=== PATIENT | male | born 1965 | race Caucasian/White ===

== ENCOUNTER 2016-11-12 11:15 | Inpatient (IN) | payer OTHER ==
[2016-11-12 11:52] VITALS: BMI 22.7
[2016-11-12 14:19] LABS: BASOPHIL 0.5 % (0-2.0); EOSINOPHIL 0.1 % (0-4.5); MCH 21.5 pg (25.7-33.7); MCHC 31.2 g/dl (32.0-35.9); MEAN PLT VOLUME 7.2 fl (7.5-11.1); NEUTROPHILS 86.2 % (42.8-82.8); PLATELET COUNT 392 K/MM3 (134-434); RDW 19.6 % (11.9-15.9); WHITE BLOOD COUNT 19.5 K/mm3 (4.0-10.0)
--- NOTE | 2016-11-12 14:27 | PDOC ---
History of Present Illness - General History Source: Patient Exam Limitations: No Limitations, Other (level T6 paraplegic, with no sensation below level T6) - History of Present Illness Initial Comments: 51yo M with PMH of level T6 paraplegia and recurrent UTIs presents c/o cough and malaise x 10 days. Cough is nonproductive. Pt reports malaise waxing and waning over the past 10 days. His symptoms are not worsening, but he presents to the ER today because he knows he is sick. Pt reports cloudy urine in permanent hull bag, and believes he has a UTI 2/2 hx of recurrent UTIs. Pt denies sick contacts, fever, chills, hemoptysis, chest pain, SOB, nausea, vomiting, constipation, diarrhea. Severity: mild Associated Symptoms: reports: cough, malaise. denies: chest pain, fever/chills , nausea/vomiting, shortness of breath, weakness <Jasmine Pandey - Last Filed: 11/12/16 18:09> <Denys Garner - Last Filed: 11/13/16 09:55> - General Chief Complaint: Respiratory Stated Complaint: cough, malaise Time Seen by Provider: 11/12/16 12:54 Past History - Past Medical History Anemia: Yes Asthma: No Cancer: No Cardiac Disorders: No CVA: No COPD: Yes CHF: No Dementia: No Diabetes: No GI Disorders: Yes (neurogenic bowel with persistent obstipation, GI bleed, cholelithiasis) Disorders: Yes (neurogenic bladder, UTIs, permanent hull) HTN: No Hypercholesterolemia: No Kidney Stones: Yes (haley staghorn calculi, haley stents) Liver Disease: No Seizures: No Thyroid Disease: No - Surgical History Abdominal Surgery: No Appendectomy: No Cardiac Surgery: No Cholecystectomy: No Lung Surgery: No Neurologic Surgery: No Orthopedic Surgery: Yes - Family Disease History Family Disease History: Diabetes: Mother, Heart Disease: Father - Immunization History Immunization Up to Date: Yes - Psycho/Social/Smoking Cessation Hx Anxiety: No Suicidal Ideation: No Smoking Status: Yes Smoking History: Current every day smoker Years of Tobacco Use: 35 Have you smoked in the past 12 months: Yes Number of Cigarettes Smoked Daily: 10 Information on smoking cessation initiated: No 'Breaking Loose' booklet given: 06/08/15 Hx Alcohol Use: No Drug/Substance Use Hx: No Substance Use Type: None Hx Substance Use Treatment: No Comments:: lives with mother. 11/12/16 14:32 <Jasmine Pandey - Last Filed: 11/12/16 18:09> <PascualDenys - Last Filed: 11/13/16 09:55> - Past Medical History Allergies/Adverse Reactions: Allergies Allergy/AdvReac Type Severity Reaction Status Date / Time polymyxin B AdvReac Mild Itching Verified 11/12/16 19:30 Home Medications: Ambulatory Orders Acetaminophen [Tylenol .Regular Strength -] 650 mg PO Q6H PRN #0 tablet Mineral Oil - 30 ml PO DAILY PRN #300 ml 11/04/15 Review of Systems - Review of Systems Able to Perform ROS?: Yes Constitutional: Yes: Malaise, Weight Stable. No: Chills, Fever, Weakness HEENTM: No: Eye Pain, Recent change in vision, Ear Pain, Nose Pain, Throat Pain , Mouth Pain Respiratory: Yes: Cough, Wheezing. No: Orthopnea, Shortness of Breath, Stridor , Hemoptysis Cardiac (ROS): No: Chest Pain, Edema, Irregular Heart Rate, Lightheadedness, Palpitations, Chest Tightness ABD/GI: No: Abd. Pain w/ defecation, Constipated, Diarrhea, Nausea, Vomiting : No: Hematuria Musculoskeletal: Yes: Back Pain (musculoskeletal pain between shoulder blades). No: Joint Pain, Muscle Pain, Neck Pain Neurological: Yes: Pre-Existing Deficit (level T6 paraplegia) <Jasmine Pandey - Last Filed: 11/12/16 18:09> *Physical Exam - Vital Signs Last Vital Signs Temp Pulse Resp BP Pulse Ox 98.8 F 87 16 130/78 96 11/12/16 11:41 11/12/16 11:41 11/12/16 11:41 11/12/16 11:41 11/12/16 11:41 - Physical Exam General Appearance: Yes: Mild Distress, Thin HEENT: positive: EOMI, Normal Voice, Other (moist mucous membranes). negative: Pale Conjunctivae Neck: positive: Trachea midline, Supple. negative: Carotid bruit Respiratory/Chest: negative: Accessory Muscle Use (inspiratory/expiratory wheezing throughout Right lung, Left lung clear to auscultation ) Cardiovascular: positive: Regular Rhythm, Regular Rate, Murmur (2/6 holosystolic murmur appreciated) Gastrointestinal/Abdominal: negative: Tender (firm, perhaps some stool in LLQ), Distended, Guarding Musculoskeletal: positive: Other (level T6 paraplegia, with paralysis below level T6. Upper extremeties with normal ROM.) Neurologic: positive: Fully Oriented, Alert, Normal Mood/Affect <Jasmine Pandey - Last Filed: 11/12/16 18:09> - Vital Signs Last Vital Signs Temp Pulse Resp BP Pulse Ox 99.9 F H 95 H 20 96/55 96 11/13/16 09:18 11/13/16 09:18 11/13/16 09:18 11/13/16 09:18 11/12/16 22:00 <Denys Garner - Last Filed: 11/13/16 09:55> ED Treatment Course - LABORATORY CBC & Chemistry Diagram: 11/12/16 Unknown 11/12/16 Unknown - RADIOLOGY Radiology Studies Ordered: Category Date Time Status CXRPORT [CHEST X-RAY PORTABLE*] [RAD] Stat Radiology 11/12/16 12:44 Completed Chest X-Ray Result: Other (no interval change since 10/2015 study. pre-existing extensive haley pulmonary calcifications noted. no evidence of CHF, pleural effusion, or acute consolidation.) <Jasmine Pandey - Last Filed: 11/12/16 18:09> - LABORATORY CBC & Chemistry Diagram: 11/13/16 09:05 11/12/16 Unknown - Medications Given in the ED: ED Medications Discontinued Medications Generic Name Dose Route Start Last Admin Trade Name Eli PRN Reason Stop Dose Admin Ertapenem 1 gm 11/12/16 16:30 11/12/16 16:49 Invanz (Pre-Docked) IVPB 1 gm DAILY GISEL Administration Vancomycin HCl 1,250 mg/ 250 mls @ 250 mls/hr 11/12/16 17:00 11/12/16 17:01 Dextrose IVPB 250 mls/hr BID GISEL Administration Protocol Vancomycin HCl 1,250 mg/ 250 mls @ 250 mls/hr 11/13/16 05:00 11/13/16 05:08 Dextrose IVPB 11/13/16 05:59 250 mls/hr ONCE ONE Administration Protocol <Denys Garner - Last Filed: 11/13/16 09:55> Medical Decision Making - Medical Decision Making 51yo M current smoker with PMH of level T6 paraplegia and recurrent UTIs presents c/o cough and malaise x 10 days. Cough is nonproductive. Denies hemoptysis, orthopnea, SOB, chest pain, fever, sick contacts. Pt reports he also likely has a UTI as his urine is cloudy. Pt is paralyzed below level of T6 and cannot report tenderness on physical exam below this level. Abdomen felt firm on exam, perhaps some stool present in LLQ. Pt denies constipation and reports regular BMs yesterday and today. Also on exam, a 2/6 holosystolic murmur was appreciated. Echo results pending. ER Course: CXR (-) for acute pulmonary disease CBC with diff, CMP, blood cultures, U/A, urine cultures Echo ordered 11/12/16 14:59 11/12/16 16:20 CBC with diff reveals leukocytosis (19.5) with left shift (neutrophils 86.2). U/A reveals (+) UTI. Urine culture pending. Vancomycin 1250mg IVPB BID and Ertapenem 1g IVPB daily ordered. <Jasmine Pandey - Last Filed: 11/12/16 18:09> *DC/Admit/Observation/Transfer - Discharge Dispostion Admit: Yes <Jasmine Pandey - Last Filed: 11/12/16 18:09> - Attestations Physician Attestion: 11/13/16 09:55 I, Dr. Denys Garner MD, attest that this document has been prepared under my direction and personally reviewed by me in its entirety. I further attest, that it accurately reflects all work, treatment, procedures and medical decision -making performed by me. 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 House, who accepted adm.
[2016-11-12 14:48] LABS: ANISOCYTOSIS 1+; HYPOCHROMIA 3+; MICROCYTOSIS 1+
[2016-11-12 14:59] LABS: ALBUMIN 2.2 g/dl (3.4-5.0); ANION GAP 11 (8-16); BILIRUBIN,TOTAL 0.4 mg/dL (0.2-1.0); CALCIUM 8.3 mg/dL (8.5-10.1); CO2 25 mmol/L (21-32); CREATININE 1.2 mg/dL (0.7-1.3); GLUCOSE,RANDOM 138 mg/dL (74-106); SGOT/AST 21 U/L (15-37); SGPT/ALT 23 U/L (12-78); TOT PROT 7.4 g/dl (6.4-8.2)
[2016-11-12 15:00] LABS: ALK PHOS 128 U/L (45-117)
[2016-11-12 15:46] LABS: URINE APPEARANCE CLOUDY; URINE BILIRUBIN NEGATIVE (NEGATIVE); URINE BLOOD 2+ (NEGATIVE); URINE COLOR AMBER; URINE GLUCOSE (UA) NEGATIVE (NEGATIVE); URINE KETONE NEGATIVE (NEGATIVE); URINE NITRITE POSITIVE (NEGATIVE); URINE UROBILINOGEN NEGATIVE mg/dL (0.2-1.0)
[2016-11-12 15:47] LABS: URINE LEUK ESTERASE 3+ (NEGATIVE); URINE PROTEIN 2+ (NEGATIVE)
[2016-11-12 15:52] LABS: URINE BACTERIA MANY /hpf (NONE SEEN); URINE RBC 39 /hpf (0-3); URINE WBC 1649 /hpf (3-5)
--- NOTE | 2016-11-12 16:21 | PDOC ---
Attending Attestation - Resident Resident Name: David Pandeya - ED Attending Attestation I have performed the following: I have examined & evaluated the patient, The case was reviewed & discussed with the resident, I agree w/resident's findings & plan, Exceptions are as noted - HPI HPI: 11/12/16 18:27 51 M with h/o T6 paraplegia and recurrent UTIs presents to ER with generalized malaise. Pt states that he has had some chills, as well as a dry cough. He denies any CP/SOB. Denies abdominal pain or flank pain but states that he is unable to feel anything below his chest. Pt has indwelling hull and has recurrent UTIs. Pt states that he feels as though he has another UTI. Denies N/ V. Denies diarrhea/constipation. - Physicial Exam PE: 11/12/16 18:29 "GENERAL: Awake, alert, and fully oriented, in no acute distress HEAD: No signs of trauma EYES: PERRLA, EOMI, sclera anicteric, conjunctiva clear ENT: Auricles normal inspection, hearing grossly normal, nares patent, oropharynx clear without exudates. Moist mucosa NECK: Normal ROM, supple, no lymphadenopathy, JVD, or masses LUNGS: Breath sounds equal, clear to auscultation bilaterally. No wheezes, and no crackles HEART: Regular rate and rhythm, normal S1 and S2, no murmurs, rubs or gallops ABDOMEN: Soft, NONTENDER, normoactive bowel sounds. No guarding, no rebound. No masses EXTREMITIES: Normal range of motion, no edema. No clubbing or cyanosis. No cords, erythema, or tenderness NEUROLOGICAL: Cranial nerves II through XII grossly intact. normal speech, paraplegic SKIN: Warm, Dry, normal turgor, no rashes or lesions noted. " - Medical Decision Making 11/12/16 18:31 51 M with cough and generalized malaise. Concerning for infectious process, though pt with stable vitals. Likely UTI. Will also r/o PNA with CXR. Pt with soft abdomen, having normal BMs. - Labs, UA, cultures - CXR 11/12/16 18:32 Labs notable for UTI. Will start ertapenem and vancomycin based on prior sensitivities. Will need admission for IV abx and ID consult, as pt has grown zayas-resistant pseudomonas in prior urine cultures. Admit to hospitalist
[2016-11-12] MEDS ORDERED: ERTAPENEM SODIUM 1 GM/50 ML PRE-DOCKED IVPB SCH (16:30)
[2016-11-12] MEDS ORDERED: ERTAPENEM SODIUM 1 GM VIAL ONE (16:42)
[2016-11-12] MEDS ORDERED: VANCOMYCIN 1,250 MG in DEXTROSE 5%-WATER - 250 ML IVPB SCH ×2 (17:00→22:00)
[2016-11-12] MEDS: D5-1/2NS+20 MEQ KCL - 1,000 ML IV SCH (22:29)
[2016-11-12] MEDS: HEPARIN NA (PORCINE) 5,000 UNITS/ML 1ML VIAL SQ SCH (22:31)
[2016-11-12] MEDS: ACETAMINOPHEN 325 MG TABLET (FP) PO PRN (22:43)
[2016-11-13] MEDS ORDERED: VANCOMYCIN 1,250 MG in DEXTROSE 5%-WATER - 250 ML IVPB ONE (05:00)
[2016-11-13 09:34] LABS: BASOPHIL 0.3 % (0-2.0); EOSINOPHIL 0.2 % (0-4.5); MCH 21.2 pg (25.7-33.7); MCHC 30.8 g/dl (32.0-35.9); MEAN CELL VOLUME 68.8 fl (80-96); MEAN PLT VOLUME 7.1 fl (7.5-11.1); NEUTROPHILS 87.8 % (42.8-82.8); PLATELET COUNT 315 K/MM3 (134-434); RDW 19.4 % (11.9-15.9); WHITE BLOOD COUNT 17.7 K/mm3 (4.0-10.0)
[2016-11-13] MEDS ORDERED: ERTAPENEM SODIUM 1 GM in SODIUM CHLORIDE 50 ML IVPB SCH (10:00)
[2016-11-13] MEDS ORDERED: PT OWN MED DRAWER 7, Y5N ONE (10:21)
[2016-11-13 10:25] LABS: ALBUMIN 1.8 g/dl (3.4-5.0); ALK PHOS 110 U/L (45-117); ANION GAP 8 (8-16); BILIRUBIN,TOTAL 0.4 mg/dL (0.2-1.0); CALCIUM 8.2 mg/dL (8.5-10.1); CO2 28 mmol/L (21-32); GLUCOSE,RANDOM 149 mg/dL (74-106); SGOT/AST 15 U/L (15-37); SGPT/ALT 20 U/L (12-78); TOT PROT 6.3 g/dl (6.4-8.2)
[2016-11-13] MEDS: HEPARIN NA (PORCINE) 5,000 UNITS/ML 1ML VIAL SQ SCH ×3 (10:37→22:33)
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
--- NOTE | 2016-11-13 11:26 | PN ---
Progress Note, Physician Chief Complaint: ID Full note dictated Patient well known to me and discussed with Dr Wiley - Current Medication List Current Medications: Active Medications Acetaminophen (Tylenol -) 650 mg PO Q6H PRN PRN Reason: FEVER OR PAIN Last Admin: 11/12/16 22:43 Dose: 325 mg Heparin Sodium (Porcine) (Heparin -) 5,000 unit SQ BID [facility] Last Admin: 11/13/16 10:45 Dose: Not Given Potassium Chloride/Dextrose/Sod Cl (D5-1/2ns+20 Meq Kcl -) 1,000 mls @ 75 mls/ hr IV ASDIR [facility] Last Admin: 11/12/16 22:29 Dose: 75 mls/hr Vancomycin HCl 1,250 mg/ (Dextrose) 250 mls @ 250 mls/hr IVPB BID@0500,1700 GISEL PRN Reason: Protocol Ertapenem 1 gm/ Sodium (Chloride) 50 mls @ 50 mls/hr IVPB DAILY [facility] Last Admin: 11/13/16 10:36 Dose: 50 mls/hr Mineral Oil (Mineral Oil -) 30 ml PO DAILY PRN PRN Reason: CONSTIPATION - Objective Vital Signs: Vital Signs Temperature 99.9 F H 11/13/16 09:18 Pulse Rate 95 H 11/13/16 09:18 Respiratory Rate 20 11/13/16 09:18 Blood Pressure 96/55 11/13/16 09:18 O2 Sat by Pulse Oximetry (%) 96 11/12/16 22:00 Labs: CBC, BMP 11/13/16 09:05 11/13/16 09:05 Problem List - Problems (1) UTI (urinary tract infection) with pyuria Code(s): N39.0 - URINARY TRACT INFECTION, SITE NOT SPECIFIED (2) Infection with multi-drug resistant microorganisms Code(s): Z16.35 - RESISTANCE TO MULTIPLE ANTIMICROBIAL DRUGS Assessment/Plan ASSESSMENT Microbiology 11/07/15 12:00 Urine - Urine Nephrostomy Tube Urine Culture - Final Pseudomonas Aeruginosa 11/07/15 12:00 Urine - Urine Nephrostomy Tube Urine Culture - Final Pseudomonas Aeruginosa 07/02/16 14:00 Buttock - Right Gram Stain - Final 07/02/16 14:00 Buttock - Right Wound Culture - Final Klebsiella Pneumoniae - Esbl Acinetobacter Baumannii/Haemol Mr S Aureus Enterococcus Faecalis Laboratory Tests 11/12/16 11/12/16 11/12/16 15:15 Unknown Unknown WBC 19.5 H D Hgb 10.7 L D Hct 34.1 L D Plt Count 392 D BUN 26 H Creatinine 1.2 Creat Clearance w eGFR > 60 Ur Leukocyte Esterase 3+ H Urine RBC 39 Urine WBC 1649 Urine Bacteria Many UTI history of multidrug resistant organisms Pseudomonas Plan For now Meropenem and Amikacin Sarah LUX
--- NOTE | 2016-11-13 12:24 | CONS ---
DATE OF CONSULTATION: HISTORY: This is one of multiple admissions for this 51-year-old male with a history of longstanding T6 polyplegia and recurrent urinary tract infections with multidrug-resistant organisms including pseudomonas in 2016. He has had recurrent urinary tract infections, and in October 2015, had undergone a placement of a left percutaneous nephrostomy. He also is familiar with Dr. Moisés Oro, his urologist of many years. Currently he was admitted with fever and leukocytosis. The patient was empirically treated with ertapenem, and cultures of blood and urine are pending. PAST MEDICAL HISTORY: Includes T6 paraplegia, recurrent urinary tract infection, multidrug-resistant organism, history of neurogenic bowel with persistent obstipation, history of renal calculi status post JJ bilateral stents, suprapubic catheter. He is a current smoker and has been HIV tested in the past, always negative. ALLERGIES: POLYMYXIN, although at the current time I need to do further investigation to find out the nature of the prior reaction. FAMILY HISTORY: Reviewed and noncontributory. PHYSICAL EXAMINATION: Vital Signs: Pulse rate 95, respirations 20, blood pressure 96/55, respirations 96. Lungs: Clear. Heart: S1, S2. Regular rhythm. Abdomen: Soft and nontender. Skin: Wound reveals a large sacral wound. Neurologic: Pre-existing paraplegia. The white count is 19.5, hemoglobin 10.7, platelets 329, BUN 26, creatinine 1.2. Urinalysis 3+ leukocyte esterase, 39 RBCs, 1600 WBCs, many bacteria noted. Cultures of blood and urine pending. Thus far, blood cultures no growth. Previous urine culture November 07, 2015 shows zayas-resistant pseudomonas. Chest x-ray from the emergency room, no interval change. No infiltrates seen. ASSESSMENT: A 51-year-old male with a history of multiple drug-resistant urinary tract infections status post JJ stent placement in the past as well as nephrostomy placement who presents now with recurrent urinary tract infection, history of multidrug-resistant organisms with zayas-resistant pseudomonas as well as extended-spectrum beta-lactamase, Klebsiella, methicillin-resistant Staphylococcus aureus, and vancomycin-resistant enterococcus from urine Pelaez catheter drainage previously. Difficult management from the standpoint of finding a suitable antibiotic for this man with multidrug-resistant organisms. For now, we will treat him with a combination of Meropenem and amikasin pending blood and urine cultures. He will be seen by Dr. Moisés Oro, and a renal sonogram has been ordered for him. JAMEY CALIXTO M.D. RAND/[id number]
[2016-11-13] MEDS: WATER IVPB SCH ×2 (13:10→23:34)
[2016-11-13] MEDS: AMIKACIN SULFATE IVPB SCH ×2 (13:10→23:34)
[2016-11-13] MEDS: DEXTROSE 5% IVPB SCH ×2 (13:10→23:34)
[2016-11-13] MEDS: MEROPENEM 500 MG in DEXTROSE 5%-WATER 100 ML IVPB SCH ×2 (15:59→21:45)
[2016-11-13] MEDS ORDERED: VANCOMYCIN 1,250 MG in DEXTROSE 5%-WATER - 250 ML IVPB SCH (17:00)
[2016-11-13] MEDS: ACETAMINOPHEN 325 MG TABLET (FP) PO PRN (22:31)
[2016-11-13] MEDS: D5-1/2NS+20 MEQ KCL - 1,000 ML IV SCH (22:34)
[2016-11-14] MEDS ORDERED: ACETAMINOPHEN 325 MG TABLET (FP) PO PRN (00:16)
[2016-11-14] MEDS: MEROPENEM 500 MG in DEXTROSE 5%-WATER 100 ML IVPB SCH ×4 (03:20→21:57)
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
[2016-11-14 09:21] LABS: CPK 14 IU/L (39-308); TROPONIN I < 0.02 ng/ml (0.00-0.05)
[2016-11-14] MEDS ORDERED: SODIUM CHLORIDE 100 ML IVPB ONE (09:44)
[2016-11-14] MEDS ORDERED: PANTOPRAZOLE SODIUM 40 MG VIAL ONE (09:44)
[2016-11-14] MEDS ORDERED: PT OWN MED DRAWER 7, Y5N ONE (09:44)
[2016-11-14] MEDS: POLYETHYLENE GLYCOL 3350 119 GM BTL PO SCH ×2 (09:56→21:58)
[2016-11-14] MEDS: WATER IVPB SCH ×2 (09:57→21:57)
[2016-11-14] MEDS: HEPARIN NA (PORCINE) 5,000 UNITS/ML 1ML VIAL SQ SCH ×2 (09:57→21:57)
[2016-11-14] MEDS: AMIKACIN SULFATE IVPB SCH ×2 (09:57→21:57)
[2016-11-14] MEDS: DEXTROSE 5% IVPB SCH ×2 (09:57→21:57)
[2016-11-14] MEDS: PANTOPRAZOLE SODIUM 40 MG in SODIUM CHLORIDE 100 ML IVPB SCH ×2 (09:58→21:58)
[2016-11-14] MEDS: MINERAL OIL 30 ML UNIT-DOSE CUP PO PRN (09:59)
--- NOTE | 2016-11-14 11:52 | PN ---
Progress Note (short form) - Note Progress Note: awake and alert not permitting examination of sacral ulcer Vital Signs Period Temp Pulse Resp BP Sys/Vu Pulse Ox Last 24 Hr 97.8 F-102.2 F 87-105 18-22 100-122/60-76 94 cor-rrr lungs clear, decreased bs at bases abd firm, nt ext no edema hull with cloudy urine unable to see decub ulcer CBC, BMP 11/13/16 09:05 11/13/16 09:05 Microbiology 11/12/16 14:00 Blood - Peripheral Venous Blood Culture - Preliminary NO GROWTH OBTAINED AFTER 24 HOURS, INCUBATION TO CONTINUE FOR 4 DAYS. 11/12/16 14:00 Blood - Peripheral Venous Blood Culture - Preliminary NO GROWTH OBTAINED AFTER 24 HOURS, INCUBATION TO CONTINUE FOR 4 DAYS. a/p fevers- cultures pending urology and plastic surgery consults pending started on meropenem and amikacin check amikacin trough f/u cultures history of renal stones history of sacral ulcer paraplegia History of MDR oganisms strict isolation dedicated equipment- d/w nursing staff
--- NOTE | 2016-11-14 12:58 | PN ---
Progress Note (short form) - Note Progress Note: chart reviwed pt well known to me h/o of neurogenic bladder, traumatic paraplegia and sacral ulcers refusing spt has h/o bl pnlt (perc lithotrypsy) h/o b/l staghorn calculi bladder stones rec uti kub and us appreciated please place gu tray at bedside for this afternoon
[2016-11-14] MEDS ORDERED: TRIPLE LUMEN FLUSH 4 ML ML IVPUSH PRN (15:11)
[2016-11-14 18:22] LABS: CPK 18 IU/L (39-308)
[2016-11-14 18:23] LABS: TROPONIN I < 0.02 ng/ml (0.00-0.05)
[2016-11-14] MEDS: D5-1/2NS+20 MEQ KCL - 1,000 ML IV SCH (21:57)
[2016-11-15] MEDS: MEROPENEM 500 MG in DEXTROSE 5%-WATER 100 ML IVPB SCH ×4 (06:25→22:21)
[2016-11-15 08:23] LABS: MCH 21.4 pg (25.7-33.7); MCHC 30.7 g/dl (32.0-35.9); MEAN CELL VOLUME 69.5 fl (80-96); MEAN PLT VOLUME 7.4 fl (7.5-11.1); PLATELET COUNT 305 K/MM3 (134-434); RDW 18.7 % (11.9-15.9); WHITE BLOOD COUNT 21.1 K/mm3 (4.0-10.0)
[2016-11-15 08:48] LABS: ANION GAP 9 (8-16); CALCIUM 7.9 mg/dL (8.5-10.1); CO2 28 mmol/L (21-32); CREATININE 1.1 mg/dL (0.7-1.3); GLUCOSE,RANDOM 84 mg/dL (74-106)
--- NOTE | 2016-11-15 09:40 | PN ---
Progress Note (short form) - Note Progress Note: ID Meropenem and Amikacin Low grade fevers and persistant leukocytosis Selected Entries 11/15/16 11/15/16 11/15/16 00:30 01:43 06:30 Temperature 100.6 F H 99.6 F 99.3 F Pulse Rate 100 H Respiratory 19 Rate Blood Pressure 106/62 Microbiology 11/12/16 15:15 Urine - Urine Pelaez Urine Culture - Final Contaminated: Please Repeat 11/12/16 14:00 Blood - Peripheral Venous Blood Culture - Preliminary NO GROWTH OBTAINED AFTER 48 HOURS, INCUBATION TO CONTINUE FOR 3 DAYS. 11/12/16 14:00 Blood - Peripheral Venous Blood Culture - Preliminary NO GROWTH OBTAINED AFTER 48 HOURS, INCUBATION TO CONTINUE FOR 3 DAYS. Laboratory Tests 11/12/16 11/15/16 11/15/16 15:15 06:05 06:05 WBC 21.1 H Hgb 8.9 L Plt Count 305 BUN 21 H Creatinine 1.1 Ur Leukocyte Esterase 3+ H Urine RBC 39 Urine WBC 1649 Assessment Urinary tract infection/ Hydronephrosis/ Needs decompression nephrostomies Plan Antibiotic Repeat c/s Await urology follow up re management Sarah LUX Problem List - Problems (1) UTI (urinary tract infection) with pyuria Code(s): N39.0 - URINARY TRACT INFECTION, SITE NOT SPECIFIED (2) Infection with multi-drug resistant microorganisms Code(s): Z16.35 - RESISTANCE TO MULTIPLE ANTIMICROBIAL DRUGS
[2016-11-15 10:08] LABS: PLATELET ESTIMATE ADEQUATE (NORMAL); TOTAL CELLS COUNTED 100
[2016-11-15 10:09] LABS: ANISOCYTOSIS 1+; HYPOCHROMIA 2+; MICROCYTOSIS 1+; POLYCHROMASIA 1+
[2016-11-15] MEDS: POLYETHYLENE GLYCOL 3350 119 GM BTL PO SCH ×3 (11:06→22:20)
[2016-11-15] MEDS: AMIKACIN SULFATE IVPB SCH ×3 (11:06→22:18)
[2016-11-15] MEDS: HEPARIN NA (PORCINE) 5,000 UNITS/ML 1ML VIAL SQ SCH ×2 (11:06→22:20)
[2016-11-15] MEDS: WATER IVPB SCH ×3 (11:06→22:18)
[2016-11-15] MEDS: DEXTROSE 5% IVPB SCH ×3 (11:06→22:18)
[2016-11-15] MEDS: PANTOPRAZOLE SODIUM 40 MG in SODIUM CHLORIDE 100 ML IVPB SCH ×2 (11:06→22:20)
--- NOTE | 2016-11-15 13:51 | EKG ---
Test Reason : Blood Pressure : / mmHG Vent. Rate : 095 BPM Atrial Rate : 095 BPM P-R Int : 132 ms QRS Dur : 104 ms QT Int : 358 ms P-R-T Axes : 057 061 045 degrees QTc Int : 449 ms NORMAL SINUS RHYTHM INFEROLATERAL INFARCT OF INDETERMINATE AGE,POSSIBILYRECENT ABNORMAL ECG WHEN COMPARED WITH ECG OF 29-OCT-2015 12:24, NO SIGNIFICANT CHANGE WAS FOUND REPEAT EKG IF CLINICALLY INDICATED Confirmed by EDMUND GERMAN MD ([id number]) on 11/15/2016 1:51:12 PM Referred By: WILLIAMS FALK Confirmed By:EDMUND GERMAN MD
--- NOTE | 2016-11-15 15:32 | PN ---
Progress Note, Physician Chief Complaint: UTI History of Present Illness: alert and oriented, NAD, in bed, complaining of sharp stabbing intermittent back pain which is chronic in nature. Awaiting Urology to come and change hull catheter. - Current Medication List Current Medications: Active Medications Acetaminophen (Tylenol -) 650 mg PO Q4H PRN PRN Reason: FEVER OR PAIN Last Admin: 11/15/16 00:30 Dose: 650 mg Gabapentin (Neurontin -) 100 mg PO DAILY [facility] Heparin Sodium (Porcine) (Heparin -) 5,000 unit SQ BID [facility] Last Admin: 11/15/16 11:06 Dose: Not Given IV Flush (Triple Lumen Flush) 4 ml IVPUSH PRN PRN PRN Reason: Protocol Potassium Chloride/Dextrose/Sod Cl (D5-1/2ns+20 Meq Kcl -) 1,000 mls @ 75 mls/ hr IV ASDIR [facility] Last Admin: 11/14/16 21:57 Dose: Not Given Amikacin Sulfate 450 mg/ (Dextrose) 101.8 mls @ 101.8 mls/hr IVPB BID [facility] Last Admin: 11/15/16 11:06 Dose: Not Given Meropenem 500 mg/ Dextrose 100 mls @ 200 mls/hr IVPB Q6H-IV [facility] Last Admin: 11/15/16 14:22 Dose: Not Given Pantoprazole Sodium 40 mg/ (Sodium Chloride) 100 mls @ 200 mls/hr IVPB BID [facility] Last Admin: 11/15/16 11:06 Dose: Not Given Mineral Oil (Mineral Oil -) 30 ml PO DAILY PRN PRN Reason: CONSTIPATION Last Admin: 11/14/16 09:59 Dose: 30 ml Polyethylene Glycol (Miralax (For Daily Use) -) 17 gm PO BID [facility] Last Admin: 11/15/16 14:05 Dose: 17 grams - Objective Vital Signs: Vital Signs Temperature 98.5 F 11/15/16 14:30 Pulse Rate 96 H 11/15/16 14:30 Respiratory Rate 18 11/15/16 14:30 Blood Pressure 107/64 11/15/16 14:30 O2 Sat by Pulse Oximetry (%) 95 11/15/16 09:00 Constitutional: Yes: Well Nourished, No Distress, Calm Cardiovascular: Yes: Regular Rate and Rhythm Respiratory: Yes: Regular Neurological: Yes: Alert, Oriented Labs: CBC, BMP 11/15/16 06:05 11/15/16 06:05 Problem List - Problems (1) Chronic indwelling Hull catheter Assessment/Plan: awaiting urology to change hull Code(s): Z92.89 - PERSONAL HISTORY OF OTHER MEDICAL TREATMENT (2) Infection with multi-drug resistant microorganisms Assessment/Plan: Microbiology 11/12/16 14:00 Blood - Peripheral Venous Blood Culture - Preliminary NO GROWTH OBTAINED AFTER 72 HOURS, INCUBATION TO CONTINUE FOR 2 DAYS. 11/12/16 14:00 Blood - Peripheral Venous Blood Culture - Preliminary NO GROWTH OBTAINED AFTER 72 HOURS, INCUBATION TO CONTINUE FOR 2 DAYS. 11/12/16 15:15 Urine - Urine Hull Urine Culture - Final Contaminated: Please Repeat -contact isolation -ID on board -repeat urine, -wbc trending up -BC negative Code(s): Z16.35 - RESISTANCE TO MULTIPLE ANTIMICROBIAL DRUGS (3) Neurogenic bladder Code(s): N31.9 - NEUROMUSCULAR DYSFUNCTION OF BLADDER, UNSPECIFIED (4) Paraplegia following spinal cord injury Code(s): G82.20 - PARAPLEGIA, UNSPECIFIED (5) UTI (urinary tract infection) with pyuria Assessment/Plan: -iv abx -ID on board -repeat urine, wbc trending up Code(s): N39.0 - URINARY TRACT INFECTION, SITE NOT SPECIFIED (6) Back pain Assessment/Plan: -will try gabapentin for pain Code(s): M54.9 - DORSALGIA, UNSPECIFIED Qualifiers: Back pain location: thoracic back pain Back pain laterality: bilateral (7) Constipation Assessment/Plan: miralax BID enema PRN Code(s): K59.00 - CONSTIPATION, UNSPECIFIED Qualifiers: Constipation type: unspecified constipation type Qualified Code(s): K59.00 - Constipation, unspecified Assessment/Plan see problem list
[2016-11-15] MEDS: GABAPENTIN 100 MG CAPSULE (FP) PO SCH (17:33)
[2016-11-15] MEDS: MINERAL OIL 30 ML UNIT-DOSE CUP PO PRN (17:34)
[2016-11-15] MEDS ORDERED: PT OWN MED DRAWER 7, Y5N ONE (20:51)
[2016-11-15] MEDS ORDERED: PANTOPRAZOLE SODIUM 40 MG VIAL ONE (20:52)
[2016-11-15] MEDS ORDERED: SODIUM CHLORIDE 100 ML IVPB ONE (20:52)
[2016-11-15] MEDS: D5-1/2NS+20 MEQ KCL - 1,000 ML IV SCH (22:20)
[2016-11-16] MEDS: MEROPENEM 500 MG in DEXTROSE 5%-WATER 100 ML IVPB SCH ×4 (02:25→20:39)
[2016-11-16] MEDS ORDERED: SODIUM CHLORIDE 100 ML IVPB ONE ×2 (10:45→21:01)
[2016-11-16] MEDS ORDERED: PANTOPRAZOLE SODIUM 40 MG VIAL ONE ×2 (10:45→21:01)
[2016-11-16] MEDS ORDERED: PT OWN MED DRAWER 7, Y5N ONE ×3 (10:46→21:00)
[2016-11-16] MEDS: GABAPENTIN 100 MG CAPSULE (FP) PO SCH (10:58)
[2016-11-16] MEDS: PANTOPRAZOLE SODIUM 40 MG in SODIUM CHLORIDE 100 ML IVPB SCH ×2 (10:58→21:56)
[2016-11-16] MEDS: HEPARIN NA (PORCINE) 5,000 UNITS/ML 1ML VIAL SQ SCH ×2 (10:59→23:07)
[2016-11-16] MEDS: POLYETHYLENE GLYCOL 3350 119 GM BTL PO SCH ×2 (11:02→23:07)
[2016-11-16] MEDS: DEXTROSE 5% IVPB SCH ×2 (11:06→23:01)
[2016-11-16] MEDS: WATER IVPB SCH ×2 (11:06→23:01)
[2016-11-16] MEDS: AMIKACIN SULFATE IVPB SCH ×2 (11:06→23:01)
[2016-11-16] MEDS ORDERED: PICC LINE 8 ML FLUSH PROTOCOL IVPUSH PRN (12:53)
--- NOTE | 2016-11-16 12:56 | PN ---
Progress Note, Physician Chief Complaint: UTI, decubitus ulcer History of Present Illness: alert and oriented, NAD, in bed, complaining of sharp stabbing intermittent back pain which is chronic in nature. Awaiting Urology to come and change hull catheter. started on gabapentin - Current Medication List Current Medications: Active Medications Acetaminophen (Tylenol -) 650 mg PO Q4H PRN PRN Reason: FEVER OR PAIN Last Admin: 11/15/16 00:30 Dose: 650 mg Gabapentin (Neurontin -) 100 mg PO DAILY [facility] Last Admin: 11/16/16 10:58 Dose: 100 mg Heparin Sodium (Porcine) (Heparin -) 5,000 unit SQ BID [facility] Last Admin: 11/16/16 10:59 Dose: Not Given IV Flush (Triple Lumen Flush) 4 ml IVPUSH PRN PRN PRN Reason: Protocol IV Flush (Picc Line Flush) 8 ml IVPUSH PRN PRN PRN Reason: Protocol Potassium Chloride/Dextrose/Sod Cl (D5-1/2ns+20 Meq Kcl -) 1,000 mls @ 75 mls/ hr IV ASDIR [facility] Last Admin: 11/15/16 22:20 Dose: 75 mls/hr Amikacin Sulfate 450 mg/ (Dextrose) 101.8 mls @ 101.8 mls/hr IVPB BID [facility] Last Admin: 11/16/16 11:06 Dose: 101.8 mls/hr Meropenem 500 mg/ Dextrose 100 mls @ 200 mls/hr IVPB Q6H-IV [facility] Last Admin: 11/16/16 10:58 Dose: 200 mls/hr Pantoprazole Sodium 40 mg/ (Sodium Chloride) 100 mls @ 200 mls/hr IVPB BID [facility] Last Admin: 11/16/16 10:58 Dose: 200 mls/hr Mineral Oil (Mineral Oil -) 30 ml PO DAILY PRN PRN Reason: CONSTIPATION Last Admin: 11/15/16 17:34 Dose: 30 ml Polyethylene Glycol (Miralax (For Daily Use) -) 17 gm PO BID [facility] Last Admin: 11/16/16 11:02 Dose: 17 grams - Objective Vital Signs: Vital Signs Temperature 98.4 F 11/16/16 01:00 Pulse Rate 89 11/16/16 07:00 Respiratory Rate 18 11/16/16 08:59 Blood Pressure 117/71 11/16/16 07:00 O2 Sat by Pulse Oximetry (%) 93 L 11/16/16 08:59 Constitutional: Yes: Well Nourished, No Distress, Calm Cardiovascular: Yes: Regular Rate and Rhythm Respiratory: Yes: Regular Wound/Incision: Yes: Dressing Dry and Intact Neurological: Yes: Alert, Oriented Psychiatric: Yes: Alert, Oriented Labs: CBC, BMP 11/15/16 06:05 11/15/16 06:05 Problem List - Problems (1) Chronic indwelling Hull catheter Assessment/Plan: awaiting urology to change hull Code(s): Z92.89 - PERSONAL HISTORY OF OTHER MEDICAL TREATMENT (2) Infection with multi-drug resistant microorganisms Assessment/Plan: Microbiology 11/12/16 14:00 Blood - Peripheral Venous Blood Culture - Preliminary NO GROWTH OBTAINED AFTER 72 HOURS, INCUBATION TO CONTINUE FOR 2 DAYS. 11/12/16 14:00 Blood - Peripheral Venous Blood Culture - Preliminary NO GROWTH OBTAINED AFTER 72 HOURS, INCUBATION TO CONTINUE FOR 2 DAYS. 11/12/16 15:15 Urine - Urine Hull Urine Culture - Final Contaminated: Please Repeat -contact isolation -ID on board -repeat urine, -wbc trending up -BC negative Code(s): Z16.35 - RESISTANCE TO MULTIPLE ANTIMICROBIAL DRUGS (3) Neurogenic bladder Code(s): N31.9 - NEUROMUSCULAR DYSFUNCTION OF BLADDER, UNSPECIFIED (4) Paraplegia following spinal cord injury Code(s): G82.20 - PARAPLEGIA, UNSPECIFIED (5) UTI (urinary tract infection) with pyuria Assessment/Plan: -iv abx -ID on board -repeat urine, wbc trending up Code(s): N39.0 - URINARY TRACT INFECTION, SITE NOT SPECIFIED (6) Back pain Assessment/Plan: -gabapentin for pain Code(s): M54.9 - DORSALGIA, UNSPECIFIED Qualifiers: Back pain location: thoracic back pain Back pain laterality: bilateral (7) Constipation Assessment/Plan: miralax BID enema PRN Code(s): K59.00 - CONSTIPATION, UNSPECIFIED Qualifiers: Constipation type: unspecified constipation type Qualified Code(s): K59.00 - Constipation, unspecified Assessment/Plan see problem list
[2016-11-16] MEDS: D5-1/2NS+20 MEQ KCL - 1,000 ML IV SCH (20:48)
[2016-11-17] MEDS ORDERED: PT OWN MED DRAWER 7, Y5N ONE ×3 (02:31→22:00)
[2016-11-17] MEDS: MEROPENEM 500 MG in DEXTROSE 5%-WATER 100 ML IVPB SCH ×4 (02:33→21:52)
[2016-11-17 07:17] LABS: BASOPHIL 0.3 % (0-2.0); EOSINOPHIL 0.5 % (0-4.5); MCH 21.4 pg (25.7-33.7); MCHC 30.8 g/dl (32.0-35.9); MEAN CELL VOLUME 69.4 fl (80-96); MEAN PLT VOLUME 7.4 fl (7.5-11.1); NEUTROPHILS 84.5 % (42.8-82.8); PLATELET COUNT 305 K/MM3 (134-434); RDW 18.4 % (11.9-15.9); WHITE BLOOD COUNT 14.8 K/mm3 (4.0-10.0)
[2016-11-17 07:44] LABS: ALBUMIN 1.6 g/dl (3.4-5.0); ANION GAP 8 (8-16); CO2 28 mmol/L (21-32); GLUCOSE,RANDOM 101 mg/dL (74-106); SGOT/AST 70 U/L (15-37)
[2016-11-17 07:46] LABS: ALK PHOS 122 U/L (45-117); BILIRUBIN,TOTAL 0.5 mg/dL (0.2-1.0); CREATININE 1.1 mg/dL (0.7-1.3); SGPT/ALT 54 U/L (12-78); TOT PROT 6.5 g/dl (6.4-8.2)
[2016-11-17] MEDS: AMIKACIN SULFATE IVPB SCH (09:57)
[2016-11-17] MEDS: DEXTROSE 5% IVPB SCH (09:57)
[2016-11-17] MEDS: WATER IVPB SCH (09:57)
--- NOTE | 2016-11-17 10:08 | PN ---
Progress Note (short form) - Note Progress Note: ID Meropenem and Amikacin Day 4 therapy Selected Entries 11/16/16 11/17/16 18:00 06:00 Temperature 100.8 F H 98.9 F Pulse Rate 81 Respiratory 20 Rate Blood Pressure 116/76 Microbiology 11/12/16 15:15 Urine - Urine Pelaez Urine Culture - Final Contaminated: Please Repeat 11/12/16 14:00 Blood - Peripheral Venous Blood Culture - Preliminary NO GROWTH OBTAINED AFTER 96 HOURS, INCUBATION TO CONTINUE FOR 1 DAYS. 11/12/16 14:00 Blood - Peripheral Venous Blood Culture - Preliminary NO GROWTH OBTAINED AFTER 96 HOURS, INCUBATION TO CONTINUE FOR 1 DAYS. Laboratory Tests 11/17/16 11/17/16 06:00 06:00 WBC 14.8 H Hgb 8.5 L Hct 27.7 L Plt Count 305 BUN 24 H Assessment Recurrent urinary infection with hydronephrosis and calculi Plan Stop Amikacin Repeat urine c/s Continue Meropenem Interventional evaluation Sarah LUX Problem List - Problems (1) UTI (urinary tract infection) with pyuria Code(s): N39.0 - URINARY TRACT INFECTION, SITE NOT SPECIFIED (2) Infection with multi-drug resistant microorganisms Code(s): Z16.35 - RESISTANCE TO MULTIPLE ANTIMICROBIAL DRUGS
[2016-11-17] MEDS: HEPARIN NA (PORCINE) 5,000 UNITS/ML 1ML VIAL SQ SCH ×2 (10:20→21:55)
[2016-11-17] MEDS ORDERED: SODIUM CHLORIDE 100 ML IVPB ONE ×2 (10:21→20:18)
[2016-11-17] MEDS ORDERED: PANTOPRAZOLE SODIUM 40 MG VIAL ONE ×2 (10:21→20:18)
[2016-11-17] MEDS: PANTOPRAZOLE SODIUM 40 MG in SODIUM CHLORIDE 100 ML IVPB SCH ×2 (11:34→22:28)
[2016-11-17] MEDS: GABAPENTIN 100 MG CAPSULE (FP) PO SCH (11:35)
[2016-11-17] MEDS: POLYETHYLENE GLYCOL 3350 119 GM BTL PO SCH ×2 (11:35→21:57)
--- NOTE | 2016-11-17 13:02 | PN ---
Progress Note (short form) - Note Progress Note: chart reviwed pt well known to me h/o of neurogenic bladder, traumatic paraplegia and sacral ulcers refusing spt has h/o bl pnlt (perc lithotrypsy) h/o b/l staghorn calculi bladder stones rec uti kub and us appreciated please place gu tray at bedside for this afternoon Hull changed w difficulty, 80cc of purulent urine drained, pt also in fecal impaction, was disimpacted abd is distended andf tympanitic, upper torso diaphoresis noted, this may be indicative of autonomic dysreflexia would suggest GI consult sri, possible deceompression, possible colostomy again pt refuses SPT, told of the sequale of permanent Hull drainage keep scrotum elevated and irrigate hull daily w 100cc of .25% acetic acid.
[2016-11-17] MEDS: D5-1/2NS+20 MEQ KCL - 1,000 ML IV SCH ×2 (15:09→20:00)
--- NOTE | 2016-11-17 20:28 | PN ---
Progress Note, Physician Chief Complaint: UTI, decubitus ulcer History of Present Illness: alert and oriented, NAD, in bed, complaining of sharp stabbing intermittent back pain which is chronic in nature. hull catheter changed by Urology with purulent drainage -was constipated, disimpaction done by urology -started on gabapentin -on IV abx - acetic acid flushes for hull - Current Medication List Current Medications: Active Medications Acetaminophen (Tylenol -) 650 mg PO Q4H PRN PRN Reason: FEVER OR PAIN Last Admin: 11/15/16 00:30 Dose: 650 mg Gabapentin (Neurontin -) 100 mg PO DAILY [facility] Last Admin: 11/17/16 11:35 Dose: 100 mg Heparin Sodium (Porcine) (Heparin -) 5,000 unit SQ BID [facility] Last Admin: 11/17/16 10:20 Dose: Not Given IV Flush (Triple Lumen Flush) 4 ml IVPUSH PRN PRN PRN Reason: Protocol IV Flush (Picc Line Flush) 8 ml IVPUSH PRN PRN PRN Reason: Protocol Potassium Chloride/Dextrose/Sod Cl (D5-1/2ns+20 Meq Kcl -) 1,000 mls @ 75 mls/ hr IV ASDIR [facility] Last Admin: 11/17/16 15:09 Dose: 75 mls/hr Meropenem 500 mg/ Dextrose 100 mls @ 200 mls/hr IVPB Q6H-IV [facility] Last Admin: 11/17/16 15:08 Dose: 200 mls/hr Pantoprazole Sodium 40 mg/ (Sodium Chloride) 100 mls @ 200 mls/hr IVPB BID [facility] Last Admin: 11/17/16 11:34 Dose: 200 mls/hr Mineral Oil (Mineral Oil -) 30 ml PO DAILY PRN PRN Reason: CONSTIPATION Last Admin: 11/15/16 17:34 Dose: 30 ml Polyethylene Glycol (Miralax (For Daily Use) -) 17 gm PO BID [facility] Last Admin: 11/17/16 11:35 Dose: 17 grams - Objective Vital Signs: Vital Signs Temperature 98.2 F 11/17/16 18:00 Pulse Rate 107 H 11/17/16 18:00 Respiratory Rate 20 11/17/16 18:00 Blood Pressure 102/67 11/17/16 18:00 O2 Sat by Pulse Oximetry (%) 95 11/17/16 09:00 Constitutional: Yes: Well Nourished, No Distress, Calm Cardiovascular: Yes: Regular Rate and Rhythm Respiratory: Yes: Regular Gastrointestinal: Yes: Normal Bowel Sounds Musculoskeletal: Yes: WNL Labs: CBC, BMP 11/17/16 06:00 11/17/16 06:00 Problem List - Problems (1) Chronic indwelling Hull catheter Assessment/Plan: -Hull changed by Urology with purulent urine -acetic acid flushes Code(s): Z92.89 - PERSONAL HISTORY OF OTHER MEDICAL TREATMENT (2) Infection with multi-drug resistant microorganisms Assessment/Plan: Microbiology 11/12/16 14:00 Blood - Peripheral Venous Blood Culture - Preliminary NO GROWTH OBTAINED AFTER 72 HOURS, INCUBATION TO CONTINUE FOR 2 DAYS. 11/12/16 14:00 Blood - Peripheral Venous Blood Culture - Preliminary NO GROWTH OBTAINED AFTER 72 HOURS, INCUBATION TO CONTINUE FOR 2 DAYS. 11/12/16 15:15 Urine - Urine Hull Urine Culture - Final Contaminated: Please Repeat -contact isolation -ID on board -repeat UC -wbc decreased today -BC negative Code(s): Z16.35 - RESISTANCE TO MULTIPLE ANTIMICROBIAL DRUGS (3) Neurogenic bladder Code(s): N31.9 - NEUROMUSCULAR DYSFUNCTION OF BLADDER, UNSPECIFIED (4) Paraplegia following spinal cord injury Code(s): G82.20 - PARAPLEGIA, UNSPECIFIED (5) UTI (urinary tract infection) with pyuria Assessment/Plan: -iv abx -ID on board -repeat urine, wbc decreased Code(s): N39.0 - URINARY TRACT INFECTION, SITE NOT SPECIFIED (6) Back pain Assessment/Plan: -gabapentin for pain Code(s): M54.9 - DORSALGIA, UNSPECIFIED Qualifiers: Back pain location: thoracic back pain Back pain laterality: bilateral (7) Constipation Assessment/Plan: -miralax BID -enema PRN -GI consult Code(s): K59.00 - CONSTIPATION, UNSPECIFIED Qualifiers: Constipation type: unspecified constipation type Qualified Code(s): K59.00 - Constipation, unspecified Assessment/Plan see problem list
[2016-11-17] MEDS: MINERAL OIL 30 ML UNIT-DOSE CUP PO PRN (22:01)
[2016-11-18] MEDS: MEROPENEM 500 MG in DEXTROSE 5%-WATER 100 ML IVPB SCH ×4 (02:10→22:06)
[2016-11-18] MEDS: D5-1/2NS+20 MEQ KCL - 1,000 ML IV SCH (02:12)
[2016-11-18 06:07] LABS: SERUM IRON 11 ug/dL (38-169); TOTAL IRON BINDING CAPACITY 178 ug/dL (250-450); UIBC 167 ug/dL (111-343)
[2016-11-18 08:02] LABS: ALBUMIN 1.5 g/dl (3.4-5.0); ALK PHOS 153 U/L (45-117); ANION GAP 9 (8-16); BILIRUBIN,TOTAL 0.6 mg/dL (0.2-1.0); CALCIUM 7.9 mg/dL (8.5-10.1); CO2 26 mmol/L (21-32); CREATININE 0.9 mg/dL (0.7-1.3); GLUCOSE,RANDOM 92 mg/dL (74-106); SGOT/AST 104 U/L (15-37); SGPT/ALT 86 U/L (12-78); TOT PROT 6.8 g/dl (6.4-8.2)
[2016-11-18 09:40] LABS: BASOPHIL 0.5 % (0-2.0); EOSINOPHIL 0.8 % (0-4.5); MCH 21.4 pg (25.7-33.7); MCHC 30.7 g/dl (32.0-35.9); MEAN CELL VOLUME 69.5 fl (80-96); MEAN PLT VOLUME 7.5 fl (7.5-11.1); NEUTROPHILS 81.1 % (42.8-82.8); PLATELET COUNT 360 K/MM3 (134-434); RDW 18.2 % (11.9-15.9); WHITE BLOOD COUNT 13.6 K/mm3 (4.0-10.0)
--- NOTE | 2016-11-18 09:46 | PN ---
Progress Note (short form) - Note Progress Note: Dr. Escalera had been called to evaluate patient. I am covering inpatients for Dr. Escalera's group and Mr. Palacio had fired me from his case a while back. Advised CLAIRE Knight to change consult to alternate frame table operator
--- NOTE | 2016-11-18 10:17 | PN ---
Progress Note (short form) - Note Progress Note: Patient known several years regarding Multiple Grave IV decubitii History of paraplegia , has undergone multiple surgeries. Flap closures have dehisched after staying closed for extending time Selected Entries 11/17/16 11/18/16 18:00 08:42 Temperature 98.2 F 98.7 F Pulse Rate 107 H 95 H Respiratory 20 Rate Blood Pressure 102/67 108/73 Blood Pressure Supine Sitting Position Laboratory Tests 11/12/16 11/15/16 11/15/16 Unknown 06:05 06:05 WBC 19.5 H D RBC 4.94 D Hgb 10.7 L D Hct 34.1 L D MCV 69.0 L MCH 21.5 L MCHC 31.2 L RDW 19.6 H D Plt Count Neutrophils % Lymphocytes % Polychromasia 1+ Anisocytosis 1+ Microcytosis 1+ BUN 21 H Iron TIBC Iron Saturation ALT Alkaline Phosphatase Total Protein Albumin 11/17/16 11/17/16 11/17/16 06:00 06:00 06:00 WBC RBC Hgb Hct MCV MCH MCHC RDW Plt Count Neutrophils % 84.5 H Lymphocytes % 6.5 L D Polychromasia Anisocytosis Microcytosis BUN 24 H Iron 11 L TIBC 178 L Iron Saturation 6 L ALT Alkaline Phosphatase Total Protein 6.5 Albumin 1.6 L 11/18/16 11/18/16 06:00 06:00 WBC 13.6 H RBC 3.78 L Hgb 8.1 L Hct 26.3 L MCV 69.5 L MCH 21.4 L MCHC 30.7 L RDW 18.2 H Plt Count 360 Neutrophils % Lymphocytes % Polychromasia Anisocytosis Microcytosis BUN Iron TIBC Iron Saturation ALT 86 H D Alkaline Phosphatase 153 H D Total Protein Albumin Multiple reasons for wound problems 1 Continues smoking. (all efforts made against smoking ) 2. Relief of pressure has not been followed, change of position has not been maintained 3. Several family issues, never taken a group therapy. 4. Poor nutritional support, low protein status, surgeries have been delayed 5. Repeated UTI Spoke with mother and patient yesterday and today Plan : Present wound care with NSS Low pressure mattress Regular turning positions Treat present UTI No Reconstructive surgical procedure till smoking is stopped, nutrition improves Consider Psych consult Thanks Dr Mckeon 30 min
[2016-11-18] MEDS: POLYETHYLENE GLYCOL 3350 119 GM BTL PO SCH ×2 (11:27→22:08)
[2016-11-18] MEDS: HEPARIN NA (PORCINE) 5,000 UNITS/ML 1ML VIAL SQ SCH ×2 (11:27→21:57)
[2016-11-18] MEDS ORDERED: PANTOPRAZOLE SODIUM 40 MG VIAL ONE ×2 (11:28→21:26)
[2016-11-18] MEDS ORDERED: SODIUM CHLORIDE 100 ML IVPB ONE ×2 (11:29→21:26)
[2016-11-18] MEDS: PANTOPRAZOLE SODIUM 40 MG in SODIUM CHLORIDE 100 ML IVPB SCH ×2 (11:31→22:45)
[2016-11-18] MEDS: GABAPENTIN 100 MG CAPSULE (FP) PO SCH (11:31)
--- NOTE | 2016-11-18 12:15 | PN ---
Progress Note (short form) - Note Progress Note: awake and alert hull changed by urology he refuses SPT disimlpacted by urology Vital Signs Period Temp Pulse Resp BP Sys/Vu Pulse Ox Last 24 Hr 97.9 F-99.1 F 85-107 20-20 102-132/67-78 95 cor-rrr lungs clear abd firm, distended ext traced edema hull in place CBC, BMP 11/18/16 06:00 11/18/16 06:00 Microbiology 11/17/16 12:00 Decubiti Gram Stain - Final 11/17/16 12:45 Urine - Urine Hull Urine Culture - Final NO GROWTH OBTAINED 11/12/16 14:00 Blood - Peripheral Venous Blood Culture - Final NO GROWTH AFTER 5 DAYS INCUBATION 11/12/16 14:00 Blood - Peripheral Venous Blood Culture - Final NO GROWTH AFTER 5 DAYS INCUBATION 11/16/16 02:50 Urine - Urine Hull Urine Culture - Final 11/12/16 15:15 Urine - Urine [place] Urine Culture - Final Contaminated: Please Repeat a/p fevers- improved continue meropenem, f/u with urology history of renal stones-still evident on KUB history of sacral ulcer paraplegia History of MDR oganisms strict isolation dedicated equipment- d/w nursing staff
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
--- NOTE | 2016-11-18 13:20 | PN ---
Progress Note (short form) - Note Progress Note: s/p change of catheters hull clear abd soft will perc nephr lithotrypsy will consider xfer to [facility] marianela will follow
--- NOTE | 2016-11-18 13:51 | PN ---
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 Code(s): Z86.19 - PERSONAL HISTORY OF OTHER INFECTIOUS AND PARASITIC DISEASES (2) Chronic indwelling Pelaez catheter Code(s): Z92.89 - PERSONAL HISTORY OF OTHER MEDICAL TREATMENT (3) Leukocytosis Code(s): D72.829 - ELEVATED WHITE BLOOD CELL COUNT, UNSPECIFIED (4) Neurogenic bladder Code(s): N31.9 - NEUROMUSCULAR DYSFUNCTION OF BLADDER, UNSPECIFIED (5) Paraplegia following spinal cord injury Code(s): G82.20 - PARAPLEGIA, UNSPECIFIED (6) UTI (urinary tract infection) Code(s): N39.0 - URINARY TRACT INFECTION, SITE NOT SPECIFIED (7) Decubitus ulcer Code(s): L89.90 - PRESSURE ULCER OF UNSPECIFIED SITE, UNSPECIFIED STAGE (8) Hydronephrosis Code(s): N13.30 - UNSPECIFIED HYDRONEPHROSIS (9) Constipation Code(s): K59.00 - CONSTIPATION, UNSPECIFIED Qualifiers: Constipation type: unspecified constipation type Qualified Code(s): K59.00 - Constipation, unspecified
[2016-11-18] MEDS ORDERED: TRIPLE LUMEN FLUSH 4 ML ML IVPUSH PRN (14:40)
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
[2016-11-18] MEDS ORDERED: SODIUM PHOSPHATE/NA BIPHOS 133 ML ENEMA PR ONE (20:33)
[2016-11-18] MEDS ORDERED: MAGNESIUM CITRATE 300 ML BOTTLE PO ONE (20:33)
[2016-11-18] MEDS ORDERED: PT OWN MED DRAWER 7, Y5N ONE (21:59)
[2016-11-18] MEDS: MINERAL OIL 30 ML UNIT-DOSE CUP PO PRN (22:45)
[2016-11-19] MEDS ORDERED: PT OWN MED DRAWER 7, Y5N ONE ×3 (02:13→20:39)
[2016-11-19] MEDS: MEROPENEM 500 MG in DEXTROSE 5%-WATER 100 ML IVPB SCH ×4 (02:19→20:41)
[2016-11-19 08:05] LABS: BASOPHIL 0.4 % (0-2.0); EOSINOPHIL 1.3 % (0-4.5); MCH 21.5 pg (25.7-33.7); MCHC 30.9 g/dl (32.0-35.9); MEAN CELL VOLUME 69.6 fl (80-96); MEAN PLT VOLUME 7.3 fl (7.5-11.1); NEUTROPHILS 80.1 % (42.8-82.8); PLATELET COUNT 382 K/MM3 (134-434); RDW 18.2 % (11.9-15.9); WHITE BLOOD COUNT 12.9 K/mm3 (4.0-10.0)
[2016-11-19] MEDS ORDERED: ACETAMINOPHEN 500 MG TABLET (FP) PO PRN (09:20)
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
[2016-11-19 09:23] LABS: ALBUMIN 1.5 g/dl (3.4-5.0); ALK PHOS 155 U/L (45-117); ANION GAP 10 (8-16); BILIRUBIN,TOTAL 0.5 mg/dL (0.2-1.0); CALCIUM 7.6 mg/dL (8.5-10.1); CO2 27 mmol/L (21-32); GLUCOSE,RANDOM 73 mg/dL (74-106); SGOT/AST 63 U/L (15-37); SGPT/ALT 77 U/L (12-78); TOT PROT 6.7 g/dl (6.4-8.2)
[2016-11-19] MEDS ORDERED: PANTOPRAZOLE SODIUM 40 MG VIAL ONE ×2 (09:52→21:25)
[2016-11-19] MEDS ORDERED: SODIUM CHLORIDE 100 ML IVPB ONE ×2 (09:53→21:26)
--- NOTE | 2016-11-19 10:18 | PN ---
Progress Note (short form) - Note Progress Note: npo p breakfast b/l hydro for or today cysto b/l laser lithotrypsy if med stable will most likely need to be xferred to [facility] for pcn laser lithotrypsy
[2016-11-19] MEDS: PANTOPRAZOLE SODIUM 40 MG in SODIUM CHLORIDE 100 ML IVPB SCH ×2 (10:24→21:35)
[2016-11-19] MEDS: POLYETHYLENE GLYCOL 3350 119 GM BTL PO SCH ×2 (10:24→21:33)
[2016-11-19] MEDS: GABAPENTIN 100 MG CAPSULE (FP) PO SCH (10:25)
[2016-11-19] MEDS: HEPARIN NA (PORCINE) 5,000 UNITS/ML 1ML VIAL SQ SCH ×2 (10:25→21:33)
[2016-11-19] MEDS: MINERAL OIL 30 ML UNIT-DOSE CUP PO PRN ×2 (11:06→21:35)
--- NOTE | 2016-11-19 12:59 | PN ---
Progress Note (short form) - Note Progress Note: awake and alert hull changed by urology he refuses SPT disimlpacted by urology for stent placement by urology today refuses to permit exam of sacral ulcer Vital Signs Period Temp Pulse Resp BP Sys/Vu Pulse Ox Last 24 Hr 98.2 F-98.9 F 67-87 20-20 107-137/54-75 95-97 cor-rrr llungs clear abd firm, distended hull intact CBC, BMP 11/19/16 06:00 11/19/16 06:00 Microbiology 11/17/16 12:00 Decubiti Gram Stain - Final 11/17/16 12:00 Decubiti Wound Culture - Preliminary Staphylococcus Latex Coag Pos Vr Ec Faecalis Non Lactose Fermenting Gnb Lactose Fermenting Neg Bacilli 11/17/16 12:45 Urine - Urine Hull Urine Culture - Final NO GROWTH OBTAINED 11/12/16 14:00 Blood - Peripheral Venous Blood Culture - Final NO GROWTH AFTER 5 DAYS INCUBATION 11/12/16 14:00 Blood - Peripheral Venous Blood Culture - Final NO GROWTH AFTER 5 DAYS INCUBATION 11/16/16 02:50 Urine - Urine Hull Urine Culture - Final 11/12/16 15:15 Urine - Urine Hull Urine Culture - Final Contaminated: Please Repeat a/p fevers- resolved continue meropenem day #6 for stent change today history of renal stones-still evident on KUB history of sacral ulcer paraplegia History of MDR oganisms strict isolation dedicated equipment- d/w nursing staff d/w Dr House
[2016-11-19] MEDS ORDERED: SUCCINYLCHOLINE CHLORIDE 200 MG/10 ML VIAL ONE (15:02)
[2016-11-19] MEDS ORDERED: MIDAZOLAM HCL 2 MG/2 ML SINGLE DOSE VIAL ONE (15:39)
[2016-11-19] MEDS ORDERED: PROPOFOL 20 ML ONE (15:40)
[2016-11-19] MEDS ORDERED: PHENYLEPHRINE HCL 10 MG/1 ML SINGLE DOSE VIAL ONE ×2 (15:40)
[2016-11-19] MEDS ORDERED: ePHEDrine SULFATE 50 MG/1 ML AMPULE ONE (15:41)
--- NOTE | 2016-11-19 15:51 | OP ---
Operative Note - Note: Operative Date: 11/19/16 Pre-Operative Diagnosis: b/l hydronephrosis, b/l staghorn Operation: cysto, bl retrogarde pyleogram, b/l ureteroscopy, stone retrival and 24 cm 7 fr stent placement Findings: b/l staghorn Post-Operative Diagnosis: Same as Pre-op Surgeon: Moisés Oro Anesthesia: General Drains & Tubes with Location: b/l 24 cm 7 fr jj stents b.l. hull catheter Operative Report Dictated: Yes
[2016-11-19] MEDS ORDERED: ROCURONIUM BROMIDE 50 MG/5 ML VIAL ONE (16:01)
[2016-11-19] MEDS ORDERED: ceFAZolin SODIUM 1 GM VIAL IVPB ONE (16:12)
[2016-11-19] MEDS ORDERED: ceFAZolin SODIUM 1 GM VIAL ONE (16:18)
--- NOTE | 2016-11-19 16:18 | PN ---
Progress Note (short form) - Note Progress Note: stable s/p cysto, b/l lithotrypsy, b/l stone basketing and b/l stent placement will need r/p sono in am pt for transfer to [facility] for perc neph placements please advance prop diet as tolerated resume all preop meds oob inc nilson strain all urine vitals q 4 will follow
[2016-11-19] MEDS ORDERED: ONDANSETRON 4 MG/2 ML VIAL IVPUSH PRN ×2 (16:23→19:02)
[2016-11-19] MEDS ORDERED: LACTATED RINGERS SOLUTION 1,000 ML IV SCH (16:30)
[2016-11-19] MEDS ORDERED: GLYCOPYRROLATE 0.2 MG/1 ML VIAL ONE ×2 (17:02)
[2016-11-19] MEDS ORDERED: NEOSTIGMINE METHYLSULFATE 0.5 MG/1 ML - 10 ML MDV ONE (17:03)
[2016-11-19] MEDS ORDERED: DEXTROSE 5%-0.45% SALINE 1,000 ML IV SCH ×2 (19:00→19:02)
[2016-11-19] MEDS ORDERED: TRIPLE LUMEN FLUSH 4 ML ML IVPUSH PRN (19:02)
[2016-11-19] MEDS ORDERED: MAGNESIUM CITRATE 300 ML BOTTLE PO ONE (19:02)
[2016-11-19] MEDS: ACETAMINOPHEN 500 MG TABLET (FP) PO PRN (22:39)
--- NOTE | 2016-11-20 00:05 | OP ---
DATE OF OPERATION: 11/19/2016 PREOPERATIVE DIAGNOSIS: Bilateral hydronephrosis, bilateral staghorn calculi of kidney, paraplegia, neurogenic bladder, history of nephrolithiasis, history of bladder stones, history of permanent Pelaez drainage. OPERATIVE PROCEDURE: Cystourethroscopy, bilateral retrograde pyelograms, bilateral ureteroscopies, bilateral retrieval of ureteral stents, bilateral placement of double-J stents. ANESTHESIA: General. DESCRIPTION OF PROCEDURE: Under the above-stated anesthesia, the patient was prepped and draped in the usual sterile manner. He is placed in the dorsal lithotomy position. Pelaez catheter was removed. Penile area was prepped and dressed. Continuous flow cystoscope was introduced under direct vision. Prostatic urethra was wide open. The patient's bladder appeared to be deformed with a dumbbell shaped bladder. The lower pouch revealed trabeculated, scarred bladder mucosa. The upper pouch revealed bilateral ureteral orifices with a grade 2 trabeculation. There was a generalized hyperemia. No overt lesions or calculi were seen. A Flexi-Tip was passed in the right orifice and x-rays were taken. This revealed a grade 4 hydroureteronephrosis. The same thing was done on the left side. Ureteroscopy was then performed on the right side and left side and several small stones were retrieved. Due to the tortuosity of the ureter, pyeloscopy was unable to be performed. Therefore, glidewire were passed up the right renal unit as well as the left renal unit. A 24-cm 7-Azerbaijani double-J stent was passed in the right renal pelvis and ended in the bladder. The same thing was done on the left side. X-rays confirmed good position of the stents. The bladder was emptied. The scope was removed and an 18-Azerbaijani Pelaez was inserted. The patient tolerated the procedures. He will return to the recovery room. He will be scheduled to go to a tertiary center for percutaneous nephrolithotripsy. Alison [id number]
[2016-11-20] MEDS ORDERED: PT OWN MED DRAWER 7, Y5N ONE ×3 (01:07→22:14)
[2016-11-20] MEDS: MEROPENEM 500 MG in DEXTROSE 5%-WATER 100 ML IVPB SCH ×4 (03:13→22:40)
[2016-11-20] MEDS ORDERED: SODIUM CHLORIDE 100 ML IVPB ONE ×2 (08:56→22:14)
[2016-11-20] MEDS ORDERED: PANTOPRAZOLE SODIUM 40 MG VIAL ONE ×2 (08:56→22:14)
[2016-11-20] MEDS ORDERED: MAGNESIUM CITRATE 300 ML BOTTLE PO ONE (09:15)
[2016-11-20] MEDS: HEPARIN NA (PORCINE) 5,000 UNITS/ML 1ML VIAL SQ SCH ×2 (09:17→22:40)
[2016-11-20] MEDS: POLYETHYLENE GLYCOL 3350 119 GM BTL PO SCH ×3 (09:17→22:41)
[2016-11-20] MEDS: PANTOPRAZOLE SODIUM 40 MG in SODIUM CHLORIDE 100 ML IVPB SCH ×2 (09:18→22:40)
[2016-11-20] MEDS: GABAPENTIN 100 MG CAPSULE (FP) PO SCH (09:18)
[2016-11-20] MEDS: TRIPLE LUMEN FLUSH 4 ML ML IVPUSH PRN ×3 (10:00→19:56)
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
[2016-11-20] MEDS ORDERED: IRON SUCROSE INJECTION 100 MG in SODIUM CHLORIDE 95 ML IVPB ONE (13:00)
[2016-11-20] MEDS: MINERAL OIL 30 ML UNIT-DOSE CUP PO PRN (16:50)
--- NOTE | 2016-11-20 17:36 | PN ---
GI Progress Note Subjective: patient refused enemas, spoke to him to reconsider , he only wants oral laxatives which cause nuasea and vomitng because of underlying impactio - Objective Vital Signs: Vital Signs Temperature 98.5 F 11/20/16 13:37 Pulse Rate 78 11/20/16 13:37 Respiratory Rate 20 11/20/16 13:37 Blood Pressure 124/74 11/20/16 13:37 O2 Sat by Pulse Oximetry (%) 96 11/19/16 21:00 Constitutional: Well Nourished Eyes: Yes: Conjunctiva Clear, Occular Prosthesis Neck: Yes: Trachea Midline Cardiovascular: Yes: Regular Rate and Rhythm, Other ...Palpate: Yes: Soft. No: Firm/Rigid, Guarding, Hepatomegaly, Mass, Pulsatile Mass, Splenomegaly Labs: CBC, BMP 11/19/16 06:00 11/19/16 06:00 Problem List - Problems (1) Fecal impaction in rectum Assessment/Plan: R> encourage to use enemas will give another bottle of citroma Code(s): K56.41 - FECAL IMPACTION (2) Hirschsprung disease of rectosigmoid region Code(s): Q43.1 - HIRSCHSPRUNG'S DISEASE (3) Pseudoobstruction of colon Code(s): K59.8 - OTHER SPECIFIED FUNCTIONAL INTESTINAL DISORDERS
[2016-11-20 20:30] LABS: BASOPHIL 0.6 % (0-2.0); EOSINOPHIL 1.8 % (0-4.5); MCH 23.6 pg (25.7-33.7); MCHC 31.7 g/dl (32.0-35.9); MEAN CELL VOLUME 74.3 fl (80-96); MEAN PLT VOLUME 7.5 fl (7.5-11.1); NEUTROPHILS 76.7 % (42.8-82.8); PLATELET COUNT 403 K/MM3 (134-434); RDW 21.9 % (11.9-15.9); WHITE BLOOD COUNT 11.3 K/mm3 (4.0-10.0)
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
[2016-11-21] MEDS: MEROPENEM 500 MG in DEXTROSE 5%-WATER 100 ML IVPB SCH ×2 (04:00→10:24)
[2016-11-21] MEDS ORDERED: PT OWN MED DRAWER 7, Y5N ONE ×2 (05:26→10:21)
[2016-11-21] MEDS ORDERED: SODIUM CHLORIDE 100 ML IVPB ONE ×2 (10:22→21:35)
[2016-11-21] MEDS ORDERED: PANTOPRAZOLE SODIUM 40 MG VIAL ONE ×2 (10:22→21:35)
[2016-11-21] MEDS: HEPARIN NA (PORCINE) 5,000 UNITS/ML 1ML VIAL SQ SCH ×2 (10:24→21:48)
[2016-11-21] MEDS: GABAPENTIN 100 MG CAPSULE (FP) PO SCH (10:25)
[2016-11-21] MEDS: POLYETHYLENE GLYCOL 3350 119 GM BTL PO SCH (10:25)
[2016-11-21] MEDS: MINERAL OIL 30 ML UNIT-DOSE CUP PO PRN ×2 (10:26→22:30)
[2016-11-21] MEDS ORDERED: BISACODYL 5 MG TABLET.DR (FP) PO PRN (10:49)
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
[2016-11-21] MEDS: PANTOPRAZOLE SODIUM 40 MG in SODIUM CHLORIDE 100 ML IVPB SCH ×2 (12:01→22:30)
--- NOTE | 2016-11-21 13:38 | PN ---
Progress Note (short form) - Note Progress Note: awake and alert stent placement 11/19 still has stones Vital Signs Period Temp Pulse Resp BP Sys/Vu Pulse Ox Last 24 Hr 98.0 F-98.7 F 67-81 20-20 111-131/62-77 96 cor-rrr lungs clear abd firm, nt ext no edema hull d/w Dr Verdugo- sacral ulcer is clean, no purulence or cellulitis CBC, BMP 11/20/16 19:45 11/19/16 06:00 Microbiology 11/20/16 12:24 Body Fluid - Other Gram Stain - Final 11/20/16 12:24 Body Fluid - Other Body Fluid Culture - Preliminary Non Lactose Fermenting Gnb Group D Strep Or Entero Coccus 11/17/16 12:00 Decubiti Gram Stain - Final 11/17/16 12:00 Decubiti Wound Culture - Final S Aureus Vr Ec Faecalis Acinetobacter Baumannii/Haemol Klebsiella Pneumoniae - Esbl 11/17/16 12:45 Urine - Urine Hull Urine Culture - Final NO GROWTH OBTAINED 11/12/16 14:00 Blood - Peripheral Venous Blood Culture - Final NO GROWTH AFTER 5 DAYS INCUBATION 11/12/16 14:00 Blood - Peripheral Venous Blood Culture - Final NO GROWTH AFTER 5 DAYS INCUBATION 11/16/16 02:50 Urine - Urine Hull Urine Culture - Final 11/12/16 15:15 Urine - Urine [place] Urine Culture - Final Contaminated: Please Repeat a/p fevers- resolved meropenem day #8 will d/c antibiotics d/w Dr Oro- both kidneys are draining now that stents are in , doubt we can sterilize his urine if he has kidney stones history of sacral ulcer paraplegia History of MDR organisms strict isolation dedicated equipment-
--- NOTE | 2016-11-21 15:50 | PATH ---
Surgical Pathology Report Patient Name: ROSLYN HILLS Med. Rec. #: [id number] /Age/Gender: 1965 (Age: 51) / M Account: [id number] Location: [facility] MED/SURG Taken: 11/19/2016 Received: 11/20/2016 Reported: 11/21/2016 Physicians: Moisés Oro M.D. Specimen(s) Received GRAVEL Clinical History Bilateral hydronephrosis Final Diagnosis GRAVEL: CALCULUS (GROSS EXAM). SPECIMEN SENT FOR CHEMICAL ANALYSIS. Electronically Signed Jayden Neff M.D. Gross Description Received fresh labeled "gravel" is a 0.1 cm in greatest dimension layne-stratton, irregular calculus which is sent for chemical analysis. /11/20/201611/20/2016
--- NOTE | 2016-11-21 16:00 | PATH ---
Cytology Non-Gynecological Report Patient Name: ROSLYN HILLS Med. Rec. #: [id number] /Age/Gender: 1965 (Age: 51) / M Account: [id number] Location: [facility] MED/SURG Taken: 11/19/2016 Received: 11/20/2016 Reported: 11/21/2016 Physicians: Moisés Oro M.D. Specimen(s) Received RENAL PELVIC FLUID Clinical History Not given Final Diagnosis RENAL PELVIC FLUID: NO MALIGNANT CELLS IDENTIFIED. ABUNDANT ACUTE INFLAMMATION. Electronically Signed Jayden Neff M.D. Gross Description Received is 20 cc of straw-colored fluid fresh. One cytofunnel slide and one cell block are made.
--- NOTE | 2016-11-21 18:06 | PN ---
Progress Note (short form) - Note Progress Note: PAtient seen and examined Denies any complaints Last Vital Signs Temp Pulse Resp BP Pulse Ox 98.0 F 72 18 113/63 96 11/21/16 14:58 11/21/16 14:58 11/21/16 14:58 11/21/16 14:58 11/21/16 09:00 Cor: RSR, bowel distended Lungs: Clear to P&A Abd: Soft, Normal bowel sounds, No organomegaly Ext:No significant edema Abnormal Lab Results 11/20/16 11/21/16 19:45 07:24 WBC 11.3 H Hgb 9.5 L D Hct 29.9 L D MCV 74.3 L MCH 23.6 L MCHC 31.7 L RDW 21.9 H D Prealbumin 10.4 L Active Medications Generic Name Dose Route Start Last Admin Trade Name Freq PRN Reason Stop Dose Admin Acetaminophen 1,000 mg 11/19/16 19:02 11/19/16 22:39 Tylenol - PO 1,000 mg Q6H PRN Administration FEVER OR PAIN Bisacodyl 5 mg 11/21/16 10:49 Dulcolax - PO DAILY PRN CONSTIPATION Diphenhydramine HCl 50 mg 11/19/16 19:02 11/19/16 22:43 Benadryl Injection - IVPB 50 mg BID PRN Administration FOR ITCHING Gabapentin 100 mg 11/20/16 10:00 11/21/16 10:25 Neurontin - PO 100 mg DAILY GISEL Administration Heparin Sodium (Porcine) 5,000 unit 11/19/16 22:00 11/21/16 10:24 Heparin - SQ Not Given BID GISEL IV Flush 8 ml 11/19/16 19:02 Picc Line Flush IVPUSH PRN PRN Protocol IV Flush 4 ml 11/19/16 19:02 11/20/16 19:56 Triple Lumen Flush IVPUSH 4 ml PRN PRN Administration Protocol Pantoprazole Sodium 40 mg/ 100 mls @ 200 mls/hr 11/19/16 22:00 11/21/16 12:01 Sodium Chloride IVPB 200 mls/hr BID GISEL Administration Mineral Oil 30 ml 11/19/16 19:02 11/21/16 10:26 Mineral Oil - PO 30 ml DAILY PRN Administration CONSTIPATION Polyethylene Glycol 17 gm 11/19/16 22:00 11/21/16 10:25 Miralax (For Daily Use) - PO 119 grams BID GISEL Administration A/P 51 y/o with paraplegia, hirschsprungs colon, sacral decubitus, recurrent UTIs Anemia; multifactorial Iron saturation 6% Ferritin 300s will dose iv iron as he has severe consti[ation with PO iron if needs blood transfusion if Hgb <7 will need premeds with tylenol and benadryl + hydrocortisone Discussed with GI team--unable to get colon evaluation due to retained stool/ colonic ileus from hirschsprungs
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
[2016-11-22] MEDS ORDERED: BISACODYL 5 MG TABLET.DR (FP) PO ONE (09:00)
[2016-11-22] MEDS: TRIPLE LUMEN FLUSH 4 ML ML IVPUSH PRN (11:00)
[2016-11-22] MEDS ORDERED: SODIUM CHLORIDE 100 ML IVPB ONE ×2 (11:15→21:30)
[2016-11-22] MEDS ORDERED: PANTOPRAZOLE SODIUM 40 MG VIAL ONE ×2 (11:15→21:30)
[2016-11-22] MEDS: POLYETHYLENE GLYCOL 3350 119 GM BTL PO SCH ×3 (11:46→21:50)
[2016-11-22] MEDS: PANTOPRAZOLE SODIUM 40 MG in SODIUM CHLORIDE 100 ML IVPB SCH ×2 (11:46→21:37)
[2016-11-22] MEDS: GABAPENTIN 100 MG CAPSULE (FP) PO SCH (11:47)
[2016-11-22] MEDS: HEPARIN NA (PORCINE) 5,000 UNITS/ML 1ML VIAL SQ SCH ×2 (11:47→21:50)
[2016-11-22] MEDS: MINERAL OIL 30 ML UNIT-DOSE CUP PO PRN (21:49)
[2016-11-23] MEDS: PICC LINE 8 ML FLUSH PROTOCOL IVPUSH PRN ×2 (06:47→11:00)
[2016-11-23] MEDS: TRIPLE LUMEN FLUSH 4 ML ML IVPUSH PRN (06:49)
[2016-11-23 07:30] LABS: BASOPHIL 0.5 % (0-2.0); EOSINOPHIL 1.7 % (0-4.5); MCH 23.7 pg (25.7-33.7); MCHC 31.9 g/dl (32.0-35.9); MEAN CELL VOLUME 74.2 fl (80-96); MEAN PLT VOLUME 7.1 fl (7.5-11.1); NEUTROPHILS 80.1 % (42.8-82.8); PLATELET COUNT 393 K/MM3 (134-434); RDW 23.3 % (11.9-15.9); WHITE BLOOD COUNT 12.5 K/mm3 (4.0-10.0)
[2016-11-23 08:03] LABS: ALBUMIN 1.6 g/dl (3.4-5.0); ANION GAP 7 (8-16); CO2 29 mmol/L (21-32); GLUCOSE,RANDOM 68 mg/dL (74-106)
[2016-11-23 08:07] LABS: ALK PHOS 139 U/L (45-117); BILIRUBIN,TOTAL 0.6 mg/dL (0.2-1.0); CREATININE 0.7 mg/dL (0.7-1.3); SGOT/AST 20 U/L (15-37); SGPT/ALT 34 U/L (12-78); TOT PROT 7.1 g/dl (6.4-8.2)
[2016-11-23 08:22] LABS: ANISOCYTOSIS 2+; HYPOCHROMIA 1+
[2016-11-23 08:23] LABS: TARGET CELLS 1+
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
[2016-11-23] MEDS ORDERED: SODIUM CHLORIDE 100 ML IVPB ONE ×2 (10:25→22:07)
[2016-11-23] MEDS ORDERED: PANTOPRAZOLE SODIUM 40 MG VIAL ONE ×2 (10:25→22:07)
[2016-11-23] MEDS: POLYETHYLENE GLYCOL 3350 119 GM BTL PO SCH ×2 (10:52→22:35)
[2016-11-23] MEDS: PANTOPRAZOLE SODIUM 40 MG in SODIUM CHLORIDE 100 ML IVPB SCH ×2 (10:52→22:41)
[2016-11-23] MEDS: HEPARIN NA (PORCINE) 5,000 UNITS/ML 1ML VIAL SQ SCH ×2 (10:52→22:35)
[2016-11-23] MEDS: GABAPENTIN 100 MG CAPSULE (FP) PO SCH (10:52)
[2016-11-23] MEDS ORDERED: LACTULOSE 20 GM/30 ML UDC (FOR ORAL USE ONLY) PO PRN (16:30)
[2016-11-23] MEDS: MINERAL OIL 30 ML UNIT-DOSE CUP PO PRN ×2 (17:22→22:41)
[2016-11-23] MEDS ORDERED: PT OWN MED DRAWER 7, Y5N ONE (22:38)
[2016-11-23] MEDS: BISACODYL 5 MG TABLET.DR (FP) PO SCH (22:41)
[2016-11-24 08:41] LABS: BASOPHIL 0.5 % (0-2.0); EOSINOPHIL 1.5 % (0-4.5); MCH 23.4 pg (25.7-33.7); MCHC 31.3 g/dl (32.0-35.9); MEAN CELL VOLUME 74.8 fl (80-96); MEAN PLT VOLUME 7.4 fl (7.5-11.1); NEUTROPHILS 77.8 % (42.8-82.8); PLATELET COUNT 394 K/MM3 (134-434); RDW 23.2 % (11.9-15.9); WHITE BLOOD COUNT 11.5 K/mm3 (4.0-10.0)
[2016-11-24 09:08] LABS: ALBUMIN 1.6 g/dl (3.4-5.0); ANION GAP 8 (8-16); CALCIUM 8.1 mg/dL (8.5-10.1); CO2 28 mmol/L (21-32); CREATININE 0.8 mg/dL (0.7-1.3); GLUCOSE,RANDOM 97 mg/dL (74-106); SGOT/AST 16 U/L (15-37); SGPT/ALT 29 U/L (12-78)
[2016-11-24 09:10] LABS: ALK PHOS 133 U/L (45-117); BILIRUBIN,TOTAL 0.3 mg/dL (0.2-1.0); TOT PROT 7.4 g/dl (6.4-8.2)
[2016-11-24] MEDS ORDERED: PANTOPRAZOLE SODIUM 40 MG VIAL ONE (10:32)
[2016-11-24] MEDS ORDERED: SODIUM CHLORIDE 100 ML IVPB ONE (10:33)
[2016-11-24] MEDS: BISACODYL 5 MG TABLET.DR (FP) PO SCH ×2 (11:10→22:33)
[2016-11-24] MEDS: HEPARIN NA (PORCINE) 5,000 UNITS/ML 1ML VIAL SQ SCH ×2 (11:12→22:33)
[2016-11-24] MEDS: POLYETHYLENE GLYCOL 3350 119 GM BTL PO SCH ×2 (11:13→22:33)
[2016-11-24] MEDS: GABAPENTIN 100 MG CAPSULE (FP) PO SCH (11:14)
[2016-11-24] MEDS: PANTOPRAZOLE SODIUM 40 MG in SODIUM CHLORIDE 100 ML IVPB SCH (11:14)
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
--- NOTE | 2016-11-24 14:49 | PN ---
Progress Note (short form) - Note Progress Note: PAtient seen and examined Denies any complaints Last Vital Signs Temp Pulse Resp BP Pulse Ox 98.2 F 80 18 119/73 98 11/24/16 14:42 11/24/16 14:42 11/24/16 14:42 11/24/16 14:42 11/23/16 21:00 Cor: RSR, bowel distended Lungs: Clear to P&A Abd: Soft, Normal bowel sounds, No organomegaly Ext:No significant edema Abnormal Lab Results 11/24/16 11/24/16 07:15 07:15 WBC 11.5 H Hgb 9.5 L Hct 30.5 L MCV 74.8 L MCH 23.4 L MCHC 31.3 L RDW 23.2 H MPV 7.4 L BUN 26 H Calcium 8.1 L Alkaline Phosphatase 133 H Albumin 1.6 L Active Medications Generic Name Dose Route Start Last Admin Trade Name Freq PRN Reason Stop Dose Admin Acetaminophen 1,000 mg 11/19/16 19:02 11/19/16 22:39 Tylenol - PO 1,000 mg Q6H PRN Administration FEVER OR PAIN Bisacodyl 10 mg 11/23/16 22:00 11/24/16 11:10 Dulcolax - PO Not Given BID GISEL Diphenhydramine HCl 50 mg 11/19/16 19:02 11/19/16 22:43 Benadryl Injection - IVPB 50 mg BID PRN Administration FOR ITCHING Gabapentin 100 mg 11/20/16 10:00 11/24/16 11:14 Neurontin - PO 100 mg DAILY GISEL Administration Heparin Sodium (Porcine) 5,000 unit 11/19/16 22:00 11/24/16 11:12 Heparin - SQ Not Given BID GISEL IV Flush 8 ml 11/19/16 19:02 11/23/16 11:00 Picc Line Flush IVPUSH 8 ml PRN PRN Administration Protocol IV Flush 4 ml 11/19/16 19:02 11/23/16 06:49 Triple Lumen Flush IVPUSH 4 ml PRN PRN Administration Protocol Lactulose 15 gm 11/23/16 16:30 Cephulac (Oral Use) PO TID PRN CONSTIPATION Mineral Oil 30 ml 11/19/16 19:02 11/23/16 22:41 Mineral Oil - PO 30 ml DAILY PRN Administration CONSTIPATION Pantoprazole Sodium 40 mg 11/24/16 22:00 Protonix - PO BID GISEL Polyethylene Glycol 17 gm 11/19/16 22:00 11/24/16 11:13 Miralax (For Daily Use) - PO Not Given BID GISEL A/P 51 y/o with paraplegia, hirschsprungs colon, sacral decubitus, recurrent UTIs Anemia; multifactorial Iron saturation 6% Ferritin 300s will dose iv iron as he has severe constiPation with PO iron if needs blood transfusion if Hgb <7 will need premeds with tylenol and benadryl + hydrocortisone Discussed with GI team--unable to get colon evaluation due to retained stool/ colonic ileus from hirschsprungs
[2016-11-24] MEDS ORDERED: IRON SUCROSE INJECTION 100 MG in SODIUM CHLORIDE 95 ML IVPB ONE (14:51)
[2016-11-24] MEDS: PANTOPRAZOLE 40 MG TABLET (FP) PO SCH (21:54)
[2016-11-24] MEDS: MINERAL OIL 30 ML UNIT-DOSE CUP PO PRN (21:56)
--- NOTE | 2016-11-25 08:42 | PN ---
TALI Green Note Chief Complaint: chart reviwed. pt with paraplegia refusing spt. has b/l staghorn. will need pcnl at [facility], pt is considering it. urologically clear - Objective Vital Signs: Vital Signs Temperature 98.9 F 11/25/16 04:00 Pulse Rate 81 11/25/16 04:00 Respiratory Rate 18 11/25/16 04:00 Blood Pressure 101/66 11/25/16 04:00 O2 Sat by Pulse Oximetry (%) 96 11/24/16 21:00 Labs/Additional Data: CBC, BMP 11/24/16 07:15 11/24/16 07:15 Blood Type Blood Type O POSITIVE 11/19/16 09:50
[2016-11-25] MEDS: PANTOPRAZOLE 40 MG TABLET (FP) PO SCH ×2 (09:36→22:04)
[2016-11-25] MEDS: GABAPENTIN 100 MG CAPSULE (FP) PO SCH (09:36)
[2016-11-25] MEDS: BISACODYL 5 MG TABLET.DR (FP) PO SCH ×2 (09:37→22:03)
[2016-11-25] MEDS: POLYETHYLENE GLYCOL 3350 119 GM BTL PO SCH ×2 (09:37→22:03)
[2016-11-25] MEDS: HEPARIN NA (PORCINE) 5,000 UNITS/ML 1ML VIAL SQ SCH ×2 (09:37→21:38)
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
--- NOTE | 2016-11-25 09:50 | DS ---
Physical Examination Vital Signs: Vital Signs Temperature 98.9 F 11/25/16 04:00 Pulse Rate 81 11/25/16 04:00 Respiratory Rate 18 11/25/16 04:00 Blood Pressure 101/66 11/25/16 04:00 O2 Sat by Pulse Oximetry (%) 96 11/24/16 21:00 Constitutional: Yes: Calm Cardiovascular: Yes: Regular Rate and Rhythm, Murmur, S1, S2 Respiratory: Yes: CTA Bilaterally Gastrointestinal: Yes: Distention Edema: No Wound/Incision: Yes: Other (sacral wound) Neurological: Yes: Alert, Oriented, Pre-Existing Deficit Labs: CBC, BMP 11/24/16 07:15 11/24/16 07:15 Discharge Summary Reason For Visit: UTI Current Active Problems COPD (chronic obstructive pulmonary disease) (Acute) Chronic indwelling Hull catheter (Acute) Elevated INR (Acute) Fecal impaction in rectum (Acute) Hirschsprung disease of rectosigmoid region (Acute) 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 Cough is nonproductive. Pt reports malaise waxing and waning over the past 10 days. His symptoms are not worsening, but he presents to the ER today because he knows he is sick. Pt reports cloudy urine in permanent hull bag, and believes he has a UTI 2/2 hx of recurrent UTIs. Pt denies sick contacts, fever, chills, hemoptysis, chest pain, SOB, nausea, vomiting, constipation, diarrhea. Severity: mild Associated Symptoms: reports: cough, malaise and hiccups for the last week and half, no fever at home patient states he knew he was getting urine infection and so came to ER History Source: Patient, Medical Record - Past Medical History Pulmonary: Yes: COPD Gastrointestinal: Yes: Constipation (Neurogenic bowel with persistent obstipation), GI Bleed (BRBPR see HPI) Hepatobiliary: Yes: Cholelithiasis Renal/: Yes: Neurogenic Bladder, Renal Calculi, UTI, Other (JJ bilat stents, permanent Hull) Heme/Onc: Yes: Anemia Infectious Disease: Yes: MRSA, Other (resistant organisms, pseudomonas and esbl gram negatives, history polymicrobial bacteremia) Musculoskeletal: Yes: Paraplegia - Past Surgical History Past Surgical History: Yes: Stent (JJ stent) - Smoking History Smoking history: Current some day smoker Have you smoked in the past 12 months: Yes in hospital: 1.urology: hull changes refuising Suprapubic cath, urine sent - MDR organsims got 8 days of meropenem via central line no fever wbc is almost normal then 11/19 had stents placed Note: Operative Date: 11/19/16 Pre-Operative Diagnosis: b/l hydronephrosis, b/l staghorn Operation: cysto, bl retrogarde pyleogram, b/l ureteroscopy, stone retrival and 24 cm 7 fr stent placement Findings: b/l staghorn Post-Operative Diagnosis: Same as Pre-op Surgeon: Moisés Oro Anesthesia: General Drains & Tubes with Location: b/l 24 cm 7 fr jj stents b.l. hull catheter Operative Report Dictated: Yes 2.bilateral stag horn calculi in kidey neds percutanoeus nephrolithotripsy at tertiary center [facility] or [facility]- patient currently doenst want to get that done given the patient has stones and stents and indwelling hull will alwayas have positvie UA and culture, 3.constipation seen by gi got citromamiralax , now having BM, 4.sacral decuitus: seen by plastic surgery clean with NSS 5.anemia: seen by heme got iv venofer 3 dose cannot tolerate po iron, as iron level very low ,colonscopy cannot be done given retained stool and colonic ileus secondary to hirschprung disease Condition: Guarded - Instructions Referrals: Leola House MD [Primary Care Provider] - Disposition: HOME - Home Medications Comprehensive Discharge Medication List: Ambulatory Orders Acetaminophen [Tylenol .Regular Strength -] 650 mg PO Q6H PRN #0 tablet Mineral Oil - 30 ml PO DAILY PRN #300 ml 11/04/15
[2016-11-25] MEDS ORDERED: PT OWN MED DRAWER 7, Y5N ONE ×3 (10:22→22:01)
[2016-11-25] MEDS: MINERAL OIL 30 ML UNIT-DOSE CUP PO PRN (10:29)
[2016-11-25 11:05] LABS: BASOPHIL 0.6 % (0-2.0); EOSINOPHIL 1.8 % (0-4.5); MCH 23.7 pg (25.7-33.7); MCHC 31.6 g/dl (32.0-35.9); MEAN PLT VOLUME 7.1 fl (7.5-11.1); NEUTROPHILS 76.2 % (42.8-82.8); PLATELET COUNT 349 K/MM3 (134-434); RDW 23.9 % (11.9-15.9); WHITE BLOOD COUNT 9.8 K/mm3 (4.0-10.0)
[2016-11-25 11:43] LABS: ALBUMIN 1.6 g/dl (3.4-5.0); ANION GAP 6 (8-16); CALCIUM 8.2 mg/dL (8.5-10.1); CO2 30 mmol/L (21-32); CREATININE 0.9 mg/dL (0.7-1.3); GLUCOSE,RANDOM 138 mg/dL (74-106); SGOT/AST 16 U/L (15-37); SGPT/ALT 24 U/L (12-78)
[2016-11-25 11:44] LABS: ALK PHOS 129 U/L (45-117); BILIRUBIN,TOTAL 0.3 mg/dL (0.2-1.0); TOT PROT 7.2 g/dl (6.4-8.2)
--- NOTE | 2016-11-25 16:57 | PN ---
Progress Note, Physician History of Present Illness: C/O chills No fever WBC WNL Urine c/s mixed organisms - Current Medication List Current Medications: Active Medications Acetaminophen (Tylenol -) 1,000 mg PO Q6H PRN PRN Reason: FEVER OR PAIN Last Admin: 11/19/16 22:39 Dose: 1,000 mg Bisacodyl (Dulcolax -) 10 mg PO BID [facility] Last Admin: 11/25/16 09:37 Dose: Not Given Diphenhydramine HCl (Benadryl Injection -) 50 mg IVPB BID PRN PRN Reason: FOR ITCHING Last Admin: 11/19/16 22:43 Dose: 50 mg Gabapentin (Neurontin -) 100 mg PO DAILY [facility] Last Admin: 11/25/16 09:36 Dose: 100 mg Heparin Sodium (Porcine) (Heparin -) 5,000 unit SQ BID [facility] Last Admin: 11/25/16 09:37 Dose: Not Given IV Flush (Picc Line Flush) 8 ml IVPUSH PRN PRN PRN Reason: Protocol Last Admin: 11/23/16 11:00 Dose: 8 ml IV Flush (Triple Lumen Flush) 4 ml IVPUSH PRN PRN PRN Reason: Protocol Last Admin: 11/23/16 06:49 Dose: 4 ml Lactulose (Cephulac (Oral Use)) 15 gm PO TID PRN PRN Reason: CONSTIPATION Mineral Oil (Mineral Oil -) 30 ml PO DAILY PRN PRN Reason: CONSTIPATION Last Admin: 11/25/16 10:29 Dose: 30 ml Pantoprazole Sodium (Protonix -) 40 mg PO BID [facility] Last Admin: 11/25/16 09:36 Dose: 40 mg Polyethylene Glycol (Miralax (For Daily Use) -) 17 gm PO BID [facility] Last Admin: 11/25/16 09:37 Dose: Not Given - Objective Vital Signs: Vital Signs Temperature 97.3 F L 11/25/16 14:25 Pulse Rate 82 11/25/16 14:25 Respiratory Rate 18 11/25/16 14:25 Blood Pressure 101/67 11/25/16 14:25 O2 Sat by Pulse Oximetry (%) 96 11/25/16 09:00 Constitutional: Yes: No Distress, Cachectic Cardiovascular: Yes: S1, S2 Respiratory: Yes: CTA Bilaterally Gastrointestinal: Yes: Normal Bowel Sounds, Other (distended, tympanitic) Edema: No Labs: CBC, BMP 11/25/16 10:30 11/25/16 10:30 Assessment/Plan Obstructive uropathy s/p stents Hx MDR urinary tract pathogens Paraplegia Sacral decubitus Afebrile with normal WBC Non toxic appearing Observe off antibiotics
[2016-11-26] MEDS: BISACODYL 5 MG TABLET.DR (FP) PO SCH ×2 (10:42→21:08)
[2016-11-26] MEDS: PANTOPRAZOLE 40 MG TABLET (FP) PO SCH ×2 (10:42→21:44)
[2016-11-26] MEDS: GABAPENTIN 100 MG CAPSULE (FP) PO SCH (10:42)
[2016-11-26] MEDS: POLYETHYLENE GLYCOL 3350 119 GM BTL PO SCH ×2 (10:43→21:08)
[2016-11-26] MEDS: HEPARIN NA (PORCINE) 5,000 UNITS/ML 1ML VIAL SQ SCH ×2 (10:43→21:08)
[2016-11-26] MEDS: MINERAL OIL 30 ML UNIT-DOSE CUP PO PRN ×3 (10:43→21:45)
--- NOTE | 2016-11-26 16:17 | PN ---
Progress Note, Physician Chief Complaint: Nephrolithiasis, decubitus ulcer, constipation History of Present Illness: NAD alert and oriented Abd xray showed fecal impaction had BM yesterday and presence of Staghorn renal calculi above left renal fossa, needs percutaneous lithotripsy at tertiary care center. Refused to go to [facility] s/p urethral stents, cystoscopy and lithotripsy Refuses to go home, still doesn't feel good Off abx - Current Medication List Current Medications: Active Medications Acetaminophen (Tylenol -) 1,000 mg PO Q6H PRN PRN Reason: FEVER OR PAIN Last Admin: 11/19/16 22:39 Dose: 1,000 mg Bisacodyl (Dulcolax -) 10 mg PO BID [facility] Last Admin: 11/26/16 10:42 Dose: 10 mg Diphenhydramine HCl (Benadryl Injection -) 50 mg IVPB BID PRN PRN Reason: FOR ITCHING Last Admin: 11/19/16 22:43 Dose: 50 mg Gabapentin (Neurontin -) 100 mg PO DAILY [facility] Last Admin: 11/26/16 10:42 Dose: 100 mg Heparin Sodium (Porcine) (Heparin -) 5,000 unit SQ BID [facility] Last Admin: 11/26/16 10:43 Dose: Not Given IV Flush (Picc Line Flush) 8 ml IVPUSH PRN PRN PRN Reason: Protocol Last Admin: 11/23/16 11:00 Dose: 8 ml IV Flush (Triple Lumen Flush) 4 ml IVPUSH PRN PRN PRN Reason: Protocol Last Admin: 11/23/16 06:49 Dose: 4 ml Lactulose (Cephulac (Oral Use)) 15 gm PO TID PRN PRN Reason: CONSTIPATION Mineral Oil (Mineral Oil -) 30 ml PO DAILY PRN PRN Reason: CONSTIPATION Last Admin: 11/26/16 10:43 Dose: 30 ml Pantoprazole Sodium (Protonix -) 40 mg PO BID [facility] Last Admin: 11/26/16 10:42 Dose: 40 mg Polyethylene Glycol (Miralax (For Daily Use) -) 17 gm PO BID [facility] Last Admin: 11/26/16 10:43 Dose: Not Given - Objective Vital Signs: Vital Signs Temperature 98.3 F 11/26/16 10:00 Pulse Rate 87 11/26/16 10:00 Respiratory Rate 18 11/26/16 10:00 Blood Pressure 119/66 11/26/16 10:00 O2 Sat by Pulse Oximetry (%) 96 11/26/16 09:00 Constitutional: Yes: Well Nourished, No Distress, Calm Cardiovascular: Yes: Regular Rate and Rhythm Respiratory: Yes: Regular Gastrointestinal: Yes: Hypoactive Bowel Sounds Edema: No Peripheral Pulses WNL: Yes Neurological: Yes: Alert, Oriented Psychiatric: Yes: Alert, Oriented Labs: CBC, BMP 11/25/16 10:30 11/25/16 10:30 Problem List - Problems (1) Chronic indwelling Pelaez catheter Assessment/Plan: -Pelaez changed by Urology with purulent urine -acetic acid flushes Code(s): Z92.89 - PERSONAL HISTORY OF OTHER MEDICAL TREATMENT (2) Infection with multi-drug resistant microorganisms Assessment/Plan: Off abx ID consult Code(s): Z16.35 - RESISTANCE TO MULTIPLE ANTIMICROBIAL DRUGS (3) Neurogenic bladder Code(s): N31.9 - NEUROMUSCULAR DYSFUNCTION OF BLADDER, UNSPECIFIED (4) Paraplegia following spinal cord injury Code(s): G82.20 - PARAPLEGIA, UNSPECIFIED (5) UTI (urinary tract infection) with pyuria Code(s): N39.0 - URINARY TRACT INFECTION, SITE NOT SPECIFIED (6) Back pain Code(s): M54.9 - DORSALGIA, UNSPECIFIED Qualifiers: Back pain location: thoracic back pain Back pain laterality: bilateral (7) Constipation Assessment/Plan: -GI on board -receiving laxatives, mineral oil enema -had BM last evening and this AM Code(s): K59.00 - CONSTIPATION, UNSPECIFIED Qualifiers: Constipation type: unspecified constipation type Qualified Code(s): K59.00 - Constipation, unspecified (8) Anemia Assessment/Plan: -received Iron sucrose -Hematology on board -H/H stable Code(s): D64.9 - ANEMIA, UNSPECIFIED Qualifiers: Anemia type: iron deficiency Other causes of anemia: due to other specified chronic disease Assessment/Plan -labs in AM -being monitored off abx -gentle IVF -needs percuatneous lithotripsy at a tertiary center, is refusing it -He states he can't go home until Thursday because no one is home. Originally he has [employer] for 4 hours per day and his mother to provide care. -DVT and GI prophylaxis
[2016-11-26] MEDS: SODIUM CHLORIDE 1,000 ML IV SCH (17:29)
[2016-11-27] MEDS ORDERED: PT OWN MED DRAWER 7, Y5N ONE (06:13)
[2016-11-27 07:36] LABS: BASOPHIL 0.5 % (0-2.0); EOSINOPHIL 1.6 % (0-4.5); MCH 23.7 pg (25.7-33.7); MCHC 31.5 g/dl (32.0-35.9); MEAN CELL VOLUME 75.3 fl (80-96); MEAN PLT VOLUME 7.4 fl (7.5-11.1); NEUTROPHILS 72.5 % (42.8-82.8); PLATELET COUNT 321 K/MM3 (134-434); RDW 24.3 % (11.9-15.9)
[2016-11-27 07:56] LABS: ALBUMIN 1.6 g/dl (3.4-5.0); ANION GAP 7 (8-16); CALCIUM 7.8 mg/dL (8.5-10.1); CO2 27 mmol/L (21-32); GLUCOSE,RANDOM 112 mg/dL (74-106); SGOT/AST 15 U/L (15-37); SGPT/ALT 20 U/L (12-78)
[2016-11-27 07:59] LABS: ALK PHOS 119 U/L (45-117); BILIRUBIN,TOTAL 0.3 mg/dL (0.2-1.0); CREATININE 0.8 mg/dL (0.7-1.3)
[2016-11-27] MEDS: PANTOPRAZOLE 40 MG TABLET (FP) PO SCH ×2 (11:00→22:08)
[2016-11-27] MEDS: GABAPENTIN 100 MG CAPSULE (FP) PO SCH (11:00)
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
[2016-11-27] MEDS: HEPARIN NA (PORCINE) 5,000 UNITS/ML 1ML VIAL SQ SCH ×2 (11:50→22:11)
[2016-11-27] MEDS: BISACODYL 5 MG TABLET.DR (FP) PO SCH ×2 (11:50→22:11)
[2016-11-27] MEDS: POLYETHYLENE GLYCOL 3350 119 GM BTL PO SCH ×2 (11:50→22:11)
--- NOTE | 2016-11-27 17:03 | PN ---
Progress Note (short form) - Note Progress Note: PAtient seen and examined Denies any complaints AFVSS Cor: RSR, bowel distended Lungs: Clear to P&A Abd: Soft, Normal bowel sounds, No organomegaly Ext:No significant edema Abnormal Lab Results 11/24/16 11/24/16 07:15 07:15 WBC 11.5 H Hgb 9.5 L Hct 30.5 L MCV 74.8 L MCH 23.4 L MCHC 31.3 L RDW 23.2 H MPV 7.4 L BUN 26 H Calcium 8.1 L Alkaline Phosphatase 133 H Albumin 1.6 L Active Medications Generic Name Dose Route Start Last Admin Trade Name Freq PRN Reason Stop Dose Admin Acetaminophen 1,000 mg 11/19/16 19:02 11/19/16 22:39 Tylenol - PO 1,000 mg Q6H PRN Administration FEVER OR PAIN Bisacodyl 10 mg 11/23/16 22:00 11/24/16 11:10 Dulcolax - PO Not Given BID GISEL Diphenhydramine HCl 50 mg 11/19/16 19:02 11/19/16 22:43 Benadryl Injection - IVPB 50 mg BID PRN Administration FOR ITCHING Gabapentin 100 mg 11/20/16 10:00 11/24/16 11:14 Neurontin - PO 100 mg DAILY GISEL Administration Heparin Sodium (Porcine) 5,000 unit 11/19/16 22:00 11/24/16 11:12 Heparin - SQ Not Given BID GISEL IV Flush 8 ml 11/19/16 19:02 11/23/16 11:00 Picc Line Flush IVPUSH 8 ml PRN PRN Administration Protocol IV Flush 4 ml 11/19/16 19:02 11/23/16 06:49 Triple Lumen Flush IVPUSH 4 ml PRN PRN Administration Protocol Lactulose 15 gm 11/23/16 16:30 Cephulac (Oral Use) PO TID PRN CONSTIPATION Mineral Oil 30 ml 11/19/16 19:02 11/23/16 22:41 Mineral Oil - PO 30 ml DAILY PRN Administration CONSTIPATION Pantoprazole Sodium 40 mg 11/24/16 22:00 Protonix - PO BID GISEL Polyethylene Glycol 17 gm 11/19/16 22:00 11/24/16 11:13 Miralax (For Daily Use) - PO Not Given BID [facility] A/P 51 y/o with paraplegia, hirschsprungs colon, sacral decubitus, recurrent UTIs Anemia; multifactorial---chronic disease+ iron deficiency Iron saturation 6% Ferritin 300s will dose iv iron no.3 as he has severe constiPation with PO iron if needs blood transfusion if Hgb <7 will need premeds with tylenol and benadryl + hydrocortisone
[2016-11-27] MEDS: SODIUM CHLORIDE 1,000 ML IV SCH (17:57)
[2016-11-27] MEDS: MINERAL OIL 30 ML UNIT-DOSE CUP PO PRN (20:35)
[2016-11-28] MEDS: TRIPLE LUMEN FLUSH 4 ML ML IVPUSH PRN (05:50)
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
[2016-11-28] MEDS: GABAPENTIN 100 MG CAPSULE (FP) PO SCH (09:54)
[2016-11-28] MEDS: PANTOPRAZOLE 40 MG TABLET (FP) PO SCH ×2 (09:54→21:37)
[2016-11-28] MEDS: MINERAL OIL 30 ML UNIT-DOSE CUP PO PRN ×2 (09:54→21:40)
[2016-11-28] MEDS: POLYETHYLENE GLYCOL 3350 119 GM BTL PO SCH ×2 (09:55→21:37)
[2016-11-28] MEDS: HEPARIN NA (PORCINE) 5,000 UNITS/ML 1ML VIAL SQ SCH ×2 (09:55→21:37)
[2016-11-28] MEDS: BISACODYL 5 MG TABLET.DR (FP) PO SCH ×2 (09:55→21:36)
[2016-11-28] MEDS ORDERED: IRON SUCROSE INJECTION 100 MG in SODIUM CHLORIDE 95 ML IVPB ONE (10:00)
[2016-11-28] MEDS: SODIUM CHLORIDE 1,000 ML IV SCH (16:53)
[2016-11-28] MEDS ORDERED: PT OWN MED DRAWER 7, Y5N ONE (21:38)
--- NOTE | 2016-11-29 09:29 | PN ---
Progress Note, Physician Chief Complaint: ASLEEP NAD - Current Medication List Current Medications: Active Medications Acetaminophen (Tylenol -) 1,000 mg PO Q6H PRN PRN Reason: FEVER OR PAIN Last Admin: 11/19/16 22:39 Dose: 1,000 mg Bisacodyl (Dulcolax -) 10 mg PO BID [facility] Last Admin: 11/28/16 21:36 Dose: Not Given Diphenhydramine HCl (Benadryl Injection -) 50 mg IVPB BID PRN PRN Reason: FOR ITCHING Last Admin: 11/19/16 22:43 Dose: 50 mg Gabapentin (Neurontin -) 100 mg PO DAILY [facility] Last Admin: 11/28/16 09:54 Dose: 100 mg Heparin Sodium (Porcine) (Heparin -) 5,000 unit SQ BID [facility] Last Admin: 11/28/16 21:37 Dose: Not Given IV Flush (Picc Line Flush) 8 ml IVPUSH PRN PRN PRN Reason: Protocol Last Admin: 11/23/16 11:00 Dose: 8 ml IV Flush (Triple Lumen Flush) 4 ml IVPUSH PRN PRN PRN Reason: Protocol Last Admin: 11/28/16 05:50 Dose: 4 ml Sodium Chloride (Normal Saline -) 1,000 mls @ 42 mls/hr IV ASDIR [facility] Last Admin: 11/28/16 16:53 Dose: 42 mls/hr Lactulose (Cephulac (Oral Use)) 15 gm PO TID PRN PRN Reason: CONSTIPATION Mineral Oil (Mineral Oil -) 30 ml PO BID PRN PRN Reason: CONSTIPATION Last Admin: 11/28/16 21:40 Dose: 30 ml Pantoprazole Sodium (Protonix -) 40 mg PO BID [facility] Last Admin: 11/28/16 21:37 Dose: Not Given Polyethylene Glycol (Miralax (For Daily Use) -) 17 gm PO BID [facility] Last Admin: 11/28/16 21:37 Dose: Not Given - Objective Vital Signs: Vital Signs Temperature 97.8 F 11/29/16 05:55 Pulse Rate 61 11/29/16 05:55 Respiratory Rate 18 11/29/16 05:55 Blood Pressure 96/59 11/29/16 05:55 O2 Sat by Pulse Oximetry (%) 96 11/28/16 21:00 Constitutional: Yes: No Distress Eyes: Yes: WNL HENT: Yes: WNL Neck: Yes: WNL Cardiovascular: Yes: WNL Respiratory: Yes: WNL Gastrointestinal: Yes: WNL Genitourinary: Yes: Pinzon Present Musculoskeletal: Yes: Muscle Weakness Extremities: Yes: Deformity Edema: No Peripheral Pulses WNL: Yes Integumentary: Yes: Pressure Ulcer, Skin Tear, Venous Stasis Changes Wound/Incision: Yes: Dressing Dry and Intact Neurological: Yes: Pre-Existing Deficit, Unsteady Gait, Weakness ...Motor Strength: LLE, RLE Psychiatric: Yes: Other Labs: CBC, BMP 11/27/16 06:00 11/27/16 06:00 Problem List - Problems (1) COPD (chronic obstructive pulmonary disease) Code(s): J44.9 - CHRONIC OBSTRUCTIVE PULMONARY DISEASE, UNSPECIFIED Qualifiers : COPD type: COPD with acute exacerbation Qualified Code(s): J44.1 - Chronic obstructive pulmonary disease with (acute) exacerbation (2) Chronic indwelling Pinzon catheter Code(s): Z92.89 - PERSONAL HISTORY OF OTHER MEDICAL TREATMENT (3) Elevated INR Code(s): R79.1 - ABNORMAL COAGULATION PROFILE (4) 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
[2016-11-29] MEDS ORDERED: PT OWN MED DRAWER 7, Y5N ONE (10:13)
[2016-11-29] MEDS: PANTOPRAZOLE 40 MG TABLET (FP) PO SCH ×2 (10:21→22:22)
[2016-11-29] MEDS: GABAPENTIN 100 MG CAPSULE (FP) PO SCH (10:21)
[2016-11-29] MEDS: MINERAL OIL 30 ML UNIT-DOSE CUP PO PRN (10:22)
[2016-11-29] MEDS: BISACODYL 5 MG TABLET.DR (FP) PO SCH ×2 (11:42→22:22)
[2016-11-29] MEDS: POLYETHYLENE GLYCOL 3350 119 GM BTL PO SCH ×2 (11:42→22:22)
[2016-11-29] MEDS: HEPARIN NA (PORCINE) 5,000 UNITS/ML 1ML VIAL SQ SCH ×2 (11:42→22:22)
[2016-11-29 17:44] LABS: BASOPHIL 0.4 % (0-2.0); MEAN CELL VOLUME 74.9 fl (80-96); MEAN PLT VOLUME 7.6 fl (7.5-11.1); NEUTROPHILS 79.8 % (42.8-82.8); PLATELET COUNT 328 K/MM3 (134-434); RDW 23.9 % (11.9-15.9); WHITE BLOOD COUNT 10.2 K/mm3 (4.0-10.0)
[2016-11-29 18:05] LABS: ALBUMIN 1.6 g/dl (3.4-5.0); ANION GAP 11 (8-16); BILIRUBIN,TOTAL 0.3 mg/dL (0.2-1.0); CO2 24 mmol/L (21-32); CREATININE 0.8 mg/dL (0.7-1.3); GLUCOSE,RANDOM 126 mg/dL (74-106); SGOT/AST 16 U/L (15-37); SGPT/ALT 18 U/L (12-78); TOT PROT 6.9 g/dl (6.4-8.2)
[2016-11-29 18:06] LABS: ALK PHOS 149 U/L (45-117)
[2016-11-29 19:40] LABS: ANISOCYTOSIS 3+; MACROCYTOSIS 1+; PLATELET ESTIMATE ADEQUATE (NORMAL); POLYCHROMASIA 1+
[2016-11-30 07:38] LABS: BASOPHIL 0.6 % (0-2.0); EOSINOPHIL 0.7 % (0-4.5); MCH 23.7 pg (25.7-33.7); MCHC 31.7 g/dl (32.0-35.9); MEAN CELL VOLUME 74.7 fl (80-96); MEAN PLT VOLUME 7.5 fl (7.5-11.1); NEUTROPHILS 77.4 % (42.8-82.8); PLATELET COUNT 330 K/MM3 (134-434); RDW 23.6 % (11.9-15.9); WHITE BLOOD COUNT 12.2 K/mm3 (4.0-10.0)
[2016-11-30 08:12] LABS: ALBUMIN 1.5 g/dl (3.4-5.0); ALK PHOS 146 U/L (45-117); ANION GAP 6 (8-16); BILIRUBIN,TOTAL 0.5 mg/dL (0.2-1.0); CALCIUM 8.1 mg/dL (8.5-10.1); CO2 27 mmol/L (21-32); CREATININE 0.8 mg/dL (0.7-1.3); GLUCOSE,RANDOM 77 mg/dL (74-106); SGOT/AST 17 U/L (15-37); SGPT/ALT 19 U/L (12-78); TOT PROT 6.9 g/dl (6.4-8.2)
[2016-11-30] MEDS ORDERED: PT OWN MED DRAWER 7, Y5N ONE (09:53)
[2016-11-30] MEDS: MINERAL OIL 30 ML UNIT-DOSE CUP PO PRN (11:17)
[2016-11-30] MEDS: POLYETHYLENE GLYCOL 3350 119 GM BTL PO SCH ×2 (11:26→22:38)
[2016-11-30] MEDS: HEPARIN NA (PORCINE) 5,000 UNITS/ML 1ML VIAL SQ SCH ×2 (11:26→22:38)
[2016-11-30] MEDS: BISACODYL 5 MG TABLET.DR (FP) PO SCH ×2 (11:26→22:38)
[2016-11-30] MEDS: GABAPENTIN 100 MG CAPSULE (FP) PO SCH (11:26)
[2016-11-30] MEDS: PANTOPRAZOLE 40 MG TABLET (FP) PO SCH ×2 (11:27→22:38)
[2016-11-30] MEDS ORDERED: MEROPENEM 500 MG in DEXTROSE 5%-WATER - 100 ML IVPB ONE (12:09)
--- NOTE | 2016-11-30 12:13 | PN ---
Progress Note, Physician Chief Complaint: AWAKE ALERT C/O CHILLS LOOSE STOOL - Current Medication List Current Medications: Active Medications Acetaminophen (Tylenol -) 1,000 mg PO Q6H PRN PRN Reason: FEVER OR PAIN Last Admin: 11/19/16 22:39 Dose: 1,000 mg Bisacodyl (Dulcolax -) 10 mg PO BID [facility] Last Admin: 11/30/16 11:26 Dose: Not Given Diphenhydramine HCl (Benadryl Injection -) 50 mg IVPB BID PRN PRN Reason: FOR ITCHING Last Admin: 11/19/16 22:43 Dose: 50 mg Gabapentin (Neurontin -) 100 mg PO DAILY [facility] Last Admin: 11/30/16 11:26 Dose: Not Given Heparin Sodium (Porcine) (Heparin -) 5,000 unit SQ BID [facility] Last Admin: 11/30/16 11:26 Dose: Not Given IV Flush (Picc Line Flush) 8 ml IVPUSH PRN PRN PRN Reason: Protocol Last Admin: 11/23/16 11:00 Dose: 8 ml IV Flush (Triple Lumen Flush) 4 ml IVPUSH PRN PRN PRN Reason: Protocol Last Admin: 11/28/16 05:50 Dose: 4 ml Meropenem 500 mg/ Dextrose 100 mls @ 200 mls/hr IVPB ONCE ONE Stop: 11/30/16 12:38 Lactulose (Cephulac (Oral Use)) 15 gm PO TID PRN PRN Reason: CONSTIPATION Mineral Oil (Mineral Oil -) 30 ml PO BID PRN PRN Reason: CONSTIPATION Last Admin: 11/30/16 11:17 Dose: 30 ml Pantoprazole Sodium (Protonix -) 40 mg PO BID [facility] Last Admin: 11/30/16 11:27 Dose: Not Given Polyethylene Glycol (Miralax (For Daily Use) -) 17 gm PO BID [facility] Last Admin: 11/30/16 11:26 Dose: Not Given - Objective Vital Signs: Vital Signs Temperature 98.2 F 11/30/16 01:21 Pulse Rate 98 H 11/30/16 01:21 Respiratory Rate 20 11/30/16 01:21 Blood Pressure 97/59 11/30/16 01:21 O2 Sat by Pulse Oximetry (%) 96 11/29/16 21:00 Constitutional: Yes: Mild Distress Eyes: Yes: WNL HENT: Yes: WNL Neck: Yes: WNL Cardiovascular: Yes: WNL Respiratory: Yes: WNL Gastrointestinal: Yes: WNL Genitourinary: Yes: Pelaez Present Musculoskeletal: Yes: Muscle Weakness Extremities: Yes: Deformity Edema: No Peripheral Pulses WNL: Yes Integumentary: Yes: Pressure Ulcer, Other Wound/Incision: Yes: Dressing Dry and Intact Neurological: Yes: Pre-Existing Deficit, Unsteady Gait, Weakness ...Motor Strength: LLE, RLE Psychiatric: Yes: Agitated, Other Labs: CBC, BMP 11/30/16 06:00 11/30/16 06:00 Problem List - Problems (1) COPD (chronic obstructive pulmonary disease) Code(s): J44.9 - CHRONIC OBSTRUCTIVE PULMONARY DISEASE, UNSPECIFIED Qualifiers : COPD type: COPD with acute exacerbation Qualified Code(s): J44.1 - Chronic obstructive pulmonary disease with (acute) exacerbation (2) Chronic indwelling Pelaez catheter Code(s): Z92.89 - PERSONAL HISTORY OF OTHER MEDICAL TREATMENT (3) Elevated INR Code(s): R79.1 - ABNORMAL COAGULATION PROFILE (4) 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
[2016-11-30] MEDS ORDERED: MEROPENEM 500 MG in DEXTROSE 5%-WATER 100 ML IVPB ONE (12:26)
[2016-11-30] MEDS: ACETAMINOPHEN 500 MG TABLET (FP) PO PRN (23:45)
[2016-12-01 06:57] LABS: MCH 23.7 pg (25.7-33.7); MCHC 31.8 g/dl (32.0-35.9); MEAN CELL VOLUME 74.8 fl (80-96); MEAN PLT VOLUME 7.4 fl (7.5-11.1); PLATELET COUNT 339 K/MM3 (134-434); RDW 23.9 % (11.9-15.9); WHITE BLOOD COUNT 12.6 K/mm3 (4.0-10.0)
[2016-12-01 07:44] LABS: ANION GAP 10 (8-16); CALCIUM 8.4 mg/dL (8.5-10.1); CO2 27 mmol/L (21-32); CREATININE 0.7 mg/dL (0.7-1.3); GLUCOSE,RANDOM 101 mg/dL (74-106)
--- NOTE | 2016-12-01 10:45 | PN ---
Progress Note (short form) - Note Progress Note: abdomen distended and diaphoretic passing watery stools diuretic renal scan ordered to see kidney funct due to chronic h/o of rec uti and sepsis, and staghorn hull changed 18 fr 10 cc with guidewire ua c/s taken of purulemnt urin plan: gi consult to go to tertiary center as outpt for b/l pcn ( perc laser nepholithotrypsies) spoke to pt and mother some reluctance needs convincing.
[2016-12-01] MEDS: POLYETHYLENE GLYCOL 3350 119 GM BTL PO SCH ×2 (11:34→21:48)
[2016-12-01] MEDS: HEPARIN NA (PORCINE) 5,000 UNITS/ML 1ML VIAL SQ SCH ×2 (11:34→21:48)
[2016-12-01] MEDS: PANTOPRAZOLE 40 MG TABLET (FP) PO SCH ×2 (11:34→21:48)
[2016-12-01] MEDS: BISACODYL 5 MG TABLET.DR (FP) PO SCH ×2 (11:34→21:48)
[2016-12-01] MEDS: GABAPENTIN 100 MG CAPSULE (FP) PO SCH (11:34)
[2016-12-01] MEDS: ACETAMINOPHEN 500 MG TABLET (FP) PO PRN (15:08)
--- NOTE | 2016-12-01 16:00 | PN ---
Progress Note, Physician Chief Complaint: Nephrolithiasis, decubitus ulcer, constipation History of Present Illness: NAD alert and oriented has constipation with intermittent diarrhea secondary to autonomic dysreflexia. presence of Staghorn renal calculi above left renal fossa, needs percutaneous lithotripsy at tertiary care center. Refused to go to [facility] urethral stents, cystoscopy and lithotripsy Refuses laxatives, only wants mineral enemas Off abx - Current Medication List Current Medications: Active Medications Acetaminophen (Tylenol -) 1,000 mg PO Q6H PRN PRN Reason: FEVER OR PAIN Last Admin: 12/01/16 15:08 Dose: 1,000 mg Bisacodyl (Dulcolax -) 10 mg PO BID [facility] Last Admin: 12/01/16 11:34 Dose: Not Given Diphenhydramine HCl (Benadryl Injection -) 50 mg IVPB BID PRN PRN Reason: FOR ITCHING Last Admin: 11/19/16 22:43 Dose: 50 mg Gabapentin (Neurontin -) 100 mg PO DAILY [facility] Last Admin: 12/01/16 11:34 Dose: Not Given Heparin Sodium (Porcine) (Heparin -) 5,000 unit SQ BID [facility] Last Admin: 12/01/16 11:34 Dose: Not Given IV Flush (Picc Line Flush) 8 ml IVPUSH PRN PRN PRN Reason: Protocol Last Admin: 11/23/16 11:00 Dose: 8 ml IV Flush (Triple Lumen Flush) 4 ml IVPUSH PRN PRN PRN Reason: Protocol Last Admin: 11/28/16 05:50 Dose: 4 ml Lactulose (Cephulac (Oral Use)) 15 gm PO TID PRN PRN Reason: CONSTIPATION Mineral Oil (Mineral Oil -) 30 ml PO BID PRN PRN Reason: CONSTIPATION Last Admin: 11/30/16 11:17 Dose: 30 ml Pantoprazole Sodium (Protonix -) 40 mg PO BID [facility] Last Admin: 12/01/16 11:34 Dose: Not Given Polyethylene Glycol (Miralax (For Daily Use) -) 17 gm PO BID [facility] Last Admin: 12/01/16 11:34 Dose: Not Given - Objective Vital Signs: Vital Signs Temperature 100 F H 12/01/16 15:28 Pulse Rate 104 H 09/18/17 15:28 Respiratory Rate 20 12/01/16 15:28 Blood Pressure 101/70 12/01/16 15:28 O2 Sat by Pulse Oximetry (%) 97 12/01/16 09:00 Constitutional: Yes: Well Nourished, No Distress, Calm Cardiovascular: Yes: Regular Rate and Rhythm Respiratory: Yes: Regular Labs: CBC, BMP 12/01/16 06:19 12/01/16 06:19 Problem List - Problems (1) Chronic indwelling Pelaez catheter Assessment/Plan: -Pelaez changed by Urology with purulent urine today Code(s): Z92.89 - PERSONAL HISTORY OF OTHER MEDICAL TREATMENT (2) Infection with multi-drug resistant microorganisms Assessment/Plan: Off abx ID consult Code(s): Z16.35 - RESISTANCE TO MULTIPLE ANTIMICROBIAL DRUGS (3) Neurogenic bladder Code(s): N31.9 - NEUROMUSCULAR DYSFUNCTION OF BLADDER, UNSPECIFIED (4) Paraplegia following spinal cord injury Code(s): G82.20 - PARAPLEGIA, UNSPECIFIED (5) UTI (urinary tract infection) with pyuria Assessment/Plan: -iv abx -ID on board -repeat urine, wbc increased Code(s): N39.0 - URINARY TRACT INFECTION, SITE NOT SPECIFIED (6) Back pain Assessment/Plan: -gabapentin for pain Code(s): M54.9 - DORSALGIA, UNSPECIFIED Qualifiers: Back pain location: thoracic back pain Back pain laterality: bilateral (7) Constipation Assessment/Plan: -GI on board -refusing laxatives, mineral oil enema -GI to evaluate the patient again Code(s): K59.00 - CONSTIPATION, UNSPECIFIED Qualifiers: Constipation type: unspecified constipation type Qualified Code(s): K59.00 - Constipation, unspecified (8) Anemia Assessment/Plan: -received Iron sucrose -Hematology on board -H/H stable Code(s): D64.9 - ANEMIA, UNSPECIFIED Qualifiers: Anemia type: iron deficiency Other causes of anemia: due to other specified chronic disease Assessment/Plan -labs in AM -being monitored off abx -needs percuatneous lithotripsy at a tertiary center, is refusing it -Originally he has [employer] for 4 hours per day and his mother to provide care. -DVT and GI prophylaxis
[2016-12-01] MEDS: MEROPENEM 500 MG in DEXTROSE 5%-WATER - 100 ML IVPB SCH (17:56)
[2016-12-01] MEDS ORDERED: MEROPENEM 500 MG VIAL (RESTRICTED TO ID) IVPB SCH (18:00)
[2016-12-01] MEDS: TRIPLE LUMEN FLUSH 4 ML ML IVPUSH PRN (19:28)
[2016-12-01] MEDS ORDERED: PT OWN MED DRAWER 7, Y5N ONE (20:09)
[2016-12-01] MEDS: SIMETHICONE 80 MG TAB.CHEW (FP) PO PRN (23:28)
[2016-12-02] MEDS ORDERED: PT OWN MED DRAWER 7, Y5N ONE ×4 (01:05→18:04)
[2016-12-02] MEDS: MEROPENEM 500 MG in DEXTROSE 5%-WATER - 100 ML IVPB SCH ×3 (01:21→18:14)
[2016-12-02] MEDS: ACETAMINOPHEN 500 MG TABLET (FP) PO PRN ×2 (01:32→18:13)
[2016-12-02 07:34] LABS: BASOPHIL 0.4 % (0-2.0); EOSINOPHIL 1.6 % (0-4.5); MCH 23.6 pg (25.7-33.7); MCHC 31.4 g/dl (32.0-35.9); MEAN CELL VOLUME 75.3 fl (80-96); MEAN PLT VOLUME 7.5 fl (7.5-11.1); NEUTROPHILS 77.3 % (42.8-82.8); PLATELET COUNT 345 K/MM3 (134-434); RDW 23.9 % (11.9-15.9); WHITE BLOOD COUNT 11.6 K/mm3 (4.0-10.0)
[2016-12-02 10:08] LABS: ANISOCYTOSIS 2+; HYPOCHROMIA 2+; MACROCYTOSIS FEW
[2016-12-02] MEDS: BISACODYL 5 MG TABLET.DR (FP) PO SCH ×2 (11:15→21:46)
[2016-12-02] MEDS: HEPARIN NA (PORCINE) 5,000 UNITS/ML 1ML VIAL SQ SCH ×2 (11:16→21:46)
[2016-12-02] MEDS: POLYETHYLENE GLYCOL 3350 119 GM BTL PO SCH ×2 (11:19→21:46)
[2016-12-02] MEDS: GABAPENTIN 100 MG CAPSULE (FP) PO SCH (11:19)
[2016-12-02] MEDS: PANTOPRAZOLE 40 MG TABLET (FP) PO SCH ×3 (11:20→21:46)
--- NOTE | 2016-12-02 11:31 | PN ---
Progress Note, Physician Chief Complaint: Nephrolithiasis, decubitus ulcer, constipation History of Present Illness: NAD alert and oriented has constipation with intermittent diarrhea secondary to autonomic dysreflexia. had 3 Bowel movments yesterday, still distended.Refuses laxatives, only wants mineral enemas which he received 2 days ago Nausea/ vomiting x 1 earlier today presence of Staghorn renal calculi above left renal fossa, needs percutaneous lithotripsy at tertiary care center. Refused to go to [facility] s/[facility] urethral stents, cystoscopy and lithotripsy was febrile yesterday afternoon, restarted on abx to be seen by ID again Resistant to making a decision about either going home or to tertiary care center for percutaneous lithotripsy preliminary UC shows Non lactose fermenting GNB- had Pseudomonas Aeruginosa previous UC - Current Medication List Current Medications: Active Medications Acetaminophen (Tylenol -) 1,000 mg PO Q6H PRN PRN Reason: FEVER OR PAIN Last Admin: 12/02/16 01:32 Dose: 500 mg Bisacodyl (Dulcolax -) 10 mg PO BID [facility] Last Admin: 12/02/16 11:15 Dose: Not Given Diphenhydramine HCl (Benadryl Injection -) 50 mg IVPB BID PRN PRN Reason: FOR ITCHING Last Admin: 11/19/16 22:43 Dose: 50 mg Gabapentin (Neurontin -) 100 mg PO DAILY [facility] Last Admin: 12/02/16 11:19 Dose: Not Given Heparin Sodium (Porcine) (Heparin -) 5,000 unit SQ BID [facility] Last Admin: 12/02/16 11:16 Dose: Not Given IV Flush (Picc Line Flush) 8 ml IVPUSH PRN PRN PRN Reason: Protocol Last Admin: 11/23/16 11:00 Dose: 8 ml IV Flush (Triple Lumen Flush) 4 ml IVPUSH PRN PRN PRN Reason: Protocol Last Admin: 12/01/16 19:28 Dose: 4 ml Meropenem 500 mg/ Dextrose 100 mls @ 200 mls/hr IVPB Q8H-IV [facility] Last Admin: 12/02/16 01:21 Dose: 200 mls/hr Lactulose (Cephulac (Oral Use)) 15 gm PO TID PRN PRN Reason: CONSTIPATION Mineral Oil (Mineral Oil -) 30 ml PO BID PRN PRN Reason: CONSTIPATION Last Admin: 11/30/16 11:17 Dose: 30 ml Pantoprazole Sodium (Protonix -) 40 mg PO BID [facility] Last Admin: 12/02/16 11:20 Dose: Not Given Polyethylene Glycol (Miralax (For Daily Use) -) 17 gm PO BID [facility] Last Admin: 12/02/16 11:19 Dose: Not Given Simethicone (Mylicon -) 80 mg PO QID PRN Last Admin: 12/01/16 23:28 Dose: 80 mg - Objective Vital Signs: Vital Signs Temperature 98.8 F 12/02/16 09:02 Pulse Rate 94 H 12/02/16 09:02 Respiratory Rate 16 12/02/16 09:02 Blood Pressure 114/74 12/02/16 09:02 O2 Sat by Pulse Oximetry (%) 97 12/01/16 20:46 Constitutional: Yes: Well Nourished, No Distress, Calm Cardiovascular: Yes: Regular Rate and Rhythm Respiratory: Yes: Regular Gastrointestinal: Yes: Distention, Hypoactive Bowel Sounds, Vomiting Edema: No Peripheral Pulses WNL: Yes Neurological: Yes: Alert, Oriented Psychiatric: Yes: Alert, Oriented Labs: CBC, BMP 12/02/16 06:00 12/01/16 06:19 Problem List - Problems (1) Chronic indwelling Pelaez catheter Assessment/Plan: -Pelaez changed by Urology with purulent urine -UC: Microbiology 11/30/16 14:30 Urine Culture - Preliminary Urine - Urine - Catheterized Non Lactose Fermenting Gnb 11/29/16 19:25 Blood Culture - Preliminary Blood - Peripheral Venous NO GROWTH OBTAINED AFTER 48 HOURS, INCUBATION TO CONTINUE FOR 3 DAYS. 11/29/16 17:12 Blood Culture - Preliminary Blood - Central Line NO GROWTH OBTAINED AFTER 48 HOURS, INCUBATION TO CONTINUE FOR 3 DAYS. Code(s): Z92.89 - PERSONAL HISTORY OF OTHER MEDICAL TREATMENT (2) Infection with multi-drug resistant microorganisms Assessment/Plan: Abx restarted due to rise in WBC and fever ID on board Code(s): Z16.35 - RESISTANCE TO MULTIPLE ANTIMICROBIAL DRUGS (3) Neurogenic bladder Code(s): N31.9 - NEUROMUSCULAR DYSFUNCTION OF BLADDER, UNSPECIFIED (4) Paraplegia following spinal cord injury Code(s): G82.20 - PARAPLEGIA, UNSPECIFIED (5) UTI (urinary tract infection) with pyuria Assessment/Plan: -iv abx -ID on board -wbc increased, repeat UC positive for NLF GNB Code(s): N39.0 - URINARY TRACT INFECTION, SITE NOT SPECIFIED (6) Back pain Assessment/Plan: -gabapentin for pain Code(s): M54.9 - DORSALGIA, UNSPECIFIED Qualifiers: Back pain location: thoracic back pain Back pain laterality: bilateral (7) Constipation Assessment/Plan: -GI on board -refusing laxatives, mineral oil enema -GI to evaluate the patient again Code(s): K59.00 - CONSTIPATION, UNSPECIFIED Qualifiers: Constipation type: unspecified constipation type Qualified Code(s): K59.00 - Constipation, unspecified (8) Anemia Assessment/Plan: -received Iron sucrose -Hematology on board -H/H stable Code(s): D64.9 - ANEMIA, UNSPECIFIED Qualifiers: Anemia type: iron deficiency Other causes of anemia: due to other specified chronic disease Assessment/Plan -labs in AM -IV abx -needs percuatneous lithotripsy at a tertiary center, is refusing it -Originally he has [employer] for 4 hours per day and his mother to provide care. -DVT and GI prophylaxis -encouraged to take laxatives and enema -Also encouraged to consider the option of going lithotripsy
--- NOTE | 2016-12-02 13:30 | PN ---
Progress Note, Physician History of Present Illness: Low grade temp noted No c/o chills No other focal complaint WBC slightly elevated BC no growth Urine c/s GNR - Current Medication List Current Medications: Active Medications Acetaminophen (Tylenol -) 1,000 mg PO Q6H PRN PRN Reason: FEVER OR PAIN Last Admin: 12/02/16 01:32 Dose: 500 mg Bisacodyl (Dulcolax -) 10 mg PO BID [facility] Last Admin: 12/02/16 11:15 Dose: Not Given Diphenhydramine HCl (Benadryl Injection -) 50 mg IVPB BID PRN PRN Reason: FOR ITCHING Last Admin: 11/19/16 22:43 Dose: 50 mg Gabapentin (Neurontin -) 100 mg PO DAILY [facility] Last Admin: 12/02/16 11:19 Dose: Not Given Heparin Sodium (Porcine) (Heparin -) 5,000 unit SQ BID [facility] Last Admin: 12/02/16 11:16 Dose: Not Given IV Flush (Picc Line Flush) 8 ml IVPUSH PRN PRN PRN Reason: Protocol Last Admin: 11/23/16 11:00 Dose: 8 ml IV Flush (Triple Lumen Flush) 4 ml IVPUSH PRN PRN PRN Reason: Protocol Last Admin: 12/01/16 19:28 Dose: 4 ml Meropenem 500 mg/ Dextrose 100 mls @ 200 mls/hr IVPB Q8H-IV [facility] Last Admin: 12/02/16 11:55 Dose: 200 mls/hr Lactulose (Cephulac (Oral Use)) 15 gm PO TID PRN PRN Reason: CONSTIPATION Mineral Oil (Mineral Oil -) 30 ml PO BID PRN PRN Reason: CONSTIPATION Last Admin: 11/30/16 11:17 Dose: 30 ml Pantoprazole Sodium (Protonix -) 40 mg PO BID [facility] Last Admin: 12/02/16 11:20 Dose: Not Given Polyethylene Glycol (Miralax (For Daily Use) -) 17 gm PO BID [facility] Last Admin: 12/02/16 11:19 Dose: Not Given Simethicone (Mylicon -) 80 mg PO QID PRN Last Admin: 12/01/16 23:28 Dose: 80 mg - Objective Vital Signs: Vital Signs Temperature 98.8 F 12/02/16 09:02 Pulse Rate 94 H 09/19/17 09:02 Respiratory Rate 16 12/02/16 09:02 Blood Pressure 114/74 12/02/16 09:02 O2 Sat by Pulse Oximetry (%) 97 12/01/16 20:46 Constitutional: Yes: Cachectic Eyes: Yes: Conjunctiva Clear Cardiovascular: Yes: Regular Rate and Rhythm, S1, S2 Respiratory: Yes: CTA Bilaterally Gastrointestinal: Yes: Normal Bowel Sounds, Soft, Other (distended). No: Tenderness Genitourinary: Yes: Pelaez Present Integumentary: Yes: Other (+ stage III sacral decubitus ; no purulent drainage) Labs: CBC, BMP 12/02/16 06:00 12/01/16 06:19 Assessment/Plan Obstructive uropathy s/p stents Hx MDR urinary tract pathogens Low grade temp/ leukocytosis Paraplegia Sacral decubitus Await culture results Continue meropenem Contact precautions
[2016-12-02] MEDS ORDERED: MINERAL OIL ENEMA 133 ML ENEMA PR ONE (13:45)
[2016-12-02 14:14] LABS: COLOR Brown (.); SIZE 1x1x1 mm (.)
[2016-12-02] MEDS: SIMETHICONE 80 MG TAB.CHEW (FP) PO PRN (18:12)
[2016-12-02] MEDS: TRIPLE LUMEN FLUSH 4 ML ML IVPUSH PRN (18:19)
[2016-12-03] MEDS ORDERED: PT OWN MED DRAWER 7, Y5N ONE ×3 (02:16→10:40)
[2016-12-03] MEDS: MEROPENEM 500 MG in DEXTROSE 5%-WATER - 100 ML IVPB SCH ×3 (02:22→18:21)
[2016-12-03] MEDS: POLYETHYLENE GLYCOL 3350 119 GM BTL PO SCH ×2 (10:45→22:31)
[2016-12-03] MEDS: PANTOPRAZOLE 40 MG TABLET (FP) PO SCH ×2 (10:45→22:31)
[2016-12-03] MEDS: GABAPENTIN 100 MG CAPSULE (FP) PO SCH (10:45)
[2016-12-03] MEDS: HEPARIN NA (PORCINE) 5,000 UNITS/ML 1ML VIAL SQ SCH (10:45)
[2016-12-03] MEDS: BISACODYL 5 MG TABLET.DR (FP) PO SCH ×2 (10:45→22:31)
[2016-12-03] MEDS: SIMETHICONE 80 MG TAB.CHEW (FP) PO PRN (10:46)
[2016-12-03] MEDS: MINERAL OIL 30 ML UNIT-DOSE CUP PO PRN ×2 (10:46→22:32)
[2016-12-03] MEDS: TRIPLE LUMEN FLUSH 4 ML ML IVPUSH PRN (10:47)
--- NOTE | 2016-12-03 11:36 | PN ---
Progress Note, Physician History of Present Illness: Awake, alert No focal complaint Afebrile WBC WNL BC (-) Urine c/s Pseudomonas, likley colonizer - Current Medication List Current Medications: Active Medications Acetaminophen (Tylenol -) 1,000 mg PO Q6H PRN PRN Reason: FEVER OR PAIN Last Admin: 12/02/16 18:13 Dose: 1,000 mg Bisacodyl (Dulcolax -) 10 mg PO BID [facility] Last Admin: 12/03/16 10:45 Dose: Not Given Diphenhydramine HCl (Benadryl Injection -) 50 mg IVPB BID PRN PRN Reason: FOR ITCHING Last Admin: 11/19/16 22:43 Dose: 50 mg Gabapentin (Neurontin -) 100 mg PO DAILY [facility] Last Admin: 12/03/16 10:45 Dose: 100 mg Heparin Sodium (Porcine) (Heparin -) 5,000 unit SQ BID [facility] Last Admin: 12/03/16 10:45 Dose: Not Given IV Flush (Picc Line Flush) 8 ml IVPUSH PRN PRN PRN Reason: Protocol Last Admin: 11/23/16 11:00 Dose: 8 ml IV Flush (Triple Lumen Flush) 4 ml IVPUSH PRN PRN PRN Reason: Protocol Last Admin: 12/03/16 10:47 Dose: 4 ml Meropenem 500 mg/ Dextrose 100 mls @ 200 mls/hr IVPB Q8H-IV [facility] Last Admin: 12/03/16 02:22 Dose: 200 mls/hr Lactulose (Cephulac (Oral Use)) 15 gm PO TID PRN PRN Reason: CONSTIPATION Mineral Oil (Mineral Oil -) 30 ml PO BID PRN PRN Reason: CONSTIPATION Last Admin: 12/03/16 10:46 Dose: 30 ml Pantoprazole Sodium (Protonix -) 40 mg PO BID [facility] Last Admin: 12/03/16 10:45 Dose: 40 mg Polyethylene Glycol (Miralax (For Daily Use) -) 17 gm PO BID [facility] Last Admin: 12/03/16 10:45 Dose: Not Given Simethicone (Mylicon -) 80 mg PO QID PRN Last Admin: 12/03/16 10:46 Dose: 80 mg - Objective Vital Signs: Vital Signs Temperature 98.5 F 12/03/16 09:10 Pulse Rate 102 H 12/03/16 09:10 Respiratory Rate 20 12/03/16 09:10 Blood Pressure 93/50 12/03/16 09:10 O2 Sat by Pulse Oximetry (%) 96 12/02/16 21:00 Constitutional: Yes: No Distress Eyes: Yes: Conjunctiva Clear Cardiovascular: Yes: Regular Rate and Rhythm, S1, S2 Respiratory: Yes: Diminished Gastrointestinal: Yes: Normal Bowel Sounds, Soft, Other (less distended) Extremities: Yes: Other (+ ST swelling above L groin wound; no erythema non-tender (pt with absent sensation)) Labs: CBC, BMP 12/02/16 06:00 12/01/16 06:19 Assessment/Plan Obstructive uropathy s/p stents Hx MDR urinary tract pathogens Low grade temp/ leukocytosis Paraplegia Sacral decubitus Discontinue meropenem next 24hr, observe off Contact precautions
--- NOTE | 2016-12-03 15:51 | PN ---
Progress Note, Physician Chief Complaint: Nephrolithiasis, decubitus ulcer, constipation History of Present Illness: NAD alert and oriented has constipation with intermittent diarrhea secondary to autonomic dysreflexia. Refuses laxatives, only wants mineral enemas, received 1 yesterday Had BM yesterday, No nausea/vomiting today abdomen less distended seen by ID, IV abx on hold UC growing Pseudomonas Resistant to making a decision about either going home or to tertiary care center for percutaneous lithotripsy - Current Medication List Current Medications: Active Medications Acetaminophen (Tylenol -) 1,000 mg PO Q6H PRN PRN Reason: FEVER OR PAIN Last Admin: 12/02/16 18:13 Dose: 1,000 mg Bisacodyl (Dulcolax -) 10 mg PO BID [facility] Last Admin: 12/03/16 10:45 Dose: Not Given Diphenhydramine HCl (Benadryl Injection -) 50 mg IVPB BID PRN PRN Reason: FOR ITCHING Last Admin: 11/19/16 22:43 Dose: 50 mg Gabapentin (Neurontin -) 100 mg PO DAILY [facility] Last Admin: 12/03/16 10:45 Dose: 100 mg Heparin Sodium (Porcine) (Heparin -) 5,000 unit SQ BID [facility] Last Admin: 12/03/16 10:45 Dose: Not Given IV Flush (Picc Line Flush) 8 ml IVPUSH PRN PRN PRN Reason: Protocol Last Admin: 11/23/16 11:00 Dose: 8 ml IV Flush (Triple Lumen Flush) 4 ml IVPUSH PRN PRN PRN Reason: Protocol Last Admin: 12/03/16 10:47 Dose: 4 ml Meropenem 500 mg/ Dextrose 100 mls @ 200 mls/hr IVPB Q8H-IV [facility] Last Admin: 12/03/16 13:51 Dose: 200 mls/hr Lactulose (Cephulac (Oral Use)) 15 gm PO TID PRN PRN Reason: CONSTIPATION Mineral Oil (Mineral Oil -) 30 ml PO BID PRN PRN Reason: CONSTIPATION Last Admin: 12/03/16 10:46 Dose: 30 ml Pantoprazole Sodium (Protonix -) 40 mg PO BID [facility] Last Admin: 12/03/16 10:45 Dose: 40 mg Polyethylene Glycol (Miralax (For Daily Use) -) 17 gm PO BID [facility] Last Admin: 12/03/16 10:45 Dose: Not Given Simethicone (Mylicon -) 80 mg PO QID PRN Last Admin: 12/03/16 10:46 Dose: 80 mg - Objective Vital Signs: Vital Signs Temperature 98.5 F 12/03/16 09:10 Pulse Rate 102 H 12/03/16 09:10 Respiratory Rate 20 12/03/16 09:10 Blood Pressure 93/50 12/03/16 09:10 O2 Sat by Pulse Oximetry (%) 96 12/02/16 21:00 Constitutional: Yes: Well Nourished, No Distress, Calm Cardiovascular: Yes: Regular Rate and Rhythm Respiratory: Yes: Regular Gastrointestinal: Yes: Distention Genitourinary: Yes: Pelaez Present Edema: Yes (left hip) Neurological: Yes: Alert, Oriented Psychiatric: Yes: Alert, Oriented Labs: CBC, BMP 12/02/16 06:00 12/01/16 06:19 Problem List - Problems (1) Chronic indwelling Pelaez catheter Assessment/Plan: -Pelaez changed by Urology 2 days ago with purulent urine -UC: Microbiology 11/30/16 14:30 Urine Culture - Final Urine - Urine - Catheterized Pseudomonas Aeruginosa 11/29/16 19:25 Blood Culture - Preliminary Blood - Peripheral Venous NO GROWTH OBTAINED AFTER 72 HOURS, INCUBATION TO CONTINUE FOR 2 DAYS. 11/29/16 17:12 Blood Culture - Preliminary Blood - Central Line NO GROWTH OBTAINED AFTER 72 HOURS, INCUBATION TO CONTINUE FOR 2 DAYS. Code(s): Z92.89 - PERSONAL HISTORY OF OTHER MEDICAL TREATMENT (2) Infection with multi-drug resistant microorganisms Assessment/Plan: ID on board abx on hold repeat labs in AM afebrile VSS Code(s): Z16.35 - RESISTANCE TO MULTIPLE ANTIMICROBIAL DRUGS (3) Neurogenic bladder Code(s): N31.9 - NEUROMUSCULAR DYSFUNCTION OF BLADDER, UNSPECIFIED (4) Paraplegia following spinal cord injury Code(s): G82.20 - PARAPLEGIA, UNSPECIFIED (5) UTI (urinary tract infection) with pyuria Assessment/Plan: -iv abx on hold -ID on board -repeat labs in AM -UC positive for Pseudomonas Code(s): N39.0 - URINARY TRACT INFECTION, SITE NOT SPECIFIED (6) Back pain Assessment/Plan: -gabapentin for pain Code(s): M54.9 - DORSALGIA, UNSPECIFIED Qualifiers: Back pain location: thoracic back pain Back pain laterality: bilateral (7) Constipation Assessment/Plan: -GI on board -refusing laxatives, mineral oil enema -Awaiting GI to evaluate the patient again Code(s): K59.00 - CONSTIPATION, UNSPECIFIED Qualifiers: Constipation type: unspecified constipation type Qualified Code(s): K59.00 - Constipation, unspecified (8) Anemia Assessment/Plan: -received Iron sucrose -Hematology on board -H/H stable Code(s): D64.9 - ANEMIA, UNSPECIFIED Qualifiers: Anemia type: iron deficiency Other causes of anemia: due to other specified chronic disease (9) Bilateral nephrolithiasis Assessment/Plan: -BL Ureteral stents placed this admission for BL hydronephrosis -needs percuatneous lithotripsy at a tertiary center, is refusing it Code(s): N20.0 - CALCULUS OF KIDNEY Assessment/Plan Encouraged to go for percuatneous lithotripsy Left hip Xray
[2016-12-04] MEDS: MEROPENEM 500 MG in DEXTROSE 5%-WATER - 100 ML IVPB SCH ×2 (01:01→09:19)
[2016-12-04 07:21] LABS: BASOPHIL 0.5 % (0-2.0); EOSINOPHIL 1.2 % (0-4.5); MCH 23.8 pg (25.7-33.7); MCHC 31.7 g/dl (32.0-35.9); MEAN CELL VOLUME 74.9 fl (80-96); MEAN PLT VOLUME 6.9 fl (7.5-11.1); NEUTROPHILS 79.7 % (42.8-82.8); PLATELET COUNT 328 K/MM3 (134-434); RDW 23.3 % (11.9-15.9); WHITE BLOOD COUNT 13.1 K/mm3 (4.0-10.0)
[2016-12-04 08:09] LABS: ALBUMIN 1.5 g/dl (3.4-5.0); ALK PHOS 110 U/L (45-117); ANION GAP 7 (8-16); BILIRUBIN,TOTAL 0.3 mg/dL (0.2-1.0); CALCIUM 7.8 mg/dL (8.5-10.1); CO2 28 mmol/L (21-32); CREATININE 0.7 mg/dL (0.7-1.3); GLUCOSE,RANDOM 99 mg/dL (74-106); SGOT/AST 18 U/L (15-37); SGPT/ALT 20 U/L (12-78); TOT PROT 6.7 g/dl (6.4-8.2)
[2016-12-04] MEDS ORDERED: PT OWN MED DRAWER 7, Y5N ONE ×3 (09:15→18:14)
[2016-12-04] MEDS: POLYETHYLENE GLYCOL 3350 119 GM BTL PO SCH ×2 (09:19→22:26)
[2016-12-04] MEDS: BISACODYL 5 MG TABLET.DR (FP) PO SCH ×2 (09:19→22:26)
[2016-12-04] MEDS: GABAPENTIN 100 MG CAPSULE (FP) PO SCH (09:20)
[2016-12-04] MEDS: MINERAL OIL 30 ML UNIT-DOSE CUP PO PRN ×2 (09:20→22:27)
[2016-12-04] MEDS: PANTOPRAZOLE 40 MG TABLET (FP) PO SCH ×2 (09:20→22:26)
[2016-12-04] MEDS ORDERED: POTASSIUM CHLORIDE TABS 20 MEQ TABLET.ER (FP) PO ONE ×2 (10:25→14:45)
--- NOTE | 2016-12-04 10:25 | PN ---
Progress Note, Physician Chief Complaint: Nephrolithiasis, decubitus ulcer, constipation History of Present Illness: NAD alert and oriented has constipation with intermittent diarrhea secondary to autonomic dysreflexia. Refuses laxatives, only wants mineral enemas, received 1 yesterday Had BM yesterday, No nausea/vomiting today abdomen less distended seen by ID, IV abx WBC increased UC growing Pseudomonas Resistant to making a decision about either going home or to tertiary care center for percutaneous lithotripsy - Current Medication List Current Medications: Active Medications Acetaminophen (Tylenol -) 1,000 mg PO Q6H PRN PRN Reason: FEVER OR PAIN Last Admin: 12/02/16 18:13 Dose: 1,000 mg Bisacodyl (Dulcolax -) 10 mg PO BID [facility] Last Admin: 12/04/16 09:19 Dose: Not Given Diphenhydramine HCl (Benadryl Injection -) 50 mg IVPB BID PRN PRN Reason: FOR ITCHING Last Admin: 11/19/16 22:43 Dose: 50 mg Gabapentin (Neurontin -) 100 mg PO DAILY [facility] Last Admin: 12/04/16 09:20 Dose: 100 mg IV Flush (Picc Line Flush) 8 ml IVPUSH PRN PRN PRN Reason: Protocol Last Admin: 11/23/16 11:00 Dose: 8 ml IV Flush (Triple Lumen Flush) 4 ml IVPUSH PRN PRN PRN Reason: Protocol Last Admin: 12/03/16 10:47 Dose: 4 ml Meropenem 500 mg/ Dextrose 100 mls @ 200 mls/hr IVPB Q8H-IV [facility] Last Admin: 12/04/16 09:19 Dose: 200 mls/hr Lactulose (Cephulac (Oral Use)) 15 gm PO TID PRN PRN Reason: CONSTIPATION Mineral Oil (Mineral Oil -) 30 ml PO BID PRN PRN Reason: CONSTIPATION Last Admin: 12/04/16 09:20 Dose: 30 ml Pantoprazole Sodium (Protonix -) 40 mg PO BID [facility] Last Admin: 12/04/16 09:20 Dose: 40 mg Polyethylene Glycol (Miralax (For Daily Use) -) 17 gm PO BID [facility] Last Admin: 12/04/16 09:19 Dose: Not Given Simethicone (Mylicon -) 80 mg PO QID PRN Last Admin: 12/03/16 10:46 Dose: 80 mg - Objective Vital Signs: Vital Signs Temperature 98.6 F 12/04/16 08:47 Pulse Rate 92 H 12/04/16 08:47 Respiratory Rate 20 12/04/16 08:47 Blood Pressure 97/58 12/04/16 08:47 O2 Sat by Pulse Oximetry (%) 97 12/03/16 21:00 Constitutional: Yes: Well Nourished, No Distress, Calm Cardiovascular: Yes: Regular Rate and Rhythm Respiratory: Yes: Regular Gastrointestinal: Yes: Distention, Hypoactive Bowel Sounds Edema: No Peripheral Pulses WNL: Yes Wound/Incision: Yes: Dressing Dry and Intact, Other (left groin wound-chronic, Dr Kartik jacob) Neurological: Yes: Alert, Oriented Psychiatric: Yes: Alert, Oriented Labs: CBC, BMP 12/04/16 06:00 12/04/16 06:00 Problem List - Problems (1) Chronic indwelling Pelaez catheter Assessment/Plan: -Pelaez changed by Urology 2 days ago with purulent urine -UC: Microbiology 11/30/16 14:30 Urine Culture - Final Urine - Urine - Catheterized Pseudomonas Aeruginosa 11/29/16 19:25 Blood Culture - Preliminary Blood - Peripheral Venous NO GROWTH OBTAINED AFTER 72 HOURS, INCUBATION TO CONTINUE FOR 2 DAYS. 11/29/16 17:12 Blood Culture - Preliminary Blood - Central Line NO GROWTH OBTAINED AFTER 72 HOURS, INCUBATION TO CONTINUE FOR 2 DAYS. Code(s): Z92.89 - PERSONAL HISTORY OF OTHER MEDICAL TREATMENT (2) Infection with multi-drug resistant microorganisms Assessment/Plan: ID on board IV abx WBC increased repeat labs in AM afebrile VSS Code(s): Z16.35 - RESISTANCE TO MULTIPLE ANTIMICROBIAL DRUGS (3) Neurogenic bladder Assessment/Plan: Chronic Pelaez catheter Code(s): N31.9 - NEUROMUSCULAR DYSFUNCTION OF BLADDER, UNSPECIFIED (4) Paraplegia following spinal cord injury Code(s): G82.20 - PARAPLEGIA, UNSPECIFIED (5) UTI (urinary tract infection) with pyuria Assessment/Plan: -iv abx -ID on board -repeat labs in AM -UC positive for Pseudomonas Code(s): N39.0 - URINARY TRACT INFECTION, SITE NOT SPECIFIED (6) Back pain Assessment/Plan: -gabapentin for pain Code(s): M54.9 - DORSALGIA, UNSPECIFIED Qualifiers: Back pain location: thoracic back pain Back pain laterality: bilateral (7) Constipation Assessment/Plan: -GI on board -refusing laxatives, mineral oil enema -Awaiting GI to evaluate the patient again Code(s): K59.00 - CONSTIPATION, UNSPECIFIED Qualifiers: Constipation type: unspecified constipation type Qualified Code(s): K59.00 - Constipation, unspecified (8) Anemia Assessment/Plan: -received Iron sucrose -Hematology on board -H/H stable Code(s): D64.9 - ANEMIA, UNSPECIFIED Qualifiers: Anemia type: iron deficiency Other causes of anemia: due to other specified chronic disease (9) Bilateral nephrolithiasis Assessment/Plan: -BL Ureteral stents placed this admission for BL hydronephrosis -needs percuatneous lithotripsy at a tertiary center, is refusing it Code(s): N20.0 - CALCULUS OF KIDNEY (10) Effusion of hip Assessment/Plan: left hip Xray pending Code(s): M25.459 - EFFUSION, UNSPECIFIED HIP Qualifiers: Laterality: left Qualified Code(s): M25.452 - Effusion, left hip Assessment/Plan see problem list
--- NOTE | 2016-12-04 11:29 | PN ---
Progress Note, Physician History of Present Illness: Awake, alert No focal complaint No c/o fever/ chills Remains afebrile with mildly elevated WBC - Current Medication List Current Medications: Active Medications Acetaminophen (Tylenol -) 1,000 mg PO Q6H PRN PRN Reason: FEVER OR PAIN Last Admin: 12/02/16 18:13 Dose: 1,000 mg Bisacodyl (Dulcolax -) 10 mg PO BID [facility] Last Admin: 12/04/16 09:19 Dose: Not Given Diphenhydramine HCl (Benadryl Injection -) 50 mg IVPB BID PRN PRN Reason: FOR ITCHING Last Admin: 11/19/16 22:43 Dose: 50 mg Gabapentin (Neurontin -) 100 mg PO DAILY [facility] Last Admin: 12/04/16 09:20 Dose: 100 mg IV Flush (Picc Line Flush) 8 ml IVPUSH PRN PRN PRN Reason: Protocol Last Admin: 11/23/16 11:00 Dose: 8 ml IV Flush (Triple Lumen Flush) 4 ml IVPUSH PRN PRN PRN Reason: Protocol Last Admin: 12/03/16 10:47 Dose: 4 ml Meropenem 500 mg/ Dextrose 100 mls @ 200 mls/hr IVPB Q8H-IV [facility] Last Admin: 12/04/16 09:19 Dose: 200 mls/hr Lactulose (Cephulac (Oral Use)) 15 gm PO TID PRN PRN Reason: CONSTIPATION Mineral Oil (Mineral Oil -) 30 ml PO BID PRN PRN Reason: CONSTIPATION Last Admin: 12/04/16 09:20 Dose: 30 ml Pantoprazole Sodium (Protonix -) 40 mg PO BID [facility] Last Admin: 12/04/16 09:20 Dose: 40 mg Polyethylene Glycol (Miralax (For Daily Use) -) 17 gm PO BID [facility] Last Admin: 12/04/16 09:19 Dose: Not Given Simethicone (Mylicon -) 80 mg PO QID PRN Last Admin: 12/03/16 10:46 Dose: 80 mg - Objective Vital Signs: Vital Signs Temperature 98.6 F 12/04/16 08:47 Pulse Rate 92 H 12/04/16 08:47 Respiratory Rate 20 12/04/16 08:47 Blood Pressure 97/58 12/04/16 08:47 O2 Sat by Pulse Oximetry (%) 97 12/03/16 21:00 Constitutional: Yes: No Distress, Cachectic Cardiovascular: Yes: Regular Rate and Rhythm, S1, S2 Respiratory: Yes: CTA Bilaterally Gastrointestinal: Yes: Normal Bowel Sounds, Soft, Other (slightly distended, tympanitic) Extremities: Yes: Other (+ soft tissue swelling L hip area) Labs: CBC, BMP 12/04/16 06:00 12/04/16 06:00 Assessment/Plan Obstructive uropathy s/p stents Hx MDR urinary tract pathogens Low grade temp/ leukocytosis Paraplegia Sacral decubitus Discontinue meropenem observe off Contact precautions
[2016-12-04] MEDS ORDERED: IRON SUCROSE INJECTION 100 MG in SODIUM CHLORIDE 95 ML IVPB ONE (16:52)
--- NOTE | 2016-12-04 21:14 | PN ---
Progress Note (short form) - Note Progress Note: PAtient seen and examined Denies any complaints low grade temps 100.1 Cor: RSR, bowel distended Lungs: Clear to P&A Abd: Soft, Normal bowel sounds, No organomegaly Ext:No significant edema labs/meds reviewed A/P 51 y/o with paraplegia, hirschsprungs colon, sacral decubitus, recurrent UTIs Anemia; multifactorial---chronic disease+ iron deficiency Iron saturation 6% Ferritin 300s will dose iv iron no.4 as he has severe constiPation with PO iron if needs blood transfusion if Hgb <7 will need premeds with tylenol and benadryl + hydrocortisone anemia of chronic disease due to ongoing infections+/- iron deficiency
[2016-12-04] MEDS: SIMETHICONE 80 MG TAB.CHEW (FP) PO PRN (22:26)
[2016-12-05 07:41] LABS: BASOPHIL 0.4 % (0-2.0); EOSINOPHIL 1.1 % (0-4.5); MCH 23.8 pg (25.7-33.7); MCHC 31.5 g/dl (32.0-35.9); MEAN CELL VOLUME 75.4 fl (80-96); MEAN PLT VOLUME 7.1 fl (7.5-11.1); NEUTROPHILS 80.5 % (42.8-82.8); PLATELET COUNT 311 K/MM3 (134-434); RDW 24.3 % (11.9-15.9); WHITE BLOOD COUNT 15.2 K/mm3 (4.0-10.0)
[2016-12-05 07:53] LABS: CALCIUM 7.9 mg/dL (8.5-10.1)
[2016-12-05 08:02] LABS: ALBUMIN 1.6 g/dl (3.4-5.0); ALK PHOS 116 U/L (45-117); ANION GAP 10 (8-16); BILIRUBIN,TOTAL 0.4 mg/dL (0.2-1.0); CO2 26 mmol/L (21-32); CREATININE 0.6 mg/dL (0.7-1.3); GLUCOSE,RANDOM 98 mg/dL (74-106); SGOT/AST 36 U/L (15-37); SGPT/ALT 29 U/L (12-78); TOT PROT 6.8 g/dl (6.4-8.2)
--- NOTE | 2016-12-05 09:04 | PN ---
Progress Note, Physician Chief Complaint: Nephrolithiasis, decubitus ulcer, constipation History of Present Illness: NAD alert and oriented has constipation with intermittent diarrhea secondary to autonomic dysreflexia. Refuses laxatives, only wants mineral enemas, received 1 yesterday Had BM yesterday, No nausea/vomiting today abdomen less distended seen by ID, IV abx on hold WBC increased low grade temp yesterday afternoon UC growing Pseudomonas left gluteal swelling/abscess formation secondary to decubitus in the sacral region? Left hip xray insignificant await re-evaluation by Dr Verdugo, r/o osteo Resistant to making a decision about either going home or to tertiary care center for percutaneous lithotripsy - Current Medication List Current Medications: Active Medications Acetaminophen (Tylenol -) 1,000 mg PO Q6H PRN PRN Reason: FEVER OR PAIN Last Admin: 12/02/16 18:13 Dose: 1,000 mg Bisacodyl (Dulcolax -) 10 mg PO BID [facility] Last Admin: 12/04/16 22:26 Dose: Not Given Diphenhydramine HCl (Benadryl Injection -) 50 mg IVPB BID PRN PRN Reason: FOR ITCHING Last Admin: 11/19/16 22:43 Dose: 50 mg Gabapentin (Neurontin -) 100 mg PO DAILY [facility] Last Admin: 12/04/16 09:20 Dose: 100 mg IV Flush (Picc Line Flush) 8 ml IVPUSH PRN PRN PRN Reason: Protocol Last Admin: 11/23/16 11:00 Dose: 8 ml IV Flush (Triple Lumen Flush) 4 ml IVPUSH PRN PRN PRN Reason: Protocol Last Admin: 12/03/16 10:47 Dose: 4 ml Lactulose (Cephulac (Oral Use)) 15 gm PO TID PRN PRN Reason: CONSTIPATION Mineral Oil (Mineral Oil -) 30 ml PO BID PRN PRN Reason: CONSTIPATION Last Admin: 12/04/16 22:27 Dose: 30 ml Pantoprazole Sodium (Protonix -) 40 mg PO BID [facility] Last Admin: 12/04/16 22:26 Dose: 40 mg Polyethylene Glycol (Miralax (For Daily Use) -) 17 gm PO BID [facility] Last Admin: 12/04/16 22:26 Dose: Not Given Simethicone (Mylicon -) 80 mg PO QID PRN Last Admin: 12/04/16 22:26 Dose: 80 mg - Objective Vital Signs: Vital Signs Temperature 98.2 F 12/05/16 08:46 Pulse Rate 85 12/05/16 08:46 Respiratory Rate 20 12/05/16 08:46 Blood Pressure 93/64 12/05/16 08:46 O2 Sat by Pulse Oximetry (%) 97 12/04/16 21:00 Constitutional: Yes: Well Nourished, No Distress, Calm Cardiovascular: Yes: Regular Rate and Rhythm Respiratory: Yes: Regular Edema: Yes (left hip) Peripheral Pulses WNL: Yes Wound/Incision: Yes: Dressing Dry and Intact Neurological: Yes: Alert, Oriented Psychiatric: Yes: Alert, Oriented Labs: CBC, BMP 12/05/16 06:00 12/05/16 06:00 Problem List - Problems (1) Chronic indwelling Pelaez catheter Assessment/Plan: -Pelaez changed by Urology 2 days ago with purulent urine -UC: Microbiology 11/30/16 14:30 Urine Culture - Final Urine - Urine - Catheterized Pseudomonas Aeruginosa 11/29/16 19:25 Blood Culture - Preliminary Blood - Peripheral Venous NO GROWTH OBTAINED AFTER 72 HOURS, INCUBATION TO CONTINUE FOR 2 DAYS. 11/29/16 17:12 Blood Culture - Preliminary Blood - Central Line NO GROWTH OBTAINED AFTER 72 HOURS, INCUBATION TO CONTINUE FOR 2 DAYS. Code(s): Z92.89 - PERSONAL HISTORY OF OTHER MEDICAL TREATMENT (2) Infection with multi-drug resistant microorganisms Assessment/Plan: ID on board IV abx WBC increased repeat labs in AM afebrile VSS Code(s): Z16.35 - RESISTANCE TO MULTIPLE ANTIMICROBIAL DRUGS (3) Neurogenic bladder Assessment/Plan: Chronic Pelaez catheter Code(s): N31.9 - NEUROMUSCULAR DYSFUNCTION OF BLADDER, UNSPECIFIED (4) Paraplegia following spinal cord injury Code(s): G82.20 - PARAPLEGIA, UNSPECIFIED (5) UTI (urinary tract infection) with pyuria Assessment/Plan: -iv abx -ID on board -repeat labs in AM -UC positive for Pseudomonas Code(s): N39.0 - URINARY TRACT INFECTION, SITE NOT SPECIFIED (6) Back pain Assessment/Plan: -gabapentin for pain Code(s): M54.9 - DORSALGIA, UNSPECIFIED Qualifiers: Back pain location: thoracic back pain Back pain laterality: bilateral (7) Constipation Assessment/Plan: -GI on board -refusing laxatives, mineral oil enema -Awaiting GI to evaluate the patient again Code(s): K59.00 - CONSTIPATION, UNSPECIFIED Qualifiers: Constipation type: unspecified constipation type Qualified Code(s): K59.00 - Constipation, unspecified (8) Anemia Assessment/Plan: -received Iron sucrose -Hematology on board -H/H stable Code(s): D64.9 - ANEMIA, UNSPECIFIED Qualifiers: Anemia type: iron deficiency Other causes of anemia: due to other specified chronic disease (9) Bilateral nephrolithiasis Assessment/Plan: -BL Ureteral stents placed this admission for BL hydronephrosis -needs percuatneous lithotripsy at a tertiary center, is refusing it Code(s): N20.0 - CALCULUS OF KIDNEY (10) Effusion of hip Assessment/Plan: left hip Xray insignificant MRI left hip r/o osteo Code(s): M25.459 - EFFUSION, UNSPECIFIED HIP Qualifiers: Laterality: left Qualified Code(s): M25.452 - Effusion, left hip Assessment/Plan see problem list
[2016-12-05] MEDS ORDERED: PT OWN MED DRAWER 7, Y5N ONE (10:35)
[2016-12-05] MEDS: GABAPENTIN 100 MG CAPSULE (FP) PO SCH (10:38)
[2016-12-05] MEDS: BISACODYL 5 MG TABLET.DR (FP) PO SCH ×2 (10:38→22:56)
[2016-12-05] MEDS: PANTOPRAZOLE 40 MG TABLET (FP) PO SCH ×2 (10:38→22:56)
[2016-12-05] MEDS: POLYETHYLENE GLYCOL 3350 119 GM BTL PO SCH ×2 (10:38→22:57)
[2016-12-05] MEDS: MINERAL OIL 30 ML UNIT-DOSE CUP PO PRN ×2 (10:39→23:56)
--- NOTE | 2016-12-05 15:01 | PN ---
Progress Note, Physician History of Present Illness: Continued low grade fever WBC trending upward No focal complaint + formed stool - Current Medication List Current Medications: Active Medications Acetaminophen (Tylenol -) 1,000 mg PO Q6H PRN PRN Reason: FEVER OR PAIN Last Admin: 12/02/16 18:13 Dose: 1,000 mg Bisacodyl (Dulcolax -) 10 mg PO BID [facility] Last Admin: 12/05/16 10:38 Dose: 10 mg Diphenhydramine HCl (Benadryl Injection -) 50 mg IVPB BID PRN PRN Reason: FOR ITCHING Last Admin: 11/19/16 22:43 Dose: 50 mg Gabapentin (Neurontin -) 100 mg PO DAILY [facility] Last Admin: 12/05/16 10:38 Dose: 100 mg IV Flush (Picc Line Flush) 8 ml IVPUSH PRN PRN PRN Reason: Protocol Last Admin: 11/23/16 11:00 Dose: 8 ml IV Flush (Triple Lumen Flush) 4 ml IVPUSH PRN PRN PRN Reason: Protocol Last Admin: 12/03/16 10:47 Dose: 4 ml Lactulose (Cephulac (Oral Use)) 15 gm PO TID PRN PRN Reason: CONSTIPATION Mineral Oil (Mineral Oil -) 30 ml PO BID PRN PRN Reason: CONSTIPATION Last Admin: 12/05/16 10:39 Dose: 30 ml Pantoprazole Sodium (Protonix -) 40 mg PO BID [facility] Last Admin: 12/05/16 10:38 Dose: 40 mg Polyethylene Glycol (Miralax (For Daily Use) -) 17 gm PO BID [facility] Last Admin: 12/05/16 10:38 Dose: Not Given Simethicone (Mylicon -) 80 mg PO QID PRN Last Admin: 12/04/16 22:26 Dose: 80 mg - Objective Vital Signs: Vital Signs Temperature 99.0 F 12/05/16 14:39 Pulse Rate 80 12/05/16 14:39 Respiratory Rate 18 12/05/16 14:39 Blood Pressure 103/65 12/05/16 14:39 O2 Sat by Pulse Oximetry (%) 96 12/05/16 09:00 Constitutional: Yes: No Distress, Cachectic Cardiovascular: Yes: Regular Rate and Rhythm, S1, S2 Respiratory: Yes: CTA Bilaterally Gastrointestinal: Yes: Normal Bowel Sounds, Soft, Other (distended). No: Tenderness Extremities: Yes: Other (+ ST swelling L hip no erythema/ warmth) Labs: CBC, BMP 12/05/16 06:00 12/05/16 06:00 Assessment/Plan Obstructive uropathy s/p stents Hx MDR urinary tract pathogens Low grade temp/ leukocytosis Paraplegia Sacral decubitus Will reculture blood Start zosyn
--- NOTE | 2016-12-05 15:14 | PN ---
Progress Note (short form) - Note Progress Note: Patient seen regarding recent onset soft tissue mass over the Left iliac , Inguinal area. Patient has Traumatic Paraplegia/neuropathy. Awake alert , answering questions coherently, looks very cachetic,loss of weight over the last several months, general condition is deteriorating. Low grade fever but on the rise, there is an increase in WBC Examination: Left Hip : Diffuse bulge with erythema above the iliac crest, warm to touch,no pain because of neuropathy . Examination of multiple sites with open wounds including : 1. Left hip wound over the femoral triangle, which extends to Iliac bone but has been clean for several years, this also evaluated: Wound is clean dry, no discharge, no odor, covered with dry gauze 2. 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 : Clean , no discharge or minimal, not warm, no odor Microbiology 11/30/16 14:30 Urine - Catheterized Urine Culture - Final Pseudomonas Aeruginosa 11/17/16 12:00 Decubiti Gram Stain - Final 11/17/16 12:00 Decubiti Wound Culture - Final S Aureus Vr Ec Faecalis Acinetobacter Baumannii/Haemol Klebsiella Pneumoniae - Esbl Selected Entries 12/05/16 14:39 Temperature 99.0 F Respiratory 18 Rate Blood Pressure 103/65 Laboratory Tests 11/29/16 12/05/16 17:12 06:00 WBC 10.2 H 15.2 H Hgb 8.7 L 8.2 L Hct 27.1 L 26.1 L RDW 23.9 H 24.3 H Xray/report reviewed : [address] Mckeon regarding etiology of this soft mass, my impression that is a collection of fluid possible source could be kidney. Needs confirmation with either a needle aspiration if possible Intervention Radiology 2. MRI or CT scan Re-consult if needed Thanks Dr Verdugo
[2016-12-05] MEDS ORDERED: DEXTROSE 5%-WATER - 50 ML IVPB ONE (16:14)
[2016-12-05] MEDS ORDERED: PIPERACILLIN/TAZOBACTAM 3.375 GM VIAL IVPB ONE (16:14)
[2016-12-05] MEDS: PIPERACILLIN/TAZOB 3.375 GM 3.375 GM in DEXTROSE 5%-WATER - 50 ML IVPB SCH ×2 (16:22→18:07)
[2016-12-06] MEDS ORDERED: PIPERACILLIN/TAZOBACTAM 3.375 GM VIAL IVPB ONE ×3 (01:37→18:50)
[2016-12-06] MEDS ORDERED: DEXTROSE 5%-WATER - 50 ML IVPB ONE ×3 (01:37→18:51)
[2016-12-06] MEDS: PIPERACILLIN/TAZOB 3.375 GM 3.375 GM in DEXTROSE 5%-WATER - 50 ML IVPB SCH ×3 (01:44→18:54)
[2016-12-06] MEDS: PICC LINE 8 ML FLUSH PROTOCOL IVPUSH PRN (10:26)
[2016-12-06] MEDS: GABAPENTIN 100 MG CAPSULE (FP) PO SCH (11:00)
[2016-12-06] MEDS: PANTOPRAZOLE 40 MG TABLET (FP) PO SCH ×2 (11:00→22:34)
[2016-12-06] MEDS: TRIPLE LUMEN FLUSH 4 ML ML IVPUSH PRN (11:30)
--- NOTE | 2016-12-06 11:43 | PN ---
Progress Note, Physician - Current Medication List Current Medications: Active Medications Acetaminophen (Tylenol -) 1,000 mg PO Q6H PRN PRN Reason: FEVER OR PAIN Last Admin: 12/02/16 18:13 Dose: 1,000 mg Bisacodyl (Dulcolax -) 10 mg PO BID [facility] Last Admin: 12/05/16 22:56 Dose: Not Given Diphenhydramine HCl (Benadryl Injection -) 50 mg IVPB BID PRN PRN Reason: FOR ITCHING Last Admin: 11/19/16 22:43 Dose: 50 mg Gabapentin (Neurontin -) 100 mg PO DAILY [facility] Last Admin: 12/05/16 10:38 Dose: 100 mg IV Flush (Picc Line Flush) 8 ml IVPUSH PRN PRN PRN Reason: Protocol Last Admin: 11/23/16 11:00 Dose: 8 ml IV Flush (Triple Lumen Flush) 4 ml IVPUSH PRN PRN PRN Reason: Protocol Last Admin: 12/03/16 10:47 Dose: 4 ml Piperacillin Sod/Tazobactam (Sod 3.375 gm/ Dextrose) 50 mls @ 100 mls/hr IVPB Q8H-IV [facility] PRN Reason: Protocol Last Admin: 12/06/16 01:44 Dose: 100 mls/hr Lactulose (Cephulac (Oral Use)) 15 gm PO TID PRN PRN Reason: CONSTIPATION Mineral Oil (Mineral Oil -) 30 ml PO BID PRN PRN Reason: CONSTIPATION Last Admin: 12/05/16 23:56 Dose: 30 ml Pantoprazole Sodium (Protonix -) 40 mg PO BID [facility] Last Admin: 12/05/16 22:56 Dose: 40 mg Polyethylene Glycol (Miralax (For Daily Use) -) 17 gm PO BID [facility] Last Admin: 12/05/16 22:57 Dose: Not Given Simethicone (Mylicon -) 80 mg PO QID PRN Last Admin: 12/04/16 22:26 Dose: 80 mg - Objective Vital Signs: Vital Signs Temperature 98.8 F 12/05/16 22:00 Pulse Rate 88 12/05/16 22:00 Respiratory Rate 18 12/05/16 22:00 Blood Pressure 112/60 12/05/16 22:00 O2 Sat by Pulse Oximetry (%) 97 12/05/16 21:00 Cardiovascular: Yes: Regular Rate and Rhythm Respiratory: Yes: Regular, CTA Bilaterally Gastrointestinal: Yes: Normal Bowel Sounds, Soft Labs: CBC, BMP 12/05/16 06:00 12/05/16 06:00 Assessment/Plan - Problems (1) Chronic indwelling Pelaez catheter Assessment/Plan: -Pelaez changed by Urology 2 days ago with purulent urine -UC: Microbiology 11/30/16 14:30 Urine Culture - Final Urine - Urine - Catheterized Pseudomonas Aeruginosa 11/29/16 19:25 Blood Culture - Preliminary Blood - Peripheral Venous NO GROWTH OBTAINED AFTER 72 HOURS, INCUBATION TO CONTINUE FOR 2 DAYS. 11/29/16 17:12 Blood Culture - Preliminary Blood - Central Line NO GROWTH OBTAINED AFTER 72 HOURS, INCUBATION TO CONTINUE FOR 2 DAYS. Code(s): Z92.89 - PERSONAL HISTORY OF OTHER MEDICAL TREATMENT (2) Infection with multi-drug resistant microorganisms Assessment/Plan: ID on board IV abx WBC increased repeat labs in AM afebrile VSS Code(s): Z16.35 - RESISTANCE TO MULTIPLE ANTIMICROBIAL DRUGS (3) Neurogenic bladder Assessment/Plan: Chronic Pelaez catheter Code(s): N31.9 - NEUROMUSCULAR DYSFUNCTION OF BLADDER, UNSPECIFIED (4) Paraplegia following spinal cord injury Code(s): G82.20 - PARAPLEGIA, UNSPECIFIED (5) UTI (urinary tract infection) with pyuria Assessment/Plan: -iv abx -ID on board -repeat labs in AM -UC positive for Pseudomonas Code(s): N39.0 - URINARY TRACT INFECTION, SITE NOT SPECIFIED (6) Back pain Assessment/Plan: -gabapentin for pain Code(s): M54.9 - DORSALGIA, UNSPECIFIED Qualifiers: Back pain location: thoracic back pain Back pain laterality: bilateral (7) Constipation Assessment/Plan: -GI on board -refusing laxatives, mineral oil enema -Awaiting GI to evaluate the patient again Code(s): K59.00 - CONSTIPATION, UNSPECIFIED Qualifiers: Constipation type: unspecified constipation type Qualified Code(s): K59.00 - Constipation, unspecified (8) Anemia Assessment/Plan: -received Iron sucrose -Hematology on board -H/H stable Code(s): D64.9 - ANEMIA, UNSPECIFIED Qualifiers: Anemia type: iron deficiency Other causes of anemia: due to other specified chronic disease (9) Bilateral nephrolithiasis Assessment/Plan: -BL Ureteral stents placed this admission for BL hydronephrosis -needs percuatneous lithotripsy at a tertiary center, is refusing it Code(s): N20.0 - CALCULUS OF KIDNEY (10) Effusion of hip Assessment/Plan: left hip Xray insignificant MRI left hip r/o osteo Code(s): M25.459 - EFFUSION, UNSPECIFIED HIP Qualifiers: Laterality: left Qualified Code(s): M25.452 - Effusion, left hip
[2016-12-06] MEDS: BISACODYL 5 MG TABLET.DR (FP) PO SCH ×2 (11:59→22:34)
[2016-12-06] MEDS: POLYETHYLENE GLYCOL 3350 119 GM BTL PO SCH ×2 (11:59→22:34)
--- NOTE | 2016-12-06 12:33 | PN ---
Progress Note, Physician History of Present Illness: Awake, alert No complaints Afebrile Repeat BC pending - Current Medication List Current Medications: Active Medications Acetaminophen (Tylenol -) 1,000 mg PO Q6H PRN PRN Reason: FEVER OR PAIN Last Admin: 12/02/16 18:13 Dose: 1,000 mg Bisacodyl (Dulcolax -) 10 mg PO BID [facility] Last Admin: 12/06/16 11:59 Dose: Not Given Diphenhydramine HCl (Benadryl Injection -) 50 mg IVPB BID PRN PRN Reason: FOR ITCHING Last Admin: 11/19/16 22:43 Dose: 50 mg Gabapentin (Neurontin -) 100 mg PO DAILY [facility] Last Admin: 12/06/16 11:00 Dose: 100 mg IV Flush (Picc Line Flush) 8 ml IVPUSH PRN PRN PRN Reason: Protocol Last Admin: 11/23/16 11:00 Dose: 8 ml IV Flush (Triple Lumen Flush) 4 ml IVPUSH PRN PRN PRN Reason: Protocol Last Admin: 12/03/16 10:47 Dose: 4 ml Piperacillin Sod/Tazobactam (Sod 3.375 gm/ Dextrose) 50 mls @ 100 mls/hr IVPB Q8H-IV [facility] PRN Reason: Protocol Last Admin: 12/06/16 11:00 Dose: 100 mls/hr Lactulose (Cephulac (Oral Use)) 15 gm PO TID PRN PRN Reason: CONSTIPATION Mineral Oil (Mineral Oil -) 30 ml PO BID PRN PRN Reason: CONSTIPATION Last Admin: 12/05/16 23:56 Dose: 30 ml Pantoprazole Sodium (Protonix -) 40 mg PO BID [facility] Last Admin: 12/06/16 11:00 Dose: 40 mg Polyethylene Glycol (Miralax (For Daily Use) -) 17 gm PO BID [facility] Last Admin: 12/06/16 11:59 Dose: Not Given Simethicone (Mylicon -) 80 mg PO QID PRN Last Admin: 12/04/16 22:26 Dose: 80 mg - Objective Vital Signs: Vital Signs Temperature 98.8 F 12/05/16 22:00 Pulse Rate 88 12/05/16 22:00 Respiratory Rate 18 12/05/16 22:00 Blood Pressure 112/60 12/05/16 22:00 O2 Sat by Pulse Oximetry (%) 97 12/05/16 21:00 Constitutional: Yes: No Distress, Cachectic Eyes: Yes: Conjunctiva Clear Cardiovascular: Yes: Regular Rate and Rhythm, S1, S2 Respiratory: Yes: CTA Bilaterally Gastrointestinal: Yes: Normal Bowel Sounds, Soft, Other (distended). No: Tenderness Edema: No Labs: CBC, BMP 12/05/16 06:00 12/05/16 06:00 Assessment/Plan Obstructive uropathy s/p stents Hx MDR urinary tract pathogens Low grade temp/ leukocytosis Paraplegia Sacral decubitus Await repeat BC For MRI L hip Continue zosyn
[2016-12-06] MEDS: MINERAL OIL 30 ML UNIT-DOSE CUP PO PRN (22:34)
[2016-12-07] MEDS ORDERED: DEXTROSE 5%-WATER - 50 ML IVPB ONE ×2 (00:55→09:16)
[2016-12-07] MEDS ORDERED: PIPERACILLIN/TAZOBACTAM 3.375 GM VIAL IVPB ONE ×2 (00:55→09:16)
[2016-12-07] MEDS: PIPERACILLIN/TAZOB 3.375 GM 3.375 GM in DEXTROSE 5%-WATER - 50 ML IVPB SCH ×3 (01:07→17:03)
[2016-12-07 07:36] LABS: BASOPHIL 0.4 % (0-2.0); EOSINOPHIL 2.6 % (0-4.5); MCH 23.7 pg (25.7-33.7); MCHC 31.5 g/dl (32.0-35.9); MEAN CELL VOLUME 75.3 fl (80-96); MEAN PLT VOLUME 7.2 fl (7.5-11.1); NEUTROPHILS 81.2 % (42.8-82.8); PLATELET COUNT 312 K/MM3 (134-434); RDW 23.8 % (11.9-15.9); WHITE BLOOD COUNT 12.2 K/mm3 (4.0-10.0)
[2016-12-07 08:10] LABS: ALBUMIN 1.5 g/dl (3.4-5.0); ALK PHOS 133 U/L (45-117); ANION GAP 8 (8-16); BILIRUBIN,TOTAL 0.3 mg/dL (0.2-1.0); CALCIUM 7.9 mg/dL (8.5-10.1); CO2 27 mmol/L (21-32); CREATININE 0.7 mg/dL (0.7-1.3); GLUCOSE,RANDOM 87 mg/dL (74-106); SGOT/AST 39 U/L (15-37); SGPT/ALT 42 U/L (12-78); TOT PROT 6.8 g/dl (6.4-8.2)
[2016-12-07] MEDS: POLYETHYLENE GLYCOL 3350 119 GM BTL PO SCH ×2 (09:27→21:47)
[2016-12-07] MEDS: BISACODYL 5 MG TABLET.DR (FP) PO SCH ×2 (09:27→21:47)
[2016-12-07] MEDS: PANTOPRAZOLE 40 MG TABLET (FP) PO SCH ×2 (09:27→21:48)
[2016-12-07] MEDS: GABAPENTIN 100 MG CAPSULE (FP) PO SCH (09:27)
--- NOTE | 2016-12-07 10:16 | PN ---
Progress Note, Physician History of Present Illness: C/O CONSTIPATION--REFUSES ENEMA--now agrees NO CP - Current Medication List Current Medications: Active Medications Acetaminophen (Tylenol -) 1,000 mg PO Q6H PRN PRN Reason: FEVER OR PAIN Last Admin: 12/02/16 18:13 Dose: 1,000 mg Bisacodyl (Dulcolax -) 10 mg PO BID [facility] Last Admin: 12/07/16 09:27 Dose: Not Given Diphenhydramine HCl (Benadryl Injection -) 50 mg IVPB BID PRN PRN Reason: FOR ITCHING Last Admin: 11/19/16 22:43 Dose: 50 mg Gabapentin (Neurontin -) 100 mg PO DAILY [facility] Last Admin: 12/07/16 09:27 Dose: Not Given IV Flush (Picc Line Flush) 8 ml IVPUSH PRN PRN PRN Reason: Protocol Last Admin: 12/06/16 10:26 Dose: 8 ml IV Flush (Triple Lumen Flush) 4 ml IVPUSH PRN PRN PRN Reason: Protocol Last Admin: 12/03/16 10:47 Dose: 4 ml Piperacillin Sod/Tazobactam (Sod 3.375 gm/ Dextrose) 50 mls @ 100 mls/hr IVPB Q8H-IV [facility] PRN Reason: Protocol Last Admin: 12/07/16 09:26 Dose: 100 mls/hr Lactulose (Cephulac (Oral Use)) 15 gm PO TID PRN PRN Reason: CONSTIPATION Mineral Oil (Mineral Oil -) 30 ml PO BID PRN PRN Reason: CONSTIPATION Last Admin: 12/06/16 22:34 Dose: 30 ml Pantoprazole Sodium (Protonix -) 40 mg PO BID [facility] Last Admin: 12/07/16 09:27 Dose: Not Given Polyethylene Glycol (Miralax (For Daily Use) -) 17 gm PO BID [facility] Last Admin: 12/07/16 09:27 Dose: Not Given Simethicone (Mylicon -) 80 mg PO QID PRN Last Admin: 12/04/16 22:26 Dose: 80 mg - Objective Vital Signs: Vital Signs Temperature 98.8 F 12/07/16 06:00 Pulse Rate 80 12/07/16 06:00 Respiratory Rate 20 12/07/16 06:00 Blood Pressure 138/74 12/07/16 06:00 O2 Sat by Pulse Oximetry (%) 97 12/06/16 09:00 Cardiovascular: Yes: Regular Rate and Rhythm Respiratory: Yes: Regular, CTA Bilaterally Gastrointestinal: Yes: Normal Bowel Sounds, Soft Extremities: Yes: Erythema ( LEFT HIP) Labs: CBC, BMP 12/07/16 06:20 12/07/16 06:20 Assessment/Plan - Problems (1) Chronic indwelling Pelaez catheter Assessment/Plan: -Pelaez changed by Urology 2 days ago with purulent urine -UC: Microbiology 11/30/16 14:30 Urine Culture - Final Urine - Urine - Catheterized Pseudomonas Aeruginosa 11/29/16 19:25 Blood Culture - Preliminary Blood - Peripheral Venous NO GROWTH OBTAINED AFTER 72 HOURS, INCUBATION TO CONTINUE FOR 2 DAYS. 11/29/16 17:12 Blood Culture - Preliminary Blood - Central Line NO GROWTH OBTAINED AFTER 72 HOURS, INCUBATION TO CONTINUE FOR 2 DAYS. Code(s): Z92.89 - PERSONAL HISTORY OF OTHER MEDICAL TREATMENT (2) Infection with multi-drug resistant microorganisms Assessment/Plan: ID on board IV abx WBC increased repeat labs in AM afebrile VSS Code(s): Z16.35 - RESISTANCE TO MULTIPLE ANTIMICROBIAL DRUGS (3) Neurogenic bladder Assessment/Plan: Chronic Pelaez catheter Code(s): N31.9 - NEUROMUSCULAR DYSFUNCTION OF BLADDER, UNSPECIFIED (4) Paraplegia following spinal cord injury Code(s): G82.20 - PARAPLEGIA, UNSPECIFIED (5) UTI (urinary tract infection) with pyuria Assessment/Plan: -iv abx -ID on board -repeat labs in AM -UC positive for Pseudomonas Code(s): N39.0 - URINARY TRACT INFECTION, SITE NOT SPECIFIED (6) Back pain Assessment/Plan: -gabapentin for pain Code(s): M54.9 - DORSALGIA, UNSPECIFIED Qualifiers: Back pain location: thoracic back pain Back pain laterality: bilateral (7) Constipation Assessment/Plan: -GI on board -refusing laxatives, mineral oil enema -Awaiting GI to evaluate the patient again Code(s): K59.00 - CONSTIPATION, UNSPECIFIED Qualifiers: Constipation type: unspecified constipation type Qualified Code(s): K59.00 - Constipation, unspecified (8) Anemia Assessment/Plan: -received Iron sucrose -Hematology on board -H/H stable Code(s): D64.9 - ANEMIA, UNSPECIFIED Qualifiers: Anemia type: iron deficiency Other causes of anemia: due to other specified chronic disease (9) Bilateral nephrolithiasis Assessment/Plan: -BL Ureteral stents placed this admission for BL hydronephrosis -needs percuatneous lithotripsy at a tertiary center, is refusing it Code(s): N20.0 - CALCULUS OF KIDNEY (10) Effusion of hip Assessment/Plan: left hip Xray insignificant MRI left hip r/o osteo Code(s): M25.459 - EFFUSION, UNSPECIFIED HIP Qualifiers: Laterality: left Qualified Code(s): M25.452 - Effusion, left hip
[2016-12-07] MEDS: TRIPLE LUMEN FLUSH 4 ML ML IVPUSH PRN (10:22)
[2016-12-07 10:37] LABS: ANISOCYTOSIS 3+; MACROCYTOSIS 2+; MICROCYTOSIS 1+
[2016-12-07] MEDS ORDERED: IRON SUCROSE INJECTION 100 MG in SODIUM CHLORIDE 95 ML IVPB ONE ×2 (11:21→13:30)
--- NOTE | 2016-12-07 12:55 | PN ---
Progress Note, Physician History of Present Illness: No focal complaint Afebrile WBC improved MRI done, not yet read Repeat BC no growth - Current Medication List Current Medications: Active Medications Acetaminophen (Tylenol -) 1,000 mg PO Q6H PRN PRN Reason: FEVER OR PAIN Last Admin: 12/02/16 18:13 Dose: 1,000 mg Bisacodyl (Dulcolax -) 10 mg PO BID [facility] Last Admin: 12/07/16 09:27 Dose: Not Given Diphenhydramine HCl (Benadryl Injection -) 50 mg IVPB BID PRN PRN Reason: FOR ITCHING Last Admin: 11/19/16 22:43 Dose: 50 mg Gabapentin (Neurontin -) 100 mg PO DAILY [facility] Last Admin: 12/07/16 09:27 Dose: Not Given IV Flush (Picc Line Flush) 8 ml IVPUSH PRN PRN PRN Reason: Protocol Last Admin: 11/23/16 11:00 Dose: 8 ml IV Flush (Triple Lumen Flush) 4 ml IVPUSH PRN PRN PRN Reason: Protocol Last Admin: 12/07/16 10:22 Dose: 4 ml Piperacillin Sod/Tazobactam (Sod 3.375 gm/ Dextrose) 50 mls @ 100 mls/hr IVPB Q8H-IV [facility] PRN Reason: Protocol Last Admin: 12/07/16 09:26 Dose: 100 mls/hr Lactulose (Cephulac (Oral Use)) 15 gm PO TID PRN PRN Reason: CONSTIPATION Mineral Oil (Mineral Oil -) 30 ml PO BID PRN PRN Reason: CONSTIPATION Last Admin: 12/06/16 22:34 Dose: 30 ml Pantoprazole Sodium (Protonix -) 40 mg PO BID [facility] Last Admin: 12/07/16 09:27 Dose: Not Given Polyethylene Glycol (Miralax (For Daily Use) -) 17 gm PO BID [facility] Last Admin: 12/07/16 09:27 Dose: Not Given Simethicone (Mylicon -) 80 mg PO QID PRN Last Admin: 12/04/16 22:26 Dose: 80 mg - Objective Vital Signs: Vital Signs Temperature 98.8 F 12/07/16 06:00 Pulse Rate 80 12/07/16 06:00 Respiratory Rate 20 12/07/16 06:00 Blood Pressure 138/74 09/24/17 06:00 O2 Sat by Pulse Oximetry (%) 97 12/06/16 09:00 Constitutional: Yes: No Distress, Cachectic Cardiovascular: Yes: Regular Rate and Rhythm, S1, S2 Respiratory: Yes: CTA Bilaterally Gastrointestinal: Yes: Normal Bowel Sounds, Soft. No: Tenderness Extremities: Yes: Other (+ soft tissue swelling L hip) Integumentary: Yes: Other (+ sacral decubitus ulcers) Labs: CBC, BMP 12/07/16 06:20 12/07/16 06:20 Assessment/Plan Obstructive uropathy s/p stents Hx MDR urinary tract pathogens Low grade temp/ leukocytosis Paraplegia Sacral decubitus Check blood c/s, MRI result Continue pilarn
[2016-12-07] MEDS: MINERAL OIL 30 ML UNIT-DOSE CUP PO PRN (21:46)
[2016-12-08] MEDS ORDERED: PIPERACILLIN/TAZOBACTAM 3.375 GM VIAL IVPB ONE ×3 (00:31→17:10)
[2016-12-08] MEDS ORDERED: DEXTROSE 5%-WATER - 50 ML IVPB ONE ×3 (00:31→17:10)
[2016-12-08] MEDS: PIPERACILLIN/TAZOB 3.375 GM 3.375 GM in DEXTROSE 5%-WATER - 50 ML IVPB SCH ×3 (01:09→18:35)
[2016-12-08 07:28] LABS: BASOPHIL 0.4 % (0-2.0); EOSINOPHIL 2.4 % (0-4.5); MCH 23.6 pg (25.7-33.7); MCHC 31.3 g/dl (32.0-35.9); MEAN CELL VOLUME 75.4 fl (80-96); MEAN PLT VOLUME 7.2 fl (7.5-11.1); PLATELET COUNT 312 K/MM3 (134-434); WHITE BLOOD COUNT 13.6 K/mm3 (4.0-10.0)
[2016-12-08 07:55] LABS: ALBUMIN 1.5 g/dl (3.4-5.0); ANION GAP 11 (8-16); BILIRUBIN,TOTAL 0.2 mg/dL (0.2-1.0); CALCIUM 7.7 mg/dL (8.5-10.1); CO2 27 mmol/L (21-32); CREATININE 0.7 mg/dL (0.7-1.3); GLUCOSE,RANDOM 81 mg/dL (74-106); SGOT/AST 27 U/L (15-37); SGPT/ALT 36 U/L (12-78)
[2016-12-08 07:56] LABS: ALK PHOS 153 U/L (45-117); TOT PROT 6.8 g/dl (6.4-8.2)
[2016-12-08] MEDS ORDERED: PT OWN MED DRAWER 7, Y5N ONE ×2 (09:36→12:21)
[2016-12-08] MEDS: BISACODYL 5 MG TABLET.DR (FP) PO SCH ×2 (09:50→21:10)
[2016-12-08] MEDS: GABAPENTIN 100 MG CAPSULE (FP) PO SCH (09:50)
[2016-12-08] MEDS: PANTOPRAZOLE 40 MG TABLET (FP) PO SCH ×2 (09:50→21:10)
[2016-12-08] MEDS: POLYETHYLENE GLYCOL 3350 119 GM BTL PO SCH ×2 (09:50→21:10)
--- NOTE | 2016-12-08 10:06 | PN ---
Progress Note, Physician Chief Complaint: Nephrolithiasis, decubitus ulcer, constipation History of Present Illness: NAD alert and oriented has constipation with intermittent diarrhea secondary to autonomic dysreflexia. Refuses laxatives, only wants mineral enemas, received 1 yesterday Had BM today, No nausea/vomiting today abdomen less distended seen by ID, IV abx WBC improved UC growing Pseudomonas Left hip xray insignificant MRI inconclusive of osteomyelitis, shows large fluid collection in left hemipelvis Resistant to making a decision about either going home or to tertiary care center for percutaneous lithotripsy - Current Medication List Current Medications: Active Medications Acetaminophen (Tylenol -) 1,000 mg PO Q6H PRN PRN Reason: FEVER OR PAIN Last Admin: 12/02/16 18:13 Dose: 1,000 mg Bisacodyl (Dulcolax -) 10 mg PO BID [facility] Last Admin: 12/08/16 09:50 Dose: Not Given Diphenhydramine HCl (Benadryl Injection -) 50 mg IVPB BID PRN PRN Reason: FOR ITCHING Last Admin: 11/19/16 22:43 Dose: 50 mg Gabapentin (Neurontin -) 100 mg PO DAILY [facility] Last Admin: 12/08/16 09:50 Dose: Not Given IV Flush (Picc Line Flush) 8 ml IVPUSH PRN PRN PRN Reason: Protocol Last Admin: 11/23/16 11:00 Dose: 8 ml IV Flush (Triple Lumen Flush) 4 ml IVPUSH PRN PRN PRN Reason: Protocol Last Admin: 12/07/16 10:22 Dose: 4 ml Piperacillin Sod/Tazobactam (Sod 3.375 gm/ Dextrose) 50 mls @ 100 mls/hr IVPB Q8H-IV [facility] PRN Reason: Protocol Last Admin: 12/08/16 01:09 Dose: 100 mls/hr Lactulose (Cephulac (Oral Use)) 15 gm PO TID PRN PRN Reason: CONSTIPATION Mineral Oil (Mineral Oil -) 30 ml PO BID PRN PRN Reason: CONSTIPATION Last Admin: 12/07/16 21:46 Dose: 30 ml Pantoprazole Sodium (Protonix -) 40 mg PO BID [facility] Last Admin: 12/08/16 09:50 Dose: Not Given Polyethylene Glycol (Miralax (For Daily Use) -) 17 gm PO BID [facility] Last Admin: 12/08/16 09:50 Dose: Not Given Simethicone (Mylicon -) 80 mg PO QID PRN Last Admin: 12/04/16 22:26 Dose: 80 mg - Objective Vital Signs: Vital Signs Temperature 98.8 F 12/07/16 21:48 Pulse Rate 87 12/07/16 21:48 Respiratory Rate 20 12/07/16 21:48 Blood Pressure 103/64 12/07/16 21:48 O2 Sat by Pulse Oximetry (%) 94 L 12/07/16 21:00 Constitutional: Yes: Well Nourished, No Distress, Calm Cardiovascular: Yes: Regular Rate and Rhythm Respiratory: Yes: Regular Gastrointestinal: Yes: Ascites, Hypoactive Bowel Sounds Musculoskeletal: Yes: Other (paraplegia) Edema: Yes (left hip) Peripheral Pulses WNL: Yes Neurological: Yes: Alert, Oriented Psychiatric: Yes: Alert, Oriented Labs: CBC, BMP 12/08/16 06:00 12/08/16 06:00 Problem List - Problems (1) Chronic indwelling Pelaez catheter Assessment/Plan: -Pelaez catheter Code(s): Z92.89 - PERSONAL HISTORY OF OTHER MEDICAL TREATMENT (2) Infection with multi-drug resistant microorganisms Assessment/Plan: ID on board IV abx repeat labs in AM afebrile VSS Code(s): Z16.35 - RESISTANCE TO MULTIPLE ANTIMICROBIAL DRUGS (3) Neurogenic bladder Assessment/Plan: Chronic Pelaez catheter Code(s): N31.9 - NEUROMUSCULAR DYSFUNCTION OF BLADDER, UNSPECIFIED (4) Paraplegia following spinal cord injury Code(s): G82.20 - PARAPLEGIA, UNSPECIFIED (5) UTI (urinary tract infection) with pyuria Assessment/Plan: -iv abx -ID on board -repeat labs in AM -UC positive for Pseudomonas Code(s): N39.0 - URINARY TRACT INFECTION, SITE NOT SPECIFIED (6) Back pain Assessment/Plan: -gabapentin for pain Code(s): M54.9 - DORSALGIA, UNSPECIFIED Qualifiers: Back pain location: thoracic back pain Back pain laterality: bilateral (7) Constipation Assessment/Plan: -GI on board -refusing laxatives, mineral oil enema -Awaiting GI to evaluate the patient again Code(s): K59.00 - CONSTIPATION, UNSPECIFIED Qualifiers: Constipation type: unspecified constipation type Qualified Code(s): K59.00 - Constipation, unspecified (8) Anemia Assessment/Plan: -received Iron sucrose -Hematology on board -H/H stable Code(s): D64.9 - ANEMIA, UNSPECIFIED Qualifiers: Anemia type: iron deficiency Other causes of anemia: due to other specified chronic disease (9) Bilateral nephrolithiasis Assessment/Plan: -BL Ureteral stents placed this admission for BL hydronephrosis -needs percuatneous lithotripsy at a tertiary center, is refusing it Code(s): N20.0 - CALCULUS OF KIDNEY (10) Effusion of hip Assessment/Plan: left hip Xray insignificant MRI left hip inconclusive of osteomyelitis, effusion of left hemipelvis Code(s): M25.459 - EFFUSION, UNSPECIFIED HIP Qualifiers: Laterality: left Qualified Code(s): M25.452 - Effusion, left hip Assessment/Plan see problem list
[2016-12-08] MEDS: MINERAL OIL 30 ML UNIT-DOSE CUP PO PRN (12:28)
--- NOTE | 2016-12-08 16:31 | PN ---
Progress Note, Physician History of Present Illness: No sensation of pain No fever/ chills WBC slightly elevated Blood c/s no growth MRI shows large fluid collection L hemipelvis - Current Medication List Current Medications: Active Medications Acetaminophen (Tylenol -) 1,000 mg PO Q6H PRN PRN Reason: FEVER OR PAIN Last Admin: 12/02/16 18:13 Dose: 1,000 mg Bisacodyl (Dulcolax -) 10 mg PO BID [facility] Last Admin: 12/08/16 09:50 Dose: Not Given Diphenhydramine HCl (Benadryl Injection -) 50 mg IVPB BID PRN PRN Reason: FOR ITCHING Last Admin: 11/19/16 22:43 Dose: 50 mg Gabapentin (Neurontin -) 100 mg PO DAILY [facility] Last Admin: 12/08/16 09:50 Dose: Not Given IV Flush (Picc Line Flush) 8 ml IVPUSH PRN PRN PRN Reason: Protocol Last Admin: 11/23/16 11:00 Dose: 8 ml IV Flush (Triple Lumen Flush) 4 ml IVPUSH PRN PRN PRN Reason: Protocol Last Admin: 12/07/16 10:22 Dose: 4 ml Piperacillin Sod/Tazobactam (Sod 3.375 gm/ Dextrose) 50 mls @ 100 mls/hr IVPB Q8H-IV [facility] PRN Reason: Protocol Last Admin: 12/08/16 10:01 Dose: 100 mls/hr Lactulose (Cephulac (Oral Use)) 15 gm PO TID PRN PRN Reason: CONSTIPATION Mineral Oil (Mineral Oil -) 30 ml PO BID PRN PRN Reason: CONSTIPATION Last Admin: 12/08/16 12:28 Dose: 30 ml Pantoprazole Sodium (Protonix -) 40 mg PO BID [facility] Last Admin: 12/08/16 09:50 Dose: Not Given Polyethylene Glycol (Miralax (For Daily Use) -) 17 gm PO BID [facility] Last Admin: 12/08/16 09:50 Dose: Not Given Simethicone (Mylicon -) 80 mg PO QID PRN Last Admin: 12/04/16 22:26 Dose: 80 mg - Objective Vital Signs: Vital Signs Temperature 97.9 F 12/08/16 15:07 Pulse Rate 76 12/08/16 15:07 Respiratory Rate 18 12/08/16 15:07 Blood Pressure 115/60 12/08/16 15:07 O2 Sat by Pulse Oximetry (%) 94 L 12/07/16 21:00 Constitutional: Yes: No Distress, Cachectic Cardiovascular: Yes: Regular Rate and Rhythm, S1, S2 Respiratory: Yes: CTA Bilaterally Gastrointestinal: Yes: Normal Bowel Sounds, Soft, Other (distended, tympanitic) . No: Tenderness Labs: CBC, BMP 12/08/16 06:00 12/08/16 06:00 Assessment/Plan Obstructive uropathy s/p stents Hx MDR urinary tract pathogens Low grade temp/ leukocytosis Paraplegia Sacral decubitus Large fluid collection L hemipelvis ? etiology Continue zosyn Will review MRI with radiologist
[2016-12-09] MEDS ORDERED: PIPERACILLIN/TAZOBACTAM 3.375 GM VIAL IVPB ONE ×3 (01:17→17:18)
[2016-12-09] MEDS: PIPERACILLIN/TAZOB 3.375 GM 3.375 GM in DEXTROSE 5%-WATER - 50 ML IVPB SCH ×3 (01:23→17:19)
[2016-12-09 06:07] LABS: SERUM IRON 16 ug/dL (38-169); TOTAL IRON BINDING CAPACITY 183 ug/dL (250-450); UIBC 167 ug/dL (111-343)
[2016-12-09 07:58] LABS: BASOPHIL 0.4 % (0-2.0); EOSINOPHIL 2.1 % (0-4.5); MCH 23.7 pg (25.7-33.7); MCHC 31.6 g/dl (32.0-35.9); MEAN CELL VOLUME 75.2 fl (80-96); NEUTROPHILS 83.6 % (42.8-82.8); PLATELET COUNT 353 K/MM3 (134-434); RDW 23.9 % (11.9-15.9); WHITE BLOOD COUNT 15.9 K/mm3 (4.0-10.0)
[2016-12-09 08:24] LABS: ALBUMIN 1.5 g/dl (3.4-5.0); ANION GAP 7 (8-16); CALCIUM 8.2 mg/dL (8.5-10.1); CO2 29 mmol/L (21-32); CREATININE 0.6 mg/dL (0.7-1.3); GLUCOSE,RANDOM 69 mg/dL (74-106); SGOT/AST 28 U/L (15-37); SGPT/ALT 33 U/L (12-78)
[2016-12-09 08:27] LABS: ALK PHOS 157 U/L (45-117); BILIRUBIN,TOTAL 0.4 mg/dL (0.2-1.0); TOT PROT 7.1 g/dl (6.4-8.2)
[2016-12-09] MEDS ORDERED: DEXTROSE 5%-WATER - 50 ML IVPB ONE ×2 (09:17→17:19)
--- NOTE | 2016-12-09 10:39 | PN ---
Progress Note, Physician Chief Complaint: Nephrolithiasis, decubitus ulcer, constipation History of Present Illness: NAD alert and oriented has constipation with intermittent diarrhea secondary to autonomic dysreflexia. Refuses laxatives, only wants mineral enemas, received 1 yesterday Had BM today, No nausea/vomiting today abdomen less distended seen by ID, IV abx WBC slightly elevated today low grade temps last evening UC growing Pseudomonas Left hip xray insignificant MRI inconclusive of osteomyelitis, shows large fluid collection in left hemipelvis Resistant to making a decision about either going home or to tertiary care center for percutaneous lithotripsy - Current Medication List Current Medications: Active Medications Acetaminophen (Tylenol -) 1,000 mg PO Q6H PRN PRN Reason: FEVER OR PAIN Last Admin: 12/02/16 18:13 Dose: 1,000 mg Bisacodyl (Dulcolax -) 10 mg PO BID [facility] Last Admin: 12/08/16 21:10 Dose: Not Given Diphenhydramine HCl (Benadryl Injection -) 50 mg IVPB BID PRN PRN Reason: FOR ITCHING Last Admin: 11/19/16 22:43 Dose: 50 mg Gabapentin (Neurontin -) 100 mg PO DAILY [facility] Last Admin: 12/08/16 09:50 Dose: Not Given IV Flush (Picc Line Flush) 8 ml IVPUSH PRN PRN PRN Reason: Protocol Last Admin: 11/23/16 11:00 Dose: 8 ml IV Flush (Triple Lumen Flush) 4 ml IVPUSH PRN PRN PRN Reason: Protocol Last Admin: 12/07/16 10:22 Dose: 4 ml Piperacillin Sod/Tazobactam (Sod 3.375 gm/ Dextrose) 50 mls @ 100 mls/hr IVPB Q8H-IV [facility] PRN Reason: Protocol Last Admin: 12/09/16 09:24 Dose: 100 mls/hr Lactulose (Cephulac (Oral Use)) 15 gm PO TID PRN PRN Reason: CONSTIPATION Mineral Oil (Mineral Oil -) 30 ml PO BID PRN PRN Reason: CONSTIPATION Last Admin: 12/08/16 12:28 Dose: 30 ml Pantoprazole Sodium (Protonix -) 40 mg PO BID [facility] Last Admin: 12/08/16 21:10 Dose: Not Given Polyethylene Glycol (Miralax (For Daily Use) -) 17 gm PO BID [facility] Last Admin: 12/08/16 21:10 Dose: Not Given Simethicone (Mylicon -) 80 mg PO QID PRN Last Admin: 12/04/16 22:26 Dose: 80 mg - Objective Vital Signs: Vital Signs Temperature 98.8 F 12/09/16 01:48 Pulse Rate 83 12/09/16 01:48 Respiratory Rate 18 12/09/16 01:48 Blood Pressure 104/56 12/09/16 01:48 O2 Sat by Pulse Oximetry (%) 96 12/08/16 21:00 Constitutional: Yes: Well Nourished, No Distress, Calm Cardiovascular: Yes: Regular Rate and Rhythm Respiratory: Yes: Regular Gastrointestinal: Yes: Hypoactive Bowel Sounds Genitourinary: Yes: Pelaez Present Musculoskeletal: Yes: WNL Extremities: Yes: WNL Edema: Yes (left hip) Wound/Incision: Yes: Dressing Dry and Intact Neurological: Yes: Alert, Oriented Psychiatric: Yes: Alert, Oriented Labs: CBC, BMP 12/09/16 07:00 12/09/16 07:00 Problem List - Problems (1) Chronic indwelling Pelaez catheter Assessment/Plan: -Pelaez catheter Code(s): Z92.89 - PERSONAL HISTORY OF OTHER MEDICAL TREATMENT (2) Infection with multi-drug resistant microorganisms Assessment/Plan: ID on board IV abx repeat labs in AM afebrile VSS Code(s): Z16.35 - RESISTANCE TO MULTIPLE ANTIMICROBIAL DRUGS (3) Neurogenic bladder Assessment/Plan: Chronic Pelaez catheter Code(s): N31.9 - NEUROMUSCULAR DYSFUNCTION OF BLADDER, UNSPECIFIED (4) Paraplegia following spinal cord injury Code(s): G82.20 - PARAPLEGIA, UNSPECIFIED (5) UTI (urinary tract infection) with pyuria Assessment/Plan: -iv abx -ID on board -repeat labs in AM -UC positive for Pseudomonas Code(s): N39.0 - URINARY TRACT INFECTION, SITE NOT SPECIFIED (6) Constipation Assessment/Plan: -GI on board -refusing laxatives, mineral oil enema -Awaiting GI to evaluate the patient again Code(s): K59.00 - CONSTIPATION, UNSPECIFIED Qualifiers: Constipation type: unspecified constipation type Qualified Code(s): K59.00 - Constipation, unspecified (7) Anemia Assessment/Plan: -received Iron sucrose -Hematology on board -H/H stable Code(s): D64.9 - ANEMIA, UNSPECIFIED Qualifiers: Anemia type: iron deficiency Other causes of anemia: due to other specified chronic disease (8) Bilateral nephrolithiasis Assessment/Plan: -BL Ureteral stents placed this admission for BL hydronephrosis -needs percuatneous lithotripsy at a tertiary center, is refusing it Code(s): N20.0 - CALCULUS OF KIDNEY (9) Effusion of hip Assessment/Plan: left hip Xray insignificant MRI left hip inconclusive of osteomyelitis, effusion of left hemipelvis Code(s): M25.459 - EFFUSION, UNSPECIFIED HIP Qualifiers: Laterality: left Qualified Code(s): M25.452 - Effusion, left hip Assessment/Plan see problem list
[2016-12-09] MEDS: BISACODYL 5 MG TABLET.DR (FP) PO SCH ×2 (11:17→21:38)
[2016-12-09] MEDS: GABAPENTIN 100 MG CAPSULE (FP) PO SCH (11:18)
[2016-12-09] MEDS: POLYETHYLENE GLYCOL 3350 119 GM BTL PO SCH ×2 (11:18→21:38)
[2016-12-09] MEDS: PANTOPRAZOLE 40 MG TABLET (FP) PO SCH ×2 (11:18→21:39)
[2016-12-09] MEDS: MINERAL OIL 30 ML UNIT-DOSE CUP PO PRN ×2 (11:19→22:32)
[2016-12-09] MEDS ORDERED: PT OWN MED DRAWER 7, Y5N ONE ×2 (11:21→21:41)
[2016-12-10] MEDS ORDERED: DEXTROSE 5%-WATER - 50 ML IVPB ONE ×3 (01:55→17:05)
[2016-12-10] MEDS ORDERED: PIPERACILLIN/TAZOBACTAM 3.375 GM VIAL IVPB ONE ×3 (01:55→17:05)
[2016-12-10] MEDS: PIPERACILLIN/TAZOB 3.375 GM 3.375 GM in DEXTROSE 5%-WATER - 50 ML IVPB SCH ×3 (02:01→17:08)
[2016-12-10 07:43] LABS: BASOPHIL 0.5 % (0-2.0); MCH 23.4 pg (25.7-33.7); MEAN CELL VOLUME 75.6 fl (80-96); NEUTROPHILS 83.2 % (42.8-82.8); PLATELET COUNT 339 K/MM3 (134-434); RDW 24.1 % (11.9-15.9); WHITE BLOOD COUNT 14.6 K/mm3 (4.0-10.0)
[2016-12-10 08:15] LABS: ALBUMIN 1.5 g/dl (3.4-5.0); ALK PHOS 175 U/L (45-117); ANION GAP 9 (8-16); BILIRUBIN,TOTAL 0.4 mg/dL (0.2-1.0); CALCIUM 8.4 mg/dL (8.5-10.1); CO2 28 mmol/L (21-32); CREATININE 0.6 mg/dL (0.7-1.3); GLUCOSE,RANDOM 80 mg/dL (74-106); SGOT/AST 23 U/L (15-37); SGPT/ALT 30 U/L (12-78); TOT PROT 7.2 g/dl (6.4-8.2)
[2016-12-10] MEDS: BISACODYL 5 MG TABLET.DR (FP) PO SCH ×2 (10:15→22:14)
[2016-12-10] MEDS: POLYETHYLENE GLYCOL 3350 119 GM BTL PO SCH ×2 (10:15→22:14)
[2016-12-10] MEDS: GABAPENTIN 100 MG CAPSULE (FP) PO SCH (10:16)
[2016-12-10] MEDS: PANTOPRAZOLE 40 MG TABLET (FP) PO SCH ×2 (10:16→22:14)
[2016-12-10] MEDS ORDERED: PT OWN MED DRAWER 7, Y5N ONE (11:00)
[2016-12-10] MEDS: MINERAL OIL 30 ML UNIT-DOSE CUP PO PRN (11:08)
--- NOTE | 2016-12-10 12:33 | PN ---
Progress Note, Physician History of Present Illness: Lethargic today No complaints Afebrile WBC remains slightly elevated No L flank pain - Current Medication List Current Medications: Active Medications Acetaminophen (Tylenol -) 1,000 mg PO Q6H PRN PRN Reason: FEVER OR PAIN Last Admin: 12/02/16 18:13 Dose: 1,000 mg Bisacodyl (Dulcolax -) 10 mg PO BID [facility] Last Admin: 12/10/16 10:15 Dose: Not Given Diphenhydramine HCl (Benadryl Injection -) 50 mg IVPB BID PRN PRN Reason: FOR ITCHING Last Admin: 11/19/16 22:43 Dose: 50 mg Gabapentin (Neurontin -) 100 mg PO DAILY [facility] Last Admin: 12/10/16 10:16 Dose: Not Given IV Flush (Picc Line Flush) 8 ml IVPUSH PRN PRN PRN Reason: Protocol Last Admin: 11/23/16 11:00 Dose: 8 ml IV Flush (Triple Lumen Flush) 4 ml IVPUSH PRN PRN PRN Reason: Protocol Last Admin: 12/07/16 10:22 Dose: 4 ml Piperacillin Sod/Tazobactam (Sod 3.375 gm/ Dextrose) 50 mls @ 100 mls/hr IVPB Q8H-IV [facility] PRN Reason: Protocol Last Admin: 12/10/16 10:02 Dose: 100 mls/hr Lactulose (Cephulac (Oral Use)) 15 gm PO TID PRN PRN Reason: CONSTIPATION Mineral Oil (Mineral Oil -) 30 ml PO BID PRN PRN Reason: CONSTIPATION Last Admin: 12/10/16 11:08 Dose: 30 ml Pantoprazole Sodium (Protonix -) 40 mg PO BID [facility] Last Admin: 12/10/16 10:16 Dose: Not Given Polyethylene Glycol (Miralax (For Daily Use) -) 17 gm PO BID [facility] Last Admin: 12/10/16 10:15 Dose: Not Given Simethicone (Mylicon -) 80 mg PO QID PRN Last Admin: 12/04/16 22:26 Dose: 80 mg - Objective Vital Signs: Vital Signs Temperature 98.6 F 12/10/16 03:00 Pulse Rate 85 12/10/16 03:00 Respiratory Rate 20 12/10/16 03:00 Blood Pressure 99/58 12/10/16 03:00 O2 Sat by Pulse Oximetry (%) 95 12/09/16 21:00 Constitutional: Yes: No Distress, Cachectic Eyes: Yes: Conjunctiva Clear Cardiovascular: Yes: Regular Rate and Rhythm, S1, S2 Respiratory: Yes: CTA Bilaterally Gastrointestinal: Yes: Normal Bowel Sounds, Soft. No: Tenderness Musculoskeletal: Yes: Other (+ L flank swelling, mildly erythematous) Edema: No Labs: CBC, BMP 12/10/16 06:00 12/10/16 06:00 Assessment/Plan Obstructive uropathy s/p stents Hx MDR urinary tract pathogens Low grade temp/ leukocytosis Paraplegia Sacral decubitus Large fluid collection L hemipelvis ? etiology Reviewed MRI with radiology ? urinoma CT with contrast suggested. Will order
--- NOTE | 2016-12-10 14:41 | PN ---
Progress Note, Physician Chief Complaint: Nephrolithiasis, decubitus ulcer, constipation History of Present Illness: NAD alert and oriented has constipation with intermittent diarrhea secondary to autonomic dysreflexia. Refuses laxatives, only wants mineral enemas, received 1 yesterday Had BM today, No nausea/vomiting today abdomen less distended seen by ID, IV abx WBC slightly elevated today low grade temps last evening UC growing Pseudomonas Left hip xray insignificant MRI inconclusive of osteomyelitis, shows large fluid collection in left hemipelvis Resistant to making a decision about either going home or to tertiary care center for percutaneous lithotripsy - Current Medication List Current Medications: Active Medications Acetaminophen (Tylenol -) 1,000 mg PO Q6H PRN PRN Reason: FEVER OR PAIN Last Admin: 12/02/16 18:13 Dose: 1,000 mg Bisacodyl (Dulcolax -) 10 mg PO BID [facility] Last Admin: 12/10/16 10:15 Dose: Not Given Diphenhydramine HCl (Benadryl Injection -) 50 mg IVPB BID PRN PRN Reason: FOR ITCHING Last Admin: 11/19/16 22:43 Dose: 50 mg Gabapentin (Neurontin -) 100 mg PO DAILY [facility] Last Admin: 12/10/16 10:16 Dose: Not Given IV Flush (Picc Line Flush) 8 ml IVPUSH PRN PRN PRN Reason: Protocol Last Admin: 11/23/16 11:00 Dose: 8 ml IV Flush (Triple Lumen Flush) 4 ml IVPUSH PRN PRN PRN Reason: Protocol Last Admin: 12/07/16 10:22 Dose: 4 ml Piperacillin Sod/Tazobactam (Sod 3.375 gm/ Dextrose) 50 mls @ 100 mls/hr IVPB Q8H-IV [facility] PRN Reason: Protocol Last Admin: 12/10/16 10:02 Dose: 100 mls/hr Lactulose (Cephulac (Oral Use)) 15 gm PO TID PRN PRN Reason: CONSTIPATION Mineral Oil (Mineral Oil -) 30 ml PO BID PRN PRN Reason: CONSTIPATION Last Admin: 12/10/16 11:08 Dose: 30 ml Pantoprazole Sodium (Protonix -) 40 mg PO BID [facility] Last Admin: 12/10/16 10:16 Dose: Not Given Polyethylene Glycol (Miralax (For Daily Use) -) 17 gm PO BID [facility] Last Admin: 12/10/16 10:15 Dose: Not Given Simethicone (Mylicon -) 80 mg PO QID PRN Last Admin: 12/04/16 22:26 Dose: 80 mg - Objective Vital Signs: Vital Signs Temperature 98.1 F 12/10/16 14:31 Pulse Rate 79 12/10/16 14:31 Respiratory Rate 20 12/10/16 14:31 Blood Pressure 112/68 12/10/16 14:31 O2 Sat by Pulse Oximetry (%) 95 12/10/16 09:00 Constitutional: Yes: Well Nourished, No Distress, Calm Cardiovascular: Yes: Regular Rate and Rhythm Respiratory: Yes: Regular Gastrointestinal: Yes: Ascites, Hypoactive Bowel Sounds Musculoskeletal: Yes: Other (paraplegia) Edema: Yes (left hip) Peripheral Pulses WNL: Yes Neurological: Yes: Alert, Oriented Psychiatric: Yes: Alert, Oriented Labs: CBC, BMP 12/10/16 06:00 12/10/16 06:00 Problem List - Problems (1) Chronic indwelling Pelaez catheter Assessment/Plan: -Pelaez catheter Code(s): Z92.89 - PERSONAL HISTORY OF OTHER MEDICAL TREATMENT (2) Infection with multi-drug resistant microorganisms Assessment/Plan: ID on board IV abx repeat labs in AM afebrile VSS Code(s): Z16.35 - RESISTANCE TO MULTIPLE ANTIMICROBIAL DRUGS (3) Neurogenic bladder Assessment/Plan: Chronic Pelaez catheter Code(s): N31.9 - NEUROMUSCULAR DYSFUNCTION OF BLADDER, UNSPECIFIED (4) Paraplegia following spinal cord injury Code(s): G82.20 - PARAPLEGIA, UNSPECIFIED (5) UTI (urinary tract infection) with pyuria Assessment/Plan: -iv abx -ID on board -repeat labs in AM -UC positive for Pseudomonas Code(s): N39.0 - URINARY TRACT INFECTION, SITE NOT SPECIFIED (6) Constipation Assessment/Plan: -GI on board -refusing laxatives, mineral oil enema -Awaiting GI to evaluate the patient again Code(s): K59.00 - CONSTIPATION, UNSPECIFIED Qualifiers: Constipation type: unspecified constipation type Qualified Code(s): K59.00 - Constipation, unspecified (7) Anemia Assessment/Plan: -received Iron sucrose -Hematology on board -H/H stable Code(s): D64.9 - ANEMIA, UNSPECIFIED Qualifiers: Anemia type: iron deficiency Other causes of anemia: due to other specified chronic disease (8) Bilateral nephrolithiasis Assessment/Plan: -BL Ureteral stents placed this admission for BL hydronephrosis -needs percuatneous lithotripsy at a tertiary center, is refusing it Code(s): N20.0 - CALCULUS OF KIDNEY (9) Effusion of hip Assessment/Plan: left hip Xray insignificant MRI left hip inconclusive of osteomyelitis, effusion of left hemipelvis CT abd contrast ordered Code(s): M25.459 - EFFUSION, UNSPECIFIED HIP Qualifiers: Laterality: left Qualified Code(s): M25.452 - Effusion, left hip Assessment/Plan see problem list
[2016-12-10] MEDS ORDERED: ALTEPLASE 2 MG VIAL IVPUSH ONE ×2 (17:00→17:05)
--- NOTE | 2016-12-10 22:08 | PN ---
Progress Note (short form) - Note Progress Note: Patient seen/followed for a soft bulge in Left flank Looks pale, concerned about soft tissue left flank since last week Laboratory Tests 12/07/16 12/09/16 12/09/16 12:00 07:00 07:00 WBC 15.9 H Hgb 8.1 L Hct 25.7 L MCV 75.2 L MCH 23.7 L MCHC 31.6 L RDW 23.9 H Neutrophils % Anion Gap 7 L BUN 18 Iron Saturation 9 L Total Bilirubin Alkaline Phosphatase 157 H Total Protein 7.1 Albumin 1.5 L 12/10/16 12/10/16 06:00 06:00 WBC 14.6 H Hgb 8.3 L Hct 26.6 L MCV 75.6 L MCH 23.4 L MCHC 31.0 L RDW 24.1 H Neutrophils % 83.2 H Anion Gap 9 BUN 17 Iron Saturation Total Bilirubin 0.4 Alkaline Phosphatase 175 H Total Protein 7.2 Albumin 1.5 L Plan : 1. Very Low albunin, 2. Erythema Left flank has increased in size , expanding towards inguinal area, warm, soft in lwer back 3. MRI inconclusive report. Positive for edema . Patient had several questions, I answered each concern f Re Command
[2016-12-11] MEDS ORDERED: PIPERACILLIN/TAZOBACTAM 3.375 GM VIAL IVPB ONE ×3 (00:54→17:43)
[2016-12-11] MEDS ORDERED: DEXTROSE 5%-WATER - 50 ML IVPB ONE ×3 (00:54→17:44)
[2016-12-11] MEDS: PIPERACILLIN/TAZOB 3.375 GM 3.375 GM in DEXTROSE 5%-WATER - 50 ML IVPB SCH ×3 (01:10→17:56)
[2016-12-11 07:25] LABS: BASOPHIL 0.5 % (0-2.0); EOSINOPHIL 2.1 % (0-4.5); MCH 23.8 pg (25.7-33.7); MCHC 31.4 g/dl (32.0-35.9); MEAN CELL VOLUME 75.9 fl (80-96); NEUTROPHILS 81.5 % (42.8-82.8); PLATELET COUNT 342 K/MM3 (134-434); RDW 24.5 % (11.9-15.9); WHITE BLOOD COUNT 14.5 K/mm3 (4.0-10.0)
--- NOTE | 2016-12-11 11:12 | PN ---
Progress Note, Physician Chief Complaint: Nephrolithiasis, decubitus ulcer, constipation History of Present Illness: NAD alert and oriented has constipation with intermittent diarrhea secondary to autonomic dysreflexia. seen by ID, IV abx WBC slightly elevated today low grade temps last evening UC growing Pseudomonas Left hip xray insignificant MRI inconclusive of osteomyelitis, shows large fluid collection in left hemipelvis CT abd/pelvis shows large amount of fluid left hip and fecal impaction,Refuses laxatives, only wants mineral enemas, received 1 yesterday Resistant to making a decision about either going home or to tertiary care center for percutaneous lithotripsy - Current Medication List Current Medications: Active Medications Acetaminophen (Tylenol -) 1,000 mg PO Q6H PRN PRN Reason: FEVER OR PAIN Last Admin: 12/02/16 18:13 Dose: 1,000 mg Bisacodyl (Dulcolax -) 10 mg PO BID [facility] Last Admin: 12/10/16 22:14 Dose: Not Given Diphenhydramine HCl (Benadryl Injection -) 50 mg IVPB BID PRN PRN Reason: FOR ITCHING Last Admin: 11/19/16 22:43 Dose: 50 mg Gabapentin (Neurontin -) 100 mg PO DAILY [facility] Last Admin: 12/10/16 10:16 Dose: Not Given IV Flush (Picc Line Flush) 8 ml IVPUSH PRN PRN PRN Reason: Protocol Last Admin: 11/23/16 11:00 Dose: 8 ml IV Flush (Triple Lumen Flush) 4 ml IVPUSH PRN PRN PRN Reason: Protocol Last Admin: 12/07/16 10:22 Dose: 4 ml Piperacillin Sod/Tazobactam (Sod 3.375 gm/ Dextrose) 50 mls @ 100 mls/hr IVPB Q8H-IV [facility] PRN Reason: Protocol Last Admin: 12/11/16 01:10 Dose: 100 mls/hr Lactulose (Cephulac (Oral Use)) 15 gm PO TID PRN PRN Reason: CONSTIPATION Mineral Oil (Mineral Oil -) 30 ml PO BID PRN PRN Reason: CONSTIPATION Last Admin: 12/10/16 11:08 Dose: 30 ml Pantoprazole Sodium (Protonix -) 40 mg PO BID [facility] Last Admin: 12/10/16 22:14 Dose: Not Given Polyethylene Glycol (Miralax (For Daily Use) -) 17 gm PO BID [facility] Last Admin: 12/10/16 22:14 Dose: Not Given Simethicone (Mylicon -) 80 mg PO QID PRN Last Admin: 12/04/16 22:26 Dose: 80 mg - Objective Vital Signs: Vital Signs Temperature 98.2 F 12/11/16 08:48 Pulse Rate 86 12/11/16 08:48 Respiratory Rate 18 12/11/16 08:48 Blood Pressure 98/68 12/11/16 08:48 O2 Sat by Pulse Oximetry (%) 96 12/10/16 21:00 Constitutional: Yes: Well Nourished, No Distress, Calm Cardiovascular: Yes: Regular Rate and Rhythm Respiratory: Yes: Regular Gastrointestinal: Yes: Hypoactive Bowel Sounds Edema: Yes (left hip) Neurological: Yes: Alert, Oriented Psychiatric: Yes: Alert, Oriented Labs: CBC, BMP 12/11/16 06:00 12/10/16 06:00 Problem List - Problems (1) Chronic indwelling Pelaez catheter Assessment/Plan: -Pelaez catheter Code(s): Z92.89 - PERSONAL HISTORY OF OTHER MEDICAL TREATMENT (2) Infection with multi-drug resistant microorganisms Assessment/Plan: ID on board IV abx repeat labs in AM afebrile VSS Code(s): Z16.35 - RESISTANCE TO MULTIPLE ANTIMICROBIAL DRUGS (3) Neurogenic bladder Assessment/Plan: Chronic Pelaez catheter Code(s): N31.9 - NEUROMUSCULAR DYSFUNCTION OF BLADDER, UNSPECIFIED (4) Paraplegia following spinal cord injury Code(s): G82.20 - PARAPLEGIA, UNSPECIFIED (5) UTI (urinary tract infection) with pyuria Assessment/Plan: -iv abx -ID on board -repeat labs in AM -UC positive for Pseudomonas Code(s): N39.0 - URINARY TRACT INFECTION, SITE NOT SPECIFIED (6) Constipation Assessment/Plan: -GI on board -refusing laxatives, mineral oil enema -CT abd shows fecal impaction Code(s): K59.00 - CONSTIPATION, UNSPECIFIED Qualifiers: Constipation type: unspecified constipation type Qualified Code(s): K59.00 - Constipation, unspecified (7) Anemia Assessment/Plan: -received Iron sucrose -Hematology on board -H/H stable Code(s): D64.9 - ANEMIA, UNSPECIFIED Qualifiers: Anemia type: iron deficiency Other causes of anemia: due to other specified chronic disease (8) Bilateral nephrolithiasis Assessment/Plan: -BL Ureteral stents placed this admission for BL hydronephrosis -needs percuatneous lithotripsy at a tertiary center, is refusing it Code(s): N20.0 - CALCULUS OF KIDNEY (9) Effusion of hip Assessment/Plan: -left hip Xray insignificant -MRI left hip inconclusive of osteomyelitis, effusion of left hemipelvis -CT abd contrast shows large left hip and abd effusion -IR consult for drain Code(s): M25.459 - EFFUSION, UNSPECIFIED HIP Qualifiers: Laterality: left Qualified Code(s): M25.452 - Effusion, left hip Assessment/Plan see problem list
[2016-12-11] MEDS: POLYETHYLENE GLYCOL 3350 119 GM BTL PO SCH ×2 (11:25→22:46)
[2016-12-11] MEDS: GABAPENTIN 100 MG CAPSULE (FP) PO SCH (11:25)
[2016-12-11] MEDS: PANTOPRAZOLE 40 MG TABLET (FP) PO SCH ×2 (11:25→22:46)
[2016-12-11] MEDS: BISACODYL 5 MG TABLET.DR (FP) PO SCH ×2 (11:26→22:46)
--- NOTE | 2016-12-11 11:31 | PN ---
Progress Note, Physician History of Present Illness: Awake, responsive No complaints No c/o fever/ chills Afebrile WBC remains slightly elevated - Current Medication List Current Medications: Active Medications Acetaminophen (Tylenol -) 1,000 mg PO Q6H PRN PRN Reason: FEVER OR PAIN Last Admin: 12/02/16 18:13 Dose: 1,000 mg Bisacodyl (Dulcolax -) 10 mg PO BID [facility] Last Admin: 12/10/16 22:14 Dose: Not Given Diphenhydramine HCl (Benadryl Injection -) 50 mg IVPB BID PRN PRN Reason: FOR ITCHING Last Admin: 11/19/16 22:43 Dose: 50 mg Gabapentin (Neurontin -) 100 mg PO DAILY [facility] Last Admin: 12/10/16 10:16 Dose: Not Given IV Flush (Picc Line Flush) 8 ml IVPUSH PRN PRN PRN Reason: Protocol Last Admin: 11/23/16 11:00 Dose: 8 ml IV Flush (Triple Lumen Flush) 4 ml IVPUSH PRN PRN PRN Reason: Protocol Last Admin: 12/07/16 10:22 Dose: 4 ml Piperacillin Sod/Tazobactam (Sod 3.375 gm/ Dextrose) 50 mls @ 100 mls/hr IVPB Q8H-IV [facility] PRN Reason: Protocol Last Admin: 12/11/16 01:10 Dose: 100 mls/hr Lactulose (Cephulac (Oral Use)) 15 gm PO TID PRN PRN Reason: CONSTIPATION Mineral Oil (Mineral Oil -) 30 ml PO BID PRN PRN Reason: CONSTIPATION Last Admin: 12/10/16 11:08 Dose: 30 ml Pantoprazole Sodium (Protonix -) 40 mg PO BID [facility] Last Admin: 12/10/16 22:14 Dose: Not Given Polyethylene Glycol (Miralax (For Daily Use) -) 17 gm PO BID [facility] Last Admin: 12/10/16 22:14 Dose: Not Given Simethicone (Mylicon -) 80 mg PO QID PRN Last Admin: 12/04/16 22:26 Dose: 80 mg - Objective Vital Signs: Vital Signs Temperature 98.2 F 12/11/16 08:48 Pulse Rate 86 12/11/16 08:48 Respiratory Rate 18 12/11/16 08:48 Blood Pressure 98/68 12/11/16 08:48 O2 Sat by Pulse Oximetry (%) 96 12/10/16 21:00 Constitutional: Yes: No Distress, Cachectic Eyes: Yes: Conjunctiva Clear Cardiovascular: Yes: Regular Rate and Rhythm, S1, S2 Respiratory: Yes: CTA Bilaterally Gastrointestinal: Yes: Normal Bowel Sounds, Soft, Other (distended). No: Tenderness Musculoskeletal: Yes: Other (swelling L hip area; non tender) Labs: CBC, BMP 12/11/16 06:00 12/10/16 06:00 Assessment/Plan Obstructive uropathy s/p stents Hx MDR urinary tract pathogens Low grade temp/ leukocytosis Paraplegia Sacral decubitus Large fluid collection L hemipelvis ? etiology Reviewed MRI with radiology ? urinoma CT done; shows loculated collection. Will discuss possible drainage with IR
[2016-12-11] MEDS ORDERED: PT OWN MED DRAWER 7, Y5N ONE (12:00)
[2016-12-11] MEDS: MINERAL OIL 30 ML UNIT-DOSE CUP PO PRN (12:11)
[2016-12-12] MEDS ORDERED: PIPERACILLIN/TAZOBACTAM 3.375 GM VIAL IVPB ONE ×3 (00:29→18:12)
[2016-12-12] MEDS ORDERED: DEXTROSE 5%-WATER - 50 ML IVPB ONE ×3 (00:29→18:12)
[2016-12-12] MEDS: PIPERACILLIN/TAZOB 3.375 GM 3.375 GM in DEXTROSE 5%-WATER - 50 ML IVPB SCH ×3 (01:30→18:14)
[2016-12-12] MEDS ORDERED: PT OWN MED DRAWER 7, Y5N ONE (10:19)
[2016-12-12] MEDS: GABAPENTIN 100 MG CAPSULE (FP) PO SCH (10:22)
[2016-12-12] MEDS: PANTOPRAZOLE 40 MG TABLET (FP) PO SCH ×2 (10:22→21:52)
[2016-12-12] MEDS: POLYETHYLENE GLYCOL 3350 119 GM BTL PO SCH ×2 (10:22→21:52)
[2016-12-12] MEDS: BISACODYL 5 MG TABLET.DR (FP) PO SCH ×2 (10:22→21:52)
--- NOTE | 2016-12-12 10:22 | PN ---
Progress Note, Physician Chief Complaint: Nephrolithiasis, decubitus ulcer, constipation History of Present Illness: NAD alert and oriented has constipation with intermittent diarrhea secondary to autonomic dysreflexia. seen by ID, IV abx WBC slightly elevated today low grade temps last evening UC growing Pseudomonas Left hip xray insignificant MRI inconclusive of osteomyelitis, shows large fluid collection in left hemipelvis CT abd/pelvis shows large amount of fluid left hip and fecal impaction,Refuses laxatives, only wants mineral enemas, received 1 yesterday Resistant to making a decision about either going home or to tertiary [facility] center for percutaneous lithotripsy Awaiting IR consult - Current Medication List Current Medications: Active Medications Acetaminophen (Tylenol -) 1,000 mg PO Q6H PRN PRN Reason: FEVER OR PAIN Last Admin: 12/02/16 18:13 Dose: 1,000 mg Bisacodyl (Dulcolax -) 10 mg PO BID [facility] Last Admin: 12/11/16 22:46 Dose: Not Given Diphenhydramine HCl (Benadryl Injection -) 50 mg IVPB BID PRN PRN Reason: FOR ITCHING Last Admin: 11/19/16 22:43 Dose: 50 mg Gabapentin (Neurontin -) 100 mg PO DAILY [facility] Last Admin: 12/11/16 11:25 Dose: Not Given IV Flush (Picc Line Flush) 8 ml IVPUSH PRN PRN PRN Reason: Protocol Last Admin: 11/23/16 11:00 Dose: 8 ml IV Flush (Triple Lumen Flush) 4 ml IVPUSH PRN PRN PRN Reason: Protocol Last Admin: 12/07/16 10:22 Dose: 4 ml Piperacillin Sod/Tazobactam (Sod 3.375 gm/ Dextrose) 50 mls @ 100 mls/hr IVPB Q8H-IV [facility] PRN Reason: Protocol Last Admin: 12/12/16 01:30 Dose: 100 mls/hr Lactulose (Cephulac (Oral Use)) 15 gm PO TID PRN PRN Reason: CONSTIPATION Mineral Oil (Mineral Oil -) 30 ml PO BID PRN PRN Reason: CONSTIPATION Last Admin: 12/11/16 12:11 Dose: 30 ml Pantoprazole Sodium (Protonix -) 40 mg PO BID [facility] Last Admin: 12/11/16 22:46 Dose: Not Given Polyethylene Glycol (Miralax (For Daily Use) -) 17 gm PO BID [facility] Last Admin: 12/11/16 22:46 Dose: Not Given Simethicone (Mylicon -) 80 mg PO QID PRN Last Admin: 12/04/16 22:26 Dose: 80 mg - Objective Vital Signs: Vital Signs Temperature 97.5 F L 12/12/16 10:00 Pulse Rate 76 12/12/16 10:00 Respiratory Rate 18 12/12/16 10:00 Blood Pressure 113/70 12/12/16 10:00 O2 Sat by Pulse Oximetry (%) 96 12/11/16 21:00 Constitutional: Yes: Well Nourished, No Distress, Calm Cardiovascular: Yes: Regular Rate and Rhythm Respiratory: Yes: Regular Gastrointestinal: Yes: Ascites, Distention, Hypoactive Bowel Sounds Edema: Yes (Left hip) Wound/Incision: Yes: Dressing Dry and Intact Neurological: Yes: Alert, Oriented Psychiatric: Yes: Alert, Oriented Labs: CBC, BMP 12/11/16 06:00 12/10/16 06:00 Problem List - Problems (1) Chronic indwelling Pelaez catheter Assessment/Plan: -Pelaez catheter Code(s): Z92.89 - PERSONAL HISTORY OF OTHER MEDICAL TREATMENT (2) Infection with multi-drug resistant microorganisms Assessment/Plan: ID on board IV abx repeat labs in AM afebrile VSS Code(s): Z16.35 - RESISTANCE TO MULTIPLE ANTIMICROBIAL DRUGS (3) Neurogenic bladder Assessment/Plan: Chronic Pelaez catheter Code(s): N31.9 - NEUROMUSCULAR DYSFUNCTION OF BLADDER, UNSPECIFIED (4) Paraplegia following spinal cord injury Code(s): G82.20 - PARAPLEGIA, UNSPECIFIED (5) UTI (urinary tract infection) with pyuria Assessment/Plan: -iv abx -ID on board -repeat labs in AM -UC positive for Pseudomonas Code(s): N39.0 - URINARY TRACT INFECTION, SITE NOT SPECIFIED (6) Constipation Assessment/Plan: -GI on board -refusing laxatives, mineral oil enema -CT abd shows fecal impaction Code(s): K59.00 - CONSTIPATION, UNSPECIFIED Qualifiers: Constipation type: unspecified constipation type Qualified Code(s): K59.00 - Constipation, unspecified (7) Anemia Assessment/Plan: -received Iron sucrose -Hematology on board -H/H stable Code(s): D64.9 - ANEMIA, UNSPECIFIED Qualifiers: Anemia type: iron deficiency Other causes of anemia: due to other specified chronic disease (8) Bilateral nephrolithiasis Assessment/Plan: -BL Ureteral stents placed this admission for BL hydronephrosis -needs percuatneous lithotripsy at a tertiary center, is refusing it Code(s): N20.0 - CALCULUS OF KIDNEY (9) Effusion of hip Assessment/Plan: -left hip Xray insignificant -MRI left hip inconclusive of osteomyelitis, effusion of left hemipelvis -CT abd contrast shows large left hip and abd effusion -Awaiting IR consult for drain Code(s): M25.459 - EFFUSION, UNSPECIFIED HIP Qualifiers: Laterality: left Qualified Code(s): M25.452 - Effusion, left hip Assessment/Plan see problem list
--- NOTE | 2016-12-12 11:50 | PN ---
Progress Note, Physician History of Present Illness: S/P percutaneous drainage of abdominal fluid collection Culture sent No c/o pain No fever/ chills - Current Medication List Current Medications: Active Medications Acetaminophen (Tylenol -) 1,000 mg PO Q6H PRN PRN Reason: FEVER OR PAIN Last Admin: 12/02/16 18:13 Dose: 1,000 mg Bisacodyl (Dulcolax -) 10 mg PO BID [facility] Last Admin: 12/12/16 10:22 Dose: Not Given Diphenhydramine HCl (Benadryl Injection -) 50 mg IVPB BID PRN PRN Reason: FOR ITCHING Last Admin: 11/19/16 22:43 Dose: 50 mg Gabapentin (Neurontin -) 100 mg PO DAILY [facility] Last Admin: 12/12/16 10:22 Dose: Not Given IV Flush (Picc Line Flush) 8 ml IVPUSH PRN PRN PRN Reason: Protocol Last Admin: 11/23/16 11:00 Dose: 8 ml IV Flush (Triple Lumen Flush) 4 ml IVPUSH PRN PRN PRN Reason: Protocol Last Admin: 12/07/16 10:22 Dose: 4 ml Piperacillin Sod/Tazobactam (Sod 3.375 gm/ Dextrose) 50 mls @ 100 mls/hr IVPB Q8H-IV [facility] PRN Reason: Protocol Last Admin: 12/12/16 10:23 Dose: 100 mls/hr Lactulose (Cephulac (Oral Use)) 15 gm PO TID PRN PRN Reason: CONSTIPATION Mineral Oil (Mineral Oil -) 30 ml PO BID PRN PRN Reason: CONSTIPATION Last Admin: 12/11/16 12:11 Dose: 30 ml Pantoprazole Sodium (Protonix -) 40 mg PO BID [facility] Last Admin: 12/12/16 10:22 Dose: Not Given Polyethylene Glycol (Miralax (For Daily Use) -) 17 gm PO BID [facility] Last Admin: 12/12/16 10:22 Dose: Not Given Simethicone (Mylicon -) 80 mg PO QID PRN Last Admin: 12/04/16 22:26 Dose: 80 mg - Objective Vital Signs: Vital Signs Temperature 97.5 F L 12/12/16 10:00 Pulse Rate 76 12/12/16 10:00 Respiratory Rate 18 12/12/16 10:00 Blood Pressure 113/70 12/12/16 10:00 O2 Sat by Pulse Oximetry (%) 96 12/11/16 21:00 Constitutional: Yes: No Distress, Cachectic Cardiovascular: Yes: Regular Rate and Rhythm, S1, S2 Respiratory: Yes: CTA Bilaterally Gastrointestinal: Yes: Normal Bowel Sounds, Soft, Other (Distended). No: Tenderness Edema: No Integumentary: Yes: Other (L flank drain in place) Labs: CBC, BMP 12/11/16 06:00 Assessment/Plan Obstructive uropathy s/p stents Hx MDR urinary tract pathogens Low grade temp/ leukocytosis Paraplegia Sacral decubitus Large fluid collection L hemipelvis ? etiology S/P drainage Await cultures Continue zosyn
[2016-12-13] MEDS ORDERED: PIPERACILLIN/TAZOBACTAM 3.375 GM VIAL IVPB ONE ×3 (01:17→18:10)
[2016-12-13] MEDS ORDERED: DEXTROSE 5%-WATER - 50 ML IVPB ONE ×3 (01:18→18:10)
[2016-12-13] MEDS: PIPERACILLIN/TAZOB 3.375 GM 3.375 GM in DEXTROSE 5%-WATER - 50 ML IVPB SCH ×3 (01:38→18:30)
--- NOTE | 2016-12-13 08:58 | PN ---
Progress Note, Physician Chief Complaint: Nephrolithiasis, decubitus ulcer, constipation History of Present Illness: NAD alert and oriented has constipation with intermittent diarrhea secondary to autonomic dysreflexia. seen by ID, IV abx WBC slightly elevated today low grade temps last evening UC growing Pseudomonas Left hip xray insignificant MRI inconclusive of osteomyelitis, shows large fluid collection in left hemipelvis with unknown etiology CT abd/pelvis shows large amount of fluid left hip and fecal impaction,Refuses laxatives, only wants mineral enemas, received 1 yesterday Resistant to making a decision about either going home or to tertiary care center for percutaneous lithotripsy LLQ YA draining serous fluid today, was purulent in the beginning, Growing MRSA and mixed organisms - Current Medication List Current Medications: Active Medications Acetaminophen (Tylenol -) 1,000 mg PO Q6H PRN PRN Reason: FEVER OR PAIN Last Admin: 12/02/16 18:13 Dose: 1,000 mg Bisacodyl (Dulcolax -) 10 mg PO BID [facility] Last Admin: 12/12/16 21:52 Dose: Not Given Diphenhydramine HCl (Benadryl Injection -) 50 mg IVPB BID PRN PRN Reason: FOR ITCHING Last Admin: 11/19/16 22:43 Dose: 50 mg Gabapentin (Neurontin -) 100 mg PO DAILY [facility] Last Admin: 12/12/16 10:22 Dose: Not Given IV Flush (Picc Line Flush) 8 ml IVPUSH PRN PRN PRN Reason: Protocol Last Admin: 11/23/16 11:00 Dose: 8 ml IV Flush (Triple Lumen Flush) 4 ml IVPUSH PRN PRN PRN Reason: Protocol Last Admin: 12/07/16 10:22 Dose: 4 ml Piperacillin Sod/Tazobactam (Sod 3.375 gm/ Dextrose) 50 mls @ 100 mls/hr IVPB Q8H-IV [facility] PRN Reason: Protocol Last Admin: 12/13/16 01:38 Dose: 100 mls/hr Lactulose (Cephulac (Oral Use)) 15 gm PO TID PRN PRN Reason: CONSTIPATION Mineral Oil (Mineral Oil -) 30 ml PO BID PRN PRN Reason: CONSTIPATION Last Admin: 12/11/16 12:11 Dose: 30 ml Pantoprazole Sodium (Protonix -) 40 mg PO BID [facility] Last Admin: 12/12/16 21:52 Dose: Not Given Polyethylene Glycol (Miralax (For Daily Use) -) 17 gm PO BID [facility] Last Admin: 12/12/16 21:52 Dose: Not Given Simethicone (Mylicon -) 80 mg PO QID PRN Last Admin: 12/04/16 22:26 Dose: 80 mg - Objective Vital Signs: Vital Signs Temperature 98.1 F 12/12/16 18:05 Pulse Rate 73 12/12/16 18:05 Respiratory Rate 18 12/12/16 21:00 Blood Pressure 101/65 12/12/16 18:05 O2 Sat by Pulse Oximetry (%) 96 12/12/16 21:00 Constitutional: Yes: Well Nourished, No Distress, Calm Cardiovascular: Yes: Regular Rate and Rhythm Respiratory: Yes: Regular Gastrointestinal: Yes: Ascites, Hypoactive Bowel Sounds Wound/Incision: Yes: Dressing Dry and Intact Neurological: Yes: Alert, Oriented Psychiatric: Yes: Alert, Oriented Labs: CBC, BMP 12/11/16 06:00 12/11/16 18:00 Problem List - Problems (1) Chronic indwelling Pelaez catheter Assessment/Plan: -Pelaez catheter Code(s): Z92.89 - PERSONAL HISTORY OF OTHER MEDICAL TREATMENT (2) Infection with multi-drug resistant microorganisms Assessment/Plan: ID on board IV abx repeat labs in AM afebrile VSS Code(s): Z16.35 - RESISTANCE TO MULTIPLE ANTIMICROBIAL DRUGS (3) Neurogenic bladder Assessment/Plan: Chronic Pelaez catheter Code(s): N31.9 - NEUROMUSCULAR DYSFUNCTION OF BLADDER, UNSPECIFIED (4) Paraplegia following spinal cord injury Code(s): G82.20 - PARAPLEGIA, UNSPECIFIED (5) UTI (urinary tract infection) with pyuria Assessment/Plan: -iv abx -ID on board -repeat labs in AM -UC positive for Pseudomonas Code(s): N39.0 - URINARY TRACT INFECTION, SITE NOT SPECIFIED (6) Constipation Assessment/Plan: -GI on board -refusing laxatives, mineral oil enema -CT abd shows fecal impaction Code(s): K59.00 - CONSTIPATION, UNSPECIFIED Qualifiers: Constipation type: unspecified constipation type Qualified Code(s): K59.00 - Constipation, unspecified (7) Anemia Assessment/Plan: -received Iron sucrose -Hematology on board -H/H stable Code(s): D64.9 - ANEMIA, UNSPECIFIED Qualifiers: Anemia type: iron deficiency Other causes of anemia: due to other specified chronic disease (8) Bilateral nephrolithiasis Assessment/Plan: -BL Ureteral stents placed this admission for BL hydronephrosis -needs percuatneous lithotripsy at a tertiary center, is refusing it Code(s): N20.0 - CALCULUS OF KIDNEY (9) Effusion of hip Assessment/Plan: -left hip Xray insignificant -MRI left hip inconclusive of osteomyelitis, effusion of left hemipelvis, etiology unknown -CT abd contrast shows large left hip and abd effusion -LLQ YA drain with cerous fluid today, was purulent at first Code(s): M25.459 - EFFUSION, UNSPECIFIED HIP Qualifiers: Laterality: left Qualified Code(s): M25.452 - Effusion, left hip Assessment/Plan see problem list
[2016-12-13] MEDS: MINERAL OIL 30 ML UNIT-DOSE CUP PO PRN (11:05)
[2016-12-13] MEDS: PANTOPRAZOLE 40 MG TABLET (FP) PO SCH ×2 (11:05→21:40)
[2016-12-13] MEDS: BISACODYL 5 MG TABLET.DR (FP) PO SCH ×2 (11:06→21:39)
[2016-12-13] MEDS: POLYETHYLENE GLYCOL 3350 119 GM BTL PO SCH ×2 (11:07→21:39)
[2016-12-13] MEDS: GABAPENTIN 100 MG CAPSULE (FP) PO SCH (11:07)
--- NOTE | 2016-12-13 12:17 | PN ---
Progress Note, Physician History of Present Illness: No c/o pain Afebrile Abdominal fluid drain growing mixed organisms, including MRSA - Current Medication List Current Medications: Active Medications Acetaminophen (Tylenol -) 1,000 mg PO Q6H PRN PRN Reason: FEVER OR PAIN Last Admin: 12/02/16 18:13 Dose: 1,000 mg Bisacodyl (Dulcolax -) 10 mg PO BID [facility] Last Admin: 12/13/16 11:06 Dose: Not Given Diphenhydramine HCl (Benadryl Injection -) 50 mg IVPB BID PRN PRN Reason: FOR ITCHING Last Admin: 11/19/16 22:43 Dose: 50 mg Gabapentin (Neurontin -) 100 mg PO DAILY [facility] Last Admin: 12/13/16 11:07 Dose: Not Given IV Flush (Picc Line Flush) 8 ml IVPUSH PRN PRN PRN Reason: Protocol Last Admin: 11/23/16 11:00 Dose: 8 ml IV Flush (Triple Lumen Flush) 4 ml IVPUSH PRN PRN PRN Reason: Protocol Last Admin: 12/07/16 10:22 Dose: 4 ml Piperacillin Sod/Tazobactam (Sod 3.375 gm/ Dextrose) 50 mls @ 100 mls/hr IVPB Q8H-IV [facility] PRN Reason: Protocol Last Admin: 12/13/16 11:04 Dose: 100 mls/hr Lactulose (Cephulac (Oral Use)) 15 gm PO TID PRN PRN Reason: CONSTIPATION Mineral Oil (Mineral Oil -) 30 ml PO BID PRN PRN Reason: CONSTIPATION Last Admin: 12/13/16 11:05 Dose: 30 ml Pantoprazole Sodium (Protonix -) 40 mg PO BID [facility] Last Admin: 12/13/16 11:05 Dose: 40 mg Polyethylene Glycol (Miralax (For Daily Use) -) 17 gm PO BID [facility] Last Admin: 12/13/16 11:07 Dose: Not Given Simethicone (Mylicon -) 80 mg PO QID PRN Last Admin: 12/04/16 22:26 Dose: 80 mg - Objective Vital Signs: Vital Signs Temperature 98.1 F 12/12/16 18:05 Pulse Rate 73 12/12/16 18:05 Respiratory Rate 18 12/12/16 21:00 Blood Pressure 101/65 12/12/16 18:05 O2 Sat by Pulse Oximetry (%) 96 12/12/16 21:00 Constitutional: Yes: No Distress, Cachectic Cardiovascular: Yes: Regular Rate and Rhythm, S1, S2 Respiratory: Yes: CTA Bilaterally Gastrointestinal: Yes: Normal Bowel Sounds, Soft Extremities: Yes: Other (L flank drain in place) Labs: CBC, BMP 12/11/16 06:00 12/11/16 18:00 Assessment/Plan Obstructive uropathy s/p stents Hx MDR urinary tract pathogens Low grade temp/ leukocytosis Paraplegia Sacral decubitus Large fluid collection L hemipelvis ? etiology S/P drainage c/s mixed organisms including MRSA Continue zosyn add vancomycin
[2016-12-13] MEDS: VANCOMYCIN 1,000 MG in DEXTROSE 5%-WATER - 250 ML IVPB SCH (15:16)
[2016-12-14] MEDS ORDERED: PIPERACILLIN/TAZOBACTAM 3.375 GM VIAL IVPB ONE (00:51)
[2016-12-14] MEDS ORDERED: DEXTROSE 5%-WATER - 50 ML IVPB ONE (00:52)
[2016-12-14] MEDS: PIPERACILLIN/TAZOB 3.375 GM 3.375 GM in DEXTROSE 5%-WATER - 50 ML IVPB SCH (01:17)
[2016-12-14] MEDS: VANCOMYCIN 1,000 MG in DEXTROSE 5%-WATER - 250 ML IVPB SCH ×2 (02:00→15:48)
[2016-12-14] MEDS ORDERED: PT OWN MED DRAWER 7, Y5N ONE ×2 (06:21→08:59)
--- NOTE | 2016-12-14 08:44 | PN ---
Progress Note, Physician Chief Complaint: ID Floresita Morales Afebrile No complaints - Current Medication List Current Medications: Active Medications Acetaminophen (Tylenol -) 1,000 mg PO Q6H PRN PRN Reason: FEVER OR PAIN Last Admin: 12/02/16 18:13 Dose: 1,000 mg Bisacodyl (Dulcolax -) 10 mg PO BID [facility] Last Admin: 12/13/16 21:39 Dose: Not Given Diphenhydramine HCl (Benadryl Injection -) 50 mg IVPB BID PRN PRN Reason: FOR ITCHING Last Admin: 11/19/16 22:43 Dose: 50 mg Gabapentin (Neurontin -) 100 mg PO DAILY [facility] Last Admin: 12/13/16 11:07 Dose: Not Given IV Flush (Picc Line Flush) 8 ml IVPUSH PRN PRN PRN Reason: Protocol Last Admin: 11/23/16 11:00 Dose: 8 ml IV Flush (Triple Lumen Flush) 4 ml IVPUSH PRN PRN PRN Reason: Protocol Last Admin: 12/07/16 10:22 Dose: 4 ml Piperacillin Sod/Tazobactam (Sod 3.375 gm/ Dextrose) 50 mls @ 100 mls/hr IVPB Q8H-IV [facility] PRN Reason: Protocol Last Admin: 12/14/16 01:17 Dose: 100 mls/hr Vancomycin HCl 1,000 mg/ (Dextrose) 250 mls @ 166.667 mls/hr IVPB BID@0030, 1230 [facility] Last Admin: 12/14/16 02:00 Dose: 166.667 mls/hr Lactulose (Cephulac (Oral Use)) 15 gm PO TID PRN PRN Reason: CONSTIPATION Mineral Oil (Mineral Oil -) 30 ml PO BID PRN PRN Reason: CONSTIPATION Last Admin: 12/13/16 11:05 Dose: 30 ml Pantoprazole Sodium (Protonix -) 40 mg PO BID [facility] Last Admin: 12/13/16 21:40 Dose: Not Given Polyethylene Glycol (Miralax (For Daily Use) -) 17 gm PO BID [facility] Last Admin: 12/13/16 21:39 Dose: Not Given Simethicone (Mylicon -) 80 mg PO QID PRN Last Admin: 12/04/16 22:26 Dose: 80 mg - Objective Vital Signs: Vital Signs Temperature 97.9 F 12/13/16 18:00 Pulse Rate 66 12/13/16 18:00 Respiratory Rate 18 12/13/16 20:50 Blood Pressure 111/61 12/13/16 18:00 O2 Sat by Pulse Oximetry (%) 96 12/13/16 20:50 Eyes: Yes: WNL, Conjunctiva Clear HENT: Yes: WNL, Atraumatic Neck: Yes: WNL, Supple Cardiovascular: Yes: Regular Rate and Rhythm, S1, S2. No: Murmur Respiratory: Yes: WNL, Regular, CTA Bilaterally Gastrointestinal: Yes: Soft, Other (Draingage catheter lef) Labs: CBC, BMP 12/11/16 06:00 12/11/16 18:00 Problem List - Problems (1) UTI (urinary tract infection) with pyuria Code(s): N39.0 - URINARY TRACT INFECTION, SITE NOT SPECIFIED (2) Infection with multi-drug resistant microorganisms Code(s): Z16.35 - RESISTANCE TO MULTIPLE ANTIMICROBIAL DRUGS Assessment/Plan Microbiology 11/30/16 14:30 Urine - Urine - Catheterized Urine Culture - Final Pseudomonas Aeruginosa Laboratory Tests 12/11/16 06:00 WBC 14.5 H RBC 3.43 L Plt Count 342 ASSESSMENT PSOAS ABSCESS polymicrobial maría on Vanco Zosyn Panresistant pseudomonas in urine ? 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
[2016-12-14] MEDS: POLYETHYLENE GLYCOL 3350 119 GM BTL PO SCH ×2 (11:40→23:19)
[2016-12-14] MEDS: BISACODYL 5 MG TABLET.DR (FP) PO SCH ×2 (11:40→23:19)
[2016-12-14] MEDS: PANTOPRAZOLE 40 MG TABLET (FP) PO SCH ×2 (11:41→23:19)
[2016-12-14] MEDS: GABAPENTIN 100 MG CAPSULE (FP) PO SCH (11:41)
[2016-12-14] MEDS: MINERAL OIL 30 ML UNIT-DOSE CUP PO PRN ×2 (12:09→22:18)
--- NOTE | 2016-12-14 12:15 | PN ---
Progress Note, Physician Chief Complaint: Nephrolithiasis, decubitus ulcer, constipation History of Present Illness: NAD alert and oriented has constipation with intermittent diarrhea secondary to autonomic dysreflexia. seen by ID, IV abx, Zosyn discontinue, still on Vnaco WBC slightly elevated today low grade temps last evening UC growing Pseudomonas Left hip xray insignificant MRI inconclusive of osteomyelitis, shows large fluid collection in left hemipelvis with unknown etiology CT abd/pelvis shows large amount of fluid left hip and fecal impaction,Refuses laxatives, only wants mineral enemas, received 1 yesterday Resistant to making a decision about either going home or to tertiary [facility] for percutaneous lithotripsy LLQ YA draining serous fluid today, was purulent in the beginning, Growing MRSA and mixed organisms - Current Medication List Current Medications: Active Medications Acetaminophen (Tylenol -) 1,000 mg PO Q6H PRN PRN Reason: FEVER OR PAIN Last Admin: 12/02/16 18:13 Dose: 1,000 mg Bisacodyl (Dulcolax -) 10 mg PO BID [facility] Last Admin: 12/14/16 11:40 Dose: Not Given Diphenhydramine HCl (Benadryl Injection -) 50 mg IVPB BID PRN PRN Reason: FOR ITCHING Last Admin: 11/19/16 22:43 Dose: 50 mg Gabapentin (Neurontin -) 100 mg PO DAILY [facility] Last Admin: 12/14/16 11:41 Dose: Not Given IV Flush (Picc Line Flush) 8 ml IVPUSH PRN PRN PRN Reason: Protocol Last Admin: 11/23/16 11:00 Dose: 8 ml IV Flush (Triple Lumen Flush) 4 ml IVPUSH PRN PRN PRN Reason: Protocol Last Admin: 12/07/16 10:22 Dose: 4 ml Vancomycin HCl 1,000 mg/ (Dextrose) 250 mls @ 166.667 mls/hr IVPB BID@0030, 1230 [facility] Last Admin: 12/14/16 02:00 Dose: 166.667 mls/hr Lactulose (Cephulac (Oral Use)) 15 gm PO TID PRN PRN Reason: CONSTIPATION Mineral Oil (Mineral Oil -) 30 ml PO BID PRN PRN Reason: CONSTIPATION Last Admin: 12/13/16 11:05 Dose: 30 ml Pantoprazole Sodium (Protonix -) 40 mg PO BID [facility] Last Admin: 12/14/16 11:41 Dose: Not Given Polyethylene Glycol (Miralax (For Daily Use) -) 17 gm PO BID [facility] Last Admin: 12/14/16 11:40 Dose: Not Given Simethicone (Mylicon -) 80 mg PO QID PRN Last Admin: 12/04/16 22:26 Dose: 80 mg - Objective Vital Signs: Vital Signs Temperature 97.9 F 12/13/16 18:00 Pulse Rate 66 12/13/16 18:00 Respiratory Rate 18 12/13/16 20:50 Blood Pressure 111/61 12/13/16 18:00 O2 Sat by Pulse Oximetry (%) 96 12/13/16 20:50 Constitutional: Yes: Well Nourished, No Distress, Calm Cardiovascular: Yes: Regular Rate and Rhythm Respiratory: Yes: Regular Gastrointestinal: Yes: Ascites, Hypoactive Bowel Sounds Wound/Incision: Yes: Dressing Dry and Intact Neurological: Yes: Alert, Oriented Psychiatric: Yes: Alert, Oriented Labs: CBC, BMP 12/11/16 06:00 12/11/16 18:00 Problem List - Problems (1) Chronic indwelling Pelaez catheter Assessment/Plan: -Pealez catheter Code(s): Z92.89 - PERSONAL HISTORY OF OTHER MEDICAL TREATMENT (2) Infection with multi-drug resistant microorganisms Assessment/Plan: ID on board IV abx repeat labs in AM afebrile VSS Code(s): Z16.35 - RESISTANCE TO MULTIPLE ANTIMICROBIAL DRUGS (3) Neurogenic bladder Assessment/Plan: Chronic Pelaez catheter Code(s): N31.9 - NEUROMUSCULAR DYSFUNCTION OF BLADDER, UNSPECIFIED (4) Paraplegia following spinal cord injury Code(s): G82.20 - PARAPLEGIA, UNSPECIFIED (5) UTI (urinary tract infection) with pyuria Assessment/Plan: -iv abx -ID on board -repeat labs in AM -UC positive for Pseudomonas Code(s): N39.0 - URINARY TRACT INFECTION, SITE NOT SPECIFIED (6) Constipation Assessment/Plan: -GI on board -refusing laxatives, mineral oil enema -CT abd shows fecal impaction Code(s): K59.00 - CONSTIPATION, UNSPECIFIED Qualifiers: Constipation type: unspecified constipation type Qualified Code(s): K59.00 - Constipation, unspecified; K59.00 - Constipation, unspecified (7) Anemia Assessment/Plan: -received Iron sucrose -Hematology on board -H/H stable Code(s): D64.9 - ANEMIA, UNSPECIFIED Qualifiers: Anemia type: iron deficiency Other causes of anemia: due to other specified chronic disease (8) Bilateral nephrolithiasis Assessment/Plan: -BL Ureteral stents placed this admission for BL hydronephrosis -needs percuatneous lithotripsy at a tertiary center, is refusing it Code(s): N20.0 - CALCULUS OF KIDNEY (9) Effusion of hip Assessment/Plan: -left hip Xray insignificant -MRI left hip inconclusive of osteomyelitis, effusion of left hemipelvis, etiology unknown -CT abd contrast shows large left hip and abd effusion -LLQ YA drain with cerous fluid today, was purulent at first Code(s): M25.459 - EFFUSION, UNSPECIFIED HIP Qualifiers: Laterality: left Qualified Code(s): M25.452 - Effusion, left hip; M25.452 - Effusion, left hip Assessment/Plan see problem list
[2016-12-14] MEDS: ZINC SULFATE 220 MG CAPSULE (FP) PO SCH ×2 (15:48→22:18)
[2016-12-14] MEDS: AMINO ACIDS/PROTEIN HYDROLYS 30 ML LIQUID.PKT PO SCH (18:07)
[2016-12-15] MEDS: VANCOMYCIN 1,000 MG in DEXTROSE 5%-WATER - 250 ML IVPB SCH ×3 (00:35→23:46)
[2016-12-15 06:02] LABS: MCH 24.7 pg (25.7-33.7); MCHC 31.7 g/dl (32.0-35.9); MEAN PLT VOLUME 6.7 fl (7.5-11.1); PLATELET COUNT 348 K/MM3 (134-434); RDW 24.3 % (11.9-15.9); WHITE BLOOD COUNT 8.8 K/mm3 (4.0-10.0)
[2016-12-15 06:29] LABS: ALBUMIN 1.7 g/dl (3.4-5.0); ANION GAP 8 (8-16); BILIRUBIN,TOTAL 0.2 mg/dL (0.2-1.0); CALCIUM 8.4 mg/dL (8.5-10.1); CO2 29 mmol/L (21-32); CREATININE 0.6 mg/dL (0.7-1.3); GLUCOSE,RANDOM 82 mg/dL (74-106); SGOT/AST 14 U/L (15-37); SGPT/ALT 20 U/L (12-78); TOT PROT 7.1 g/dl (6.4-8.2)
[2016-12-15 06:30] LABS: ALK PHOS 119 U/L (45-117)
[2016-12-15] MEDS: TRIPLE LUMEN FLUSH 4 ML ML IVPUSH PRN (07:01)
--- NOTE | 2016-12-15 07:44 | PN ---
Progress Note, Physician - Current Medication List Current Medications: Active Medications Acetaminophen (Tylenol -) 1,000 mg PO Q6H PRN PRN Reason: FEVER OR PAIN Last Admin: 12/02/16 18:13 Dose: 1,000 mg Amino Acids (Prosource No Carb Liquid Pkt) 30 ml PO BID@0800,1730 [facility] Last Admin: 12/14/16 18:07 Dose: 30 ml Bisacodyl (Dulcolax -) 10 mg PO BID [facility] Last Admin: 12/14/16 23:19 Dose: Not Given Diphenhydramine HCl (Benadryl Injection -) 50 mg IVPB BID PRN PRN Reason: FOR ITCHING Last Admin: 11/19/16 22:43 Dose: 50 mg Gabapentin (Neurontin -) 100 mg PO DAILY [facility] Last Admin: 12/14/16 11:41 Dose: Not Given IV Flush (Picc Line Flush) 8 ml IVPUSH PRN PRN PRN Reason: Protocol Last Admin: 11/23/16 11:00 Dose: 8 ml IV Flush (Triple Lumen Flush) 4 ml IVPUSH PRN PRN PRN Reason: Protocol Last Admin: 12/15/16 07:01 Dose: 4 ml Vancomycin HCl 1,000 mg/ (Dextrose) 250 mls @ 166.667 mls/hr IVPB BID@0030, 1230 [facility] Last Admin: 12/15/16 00:35 Dose: 166.667 mls/hr Lactulose (Cephulac (Oral Use)) 15 gm PO TID PRN PRN Reason: CONSTIPATION Mineral Oil (Mineral Oil -) 30 ml PO BID PRN PRN Reason: CONSTIPATION Last Admin: 12/14/16 22:18 Dose: 30 ml Pantoprazole Sodium (Protonix -) 40 mg PO BID [facility] Last Admin: 12/14/16 23:19 Dose: Not Given Polyethylene Glycol (Miralax (For Daily Use) -) 17 gm PO BID [facility] Last Admin: 12/14/16 23:19 Dose: Not Given Simethicone (Mylicon -) 80 mg PO QID PRN Last Admin: 12/04/16 22:26 Dose: 80 mg Zinc Sulfate (Orazinc -) 220 mg PO BID [facility] Last Admin: 12/14/16 22:18 Dose: 220 mg - Objective Vital Signs: Vital Signs Temperature 97.8 F 12/14/16 22:00 Pulse Rate 73 12/14/16 22:00 Respiratory Rate 18 12/14/16 22:00 Blood Pressure 113/68 12/14/16 22:00 O2 Sat by Pulse Oximetry (%) 97 12/14/16 21:00 Labs: CBC, BMP 12/15/16 05:50 12/15/16 05:50 Assessment/Plan - Problems (1) Chronic indwelling Pelaez catheter Assessment/Plan: -Pelaez catheter Code(s): Z92.89 - PERSONAL HISTORY OF OTHER MEDICAL TREATMENT (2) Infection with multi-drug resistant microorganisms Assessment/Plan: ID on board IV abx repeat labs in AM afebrile VSS Code(s): Z16.35 - RESISTANCE TO MULTIPLE ANTIMICROBIAL DRUGS (3) Neurogenic bladder Assessment/Plan: Chronic Pelaez catheter Code(s): N31.9 - NEUROMUSCULAR DYSFUNCTION OF BLADDER, UNSPECIFIED (4) Paraplegia following spinal cord injury Code(s): G82.20 - PARAPLEGIA, UNSPECIFIED (5) UTI (urinary tract infection) with pyuria Assessment/Plan: -iv abx -ID on board -repeat labs in AM -UC positive for Pseudomonas Code(s): N39.0 - URINARY TRACT INFECTION, SITE NOT SPECIFIED (6) Constipation Assessment/Plan: -GI on board -refusing laxatives, mineral oil enema -CT abd shows fecal impaction Code(s): K59.00 - CONSTIPATION, UNSPECIFIED Qualifiers: Constipation type: unspecified constipation type Qualified Code(s): K59.00 - Constipation, unspecified; K59.00 - Constipation, unspecified (7) Anemia Assessment/Plan: -received Iron sucrose -Hematology on board -H/H stable Code(s): D64.9 - ANEMIA, UNSPECIFIED Qualifiers: Anemia type: iron deficiency Other causes of anemia: due to other specified chronic disease (8) Bilateral nephrolithiasis Assessment/Plan: -BL Ureteral stents placed this admission for BL hydronephrosis -needs percuatneous lithotripsy at a tertiary center, is refusing it Code(s): N20.0 - CALCULUS OF KIDNEY (9) Effusion of hip Assessment/Plan: -left hip Xray insignificant -MRI left hip inconclusive of osteomyelitis, effusion of left hemipelvis, etiology unknown -CT abd contrast shows large left hip and abd effusion -LLQ YA drain with cerous fluid today, was purulent at first ID CONSULT PSOAS ABSCESS polymicrobial maría on Vanco Zosyn Panresistant pseudomonas in urine ? ALl gram positive Plan USP antibiotics via access Await final sensitivity vanco level CRP ESR Sarah LUX Code(s): M25.459 - EFFUSION, UNSPECIFIED HIP Qualifiers: Laterality: left Qualified Code(s): M25.452 - Effusion, left hip; M25.452 - Effusion, left hip
[2016-12-15 08:26] LABS: BASOPHIL 0.8 % (0-2.0); EOSINOPHIL 4.1 % (0-4.5); NEUTROPHILS 73.3 % (42.8-82.8)
[2016-12-15 08:29] LABS: HYPOCHROMIA 2+; POLYCHROMASIA 1+
[2016-12-15 08:30] LABS: ANISOCYTOSIS 3+; MACROCYTOSIS 1+; MICROCYTOSIS 2+
[2016-12-15] MEDS: AMINO ACIDS/PROTEIN HYDROLYS 30 ML LIQUID.PKT PO SCH ×2 (08:32→17:35)
[2016-12-15] MEDS: BISACODYL 5 MG TABLET.DR (FP) PO SCH (10:29)
[2016-12-15] MEDS: GABAPENTIN 100 MG CAPSULE (FP) PO SCH (10:29)
[2016-12-15] MEDS: POLYETHYLENE GLYCOL 3350 119 GM BTL PO SCH (10:29)
[2016-12-15] MEDS: PANTOPRAZOLE 40 MG TABLET (FP) PO SCH ×2 (10:32→21:53)
[2016-12-15] MEDS: MINERAL OIL 30 ML UNIT-DOSE CUP PO PRN ×2 (10:32→21:48)
[2016-12-15] MEDS: ZINC SULFATE 220 MG CAPSULE (FP) PO SCH ×2 (10:33→21:48)
[2016-12-15] MEDS ORDERED: BISACODYL 5 MG TABLET.DR (FP) PO PRN (10:47)
[2016-12-15] MEDS: METHYL SALICYLATE/MENTHOL OINT 30 GM TUBE TP SCH ×2 (11:54→21:48)
--- NOTE | 2016-12-15 14:06 | PN ---
Progress Note, Physician History of Present Illness: Awake, lethargic today Afebrile WBC WNL Aspirate c/s polymicrobial - Current Medication List Current Medications: Active Medications Acetaminophen (Tylenol -) 1,000 mg PO Q6H PRN PRN Reason: FEVER OR PAIN Last Admin: 12/02/16 18:13 Dose: 1,000 mg Amino Acids (Prosource No Carb Liquid Pkt) 30 ml PO BID@0800,1730 [facility] Last Admin: 12/15/16 08:32 Dose: 30 ml Bisacodyl (Dulcolax -) 10 mg PO BID PRN PRN Reason: CONSTIPATION Diphenhydramine HCl (Benadryl Injection -) 50 mg IVPB BID PRN PRN Reason: FOR ITCHING Last Admin: 11/19/16 22:43 Dose: 50 mg Gabapentin (Neurontin -) 100 mg PO DAILY [facility] Last Admin: 12/15/16 10:29 Dose: Not Given IV Flush (Picc Line Flush) 8 ml IVPUSH PRN PRN PRN Reason: Protocol Last Admin: 11/23/16 11:00 Dose: 8 ml IV Flush (Triple Lumen Flush) 4 ml IVPUSH PRN PRN PRN Reason: Protocol Last Admin: 12/15/16 07:01 Dose: 4 ml Vancomycin HCl 1,000 mg/ (Dextrose) 250 mls @ 166.667 mls/hr IVPB BID@0030, 1230 [facility] Last Admin: 12/15/16 12:50 Dose: 166.667 mls/hr Lactulose (Cephulac (Oral Use)) 15 gm PO TID PRN PRN Reason: CONSTIPATION Methyl Salicylate (Osmar-Moreno -) 1 applic TP BID [facility] Last Admin: 12/15/16 11:54 Dose: 1 applic Mineral Oil (Mineral Oil -) 30 ml PO BID PRN PRN Reason: CONSTIPATION Last Admin: 12/15/16 10:32 Dose: 30 ml Pantoprazole Sodium (Protonix -) 40 mg PO BID [facility] Last Admin: 12/15/16 10:32 Dose: 40 mg Simethicone (Mylicon -) 80 mg PO QID PRN Last Admin: 12/04/16 22:26 Dose: 80 mg Zinc Sulfate (Orazinc -) 220 mg PO BID [facility] Last Admin: 12/15/16 10:33 Dose: 220 mg - Objective Vital Signs: Vital Signs Temperature 97 F L 12/15/16 13:37 Pulse Rate 73 12/14/16 22:00 Respiratory Rate 18 12/14/16 22:00 Blood Pressure 113/68 12/14/16 22:00 O2 Sat by Pulse Oximetry (%) 97 12/15/16 09:00 Constitutional: Yes: No Distress, Cachectic Eyes: Yes: Conjunctiva Clear Cardiovascular: Yes: Regular Rate and Rhythm, S1, S2 Respiratory: Yes: Diminished Gastrointestinal: Yes: Normal Bowel Sounds, Soft. No: Tenderness Extremities: Yes: Other (Drain in place L flank serosanguinous fluid) Labs: CBC, BMP 12/15/16 05:50 12/15/16 05:50 Assessment/Plan Obstructive uropathy s/p stents Hx MDR urinary tract pathogens Low grade temp/ leukocytosis Paraplegia Sacral decubitus Large fluid collection L hemipelvis ? etiology S/P drainage c/s mixed organisms including MRSA Will continue vancomycin D/C zosyn
[2016-12-16] MEDS: AMINO ACIDS/PROTEIN HYDROLYS 30 ML LIQUID.PKT PO SCH ×2 (08:49→19:03)
--- NOTE | 2016-12-16 10:13 | PN ---
Progress Note, Physician Chief Complaint: Nephrolithiasis, decubitus ulcer, constipation History of Present Illness: NAD alert and oriented has constipation with intermittent diarrhea secondary to autonomic dysreflexia. seen by ID, IV abx, Zosyn discontinue, still on Vnaco WBC slightly elevated today low grade temps last evening UC growing Pseudomonas Left hip xray insignificant MRI inconclusive of osteomyelitis, shows large fluid collection in left hemipelvis with unknown etiology CT abd/pelvis shows large amount of fluid left hip and fecal impaction,Refuses laxatives, only wants mineral enemas, received 1 yesterday Resistant to making a decision about either going home or to tertiary [facility] for percutaneous lithotripsy LLQ YA draining minimally, Growing MRSA and mixed organisms - Current Medication List Current Medications: Active Medications Acetaminophen (Tylenol -) 1,000 mg PO Q6H PRN PRN Reason: FEVER OR PAIN Last Admin: 12/02/16 18:13 Dose: 1,000 mg Amino Acids (Prosource No Carb Liquid Pkt) 30 ml PO BID@0800,1730 [facility] Last Admin: 12/16/16 08:49 Dose: Not Given Bisacodyl (Dulcolax -) 10 mg PO BID PRN PRN Reason: CONSTIPATION Diphenhydramine HCl (Benadryl Injection -) 50 mg IVPB BID PRN PRN Reason: FOR ITCHING Last Admin: 11/19/16 22:43 Dose: 50 mg Gabapentin (Neurontin -) 100 mg PO DAILY [facility] Last Admin: 12/15/16 10:29 Dose: Not Given IV Flush (Picc Line Flush) 8 ml IVPUSH PRN PRN PRN Reason: Protocol Last Admin: 11/23/16 11:00 Dose: 8 ml IV Flush (Triple Lumen Flush) 4 ml IVPUSH PRN PRN PRN Reason: Protocol Last Admin: 12/15/16 07:01 Dose: 4 ml Vancomycin HCl 1,000 mg/ (Dextrose) 250 mls @ 166.667 mls/hr IVPB BID@0030, 1230 [facility] Last Admin: 12/15/16 23:46 Dose: 166.667 mls/hr Lactulose (Cephulac (Oral Use)) 15 gm PO TID PRN PRN Reason: CONSTIPATION Methyl Salicylate (Osmar-Moreno -) 1 applic TP BID [facility] Last Admin: 12/15/16 21:48 Dose: 1 applic Mineral Oil (Mineral Oil -) 30 ml PO BID PRN PRN Reason: CONSTIPATION Last Admin: 12/15/16 21:48 Dose: 30 ml Pantoprazole Sodium (Protonix -) 40 mg PO BID [facility] Last Admin: 12/15/16 21:53 Dose: Not Given Simethicone (Mylicon -) 80 mg PO QID PRN Last Admin: 12/04/16 22:26 Dose: 80 mg Zinc Sulfate (Orazinc -) 220 mg PO BID [facility] Last Admin: 12/15/16 21:48 Dose: 220 mg - Objective Vital Signs: Vital Signs Temperature 96.9 F L 12/16/16 09:35 Pulse Rate 81 12/16/16 09:35 Respiratory Rate 20 12/16/16 09:35 Blood Pressure 90/67 12/16/16 09:35 O2 Sat by Pulse Oximetry (%) 96 12/15/16 20:42 Labs: CBC, BMP 12/15/16 05:50 12/15/16 05:50 Problem List - Problems (1) Chronic indwelling Pelaez catheter Assessment/Plan: -Pelaez catheter Code(s): Z92.89 - PERSONAL HISTORY OF OTHER MEDICAL TREATMENT (2) Infection with multi-drug resistant microorganisms Assessment/Plan: ID on board IV abx repeat labs in AM afebrile VSS Code(s): Z16.35 - RESISTANCE TO MULTIPLE ANTIMICROBIAL DRUGS (3) Neurogenic bladder Assessment/Plan: Chronic Pelaez catheter Code(s): N31.9 - NEUROMUSCULAR DYSFUNCTION OF BLADDER, UNSPECIFIED (4) Paraplegia following spinal cord injury Code(s): G82.20 - PARAPLEGIA, UNSPECIFIED (5) UTI (urinary tract infection) with pyuria Assessment/Plan: -iv abx -ID on board -repeat labs in AM -UC positive for Pseudomonas Code(s): N39.0 - URINARY TRACT INFECTION, SITE NOT SPECIFIED (6) Constipation Assessment/Plan: -GI on board -refusing laxatives, mineral oil enema -CT abd shows fecal impaction Code(s): K59.00 - CONSTIPATION, UNSPECIFIED Qualifiers: Constipation type: unspecified constipation type Qualified Code(s): K59.00 - Constipation, unspecified; K59.00 - Constipation, unspecified (7) Anemia Assessment/Plan: -received Iron sucrose -Hematology on board -H/H stable Code(s): D64.9 - ANEMIA, UNSPECIFIED Qualifiers: Anemia type: iron deficiency Other causes of anemia: due to other specified chronic disease (8) Bilateral nephrolithiasis Assessment/Plan: -BL Ureteral stents placed this admission for BL hydronephrosis -needs percuatneous lithotripsy at a tertiary center, is refusing it Code(s): N20.0 - CALCULUS OF KIDNEY (9) Effusion of hip Assessment/Plan: -left hip Xray insignificant -MRI left hip inconclusive of osteomyelitis, effusion of left hemipelvis, etiology unknown -CT abd contrast shows large left hip and abd effusion -LLQ YA draining minimally Code(s): M25.459 - EFFUSION, UNSPECIFIED HIP Qualifiers: Laterality: left Qualified Code(s): M25.452 - Effusion, left hip; M25.452 - Effusion, left hip Assessment/Plan -[facility] as per ID -repeat imaging of abdomen? drain still with unknown etiology [facility]
[2016-12-16] MEDS: METHYL SALICYLATE/MENTHOL OINT 30 GM TUBE TP SCH ×2 (10:30→21:13)
[2016-12-16] MEDS: PANTOPRAZOLE 40 MG TABLET (FP) PO SCH ×2 (10:30→21:12)
[2016-12-16] MEDS: ZINC SULFATE 220 MG CAPSULE (FP) PO SCH ×2 (10:30→21:12)
[2016-12-16] MEDS: VANCOMYCIN 1,000 MG in DEXTROSE 5%-WATER - 250 ML IVPB SCH (11:53)
[2016-12-16] MEDS: GABAPENTIN 100 MG CAPSULE (FP) PO SCH (11:53)
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
[2016-12-16] MEDS: SENNOSIDES 8.6MG TABLET (FP) PO SCH (21:12)
[2016-12-17] MEDS: VANCOMYCIN 1,000 MG in DEXTROSE 5%-WATER - 250 ML IVPB SCH ×2 (01:22→11:51)
[2016-12-17 07:15] LABS: BASOPHIL 0.8 % (0-2.0); EOSINOPHIL 3.7 % (0-4.5); MCH 24.7 pg (25.7-33.7); MCHC 31.5 g/dl (32.0-35.9); MEAN CELL VOLUME 78.7 fl (80-96); MEAN PLT VOLUME 6.7 fl (7.5-11.1); NEUTROPHILS 71.5 % (42.8-82.8); PLATELET COUNT 298 K/MM3 (134-434); RDW 25.7 % (11.9-15.9); WHITE BLOOD COUNT 9.3 K/mm3 (4.0-10.0)
[2016-12-17 07:35] LABS: ALBUMIN 1.9 g/dl (3.4-5.0); ANION GAP 4 (8-16); BILIRUBIN,TOTAL 0.2 mg/dL (0.2-1.0); CALCIUM 8.5 mg/dL (8.5-10.1); CO2 31 mmol/L (21-32); CREATININE 0.7 mg/dL (0.7-1.3); GLUCOSE,RANDOM 81 mg/dL (74-106); SGOT/AST 14 U/L (15-37); SGPT/ALT 20 U/L (12-78); TOT PROT 7.4 g/dl (6.4-8.2)
[2016-12-17 07:36] LABS: ALK PHOS 129 U/L (45-117)
[2016-12-17] MEDS: GABAPENTIN 100 MG CAPSULE (FP) PO SCH (11:50)
[2016-12-17] MEDS: AMINO ACIDS/PROTEIN HYDROLYS 30 ML LIQUID.PKT PO SCH ×2 (11:50→17:55)
[2016-12-17] MEDS: PANTOPRAZOLE 40 MG TABLET (FP) PO SCH ×2 (11:51→22:08)
[2016-12-17] MEDS: METHYL SALICYLATE/MENTHOL OINT 30 GM TUBE TP SCH ×2 (11:51→22:08)
[2016-12-17] MEDS: ZINC SULFATE 220 MG CAPSULE (FP) PO SCH ×2 (11:52→22:08)
--- NOTE | 2016-12-17 12:49 | PN ---
Progress Note, Physician History of Present Illness: No complaints Afebrile WBC WNL Tolerating vancomycin - Current Medication List Current Medications: Active Medications Acetaminophen (Tylenol -) 1,000 mg PO Q6H PRN PRN Reason: FEVER OR PAIN Last Admin: 12/02/16 18:13 Dose: 1,000 mg Amino Acids (Prosource No Carb Liquid Pkt) 30 ml PO BID@0800,1730 [facility] Last Admin: 12/17/16 11:50 Dose: Not Given Diphenhydramine HCl (Benadryl Injection -) 50 mg IVPB BID PRN PRN Reason: FOR ITCHING Last Admin: 11/19/16 22:43 Dose: 50 mg Gabapentin (Neurontin -) 100 mg PO DAILY [facility] Last Admin: 12/17/16 11:50 Dose: Not Given IV Flush (Picc Line Flush) 8 ml IVPUSH PRN PRN PRN Reason: Protocol Last Admin: 11/23/16 11:00 Dose: 8 ml IV Flush (Triple Lumen Flush) 4 ml IVPUSH PRN PRN PRN Reason: Protocol Last Admin: 12/15/16 07:01 Dose: 4 ml Vancomycin HCl 1,000 mg/ (Dextrose) 250 mls @ 166.667 mls/hr IVPB BID@0030, 1230 [facility] Last Admin: 12/17/16 11:51 Dose: 166.667 mls/hr Methyl Salicylate (Osmar-Moreno -) 1 applic TP BID [facility] Last Admin: 12/17/16 11:51 Dose: 1 applic Mineral Oil (Mineral Oil -) 30 ml PO BID PRN PRN Reason: CONSTIPATION Last Admin: 12/15/16 21:48 Dose: 30 ml Pantoprazole Sodium (Protonix -) 40 mg PO BID [facility] Last Admin: 12/17/16 11:51 Dose: 40 mg Senna (Senna -) 1 tab PO HS [facility] Last Admin: 12/16/16 21:12 Dose: Not Given Simethicone (Mylicon -) 80 mg PO QID PRN Last Admin: 12/04/16 22:26 Dose: 80 mg Zinc Sulfate (Orazinc -) 220 mg PO BID [facility] Last Admin: 12/17/16 11:52 Dose: 220 mg - Objective Vital Signs: Vital Signs Temperature 98.1 F 12/16/16 19:08 Pulse Rate 73 12/16/16 19:08 Respiratory Rate 20 12/16/16 21:00 Blood Pressure 119/67 12/16/16 19:08 O2 Sat by Pulse Oximetry (%) 98 12/16/16 21:00 Constitutional: Yes: No Distress Eyes: Yes: Conjunctiva Clear Cardiovascular: Yes: Regular Rate and Rhythm, S1, S2 Respiratory: Yes: Diminished Gastrointestinal: Yes: Normal Bowel Sounds, Soft. No: Tenderness Extremities: Yes: Other (decreased L flank swelling/ erythema) Labs: CBC, BMP 12/17/16 06:00 12/17/16 06:00 Assessment/Plan Obstructive uropathy s/p stents Hx MDR urinary tract pathogens Low grade temp/ leukocytosis Paraplegia Sacral decubitus Large fluid collection L hemipelvis ? etiology S/P drainage c/s mixed organisms including MRSA Will continue vancomycin. Check level Will need follow up CT at some point to assess fluid collection
--- NOTE | 2016-12-17 15:00 | PN ---
Progress Note, Physician Chief Complaint: Nephrolithiasis, decubitus ulcer, constipation History of Present Illness: NAD, in bed alert and oriented on IV Vancomycin Peritoneal fluid growing MRSA, E. feacalis- sensitive to Vanco, Linezolid and daptomycin Patient is refusing to go to rehab for daily IV abx He lives at home with his mother who is unable to do IV abx daily. Linezolid PO for 2 weeks could be considered, would discuss with ID His WBC is stable Peritoneal fluid creatinine is 3.21, there is likely urine component in it. Work up needed like cystogram, inulid? would discuss with Urology and Radiology Stool impaction, needs stimulants, refuses everything except mineral oil enemas. - Current Medication List Current Medications: Active Medications Acetaminophen (Tylenol -) 1,000 mg PO Q6H PRN PRN Reason: FEVER OR PAIN Last Admin: 12/02/16 18:13 Dose: 1,000 mg Amino Acids (Prosource No Carb Liquid Pkt) 30 ml PO BID@0800,1730 [facility] Last Admin: 12/17/16 11:50 Dose: Not Given Diphenhydramine HCl (Benadryl Injection -) 50 mg IVPB BID PRN PRN Reason: FOR ITCHING Last Admin: 11/19/16 22:43 Dose: 50 mg Gabapentin (Neurontin -) 100 mg PO DAILY [facility] Last Admin: 12/17/16 11:50 Dose: Not Given IV Flush (Picc Line Flush) 8 ml IVPUSH PRN PRN PRN Reason: Protocol Last Admin: 11/23/16 11:00 Dose: 8 ml IV Flush (Triple Lumen Flush) 4 ml IVPUSH PRN PRN PRN Reason: Protocol Last Admin: 12/15/16 07:01 Dose: 4 ml Vancomycin HCl 1,000 mg/ (Dextrose) 250 mls @ 166.667 mls/hr IVPB BID@0030, 1230 [facility] Last Admin: 12/17/16 11:51 Dose: 166.667 mls/hr Methyl Salicylate (Osmar-Moreno -) 1 applic TP BID [facility] Last Admin: 12/17/16 11:51 Dose: 1 applic Mineral Oil (Mineral Oil -) 30 ml PO BID PRN PRN Reason: CONSTIPATION Last Admin: 12/15/16 21:48 Dose: 30 ml Pantoprazole Sodium (Protonix -) 40 mg PO BID [facility] Last Admin: 12/17/16 11:51 Dose: 40 mg Senna (Senna -) 1 tab PO HS [facility] Last Admin: 12/16/16 21:12 Dose: Not Given Simethicone (Mylicon -) 80 mg PO QID PRN Last Admin: 12/04/16 22:26 Dose: 80 mg Zinc Sulfate (Orazinc -) 220 mg PO BID [facility] Last Admin: 12/17/16 11:52 Dose: 220 mg - Objective Vital Signs: Vital Signs Temperature 96.6 F L 12/17/16 13:55 Pulse Rate 76 12/17/16 13:55 Respiratory Rate 20 12/17/16 13:55 Blood Pressure 115/67 12/17/16 13:55 O2 Sat by Pulse Oximetry (%) 98 12/16/16 21:00 Constitutional: Yes: Well Nourished, No Distress, Calm Cardiovascular: Yes: Regular Rate and Rhythm Respiratory: Yes: Regular Gastrointestinal: Yes: Ascites, Hypoactive Bowel Sounds Edema: No Peripheral Pulses WNL: Yes Wound/Incision: Yes: Dressing Dry and Intact, Other (Draining) Neurological: Yes: Alert, Oriented Psychiatric: Yes: Alert, Oriented Labs: CBC, BMP 12/17/16 06:00 12/17/16 06:00 Problem List - Problems (1) Chronic indwelling Pelaez catheter Assessment/Plan: -Pelaez catheter -needs a suprapubic catheter but refuses -seen by Urology Code(s): Z92.89 - PERSONAL HISTORY OF OTHER MEDICAL TREATMENT (2) Infection with multi-drug resistant microorganisms Assessment/Plan: ID on board IV abx repeat labs in AM afebrile VSS Microbiology 12/11/16 17:00 Peritoneal Fluid Gram Stain - Final 12/11/16 17:00 Peritoneal Fluid Body Fluid Culture - Final Mr S Aureus Enterococcus Faecalis Mr S Aureus#2 Code(s): Z16.35 - RESISTANCE TO MULTIPLE ANTIMICROBIAL DRUGS (3) Neurogenic bladder Assessment/Plan: Chronic Pelaez catheter -needs a suprapubic catheter but refuses -seen by Urology Code(s): N31.9 - NEUROMUSCULAR DYSFUNCTION OF BLADDER, UNSPECIFIED (4) Paraplegia following spinal cord injury Code(s): G82.20 - PARAPLEGIA, UNSPECIFIED (5) UTI (urinary tract infection) with pyuria Assessment/Plan: -iv abx -ID on board -repeat labs in AM -UC positive for Pseudomonas Code(s): N39.0 - URINARY TRACT INFECTION, SITE NOT SPECIFIED (6) Constipation Assessment/Plan: -GI on board -refusing stimulants except mineral oil enema -CT abd shows fecal impaction Code(s): K59.00 - CONSTIPATION, UNSPECIFIED Qualifiers: Constipation type: unspecified constipation type Qualified Code(s): K59.00 - Constipation, unspecified; K59.00 - Constipation, unspecified (7) Anemia Assessment/Plan: -Venofer -Hematology on board -H/H stable Code(s): D64.9 - ANEMIA, UNSPECIFIED Qualifiers: Anemia type: iron deficiency Other causes of anemia: due to other specified chronic disease (8) Bilateral nephrolithiasis Assessment/Plan: -BL Ureteral stents placed this admission for BL hydronephrosis -needs percuatneous lithotripsy at a tertiary center, is refusing it Code(s): N20.0 - CALCULUS OF KIDNEY (9) Effusion of hip Assessment/Plan: -left hip Xray insignificant -MRI left hip inconclusive of osteomyelitis, effusion of left hemipelvis, etiology unknown -CT abd contrast shows large left hip and abd effusion -LLQ YA draining minimally -Fluid collected has creatinin of 3.21 -needs workup to explore whether there is a leak from renal source post cystoscopy or has it healed?, suggested cystogram/ MRI with inulin contrast? Code(s): M25.459 - EFFUSION, UNSPECIFIED HIP Qualifiers: Laterality: left Qualified Code(s): M25.452 - Effusion, left hip; M25.452 - Effusion, left hip Assessment/Plan Case discussed with Dr Farias, awaiting call back from urology
[2016-12-17] MEDS: IRON SUCROSE INJECTION 200 MG in SODIUM CHLORIDE 100 ML IVPB SCH (17:55)
[2016-12-17] MEDS ORDERED: PT OWN MED DRAWER 7, Y5N ONE (21:50)
[2016-12-17] MEDS: SENNOSIDES 8.6MG TABLET (FP) PO SCH (22:08)
[2016-12-18] MEDS: METHYL SALICYLATE/MENTHOL OINT 30 GM TUBE TP SCH ×3 (00:27→22:34)
[2016-12-18] MEDS ORDERED: PT OWN MED DRAWER 7, Y5N ONE (00:52)
[2016-12-18] MEDS: VANCOMYCIN 1,000 MG in DEXTROSE 5%-WATER - 250 ML IVPB SCH ×2 (00:54→14:15)
--- NOTE | 2016-12-18 10:21 | PN ---
Progress Note, Physician Chief Complaint: Nephrolithiasis, decubitus ulcer, constipation History of Present Illness: NAD, in bed alert and oriented on IV Vancomycin Peritoneal fluid growing MRSA, E. feacalis- sensitive to Vanco, Linezolid and daptomycin Patient is refusing to go to rehab for daily IV abx He lives at home with his mother who is unable to do IV abx daily. Linezolid PO for 2 weeks could be considered, would discuss with ID His WBC is stable Peritoneal fluid creatinine is 3.21, there is likely urine component in it. Work up needed like cystogram, inulid? would discuss with Urology and Radiology Stool impaction, needs stimulants, refuses everything except mineral oil enemas. - Current Medication List Current Medications: Active Medications Acetaminophen (Tylenol -) 1,000 mg PO Q6H PRN PRN Reason: FEVER OR PAIN Last Admin: 12/02/16 18:13 Dose: 1,000 mg Amino Acids (Prosource No Carb Liquid Pkt) 30 ml PO BID@0800,1730 [facility] Last Admin: 12/17/16 17:55 Dose: Not Given Diphenhydramine HCl (Benadryl Injection -) 50 mg IVPB BID PRN PRN Reason: FOR ITCHING Last Admin: 11/19/16 22:43 Dose: 50 mg Gabapentin (Neurontin -) 100 mg PO DAILY [facility] Last Admin: 12/17/16 11:50 Dose: Not Given IV Flush (Picc Line Flush) 8 ml IVPUSH PRN PRN PRN Reason: Protocol Last Admin: 11/23/16 11:00 Dose: 8 ml IV Flush (Triple Lumen Flush) 4 ml IVPUSH PRN PRN PRN Reason: Protocol Last Admin: 12/15/16 07:01 Dose: 4 ml Vancomycin HCl 1,000 mg/ (Dextrose) 250 mls @ 166.667 mls/hr IVPB BID@0030, 1230 [facility] Last Admin: 12/18/16 00:54 Dose: 166.667 mls/hr Iron Sucrose 200 mg/ Sodium (Chloride) 110 mls @ 220 mls/hr IVPB DAILY [facility] Stop: 12/19/16 10:29 Last Admin: 12/17/16 17:55 Dose: 220 mls/hr Methyl Salicylate (Osmar-Moreno -) 1 applic TP BID [facility] Last Admin: 12/18/16 00:27 Dose: Not Given Mineral Oil (Mineral Oil -) 30 ml PO BID PRN PRN Reason: CONSTIPATION Last Admin: 12/15/16 21:48 Dose: 30 ml Pantoprazole Sodium (Protonix -) 40 mg PO BID [facility] Last Admin: 12/17/16 22:08 Dose: 40 mg Senna (Senna -) 1 tab PO HS [facility] Last Admin: 12/17/16 22:08 Dose: Not Given Simethicone (Mylicon -) 80 mg PO QID PRN Last Admin: 12/04/16 22:26 Dose: 80 mg Zinc Sulfate (Orazinc -) 220 mg PO BID [facility] Last Admin: 12/17/16 22:08 Dose: 220 mg - Objective Vital Signs: Vital Signs Temperature 98.1 F 12/17/16 22:00 Pulse Rate 71 12/17/16 22:00 Respiratory Rate 20 12/17/16 22:00 Blood Pressure 113/73 12/17/16 22:00 O2 Sat by Pulse Oximetry (%) 95 12/17/16 21:00 Constitutional: Yes: Well Nourished, No Distress, Calm Cardiovascular: Yes: Regular Rate and Rhythm Respiratory: Yes: Regular Gastrointestinal: Yes: Ascites, Hypoactive Bowel Sounds Edema: No Peripheral Pulses WNL: Yes Integumentary: Yes: Pressure Ulcer, Other (multiple wounds, LLQ drain, draining minimally) Wound/Incision: Yes: Dressing Dry and Intact Neurological: Yes: Alert, Oriented Psychiatric: Yes: Alert, Oriented Labs: CBC, BMP 12/17/16 06:00 12/17/16 06:00 Problem List - Problems (1) Chronic indwelling Pelaez catheter Assessment/Plan: -Pelaez catheter -needs a suprapubic catheter but refuses -seen by Urology Code(s): Z92.89 - PERSONAL HISTORY OF OTHER MEDICAL TREATMENT (2) Infection with multi-drug resistant microorganisms Assessment/Plan: ID on board IV abx repeat labs in AM afebrile VSS Microbiology 12/11/16 17:00 Peritoneal Fluid Gram Stain - Final 12/11/16 17:00 Peritoneal Fluid Body Fluid Culture - Final Mr S Aureus Enterococcus Faecalis Mr S Aureus#2 Code(s): Z16.35 - RESISTANCE TO MULTIPLE ANTIMICROBIAL DRUGS (3) Neurogenic bladder Assessment/Plan: Chronic Pelaez catheter -needs a suprapubic catheter but refuses -seen by Urology Code(s): N31.9 - NEUROMUSCULAR DYSFUNCTION OF BLADDER, UNSPECIFIED (4) Paraplegia following spinal cord injury Code(s): G82.20 - PARAPLEGIA, UNSPECIFIED (5) UTI (urinary tract infection) with pyuria Assessment/Plan: -iv abx -ID on board -repeat labs in AM -UC positive for Pseudomonas Code(s): N39.0 - URINARY TRACT INFECTION, SITE NOT SPECIFIED (6) Constipation Assessment/Plan: -GI on board -refusing stimulants except mineral oil enema -CT abd shows fecal impaction Code(s): K59.00 - CONSTIPATION, UNSPECIFIED Qualifiers: Constipation type: unspecified constipation type Qualified Code(s): K59.00 - Constipation, unspecified; K59.00 - Constipation, unspecified (7) Anemia Assessment/Plan: -Venofer -Hematology on board -H/H stable Code(s): D64.9 - ANEMIA, UNSPECIFIED Qualifiers: Anemia type: iron deficiency Other causes of anemia: due to other specified chronic disease (8) Bilateral nephrolithiasis Assessment/Plan: -BL Ureteral stents placed this admission for BL hydronephrosis -needs percuatneous lithotripsy at a tertiary center, is refusing it Code(s): N20.0 - CALCULUS OF KIDNEY (9) Effusion of hip Assessment/Plan: -left hip Xray insignificant -MRI left hip inconclusive of osteomyelitis, effusion of left hemipelvis, etiology unknown -CT abd contrast shows large left hip and abd effusion -LLQ YA draining minimally -Fluid collected has creatinin of 3.21 -needs workup to explore whether there is a leak from renal source post cystoscopy or has it healed?, suggested cystogram/ MRI with inulin contrast? Code(s): M25.459 - EFFUSION, UNSPECIFIED HIP Qualifiers: Laterality: left Qualified Code(s): M25.452 - Effusion, left hip; M25.452 - Effusion, left hip Assessment/Plan Case discussed with Dr Farias, awaiting call back from urology
[2016-12-18] MEDS: GABAPENTIN 100 MG CAPSULE (FP) PO SCH (11:03)
[2016-12-18] MEDS: AMINO ACIDS/PROTEIN HYDROLYS 30 ML LIQUID.PKT PO SCH ×2 (11:03→18:35)
[2016-12-18] MEDS: IRON SUCROSE INJECTION 200 MG in SODIUM CHLORIDE 100 ML IVPB SCH (11:19)
[2016-12-18] MEDS: PANTOPRAZOLE 40 MG TABLET (FP) PO SCH ×2 (11:20→22:34)
[2016-12-18] MEDS: ZINC SULFATE 220 MG CAPSULE (FP) PO SCH ×2 (11:20→22:34)
--- NOTE | 2016-12-18 14:48 | PN ---
Progress Note, Physician History of Present Illness: Awake, alert No complaints Afebrile WBC WNL vancomycin trough level high - Current Medication List Current Medications: Active Medications Acetaminophen (Tylenol -) 1,000 mg PO Q6H PRN PRN Reason: FEVER OR PAIN Last Admin: 12/02/16 18:13 Dose: 1,000 mg Amino Acids (Prosource No Carb Liquid Pkt) 30 ml PO BID@0800,1730 [facility] Last Admin: 12/18/16 11:03 Dose: Not Given Diphenhydramine HCl (Benadryl Injection -) 50 mg IVPB BID PRN PRN Reason: FOR ITCHING Last Admin: 11/19/16 22:43 Dose: 50 mg Gabapentin (Neurontin -) 100 mg PO DAILY [facility] Last Admin: 12/18/16 11:03 Dose: Not Given IV Flush (Picc Line Flush) 8 ml IVPUSH PRN PRN PRN Reason: Protocol Last Admin: 11/23/16 11:00 Dose: 8 ml IV Flush (Triple Lumen Flush) 4 ml IVPUSH PRN PRN PRN Reason: Protocol Last Admin: 12/15/16 07:01 Dose: 4 ml Iron Sucrose 200 mg/ Sodium (Chloride) 110 mls @ 220 mls/hr IVPB DAILY [facility] Stop: 12/19/16 10:29 Last Admin: 12/18/16 11:19 Dose: 220 mls/hr Methyl Salicylate (Osmar-Moreno -) 1 applic TP BID [facility] Last Admin: 12/18/16 11:03 Dose: Not Given Mineral Oil (Mineral Oil -) 30 ml PO BID PRN PRN Reason: CONSTIPATION Last Admin: 12/15/16 21:48 Dose: 30 ml Pantoprazole Sodium (Protonix -) 40 mg PO BID [facility] Last Admin: 12/18/16 11:20 Dose: 40 mg Senna (Senna -) 1 tab PO HS [facility] Last Admin: 12/17/16 22:08 Dose: Not Given Simethicone (Mylicon -) 80 mg PO QID PRN Last Admin: 12/04/16 22:26 Dose: 80 mg Zinc Sulfate (Orazinc -) 220 mg PO BID [facility] Last Admin: 12/18/16 11:20 Dose: 220 mg - Objective Vital Signs: Vital Signs Temperature 97.2 F L 12/18/16 14:07 Pulse Rate 88 12/18/16 14:07 Respiratory Rate 20 12/18/16 14:07 Blood Pressure 105/65 12/18/16 14:07 O2 Sat by Pulse Oximetry (%) 95 12/18/16 09:00 Constitutional: Yes: No Distress, Cachectic Cardiovascular: Yes: Regular Rate and Rhythm, S1, S2 Respiratory: Yes: CTA Bilaterally Gastrointestinal: Yes: Normal Bowel Sounds, Soft, Other (distended). No: Tenderness Labs: CBC, BMP 12/17/16 06:00 12/17/16 06:00 Assessment/Plan Obstructive uropathy s/p stents Hx MDR urinary tract pathogens Low grade temp/ leukocytosis Paraplegia Sacral decubitus Large fluid collection L hemipelvis ? etiology S/P drainage c/s mixed organisms including MRSA Hold vancomycin. Check level Will need follow up CT at some point to assess fluid collection
[2016-12-18] MEDS: SENNOSIDES 8.6MG TABLET (FP) PO SCH (22:34)
[2016-12-19 08:13] LABS: BASOPHIL 0.8 % (0-2.0); EOSINOPHIL 4.2 % (0-4.5); MCH 25.1 pg (25.7-33.7); MCHC 31.5 g/dl (32.0-35.9); MEAN CELL VOLUME 79.8 fl (80-96); MEAN PLT VOLUME 7.3 fl (7.5-11.1); NEUTROPHILS 66.9 % (42.8-82.8); PLATELET COUNT 249 K/MM3 (134-434); RDW 27.6 % (11.9-15.9); WHITE BLOOD COUNT 7.3 K/mm3 (4.0-10.0)
[2016-12-19] MEDS: AMINO ACIDS/PROTEIN HYDROLYS 30 ML LIQUID.PKT PO SCH ×2 (08:15→16:53)
[2016-12-19 08:22] LABS: ANION GAP 8 (8-16); BILIRUBIN,TOTAL 0.3 mg/dL (0.2-1.0); CALCIUM 8.1 mg/dL (8.5-10.1); CO2 30 mmol/L (21-32); CREATININE 0.8 mg/dL (0.7-1.3); GLUCOSE,RANDOM 71 mg/dL (74-106); SGOT/AST 12 U/L (15-37); SGPT/ALT 17 U/L (12-78); TOT PROT 7.3 g/dl (6.4-8.2)
[2016-12-19 08:23] LABS: ALK PHOS 123 U/L (45-117)
--- NOTE | 2016-12-19 10:18 | PN ---
Progress Note, Physician Chief Complaint: Nephrolithiasis, decubitus ulcer, constipation History of Present Illness: NAD, in bed alert and oriented on IV Vancomycin Peritoneal fluid growing MRSA, E. feacalis- sensitive to Vanco, Linezolid and daptomycin Patient is refusing to go to rehab for daily IV abx He lives at home with his mother who is unable to do IV abx daily. Linezolid PO for 2 weeks could be considered, would discuss with ID His WBC is stable Peritoneal fluid creatinine is 3.21, there is likely urine component in it. Work up needed like cystogram, inulid? would discuss with Urology and Radiology Stool impaction, needs stimulants, refuses everything except mineral oil enemas. - Current Medication List Current Medications: Active Medications Acetaminophen (Tylenol -) 1,000 mg PO Q6H PRN PRN Reason: FEVER OR PAIN Last Admin: 12/02/16 18:13 Dose: 1,000 mg Amino Acids (Prosource No Carb Liquid Pkt) 30 ml PO BID@0800,1730 [facility] Last Admin: 12/19/16 08:15 Dose: Not Given Diphenhydramine HCl (Benadryl Injection -) 50 mg IVPB BID PRN PRN Reason: FOR ITCHING Last Admin: 11/19/16 22:43 Dose: 50 mg Gabapentin (Neurontin -) 100 mg PO DAILY [facility] Last Admin: 12/18/16 11:03 Dose: Not Given IV Flush (Picc Line Flush) 8 ml IVPUSH PRN PRN PRN Reason: Protocol Last Admin: 11/23/16 11:00 Dose: 8 ml IV Flush (Triple Lumen Flush) 4 ml IVPUSH PRN PRN PRN Reason: Protocol Last Admin: 12/15/16 07:01 Dose: 4 ml Iron Sucrose 200 mg/ Sodium (Chloride) 110 mls @ 220 mls/hr IVPB DAILY [facility] Stop: 12/19/16 10:29 Last Admin: 12/18/16 11:19 Dose: 220 mls/hr Methyl Salicylate (Osmar-Moreno -) 1 applic TP BID [facility] Last Admin: 12/18/16 22:34 Dose: Not Given Mineral Oil (Mineral Oil -) 30 ml PO BID PRN PRN Reason: CONSTIPATION Last Admin: 12/15/16 21:48 Dose: 30 ml Pantoprazole Sodium (Protonix -) 40 mg PO BID [facility] Last Admin: 12/18/16 22:34 Dose: 40 mg Senna (Senna -) 1 tab PO HS [facility] Last Admin: 12/18/16 22:34 Dose: Not Given Simethicone (Mylicon -) 80 mg PO QID PRN Last Admin: 12/04/16 22:26 Dose: 80 mg Zinc Sulfate (Orazinc -) 220 mg PO BID [facility] Last Admin: 12/18/16 22:34 Dose: 220 mg - Objective Vital Signs: Vital Signs Temperature 97.6 F 12/19/16 06:00 Pulse Rate 72 12/19/16 06:00 Respiratory Rate 20 12/19/16 06:00 Blood Pressure 98/58 12/19/16 06:00 O2 Sat by Pulse Oximetry (%) 95 12/18/16 21:00 Constitutional: Yes: Well Nourished, No Distress, Calm Cardiovascular: Yes: Regular Rate and Rhythm Respiratory: Yes: Regular Gastrointestinal: Yes: Ascites, Hypoactive Bowel Sounds Extremities: Yes: WNL Edema: No Peripheral Pulses WNL: Yes Neurological: Yes: Alert, Oriented Psychiatric: Yes: Alert, Oriented Labs: CBC, BMP 12/19/16 06:30 12/19/16 06:30 Problem List - Problems (1) Chronic indwelling Pelaez catheter Assessment/Plan: -Pelaez catheter -needs a suprapubic catheter but refuses -seen by Urology Code(s): Z92.89 - PERSONAL HISTORY OF OTHER MEDICAL TREATMENT (2) Infection with multi-drug resistant microorganisms Assessment/Plan: ID on board IV abx repeat labs in AM afebrile VSS Microbiology 12/11/16 17:00 Peritoneal Fluid Gram Stain - Final 12/11/16 17:00 Peritoneal Fluid Body Fluid Culture - Final Mr S Aureus Enterococcus Faecalis Mr S Aureus#2 Code(s): Z16.35 - RESISTANCE TO MULTIPLE ANTIMICROBIAL DRUGS (3) Neurogenic bladder Assessment/Plan: Chronic Pelaez catheter -needs a suprapubic catheter but refuses -seen by Urology Code(s): N31.9 - NEUROMUSCULAR DYSFUNCTION OF BLADDER, UNSPECIFIED (4) Paraplegia following spinal cord injury Code(s): G82.20 - PARAPLEGIA, UNSPECIFIED (5) UTI (urinary tract infection) with pyuria Assessment/Plan: -iv abx -ID on board -repeat labs in AM -UC positive for Pseudomonas Code(s): N39.0 - URINARY TRACT INFECTION, SITE NOT SPECIFIED (6) Constipation Assessment/Plan: -GI on board -refusing stimulants except mineral oil enema -CT abd shows fecal impaction Code(s): K59.00 - CONSTIPATION, UNSPECIFIED Qualifiers: Constipation type: unspecified constipation type Qualified Code(s): K59.00 - Constipation, unspecified; K59.00 - Constipation, unspecified (7) Anemia Assessment/Plan: -Venofer -Hematology on board -H/H stable Code(s): D64.9 - ANEMIA, UNSPECIFIED Qualifiers: Anemia type: iron deficiency Other causes of anemia: due to other specified chronic disease (8) Bilateral nephrolithiasis Assessment/Plan: -BL Ureteral stents placed this admission for BL hydronephrosis -needs percuatneous lithotripsy at a tertiary center, is refusing it Code(s): N20.0 - CALCULUS OF KIDNEY (9) Effusion of hip Assessment/Plan: -left hip Xray insignificant -MRI left hip inconclusive of osteomyelitis, effusion of left hemipelvis, etiology unknown -CT abd contrast shows large left hip and abd effusion -LLQ YA draining minimally -Fluid collected has creatinine of 3.21 -needs workup to explore whether there is a leak from renal source post cystoscopy or has it healed?, suggested cystogram/ MRI with inulin contrast? - have not been able to get in touch with Urology Code(s): M25.459 - EFFUSION, UNSPECIFIED HIP Qualifiers: Laterality: left Qualified Code(s): M25.452 - Effusion, left hip; M25.452 - Effusion, left hip Assessment/Plan Awaiting call back from urology
[2016-12-19] MEDS: METHYL SALICYLATE/MENTHOL OINT 30 GM TUBE TP SCH ×2 (10:21→22:24)
[2016-12-19] MEDS: ZINC SULFATE 220 MG CAPSULE (FP) PO SCH ×2 (10:28→22:23)
[2016-12-19] MEDS: PANTOPRAZOLE 40 MG TABLET (FP) PO SCH ×2 (10:29→22:25)
[2016-12-19] MEDS: GABAPENTIN 100 MG CAPSULE (FP) PO SCH (10:29)
[2016-12-19] MEDS: IRON SUCROSE INJECTION 200 MG in SODIUM CHLORIDE 100 ML IVPB SCH (10:30)
[2016-12-19] MEDS ORDERED: PT OWN MED DRAWER 7, Y5N ONE (12:22)
[2016-12-19] MEDS: VANCOMYCIN 1,000 MG in DEXTROSE 5%-WATER - 250 ML IVPB SCH (12:26)
[2016-12-19 12:37] LABS: ANISOCYTOSIS 3+; MICROCYTOSIS 2+; TARGET CELLS 1+
--- NOTE | 2016-12-19 13:32 | PN ---
Progress Note, Physician History of Present Illness: No complaints Afebrile WBC WNL - Current Medication List Current Medications: Active Medications Acetaminophen (Tylenol -) 1,000 mg PO Q6H PRN PRN Reason: FEVER OR PAIN Last Admin: 12/02/16 18:13 Dose: 1,000 mg Amino Acids (Prosource No Carb Liquid Pkt) 30 ml PO BID@0800,1730 [facility] Last Admin: 12/19/16 08:15 Dose: Not Given Diphenhydramine HCl (Benadryl Injection -) 50 mg IVPB BID PRN PRN Reason: FOR ITCHING Last Admin: 11/19/16 22:43 Dose: 50 mg Gabapentin (Neurontin -) 100 mg PO DAILY [facility] Last Admin: 12/19/16 10:29 Dose: Not Given IV Flush (Picc Line Flush) 8 ml IVPUSH PRN PRN PRN Reason: Protocol Last Admin: 11/23/16 11:00 Dose: 8 ml IV Flush (Triple Lumen Flush) 4 ml IVPUSH PRN PRN PRN Reason: Protocol Last Admin: 12/15/16 07:01 Dose: 4 ml Vancomycin HCl 1,000 mg/ (Dextrose) 250 mls @ 166.667 mls/hr IVPB DAILY@1230 [facility] PRN Reason: Protocol Last Admin: 12/19/16 12:26 Dose: 166.667 mls/hr Methyl Salicylate (Osmar-Moreno -) 1 applic TP BID [facility] Last Admin: 12/19/16 10:21 Dose: Not Given Mineral Oil (Mineral Oil -) 30 ml PO BID PRN PRN Reason: CONSTIPATION Last Admin: 12/15/16 21:48 Dose: 30 ml Pantoprazole Sodium (Protonix -) 40 mg PO BID [facility] Last Admin: 12/19/16 10:29 Dose: 40 mg Senna (Senna -) 1 tab PO HS [facility] Last Admin: 12/18/16 22:34 Dose: Not Given Simethicone (Mylicon -) 80 mg PO QID PRN Last Admin: 12/04/16 22:26 Dose: 80 mg Zinc Sulfate (Orazinc -) 220 mg PO BID [facility] Last Admin: 12/19/16 10:28 Dose: 220 mg - Objective Vital Signs: Vital Signs Temperature 97.4 F L 12/19/16 10:00 Pulse Rate 89 10/06/17 10:00 Respiratory Rate 20 12/19/16 10:00 Blood Pressure 100/62 12/19/16 10:00 O2 Sat by Pulse Oximetry (%) 96 12/19/16 09:00 Constitutional: Yes: No Distress, Cachectic Cardiovascular: Yes: Regular Rate and Rhythm, S1, S2 Respiratory: Yes: CTA Bilaterally Gastrointestinal: Yes: Normal Bowel Sounds, Soft. No: Tenderness Labs: CBC, BMP 12/19/16 06:30 12/19/16 06:30 Assessment/Plan Obstructive uropathy s/p stents Hx MDR urinary tract pathogens Low grade temp/ leukocytosis- resolved Paraplegia Sacral decubitus Large fluid collection L hemipelvis ? etiology S/P drainage c/s mixed organisms including MRSA resume vancomycin. Will need follow up imaging to assess fluid collection
[2016-12-19] MEDS: SENNOSIDES 8.6MG TABLET (FP) PO SCH (22:25)
[2016-12-20] MEDS: ZINC SULFATE 220 MG CAPSULE (FP) PO SCH ×2 (10:07→22:24)
[2016-12-20] MEDS: PANTOPRAZOLE 40 MG TABLET (FP) PO SCH (10:09)
[2016-12-20] MEDS: GABAPENTIN 100 MG CAPSULE (FP) PO SCH (10:09)
[2016-12-20] MEDS: METHYL SALICYLATE/MENTHOL OINT 30 GM TUBE TP SCH ×2 (10:09→22:25)
[2016-12-20] MEDS: AMINO ACIDS/PROTEIN HYDROLYS 30 ML LIQUID.PKT PO SCH (10:09)
--- NOTE | 2016-12-20 10:09 | PN ---
Progress Note, Physician Chief Complaint: AWAKE ALERT FEELING BETTER TODAY - Current Medication List Current Medications: Active Medications Acetaminophen (Tylenol -) 1,000 mg PO Q6H PRN PRN Reason: FEVER OR PAIN Last Admin: 12/02/16 18:13 Dose: 1,000 mg Amino Acids (Prosource No Carb Liquid Pkt) 30 ml PO BID@0800,1730 [facility] Last Admin: 12/19/16 16:53 Dose: Not Given Diphenhydramine HCl (Benadryl Injection -) 50 mg IVPB BID PRN PRN Reason: FOR ITCHING Last Admin: 11/19/16 22:43 Dose: 50 mg Gabapentin (Neurontin -) 100 mg PO DAILY [facility] Last Admin: 12/19/16 10:29 Dose: Not Given IV Flush (Picc Line Flush) 8 ml IVPUSH PRN PRN PRN Reason: Protocol Last Admin: 11/23/16 11:00 Dose: 8 ml IV Flush (Triple Lumen Flush) 4 ml IVPUSH PRN PRN PRN Reason: Protocol Last Admin: 12/15/16 07:01 Dose: 4 ml Vancomycin HCl 1,000 mg/ (Dextrose) 250 mls @ 166.667 mls/hr IVPB DAILY@1230 GISEL PRN Reason: Protocol Last Admin: 12/19/16 12:26 Dose: 166.667 mls/hr Methyl Salicylate (Osmar-Moreno -) 1 applic TP BID [facility] Last Admin: 12/19/16 22:24 Dose: Not Given Mineral Oil (Mineral Oil -) 30 ml PO BID PRN PRN Reason: CONSTIPATION Last Admin: 12/15/16 21:48 Dose: 30 ml Pantoprazole Sodium (Protonix -) 40 mg PO BID [facility] Last Admin: 12/19/16 22:25 Dose: Not Given Senna (Senna -) 1 tab PO HS [facility] Last Admin: 12/19/16 22:25 Dose: Not Given Simethicone (Mylicon -) 80 mg PO QID PRN Last Admin: 12/04/16 22:26 Dose: 80 mg Zinc Sulfate (Orazinc -) 220 mg PO BID [facility] Last Admin: 12/19/16 22:23 Dose: 220 mg - Objective Vital Signs: Vital Signs Temperature 97.8 F 12/20/16 08:55 Pulse Rate 76 12/20/16 08:55 Respiratory Rate 16 12/20/16 08:55 Blood Pressure 105/64 12/20/16 08:55 O2 Sat by Pulse Oximetry (%) 95 12/19/16 21:00 Constitutional: Yes: No Distress Eyes: Yes: WNL HENT: Yes: WNL Neck: Yes: WNL Cardiovascular: Yes: WNL Respiratory: Yes: WNL Gastrointestinal: Yes: WNL ...Rectal Exam: Yes: Other Genitourinary: Yes: Pelaez Present, Other Musculoskeletal: Yes: Muscle Weakness Extremities: Yes: Other Edema: No Peripheral Pulses WNL: Yes Integumentary: Yes: Pressure Ulcer, Rash Wound/Incision: Yes: Dressing Dry and Intact, Unapproximated Neurological: Yes: Loss of Sensation, Paresthesia, Pre-Existing Deficit, Unsteady Gait, Weakness ...Motor Strength: LLE, RLE Psychiatric: Yes: Other Labs: CBC, BMP 12/19/16 06:30 12/19/16 06:30 Problem List - Problems (1) COPD (chronic obstructive pulmonary disease) Code(s): J44.9 - CHRONIC OBSTRUCTIVE PULMONARY DISEASE, UNSPECIFIED Qualifiers : COPD type: COPD with acute exacerbation Qualified Code(s): J44.1 - Chronic obstructive pulmonary disease with (acute) exacerbation; J44.1 - Chronic obstructive pulmonary disease with (acute) exacerbation; J44.1 - Chronic obstructive pulmonary disease with (acute) exacerbation; J44.1 - Chronic obstructive pulmonary disease with (acute) exacerbation (2) Chronic indwelling Pelaez catheter Code(s): Z92.89 - PERSONAL HISTORY OF OTHER MEDICAL TREATMENT (3) Elevated INR Code(s): R79.1 - ABNORMAL COAGULATION PROFILE (4) 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
[2016-12-20] MEDS ORDERED: RANITIDINE HCL 150 MG TABLET (FP) PO SCH (10:15)
[2016-12-20] MEDS: VANCOMYCIN 1,000 MG in DEXTROSE 5%-WATER - 250 ML IVPB SCH (13:09)
[2016-12-20] MEDS: SENNOSIDES 8.6MG TABLET (FP) PO SCH (22:25)
[2016-12-21] MEDS: METHYL SALICYLATE/MENTHOL OINT 30 GM TUBE TP SCH ×2 (10:10→22:50)
[2016-12-21] MEDS: ZINC SULFATE 220 MG CAPSULE (FP) PO SCH ×2 (10:10→22:50)
--- NOTE | 2016-12-21 11:21 | PN ---
Progress Note, Physician Chief Complaint: AWAEK ALERT NAD PURELENT DISCHARGE FROM [facility] CALLED TO ASSESS TODAY - Current Medication List Current Medications: Active Medications Acetaminophen (Tylenol -) 1,000 mg PO Q6H PRN PRN Reason: FEVER OR PAIN Last Admin: 12/02/16 18:13 Dose: 1,000 mg Diphenhydramine HCl (Benadryl Injection -) 50 mg IVPB BID PRN PRN Reason: FOR ITCHING Last Admin: 11/19/16 22:43 Dose: 50 mg IV Flush (Picc Line Flush) 8 ml IVPUSH PRN PRN PRN Reason: Protocol Last Admin: 11/23/16 11:00 Dose: 8 ml IV Flush (Triple Lumen Flush) 4 ml IVPUSH PRN PRN PRN Reason: Protocol Last Admin: 12/15/16 07:01 Dose: 4 ml Vancomycin HCl 1,000 mg/ (Dextrose) 250 mls @ 166.667 mls/hr IVPB DAILY@1230 [facility] PRN Reason: Protocol Last Admin: 12/20/16 13:09 Dose: 166.667 mls/hr Methyl Salicylate (Osmar-Moreno -) 1 applic TP BID [facility] Last Admin: 12/21/16 10:10 Dose: 1 applic Mineral Oil (Mineral Oil -) 30 ml PO BID PRN PRN Reason: CONSTIPATION Last Admin: 12/15/16 21:48 Dose: 30 ml Senna (Senna -) 1 tab PO HS [facility] Last Admin: 12/20/16 22:25 Dose: Not Given Simethicone (Mylicon -) 80 mg PO QID PRN Last Admin: 12/04/16 22:26 Dose: 80 mg Zinc Sulfate (Orazinc -) 220 mg PO BID [facility] Last Admin: 12/21/16 10:10 Dose: 220 mg - Objective Vital Signs: Vital Signs Temperature 98.0 F 12/21/16 10:00 Pulse Rate 83 12/21/16 10:00 Respiratory Rate 20 12/21/16 10:00 Blood Pressure 118/70 12/21/16 10:00 O2 Sat by Pulse Oximetry (%) 96 12/20/16 21:00 Constitutional: Yes: No Distress Eyes: Yes: WNL HENT: Yes: WNL Neck: Yes: WNL Cardiovascular: Yes: WNL Respiratory: Yes: WNL Gastrointestinal: Yes: WNL Genitourinary: Yes: Pelaez Present Musculoskeletal: Yes: Muscle Weakness Extremities: Yes: Deformity Edema: No Peripheral Pulses WNL: Yes Integumentary: Yes: Pressure Ulcer Wound/Incision: Yes: Dressing Dry and Intact Neurological: Yes: Pre-Existing Deficit, Unsteady Gait, Weakness ...Motor Strength: LLE, RLE Psychiatric: Yes: Other Labs: CBC, BMP 12/19/16 06:30 12/19/16 06:30 Problem List - Problems (1) COPD (chronic obstructive pulmonary disease) Code(s): J44.9 - CHRONIC OBSTRUCTIVE PULMONARY DISEASE, UNSPECIFIED Qualifiers : COPD type: COPD with acute exacerbation Qualified Code(s): J44.1 - Chronic obstructive pulmonary disease with (acute) exacerbation; J44.1 - Chronic obstructive pulmonary disease with (acute) exacerbation; J44.1 - Chronic obstructive pulmonary disease with (acute) exacerbation; J44.1 - Chronic obstructive pulmonary disease with (acute) exacerbation (2) Chronic indwelling Pelaez catheter Code(s): Z92.89 - PERSONAL HISTORY OF OTHER MEDICAL TREATMENT (3) Elevated INR Code(s): R79.1 - ABNORMAL COAGULATION PROFILE (4) 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 PELAEZ CHANGE, RULE OUT ABSCESS IV ABX PER ID AC PATIENT DECLINES PPI AND GABAPENTIN
[2016-12-21] MEDS: VANCOMYCIN 1,000 MG in DEXTROSE 5%-WATER - 250 ML IVPB SCH (11:35)
[2016-12-21] MEDS: SENNOSIDES 8.6MG TABLET (FP) PO SCH (22:50)
[2016-12-22 07:57] LABS: MCH 25.6 pg (25.7-33.7); MCHC 31.3 g/dl (32.0-35.9); MEAN CELL VOLUME 81.6 fl (80-96); MEAN PLT VOLUME 7.7 fl (7.5-11.1); PLATELET COUNT 217 K/MM3 (134-434); RDW 28.6 % (11.9-15.9); WHITE BLOOD COUNT 6.7 K/mm3 (4.0-10.0)
[2016-12-22 08:38] LABS: ANION GAP 8 (8-16); CO2 29 mmol/L (21-32); GLUCOSE,RANDOM 70 mg/dL (74-106)
[2016-12-22 08:42] LABS: ALBUMIN 2.2 g/dl (3.4-5.0); ALK PHOS 122 U/L (45-117); BILIRUBIN,TOTAL 0.3 mg/dL (0.2-1.0); CALCIUM 8.5 mg/dL (8.5-10.1); CREATININE 0.6 mg/dL (0.7-1.3); SGOT/AST 12 U/L (15-37); SGPT/ALT 16 U/L (12-78); TOT PROT 7.4 g/dl (6.4-8.2)
--- NOTE | 2016-12-22 10:19 | PN ---
Progress Note (short form) - Note Progress Note: ID Vancomyin Selected Entries 12/21/16 22:00 Temperature 98.0 F Pulse Rate 72 Respiratory 18 Rate Blood Pressure 118/62 Laboratory Tests 12/19/16 12/22/16 12/22/16 06:30 06:30 06:30 WBC 6.7 Hgb 9.7 L Hct 31.0 L Plt Count 217 Creat Clearance w eGFR > 60 Random Vancomycin 14.391 Assessment Psoas collection MRSA Enterococcus Plan Says cannot manage Vanco at home and refuses [facility] Can use Linezolid 600mg BID Explained to patient the potential side effects of Linezolid including but not limited to myelosurpression optic neuritis and drug interaction SSRI Kindly recall as needed Brittney LUX Problem List - Problems (1) UTI (urinary tract infection) with pyuria Code(s): N39.0 - URINARY TRACT INFECTION, SITE NOT SPECIFIED (2) Infection with multi-drug resistant microorganisms Code(s): Z16.35 - RESISTANCE TO MULTIPLE ANTIMICROBIAL DRUGS
--- NOTE | 2016-12-22 10:50 | PN ---
Progress Note, Physician Chief Complaint: Nephrolithiasis, decubitus ulcer, constipation History of Present Illness: NAD, in bed alert and oriented on IV Vancomycin Peritoneal fluid growing MRSA, E. feacalis- sensitive to Vanco, Linezolid and daptomycin Patient is refusing to go to rehab for daily IV abx He lives at home with his mother who is unable to do IV abx daily. Linezolid PO for 2 weeks could be considered, would discuss with ID His WBC is stable Peritoneal fluid creatinine is 3.21, there is likely urine component in it. Work up needed like cystogram, inulid? would discuss with Urology and Radiology Stool impaction, needs stimulants, refuses everything except mineral oil enemas. - Current Medication List Current Medications: Active Medications Acetaminophen (Tylenol -) 1,000 mg PO Q6H PRN PRN Reason: FEVER OR PAIN Last Admin: 12/02/16 18:13 Dose: 1,000 mg Diphenhydramine HCl (Benadryl Injection -) 50 mg IVPB BID PRN PRN Reason: FOR ITCHING Last Admin: 11/19/16 22:43 Dose: 50 mg IV Flush (Picc Line Flush) 8 ml IVPUSH PRN PRN PRN Reason: Protocol Last Admin: 11/23/16 11:00 Dose: 8 ml IV Flush (Triple Lumen Flush) 4 ml IVPUSH PRN PRN PRN Reason: Protocol Last Admin: 12/15/16 07:01 Dose: 4 ml Vancomycin HCl 1,000 mg/ (Dextrose) 250 mls @ 166.667 mls/hr IVPB DAILY@1230 [facility] PRN Reason: Protocol Last Admin: 12/21/16 11:35 Dose: 166.667 mls/hr Methyl Salicylate (Osmar-Moreno -) 1 applic TP BID [facility] Last Admin: 12/21/16 22:50 Dose: 1 applic Mineral Oil (Mineral Oil -) 30 ml PO BID PRN PRN Reason: CONSTIPATION Last Admin: 12/15/16 21:48 Dose: 30 ml Senna (Senna -) 1 tab PO HS [facility] Last Admin: 12/21/16 22:50 Dose: Not Given Simethicone (Mylicon -) 80 mg PO QID PRN Last Admin: 12/04/16 22:26 Dose: 80 mg Zinc Sulfate (Orazinc -) 220 mg PO BID [facility] Last Admin: 12/21/16 22:50 Dose: 220 mg - Objective Vital Signs: Vital Signs Temperature 98.0 F 12/21/16 22:00 Pulse Rate 72 12/21/16 22:00 Respiratory Rate 18 12/21/16 22:00 Blood Pressure 118/62 12/21/16 22:00 O2 Sat by Pulse Oximetry (%) 96 12/21/16 21:00 Constitutional: Yes: Well Nourished, No Distress, Calm Cardiovascular: Yes: Regular Rate and Rhythm Respiratory: Yes: Regular Gastrointestinal: Yes: Ascites, Hypoactive Bowel Sounds Genitourinary: Yes: Pelaez Present Neurological: Yes: Alert, Oriented Psychiatric: Yes: Alert, Oriented Labs: CBC, BMP 12/22/16 06:30 12/22/16 06:30 Problem List - Problems (1) Chronic indwelling Pelaez catheter Assessment/Plan: -Pelaez catheter -needs a suprapubic catheter but refuses -seen by Urology Code(s): Z92.89 - PERSONAL HISTORY OF OTHER MEDICAL TREATMENT (2) Infection with multi-drug resistant microorganisms Assessment/Plan: ID on board IV abx repeat labs in AM afebrile VSS Microbiology 12/11/16 17:00 Peritoneal Fluid Gram Stain - Final 12/11/16 17:00 Peritoneal Fluid Body Fluid Culture - Final S Aureus Enterococcus Faecalis S Aureus#2 Code(s): Z16.35 - RESISTANCE TO MULTIPLE ANTIMICROBIAL DRUGS (3) Neurogenic bladder Assessment/Plan: Chronic Pelaez catheter -needs a suprapubic catheter but refuses -seen by Urology Code(s): N31.9 - NEUROMUSCULAR DYSFUNCTION OF BLADDER, UNSPECIFIED (4) Paraplegia following spinal cord injury Code(s): G82.20 - PARAPLEGIA, UNSPECIFIED (5) UTI (urinary tract infection) with pyuria Assessment/Plan: -iv abx -ID on board -repeat labs in AM -UC positive for Pseudomonas Code(s): N39.0 - URINARY TRACT INFECTION, SITE NOT SPECIFIED (6) Constipation Assessment/Plan: -GI on board -refusing stimulants except mineral oil enema -CT abd shows fecal impaction Code(s): K59.00 - CONSTIPATION, UNSPECIFIED Qualifiers: Constipation type: unspecified constipation type Qualified Code(s): K59.00 - Constipation, unspecified; K59.00 - Constipation, unspecified (7) Anemia Assessment/Plan: -Venofer -Hematology on board -H/H stable Code(s): D64.9 - ANEMIA, UNSPECIFIED Qualifiers: Anemia type: iron deficiency Other causes of anemia: due to other specified chronic disease (8) Bilateral nephrolithiasis Assessment/Plan: -BL Ureteral stents placed this admission for BL hydronephrosis -needs percuatneous lithotripsy at a tertiary center, is refusing it Code(s): N20.0 - CALCULUS OF KIDNEY (9) Effusion of hip Assessment/Plan: -left hip Xray insignificant -MRI left hip inconclusive of osteomyelitis, effusion of left hemipelvis, etiology unknown -CT abd contrast shows large left hip and abd effusion -LLQ YA draining minimally -Fluid collected has creatinine of 3.21 -needs workup to explore whether there is a leak from renal source post cystoscopy or has it healed?, suggested cystogram/ MRI with inulin contrast? - have not been able to get in touch with Urology Code(s): M25.459 - EFFUSION, UNSPECIFIED HIP Qualifiers: Laterality: left Qualified Code(s): M25.452 - Effusion, left hip; M25.452 - Effusion, left hip Assessment/Plan Awaiting call back from urology Left message for IR to discuss case.
[2016-12-22] MEDS: ZINC SULFATE 220 MG CAPSULE (FP) PO SCH (11:34)
[2016-12-22] MEDS: METHYL SALICYLATE/MENTHOL OINT 30 GM TUBE TP SCH (11:34)
[2016-12-22] MEDS: MINERAL OIL 30 ML UNIT-DOSE CUP PO PRN (11:35)
[2016-12-22] MEDS: VANCOMYCIN 1,000 MG in DEXTROSE 5%-WATER - 250 ML IVPB SCH (11:35)
[2016-12-22] MEDS: SENNOSIDES 8.6MG TABLET (FP) PO SCH (22:30)
--- NOTE | 2016-12-22 23:44 | PN ---
Progress Note (short form) - Note Progress Note: pt. with haley. hydroureteronephrosis and is s/p haley. JJ stents also has haley. mult. renal stones pt. developed a lt. pelvic collection which most likely was uriniferious in nature and likely is due to the chronic nature of his urologic condition.drainage is decreasing and vital signs are stable. no acute intervention needed. hull catheter changed
--- NOTE | 2016-12-23 00:06 | CONS ---
DATE OF CONSULTATION: 12/22/2016 Patient is a 51-year-old paraplegic male, well-known to me for multiple years. He has a history of neurogenic bladder and permanent Pelaez drainage for the past 20 years. Patient also has a history of bilateral nephrolithiasis and bilateral double-J stents. He has undergone multiple ureteroscopic laser lithotripsies. Last year he underwent bilateral percutaneous laser nephrolithotripsy at [facility]. He again presented with bilateral nephrolithiasis and bilateral hydroureteronephrosis. He constantly has positive urine cultures, which grow out pseudomonas, klebsiella, MRSA, ESBL, as well as Escherichia coli. He has been on multiple antibiotics. At present, he was found to have a large left lower quadrant septated abscess in his left groin. This was recently drained by Interventional Radiology. The CT scan had revealed a very large loculated fluid collection involving the left iliopsoas muscle and extending both posteriorly into the left buttock and anteriorly into the inguinal region. There are bilateral ureteral stents with residual bilateral hydroureteronephrosis. Also, there are multiple bilateral renal stones. There is a significant fecal impaction, which the patient is aware of. Presently the patient has normal renal function. His BUN is 32 and creatinine is 0.6. His white count is 6.7. His hemoglobin is 9.7, hematocrit 31, platelets are 217. Liver enzymes are basically within normal limits. The patient has been having excellent urine output, consistent between 2791-9689 mL per day, via his Pelaez catheter. He is afebrile and his blood pressures have ranged between 118 and 62. Presently the patient's Pelaez reveals purulent urinary drainage; therefore, the Pelaez catheter was removed. Cultures were taken from the meatus, which had a purulent discharge. Cultures were also taken from the tip of the Pelaez catheter. A brand new 18-Latvian 10 mL Pelaez catheter was inserted at the bedside. The patient's abdomen is distended, as usual. Patient has no sensation below the umbilicus. His drainage via the right pigtail catheter has diminished and is no longer purulent. Since the patient recently underwent a CT scan with contrast, there is no need for further urologic workup. He has extremely dilated bilateral extrarenal pelvises. CT scan interpretation is cystic disease, but during the retrograde studies that were done last month, these were extremely dilated, extrarenal pelvic tissue. Therefore, it is recommended that no acute intervention be performed on the patient. He will need to undergo percutaneous nephrolithotripsy at a tertiary center. This was explained in detail to the patient as well as to the patient's mother. Alison [id number]
[2016-12-23] MEDS: ZINC SULFATE 220 MG CAPSULE (FP) PO SCH ×3 (01:44→22:10)
[2016-12-23] MEDS: METHYL SALICYLATE/MENTHOL OINT 30 GM TUBE TP SCH ×3 (01:44→22:10)
--- NOTE | 2016-12-23 10:26 | PN ---
Progress Note, Physician Chief Complaint: Nephrolithiasis, decubitus ulcer, constipation History of Present Illness: NAD, in bed alert and oriented on IV Vancomycin Peritoneal fluid growing MRSA, E. feacalis- sensitive to Vanco, Linezolid and daptomycin Patient is refusing to go to rehab for daily IV abx He lives at home with his mother who is unable to do IV abx daily. Linezolid PO for 2 weeks could be considered, would discuss with ID His WBC is stable Peritoneal fluid creatinine is 3.21, there is likely urine component in it. Work up needed like cystogram, inulid? would discuss with Urology and Radiology Stool impaction, needs stimulants, refuses everything except mineral oil enemas. - Current Medication List Current Medications: Active Medications Acetaminophen (Tylenol -) 1,000 mg PO Q6H PRN PRN Reason: FEVER OR PAIN Last Admin: 12/02/16 18:13 Dose: 1,000 mg Diphenhydramine HCl (Benadryl Injection -) 50 mg IVPB BID PRN PRN Reason: FOR ITCHING Last Admin: 11/19/16 22:43 Dose: 50 mg IV Flush (Picc Line Flush) 8 ml IVPUSH PRN PRN PRN Reason: Protocol Last Admin: 11/23/16 11:00 Dose: 8 ml IV Flush (Triple Lumen Flush) 4 ml IVPUSH PRN PRN PRN Reason: Protocol Last Admin: 12/15/16 07:01 Dose: 4 ml Vancomycin HCl 1,000 mg/ (Dextrose) 250 mls @ 166.667 mls/hr IVPB DAILY@1230 [facility] PRN Reason: Protocol Last Admin: 12/22/16 11:35 Dose: 166.667 mls/hr Methyl Salicylate (Osmar-Moreno -) 1 applic TP BID [facility] Last Admin: 12/23/16 01:44 Dose: Not Given Mineral Oil (Mineral Oil -) 30 ml PO BID PRN PRN Reason: CONSTIPATION Last Admin: 12/22/16 11:35 Dose: 30 ml Senna (Senna -) 1 tab PO HS [facility] Last Admin: 12/22/16 22:30 Dose: Not Given Simethicone (Mylicon -) 80 mg PO QID PRN Last Admin: 12/04/16 22:26 Dose: 80 mg Zinc Sulfate (Orazinc -) 220 mg PO BID [facility] Last Admin: 12/23/16 01:44 Dose: 220 mg - Objective Vital Signs: Vital Signs Temperature 98.3 F 12/23/16 10:00 Pulse Rate 93 H 12/23/16 10:00 Respiratory Rate 20 12/23/16 10:00 Blood Pressure 98/61 12/23/16 10:00 O2 Sat by Pulse Oximetry (%) 96 12/22/16 21:00 Constitutional: Yes: Well Nourished, No Distress, Calm Cardiovascular: Yes: Regular Rate and Rhythm Respiratory: Yes: Regular Gastrointestinal: Yes: Ascites, Hypoactive Bowel Sounds Genitourinary: Yes: Pelaez Present Edema: No Neurological: Yes: Alert, Oriented Psychiatric: Yes: Alert, Oriented Labs: CBC, BMP 12/22/16 06:30 12/22/16 06:30 Problem List - Problems (1) Chronic indwelling Pelaez catheter Assessment/Plan: -Pelaez catheter changed yesterday -needs a suprapubic catheter but refuses -seen by Urology Code(s): Z92.89 - PERSONAL HISTORY OF OTHER MEDICAL TREATMENT (2) Infection with multi-drug resistant microorganisms Assessment/Plan: -ID on board -abx would be changed to PO once being discharged Code(s): Z16.35 - RESISTANCE TO MULTIPLE ANTIMICROBIAL DRUGS (3) Neurogenic bladder Assessment/Plan: Chronic Pelaez catheter -needs a suprapubic catheter but refuses -seen by Urology Code(s): N31.9 - NEUROMUSCULAR DYSFUNCTION OF BLADDER, UNSPECIFIED (4) Paraplegia following spinal cord injury Code(s): G82.20 - PARAPLEGIA, UNSPECIFIED (5) UTI (urinary tract infection) with pyuria Assessment/Plan: -iv abx could be changed to PO once ready for discharge -ID on board -repeat labs in AM -UC positive for Pseudomonas -Pelaez changed by Urology yesterday Code(s): N39.0 - URINARY TRACT INFECTION, SITE NOT SPECIFIED (6) Constipation Assessment/Plan: -GI on board -repeat KUB shows significant fecal impaction -patient aware, refuses stimulants or laxatives, only wants to use mineral oil enema Code(s): K59.00 - CONSTIPATION, UNSPECIFIED Qualifiers: Constipation type: unspecified constipation type Qualified Code(s): K59.00 - Constipation, unspecified; K59.00 - Constipation, unspecified (7) Anemia Assessment/Plan: -Venofer -Hematology on board -H/H stable Code(s): D64.9 - ANEMIA, UNSPECIFIED Qualifiers: Anemia type: iron deficiency Other causes of anemia: due to other specified chronic disease (8) Bilateral nephrolithiasis Assessment/Plan: -BL Ureteral stents placed this admission for BL hydronephrosis -needs percuatneous lithotripsy at a tertiary center, is refusing it Code(s): N20.0 - CALCULUS OF KIDNEY (9) Effusion of hip Assessment/Plan: -CT abd contrast showed large left hip and abd effusion -LLQ YA draining minimally -Fluid collected has creatinine of 3.21 -Seen by urology, no new work up recommended?, drain to be taken out? Code(s): M25.459 - EFFUSION, UNSPECIFIED HIP Qualifiers: Laterality: left Qualified Code(s): M25.452 - Effusion, left hip; M25.452 - Effusion, left hip Assessment/Plan see problem list
[2016-12-23] MEDS ORDERED: PT OWN MED DRAWER 7, Y5N ONE ×2 (10:44→11:46)
[2016-12-23] MEDS: VANCOMYCIN 1,000 MG in DEXTROSE 5%-WATER - 250 ML IVPB SCH (11:48)
[2016-12-23] MEDS: SENNOSIDES 8.6MG TABLET (FP) PO SCH (22:10)
[2016-12-24] MEDS: ZINC SULFATE 220 MG CAPSULE (FP) PO SCH ×2 (11:40→21:00)
[2016-12-24] MEDS: VANCOMYCIN 1,000 MG in DEXTROSE 5%-WATER - 250 ML IVPB SCH (11:40)
[2016-12-24] MEDS: MINERAL OIL 30 ML UNIT-DOSE CUP PO PRN ×2 (11:40→23:00)
[2016-12-24] MEDS: METHYL SALICYLATE/MENTHOL OINT 30 GM TUBE TP SCH ×2 (11:42→21:00)
--- NOTE | 2016-12-24 12:04 | PN ---
Progress Note (short form) - Note Progress Note: pt stable urinary extravasation chronic condition due to staghorn stone disease needs xfer to [facility] for pcnl b/l
--- NOTE | 2016-12-24 14:14 | PN ---
Progress Note, Physician Chief Complaint: Nephrolithiasis, decubitus ulcer, constipation History of Present Illness: NAD, in bed alert and oriented Still on IV Vancomycin Peritoneal fluid growing MRSA, E. feacalis- sensitive to Vanco, Linezolid and daptomycin Patient is refusing to go to rehab for daily IV abx He lives at home with his mother who is unable to do IV abx daily. Linezolid PO for 2 weeks could be considered, would discuss with ID His WBC is stable Peritoneal fluid creatinine is 3.21, there is likely urine component in it. Stool impaction, needs stimulants, refuses everything except mineral oil enemas. - Current Medication List Current Medications: Active Medications Acetaminophen (Tylenol -) 1,000 mg PO Q6H PRN PRN Reason: FEVER OR PAIN Last Admin: 12/02/16 18:13 Dose: 1,000 mg Diphenhydramine HCl (Benadryl Injection -) 50 mg IVPB BID PRN PRN Reason: FOR ITCHING Last Admin: 11/19/16 22:43 Dose: 50 mg IV Flush (Picc Line Flush) 8 ml IVPUSH PRN PRN PRN Reason: Protocol Last Admin: 11/23/16 11:00 Dose: 8 ml IV Flush (Triple Lumen Flush) 4 ml IVPUSH PRN PRN PRN Reason: Protocol Last Admin: 12/15/16 07:01 Dose: 4 ml Vancomycin HCl 1,000 mg/ (Dextrose) 250 mls @ 166.667 mls/hr IVPB DAILY@1230 GISEL PRN Reason: Protocol Last Admin: 12/24/16 11:40 Dose: 166.667 mls/hr Methyl Salicylate (Osmar-Moreno -) 1 applic TP BID [facility] Last Admin: 12/24/16 11:42 Dose: 1 applic Mineral Oil (Mineral Oil -) 30 ml PO BID PRN PRN Reason: CONSTIPATION Last Admin: 12/24/16 11:40 Dose: 30 ml Senna (Senna -) 1 tab PO HS [facility] Last Admin: 12/23/16 22:10 Dose: Not Given Simethicone (Mylicon -) 80 mg PO QID PRN Last Admin: 12/04/16 22:26 Dose: 80 mg Zinc Sulfate (Orazinc -) 220 mg PO BID [facility] Last Admin: 12/24/16 11:40 Dose: 220 mg - Objective Vital Signs: Vital Signs Temperature 97.6 F 12/24/16 05:23 Pulse Rate 78 12/24/16 05:23 Respiratory Rate 20 12/24/16 05:23 Blood Pressure 98/61 12/24/16 05:23 O2 Sat by Pulse Oximetry (%) 95 12/23/16 21:00 Constitutional: Yes: Well Nourished, No Distress, Calm Cardiovascular: Yes: Regular Rate and Rhythm Respiratory: Yes: Regular Gastrointestinal: Yes: Distention, Hypoactive Bowel Sounds Extremities: Yes: WNL Edema: No Integumentary: Yes: Pressure Ulcer, Other (left hemipelvis drain intact) Neurological: Yes: Alert, Oriented Psychiatric: Yes: Alert, Oriented Labs: CBC, BMP 12/22/16 06:30 12/22/16 06:30 Problem List - Problems (1) Chronic indwelling Pelaez catheter Assessment/Plan: -needs a suprapubic catheter but refuses -seen by Urology Code(s): Z92.89 - PERSONAL HISTORY OF OTHER MEDICAL TREATMENT (2) Infection with multi-drug resistant microorganisms Assessment/Plan: -ID on board -on IV abx -abx would be changed to PO Linezolid once being discharged Code(s): Z16.35 - RESISTANCE TO MULTIPLE ANTIMICROBIAL DRUGS (3) Neurogenic bladder Assessment/Plan: Chronic Pelaez catheter -needs a suprapubic catheter but refuses -seen by Urology Code(s): N31.9 - NEUROMUSCULAR DYSFUNCTION OF BLADDER, UNSPECIFIED (4) Paraplegia following spinal cord injury Code(s): G82.20 - PARAPLEGIA, UNSPECIFIED (5) UTI (urinary tract infection) with pyuria Assessment/Plan: -IV abx could be changed to PO once ready for discharge -ID on board -UC positive for Pseudomonas Code(s): N39.0 - URINARY TRACT INFECTION, SITE NOT SPECIFIED (6) Constipation Assessment/Plan: -GI on board -repeat KUB shows significant fecal impaction -patient aware, refuses stimulants or laxatives, only wants to use mineral oil enema Code(s): K59.00 - CONSTIPATION, UNSPECIFIED Qualifiers: Constipation type: unspecified constipation type Qualified Code(s): K59.00 - Constipation, unspecified; K59.00 - Constipation, unspecified (7) Anemia Assessment/Plan: -Venofer -Hematology on board -H/H stable Code(s): D64.9 - ANEMIA, UNSPECIFIED Qualifiers: Anemia type: iron deficiency Other causes of anemia: due to other specified chronic disease (8) Bilateral nephrolithiasis Assessment/Plan: -BL Ureteral stents placed this admission for BL hydronephrosis -needs percuatneous lithotripsy at a tertiary center, is refusing it Code(s): N20.0 - CALCULUS OF KIDNEY (9) Effusion of hip Assessment/Plan: -CT abd contrast showed large left hip and abd effusion -LLQ YA draining minimally -Fluid collected has creatinine of 3.21 -Seen by urology, no new work up recommended?, drain to be taken out? -called urology, awaiting call back Code(s): M25.459 - EFFUSION, UNSPECIFIED HIP Qualifiers: Laterality: left Qualified Code(s): M25.452 - Effusion, left hip; M25.452 - Effusion, left hip Assessment/Plan see problem list
[2016-12-24 14:21] LABS: HIV-2 AB-O.D. RATIO Negative (Neg:<1.00)
[2016-12-24] MEDS: SENNOSIDES 8.6MG TABLET (FP) PO SCH (21:00)
[2016-12-24] MEDS: LINEZOLID 600 MG TABLET (RESTRICTED TO ID) PO SCH (21:01)
[2016-12-24] MEDS ORDERED: PT OWN MED DRAWER 7, Y5N ONE (22:56)
--- NOTE | 2016-12-25 09:56 | PN ---
Progress Note, Physician Chief Complaint: Nephrolithiasis, decubitus ulcer, constipation History of Present Illness: NAD, in bed alert and oriented Still on IV Vancomycin Peritoneal fluid growing MRSA, E. feacalis- sensitive to Vanco, Linezolid and daptomycin Patient is refusing to go to rehab for daily IV abx He lives at home with his mother who is unable to do IV abx daily. Linezolid PO for 2 weeks could be considered, would discuss with ID His WBC is stable Peritoneal fluid creatinine is 3.21, there is likely urine component in it. Stool impaction, needs stimulants, refuses everything except mineral oil enemas. - Current Medication List Current Medications: Active Medications Acetaminophen (Tylenol -) 1,000 mg PO Q6H PRN PRN Reason: FEVER OR PAIN Last Admin: 12/02/16 18:13 Dose: 1,000 mg Diphenhydramine HCl (Benadryl Injection -) 50 mg IVPB BID PRN PRN Reason: FOR ITCHING Last Admin: 11/19/16 22:43 Dose: 50 mg IV Flush (Picc Line Flush) 8 ml IVPUSH PRN PRN PRN Reason: Protocol Last Admin: 11/23/16 11:00 Dose: 8 ml IV Flush (Triple Lumen Flush) 4 ml IVPUSH PRN PRN PRN Reason: Protocol Last Admin: 12/15/16 07:01 Dose: 4 ml Linezolid (Zyvox (Restricted To Id) -) 600 mg PO BID [facility] Last Admin: 12/24/16 21:01 Dose: 600 mg Methyl Salicylate (Osmar-Moreno -) 1 applic TP BID [facility] Last Admin: 12/24/16 21:00 Dose: Not Given Mineral Oil (Mineral Oil -) 30 ml PO BID PRN PRN Reason: CONSTIPATION Last Admin: 12/24/16 23:00 Dose: 30 ml Senna (Senna -) 1 tab PO HS [facility] Last Admin: 12/24/16 21:00 Dose: Not Given Simethicone (Mylicon -) 80 mg PO QID PRN Last Admin: 12/04/16 22:26 Dose: 80 mg Zinc Sulfate (Orazinc -) 220 mg PO BID [facility] Last Admin: 12/24/16 21:00 Dose: 220 mg - Objective Vital Signs: Vital Signs Temperature 97.8 F 12/25/16 06:00 Pulse Rate 85 12/25/16 06:00 Respiratory Rate 20 12/25/16 06:00 Blood Pressure 92/58 12/25/16 06:00 O2 Sat by Pulse Oximetry (%) 97 12/24/16 21:00 Constitutional: Yes: Well Nourished, No Distress, Calm Cardiovascular: Yes: Regular Rate and Rhythm Respiratory: Yes: Regular Gastrointestinal: Yes: Ascites, Hypoactive Bowel Sounds Genitourinary: Yes: Pelaez Present Edema: No Labs: CBC, BMP 12/22/16 06:30 12/22/16 06:30 Problem List - Problems (1) Chronic indwelling Pelaez catheter Assessment/Plan: -needs a suprapubic catheter but refuses -seen by Urology Code(s): Z92.89 - PERSONAL HISTORY OF OTHER MEDICAL TREATMENT (2) Infection with multi-drug resistant microorganisms Assessment/Plan: -ID on board -on IV abx -abx would be changed to PO Linezolid once being discharged Code(s): Z16.35 - RESISTANCE TO MULTIPLE ANTIMICROBIAL DRUGS (3) Neurogenic bladder Assessment/Plan: Chronic Pelaez catheter -needs a suprapubic catheter but refuses -seen by Urology Code(s): N31.9 - NEUROMUSCULAR DYSFUNCTION OF BLADDER, UNSPECIFIED (4) Paraplegia following spinal cord injury Code(s): G82.20 - PARAPLEGIA, UNSPECIFIED (5) UTI (urinary tract infection) with pyuria Assessment/Plan: -IV abx could be changed to PO once ready for discharge -ID on board -UC positive for Pseudomonas Code(s): N39.0 - URINARY TRACT INFECTION, SITE NOT SPECIFIED (6) Constipation Assessment/Plan: -GI on board -repeat KUB shows significant fecal impaction -patient aware, refuses stimulants or laxatives, only wants to use mineral oil enema Code(s): K59.00 - CONSTIPATION, UNSPECIFIED Qualifiers: Constipation type: unspecified constipation type Qualified Code(s): K59.00 - Constipation, unspecified; K59.00 - Constipation, unspecified (7) Anemia Assessment/Plan: -Venofer -Hematology on board -H/H stable Code(s): D64.9 - ANEMIA, UNSPECIFIED Qualifiers: Anemia type: iron deficiency Other causes of anemia: due to other specified chronic disease (8) Bilateral nephrolithiasis Assessment/Plan: -BL Ureteral stents placed this admission for BL hydronephrosis -needs percuatneous lithotripsy at a tertiary center, is refusing it Code(s): N20.0 - CALCULUS OF KIDNEY (9) Effusion of hip Assessment/Plan: -CT abd contrast showed large left hip and abd effusion -LLQ YA draining minimally -Fluid collected has creatinine of 3.21 -Seen by urology, no new work up recommended?, drain to be taken out? -called urology, awaiting call back Code(s): M25.459 - EFFUSION, UNSPECIFIED HIP Qualifiers: Laterality: left Qualified Code(s): M25.452 - Effusion, left hip; M25.452 - Effusion, left hip Assessment/Plan see problem list
[2016-12-25] MEDS: ZINC SULFATE 220 MG CAPSULE (FP) PO SCH ×2 (11:14→21:24)
[2016-12-25] MEDS: METHYL SALICYLATE/MENTHOL OINT 30 GM TUBE TP SCH ×2 (11:14→21:24)
[2016-12-25] MEDS: LINEZOLID 600 MG TABLET (RESTRICTED TO ID) PO SCH ×2 (11:14→21:24)
[2016-12-25] MEDS: MINERAL OIL 30 ML UNIT-DOSE CUP PO PRN ×2 (18:26→21:25)
[2016-12-25] MEDS: SENNOSIDES 8.6MG TABLET (FP) PO SCH (21:24)
--- NOTE | 2016-12-26 10:30 | PN ---
Progress Note, Physician Chief Complaint: Nephrolithiasis, decubitus ulcer, constipation History of Present Illness: NAD, in bed alert and oriented Still on IV Vancomycin Peritoneal fluid growing MRSA, E. feacalis- sensitive to Vanco, Linezolid and daptomycin Patient is refusing to go to rehab for daily IV abx He lives at home with his mother who is unable to do IV abx daily. Linezolid PO for 2 weeks could be considered, would discuss with ID His WBC is stable Peritoneal fluid creatinine is 3.21, there is likely urine component in it. Stool impaction, needs stimulants, refuses everything except mineral oil enemas. - Current Medication List Current Medications: Active Medications Acetaminophen (Tylenol -) 1,000 mg PO Q6H PRN PRN Reason: FEVER OR PAIN Last Admin: 12/02/16 18:13 Dose: 1,000 mg Diphenhydramine HCl (Benadryl Injection -) 50 mg IVPB BID PRN PRN Reason: FOR ITCHING Last Admin: 11/19/16 22:43 Dose: 50 mg IV Flush (Picc Line Flush) 8 ml IVPUSH PRN PRN PRN Reason: Protocol Last Admin: 11/23/16 11:00 Dose: 8 ml IV Flush (Triple Lumen Flush) 4 ml IVPUSH PRN PRN PRN Reason: Protocol Last Admin: 12/15/16 07:01 Dose: 4 ml Linezolid (Zyvox (Restricted To Id) -) 600 mg PO BID [facility] Last Admin: 12/25/16 21:24 Dose: 600 mg Methyl Salicylate (Osmar-Moreno -) 1 applic TP BID [facility] Last Admin: 12/25/16 21:24 Dose: Not Given Mineral Oil (Mineral Oil -) 30 ml PO BID PRN PRN Reason: CONSTIPATION Last Admin: 12/25/16 21:25 Dose: 30 ml Senna (Senna -) 1 tab PO HS [facility] Last Admin: 12/25/16 21:24 Dose: Not Given Simethicone (Mylicon -) 80 mg PO QID PRN Last Admin: 12/04/16 22:26 Dose: 80 mg Zinc Sulfate (Orazinc -) 220 mg PO BID [facility] Last Admin: 12/25/16 21:24 Dose: 220 mg - Objective Vital Signs: Vital Signs Temperature 98 F 12/25/16 22:00 Pulse Rate 77 12/25/16 22:00 Respiratory Rate 20 12/25/16 22:00 Blood Pressure 108/70 12/25/16 22:00 O2 Sat by Pulse Oximetry (%) 98 12/25/16 21:00 Constitutional: Yes: Well Nourished, No Distress, Calm Cardiovascular: Yes: Regular Rate and Rhythm Respiratory: Yes: Regular Gastrointestinal: Yes: Ascites, Hypoactive Bowel Sounds Extremities: Yes: WNL Edema: No Peripheral Pulses WNL: Yes Integumentary: Yes: Pressure Ulcer, Other (left hip drain) Neurological: Yes: Alert, Oriented Psychiatric: Yes: Alert, Oriented Labs: CBC, BMP 12/22/16 06:30 12/22/16 06:30 Problem List - Problems (1) Chronic indwelling Pelaez catheter Assessment/Plan: -needs a suprapubic catheter but refuses -seen by Urology Code(s): Z92.89 - PERSONAL HISTORY OF OTHER MEDICAL TREATMENT (2) Infection with multi-drug resistant microorganisms Assessment/Plan: -ID on board -on IV abx -abx would be changed to PO Linezolid once being discharged Code(s): Z16.35 - RESISTANCE TO MULTIPLE ANTIMICROBIAL DRUGS (3) Neurogenic bladder Assessment/Plan: Chronic Pelaez catheter -needs a suprapubic catheter but refuses -seen by Urology Code(s): N31.9 - NEUROMUSCULAR DYSFUNCTION OF BLADDER, UNSPECIFIED (4) Paraplegia following spinal cord injury Code(s): G82.20 - PARAPLEGIA, UNSPECIFIED (5) UTI (urinary tract infection) with pyuria Assessment/Plan: -IV abx could be changed to PO once ready for discharge -ID on board -UC positive for Pseudomonas Code(s): N39.0 - URINARY TRACT INFECTION, SITE NOT SPECIFIED (6) Constipation Assessment/Plan: -GI on board -repeat KUB shows significant fecal impaction -patient aware, refuses stimulants or laxatives, only wants to use mineral oil enema Code(s): K59.00 - CONSTIPATION, UNSPECIFIED Qualifiers: Constipation type: unspecified constipation type Qualified Code(s): K59.00 - Constipation, unspecified; K59.00 - Constipation, unspecified (7) Anemia Assessment/Plan: -Venofer -Hematology on board -H/H stable Code(s): D64.9 - ANEMIA, UNSPECIFIED Qualifiers: Anemia type: iron deficiency Other causes of anemia: due to other specified chronic disease (8) Bilateral nephrolithiasis Assessment/Plan: -BL Ureteral stents placed this admission for BL hydronephrosis -needs percuatneous lithotripsy at a tertiary center, is refusing it Code(s): N20.0 - CALCULUS OF KIDNEY (9) Effusion of hip Assessment/Plan: -CT abd contrast showed large left hip and abd effusion -LLQ YA draining minimally -Fluid collected has creatinine of 3.21 -Seen by urology, no new work up recommended?, drain to be taken out? drain still draining- 50 ml overnight, the area seems to be swelling again. -called urology multiple times to see if pyelogram is indicated, awaiting call back Code(s): M25.459 - EFFUSION, UNSPECIFIED HIP Qualifiers: Laterality: left Qualified Code(s): M25.452 - Effusion, left hip; M25.452 - Effusion, left hip
[2016-12-26] MEDS: ZINC SULFATE 220 MG CAPSULE (FP) PO SCH ×2 (10:59→22:42)
[2016-12-26] MEDS ORDERED: PT OWN MED DRAWER 7, Y5N ONE (11:00)
[2016-12-26] MEDS: METHYL SALICYLATE/MENTHOL OINT 30 GM TUBE TP SCH ×2 (11:02→22:43)
[2016-12-26] MEDS: LINEZOLID 600 MG TABLET (RESTRICTED TO ID) PO SCH ×2 (11:02→22:42)
[2016-12-26] MEDS: MINERAL OIL 30 ML UNIT-DOSE CUP PO PRN ×2 (11:02→22:43)
[2016-12-26] MEDS: SENNOSIDES 8.6MG TABLET (FP) PO SCH (22:42)
[2016-12-27] MEDS ORDERED: PT OWN MED DRAWER 7, Y5N ONE ×3 (10:48→20:06)
--- NOTE | 2016-12-27 11:09 | PN ---
Progress Note, Physician Chief Complaint: Nephrolithiasis, Constipation, Decubitus Ulcer History of Present Illness: Patient lying in bed, awake and alert, not in distress. - Current Medication List Current Medications: Active Medications Acetaminophen (Tylenol -) 1,000 mg PO Q6H PRN PRN Reason: FEVER OR PAIN Last Admin: 12/02/16 18:13 Dose: 1,000 mg Diphenhydramine HCl (Benadryl Injection -) 50 mg IVPB BID PRN PRN Reason: FOR ITCHING Last Admin: 11/19/16 22:43 Dose: 50 mg IV Flush (Picc Line Flush) 8 ml IVPUSH PRN PRN PRN Reason: Protocol Last Admin: 11/23/16 11:00 Dose: 8 ml IV Flush (Triple Lumen Flush) 4 ml IVPUSH PRN PRN PRN Reason: Protocol Last Admin: 12/15/16 07:01 Dose: 4 ml Linezolid (Zyvox (Restricted To Id) -) 600 mg PO BID [facility] Last Admin: 12/26/16 22:42 Dose: 600 mg Methyl Salicylate (Osmar-Moreno -) 1 applic TP BID [facility] Last Admin: 12/26/16 22:43 Dose: 1 applic Mineral Oil (Mineral Oil -) 30 ml PO BID PRN PRN Reason: CONSTIPATION Last Admin: 12/26/16 22:43 Dose: 30 ml Senna (Senna -) 1 tab PO HS [facility] Last Admin: 12/26/16 22:42 Dose: 1 tab Simethicone (Mylicon -) 80 mg PO QID PRN Last Admin: 12/04/16 22:26 Dose: 80 mg Zinc Sulfate (Orazinc -) 220 mg PO BID [facility] Last Admin: 12/26/16 22:42 Dose: 220 mg - Objective Vital Signs: Vital Signs Temperature 98.4 F 12/26/16 22:00 Pulse Rate 64 12/26/16 22:00 Respiratory Rate 18 12/26/16 22:00 Blood Pressure 113/67 12/26/16 22:00 O2 Sat by Pulse Oximetry (%) 97 12/26/16 21:00 Constitutional: Yes: No Distress, Calm HENT: Yes: Normocephalic Neck: Yes: Supple, Trachea Midline Cardiovascular: Yes: Regular Rate and Rhythm Respiratory: Yes: Regular, CTA Bilaterally Gastrointestinal: Yes: Ascites, Hypoactive Bowel Sounds Musculoskeletal: Yes: Other (paraphlegic) Edema: No Psychiatric: Yes: Alert, Oriented Labs: CBC, BMP 12/22/16 06:30 12/22/16 06:30 Problem List - Problems (1) Bilateral nephrolithiasis Code(s): N20.0 - CALCULUS OF KIDNEY (2) Chronic indwelling Pelaez catheter Code(s): Z92.89 - PERSONAL HISTORY OF OTHER MEDICAL TREATMENT (3) Effusion of hip Code(s): M25.459 - EFFUSION, UNSPECIFIED HIP Qualifiers: Laterality: left Qualified Code(s): M25.452 - Effusion, left hip; M25.452 - Effusion, left hip (4) Infection with multi-drug resistant microorganisms Code(s): Z16.35 - RESISTANCE TO MULTIPLE ANTIMICROBIAL DRUGS (5) Neurogenic bladder Code(s): N31.9 - NEUROMUSCULAR DYSFUNCTION OF BLADDER, UNSPECIFIED (6) Paraplegia following spinal cord injury Code(s): G82.20 - PARAPLEGIA, UNSPECIFIED (7) UTI (urinary tract infection) Code(s): N39.0 - URINARY TRACT INFECTION, SITE NOT SPECIFIED Qualifiers: Urinary tract infection type: site unspecified Hematuria presence: without hematuria Qualified Code(s): N39.0 - Urinary tract infection, site not specified; N39.0 - Urinary tract infection, site not specified; R31.9 - Hematuria, unspecified; R31.9 - Hematuria, unspecified (8) Anemia Code(s): D64.9 - ANEMIA, UNSPECIFIED Qualifiers: Anemia type: iron deficiency Other causes of anemia: due to other specified chronic disease (9) Constipation Code(s): K59.00 - CONSTIPATION, UNSPECIFIED Qualifiers: Constipation type: unspecified constipation type Qualified Code(s): K59.00 - Constipation, unspecified; K59.00 - Constipation, unspecified Assessment/Plan Problem List - Problems (1) Chronic indwelling Pelaez catheter Assessment/Plan: -Patient still refusing suprapubic catheter -seen by Urology Code(s): Z92.89 - PERSONAL HISTORY OF OTHER MEDICAL TREATMENT (2) Infection with multi-drug resistant microorganisms Assessment/Plan: -ID on board -on IV abx (Linezolid) Code(s): Z16.35 - RESISTANCE TO MULTIPLE ANTIMICROBIAL DRUGS (3) Neurogenic bladder Assessment/Plan: -Chronic Pelaez catheter -Refused suprapubic catheter -seen by Urology Code(s): N31.9 - NEUROMUSCULAR DYSFUNCTION OF BLADDER, UNSPECIFIED (4) Paraplegia following spinal cord injury Assessment/Plan: -DVT prophylaxis Code(s): G82.20 - PARAPLEGIA, UNSPECIFIED (5) UTI (urinary tract infection) with pyuria Assessment/Plan: -ID on board -On IV antibiotic (Linezolid) -Awaiting final result for VALENTE prep and fungal culture Code(s): N39.0 - URINARY TRACT INFECTION, SITE NOT SPECIFIED (6) Constipation Assessment/Plan: -GI on board -repeat KUB shows significant fecal impaction -patient aware, refuses stimulants or laxatives, only wants to use mineral oil enema Code(s): K59.00 - CONSTIPATION, UNSPECIFIED Qualifiers: Constipation type: unspecified constipation type Qualified Code(s): K59.00 - Constipation, unspecified; K59.00 - Constipation, unspecified (7) Anemia Assessment/Plan: -Venofer -Hematology on board -H/H stable 12/22 --> 9.7/31.0 Code(s): D64.9 - ANEMIA, UNSPECIFIED Qualifiers: Anemia type: iron deficiency Other causes of anemia: due to other specified chronic disease (8) Bilateral nephrolithiasis Assessment/Plan: -BL Ureteral stents placed this admission for BL hydronephrosis -needs percuatneous lithotripsy at a tertiary center, is refusing it Code(s): N20.0 - CALCULUS OF KIDNEY (9) Effusion of hip Assessment/Plan: -CT abd contrast showed large left hip and abd effusion -LLQ YA draining minimally Code(s): M25.459 - EFFUSION, UNSPECIFIED HIP Qualifiers: Laterality: left Qualified Code(s): M25.452 - Effusion, left hip; M25.452 - Effusion, left hip
[2016-12-27] MEDS: LINEZOLID 600 MG TABLET (RESTRICTED TO ID) PO SCH ×2 (11:11→22:00)
[2016-12-27] MEDS: ZINC SULFATE 220 MG CAPSULE (FP) PO SCH ×2 (11:44→22:00)
[2016-12-27] MEDS: METHYL SALICYLATE/MENTHOL OINT 30 GM TUBE TP SCH ×2 (11:44→22:00)
[2016-12-27] MEDS: MINERAL OIL 30 ML UNIT-DOSE CUP PO PRN (11:44)
[2016-12-27] MEDS: HEPARIN NA (PORCINE) 5,000 UNITS/ML 1ML VIAL SQ SCH ×2 (15:09→22:00)
[2016-12-27] MEDS: SENNOSIDES 8.6MG TABLET (FP) PO SCH (22:00)
[2016-12-28] MEDS ORDERED: PT OWN MED DRAWER 7, Y5N ONE ×2 (09:59→21:01)
[2016-12-28] MEDS: ZINC SULFATE 220 MG CAPSULE (FP) PO SCH ×2 (10:00→23:37)
[2016-12-28] MEDS: LINEZOLID 600 MG TABLET (RESTRICTED TO ID) PO SCH ×2 (10:00→23:37)
[2016-12-28] MEDS: HEPARIN NA (PORCINE) 5,000 UNITS/ML 1ML VIAL SQ SCH ×2 (10:01→23:36)
[2016-12-28] MEDS: MINERAL OIL 30 ML UNIT-DOSE CUP PO PRN ×2 (10:01→23:37)
[2016-12-28] MEDS: METHYL SALICYLATE/MENTHOL OINT 30 GM TUBE TP SCH ×2 (10:02→23:36)
--- NOTE | 2016-12-28 10:58 | PN ---
Progress Note, Physician Chief Complaint: Nephrolithiasis, Constipation, Decubitus Ulcer History of Present Illness: Patient lying in bed, awake and alert, not in distress. - Current Medication List Current Medications: Active Medications Acetaminophen (Tylenol -) 1,000 mg PO Q6H PRN PRN Reason: FEVER OR PAIN Last Admin: 12/02/16 18:13 Dose: 1,000 mg Diphenhydramine HCl (Benadryl Injection -) 50 mg IVPB BID PRN PRN Reason: FOR ITCHING Last Admin: 11/19/16 22:43 Dose: 50 mg Heparin Sodium (Porcine) (Heparin -) 5,000 unit SQ BID [facility] Last Admin: 12/28/16 10:01 Dose: Not Given IV Flush (Picc Line Flush) 8 ml IVPUSH PRN PRN PRN Reason: Protocol Last Admin: 11/23/16 11:00 Dose: 8 ml IV Flush (Triple Lumen Flush) 4 ml IVPUSH PRN PRN PRN Reason: Protocol Last Admin: 12/15/16 07:01 Dose: 4 ml Linezolid (Zyvox (Restricted To Id) -) 600 mg PO BID [facility] Last Admin: 12/28/16 10:00 Dose: 600 mg Methyl Salicylate (Osmar-Moreno -) 1 applic TP BID [facility] Last Admin: 12/28/16 10:02 Dose: Not Given Mineral Oil (Mineral Oil -) 30 ml PO BID PRN PRN Reason: CONSTIPATION Last Admin: 12/28/16 10:01 Dose: 30 ml Senna (Senna -) 1 tab PO HS [facility] Last Admin: 12/27/16 22:00 Dose: Not Given Simethicone (Mylicon -) 80 mg PO QID PRN Last Admin: 12/04/16 22:26 Dose: 80 mg Zinc Sulfate (Orazinc -) 220 mg PO BID [facility] Last Admin: 12/28/16 10:00 Dose: 220 mg - Objective Vital Signs: Vital Signs Temperature 98.0 F 12/27/16 18:00 Pulse Rate 69 12/27/16 18:00 Respiratory Rate 20 12/27/16 21:00 Blood Pressure 101/60 12/27/16 18:00 O2 Sat by Pulse Oximetry (%) 97 12/27/16 21:00 Constitutional: Yes: No Distress, Calm Eyes: Yes: EOM Intact HENT: Yes: Normocephalic Neck: Yes: Supple, Trachea Midline Respiratory: Yes: Regular, CTA Bilaterally Gastrointestinal: Yes: Ascites, Distention, Hypoactive Bowel Sounds Edema: No Neurological: Yes: Alert, Oriented Labs: CBC, BMP 12/22/16 06:30 12/22/16 06:30 Problem List - Problems (1) Bilateral nephrolithiasis Code(s): N20.0 - CALCULUS OF KIDNEY (2) Chronic indwelling Pelaez catheter Code(s): Z92.89 - PERSONAL HISTORY OF OTHER MEDICAL TREATMENT (3) Effusion of hip Code(s): M25.459 - EFFUSION, UNSPECIFIED HIP Qualifiers: Laterality: left Qualified Code(s): M25.452 - Effusion, left hip; M25.452 - Effusion, left hip (4) Infection with multi-drug resistant microorganisms Code(s): Z16.35 - RESISTANCE TO MULTIPLE ANTIMICROBIAL DRUGS (5) Neurogenic bladder Code(s): N31.9 - NEUROMUSCULAR DYSFUNCTION OF BLADDER, UNSPECIFIED (6) Paraplegia following spinal cord injury Code(s): G82.20 - PARAPLEGIA, UNSPECIFIED (7) UTI (urinary tract infection) Code(s): N39.0 - URINARY TRACT INFECTION, SITE NOT SPECIFIED Qualifiers: Urinary tract infection type: site unspecified Hematuria presence: without hematuria Qualified Code(s): N39.0 - Urinary tract infection, site not specified; N39.0 - Urinary tract infection, site not specified; R31.9 - Hematuria, unspecified; R31.9 - Hematuria, unspecified (8) Anemia Code(s): D64.9 - ANEMIA, UNSPECIFIED Qualifiers: Anemia type: iron deficiency Other causes of anemia: due to other specified chronic disease (9) Constipation Code(s): K59.00 - CONSTIPATION, UNSPECIFIED Qualifiers: Constipation type: unspecified constipation type Qualified Code(s): K59.00 - Constipation, unspecified; K59.00 - Constipation, unspecified Assessment/Plan Problem List - Problems (1) Chronic indwelling Pelaez catheter Assessment/Plan: -Patient still refusing suprapubic catheter, explained the advantage of suprapubic catheter -seen by Urology Code(s): Z92.89 - PERSONAL HISTORY OF OTHER MEDICAL TREATMENT (2) Infection with multi-drug resistant microorganisms Assessment/Plan: -ID on board -on IV abx (Linezolid) Code(s): Z16.35 - RESISTANCE TO MULTIPLE ANTIMICROBIAL DRUGS (3) Neurogenic bladder Assessment/Plan: -Chronic Pelaez catheter -Refused suprapubic catheter -seen by Urology Code(s): N31.9 - NEUROMUSCULAR DYSFUNCTION OF BLADDER, UNSPECIFIED (4) Paraplegia following spinal cord injury Assessment/Plan: -DVT prophylaxis Code(s): G82.20 - PARAPLEGIA, UNSPECIFIED (5) UTI (urinary tract infection) with pyuria Assessment/Plan: -ID on board -On IV antibiotic (Linezolid) -Awaiting final result for VALENTE prep and fungal culture Code(s): N39.0 - URINARY TRACT INFECTION, SITE NOT SPECIFIED (6) Constipation Assessment/Plan: -GI on board -repeat KUB shows significant fecal impaction -patient aware, refuses stimulants or laxatives, only wants to use mineral oil enema Code(s): K59.00 - CONSTIPATION, UNSPECIFIED Qualifiers: Constipation type: unspecified constipation type Qualified Code(s): K59.00 - Constipation, unspecified; K59.00 - Constipation, unspecified (7) Anemia Assessment/Plan: -Venofer -Hematology on board -H/H stable 12/22 --> 9.7/31.0 -repeat labs in AM Code(s): D64.9 - ANEMIA, UNSPECIFIED Qualifiers: Anemia type: iron deficiency Other causes of anemia: due to other specified chronic disease (8) Bilateral nephrolithiasis Assessment/Plan: -BL Ureteral stents placed this admission for BL hydronephrosis -explained the need for percuatneous lithotripsy at a tertiary center, patient refused Code(s): N20.0 - CALCULUS OF KIDNEY (9) Effusion of hip Assessment/Plan: -CT abd contrast showed large left hip and abd effusion -LLQ YA draining minimally Code(s): M25.459 - EFFUSION, UNSPECIFIED HIP Qualifiers: Laterality: left Qualified Code(s): M25.452 - Effusion, left hip; M25.452 - Effusion, left hip
[2016-12-28] MEDS: SENNOSIDES 8.6MG TABLET (FP) PO SCH (23:37)
[2016-12-29 07:26] LABS: BASOPHIL 0.6 % (0-2.0); EOSINOPHIL 6.4 % (0-4.5); MCHC 31.5 g/dl (32.0-35.9); MEAN CELL VOLUME 82.3 fl (80-96); MEAN PLT VOLUME 7.7 fl (7.5-11.1); NEUTROPHILS 54.4 % (42.8-82.8); PLATELET COUNT 211 K/MM3 (134-434); RDW 28.3 % (11.9-15.9); WHITE BLOOD COUNT 5.3 K/mm3 (4.0-10.0)
[2016-12-29 07:52] LABS: ANION GAP 7 (8-16); CO2 29 mmol/L (21-32); CREATININE 0.7 mg/dL (0.7-1.3); GLUCOSE,RANDOM 77 mg/dL (74-106)
[2016-12-29] MEDS: METHYL SALICYLATE/MENTHOL OINT 30 GM TUBE TP SCH ×2 (11:00→23:00)
[2016-12-29] MEDS: LINEZOLID 600 MG TABLET (RESTRICTED TO ID) PO SCH ×2 (11:01→22:50)
[2016-12-29] MEDS: ZINC SULFATE 220 MG CAPSULE (FP) PO SCH ×2 (11:02→22:50)
[2016-12-29] MEDS: HEPARIN NA (PORCINE) 5,000 UNITS/ML 1ML VIAL SQ SCH ×2 (11:02→22:51)
--- NOTE | 2016-12-29 16:15 | PN ---
Progress Note, Physician Chief Complaint: Nephrolithiasis, decubitus ulcer, constipation History of Present Illness: NAD, in bed alert and oriented Still on IV Vancomycin Peritoneal fluid growing MRSA, E. feacalis- sensitive to Vanco, Linezolid and daptomycin Patient is refusing to go to rehab for daily IV abx He lives at home with his mother who is unable to do IV abx daily. Linezolid PO for 2 weeks could be considered, would discuss with ID His WBC is stable Peritoneal fluid creatinine is 3.21, there is likely urine component in it. Stool impaction, needs stimulants, refuses everything except mineral oil enemas. - Current Medication List Current Medications: Active Medications Acetaminophen (Tylenol -) 1,000 mg PO Q6H PRN PRN Reason: FEVER OR PAIN Last Admin: 12/02/16 18:13 Dose: 1,000 mg Diphenhydramine HCl (Benadryl Injection -) 50 mg IVPB BID PRN PRN Reason: FOR ITCHING Last Admin: 11/19/16 22:43 Dose: 50 mg Heparin Sodium (Porcine) (Heparin -) 5,000 unit SQ BID [facility] Last Admin: 12/29/16 11:02 Dose: Not Given IV Flush (Picc Line Flush) 8 ml IVPUSH PRN PRN PRN Reason: Protocol Last Admin: 11/23/16 11:00 Dose: 8 ml IV Flush (Triple Lumen Flush) 4 ml IVPUSH PRN PRN PRN Reason: Protocol Last Admin: 12/15/16 07:01 Dose: 4 ml Linezolid (Zyvox (Restricted To Id) -) 600 mg PO BID [facility] Last Admin: 12/29/16 11:01 Dose: 600 mg Methyl Salicylate (Osmar-Moreno -) 1 applic TP BID [facility] Last Admin: 12/29/16 11:00 Dose: 1 applic Mineral Oil (Mineral Oil -) 30 ml PO BID PRN PRN Reason: CONSTIPATION Last Admin: 12/28/16 23:37 Dose: 30 ml Senna (Senna -) 1 tab PO HS [facility] Last Admin: 12/28/16 23:37 Dose: Not Given Simethicone (Mylicon -) 80 mg PO QID PRN Last Admin: 12/04/16 22:26 Dose: 80 mg Zinc Sulfate (Orazinc -) 220 mg PO BID [facility] Last Admin: 12/29/16 11:02 Dose: 220 mg - Objective Vital Signs: Vital Signs Temperature 97.2 F L 12/29/16 14:23 Pulse Rate 68 12/29/16 14:23 Respiratory Rate 20 12/29/16 14:23 Blood Pressure 103/74 12/29/16 14:23 O2 Sat by Pulse Oximetry (%) 97 12/28/16 21:00 Constitutional: Yes: Well Nourished, No Distress, Calm Cardiovascular: Yes: Regular Rate and Rhythm Respiratory: Yes: Regular Gastrointestinal: Yes: Ascites, Hypoactive Bowel Sounds Musculoskeletal: Yes: WNL Extremities: Yes: WNL Edema: Yes (left hip) Wound/Incision: Yes: Dressing Dry and Intact, Other (drain on left hip-draining small amount of drainage) Neurological: Yes: Alert, Oriented Psychiatric: Yes: Alert, Oriented Labs: CBC, BMP 12/29/16 05:35 12/29/16 05:35 Problem List - Problems (1) Chronic indwelling Pelaez catheter Assessment/Plan: -needs a suprapubic catheter but refuses -seen by Urology Code(s): Z92.89 - PERSONAL HISTORY OF OTHER MEDICAL TREATMENT (2) Infection with multi-drug resistant microorganisms Assessment/Plan: -ID on board -on IV abx -abx would be changed to PO Linezolid once being discharged Code(s): Z16.35 - RESISTANCE TO MULTIPLE ANTIMICROBIAL DRUGS (3) Neurogenic bladder Assessment/Plan: Chronic Pelaez catheter -needs a suprapubic catheter but refuses -seen by Urology Code(s): N31.9 - NEUROMUSCULAR DYSFUNCTION OF BLADDER, UNSPECIFIED (4) Paraplegia following spinal cord injury Code(s): G82.20 - PARAPLEGIA, UNSPECIFIED (5) UTI (urinary tract infection) with pyuria Assessment/Plan: -IV abx could be changed to PO once ready for discharge -ID on board -UC positive for Pseudomonas Code(s): N39.0 - URINARY TRACT INFECTION, SITE NOT SPECIFIED (6) Constipation Assessment/Plan: -GI on board -repeat KUB shows significant fecal impaction -patient aware, refuses stimulants or laxatives, only wants to use mineral oil enema Code(s): K59.00 - CONSTIPATION, UNSPECIFIED Qualifiers: Constipation type: unspecified constipation type Qualified Code(s): K59.00 - Constipation, unspecified; K59.00 - Constipation, unspecified (7) Anemia Assessment/Plan: -Venofer -Hematology on board -H/H stable Code(s): D64.9 - ANEMIA, UNSPECIFIED Qualifiers: Anemia type: iron deficiency Other causes of anemia: due to other specified chronic disease (8) Bilateral nephrolithiasis Assessment/Plan: -BL Ureteral stents placed this admission for BL hydronephrosis -needs percuatneous lithotripsy at a tertiary center, is refusing it Code(s): N20.0 - CALCULUS OF KIDNEY (9) Effusion of hip Assessment/Plan: -CT abd contrast showed large left hip and abd effusion -LLQ YA draining minimally -Fluid collected has creatinine of 3.21 -Seen by urology, no new work up recommended?, drain to be taken out? drain still draining- 50 ml overnight, the area seems to be swelling again. -called urology multiple times -Spoke to IR- suggested to do either retrograde Code(s): M25.459 - EFFUSION, UNSPECIFIED HIP Qualifiers: Laterality: left Qualified Code(s): M25.452 - Effusion, left hip; M25.452 - Effusion, left hip Assessment/Plan see problem list
[2016-12-29] MEDS: MINERAL OIL 30 ML UNIT-DOSE CUP PO PRN (18:21)
[2016-12-29] MEDS ORDERED: PT OWN MED DRAWER 7, Y5N ONE (22:45)
[2016-12-29] MEDS: SENNOSIDES 8.6MG TABLET (FP) PO SCH (22:50)
[2016-12-30] MEDS ORDERED: PT OWN MED DRAWER 7, Y5N ONE ×2 (10:35→11:32)
--- NOTE | 2016-12-30 10:49 | PN ---
Progress Note, Physician Chief Complaint: Nephrolithiasis, decubitus ulcer, constipation History of Present Illness: NAD, in bed alert and oriented on oral linezolid have not been able to get in touch with urology even after several attempts, left message with his office staff. Stool impaction, needs stimulants, refuses everything except mineral oil enemas. - Current Medication List Current Medications: Active Medications Acetaminophen (Tylenol -) 1,000 mg PO Q6H PRN PRN Reason: FEVER OR PAIN Last Admin: 12/02/16 18:13 Dose: 1,000 mg Diphenhydramine HCl (Benadryl Injection -) 50 mg IVPB BID PRN PRN Reason: FOR ITCHING Last Admin: 11/19/16 22:43 Dose: 50 mg Heparin Sodium (Porcine) (Heparin -) 5,000 unit SQ BID [facility] Last Admin: 12/29/16 22:51 Dose: Not Given IV Flush (Picc Line Flush) 8 ml IVPUSH PRN PRN PRN Reason: Protocol Last Admin: 11/23/16 11:00 Dose: 8 ml IV Flush (Triple Lumen Flush) 4 ml IVPUSH PRN PRN PRN Reason: Protocol Last Admin: 12/15/16 07:01 Dose: 4 ml Linezolid (Zyvox (Restricted To Id) -) 600 mg PO BID [facility] Last Admin: 12/29/16 22:50 Dose: 600 mg Methyl Salicylate (Osmar-Moreno -) 1 applic TP BID [facility] Last Admin: 12/29/16 23:00 Dose: Not Given Mineral Oil (Mineral Oil -) 30 ml PO BID PRN PRN Reason: CONSTIPATION Last Admin: 12/29/16 18:21 Dose: 30 ml Senna (Senna -) 1 tab PO HS [facility] Last Admin: 12/29/16 22:50 Dose: Not Given Simethicone (Mylicon -) 80 mg PO QID PRN Last Admin: 12/04/16 22:26 Dose: 80 mg Zinc Sulfate (Orazinc -) 220 mg PO BID [facility] Last Admin: 12/29/16 22:50 Dose: 220 mg - Objective Vital Signs: Vital Signs Temperature 97.7 F 12/29/16 22:00 Pulse Rate 70 12/29/16 22:00 Respiratory Rate 18 12/29/16 22:00 Blood Pressure 123/75 12/29/16 22:00 O2 Sat by Pulse Oximetry (%) 95 12/29/16 21:00 Constitutional: Yes: Well Nourished, No Distress, Calm Cardiovascular: Yes: Regular Rate and Rhythm Respiratory: Yes: Regular Gastrointestinal: Yes: Ascites, Hypoactive Bowel Sounds Musculoskeletal: Yes: WNL Extremities: Yes: WNL Edema: No Peripheral Pulses WNL: Yes Neurological: Yes: Alert, Oriented Psychiatric: Yes: Alert, Oriented Labs: CBC, BMP 12/29/16 05:35 12/29/16 05:35 Problem List - Problems (1) Chronic indwelling Hull catheter Assessment/Plan: -needs a suprapubic catheter but refuses -seen by Urology Code(s): Z92.89 - PERSONAL HISTORY OF OTHER MEDICAL TREATMENT (2) Infection with multi-drug resistant microorganisms Assessment/Plan: -ID on board -on PO abx linezolid Code(s): Z16.35 - RESISTANCE TO MULTIPLE ANTIMICROBIAL DRUGS (3) Neurogenic bladder Assessment/Plan: Chronic Hull catheter -needs a suprapubic catheter but refuses -seen by Urology Code(s): N31.9 - NEUROMUSCULAR DYSFUNCTION OF BLADDER, UNSPECIFIED (4) Paraplegia following spinal cord injury Code(s): G82.20 - PARAPLEGIA, UNSPECIFIED (5) UTI (urinary tract infection) with pyuria Assessment/Plan: -po abx -chronic hull catheter Code(s): N39.0 - URINARY TRACT INFECTION, SITE NOT SPECIFIED (6) Constipation Assessment/Plan: -GI on board -repeat KUB shows significant fecal impaction -patient aware, refuses stimulants or laxatives, only wants to use mineral oil enema Code(s): K59.00 - CONSTIPATION, UNSPECIFIED Qualifiers: Constipation type: unspecified constipation type Qualified Code(s): K59.00 - Constipation, unspecified; K59.00 - Constipation, unspecified (7) Anemia Assessment/Plan: -Venofer -Hematology on board -H/H stable Code(s): D64.9 - ANEMIA, UNSPECIFIED Qualifiers: Anemia type: iron deficiency Other causes of anemia: due to other specified chronic disease (8) Bilateral nephrolithiasis Assessment/Plan: -BL Ureteral stents placed this admission for BL hydronephrosis -needs percuatneous lithotripsy at a tertiary center, is refusing it Code(s): N20.0 - CALCULUS OF KIDNEY (9) Effusion of hip Assessment/Plan: -CT abd contrast showed large left hip and abd effusion -LLQ YA still draining minimally -Fluid collected has creatinine of 3.21 -called urology multiple times -Spoke to radiology, would order CT abd with and w/o contrast with delayed phase study Code(s): M25.459 - EFFUSION, UNSPECIFIED HIP Qualifiers: Laterality: left Qualified Code(s): M25.452 - Effusion, left hip; M25.452 - Effusion, left hip Assessment/Plan see problem list
[2016-12-30] MEDS: HEPARIN NA (PORCINE) 5,000 UNITS/ML 1ML VIAL SQ SCH ×2 (11:06→21:13)
[2016-12-30] MEDS: ZINC SULFATE 220 MG CAPSULE (FP) PO SCH ×2 (11:13→21:13)
[2016-12-30] MEDS: MINERAL OIL 30 ML UNIT-DOSE CUP PO PRN ×2 (11:14→21:14)
[2016-12-30] MEDS: LINEZOLID 600 MG TABLET (RESTRICTED TO ID) PO SCH ×2 (11:33→21:13)
[2016-12-30] MEDS: METHYL SALICYLATE/MENTHOL OINT 30 GM TUBE TP SCH ×2 (12:45→21:13)
--- NOTE | 2016-12-30 13:32 | PN ---
Progress Note (short form) - Note Progress Note: PT SEEN AND EXAMINED ON THURSDAY [facility] CATH CHANGED AND BLADDER IRRIGATION PT IS UROLOGICAL STABLE FOR D/C WILL NEED TRANSFER TO TERTIARY CENTER. 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 AGAIN PT CAN BE D/LENA UROLOGICALLY
[2016-12-30] MEDS: SENNOSIDES 8.6MG TABLET (FP) PO SCH (21:14)
[2016-12-31] MEDS: ZINC SULFATE 220 MG CAPSULE (FP) PO SCH ×2 (11:06→21:56)
[2016-12-31] MEDS: LINEZOLID 600 MG TABLET (RESTRICTED TO ID) PO SCH ×2 (11:06→21:56)
[2016-12-31] MEDS: HEPARIN NA (PORCINE) 5,000 UNITS/ML 1ML VIAL SQ SCH ×2 (11:07→21:54)
[2016-12-31] MEDS: METHYL SALICYLATE/MENTHOL OINT 30 GM TUBE TP SCH ×2 (11:07→21:54)
[2016-12-31] MEDS: MINERAL OIL 30 ML UNIT-DOSE CUP PO PRN ×2 (11:47→21:56)
--- NOTE | 2016-12-31 14:02 | PN ---
Progress Note, Physician Chief Complaint: Nephrolithiasis, decubitus ulcer, constipation History of Present Illness: NAD, in bed alert and oriented on oral linezolid spoke to Urology who suggested, patient needs to be transferred to tertiary care center. Pt refuses. Spoke to patient's mother who cannot take care of the patient at home with hemipelvis drain Stool impaction, needs stimulants, refuses everything except mineral oil enemas. - Current Medication List Current Medications: Active Medications Acetaminophen (Tylenol -) 1,000 mg PO Q6H PRN PRN Reason: FEVER OR PAIN Last Admin: 12/02/16 18:13 Dose: 1,000 mg Diphenhydramine HCl (Benadryl Injection -) 50 mg IVPB BID PRN PRN Reason: FOR ITCHING Last Admin: 11/19/16 22:43 Dose: 50 mg Heparin Sodium (Porcine) (Heparin -) 5,000 unit SQ BID [facility] Last Admin: 12/31/16 11:07 Dose: Not Given IV Flush (Picc Line Flush) 8 ml IVPUSH PRN PRN PRN Reason: Protocol Last Admin: 11/23/16 11:00 Dose: 8 ml IV Flush (Triple Lumen Flush) 4 ml IVPUSH PRN PRN PRN Reason: Protocol Last Admin: 12/15/16 07:01 Dose: 4 ml Linezolid (Zyvox (Restricted To Id) -) 600 mg PO BID [facility] Last Admin: 12/31/16 11:06 Dose: 600 mg Methyl Salicylate (Osmar-Moreno -) 1 applic TP BID [facility] Last Admin: 12/31/16 11:07 Dose: Not Given Mineral Oil (Mineral Oil -) 30 ml PO BID PRN PRN Reason: CONSTIPATION Last Admin: 12/31/16 11:47 Dose: 30 ml Senna (Senna -) 1 tab PO HS [facility] Last Admin: 12/30/16 21:14 Dose: Not Given Simethicone (Mylicon -) 80 mg PO QID PRN Last Admin: 12/04/16 22:26 Dose: 80 mg Zinc Sulfate (Orazinc -) 220 mg PO BID [facility] Last Admin: 12/31/16 11:06 Dose: 220 mg - Objective Vital Signs: Vital Signs Temperature 97.8 F 12/31/16 06:00 Pulse Rate 75 12/31/16 06:00 Respiratory Rate 20 12/31/16 06:00 Blood Pressure 105/71 12/31/16 06:00 O2 Sat by Pulse Oximetry (%) 95 12/30/16 21:00 Constitutional: Yes: Well Nourished, No Distress, Calm Cardiovascular: Yes: Regular Rate and Rhythm Respiratory: Yes: Regular Gastrointestinal: Yes: Ascites, Hypoactive Bowel Sounds Musculoskeletal: Yes: WNL Extremities: Yes: WNL Edema: No Peripheral Pulses WNL: Yes Wound/Incision: Yes: Dressing Dry and Intact, Draining (left hemipelvis drain) Neurological: Yes: Alert, Oriented Psychiatric: Yes: Alert, Oriented Labs: CBC, BMP 12/29/16 05:35 12/29/16 05:35 Problem List - Problems (1) Chronic indwelling Hull catheter Assessment/Plan: -needs a suprapubic catheter but refuses -seen by Urology Code(s): Z92.89 - PERSONAL HISTORY OF OTHER MEDICAL TREATMENT (2) Infection with multi-drug resistant microorganisms Assessment/Plan: -ID on board -on PO abx linezolid Code(s): Z16.35 - RESISTANCE TO MULTIPLE ANTIMICROBIAL DRUGS (3) Neurogenic bladder Assessment/Plan: Chronic Hull catheter -needs a suprapubic catheter but refuses -seen by Urology Code(s): N31.9 - NEUROMUSCULAR DYSFUNCTION OF BLADDER, UNSPECIFIED (4) Paraplegia following spinal cord injury Code(s): G82.20 - PARAPLEGIA, UNSPECIFIED (5) UTI (urinary tract infection) with pyuria Assessment/Plan: -po abx -chronic hull catheter Code(s): N39.0 - URINARY TRACT INFECTION, SITE NOT SPECIFIED (6) Constipation Assessment/Plan: -GI on board -repeat KUB shows significant fecal impaction -patient aware, refuses stimulants or laxatives, only wants to use mineral oil enema Code(s): K59.00 - CONSTIPATION, UNSPECIFIED Qualifiers: Constipation type: unspecified constipation type Qualified Code(s): K59.00 - Constipation, unspecified; K59.00 - Constipation, unspecified (7) Anemia Assessment/Plan: -Venofer -Hematology on board -H/H stable Code(s): D64.9 - ANEMIA, UNSPECIFIED Qualifiers: Anemia type: iron deficiency Other causes of anemia: due to other specified chronic disease (8) Bilateral nephrolithiasis Assessment/Plan: -BL Ureteral stents placed this admission for BL hydronephrosis -needs percuatneous lithotripsy at a tertiary center, is refusing it Code(s): N20.0 - CALCULUS OF KIDNEY (9) Effusion of hip Assessment/Plan: -CT abd contrast showed large left hip and abd effusion -LLQ YA still draining minimally -Fluid collected has creatinine of 3.21 -CT abd with and w/o contrast with delayed phase study pending, the IV infiltrated yesterday Code(s): M25.459 - EFFUSION, UNSPECIFIED HIP Qualifiers: Laterality: left Qualified Code(s): M25.452 - Effusion, left hip; M25.452 - Effusion, left hip Assessment/Plan see problem list
[2016-12-31] MEDS ORDERED: PT OWN MED DRAWER 7, Y5N ONE (20:24)
[2016-12-31] MEDS: SENNOSIDES 8.6MG TABLET (FP) PO SCH (21:55)
--- NOTE | 2017-01-01 09:39 | PN ---
Progress Note, Physician Chief Complaint: Nephrolithiasis, decubitus ulcer, constipation History of Present Illness: NAD, in bed alert and oriented on oral linezolid spoke to Urology who suggested, patient needs to be transferred to tertiary care center. Pt refuses. Spoke to patient's mother who cannot take care of the patient at home with hemipelvis drain Stool impaction, needs stimulants, refuses everything except mineral oil enemas. CT abd/pelvis results pending - Current Medication List Current Medications: Active Medications Acetaminophen (Tylenol -) 1,000 mg PO Q6H PRN PRN Reason: FEVER OR PAIN Last Admin: 12/02/16 18:13 Dose: 1,000 mg Diphenhydramine HCl (Benadryl Injection -) 50 mg IVPB BID PRN PRN Reason: FOR ITCHING Last Admin: 11/19/16 22:43 Dose: 50 mg Heparin Sodium (Porcine) (Heparin -) 5,000 unit SQ BID [facility] Last Admin: 12/31/16 21:54 Dose: Not Given IV Flush (Picc Line Flush) 8 ml IVPUSH PRN PRN PRN Reason: Protocol Last Admin: 11/23/16 11:00 Dose: 8 ml IV Flush (Triple Lumen Flush) 4 ml IVPUSH PRN PRN PRN Reason: Protocol Last Admin: 12/15/16 07:01 Dose: 4 ml Linezolid (Zyvox (Restricted To Id) -) 600 mg PO BID [facility] Last Admin: 12/31/16 21:56 Dose: 600 mg Methyl Salicylate (Osmar-Moreno -) 1 applic TP BID [facility] Last Admin: 12/31/16 21:54 Dose: Not Given Mineral Oil (Mineral Oil -) 30 ml PO BID PRN PRN Reason: CONSTIPATION Last Admin: 12/31/16 21:56 Dose: 30 ml Senna (Senna -) 1 tab PO HS [facility] Last Admin: 12/31/16 21:55 Dose: Not Given Simethicone (Mylicon -) 80 mg PO QID PRN Last Admin: 12/04/16 22:26 Dose: 80 mg Zinc Sulfate (Orazinc -) 220 mg PO BID [facility] Last Admin: 12/31/16 21:56 Dose: 220 mg - Objective Vital Signs: Vital Signs Temperature 97.6 F 12/31/16 18:37 Pulse Rate 73 12/31/16 18:37 Respiratory Rate 18 12/31/16 21:00 Blood Pressure 97/68 12/31/16 18:37 O2 Sat by Pulse Oximetry (%) 95 12/31/16 21:00 Constitutional: Yes: Well Nourished, No Distress, Calm Cardiovascular: Yes: Regular Rate and Rhythm Respiratory: Yes: Regular Gastrointestinal: Yes: Abdomen, Obese, Hypoactive Bowel Sounds Edema: No Peripheral Pulses WNL: Yes Neurological: Yes: Alert, Oriented Psychiatric: Yes: Alert, Oriented Labs: CBC, BMP 12/29/16 05:35 12/29/16 05:35 Problem List - Problems (1) Chronic indwelling Hull catheter Assessment/Plan: -needs a suprapubic catheter but refuses -seen by Urology Code(s): Z92.89 - PERSONAL HISTORY OF OTHER MEDICAL TREATMENT (2) Infection with multi-drug resistant microorganisms Assessment/Plan: -ID on board -on PO abx linezolid Code(s): Z16.35 - RESISTANCE TO MULTIPLE ANTIMICROBIAL DRUGS (3) Neurogenic bladder Assessment/Plan: Chronic Hull catheter -needs a suprapubic catheter but refuses -seen by Urology Code(s): N31.9 - NEUROMUSCULAR DYSFUNCTION OF BLADDER, UNSPECIFIED (4) Paraplegia following spinal cord injury Code(s): G82.20 - PARAPLEGIA, UNSPECIFIED (5) UTI (urinary tract infection) with pyuria Assessment/Plan: -po abx -chronic hull catheter Code(s): N39.0 - URINARY TRACT INFECTION, SITE NOT SPECIFIED (6) Constipation Assessment/Plan: -GI on board -repeat KUB shows significant fecal impaction -patient aware, refuses stimulants or laxatives, only wants to use mineral oil enema Code(s): K59.00 - CONSTIPATION, UNSPECIFIED Qualifiers: Constipation type: unspecified constipation type Qualified Code(s): K59.00 - Constipation, unspecified; K59.00 - Constipation, unspecified (7) Anemia Assessment/Plan: -Venofer -Hematology on board -H/H stable Code(s): D64.9 - ANEMIA, UNSPECIFIED Qualifiers: Anemia type: iron deficiency Other causes of anemia: due to other specified chronic disease (8) Bilateral nephrolithiasis Assessment/Plan: -BL Ureteral stents placed this admission for BL hydronephrosis -needs percuatneous lithotripsy at a tertiary center, is refusing it Code(s): N20.0 - CALCULUS OF KIDNEY (9) Effusion of hip Assessment/Plan: -CT abd contrast showed large left hip and abd effusion -LLQ YA still draining minimally -Fluid collected has creatinine of 3.21 -CT abd with and w/o contrast with delayed phase study results pending Code(s): M25.459 - EFFUSION, UNSPECIFIED HIP Qualifiers: Laterality: left Qualified Code(s): M25.452 - Effusion, left hip; M25.452 - Effusion, left hip Assessment/Plan see problem list
[2017-01-01] MEDS ORDERED: PT OWN MED DRAWER 7, Y5N ONE ×2 (11:55→21:24)
[2017-01-01] MEDS: HEPARIN NA (PORCINE) 5,000 UNITS/ML 1ML VIAL SQ SCH ×2 (11:58→21:55)
[2017-01-01] MEDS: METHYL SALICYLATE/MENTHOL OINT 30 GM TUBE TP SCH ×2 (12:00→21:55)
[2017-01-01] MEDS: LINEZOLID 600 MG TABLET (RESTRICTED TO ID) PO SCH ×2 (12:02→21:52)
[2017-01-01] MEDS: ZINC SULFATE 220 MG CAPSULE (FP) PO SCH ×2 (12:02→21:51)
[2017-01-01] MEDS: MINERAL OIL 30 ML UNIT-DOSE CUP PO PRN ×2 (12:04→21:52)
[2017-01-01] MEDS: SIMETHICONE 80 MG TAB.CHEW (FP) PO PRN (21:51)
[2017-01-01] MEDS: SENNOSIDES 8.6MG TABLET (FP) PO SCH (21:55)
[2017-01-02] MEDS ORDERED: PT OWN MED DRAWER 7, Y5N ONE ×2 (10:27→21:24)
[2017-01-02] MEDS: METHYL SALICYLATE/MENTHOL OINT 30 GM TUBE TP SCH ×2 (12:21→22:01)
[2017-01-02] MEDS: HEPARIN NA (PORCINE) 5,000 UNITS/ML 1ML VIAL SQ SCH ×2 (12:21→22:00)
[2017-01-02] MEDS: LINEZOLID 600 MG TABLET (RESTRICTED TO ID) PO SCH ×2 (12:22→22:00)
[2017-01-02] MEDS: ZINC SULFATE 220 MG CAPSULE (FP) PO SCH ×2 (12:22→22:00)
--- NOTE | 2017-01-02 16:45 | PN ---
Progress Note, Physician Chief Complaint: Nephrolithiasis, decubitus ulcer, constipation History of Present Illness: NAD, in bed alert and oriented on oral linezolid spoke to Urology who suggested, patient needs to be transferred to tertiary care center. Pt refuses. Spoke to patient's mother who cannot take care of the patient at home with hemipelvis drain Stool impaction, needs stimulants, refuses everything except mineral oil enemas. CT abd/pelvis results shows minimal fluid collection at the drain site. - Current Medication List Current Medications: Active Medications Acetaminophen (Tylenol -) 1,000 mg PO Q6H PRN PRN Reason: FEVER OR PAIN Last Admin: 12/02/16 18:13 Dose: 1,000 mg Diphenhydramine HCl (Benadryl Injection -) 50 mg IVPB BID PRN PRN Reason: FOR ITCHING Last Admin: 11/19/16 22:43 Dose: 50 mg Heparin Sodium (Porcine) (Heparin -) 5,000 unit SQ BID [facility] Last Admin: 01/02/17 12:21 Dose: Not Given IV Flush (Picc Line Flush) 8 ml IVPUSH PRN PRN PRN Reason: Protocol Last Admin: 11/23/16 11:00 Dose: 8 ml IV Flush (Triple Lumen Flush) 4 ml IVPUSH PRN PRN PRN Reason: Protocol Last Admin: 12/15/16 07:01 Dose: 4 ml Linezolid (Zyvox (Restricted To Id) -) 600 mg PO BID [facility] Last Admin: 01/02/17 12:22 Dose: 600 mg Methyl Salicylate (Osmar-Moreno -) 1 applic TP BID [facility] Last Admin: 01/02/17 12:21 Dose: Not Given Mineral Oil (Mineral Oil -) 30 ml PO BID PRN PRN Reason: CONSTIPATION Last Admin: 01/01/17 21:52 Dose: 30 ml Senna (Senna -) 1 tab PO HS [facility] Last Admin: 01/01/17 21:55 Dose: Not Given Simethicone (Mylicon -) 80 mg PO QID PRN Last Admin: 01/01/17 21:51 Dose: 80 mg Zinc Sulfate (Orazinc -) 220 mg PO BID [facility] Last Admin: 01/02/17 12:22 Dose: 220 mg - Objective Vital Signs: Vital Signs Temperature 97.8 F 01/01/17 22:00 Pulse Rate 70 01/01/17 22:00 Respiratory Rate 18 01/01/17 22:00 Blood Pressure 106/66 01/01/17 22:00 O2 Sat by Pulse Oximetry (%) 96 01/01/17 21:00 Constitutional: Yes: Well Nourished, No Distress, Calm Cardiovascular: Yes: Regular Rate and Rhythm Respiratory: Yes: Regular Gastrointestinal: Yes: Abdomen, Obese, Ascites, Hypoactive Bowel Sounds Extremities: Yes: WNL Edema: No Peripheral Pulses WNL: Yes Neurological: Yes: Alert, Oriented Psychiatric: Yes: Alert, Oriented Labs: CBC, BMP 12/29/16 05:35 12/29/16 05:35 Problem List - Problems (1) Chronic indwelling Hull catheter Assessment/Plan: -needs a suprapubic catheter but refuses -seen by Urology Code(s): Z92.89 - PERSONAL HISTORY OF OTHER MEDICAL TREATMENT (2) Infection with multi-drug resistant microorganisms Assessment/Plan: -ID on board -on PO abx linezolid Code(s): Z16.35 - RESISTANCE TO MULTIPLE ANTIMICROBIAL DRUGS (3) Neurogenic bladder Assessment/Plan: Chronic Hull catheter -needs a suprapubic catheter but refuses -seen by Urology Code(s): N31.9 - NEUROMUSCULAR DYSFUNCTION OF BLADDER, UNSPECIFIED (4) Paraplegia following spinal cord injury Code(s): G82.20 - PARAPLEGIA, UNSPECIFIED (5) UTI (urinary tract infection) with pyuria Assessment/Plan: -po abx -chronic hull catheter Code(s): N39.0 - URINARY TRACT INFECTION, SITE NOT SPECIFIED (6) Constipation Assessment/Plan: -GI on board -repeat KUB shows significant fecal impaction -patient aware, refuses stimulants or laxatives, only wants to use mineral oil enema Code(s): K59.00 - CONSTIPATION, UNSPECIFIED Qualifiers: Constipation type: unspecified constipation type Qualified Code(s): K59.00 - Constipation, unspecified; K59.00 - Constipation, unspecified (7) Anemia Assessment/Plan: -Venofer -Hematology on board -H/H stable Code(s): D64.9 - ANEMIA, UNSPECIFIED Qualifiers: Anemia type: iron deficiency Other causes of anemia: due to other specified chronic disease (8) Bilateral nephrolithiasis Assessment/Plan: -BL Ureteral stents placed this admission for BL hydronephrosis -needs percuatneous lithotripsy at a tertiary center, is refusing it Code(s): N20.0 - CALCULUS OF KIDNEY (9) Effusion of hip Assessment/Plan: -CT abd contrast showed large left hip and abd effusion -LLQ YA still draining minimally -Fluid collected has creatinine of 3.21 -CT abd with and w/o contrast with delayed phase study shows minimal fluid collection -d/c left hip drain Code(s): M25.459 - EFFUSION, UNSPECIFIED HIP Qualifiers: Laterality: left Qualified Code(s): M25.452 - Effusion, left hip; M25.452 - Effusion, left hip Assessment/Plan Pt cleared to be discharged home in AM on PO abx
--- NOTE | 2017-01-02 21:34 | DS ---
Physical Examination Vital Signs: Vital Signs Temperature 97.8 F 01/01/17 22:00 Pulse Rate 70 01/01/17 22:00 Respiratory Rate 18 01/01/17 22:00 Blood Pressure 106/66 01/01/17 22:00 O2 Sat by Pulse Oximetry (%) 96 01/01/17 21:00 Constitutional: Yes: Well Nourished, No Distress, Calm Cardiovascular: Yes: Regular Rate and Rhythm Respiratory: Yes: Regular Gastrointestinal: Yes: Ascites, Hypoactive Bowel Sounds Musculoskeletal: Yes: WNL Extremities: Yes: WNL Edema: No Peripheral Pulses WNL: Yes Wound/Incision: Yes: Draining (left hemipelvis drain) Neurological: Yes: Alert, Oriented Psychiatric: Yes: Alert, Oriented Labs: CBC, BMP 12/29/16 05:35 12/29/16 05:35 Discharge Summary Reason For Visit: UTI Current Active Problems Acquired functional megacolon (Acute) Bilateral nephrolithiasis (Acute) COPD (chronic obstructive pulmonary disease) (Acute) Chronic indwelling Pelaez catheter (Acute) Constipation due to neurogenic bowel (Acute) Effusion of hip (Acute) Elevated INR (Acute) Fecal impaction in rectum (Acute) Fecal impaction of colon (Acute) Hirschsprung disease of rectosigmoid region (Acute) 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 had cystoscopy with BL JJ stent placement, after which he developed left hip edema. Drain was placed by interventional radiology, which put out moderate amount of purulent fluid which was positive for: Microbiology 12/21/16 11:30 Peritoneal Fluid Gram Stain - Final 12/21/16 11:30 Peritoneal Fluid Body Fluid Culture - Final Pseudomonas Aeruginosa Pseudomonas Aeruginosa#2 Yeast Like Organism Vr Ec Faecalis It was also positive for Urine with creatinine of 3.21. Repeat CT abd/pelvis did not show any urine draining from the kidneys. However the drain continued to drain. Condition: Guarded - Instructions Diet, Activity, Other Instructions: regular diet f/u with pcp within 2 weeks F/u with Infectious disease within 2 weeks repeat labs in 2 weeks Continue linezolid Referrals: Leola House MD [Primary Care Provider] - Disposition: HOME - Home Medications Comprehensive Discharge Medication List: Ambulatory Orders Acetaminophen [Tylenol .Regular Strength -] 650 mg PO Q6H PRN #0 tablet Lactulose (Oral Use) [Cephulac -] 15 gm PO TID PRN #120 ml MDD 3 11/25/16 Mineral Oil - 30 ml PO DAILY PRN #300 ml MDD 30ml 11/25/16 Pantoprazole Sodium [Protonix -] 40 mg PO BID #30 tab MDD 2 11/25/16 Polyethylene Glycol 3350 [Miralax 119 gm Btl -] 17 gm PO BID bottle 11/25/16
[2017-01-02] MEDS: SENNOSIDES 8.6MG TABLET (FP) PO SCH (22:00)
[2017-01-03] MEDS ORDERED: PT OWN MED DRAWER 7, Y5N ONE ×2 (11:30→20:56)
[2017-01-03] MEDS: HEPARIN NA (PORCINE) 5,000 UNITS/ML 1ML VIAL SQ SCH ×2 (11:43→22:11)
[2017-01-03] MEDS: ZINC SULFATE 220 MG CAPSULE (FP) PO SCH ×2 (11:43→22:10)
[2017-01-03] MEDS: LINEZOLID 600 MG TABLET (RESTRICTED TO ID) PO SCH ×2 (11:44→22:11)
[2017-01-03] MEDS: METHYL SALICYLATE/MENTHOL OINT 30 GM TUBE TP SCH ×2 (11:44→22:09)
--- NOTE | 2017-01-03 16:28 | PN ---
Progress Note, Physician Chief Complaint: Nephrolithiasis, decubitus ulcer, constipation History of Present Illness: NAD, in bed alert and oriented on oral linezolid spoke to Urology who suggested, patient needs to be transferred to tertiary care center. Pt refuses. Spoke to patient's mother who cannot take care of the patient at home with hemipelvis drain Stool impaction, needs stimulants, refuses everything except mineral oil enemas. CT abd/pelvis results shows minimal fluid collection at the drain site. Left hemipelvis drain was replaced by IR, instead of being discontinued, unsure why. - Current Medication List Current Medications: Active Medications Acetaminophen (Tylenol -) 1,000 mg PO Q6H PRN PRN Reason: FEVER OR PAIN Last Admin: 12/02/16 18:13 Dose: 1,000 mg Diphenhydramine HCl (Benadryl Injection -) 50 mg IVPB BID PRN PRN Reason: FOR ITCHING Last Admin: 11/19/16 22:43 Dose: 50 mg Heparin Sodium (Porcine) (Heparin -) 5,000 unit SQ BID [facility] Last Admin: 01/03/17 11:43 Dose: 5,000 unit IV Flush (Picc Line Flush) 8 ml IVPUSH PRN PRN PRN Reason: Protocol Last Admin: 11/23/16 11:00 Dose: 8 ml IV Flush (Triple Lumen Flush) 4 ml IVPUSH PRN PRN PRN Reason: Protocol Last Admin: 12/15/16 07:01 Dose: 4 ml Linezolid (Zyvox (Restricted To Id) -) 600 mg PO BID [facility] Last Admin: 01/03/17 11:44 Dose: 600 mg Methyl Salicylate (Osmar-Moreno -) 1 applic TP BID [facility] Last Admin: 01/03/17 11:44 Dose: Not Given Mineral Oil (Mineral Oil -) 30 ml PO BID PRN PRN Reason: CONSTIPATION Last Admin: 01/01/17 21:52 Dose: 30 ml Senna (Senna -) 1 tab PO HS [facility] Last Admin: 01/02/17 22:00 Dose: Not Given Simethicone (Mylicon -) 80 mg PO QID PRN Last Admin: 01/01/17 21:51 Dose: 80 mg Zinc Sulfate (Orazinc -) 220 mg PO BID [facility] Last Admin: 01/03/17 11:43 Dose: 220 mg - Objective Vital Signs: Vital Signs Temperature 97.5 F L 01/03/17 13:48 Pulse Rate 72 01/03/17 13:48 Respiratory Rate 20 01/03/17 13:48 Blood Pressure 105/67 01/03/17 13:48 O2 Sat by Pulse Oximetry (%) 95 01/03/17 09:00 Constitutional: Yes: Well Nourished, No Distress, Calm Cardiovascular: Yes: Regular Rate and Rhythm Respiratory: Yes: Regular Musculoskeletal: Yes: WNL Extremities: Yes: WNL Edema: No Peripheral Pulses WNL: Yes Neurological: Yes: Alert, Oriented Psychiatric: Yes: Alert, Oriented Labs: CBC, BMP 12/29/16 05:35 12/29/16 05:35 Problem List - Problems (1) Chronic indwelling Hull catheter Assessment/Plan: -needs a suprapubic catheter but refuses -seen by Urology Code(s): Z92.89 - PERSONAL HISTORY OF OTHER MEDICAL TREATMENT (2) Infection with multi-drug resistant microorganisms Assessment/Plan: -ID on board -on PO abx linezolid Code(s): Z16.35 - RESISTANCE TO MULTIPLE ANTIMICROBIAL DRUGS (3) Neurogenic bladder Assessment/Plan: Chronic Hull catheter -needs a suprapubic catheter but refuses -seen by Urology Code(s): N31.9 - NEUROMUSCULAR DYSFUNCTION OF BLADDER, UNSPECIFIED (4) Paraplegia following spinal cord injury Code(s): G82.20 - PARAPLEGIA, UNSPECIFIED (5) UTI (urinary tract infection) with pyuria Assessment/Plan: -po abx -chronic hull catheter Code(s): N39.0 - URINARY TRACT INFECTION, SITE NOT SPECIFIED (6) Constipation Assessment/Plan: -GI on board -repeat KUB shows significant fecal impaction -patient aware, refuses stimulants or laxatives, only wants to use mineral oil enema Code(s): K59.00 - CONSTIPATION, UNSPECIFIED Qualifiers: Constipation type: unspecified constipation type Qualified Code(s): K59.00 - Constipation, unspecified; K59.00 - Constipation, unspecified (7) Anemia Assessment/Plan: -Venofer -Hematology on board -H/H stable Code(s): D64.9 - ANEMIA, UNSPECIFIED Qualifiers: Anemia type: iron deficiency Other causes of anemia: due to other specified chronic disease (8) Bilateral nephrolithiasis Assessment/Plan: -BL Ureteral stents placed this admission for BL hydronephrosis -needs percuatneous lithotripsy at a tertiary center, is refusing it Code(s): N20.0 - CALCULUS OF KIDNEY (9) Effusion of hip Assessment/Plan: -CT abd contrast showed large left hip and abd effusion -LLQ YA still draining minimally -Fluid collected has creatinine of 3.21 -CT abd with and w/o contrast with delayed phase study shows minimal fluid collection -d/c left hip drain on Thursday and see if the free space fluid which is minimal ( less than 30ml/24hour) would resolve on it's own into interstitial tissue. Code(s): M25.459 - EFFUSION, UNSPECIFIED HIP Qualifiers: Laterality: left Qualified Code(s): M25.452 - Effusion, left hip; M25.452 - Effusion, left hip Assessment/Plan Pt cleared to be discharged home after discontinuation of drain, on PO abx
[2017-01-03] MEDS: SENNOSIDES 8.6MG TABLET (FP) PO SCH (22:09)
[2017-01-04] MEDS ORDERED: PT OWN MED DRAWER 7, Y5N ONE (11:59)
[2017-01-04] MEDS: ZINC SULFATE 220 MG CAPSULE (FP) PO SCH ×2 (12:02→22:29)
[2017-01-04] MEDS: HEPARIN NA (PORCINE) 5,000 UNITS/ML 1ML VIAL SQ SCH ×3 (12:02→22:26)
[2017-01-04] MEDS: METHYL SALICYLATE/MENTHOL OINT 30 GM TUBE TP SCH ×2 (12:02→22:26)
[2017-01-04] MEDS: LINEZOLID 600 MG TABLET (RESTRICTED TO ID) PO SCH ×2 (12:03→22:29)
[2017-01-04] MEDS: MINERAL OIL 30 ML UNIT-DOSE CUP PO PRN ×2 (12:35→22:30)
--- NOTE | 2017-01-04 18:51 | PN ---
Progress Note, Physician Chief Complaint: Nephrolithiasis, decubitus ulcer, constipation History of Present Illness: NAD, in bed alert and oriented on oral linezolid spoke to Urology who suggested, patient needs to be transferred to tertiary care center. Pt refuses. Spoke to patient's mother who cannot take care of the patient at home with hemipelvis drain Stool impaction, needs stimulants, refuses everything except mineral oil enemas. CT abd/pelvis results shows minimal fluid collection at the drain site. Left hemipelvis drain was replaced by IR, instead of being discontinued, unsure why. - Current Medication List Current Medications: Active Medications Acetaminophen (Tylenol -) 1,000 mg PO Q6H PRN PRN Reason: FEVER OR PAIN Last Admin: 12/02/16 18:13 Dose: 1,000 mg Diphenhydramine HCl (Benadryl Injection -) 50 mg IVPB BID PRN PRN Reason: FOR ITCHING Last Admin: 11/19/16 22:43 Dose: 50 mg Heparin Sodium (Porcine) (Heparin -) 5,000 unit SQ BID [facility] Last Admin: 01/04/17 12:03 Dose: Not Given IV Flush (Picc Line Flush) 8 ml IVPUSH PRN PRN PRN Reason: Protocol Last Admin: 11/23/16 11:00 Dose: 8 ml IV Flush (Triple Lumen Flush) 4 ml IVPUSH PRN PRN PRN Reason: Protocol Last Admin: 12/15/16 07:01 Dose: 4 ml Linezolid (Zyvox (Restricted To Id) -) 600 mg PO BID [facility] Last Admin: 01/04/17 12:03 Dose: 600 mg Methyl Salicylate (Osmar-Moreno -) 1 applic TP BID [facility] Last Admin: 01/04/17 12:02 Dose: Not Given Mineral Oil (Mineral Oil -) 30 ml PO BID PRN PRN Reason: CONSTIPATION Last Admin: 01/04/17 12:35 Dose: 30 ml Senna (Senna -) 1 tab PO HS [facility] Last Admin: 01/03/17 22:09 Dose: Not Given Simethicone (Mylicon -) 80 mg PO QID PRN Last Admin: 01/01/17 21:51 Dose: 80 mg Zinc Sulfate (Orazinc -) 220 mg PO BID [facility] Last Admin: 01/04/17 12:02 Dose: 220 mg - Objective Vital Signs: Vital Signs Temperature 98.0 F 01/04/17 17:40 Pulse Rate 64 01/04/17 17:40 Respiratory Rate 18 01/04/17 17:40 Blood Pressure 111/68 01/04/17 17:40 O2 Sat by Pulse Oximetry (%) 95 01/04/17 09:00 Constitutional: Yes: Well Nourished, No Distress, Calm Cardiovascular: Yes: Regular Rate and Rhythm Respiratory: Yes: Regular Musculoskeletal: Yes: WNL Extremities: Yes: WNL Edema: No Peripheral Pulses WNL: Yes Wound/Incision: Yes: Dressing Dry and Intact Neurological: Yes: Alert, Oriented Psychiatric: Yes: Alert, Oriented Labs: CBC, BMP 12/29/16 05:35 12/29/16 05:35 Problem List - Problems (1) Chronic indwelling Hull catheter Assessment/Plan: -needs a suprapubic catheter but refuses -seen by Urology Code(s): Z92.89 - PERSONAL HISTORY OF OTHER MEDICAL TREATMENT (2) Infection with multi-drug resistant microorganisms Assessment/Plan: -ID on board -on PO abx linezolid Code(s): Z16.35 - RESISTANCE TO MULTIPLE ANTIMICROBIAL DRUGS (3) Neurogenic bladder Assessment/Plan: Chronic Hull catheter -needs a suprapubic catheter but refuses -seen by Urology Code(s): N31.9 - NEUROMUSCULAR DYSFUNCTION OF BLADDER, UNSPECIFIED (4) Paraplegia following spinal cord injury Code(s): G82.20 - PARAPLEGIA, UNSPECIFIED (5) UTI (urinary tract infection) with pyuria Assessment/Plan: -po abx -chronic hull catheter Code(s): N39.0 - URINARY TRACT INFECTION, SITE NOT SPECIFIED (6) Constipation Assessment/Plan: -GI on board -repeat KUB shows significant fecal impaction -patient aware, refuses stimulants or laxatives, only wants to use mineral oil enema Code(s): K59.00 - CONSTIPATION, UNSPECIFIED Qualifiers: Constipation type: unspecified constipation type Qualified Code(s): K59.00 - Constipation, unspecified; K59.00 - Constipation, unspecified (7) Anemia Assessment/Plan: -Venofer -Hematology on board -H/H stable Code(s): D64.9 - ANEMIA, UNSPECIFIED Qualifiers: Anemia type: iron deficiency Other causes of anemia: due to other specified chronic disease (8) Bilateral nephrolithiasis Assessment/Plan: -BL Ureteral stents placed this admission for BL hydronephrosis -needs percuatneous lithotripsy at a tertiary center, is refusing it Code(s): N20.0 - CALCULUS OF KIDNEY (9) Effusion of hip Assessment/Plan: -CT abd contrast showed large left hip and abd effusion -LLQ YA still draining minimally -Fluid collected has creatinine of 3.21 -CT abd with and w/o contrast with delayed phase study shows minimal fluid collection -d/c left hip drain on Thursday and see if the free space fluid which is minimal ( less than 30ml/24hour) would resolve on it's own into interstitial tissue. Code(s): M25.459 - EFFUSION, UNSPECIFIED HIP Qualifiers: Laterality: left Qualified Code(s): M25.452 - Effusion, left hip; M25.452 - Effusion, left hip Assessment/Plan Pt cleared to be discharged home after discontinuation of drain, on PO abx
[2017-01-04] MEDS: SENNOSIDES 8.6MG TABLET (FP) PO SCH (22:26)
--- NOTE | 2017-01-05 09:09 | PN ---
Progress Note, Physician - Current Medication List Current Medications: Active Medications Acetaminophen (Tylenol -) 1,000 mg PO Q6H PRN PRN Reason: FEVER OR PAIN Last Admin: 12/02/16 18:13 Dose: 1,000 mg Diphenhydramine HCl (Benadryl Injection -) 50 mg IVPB BID PRN PRN Reason: FOR ITCHING Last Admin: 11/19/16 22:43 Dose: 50 mg Heparin Sodium (Porcine) (Heparin -) 5,000 unit SQ BID [facility] Last Admin: 01/04/17 22:26 Dose: Not Given IV Flush (Picc Line Flush) 8 ml IVPUSH PRN PRN PRN Reason: Protocol Last Admin: 11/23/16 11:00 Dose: 8 ml IV Flush (Triple Lumen Flush) 4 ml IVPUSH PRN PRN PRN Reason: Protocol Last Admin: 12/15/16 07:01 Dose: 4 ml Linezolid (Zyvox (Restricted To Id) -) 600 mg PO BID [facility] Last Admin: 01/04/17 22:29 Dose: 600 mg Methyl Salicylate (Osmar-Moreno -) 1 applic TP BID [facility] Last Admin: 01/04/17 22:26 Dose: Not Given Mineral Oil (Mineral Oil -) 30 ml PO BID PRN PRN Reason: CONSTIPATION Last Admin: 01/04/17 22:30 Dose: 30 ml Senna (Senna -) 1 tab PO HS [facility] Last Admin: 01/04/17 22:26 Dose: Not Given Simethicone (Mylicon -) 80 mg PO QID PRN Last Admin: 01/01/17 21:51 Dose: 80 mg Zinc Sulfate (Orazinc -) 220 mg PO BID [facility] Last Admin: 01/04/17 22:29 Dose: 220 mg - Objective Vital Signs: Vital Signs Temperature 98.0 F 01/04/17 17:40 Pulse Rate 64 01/04/17 17:40 Respiratory Rate 18 01/04/17 21:00 Blood Pressure 111/68 01/04/17 17:40 O2 Sat by Pulse Oximetry (%) 95 01/04/17 21:00 Cardiovascular: Yes: Regular Rate and Rhythm Respiratory: Yes: Regular, CTA Bilaterally Gastrointestinal: Yes: Normal Bowel Sounds, Soft Additional Findings/Remarks: drain with minimal drainage Labs: CBC, BMP 12/29/16 05:35 10/16/17 05:35 Assessment/Plan - Problems (1) Chronic indwelling Hull catheter Assessment/Plan: -needs a suprapubic catheter but refuses -seen by Urology Code(s): Z92.89 - PERSONAL HISTORY OF OTHER MEDICAL TREATMENT (2) Infection with multi-drug resistant microorganisms Assessment/Plan: -ID on board -on PO abx linezolid Code(s): Z16.35 - RESISTANCE TO MULTIPLE ANTIMICROBIAL DRUGS (3) Neurogenic bladder Assessment/Plan: Chronic Hull catheter -needs a suprapubic catheter but refuses -seen by Urology Code(s): N31.9 - NEUROMUSCULAR DYSFUNCTION OF BLADDER, UNSPECIFIED (4) Paraplegia following spinal cord injury Code(s): G82.20 - PARAPLEGIA, UNSPECIFIED (5) UTI (urinary tract infection) with pyuria Assessment/Plan: -po abx -chronic hull catheter Code(s): N39.0 - URINARY TRACT INFECTION, SITE NOT SPECIFIED (6) Constipation Assessment/Plan: -GI on board -repeat KUB shows significant fecal impaction -patient aware, refuses stimulants or laxatives, only wants to use mineral oil enema Code(s): K59.00 - CONSTIPATION, UNSPECIFIED Qualifiers: Constipation type: unspecified constipation type Qualified Code(s): K59.00 - Constipation, unspecified; K59.00 - Constipation, unspecified (7) Anemia Assessment/Plan: -Venofer -Hematology on board -H/H stable Code(s): D64.9 - ANEMIA, UNSPECIFIED Qualifiers: Anemia type: iron deficiency Other causes of anemia: due to other specified chronic disease (8) Bilateral nephrolithiasis Assessment/Plan: -BL Ureteral stents placed this admission for BL hydronephrosis -needs percuatneous lithotripsy at a tertiary center, is refusing it Code(s): N20.0 - CALCULUS OF KIDNEY (9) Effusion of hip Assessment/Plan: -CT abd contrast showed large left hip and abd effusion -LLQ YA still draining minimally -Fluid collected has creatinine of 3.21 -CT abd with and w/o contrast with delayed phase study shows minimal fluid collection -d/c left hip drain on Thursday and see if the free space fluid which is minimal ( less than 30ml/24hour) would resolve on it's own into interstitial tissue. Code(s): M25.459 - EFFUSION, UNSPECIFIED HIP Qualifiers: Laterality: left Qualified Code(s): M25.452 - Effusion, left hip; M25.452 - Effusion, left hip Assessment/Plan Pt cleared to be discharged home after discontinuation of drain, on PO abx
[2017-01-05] MEDS ORDERED: PT OWN MED DRAWER 7, Y5N ONE (10:02)
[2017-01-05] MEDS: ZINC SULFATE 220 MG CAPSULE (FP) PO SCH ×2 (10:04→21:25)
[2017-01-05] MEDS: METHYL SALICYLATE/MENTHOL OINT 30 GM TUBE TP SCH ×2 (10:05→21:28)
[2017-01-05] MEDS: MINERAL OIL 30 ML UNIT-DOSE CUP PO PRN ×2 (10:05→21:26)
[2017-01-05] MEDS: LINEZOLID 600 MG TABLET (RESTRICTED TO ID) PO SCH ×2 (10:05→21:25)
[2017-01-05] MEDS: HEPARIN NA (PORCINE) 5,000 UNITS/ML 1ML VIAL SQ SCH ×2 (10:05→21:28)
[2017-01-05] MEDS: SENNOSIDES 8.6MG TABLET (FP) PO SCH (21:28)
[2017-01-06] MEDS ORDERED: PT OWN MED DRAWER 7, Y5N ONE (11:33)
[2017-01-06] MEDS: HEPARIN NA (PORCINE) 5,000 UNITS/ML 1ML VIAL SQ SCH ×2 (11:36→22:35)
[2017-01-06] MEDS: METHYL SALICYLATE/MENTHOL OINT 30 GM TUBE TP SCH ×2 (11:36→22:35)
[2017-01-06] MEDS: LINEZOLID 600 MG TABLET (RESTRICTED TO ID) PO SCH (12:30)
[2017-01-06] MEDS: ZINC SULFATE 220 MG CAPSULE (FP) PO SCH ×2 (12:30→22:36)
--- NOTE | 2017-01-06 16:43 | PN ---
Progress Note, Physician Chief Complaint: Nephrolithiasis, decubitus ulcer, constipation History of Present Illness: NAD, in bed alert and oriented on oral linezolid spoke to Urology who suggested, patient needs to be transferred to tertiary care center for percutatneous lithotripsy. Pt refuses. Spoke to patient's mother who cannot take care of the patient at home with hemipelvis drain Has chronic hull catheter, needs a suprapubic, which he refuses Stool impaction, needs stimulants, refuses everything except mineral oil enemas. CT abd/pelvis results shows minimal fluid collection at the drain site. Left hemipelvis drain to be discontinued by IR, pending - Current Medication List Current Medications: Active Medications Acetaminophen (Tylenol -) 1,000 mg PO Q6H PRN PRN Reason: FEVER OR PAIN Last Admin: 12/02/16 18:13 Dose: 1,000 mg Diphenhydramine HCl (Benadryl Injection -) 50 mg IVPB BID PRN PRN Reason: FOR ITCHING Last Admin: 11/19/16 22:43 Dose: 50 mg Heparin Sodium (Porcine) (Heparin -) 5,000 unit SQ BID [facility] Last Admin: 01/06/17 11:36 Dose: Not Given IV Flush (Picc Line Flush) 8 ml IVPUSH PRN PRN PRN Reason: Protocol Last Admin: 11/23/16 11:00 Dose: 8 ml IV Flush (Triple Lumen Flush) 4 ml IVPUSH PRN PRN PRN Reason: Protocol Last Admin: 12/15/16 07:01 Dose: 4 ml Linezolid (Zyvox (Restricted To Id) -) 600 mg PO BID [facility] Last Admin: 01/06/17 12:30 Dose: 600 mg Methyl Salicylate (Osmar-Moreno -) 1 applic TP BID [facility] Last Admin: 01/06/17 11:36 Dose: Not Given Mineral Oil (Mineral Oil -) 30 ml PO BID PRN PRN Reason: CONSTIPATION Last Admin: 01/05/17 21:26 Dose: 30 ml Senna (Senna -) 1 tab PO HS [facility] Last Admin: 01/05/17 21:28 Dose: Not Given Simethicone (Mylicon -) 80 mg PO QID PRN Last Admin: 01/01/17 21:51 Dose: 80 mg Zinc Sulfate (Orazinc -) 220 mg PO BID [facility] Last Admin: 01/06/17 12:30 Dose: 220 mg - Objective Vital Signs: Vital Signs Temperature 97.6 F 01/06/17 05:28 Pulse Rate 78 01/06/17 05:28 Respiratory Rate 18 01/06/17 09:00 Blood Pressure 95/60 01/06/17 05:28 O2 Sat by Pulse Oximetry (%) 98 01/05/17 10:00 Constitutional: Yes: Well Nourished, No Distress, Calm Cardiovascular: Yes: Regular Rate and Rhythm Respiratory: Yes: Regular Gastrointestinal: Yes: Abdomen, Obese, Ascites, Hypoactive Bowel Sounds Genitourinary: Yes: Hull Present Musculoskeletal: Yes: WNL Extremities: Yes: WNL Edema: No Peripheral Pulses WNL: Yes Wound/Incision: Yes: Dressing Dry and Intact Neurological: Yes: Alert, Oriented Psychiatric: Yes: Alert, Oriented Labs: CBC, BMP 12/29/16 05:35 12/29/16 05:35 Problem List - Problems (1) Chronic indwelling Hull catheter Assessment/Plan: -needs a suprapubic catheter but refuses -seen by Urology Code(s): Z92.89 - PERSONAL HISTORY OF OTHER MEDICAL TREATMENT (2) Infection with multi-drug resistant microorganisms Assessment/Plan: -ID on board -on PO abx linezolid Code(s): Z16.35 - RESISTANCE TO MULTIPLE ANTIMICROBIAL DRUGS (3) Neurogenic bladder Assessment/Plan: Chronic Hull catheter -needs a suprapubic catheter but refuses -seen by Urology Code(s): N31.9 - NEUROMUSCULAR DYSFUNCTION OF BLADDER, UNSPECIFIED (4) Paraplegia following spinal cord injury Code(s): G82.20 - PARAPLEGIA, UNSPECIFIED (5) UTI (urinary tract infection) with pyuria Assessment/Plan: -po abx -chronic hull catheter Code(s): N39.0 - URINARY TRACT INFECTION, SITE NOT SPECIFIED (6) Constipation Assessment/Plan: -GI on board -repeat KUB shows significant fecal impaction -patient aware, refuses stimulants or laxatives, only wants to use mineral oil enema Code(s): K59.00 - CONSTIPATION, UNSPECIFIED Qualifiers: Constipation type: unspecified constipation type Qualified Code(s): K59.00 - Constipation, unspecified; K59.00 - Constipation, unspecified (7) Anemia Assessment/Plan: -Venofer -Hematology on board -H/H stable Code(s): D64.9 - ANEMIA, UNSPECIFIED Qualifiers: Anemia type: iron deficiency Other causes of anemia: due to other specified chronic disease (8) Bilateral nephrolithiasis Assessment/Plan: -BL Ureteral stents placed this admission for BL hydronephrosis -needs percuatneous lithotripsy at a tertiary center, is refusing it Code(s): N20.0 - CALCULUS OF KIDNEY (9) Effusion of hip Assessment/Plan: -LLQ YA still draining minimally -Fluid collected has creatinine of 3.21 -CT abd with and w/o contrast with delayed phase study shows minimal fluid collection -d/c left hip drain, plan discharge, see if the free space fluid which is minimal (less than 30ml/24hour) would resolve on it's own into interstitial tissue. Code(s): M25.459 - EFFUSION, UNSPECIFIED HIP Qualifiers: Laterality: left Qualified Code(s): M25.452 - Effusion, left hip; M25.452 - Effusion, left hip Assessment/Plan Pt cleared to be discharged home after discontinuation of drain, on PO abx
[2017-01-06] MEDS: SENNOSIDES 8.6MG TABLET (FP) PO SCH (22:36)
[2017-01-06] MEDS: MINERAL OIL 30 ML UNIT-DOSE CUP PO PRN (22:36)
[2017-01-06] MEDS ORDERED: LINEZOLID 600 MG TABLET (RESTRICTED TO ID) PO ONE (23:15)
[2017-01-07] MEDS: METHYL SALICYLATE/MENTHOL OINT 30 GM TUBE TP SCH ×2 (12:11→21:22)
[2017-01-07] MEDS: ZINC SULFATE 220 MG CAPSULE (FP) PO SCH ×2 (12:11→21:22)
[2017-01-07] MEDS: HEPARIN NA (PORCINE) 5,000 UNITS/ML 1ML VIAL SQ SCH ×2 (12:11→21:22)
--- NOTE | 2017-01-07 21:14 | PN ---
Progress Note, Physician Chief Complaint: Nephrolithiasis, decubitus ulcer, constipation History of Present Illness: NAD, in bed alert and oriented on oral linezolid spoke to Urology who suggested, patient needs to be transferred to tertiary care center for percutatneous lithotripsy. Pt refuses. Spoke to patient's mother who cannot take care of the patient at home with hemipelvis drain Has chronic hull catheter, needs a suprapubic, which he refuses Stool impaction, needs stimulants, refuses everything except mineral oil enemas. CT abd/pelvis results shows minimal fluid collection at the drain site. Spoke to patient about clamping the left hemipelvis drain and to be discharged home with follow up in 2 weeks. Patient refuses the discharge plan at this time. Will speak to IR about discontinuing the drain. I made it clear to the patient that he may have fluid collection again and it is recommended that drain stays. He refuses to go home with the drain even if it doesn't require any care. Previously patient did not want to go home because his mother didn't want to be responsible to empty the drain. Patient refuses shelter care as well. Pt has been consistently non compliant with a lot of medical recommendations and thus has a high chance that he would return to the hospital with complications. - Current Medication List Current Medications: Active Medications Acetaminophen (Tylenol -) 1,000 mg PO Q6H PRN PRN Reason: FEVER OR PAIN Last Admin: 12/02/16 18:13 Dose: 1,000 mg Diphenhydramine HCl (Benadryl Injection -) 50 mg IVPB BID PRN PRN Reason: FOR ITCHING Last Admin: 11/19/16 22:43 Dose: 50 mg Heparin Sodium (Porcine) (Heparin -) 5,000 unit SQ BID [facility] Last Admin: 01/07/17 12:11 Dose: Not Given IV Flush (Picc Line Flush) 8 ml IVPUSH PRN PRN PRN Reason: Protocol Last Admin: 11/23/16 11:00 Dose: 8 ml IV Flush (Triple Lumen Flush) 4 ml IVPUSH PRN PRN PRN Reason: Protocol Last Admin: 12/15/16 07:01 Dose: 4 ml Linezolid (Zyvox (Restricted To Id) -) 600 mg PO BID [facility] Methyl Salicylate (Osmar-Moreno -) 1 applic TP BID [facility] Last Admin: 01/07/17 12:11 Dose: Not Given Mineral Oil (Mineral Oil -) 30 ml PO BID PRN PRN Reason: CONSTIPATION Last Admin: 01/06/17 22:36 Dose: 30 ml Senna (Senna -) 1 tab PO HS [facility] Last Admin: 01/06/17 22:36 Dose: Not Given Simethicone (Mylicon -) 80 mg PO QID PRN Last Admin: 01/01/17 21:51 Dose: 80 mg Zinc Sulfate (Orazinc -) 220 mg PO BID [facility] Last Admin: 01/07/17 12:11 Dose: 220 mg - Objective Vital Signs: Vital Signs Temperature 97.8 F 01/07/17 19:48 Pulse Rate 74 01/07/17 19:48 Respiratory Rate 18 01/07/17 19:48 Blood Pressure 120/72 01/07/17 19:48 O2 Sat by Pulse Oximetry (%) 97 01/07/17 10:00 Constitutional: Yes: Well Nourished, No Distress, Calm Cardiovascular: Yes: Regular Rate and Rhythm Respiratory: Yes: Regular Gastrointestinal: Yes: Abdomen, Obese, Ascites, Hypoactive Bowel Sounds Musculoskeletal: Yes: WNL Extremities: Yes: WNL Edema: No Peripheral Pulses WNL: Yes Neurological: Yes: Alert, Oriented Psychiatric: Yes: Alert, Oriented Labs: CBC, BMP 12/29/16 05:35 12/29/16 05:35 Problem List - Problems (1) Chronic indwelling Hull catheter Assessment/Plan: -needs a suprapubic catheter but refuses -seen by Urology Code(s): Z92.89 - PERSONAL HISTORY OF OTHER MEDICAL TREATMENT (2) Infection with multi-drug resistant microorganisms Assessment/Plan: -ID on board -on PO abx linezolid Code(s): Z16.35 - RESISTANCE TO MULTIPLE ANTIMICROBIAL DRUGS (3) Neurogenic bladder Assessment/Plan: Chronic Hull catheter -needs a suprapubic catheter but refuses -seen by Urology Code(s): N31.9 - NEUROMUSCULAR DYSFUNCTION OF BLADDER, UNSPECIFIED (4) Paraplegia following spinal cord injury Code(s): G82.20 - PARAPLEGIA, UNSPECIFIED (5) UTI (urinary tract infection) with pyuria Assessment/Plan: -po abx -chronic hull catheter Code(s): N39.0 - URINARY TRACT INFECTION, SITE NOT SPECIFIED (6) Constipation Assessment/Plan: -GI on board -repeat KUB shows significant fecal impaction -patient aware, refuses stimulants or laxatives, only wants to use mineral oil enema Code(s): K59.00 - CONSTIPATION, UNSPECIFIED Qualifiers: Constipation type: unspecified constipation type Qualified Code(s): K59.00 - Constipation, unspecified; K59.00 - Constipation, unspecified (7) Anemia Assessment/Plan: -Venofer -Hematology on board -H/H stable Code(s): D64.9 - ANEMIA, UNSPECIFIED Qualifiers: Anemia type: iron deficiency Other causes of anemia: due to other specified chronic disease (8) Bilateral nephrolithiasis Assessment/Plan: -BL Ureteral stents placed this admission for BL hydronephrosis -needs percuatneous lithotripsy at a tertiary center, is refusing it Code(s): N20.0 - CALCULUS OF KIDNEY (9) Effusion of hip Assessment/Plan: -LLQ YA still draining minimally -Fluid collected has creatinine of 3.21 -CT abd with and w/o contrast with delayed phase study shows minimal fluid collection -d/c left hip drain, plan discharge, see if the free space fluid which is minimal (less than 30ml/24hour) would resolve on it's own into interstitial tissue. Code(s): M25.459 - EFFUSION, UNSPECIFIED HIP Qualifiers: Laterality: left Qualified Code(s): M25.452 - Effusion, left hip; M25.452 - Effusion, left hip Assessment/Plan Pt cleared to be discharged home after discontinuation of drain, on PO abx CBC in AM
[2017-01-07] MEDS: SENNOSIDES 8.6MG TABLET (FP) PO SCH (21:22)
[2017-01-07] MEDS: MINERAL OIL 30 ML UNIT-DOSE CUP PO PRN (21:23)
[2017-01-08 07:40] LABS: MCH 26.7 pg (25.7-33.7); MEAN CELL VOLUME 83.4 fl (80-96); MEAN PLT VOLUME 7.7 fl (7.5-11.1); PLATELET COUNT 110 K/MM3 (134-434); RDW 26.4 % (11.9-15.9); WHITE BLOOD COUNT 5.2 K/mm3 (4.0-10.0)
[2017-01-08 08:21] LABS: ANION GAP 10 (8-16); CALCIUM 8.4 mg/dL (8.5-10.1); CO2 28 mmol/L (21-32); CREATININE 0.7 mg/dL (0.7-1.3); GLUCOSE,RANDOM 74 mg/dL (74-106)
--- NOTE | 2017-01-08 08:46 | DS ---
Physical Examination Vital Signs: Vital Signs Temperature 97.8 F 01/08/17 06:01 Pulse Rate 69 01/08/17 06:01 Respiratory Rate 18 01/08/17 06:01 Blood Pressure 115/75 01/08/17 06:01 O2 Sat by Pulse Oximetry (%) 94 L 01/07/17 21:00 Cardiovascular: Yes: Regular Rate and Rhythm Respiratory: Yes: Regular, CTA Bilaterally Gastrointestinal: Yes: Normal Bowel Sounds, Soft, Other (drain over left no swelling no erythema) Labs: CBC, BMP 01/08/17 06:00 01/08/17 06:00 Discharge Summary Reason For Visit: UTI Current Active Problems Acquired functional megacolon (Acute) Bilateral nephrolithiasis (Acute) COPD (chronic obstructive pulmonary disease) (Acute) Chronic indwelling Hull catheter (Acute) Constipation due to neurogenic bowel (Acute) Effusion of hip (Acute) Elevated INR (Acute) Fecal impaction in rectum (Acute) Fecal impaction of colon (Acute) Hirschsprung disease of rectosigmoid region (Acute) 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 (Acute) Hydronephrosis (Acute) Infection with multi-drug resistant microorganisms (Acute) Leukocytosis (Acute) Neurogenic bladder (Acute) Neurogenic bowel (Acute) Obstructive uropathy (Acute) Paraplegia following spinal cord injury (Acute) Postprocedural retroperitoneal abscess (Acute) Pseudoobstruction of colon (Acute) Retroperitoneal fluid collection (Acute) UTI (urinary tract infection) (Acute) UTI (urinary tract infection) with pyuria (Acute) Weakness (Acute) Hospital Course: Hospital Course: Originally came in for UTI, BL nephrolithiasis, staghorn appearing. had cystoscopy with BL JJ stent placement, after which he developed left hip edema. Drain was placed by interventional radiology, which put out moderate amount of purulent fluid which was positive for: Microbiology 12/21/16 11:30 Peritoneal Fluid Gram Stain - Final 12/21/16 11:30 Peritoneal Fluid Body Fluid Culture - Final Pseudomonas Aeruginosa Pseudomonas Aeruginosa#2 Yeast Like Organism Vr Ec Faecalis It was also positive for Urine with creatinine of 3.21. Repeat CT abd/pelvis did not show any urine draining from the kidneys. However the drain continued to drain. History of Present Illness: NAD, in bed alert and oriented on oral linezolid spoke to Urology who suggested, patient needs to be transferred to tertiary care center for percutatneous lithotripsy. Pt refuses. Spoke to patient's mother who cannot take care of the patient at home with hemipelvis drain Has chronic hull catheter, needs a suprapubic, which he refuses Stool impaction, needs stimulants, refuses everything except mineral oil enemas. CT abd/pelvis results shows minimal fluid collection at the drain site. Spoke to patient about clamping the left hemipelvis drain and to be discharged home with follow up in 2 weeks. Patient refuses the discharge plan at this time. Will speak to IR about discontinuing the drain. I made it clear to the patient that he may have fluid collection again and it is recommended that drain stays. He refuses to go home with the drain even if it doesn't require any care. Previously patient did not want to go home because his mother didn't want to be responsible to empty the drain. Patient refuses care home care as well. Pt has been consistently non compliant with a lot of medical recommendations and thus has a high chance that he would return to the hospital with complications. Constitutional: Yes: Well Nourished, No Distress, Calm Cardiovascular: Yes: Regular Rate and Rhythm Respiratory: Yes: Regular Gastrointestinal: Yes: Abdomen, Obese, Ascites, Hypoactive Bowel Sounds Musculoskeletal: Yes: WNL Extremities: Yes: WNL Edema: No Peripheral Pulses WNL: Yes Neurological: Yes: Alert, Oriented Psychiatric: Yes: Alert, Oriented Labs: CBC, BMP 01/08/17 06:00 01/08/17 06:00 Problem List - Problems (1) Chronic indwelling Hull catheter Assessment/Plan: -needs a suprapubic catheter but refuses -seen by Urology Code(s): Z92.89 - PERSONAL HISTORY OF OTHER MEDICAL TREATMENT (2) Infection with multi-drug resistant microorganisms Assessment/Plan: -ID on board -on PO abx Code(s): Z16.35 - RESISTANCE TO MULTIPLE ANTIMICROBIAL DRUGS (3) Neurogenic bladder Assessment/Plan: Chronic Hull catheter -needs a suprapubic catheter but refuses -seen by Urology Code(s): N31.9 - NEUROMUSCULAR DYSFUNCTION OF BLADDER, UNSPECIFIED (4) Paraplegia following spinal cord injury Code(s): G82.20 - PARAPLEGIA, UNSPECIFIED (5) UTI (urinary tract infection) with pyuria Assessment/Plan: -po abx -chronic hull catheter Code(s): N39.0 - URINARY TRACT INFECTION, SITE NOT SPECIFIED (6) Constipation Assessment/Plan: -GI on board -repeat KUB shows significant fecal impaction -patient aware, refuses stimulants or laxatives, only wants to use mineral oil enema Code(s): K59.00 - CONSTIPATION, UNSPECIFIED Qualifiers: Constipation type: unspecified constipation type Qualified Code(s): K59.00 - Constipation, unspecified; K59.00 - Constipation, unspecified (7) Anemia Assessment/Plan: -Venofer -Hematology on board -H/H stable Code(s): D64.9 - ANEMIA, UNSPECIFIED Qualifiers: Anemia type: iron deficiency Other causes of anemia: due to other specified chronic disease (8) Bilateral nephrolithiasis Assessment/Plan: -BL Ureteral stents placed this admission for BL hydronephrosis -needs percuatneous lithotripsy at a tertiary center, is refusing it Code(s): N20.0 - CALCULUS OF KIDNEY (9) Effusion of hip Assessment/Plan: -LLQ YA still draining minimally -Fluid collected has creatinine of 3.21 -CT abd with and w/o contrast with delayed phase study shows minimal fluid collection -d/c left hip drain, plan discharge, see if the free space fluid which is minimal (less than 30ml/24hour) would resolve on it's own into interstitial tissue. -he refuses all other interventions--he understands risks and possibility of re- accumulation Code(s): M25.459 - EFFUSION, UNSPECIFIED HIP Qualifiers: Laterality: left Qualified Code(s): M25.452 - Effusion, left hip; M25.452 - Effusion, left hip Assessment/Plan Pt cleared to be discharged home after discontinuation of drain Condition: Guarded - Instructions Diet, Activity, Other Instructions: regular diet f/u with pcp within 2 weeks F/u with Infectious disease within 2 weeks repeat labs in 2 weeks Cbc in one week Referrals: Leola House MD [Primary Care Provider] - Disposition: HOME - Home Medications Comprehensive Discharge Medication List: Ambulatory Orders Acetaminophen [Tylenol .Regular Strength -] 650 mg PO Q6H PRN #0 tablet Lactulose (Oral Use) [Cephulac -] 15 gm PO TID PRN #120 ml MDD 3 11/25/16 Mineral Oil - 30 ml PO DAILY PRN #300 ml MDD 30ml 11/25/16 Pantoprazole Sodium [Protonix -] 40 mg PO BID #30 tab MDD 2 11/25/16 Polyethylene Glycol 3350 [Miralax 119 gm Btl -] 17 gm PO BID bottle 11/25/16
[2017-01-08] MEDS: METHYL SALICYLATE/MENTHOL OINT 30 GM TUBE TP SCH ×2 (10:50→23:21)
[2017-01-08] MEDS: ZINC SULFATE 220 MG CAPSULE (FP) PO SCH ×2 (10:50→23:20)
[2017-01-08 11:57] LABS: ALBUMIN 2.7 g/dl (3.4-5.0); SGOT/AST 15 U/L (15-37); SGPT/ALT 24 U/L (12-78)
[2017-01-08 11:59] LABS: ALK PHOS 107 U/L (45-117); BILIRUBIN,TOTAL 0.4 mg/dL (0.2-1.0); TOT PROT 7.4 g/dl (6.4-8.2)
[2017-01-08 16:54] LABS: CREATININE 0.7 mg/dL (0.7-1.3); GLUCOSE,RANDOM 72 mg/dL (74-106)
[2017-01-08 16:55] LABS: ALBUMIN 2.7 g/dl (3.4-5.0); ALK PHOS 111 U/L (45-117); ANION GAP 11 (8-16); BILIRUBIN,TOTAL 0.3 mg/dL (0.2-1.0); CALCIUM 8.5 mg/dL (8.5-10.1); CO2 26 mmol/L (21-32); SGOT/AST 14 U/L (15-37); SGPT/ALT 25 U/L (12-78); TOT PROT 7.4 g/dl (6.4-8.2)
[2017-01-08] MEDS ORDERED: PT OWN MED DRAWER 7, Y5N ONE (22:11)
[2017-01-08] MEDS: MINERAL OIL 30 ML UNIT-DOSE CUP PO PRN (23:20)
[2017-01-08] MEDS: DOXYCYCLINE HYCLATE 100 MG CAPSULE PO SCH (23:20)
[2017-01-08] MEDS: SENNOSIDES 8.6MG TABLET (FP) PO SCH (23:21)
[2017-01-08] MEDS: LINEZOLID 600 MG TABLET (RESTRICTED TO ID) PO SCH (23:50)
[2017-01-09] MEDS: ZINC SULFATE 220 MG CAPSULE (FP) PO SCH (10:00)
[2017-01-09] MEDS: DOXYCYCLINE HYCLATE 100 MG CAPSULE PO SCH (10:00)
[2017-01-09] MEDS ORDERED: RIFAMPIN 300 MG CAPSULE PO SCH (10:00)
[2017-01-09] MEDS: METHYL SALICYLATE/MENTHOL OINT 30 GM TUBE TP SCH (10:01)
--- NOTE | 2017-01-09 10:13 | DS ---
Physical Examination Vital Signs: Vital Signs Temperature 97.6 F 01/08/17 22:00 Pulse Rate 71 01/08/17 22:00 Respiratory Rate 18 01/08/17 22:00 Blood Pressure 117/56 01/08/17 22:00 O2 Sat by Pulse Oximetry (%) 94 L 01/08/17 10:00 Labs: CBC, BMP 01/08/17 06:00 01/08/17 06:00 Discharge Summary Reason For Visit: UTI Current Active Problems Acquired functional megacolon (Acute) Bilateral nephrolithiasis (Acute) COPD (chronic obstructive pulmonary disease) (Acute) Chronic indwelling Hull catheter (Acute) Constipation due to neurogenic bowel (Acute) Effusion of hip (Acute) Elevated INR (Acute) Fecal impaction in rectum (Acute) Fecal impaction of colon (Acute) Hirschsprung disease of rectosigmoid region (Acute) 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 (Acute) Hydronephrosis (Acute) Infection with multi-drug resistant microorganisms (Acute) Leukocytosis (Acute) Neurogenic bladder (Acute) Neurogenic bowel (Acute) Obstructive uropathy (Acute) Paraplegia following spinal cord injury (Acute) Postprocedural retroperitoneal abscess (Acute) Pseudoobstruction of colon (Acute) Retroperitoneal fluid collection (Acute) UTI (urinary tract infection) (Acute) UTI (urinary tract infection) with pyuria (Acute) Weakness (Acute) Hospital Course: Problems (1) Chronic indwelling Hull catheter Assessment/Plan: -needs a suprapubic catheter but refuses -seen by Urology Code(s): Z92.89 - PERSONAL HISTORY OF OTHER MEDICAL TREATMENT (2) Infection with multi-drug resistant microorganisms Assessment/Plan: -ID on board -on PO abx--doxocycline and rifampin Code(s): Z16.35 - RESISTANCE TO MULTIPLE ANTIMICROBIAL DRUGS (3) Neurogenic bladder Assessment/Plan: Chronic Hull catheter -needs a suprapubic catheter but refuses -seen by Urology Code(s): N31.9 - NEUROMUSCULAR DYSFUNCTION OF BLADDER, UNSPECIFIED (4) Paraplegia following spinal cord injury Code(s): G82.20 - PARAPLEGIA, UNSPECIFIED (5) UTI (urinary tract infection) with pyuria Assessment/Plan: -po abx -chronic hull catheter Code(s): N39.0 - URINARY TRACT INFECTION, SITE NOT SPECIFIED (6) Constipation Assessment/Plan: -GI on board -repeat KUB shows significant fecal impaction -patient aware, refuses stimulants or laxatives, only wants to use mineral oil enema Code(s): K59.00 - CONSTIPATION, UNSPECIFIED Qualifiers: Constipation type: unspecified constipation type Qualified Code(s): K59.00 - Constipation, unspecified; K59.00 - Constipation, unspecified (7) Anemia Assessment/Plan: -Venofer given -Hematology on board -H/H stable Code(s): D64.9 - ANEMIA, UNSPECIFIED Qualifiers: Anemia type: iron deficiency Other causes of anemia: due to other specified chronic disease (8) Bilateral nephrolithiasis Assessment/Plan: -BL Ureteral stents placed this admission for BL hydronephrosis -needs percuatneous lithotripsy at a tertiary center, is refusing it Code(s): N20.0 - CALCULUS OF KIDNEY (9) Effusion of hip Assessment/Plan: -LLQ YA removed -Fluid collected has creatinine of 3.21 -CT abd with and w/o contrast with delayed phase study shows minimal fluid collection -he refuses all other interventions--he understands risks and possibility of re- accumulation Code(s): M25.459 - EFFUSION, UNSPECIFIED HIP Qualifiers: Laterality: left Qualified Code(s): M25.452 - Effusion, left hip; M25.452 - Effusion, left hip Condition: Improved - Instructions Diet, Activity, Other Instructions: regular diet f/u within 2 weeks F/u with Infectious disease within 2 weeks repeat labs in 2 weeks Cbc in one week dc on po doxocyline and rifampin dc home with MLTC and VNS Referrals: Leola House MD [Primary Care Provider] - Disposition: VNS/HOME HEALTH CARE - Home Medications Comprehensive Discharge Medication List: Ambulatory Orders Acetaminophen [Tylenol .Regular Strength -] 650 mg PO Q6H PRN #0 tablet Lactulose (Oral Use) [Cephulac -] 15 gm PO TID PRN #120 ml MDD 3 11/25/16 Mineral Oil - 30 ml PO DAILY PRN #300 ml MDD 30ml 11/25/16 Pantoprazole Sodium [Protonix -] 40 mg PO BID #30 tab MDD 2 11/25/16 Polyethylene Glycol 3350 [Miralax 119 gm Btl -] 17 gm PO BID bottle 11/25/16
--- NOTE | 2017-01-09 10:28 | PN ---
Progress Note, Physician History of Present Illness: Awake, alert No complaints No fever/ chills Tolerated doxycycline/ rifampin WBC WNL - Current Medication List Current Medications: Active Medications Acetaminophen (Tylenol -) 1,000 mg PO Q6H PRN PRN Reason: FEVER OR PAIN Last Admin: 12/02/16 18:13 Dose: 1,000 mg Diphenhydramine HCl (Benadryl Injection -) 50 mg IVPB BID PRN PRN Reason: FOR ITCHING Last Admin: 11/19/16 22:43 Dose: 50 mg Doxycycline Hyclate (Vibramycin -) 100 mg PO BID@1000,1800 [facility] Last Admin: 01/09/17 10:00 Dose: 100 mg IV Flush (Picc Line Flush) 8 ml IVPUSH PRN PRN PRN Reason: Protocol Last Admin: 11/23/16 11:00 Dose: 8 ml IV Flush (Triple Lumen Flush) 4 ml IVPUSH PRN PRN PRN Reason: Protocol Last Admin: 12/15/16 07:01 Dose: 4 ml Methyl Salicylate (Osmar-Moreno -) 1 applic TP BID [facility] Last Admin: 01/09/17 10:01 Dose: Not Given Mineral Oil (Mineral Oil -) 30 ml PO BID PRN PRN Reason: CONSTIPATION Last Admin: 01/08/17 23:20 Dose: 30 ml Rifampin (Rifadin -) 600 mg PO DAILY [facility] Last Admin: 01/09/17 10:00 Dose: 600 mg Senna (Senna -) 1 tab PO HS [facility] Last Admin: 01/08/17 23:21 Dose: Not Given Simethicone (Mylicon -) 80 mg PO QID PRN Last Admin: 01/01/17 21:51 Dose: 80 mg Zinc Sulfate (Orazinc -) 220 mg PO BID [facility] Last Admin: 01/09/17 10:00 Dose: 220 mg - Objective Vital Signs: Vital Signs Temperature 97.6 F 01/08/17 22:00 Pulse Rate 71 01/08/17 22:00 Respiratory Rate 18 01/08/17 22:00 Blood Pressure 117/56 01/08/17 22:00 O2 Sat by Pulse Oximetry (%) 94 L 01/08/17 10:00 Constitutional: Yes: No Distress Eyes: Yes: Conjunctiva Clear Cardiovascular: Yes: Regular Rate and Rhythm, S1, S2 Respiratory: Yes: Diminished Gastrointestinal: Yes: Normal Bowel Sounds, Soft, Other (abdomen distended). No : Tenderness Edema: No Labs: CBC, BMP 01/08/17 06:00 01/08/17 06:00 Assessment/Plan Obstructive uropathy s/p stents Hx MDR urinary tract pathogens Low grade temp/ leukocytosis- resolved Paraplegia Sacral decubitus Large fluid collection L hemipelvis S/P drainage Continue doxycycline 100mg po bid + rifampin 300mg po bid for additional 3 weeks
[2017-01-09 10:46] VITALS: BP 114/60; PULSE 72; TEMP 97.8
== END 2017-01-09 15:23 | disposition home health service (06) | DRG 653 ==
LOC: JER 11:15 → JERBED 18:07 → J6S 20:58 → J7W 11-13 19:20
PROVIDERS: ADMIT Family Medicine; ATTEND Family Medicine
PROC: 0T2BX0Z Change Drainage Device in Bladder, External Approach (ICD-10-PCS; 2016-11-17)
PROC: 0TC08ZZ Extirpation of Matter from Right Kidney, Via Natural or Artificial Opening Endoscopic (ICD-10-PCS; 2016-11-19)
PROC: BT1BZZZ Fluoroscopy of Bladder and Urethra (ICD-10-PCS; 2016-11-19)
PROC: 0TC18ZZ Extirpation of Matter from Left Kidney, Via Natural or Artificial Opening Endoscopic (ICD-10-PCS; principal; 2016-11-19 15:00)
PROC: 0T7B8DZ Dilation of Bladder with Intraluminal Device, Via Natural or Artificial Opening Endoscopic (ICD-10-PCS; 2016-11-19 15:00)
DX: N39.0 Urinary tract infection, site not specified (principal); L89.313 Pressure ulcer of right buttock, stage 3; G82.20 Paraplegia, unspecified; Q43.1 Hirschsprung's disease; R64 Cachexia; B37.89 Other sites of candidiasis; N31.9 Neuromuscular dysfunction of bladder, unspecified; F17.210 Nicotine dependence, cigarettes, uncomplicated; Z16.35 Resistance to multiple antimicrobial drugs; Z75.1 Person awaiting admission to adequate facility elsewhere; N13.2 Hydronephrosis with renal and ureteral calculous obstruction; M54.9 Dorsalgia, unspecified; G90.4 Autonomic dysreflexia; J44.9 Chronic obstructive pulmonary disease, unspecified; D50.9 Iron deficiency anemia, unspecified; K59.03 Drug induced constipation; T45.4X5A Adverse effect of iron and its compounds, initial encounter; D63.8 Anemia in other chronic diseases classified elsewhere; Z68.20 Body mass index [BMI] 20.0-20.9, adult; M25.452 Effusion, left hip; B95.62 Methicillin resistant Staphylococcus aureus infection as the cause of diseases classified elsewhere; B95.2 Enterococcus as the cause of diseases classified elsewhere; B96.5 Pseudomonas (aeruginosa) (mallei) (pseudomallei) as the cause of diseases classified elsewhere
CPT/HCPCS: 36415; 36430; 36556; 49406; 49424; 71010-TC; 73523-TC; 73720-LT; 74000-TC; 74177-TC; 74178-TC; 76000-TC; 76080-TC; 76098-TC; 76775-TC; 76856-TC; 77001-TC; 80048; 80053; 81003; 81015; 82272; 82360; 82565; 82570; 82728; 83540; 83550; 84134; 84484; 85025; 85027; 85651; 86140; 86702; 86850; 86870; 86900; 86901; 86902; 86922; 87040; 87070; 87075; 87077; 87086; 87102; 87184; 87186; 87205; 87210; 87899; 88108; 88300-TC; 88305-TC; 93005; 93010; 93306-TC; 94760; 99282-25; C1729; C1751; C1769; G0480; J1644; J1756; J2997; P9038; P9058; Q9967

== ENCOUNTER 2017-05-12 11:02 | Inpatient (IN) | payer OTHER ==
[2017-05-12 11:29] VITALS: BMI 22.7
--- NOTE | 2017-05-12 11:45 | PDOC ---
History of Present Illness - General History Source: Patient Exam Limitations: No Limitations - History of Present Illness Initial Comments: 05/12/17 13:52 The patient is a 52-year-old male well-known to this institution, with a significant past medical history of T6 paraplegia, neurogenic bladder, who presents to the ED with 1 week of progressive redness and swelling to his left lower back. The patient reports that he had a similar abscess while in the hospital back in December that had to be drained. He reports having a temperature of 100 degrees at home and has been experiencing chills. The patient denies any nausea, vomiting, diarrhea, constipation or abdominal pain. Allergies: Polymyxin B Surgical Hx: orthopedic surgeries Social Hx: No reported tobacco, alcohol, or drug use. PCP: Dr. House <Mary Chatman - Last Filed: 05/12/17 14:02> <Nabil Santiago - Last Filed: 05/12/17 16:55> - General Chief Complaint: Respiratory Stated Complaint: FEVER Time Seen by Provider: 05/12/17 11:28 Past History <Mary Chatman - Last Filed: 05/12/17 14:02> - Past Medical History Anemia: Yes Asthma: No Cancer: No Cardiac Disorders: No CVA: No COPD: Yes CHF: No Dementia: No Diabetes: No GI Disorders: Yes (neurogenic bowel with persistent constipation, GI bleed, cholelithiasis) Disorders: Yes (neurogenic bladder, UTIs, permanent hull) HTN: No Hypercholesterolemia: No Kidney Stones: Yes (haley staghorn calculi, haley stents) Liver Disease: No Seizures: No Thyroid Disease: No Other medical history: paraplegic - Surgical History Abdominal Surgery: No Appendectomy: No Cardiac Surgery: No Cholecystectomy: No Lung Surgery: No Neurologic Surgery: No Orthopedic Surgery: Yes - Family Disease History Family Disease History: Diabetes: Mother, Heart Disease: Father - Immunization History Immunization Up to Date: Yes - Suicide/Smoking/Psychosocial Hx Smoking Status: Yes Smoking History: Current some day smoker Years of Tobacco Use: 35 Have you smoked in the past 12 months: No Number of Cigarettes Smoked Daily: 5 If you are a former smoker, when did you quit?: 03/2014 Cigars Per Day: 5 Information on smoking cessation initiated: No 'Breaking Loose' booklet given: 06/08/15 Hx Alcohol Use: No Drug/Substance Use Hx: No Substance Use Type: None Hx Substance Use Treatment: No <Nabil Santiago - Last Filed: 05/12/17 16:55> - Past Medical History Allergies/Adverse Reactions: Allergies Allergy/AdvReac Type Severity Reaction Status Date / Time polymyxin B Allergy Mild Itching Verified 05/12/17 11:18 Home Medications: Ambulatory Orders NK [No Known Home Medication] 05/12/17 Review of Systems - Review of Systems Able to Perform ROS?: Yes <Mary Chatman - Last Filed: 05/12/17 14:02> - Review of Systems Constitutional: Yes: Chills, Fever (100) Respiratory: No: Cough, Shortness of Breath Cardiac (ROS): No: Chest Pain Musculoskeletal: Yes: See HPI Integumentary: Yes: See HPI Neurological: Yes: See HPI All Other Systems: Reviewed and Negative <Nabil Santiago - Last Filed: 05/12/17 16:55> *Physical Exam - Vital Signs Last Vital Signs Temp Pulse Resp BP Pulse Ox 97.7 F 71 18 131/76 100 05/12/17 11:05 05/12/17 11:05 05/12/17 11:05 05/12/17 11:05 05/12/17 11:05 - Physical Exam Comments: 05/12/17 13:57 GENERAL: The patient is awake, alert, and fully oriented, in no acute distress. Seated in stretcher, generally well-appearing, baseline paraplegia below chest. HEAD: Normal with no signs of trauma. EYES: Pupils equal, round and reactive to light, extraocular movements intact, sclera anicteric, conjunctiva clear with no pallor. ENT: Ears normal, nares patent, oropharynx clear without exudates. Moist mucous membranes. NECK: Normal range of motion, supple without lymphadenopathy, JVD, or masses. LUNGS: Breath sounds equal, clear to auscultation bilaterally. No wheeze/ crackles. HEART: Regular rate and rhythm, normal S1 and S2 without murmur or rub. ABDOMEN: (+)Distended abdomen but soft and nontender, healed surgical incision scar in the mid-abdomen. BS wnl. No guarding or rebound. No palpable masses. No hepatosplenomegaly. GENITOURINARY: (+)Hull catheter in place. EXTREMITIES: Normal range of motion, no edema. No clubbing or cyanosis. No cords, erythema, or tenderness. NEUROLOGICAL: (+)Paraplegia as noted PSYCH: Normal mood, normal affect. SKIN: (+)Chronic sacral decubitus ulcer; left lower back: there is a 10 cm area of indurated erythema with a central 6 cm area of fluctuance, no discharge or bleeding. Warm, Dry, normal turgor. <Mary Chatman - Last Filed: 05/12/17 14:02> - Vital Signs Last Vital Signs Temp Pulse Resp BP Pulse Ox 97.7 F 71 18 131/76 100 05/12/17 11:05 05/12/17 11:05 05/12/17 11:05 05/12/17 11:05 05/12/17 11:05 <Nabil Santiago - Last Filed: 05/12/17 16:55> Heart Score/ECG Review #1 ECG reviewed & interpreted by me at: 13:03 General ECG Interpretation: Sinus Rhythm, Normal Rate (90), Normal Intervals ( qtc 469), No acute ischemic changes <Nabil Santiago - Last Filed: 05/12/17 16:55> ED Treatment Course - LABORATORY CBC & Chemistry Diagram: 05/12/17 12:30 05/12/17 12:30 - ADDITIONAL ORDERS Additional order review: Laboratory Results 05/12/17 12:30 Urine Color Dkyellow Urine Appearance Cloudy Urine pH 6.0 Ur Specific [place] 1.013 Urine Protein 2+ H Urine Glucose (UA) Negative Urine Ketones Negative Urine Blood 2+ H Urine Nitrite Negative Urine Bilirubin Negative Urine Urobilinogen Negative Ur Leukocyte Esterase 3+ H 05/12/17 12:30 RBC 4.64 MCV 81.8 MCHC 31.4 L RDW 15.5 D MPV 8.3 Neutrophils % 78.8 D Lymphocytes % 10.5 D Monocytes % 8.4 Eosinophils % 1.2 D Basophils % 1.1 <Mary Chatman - Last Filed: 05/12/17 14:02> - LABORATORY CBC & Chemistry Diagram: 05/12/17 12:30 05/12/17 12:30 <Nabil Santiago - Last Filed: 05/12/17 16:55> Medical Decision Making - Medical Decision Making 05/12/17 13:15 A portion of this note was documented by scribe services under my direction. I have reviewed the details of the note, within reason, and agree with the documentation with the following case summary and management plan written by me. 52-year-old male well known to this institution with history of a spinal cord injury and paraplegia, neurogenic bladder, staghorn calculi requiring nephrostomies, and recent retroperitoneal abscess requiring drainage about 3 months ago presents now with 1 week of progressive redness and swelling to his left low back, now associated with temperature of 100 with some chills. Afebrile here, refused rectal temperature. I'll signs normal. Well-appearing, conversant, no acute distress Baseline paraplegia below the chest Skin: Large erythematous and fluctuant area over the left low back, no active discharge or bleeding. There is what appears to be a separate chronic decubitus sacral ulcer, abdomen is distended but nontender 52-year-old male with left low back cellulitis and abscess, question skin source but given the history possible extension from a retroperitoneal source. Sepsis protocol initiated We'll start IV antibiotics Will need CT of the abdomen and pelvis to evaluate the extent and depth of the abscess Will need surgery plus or minus IR consultation for drainage 05/12/17 15:26 wbc 13.1 with normal diff, trop negative, lactate 1.9. received abx. Awaiting CT for further imaging of abscess. 05/12/17 15:[address] House, accepts for inpatient med/surg. Will await CTAP results before involving surgery or IR. 05/12/17 16:53 On my preliminary review, loculated sacral abscess, ? extension into RP space. Dr. Verdugo, pt's wound care and plastic surgeon, consulted. <Nabil Santiago - Last Filed: 05/12/17 16:55> *DC/Admit/Observation/Transfer - Attestations Scribe Attestion: 05/12/17 14:03 Documentation prepared by Mary Chatman, acting as emergency medical service coordinator for Nabil Santiago MD. <Mary Chatman - Last Filed: 05/12/17 14:02> - Discharge Dispostion Admit: Yes <Nabil Santiago - Last Filed: 02/27/18 16:55> Diagnosis at time of Disposition: Cellulitis and abscess of buttock, Paraplegia following spinal cord injury, Postprocedural retroperitoneal abscess - Discharge Dispostion Condition at time of disposition: Fair
[2017-05-12] MEDS ORDERED: PIPERACILLIN/TAZOB 4.5 GM/100 ML PREMIX BAG IVPB ONE (12:37)
[2017-05-12] MEDS ORDERED: VANCOMYCIN 1,000 MG in DEXTROSE 5%-WATER - 250 ML IVPB ONE (12:37)
[2017-05-12 12:45] LABS: BASO % 1.1 % (0-2.0); EOS % 1.2 % (0-4.5); HEMATOCRIT 37.9 % (35.4-49); HEMOGLOBIN 11.9 GM/dL (11.7-16.9); LYMPH % 10.5 % (8-40); MCH 25.7 pg (25.7-33.7); MCHC 31.4 g/dl (32.0-35.9); MEAN CELL VOLUME 81.8 fl (80-96); MEAN PLT VOLUME 8.3 fl (7.5-11.1); MONO % 8.4 % (3.8-10.2); NEUT % 78.8 % (42.8-82.8); PLATELET COUNT 250 K/MM3 (134-434); RBC 4.64 M/mm3 (4.00-5.60); RDW 15.5 % (11.9-15.9); WHITE BLOOD COUNT 13.1 K/mm3 (4.0-10.0)
[2017-05-12 12:46] LABS: URINE APPEARANCE CLOUDY; URINE BILIRUBIN NEGATIVE (NEGATIVE); URINE BLOOD 2+ (NEGATIVE); URINE COLOR DKYELLOW; URINE GLUCOSE (UA) NEGATIVE (NEGATIVE); URINE KETONE NEGATIVE (NEGATIVE); URINE NITRITE NEGATIVE (NEGATIVE); URINE UROBILINOGEN NEGATIVE mg/dL (0.2-1.0)
[2017-05-12 12:50] LABS: URINE LEUK ESTERASE 3+ (NEGATIVE); URINE PROTEIN 2+ (NEGATIVE)
[2017-05-12 12:54] LABS: EPI CELLS FEW /HPF (FEW); URINE BACTERIA MANY /hpf (NONE SEEN); URINE MUCUS RARE
[2017-05-12 12:57] LABS: INR 1.18 (0.82-1.09); PROTHROMBIN TIME (PATIENT) 13.3 SEC (9.98-11.88)
[2017-05-12 12:58] LABS: VENOUS PC02 70.1 mmHg (38-52); VENOUS PH 7.21 (7.32-7.42)
[2017-05-12 12:59] LABS: VENOUS PO2 16.7 mmHg (28-48)
[2017-05-12 13:00] LABS: ACTIVATED PTT 32.6 SECONDS (26.9-34.4)
[2017-05-12] MEDS ORDERED: VANCOMYCIN 1 GRAM (PRE-DOCKED) 1,000 MG/250 ML BAG IVPB ONE (13:07)
[2017-05-12] MEDS ORDERED: PIPERACILLIN/TAZOB 4.5 GM 4.5 GM/100 ML BAG IVPB ONE (13:07)
[2017-05-12 14:48] LABS: ALBUMIN 2.5 g/dl (3.4-5.0); ALK PHOS 98 U/L (45-117); ANION GAP 12 (8-16); BILIRUBIN,TOTAL 0.5 mg/dL (0.2-1.0); BLOOD UREA NITROGEN 16 mg/dL (7-18); CALCIUM 8.6 mg/dL (8.5-10.1); CHLORIDE 99 mmol/L (98-107); CO2 25 mmol/L (21-32); CREATININE 0.7 mg/dL (0.7-1.3); GLUCOSE,RANDOM 73 mg/dL (74-106); SGPT/ALT 14 U/L (12-78); SODIUM 136 mmol/L (136-145); TOT PROT 7.9 g/dl (6.4-8.2)
[2017-05-12 14:50] LABS: POTASSIUM 4.2 mmol/L (3.5-5.1); SGOT/AST 24 U/L (15-37)
[2017-05-12] MEDS ORDERED: MUPIROCIN 2% TOPICAL OINTMENT FOR DECOLONIZATION NS SCH (22:00)
[2017-05-12] MEDS ORDERED: CHLORHEXIDINE GLUCONATE 4% CLEANSER FOR DECOLONIZATION TP SCH (22:00)
[2017-05-12] MEDS: D5-1/2NS+20 MEQ KCL - 20 MEQ/1,000 ML INFUS.BAG IV SCH (22:54)
[2017-05-12] MEDS: PIPERACILLIN/TAZOB 4.5 GM 4.5 GM in DEXTROSE 5%-WATER - 100 ML IVPB SCH (22:55)
[2017-05-12] MEDS: HEPARIN NA (PORCINE) 5,000 UNITS/ML 1ML VIAL SQ SCH (22:56)
[2017-05-13] MEDS: PIPERACILLIN/TAZOB 4.5 GM 4.5 GM in DEXTROSE 5%-WATER - 100 ML IVPB SCH (05:51)
[2017-05-13] MEDS: HEPARIN NA (PORCINE) 5,000 UNITS/ML 1ML VIAL SQ SCH ×3 (06:01→21:43)
[2017-05-13 07:34] LABS: BASO % 0.5 % (0-2.0); HEMATOCRIT 34.4 % (35.4-49); HEMOGLOBIN 10.9 GM/dL (11.7-16.9); MCH 25.6 pg (25.7-33.7); MCHC 31.6 g/dl (32.0-35.9); MEAN CELL VOLUME 81.1 fl (80-96); MONO % 8.3 % (3.8-10.2); NEUT % 83.2 % (42.8-82.8); PLATELET COUNT 195 K/MM3 (134-434); RBC 4.25 M/mm3 (4.00-5.60); RDW 15.5 % (11.9-15.9); WHITE BLOOD COUNT 6.8 K/mm3 (4.0-10.0)
--- NOTE | 2017-05-13 07:38 | PN ---
Progress Note, Physician Chief Complaint: ID This is one of multiple admissions for this 52 year old man with paraplegia and recurrent resistant urinary infections as well as a retroperitoneal abscess left side. Apparently the abscess has recurred as for 7-10 days he has notice (his nurse) swelling and redness over the right hip and flank area. He also note some spotting of blood in that area. He denies fevers and chills. MDRO cultures from the abscess previuosly. See cultures below. - Current Medication List Current Medications: Active Medications Heparin Sodium (Porcine) (Heparin -) 5,000 unit SQ TID [facility] Last Admin: 05/13/17 06:01 Dose: Not Given Potassium Chloride/Dextrose/Sod Cl (D5-1/2ns+20 Meq Kcl -) 20 meq in 1,000 mls @ 125 mls/hr IV ASDIR [facility] Last Admin: 05/12/17 22:54 Dose: 125 mls/hr Piperacillin/Tazobactam/Dextrose (Zosyn 4.5gm Ivpb (Premix)) 4.5 gm IVPB Q8H- IV [facility] - Objective Vital Signs: Vital Signs Temperature 98.9 F 05/12/17 21:00 Pulse Rate 81 05/12/17 21:00 Respiratory Rate 18 05/12/17 21:00 Blood Pressure 124/72 05/12/17 21:00 O2 Sat by Pulse Oximetry (%) 97 05/12/17 21:00 Constitutional: Yes: No Distress, Other (pale) Neck: Yes: WNL, Supple Cardiovascular: Yes: Regular Rate and Rhythm, S1, S2 Respiratory: Yes: WNL, Regular, CTA Bilaterally Gastrointestinal: Yes: WNL, Normal Bowel Sounds, Soft, Distention Extremities: Yes: Other (Erythema and fluctuance over the left hip area Open groin wound chronic no drainage) Labs: INR, PTT INR 1.18 (0.82-1.09) H 05/12/17 12:30 Problem List - Problems (1) Paraplegia following spinal cord injury Code(s): G82.20 - PARAPLEGIA, UNSPECIFIED (2) Retroperitoneal fluid collection Code(s): R18.8 - OTHER ASCITES (3) MDRO (multiple drug resistant organisms) resistance Code(s): Z16.35 - RESISTANCE TO MULTIPLE ANTIMICROBIAL DRUGS (4) Multiple drug resistant organism (MDRO) culture positive Code(s): Z16.24 - RESISTANCE TO MULTIPLE ANTIBIOTICS Assessment/Plan Microbiology 12/22/16 21:37 Catheter Site VALENTE Preparation - Final 12/22/16 21:37 Catheter Site Fungal Culture - Final Zamzam Albicans 12/22/16 21:36 Drainage Gram Stain - Final 12/22/16 21:36 Drainage Anaerobic Culture - Final Vr Ec Faecalis Acinetobacter Baumannii/Haemol Pseudomonas Aeruginosa Yeast Like Organism NO ANAEROBES WERE ISOLATED 12/22/16 21:34 Drainage Gram Stain - Final 12/22/16 21:34 Drainage Anaerobic Culture - Final Pseudomonas Aeruginosa Vr Ec Faecalis Yeast Like Organism 12/21/16 11:30 Peritoneal Fluid Gram Stain - Final 12/21/16 11:30 Peritoneal Fluid Anaerobic Culture - Final Pseudomonas Aeruginosa Pseudomonas Aeruginosa#2 Yeast Like Organism Vr Ec Faecalis 12/11/16 17:00 Peritoneal Fluid Gram Stain - Final 12/11/16 17:00 Peritoneal Fluid Anaerobic Culture - Final Mr S Aureus Enterococcus Faecalis Mr S Aureus#2 NO ANAEROBES WERE ISOLATED Laboratory Tests 05/12/17 05/12/17 12:30 12:30 WBC 13.1 H D Hgb 11.9 Plt Count 250 D Urine WBC (Auto) 352 Urine Bacteria Many Assessment Retroperitoneal abscess and gluteal abscess recurrent from the orignal infection tracking outward looking to erupt through the left hip area He has multiple organisms all resistant to antibiotics !! Plan Discussed with Dr Verdugo who knows him well Advise general surgery and urology evaluation for consideration of an open drainage surgery as I am unsure a simple catheter drainage will be sufficient For now no antibiotics until we decide on surgery as to get reliable operative cultures for antibiotic guidance. This is a chronic issue and he does not look acutely ill at this time. Antibiotics alone at this time will do very little or nothing OBtain CRP ESR Sarah LUX
[2017-05-13 08:01] LABS: ALBUMIN 2.1 g/dl (3.4-5.0); ANION GAP 9 (8-16); BILIRUBIN,TOTAL 0.5 mg/dL (0.2-1.0); BLOOD UREA NITROGEN 15 mg/dL (7-18); CALCIUM 7.9 mg/dL (8.5-10.1); CHLORIDE 100 mmol/L (98-107); CO2 27 mmol/L (21-32); GLUCOSE,RANDOM 107 mg/dL (74-106); POTASSIUM 4.4 mmol/L (3.5-5.1); SGOT/AST 12 U/L (15-37); SGPT/ALT 11 U/L (12-78); SODIUM 136 mmol/L (136-145); TOT PROT 6.6 g/dl (6.4-8.2)
[2017-05-13 08:03] LABS: ALK PHOS 82 U/L (45-117)
[2017-05-13] MEDS: PIPERACILLIN/TAZOB 4.5 GM/100 ML PREMIX BAG IVPB SCH (10:27)
--- NOTE | 2017-05-13 11:06 | EKG ---
Test Reason : Blood Pressure : / mmHG Vent. Rate : 090 BPM Atrial Rate : 090 BPM P-R Int : 132 ms QRS Dur : 102 ms QT Int : 384 ms P-R-T Axes : 057 051 030 degrees QTc Int : 469 ms POOR DATA QUALITY, INTERPRETATION MAY BE ADVERSELY AFFECTED NORMAL SINUS RHYTHM POSSIBLE LEFT ATRIAL ENLARGEMENT POSSIBLE LATERAL INFARCT (CITED ON OR BEFORE 12-MAY-2017) ABNORMAL ECG WHEN COMPARED WITH ECG OF 14-NOV-2016 08:36, NO SIGNIFICANT CHANGE WAS FOUND Confirmed by SUNIL LUX, BRIDGET ([id number]) on 05/13/2017 11:05:48 AM Referred By: Confirmed By:BRIDGET BARBER MD
[2017-05-13] MEDS: D5-1/2NS+20 MEQ KCL - 20 MEQ/1,000 ML INFUS.BAG IV SCH (11:14)
--- NOTE | 2017-05-13 11:40 | EKG ---
Test Reason : Blood Pressure : / mmHG Vent. Rate : 073 BPM Atrial Rate : 073 BPM P-R Int : 146 ms QRS Dur : 112 ms QT Int : 394 ms P-R-T Axes : 053 052 039 degrees QTc Int : 434 ms NORMAL SINUS RHYTHM POSSIBLE LEFT ATRIAL ENLARGEMENT LATERAL INFARCT (CITED ON OR BEFORE 12-MAY-2017) INFERIOR INFARCT , AGE UNDETERMINED ABNORMAL ECG WHEN COMPARED WITH ECG OF 12-MAY-2017 13:03, NO SIGNIFICANT CHANGE WAS FOUND Confirmed by SUNIL LUX, BRIDGET ([id number]) on 05/13/2017 11:39:56 AM Referred By: ZENA KRAMER Confirmed By:BRIDGET BARBER MD
--- NOTE | 2017-05-13 12:04 | HP ---
Admitting History and Physical - Primary Care Physician PCP: Leola House - Admission Chief Complaint: Retroperitoneal abscess and gluteal abscess History of Present Illness: he patient is a 52-year-old male well-known to this institution, with a significant past medical history of T6 paraplegia, neurogenic bladder, who presents to the ED with 1 week of progressive redness and swelling to his left lower back. The patient reports that he had a similar abscess while in the hospital back in December that had to be drained. He reports having a temperature of 100 degrees at home and has been experiencing chills. The patient denies any nausea, vomiting, diarrhea, constipation or abdominal pain. History Source: Patient, Medical Record Limitations to Obtaining History: No Limitations - Past Medical History Pulmonary: Yes: COPD Gastrointestinal: Yes: Constipation (Neurogenic bowel with persistent obstipation and megasigmoid), GI Bleed (BRBPR see HPI) Hepatobiliary: Yes: Cholelithiasis Renal/: Yes: Neurogenic Bladder (indwelling Pelaez), Renal Calculi (bilateral staghorn with h/o obstructions and other calculi), UTI, Other (JJ bilat stents, permanent Pelaez; partially duplicated left renal collecting system) Heme/Onc: Yes: Anemia Infectious Disease: Yes: MRSA, Other (resistant organisms, pseudomonas and esbl gram negatives, history polymicrobial bacteremia) Musculoskeletal: Yes: Paraplegia - Past Surgical History Past Surgical History: Yes: Stent (bilateral ureteral stents - multiple exchanges) - Smoking History Smoking history: Current some day smoker Have you smoked in the past 12 months: No Aproximately how many cigarettes per day: 15 If you are a former smoker, when did you quit?: 03/2014 - Alcohol/Substance Use Hx Alcohol Use: No - Social History ADL: Support Services (his mother lives in the same house also has home health aides) History of Recent Travel: No Home Medications - Allergies Allergies/Adverse Reactions: Allergies Allergy/AdvReac Type Severity Reaction Status Date / Time polymyxin B Allergy Mild Itching Verified 05/12/17 11:18 - Home Medications Home Medications: Ambulatory Orders NK [No Known Home Medication] 05/12/17 Family Disease History - Family Disease History Family Disease History: Diabetes: Mother, Heart Disease: Father Review of Systems - Review of Systems Constitutional: reports: Malaise Eyes: reports: No Symptoms HENT: reports: No Symptoms Neck: reports: No Symptoms Cardiovascular: reports: No Symptoms Respiratory: reports: No Symptoms Gastrointestinal: reports: No Symptoms Genitourinary: reports: No Symptoms Musculoskeletal: reports: Joint Swelling (left hip) Integumentary: reports: Erythema (left hip) Neurological: reports: No Symptoms Endocrine: reports: No Symptoms Hematology/Lymphatic: reports: No Symptoms Psychiatric: reports: No Symptoms Physical Examination Vital Signs: Vital Signs Temperature 98.9 F 05/12/17 21:00 Pulse Rate 66 05/13/17 08:00 Respiratory Rate 18 05/13/17 08:00 Blood Pressure 101/53 05/13/17 08:00 O2 Sat by Pulse Oximetry (%) 97 05/12/17 21:00 Constitutional: Yes: Well Nourished, No Distress, Calm Cardiovascular: Yes: Regular Rate and Rhythm Respiratory: Yes: Regular Gastrointestinal: Yes: Normal Bowel Sounds, Soft Musculoskeletal: Yes: Joint Swelling (left hip) Extremities: Yes: Erythema (left hip) Neurological: Yes: Alert, Oriented Psychiatric: Yes: Alert, Oriented Labs: CBC, BMP 05/13/17 07:00 05/13/17 07:00 Imaging - Results Cat Scan: Report Reviewed Problem List - Problems (1) Cellulitis and abscess of buttock Assessment/Plan: -Retroperitoneal abscess and gluteal abscess -seen by ID -Surgery Consult -Hold abx for now -monitor labs and vitals Code(s): L02.31 - CUTANEOUS ABSCESS OF BUTTOCK; L03.317 - CELLULITIS OF BUTTOCK (2) MDRO (multiple drug resistant organisms) resistance Assessment/Plan: -Patient known to service and ID -Await surgical culture for abx treatment Code(s): Z16.35 - RESISTANCE TO MULTIPLE ANTIMICROBIAL DRUGS (3) Paraplegia following spinal cord injury Assessment/Plan: Chronic Code(s): G82.20 - PARAPLEGIA, UNSPECIFIED Assessment/Plan see problem list
--- NOTE | 2017-05-13 15:37 | PN ---
Progress Note (short form) - Note Progress Note: PULMONARY CONSULTATION DICTATED 05/13/17 IMP ACUTE HYPERCAPNEIC RESPIRATORY FAILURE COPD/ILD SEPSIS LEFT RETROPERITONEAL/GLUTEAL ABSCESS H/O RECURRENT UTIS ABDOMINAL DISTENTION/MEGACOLON PLAN O2 INHALED BRONCHODILATORS ABG IVF ABX PER ID NIPPV IF PT DEVELOPES INCREASED RESPIRATORY DISTRESS/LETHARGY CULTURES SURGICAL CONSULT DR DOE Problem List - Problems (1) Acute hypercapnic respiratory failure Code(s): J96.02 - ACUTE RESPIRATORY FAILURE WITH HYPERCAPNIA (2) Cellulitis and abscess of buttock Code(s): L02.31 - CUTANEOUS ABSCESS OF BUTTOCK; L03.317 - CELLULITIS OF BUTTOCK (3) Paraplegia following spinal cord injury Code(s): G82.20 - PARAPLEGIA, UNSPECIFIED (4) Acquired functional megacolon Code(s): K59.39 - OTHER MEGACOLON (5) Anemia Code(s): D64.9 - ANEMIA, UNSPECIFIED Qualifiers: Anemia type: iron deficiency Other causes of anemia: due to other specified chronic disease (6) COPD (chronic obstructive pulmonary disease) Code(s): J44.9 - CHRONIC OBSTRUCTIVE PULMONARY DISEASE, UNSPECIFIED Qualifiers: COPD type: COPD with acute exacerbation Qualified Code(s): J44.1 - Chronic obstructive pulmonary disease with (acute) exacerbation (7) Chronic indwelling Pelaez catheter Code(s): Z92.89 - PERSONAL HISTORY OF OTHER MEDICAL TREATMENT (8) Constipation due to neurogenic bowel Code(s): K59.00 - CONSTIPATION, UNSPECIFIED (9) Retroperitoneal abscess Code(s): K68.19 - OTHER RETROPERITONEAL ABSCESS (10) Gluteal abscess Code(s): L02.31 - CUTANEOUS ABSCESS OF BUTTOCK (11) Interstitial lung disease Code(s): J84.9 - INTERSTITIAL PULMONARY DISEASE, UNSPECIFIED
[2017-05-13] MEDS ORDERED: ALBUTEROL SO4 0.083% IH SOL 2.5 MG/3 ML VIAL.NEB. NEB PRN (15:42)
[2017-05-13 16:23] LABS: ARTERIAL BLD GAS O2 SATURATION 95.3 % (90-98.9); ARTERIAL BLOOD GAS BASE EXCESS 1.4 meq/l (-2-2); ARTERIAL BLOOD GAS PCO2 38.5 mmHg (35-45); ARTERIAL BLOOD GAS PO2 73.6 mmHg (80-100); ARTERIAL BLOOD GAS pH 7.43 (7.35-7.45)
[2017-05-13 16:25] LABS: ALLENS TEST POSITIVE
[2017-05-13] MEDS: MINERAL OIL ENEMA 133 ML ENEMA PR SCH (16:30)
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
[2017-05-14] MEDS: HEPARIN NA (PORCINE) 5,000 UNITS/ML 1ML VIAL SQ SCH ×3 (06:35→21:43)
[2017-05-14 08:00] LABS: BASO % 0.5 % (0-2.0); EOS % 2.6 % (0-4.5); HEMATOCRIT 33.1 % (35.4-49); HEMOGLOBIN 10.8 GM/dL (11.7-16.9); MCH 26.6 pg (25.7-33.7); MCHC 32.8 g/dl (32.0-35.9); MEAN CELL VOLUME 81.3 fl (80-96); MONO % 10.4 % (3.8-10.2); NEUT % 74.5 % (42.8-82.8); PLATELET COUNT 203 K/MM3 (134-434); RBC 4.07 M/mm3 (4.00-5.60); RDW 15.5 % (11.9-15.9); WHITE BLOOD COUNT 5.9 K/mm3 (4.0-10.0)
[2017-05-14 09:28] LABS: ALBUMIN 2.2 g/dl (3.4-5.0); ALK PHOS 78 U/L (45-117); ANION GAP 7 (8-16); BILIRUBIN,TOTAL 0.3 mg/dL (0.2-1.0); BLOOD UREA NITROGEN 23 mg/dL (7-18); CALCIUM 7.5 mg/dL (8.5-10.1); CHLORIDE 105 mmol/L (98-107); CO2 27 mmol/L (21-32); CREATININE 0.7 mg/dL (0.7-1.3); GLUCOSE,RANDOM 76 mg/dL (74-106); SGOT/AST 14 U/L (15-37); SGPT/ALT 12 U/L (12-78); SODIUM 139 mmol/L (136-145); TOT PROT 6.5 g/dl (6.4-8.2)
[2017-05-14] MEDS: MINERAL OIL ENEMA 133 ML ENEMA PR SCH (10:00)
--- NOTE | 2017-05-14 11:37 | PN ---
Progress Note (short form) - Note Progress Note: ID Surgical read and appreciated. Plan is to refer to IR for drainage as opposed to open drainage procedure Currently on no antibiotics Selected Entries 05/14/17 06:21 Temperature 98.5 F Pulse Rate 70 Respiratory 19 Rate Blood Pressure 100/62 Microbiology 05/12/17 11:46 Urine - Urine - Catheterized Urine Culture - Final Contaminated: Please Repeat 05/12/17 11:46 Blood - Peripheral Venous Blood Culture - Preliminary NO GROWTH OBTAINED AFTER 24 HOURS, INCUBATION TO CONTINUE FOR 4 DAYS. 05/12/17 11:46 Blood - Peripheral Venous Blood Culture - Preliminary NO GROWTH OBTAINED AFTER 24 HOURS, INCUBATION TO CONTINUE FOR 4 DAYS. Laboratory Tests 05/13/17 05/14/17 05/14/17 07:00 07:30 07:30 WBC 5.9 RBC 4.07 Hgb 10.8 L Plt Count 203 ESR 70 H BUN Creatinine C-Reactive Protein 12.5 H 05/14/17 07:30 WBC RBC Hgb Plt Count ESR BUN 23 H D Creatinine 0.7 D C-Reactive Protein Assessment Extensive recurrent retroperitoneal abscess related to the kidney infection extension to hip History of polymicrobial organisms mostly panresistant will present a definate dilemma as to what we can give him Plan For now deferring antibiotic until we accomplish drainage so we can have at least a reliable culture with no antibiotic on board [facility] Problem List - Problems (1) Paraplegia following spinal cord injury Code(s): G82.20 - PARAPLEGIA, UNSPECIFIED (2) Retroperitoneal fluid collection Code(s): R18.8 - OTHER ASCITES (3) MDRO (multiple drug resistant organisms) resistance Code(s): Z16.35 - RESISTANCE TO MULTIPLE ANTIMICROBIAL DRUGS (4) Multiple drug resistant organism (MDRO) culture positive Code(s): Z16.24 - RESISTANCE TO MULTIPLE ANTIBIOTICS
[2017-05-14] MEDS ORDERED: SENNOSIDES 8.6MG TABLET (FP) PO ONE (11:48)
--- NOTE | 2017-05-14 11:59 | PN ---
Progress Note, Physician Chief Complaint: L hip/flank redness, swelling History of Present Illness: Paraplegic pt with recurrent left retroperitoneal abscess of likely urologic origin, extending into posterolateral hip and gluteal tissues. Also with neurogenic bladder and bowel, with massive fecal impaction, mostly above rectal vault. Pt seen and examined in bed, no specific complaints. No stool yet, indwelling Pelaez and ureteral stents in place. Urology yet to see. Willing to take senna and soap suds enema today to try and encourage colon motility to evacuate stool burden. IR drainage of abscess planned. - Current Medication List Current Medications: Active Medications Albuterol Sulfate (Ventolin 0.083% Nebulizer Soln -) 1 amp NEB Q4H PRN PRN Reason: SHORT OF BREATH/WHEEZING Heparin Sodium (Porcine) (Heparin -) 5,000 unit SQ TID [facility] Last Admin: 05/14/17 06:35 Dose: Not Given Potassium Chloride/Dextrose/Sod Cl (D5-1/2ns+20 Meq Kcl -) 20 meq in 1,000 mls @ 125 mls/hr IV ASDIR [facility] Last Admin: 05/13/17 11:14 Dose: 125 mls/hr Mineral Oil (Fleet Mineral Oil Rectal Enema -) 133 ml IA DAILY [facility] Last Admin: 05/13/17 16:30 Dose: Not Given Senna (Senna -) 2 tab PO HS [facility] Senna (Senna -) 2 tab PO NOW ONE Stop: 05/14/17 11:49 - Objective Vital Signs: Vital Signs Temperature 97 F L 05/14/17 11:39 Pulse Rate 75 05/14/17 11:39 Respiratory Rate 20 05/14/17 11:39 Blood Pressure 98/53 05/14/17 11:39 O2 Sat by Pulse Oximetry (%) 97 05/13/17 09:00 Constitutional: Yes: No Distress, Calm, Thin Eyes: Yes: Conjunctiva Clear, EOM Intact HENT: Yes: Atraumatic, Normocephalic Gastrointestinal: Yes: Distention (firm in lower 2/3 with known stool burden, soft at epigastric area). No: Tenderness (T6 paraplegic) ...Rectal Exam: Yes: Deferred (for now - if little results today from senna/ enema, will eval for disimpaction tomorrow) Genitourinary: Yes: Pelaez Present. No: Hematuria Extremities: No: Cool, Cyanosis Integumentary: Yes: Erythema (L hip/flank with edema), Pressure Ulcer (sacral with dressing, not examined) Neurological: Yes: Alert, Oriented Labs: CBC, BMP 05/14/17 07:30 05/14/17 07:30 Problem List - Problems (1) Postprocedural retroperitoneal abscess Assessment/Plan: Pt with recurrence of left retroperitoneal collection/abscess with extension into posterolateral hip and gluteal regions, previously discovered to be urologic in origin. IR consulted for repeat drain placement. Need to send fluid for creatinine as well as culture. Urology consultation to address Pelaez, stents, hydronephrosis - which may be contributing to internal pressure causing urine leakage from the kidney into the adjacent tissue planes. Code(s): K68.11 - POSTPROCEDURAL RETROPERITONEAL ABSCESS (2) Fecal impaction of colon Assessment/Plan: Patient willing to take senna and soap suds enema. Ordered both for today. Will f/u in am and try manual disimpaction then if needed. Hope to continue with senna nightly after that, especially if positive results. If stool begins to empty, could try maintaining on 2 tabs nightly. AXR could be used to follow stool burden -- once moving and clearing, could also complete clean-out with Golytely. Pt will need to incorporate motility agents into his daily medication regimen, along with routine disimpaction and enemas, to keep his colon (not just rectal vault) emptied regularly. Code(s): K56.41 - FECAL IMPACTION (3) Acquired functional megacolon Code(s): K59.39 - OTHER MEGACOLON (4) Constipation due to neurogenic bowel Code(s): K59.00 - CONSTIPATION, UNSPECIFIED (5) Bilateral nephrolithiasis Code(s): N20.0 - CALCULUS OF KIDNEY (6) Neurogenic bladder Code(s): N31.9 - NEUROMUSCULAR DYSFUNCTION OF BLADDER, UNSPECIFIED (7) Chronic indwelling Pelaez catheter Code(s): Z92.89 - PERSONAL HISTORY OF OTHER MEDICAL TREATMENT (8) Sacral decubitus ulcer Code(s): L89.159 - PRESSURE ULCER OF SACRAL REGION, UNSPECIFIED STAGE Qualifiers: Pressure ulcer stage: unspecified pressure ulcer stage Qualified Code(s): L89.159 - Pressure ulcer of sacral region, unspecified stage (9) Paraplegia following spinal cord injury Code(s): G82.20 - PARAPLEGIA, UNSPECIFIED (10) COPD (chronic obstructive pulmonary disease) Code(s): J44.9 - CHRONIC OBSTRUCTIVE PULMONARY DISEASE, UNSPECIFIED Qualifiers: COPD type: unspecified COPD Qualified Code(s): J44.9 - Chronic obstructive pulmonary disease, unspecified
--- NOTE | 2017-05-14 12:19 | PN ---
Progress Note (short form) - Note Progress Note: NAD on RA. No acute events overnight. No CP or SOB. Intake & Output 05/11/17 05/12/17 05/13/17 05/14/17 23:59 23:59 23:59 23:59 Intake Total 1915 530 Output Total 1000 1000 400 Balance -1000 915 130 Weight 145 lb Last Vital Signs Temp Pulse Resp BP Pulse Ox 97 F L 75 20 98/53 97 05/14/17 11:39 05/14/17 11:39 05/14/17 11:39 05/14/17 11:39 05/13/17 09:00 Active Medications Albuterol Sulfate (Ventolin 0.083% Nebulizer Soln -) 1 amp NEB Q4H PRN PRN Reason: SHORT OF BREATH/WHEEZING Heparin Sodium (Porcine) (Heparin -) 5,000 unit SQ TID [facility] Last Admin: 05/14/17 06:35 Dose: Not Given Potassium Chloride/Dextrose/Sod Cl (D5-1/2ns+20 Meq Kcl -) 20 meq in 1,000 mls @ 125 mls/hr IV ASDIR [facility] Last Admin: 05/13/17 11:14 Dose: 125 mls/hr Mineral Oil (Fleet Mineral Oil Rectal Enema -) 133 ml SC DAILY [facility] Last Admin: 05/13/17 16:30 Dose: Not Given Senna (Senna -) 2 tab PO HS [facility] Constitutional: Yes: No Distress, Thin Eyes: Yes: Conjunctiva Clear, EOM Intact HENT: Yes: Atraumatic, Normocephalic Gastrointestinal: Yes: Distended, firm, (+) BS ...Rectal Exam: Yes: Deferred Genitourinary: Yes: Pelaez Present. No: Hematuria Extremities: No: Cool, Cyanosis Integumentary: Yes: Erythema (L hip/flank with edema) Neurological: Yes: Alert, Oriented Laboratory Results - last 24 hr 05/13/17 05/14/17 05/14/17 16:15 07:30 07:30 WBC 5.9 RBC 4.07 Hgb 10.8 L Hct 33.1 L MCV 81.3 MCH 26.6 MCHC 32.8 RDW 15.5 Plt Count 203 MPV 8.0 Neutrophils % 74.5 Lymphocytes % 12.0 D Monocytes % 10.4 H Eosinophils % 2.6 Basophils % 0.5 ESR 70 H Puncture Site Right radial ABG pH 7.43 ABG pCO2 at Pt Temp 38.5 ABG pO2 at Pt Temp 73.6 L ABG HCO3 25.2 ABG O2 Sat (Measured) 95.3 ABG O2 Content 13.9 L ABG Base Excess 1.4 Heath Test Positive Oxygen Flow Rate No Sodium Potassium Chloride Carbon Dioxide Anion Gap BUN Creatinine Creat Clearance w eGFR Random Glucose Calcium Total Bilirubin AST ALT Alkaline Phosphatase Total Protein Albumin 05/14/17 07:30 WBC RBC Hgb Hct MCV MCH MCHC RDW Plt Count MPV Neutrophils % Lymphocytes % Monocytes % Eosinophils % Basophils % ESR Puncture Site ABG pH ABG pCO2 at Pt Temp ABG pO2 at Pt Temp ABG HCO3 ABG O2 Sat (Measured) ABG O2 Content ABG Base Excess Heath Test Oxygen Flow Rate Sodium 139 Potassium 4.0 Chloride 105 Carbon Dioxide 27 Anion Gap 7 L BUN 23 H D Creatinine 0.7 D Creat Clearance w eGFR > 60 Random Glucose 76 D Calcium 7.5 L Total Bilirubin 0.3 D AST 14 L ALT 12 Alkaline Phosphatase 78 Total Protein 6.5 Albumin 2.2 L Problem List - Problems (1) Acute hypercapnic respiratory failure Code(s): J96.02 - ACUTE RESPIRATORY FAILURE WITH HYPERCAPNIA (2) Cellulitis and abscess of buttock Code(s): L02.31 - CUTANEOUS ABSCESS OF BUTTOCK; L03.317 - CELLULITIS OF BUTTOCK (3) Paraplegia following spinal cord injury Code(s): G82.20 - PARAPLEGIA, UNSPECIFIED (4) Acquired functional megacolon Code(s): K59.39 - OTHER MEGACOLON (5) Anemia Code(s): D64.9 - ANEMIA, UNSPECIFIED Qualifiers: Anemia type: iron deficiency Other causes of anemia: due to other specified chronic disease (6) COPD (chronic obstructive pulmonary disease) Code(s): J44.9 - CHRONIC OBSTRUCTIVE PULMONARY DISEASE, UNSPECIFIED Qualifiers: COPD type: COPD with acute exacerbation Qualified Code(s): J44.1 - Chronic obstructive pulmonary disease with (acute) exacerbation (7) Chronic indwelling Pelaez catheter Code(s): Z92.89 - PERSONAL HISTORY OF OTHER MEDICAL TREATMENT (8) Constipation due to neurogenic bowel Code(s): K59.00 - CONSTIPATION, UNSPECIFIED (9) Retroperitoneal abscess Code(s): K68.19 - OTHER RETROPERITONEAL ABSCESS (10) Gluteal abscess Code(s): L02.31 - CUTANEOUS ABSCESS OF BUTTOCK (11) Interstitial lung disease Code(s): J84.9 - INTERSTITIAL PULMONARY DISEASE, UNSPECIFIED IMP COPD/ILD SEPSIS LEFT RETROPERITONEAL/GLUTEAL ABSCESS H/O RECURRENT UTIS ABDOMINAL DISTENTION/MEGACOLON PLAN O2 INHALED BRONCHODILATORS IVF OFF ABX PER ID NO NEED FOR NIPPV AT THIS TIME PLAN FOR IR DRAINAGE DR COULTER
--- NOTE | 2017-05-14 13:11 | PN ---
Progress Note, Physician Chief Complaint: patient seen and examined willing to take senna and enema IR aware of request for drainage will happen tmw once bowel movement is achieved - Current Medication List Current Medications: Active Medications Albuterol Sulfate (Ventolin 0.083% Nebulizer Soln -) 1 amp NEB Q4H PRN PRN Reason: SHORT OF BREATH/WHEEZING Heparin Sodium (Porcine) (Heparin -) 5,000 unit SQ TID [facility] Last Admin: 05/14/17 06:35 Dose: Not Given Potassium Chloride/Dextrose/Sod Cl (D5-1/2ns+20 Meq Kcl -) 20 meq in 1,000 mls @ 125 mls/hr IV ASDIR [facility] Last Admin: 05/13/17 11:14 Dose: 125 mls/hr Mineral Oil (Fleet Mineral Oil Rectal Enema -) 133 ml [place] DAILY [facility] Last Admin: 05/13/17 16:30 Dose: Not Given Senna (Senna -) 2 tab PO HS [facility] - Objective Vital Signs: Vital Signs Temperature 97 F L 05/14/17 11:39 Pulse Rate 75 05/14/17 11:39 Respiratory Rate 20 05/14/17 11:39 Blood Pressure 98/53 05/14/17 11:39 O2 Sat by Pulse Oximetry (%) 97 05/13/17 09:00 Constitutional: Yes: Calm Cardiovascular: Yes: Regular Rate and Rhythm, Murmur, S1, S2 Respiratory: Yes: CTA Bilaterally Gastrointestinal: Yes: Normal Bowel Sounds, Soft, Distention Musculoskeletal: Yes: Other (left hip) Wound/Incision: Yes: Other (sacral wound) Neurological: Yes: Alert, Oriented, Pre-Existing Deficit Labs: CBC, BMP 05/14/17 07:30 05/14/17 07:30 INR, PTT INR 1.18 (0.82-1.09) H 05/12/17 12:30 Problem List - Problems (1) Postprocedural retroperitoneal abscess Assessment/Plan: IR to drain abscess in morning awaitng BM to get senna and possible enema as well urology consult Code(s): K68.11 - POSTPROCEDURAL RETROPERITONEAL ABSCESS (2) Interstitial lung disease Assessment/Plan: seen by pulmonary bronchodilators Code(s): J84.9 - INTERSTITIAL PULMONARY DISEASE, UNSPECIFIED (3) Paraplegia following spinal cord injury Assessment/Plan: position and turn dvt ppx refusing heparin today Code(s): G82.20 - PARAPLEGIA, UNSPECIFIED (4) Chronic indwelling Pelaez catheter Assessment/Plan: urology to see patient Code(s): Z92.89 - PERSONAL HISTORY OF OTHER MEDICAL TREATMENT (5) Sacral decubitus ulcer Assessment/Plan: wound care dr snider Code(s): L89.159 - PRESSURE ULCER OF SACRAL REGION, UNSPECIFIED STAGE Qualifiers: Pressure ulcer stage: unspecified pressure ulcer stage Qualified Code(s): L89.159 - Pressure ulcer of sacral region, unspecified stage (6) Fecal impaction Assessment/Plan: senna and enema Code(s): K56.41 - FECAL IMPACTION
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
[2017-05-14] MEDS: D5-1/2NS+20 MEQ KCL - 20 MEQ/1,000 ML INFUS.BAG IV SCH (21:43)
[2017-05-14] MEDS: SENNOSIDES 8.6MG TABLET (FP) PO SCH (21:43)
[2017-05-14] MEDS ORDERED: IBUPROFEN 600 MG TABLET (FP) PO ONE (23:09)
--- NOTE | 2017-05-15 02:06 | CONS ---
DATE OF CONSULTATION: DATE OF DICTATION: 05/14/2017 REQUESTING PHYSICIAN: Nabil Santiago MD REASON FOR CONSULTATION: Soft tissue mass on his lower back. Patient mentions he started to see a mass and redness, swelling of his lower back that started approximately over a week ago. He then developed chills. He had a similar abscess for which he had been admitted in the hospital in December and had undergone drainage. At this time, his temperature has been 100 and has been experiencing chills. He denies any kind of trauma, nausea, vomiting, or diarrhea, constipation or abdominal pain. PAST MEDICAL HISTORY: Relevant for T6 paraplegia, neurogenic bladder, and multiple grade 4 decubiti. Patient also has a history of repeated urinary tract infections. He has a history of anemia. No history of asthma and no cancer. No cardiac disorders, but does have COPD due to tobacco intake. He has experienced cholelithiasis, GI bleeding, has kidney stones with bilateral staghorn calculi, and bilateral stents. No history of liver disease, seizures. No history of surgery related to appendix, cardiac, cholecystectomy, lung injury, orthopedic disease, or abdominal surgery. He has had surgeries related to multiple decubiti including removal and ostectomies. FAMILY HISTORY: Relevant for diabetes with mother and heart disease with father. PHYSICAL EXAMINATION: A soft mass located in his left lower back, large area, fluctuant in nature. Decubiti are much basin cleaner, but grade 4 in nature, ischial and sacral. Discussed with Dr. Smith. At this stage, this mass is around the peritoneal area. It will require general surgery or urologist. Possible source of infection needs to be defined as this is the second time the patient has had a similar problem. It is a possibility that he will require peritoneal drainage. His lab work shows a white count at the time of admission was 13.1. Since then, it is now reduced to 5.9. Hemoglobin 10.8. MCV 81.3. Neutrophils 82 and came down to now 74.5. Lymphocytes were 6, low, today they are 12. ESR is 70. Monocytes are 10.4. His chemistry: Sodium is within normal limits. BUN is 23, random glucose was 107 and today 76, calcium 7.5, AST is 14. Total protein is 6.5, albumin is 2.2. C-reactive protein is 12.5. FINAL DIAGNOSIS: Sepsis, left retroperitoneal and gluteal abscess, history of recurrent urinary tract infection, abdominal distention, megacolon. PLAN: Regarding wound care on the decubiti, he will be treated with Silvadene cream daily. At this stage, no surgery is being planned for decubiti until his present condition improves. Thank you for the consultation. MARKELL GRAVES M.D. [id number]
[2017-05-15] MEDS: HEPARIN NA (PORCINE) 5,000 UNITS/ML 1ML VIAL SQ SCH ×3 (06:11→21:48)
[2017-05-15] MEDS: SILVER SULFADIAZINE 1% TOP CREAM 50 GM JAR TP SCH (12:00)
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
--- NOTE | 2017-05-15 12:58 | PN ---
Progress Note, Physician Chief Complaint: left hip wound opened wound cuture colected by surgery patient getting manually disimpacted today - Current Medication List Current Medications: Active Medications Albuterol Sulfate (Ventolin 0.083% Nebulizer Soln -) 1 amp NEB Q4H PRN PRN Reason: SHORT OF BREATH/WHEEZING Heparin Sodium (Porcine) (Heparin -) 5,000 unit SQ TID [facility] Last Admin: 05/15/17 06:11 Dose: Not Given Potassium Chloride/Dextrose/Sod Cl (D5-1/2ns+20 Meq Kcl -) 20 meq in 1,000 mls @ 125 mls/hr IV ASDIR [facility] Last Admin: 05/14/17 21:43 Dose: Not Given Mineral Oil (Fleet Mineral Oil Rectal Enema -) 133 ml [place] DAILY [facility] Last Admin: 05/14/17 10:00 Dose: Not Given Senna (Senna -) 2 tab PO HS [facility] Last Admin: 05/14/17 21:43 Dose: Not Given Silver Sulfadiazine (Silvadene -) 1 applic TP DAILY [facility] - Objective Vital Signs: Vital Signs Temperature 98.0 F 05/14/17 22:00 Pulse Rate 72 05/14/17 22:00 Respiratory Rate 20 05/14/17 22:00 Blood Pressure 116/56 05/14/17 22:00 O2 Sat by Pulse Oximetry (%) 96 05/14/17 21:00 Constitutional: Yes: Calm Cardiovascular: Yes: Regular Rate and Rhythm, S1, S2 Respiratory: Yes: CTA Bilaterally Gastrointestinal: Yes: Soft, Distention (decreasing) Genitourinary: Yes: Eplaez Present Extremities: Yes: Other (left hip wound opened and culture sent) Wound/Incision: Yes: Other (sacral wounds seen) Neurological: Yes: Alert, Oriented, Pre-Existing Deficit Labs: CBC, BMP 05/14/17 07:30 05/14/17 07:30 INR, PTT INR 1.18 (0.82-1.09) H 05/12/17 12:30 Problem List - Problems (1) Fecal impaction Assessment/Plan: senna and enema manual disimpaction performed today Code(s): K56.41 - FECAL IMPACTION (2) Postprocedural retroperitoneal abscess Assessment/Plan: left hip wound opened and culture sent Code(s): K68.11 - POSTPROCEDURAL RETROPERITONEAL ABSCESS (3) Interstitial lung disease Assessment/Plan: seen by pulmonary bronchodilators Code(s): J84.9 - INTERSTITIAL PULMONARY DISEASE, UNSPECIFIED (4) Paraplegia following spinal cord injury Assessment/Plan: position and turn dvt ppx Code(s): G82.20 - PARAPLEGIA, UNSPECIFIED (5) Chronic indwelling Pelaez catheter Assessment/Plan: urology to see patient Code(s): Z92.89 - PERSONAL HISTORY OF OTHER MEDICAL TREATMENT (6) Sacral decubitus ulcer Assessment/Plan: wound care with silver sulfadine dr snider Code(s): L89.159 - PRESSURE ULCER OF SACRAL REGION, UNSPECIFIED STAGE Qualifiers: Pressure ulcer stage: unspecified pressure ulcer stage Qualified Code(s): L89.159 - Pressure ulcer of sacral region, unspecified stage
[2017-05-15] MEDS ORDERED: SENNOSIDES 8.6MG TABLET (FP) PO ONE (13:22)
[2017-05-15] MEDS ORDERED: PT OWN MED DRAWER 7, Y5N ONE (13:37)
[2017-05-15] MEDS: MINERAL OIL ENEMA 133 ML ENEMA PR SCH (14:41)
[2017-05-15] MEDS: D5-1/2NS+20 MEQ KCL - 20 MEQ/1,000 ML INFUS.BAG IV SCH (18:08)
[2017-05-15] MEDS: SENNOSIDES 8.6MG TABLET (FP) PO SCH (21:47)
[2017-05-16] MEDS: HEPARIN NA (PORCINE) 5,000 UNITS/ML 1ML VIAL SQ SCH ×3 (06:32→22:29)
[2017-05-16 07:54] LABS: BASO % 0.7 % (0-2.0); EOS % 3.7 % (0-4.5); LYMPH % 22.1 % (8-40); MCH 26.2 pg (25.7-33.7); MCHC 32.3 g/dl (32.0-35.9); MEAN CELL VOLUME 81.1 fl (80-96); MEAN PLT VOLUME 7.7 fl (7.5-11.1); MONO % 8.8 % (3.8-10.2); NEUT % 64.7 % (42.8-82.8); PLATELET COUNT 239 K/MM3 (134-434); RDW 15.3 % (11.9-15.9); WHITE BLOOD COUNT 5.7 K/mm3 (4.0-10.0)
[2017-05-16 08:31] LABS: ALBUMIN 2.2 g/dl (3.4-5.0); ALK PHOS 80 U/L (45-117); ANION GAP 8 (8-16); BILIRUBIN,TOTAL 0.2 mg/dL (0.2-1.0); BLOOD UREA NITROGEN 21 mg/dL (7-18); CALCIUM 7.7 mg/dL (8.5-10.1); CHLORIDE 106 mmol/L (98-107); CO2 25 mmol/L (21-32); CREATININE 0.7 mg/dL (0.7-1.3); GLUCOSE,RANDOM 75 mg/dL (74-106); POTASSIUM 4.5 mmol/L (3.5-5.1); SGOT/AST 21 U/L (15-37); SGPT/ALT 17 U/L (12-78); SODIUM 139 mmol/L (136-145); TOT PROT 6.7 g/dl (6.4-8.2)
[2017-05-16] MEDS: MINERAL OIL ENEMA 133 ML ENEMA PR SCH (10:50)
[2017-05-16] MEDS: SILVER SULFADIAZINE 1% TOP CREAM 50 GM JAR TP SCH (12:03)
--- NOTE | 2017-05-16 16:17 | PN ---
Progress Note, Physician Chief Complaint: Left hip abscess History of Present Illness: NAD seen by surgery to be seen by Urology - Current Medication List Current Medications: Active Medications Albuterol Sulfate (Ventolin 0.083% Nebulizer Soln -) 1 amp NEB Q4H PRN PRN Reason: SHORT OF BREATH/WHEEZING Heparin Sodium (Porcine) (Heparin -) 5,000 unit SQ TID [facility] Last Admin: 05/16/17 06:32 Dose: Not Given Potassium Chloride/Dextrose/Sod Cl (D5-1/2ns+20 Meq Kcl -) 20 meq in 1,000 mls @ 125 mls/hr IV ASDIR [facility] Last Admin: 05/15/17 18:08 Dose: Not Given Mineral Oil (Fleet Mineral Oil Rectal Enema -) 133 ml [place] DAILY [facility] Last Admin: 05/15/17 14:41 Dose: Not Given Senna (Senna -) 2 tab PO HS [facility] Last Admin: 05/15/17 21:47 Dose: 2 tab Silver Sulfadiazine (Silvadene -) 1 applic TP DAILY [facility] Last Admin: 05/16/17 12:03 Dose: 1 applic - Objective Vital Signs: Vital Signs Temperature 97.9 F 05/15/17 18:00 Pulse Rate 75 05/15/17 22:00 Respiratory Rate 20 05/15/17 22:00 Blood Pressure 106/68 05/15/17 22:00 O2 Sat by Pulse Oximetry (%) 96 05/15/17 21:00 Constitutional: Yes: Well Nourished, No Distress, Calm Cardiovascular: Yes: Regular Rate and Rhythm Respiratory: Yes: Regular Gastrointestinal: Yes: Normal Bowel Sounds, Soft Genitourinary: Yes: Pelaez Present Musculoskeletal: Yes: WNL Extremities: Yes: WNL Edema: No Neurological: Yes: Alert, Oriented Psychiatric: Yes: Alert, Oriented Labs: CBC, BMP 05/16/17 07:40 05/16/17 07:40 INR, PTT INR 1.18 (0.82-1.09) H 05/12/17 12:30 Problem List - Problems (1) Cellulitis and abscess of buttock Assessment/Plan: -Retroperitoneal abscess and gluteal abscess -seen by ID -Surgery Consult -Hold abx for now -monitor labs and vitals -wound culture pending Code(s): L02.31 - CUTANEOUS ABSCESS OF BUTTOCK; L03.317 - CELLULITIS OF BUTTOCK (2) MDRO (multiple drug resistant organisms) resistance Assessment/Plan: -Patient known to service and ID -await Wound culture for abx treatment Code(s): Z16.35 - RESISTANCE TO MULTIPLE ANTIMICROBIAL DRUGS (3) Paraplegia following spinal cord injury Assessment/Plan: Chronic Code(s): G82.20 - PARAPLEGIA, UNSPECIFIED (4) Fecal impaction Assessment/Plan: -manual disimpaction yesterday -refuses enema -Senna Code(s): K56.41 - FECAL IMPACTION (5) Interstitial lung disease Assessment/Plan: -seen by Pulmonary Code(s): J84.9 - INTERSTITIAL PULMONARY DISEASE, UNSPECIFIED (6) Sacral decubitus ulcer Assessment/Plan: -seen by Dr Kartik martinez Code(s): L89.159 - PRESSURE ULCER OF SACRAL REGION, UNSPECIFIED STAGE Qualifiers: Pressure ulcer stage: unspecified pressure ulcer stage Qualified Code(s): L89.159 - Pressure ulcer of sacral region, unspecified stage Assessment/Plan see problem list
--- NOTE | 2017-05-16 17:04 | PN ---
Progress Note, Physician Chief Complaint: L hip/flank redness, swelling History of Present Illness: Paraplegic pt with recurrent left retroperitoneal abscess of likely urologic origin, extending into posterolateral hip and gluteal tissues. Also with neurogenic bladder and bowel, with massive fecal impaction from upper abdomen down into rectal vault. Pt seen and examined in bed. L flank with small opening with serous drainage on dressing. Culture taken yesterday - GS with GPC and PMNs. Had senna yesterday, but no spontaneous stool. - Current Medication List Current Medications: Active Medications Albuterol Sulfate (Ventolin 0.083% Nebulizer Soln -) 1 amp NEB Q4H PRN PRN Reason: SHORT OF BREATH/WHEEZING Heparin Sodium (Porcine) (Heparin -) 5,000 unit SQ TID [facility] Last Admin: 05/16/17 06:32 Dose: Not Given Potassium Chloride/Dextrose/Sod Cl (D5-1/2ns+20 Meq Kcl -) 20 meq in 1,000 mls @ 125 mls/hr IV ASDIR [facility] Last Admin: 05/15/17 18:08 Dose: Not Given Mineral Oil (Fleet Mineral Oil Rectal Enema -) 133 ml CO DAILY [facility] Last Admin: 05/15/17 14:41 Dose: Not Given Senna (Senna -) 2 tab PO HS [facility] Last Admin: 05/15/17 21:47 Dose: 2 tab Silver Sulfadiazine (Silvadene -) 1 applic TP DAILY [facility] Last Admin: 05/16/17 12:03 Dose: 1 applic - Objective Vital Signs: Vital Signs Temperature 97.9 F 05/15/17 18:00 Pulse Rate 75 05/15/17 22:00 Respiratory Rate 20 05/15/17 22:00 Blood Pressure 106/68 05/15/17 22:00 O2 Sat by Pulse Oximetry (%) 96 05/15/17 21:00 Constitutional: Yes: No Distress, Calm, Thin Eyes: Yes: Conjunctiva Clear, EOM Intact HENT: Yes: Atraumatic, Normocephalic Gastrointestinal: Yes: Distention (firmly with known stool burden, soft at epigastric area). No: Tenderness (T6 paraplegic) ...Rectal Exam: Yes: Other (internal sphincter tone good, external opening moderate with sideways (to R) angulation of anal canal before entry into rectal vault around edge of bone; disimpacted of moderate to large amount of very soft brown stool with little reduction in palpable amount left in vault (coming down from above), no blood) Genitourinary: Yes: Pelaez Present. No: Hematuria Musculoskeletal: Yes: Back Pain (mostly at shoulder blades), Joint Stiffness ( hips/knees) Extremities: No: Cool, Cyanosis Integumentary: Yes: Pressure Ulcer (sacral with multiple areas, dressed), Other (small opening at left posterior flank where abscess opened up spontaneously - dressed with folded 4x4 gauze and tape - some serous drainage, no purulence noted) Wound/Incision: Yes: Dressing Dry and Intact, Dressing Removed (L flank dressing replaced; sacral dressing partially replaced with silvadene on ulcerated areas, gauze, ABD pad on upper portion and tape to hold), Draining (L flank - serous) Neurological: Yes: Alert, Oriented, Pre-Existing Deficit (T6 paraplegic) Labs: CBC, BMP 05/16/17 07:40 05/16/17 07:40 Microbiology 05/15/17 11:30 Gram Stain - Final Hip - Left 05/12/17 11:46 Blood Culture - Preliminary Blood - Peripheral Venous NO GROWTH OBTAINED AFTER 96 HOURS, INCUBATION TO CONTINUE FOR 1 DAYS. 05/12/17 11:46 Blood Culture - Preliminary Blood - Peripheral Venous NO GROWTH OBTAINED AFTER 96 HOURS, INCUBATION TO CONTINUE FOR 1 DAYS. Problem List - Problems (1) Postprocedural retroperitoneal abscess Assessment/Plan: Pt with recurrence of left retroperitoneal collection/abscess with extension into posterolateral hip and gluteal regions, previously discovered to be urologic in origin. IR consulted for repeat drain placement. Need to send fluid for creatinine as well as culture. Urology consultation to address Pelaez, stents, hydronephrosis - which may be contributing to internal pressure causing urine leakage from the kidney into the adjacent tissue planes. Massive fecal impaction also likely contributes to urinary retention and possibly kidney leakage. Manual disimpaction undertaken to lessen stool burden to facilitate possibility of retroperitoneal drain. Culture from spontaneous abscess drainage pending. Current drainage appears mostly serous, not purulent. Likely plan for reimaging Thursday to reassess collections and stool burden. Discussed with Edith Knight in person. Code(s): K68.11 - POSTPROCEDURAL RETROPERITONEAL ABSCESS (2) Fecal impaction of colon Assessment/Plan: Discussed yesterday with patient need for promotility agents/laxatives in bowel regimen, and routine enemas/continued daily disimpaction at home once massive stool burden is relieved, if it can be. Manual disimpaction performed for just over ONE HOUR with evacuation of copious very soft, brown stool. Still with massive stool burden palpable and firm abdominal distention from more proximal stool coming into reach in vault. Enemas unlikely to be of much use until vault is empty enough for liquid to reach more proximally and do more than interface with impacted surface. Will plan to continue daily disimpaction. Continue nightly senna for now. Code(s): K56.41 - FECAL IMPACTION (3) Acquired functional megacolon Code(s): K59.39 - OTHER MEGACOLON (4) Constipation due to neurogenic bowel Code(s): K59.00 - CONSTIPATION, UNSPECIFIED (5) Bilateral nephrolithiasis Code(s): N20.0 - CALCULUS OF KIDNEY (6) Neurogenic bladder Code(s): N31.9 - NEUROMUSCULAR DYSFUNCTION OF BLADDER, UNSPECIFIED (7) Chronic indwelling Pelaez catheter Code(s): Z92.89 - PERSONAL HISTORY OF OTHER MEDICAL TREATMENT (8) Sacral decubitus ulcer Code(s): L89.159 - PRESSURE ULCER OF SACRAL REGION, UNSPECIFIED STAGE Qualifiers: Pressure ulcer stage: unspecified pressure ulcer stage Qualified Code(s): L89.159 - Pressure ulcer of sacral region, unspecified stage (9) Paraplegia following spinal cord injury Code(s): G82.20 - PARAPLEGIA, UNSPECIFIED (10) COPD (chronic obstructive pulmonary disease) Code(s): J44.9 - CHRONIC OBSTRUCTIVE PULMONARY DISEASE, UNSPECIFIED Qualifiers: COPD type: unspecified COPD Qualified Code(s): J44.9 - Chronic obstructive pulmonary disease, unspecified
[2017-05-16] MEDS: D5-1/2NS+20 MEQ KCL - 20 MEQ/1,000 ML INFUS.BAG IV SCH (18:02)
[2017-05-16] MEDS: SENNOSIDES 8.6MG TABLET (FP) PO SCH (22:25)
[2017-05-17] MEDS: HEPARIN NA (PORCINE) 5,000 UNITS/ML 1ML VIAL SQ SCH ×3 (05:49→21:53)
[2017-05-17] MEDS: SILVER SULFADIAZINE 1% TOP CREAM 50 GM JAR TP SCH (11:00)
[2017-05-17] MEDS: MINERAL OIL ENEMA 133 ML ENEMA PR SCH (12:20)
--- NOTE | 2017-05-17 12:58 | PN ---
Progress Note, Physician Chief Complaint: Left hip abscess History of Present Illness: NAD seen by surgery to be seen by Urology - Current Medication List Current Medications: Active Medications Albuterol Sulfate (Ventolin 0.083% Nebulizer Soln -) 1 amp NEB Q4H PRN PRN Reason: SHORT OF BREATH/WHEEZING Heparin Sodium (Porcine) (Heparin -) 5,000 unit SQ TID [facility] Last Admin: 05/17/17 05:49 Dose: Not Given Potassium Chloride/Dextrose/Sod Cl (D5-1/2ns+20 Meq Kcl -) 20 meq in 1,000 mls @ 125 mls/hr IV ASDIR [facility] Last Admin: 05/16/17 18:02 Dose: Not Given Mineral Oil (Fleet Mineral Oil Rectal Enema -) 133 ml OR DAILY [facility] Last Admin: 05/17/17 12:20 Dose: Not Given Senna (Senna -) 2 tab PO HS [facility] Last Admin: 05/16/17 22:25 Dose: 2 tab Silver Sulfadiazine (Silvadene -) 1 applic TP DAILY [facility] Last Admin: 05/16/17 12:03 Dose: 1 applic - Objective Vital Signs: Vital Signs Temperature 98 F 05/17/17 12:54 Pulse Rate 72 05/17/17 12:54 Respiratory Rate 18 05/17/17 12:54 Blood Pressure 114/71 05/17/17 12:54 O2 Sat by Pulse Oximetry (%) 95 05/16/17 21:00 Constitutional: Yes: Well Nourished, No Distress, Calm Cardiovascular: Yes: Regular Rate and Rhythm Respiratory: Yes: Regular Gastrointestinal: Yes: Hypoactive Bowel Sounds Musculoskeletal: Yes: WNL Extremities: Yes: WNL Neurological: Yes: Alert, Oriented Psychiatric: Yes: Alert, Oriented Labs: CBC, BMP 05/16/17 07:40 05/16/17 07:40 INR, PTT INR 1.18 (0.82-1.09) H 05/12/17 12:30 Problem List - Problems (1) Cellulitis and abscess of buttock Assessment/Plan: -Retroperitoneal abscess and gluteal abscess -seen by ID -Surgery Consult -Hold abx for now -monitor labs and vitals -wound culture pending Code(s): L02.31 - CUTANEOUS ABSCESS OF BUTTOCK; L03.317 - CELLULITIS OF BUTTOCK (2) MDRO (multiple drug resistant organisms) resistance Assessment/Plan: -Patient known to service and ID -await final Wound culture: Microbiology 05/12/17 11:46 Blood Culture - Final Blood - Peripheral Venous NO GROWTH AFTER 5 DAYS INCUBATION 05/12/17 11:46 Blood Culture - Final Blood - Peripheral Venous NO GROWTH AFTER 5 DAYS INCUBATION 05/15/17 11:30 Gram Stain - Final Hip - Left Wound Culture - Preliminary Lactose Fermenting Neg Bacilli Staphylococcus Latex Coag Pos Code(s): Z16.35 - RESISTANCE TO MULTIPLE ANTIMICROBIAL DRUGS (3) Paraplegia following spinal cord injury Assessment/Plan: Chronic Code(s): G82.20 - PARAPLEGIA, UNSPECIFIED (4) Fecal impaction Assessment/Plan: -manual disimpaction yesterday -refuses enema -Senna Code(s): K56.41 - FECAL IMPACTION (5) Interstitial lung disease Assessment/Plan: -seen by Pulmonary Code(s): J84.9 - INTERSTITIAL PULMONARY DISEASE, UNSPECIFIED (6) Sacral decubitus ulcer Assessment/Plan: -seen by Dr Kartik martinez Code(s): L89.159 - PRESSURE ULCER OF SACRAL REGION, UNSPECIFIED STAGE Qualifiers: Pressure ulcer stage: unspecified pressure ulcer stage Qualified Code(s): L89.159 - Pressure ulcer of sacral region, unspecified stage Assessment/Plan see problem list
--- NOTE | 2017-05-17 14:28 | PN ---
Progress Note, Physician History of Present Illness: No c/o pain No fever/ chills WBC WNL Drainage from L flank sent for culture, growing mixed organisms - Current Medication List Current Medications: Active Medications Albuterol Sulfate (Ventolin 0.083% Nebulizer Soln -) 1 amp NEB Q4H PRN PRN Reason: SHORT OF BREATH/WHEEZING Heparin Sodium (Porcine) (Heparin -) 5,000 unit SQ TID [facility] Last Admin: 05/17/17 13:38 Dose: Not Given Potassium Chloride/Dextrose/Sod Cl (D5-1/2ns+20 Meq Kcl -) 20 meq in 1,000 mls @ 125 mls/hr IV ASDIR [facility] Last Admin: 05/16/17 18:02 Dose: Not Given Mineral Oil (Fleet Mineral Oil Rectal Enema -) 133 ml CO DAILY [facility] Last Admin: 05/17/17 12:20 Dose: Not Given Senna (Senna -) 2 tab PO HS [facility] Last Admin: 05/16/17 22:25 Dose: 2 tab Silver Sulfadiazine (Silvadene -) 1 applic TP DAILY [facility] Last Admin: 05/16/17 12:03 Dose: 1 applic - Objective Vital Signs: Vital Signs Temperature 98 F 05/17/17 12:54 Pulse Rate 72 05/17/17 12:54 Respiratory Rate 18 05/17/17 12:54 Blood Pressure 114/71 05/17/17 12:54 O2 Sat by Pulse Oximetry (%) 95 05/16/17 21:00 Constitutional: Yes: Cachectic Cardiovascular: Yes: Regular Rate and Rhythm, S1, S2 Respiratory: Yes: CTA Bilaterally Gastrointestinal: Yes: Normal Bowel Sounds, Soft Integumentary: Yes: Other (sacral , ischial wounds no purulent drainage) Labs: CBC, BMP 05/16/17 07:40 05/16/17 07:40 INR, PTT INR 1.18 (0.82-1.09) H 05/12/17 12:30 Assessment/Plan Intra-abdominal abscess Fecal impaction- improved Paraplegia Discussed with surgery- repeat imaging with view towards IR drainage once fecal impaction improved Pt not clinically septic Will continue to hold off antibiotics with hope to obtain definitive culture of collection
--- NOTE | 2017-05-17 15:12 | PN ---
Progress Note, Physician Chief Complaint: L hip/flank redness, swelling History of Present Illness: Paraplegic pt with recurrent left retroperitoneal abscess of likely urologic origin, extending into posterolateral hip and gluteal tissues. Also with neurogenic bladder and bowel, with massive fecal impaction from upper abdomen down into rectal vault. Pt seen and examined in bed. L flank with small opening with serous drainage on dressing. Hip/flank with no further redness, edema essentially resolved locally. Culture so far with latex pos Staph and GN bacilli , awaiting final. Being disimpacted manually on daily basis of very soft, sherice- like, muddy brown stool. Using senna nightly. - Current Medication List Current Medications: Active Medications Albuterol Sulfate (Ventolin 0.083% Nebulizer Soln -) 1 amp NEB Q4H PRN PRN Reason: SHORT OF BREATH/WHEEZING Heparin Sodium (Porcine) (Heparin -) 5,000 unit SQ TID [facility] Last Admin: 05/17/17 13:38 Dose: Not Given Potassium Chloride/Dextrose/Sod Cl (D5-1/2ns+20 Meq Kcl -) 20 meq in 1,000 mls @ 125 mls/hr IV ASDIR [facility] Last Admin: 05/16/17 18:02 Dose: Not Given Senna (Senna -) 2 tab PO HS [facility] Last Admin: 05/16/17 22:25 Dose: 2 tab Silver Sulfadiazine (Silvadene -) 1 applic TP DAILY [facility] Last Admin: 05/16/17 12:03 Dose: 1 applic - Objective Vital Signs: Vital Signs Temperature 98 F 05/17/17 12:54 Pulse Rate 72 05/17/17 12:54 Respiratory Rate 18 05/17/17 12:54 Blood Pressure 114/71 05/17/17 12:54 O2 Sat by Pulse Oximetry (%) 95 05/16/17 21:00 Constitutional: Yes: No Distress, Calm Eyes: Yes: Conjunctiva Clear, EOM Intact HENT: Yes: Atraumatic, Normocephalic Gastrointestinal: Yes: Distention (firmly with known stool burden, slightly less than few days ago). No: Tenderness (T6 paraplegic) ...Rectal Exam: Yes: Sphincter Tone Normal (internal, not external), Other ( moderate to copious very soft brown stool manually evacuated, with more still coming down from proximally to continue filling reachable vault) Genitourinary: Yes: Pelaez Present. No: Hematuria Musculoskeletal: Yes: Back Pain, Joint Stiffness (hips/knees) Extremities: Yes: External Rotation (hips). No: Cool, Cyanosis Integumentary: Yes: Pressure Ulcer (sacral with multiple areas), Other (L flank very small opening, with serous drainage) Wound/Incision: Yes: Dressing Removed (for disimpaction and to show Dr. Mckeon the flank wound), Draining (L flank with serous drainage only), Other (sacral wounds stable, redressed with silvadene, gauze and ABD as previously). No: Reddened Neurological: Yes: Alert, Oriented Labs: no new labs Problem List - Problems (1) Postprocedural retroperitoneal abscess Assessment/Plan: Pt with recurrence of left retroperitoneal collection/abscess with extension into posterolateral hip and gluteal regions, previously discovered to be urologic in origin. IR consulted for repeat drain placement. Need to send fluid for creatinine as well as culture. Urology consultation to address Pelaez, stents, hydronephrosis - which may be contributing to internal pressure causing urine leakage from the kidney into the adjacent tissue planes. Not yet seen. Massive fecal impaction also likely contributes to urinary retention and possibly kidney leakage. Manual disimpaction undertaken to lessen stool burden to facilitate possibility of retroperitoneal drain. Culture from spontaneous abscess drainage as noted; external erythema and swelling essentially resolved. Current drainage appears mostly serous, not purulent. Plan for reimaging tomorrow to reassess collections and stool burden with possible IR drain if retroperitoneal space still with collection. Code(s): K68.11 - POSTPROCEDURAL RETROPERITONEAL ABSCESS (2) Fecal impaction of colon Assessment/Plan: Discussed yesterday with patient need for promotility agents/laxatives in bowel regimen, and routine enemas/continued daily disimpaction at home once massive stool burden is relieved, if it can be. Routine use of Golytely or lactulose may also be useful to facilitate washing out colon on regular basis. Manual disimpaction performed for just under ONE HOUR with evacuation of moderate to copious very soft, pasty brown stool. Still with massive stool burden palpable and firm abdominal distention from more proximal stool coming into reach in vault. Enemas unlikely to be of much use until vault is empty enough for liquid to reach more proximally and do more than interface with impacted surface, but may be more useful soon. Will consider resuming soap suds enema pending tomorrow's imaging with continued daily disimpaction. Continue nightly senna for now. May also consider Golytely pending imaging to evaluate remaining stool burden. Code(s): K56.41 - FECAL IMPACTION (3) Acquired functional megacolon Code(s): K59.39 - OTHER MEGACOLON (4) Constipation due to neurogenic bowel Code(s): K59.00 - CONSTIPATION, UNSPECIFIED (5) Bilateral nephrolithiasis Code(s): N20.0 - CALCULUS OF KIDNEY (6) Neurogenic bladder Code(s): N31.9 - NEUROMUSCULAR DYSFUNCTION OF BLADDER, UNSPECIFIED (7) Chronic indwelling Pelaez catheter Code(s): Z92.89 - PERSONAL HISTORY OF OTHER MEDICAL TREATMENT (8) Sacral decubitus ulcer Code(s): L89.159 - PRESSURE ULCER OF SACRAL REGION, UNSPECIFIED STAGE Qualifiers: Pressure ulcer stage: unspecified pressure ulcer stage Qualified Code(s): L89.159 - Pressure ulcer of sacral region, unspecified stage (9) Paraplegia following spinal cord injury Code(s): G82.20 - PARAPLEGIA, UNSPECIFIED (10) COPD (chronic obstructive pulmonary disease) Code(s): J44.9 - CHRONIC OBSTRUCTIVE PULMONARY DISEASE, UNSPECIFIED Qualifiers: COPD type: unspecified COPD Qualified Code(s): J44.9 - Chronic obstructive pulmonary disease, unspecified
[2017-05-17] MEDS: D5-1/2NS+20 MEQ KCL - 20 MEQ/1,000 ML INFUS.BAG IV SCH (17:20)
[2017-05-17] MEDS: SENNOSIDES 8.6MG TABLET (FP) PO SCH (21:53)
[2017-05-18] MEDS: HEPARIN NA (PORCINE) 5,000 UNITS/ML 1ML VIAL SQ SCH ×3 (05:24→22:57)
--- NOTE | 2017-05-18 08:54 | PN ---
Progress Note, Physician - Current Medication List Current Medications: Active Medications Albuterol Sulfate (Ventolin 0.083% Nebulizer Soln -) 1 amp NEB Q4H PRN PRN Reason: SHORT OF BREATH/WHEEZING Heparin Sodium (Porcine) (Heparin -) 5,000 unit SQ TID [facility] Last Admin: 05/18/17 05:24 Dose: Not Given Potassium Chloride/Dextrose/Sod Cl (D5-1/2ns+20 Meq Kcl -) 20 meq in 1,000 mls @ 125 mls/hr IV ASDIR [facility] Last Admin: 05/17/17 17:20 Dose: Not Given Senna (Senna -) 2 tab PO HS [facility] Last Admin: 05/17/17 21:53 Dose: 2 tab Silver Sulfadiazine (Silvadene -) 1 applic TP DAILY [facility] Last Admin: 05/17/17 11:00 Dose: 1 applic - Objective Vital Signs: Vital Signs Temperature 97.7 F 05/18/17 06:00 Pulse Rate 65 05/18/17 06:00 Respiratory Rate 18 05/18/17 06:00 Blood Pressure 99/63 05/18/17 06:00 O2 Sat by Pulse Oximetry (%) 97 05/17/17 20:53 Cardiovascular: Yes: S1, S2 Respiratory: Yes: Regular, CTA Bilaterally Gastrointestinal: Yes: Normal Bowel Sounds, Soft Wound/Incision: Yes: Dressing Removed, Draining, Reddened Labs: CBC, BMP 05/16/17 07:40 05/16/17 07:40 INR, PTT INR 1.18 (0.82-1.09) H 05/12/17 12:30 Assessment/Plan - Problems (1) Cellulitis and abscess of buttock Assessment/Plan: -Retroperitoneal abscess and gluteal abscess -seen by ID -Surgery Consult -Hold abx for now -monitor labs and vitals -wound culture pending -IR Code(s): L02.31 - CUTANEOUS ABSCESS OF BUTTOCK; L03.317 - CELLULITIS OF BUTTOCK (2) MDRO (multiple drug resistant organisms) resistance Assessment/Plan: -Patient known to service and ID -await final Wound culture: Microbiology 05/12/17 11:46 Blood Culture - Final Blood - Peripheral Venous NO GROWTH AFTER 5 DAYS INCUBATION 05/12/17 11:46 Blood Culture - Final Blood - Peripheral Venous NO GROWTH AFTER 5 DAYS INCUBATION 05/15/17 11:30 Gram Stain - Final Hip - Left Wound Culture - Preliminary Lactose Fermenting Neg Bacilli Staphylococcus Latex Coag Pos Code(s): Z16.35 - RESISTANCE TO MULTIPLE ANTIMICROBIAL DRUGS (3) Paraplegia following spinal cord injury Assessment/Plan: Chronic Code(s): G82.20 - PARAPLEGIA, UNSPECIFIED (4) Fecal impaction Assessment/Plan: -manual disimpaction yesterday -refuses enema -Senna Code(s): K56.41 - FECAL IMPACTION (5) Interstitial lung disease Assessment/Plan: -seen by Pulmonary Code(s): J84.9 - INTERSTITIAL PULMONARY DISEASE, UNSPECIFIED (6) Sacral decubitus ulcer Assessment/Plan: -seen by Dr Kartik martinez Code(s): L89.159 - PRESSURE ULCER OF SACRAL REGION, UNSPECIFIED STAGE Qualifiers: Pressure ulcer stage: unspecified pressure ulcer stage Qualified Code(s): L89.159 - Pressure ulcer of sacral region, unspecified stage
[2017-05-18] MEDS: SILVER SULFADIAZINE 1% TOP CREAM 50 GM JAR TP SCH (10:00)
--- NOTE | 2017-05-18 11:41 | PN ---
Progress Note (short form) - Note Progress Note: ID Awaiting IR drainage Afebrile Selected Entries 05/18/17 09:57 Temperature 98 F Pulse Rate 71 Respiratory 18 Rate Blood Pressure 120/66 Microbiology 05/15/17 11:30 Hip - Left Gram Stain - Final 05/15/17 11:30 Hip - Left Wound Culture - Preliminary Lactose Fermenting Neg Bacilli Mr S Aureus Laboratory Tests 05/14/17 05/16/17 05/16/17 07:30 07:40 07:40 WBC 5.7 Hgb 11.0 L Hct 34.0 L Plt Count 239 ESR 70 H Creatinine 0.7 Assessment Retronperitoneal abscess kidney origin recurrent spontaneous drainage with c/s noted MRSA and a gram negative lactose fermenting Plan IR drainage and will start therapy with Vancomycin and Meropenem hoping not same panresistant organism he has had previously Sarah LUX Problem List - Problems (1) Paraplegia following spinal cord injury Code(s): G82.20 - PARAPLEGIA, UNSPECIFIED (2) Retroperitoneal fluid collection Code(s): R18.8 - OTHER ASCITES (3) MDRO (multiple drug resistant organisms) resistance Code(s): Z16.35 - RESISTANCE TO MULTIPLE ANTIMICROBIAL DRUGS (4) Multiple drug resistant organism (MDRO) culture positive Code(s): Z16.24 - RESISTANCE TO MULTIPLE ANTIBIOTICS
[2017-05-18] MEDS: MEROPENEM 1 GM PUSH 1 GM/20 ML DISP.SYRIN IVPUSH SCH ×2 (15:34→18:22)
[2017-05-18] MEDS: VANCOMYCIN 1,000 MG in DEXTROSE 5%-WATER - 250 ML IVPB SCH (15:34)
--- NOTE | 2017-05-18 16:25 | PN ---
Progress Note (short form) - Note Progress Note: Pt seen briefly in room in bed. Family - brother and mother present. Pt is sweating, but denies feeling feverish. Has been drinking coffee. Family brought bagel and cream cheese. AXR this morning shows massive stool burden remains. No CT yet to reevaluate retroperitoneum. Vital Signs Period Temp Pulse Resp BP Sys/Vu Pulse Ox Last 24 Hr 97.6 F-98.0 F 65-81 18-20 95-120/60-66 97-97 PE: A&O sweating, face and chest abdomen firmly distended, stable Pelaez in place, no hematuria Wounds not examined, rectal deferred at this time no new labs Microbiology 05/15/17 11:30 Gram Stain - Final Hip - Left Wound Culture - Preliminary Lactose Fermenting Neg Bacilli Mr S Aureus 05/12/17 11:46 Blood Culture - Final Blood - Peripheral Venous NO GROWTH AFTER 5 DAYS INCUBATION 05/12/17 11:46 Blood Culture - Final Blood - Peripheral Venous NO GROWTH AFTER 5 DAYS INCUBATION MRSA sensitive to Vanco, Dapto, Linezolid only A/P: stable with massive fecal impaction, atonic colon with horizontal anal angle, T6 paraplegia retroperitoneal abscess - unknown current status; previously extended into hip and gluteal tissues, but externally drained spontaneously with resolution of L hip/flank cellulitis, swelling and redness culture as above ID started on Vanco, Meropenem disimpacted x 1hr last 3 days in a row - no significant impact on overall stool burden by AXR consider Golytely, soap suds enemas if willing continue senna for now would repeat CT to reassess status of retroperitoneal collection and if drainage still needed internally urology has not yet seen patient - ? if stents need changing? left message for Dr. House Problem List - Problems (1) Postprocedural retroperitoneal abscess Code(s): K68.11 - POSTPROCEDURAL RETROPERITONEAL ABSCESS (2) Fecal impaction of colon Code(s): K56.41 - FECAL IMPACTION (3) Acquired functional megacolon Code(s): K59.39 - OTHER MEGACOLON (4) Constipation due to neurogenic bowel Code(s): K59.00 - CONSTIPATION, UNSPECIFIED (5) Bilateral nephrolithiasis Code(s): N20.0 - CALCULUS OF KIDNEY (6) Neurogenic bladder Code(s): N31.9 - NEUROMUSCULAR DYSFUNCTION OF BLADDER, UNSPECIFIED (7) Chronic indwelling Pelaez catheter Code(s): Z92.89 - PERSONAL HISTORY OF OTHER MEDICAL TREATMENT (8) Sacral decubitus ulcer Code(s): L89.159 - PRESSURE ULCER OF SACRAL REGION, UNSPECIFIED STAGE Qualifiers: Pressure ulcer stage: unspecified pressure ulcer stage Qualified Code(s): L89.159 - Pressure ulcer of sacral region, unspecified stage (9) Paraplegia following spinal cord injury Code(s): G82.20 - PARAPLEGIA, UNSPECIFIED (10) COPD (chronic obstructive pulmonary disease) Code(s): J44.9 - CHRONIC OBSTRUCTIVE PULMONARY DISEASE, UNSPECIFIED Qualifiers: COPD type: unspecified COPD Qualified Code(s): J44.9 - Chronic obstructive pulmonary disease, unspecified
[2017-05-18] MEDS: D5-1/2NS+20 MEQ KCL - 20 MEQ/1,000 ML INFUS.BAG IV SCH (18:22)
[2017-05-18] MEDS: SENNOSIDES 8.6MG TABLET (FP) PO SCH (22:56)
[2017-05-19] MEDS: VANCOMYCIN 1,000 MG in DEXTROSE 5%-WATER - 250 ML IVPB SCH ×3 (00:05→23:16)
[2017-05-19] MEDS: MEROPENEM 1 GM PUSH 1 GM/20 ML DISP.SYRIN IVPUSH SCH ×3 (02:25→19:14)
[2017-05-19] MEDS: HEPARIN NA (PORCINE) 5,000 UNITS/ML 1ML VIAL SQ SCH ×2 (06:38→17:20)
[2017-05-19] MEDS: SILVER SULFADIAZINE 1% TOP CREAM 50 GM JAR TP SCH (10:21)
[2017-05-19] MEDS ORDERED: PT OWN MED DRAWER 7, Y5N ONE (12:33)
--- NOTE | 2017-05-19 14:23 | PN ---
Progress Note, Physician Chief Complaint: patient seen and examined will get ct scan today as need to assess if retroperitoneal abscess needs drain - Current Medication List Current Medications: Active Medications Heparin Sodium (Porcine) (Heparin -) 5,000 unit SQ TID [facility] Last Admin: 05/19/17 06:38 Dose: Not Given Potassium Chloride/Dextrose/Sod Cl (D5-1/2ns+20 Meq Kcl -) 20 meq in 1,000 mls @ 125 mls/hr IV ASDIR [facility] Last Admin: 05/18/17 18:22 Dose: Not Given Vancomycin HCl 1,000 mg/ (Dextrose) 250 mls @ 250 mls/hr IVPB BID@0000,1200 [facility] PRN Reason: Protocol Last Admin: 05/19/17 12:35 Dose: Not Given Meropenem (Merrem (Restricted To Id) -) 1 gm in 20 mls @ 240 mls/hr IVPUSH Q8H- IV [facility] PRN Reason: Protocol Last Admin: 05/19/17 12:26 Dose: Not Given Senna (Senna -) 2 tab PO HS [facility] Last Admin: 05/18/17 22:56 Dose: 2 tab Silver Sulfadiazine (Silvadene -) 1 applic TP DAILY [facility] Last Admin: 05/18/17 10:00 Dose: 1 applic - Objective Vital Signs: Vital Signs Temperature 98 F 05/19/17 10:00 Pulse Rate 74 05/19/17 10:00 Respiratory Rate 19 05/19/17 10:00 Blood Pressure 119/72 05/19/17 10:00 O2 Sat by Pulse Oximetry (%) 97 05/19/17 09:00 Constitutional: Yes: Calm Cardiovascular: Yes: Regular Rate and Rhythm, Murmur, S1, S2 Respiratory: Yes: CTA Bilaterally Gastrointestinal: Yes: Normal Bowel Sounds, Soft Genitourinary: Yes: Pelaez Present Edema: No Neurological: Yes: Alert, Oriented, Pre-Existing Deficit Labs: CBC, BMP 05/16/17 07:40 05/16/17 07:40 INR, PTT INR 1.18 (0.82-1.09) H 05/12/17 12:30 Problem List - Problems (1) Hirschsprung disease of rectosigmoid region Assessment/Plan: laxatives Code(s): Q43.1 - HIRSCHSPRUNG'S DISEASE (2) Fecal impaction Assessment/Plan: senna and enema s/p disimpaction Code(s): K56.41 - FECAL IMPACTION (3) Postprocedural retroperitoneal abscess Assessment/Plan: left hip wound opened and culture sent Microbiology 05/15/17 11:30 Hip - Left Gram Stain - Final 05/15/17 11:30 Hip - Left Wound Culture - Final Acinetobacter Baumannii/Haemol Mr S Aureus iv vancomycin Code(s): K68.11 - POSTPROCEDURAL RETROPERITONEAL ABSCESS (4) Interstitial lung disease Assessment/Plan: seen by pulmonary bronchodilators Code(s): J84.9 - INTERSTITIAL PULMONARY DISEASE, UNSPECIFIED (5) Paraplegia following spinal cord injury Assessment/Plan: position and turn dvt ppx Code(s): G82.20 - PARAPLEGIA, UNSPECIFIED (6) Chronic indwelling Pelaez catheter Assessment/Plan: urology to see patient Code(s): Z92.89 - PERSONAL HISTORY OF OTHER MEDICAL TREATMENT (7) Sacral decubitus ulcer Assessment/Plan: wound care with silver sulfadine dr snider Code(s): L89.159 - PRESSURE ULCER OF SACRAL REGION, UNSPECIFIED STAGE Qualifiers: Pressure ulcer stage: unspecified pressure ulcer stage Qualified Code(s): L89.159 - Pressure ulcer of sacral region, unspecified stage (8) Retained ureteral stent Assessment/Plan: urology to see patient to asses the need to replacement of the stents Code(s): Z96.0 - PRESENCE OF UROGENITAL IMPLANTS
--- NOTE | 2017-05-19 16:48 | PN ---
Progress Note, Physician History of Present Illness: Awake, alert No c/o pain No fever/ chills Remains afebrile WBC WNL Drainage from L flank sent for culture, growing MRSA, (R) acinetobacter Refusing antibiotics, IV - Current Medication List Current Medications: Active Medications Heparin Sodium (Porcine) (Heparin -) 5,000 unit SQ TID [facility] Last Admin: 05/19/17 06:38 Dose: Not Given Potassium Chloride/Dextrose/Sod Cl (D5-1/2ns+20 Meq Kcl -) 20 meq in 1,000 mls @ 125 mls/hr IV ASDIR [facility] Last Admin: 05/18/17 18:22 Dose: Not Given Vancomycin HCl 1,000 mg/ (Dextrose) 250 mls @ 250 mls/hr IVPB BID@0000,1200 [facility] PRN Reason: Protocol Last Admin: 05/19/17 12:35 Dose: Not Given Meropenem (Merrem (Restricted To Id) -) 1 gm in 20 mls @ 240 mls/hr IVPUSH Q8H- IV [facility] PRN Reason: Protocol Last Admin: 05/19/17 12:26 Dose: Not Given Senna (Senna -) 2 tab PO HS [facility] Last Admin: 05/18/17 22:56 Dose: 2 tab Silver Sulfadiazine (Silvadene -) 1 applic TP DAILY [facility] Last Admin: 05/18/17 10:00 Dose: 1 applic - Objective Vital Signs: Vital Signs Temperature 98 F 05/19/17 14:59 Pulse Rate 84 05/19/17 14:59 Respiratory Rate 18 05/19/17 14:59 Blood Pressure 119/69 05/19/17 14:59 O2 Sat by Pulse Oximetry (%) 97 05/19/17 09:00 Constitutional: Yes: No Distress Eyes: Yes: Conjunctiva Clear Cardiovascular: Yes: Regular Rate and Rhythm, S1, S2 Respiratory: Yes: CTA Bilaterally Gastrointestinal: Yes: Normal Bowel Sounds, Soft, Other (distended. No flank drainage. + scant drainage on dressing). No: Tenderness Edema: No Labs: CBC, BMP 05/16/17 07:40 05/16/17 07:40 INR, PTT INR 1.18 (0.82-1.09) H 05/12/17 12:30 Assessment/Plan Intra-abdominal abscess Fecal impaction Paraplegia Discussed with surgery- repeat imaging with view towards IR drainage once fecal impaction improved Pt not clinically septic Refusing antibiotics and IV
[2017-05-19] MEDS: D5-1/2NS+20 MEQ KCL - 20 MEQ/1,000 ML INFUS.BAG IV SCH (19:13)
[2017-05-19] MEDS: SENNOSIDES 8.6MG TABLET (FP) PO SCH (23:15)
[2017-05-20] MEDS: MEROPENEM 1 GM PUSH 1 GM/20 ML DISP.SYRIN IVPUSH SCH ×3 (01:22→18:49)
[2017-05-20] MEDS ORDERED: INSULIN (NOVOLOG) ASPART 100 UNITS/ML 10ML VIAL ONE (06:34)
--- NOTE | 2017-05-20 09:05 | PN ---
Progress Note, Physician Chief Complaint: AWAKE ALERT IN [employer] DENIES FEVER OR PAIN - Current Medication List Current Medications: Active Medications Potassium Chloride/Dextrose/Sod Cl (D5-1/2ns+20 Meq Kcl -) 20 meq in 1,000 mls @ 125 mls/hr IV ASDIR [facility] Last Admin: 05/19/17 19:13 Dose: Not Given Vancomycin HCl 1,000 mg/ (Dextrose) 250 mls @ 250 mls/hr IVPB BID@0000,1200 [facility] PRN Reason: Protocol Last Admin: 05/19/17 23:16 Dose: 250 mls/hr Meropenem (Merrem (Restricted To Id) -) 1 gm in 20 mls @ 240 mls/hr IVPUSH Q8H- IV [facility] PRN Reason: Protocol Last Admin: 05/20/17 01:22 Dose: 240 mls/hr Senna (Senna -) 2 tab PO HS [facility] Last Admin: 05/19/17 23:15 Dose: 2 tab Silver Sulfadiazine (Silvadene -) [address] [facility] Last Admin: 05/19/17 10:21 Dose: 1 applic - Objective Vital Signs: Vital Signs Temperature 98.8 F 05/19/17 22:00 Pulse Rate 72 05/19/17 22:00 Respiratory Rate 18 05/19/17 22:00 Blood Pressure 128/62 05/19/17 22:00 O2 Sat by Pulse Oximetry (%) 97 05/19/17 21:00 Constitutional: Yes: No Distress Eyes: Yes: WNL HENT: Yes: WNL Neck: Yes: WNL Cardiovascular: Yes: WNL Respiratory: Yes: WNL Gastrointestinal: Yes: WNL Genitourinary: Yes: Other Musculoskeletal: Yes: Muscle Weakness Extremities: Yes: WNL Edema: No Peripheral Pulses WNL: Yes Integumentary: Yes: Other Wound/Incision: Yes: Dressing Dry and Intact Neurological: Yes: Loss of Sensation (LEGGS), Paresthesia, Pre-Existing Deficit ...Motor Strength: LLE, RLE Psychiatric: Yes: Other Labs: CBC, BMP 05/16/17 07:40 05/16/17 07:40 INR, PTT INR 1.18 (0.82-1.09) H 05/12/17 12:30 Problem List - Problems (1) Paraplegia following spinal cord injury Code(s): G82.20 - PARAPLEGIA, UNSPECIFIED (2) Retroperitoneal abscess Code(s): K68.19 - OTHER RETROPERITONEAL ABSCESS (3) Bacteremia Code(s): R78.81 - BACTEREMIA Assessment/Plan IV ABX FOR NOW WILL NEED IR TO DRAIN ABSCESS D/W NURSE TO F/U WITH DR HAYDEN
[2017-05-20] MEDS ORDERED: PT OWN MED DRAWER 7, Y5N ONE (10:43)
[2017-05-20] MEDS: SILVER SULFADIAZINE 1% TOP CREAM 50 GM JAR TP SCH (12:12)
--- NOTE | 2017-05-20 12:30 | PN ---
Progress Note (short form) - Note Progress Note: PULMONARY STABLE FROM PULONARY STANDPOINT OFFERS NO COMPLAINTS CHART REVIEWED IMP COPD/ILD SEPSIS LEFT RETROPERITONEAL/GLUTEAL ABSCESS H/O RECURRENT UTI'S ABDOMINAL DISTENTION/MEGACOLON PLAN O2 INHALED BRONCHODILATORS IVF ABX PER ID NO NEED FOR NIPPV AT THIS TIME PLEASE CALL LAUREN RIOJAS MD
[2017-05-20] MEDS: VANCOMYCIN 1,000 MG in DEXTROSE 5%-WATER - 250 ML IVPB SCH (12:56)
[2017-05-20] MEDS: D5-1/2NS+20 MEQ KCL - 20 MEQ/1,000 ML INFUS.BAG IV SCH (18:49)
[2017-05-20] MEDS: SENNOSIDES 8.6MG TABLET (FP) PO SCH (22:02)
[2017-05-21] MEDS: VANCOMYCIN 1,000 MG in DEXTROSE 5%-WATER - 250 ML IVPB SCH ×3 (00:10→23:40)
[2017-05-21] MEDS: MEROPENEM 1 GM PUSH 1 GM/20 ML DISP.SYRIN IVPUSH SCH ×3 (01:11→18:44)
[2017-05-21 07:24] LABS: HEMATOCRIT 35.4 % (35.4-49); HEMOGLOBIN 11.5 GM/dL (11.7-16.9); MCH 26.5 pg (25.7-33.7); MCHC 32.3 g/dl (32.0-35.9); MEAN PLT VOLUME 7.9 fl (7.5-11.1); PLATELET COUNT 234 K/MM3 (134-434); RBC 4.32 M/mm3 (4.00-5.60); RDW 15.7 % (11.9-15.9); WHITE BLOOD COUNT 5.9 K/mm3 (4.0-10.0)
[2017-05-21 07:50] LABS: INR 1.1 (0.82-1.09); PROTHROMBIN TIME (PATIENT) 12.4 SEC (9.98-11.88)
[2017-05-21 07:54] LABS: ANION GAP 11 (8-16); BLOOD UREA NITROGEN 22 mg/dL (7-18); CALCIUM 8.4 mg/dL (8.5-10.1); CHLORIDE 102 mmol/L (98-107); CO2 25 mmol/L (21-32); CREATININE 0.6 mg/dL (0.7-1.3); GLUCOSE,RANDOM 87 mg/dL (74-106); MAGNESIUM 2.4 mg/dL (1.8-2.4); PHOSPHOROUS 3.5 mg/dL (2.5-4.9); POTASSIUM 4.6 mmol/L (3.5-5.1); SODIUM 138 mmol/L (136-145)
[2017-05-21] MEDS ORDERED: PT OWN MED DRAWER 7, Y5N ONE (10:20)
[2017-05-21] MEDS: D5-1/2NS+20 MEQ KCL - 20 MEQ/1,000 ML INFUS.BAG IV SCH ×2 (11:01→22:04)
--- NOTE | 2017-05-21 11:09 | PN ---
Progress Note, Physician Chief Complaint: spoke to patient he is willling to get the ct scan done today on iv abx spoke to dr vickers he will see patient today and change the hull and will shcedule the change of double j ureteral stents tommorow - Current Medication List Current Medications: Active Medications Potassium Chloride/Dextrose/Sod Cl (D5-1/2ns+20 Meq Kcl -) 20 meq in 1,000 mls @ 125 mls/hr IV ASDIR [facility] Last Admin: 05/20/17 18:49 Dose: 125 mls/hr Vancomycin HCl 1,000 mg/ (Dextrose) 250 mls @ 250 mls/hr IVPB BID@0000,1200 [facility] PRN Reason: Protocol Last Admin: 05/21/17 00:10 Dose: 250 mls/hr Meropenem (Merrem (Restricted To Id) -) 1 gm in 20 mls @ 240 mls/hr IVPUSH Q8H- IV [facility] PRN Reason: Protocol Last Admin: 05/21/17 01:11 Dose: 240 mls/hr Senna (Senna -) 2 tab PO HS [facility] Last Admin: 05/20/17 22:02 Dose: 2 tab Silver Sulfadiazine (Silvadene -) 1 applic TP DAILY [facility] Last Admin: 05/20/17 12:12 Dose: 1 applic - Objective Vital Signs: Vital Signs Temperature 98.7 F 05/20/17 22:00 Pulse Rate 65 05/20/17 22:00 Respiratory Rate 20 05/20/17 22:00 Blood Pressure 121/74 05/20/17 22:00 O2 Sat by Pulse Oximetry (%) 97 05/20/17 21:00 Constitutional: Yes: Calm Neck: Yes: Trachea Midline Cardiovascular: Yes: Regular Rate and Rhythm, Murmur, S1, S2 Respiratory: Yes: CTA Bilaterally Gastrointestinal: Yes: Normal Bowel Sounds, Soft Genitourinary: Yes: Hull Present Wound/Incision: Yes: Other (left hip wound open and draining erythema) Neurological: Yes: Alert, Oriented, Pre-Existing Deficit Labs: CBC, BMP 05/21/17 06:55 05/21/17 06:55 INR, PTT INR 1.10 (0.82-1.09) 05/21/17 06:55 Problem List - Problems (1) Chronic indwelling Hull catheter Assessment/Plan: spoke to dr vickers today he will come and change the hull catheter and chris schedule patient tommorow for ureteral J stents change as its been about 6 month since it was changed Code(s): Z92.89 - PERSONAL HISTORY OF OTHER MEDICAL TREATMENT (2) Postprocedural retroperitoneal abscess Assessment/Plan: left hip wound opened and culture sent Microbiology 05/15/17 11:30 Hip - Left Gram Stain - Final 05/15/17 11:30 Hip - Left Wound Culture - Final Acinetobacter Baumannii/Haemol Mr S Aureus iv vancomycin- patient is on iv abx now Ct scan to be done today to see if IR needs to drain the abscess patient has agreed to getting ct scan done Code(s): K68.11 - POSTPROCEDURAL RETROPERITONEAL ABSCESS (3) Hirschsprung disease of rectosigmoid region Assessment/Plan: laxatives Code(s): Q43.1 - HIRSCHSPRUNG'S DISEASE (4) Fecal impaction Assessment/Plan: senna and enema s/p disimpaction by surgery Code(s): K56.41 - FECAL IMPACTION (5) Interstitial lung disease Assessment/Plan: seen by pulmonary bronchodilators Code(s): J84.9 - INTERSTITIAL PULMONARY DISEASE, UNSPECIFIED (6) Paraplegia following spinal cord injury Assessment/Plan: position and turn dvt ppx Code(s): G82.20 - PARAPLEGIA, UNSPECIFIED (7) Sacral decubitus ulcer Assessment/Plan: wound care with silver sulfadine dr snider Code(s): L89.159 - PRESSURE ULCER OF SACRAL REGION, UNSPECIFIED STAGE Qualifiers: Pressure ulcer stage: unspecified pressure ulcer stage Qualified Code(s): L89.159 - Pressure ulcer of sacral region, unspecified stage (8) Retained ureteral stent Assessment/Plan: urology to see patient to asses the need to replacement of the stents- to get then change possibly tmw Code(s): Z96.0 - PRESENCE OF UROGENITAL IMPLANTS
[2017-05-21] MEDS: SILVER SULFADIAZINE 1% TOP CREAM 50 GM JAR TP SCH (12:34)
--- NOTE | 2017-05-21 15:45 | PN ---
Progress Note, Physician History of Present Illness: Awake, alert No c/o pain No fever/ chills Remains afebrile WBC WNL IV access problematic. Needs access for IV contrast for CT - Current Medication List Current Medications: Active Medications Potassium Chloride/Dextrose/Sod Cl (D5-1/2ns+20 Meq Kcl -) 20 meq in 1,000 mls @ 125 mls/hr IV ASDIR [facility] Last Admin: 05/21/17 11:01 Dose: 125 mls/hr Vancomycin HCl 1,000 mg/ (Dextrose) 250 mls @ 250 mls/hr IVPB BID@0000,1200 [facility] PRN Reason: Protocol Last Admin: 05/21/17 12:34 Dose: 250 mls/hr Meropenem (Merrem (Restricted To Id) -) 1 gm in 20 mls @ 240 mls/hr IVPUSH Q8H- IV [facility] PRN Reason: Protocol Last Admin: 05/21/17 12:33 Dose: 240 mls/hr Senna (Senna -) 2 tab PO HS [facility] Last Admin: 05/20/17 22:02 Dose: 2 tab Silver Sulfadiazine (Silvadene -) 1 applic TP DAILY [facility] Last Admin: 05/21/17 12:34 Dose: 1 applic - Objective Vital Signs: Vital Signs Temperature 98.5 F 05/21/17 14:26 Pulse Rate 66 05/21/17 14:26 Respiratory Rate 19 05/21/17 14:26 Blood Pressure 113/74 05/21/17 14:26 O2 Sat by Pulse Oximetry (%) 97 05/20/17 21:00 Constitutional: Yes: No Distress, Cachectic Cardiovascular: Yes: Regular Rate and Rhythm, S1, S2 Respiratory: Yes: Diminished Gastrointestinal: Yes: Normal Bowel Sounds, Soft, Other (distended). No: Tenderness Edema: No Labs: CBC, BMP 05/21/17 06:55 05/21/17 06:55 INR, PTT INR 1.10 (0.82-1.09) 05/21/17 06:55 Assessment/Plan Intra-abdominal abscess + wound c/s MRSA, MDR acinetobacter Fecal impaction Paraplegia For CT abdo/pelvis with view towards IR drainage Continue vancomycin/ meropenem for now
[2017-05-21] MEDS: SENNOSIDES 8.6MG TABLET (FP) PO SCH (22:04)
[2017-05-22] MEDS: MEROPENEM 1 GM PUSH 1 GM/20 ML DISP.SYRIN IVPUSH SCH ×3 (02:28→18:36)
[2017-05-22] MEDS: D5-1/2NS+20 MEQ KCL - 20 MEQ/1,000 ML INFUS.BAG IV SCH ×3 (02:28→21:15)
[2017-05-22] MEDS ORDERED: PT OWN MED DRAWER 7, Y5N ONE ×5 (09:08→23:08)
--- NOTE | 2017-05-22 09:28 | PN ---
Progress Note, Physician - Current Medication List Current Medications: Active Medications Potassium Chloride/Dextrose/Sod Cl (D5-1/2ns+20 Meq Kcl -) 20 meq in 1,000 mls @ 125 mls/hr IV [facility]IR [facility] Last Admin: 05/22/17 02:28 Dose: 125 mls/hr Vancomycin HCl 1,000 mg/ (Dextrose) 250 mls @ 250 mls/hr IVPB BID@0000,1200 [facility] PRN Reason: Protocol Last Admin: 05/21/17 23:40 Dose: 250 mls/hr Meropenem (Merrem (Restricted To Id) -) 1 gm in 20 mls @ 240 mls/hr IVPUSH Q8H- IV [facility] PRN Reason: Protocol Last Admin: 05/22/17 02:28 Dose: 240 mls/hr Polyethylene Glycol (Miralax (For Daily Use) -) 17 gm PO BID [facility] Senna (Senna -) 2 tab PO HS [facility] Last Admin: 05/21/17 22:04 Dose: 2 tab Silver Sulfadiazine (Silvadene -) 1 applic TP DAILY [facility] Last Admin: 05/21/17 12:34 Dose: 1 applic - Objective Vital Signs: Vital Signs Temperature 98.1 F 05/21/17 22:00 Pulse Rate 63 05/21/17 22:00 Respiratory Rate 18 05/21/17 22:00 Blood Pressure 134/80 05/21/17 22:00 O2 Sat by Pulse Oximetry (%) 98 05/21/17 21:00 Labs: CBC, BMP 05/21/17 06:55 05/21/17 06:55 INR, PTT INR 1.10 (0.82-1.09) 05/21/17 06:55 Assessment/Plan - Problems (1) Chronic indwelling Hull catheter Assessment/Plan: spoke to dr vickers today he will come and change the hull catheter and chris schedule patient tommorow for ureteral J stents change as its been about 6 month since it was changed Code(s): Z92.89 - PERSONAL HISTORY OF OTHER MEDICAL TREATMENT (2) Postprocedural retroperitoneal abscess Assessment/Plan: left hip wound opened and culture sent Microbiology 05/15/17 11:30 Hip - Left Gram Stain - Final 05/15/17 11:30 Hip - Left Wound Culture - Final Acinetobacter Baumannii/Haemol Mr S Aureus iv vancomycin- patient is on iv abx now Ct scan to be done today to see if IR needs to drain the abscess patient has agreed to getting ct scan done Code(s): K68.11 - POSTPROCEDURAL RETROPERITONEAL ABSCESS (3) Hirschsprung disease of rectosigmoid region Assessment/Plan: laxatives Code(s): Q43.1 - HIRSCHSPRUNG'S DISEASE (4) Fecal impaction Assessment/Plan: senna and enema s/p disimpaction by surgery ADD MIRALAX AND ENEMA Code(s): K56.41 - FECAL IMPACTION (5) Interstitial lung disease Assessment/Plan: seen by pulmonary bronchodilators Code(s): J84.9 - INTERSTITIAL PULMONARY DISEASE, UNSPECIFIED (6) Paraplegia following spinal cord injury Assessment/Plan: position and turn dvt ppx Code(s): G82.20 - PARAPLEGIA, UNSPECIFIED (7) Sacral decubitus ulcer Assessment/Plan: wound care with silver sulfadine dr snider Code(s): L89.159 - PRESSURE ULCER OF SACRAL REGION, UNSPECIFIED STAGE Qualifiers: Pressure ulcer stage: unspecified pressure ulcer stage Qualified Code(s): L89.159 - Pressure ulcer of sacral region, unspecified stage (8) Retained ureteral stent Assessment/Plan: urology to see patient to asses the need to replacement of the stents- to get then change possibly tmw Code(s): Z96.0 - PRESENCE OF UROGENITAL IMPLANTS
[2017-05-22] MEDS: POLYETHYLENE GLYCOL 3350 119 GM BTL PO SCH ×2 (09:29→21:16)
[2017-05-22] MEDS: SILVER SULFADIAZINE 1% TOP CREAM 50 GM JAR TP SCH (10:30)
--- NOTE | 2017-05-22 14:16 | CON.GI ---
Consult Consult Specialty:: GI Reason for Consultation:: Constipation - History of Present Illness Chief Complaint: Constipation History of Present Illness: 52 yr old with PMH of Hirchsprung and T6 paraplegia was called to be seen for constipation secondary to fecal impaction. He denies nausea, vomiting, diarrhea and abdominal pain. - History Source History Provided By: Patient, Medical Record - Past Medical History Pulmonary: Yes: COPD Gastrointestinal: Yes: Constipation (Neurogenic bowel with persistent obstipation and megasigmoid), GI Bleed Hepatobiliary: Yes: Cholelithiasis Renal/: Yes: Neurogenic Bladder (indwelling Pelaez), Renal Calculi (bilateral staghorn with h/o obstructions and other calculi), UTI, Other (JJ bilat stents, permanent Pelaez; partially duplicated left renal collecting system) Infectious Disease: Yes: MRSA, Other (resistant organisms, pseudomonas and esbl gram negatives, history polymicrobial bacteremia) Musculoskeletal: Yes: Paraplegia (T6 level) - Past Surgical History Past Surgical History: Yes: Stent (bilateral ureteral stents - multiple exchanges) Additional Surgical History: bilateral percutaneous nephrostomies, last left ; h/o feeding tube placement and removal; multiple cystoscopies with ureteroscopies and stentings - last bilat 11/30; IR drain in L flank 12/30 for urologic collection/abscess - Alcohol/Substance Use Hx Alcohol Use: No History of Substance Use: reports: None (for at least a year) - Smoking History Smoking history: Current every day smoker Have you smoked in the past 12 months: Yes Aproximately how many cigarettes per day: 15 If you are a former smoker, when did you quit?: 03/2014 - Social History Usual Living Arrangement: With Parent ADL: Support Services (his mother lives in the same house also has home health aides) History of Recent Travel: No Home Medications - Allergies Allergies/Adverse Reactions: Allergies Allergy/AdvReac Type Severity Reaction Status Date / Time polymyxin B Allergy Mild Itching Verified 05/12/17 11:18 - Home Medications Home Medications: Ambulatory Orders NK [No Known Home Medication] 05/12/17 Family Disease History - Family Disease History Family Disease History: Diabetes: Mother, Heart Disease: Father Review of Systems - Review of Systems Constitutional: reports: No Symptoms Physical Exam-GI Vital Signs: Vital Signs Temperature 97.7 F 05/22/17 13:09 Pulse Rate 70 05/22/17 13:09 Respiratory Rate 18 05/22/17 13:09 Blood Pressure 112/67 05/22/17 13:09 O2 Sat by Pulse Oximetry (%) 98 05/21/17 21:00 Constitutional: Yes: No Distress, Calm Eyes: Yes: Conjunctiva Clear HENT: Yes: Atraumatic Cardiovascular: Yes: Regular Rate and Rhythm Respiratory: Yes: Regular, CTA Bilaterally ...Auscultate: Yes: Normoactive Bowel Sounds Musculoskeletal: Yes: Muscle Weakness (paraplegia) Labs: CBC, BMP 05/21/17 06:55 05/21/17 06:55 INR, PTT INR 1.10 (0.82-1.09) 05/21/17 06:55 Problem List - Problems (1) Constipation Assessment/Plan: Recommendation: 1. Give1 bottle magnesium citrate today and tomorrow Code(s): K59.00 - CONSTIPATION, UNSPECIFIED
[2017-05-22] MEDS ORDERED: MAGNESIUM CITRATE 300 ML BOTTLE PO ONE (14:32)
[2017-05-22] MEDS: VANCOMYCIN 1,000 MG in DEXTROSE 5%-WATER - 250 ML IVPB SCH ×2 (15:16→23:21)
--- NOTE | 2017-05-22 19:41 | PN ---
Progress Note, Physician History of Present Illness: Awake, alert. Non toxic appearing No c/o pain No fever/ chills Remains afebrile WBC WNL CT findings noted - Current Medication List Current Medications: Active Medications Potassium Chloride/Dextrose/Sod Cl (D5-1/2ns+20 Meq Kcl -) 20 meq in 1,000 mls @ 125 mls/hr IV ASDIR REPLACED BY [facility] Last Admin: 05/22/17 09:28 Dose: 125 mls/hr Vancomycin HCl 1,000 mg/ (Dextrose) 250 mls @ 250 mls/hr IVPB BID@0000,1200 [facility]PLAC[facility] PRN Reason: Protocol Last Admin: 05/22/17 15:16 Dose: 250 mls/hr Meropenem (Merrem (Restricted To Id) -) 1 gm in 20 mls @ 240 mls/hr IVPUSH Q8H- IV [facility] PRN Reason: Protocol Last Admin: 05/22/17 18:36 Dose: 240 mls/hr Magnesium Citrate (Citroma -) 300 ml PO ONCE ONE Stop: 05/23/17 10:01 Polyethylene Glycol (Miralax (For Daily Use) -) 17 gm PO BID REPLACED [facility] Last Admin: 05/22/17 09:29 Dose: 17 grams Senna (Senna -) 2 tab PO HS [facility]PL[facility] BY [facility] Last Admin: 05/21/17 22:04 Dose: 2 tab Silver Sulfadiazine (Silvadene -) 1 applic TP DAILY [facility] Last Admin: 05/22/17 10:30 Dose: 1 applic - Objective Vital Signs: Vital Signs Temperature 97.7 F 05/22/17 18:46 Pulse Rate 69 05/22/17 18:46 Respiratory Rate 18 05/22/17 18:46 Blood Pressure 132/74 05/22/17 18:46 O2 Sat by Pulse Oximetry (%) 98 05/22/17 09:25 Constitutional: Yes: No Distress, Cachectic Eyes: Yes: Conjunctiva Clear Cardiovascular: Yes: Regular Rate and Rhythm, S1, S2 Respiratory: Yes: Diminished Gastrointestinal: Yes: Soft, Other (abdomen distended) Edema: No Labs: CBC, BMP 05/21/17 06:55 05/21/17 06:55 INR, PTT INR 1.10 (0.82-1.09) 05/21/17 06:55 Assessment/Plan Intra-abdominal abscess + wound c/s MRSA, MDR acinetobacter Fecal impaction Paraplegia CT findings reviewed. ? IR drainage of collection Case discussed with outside [facility] consultant, specifically MDR acinetobacter Will continue vancomycin D/C meropenem Substitute zithromax/ minocycline
[2017-05-22] MEDS: SENNOSIDES 8.6MG TABLET (FP) PO SCH (21:16)
[2017-05-23] MEDS: MEROPENEM 1 GM PUSH 1 GM/20 ML DISP.SYRIN IVPUSH SCH ×3 (01:51→19:10)
[2017-05-23] MEDS: D5-1/2NS+20 MEQ KCL - 20 MEQ/1,000 ML INFUS.BAG IV SCH ×2 (09:00→19:11)
[2017-05-23] MEDS ORDERED: MAGNESIUM CITRATE 300 ML BOTTLE PO ONE (10:00)
[2017-05-23] MEDS ORDERED: PT OWN MED DRAWER 7, Y5N ONE (11:55)
[2017-05-23] MEDS: POLYETHYLENE GLYCOL 3350 119 GM BTL PO SCH ×2 (11:59→22:34)
[2017-05-23] MEDS: VANCOMYCIN 1,000 MG in DEXTROSE 5%-WATER - 250 ML IVPB SCH ×2 (11:59→23:00)
[2017-05-23] MEDS: SILVER SULFADIAZINE 1% TOP CREAM 50 GM JAR TP SCH (12:00)
--- NOTE | 2017-05-23 12:32 | PN ---
Progress Note (short form) - Note Progress Note: 52M well known t me w neurogenic bladder and permanent hull drainage hx: b/l renal staghorns s/p b/l JJ stents in 01/2017, last hull changed 8 weeks ago, changed today () to 18F, placed using a Mandarin wire without difficulty. draining well CT scan reviewed: b/l staghorn calculi w b/l stents and b/l hydronephrosis must r/o if hydronephrosis is mechanical or dynamic, will order diuretic renal nuclear scan on Thursday 05/25. if evidence of obstructive uropathy will recommend b/l stent exchanges
--- NOTE | 2017-05-23 14:01 | PN ---
Progress Note, Physician - Current Medication List Current Medications: Active Medications Potassium Chloride/Dextrose/Sod Cl (D5-1/2ns+20 Meq Kcl -) 20 meq in 1,000 mls @ 125 mls/hr IV ASDIR [facility] Last Admin: 05/23/17 09:00 Dose: 125 mls/hr Vancomycin HCl 1,000 mg/ (Dextrose) 250 mls @ 250 mls/hr IVPB BID@0000,1200 [facility] PRN Reason: Protocol Last Admin: 05/23/17 11:59 Dose: 250 mls/hr Meropenem (Merrem (Restricted To Id) -) 1 gm in 20 mls @ 240 mls/hr IVPUSH Q8H- IV [facility] PRN Reason: Protocol Last Admin: 05/23/17 11:59 Dose: 240 mls/hr Polyethylene Glycol (Miralax (For Daily Use) -) 17 gm PO BID [facility] Last Admin: 05/23/17 11:59 Dose: 17 grams Senna (Senna -) 2 tab PO HS [facility] Last Admin: 05/22/17 21:16 Dose: 2 tab Silver Sulfadiazine (Silvadene -) 1 applic TP DAILY [facility] Last Admin: 05/23/17 12:00 Dose: 1 applic - Objective Vital Signs: Vital Signs Temperature 97.8 F 05/22/17 22:00 Pulse Rate 80 05/22/17 22:00 Respiratory Rate 18 05/22/17 22:00 Blood Pressure 92/60 05/22/17 22:00 O2 Sat by Pulse Oximetry (%) 98 05/22/17 09:25 Cardiovascular: Yes: Regular Rate and Rhythm Respiratory: Yes: Regular, CTA Bilaterally Gastrointestinal: Yes: Normal Bowel Sounds, Soft, Distention Labs: CBC, BMP 05/21/17 06:55 05/21/17 06:55 INR, PTT INR 1.10 (0.82-1.09) 05/21/17 06:55 Assessment/Plan - Problems (1) Chronic indwelling [place] catheter Assessment/Plan: spoke to dr vickers today he will come and change the hull catheter and chris schedule patient tommorow for ureteral J stents change as its been about 6 month since it was changed Code(s): Z92.89 - PERSONAL HISTORY OF OTHER MEDICAL TREATMENT (2) Postprocedural retroperitoneal abscess Assessment/Plan: left hip wound opened and culture sent Microbiology 05/15/17 11:30 Hip - Left Gram Stain - Final 05/15/17 11:30 Hip - Left Wound Culture - Final Acinetobacter Baumannii/Haemol Mr S Aureus iv vancomycin- patient is on iv abx now Ct scan to be done today to see if IR needs to drain the abscess patient has agreed to getting ct scan done Code(s): K68.11 - POSTPROCEDURAL RETROPERITONEAL ABSCESS (3) Hirschsprung disease of rectosigmoid region Assessment/Plan: laxatives Code(s): Q43.1 - HIRSCHSPRUNG'S DISEASE (4) Fecal impaction Assessment/Plan: senna and enema s/p disimpaction by surgery ADD MIRALAX AND ENEMA Code(s): K56.41 - FECAL IMPACTION (5) Interstitial lung disease Assessment/Plan: seen by pulmonary bronchodilators Code(s): J84.9 - INTERSTITIAL PULMONARY DISEASE, UNSPECIFIED (6) Paraplegia following spinal cord injury Assessment/Plan: position and turn dvt ppx Code(s): G82.20 - PARAPLEGIA, UNSPECIFIED (7) Sacral decubitus ulcer Assessment/Plan: wound care with silver sulfadine dr snider Code(s): L89.159 - PRESSURE ULCER OF SACRAL REGION, UNSPECIFIED STAGE Qualifiers: Pressure ulcer stage: unspecified pressure ulcer stage Qualified Code(s): L89.159 - Pressure ulcer of sacral region, unspecified stage (8) Retained ureteral stent Assessment/Plan: urology to see patient to asses the need to replacement of the stents- to get then change possibly tmw Code(s): Z96.0 - PRESENCE OF UROGENITAL IMPLANTS
[2017-05-23] MEDS ORDERED: SODIUM PHOSPHATE/NA BIPHOS 133 ML ENEMA PR ONE (19:59)
--- NOTE | 2017-05-23 20:02 | PN ---
GI Progress Note Subjective: patient is non-compliant to medication and laxatives, spoke to him at length this evening - Objective Vital Signs: Vital Signs Temperature 97.5 F L 05/23/17 17:30 Pulse Rate 73 05/23/17 17:30 Respiratory Rate 18 05/23/17 17:30 Blood Pressure 112/69 05/23/17 17:30 O2 Sat by Pulse Oximetry (%) 98 05/23/17 09:00 Constitutional: Well Nourished Eyes: Yes: Conjunctiva Clear HENT: Yes: Atraumatic Neck: Yes: Supple Cardiovascular: Yes: Regular Rate and Rhythm Respiratory: Yes: CTA Bilaterally Gastrointestinal Inspection: Yes: Distention ...Palpate: Yes: Soft. No: Firm/Rigid, Guarding, Hepatomegaly, Pulsatile Mass, Splenomegaly ...Percussion: Yes: Tympanitic Labs: CBC, BMP 05/21/17 06:55 05/21/17 06:55 INR, PTT INR 1.10 (0.82-1.09) 05/21/17 06:55 Problem List - Problems (1) Fecal impaction Assessment/Plan: R> give citoma 1 bottle daily for three days fleet enemas ordered Code(s): K56.41 - FECAL IMPACTION
[2017-05-23] MEDS: SENNOSIDES 8.6MG TABLET (FP) PO SCH (22:34)
[2017-05-24] MEDS: MEROPENEM 1 GM PUSH 1 GM/20 ML DISP.SYRIN IVPUSH SCH ×3 (01:35→17:17)
[2017-05-24] MEDS: D5-1/2NS+20 MEQ KCL - 20 MEQ/1,000 ML INFUS.BAG IV SCH ×2 (06:21→17:16)
[2017-05-24] MEDS: POLYETHYLENE GLYCOL 3350 119 GM BTL PO SCH ×2 (10:29→22:39)
[2017-05-24] MEDS: SILVER SULFADIAZINE 1% TOP CREAM 50 GM JAR TP SCH (10:30)
--- NOTE | 2017-05-24 11:43 | PN ---
Progress Note, Physician - Current Medication List Current Medications: Active Medications Potassium Chloride/Dextrose/Sod Cl (D5-1/2ns+20 Meq Kcl -) 20 meq in 1,000 mls @ 125 mls/hr IV ASDIR [facility] Last Admin: 05/24/17 06:21 Dose: 125 mls/hr Vancomycin HCl 1,000 mg/ (Dextrose) 250 mls @ 250 mls/hr IVPB BID@0000,1200 [facility] PRN Reason: Protocol Last Admin: 05/23/17 23:00 Dose: 250 mls/hr Meropenem (Merrem (Restricted To Id) -) 1 gm in 20 mls @ 240 mls/hr IVPUSH Q8H- IV [facility] PRN Reason: Protocol Last Admin: 05/24/17 10:29 Dose: 240 mls/hr Polyethylene Glycol (Miralax (For Daily Use) -) 17 gm PO BID [facility] Last Admin: 05/24/17 10:29 Dose: 17 grams Senna (Senna -) 2 tab PO HS [facility] Last Admin: 05/23/17 22:34 Dose: 2 tab Silver Sulfadiazine (Silvadene -) 1 applic TP DAILY [facility] Last Admin: 05/24/17 10:30 Dose: 1 applic - Objective Vital Signs: Vital Signs Temperature 97.5 F L 05/23/17 17:30 Pulse Rate 83 05/23/17 22:00 Respiratory Rate 20 05/23/17 22:00 Blood Pressure 114/66 05/23/17 22:00 O2 Sat by Pulse Oximetry (%) 98 05/23/17 21:00 Respiratory: Yes: Regular, CTA Bilaterally Gastrointestinal: Yes: Normal Bowel Sounds, Soft, Distention Labs: CBC, BMP 05/21/17 06:55 05/21/17 06:55 INR, PTT INR 1.10 (0.82-1.09) 05/21/17 06:55 Assessment/Plan - Problems (1) Chronic indwelling [place] catheter Assessment/Plan: spoke to dr vickers today he will come and change the hull catheter and chris schedule patient tommorow for ureteral J stents change as its been about 6 month since it was changed Code(s): Z92.89 - PERSONAL HISTORY OF OTHER MEDICAL TREATMENT (2) Postprocedural retroperitoneal abscess Assessment/Plan: left hip wound opened and culture sent Microbiology 05/15/17 11:30 Hip - Left Gram Stain - Final 05/15/17 11:30 Hip - Left Wound Culture - Final Acinetobacter Baumannii/Haemol Mr S Aureus iv vancomycin- patient is on iv abx now Ct scan to be done today to see if IR needs to drain the abscess patient has agreed to getting ct scan done Code(s): K68.11 - POSTPROCEDURAL RETROPERITONEAL ABSCESS (3) Hirschsprung disease of rectosigmoid region Assessment/Plan: laxatives Code(s): Q43.1 - HIRSCHSPRUNG'S DISEASE (4) Fecal impaction Assessment/Plan: senna and enema s/p disimpaction by surgery ADD MIRALAX AND ENEMA xray Code(s): K56.41 - FECAL IMPACTION (5) Interstitial lung disease Assessment/Plan: seen by pulmonary bronchodilators Code(s): J84.9 - INTERSTITIAL PULMONARY DISEASE, UNSPECIFIED (6) Paraplegia following spinal cord injury Assessment/Plan: position and turn dvt ppx Code(s): G82.20 - PARAPLEGIA, UNSPECIFIED (7) Sacral decubitus ulcer Assessment/Plan: wound care with silver sulfadine dr snider Code(s): L89.159 - PRESSURE ULCER OF SACRAL REGION, UNSPECIFIED STAGE Qualifiers: Pressure ulcer stage: unspecified pressure ulcer stage Qualified Code(s): L89.159 - Pressure ulcer of sacral region, unspecified stage (8) Retained ureteral stent Assessment/Plan: urology to see patient to asses the need to replacement of the stents- to get then change possibly tmw Code(s): Z96.0 - PRESENCE OF UROGENITAL IMPLANTS
[2017-05-24] MEDS: VANCOMYCIN 1,000 MG in DEXTROSE 5%-WATER - 250 ML IVPB SCH ×2 (12:17→23:30)
[2017-05-24] MEDS ORDERED: INSULIN (NOVOLOG) ASPART 100 UNITS/ML 10ML VIAL ONE (21:21)
[2017-05-24] MEDS: SENNOSIDES 8.6MG TABLET (FP) PO SCH (22:39)
[2017-05-25] MEDS: MEROPENEM 1 GM PUSH 1 GM/20 ML DISP.SYRIN IVPUSH SCH ×3 (01:23→18:06)
[2017-05-25] MEDS: D5-1/2NS+20 MEQ KCL - 20 MEQ/1,000 ML INFUS.BAG IV SCH ×2 (01:23→18:08)
[2017-05-25] MEDS ORDERED: PT OWN MED DRAWER 7, Y5N ONE ×3 (11:02→23:58)
[2017-05-25] MEDS: VANCOMYCIN 1,000 MG in DEXTROSE 5%-WATER - 250 ML IVPB SCH (11:33)
[2017-05-25] MEDS: POLYETHYLENE GLYCOL 3350 119 GM BTL PO SCH ×2 (11:39→21:58)
[2017-05-25] MEDS: SILVER SULFADIAZINE 1% TOP CREAM 50 GM JAR TP SCH (11:40)
--- NOTE | 2017-05-25 11:50 | PN ---
Progress Note, Physician Chief Complaint: patient is awaiting to go to renal scan had a large BM yesterday - Current Medication List Current Medications: Active Medications Potassium Chloride/Dextrose/Sod Cl (D5-1/2ns+20 Meq Kcl -) 20 meq in 1,000 mls @ 125 mls/hr IV ASDIR [facility] Last Admin: 05/25/17 01:23 Dose: 125 mls/hr Vancomycin HCl 1,000 mg/ (Dextrose) 250 mls @ 250 mls/hr IVPB BID@0000,1200 [facility] PRN Reason: Protocol Last Admin: 05/24/17 23:30 Dose: 250 mls/hr Meropenem (Merrem (Restricted To Id) -) 1 gm in 20 mls @ 240 mls/hr IVPUSH Q8H- IV [facility] PRN Reason: Protocol Last Admin: 05/25/17 01:23 Dose: 240 mls/hr Polyethylene Glycol (Miralax (For Daily Use) -) 17 gm PO BID [facility] Last Admin: 05/24/17 22:39 Dose: Not Given Senna (Senna -) 2 tab PO HS [facility] Last Admin: 05/24/17 22:39 Dose: Not Given Silver Sulfadiazine (Silvadene -) 1 applic TP DAILY [facility] Last Admin: 05/24/17 10:30 Dose: 1 applic - Objective Vital Signs: Vital Signs Temperature 97.7 F 05/24/17 19:30 Pulse Rate 70 05/24/17 22:00 Respiratory Rate 18 05/24/17 22:00 Blood Pressure 125/65 05/24/17 22:00 O2 Sat by Pulse Oximetry (%) 98 05/24/17 21:00 Constitutional: Yes: Calm Cardiovascular: Yes: Murmur, S1, S2 Respiratory: Yes: CTA Bilaterally Gastrointestinal: Yes: Normal Bowel Sounds, Soft Genitourinary: Yes: [place] Present Edema: No Neurological: Yes: Alert, Oriented, Pre-Existing Deficit Labs: CBC, BMP 05/21/17 06:55 05/21/17 06:55 INR, PTT INR 1.10 (0.82-1.09) 05/21/17 06:55 Problem List - Problems (1) Retained ureteral stent Assessment/Plan: to get renal nuclear scan today to see if obstructive uropathy then will need stents exchange Code(s): Z96.0 - PRESENCE OF UROGENITAL IMPLANTS (2) Hirschsprung disease of rectosigmoid region Assessment/Plan: laxatives seen by GI having BM Code(s): Q43.1 - HIRSCHSPRUNG'S DISEASE (3) Chronic indwelling [place] catheter Assessment/Plan: hull cath changed on thursday by dr vickers Code(s): Z92.89 - PERSONAL HISTORY OF OTHER MEDICAL TREATMENT (4) Postprocedural retroperitoneal abscess Assessment/Plan: left hip wound opened and culture sent Microbiology 05/15/17 11:30 Hip - Left Gram Stain - Final 05/15/17 11:30 Hip - Left Wound Culture - Final Acinetobacter Baumannii/Haemol Mr S Aureus iv vancomycin- patient is on iv abx now Code(s): K68.11 - POSTPROCEDURAL RETROPERITONEAL ABSCESS (5) Fecal impaction Assessment/Plan: senna and enema s/p disimpaction by surgery Code(s): K56.41 - FECAL IMPACTION (6) Interstitial lung disease Assessment/Plan: seen by pulmonary bronchodilators Code(s): J84.9 - INTERSTITIAL PULMONARY DISEASE, UNSPECIFIED (7) Paraplegia following spinal cord injury Assessment/Plan: position and turn dvt ppx Code(s): G82.20 - PARAPLEGIA, UNSPECIFIED (8) Sacral decubitus ulcer Assessment/Plan: wound care with silver sulfadine dr snider Code(s): L89.159 - PRESSURE ULCER OF SACRAL REGION, UNSPECIFIED STAGE Qualifiers: Pressure ulcer stage: unspecified pressure ulcer stage Qualified Code(s): L89.159 - Pressure ulcer of sacral region, unspecified stage
--- NOTE | 2017-05-25 14:47 | PN ---
Progress Note, Physician History of Present Illness: Awake, alert. Non toxic appearing No c/o pain No fever/ chills Remains afebrile WBC WNL Going for renal scan - Current Medication List Current Medications: Active Medications Potassium Chloride/Dextrose/Sod Cl (D5-1/2ns+20 Meq Kcl -) 20 meq in 1,000 mls @ 125 mls/hr IV ASDIR [facility] Last Admin: 05/25/17 01:23 Dose: 125 mls/hr Vancomycin HCl 1,000 mg/ (Dextrose) 250 mls @ 250 mls/hr IVPB BID@0000,1200 [facility] PRN Reason: Protocol Last Admin: 05/25/17 11:33 Dose: 250 mls/hr Meropenem (Merrem (Restricted To Id) -) 1 gm in 20 mls @ 240 mls/hr IVPUSH Q8H- IV [facility] PRN Reason: Protocol Last Admin: 05/25/17 11:32 Dose: 240 mls/hr Polyethylene Glycol (Miralax (For Daily Use) -) 17 gm PO BID [facility] Last Admin: 05/25/17 11:39 Dose: 17 grams Senna (Senna -) 2 tab PO HS [facility] Last Admin: 05/24/17 22:39 Dose: Not Given Silver Sulfadiazine (Silvadene -) 1 applic TP DAILY [facility] Last Admin: 05/25/17 11:40 Dose: 1 applic - Objective Vital Signs: Vital Signs Temperature 97.8 F 05/25/17 14:32 Pulse Rate 67 05/25/17 14:32 Respiratory Rate 18 05/25/17 14:32 Blood Pressure 120/63 05/25/17 14:32 O2 Sat by Pulse Oximetry (%) 98 05/25/17 09:00 Constitutional: Yes: No Distress, Thin Eyes: Yes: Conjunctiva Clear Cardiovascular: Yes: Regular Rate and Rhythm, S1, S2 Respiratory: Yes: Diminished Gastrointestinal: Yes: Normal Bowel Sounds, Soft. No: Tenderness Labs: CBC, BMP 05/21/17 06:55 05/21/17 06:55 INR, PTT INR 1.10 (0.82-1.09) 05/21/17 06:55 Assessment/Plan Intra-abdominal abscess + wound c/s MRSA, MDR acinetobacter Fecal impaction Paraplegia Case discussed with outside art consultant, specifically MDR acinetobacter Will continue vancomycin D/C meropenem Substitute zithromax/ minocycline
[2017-05-25] MEDS: AZITHROMYCIN IVPB 500 MG in DEXTROSE 5%-WATER - 250 ML IVPB SCH (17:55)
--- NOTE | 2017-05-25 18:17 | PN ---
GI Progress Note Subjective: had 2 large bms yesterday, no bm today, abdomen less distended - Objective Vital Signs: Vital Signs Temperature 97.8 F 05/25/17 14:32 Pulse Rate 67 05/25/17 14:32 Respiratory Rate 18 05/25/17 14:32 Blood Pressure 120/63 05/25/17 14:32 O2 Sat by Pulse Oximetry (%) 98 05/25/17 09:00 Constitutional: No Distress Eyes: Yes: Conjunctiva Clear HENT: Yes: Atraumatic Neck: Yes: Supple Cardiovascular: Yes: Regular Rate and Rhythm Respiratory: Yes: CTA Bilaterally Gastrointestinal Inspection: Yes: Distention ...Palpate: Yes: Soft. No: Firm/Rigid, Guarding, Hepatomegaly, Mass, Pulsatile Mass, Splenomegaly, Tenderness ...Percussion: Yes: Tympanitic Labs: CBC, BMP 05/21/17 06:55 05/21/17 06:55 INR, PTT INR 1.10 (0.82-1.09) 05/21/17 06:55 Problem List - Problems (1) Fecal impaction Assessment/Plan: R> continue enemas prn, did not tolerate citrate Dulcolax 2 stabs daily Code(s): K56.41 - FECAL IMPACTION
[2017-05-25] MEDS: SENNOSIDES 8.6MG TABLET (FP) PO SCH (21:57)
[2017-05-26] MEDS: VANCOMYCIN 1,000 MG in DEXTROSE 5%-WATER - 250 ML IVPB SCH ×2 (00:07→14:48)
[2017-05-26] MEDS: MEROPENEM 1 GM PUSH 1 GM/20 ML DISP.SYRIN IVPUSH SCH ×2 (01:25→11:25)
--- NOTE | 2017-05-26 10:17 | PN ---
Progress Note, Physician Chief Complaint: patient seen and examined in bed no distress lost iv access awaitng renal scan result no fever - Current Medication List Current Medications: Active Medications Potassium Chloride/Dextrose/Sod Cl (D5-1/2ns+20 Meq Kcl -) 20 meq in 1,000 mls @ 125 mls/hr IV [facility]IR [facility] Last Admin: 05/25/17 18:08 Dose: 125 mls/hr Vancomycin HCl 1,000 mg/ (Dextrose) 250 mls @ 250 mls/hr IVPB BID@0000,1200 [facility] PRN Reason: Protocol Last Admin: 05/26/17 00:07 Dose: 250 mls/hr Meropenem (Merrem (Restricted To Id) -) 1 gm in 20 mls @ 240 mls/hr IVPUSH Q8H- IV [facility] PRN Reason: Protocol Last Admin: 05/26/17 01:25 Dose: 240 mls/hr Azithromycin 500 mg/ Dextrose 250 mls @ 250 mls/hr IVPB DAILY [facility] Last Admin: 05/25/17 17:55 Dose: 250 mls/hr Polyethylene Glycol (Miralax (For Daily Use) -) 17 gm PO BID [facility] Last Admin: 05/25/17 21:58 Dose: 17 grams Senna (Senna -) 2 tab PO HS [facility] Last Admin: 05/25/17 21:57 Dose: 2 tab Silver Sulfadiazine (Silvadene -) 1 applic TP DAILY [facility] Last Admin: 05/25/17 11:40 Dose: 1 applic - Objective Vital Signs: Vital Signs Temperature 99 F 05/25/17 22:00 Pulse Rate 74 05/25/17 22:00 Respiratory Rate 20 05/25/17 22:00 Blood Pressure 110/62 05/25/17 22:00 O2 Sat by Pulse Oximetry (%) 98 05/25/17 21:00 Constitutional: Yes: Calm Cardiovascular: Yes: Regular Rate and Rhythm, Murmur, S1, S2 Respiratory: Yes: CTA Bilaterally Gastrointestinal: Yes: Soft, Distention (less distended) Genitourinary: Yes: [place] Present Neurological: Yes: Alert, Oriented, Pre-Existing Deficit (paraplegia) Labs: CBC, BMP 05/21/17 06:55 05/21/17 06:55 INR, PTT INR 1.10 (0.82-1.09) 05/21/17 06:55 Problem List - Problems (1) Retained ureteral stent Assessment/Plan: urology follow up regarding stent exchange awaiting renal scan result Code(s): Z96.0 - PRESENCE OF UROGENITAL IMPLANTS (2) Hirschsprung disease of rectosigmoid region Assessment/Plan: laxatives seen by GI Code(s): Q43.1 - HIRSCHSPRUNG'S DISEASE (3) Chronic indwelling [place] catheter Assessment/Plan: hull cath changed on thursday by dr vickers Code(s): Z92.89 - PERSONAL HISTORY OF OTHER MEDICAL TREATMENT (4) Postprocedural retroperitoneal abscess Assessment/Plan: left hip wound opened and culture sent Microbiology 05/15/17 11:30 Hip - Left Gram Stain - Final 05/15/17 11:30 Hip - Left Wound Culture - Final Acinetobacter Baumannii/Haemol Mr S Aureus iv vancomycin- patient is on iv abx now Code(s): K68.11 - POSTPROCEDURAL RETROPERITONEAL ABSCESS (5) Fecal impaction Assessment/Plan: senna and enema- seen by GI had BMs s/p disimpaction by surgery Code(s): K56.41 - FECAL IMPACTION (6) Interstitial lung disease Assessment/Plan: seen by pulmonary bronchodilators Code(s): J84.9 - INTERSTITIAL PULMONARY DISEASE, UNSPECIFIED (7) Paraplegia following spinal cord injury Assessment/Plan: position and turn dvt ppx Code(s): G82.20 - PARAPLEGIA, UNSPECIFIED (8) Sacral decubitus ulcer Assessment/Plan: wound care with silver sulfadine dr snider Code(s): L89.159 - PRESSURE ULCER OF SACRAL REGION, UNSPECIFIED STAGE Qualifiers: Pressure ulcer stage: unspecified pressure ulcer stage Qualified Code(s): L89.159 - Pressure ulcer of sacral region, unspecified stage
[2017-05-26] MEDS: SILVER SULFADIAZINE 1% TOP CREAM 50 GM JAR TP SCH (12:17)
[2017-05-26] MEDS: POLYETHYLENE GLYCOL 3350 119 GM BTL PO SCH ×2 (12:17→23:13)
--- NOTE | 2017-05-26 14:15 | PN ---
Progress Note, Physician History of Present Illness: Awake, lethargic today. Non toxic appearing No c/o pain No fever/ chills Remains afebrile - Current Medication List Current Medications: Active Medications Potassium Chloride/Dextrose/Sod Cl (D5-1/2ns+20 Meq Kcl -) 20 meq in 1,000 mls @ 125 mls/hr IV ASDIR [facility] Last Admin: 05/25/17 18:08 Dose: 125 mls/hr Azithromycin 500 mg/ Dextrose 250 mls @ 250 mls/hr IVPB DAILY [facility] Last Admin: 05/25/17 17:55 Dose: 250 mls/hr Polyethylene Glycol (Miralax (For Daily Use) -) 17 gm PO BID [facility] Last Admin: 05/26/17 12:17 Dose: 14 grams Senna (Senna -) 2 tab PO HS [facility] Last Admin: 05/25/17 21:57 Dose: 2 tab Silver Sulfadiazine (Silvadene -) 1 applic TP DAILY [facility] Last Admin: 05/26/17 12:17 Dose: 1 applic - Objective Vital Signs: Vital Signs Temperature 99 F 05/25/17 22:00 Pulse Rate 74 05/25/17 22:00 Respiratory Rate 20 05/26/17 09:00 Blood Pressure 110/62 05/25/17 22:00 O2 Sat by Pulse Oximetry (%) 95 05/26/17 09:00 Constitutional: Yes: No Distress, Cachectic Eyes: Yes: Conjunctiva Clear Cardiovascular: Yes: Regular Rate and Rhythm, S1, S2 Respiratory: Yes: Diminished Gastrointestinal: Yes: Normal Bowel Sounds, Soft, Other (distended) Edema: Yes Labs: CBC, BMP 05/21/17 06:55 05/21/17 06:55 INR, PTT INR 1.10 (0.82-1.09) 05/21/17 06:55 Assessment/Plan Intra-abdominal abscess + wound c/s MRSA, MDR acinetobacter Fecal impaction Paraplegia Case discussed with outside speech correction consultant, specifically MDR acinetobacter Substitute zithromax/ minocycline Hold vancomycin in light of elevated trough
[2017-05-26] MEDS ORDERED: PT OWN MED DRAWER 7, Y5N ONE (17:30)
[2017-05-26] MEDS: AZITHROMYCIN IVPB 500 MG in DEXTROSE 5%-WATER - 250 ML IVPB SCH (17:59)
[2017-05-26] MEDS: D5-1/2NS+20 MEQ KCL - 20 MEQ/1,000 ML INFUS.BAG IV SCH ×2 (18:00→23:08)
[2017-05-26] MEDS: SENNOSIDES 8.6MG TABLET (FP) PO SCH (23:12)
[2017-05-27] MEDS: D5-1/2NS+20 MEQ KCL - 20 MEQ/1,000 ML INFUS.BAG IV SCH ×2 (05:37→18:09)
[2017-05-27 07:49] LABS: ALBUMIN 2.3 g/dl (3.4-5.0); BLOOD UREA NITROGEN 23 mg/dL (7-18); CHLORIDE 102 mmol/L (98-107); POTASSIUM 4.4 mmol/L (3.5-5.1); SODIUM 139 mmol/L (136-145)
[2017-05-27 07:55] LABS: ALK PHOS 110 U/L (45-117); ANION GAP 10 (8-16); BILIRUBIN,TOTAL 0.6 mg/dL (0.2-1.0); CO2 27 mmol/L (21-32); CREATININE 0.6 mg/dL (0.7-1.3); GLUCOSE,RANDOM 77 mg/dL (74-106); SGOT/AST 26 U/L (15-37); SGPT/ALT 29 U/L (12-78); TOT PROT 6.9 g/dl (6.4-8.2)
[2017-05-27] MEDS ORDERED: PT OWN MED DRAWER 7, Y5N ONE ×2 (09:01→09:14)
[2017-05-27 09:46] LABS: BASO % 0.6 % (0-2.0); EOS % 4.3 % (0-4.5); HEMOGLOBIN 10.5 GM/dL (11.7-16.9); LYMPH % 24.6 % (8-40); MCH 26.7 pg (25.7-33.7); MCHC 32.8 g/dl (32.0-35.9); MEAN CELL VOLUME 81.4 fl (80-96); MEAN PLT VOLUME 8.6 fl (7.5-11.1); MONO % 11.8 % (3.8-10.2); NEUT % 58.7 % (42.8-82.8); PLATELET COUNT 182 K/MM3 (134-434); RBC 3.93 M/mm3 (4.00-5.60); RDW 16.2 % (11.9-15.9); WHITE BLOOD COUNT 4.9 K/mm3 (4.0-10.0)
[2017-05-27] MEDS: AZITHROMYCIN IVPB 500 MG in DEXTROSE 5%-WATER - 250 ML IVPB SCH (12:04)
[2017-05-27] MEDS: POLYETHYLENE GLYCOL 3350 119 GM BTL PO SCH ×2 (12:08→21:46)
[2017-05-27] MEDS: SILVER SULFADIAZINE 1% TOP CREAM 50 GM JAR TP SCH (12:08)
--- NOTE | 2017-05-27 12:44 | PN ---
Progress Note, Physician History of Present Illness: Awake, alert . Non toxic appearing No c/o pain No fever/ chills Remains afebrile Now with PICC - Current Medication List Current Medications: Active Medications IV Flush (Picc Line Flush) 8 ml IVPUSH PRN PRN PRN Reason: Protocol Potassium Chloride/Dextrose/Sod Cl (D5-1/2ns+20 Meq Kcl -) 20 meq in 1,000 mls @ 125 mls/hr IV ASDIR [facility] Last Admin: 05/27/17 05:37 Dose: 125 mls/hr Azithromycin 500 mg/ Dextrose 250 mls @ 250 mls/hr IVPB DAILY [facility] Last Admin: 05/27/17 12:04 Dose: 250 mls/hr Non-Formulary Medication (Patient's Own Med) 100 each IVPB Q12H [facility] Polyethylene Glycol (Miralax (For Daily Use) -) 17 gm PO BID [facility] Last Admin: 05/27/17 12:08 Dose: 17 grams Senna (Senna -) 2 tab PO HS [facility] Last Admin: 05/26/17 23:12 Dose: 2 tab Silver Sulfadiazine (Silvadene -) 1 applic TP DAILY [facility] Last Admin: 05/27/17 12:08 Dose: 1 applic - Objective Vital Signs: Vital Signs Temperature 98.1 F 05/27/17 06:00 Pulse Rate 68 05/27/17 06:00 Respiratory Rate 20 05/27/17 06:00 Blood Pressure 131/75 05/27/17 06:00 O2 Sat by Pulse Oximetry (%) 95 05/26/17 21:00 Constitutional: Yes: No Distress Eyes: Yes: Conjunctiva Clear Cardiovascular: Yes: Regular Rate and Rhythm, S1, S2 Respiratory: Yes: Diminished Gastrointestinal: Yes: Normal Bowel Sounds, Soft, Other (distended, non tender) Edema: Yes Labs: CBC, BMP 05/27/17 07:00 05/27/17 07:00 INR, PTT INR 1.10 (0.82-1.09) 05/21/17 06:55 Assessment/Plan Intra-abdominal abscess + wound c/s MRSA, MDR acinetobacter Fecal impaction Paraplegia Case discussed with outside managing consultant clinical professor, specifically MDR acinetobacter Substitute zithromax/ minocycline Hold vancomycin in light of elevated trough
[2017-05-27] MEDS: MINOCYCLINE HCL IVPB SCH (15:55)
[2017-05-27] MEDS: SODIUM CHLORIDE IVPB SCH (15:55)
--- NOTE | 2017-05-27 16:04 | DS ---
Physical Examination Vital Signs: Vital Signs Temperature 97.5 F L 05/27/17 15:19 Pulse Rate 65 05/27/17 15:19 Respiratory Rate 17 05/27/17 15:19 Blood Pressure 105/47 05/27/17 15:19 O2 Sat by Pulse Oximetry (%) 95 05/26/17 21:00 Findings/Remarks: new sacral right buttock ulcer examined with nursing staf 5x6 stage 1-2 Constitutional: Yes: Mild Distress Eyes: Yes: WNL HENT: Yes: WNL Neck: Yes: WNL Cardiovascular: Yes: WNL Respiratory: Yes: WNL Gastrointestinal: Yes: WNL ...Rectal Exam: Yes: Other Renal/: Yes: WNL Musculoskeletal: Yes: Muscle Weakness Extremities: Yes: Other Edema: No Peripheral Pulses WNL: Yes Integumentary: Yes: Pressure Ulcer, Venous Stasis Changes Wound/Incision: Yes: Open to air (multiple stage 2, 3, 4 ulcers on sacra; decubiti) Neurological: Yes: Loss of Sensation, Pre-Existing Deficit, Weakness ...Motor Strength: LLE, RLE Psychiatric: Yes: WNL Labs: CBC, BMP 05/27/17 07:00 05/27/17 07:00 Discharge Summary Reason For Visit: ABSCESS AND CELLULITIS OF GLUTEAL REGION Current Active Problems Acute hypercapnic respiratory failure (Acute) Cellulitis and abscess of buttock (Acute) Constipation (Acute) Fecal impaction (Acute) Gluteal abscess (Acute) Interstitial lung disease (Acute) MDRO (multiple drug resistant organisms) resistance (Acute) Multiple drug resistant organism (MDRO) culture positive (Acute) Paraplegia following spinal cord injury (Acute) Postprocedural retroperitoneal abscess (Acute) Retained ureteral stent (Acute) Retroperitoneal abscess (Acute) Procedures: Principal: ct scan/sono Hospital Course: admitted with abd abscess/retroperitoneal treated with iv abx, wound care can be dc'd home once abx ordered by infectious disease and vasc surgery follow up for wound ulcers Condition: Fair - Instructions Diet, Activity, Other Instructions: reg wound care id consult follow up as out patient Referrals: Leola House MD [Primary Care Provider] - Disposition: VNS/HOME HEALTH CARE - Home Medications Comprehensive Discharge Medication List: Ambulatory Orders NK [No Known Home Medication] 05/12/17
[2017-05-27] MEDS ORDERED: MINERAL OIL ENEMA 133 ML ENEMA PR ONE (16:22)
--- NOTE | 2017-05-27 16:32 | PN ---
Progress Note, Physician History of Present Illness: patient tolerating bowel prep. with multiple reported bowel movements, no abdominal pain, no nausea, no vomiting. - Current Medication List Current Medications: Active Medications IV Flush (Picc Line Flush) 8 ml IVPUSH PRN PRN PRN Reason: Protocol Potassium Chloride/Dextrose/Sod Cl (D5-1/2ns+20 Meq Kcl -) 20 meq in 1,000 mls @ 125 mls/hr IV ASDIR GISEL Last Admin: 05/27/17 05:37 Dose: 125 mls/hr Azithromycin 500 mg/ Dextrose 250 mls @ 250 mls/hr IVPB DAILY [facility] Last Admin: 05/27/17 12:04 Dose: 250 mls/hr Minocycline HCl 100 mg/ Sodium (Chloride) 100 mls @ 100 mls/hr IVPB Q12H [facility] Last Admin: 05/27/17 15:55 Dose: 100 mls/hr Mineral Oil (Fleet Mineral Oil Rectal Enema -) 133 ml IN NOW ONE Stop: 05/27/17 16:23 Polyethylene Glycol (Miralax (For Daily Use) -) 17 gm PO BID [facility] Last Admin: 05/27/17 12:08 Dose: 17 grams Senna (Senna -) 2 tab PO HS [facility] Last Admin: 05/26/17 23:12 Dose: 2 tab Silver Sulfadiazine (Silvadene -) 1 applic TP DAILY [facility] Last Admin: 05/27/17 12:08 Dose: 1 applic - Objective Vital Signs: Vital Signs Temperature 97.5 F L 05/27/17 15:19 Pulse Rate 65 05/27/17 15:19 Respiratory Rate 17 05/27/17 15:19 Blood Pressure 105/47 05/27/17 15:19 O2 Sat by Pulse Oximetry (%) 95 05/26/17 21:00 Constitutional: Yes: Well Nourished, No Distress, Calm Eyes: Yes: Conjunctiva Clear HENT: Yes: Atraumatic Cardiovascular: Yes: Regular Rate and Rhythm Respiratory: Yes: Regular, CTA Bilaterally Gastrointestinal: Yes: Normal Bowel Sounds, Vomiting. No: Tenderness, Tenderness, Epigastrium, Tenderness, Rebound Labs: CBC, BMP 05/27/17 07:00 05/27/17 07:00 INR, PTT INR 1.10 (0.82-1.09) 05/21/17 06:55 Problem List - Problems (1) Constipation Assessment/Plan: Recommendation: 1. give enema now and continue prn 2. continue miralax 17gm Code(s): K59.00 - CONSTIPATION, UNSPECIFIED
[2017-05-27] MEDS: PICC LINE 8 ML FLUSH PROTOCOL IVPUSH PRN (18:10)
[2017-05-27] MEDS: SENNOSIDES 8.6MG TABLET (FP) PO SCH (21:46)
[2017-05-28] MEDS: MINOCYCLINE HCL IVPB SCH ×2 (01:29→13:30)
[2017-05-28] MEDS: SODIUM CHLORIDE IVPB SCH ×2 (01:29→13:30)
[2017-05-28] MEDS ORDERED: PT OWN MED DRAWER 7, Y5N ONE (11:09)
--- NOTE | 2017-05-28 11:28 | PN ---
Progress Note (short form) - Note Progress Note: spoke to dr vickers today he will be comming to see patient and try to convince the patient regarding stent exchange he informed me that patient was supposed to get stent exchange done on thursday of last week and was was scheduled for that procedure but the patient refused the procedure Problem List - Problems (1) Retained ureteral stent Code(s): Z96.0 - PRESENCE OF UROGENITAL IMPLANTS (2) Hirschsprung disease of rectosigmoid region Code(s): Q43.1 - HIRSCHSPRUNG'S DISEASE (3) Chronic indwelling Pelaez catheter Code(s): Z92.89 - PERSONAL HISTORY OF OTHER MEDICAL TREATMENT (4) Postprocedural retroperitoneal abscess Code(s): K68.11 - POSTPROCEDURAL RETROPERITONEAL ABSCESS (5) Fecal impaction Code(s): K56.41 - FECAL IMPACTION (6) Interstitial lung disease Code(s): J84.9 - INTERSTITIAL PULMONARY DISEASE, UNSPECIFIED (7) Paraplegia following spinal cord injury Code(s): G82.20 - PARAPLEGIA, UNSPECIFIED (8) Sacral decubitus ulcer Code(s): L89.159 - PRESSURE ULCER OF SACRAL REGION, UNSPECIFIED STAGE Qualifiers: Pressure ulcer stage: unspecified pressure ulcer stage Qualified Code(s): L89.159 - Pressure ulcer of sacral region, unspecified stage
[2017-05-28] MEDS: SILVER SULFADIAZINE 1% TOP CREAM 50 GM JAR TP SCH (11:54)
[2017-05-28] MEDS: POLYETHYLENE GLYCOL 3350 119 GM BTL PO SCH ×2 (11:54→22:42)
[2017-05-28] MEDS: AZITHROMYCIN IVPB 500 MG in DEXTROSE 5%-WATER - 250 ML IVPB SCH (11:55)
[2017-05-28] MEDS: D5-1/2NS+20 MEQ KCL - 20 MEQ/1,000 ML INFUS.BAG IV SCH ×3 (12:05→20:47)
[2017-05-28] MEDS: MINERAL OIL ENEMA 133 ML ENEMA PR PRN (16:47)
--- NOTE | 2017-05-28 17:03 | PN ---
Progress Note (short form) - Note Progress Note: patient doing better with fleet enemas. Problem List - Problems (1) Constipation Code(s): K59.00 - CONSTIPATION, UNSPECIFIED
--- NOTE | 2017-05-28 22:15 | PN ---
Progress Note, Physician History of Present Illness: Awake, alert . Non toxic appearing No c/o pain No fever/ chills Remains afebrile WBC WNL - Current Medication List Current Medications: Active Medications IV Flush (Picc Line Flush) 8 ml IVPUSH PRN PRN PRN Reason: Protocol Last Admin: 05/27/17 18:10 Dose: 8 ml Potassium Chloride/Dextrose/Sod Cl (D5-1/2ns+20 Meq Kcl -) 20 meq in 1,000 mls @ 125 mls/hr IV ASDIR GISEL Last Admin: 05/28/17 20:47 Dose: 125 mls/hr Azithromycin 500 mg/ Dextrose 250 mls @ 250 mls/hr IVPB DAILY [facility] Last Admin: 05/28/17 11:55 Dose: 250 mls/hr Minocycline HCl 100 mg/ Sodium (Chloride) 100 mls @ 100 mls/hr IVPB Q12H [facility] Last Admin: 05/28/17 13:30 Dose: 100 mls/hr Mineral Oil (Fleet Mineral Oil Rectal Enema -) 133 ml [place] DAILY PRN PRN Reason: CONSTIPATION Last Admin: 05/28/17 16:47 Dose: 133 ml Polyethylene Glycol (Miralax (For Daily Use) -) 17 gm PO BID [facility] Last Admin: 05/28/17 11:54 Dose: 17 grams Senna (Senna -) 2 tab PO HS [facility] Last Admin: 05/27/17 21:46 Dose: 2 tab Silver Sulfadiazine (Silvadene -) 1 applic TP DAILY [facility] Last Admin: 05/28/17 11:54 Dose: 1 applic - Objective Vital Signs: Vital Signs Temperature 97.7 F 05/28/17 14:33 Pulse Rate 60 05/28/17 20:54 Respiratory Rate 18 05/28/17 20:54 Blood Pressure 118/78 05/28/17 20:54 O2 Sat by Pulse Oximetry (%) 96 05/28/17 09:00 Constitutional: Yes: No Distress, Cachectic Eyes: Yes: Conjunctiva Clear Cardiovascular: Yes: Regular Rate and Rhythm, S1, S2 Respiratory: Yes: CTA Bilaterally Gastrointestinal: Yes: Normal Bowel Sounds, Soft, Other (distended). No: Tenderness Edema: Yes Edema: LLE: 1+, RLE: 1+ Labs: CBC, BMP 05/27/17 07:00 05/27/17 07:00 INR, PTT INR 1.10 (0.82-1.09) 05/21/17 06:55 Assessment/Plan Intra-abdominal abscess + wound c/s MRSA, MDR acinetobacter Fecal impaction Paraplegia Continue zithromax/ minocycline/ vancomycin Urology follow up
[2017-05-28] MEDS: SENNOSIDES 8.6MG TABLET (FP) PO SCH (22:42)
[2017-05-29] MEDS: SODIUM CHLORIDE IVPB SCH ×2 (01:55→13:22)
[2017-05-29] MEDS: MINOCYCLINE HCL IVPB SCH ×2 (01:55→13:22)
[2017-05-29] MEDS: D5-1/2NS+20 MEQ KCL - 20 MEQ/1,000 ML INFUS.BAG IV SCH ×3 (06:13→17:43)
--- NOTE | 2017-05-29 10:38 | PN ---
Progress Note, Physician Chief Complaint: Left hip abscess History of Present Illness: NAD seen by surgery seeb by Urology -Renal nuclear scan shows outlet obstruction Hull changed on 05/23 Refused stents to be exchanged last week when going down for procedure, is okay with it now Urology to see again, several calls had been made to notify Urology, Pt refuses to see anyone else Intra-abdominal abscess + wound c/s MRSA, MDR acinetobacter - Current Medication List Current Medications: Active Medications IV Flush (Picc Line Flush) 8 ml IVPUSH PRN PRN PRN Reason: Protocol Last Admin: 05/27/17 18:10 Dose: 8 ml Potassium Chloride/Dextrose/Sod Cl (D5-1/2ns+20 Meq Kcl -) 20 meq in 1,000 mls @ 125 mls/hr IV ASDIR GISEL Last Admin: 05/29/17 06:13 Dose: 125 mls/hr Azithromycin 500 mg/ Dextrose 250 mls @ 250 mls/hr IVPB DAILY [facility]S INCLUDE 234 BEDS AT THE [facility] Last Admin: 05/28/17 11:55 Dose: 250 mls/hr Minocycline HCl 100 mg/ Sodium (Chloride) 100 mls @ 100 mls/hr IVPB Q12H [facility] Last Admin: 05/29/17 01:55 Dose: 100 mls/hr Mineral Oil (Fleet Mineral Oil Rectal Enema -) 133 ml [place] DAILY PRN PRN Reason: CONSTIPATION Last Admin: 05/28/17 16:47 Dose: 133 ml Polyethylene Glycol (Miralax (For Daily Use) -) 17 gm PO BID [facility]CLUDE 234 BEDS AT THE [facility] Last Admin: 05/28/17 22:42 Dose: 17 grams Senna (Senna -) 2 tab PO HS [facility]S [facility]CLUDE 234 BEDS AT THE [facility] Last Admin: 05/28/17 22:42 Dose: 2 tab Silver Sulfadiazine (Silvadene -) 1 applic TP DAILY [facility]CLUDE 234 BEDS AT THE [facility] Last Admin: 05/28/17 11:54 Dose: 1 applic - Objective Vital Signs: Vital Signs Temperature 97.6 F 05/29/17 06:00 Pulse Rate 72 05/29/17 06:00 Respiratory Rate 18 05/29/17 06:00 Blood Pressure 113/63 05/29/17 06:00 O2 Sat by Pulse Oximetry (%) 96 05/28/17 21:00 Constitutional: Yes: Well Nourished, No Distress, Calm Cardiovascular: Yes: Regular Rate and Rhythm Respiratory: Yes: Regular Gastrointestinal: Yes: Abdomen, Obese, Hypoactive Bowel Sounds Musculoskeletal: Yes: Joint Swelling (left hip) Edema: No Peripheral Pulses WNL: Yes Neurological: Yes: Alert, Oriented Psychiatric: Yes: Alert, Oriented Labs: CBC, BMP 05/27/17 07:00 05/27/17 07:00 INR, PTT INR 1.10 (0.82-1.09) 05/21/17 06:55 Problem List - Problems (1) Cellulitis and abscess of buttock Assessment/Plan: -Retroperitoneal abscess and gluteal abscess -seen by ID -Surgery Consult -IV abx -Difficult treatment due to pt non compliance and pt being uncooperative to medical advice Code(s): L02.31 - CUTANEOUS ABSCESS OF BUTTOCK; L03.317 - CELLULITIS OF BUTTOCK (2) MDRO (multiple drug resistant organisms) resistance Assessment/Plan: -Patient known to service and ID -IV abx -PICC line -as per ID: Continue zithromax/ minocycline/ vancomycin If cleared for discharge will switch to po: minocycline 100mg po bid rifampin 600 mg po qd zithromax 500mg po qd Code(s): Z16.35 - RESISTANCE TO MULTIPLE ANTIMICROBIAL DRUGS (3) Paraplegia following spinal cord injury Assessment/Plan: Chronic Code(s): G82.20 - PARAPLEGIA, UNSPECIFIED (4) Fecal impaction Assessment/Plan: -enema -Senna Code(s): K56.41 - FECAL IMPACTION (5) Interstitial lung disease Assessment/Plan: -seen by Pulmonary Code(s): J84.9 - INTERSTITIAL PULMONARY DISEASE, UNSPECIFIED (6) Sacral decubitus ulcer Assessment/Plan: -seen by Dr Kartik martinez Code(s): L89.159 - PRESSURE ULCER OF SACRAL REGION, UNSPECIFIED STAGE Qualifiers: Pressure ulcer stage: unspecified pressure ulcer stage Qualified Code(s): L89.159 - Pressure ulcer of sacral region, unspecified stage (7) Bilateral nephrolithiasis Assessment/Plan: -Chronic -Staghorn with UPJ obstruction Code(s): N20.0 - CALCULUS OF KIDNEY (8) Chronic indwelling Hull catheter Assessment/Plan: changed by Urology on 05/23/17 Code(s): Z92.89 - PERSONAL HISTORY OF OTHER MEDICAL TREATMENT (9) Obstructive uropathy Assessment/Plan: -urology on board -chronic hull -refused urethral stent replacement last week, now okay with it -Urology to re-evaluate Code(s): N13.9 - OBSTRUCTIVE AND REFLUX UROPATHY, UNSPECIFIED Assessment/Plan see problem list
[2017-05-29] MEDS ORDERED: PT OWN MED DRAWER 7, Y5N ONE ×2 (10:41→12:59)
[2017-05-29] MEDS: AZITHROMYCIN IVPB 500 MG in DEXTROSE 5%-WATER - 250 ML IVPB SCH (11:23)
[2017-05-29] MEDS: MINERAL OIL ENEMA 133 ML ENEMA PR PRN (11:23)
[2017-05-29] MEDS: POLYETHYLENE GLYCOL 3350 119 GM BTL PO SCH (11:23)
[2017-05-29] MEDS: SILVER SULFADIAZINE 1% TOP CREAM 50 GM JAR TP SCH (11:25)
--- NOTE | 2017-05-29 11:45 | PN ---
Progress Note, Physician History of Present Illness: Awake, alert . Non toxic appearing No c/o pain No fever/ chills Remains afebrile WBC WNL - Current Medication List Current Medications: Active Medications IV Flush (Picc Line Flush) 8 ml IVPUSH PRN PRN PRN Reason: Protocol Last Admin: 05/27/17 18:10 Dose: 8 ml Potassium Chloride/Dextrose/Sod Cl (D5-1/2ns+20 Meq Kcl -) 20 meq in 1,000 mls @ 125 mls/hr IV ASDIR [facility]IS[facility] Last Admin: 05/29/17 06:13 Dose: 125 mls/hr Azithromycin 500 mg/ Dextrose 250 mls @ 250 mls/hr IVPB DAILY [facility] Last Admin: 05/29/17 11:23 Dose: 250 mls/hr Minocycline HCl 100 mg/ Sodium (Chloride) 100 mls @ 100 mls/hr IVPB Q12H [facility] Last Admin: 05/29/17 01:55 Dose: 100 mls/hr Mineral Oil (Fleet Mineral Oil Rectal Enema -) 133 ml [place] DAILY PRN PRN Reason: CONSTIPATION Last Admin: 05/29/17 11:23 Dose: 133 ml Polyethylene Glycol (Miralax (For Daily Use) -) 17 gm PO BID [facility] Last Admin: 05/29/17 11:23 Dose: 17 grams Senna (Senna -) 2 tab PO HS [facility] Last Admin: 05/28/17 22:42 Dose: 2 tab Silver Sulfadiazine (Silvadene -) 1 applic TP DAILY [facility] Last Admin: 05/29/17 11:25 Dose: 1 applic - Objective Vital Signs: Vital Signs Temperature 97.6 F 05/29/17 06:00 Pulse Rate 72 05/29/17 06:00 Respiratory Rate 18 05/29/17 06:00 Blood Pressure 113/63 05/29/17 06:00 O2 Sat by Pulse Oximetry (%) 96 05/28/17 21:00 Constitutional: Yes: No Distress Eyes: Yes: Conjunctiva Clear Cardiovascular: Yes: Regular Rate and Rhythm, S1, S2 Respiratory: Yes: CTA Bilaterally Gastrointestinal: Yes: Normal Bowel Sounds, Soft, Other (distended). No: Tenderness Edema: Yes Edema: LLE: 1+, RLE: 1+ Labs: CBC, BMP 05/27/17 07:00 05/27/17 07:00 INR, PTT INR 1.10 (0.82-1.09) 05/21/17 06:55 Assessment/Plan Intra-abdominal abscess + wound c/s MRSA, MDR acinetobacter Fecal impaction Paraplegia Continue zithromax/ minocycline/ vancomycin Urology follow up If cleared for discharge will switch to po: minocycline 100mg po bid rifampin 600 mg po qd zithromax 500mg po qd
[2017-05-29] MEDS: VANCOMYCIN 1,000 MG in DEXTROSE 5%-WATER - 250 ML IVPB SCH (15:37)
[2017-05-30] MEDS: POLYETHYLENE GLYCOL 3350 119 GM BTL PO SCH ×4 (00:01→23:16)
[2017-05-30] MEDS: SENNOSIDES 8.6MG TABLET (FP) PO SCH ×2 (00:01→23:16)
[2017-05-30] MEDS ORDERED: PT OWN MED DRAWER 7, Y5N ONE ×2 (01:41→09:13)
[2017-05-30] MEDS: SODIUM CHLORIDE IVPB SCH ×2 (01:43→14:12)
[2017-05-30] MEDS: MINOCYCLINE HCL IVPB SCH ×2 (01:43→14:12)
[2017-05-30] MEDS: D5-1/2NS+20 MEQ KCL - 20 MEQ/1,000 ML INFUS.BAG IV SCH ×3 (09:14→23:50)
[2017-05-30] MEDS: SILVER SULFADIAZINE 1% TOP CREAM 50 GM JAR TP SCH (09:15)
[2017-05-30] MEDS: AZITHROMYCIN IVPB 500 MG in DEXTROSE 5%-WATER - 250 ML IVPB SCH (09:15)
[2017-05-30] MEDS: VANCOMYCIN 1,000 MG in DEXTROSE 5%-WATER - 250 ML IVPB SCH (12:48)
[2017-05-30] MEDS: MINERAL OIL ENEMA 133 ML ENEMA PR PRN (13:02)
--- NOTE | 2017-05-30 14:20 | PN ---
Physical Exam: SUBJECTIVE: Patient seen and examined. No complaints. He denies fever, chills. OBJECTIVE: Vital Signs Period Temp Pulse Resp BP Sys/Vu Pulse Ox Last 24 Hr 97.6 F-98.6 F 65-89 18-18 110-127/64-79 98 GENERAL: The patient is awake, alert, and fully oriented, in no acute distress. LUNGS: Breath sounds equal, clear to auscultation bilaterally, no wheezes, no crackles, no accessory muscle use. HEART: Regular rate and rhythm, S1, S2 without murmur, rub or gallop. ABDOMEN: Soft, nontender, nondistended, normoactive bowel sounds, no guarding, no rebound, no hepatosplenomegaly, no masses. EXTREMITIES: 2+ pulses, warm, well-perfused, trace edema. Active Medications Generic Name Dose Route Start Last Admin Trade Name Freq PRN Reason Stop Dose Admin IV Flush 8 ml 05/26/17 14:42 05/27/17 18:10 Picc Line Flush IVPUSH 8 ml PRN PRN Administration Protocol Potassium Chloride/Dextrose/Sod Cl 20 meq in 1,000 mls @ 125 mls/hr 05/12/17 18:00 05/30/17 09:14 D5-1/2ns+20 Meq Kcl - IV 125 mls/hr ASDIR GISEL Administration Azithromycin 500 mg/ Dextrose 250 mls @ 250 mls/hr 05/25/17 15:30 05/30/17 09 :15 IVPB 250 mls/hr DAILY [facility] Administration Minocycline HCl 100 mg/ Sodium 100 mls @ 100 mls/hr 05/27/17 13:45 05/30/17 14:12 Chloride IVPB 100 mls/hr Q12H [facility] Administration Vancomycin HCl 1,000 mg/ 250 mls @ 200 mls/hr 05/29/17 13:00 05/30/17 12:48 Dextrose IVPB 200 mls/hr DAILY@1300 [facility] Administration Mineral Oil 133 ml 05/27/17 16:28 05/30/17 13:02 Fleet Mineral Oil Rectal Enema - [place] 133 ml DAILY PRN Administration CONSTIPATION Polyethylene Glycol 17 gm 05/22/17 10:00 05/30/17 09:27 Miralax (For Daily Use) - PO Not Given BID [facility] Senna 2 tab 05/14/17 22:00 05/30/17 00:01 Senna - PO Not Given HS [facility] Silver Sulfadiazine 1 applic 05/15/17 10:00 05/30/17 09:15 Silvadene - TP 1 applic DAILY [facility] Administration ASSESSMENT/PLAN: 1. Recurrent left retroperitoneal and gluteal abscess - Culture growing MRSA and MDR Acinetobacter - Continue Vancomycin, Minocycline, Zithromax - When ready for discharge, regimen will be Minocycline 100 mg PO bid, Rifampin 600 mg PO daily, Zithromax 500 mg PO daily 2. Fecal impaction - Improving - Continue Senna, Miralax, mineral oil enemas as needed 3. Paraplegia secondary to spinal cord injury 4. Interstitial lung disease - Stable 5. Multiple pressure ulcers, present on admission - Continue wound care 6. History of bilateral staghorn renal calculi with bilateral hydronephrosis - Has bilateral nephroureteral stents - Renal scan suggestive of outlet obstruction - Stent replacement recommended - Urology follow up 7. Chronic indwelling Pelaez catheter secondary to neurogenic bladder - Changed by urology on 05/23 Visit type - Emergency Visit Emergency Visit: Yes ED Registration Date: 05/12/17 Care time: The patient presented to the Emergency Department on the above date and was hospitalized for further evaluation of their emergent condition. - New Patient This patient is new to me today: Yes Date on this admission: 05/30/17 - Critical Care Critical Care patient: No
[2017-05-31] MEDS ORDERED: PT OWN MED DRAWER 7, Y5N ONE (00:54)
[2017-05-31] MEDS: SODIUM CHLORIDE IVPB SCH ×2 (02:03→14:15)
[2017-05-31] MEDS: MINOCYCLINE HCL IVPB SCH ×2 (02:03→14:15)
[2017-05-31] MEDS: D5-1/2NS+20 MEQ KCL - 20 MEQ/1,000 ML INFUS.BAG IV SCH (05:59)
[2017-05-31 09:58] LABS: BASO % 0.6 % (0-2.0); EOS % 5.8 % (0-4.5); HEMATOCRIT 33.1 % (35.4-49); HEMOGLOBIN 10.7 GM/dL (11.7-16.9); LYMPH % 19.1 % (8-40); MCH 26.2 pg (25.7-33.7); MCHC 32.3 g/dl (32.0-35.9); MEAN CELL VOLUME 81.3 fl (80-96); MEAN PLT VOLUME 8.2 fl (7.5-11.1); MONO % 10.4 % (3.8-10.2); NEUT % 64.1 % (42.8-82.8); PLATELET COUNT 162 K/MM3 (134-434); RBC 4.07 M/mm3 (4.00-5.60); RDW 16.2 % (11.9-15.9); WHITE BLOOD COUNT 5.5 K/mm3 (4.0-10.0)
[2017-05-31 10:17] LABS: ANION GAP 5 (8-16); BLOOD UREA NITROGEN 22 mg/dL (7-18); CALCIUM 7.7 mg/dL (8.5-10.1); CHLORIDE 105 mmol/L (98-107); CO2 30 mmol/L (21-32); CREATININE 0.8 mg/dL (0.7-1.3); GLUCOSE,RANDOM 102 mg/dL (74-106); POTASSIUM 4.1 mmol/L (3.5-5.1); SODIUM 140 mmol/L (136-145)
[2017-05-31] MEDS: POLYETHYLENE GLYCOL 3350 119 GM BTL PO SCH ×2 (11:01→22:07)
[2017-05-31] MEDS: AZITHROMYCIN IVPB 500 MG in DEXTROSE 5%-WATER - 250 ML IVPB SCH (11:26)
[2017-05-31] MEDS: SILVER SULFADIAZINE 1% TOP CREAM 50 GM JAR TP SCH (11:26)
[2017-05-31] MEDS: VANCOMYCIN 1,000 MG in DEXTROSE 5%-WATER - 250 ML IVPB SCH (14:15)
--- NOTE | 2017-05-31 17:47 | PN ---
Physical Exam: SUBJECTIVE: Patient seen and examined. He has no complaints. He had a BM yesterday. OBJECTIVE: Vital Signs Period Temp Pulse Resp BP Sys/Vu Pulse Ox Last 24 Hr 97.9 F-98.2 F 65-86 18-20 104-126/56-72 98 GENERAL: The patient is awake, alert, and fully oriented, in no acute distress. LUNGS: Breath sounds equal, clear to auscultation bilaterally, no wheezes, no crackles, no accessory muscle use. HEART: Regular rate and rhythm, S1, S2 without murmur, rub or gallop. ABDOMEN: Soft, nontender, nondistended, normoactive bowel sounds, no guarding, no rebound, no hepatosplenomegaly, no masses. EXTREMITIES: 2+ pulses, warm, well-perfused, trace edema. Laboratory Results - last 24 hr 05/31/17 05/31/17 09:40 09:40 WBC 5.5 RBC 4.07 Hgb 10.7 L Hct 33.1 L MCV 81.3 MCH 26.2 MCHC 32.3 RDW 16.2 H Plt Count 162 MPV 8.2 Neutrophils % 64.1 Lymphocytes % 19.1 D Monocytes % 10.4 H Eosinophils % 5.8 H Basophils % 0.6 Sodium 140 Potassium 4.1 Chloride 105 Carbon Dioxide 30 Anion Gap 5 L BUN 22 H Creatinine 0.8 D Random Glucose 102 D Calcium 7.7 L Active Medications Generic Name Dose Route Start Last Admin Trade Name Freq PRN Reason Stop Dose Admin IV Flush 8 ml 05/26/17 14:42 05/27/17 18:10 Picc Line Flush IVPUSH 8 ml PRN PRN Administration Protocol Potassium Chloride/Dextrose/Sod Cl 20 meq in 1,000 mls @ 125 mls/hr 05/12/17 18:00 05/31/17 05:59 D5-1/2ns+20 Meq Kcl - IV 125 mls/hr ASDIR GISEL Administration Azithromycin 500 mg/ Dextrose 250 mls @ 250 mls/hr 05/25/17 15:30 05/31/17 11 :26 IVPB 250 mls/hr DAILY [facility] Administration Minocycline HCl 100 mg/ Sodium 100 mls @ 100 mls/hr 05/27/17 13:45 05/31/17 14:15 Chloride IVPB 100 mls/hr Q12H [facility] Administration Vancomycin HCl 1,000 mg/ 250 mls @ 200 mls/hr 05/29/17 13:00 05/31/17 14:15 Dextrose IVPB 200 mls/hr DAILY@1300 [facility] Administration Mineral Oil 133 ml 05/27/17 16:28 05/30/17 13:02 Fleet Mineral Oil Rectal Enema - [place] 133 ml DAILY PRN Administration CONSTIPATION Polyethylene Glycol 17 gm 05/22/17 10:00 05/31/17 11:01 Miralax (For Daily Use) - PO Not Given BID [facility] Senna 2 tab 05/14/17 22:00 05/30/17 23:16 Senna - PO Not Given HS [facility] Silver Sulfadiazine 1 applic 05/15/17 10:00 05/31/17 11:26 Silvadene - TP 1 applic DAILY [facility] Administration ASSESSMENT/PLAN: 1. Recurrent left retroperitoneal and gluteal abscess - Culture growing MRSA and MDR Acinetobacter - Continue Vancomycin, Minocycline, Zithromax - When ready for discharge, regimen will be Minocycline 100 mg PO bid, Rifampin 600 mg PO daily, Zithromax 500 mg PO daily 2. Fecal impaction - Improving - Continue Senna, Miralax, mineral oil enemas as needed 3. Paraplegia secondary to spinal cord injury 4. Interstitial lung disease - Stable 5. Multiple pressure ulcers, present on admission - Continue wound care 6. History of bilateral staghorn renal calculi with bilateral hydronephrosis - Has bilateral nephroureteral stents - Renal scan suggestive of outlet obstruction - Stent replacement recommended - Urology follow up 7. Chronic indwelling Pelaez catheter secondary to neurogenic bladder - Changed by urology on 05/23 Visit type - Emergency Visit Emergency Visit: Yes ED Registration Date: 05/12/17 Care time: The patient presented to the Emergency Department on the above date and was hospitalized for further evaluation of their emergent condition. - New Patient This patient is new to me today: No - Critical Care Critical Care patient: No - Discharge Referral Referred to [facility] Med P.C.: No
[2017-05-31] MEDS: SENNOSIDES 8.6MG TABLET (FP) PO SCH ×2 (22:07→22:18)
[2017-06-01] MEDS: SODIUM CHLORIDE IVPB SCH ×2 (01:06→13:22)
[2017-06-01] MEDS: MINOCYCLINE HCL IVPB SCH ×2 (01:06→13:22)
[2017-06-01] MEDS: D5-1/2NS+20 MEQ KCL - 20 MEQ/1,000 ML INFUS.BAG IV SCH ×3 (04:12→22:45)
[2017-06-01] MEDS ORDERED: ONDANSETRON 4 MG/2 ML VIAL IVPUSH PRN (08:22)
[2017-06-01] MEDS: AZITHROMYCIN IVPB 500 MG in DEXTROSE 5%-WATER - 250 ML IVPB SCH (10:51)
[2017-06-01] MEDS: SILVER SULFADIAZINE 1% TOP CREAM 50 GM JAR TP SCH (10:52)
[2017-06-01] MEDS: POLYETHYLENE GLYCOL 3350 119 GM BTL PO SCH ×2 (10:54→22:45)
--- NOTE | 2017-06-01 12:39 | PN ---
Progress Note, Physician Chief Complaint: C/o abdominal distention no BM for past 2 days - Current Medication List Current Medications: Active Medications IV Flush (Picc Line Flush) 8 ml IVPUSH PRN PRN PRN Reason: Protocol Last Admin: 05/27/17 18:10 Dose: 8 ml Potassium Chloride/Dextrose/Sod Cl (D5-1/2ns+20 Meq Kcl -) 20 meq in 1,000 mls @ 125 mls/hr IV ASDIR [facility] Last Admin: 06/01/17 04:12 Dose: 125 mls/hr Azithromycin 500 mg/ Dextrose 250 mls @ 250 mls/hr IVPB DAILY [facility] Last Admin: 06/01/17 10:51 Dose: 250 mls/hr Minocycline HCl 100 mg/ Sodium (Chloride) 100 mls @ 100 mls/hr IVPB Q12H [facility] Last Admin: 06/01/17 01:06 Dose: 100 mls/hr Vancomycin HCl 1,000 mg/ (Dextrose) 250 mls @ 200 mls/hr IVPB DAILY@1300 [facility] Last Admin: 05/31/17 14:15 Dose: 200 mls/hr Mineral Oil (Fleet Mineral Oil Rectal Enema -) 133 ml [place] DAILY PRN PRN Reason: CONSTIPATION Last Admin: 05/30/17 13:02 Dose: 133 ml Ondansetron HCl (Zofran Injection) 4 mg IVPUSH Q4H PRN PRN Reason: NAUSEA AND/OR VOMITING Last Admin: 06/01/17 08:32 Dose: 4 mg Polyethylene Glycol (Miralax (For Daily Use) -) 17 gm PO BID [facility] Last Admin: 06/01/17 10:54 Dose: Not Given Senna (Senna -) 2 tab PO HS [facility] Last Admin: 05/31/17 22:18 Dose: 2 tab Silver Sulfadiazine (Silvadene -) 1 applic TP DAILY [facility] Last Admin: 06/01/17 10:52 Dose: 1 applic - Objective Vital Signs: Vital Signs Temperature 97.4 F L 06/01/17 09:34 Pulse Rate 78 06/01/17 09:34 Respiratory Rate 18 06/01/17 09:34 Blood Pressure 113/71 06/01/17 09:34 O2 Sat by Pulse Oximetry (%) 98 05/31/17 21:00 young man c/o abd distention HEENT: Mm moist, mild anemia NECK: No JVd No Bruit CHEST: CTA B/L CVS: S1S2 R no m/g/r ABD: distended tender BS ++, groin wound in dressing EXT: Trace rudy afeet JOB COMPOSITOR: Paraplegia Labs: CBC, BMP 05/31/17 09:40 05/31/17 09:40 INR, PTT INR 1.10 (0.82-1.09) 05/21/17 06:55 Microbiology 05/23/17 12:44 Urine - Urine Pelaez Urine Culture - Final Contaminated: Please Repeat 05/15/17 11:30 Hip - Left Gram Stain - Final 05/15/17 11:30 Hip - Left Wound Culture - Final Acinetobacter Baumannii/Haemol Mr S Aureus 05/12/17 11:46 Blood - Peripheral Venous Blood Culture - Final NO GROWTH AFTER 5 DAYS INCUBATION 05/12/17 11:46 Blood - Peripheral Venous Blood Culture - Final NO GROWTH AFTER 5 DAYS INCUBATION 05/12/17 11:46 Urine - Urine - Catheterized Urine Culture - Final Contaminated: Please Repeat Problem List - Problems (1) Fecal impaction Assessment/Plan: abdominal distention requesting enema, refusing imaging, last BM was 3 days ago , reevalute after soap enema if no relief will call surgery consult for manual dis-impactation. Code(s): K56.41 - FECAL IMPACTION (2) Multiple drug resistant organism (MDRO) culture positive Assessment/Plan: wound culture grew MDR organism abx as per ID patient is afebrile Code(s): Z16.24 - RESISTANCE TO MULTIPLE ANTIBIOTICS (3) Paraplegia following spinal cord injury Assessment/Plan: Chronic with atonic spinal balder on [place] Code(s): G82.20 - PARAPLEGIA, UNSPECIFIED (4) Interstitial lung disease Assessment/Plan: Cont current management Code(s): J84.9 - INTERSTITIAL PULMONARY DISEASE, UNSPECIFIED (5) Bilateral nephrolithiasis Assessment/Plan: S/P stent Code(s): N20.0 - CALCULUS OF KIDNEY
[2017-06-01] MEDS ORDERED: PT OWN MED DRAWER 7, Y5N ONE (13:16)
[2017-06-01] MEDS: VANCOMYCIN 1,000 MG in DEXTROSE 5%-WATER - 250 ML IVPB SCH (13:22)
[2017-06-01] MEDS: SENNOSIDES 8.6MG TABLET (FP) PO SCH (22:45)
[2017-06-02] MEDS: MINOCYCLINE HCL IVPB SCH ×2 (01:12→15:42)
[2017-06-02] MEDS: SODIUM CHLORIDE IVPB SCH ×2 (01:12→15:42)
[2017-06-02 08:20] LABS: BASO % 0.9 % (0-2.0); EOS % 4.9 % (0-4.5); HEMATOCRIT 33.1 % (35.4-49); HEMOGLOBIN 10.7 GM/dL (11.7-16.9); LYMPH % 22.2 % (8-40); MCH 26.5 pg (25.7-33.7); MCHC 32.2 g/dl (32.0-35.9); MEAN CELL VOLUME 82.2 fl (80-96); MEAN PLT VOLUME 8.4 fl (7.5-11.1); MONO % 10.9 % (3.8-10.2); NEUT % 61.1 % (42.8-82.8); PLATELET COUNT 155 K/MM3 (134-434); RBC 4.03 M/mm3 (4.00-5.60); RDW 16.5 % (11.9-15.9); WHITE BLOOD COUNT 5.3 K/mm3 (4.0-10.0)
[2017-06-02 08:47] LABS: ANION GAP 10 (8-16); BLOOD UREA NITROGEN 21 mg/dL (7-18); CALCIUM 8.2 mg/dL (8.5-10.1); CHLORIDE 105 mmol/L (98-107); CO2 25 mmol/L (21-32); CREATININE 0.6 mg/dL (0.7-1.3); GLUCOSE,RANDOM 73 mg/dL (74-106); POTASSIUM 4.6 mmol/L (3.5-5.1); SODIUM 140 mmol/L (136-145)
[2017-06-02] MEDS ORDERED: MAGNESIUM CITRATE 300 ML BOTTLE PO ONE (11:16)
[2017-06-02] MEDS ORDERED: MINERAL OIL ENEMA 133 ML ENEMA PR ONE (11:17)
[2017-06-02] MEDS ORDERED: BISACODYL 5 MG TABLET.DR (FP) PO PRN (11:17)
[2017-06-02] MEDS ORDERED: PT OWN MED DRAWER 7, Y5N ONE (11:35)
[2017-06-02] MEDS: SILVER SULFADIAZINE 1% TOP CREAM 50 GM JAR TP SCH (12:01)
[2017-06-02] MEDS: POLYETHYLENE GLYCOL 3350 119 GM BTL PO SCH ×2 (12:02→21:58)
[2017-06-02] MEDS: VANCOMYCIN 1,000 MG in DEXTROSE 5%-WATER - 250 ML IVPB SCH (12:03)
--- NOTE | 2017-06-02 13:53 | PN ---
Progress Note, Physician Chief Complaint: patient given enema and citroma GI to see patient - Current Medication List Current Medications: Active Medications Bisacodyl (Dulcolax -) 10 mg PO DAILY PRN PRN Reason: CONSTIPATION Last Admin: 06/02/17 12:02 Dose: 10 mg IV Flush (Picc Line Flush) 8 ml IVPUSH PRN PRN PRN Reason: Protocol Last Admin: 05/27/17 18:10 Dose: 8 ml Potassium Chloride/Dextrose/Sod Cl (D5-1/2ns+20 Meq Kcl -) 20 meq in 1,000 mls @ 125 mls/hr IV ASDIR [facility] Last Admin: 06/01/17 22:45 Dose: 125 mls/hr Minocycline HCl 100 mg/ Sodium (Chloride) 100 mls @ 100 mls/hr IVPB Q12H [facility] Last Admin: 06/02/17 01:12 Dose: 100 mls/hr Vancomycin HCl 1,000 mg/ (Dextrose) 250 mls @ 200 mls/hr IVPB DAILY@1300 [facility] Last Admin: 06/02/17 12:03 Dose: 200 mls/hr Mineral Oil (Fleet Mineral Oil Rectal Enema -) 133 ml [place] DAILY PRN PRN Reason: CONSTIPATION Last Admin: 05/30/17 13:02 Dose: 133 ml Ondansetron HCl (Zofran Injection) 4 mg IVPUSH Q4H PRN PRN Reason: NAUSEA AND/OR VOMITING Last Admin: 06/01/17 08:32 Dose: 4 mg Polyethylene Glycol (Miralax (For Daily Use) -) 17 gm PO BID [facility] Last Admin: 06/02/17 12:02 Dose: Not Given Senna (Senna -) 2 tab PO HS [facility] Last Admin: 06/01/17 22:45 Dose: Not Given Silver Sulfadiazine (Silvadene -) 1 applic TP DAILY [facility] Last Admin: 06/02/17 12:01 Dose: 1 applic - Objective Vital Signs: Vital Signs Temperature 97.4 F L 06/02/17 12:53 Pulse Rate 65 06/02/17 12:53 Respiratory Rate 18 06/02/17 12:53 Blood Pressure 122/72 06/02/17 12:53 O2 Sat by Pulse Oximetry (%) 99 06/01/17 21:00 Constitutional: Yes: Calm Cardiovascular: Yes: Regular Rate and Rhythm, Murmur, S1, S2 Respiratory: Yes: CTA Bilaterally Gastrointestinal: Yes: Distention Genitourinary: Yes: Hull Present Labs: CBC, BMP 06/02/17 07:40 06/02/17 07:40 INR, PTT INR 1.10 (0.82-1.09) 05/21/17 06:55 Problem List - Problems (1) Fecal impaction Assessment/Plan: citroma, minerla oil enema gi follow up dulcolax Code(s): K56.41 - FECAL IMPACTION (2) Retained ureteral stent Assessment/Plan: will get urology follow regarding stent renal scan shows outlet obstruction Code(s): Z96.0 - PRESENCE OF UROGENITAL IMPLANTS (3) Hirschsprung disease of rectosigmoid region Assessment/Plan: laxatives seen by GI Code(s): Q43.1 - HIRSCHSPRUNG'S DISEASE (4) Chronic indwelling Hull catheter Assessment/Plan: hull cath changed on thursday by dr vickers Code(s): Z92.89 - PERSONAL HISTORY OF OTHER MEDICAL TREATMENT (5) Postprocedural retroperitoneal abscess Assessment/Plan: left hip wound opened and culture sent Microbiology 05/15/17 11:30 Hip - Left Gram Stain - Final 05/15/17 11:30 Hip - Left Wound Culture - Final Acinetobacter Baumannii/Haemol Mr S Aureus will change to po abx per ID Code(s): K68.11 - POSTPROCEDURAL RETROPERITONEAL ABSCESS (6) Interstitial lung disease Assessment/Plan: seen by pulmonary bronchodilators Code(s): J84.9 - INTERSTITIAL PULMONARY DISEASE, UNSPECIFIED (7) Paraplegia following spinal cord injury Assessment/Plan: position and turn dvt ppx Code(s): G82.20 - PARAPLEGIA, UNSPECIFIED (8) Sacral decubitus ulcer Assessment/Plan: wound care with silver sulfadine dr snider Code(s): L89.159 - PRESSURE ULCER OF SACRAL REGION, UNSPECIFIED STAGE Qualifiers: Pressure ulcer stage: unspecified pressure ulcer stage Qualified Code(s): L89.159 - Pressure ulcer of sacral region, unspecified stage
[2017-06-02] MEDS ORDERED: MAGNESIUM HYDROX 2400MG/30ML ORAL SUSPENSION 30 ML CUP PO PRN (13:55)
--- NOTE | 2017-06-02 17:38 | PN ---
Progress Note, Physician Chief Complaint: Constipation 2/2 fecal impaction History of Present Illness: patient complying with citroma and enema prep. Will continue to monitor and adjust prep as needed. - Current Medication List Current Medications: Active Medications Bisacodyl (Dulcolax -) 10 mg PO DAILY PRN PRN Reason: CONSTIPATION Last Admin: 06/02/17 12:02 Dose: 10 mg IV Flush (Picc Line Flush) 8 ml IVPUSH PRN PRN PRN Reason: Protocol Last Admin: 05/27/17 18:10 Dose: 8 ml Potassium Chloride/Dextrose/Sod Cl (D5-1/2ns+20 Meq Kcl -) 20 meq in 1,000 mls @ 125 mls/hr IV ASDIR [facility] Last Admin: 06/01/17 22:45 Dose: 125 mls/hr Minocycline HCl 100 mg/ Sodium (Chloride) 100 mls @ 100 mls/hr IVPB Q12H [facility] Last Admin: 06/02/17 15:42 Dose: 100 mls/hr Vancomycin HCl 1,000 mg/ (Dextrose) 250 mls @ 200 mls/hr IVPB DAILY@1300 [facility] Last Admin: 06/02/17 12:03 Dose: 200 mls/hr Magnesium Hydroxide (Milk Of Magnesia -) 30 ml PO Q8H PRN PRN Reason: INDIGESTION Mineral Oil (Fleet Mineral Oil Rectal Enema -) 133 ml [place] DAILY PRN PRN Reason: CONSTIPATION Last Admin: 05/30/17 13:02 Dose: 133 ml Ondansetron HCl (Zofran Injection) 4 mg IVPUSH Q4H PRN PRN Reason: NAUSEA AND/OR VOMITING Last Admin: 06/01/17 08:32 Dose: 4 mg Polyethylene Glycol (Miralax (For Daily Use) -) 17 gm PO BID [facility] Last Admin: 06/02/17 12:02 Dose: Not Given Senna (Senna -) 2 tab PO HS [facility] Last Admin: 06/01/17 22:45 Dose: Not Given Silver Sulfadiazine (Silvadene -) 1 applic TP DAILY [facility] Last Admin: 06/02/17 12:01 Dose: 1 applic - Objective Vital Signs: Vital Signs Temperature 97.4 F L 06/02/17 12:53 Pulse Rate 65 06/02/17 12:53 Respiratory Rate 18 06/02/17 12:53 Blood Pressure 122/72 06/02/17 12:53 O2 Sat by Pulse Oximetry (%) 99 06/01/17 21:00 Constitutional: Yes: Well Nourished, No Distress, Calm Eyes: Yes: Conjunctiva Clear HENT: Yes: Atraumatic Cardiovascular: Yes: Regular Rate and Rhythm Respiratory: Yes: Regular, CTA Bilaterally Gastrointestinal: Yes: Normal Bowel Sounds, Distention, Rectal Bleeding, Tenderness, Rebound. No: Tenderness, Epigastrium, Vomiting Labs: CBC, BMP 06/02/17 07:40 06/02/17 07:40 INR, PTT INR 1.10 (0.82-1.09) 05/21/17 06:55 Problem List - Problems (1) Constipation Assessment/Plan: 1. continue dulcolax daily 2. continue citoma and enema Code(s): K59.00 - CONSTIPATION, UNSPECIFIED
[2017-06-02] MEDS: SENNOSIDES 8.6MG TABLET (FP) PO SCH (21:58)
[2017-06-02] MEDS: D5-1/2NS+20 MEQ KCL - 20 MEQ/1,000 ML INFUS.BAG IV SCH (21:58)
[2017-06-03] MEDS: MINOCYCLINE HCL IVPB SCH ×2 (01:43→14:47)
[2017-06-03] MEDS: SODIUM CHLORIDE IVPB SCH ×2 (01:43→14:47)
--- NOTE | 2017-06-03 10:55 | PN ---
Progress Note, Physician Chief Complaint: Left hip abscess History of Present Illness: NAD seen by surgery seeb by Urology -Renal nuclear scan shows outlet obstruction Hull changed on 05/23 Refused stents to be exchanged last week when going down for procedure, is okay with it now Urology to see again, several calls had been made to notify Urology, Pt refuses to see anyone else Intra-abdominal abscess + wound c/s MRSA, MDR acinetobacter Received mag citrate and mineral oil enema yesterday seen by GI, to be seen again today - Current Medication List Current Medications: Active Medications Bisacodyl (Dulcolax -) 10 mg PO DAILY [facility] IV Flush (Picc Line Flush) 8 ml IVPUSH PRN PRN PRN Reason: Protocol Last Admin: 05/27/17 18:10 Dose: 8 ml Minocycline HCl 100 mg/ Sodium (Chloride) 100 mls @ 100 mls/hr IVPB Q12H [facility] Last Admin: 06/03/17 01:43 Dose: 100 mls/hr Vancomycin HCl 1,000 mg/ (Dextrose) 250 mls @ 200 mls/hr IVPB DAILY@1300 [facility] Last Admin: 06/02/17 12:03 Dose: 200 mls/hr Magnesium Hydroxide (Milk Of Magnesia -) 30 ml PO Q8H [facility] Mineral Oil (Fleet Mineral Oil Rectal Enema -) [address] CT DAILY PRN PRN Reason: CONSTIPATION Last Admin: 05/30/17 13:02 Dose: 133 ml Ondansetron HCl (Zofran Injection) 4 mg IVPUSH Q4H PRN PRN Reason: NAUSEA AND/OR VOMITING Last Admin: 06/01/17 08:32 Dose: 4 mg Polyethylene Glycol (Miralax (For Daily Use) -) 17 gm PO BID [facility] Last Admin: 06/02/17 21:58 Dose: Not Given Senna (Senna -) 2 tab PO HS [facility] Last Admin: 06/02/17 21:58 Dose: Not Given Silver Sulfadiazine (Silvadene -) 1 applic TP DAILY [facility] Last Admin: 06/02/17 12:01 Dose: 1 applic - Objective Vital Signs: Vital Signs Temperature 97.8 F 06/02/17 22:00 Pulse Rate 74 06/02/17 22:00 Respiratory Rate 18 06/02/17 22:00 Blood Pressure 114/57 06/02/17 22:00 O2 Sat by Pulse Oximetry (%) 98 06/02/17 21:00 Constitutional: Yes: Well Nourished, No Distress, Calm Cardiovascular: Yes: Regular Rate and Rhythm Respiratory: Yes: Regular Gastrointestinal: Yes: Abdomen, Obese, Hypoactive Bowel Sounds Peripheral Pulses WNL: Yes Wound/Incision: Yes: Dressing Dry and Intact Neurological: Yes: Alert, Oriented Psychiatric: Yes: Alert, Oriented Labs: CBC, BMP 06/02/17 07:40 06/02/17 07:40 INR, PTT INR 1.10 (0.82-1.09) 05/21/17 06:55 Problem List - Problems (1) Cellulitis and abscess of buttock Assessment/Plan: -Retroperitoneal abscess and gluteal abscess -seen by ID -Surgery Consult -IV abx -Difficult treatment due to pt non compliance and pt being uncooperative to medical advice Code(s): L02.31 - CUTANEOUS ABSCESS OF BUTTOCK; L03.317 - CELLULITIS OF BUTTOCK (2) MDRO (multiple drug resistant organisms) resistance Assessment/Plan: -Patient known to service and ID -IV abx -PICC line -as per ID: Continue zithromax/ minocycline/ vancomycin If cleared for discharge will switch to po: minocycline 100mg po bid rifampin 600 mg po qd zithromax 500mg po qd Code(s): Z16.35 - RESISTANCE TO MULTIPLE ANTIMICROBIAL DRUGS (3) Paraplegia following spinal cord injury Assessment/Plan: Chronic Code(s): G82.20 - PARAPLEGIA, UNSPECIFIED (4) Fecal impaction Assessment/Plan: -citroma, minerla oil enema -gi follow up -dulcolax Code(s): K56.41 - FECAL IMPACTION (5) Interstitial lung disease Assessment/Plan: -seen by Pulmonary Code(s): J84.9 - INTERSTITIAL PULMONARY DISEASE, UNSPECIFIED (6) Sacral decubitus ulcer Assessment/Plan: -seen by Dr Kartik martinez Code(s): L89.159 - PRESSURE ULCER OF SACRAL REGION, UNSPECIFIED STAGE Qualifiers: Pressure ulcer stage: unspecified pressure ulcer stage Qualified Code(s): L89.159 - Pressure ulcer of sacral region, unspecified stage (7) Bilateral nephrolithiasis Assessment/Plan: -Chronic -Staghorn with UPJ obstruction Code(s): N20.0 - CALCULUS OF KIDNEY (8) Chronic indwelling [place] catheter Assessment/Plan: changed by Urology Code(s): Z92.89 - PERSONAL HISTORY OF OTHER MEDICAL TREATMENT (9) Obstructive uropathy Assessment/Plan: -urology on board -chronic hull Code(s): N13.9 - OBSTRUCTIVE AND REFLUX UROPATHY, UNSPECIFIED Assessment/Plan see problem list
--- NOTE | 2017-06-03 11:12 | DS ---
Physical Examination Vital Signs: Vital Signs Temperature 97.8 F 06/02/17 22:00 Pulse Rate 74 06/02/17 22:00 Respiratory Rate 18 06/02/17 22:00 Blood Pressure 114/57 06/02/17 22:00 O2 Sat by Pulse Oximetry (%) 98 06/02/17 21:00 Constitutional: Yes: Well Nourished, No Distress, Calm Cardiovascular: Yes: Regular Rate and Rhythm Respiratory: Yes: Regular Gastrointestinal: Yes: Abdomen, Obese, Hypoactive Bowel Sounds Wound/Incision: Yes: Dressing Dry and Intact Neurological: Yes: Alert, Oriented Psychiatric: Yes: Alert, Oriented Labs: CBC, BMP 06/02/17 07:40 06/02/17 07:40 Discharge Summary Reason For Visit: ABSCESS AND CELLULITIS OF GLUTEAL REGION Current Active Problems Acute hypercapnic respiratory failure (Acute) Cellulitis and abscess of buttock (Acute) Constipation (Acute) Fecal impaction (Acute) Gluteal abscess (Acute) Interstitial lung disease (Acute) MDRO (multiple drug resistant organisms) resistance (Acute) Multiple drug resistant organism (MDRO) culture positive (Acute) Paraplegia following spinal cord injury (Acute) Postprocedural retroperitoneal abscess (Acute) Retained ureteral stent (Acute) Retroperitoneal abscess (Acute) Hospital Course: admitted with abd abscess/retroperitoneal treated with iv abx, wound care can be dc'd home once abx ordered by infectious disease and vasc surgery follow up for wound ulcers Condition: Fair - Instructions Diet, Activity, Other Instructions: reg wound care id consult follow up as out patient CBC/CMP in 1 week Referrals: Leola House MD [Primary Care Provider] - Disposition: VNS/HOME HEALTH CARE - Home Medications Comprehensive Discharge Medication List: Ambulatory Orders Azithromycin 500 mg PO DAILY #10 tablet 06/03/17 Bisacodyl [Bisacodyl -] 10 mg PO DAILY #30 tablet.dr 06/03/17 Magnesium Hydrox 2400MG/30Ml [Milk of Magnesia -] 30 ml PO Q8H #90 cup 06/03/17 Mineral Oil Enema [Fleet Mineral Oil Rectal Enema -] 133 ml [place] DAILY PRN #30 enema 06/03/17 Minocycline HCl 100 mg PO BID #20 capsule 06/03/17 Polyethylene Glycol 3350 [Miralax 119 gm Btl -] 17 gm PO BID #3 bottle 06/03/17 Rifampin 600 mg PO DAILY 10 Days #40 capsule 06/03/17 Sennosides [Senna -] 2 tab PO HS #60 tablet 06/03/17 Silver Sulfadiazine 1% Top Cr [Silvadene -] 1 applic TP DAILY #450 g 06/03/17
[2017-06-03] MEDS: POLYETHYLENE GLYCOL 3350 119 GM BTL PO SCH ×2 (11:57→22:31)
[2017-06-03] MEDS: SILVER SULFADIAZINE 1% TOP CREAM 50 GM JAR TP SCH (11:59)
[2017-06-03] MEDS: BISACODYL 5 MG TABLET.DR (FP) PO SCH (12:53)
[2017-06-03] MEDS: MAGNESIUM HYDROX 2400MG/30ML ORAL SUSPENSION 30 ML CUP PO SCH ×2 (12:53→18:41)
[2017-06-03] MEDS: VANCOMYCIN 1,000 MG in DEXTROSE 5%-WATER - 250 ML IVPB SCH (13:00)
[2017-06-03] MEDS ORDERED: PT OWN MED DRAWER 7, Y5N ONE (14:33)
[2017-06-03] MEDS: SENNOSIDES 8.6MG TABLET (FP) PO SCH (22:30)
[2017-06-04] MEDS: SODIUM CHLORIDE IVPB SCH ×2 (02:20→14:40)
[2017-06-04] MEDS: MINOCYCLINE HCL IVPB SCH ×2 (02:20→14:40)
[2017-06-04] MEDS: MAGNESIUM HYDROX 2400MG/30ML ORAL SUSPENSION 30 ML CUP PO SCH ×3 (03:23→19:01)
--- NOTE | 2017-06-04 08:58 | PN ---
Progress Note (short form) - Note Progress Note: Discussed patient with Dr. bush, will increase enema frequency. Problem List - Problems (1) Constipation Code(s): K59.00 - CONSTIPATION, UNSPECIFIED
--- NOTE | 2017-06-04 09:25 | PN ---
Progress Note, Physician - Current Medication List Current Medications: Active Medications Bisacodyl (Dulcolax -) 10 mg PO DAILY [facility] Last Admin: 06/03/17 12:53 Dose: 10 mg IV Flush (Picc Line Flush) 8 ml IVPUSH PRN PRN PRN Reason: Protocol Last Admin: 05/27/17 18:10 Dose: 8 ml Minocycline HCl 100 mg/ Sodium (Chloride) 100 mls @ 100 mls/hr IVPB Q12H [facility] Last Admin: 06/04/17 02:20 Dose: 100 mls/hr Vancomycin HCl 1,000 mg/ (Dextrose) 250 mls @ 200 mls/hr IVPB DAILY@1300 [facility] Last Admin: 06/03/17 13:00 Dose: 200 mls/hr Magnesium Hydroxide (Milk Of Magnesia -) 30 ml PO Q8H [facility] Last Admin: 06/04/17 03:23 Dose: 30 ml Mineral Oil (Fleet Mineral Oil Rectal Enema -) 133 ml [place] DAILY PRN PRN Reason: CONSTIPATION Last Admin: 05/30/17 13:02 Dose: 133 ml Ondansetron HCl (Zofran Injection) 4 mg IVPUSH Q4H PRN PRN Reason: NAUSEA AND/OR VOMITING Last Admin: 06/01/17 08:32 Dose: 4 mg Polyethylene Glycol (Miralax (For Daily Use) -) 17 gm PO BID [facility] Last Admin: 06/03/17 22:31 Dose: Not Given Senna (Senna -) 2 tab PO HS [facility] Last Admin: 06/03/17 22:30 Dose: 2 tab Silver Sulfadiazine (Silvadene -) 1 applic TP DAILY [facility] Last Admin: 06/03/17 11:59 Dose: 1 applic - Objective Vital Signs: Vital Signs Temperature 97.8 F 06/03/17 22:00 Pulse Rate 74 06/03/17 22:00 Respiratory Rate 18 06/03/17 22:00 Blood Pressure 113/62 06/03/17 22:00 O2 Sat by Pulse Oximetry (%) 97 06/03/17 21:00 Labs: CBC, BMP 06/02/17 07:40 06/02/17 07:40 INR, PTT INR 1.10 (0.82-1.09) 05/21/17 06:55 Assessment/Plan admitted with abd abscess/retroperitoneal treated with iv abx, wound care can be dc'd home once abx ordered by infectious disease and [facility] surgery follow up for wound ulcers - Problems (1) Cellulitis and abscess of buttock Assessment/Plan: -Retroperitoneal abscess and gluteal abscess -seen by ID -Surgery Consult -IV abx -Difficult treatment due to pt non compliance and pt being uncooperative to medical advice Code(s): L02.31 - CUTANEOUS ABSCESS OF BUTTOCK; L03.317 - CELLULITIS OF BUTTOCK (2) MDRO (multiple drug resistant organisms) resistance Assessment/Plan: -Patient known to service and ID -IV abx--TO PO ON DISCHARGE -PICC line -as per ID: Continue zithromax/ minocycline/ vancomycin If cleared for discharge will switch to po: minocycline 100mg po bid rifampin 600 mg po qd zithromax 500mg po qd Code(s): Z16.35 - RESISTANCE TO MULTIPLE ANTIMICROBIAL DRUGS (3) Paraplegia following spinal cord injury Assessment/Plan: Chronic Code(s): G82.20 - PARAPLEGIA, UNSPECIFIED (4) Fecal impaction Assessment/Plan: -citroma, minerla oil enema -gi follow up and surgery follow up -dulcolax Code(s): K56.41 - FECAL IMPACTION (5) Interstitial lung disease Assessment/Plan: -seen by Pulmonary Code(s): J84.9 - INTERSTITIAL PULMONARY DISEASE, UNSPECIFIED (6) Sacral decubitus ulcer Assessment/Plan: -seen by Dr Kartik martinez Code(s): L89.159 - PRESSURE ULCER OF SACRAL REGION, UNSPECIFIED STAGE Qualifiers: Pressure ulcer stage: unspecified pressure ulcer stage Qualified Code(s): L89.159 - Pressure ulcer of sacral region, unspecified stage (7) Bilateral nephrolithiasis Assessment/Plan: -Chronic -Staghorn with UPJ obstruction Code(s): N20.0 - CALCULUS OF KIDNEY (8) Chronic indwelling [place] catheter Assessment/Plan: changed by Urology Code(s): Z92.89 - PERSONAL HISTORY OF OTHER MEDICAL TREATMENT (9) Obstructive uropathy Assessment/Plan: -urology on board -chronic hull Code(s): N13.9 - OBSTRUCTIVE AND REFLUX UROPATHY, UNSPECIFIED dc home after disimpaction
[2017-06-04] MEDS: SILVER SULFADIAZINE 1% TOP CREAM 50 GM JAR TP SCH (10:06)
[2017-06-04] MEDS ORDERED: PT OWN MED DRAWER 7, Y5N ONE ×3 (12:43→22:10)
[2017-06-04] MEDS: POLYETHYLENE GLYCOL 3350 119 GM BTL PO SCH ×2 (13:03→22:21)
[2017-06-04] MEDS: VANCOMYCIN 1,000 MG in DEXTROSE 5%-WATER - 250 ML IVPB SCH (13:03)
[2017-06-04] MEDS: BISACODYL 5 MG TABLET.DR (FP) PO SCH (13:04)
[2017-06-04] MEDS ORDERED: SODIUM PHOSPHATE/NA BIPHOS 133 ML ENEMA PR ONE (13:44)
--- NOTE | 2017-06-04 16:39 | PN ---
Progress Note, Physician Chief Complaint: Constipation 2/2 fecal impaction History of Present Illness: Patient awaken from sleep, reports small BM today and denies denies pain. - Current Medication List Current Medications: Active Medications Bisacodyl (Dulcolax -) 10 mg PO DAILY [facility] Last Admin: 06/04/17 13:04 Dose: Not Given IV Flush (Picc Line Flush) 8 ml IVPUSH PRN PRN PRN Reason: Protocol Last Admin: 05/27/17 18:10 Dose: 8 ml Minocycline HCl 100 mg/ Sodium (Chloride) 100 mls @ 100 mls/hr IVPB Q12H [facility] Last Admin: 06/04/17 14:40 Dose: 100 mls/hr Vancomycin HCl 1,000 mg/ (Dextrose) 250 mls @ 200 mls/hr IVPB DAILY@1300 [facility] Last Admin: 06/04/17 13:03 Dose: 200 mls/hr Magnesium Hydroxide (Milk Of Magnesia -) 30 ml PO Q8H [facility] Last Admin: 06/04/17 13:00 Dose: 30 ml Mineral Oil (Fleet Mineral Oil Rectal Enema -) 133 ml [place] DAILY PRN PRN Reason: CONSTIPATION Last Admin: 05/30/17 13:02 Dose: 133 ml Ondansetron HCl (Zofran Injection) 4 mg IVPUSH Q4H PRN PRN Reason: NAUSEA AND/OR VOMITING Last Admin: 06/01/17 08:32 Dose: 4 mg Polyethylene Glycol (Miralax (For Daily Use) -) 17 gm PO BID [facility] Last Admin: 06/04/17 13:03 Dose: Not Given Senna (Senna -) 2 tab PO HS [facility] Last Admin: 06/03/17 22:30 Dose: 2 tab Silver Sulfadiazine (Silvadene -) 1 applic TP DAILY [facility] Last Admin: 06/04/17 10:06 Dose: 1 applic - Objective Vital Signs: Vital Signs Temperature 98.2 F 06/04/17 14:20 Pulse Rate 69 06/04/17 14:20 Respiratory Rate 18 06/04/17 14:20 Blood Pressure 127/69 06/04/17 14:20 O2 Sat by Pulse Oximetry (%) 97 06/04/17 09:00 Constitutional: Yes: Well Nourished, No Distress, Calm Eyes: Yes: Conjunctiva Clear HENT: Yes: Atraumatic Cardiovascular: Yes: Regular Rate and Rhythm Respiratory: Yes: Regular, CTA Bilaterally Gastrointestinal: Yes: Normal Bowel Sounds, Distention. No: Hypoactive Bowel Sounds, Tenderness, Epigastrium, Vomiting Labs: CBC, BMP 06/02/17 07:40 06/02/17 07:40 INR, PTT INR 1.10 (0.82-1.09) 05/21/17 06:55 Problem List - Problems (1) Constipation Assessment/Plan: 1. continue dulcolax daily 2. continue citoma and enema Code(s): K59.00 - CONSTIPATION, UNSPECIFIED
[2017-06-04] MEDS: SENNOSIDES 8.6MG TABLET (FP) PO SCH (22:17)
[2017-06-05] MEDS: SODIUM CHLORIDE IVPB SCH ×2 (01:28→14:39)
[2017-06-05] MEDS: MINOCYCLINE HCL IVPB SCH ×2 (01:28→14:39)
[2017-06-05] MEDS: MAGNESIUM HYDROX 2400MG/30ML ORAL SUSPENSION 30 ML CUP PO SCH ×3 (03:31→18:13)
--- NOTE | 2017-06-05 09:30 | DS ---
Physical Examination Vital Signs: Vital Signs Temperature 98.5 F 06/04/17 16:36 Pulse Rate 76 06/04/17 22:00 Respiratory Rate 18 06/04/17 22:00 Blood Pressure 100/60 06/04/17 22:00 O2 Sat by Pulse Oximetry (%) 97 06/04/17 21:00 Findings/Remarks: refused enema yesterday d/w pt compliance Cardiovascular: Yes: Regular Rate and Rhythm Respiratory: Yes: Regular, CTA Bilaterally Gastrointestinal: Yes: Normal Bowel Sounds, Soft, Distention Labs: CBC, BMP 06/02/17 07:40 06/02/17 07:40 Discharge Summary Reason For Visit: ABSCESS AND CELLULITIS OF GLUTEAL REGION Current Active Problems Acute hypercapnic respiratory failure (Acute) Cellulitis and abscess of buttock (Acute) Constipation (Acute) Fecal impaction (Acute) Gluteal abscess (Acute) Interstitial lung disease (Acute) MDRO (multiple drug resistant organisms) resistance (Acute) Multiple drug resistant organism (MDRO) culture positive (Acute) Paraplegia following spinal cord injury (Acute) Postprocedural retroperitoneal abscess (Acute) Retained ureteral stent (Acute) Retroperitoneal abscess (Acute) Hospital Course: admitted with abd abscess/retroperitoneal treated with iv abx, wound care can be dc'd home once abx ordered by infectious disease and vasc surgery follow up for wound ulcers - Problems (1) Cellulitis and abscess of buttock Assessment/Plan: -Retroperitoneal abscess and gluteal abscess -seen by ID -Surgery Consult -IV abx -Difficult treatment due to pt non compliance and pt being uncooperative to medical advice Code(s): L02.31 - CUTANEOUS ABSCESS OF BUTTOCK; L03.317 - CELLULITIS OF BUTTOCK (2) MDRO (multiple drug resistant organisms) resistance Assessment/Plan: -Patient known to service and ID -IV abx--TO PO ON DISCHARGE -PICC line -as per ID: Continue zithromax/ minocycline/ vancomycin If cleared for discharge will switch to po: minocycline 100mg po bid rifampin 600 mg po qd zithromax 500mg po qd Code(s): Z16.35 - RESISTANCE TO MULTIPLE ANTIMICROBIAL DRUGS (3) Paraplegia following spinal cord injury Assessment/Plan: Chronic Code(s): G82.20 - PARAPLEGIA, UNSPECIFIED (4) Fecal impaction Assessment/Plan: -citroma, minerla oil enema -gi follow up and surgery follow up -dulcolax Code(s): K56.41 - FECAL IMPACTION (5) Interstitial lung disease Assessment/Plan: -seen by Pulmonary Code(s): J84.9 - INTERSTITIAL PULMONARY DISEASE, UNSPECIFIED (6) Sacral decubitus ulcer Assessment/Plan: -seen by Dr Kartik martinez Code(s): L89.159 - PRESSURE ULCER OF SACRAL REGION, UNSPECIFIED STAGE Qualifiers: Pressure ulcer stage: unspecified pressure ulcer stage Qualified Code(s): L89.159 - Pressure ulcer of sacral region, unspecified stage (7) Bilateral nephrolithiasis Assessment/Plan: -Chronic -Staghorn with UPJ obstruction Code(s): N20.0 - CALCULUS OF KIDNEY (8) Chronic indwelling [place] catheter Assessment/Plan: changed by Urology Code(s): Z92.89 - PERSONAL HISTORY OF OTHER MEDICAL TREATMENT (9) Obstructive uropathy Assessment/Plan: -urology on board -chronic hull Code(s): N13.9 - OBSTRUCTIVE AND REFLUX UROPATHY, UNSPECIFIED dc home after disimpaction Condition: Fair - Instructions Diet, Activity, Other Instructions: reg wound care id consult follow up as out patient CBC/CMP in 1 week Referrals: Leola House MD [Primary Care Provider] - Disposition: VNS/HOME HEALTH CARE - Home Medications Comprehensive Discharge Medication List: Ambulatory Orders Azithromycin 500 mg PO DAILY #10 tablet 06/03/17 Bisacodyl [Bisacodyl -] 10 mg PO DAILY #30 tablet. 06/03/17 Magnesium Hydrox 2400MG/30Ml [Milk of Magnesia -] 30 ml PO Q8H #90 cup 06/03/17 Mineral Oil Enema [Fleet Mineral Oil Rectal Enema -] 133 ml [place] DAILY PRN #30 enema 06/03/17 Minocycline HCl 100 mg PO BID #20 capsule 06/03/17 Polyethylene Glycol 3350 [Miralax 119 gm Btl -] 17 gm PO BID #3 bottle 06/03/17 Rifampin 600 mg PO DAILY 10 Days #40 capsule 06/03/17 Sennosides [Senna -] 2 tab PO HS #60 tablet 06/03/17 Silver Sulfadiazine 1% Top Cr [Silvadene -] 1 applic TP DAILY #450 g 06/03/17
[2017-06-05] MEDS ORDERED: PT OWN MED DRAWER 7, Y5N ONE (10:40)
[2017-06-05] MEDS: POLYETHYLENE GLYCOL 3350 119 GM BTL PO SCH ×2 (11:04→22:33)
[2017-06-05] MEDS: BISACODYL 5 MG TABLET.DR (FP) PO SCH (11:04)
[2017-06-05] MEDS: MINERAL OIL ENEMA 133 ML ENEMA PR PRN (12:30)
[2017-06-05] MEDS: SILVER SULFADIAZINE 1% TOP CREAM 50 GM JAR TP SCH (12:41)
[2017-06-05] MEDS: PICC LINE 8 ML FLUSH PROTOCOL IVPUSH PRN (14:39)
--- NOTE | 2017-06-05 17:34 | PN ---
Progress Note (short form) - Note Progress Note: Pt seen for further disimpaction. 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 retroperitoneal abscess - still with some fluid collection in left psoas on last CT imaging with some extension toward external hip, but gluteal portion externally drained spontaneously with resolution of L hip/flank cellulitis on antibiotics per ID disimpacted of moderate amount of very soft, pasty brown stool firmer stool palpable above this, but not easily reachable yet continue senna - consider increasing dose, though pt still cannot effectively push stool out of anus can continue trying enemas periodically, but would use soap suds, not mineral oil would avoid softeners more than once daily or every other day stool needs to be formed in order to facilitate evacuation and/or disimpaction manually pt needs routine/daily disimpaction of whatever is reachable this does not require surgical expertise - can and should be done by primary caregivers and/or nursing if allowed it is highly unlikely pt will ever achieve complete emptying of impacted colon impaction likely contributes to urinary retention and hydro, despite stents stents due for changing, but cystoscopy with fluid likely leads to overflow from kidney down into retroperitoneal space recommend CT imaging 24 hrs after any cystoscopy to evaluate for retroperitoneal collection in need of IR drain Before it develops into more extensive abscess and extends to peripheral tissues will check on him tomorrow, but cannot personally disimpact daily for duration of hospital stay - primary team should continue to do so Problem List - Problems (1) Postprocedural retroperitoneal abscess Code(s): K68.11 - POSTPROCEDURAL RETROPERITONEAL ABSCESS (2) Fecal impaction of colon Code(s): K56.41 - FECAL IMPACTION (3) Acquired functional megacolon Code(s): K59.39 - OTHER MEGACOLON (4) Constipation due to neurogenic bowel Code(s): K59.00 - CONSTIPATION, UNSPECIFIED (5) Bilateral nephrolithiasis Code(s): N20.0 - CALCULUS OF KIDNEY (6) Neurogenic bladder Code(s): N31.9 - NEUROMUSCULAR DYSFUNCTION OF BLADDER, UNSPECIFIED (7) Chronic indwelling Pelaez catheter Code(s): Z92.89 - PERSONAL HISTORY OF OTHER MEDICAL TREATMENT (8) Sacral decubitus ulcer Code(s): L89.159 - PRESSURE ULCER OF SACRAL REGION, UNSPECIFIED STAGE Qualifiers: Pressure ulcer stage: unspecified pressure ulcer stage Qualified Code(s): L89.159 - Pressure ulcer of sacral region, unspecified stage (9) Paraplegia following spinal cord injury Code(s): G82.20 - PARAPLEGIA, UNSPECIFIED (10) COPD (chronic obstructive pulmonary disease) Code(s): J44.9 - CHRONIC OBSTRUCTIVE PULMONARY DISEASE, UNSPECIFIED Qualifiers: COPD type: unspecified COPD Qualified Code(s): J44.9 - Chronic obstructive pulmonary disease, unspecified
[2017-06-05] MEDS: SENNOSIDES 8.6MG TABLET (FP) PO SCH (22:33)
[2017-06-06] MEDS: SODIUM CHLORIDE IVPB SCH ×2 (02:00→14:47)
[2017-06-06] MEDS: MINOCYCLINE HCL IVPB SCH ×2 (02:00→14:47)
[2017-06-06] MEDS: MAGNESIUM HYDROX 2400MG/30ML ORAL SUSPENSION 30 ML CUP PO SCH ×3 (02:43→18:23)
[2017-06-06] MEDS: SILVER SULFADIAZINE 1% TOP CREAM 50 GM JAR TP SCH (11:03)
[2017-06-06] MEDS: BISACODYL 5 MG TABLET.DR (FP) PO SCH (11:32)
[2017-06-06] MEDS: POLYETHYLENE GLYCOL 3350 119 GM BTL PO SCH ×2 (11:32→21:09)
[2017-06-06] MEDS ORDERED: PT OWN MED DRAWER 7, Y5N ONE ×2 (12:35→13:57)
--- NOTE | 2017-06-06 19:02 | PN ---
Progress Note (short form) - Note Progress Note: Pt seen again for further disimpaction. Has had little stool with laxatives and periodic enemas. 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 and has required disimpaction and bowel assistance since infancy retroperitoneal abscess - still with some fluid collection in left psoas on last CT imaging with some extension toward external hip, but gluteal portion externally drained spontaneously with resolution of L hip/flank cellulitis on antibiotics per ID digitally disimpacted of large amount of soft, pasty brown stool (1 hour) continue senna - consider increasing dose in certain positions, stool does spontaneously come out of anus, more likely related to ab/core muscles and angle, and is associated with some mild rectal prolapse can continue trying enemas periodically, but would use soap suds, not mineral oil would avoid softeners more than once daily or every other day stool needs to be formed in order to facilitate evacuation and/or disimpaction manually pt needs routine/daily disimpaction of whatever is reachable this does not require surgical expertise - can and should be done by primary caregivers and/or nursing or pt's mother if allowed it is highly unlikely pt will ever achieve complete emptying of impacted colon impaction likely contributes to urinary retention and hydro, despite stents stents due for changing, but cystoscopy with fluid likely leads to overflow from kidney down into retroperitoneal space recommend CT imaging 24 hrs after any cystoscopy to evaluate for retroperitoneal collection in need of IR drain Before it develops into more extensive abscess and extends to peripheral tissues will continue to need daily disimpaction while not home, where he can do for himself - primary team should continue to do so discussed at length with CLAIRE Knight Problem List - Problems (1) Postprocedural retroperitoneal abscess Code(s): K68.11 - POSTPROCEDURAL RETROPERITONEAL ABSCESS (2) Fecal impaction of colon Code(s): K56.41 - FECAL IMPACTION (3) Acquired functional megacolon Code(s): K59.39 - OTHER MEGACOLON (4) Constipation due to neurogenic bowel Code(s): K59.00 - CONSTIPATION, UNSPECIFIED (5) Bilateral nephrolithiasis Code(s): N20.0 - CALCULUS OF KIDNEY (6) Neurogenic bladder Code(s): N31.9 - NEUROMUSCULAR DYSFUNCTION OF BLADDER, UNSPECIFIED (7) Chronic indwelling Pelaez catheter Code(s): Z92.89 - PERSONAL HISTORY OF OTHER MEDICAL TREATMENT (8) Sacral decubitus ulcer Code(s): L89.159 - PRESSURE ULCER OF SACRAL REGION, UNSPECIFIED STAGE Qualifiers: Pressure ulcer stage: unspecified pressure ulcer stage Qualified Code(s): L89.159 - Pressure ulcer of sacral region, unspecified stage (9) Paraplegia following spinal cord injury Code(s): G82.20 - PARAPLEGIA, UNSPECIFIED (10) COPD (chronic obstructive pulmonary disease) Code(s): J44.9 - CHRONIC OBSTRUCTIVE PULMONARY DISEASE, UNSPECIFIED Qualifiers: COPD type: unspecified COPD Qualified Code(s): J44.9 - Chronic obstructive pulmonary disease, unspecified
[2017-06-06] MEDS: SENNOSIDES 8.6MG TABLET (FP) PO SCH (21:09)
--- NOTE | 2017-06-06 21:40 | PN ---
Progress Note, Physician Chief Complaint: Left hip abscess History of Present Illness: NAD Disimpacted today by Surgery - Current Medication List Current Medications: Active Medications Bisacodyl (Dulcolax -) 10 mg PO DAILY [facility] Last Admin: 06/06/17 11:32 Dose: Not Given IV Flush (Picc Line Flush) 8 ml IVPUSH PRN PRN PRN Reason: Protocol Last Admin: 06/05/17 14:39 Dose: 8 ml Minocycline HCl 100 mg/ Sodium (Chloride) 100 mls @ 100 mls/hr IVPB Q12H [facility] Last Admin: 06/06/17 14:47 Dose: 100 mls/hr Magnesium Hydroxide (Milk Of Magnesia -) 30 ml PO Q8H [facility] Last Admin: 06/06/17 18:23 Dose: 30 ml Mineral Oil (Fleet Mineral Oil Rectal Enema -) 133 ml [place] DAILY PRN PRN Reason: CONSTIPATION Last Admin: 06/05/17 12:30 Dose: 133 ml Ondansetron HCl (Zofran Injection) 4 mg IVPUSH Q4H PRN PRN Reason: NAUSEA AND/OR VOMITING Last Admin: 06/01/17 08:32 Dose: 4 mg Polyethylene Glycol (Miralax (For Daily Use) -) 17 gm PO BID [facility] Last Admin: 06/06/17 21:09 Dose: Not Given Senna (Senna -) 2 tab PO HS [facility] Last Admin: 06/06/17 21:09 Dose: 2 tab Silver Sulfadiazine (Silvadene -) 1 applic TP DAILY [facility] Last Admin: 06/06/17 11:03 Dose: 1 applic - Objective Vital Signs: Vital Signs Temperature 98.6 F 06/06/17 17:36 Pulse Rate 71 06/06/17 17:36 Respiratory Rate 18 06/06/17 17:36 Blood Pressure 98/66 06/06/17 17:36 O2 Sat by Pulse Oximetry (%) 95 06/06/17 09:00 Constitutional: Yes: Well Nourished, No Distress, Calm Cardiovascular: Yes: Regular Rate and Rhythm Respiratory: Yes: Regular Gastrointestinal: Yes: Abdomen, Obese Neurological: Yes: Alert, Oriented Psychiatric: Yes: Alert, Oriented Labs: CBC, BMP 06/02/17 07:40 06/02/17 07:40 INR, PTT INR 1.10 (0.82-1.09) 05/21/17 06:55 Problem List - Problems (1) Cellulitis and abscess of buttock Assessment/Plan: -Retroperitoneal abscess and gluteal abscess -seen by ID -Surgery Consult -IV abx--> change to PO upon discharge, prescriptions sent in to his pharmacy -Difficult treatment due to pt non compliance and pt being uncooperative to medical advice Code(s): L02.31 - CUTANEOUS ABSCESS OF BUTTOCK; L03.317 - CELLULITIS OF BUTTOCK (2) MDRO (multiple drug resistant organisms) resistance Assessment/Plan: -Patient known to service and ID -IV abx-PO abx upon discharge as per ID -PICC line Code(s): Z16.35 - RESISTANCE TO MULTIPLE ANTIMICROBIAL DRUGS (3) Paraplegia following spinal cord injury Assessment/Plan: Chronic Code(s): G82.20 - PARAPLEGIA, UNSPECIFIED (4) Fecal impaction Assessment/Plan: -citroma, minerla oil enema -gi follow up -dulcolax -manually disimpacted by surgery Code(s): K56.41 - FECAL IMPACTION (5) Interstitial lung disease Assessment/Plan: -seen by Pulmonary Code(s): J84.9 - INTERSTITIAL PULMONARY DISEASE, UNSPECIFIED (6) Sacral decubitus ulcer Assessment/Plan: -seen by Dr Kartik martinez Code(s): L89.159 - PRESSURE ULCER OF SACRAL REGION, UNSPECIFIED STAGE Qualifiers: Pressure ulcer stage: unspecified pressure ulcer stage Qualified Code(s): L89.159 - Pressure ulcer of sacral region, unspecified stage (7) Bilateral nephrolithiasis Assessment/Plan: -Chronic -Staghorn with UPJ obstruction Code(s): N20.0 - CALCULUS OF KIDNEY (8) Chronic indwelling Hull catheter Assessment/Plan: changed by Urology Code(s): Z92.89 - PERSONAL HISTORY OF OTHER MEDICAL TREATMENT (9) Obstructive uropathy Assessment/Plan: -urology on board -chronic hull Code(s): N13.9 - OBSTRUCTIVE AND REFLUX UROPATHY, UNSPECIFIED Assessment/Plan see problem list
[2017-06-07] MEDS: SODIUM CHLORIDE IVPB SCH ×2 (02:46→13:54)
[2017-06-07] MEDS: MINOCYCLINE HCL IVPB SCH ×2 (02:46→13:54)
[2017-06-07] MEDS: MAGNESIUM HYDROX 2400MG/30ML ORAL SUSPENSION 30 ML CUP PO SCH ×3 (03:03→18:12)
[2017-06-07] MEDS: SILVER SULFADIAZINE 1% TOP CREAM 50 GM JAR TP SCH (10:43)
[2017-06-07] MEDS: POLYETHYLENE GLYCOL 3350 119 GM BTL PO SCH ×2 (12:31→22:42)
[2017-06-07] MEDS: BISACODYL 5 MG TABLET.DR (FP) PO SCH (12:31)
[2017-06-07] MEDS ORDERED: PT OWN MED DRAWER 7, Y5N ONE (13:20)
[2017-06-07] MEDS: SENNOSIDES 8.6MG TABLET (FP) PO SCH (22:42)
[2017-06-08] MEDS ORDERED: PT OWN MED DRAWER 7, Y5N ONE ×2 (00:55→13:46)
[2017-06-08] MEDS: MINOCYCLINE HCL IVPB SCH ×2 (01:02→14:12)
[2017-06-08] MEDS: SODIUM CHLORIDE IVPB SCH ×2 (01:02→14:12)
[2017-06-08] MEDS: MAGNESIUM HYDROX 2400MG/30ML ORAL SUSPENSION 30 ML CUP PO SCH ×3 (02:50→18:56)
--- NOTE | 2017-06-08 09:35 | DS ---
Physical Examination Vital Signs: Vital Signs Temperature 97.6 F 06/07/17 20:43 Pulse Rate 71 06/07/17 20:43 Respiratory Rate 18 06/07/17 20:43 Blood Pressure 118/72 06/07/17 20:43 O2 Sat by Pulse Oximetry (%) 96 06/07/17 21:00 Cardiovascular: Yes: Regular Rate and Rhythm Respiratory: Yes: Regular, CTA Bilaterally Gastrointestinal: Yes: Normal Bowel Sounds, Soft Labs: CBC, BMP 06/02/17 07:40 06/02/17 07:40 Discharge Summary Reason For Visit: ABSCESS AND CELLULITIS OF GLUTEAL REGION Current Active Problems Acute hypercapnic respiratory failure (Acute) Cellulitis and abscess of buttock (Acute) Constipation (Acute) Fecal impaction (Acute) Gluteal abscess (Acute) Interstitial lung disease (Acute) MDRO (multiple drug resistant organisms) resistance (Acute) Multiple drug resistant organism (MDRO) culture positive (Acute) Paraplegia following spinal cord injury (Acute) Postprocedural retroperitoneal abscess (Acute) Retained ureteral stent (Acute) Retroperitoneal abscess (Acute) Hospital Course: admitted with abd abscess/retroperitoneal treated with iv abx, wound care can be dc'd home once abx ordered by infectious disease and [facility] surgery follow up for wound ulcers - Problems (1) Cellulitis and abscess of buttock Assessment/Plan: -Retroperitoneal abscess and gluteal abscess -seen by ID -Surgery Consult -IV abx -Difficult treatment due to pt non compliance and pt being uncooperative to medical advice Code(s): L02.31 - CUTANEOUS ABSCESS OF BUTTOCK; L03.317 - CELLULITIS OF BUTTOCK (2) MDRO (multiple drug resistant organisms) resistance Assessment/Plan: -Patient known to service and ID -IV abx--TO PO ON DISCHARGE -PICC line -as per ID: Continue zithromax/ minocycline/ vancomycin If cleared for discharge will switch to po: minocycline 100mg po bid rifampin 600 mg po qd zithromax 500mg po qd Code(s): Z16.35 - RESISTANCE TO MULTIPLE ANTIMICROBIAL DRUGS (3) Paraplegia following spinal cord injury Assessment/Plan: Chronic Code(s): G82.20 - PARAPLEGIA, UNSPECIFIED (4) Fecal impaction Assessment/Plan: -citroma, minerla oil enema -gi follow up and surgery follow up noted and appreciated -d/w pt -dulcolax Code(s): K56.41 - FECAL IMPACTION (5) Interstitial lung disease Assessment/Plan: -seen by Pulmonary Code(s): J84.9 - INTERSTITIAL PULMONARY DISEASE, UNSPECIFIED (6) Sacral decubitus ulcer Assessment/Plan: -seen by Dr Kartik martinez Code(s): L89.159 - PRESSURE ULCER OF SACRAL REGION, UNSPECIFIED STAGE Qualifiers: Pressure ulcer stage: unspecified pressure ulcer stage Qualified Code(s): L89.159 - Pressure ulcer of sacral region, unspecified stage (7) Bilateral nephrolithiasis Assessment/Plan: -Chronic -Staghorn with UPJ obstruction Code(s): N20.0 - CALCULUS OF KIDNEY (8) Chronic indwelling Hull catheter Assessment/Plan: changed by Urology Code(s): Z92.89 - PERSONAL HISTORY OF OTHER MEDICAL TREATMENT (9) Obstructive uropathy Assessment/Plan: -urology on board -chronic hull Code(s): N13.9 - OBSTRUCTIVE AND REFLUX UROPATHY, UNSPECIFIED Condition: Fair - Instructions Diet, Activity, Other Instructions: reg wound care id consult follow up as out patient CBC/CMP in 1 week Referrals: Leola House MD [Primary Care Provider] - Disposition: VNS/HOME HEALTH CARE - Home Medications Comprehensive Discharge Medication List: Ambulatory Orders Bisacodyl [Bisacodyl -] 10 mg PO DAILY #30 tablet. 06/03/17 Magnesium Hydrox 2400MG/30Ml [Milk of Magnesia -] 30 ml PO Q8H #90 cup 06/03/17 Mineral Oil Enema [Fleet Mineral Oil Rectal Enema -] 133 ml IN DAILY PRN #30 enema 06/03/17 Minocycline HCl 100 mg PO BID #20 capsule 06/03/17 Polyethylene Glycol 3350 [Miralax 119 gm Btl -] 17 gm PO BID #3 bottle 06/03/17 Sennosides [Senna -] 2 tab PO HS #60 tablet 06/03/17 Silver Sulfadiazine 1% Top Cr [Silvadene -] 1 applic TP DAILY #450 g 06/03/17
[2017-06-08] MEDS: BISACODYL 5 MG TABLET.DR (FP) PO SCH (12:50)
[2017-06-08] MEDS: POLYETHYLENE GLYCOL 3350 119 GM BTL PO SCH ×2 (12:50→22:31)
[2017-06-08] MEDS: SILVER SULFADIAZINE 1% TOP CREAM 50 GM JAR TP SCH (14:11)
[2017-06-08] MEDS ORDERED: VANCOMYCIN 1,000 MG in DEXTROSE 5%-WATER - 250 ML IVPB SCH (15:00)
[2017-06-08] MEDS: PICC LINE 8 ML FLUSH PROTOCOL IVPUSH PRN ×2 (15:22→17:23)
--- NOTE | 2017-06-08 22:11 | PN ---
Progress Note (short form) - Note Progress Note: Pt seen again for further disimpaction. 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 and has required disimpaction and bowel assistance since infancy digitally disimpacted of large amount of soft brown stool (1/2 hour) - initially soft and sherice-like, then more pasty and muddy in certain positions, stool does get squeezed out of anus, more likely related to ab/core muscles and angle, and is associated with some rectal prolapse can continue trying enemas periodically, but would use soap suds, not mineral oil would avoid softeners more than once daily or every other day stool needs to be formed in order to facilitate evacuation and/or disimpaction manually pt needs routine/daily disimpaction of whatever is reachable this does not require surgical expertise - can and should be done by primary caregivers and/or nursing or pt's mother if allowed it is highly unlikely pt will ever achieve complete emptying of impacted colon impaction likely contributes to urinary retention and hydro, despite stents stents due for changing, but cystoscopy with fluid likely leads to overflow from kidney down into retroperitoneal space recommend CT imaging 24 hrs after any cystoscopy to evaluate for retroperitoneal collection in need of IR drain Before it develops into more extensive abscess and extends to peripheral tissues - pt aware of this will continue to need daily disimpaction - primary team should continue to do so Problem List - Problems (1) Postprocedural retroperitoneal abscess Code(s): K68.11 - POSTPROCEDURAL RETROPERITONEAL ABSCESS (2) Fecal impaction of colon Code(s): K56.41 - FECAL IMPACTION (3) Acquired functional megacolon Code(s): K59.39 - OTHER MEGACOLON (4) Constipation due to neurogenic bowel Code(s): K59.00 - CONSTIPATION, UNSPECIFIED (5) Bilateral nephrolithiasis Code(s): N20.0 - CALCULUS OF KIDNEY (6) Neurogenic bladder Code(s): N31.9 - NEUROMUSCULAR DYSFUNCTION OF BLADDER, UNSPECIFIED (7) Chronic indwelling Pelaez catheter Code(s): Z92.89 - PERSONAL HISTORY OF OTHER MEDICAL TREATMENT (8) Sacral decubitus ulcer Code(s): L89.159 - PRESSURE ULCER OF SACRAL REGION, UNSPECIFIED STAGE Qualifiers: Pressure ulcer stage: unspecified pressure ulcer stage Qualified Code(s): L89.159 - Pressure ulcer of sacral region, unspecified stage (9) Paraplegia following spinal cord injury Code(s): G82.20 - PARAPLEGIA, UNSPECIFIED (10) COPD (chronic obstructive pulmonary disease) Code(s): J44.9 - CHRONIC OBSTRUCTIVE PULMONARY DISEASE, UNSPECIFIED Qualifiers: COPD type: unspecified COPD Qualified Code(s): J44.9 - Chronic obstructive pulmonary disease, unspecified
[2017-06-08] MEDS: SENNOSIDES 8.6MG TABLET (FP) PO SCH (22:31)
[2017-06-09] MEDS: SODIUM CHLORIDE IVPB SCH (02:25)
[2017-06-09] MEDS: MINOCYCLINE HCL IVPB SCH (02:25)
[2017-06-09] MEDS: MAGNESIUM HYDROX 2400MG/30ML ORAL SUSPENSION 30 ML CUP PO SCH ×2 (02:26→12:46)
[2017-06-09 10:11] VITALS: BP 131/75; PULSE 82; TEMP 98.5
[2017-06-09] MEDS: BISACODYL 5 MG TABLET.DR (FP) PO SCH (12:45)
[2017-06-09] MEDS: POLYETHYLENE GLYCOL 3350 119 GM BTL PO SCH (12:45)
--- NOTE | 2017-06-09 13:54 | PN ---
Progress Note, Physician Chief Complaint: patient seen today zamateo in morning picc line removed - Objective Vital Signs: Vital Signs Temperature 98.5 F 06/09/17 10:00 Pulse Rate 82 06/09/17 10:00 Respiratory Rate 20 06/09/17 10:00 Blood Pressure 131/75 06/09/17 10:00 O2 Sat by Pulse Oximetry (%) 98 06/08/17 21:00 Constitutional: Yes: Calm Cardiovascular: Yes: Regular Rate and Rhythm, Murmur, S1, S2 Respiratory: Yes: CTA Bilaterally Gastrointestinal: Yes: Normal Bowel Sounds, Soft Genitourinary: Yes: Hull Present Neurological: Yes: Alert, Oriented, Pre-Existing Deficit (paraplegia) Labs: CBC, BMP 06/02/17 07:40 06/02/17 07:40 INR, PTT INR 1.10 (0.82-1.09) 05/21/17 06:55 Problem List - Problems (1) Fecal impaction Assessment/Plan: got disimpacted yesterday Code(s): K56.41 - FECAL IMPACTION (2) Retained ureteral stent Assessment/Plan: per urology patient had refuse to get stents exchanged will FU as outpatient Code(s): Z96.0 - PRESENCE OF UROGENITAL IMPLANTS (3) Hirschsprung disease of rectosigmoid region Assessment/Plan: laxatives seen by GI Code(s): Q43.1 - HIRSCHSPRUNG'S DISEASE (4) Chronic indwelling Hull catheter Assessment/Plan: hull cath changed on thursday by dr vickers Code(s): Z92.89 - PERSONAL HISTORY OF OTHER MEDICAL TREATMENT (5) Postprocedural retroperitoneal abscess Assessment/Plan: left hip wound opened and culture sent Microbiology 05/15/17 11:30 Hip - Left Gram Stain - Final 05/15/17 11:30 Hip - Left Wound Culture - Final Acinetobacter Baumannii/Haemol Mr S Aureus will change to po abx per ID minocycline 100mg po bid rifampin 600 mg po qd zithromax 500mg po qd Code(s): K68.11 - POSTPROCEDURAL RETROPERITONEAL ABSCESS (6) Interstitial lung disease Assessment/Plan: seen by pulmonary bronchodilators Code(s): J84.9 - INTERSTITIAL PULMONARY DISEASE, UNSPECIFIED (7) Paraplegia following spinal cord injury Assessment/Plan: position and turn dvt ppx Code(s): G82.20 - PARAPLEGIA, UNSPECIFIED (8) Sacral decubitus ulcer Assessment/Plan: wound care with silver sulfadine dr snider Code(s): L89.159 - PRESSURE ULCER OF SACRAL REGION, UNSPECIFIED STAGE Qualifiers: Pressure ulcer stage: unspecified pressure ulcer stage Qualified Code(s): L89.159 - Pressure ulcer of sacral region, unspecified stage Assessment/Plan dc home today
== END 2017-06-09 12:49 | disposition home health service (06) | DRG 862 ==
LOC: JER 11:02 → JERBED 15:35 → J5S 20:32
PROVIDERS: ADMIT Family Medicine; ATTEND Family Medicine
PROC: 02HV33Z Insertion of Infusion Device into Superior Vena Cava, Percutaneous Approach (ICD-10-PCS; principal; 2017-05-26)
PROC: B518ZZA Fluoroscopy of Superior Vena Cava, Guidance (ICD-10-PCS; 2017-05-26)
DX: K68.11 Postprocedural retroperitoneal abscess (principal); J96.01 Acute respiratory failure with hypoxia; L89.613 Pressure ulcer of right heel, stage 3; L89.313 Pressure ulcer of right buttock, stage 3; L02.31 Cutaneous abscess of buttock; G82.20 Paraplegia, unspecified; Q43.1 Hirschsprung's disease; K59.2 Neurogenic bowel, not elsewhere classified; J84.9 Interstitial pulmonary disease, unspecified; L02.416 Cutaneous abscess of left lower limb; R64 Cachexia; R18.8 Other ascites; L02.211 Cutaneous abscess of abdominal wall; N13.0 Hydronephrosis with ureteropelvic junction obstruction; L03.317 Cellulitis of buttock; L89.212 Pressure ulcer of right hip, stage 2; N31.8 Other neuromuscular dysfunction of bladder; Z68.22 Body mass index [BMI] 22.0-22.9, adult; L89.159 Pressure ulcer of sacral region, unspecified stage; B95.62 Methicillin resistant Staphylococcus aureus infection as the cause of diseases classified elsewhere; B96.89 Other specified bacterial agents as the cause of diseases classified elsewhere; Z16.35 Resistance to multiple antimicrobial drugs; Z91.14 Patient's other noncompliance with medication regimen; J44.9 Chronic obstructive pulmonary disease, unspecified; F17.210 Nicotine dependence, cigarettes, uncomplicated; K59.09 Other constipation; N31.9 Neuromuscular dysfunction of bladder, unspecified
CPT/HCPCS: 36415; 36569; 36600; 71045-TC-FY; 74018-TC-FY; 74176-TC; 74177-TC; 77001-TC-FY; 78708-TC; 80048; 80053; 81003; 81015; 82550; 82803; 83605; 83735; 84100; 84484; 85025; 85027; 85610; 85651; 85730; 86140; 86850; 86870; 86900; 86901; 86902; 87040; 87070; 87086; 87186; 87205; 93005; 93010; 99285-25; A9562; C1751; G0480; J2265

== ENCOUNTER 2017-07-23 13:11 | Inpatient (IN) | payer OTHER ==
--- NOTE | 2017-07-23 14:30 | PDOC ---
History of Present Illness - General Stated Complaint: ABSCESS Time Seen by Provider: 07/23/17 13:22 History Source: Patient Exam Limitations: No Limitations - History of Present Illness Initial Comments: 07/23/17 14:23 The patient is a 52M with a PMH of T6 paraplegia, neurogenic bladder, who presents to the ER with complaints of 3-4 days of noticing redness on his L flank. The patient states that he cannot feel anything below his abdomen but noticed worsening redness and induration on his L flank. He denies any fever, chills, nausea, vomiting, CP, SOB, but states that he does feel a decreased amount of urine and more difficulty urinating. The patient has an indwelling catheter. Past History - Past Medical History Allergies/Adverse Reactions: Allergies Allergy/AdvReac Type Severity Reaction Status Date / Time polymyxin B Allergy Mild Itching Verified 05/12/17 11:18 Home Medications: Ambulatory Orders Bisacodyl [Bisacodyl -] 10 mg PO DAILY #30 tablet. 06/03/17 Magnesium Hydrox 2400MG/30Ml [Milk of Magnesia -] 30 ml PO Q8H #90 cup 06/03/17 Mineral Oil Enema [Fleet Mineral Oil Rectal Enema -] 133 ml NH DAILY PRN #30 enema 06/03/17 Minocycline HCl 100 mg PO BID #20 capsule 06/03/17 Polyethylene Glycol 3350 [Miralax 119 gm Btl -] 17 gm PO BID #3 bottle 06/03/17 Sennosides [Senna -] 2 tab PO HS #60 tablet 06/03/17 Silver Sulfadiazine 1% Top Cr [Silvadene -] 1 applic TP DAILY #450 g 06/03/17 Azithromycin 500 mg PO DAILY #10 tablet 06/08/17 Rifampin [Rifadin -] 600 mg PO DAILY #10 capsule 06/08/17 Anemia: Yes Asthma: No Cancer: No Cardiac Disorders: No CVA: No COPD: Yes CHF: No Dementia: No Diabetes: No GI Disorders: Yes (neurogenic bowel with persistent constipation, GI bleed, cholelithiasis) Disorders: Yes (neurogenic bladder, UTIs, permanent hull) HTN: No Hypercholesterolemia: No Kidney Stones: Yes (haley staghorn calculi, haley stents) Liver Disease: No Seizures: No Thyroid Disease: No - Surgical History Abdominal Surgery: No Appendectomy: No Cardiac Surgery: No Cholecystectomy: No Lung Surgery: No Neurologic Surgery: No Orthopedic Surgery: Yes - Family Disease History Family Disease History: Diabetes: Mother, Heart Disease: Father - Immunization History Immunization Up to Date: Yes - Suicide/Smoking/Psychosocial Hx Smoking Status: Yes Smoking History: Current every day smoker Years of Tobacco Use: 35 Have you smoked in the past 12 months: Yes Number of Cigarettes Smoked Daily: 15 If you are a former smoker, when did you quit?: 03/2014 Cigars Per Day: 5 'Breaking Loose' booklet given: 06/08/15 Hx Alcohol Use: No Drug/Substance Use Hx: No Substance Use Type: None Hx Substance Use Treatment: No Review of Systems - Review of Systems Able to Perform ROS?: Yes Comments:: 07/23/17 14:28 GENERAL/CONSTITUTIONAL: No fever or chills. No weakness. HEAD, EYES, EARS, NOSE AND THROAT: No change in vision. No ear pain or discharge. No sore throat. CARDIOVASCULAR: No chest pain, palpitations, or lightheadedness. RESPIRATORY: No cough, wheezing, shortness of breath, or hemoptysis. GASTROINTESTINAL: No nausea, vomiting, diarrhea, constipation, or abdominal pain. GENITOURINARY: Positive for difficulty urinating. No dysuria, frequency, or hematuria. MUSCULOSKELETAL: No joint or muscle swelling or pain. No neck or back pain. SKIN: Positive for R flank redness, induration, and abscess. NEUROLOGIC: No headache, numbness, tingling, weakness, loss of consciousness, or change in strength/sensation. ENDOCRINE: No increased thirst. No abnormal weight change. HEMATOLOGIC/LYMPHATIC: No anemia, easy bleeding, or history of blood clots. ALLERGIC/IMMUNOLOGIC: No hives or skin allergy. Is the patient limited [place]i proficient: No *Physical Exam - Physical Exam Comments: 07/23/17 14:30 GENERAL: Well developed, well nourished. Awake and alert. No acute distress. HEENT: Normocephalic, atraumatic. Hearing grossly normal. Moist mucous membranes. PERRLA, EOMI. No conjunctival pallor. Sclera are non-icteric. NECK: Supple. Full ROM. CARDIOVASCULAR: Regular rate and rhythm. 3+ systolic murmur on L sternal border. PULMONARY: No evidence of respiratory distress. Lungs clear to auscultation bilaterally. No wheezing, rales or rhonchi. ABDOMINAL: Soft. Non-tender. Non-distended. No rebound or guarding. GENITOURINARY: No CVA tenderness bilaterally. MUSCULOSKELETAL: Normal range of motion at all joints. No bony deformities or tenderness. EXTREMITIES: No cyanosis. No clubbing. No edema. No calf tenderness. SKIN: 7 inch circular, erythematous, and fluctuating lesion on L flank. Warm and dry. Normal capillary refill. No rashes. No jaundice. NEUROLOGICAL: Alert, awake, appropriate. Cranial nerves 2-12 intact. Normal speech. PSYCHIATRIC: Cooperative. Good eye contact. Appropriate mood and affect. ED Treatment Course - LABORATORY CBC & Chemistry Diagram: 07/23/17 16:10 07/23/17 16:10 - RADIOLOGY Radiology Studies Ordered: Category Date Time Status ABDOMEN & PELVIS CT WITH CONTR [CT] Stat CT Scan 07/23/17 14:05 Ordered Medical Decision Making - Medical Decision Making 07/23/17 14:31 The patient is a 52M with a PMH of T6 paraplegia and neurogenic bladder who presents to the ER with recurrent abscess on his L flank. He was seen in April for a similar complaint. Will cover with broad spectrum abx. Once labs/ imaging return, will admit to hospital under Dr. House, PCP. 07/23/17 18:35 CT shows abscess that reaches to retroperitoneum as well as osteomyelitic changes. Continuing Abx. Endorsed to [facility] under Dr. House. *DC/Admit/Observation/Transfer Diagnosis at time of Disposition: Retroperitoneal fluid collection - Discharge Dispostion Condition at time of disposition: Stable Decision to Admit order: Yes - Referrals Referrals: Leola House MD [Primary Care Provider] - - Patient Instructions - Post Discharge Activity
[2017-07-23] MEDS ORDERED: LORazepam 1 MG TABLET PO ONE (14:42)
[2017-07-23] MEDS ORDERED: VANCOMYCIN 1,000 MG in DEXTROSE 5%-WATER - 250 ML IVPB ONE (14:42)
[2017-07-23] MEDS ORDERED: PIPERACILLIN/TAZOB 3.375 GM 3.375 GM in DEXTROSE 5%-WATER - 50 ML IVPB ONE (14:43)
--- NOTE | 2017-07-23 14:46 | PDOC ---
Attending Attestation - Resident Resident Name: Khoa Lipscomb - ED Attending Attestation I have performed the following: I have examined & evaluated the patient, The case was reviewed & discussed with the resident, I agree w/resident's findings & plan, Exceptions are as noted - HPI HPI: 07/23/17 14:44 52-year-old male with past medical history of T6 Blasier, history urine tract infectious, history of kidney stones and left ureteral stent, Hirschsprung's disease sent in for evaluation for left flank abscess. 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 No fevers or chills. - Physicial Exam PE: 07/23/17 14:44 GENERAL: Awake, alert, and fully oriented, in no acute distress. HEAD: No signs of trauma EYES: PERRLA, EOMI, sclera anicteric, conjunctiva clear ENT: Auricles normal inspection, hearing grossly normal, nares patent, NECK: Normal ROM, supple NEUROLOGICAL: Cranial nerves II through XII grossly intact. Normal speech SKIN: Warm, Dry, normal turgor, no rashes or lesions noted. Left flank with approximately 12 x 12 cm induration, erythema in left flank. - Medical Decision Making 07/23/17 14:45 In the previous admission, the patient required IR drainage for the flank abscess. I suspect that this may be a similar situation. Given prior hx of MRSA, other bacteria, will require IV abx including vanc/zosyn Labs including cultures. CT abdomen and pelvis with IV contrast to evaluate extent of abscess/infection. Admit
[2017-07-23 15:46] LABS: URINE APPEARANCE TURBID; URINE BILIRUBIN NEGATIVE (<2.0 mg/dL); URINE BLOOD 2+ (NEGATIVE); URINE COLOR AMBER; URINE GLUCOSE (UA) NEGATIVE (NEGATIVE); URINE KETONE TRACE (NEGATIVE); URINE NITRITE NEGATIVE (NEGATIVE); URINE UROBILINOGEN 4.0 E.U/dl mg/dL (0.2-1.0)
[2017-07-23] MEDS ORDERED: ACETAMINOPHEN 325 MG TABLET (FP) PO ONE (16:00)
[2017-07-23] MEDS ORDERED: LORazepam 0.5 MG TABLET ONE (16:03)
[2017-07-23] MEDS ORDERED: ACETAMINOPHEN 325 MG TABLET (FP) ONE (16:31)
[2017-07-23] MEDS ORDERED: VANCOMYCIN 1 GRAM (PRE-DOCKED) 1,000 MG/250 ML BAG IVPB ONE (16:31)
[2017-07-23] MEDS ORDERED: PIPERACILLIN/TAZOB 3.375 GM 3.375 GM/50 ML BAG IVPB ONE (16:32)
[2017-07-23 16:35] LABS: BASO % 0.5 % (0-2.0); EOS % 0.2 % (0-4.5); HEMATOCRIT 36.7 % (35.4-49); HEMOGLOBIN 12.3 GM/dL (11.7-16.9); MCH 27.7 pg (25.7-33.7); MCHC 33.7 g/dl (32.0-35.9); MEAN CELL VOLUME 82.3 fl (80-96); MEAN PLT VOLUME 8.5 fl (7.5-11.1); MONO % 7.4 % (3.8-10.2); NEUT % 85.9 % (42.8-82.8); PLATELET COUNT 317 K/MM3 (134-434); RBC 4.46 M/mm3 (4.00-5.60); RDW 17.5 % (11.9-15.9)
[2017-07-23 16:40] LABS: URINE LEUK ESTERASE 3+ (NEGATIVE); URINE PROTEIN 2+ (NEGATIVE)
[2017-07-23 16:43] LABS: EPI CELLS MODERATE /HPF (FEW); URINE BACTERIA RARE /hpf (NONE SEEN); URINE MUCUS FEW
[2017-07-23 16:58] LABS: INR 1.34 (0.82-1.09); PROTHROMBIN TIME (PATIENT) 15.1 SEC (9.7-13.0)
[2017-07-23 17:10] LABS: ALBUMIN 2.8 g/dl (3.4-5.0); ALK PHOS 120 U/L (45-117); ANION GAP 13 (8-16); BILIRUBIN,TOTAL 0.5 mg/dL (0.2-1.0); BLOOD UREA NITROGEN 21 mg/dL (7-18); CALCIUM 9.2 mg/dL (8.5-10.1); CHLORIDE 99 mmol/L (98-107); CO2 23 mmol/L (21-32); CREATININE 0.9 mg/dL (0.7-1.3); GLUCOSE,RANDOM 88 mg/dL (74-106); POTASSIUM 4.3 mmol/L (3.5-5.1); SGOT/AST 30 U/L (15-37); SGPT/ALT 24 U/L (12-78); SODIUM 135 mmol/L (136-145); TOT PROT 8.1 g/dl (6.4-8.2)
[2017-07-23 19:02] VITALS: BMI 21.9
--- NOTE | 2017-07-23 21:30 | HP ---
CHIEF COMPLAINT: redness L flank PCP: [facility] HISTORY OF PRESENT ILLNESS: This is a 52 year old male with a significant past medical history of T6 paraplegia, neurogenic bladder and colon with chronic constipation, recent hosptialization 05/12-06/09/17 for left flank abscess, fecal impaction who presented to the ED with Left flank redness. Pt states that he completed his antibiotics 10 days after discharge from the hospital and hasn't been on any since. He also reports that he has not been taking any medications at home despite [place] recommendations for multiple laxatives. 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, GI bleed, cholelithiasis, COPD PAST SURGICAL HISTORY: previous tracheostomy and reversal 1987 previous Gtube and removal 1987 Social History: Smokin/4 PPD Alcohol: pt denies Drugs: pt denies Family History: mother alive with DM, HLD father age 79, many medical problems including heart, HTN, HLD brother alive and well Allergies polymyxin B Allergy (Mild, Verified 05/12/17 11:18) Itching HOME MEDICATIONS: No current home medications as per pt REVIEW OF SYSTEMS CONSTITUTIONAL: Absent: fever, chills, diaphoresis, generalized weakness, malaise, loss of appetite, weight change HEENT: Absent: rhinorrhea, nasal congestion, throat pain, throat swelling, difficulty swallowing, mouth swelling, ear pain, eye pain, visual changes CARDIOVASCULAR: Absent: chest pain, syncope, palpitations, irregular heart rate, lightheadedness , peripheral edema RESPIRATORY: Absent: cough, shortness of breath, dyspnea with exertion, orthopnea, wheezing, stridor, hemoptysis GASTROINTESTINAL: Absent: abdominal pain, abdominal distension, nausea, vomiting, diarrhea, constipation, melena, hematochezia GENITOURINARY: Absent: dysuria, frequency, urgency, hesitancy, hematuria, flank pain, genital pain MUSCULOSKELETAL: Absent: myalgia, arthralgia, joint swelling, back pain, neck pain SKIN: Present: Left flank redness Absent: rash, itching, pallor HEMATOLOGIC/IMMUNOLOGIC: Absent: easy bleeding, easy bruising, lymphadenopathy, frequent infections ENDOCRINE: Absent: unexplained weight gain, unexplained weight loss, heat intolerance, cold intolerance NEUROLOGIC: Absent: headache, focal weakness or paresthesias, dizziness, unsteady gait, seizure, mental status changes, bladder or bowel incontinence PSYCHIATRIC: Absent: anxiety, depression, suicidal or homicidal ideation, hallucinations. PHYSICAL EXAMINATION Vital Signs - 24 hr 3 07/23/17 13:11 Temperature 98.2 F Pulse Rate 74 Respiratory 20 Rate Blood Pressure 144/62 GENERAL: Awake, alert, and fully oriented, in no acute distress. HEAD: Normal with no signs of trauma. EYES: Pupils equal, round and reactive to light, extraocular movements intact, sclera anicteric, conjunctiva clear. No lid lag. EARS, NOSE, THROAT: Ears normal, nares patent, oropharynx clear without exudates. Moist mucous membranes. NECK: Normal range of motion, supple without lymphadenopathy, JVD, or masses. LUNGS: Breath sounds equal, clear to auscultation bilaterally. No wheezes, and no crackles. No accessory muscle use. HEART: Regular rate and rhythm, normal S1 and S2 without murmur, rub or gallop. ABDOMEN: Soft, nontender, not distended, normoactive bowel sounds, no guarding, no rebound, no masses. No hepatomegaly or splenomegaly. MUSCULOSKELETAL: Normal range of motion at all joints. No bony deformities or tenderness. No CVA tenderness. UPPER EXTREMITIES: 2+ pulses, warm, well-perfused. No cyanosis. No clubbing. No peripheral edema. LOWER EXTREMITIES: 2+ pulses, warm, well-perfused. No calf tenderness. No peripheral edema. NEUROLOGICAL: Cranial nerves II-XII intact. Normal speech. no sensation or movement waist down PSYCHIATRIC: Cooperative. Good eye contact. Appropriate mood and affect. SKIN: Warm, dry, normal turgor, no rashes or lesions noted, normal capillary refill. erythema noted left lower flank (poor visulization of area as patient refused to remove clothing until he gets upstairs) Laboratory Results - last 24 hr 3 07/23/17 07/23/17 07/23/17 15:30 16:10 16:10 WBC 12.0 H D RBC 4.46 Hgb 12.3 D Hct 36.7 MCV 82.3 MCH 27.7 MCHC 33.7 RDW 17.5 H Plt Count 317 D MPV 8.5 Neutrophils % 85.9 H D Lymphocytes % 6.0 L D Monocytes % 7.4 Eosinophils % 0.2 D Basophils % 0.5 PT with INR 15.10 H INR 1.34 H Sodium Potassium Chloride Carbon Dioxide Anion Gap BUN Creatinine Creat Clearance w eGFR Random Glucose Lactic Acid Calcium Total Bilirubin AST ALT Alkaline Phosphatase Total Protein Albumin Urine Color Shelley Urine Appearance Turbid Urine pH 5.0 Ur Specific [place] 1.018 Urine Protein 2+ H Urine Glucose (UA) Negative Urine Ketones Trace H Urine Blood 2+ H Urine Nitrite Negative Urine Bilirubin Negative Urine Urobilinogen 4.0 e.u/dl Ur Leukocyte Esterase 3+ H Urine WBC (Auto) 1367 Urine RBC (Auto) 133 Ur Epithelial Cells Moderate Urine Bacteria Rare Urine Mucus Few Blood Type Antibody Screen 3 07/23/17 07/23/17 07/23/17 16:10 16:10 16:10 WBC RBC Hgb Hct MCV MCH MCHC RDW Plt Count MPV Neutrophils % Lymphocytes % Monocytes % Eosinophils % Basophils % PT with INR INR Sodium 135 L Potassium 4.3 Chloride 99 Carbon Dioxide 23 Anion Gap 13 BUN 21 H Creatinine 0.9 D Creat Clearance w eGFR > 60 Random Glucose 88 D Lactic Acid 1.3 Calcium 9.2 Total Bilirubin 0.5 AST 30 ALT 24 Alkaline Phosphatase 120 H Total Protein 8.1 Albumin 2.8 L D Urine Color Urine Appearance Urine pH Ur Specific [place] Urine Protein Urine Glucose (UA) Urine Ketones Urine Blood Urine Nitrite Urine Bilirubin Urine Urobilinogen Ur Leukocyte Esterase Urine WBC (Auto) Urine RBC (Auto) Ur Epithelial Cells Urine Bacteria Urine Mucus Blood Type O POSITIVE Antibody Screen Positive H Radiology Reports CT abd/pelvis w/o contrast There is a typographical error in the impression. There is no small bowel obstruction. Impression: 1. Left flank skin thickening is most compatible with the provided clinical history of cellulitis. Large multiloculated subcutaneous collection in the left flank extending into the left retroperitoneum and pelvis as described above is most likely a large abscess. Please correlate clinically and with fluid analysis. 2. Area of osteolysis with surrounding sclerosis in the left half of the L5 vertebral body is similar to 05/12/2017 CT, likely attributed to osteomyelitis. 3. Additional areas of chronic osteomyelitis in the posterior iliac bones and sacrum are similar to prior CT. Overlying skin thickening and subcutaneous soft tissue extending up to the anal sphincter is similar dating back to at least . Please correlate clinically with physical exam for active cellulitis and phlegmon. 4. Massive impacted stool within the sigmoid colon and proximal rectum. Fecal disimpaction is recommended. No small bowel obstruction. 4. Pelaez catheter balloon within the prosthetic urethra. Repositioning with advancement is recommended. 5. Bilateral nephroureteral stents are unchanged in position. Persistent moderate to severe bilateral hydroureteronephrosis, similar to the prior CT. Please correlate clinically for functioning status of these stents. 6. Please refer to the report above for other findings, which are not significantly changed since 05/21/2017 CT. 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 L retroperitoneal abscess - started on vancomycin and zosyn - ID consult - surgical consult fecal impaction - pt refused disimpaction in the ED, stating he wanted to wait upstairs - went to see pt at 1140pm for disimpaction, pt refused, stating he would "see me in the morning" bilat hydronephrosis - FC in prosthetic urethra, balloon deflated, inserted a few cm further after cleansing area, balloon reinflated with 10cm sterile saline, urine draining freely, advised pt to be careful when applying leg bag to apply high enough on leg that it isn't pulling on catheter. Pt replied "thats impossible; i 've been doing this for 30 years what do you know about me? You met me 3 hours ago. - urology consult sacral decubiti - pt refused exam DVT PPX - heparin 5000u TID FEN - tolerating po - BMP in am - regular diet as tolerated Dispo: pt currently requires further inpatient management of his emergent condition. Visit type - Emergency Visit Emergency Visit: Yes ED Registration Date: 07/23/17 Care time: The patient presented to the Emergency Department on the above date and was hospitalized for further evaluation of their emergent condition. - New Patient This patient is new to me today: Yes Date on this admission: 07/23/17 - Critical Care Critical Care patient: No Hospitalist Screening - Colonoscopy Questionnaire Colonoscopy Questionnaire: Colonoscopy Questionnaire - Patient: 50 - 75 years old and never had a screening colonoscopy: Unknown History of colon or rectal polyps, or CA: Unknown History of IBD, Crohn's disease or UC: Unknown History of abdominal radiation therapy as a child: Unknown - Relative: 1 with colon or rectal CA, or polyps at age 60 or younger: Unknown Colon or rectal CA diagnosed at age 45 or younger: Unknown Multiple relatives with colon or rectal CA: Unknown - Outcome: Screening Result: Negative Screen
[2017-07-23] MEDS ORDERED: DEXTROSE 5%-WATER - 50 ML IVPB ONE (23:29)
[2017-07-23] MEDS ORDERED: PIPERACILLIN/TAZOBACTAM 3.375 GM VIAL IVPB ONE (23:29)
[2017-07-24] MEDS ORDERED: PIPERACILLIN/TAZOB 3.375 GM 3.375 GM in DEXTROSE 5%-WATER - 50 ML IVPB ONE
[2017-07-24] MEDS: HEPARIN NA (PORCINE) 5,000 UNITS/ML 1ML VIAL SQ SCH ×3 (06:48→22:22)
[2017-07-24 07:04] LABS: BASO % 0.5 % (0-2.0); EOS % 0.9 % (0-4.5); HEMOGLOBIN 11.3 GM/dL (11.7-16.9); LYMPH % 4.9 % (8-40); MCH 27.5 pg (25.7-33.7); MCHC 33.3 g/dl (32.0-35.9); MEAN CELL VOLUME 82.5 fl (80-96); MONO % 6.2 % (3.8-10.2); NEUT % 87.5 % (42.8-82.8); PLATELET COUNT 296 K/MM3 (134-434); RBC 4.12 M/mm3 (4.00-5.60); RDW 17.1 % (11.9-15.9); WHITE BLOOD COUNT 10.7 K/mm3 (4.0-10.0)
[2017-07-24 07:24] LABS: ANION GAP 9 (8-16); BLOOD UREA NITROGEN 21 mg/dL (7-18); CALCIUM 7.9 mg/dL (8.5-10.1); CHLORIDE 102 mmol/L (98-107); CO2 23 mmol/L (21-32); CREATININE 0.7 mg/dL (0.7-1.3); GLUCOSE,RANDOM 95 mg/dL (74-106); PHOSPHOROUS 3.2 mg/dL (2.5-4.9); POTASSIUM 4.3 mmol/L (3.5-5.1); SODIUM 134 mmol/L (136-145)
[2017-07-24 07:25] LABS: MAGNESIUM 2.2 mg/dL (1.8-2.4)
[2017-07-24] MEDS ORDERED: PATIENT'S OWN MEDICATION (NON-FORMULARY) (Minocycline Hcl [Minocycline Hcl] 100 MG) PO SCH (13:00)
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
[2017-07-24] MEDS: POLYETHYLENE GLYCOL 3350 119 GM BTL PO SCH ×2 (16:25→22:21)
[2017-07-24] MEDS: BISACODYL 5 MG TABLET.DR (FP) PO SCH (16:25)
[2017-07-24] MEDS: MAGNESIUM HYDROX 2400MG/30ML ORAL SUSPENSION 30 ML CUP PO SCH ×2 (16:25→22:21)
--- NOTE | 2017-07-24 17:15 | PN ---
Progress Note (short form) - Note Progress Note: ID Consult dictated Recurrent intra-abdominal abscess secondary to source Possible sepsis secondary to abscess Hx MDR pathogens Obstructive uropathy Paraplegia Await c/s Empiric zosyn/ vancomycin Abscess drainage Surgical/ urology follow up Contact precautions
[2017-07-24] MEDS ORDERED: diphenhydrAMINE HCL 25 MG CAPSULE (FP) PO PRN (17:22)
[2017-07-24] MEDS ORDERED: PIPERACILLIN/TAZOBACTAM 3.375 GM VIAL IVPB ONE (17:56)
[2017-07-24] MEDS ORDERED: DEXTROSE 5%-WATER - 50 ML IVPB ONE (17:57)
[2017-07-24] MEDS: PIPERACILLIN/TAZOB 3.375 GM 3.375 GM in DEXTROSE 5%-WATER - 50 ML IVPB SCH (17:59)
--- NOTE | 2017-07-24 19:14 | CONS ---
DATE OF CONSULTATION: DATE OF DICTATION: 07/24/2017 INFECTIOUS DISEASE CONSULTATION HISTORY OF PRESENT ILLNESS: The patient is a 52-year-old male evaluated for recurrent intraabdominal abscess. The patient was recently hospitalized for 1 month in May of this year for an intraabdominal abscess. At that time, he had developed a large abscess in the left perinephric area extending towards the psoas area. It had spontaneously drained. Cultures were positive for multidrug-resistant organisms including MRSA and Acinetobacter. He received a course of IV antibiotic therapy and was discharged home to complete a course of oral therapy. Patient did well until Wednesday, July 19, 2017. He began to have worsening swelling of the left flank associated with skin redness, anorexia, generalized weakness, and malaise. Cultures were obtained. He was empirically treated with vancomycin and Zosyn. He is now status post percutaneous drainage of this collection by Interventional Radiology. The fluid obtained is light brown and grossly purulent. 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 He was offered transfer to a tertiary care center for definitive urologic surgery in the past. However, had refused. PAST MEDICAL HISTORY: Positive for longstanding paraplegia, neurogenic bladder, staghorn calculi, bilateral obstructive uropathy, status post bilateral ureteral stents, Hirschsprung disease, sacral decubitus ulcer. ALLERGIES: TO POLYMYXIN. MEDICATIONS: At the present time include, Zosyn, vancomycin, heparin, Benadryl. SOCIAL HISTORY: Lives at home, is cared for by family members, has had multiple recent hospitalizations. Positive history of tobacco use. SYSTEMS REVIEW: Neurologic: Positive for longstanding paraplegia. Cardiac: Negative chest pain or palpitations. Respiratory: Positive for chronic lung disease. Gastrointestinal: Positive for chronic constipation and fecal impaction. Genitourinary: As per HPI. LABORATORY DATA: White count 10.7, hematocrit 34.0, platelet count 296. BUN 21, Creatinine 0.7. Urinalysis 1367 white cells. Cultures are pending. CAT scan of the abdomen and pelvis shows left flank thickening consistent with cellulitis. A large multiloculated subcutaneous collection in the left flank extending to the area of the left retroperitoneum and pelvis. Chronic osteomyelitis of the L5 vertebral body similar in appearance to a CAT scan from April. Chronic osteomyelitis of the posterior iliac bones and sacrum. Massive impacted stool within the sigmoid colon and proximal rectum. Bilateral ureteral stents. [id number] bilateral hydronephrosis similar to previous CAT scans. PHYSICAL EXAMINATION: General: He is chronically ill appearing, cachectic. Vital Signs: Temperature 98.5, blood pressure 134/79, pulse 76 regular, respirations 22 per minute. HEENT: Sclerae anicteric. Heart: Sounds S1, S2. Lungs: Clear. Abdomen: Soft, distended. No tenderness elicited. Examination of the left flank, there is an area of fluctuant swelling present in the area of the left iliac crest. The overlying skin is erythematous and warm. There was a percutaneous drain in place. Extremities: Negative for edema. Positive for bilateral footdrop. IMPRESSION: 1. 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 2. Possible sepsis secondary to abscess. 3. History of multidrug-resistant pathogens. 4. Obstructive uropathy. Pending sepsis workup, empiric antibiotic coverage with vancomycin and Zosyn. Continue percutaneous drainage of intraabdominal fluid collection. Surgical and Urology followups. Will follow. Thank you for the kind referral. SHILA CARROLL M.D. 1 [id number]
[2017-07-24] MEDS: VANCOMYCIN 1,000 MG in DEXTROSE 5%-WATER - 250 ML IVPB SCH (20:26)
[2017-07-24] MEDS: SENNOSIDES 8.6MG TABLET (FP) PO SCH (22:21)
--- NOTE | 2017-07-24 22:24 | PN ---
Progress Note, Physician Chief Complaint: Left hip abscess History of Present Illness: NAD Multiple pressure ulcers, to be cleaned with betadine and covered with abd pads. 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 - Current Medication List Current Medications: Active Medications Bisacodyl (Dulcolax -) 10 mg PO DAILY [facility] Last Admin: 07/24/17 16:25 Dose: Not Given Diphenhydramine HCl (Benadryl -) 50 mg PO HS PRN PRN Reason: INSOMNIA Heparin Sodium (Porcine) (Heparin -) 5,000 unit SQ TID [facility] Last Admin: 07/24/17 14:39 Dose: Not Given Vancomycin HCl 1,000 mg/ (Dextrose) 250 mls @ 166.667 mls/hr IVPB BID@0600, 1800 GISEL PRN Reason: Protocol Last Admin: 07/24/17 20:26 Dose: 166.667 mls/hr Piperacillin Sod/Tazobactam (Sod 3.375 gm/ Dextrose) 50 mls @ 100 mls/hr IVPB Q8H-IV GISEL PRN Reason: Protocol Last Admin: 07/24/17 17:59 Dose: 100 mls/hr Magnesium Hydroxide (Milk Of Magnesia -) 30 ml PO TID [facility] Last Admin: 07/24/17 16:25 Dose: Not Given Mineral Oil (Fleet Mineral Oil Rectal Enema -) 133 ml RC DAILY PRN PRN Reason: CONSTIPATION Non-Formulary Medication (Minocycline Hcl [Minocycline Hcl]) 100 mg PO BID [facility] Polyethylene Glycol (Miralax (For Daily Use) -) 17 gm PO BID [facility] Last Admin: 07/24/17 16:25 Dose: Not Given Senna (Senna -) 2 tab PO HS [facility] - Objective Vital Signs: Vital Signs Temperature 98.5 F 07/24/17 09:00 Pulse Rate 76 07/24/17 15:39 Respiratory Rate 22 07/24/17 15:39 Blood Pressure 134/79 07/24/17 15:39 O2 Sat by Pulse Oximetry (%) 100 07/24/17 15:39 Constitutional: Yes: Well Nourished, No Distress, Calm Gastrointestinal: Yes: Hypoactive Bowel Sounds Genitourinary: Yes: Hull Present (chronic) Musculoskeletal: Yes: Other (paraplegia) Edema: No Peripheral Pulses WNL: Yes Wound/Incision: Yes: Well Approximated, Draining Neurological: Yes: Alert, Oriented Psychiatric: Yes: Alert, Oriented Labs: CBC, BMP 07/24/17 05:35 07/24/17 05:35 INR, PTT INR 1.34 (0.82-1.09) H 07/23/17 16:10 Problem List - Problems (1) Retroperitoneal fluid collection Assessment/Plan: -IR consult -YA drain -fluid sent for micro and creatinine -chronic due to urinary leak from kidneys because of renal stones and stents Code(s): R18.8 - OTHER ASCITES (2) Bilateral nephrolithiasis Assessment/Plan: chronic staghorn calculus, followed by urology Has refused percutaneous nephrolithotomy that needs to be done at tertiary care center Code(s): N20.0 - CALCULUS OF KIDNEY (3) Chronic indwelling Hull catheter Assessment/Plan: / to neurogenic bladder -urology consult-to change hull catheter -UA/UC Code(s): Z92.89 - PERSONAL HISTORY OF OTHER MEDICAL TREATMENT (4) Constipation due to neurogenic bowel Assessment/Plan: -chronic -laxatives -daily disimpaction by nursing Code(s): K59.00 - CONSTIPATION, UNSPECIFIED (5) Decubitus ulcer Assessment/Plan: sees Dr Verdugo outpatient -clean with saline and betadine -abd dressing Code(s): L89.90 - PRESSURE ULCER OF UNSPECIFIED SITE, UNSPECIFIED STAGE Qualifiers: Pressure ulcer location: contiguous region involving back and buttock Pressure ulcer stage: unspecified pressure ulcer stage Laterality: unspecified laterality Qualified Code(s): L89.40 - Pressure ulcer of contiguous site of back, buttock and hip, unspecified stage (6) Effusion of hip Code(s): M25.459 - EFFUSION, UNSPECIFIED HIP Qualifiers: Laterality: left Qualified Code(s): M25.452 - Effusion, left hip (7) Hirschsprung disease of rectosigmoid region Code(s): Q43.1 - HIRSCHSPRUNG'S DISEASE (8) Leukocytosis Assessment/Plan: source hip effusion -BC/UC and abscess drain culture pending -ID consult -IV abx -monitor labs Code(s): D72.829 - ELEVATED WHITE BLOOD CELL COUNT, UNSPECIFIED Assessment/Plan see problem list DVT prophylaxis
[2017-07-25] MEDS ORDERED: PIPERACILLIN/TAZOBACTAM 3.375 GM VIAL IVPB ONE ×3 (01:55→17:14)
[2017-07-25] MEDS ORDERED: DEXTROSE 5%-WATER - 50 ML IVPB ONE ×3 (01:56→17:15)
[2017-07-25] MEDS: PIPERACILLIN/TAZOB 3.375 GM 3.375 GM in DEXTROSE 5%-WATER - 50 ML IVPB SCH ×3 (02:33→17:54)
[2017-07-25] MEDS: HEPARIN NA (PORCINE) 5,000 UNITS/ML 1ML VIAL SQ SCH ×3 (06:47→21:44)
[2017-07-25] MEDS: MAGNESIUM HYDROX 2400MG/30ML ORAL SUSPENSION 30 ML CUP PO SCH ×3 (06:47→21:44)
[2017-07-25] MEDS: VANCOMYCIN 1,000 MG in DEXTROSE 5%-WATER - 250 ML IVPB SCH ×2 (06:47→18:31)
[2017-07-25 08:15] LABS: BASO % 1.1 % (0-2.0); EOS % 2.9 % (0-4.5); HEMATOCRIT 32.8 % (35.4-49); HEMOGLOBIN 10.9 GM/dL (11.7-16.9); LYMPH % 10.5 % (8-40); MCH 27.2 pg (25.7-33.7); MCHC 33.1 g/dl (32.0-35.9); MEAN PLT VOLUME 7.1 fl (7.5-11.1); MONO % 6.7 % (3.8-10.2); NEUT % 78.8 % (42.8-82.8); PLATELET COUNT 288 K/MM3 (134-434); RDW 17.1 % (11.9-15.9); WHITE BLOOD COUNT 7.4 K/mm3 (4.0-10.0)
[2017-07-25 09:05] LABS: ALBUMIN 2.1 g/dl (3.4-5.0); ANION GAP 7 (8-16); BLOOD UREA NITROGEN 17 mg/dL (7-18); CALCIUM 8.1 mg/dL (8.5-10.1); CHLORIDE 102 mmol/L (98-107); CO2 28 mmol/L (21-32); GLUCOSE,RANDOM 118 mg/dL (74-106); POTASSIUM 4.4 mmol/L (3.5-5.1); SODIUM 137 mmol/L (136-145)
[2017-07-25 09:09] LABS: ALK PHOS 93 U/L (45-117); BILIRUBIN,TOTAL 0.4 mg/dL (0.2-1.0); CREATININE 0.8 mg/dL (0.7-1.3); SGOT/AST 16 U/L (15-37); SGPT/ALT 18 U/L (12-78); TOT PROT 6.7 g/dl (6.4-8.2)
--- NOTE | 2017-07-25 10:29 | PN ---
Progress Note (short form) - Note Progress Note: no complaints chills for a week at home IR drainage yesterday- still with cloudy drainage Vital Signs Period Temp Pulse Resp BP Sys/Vu Pulse Ox Last 24 Hr 97.8 F-97.9 F 72-84 19-24 100-134/63-83 95-100 cor-rrr lungs clear abd firm, nt ext no edema +YA with cloudy serous fluid CBC, BMP 07/25/17 08:08 07/25/17 08:08 Microbiology 07/23/17 16:10 Blood - Peripheral Venous Blood Culture - Preliminary Staphylococcus Coagulase Neg 07/23/17 16:10 Blood - Peripheral Venous Blood Culture - Preliminary NO GROWTH OBTAINED AFTER 24 HOURS, INCUBATION TO CONTINUE FOR 4 DAYS. a/p s/p drainage of flank fluid collection continue vanco/zosyn f/u cultures check vanco trough before fourth dose fecal impaction history of MDR organisms- continue contact isolation
[2017-07-25] MEDS: BISACODYL 5 MG TABLET.DR (FP) PO SCH (12:30)
[2017-07-25] MEDS: POLYETHYLENE GLYCOL 3350 119 GM BTL PO SCH ×2 (12:31→21:44)
--- NOTE | 2017-07-25 13:08 | PN ---
Progress Note, Physician Chief Complaint: Left hip abscess History of Present Illness: NAD Multiple pressure ulcers, to be cleaned with betadine and covered with abd pads. Indwelling hull catheter, adjusted by hospitalist [employer] due to balloon positioning at prostatic urethra YA left hip- drained pus initially now cloudy micro and Cr pending - Current Medication List Current Medications: Active Medications Bisacodyl (Dulcolax -) 10 mg PO DAILY [facility] Last Admin: 07/25/17 12:30 Dose: 10 mg Diphenhydramine HCl (Benadryl -) 50 mg PO HS PRN PRN Reason: INSOMNIA Heparin Sodium (Porcine) (Heparin -) 5,000 unit SQ TID [facility] Last Admin: 07/25/17 06:47 Dose: Not Given Vancomycin HCl 1,000 mg/ (Dextrose) 250 mls @ 166.667 mls/hr IVPB BID@0600, 1800 GISEL PRN Reason: Protocol Last Admin: 07/25/17 06:47 Dose: 166.667 mls/hr Piperacillin Sod/Tazobactam (Sod 3.375 gm/ Dextrose) 50 mls @ 100 mls/hr IVPB Q8H-IV GISEL PRN Reason: Protocol Last Admin: 07/25/17 12:46 Dose: 100 mls/hr Magnesium Hydroxide (Milk Of Magnesia -) 30 ml PO TID [facility] Last Admin: 07/25/17 06:47 Dose: 30 ml Mineral Oil (Fleet Mineral Oil Rectal Enema -) 133 ml RC DAILY PRN PRN Reason: CONSTIPATION Non-Formulary Medication (Minocycline Hcl [Minocycline Hcl]) 100 mg PO BID [facility] Polyethylene Glycol (Miralax (For Daily Use) -) 17 gm PO BID [facility] Last Admin: 07/25/17 12:31 Dose: Not Given Senna (Senna -) 2 tab PO HS [facility] Last Admin: 07/24/17 22:21 Dose: 2 tab - Objective Vital Signs: Vital Signs Temperature 98.0 F 07/25/17 10:00 Pulse Rate 62 07/25/17 10:00 Respiratory Rate 18 07/25/17 10:00 Blood Pressure 128/71 07/25/17 10:00 O2 Sat by Pulse Oximetry (%) 95 07/25/17 09:00 Constitutional: Yes: Well Nourished, No Distress, Calm Cardiovascular: Yes: Regular Rate and Rhythm Respiratory: Yes: Regular Gastrointestinal: Yes: Hypoactive Bowel Sounds Wound/Incision: Yes: Dressing Dry and Intact Neurological: Yes: Alert, Oriented Psychiatric: Yes: Alert, Oriented Labs: CBC, BMP 07/25/17 08:08 07/25/17 08:08 INR, PTT INR 1.34 (0.82-1.09) H 07/23/17 16:10 Problem List - Problems (1) Retroperitoneal fluid collection Assessment/Plan: -IR consult -YA drain -fluid sent for micro and creatinine-pending -chronic due to urinary leak from kidneys because of renal stones and stents Code(s): R18.8 - OTHER ASCITES (2) Bilateral nephrolithiasis Assessment/Plan: chronic staghorn calculus, followed by urology Has refused percutaneous nephrolithotomy that needs to be done at tertiary care center Code(s): N20.0 - CALCULUS OF KIDNEY (3) Chronic indwelling Hlul catheter Assessment/Plan: 04/17 to neurogenic bladder -Awaiting urology consult-to change hull catheter- -UA/UC Code(s): Z92.89 - PERSONAL HISTORY OF OTHER MEDICAL TREATMENT (4) Constipation due to neurogenic bowel Assessment/Plan: -chronic -laxatives -daily disimpaction by nursing- Nursing tried today, no stool present in the rectum Code(s): K59.00 - CONSTIPATION, UNSPECIFIED (5) Decubitus ulcer Assessment/Plan: sees Dr Verdugo outpatient -clean with saline and betadine -abd dressing Code(s): L89.90 - PRESSURE ULCER OF UNSPECIFIED SITE, UNSPECIFIED STAGE Qualifiers: Pressure ulcer location: contiguous region involving back and buttock Pressure ulcer stage: unspecified pressure ulcer stage Laterality: unspecified laterality Qualified Code(s): L89.40 - Pressure ulcer of contiguous site of back, buttock and hip, unspecified stage (6) Effusion of hip Code(s): M25.459 - EFFUSION, UNSPECIFIED HIP Qualifiers: Laterality: left Qualified Code(s): M25.452 - Effusion, left hip (7) Hirschsprung disease of rectosigmoid region Code(s): Q43.1 - HIRSCHSPRUNG'S DISEASE (8) Leukocytosis Assessment/Plan: -improved -source hip effusion -BC/UC and abscess drain culture pending -ID consult -IV abx -monitor labs Code(s): D72.829 - ELEVATED WHITE BLOOD CELL COUNT, UNSPECIFIED Assessment/Plan see problem list DVT prophylaxis
[2017-07-25] MEDS: SENNOSIDES 8.6MG TABLET (FP) PO SCH (21:44)
[2017-07-26] MEDS ORDERED: PIPERACILLIN/TAZOBACTAM 3.375 GM VIAL IVPB ONE ×3 (01:06→16:42)
[2017-07-26] MEDS ORDERED: DEXTROSE 5%-WATER - 50 ML IVPB ONE ×3 (01:06→16:42)
[2017-07-26] MEDS: PIPERACILLIN/TAZOB 3.375 GM 3.375 GM in DEXTROSE 5%-WATER - 50 ML IVPB SCH ×3 (01:34→17:40)
[2017-07-26] MEDS: HEPARIN NA (PORCINE) 5,000 UNITS/ML 1ML VIAL SQ SCH ×3 (06:54→22:35)
[2017-07-26] MEDS ORDERED: PT OWN MED DRAWER 7, Y5N ONE ×2 (06:55→07:54)
[2017-07-26] MEDS: MAGNESIUM HYDROX 2400MG/30ML ORAL SUSPENSION 30 ML CUP PO SCH ×3 (06:56→22:37)
[2017-07-26] MEDS: VANCOMYCIN 1,000 MG in DEXTROSE 5%-WATER - 250 ML IVPB SCH (06:56)
[2017-07-26] MEDS: POLYETHYLENE GLYCOL 3350 119 GM BTL PO SCH ×2 (10:08→22:37)
[2017-07-26] MEDS: BISACODYL 5 MG TABLET.DR (FP) PO SCH (10:08)
--- NOTE | 2017-07-26 12:43 | PN ---
Progress Note, Physician Chief Complaint: Left hip abscess History of Present Illness: NAD Multiple pressure ulcers, to be cleaned with betadine and covered with abd pads. Indwelling hull catheter, adjusted by hospitalist [employer] due to balloon positioning at prostatic urethra YA left hip- drained pus initially now cloudy micro and Cr pending Hull leaking- to be changed by Urology- awaiting consult - Current Medication List Current Medications: Active Medications Bisacodyl (Dulcolax -) 10 mg PO DAILY [facility] Last Admin: 07/26/17 10:08 Dose: 10 mg Diphenhydramine HCl (Benadryl -) 50 mg PO HS PRN PRN Reason: INSOMNIA Heparin Sodium (Porcine) (Heparin -) 5,000 unit SQ TID [facility] Last Admin: 07/26/17 06:54 Dose: Not Given Vancomycin HCl 1,000 mg/ (Dextrose) 250 mls @ 166.667 mls/hr IVPB BID@0600, 1800 GISEL PRN Reason: Protocol Last Admin: 07/26/17 06:56 Dose: 166.667 mls/hr Piperacillin Sod/Tazobactam (Sod 3.375 gm/ Dextrose) 50 mls @ 100 mls/hr IVPB Q8H-IV GISEL PRN Reason: Protocol Last Admin: 07/26/17 10:08 Dose: 100 mls/hr Magnesium Hydroxide (Milk Of Magnesia -) 30 ml PO TID [facility] Last Admin: 07/26/17 06:56 Dose: 30 ml Mineral Oil (Fleet Mineral Oil Rectal Enema -) 133 ml RC DAILY PRN PRN Reason: CONSTIPATION Polyethylene Glycol (Miralax (For Daily Use) -) 17 gm PO BID [facility] Last Admin: 07/26/17 10:08 Dose: Not Given Senna (Senna -) 2 tab PO HS [facility] Last Admin: 07/25/17 21:44 Dose: 2 tab - Objective Vital Signs: Vital Signs Temperature 98.3 F 07/26/17 10:00 Pulse Rate 70 07/26/17 10:00 Respiratory Rate 20 07/26/17 10:00 Blood Pressure 124/67 07/26/17 10:00 O2 Sat by Pulse Oximetry (%) 97 07/25/17 21:00 Constitutional: Yes: Well Nourished, No Distress, Calm Cardiovascular: Yes: Regular Rate and Rhythm Respiratory: Yes: Regular Gastrointestinal: Yes: Hypoactive Bowel Sounds Wound/Incision: Yes: Dressing Dry and Intact Neurological: Yes: Alert, Oriented Psychiatric: Yes: Alert, Oriented Labs: CBC, BMP 07/25/17 08:08 07/25/17 08:08 INR, PTT INR 1.34 (0.82-1.09) H 07/23/17 16:10 Problem List - Problems (1) Retroperitoneal fluid collection Assessment/Plan: -IR consult -YA drain -fluid sent for micro and creatinine-pending -chronic due to urinary leak from kidneys because of renal stones and stents Code(s): R18.8 - OTHER ASCITES (2) Bilateral nephrolithiasis Assessment/Plan: chronic staghorn calculus, followed by urology Has refused percutaneous nephrolithotomy that needs to be done at tertiary care center Code(s): N20.0 - CALCULUS OF KIDNEY (3) Chronic indwelling Hull catheter Assessment/Plan: 2/2 to neurogenic bladder -Awaiting urology consult-to change hull catheter -UA/UC: Microbiology 07/23/17 15:30 Urine Culture - Preliminary Urine - Urine Hull Klebsiella Pneumoniae - Esbl 07/23/17 16:10 Blood Culture - Final Blood - Peripheral Venous Staphylococcus Epidermidis 07/24/17 15:30 Gram Stain - Final Abscess Body Fluid Culture - Preliminary Lactose Fermenting Neg Bacilli Lactose Fermenting Neg Bacilli#2 Group D Strep Or Entero Coccus Alpha Hemolytic Streptococcus 07/23/17 16:10 Blood Culture - Preliminary Blood - Peripheral Venous NO GROWTH OBTAINED AFTER 48 HOURS, INCUBATION TO CONTINUE FOR 3 DAYS. Code(s): Z92.89 - PERSONAL HISTORY OF OTHER MEDICAL TREATMENT (4) Constipation due to neurogenic bowel Assessment/Plan: -chronic -laxatives -daily disimpaction by nursing Code(s): K59.00 - CONSTIPATION, UNSPECIFIED (5) Decubitus ulcer Assessment/Plan: seen by Dr Verdugo -clean with saline and betadine -abd dressing Code(s): L89.90 - PRESSURE ULCER OF UNSPECIFIED SITE, UNSPECIFIED STAGE Qualifiers: Pressure ulcer location: contiguous region involving back and buttock Pressure ulcer stage: unspecified pressure ulcer stage Laterality: unspecified laterality Qualified Code(s): L89.40 - Pressure ulcer of contiguous site of back, buttock and hip, unspecified stage (6) Effusion of hip Code(s): M25.459 - EFFUSION, UNSPECIFIED HIP Qualifiers: Laterality: left Qualified Code(s): M25.452 - Effusion, left hip (7) Hirschsprung disease of rectosigmoid region Code(s): Q43.1 - HIRSCHSPRUNG'S DISEASE (8) Leukocytosis Assessment/Plan: -improved -source hip effusion -BC/UC and abscess drain culture: Microbiology 07/23/17 15:30 Urine - Urine Hull Urine Culture - Preliminary Klebsiella Pneumoniae - Esbl 07/23/17 16:10 Blood - Peripheral Venous Blood Culture - Final Staphylococcus Epidermidis 07/24/17 15:30 Abscess Gram Stain - Final 07/24/17 15:30 Abscess Body Fluid Culture - Preliminary Lactose Fermenting Neg Bacilli Lactose Fermenting Neg Bacilli#2 Group D Strep Or Entero Coccus Alpha Hemolytic Streptococcus 07/23/17 16:10 Blood - Peripheral Venous Blood Culture - Preliminary NO GROWTH OBTAINED AFTER 48 HOURS, INCUBATION TO CONTINUE FOR 3 DAYS. -ID consult -IV abx -monitor labs Code(s): D72.829 - ELEVATED WHITE BLOOD CELL COUNT, UNSPECIFIED Assessment/Plan see problem list DVT prophylaxis
--- NOTE | 2017-07-26 12:55 | PN ---
Progress Note (short form) - Note Progress Note: FU FOR Multiple decubitii, present re-admission for chronic infection :source Kidney Decubitii: Clean , granulating, no odor Microbiology 07/24/17 15:30 Abscess Gram Stain - Final 07/23/17 16:10 Blood - Peripheral Venous Blood Culture - Final Staphylococcus Epidermidis 07/24/17 15:30 Abscess Body Fluid Culture - Preliminary Lactose Fermenting Neg Bacilli Lactose Fermenting Neg Bacilli#2 Group D Strep Or Entero Coccus Alpha Hemolytic Streptococcus 07/23/17 15:30 Urine - Urine Pelaez Urine Culture - Preliminary Klebsiella Pneumoniae - Esbl Selected Entries 07/25/17 07/26/17 18:14 10:00 Temperature 98.6 F Blood Pressure 114/60 124/67 Laboratory Tests 07/25/17 07/25/17 08:08 08:08 WBC 7.4 D Hgb 10.9 L Hct 32.8 L RDW 17.1 H MPV 7.1 L D Random Glucose 118 H D Calcium 8.1 L Plan : Continue present wound care ' Diluted Saline/Betadine 3:/1 dilution dressing daily and post contamination
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
[2017-07-26] MEDS: SENNOSIDES 8.6MG TABLET (FP) PO SCH (22:37)
[2017-07-27] MEDS ORDERED: DEXTROSE 5%-WATER - 50 ML IVPB ONE ×2 (01:06→09:48)
[2017-07-27] MEDS ORDERED: PIPERACILLIN/TAZOBACTAM 3.375 GM VIAL IVPB ONE ×2 (01:06→09:48)
[2017-07-27] MEDS: PIPERACILLIN/TAZOB 3.375 GM 3.375 GM in DEXTROSE 5%-WATER - 50 ML IVPB SCH ×2 (01:14→10:53)
[2017-07-27] MEDS: HEPARIN NA (PORCINE) 5,000 UNITS/ML 1ML VIAL SQ SCH ×3 (05:54→22:34)
--- NOTE | 2017-07-27 10:05 | PN ---
Progress Note, Physician - Current Medication List Current Medications: Active Medications Bisacodyl (Dulcolax -) 10 mg PO DAILY [facility] Last Admin: 07/26/17 10:08 Dose: 10 mg Diphenhydramine HCl (Benadryl -) 50 mg PO HS PRN PRN Reason: INSOMNIA Heparin Sodium (Porcine) (Heparin -) 5,000 unit SQ TID [facility] Last Admin: 07/27/17 05:54 Dose: Not Given Piperacillin Sod/Tazobactam (Sod 3.375 gm/ Dextrose) 50 mls @ 100 mls/hr IVPB Q8H-IV GISEL PRN Reason: Protocol Last Admin: 07/27/17 01:14 Dose: 100 mls/hr Magnesium Hydroxide (Milk Of Magnesia -) 30 ml PO TID [facility] Last Admin: 07/26/17 22:37 Dose: 30 ml Mineral Oil (Fleet Mineral Oil Rectal Enema -) 133 ml RC DAILY PRN PRN Reason: CONSTIPATION Polyethylene Glycol (Miralax (For Daily Use) -) 17 gm PO BID [facility] Last Admin: 07/26/17 22:37 Dose: Not Given Senna (Senna -) 2 tab PO HS [facility] Last Admin: 07/26/17 22:37 Dose: 2 tab - Objective Vital Signs: Vital Signs Temperature 97.5 F L 07/27/17 06:00 Pulse Rate 58 L 07/27/17 06:00 Respiratory Rate 20 07/26/17 22:00 Blood Pressure 120/70 07/27/17 06:00 O2 Sat by Pulse Oximetry (%) 93 L 07/26/17 21:00 Cardiovascular: Yes: Regular Rate and Rhythm Respiratory: Yes: Regular, CTA Bilaterally Gastrointestinal: Yes: Normal Bowel Sounds, Soft Wound/Incision: Yes: Other (drain in place) Labs: CBC, BMP 07/25/17 08:08 07/25/17 08:08 INR, PTT INR 1.34 (0.82-1.09) H 07/23/17 16:10 Assessment/Plan - Problems (1) Retroperitoneal fluid collection Assessment/Plan: -IR consult -YA drain -fluid sent for micro and creatinine-pending -chronic due to urinary leak from kidneys because of renal stones and stents Code(s): R18.8 - OTHER ASCITES (2) Bilateral nephrolithiasis Assessment/Plan: chronic staghorn calculus, followed by urology Has refused percutaneous nephrolithotomy that needs to be done at tertiary care center Code(s): N20.0 - CALCULUS OF KIDNEY (3) Chronic indwelling Hull catheter Assessment/Plan: 2/2 to neurogenic bladder -Awaiting urology consult-to change hull catheter -UA/UC: Microbiology 07/23/17 15:30 Urine Culture - Preliminary Urine - Urine Hull Klebsiella Pneumoniae - Esbl 07/23/17 16:10 Blood Culture - Final Blood - Peripheral Venous Staphylococcus Epidermidis 07/24/17 15:30 Gram Stain - Final Abscess Body Fluid Culture - Preliminary Lactose Fermenting Neg Bacilli Lactose Fermenting Neg Bacilli#2 Group D Strep Or Entero Coccus Alpha Hemolytic Streptococcus 07/23/17 16:10 Blood Culture - Preliminary Blood - Peripheral Venous NO GROWTH OBTAINED AFTER 48 HOURS, INCUBATION TO CONTINUE FOR 3 DAYS. Code(s): Z92.89 - PERSONAL HISTORY OF OTHER MEDICAL TREATMENT (4) Constipation due to neurogenic bowel Assessment/Plan: -chronic -laxatives -daily disimpaction by nursing Code(s): K59.00 - CONSTIPATION, UNSPECIFIED (5) Decubitus ulcer Assessment/Plan: seen by Dr Verdugo -clean with saline and betadine -abd dressing Code(s): L89.90 - PRESSURE ULCER OF UNSPECIFIED SITE, UNSPECIFIED STAGE Qualifiers: Pressure ulcer location: contiguous region involving back and buttock Pressure ulcer stage: unspecified pressure ulcer stage Laterality: unspecified laterality Qualified Code(s): L89.40 - Pressure ulcer of contiguous site of back, buttock and hip, unspecified stage (6) Effusion of hip Code(s): M25.459 - EFFUSION, UNSPECIFIED HIP Qualifiers: Laterality: left Qualified Code(s): M25.452 - Effusion, left hip (7) Hirschsprung disease of rectosigmoid region Code(s): Q43.1 - HIRSCHSPRUNG'S DISEASE (8) Leukocytosis Assessment/Plan: -improved -source hip effusion -BC/UC and abscess drain culture: Microbiology 07/23/17 15:30 Urine - Urine Hull Urine Culture - Preliminary Klebsiella Pneumoniae - Esbl 07/23/17 16:10 Blood - Peripheral Venous Blood Culture - Final Staphylococcus Epidermidis 07/24/17 15:30 Abscess Gram Stain - Final 07/24/17 15:30 Abscess Body Fluid Culture - Preliminary Lactose Fermenting Neg Bacilli Lactose Fermenting Neg Bacilli#2 Group D Strep Or Entero Coccus Alpha Hemolytic Streptococcus 07/23/17 16:10 Blood - Peripheral Venous Blood Culture - Preliminary NO GROWTH OBTAINED AFTER 48 HOURS, INCUBATION TO CONTINUE FOR 3 DAYS. -ID consult -IV abx -monitor labs Code(s): D72.829 - ELEVATED WHITE BLOOD CELL COUNT, UNSPECIFIED
[2017-07-27] MEDS: MAGNESIUM HYDROX 2400MG/30ML ORAL SUSPENSION 30 ML CUP PO SCH ×3 (10:53→22:27)
[2017-07-27] MEDS: BISACODYL 5 MG TABLET.DR (FP) PO SCH (10:53)
[2017-07-27] MEDS: POLYETHYLENE GLYCOL 3350 119 GM BTL PO SCH ×3 (10:54→22:34)
--- NOTE | 2017-07-27 13:15 | PN ---
Progress Note, Physician History of Present Illness: Awake, alert No c/o flank pain No fever/ chills WBC improved WNL Cultures ESBL, VRE - Current Medication List Current Medications: Active Medications Bisacodyl (Dulcolax -) 10 mg PO DAILY [facility] Last Admin: 07/27/17 10:53 Dose: 10 mg Diphenhydramine HCl (Benadryl -) 50 mg PO HS PRN PRN Reason: INSOMNIA Heparin Sodium (Porcine) (Heparin -) 5,000 unit SQ TID [facility] Last Admin: 07/27/17 05:54 Dose: Not Given Piperacillin Sod/Tazobactam (Sod 3.375 gm/ Dextrose) 50 mls @ 100 mls/hr IVPB Q8H-IV GISEL PRN Reason: Protocol Last Admin: 07/27/17 10:53 Dose: 100 mls/hr Magnesium Hydroxide (Milk Of Magnesia -) 30 ml PO TID [facility] Last Admin: 07/27/17 10:53 Dose: 30 ml Mineral Oil (Fleet Mineral Oil Rectal Enema -) 133 ml RC DAILY PRN PRN Reason: CONSTIPATION Polyethylene Glycol (Miralax (For Daily Use) -) 17 gm PO BID [facility] Last Admin: 07/27/17 12:28 Dose: Not Given Senna (Senna -) 2 tab PO HS [facility] Last Admin: 07/26/17 22:37 Dose: 2 tab - Objective Vital Signs: Vital Signs Temperature 97.6 F 07/27/17 10:00 Pulse Rate 59 L 07/27/17 10:00 Respiratory Rate 19 07/27/17 10:00 Blood Pressure 125/68 07/27/17 10:00 O2 Sat by Pulse Oximetry (%) 93 L 07/27/17 09:00 Constitutional: Yes: No Distress Cardiovascular: Yes: Regular Rate and Rhythm, S1, S2 Respiratory: Yes: CTA Bilaterally Gastrointestinal: Yes: Normal Bowel Sounds, Soft. No: Tenderness Edema: No Labs: CBC, BMP 07/25/17 08:08 07/25/17 08:08 INR, PTT INR 1.34 (0.82-1.09) H 07/23/17 16:10 Assessment/Plan Recurrent intra-abdominal abscess + wound c/s ESBL, VRE Obstructive uropathy s/p ureteral stents Nephrolithiasis paraplegia Substitute meropenem/ zyvox Contact precautions
[2017-07-27] MEDS ORDERED: PICC LINE 8 ML FLUSH PROTOCOL IVPUSH PRN (13:18)
[2017-07-27] MEDS: LINEZOLID 600 MG PREMIX BAG 600 MG/300 ML BAG IVPB SCH (14:03)
[2017-07-27] MEDS: MEROPENEM 500 MG in DEXTROSE 5%-WATER 100 ML IVPB SCH ×2 (15:44→17:33)
[2017-07-27] MEDS: SENNOSIDES 8.6MG TABLET (FP) PO SCH (22:34)
[2017-07-28] MEDS ORDERED: PT OWN MED DRAWER 7, Y5N ONE ×3 (01:00→18:01)
[2017-07-28] MEDS: MEROPENEM 500 MG in DEXTROSE 5%-WATER 100 ML IVPB SCH ×3 (01:05→17:16)
[2017-07-28] MEDS: LINEZOLID 600 MG PREMIX BAG 600 MG/300 ML BAG IVPB SCH ×2 (02:24→13:26)
[2017-07-28] MEDS: MAGNESIUM HYDROX 2400MG/30ML ORAL SUSPENSION 30 ML CUP PO SCH ×3 (05:59→21:18)
[2017-07-28] MEDS: HEPARIN NA (PORCINE) 5,000 UNITS/ML 1ML VIAL SQ SCH ×3 (05:59→21:15)
--- NOTE | 2017-07-28 09:19 | PN ---
Progress Note (short form) - Note Progress Note: Pt seen. Well known to me from before. 52 year old male with multiple medical problems being for infection. Has indwelling hull draining purulent urine. Pt is on antibiotics. Pt wants to wait for catheter change. Repositioned. Seems to be in good position The catheter will soon need to be changed. Will follow as necessary. Thank you
--- NOTE | 2017-07-28 12:18 | PN ---
Progress Note (short form) - Note Progress Note: Pt with left retroperitoneal abscess s/p IR drain and cellulitis of left hip/ flank Also with massive chronic fecal impaction. Nurse has been unable to digitalize into true rectal vault to reach stool. WBC normal, blood cultures and urine culture positive. On antibiotics per ID for multiresistant organisms. Hydronephrosis with Pelaez and ureteral stents overdue for change - pt states only Dr. Oro will change Pelaez. He manipulated it himself with advancement up to hub and additional water into balloon to resolve leakage around it. IR drain with 115ml recorded yesterday, 60 last shift/till am today. Vital Signs Period Temp Pulse Resp BP Sys/Vu Pulse Ox Last 24 Hr 97.2 F-99 F 61-64 16-20 102-130/64-79 94 PE: A&O mildly diaphoretic but warm and rivera through window abdomen firmly distended IR drain with serosang drainage in bulb, strips easily Pelaez with cloudy yellow urine Sacral/ischial areas dressed over multiple decubiti BUTCH with vault full of soft brown stool - spent 30 mins disimpacting moderate amount with little overall change in stool burden posterior left flank with much less erythema, cellulitis resolving over hip; small pale spot with single drop of serous drainage on skin at site of old spontaneous drainage - nothing expressible no new labs Abscess fluid creatinine was 3.3 - urine-based Microbiology 07/23/17 16:10 Blood Culture - Preliminary Blood - Peripheral Venous NO GROWTH OBTAINED AFTER 96 HOURS, INCUBATION TO CONTINUE FOR 1 DAYS. 07/24/17 15:30 Gram Stain - Final Abscess Body Fluid Culture - Final Klebsiella Pneumoniae - Esbl Vr Ec Faecalis Streptococcus Viridans Anaerobic Culture - Final NO ANAEROBES WERE ISOLATED 07/23/17 15:30 Urine Culture - Final Urine - Urine Pelaez Klebsiella Pneumoniae - Esbl Vr Ec Faecalis A/P: left retroperitoneal abscess s/p IR drain cellulitis of left hip/flank resolving - external portion of collection may be draining internally to IR drain - will need f/u imaging to reassess at some point bacteremia and + urine culture with MDROs on antibiotics per ID chronic fecal impaction - needs daily disimpaction continued by primary team in need of Pelaez change (last here in May) - seen by urology, but pt states only Dr. Royal Oro will do it in need of ureteral stent changes (last here in Nov), recommend doing while IR drain is in place to evacuate overflow into retroperitoneal space no acute general surgical issues Problem List - Problems (1) Retroperitoneal fluid collection Code(s): R18.8 - OTHER ASCITES (2) Cellulitis of flank Code(s): L03.312 - CELLULITIS OF BACK [ANY PART EXCEPT BUTTOCK] (3) Cellulitis of hip, left Code(s): L03.116 - CELLULITIS OF LEFT LOWER LIMB (4) Obstruction of urinary stent Code(s): T83.89XA - OTH COMPLICATION OF GENITOURINARY PROSTH DEV/GRFT, INIT Qualifiers: Encounter type: sequela Qualified Code(s): T83.89XS - Other specified complication of genitourinary prosthetic devices, implants and grafts, sequela (5) Bilateral hydronephrosis Code(s): N13.30 - UNSPECIFIED HYDRONEPHROSIS (6) Other specified disorders of kidney and ureter Code(s): N28.89 - OTHER SPECIFIED DISORDERS OF KIDNEY AND URETER (7) Chronic indwelling Pelaez catheter Code(s): Z92.89 - PERSONAL HISTORY OF OTHER MEDICAL TREATMENT (8) Fecal impaction of colon Code(s): K56.41 - FECAL IMPACTION (9) Other megacolon Code(s): K59.39 - OTHER MEGACOLON (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 Code(s): Q43.1 - HIRSCHSPRUNG'S DISEASE (11) Decubitus ulcer Code(s): L89.90 - PRESSURE ULCER OF UNSPECIFIED SITE, UNSPECIFIED STAGE Qualifiers: Pressure ulcer location: contiguous region involving back and buttock Pressure ulcer stage: unspecified pressure ulcer stage Laterality: unspecified laterality Qualified Code(s): L89.40 - Pressure ulcer of contiguous site of back, buttock and hip, unspecified stage (12) Neurogenic bladder Code(s): N31.9 - NEUROMUSCULAR DYSFUNCTION OF BLADDER, UNSPECIFIED (13) Paraplegia following spinal cord injury Code(s): G82.20 - PARAPLEGIA, UNSPECIFIED (14) Renal stones Code(s): N20.0 - CALCULUS OF KIDNEY (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
[2017-07-28] MEDS: POLYETHYLENE GLYCOL 3350 119 GM BTL PO SCH ×2 (13:29→21:15)
[2017-07-28] MEDS: BISACODYL 5 MG TABLET.DR (FP) PO SCH (13:29)
--- NOTE | 2017-07-28 13:39 | PN ---
Progress Note, Physician History of Present Illness: Lethargic today No c/o flank pain No fever/ chills WBC improved WNL Cultures ESBL, VRE - Current Medication List Current Medications: Active Medications Bisacodyl (Dulcolax -) 10 mg PO DAILY [facility] Last Admin: 07/27/17 10:53 Dose: 10 mg Diphenhydramine HCl (Benadryl -) 50 mg PO HS PRN PRN Reason: INSOMNIA Heparin Sodium (Porcine) (Heparin -) 5,000 unit SQ TID [facility] Last Admin: 07/28/17 05:59 Dose: Not Given IV Flush (Picc Line Flush) 8 ml IVPUSH PRN PRN PRN Reason: Protocol Meropenem 500 mg/ Dextrose 100 mls @ 200 mls/hr IVPB Q8H-IV [facility] Last Admin: 07/28/17 09:55 Dose: 200 mls/hr Linezolid (Zyvox 600 Mg Premix Bag (Restricted To Id) -) 600 mg in 300 mls @ 300 mls/hr IVPB Q12H [facility] PRN Reason: Protocol Last Admin: 07/28/17 02:24 Dose: 300 mls/hr Magnesium Hydroxide (Milk Of Magnesia -) 30 ml PO TID [facility] Last Admin: 07/28/17 05:59 Dose: 30 ml Mineral Oil (Fleet Mineral Oil Rectal Enema -) 133 ml RC DAILY PRN PRN Reason: CONSTIPATION Polyethylene Glycol (Miralax (For Daily Use) -) 17 gm PO BID [facility] Last Admin: 07/27/17 22:34 Dose: Not Given Senna (Senna -) 2 tab PO HS [facility] Last Admin: 07/27/17 22:34 Dose: Not Given - Objective Vital Signs: Vital Signs Temperature 97.8 F 07/28/17 10:00 Pulse Rate 62 07/28/17 10:00 Respiratory Rate 20 07/28/17 10:00 Blood Pressure 118/73 07/28/17 10:00 O2 Sat by Pulse Oximetry (%) 94 L 07/28/17 10:00 Constitutional: Yes: No Distress Eyes: Yes: Conjunctiva Clear Cardiovascular: Yes: Regular Rate and Rhythm, S1, S2 Respiratory: Yes: CTA Bilaterally Gastrointestinal: Yes: Normal Bowel Sounds, Soft, Other (Slightly distended). No: Tenderness Extremities: Yes: Other (foot drop) Labs: CBC, BMP 07/25/17 08:08 07/25/17 08:08 INR, PTT INR 1.34 (0.82-1.09) H 07/23/17 16:10 Assessment/Plan Recurrent intra-abdominal abscess + wound c/s ESBL, VRE Obstructive uropathy s/p ureteral stents Nephrolithiasis paraplegia Substitute meropenem/ zyvox Contact precautions
--- NOTE | 2017-07-28 13:58 | PN ---
Progress Note, Physician Chief Complaint: AWAKE ALERT NOTES AND EVENTS REVIEWED +APPETITE NEEDED SURGICAL DISIMPACTION OF STOOL PER RECTUM TODAY PINZON FOR URINE FUNCTIONING - Current Medication List Current Medications: Active Medications Bisacodyl (Dulcolax -) 10 mg PO DAILY [facility] Last Admin: 07/28/17 13:29 Dose: Not Given Diphenhydramine HCl (Benadryl -) 50 mg PO HS PRN PRN Reason: INSOMNIA Heparin Sodium (Porcine) (Heparin -) 5,000 unit SQ TID [facility] Last Admin: 07/28/17 13:29 Dose: Not Given IV Flush (Picc Line Flush) 8 ml IVPUSH PRN PRN PRN Reason: Protocol Meropenem 500 mg/ Dextrose 100 mls @ 200 mls/hr IVPB Q8H-IV [facility] Last Admin: 07/28/17 09:55 Dose: 200 mls/hr Linezolid (Zyvox 600 Mg Premix Bag (Restricted To Id) -) 600 mg in 300 mls @ 300 mls/hr IVPB Q12H [facility] PRN Reason: Protocol Last Admin: 07/28/17 13:26 Dose: 300 mls/hr Magnesium Hydroxide (Milk Of Magnesia -) 30 ml PO TID [facility] Last Admin: 07/28/17 13:29 Dose: 30 ml Mineral Oil (Fleet Mineral Oil Rectal Enema -) 133 ml RC DAILY PRN PRN Reason: CONSTIPATION Polyethylene Glycol (Miralax (For Daily Use) -) 17 gm PO BID [facility] Last Admin: 07/28/17 13:29 Dose: Not Given Senna (Senna -) 2 tab PO HS [facility] Last Admin: 07/27/17 22:34 Dose: Not Given - Objective Vital Signs: Vital Signs Temperature 97.8 F 07/28/17 10:00 Pulse Rate 62 07/28/17 10:00 Respiratory Rate 20 07/28/17 10:00 Blood Pressure 118/73 07/28/17 10:00 O2 Sat by Pulse Oximetry (%) 94 L 07/28/17 10:00 Constitutional: Yes: No Distress Eyes: Yes: WNL HENT: Yes: WNL Neck: Yes: WNL Cardiovascular: Yes: WNL Respiratory: Yes: WNL Gastrointestinal: Yes: Distention Genitourinary: Yes: Pinzon Present Musculoskeletal: Yes: Muscle Weakness Extremities: Yes: Deformity Edema: No Peripheral Pulses WNL: Yes Integumentary: Yes: Pressure Ulcer Wound/Incision: Yes: Dressing Dry and Intact, Unapproximated Neurological: Yes: Loss of Sensation, Pre-Existing Deficit, Other ...Motor Strength: LUE, LLE, RUE, RLE Psychiatric: Yes: Other Labs: CBC, BMP 07/25/17 08:08 07/25/17 08:08 INR, PTT INR 1.34 (0.82-1.09) H 07/23/17 16:10 Problem List - Problems (1) Abscess Code(s): L02.91 - CUTANEOUS ABSCESS, UNSPECIFIED (2) Bilateral hydronephrosis Code(s): N13.30 - UNSPECIFIED HYDRONEPHROSIS (3) Cellulitis of flank Code(s): L03.312 - CELLULITIS OF BACK [ANY PART EXCEPT BUTTOCK] (4) Obstruction of urinary stent Code(s): T83.89XA - OTH COMPLICATION OF GENITOURINARY PROSTH DEV/GRFT, INIT Qualifiers: Encounter type: sequela Qualified Code(s): T83.89XS - Other specified complication of genitourinary prosthetic devices, implants and grafts, sequela (5) Retroperitoneal fluid collection Code(s): R18.8 - OTHER ASCITES (6) Anemia Code(s): D64.9 - ANEMIA, UNSPECIFIED Qualifiers: Anemia type: iron deficiency Other causes of anemia: due to other specified chronic disease (7) Chronic indwelling Pinzon catheter Code(s): Z92.89 - PERSONAL HISTORY OF OTHER MEDICAL TREATMENT (8) Decubitus ulcer Code(s): L89.90 - PRESSURE ULCER OF UNSPECIFIED SITE, UNSPECIFIED STAGE Qualifiers: Pressure ulcer location: contiguous region involving back and buttock Pressure ulcer stage: unspecified pressure ulcer stage Laterality: unspecified laterality Qualified Code(s): L89.40 - Pressure ulcer of contiguous site of back, buttock and hip, unspecified stage (9) Fecal impaction in rectum Code(s): K56.41 - FECAL IMPACTION (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 Code(s): Z16.35 - RESISTANCE TO MULTIPLE ANTIMICROBIAL DRUGS (11) Megacolon Code(s): K59.3 - MEGACOLON, NOT ELSEWHERE CLASSIFIED * DO NOT USE * (12) Neurogenic bladder Code(s): N31.9 - NEUROMUSCULAR DYSFUNCTION OF BLADDER, UNSPECIFIED (13) Neurogenic bowel Code(s): K59.2 - NEUROGENIC BOWEL, NOT ELSEWHERE CLASSIFIED (14) Paraplegia following spinal cord injury Code(s): G82.20 - PARAPLEGIA, UNSPECIFIED (15) Weakness Code(s): R53.1 - WEAKNESS Assessment/Plan IV ABX PER ID DVT PROPHYLAXIS URINARY PINZON CONTINUE WOUND CARE PER SURGERY MIRALX/SENNA/MINERAL OIL/ENEMAS FOR CHRONIC CONSTIPATION
[2017-07-28] MEDS: SENNOSIDES 8.6MG TABLET (FP) PO SCH (21:18)
[2017-07-29] MEDS: LINEZOLID 600 MG PREMIX BAG 600 MG/300 ML BAG IVPB SCH ×2 (01:00→13:55)
[2017-07-29] MEDS ORDERED: PT OWN MED DRAWER 7, Y5N ONE ×3 (02:16→17:34)
[2017-07-29] MEDS: MEROPENEM 500 MG in DEXTROSE 5%-WATER 100 ML IVPB SCH ×3 (02:21→18:57)
[2017-07-29] MEDS: HEPARIN NA (PORCINE) 5,000 UNITS/ML 1ML VIAL SQ SCH ×3 (06:33→22:17)
[2017-07-29] MEDS: MAGNESIUM HYDROX 2400MG/30ML ORAL SUSPENSION 30 ML CUP PO SCH ×3 (06:33→22:17)
--- NOTE | 2017-07-29 10:12 | PN ---
Progress Note (short form) - Note Progress Note: 52 year old male followed for decades . Past history relevant for paraplegia , post reconstructive surgeries multiple flaps, ostectomies At present patient admitted for recurrent kidney infection with abscesses, UTI. Plastic surgery consult/follow up for following grade IV decubitii, haley hip, sacral and lower back decubtii All wounds are covered with fibrinous tissue, wounds have exposed bone. Patient is on daily wound care regime cleaning with mild antiseptic solution and application of moist dressing using antiseptic in diluted form (Betadine) Continue : Wound care daily. Patient is a chronic smoker, no plans for further surgeries till smoking quit and health condition improves including control of active infections
--- NOTE | 2017-07-29 10:42 | PN ---
Progress Note, Physician - Current Medication List Current Medications: Active Medications Bisacodyl (Dulcolax -) 10 mg PO DAILY [facility] Last Admin: 07/28/17 13:29 Dose: Not Given Diphenhydramine HCl (Benadryl -) 50 mg PO HS PRN PRN Reason: INSOMNIA Heparin Sodium (Porcine) (Heparin -) 5,000 unit SQ TID [facility] Last Admin: 07/29/17 06:33 Dose: Not Given IV Flush (Picc Line Flush) 8 ml IVPUSH PRN PRN PRN Reason: Protocol Meropenem 500 mg/ Dextrose 100 mls @ 200 mls/hr IVPB Q8H-IV [facility] Last Admin: 07/29/17 02:21 Dose: 200 mls/hr Linezolid (Zyvox 600 Mg Premix Bag (Restricted To Id) -) 600 mg in 300 mls @ 300 mls/hr IVPB Q12H [facility] PRN Reason: Protocol Last Admin: 07/29/17 01:00 Dose: 300 mls/hr Magnesium Hydroxide (Milk Of Magnesia -) 30 ml PO TID [facility] Last Admin: 07/29/17 06:33 Dose: Not Given Mineral Oil (Fleet Mineral Oil Rectal Enema -) 133 ml RC DAILY PRN PRN Reason: CONSTIPATION Polyethylene Glycol (Miralax (For Daily Use) -) 17 gm PO BID [facility] Last Admin: 07/28/17 21:15 Dose: Not Given Senna (Senna -) 2 tab PO HS [facility] Last Admin: 07/28/17 21:18 Dose: 2 tab - Objective Vital Signs: Vital Signs Temperature 98.5 F 07/28/17 22:00 Pulse Rate 66 07/28/17 22:00 Respiratory Rate 16 07/28/17 22:00 Blood Pressure 125/73 07/28/17 22:00 O2 Sat by Pulse Oximetry (%) 92 L 07/28/17 21:00 Cardiovascular: Yes: S1, S2 Respiratory: Yes: Regular, CTA Bilaterally Gastrointestinal: Yes: Normal Bowel Sounds, Soft Genitourinary: Yes: Hull Present Wound/Incision: Yes: Other (DRAIN IN PLACE) Labs: CBC, BMP 07/25/17 08:08 07/25/17 08:08 INR, PTT INR 1.34 (0.82-1.09) H 07/23/17 16:10 Assessment/Plan - Problems (1) Retroperitoneal fluid collection Assessment/Plan: -IR consult -YA drain -fluid sent for micro and creatinine-pending -chronic due to urinary leak from kidneys because of renal stones and stents Code(s): R18.8 - OTHER ASCITES (2) Bilateral nephrolithiasis Assessment/Plan: chronic staghorn calculus, followed by urology Has refused percutaneous nephrolithotomy that needs to be done at tertiary care center Code(s): N20.0 - CALCULUS OF KIDNEY (3) Chronic indwelling Hull catheter Assessment/Plan: 2/2 to neurogenic bladder -Awaiting urology consult-to change hull catheter -UA/UC: Microbiology 07/23/17 15:30 Urine Culture - Preliminary Urine - Urine Hull Klebsiella Pneumoniae - Esbl 07/23/17 16:10 Blood Culture - Final Blood - Peripheral Venous Staphylococcus Epidermidis 07/24/17 15:30 Gram Stain - Final Abscess Body Fluid Culture - Preliminary Lactose Fermenting Neg Bacilli Lactose Fermenting Neg Bacilli#2 Group D Strep Or Entero Coccus Alpha Hemolytic Streptococcus 07/23/17 16:10 Blood Culture - Preliminary Blood - Peripheral Venous NO GROWTH OBTAINED AFTER 48 HOURS, INCUBATION TO CONTINUE FOR 3 DAYS. Code(s): Z92.89 - PERSONAL HISTORY OF OTHER MEDICAL TREATMENT (4) Constipation due to neurogenic bowel Assessment/Plan: -chronic -laxatives -daily disimpaction by nursing Code(s): K59.00 - CONSTIPATION, UNSPECIFIED (5) Decubitus ulcer Assessment/Plan: seen by Dr Verdugo -clean with saline and betadine -abd dressing Code(s): L89.90 - PRESSURE ULCER OF UNSPECIFIED SITE, UNSPECIFIED STAGE Qualifiers: Pressure ulcer location: contiguous region involving back and buttock Pressure ulcer stage: unspecified pressure ulcer stage Laterality: unspecified laterality Qualified Code(s): L89.40 - Pressure ulcer of contiguous site of back, buttock and hip, unspecified stage (6) Effusion of hip Code(s): M25.459 - EFFUSION, UNSPECIFIED HIP Qualifiers: Laterality: left Qualified Code(s): M25.452 - Effusion, left hip (7) Hirschsprung disease of rectosigmoid region Code(s): Q43.1 - HIRSCHSPRUNG'S DISEASE (8) Leukocytosis Assessment/Plan: -improved -source hip effusion -BC/UC and abscess drain culture: Microbiology 07/23/17 15:30 Urine - Urine Hull Urine Culture - Preliminary Klebsiella Pneumoniae - Esbl 07/23/17 16:10 Blood - Peripheral Venous Blood Culture - Final Staphylococcus Epidermidis 07/24/17 15:30 Abscess Gram Stain - Final 07/24/17 15:30 Abscess Body Fluid Culture - Preliminary Lactose Fermenting Neg Bacilli Lactose Fermenting Neg Bacilli#2 Group D Strep Or Entero Coccus Alpha Hemolytic Streptococcus 07/23/17 16:10 Blood - Peripheral Venous Blood Culture - Preliminary NO GROWTH OBTAINED AFTER 48 HOURS, INCUBATION TO CONTINUE FOR 3 DAYS. -ID consult -IV abx -monitor labs Code(s): D72.829 - ELEVATED WHITE BLOOD CELL COUNT, UNSPECIFIED (9) 0STEOMYLITIS Assessment/Plan: -ON ABX -NS CONSULT
[2017-07-29] MEDS: BISACODYL 5 MG TABLET.DR (FP) PO SCH (10:48)
[2017-07-29] MEDS: POLYETHYLENE GLYCOL 3350 119 GM BTL PO SCH ×2 (10:48→22:18)
--- NOTE | 2017-07-29 10:53 | CONSULT ---
Consult - text type - Consultation Consultation Note: NEUROSURGERY CONSULTATION Patient is a 52 year old male with a long history of paraplegia who is being actively treated for a Left sided retroperitoneal abscess which was recently drained by Dr. Corcoran (IR). I was asked to evaluate him regarding possible osteomyelitis due to bone changes noted in L5 on the Left side on Abdominal CT. The patient is insensate and non-ambulatory and has no specific complaints of pain or new Neurological dysfunction, however, there certainly may be osteomyelitis which would benefit from surgical attention. I understand that a CT of the Lumbar spine is pending and will review this to evaluate the extent of his infection. Blood cultures, baseline ESR/CRP and CBC will all help in identifying the organism and monitoring treatment.
--- NOTE | 2017-07-29 18:41 | PN ---
Progress Note, Physician History of Present Illness: Pt with left retroperitoneal abscess s/p IR drain and cellulitis of left hip/ flank Also with massive chronic fecal impaction. Nurses have been unable to digitalize into true rectal vault to reach stool. Blood cultures and urine culture positive. On antibiotics per ID for multiresistant organisms. Hydronephrosis with Pelaez and ureteral stents overdue for change - pt states only Dr. Oro will change Pelaez. IR drain with 115ml recorded yesterday, 50 last shift/till am today. Being flushed periodically. - Current Medication List Current Medications: Active Medications Bisacodyl (Dulcolax -) 10 mg PO DAILY [facility] Last Admin: 07/29/17 10:48 Dose: Not Given Diphenhydramine HCl (Benadryl -) 50 mg PO HS PRN PRN Reason: INSOMNIA Heparin Sodium (Porcine) (Heparin -) 5,000 unit SQ TID [facility] Last Admin: 07/29/17 13:59 Dose: Not Given IV Flush (Picc Line Flush) 8 ml IVPUSH PRN PRN PRN Reason: Protocol Meropenem 500 mg/ Dextrose 100 mls @ 200 mls/hr IVPB Q8H-IV [facility] Last Admin: 07/29/17 10:48 Dose: 200 mls/hr Linezolid (Zyvox 600 Mg Premix Bag (Restricted To Id) -) 600 mg in 300 mls @ 300 mls/hr IVPB Q12H [facility] PRN Reason: Protocol Last Admin: 07/29/17 13:55 Dose: 300 mls/hr Magnesium Hydroxide (Milk Of Magnesia -) 30 ml PO TID [facility] Last Admin: 07/29/17 13:59 Dose: Not Given Mineral Oil (Fleet Mineral Oil Rectal Enema -) 133 ml RC DAILY PRN PRN Reason: CONSTIPATION Polyethylene Glycol (Miralax (For Daily Use) -) 17 gm PO BID [facility] Last Admin: 07/29/17 10:48 Dose: Not Given Senna (Senna -) 2 tab PO HS [facility] Last Admin: 07/28/17 21:18 Dose: 2 tab - Objective Vital Signs: Vital Signs Temperature 98.1 F 07/29/17 18:01 Pulse Rate 67 07/29/17 18:01 Respiratory Rate 20 07/29/17 18:01 Blood Pressure 107/68 07/29/17 18:01 O2 Sat by Pulse Oximetry (%) 92 L 07/28/17 21:00 Constitutional: Yes: Well Nourished, No Distress, Calm Gastrointestinal: Yes: Soft, Distention (firmly (stool burden)), Palpable Mass ( stool burden). No: Tenderness (T6 paraplegic) ...Rectal Exam: Yes: Sphincter Tone Normal (internal), Sphincter Tone Poor ( external), Other (manually disimpacted for 30 mins of moderate amount very soft , brown stool; little overall effect on stool burden) Genitourinary: Yes: Pelaez Present. No: Hematuria Musculoskeletal: Yes: Joint Stiffness (hips/knees), Other (T6 paraplegic) Extremities: Yes: External Rotation (hips). No: Cool, Cyanosis Integumentary: Yes: Pressure Ulcer (multiple sacral, ischial; upper sacral area with small opening, bone palpable at depth; overall all are clean, stage 1-3) Wound/Incision: Yes: Dressing Dry and Intact (over sacral decubiti), Dressing Removed (for cleansing after BUTCH) Neurological: Yes: Alert, Oriented, Pre-Existing Deficit (T6 paraplegia) Labs: no new labs Microbiology 07/23/17 16:10 Blood - Peripheral Venous Blood Culture - Final NO GROWTH AFTER 5 DAYS INCUBATION 07/24/17 15:30 Abscess Gram Stain - Final 07/24/17 15:30 Abscess Body Fluid Culture - Final Klebsiella Pneumoniae - Esbl Vr Ec Faecalis Streptococcus Viridans 07/24/17 15:30 Abscess Anaerobic Culture - Final NO ANAEROBES WERE ISOLATED 07/23/17 15:30 Urine - Urine Pelaez Urine Culture - Final Klebsiella Pneumoniae - Esbl Vr Ec Faecalis 07/23/17 16:10 Blood - Peripheral Venous Blood Culture - Final Staphylococcus Epidermidis - ....Imaging Cat Scan: Pending (tomorrow - CT lumbar spine planned re: possible osteomyelitis ) Problem List - Problems (1) Retroperitoneal fluid collection Assessment/Plan: left retroperitoneal urine-based fluid collection/abscess, extending outward to left hip/flank area, with associated cellulitis of left hip/flank s/p IR drain in retroperitoneal collection, serous/cloudy drainage external portion with small spot of serous drainage on skin of left posterior flank (same site as previously spontananeously drained) erythema over left hip/flank improved, nearly gone Code(s): R18.8 - OTHER ASCITES (2) Cellulitis of flank Assessment/Plan: left side - improving, nearly resolved Code(s): L03.312 - CELLULITIS OF BACK [ANY PART EXCEPT BUTTOCK] (3) Cellulitis of hip, left Code(s): L03.116 - CELLULITIS OF LEFT LOWER LIMB (4) Obstruction of urinary stent Assessment/Plan: urology has seen needs ureteral stents exchanged at risk for more fluid in retroperitoneum after cystoscopy with fluid introduction under pressure may be best done while IR drain in place to evacuate any leakage from kidney into retroperitoneal space Code(s): T83.89XA - OTH COMPLICATION OF GENITOURINARY PROSTH DEV/GRFT, INIT Qualifiers: Encounter type: sequela Qualified Code(s): T83.89XS - Other specified complication of genitourinary prosthetic devices, implants and grafts, sequela (5) Bilateral hydronephrosis Code(s): N13.30 - UNSPECIFIED HYDRONEPHROSIS (6) Other specified disorders of kidney and ureter Code(s): N28.89 - OTHER SPECIFIED DISORDERS OF KIDNEY AND URETER (7) Chronic indwelling Pelaez catheter Assessment/Plan: needs Pelaez changed - per pt, only Dr. Oro will do it Code(s): Z92.89 - PERSONAL HISTORY OF OTHER MEDICAL TREATMENT (8) Fecal impaction of colon Assessment/Plan: chronic problem secondary to Hirschsprung's compounded by neurogenic bowel manually disimpacted moderate amount of very soft brown stool with little overall impact on stool burden would continue daily disimpaction of as much stool as possible while pt is in house and cannot do for self can be done by primary team, does not require surgical expertise may continue senna and oral motility agents, mag citrate or golytely might be of benefit enemas are unlikely to have much effect given consistency of stool and difficulty with accessing rectal vault given horizontal anal angle patient does not need further stool softeners - it is too soft to evacuate or disimpact easily as it is Code(s): K56.41 - FECAL IMPACTION (9) Other megacolon Code(s): K59.39 - OTHER MEGACOLON (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 Code(s): Q43.1 - HIRSCHSPRUNG'S DISEASE (11) Decubitus ulcer Assessment/Plan: multiple sites of sacral area, buttocks, left ischium stages 1-3 noted present on admission dressings/care per Dr. Verdugo open area at superior midline may go to bone could be associated with chronic osteo Code(s): L89.90 - PRESSURE ULCER OF UNSPECIFIED SITE, UNSPECIFIED STAGE Qualifiers: Pressure ulcer location: contiguous region involving back and buttock Pressure ulcer stage: unspecified pressure ulcer stage Laterality: unspecified laterality Qualified Code(s): L89.40 - Pressure ulcer of contiguous site of back, buttock and hip, unspecified stage (12) Neurogenic bladder Code(s): N31.9 - NEUROMUSCULAR DYSFUNCTION OF BLADDER, UNSPECIFIED (13) Paraplegia following spinal cord injury Code(s): G82.20 - PARAPLEGIA, UNSPECIFIED (14) Renal stones Code(s): N20.0 - CALCULUS OF KIDNEY (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
[2017-07-29] MEDS: SENNOSIDES 8.6MG TABLET (FP) PO SCH (22:18)
[2017-07-30] MEDS: LINEZOLID 600 MG PREMIX BAG 600 MG/300 ML BAG IVPB SCH ×2 (01:11→13:19)
[2017-07-30] MEDS ORDERED: PT OWN MED DRAWER 7, Y5N ONE ×3 (02:13→23:26)
[2017-07-30] MEDS: MEROPENEM 500 MG in DEXTROSE 5%-WATER 100 ML IVPB SCH ×3 (02:14→17:12)
[2017-07-30] MEDS: HEPARIN NA (PORCINE) 5,000 UNITS/ML 1ML VIAL SQ SCH ×3 (05:34→22:04)
[2017-07-30] MEDS: MAGNESIUM HYDROX 2400MG/30ML ORAL SUSPENSION 30 ML CUP PO SCH ×3 (05:34→22:05)
[2017-07-30] MEDS: POLYETHYLENE GLYCOL 3350 119 GM BTL PO SCH ×2 (10:07→22:05)
[2017-07-30] MEDS: BISACODYL 5 MG TABLET.DR (FP) PO SCH (10:07)
--- NOTE | 2017-07-30 10:18 | PN ---
Progress Note, Physician Chief Complaint: fecal impaction History of Present Illness: 52yo male with a left retroperitoneal abscess s/p IR drain and cellulitis of left hip/flank and chronic fecal impaction. Nurses have been unable to digitalize into true rectal vault to reach stool. Blood cultures and urine culture positive. On antibiotics per ID for multiresistant organisms. No BM since yesterdays disimpaction. No acute events overnight. - Current Medication List Current Medications: Active Medications Bisacodyl (Dulcolax -) 10 mg PO DAILY [facility] Last Admin: 07/30/17 10:07 Dose: Not Given Diphenhydramine HCl (Benadryl -) 50 mg PO HS PRN PRN Reason: INSOMNIA Heparin Sodium (Porcine) (Heparin -) 5,000 unit SQ TID [facility] Last Admin: 07/30/17 05:34 Dose: Not Given IV Flush (Picc Line Flush) 8 ml IVPUSH PRN PRN PRN Reason: Protocol Meropenem 500 mg/ Dextrose 100 mls @ 200 mls/hr IVPB Q8H-IV [facility] Last Admin: 07/30/17 10:07 Dose: 200 mls/hr Linezolid (Zyvox 600 Mg Premix Bag (Restricted To Id) -) 600 mg in 300 mls @ 300 mls/hr IVPB Q12H [facility] PRN Reason: Protocol Last Admin: 07/30/17 01:11 Dose: 300 mls/hr Magnesium Hydroxide (Milk Of Magnesia -) 30 ml PO TID [facility] Last Admin: 07/30/17 05:34 Dose: Not Given Mineral Oil (Fleet Mineral Oil Rectal Enema -) 133 ml RC DAILY PRN PRN Reason: CONSTIPATION Polyethylene Glycol (Miralax (For Daily Use) -) 17 gm PO BID [facility] Last Admin: 07/30/17 10:07 Dose: Not Given Senna (Senna -) 2 tab PO HS [facility] Last Admin: 07/29/17 22:18 Dose: Not Given - Objective Vital Signs: Vital Signs Temperature 97.9 F 07/29/17 22:00 Pulse Rate 71 07/29/17 22:00 Respiratory Rate 18 07/30/17 08:45 Blood Pressure 113/73 07/29/17 22:00 O2 Sat by Pulse Oximetry (%) 93 L 07/30/17 08:45 Vital Signs Period Temp Pulse Resp BP Sys/Vu Pulse Ox Last 24 Hr 97.6 F-98.1 F 61-71 14-20 107-130/68-73 93-93 Constitutional: Yes: No Distress, Calm, Cachectic Eyes: Yes: Conjunctiva Clear, EOM Intact HENT: Yes: Atraumatic, Normocephalic Neck: Yes: Supple, Trachea Midline Cardiovascular: Yes: Regular Rate and Rhythm, S1, S2 Respiratory: Yes: Regular, CTA Bilaterally. No: Cough Gastrointestinal: Yes: Soft, Distention (minimal), Hypoactive Bowel Sounds. No : Rectal Bleeding, Tenderness ...Rectal Exam: Yes: Sphincter Tone Normal (rectal polapse, empty vault sotf pasty stool more proximal), Sphincter Tone Poor Musculoskeletal: Yes: Muscle Weakness (paraplegic) Extremities: No: Cool, Cyanosis Edema: LLE: 1+, RLE: 1+ Peripheral Pulses WNL: No Peripheral Pulses: Left Radial: 2+, Right Radial: 2+ Integumentary: No: Jaundice, Rash Neurological: Yes: Alert, Oriented Psychiatric: Yes: Alert, Oriented Labs: CBC, BMP 07/25/17 08:08 07/25/17 08:08 INR, PTT INR 1.34 (0.82-1.09) H 07/23/17 16:10 Problem List - Problems (1) Fecal impaction Assessment/Plan: 52 yo male chronic problem secondary to Hirschsprung's compounded by neurogenic bowel, manually disimpacted moderate amount of very soft brown stool with little overall impact on stool burden. continue daily disimpaction No need for surgical expertise may continue senna and oral motility agents Code(s): K56.41 - FECAL IMPACTION (2) Bilateral hydronephrosis Code(s): N13.30 - UNSPECIFIED HYDRONEPHROSIS (3) Cellulitis of flank Code(s): L03.312 - CELLULITIS OF BACK [ANY PART EXCEPT BUTTOCK] (4) Cellulitis of hip, left Code(s): L03.116 - CELLULITIS OF LEFT LOWER LIMB (5) Retroperitoneal fluid collection Code(s): R18.8 - OTHER ASCITES (6) Constipation Code(s): K59.00 - CONSTIPATION, UNSPECIFIED Qualifiers: Constipation type: unspecified constipation type Qualified Code(s): K59.00 - Constipation, unspecified (7) Decubitus ulcer Code(s): L89.90 - PRESSURE ULCER OF UNSPECIFIED SITE, UNSPECIFIED STAGE Qualifiers: Pressure ulcer location: contiguous region involving back and buttock Pressure ulcer stage: unspecified pressure ulcer stage Laterality: unspecified laterality Qualified Code(s): L89.40 - Pressure ulcer of contiguous site of back, buttock and hip, unspecified stage (8) Megacolon Code(s): K59.3 - MEGACOLON, NOT ELSEWHERE CLASSIFIED * DO NOT USE *
--- NOTE | 2017-07-30 10:19 | PN ---
Progress Note, Physician Chief Complaint: ASLEEP, COMFORTABLE SORES TO LIPS, APPEAR VIRAL NO COMPLAINTS AT THIS TIME - Current Medication List Current Medications: Active Medications Bisacodyl (Dulcolax -) 10 mg PO DAILY [facility] Last Admin: 07/30/17 10:07 Dose: Not Given Diphenhydramine HCl (Benadryl -) 50 mg PO HS PRN PRN Reason: INSOMNIA Heparin Sodium (Porcine) (Heparin -) 5,000 unit SQ TID [facility] Last Admin: 07/30/17 05:34 Dose: Not Given IV Flush (Picc Line Flush) 8 ml IVPUSH PRN PRN PRN Reason: Protocol Meropenem 500 mg/ Dextrose 100 mls @ 200 mls/hr IVPB Q8H-IV [facility] Last Admin: 07/30/17 10:07 Dose: 200 mls/hr Linezolid (Zyvox 600 Mg Premix Bag (Restricted To Id) -) 600 mg in 300 mls @ 300 mls/hr IVPB Q12H [facility] PRN Reason: Protocol Last Admin: 07/30/17 01:11 Dose: 300 mls/hr Magnesium Hydroxide (Milk Of Magnesia -) 30 ml PO TID [facility] Last Admin: 07/30/17 05:34 Dose: Not Given Mineral Oil (Fleet Mineral Oil Rectal Enema -) 133 ml RC DAILY PRN PRN Reason: CONSTIPATION Polyethylene Glycol (Miralax (For Daily Use) -) 17 gm PO BID [facility] Last Admin: 07/30/17 10:07 Dose: Not Given Senna (Senna -) 2 tab PO HS [facility] Last Admin: 07/29/17 22:18 Dose: Not Given - Objective Vital Signs: Vital Signs Temperature 97.9 F 07/29/17 22:00 Pulse Rate 71 07/29/17 22:00 Respiratory Rate 18 07/30/17 08:45 Blood Pressure 113/73 07/29/17 22:00 O2 Sat by Pulse Oximetry (%) 93 L 07/30/17 08:45 Constitutional: Yes: No Distress, Pallor HENT: Yes: WNL Neck: Yes: WNL Cardiovascular: Yes: WNL Respiratory: Yes: WNL Gastrointestinal: Yes: Distention Genitourinary: Yes: Pelaez Present Musculoskeletal: Yes: Muscle Weakness Extremities: Yes: Other Edema: No Peripheral Pulses WNL: Yes Integumentary: Yes: Pressure Ulcer, Other Wound/Incision: Yes: Dressing Dry and Intact, Unapproximated Neurological: Yes: Loss of Sensation, Numbness, Paresthesia, Pre-Existing Deficit, Unsteady Gait, Weakness ...Motor Strength: LLE, RLE Psychiatric: Yes: Other Labs: CBC, BMP 07/25/17 08:08 07/25/17 08:08 INR, PTT INR 1.34 (0.82-1.09) H 07/23/17 16:10 Problem List - Problems (1) Abscess Code(s): L02.91 - CUTANEOUS ABSCESS, UNSPECIFIED (2) Bilateral hydronephrosis Code(s): N13.30 - UNSPECIFIED HYDRONEPHROSIS (3) Cellulitis of flank Code(s): L03.312 - CELLULITIS OF BACK [ANY PART EXCEPT BUTTOCK] (4) Obstruction of urinary stent Code(s): T83.89XA - OTH COMPLICATION OF GENITOURINARY PROSTH DEV/GRFT, INIT Qualifiers: Qualified Code(s): T83.89XS - Other specified complication of genitourinary prosthetic devices, implants and grafts, sequela (5) Retroperitoneal fluid collection Code(s): R18.8 - OTHER ASCITES (6) Anemia Code(s): D64.9 - ANEMIA, UNSPECIFIED (7) Chronic indwelling Pelaez catheter Code(s): Z92.89 - PERSONAL HISTORY OF OTHER MEDICAL TREATMENT (8) Decubitus ulcer Code(s): L89.90 - PRESSURE ULCER OF UNSPECIFIED SITE, UNSPECIFIED STAGE Qualifiers: Qualified Code(s): L89.40 - Pressure ulcer of contiguous site of back, buttock and hip, unspecified stage (9) Fecal impaction in rectum Code(s): K56.41 - FECAL IMPACTION (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
[2017-07-30] MEDS: MAG HYDROX/ALH/SMC/DPHA/LIDO 240 ML MOUTHWASH MM SCH ×2 (13:18→17:12)
[2017-07-30] MEDS: BACITRACIN 15 GM TUBE TOPICAL OINTMENT TP SCH (13:19)
--- NOTE | 2017-07-30 17:54 | PN ---
Progress Note (short form) - Note Progress Note: Patient remains stable. Awaiting CT Lumbar to determine extent of osteomyelitis and potential need for surgical debridement.
[2017-07-30] MEDS: SENNOSIDES 8.6MG TABLET (FP) PO SCH (22:05)
[2017-07-31] MEDS: MAG HYDROX/ALH/SMC/DPHA/LIDO 240 ML MOUTHWASH MM SCH ×4 (00:06→17:01)
[2017-07-31] MEDS ORDERED: PT OWN MED DRAWER 7, Y5N ONE ×2 (01:44→16:49)
[2017-07-31] MEDS: LINEZOLID 600 MG PREMIX BAG 600 MG/300 ML BAG IVPB SCH ×2 (01:48→13:58)
[2017-07-31] MEDS: MEROPENEM 500 MG in DEXTROSE 5%-WATER 100 ML IVPB SCH ×3 (02:47→17:02)
[2017-07-31] MEDS: MAGNESIUM HYDROX 2400MG/30ML ORAL SUSPENSION 30 ML CUP PO SCH ×3 (05:42→21:54)
--- NOTE | 2017-07-31 09:24 | PN ---
Progress Note, Physician Chief Complaint: PATIENT REFUSED CT SCAN OF L-SPINE YESTERDAY NO FEVERS NO CHILLS DENIES CHEST PAIN OR SOB - Current Medication List Current Medications: Active Medications Bacitracin (Bacitracin -) 1 applic TP DAILY [facility] Last Admin: 07/30/17 13:19 Dose: 1 applic Bisacodyl (Dulcolax -) 10 mg PO DAILY [facility] Last Admin: 07/30/17 10:07 Dose: Not Given Diphenhydramine HCl (Benadryl -) 50 mg PO HS PRN PRN Reason: INSOMNIA IV Flush (Picc Line Flush) 8 ml IVPUSH PRN PRN PRN Reason: Protocol Meropenem 500 mg/ Dextrose 100 mls @ 200 mls/hr IVPB Q8H-IV [facility] Last Admin: 07/31/17 02:47 Dose: 200 mls/hr Linezolid (Zyvox 600 Mg Premix Bag (Restricted To Id) -) 600 mg in 300 mls @ 300 mls/hr IVPB Q12H [facility] PRN Reason: Protocol Last Admin: 07/31/17 01:48 Dose: 300 mls/hr Lidocaine/Aluminum/Magnesium/Simeth (Magic Mouthwash *Sjr Formula* -) 5 ml MM Q6HPO [facility] Last Admin: 07/31/17 05:42 Dose: Not Given Magnesium Hydroxide (Milk Of Magnesia -) 30 ml PO TID [facility] Last Admin: 07/31/17 05:42 Dose: Not Given Mineral Oil (Fleet Mineral Oil Rectal Enema -) 133 ml RC DAILY PRN PRN Reason: CONSTIPATION Polyethylene Glycol (Miralax (For Daily Use) -) 17 gm PO BID [facility] Last Admin: 07/30/17 22:05 Dose: Not Given Senna (Senna -) 2 tab PO HS [facility] Last Admin: 07/30/17 22:05 Dose: Not Given - Objective Vital Signs: Vital Signs Temperature 97.6 F 07/31/17 06:00 Pulse Rate 58 L 07/31/17 06:00 Respiratory Rate 18 07/31/17 07:43 Blood Pressure 110/67 07/31/17 06:00 O2 Sat by Pulse Oximetry (%) 93 L 07/31/17 07:43 Constitutional: Yes: No Distress Eyes: Yes: WNL HENT: Yes: WNL Neck: Yes: WNL Cardiovascular: Yes: WNL Respiratory: Yes: WNL Gastrointestinal: Yes: Distention Genitourinary: Yes: Pelaez Present Musculoskeletal: Yes: Muscle Weakness Extremities: Yes: WNL, Other Edema: No Peripheral Pulses WNL: Yes Integumentary: Yes: Pressure Ulcer, Skin Tear Wound/Incision: Yes: Dressing Dry and Intact, Unapproximated Neurological: Yes: Loss of Sensation, Numbness, Paresthesia, Pre-Existing Deficit, Weakness ...Motor Strength: LLE, RLE Psychiatric: Yes: Other Labs: CBC, BMP 07/25/17 08:08 07/25/17 08:08 INR, PTT INR 1.34 (0.82-1.09) H 07/23/17 16:10 Problem List - Problems (1) Abscess Code(s): L02.91 - CUTANEOUS ABSCESS, UNSPECIFIED (2) Bilateral hydronephrosis Code(s): N13.30 - UNSPECIFIED HYDRONEPHROSIS (3) Cellulitis of flank Code(s): L03.312 - CELLULITIS OF BACK [ANY PART EXCEPT BUTTOCK] (4) Obstruction of urinary stent Code(s): T83.89XA - OTH COMPLICATION OF GENITOURINARY PROSTH DEV/GRFT, INIT Qualifiers: Encounter type: sequela Qualified Code(s): T83.89XS - Other specified complication of genitourinary prosthetic devices, implants and grafts, sequela (5) Retroperitoneal fluid collection Code(s): R18.8 - OTHER ASCITES (6) Anemia Code(s): D64.9 - ANEMIA, UNSPECIFIED Qualifiers: Anemia type: iron deficiency Other causes of anemia: due to other specified chronic disease (7) Chronic indwelling Pelaez catheter Code(s): Z92.89 - PERSONAL HISTORY OF OTHER MEDICAL TREATMENT (8) Decubitus ulcer Code(s): L89.90 - PRESSURE ULCER OF UNSPECIFIED SITE, UNSPECIFIED STAGE Qualifiers: Pressure ulcer location: contiguous region involving back and buttock Pressure ulcer stage: unspecified pressure ulcer stage Laterality: unspecified laterality Qualified Code(s): L89.40 - Pressure ulcer of contiguous site of back, buttock and hip, unspecified stage (9) Fecal impaction in rectum Code(s): K56.41 - FECAL IMPACTION (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
[2017-07-31] MEDS: BACITRACIN 15 GM TUBE TOPICAL OINTMENT TP SCH (10:46)
[2017-07-31] MEDS: BISACODYL 5 MG TABLET.DR (FP) PO SCH (10:46)
[2017-07-31] MEDS: POLYETHYLENE GLYCOL 3350 119 GM BTL PO SCH ×2 (10:46→21:54)
--- NOTE | 2017-07-31 20:02 | PN ---
Progress Note, Physician History of Present Illness: Awake, alert in bed No c/o flank pain No fever/ chills Tolerating antibiotics - Current Medication List Current Medications: Active Medications Bacitracin (Bacitracin -) 1 applic TP DAILY [facility] Last Admin: 07/31/17 10:46 Dose: 1 applic Bisacodyl (Dulcolax -) 10 mg PO DAILY [facility] Last Admin: 07/31/17 10:46 Dose: Not Given Diphenhydramine HCl (Benadryl -) 50 mg PO HS PRN PRN Reason: INSOMNIA IV Flush (Picc Line Flush) 8 ml IVPUSH PRN PRN PRN Reason: Protocol Meropenem 500 mg/ Dextrose 100 mls @ 200 mls/hr IVPB Q8H-IV [facility] Last Admin: 07/31/17 17:02 Dose: 200 mls/hr Linezolid (Zyvox 600 Mg Premix Bag (Restricted To Id) -) 600 mg in 300 mls @ 300 mls/hr IVPB Q12H [facility] PRN Reason: Protocol Last Admin: 07/31/17 13:58 Dose: 300 mls/hr Lidocaine/Aluminum/Magnesium/Simeth (Magic Mouthwash *Sjr Formula* -) 5 ml MM Q6HPO [facility] Last Admin: 07/31/17 17:01 Dose: 5 ml Magnesium Hydroxide (Milk Of Magnesia -) 30 ml PO TID [facility] Last Admin: 07/31/17 13:58 Dose: Not Given Mineral Oil (Fleet Mineral Oil Rectal Enema -) 133 ml RC DAILY PRN PRN Reason: CONSTIPATION Polyethylene Glycol (Miralax (For Daily Use) -) 17 gm PO BID [facility] Last Admin: 07/31/17 10:46 Dose: Not Given Senna (Senna -) 2 tab PO HS [facility] Last Admin: 07/30/17 22:05 Dose: Not Given - Objective Vital Signs: Vital Signs Temperature 97.8 F 07/31/17 17:37 Pulse Rate 70 07/31/17 17:37 Respiratory Rate 18 07/31/17 17:37 Blood Pressure 120/76 07/31/17 17:37 O2 Sat by Pulse Oximetry (%) 93 L 07/31/17 07:43 Constitutional: Yes: No Distress Eyes: Yes: Conjunctiva Clear Cardiovascular: Yes: Regular Rate and Rhythm, S1, S2 Respiratory: Yes: CTA Bilaterally Gastrointestinal: Yes: Normal Bowel Sounds, Soft Labs: CBC, BMP 07/25/17 08:08 07/25/17 08:08 INR, PTT INR 1.34 (0.82-1.09) H 07/23/17 16:10 Assessment/Plan 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
--- NOTE | 2017-07-31 21:39 | PN ---
Progress Note (short form) - Note Progress Note: Patient had CT Lumbar which does not demonstrate any clinically significant instability or compression. Patient has no new neurological deficits or pain. No progression of previously described findings consistent with possible osteomyelitis. No acute indication for Neurosurgical decompression or stabilization planned. If medical treatment of infection fails and spinal debridement is felt to be beneficial, will re-evaluate.
[2017-07-31] MEDS: SENNOSIDES 8.6MG TABLET (FP) PO SCH (21:55)
[2017-08-01] MEDS: MAG HYDROX/ALH/SMC/DPHA/LIDO 240 ML MOUTHWASH MM SCH ×4 (00:56→17:55)
[2017-08-01] MEDS: LINEZOLID 600 MG PREMIX BAG 600 MG/300 ML BAG IVPB SCH ×2 (00:59→13:41)
[2017-08-01] MEDS ORDERED: PT OWN MED DRAWER 7, Y5N ONE ×4 (02:06→17:21)
[2017-08-01] MEDS: MEROPENEM 500 MG in DEXTROSE 5%-WATER 100 ML IVPB SCH ×3 (02:07→17:55)
[2017-08-01] MEDS: MAGNESIUM HYDROX 2400MG/30ML ORAL SUSPENSION 30 ML CUP PO SCH ×4 (06:21→22:24)
[2017-08-01 08:17] LABS: HEMATOCRIT 34.8 % (35.4-49); HEMOGLOBIN 11.4 GM/dL (11.7-16.9); MCH 27.3 pg (25.7-33.7); MCHC 32.9 g/dl (32.0-35.9); MEAN CELL VOLUME 83.1 fl (80-96); MEAN PLT VOLUME 7.9 fl (7.5-11.1); PLATELET COUNT 232 K/MM3 (134-434); RBC 4.18 M/mm3 (4.00-5.60); RDW 17.8 % (11.9-15.9); WHITE BLOOD COUNT 7.1 K/mm3 (4.0-10.0)
[2017-08-01 08:33] LABS: ANION GAP 4 (8-16); BLOOD UREA NITROGEN 28 mg/dL (7-18); CALCIUM 8.3 mg/dL (8.5-10.1); CHLORIDE 105 mmol/L (98-107); CO2 30 mmol/L (21-32); CREATININE 0.9 mg/dL (0.7-1.3); GLUCOSE,RANDOM 74 mg/dL (74-106); POTASSIUM 4.7 mmol/L (3.5-5.1); SODIUM 139 mmol/L (136-145)
--- NOTE | 2017-08-01 09:32 | PN ---
Progress Note, Physician History of Present Illness: Awake, alert in bed No complaints No c/o flank pain No fever/ chills Tolerating antibiotics - Current Medication List Current Medications: Active Medications Bacitracin (Bacitracin -) 1 applic TP DAILY [facility] Last Admin: 07/31/17 10:46 Dose: 1 applic Bisacodyl (Dulcolax -) 10 mg PO DAILY [facility] Last Admin: 07/31/17 10:46 Dose: Not Given Diphenhydramine HCl (Benadryl -) 50 mg PO HS PRN PRN Reason: INSOMNIA IV Flush (Picc Line Flush) 8 ml IVPUSH PRN PRN PRN Reason: Protocol Meropenem 500 mg/ Dextrose 100 mls @ 200 mls/hr IVPB Q8H-IV [facility] Last Admin: 08/01/17 02:07 Dose: 200 mls/hr Linezolid (Zyvox 600 Mg Premix Bag (Restricted To Id) -) 600 mg in 300 mls @ 300 mls/hr IVPB Q12H [facility] PRN Reason: Protocol Last Admin: 08/01/17 00:59 Dose: 300 mls/hr Lidocaine/Aluminum/Magnesium/Simeth (Magic Mouthwash *Sjr Formula* -) 5 ml MM Q6HPO [facility] Last Admin: 08/01/17 06:21 Dose: Not Given Magnesium Hydroxide (Milk Of Magnesia -) 30 ml PO TID [facility] Last Admin: 08/01/17 06:21 Dose: Not Given Mineral Oil (Fleet Mineral Oil Rectal Enema -) 133 ml RC DAILY PRN PRN Reason: CONSTIPATION Polyethylene Glycol (Miralax (For Daily Use) -) 17 gm PO BID [facility] Last Admin: 07/31/17 21:54 Dose: Not Given Senna (Senna -) 2 tab PO HS [facility] Last Admin: 07/31/17 21:55 Dose: Not Given - Objective Vital Signs: Vital Signs Temperature 97.9 F 08/01/17 06:00 Pulse Rate 58 L 08/01/17 06:00 Respiratory Rate 20 08/01/17 06:00 Blood Pressure 127/80 08/01/17 06:00 O2 Sat by Pulse Oximetry (%) 94 L 07/31/17 21:00 Constitutional: Yes: No Distress Eyes: Yes: Conjunctiva Clear Cardiovascular: Yes: Regular Rate and Rhythm, S1, S2 Respiratory: Yes: CTA Bilaterally Gastrointestinal: Yes: Normal Bowel Sounds, Soft. No: Tenderness Extremities: Yes: Other (decreased swelling L flank. No erythema. 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
[2017-08-01] MEDS: BACITRACIN 15 GM TUBE TOPICAL OINTMENT TP SCH (10:33)
[2017-08-01] MEDS: POLYETHYLENE GLYCOL 3350 119 GM BTL PO SCH ×2 (10:33→22:24)
[2017-08-01] MEDS: BISACODYL 5 MG TABLET.DR (FP) PO SCH (10:33)
--- NOTE | 2017-08-01 12:18 | PN ---
Progress Note, Physician History of Present Illness: no new complaints - Current Medication List Current Medications: Active Medications Bacitracin (Bacitracin -) 1 applic TP DAILY [facility] Last Admin: 08/01/17 10:33 Dose: 1 applic Bisacodyl (Dulcolax -) 10 mg PO DAILY [facility] Last Admin: 08/01/17 10:33 Dose: Not Given Diphenhydramine HCl (Benadryl -) 50 mg PO HS PRN PRN Reason: INSOMNIA IV Flush (Picc Line Flush) 8 ml IVPUSH PRN PRN PRN Reason: Protocol Meropenem 500 mg/ Dextrose 100 mls @ 200 mls/hr IVPB Q8H-IV [facility] Last Admin: 08/01/17 10:33 Dose: 200 mls/hr Linezolid (Zyvox 600 Mg Premix Bag (Restricted To Id) -) 600 mg in 300 mls @ 300 mls/hr IVPB Q12H [facility] PRN Reason: Protocol Last Admin: 08/01/17 00:59 Dose: 300 mls/hr Lidocaine/Aluminum/Magnesium/Simeth (Magic Mouthwash *Sjr Formula* -) 5 ml MM Q6HPO [facility] Last Admin: 08/01/17 06:21 Dose: Not Given Magnesium Hydroxide (Milk Of Magnesia -) 30 ml PO TID [facility] Last Admin: 08/01/17 10:35 Dose: 30 ml Mineral Oil (Fleet Mineral Oil Rectal Enema -) 133 ml RC DAILY PRN PRN Reason: CONSTIPATION Polyethylene Glycol (Miralax (For Daily Use) -) 17 gm PO BID [facility] Last Admin: 08/01/17 10:33 Dose: Not Given Senna (Senna -) 2 tab PO HS [facility] Last Admin: 07/31/17 21:55 Dose: Not Given - Objective Vital Signs: Vital Signs Temperature 97.9 F 08/01/17 06:00 Pulse Rate 58 L 08/01/17 06:00 Respiratory Rate 20 08/01/17 06:00 Blood Pressure 127/80 08/01/17 06:00 O2 Sat by Pulse Oximetry (%) 94 L 07/31/17 21:00 Cardiovascular: Yes: S1, S2 Respiratory: Yes: Regular, CTA Bilaterally Gastrointestinal: Yes: Normal Bowel Sounds, Soft Wound/Incision: Yes: Other (drain in place) Labs: CBC, BMP 08/01/17 07:45 08/01/17 07:45 INR, PTT INR 1.34 (0.82-1.09) H 07/23/17 16:10 Assessment/Plan - Problems (1) Retroperitoneal fluid collection Assessment/Plan: -IR consult -YA drain -fluid sent for micro and creatinine-pending -chronic due to urinary leak from kidneys because of renal stones and stents Code(s): R18.8 - OTHER ASCITES (2) Bilateral nephrolithiasis Assessment/Plan: chronic staghorn calculus, followed by urology Has refused percutaneous nephrolithotomy that needs to be done at tertiary care center Code(s): N20.0 - CALCULUS OF KIDNEY (3) Chronic indwelling [place] catheter Assessment/Plan: 2/2 to neurogenic bladder -Awaiting urology consult-to change hull catheter -UA/UC: Microbiology 07/23/17 15:30 Urine Culture - Preliminary Urine - Urine [place] Klebsiella Pneumoniae - Esbl 07/23/17 16:10 Blood Culture - Final Blood - Peripheral Venous Staphylococcus Epidermidis 07/24/17 15:30 Gram Stain - Final Abscess Body Fluid Culture - Preliminary Lactose Fermenting Neg Bacilli Lactose Fermenting Neg Bacilli#2 Group D Strep Or Entero Coccus Alpha Hemolytic Streptococcus 07/23/17 16:10 Blood Culture - Preliminary Blood - Peripheral Venous NO GROWTH OBTAINED AFTER 48 HOURS, INCUBATION TO CONTINUE FOR 3 DAYS. Code(s): Z92.89 - PERSONAL HISTORY OF OTHER MEDICAL TREATMENT (4) Constipation due to neurogenic bowel Assessment/Plan: -chronic -laxatives -daily disimpaction by nursing Code(s): K59.00 - CONSTIPATION, UNSPECIFIED (5) Decubitus ulcer Assessment/Plan: seen by Dr Verdugo -clean with saline and betadine -abd dressing Code(s): L89.90 - PRESSURE ULCER OF UNSPECIFIED SITE, UNSPECIFIED STAGE Qualifiers: Pressure ulcer location: contiguous region involving back and buttock Pressure ulcer stage: unspecified pressure ulcer stage Laterality: unspecified laterality Qualified Code(s): L89.40 - Pressure ulcer of contiguous site of back, buttock and hip, unspecified stage (6) Effusion of hip Code(s): M25.459 - EFFUSION, UNSPECIFIED HIP Qualifiers: Laterality: left Qualified Code(s): M25.452 - Effusion, left hip (7) Hirschsprung disease of rectosigmoid region Code(s): Q43.1 - HIRSCHSPRUNG'S DISEASE (8) Leukocytosis Assessment/Plan: -improved -source hip effusion -BC/UC and abscess drain culture: Microbiology 07/23/17 15:30 Urine - Urine [place] Urine Culture - Preliminary Klebsiella Pneumoniae - Esbl 07/23/17 16:10 Blood - Peripheral Venous Blood Culture - Final Staphylococcus Epidermidis 07/24/17 15:30 Abscess Gram Stain - Final 07/24/17 15:30 Abscess Body Fluid Culture - Preliminary Lactose Fermenting Neg Bacilli Lactose Fermenting Neg Bacilli#2 Group D Strep Or Entero Coccus Alpha Hemolytic Streptococcus 07/23/17 16:10 Blood - Peripheral Venous Blood Culture - Preliminary NO GROWTH OBTAINED AFTER 48 HOURS, INCUBATION TO CONTINUE FOR 3 DAYS. -ID consult -IV abx -monitor labs Code(s): D72.829 - ELEVATED WHITE BLOOD CELL COUNT, UNSPECIFIED (9) 0STEOMYLITIS Assessment/Plan: -ON ABX -NS CONSULT
[2017-08-01] MEDS: SENNOSIDES 8.6MG TABLET (FP) PO SCH (22:24)
[2017-08-02] MEDS: MAG HYDROX/ALH/SMC/DPHA/LIDO 240 ML MOUTHWASH MM SCH ×4 (00:42→17:30)
[2017-08-02] MEDS: LINEZOLID 600 MG PREMIX BAG 600 MG/300 ML BAG IVPB SCH ×2 (02:02→14:05)
[2017-08-02] MEDS ORDERED: PT OWN MED DRAWER 7, Y5N ONE ×3 (02:44→17:15)
[2017-08-02] MEDS: MEROPENEM 500 MG in DEXTROSE 5%-WATER 100 ML IVPB SCH ×3 (02:56→17:29)
[2017-08-02] MEDS: MAGNESIUM HYDROX 2400MG/30ML ORAL SUSPENSION 30 ML CUP PO SCH ×3 (05:44→21:14)
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
--- NOTE | 2017-08-02 10:15 | PN ---
Progress Note, Physician History of Present Illness: no new complaints - Current Medication List Current Medications: Active Medications Bacitracin (Bacitracin -) 1 applic TP DAILY [facility] Last Admin: 08/01/17 10:33 Dose: 1 applic Bisacodyl (Dulcolax -) 10 mg PO DAILY [facility] Last Admin: 08/01/17 10:33 Dose: Not Given Diphenhydramine HCl (Benadryl -) 50 mg PO HS PRN PRN Reason: INSOMNIA IV Flush (Picc Line Flush) 8 ml IVPUSH PRN PRN PRN Reason: Protocol Meropenem 500 mg/ Dextrose 100 mls @ 200 mls/hr IVPB Q8H-IV [facility] Last Admin: 08/02/17 02:56 Dose: 200 mls/hr Linezolid (Zyvox 600 Mg Premix Bag (Restricted To Id) -) 600 mg in 300 mls @ 300 mls/hr IVPB Q12H [facility] PRN Reason: Protocol Last Admin: 08/02/17 02:02 Dose: 300 mls/hr Lidocaine/Aluminum/Magnesium/Simeth (Magic Mouthwash *Sjr Formula* -) 5 ml MM Q6HPO [facility] Last Admin: 08/02/17 05:44 Dose: Not Given Magnesium Hydroxide (Milk Of Magnesia -) 30 ml PO TID [facility] Last Admin: 08/02/17 05:44 Dose: Not Given Mineral Oil (Fleet Mineral Oil Rectal Enema -) 133 ml RC DAILY PRN PRN Reason: CONSTIPATION Polyethylene Glycol (Miralax (For Daily Use) -) 17 gm PO BID [facility] Last Admin: 08/01/17 22:24 Dose: Not Given Senna (Senna -) 2 tab PO HS [facility] Last Admin: 08/01/17 22:24 Dose: Not Given - Objective Vital Signs: Vital Signs Temperature 97.7 F 08/01/17 22:00 Pulse Rate 79 08/01/17 22:00 Respiratory Rate 20 08/01/17 22:00 Blood Pressure 109/58 08/01/17 22:00 O2 Sat by Pulse Oximetry (%) 97 08/01/17 21:00 Gastrointestinal: Yes: Normal Bowel Sounds, Soft, Other (drain in place) Labs: CBC, BMP 08/01/17 07:45 08/01/17 07:45 INR, PTT INR 1.34 (0.82-1.09) H 07/23/17 16:10 Assessment/Plan - Problems (1) Retroperitoneal fluid collection Assessment/Plan: -IR consult -YA drain -fluid sent for micro and creatinine-pending -chronic due to urinary leak from kidneys because of renal stones and stents Code(s): R18.8 - OTHER ASCITES (2) Bilateral nephrolithiasis Assessment/Plan: chronic staghorn calculus, followed by urology Has refused percutaneous nephrolithotomy that needs to be done at tertiary care center Code(s): N20.0 - CALCULUS OF KIDNEY (3) Chronic indwelling Hull catheter Assessment/Plan: 2/2 to neurogenic bladder -Awaiting urology consult-to change hull catheter -UA/UC: Microbiology 07/23/17 15:30 Urine Culture - Preliminary Urine - Urine Hull Klebsiella Pneumoniae - Esbl 07/23/17 16:10 Blood Culture - Final Blood - Peripheral Venous Staphylococcus Epidermidis 07/24/17 15:30 Gram Stain - Final Abscess Body Fluid Culture - Preliminary Lactose Fermenting Neg Bacilli Lactose Fermenting Neg Bacilli#2 Group D Strep Or Entero Coccus Alpha Hemolytic Streptococcus 07/23/17 16:10 Blood Culture - Preliminary Blood - Peripheral Venous NO GROWTH OBTAINED AFTER 48 HOURS, INCUBATION TO CONTINUE FOR 3 DAYS. Code(s): Z92.89 - PERSONAL HISTORY OF OTHER MEDICAL TREATMENT (4) Constipation due to neurogenic bowel Assessment/Plan: -chronic -laxatives -daily disimpaction by nursing Code(s): K59.00 - CONSTIPATION, UNSPECIFIED (5) Decubitus ulcer Assessment/Plan: seen by Dr Verdugo -clean with saline and betadine -abd dressing Code(s): L89.90 - PRESSURE ULCER OF UNSPECIFIED SITE, UNSPECIFIED STAGE Qualifiers: Pressure ulcer location: contiguous region involving back and buttock Pressure ulcer stage: unspecified pressure ulcer stage Laterality: unspecified laterality Qualified Code(s): L89.40 - Pressure ulcer of contiguous site of back, buttock and hip, unspecified stage (6) Effusion of hip Code(s): M25.459 - EFFUSION, UNSPECIFIED HIP Qualifiers: Laterality: left Qualified Code(s): M25.452 - Effusion, left hip (7) Hirschsprung disease of rectosigmoid region Code(s): Q43.1 - HIRSCHSPRUNG'S DISEASE (8) Leukocytosis Assessment/Plan: -improved -source hip effusion -BC/UC and abscess drain culture: Microbiology 07/23/17 15:30 Urine - Urine [place] Urine Culture - Preliminary Klebsiella Pneumoniae - Esbl 07/23/17 16:10 Blood - Peripheral Venous Blood Culture - Final Staphylococcus Epidermidis 07/24/17 15:30 Abscess Gram Stain - Final 07/24/17 15:30 Abscess Body Fluid Culture - Preliminary Lactose Fermenting Neg Bacilli Lactose Fermenting Neg Bacilli#2 Group D Strep Or Entero Coccus Alpha Hemolytic Streptococcus 07/23/17 16:10 Blood - Peripheral Venous Blood Culture - Preliminary NO GROWTH OBTAINED AFTER 48 HOURS, INCUBATION TO CONTINUE FOR 3 DAYS. -ID consult -IV abx -monitor labs Code(s): D72.829 - ELEVATED WHITE BLOOD CELL COUNT, UNSPECIFIED (9) 0STEOMYLITIS Assessment/Plan: -ON ABX -NS CONSULT NOTED--NO INTERVENTION
[2017-08-02] MEDS: BISACODYL 5 MG TABLET.DR (FP) PO SCH (12:48)
[2017-08-02] MEDS: POLYETHYLENE GLYCOL 3350 119 GM BTL PO SCH ×2 (12:48→21:14)
[2017-08-02] MEDS: BACITRACIN 15 GM TUBE TOPICAL OINTMENT TP SCH (12:48)
--- NOTE | 2017-08-02 14:06 | PN ---
Progress Note, Physician History of Present Illness: Pt with left retroperitoneal abscess s/p IR drain and cellulitis of left hip/ flank Also with massive chronic fecal impaction. Nurses have been unable to digitalize into true rectal vault to reach stool. Blood cultures and urine culture positive. On antibiotics per ID for multiresistant organisms. Hydronephrosis with Pelaez and ureteral stents due for change - seen by Dr. Oro IR drain with 30ml recorded yesterday, 10 last shift/till am today. - Current Medication List Current Medications: Active Medications Bacitracin (Bacitracin -) 1 applic TP DAILY [facility] Last Admin: 08/02/17 12:48 Dose: Not Given Bisacodyl (Dulcolax -) 10 mg PO DAILY [facility] Last Admin: 08/02/17 12:48 Dose: Not Given Diphenhydramine HCl (Benadryl -) 50 mg PO HS PRN PRN Reason: INSOMNIA IV Flush (Picc Line Flush) 8 ml IVPUSH PRN PRN PRN Reason: Protocol Meropenem 500 mg/ Dextrose 100 mls @ 200 mls/hr IVPB Q8H-IV [facility] Last Admin: 08/02/17 10:00 Dose: 200 mls/hr Linezolid (Zyvox 600 Mg Premix Bag (Restricted To Id) -) 600 mg in 300 mls @ 300 mls/hr IVPB Q12H [facility] PRN Reason: Protocol Last Admin: 08/02/17 02:02 Dose: 300 mls/hr Lidocaine/Aluminum/Magnesium/Simeth (Magic Mouthwash *Sjr Formula* -) 5 ml MM Q6HPO [facility] Last Admin: 08/02/17 12:48 Dose: 5 ml Magnesium Hydroxide (Milk Of Magnesia -) 30 ml PO TID [facility] Last Admin: 08/02/17 05:44 Dose: Not Given Mineral Oil (Fleet Mineral Oil Rectal Enema -) 133 ml RC DAILY PRN PRN Reason: CONSTIPATION Polyethylene Glycol (Miralax (For Daily Use) -) 17 gm PO BID [facility] Last Admin: 08/02/17 12:48 Dose: Not Given Senna (Senna -) 2 tab PO HS [facility] Last Admin: 08/01/17 22:24 Dose: Not Given - Objective Vital Signs: Vital Signs Temperature 97.7 F 08/02/17 10:00 Pulse Rate 66 05/20/18 10:00 Respiratory Rate 20 08/02/17 10:00 Blood Pressure 118/80 08/02/17 10:00 O2 Sat by Pulse Oximetry (%) 97 08/02/17 10:00 Constitutional: Yes: Well Nourished, No Distress, Calm Eyes: Yes: Conjunctiva Clear, EOM Intact HENT: Yes: Atraumatic, Normocephalic Gastrointestinal: Yes: Distention (firmly), Palpable Mass (stool burden). No: Tenderness (T6 paraplegic) ...Rectal Exam: Yes: Other (manually disimpacted of soft brown stool without overall change in stool burden; taught nurse at bedside how to access internal sphincter and rectal vault, but difficult to reach and withdraw secondary to softness). No: Hemorrhoids/External Genitourinary: Yes: Pelaez Present. No: Hematuria Musculoskeletal: Yes: Joint Stiffness (hips knees). No: Joint Swelling Extremities: Yes: External Rotation (hips). No: Cool, Cyanosis Integumentary: Yes: Pressure Ulcer (multiple sacral), Rash (maculopapular rash over left back - thought secondary to bed/sheets per pt/nurse) Neurological: Yes: Alert, Oriented, Pre-Existing Deficit (T6 paraplegic) Labs: yesterday CBC, BMP 08/01/17 07:45 08/01/17 07:45 Problem List - Problems (1) Retroperitoneal fluid collection Assessment/Plan: left retroperitoneal urine-based fluid collection/abscess, extending outward to left hip/flank area, with associated cellulitis of left hip/flank s/p IR drain in retroperitoneal collection, serous/cloudy drainage erythema over left hip/flank essentially resolved Code(s): R18.8 - OTHER ASCITES (2) Cellulitis of flank Assessment/Plan: left side - essentially resolved Code(s): L03.312 - CELLULITIS OF BACK [ANY PART EXCEPT BUTTOCK] (3) Cellulitis of hip, left Code(s): L03.116 - CELLULITIS OF LEFT LOWER LIMB (4) Obstruction of urinary stent Assessment/Plan: urology has seen needs ureteral stents exchanged at risk for more fluid in retroperitoneum after cystoscopy with fluid introduction under pressure may be best done while IR drain in place to evacuate any leakage from kidney into retroperitoneal space Code(s): T83.89XA - OTH COMPLICATION OF GENITOURINARY PROSTH DEV/GRFT, INIT Qualifiers: Encounter type: sequela Qualified Code(s): T83.89XS - Other specified complication of genitourinary prosthetic devices, implants and grafts, sequela (5) Bilateral hydronephrosis Code(s): N13.30 - UNSPECIFIED HYDRONEPHROSIS (6) Other specified disorders of kidney and ureter Code(s): N28.89 - OTHER SPECIFIED DISORDERS OF KIDNEY AND URETER (7) Chronic indwelling Pelaez catheter Assessment/Plan: needs Pelaez changed - seen by Dr. Oro with plan for same Code(s): Z92.89 - PERSONAL HISTORY OF OTHER MEDICAL TREATMENT (8) Fecal impaction of colon Assessment/Plan: chronic problem secondary to Hirschsprung's compounded by neurogenic bowel manually disimpacted (20 mins) small to moderate amount of very soft brown stool with little overall impact on stool burden would continue daily disimpaction of as much stool as possible while pt is in house and cannot do for self can be done by primary team, does not require surgical expertise may continue senna and oral motility agents, mag citrate or golytely might be of benefit - though without anorectal motility, little is likely to be effective enemas are unlikely to have much effect given consistency of stool and difficulty with accessing rectal vault given horizontal anal angle patient does not need further stool softeners - it is too soft to evacuate or disimpact easily as it is Code(s): K56.41 - FECAL IMPACTION (9) Other megacolon Code(s): K59.39 - OTHER MEGACOLON (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 Code(s): Q43.1 - HIRSCHSPRUNG'S DISEASE (11) Decubitus ulcer Code(s): L89.90 - PRESSURE ULCER OF UNSPECIFIED SITE, UNSPECIFIED STAGE Qualifiers: Pressure ulcer location: contiguous region involving back and buttock Pressure ulcer stage: unspecified pressure ulcer stage Laterality: unspecified laterality Qualified Code(s): L89.40 - Pressure ulcer of contiguous site of back, buttock and hip, unspecified stage (12) Neurogenic bladder Code(s): N31.9 - NEUROMUSCULAR DYSFUNCTION OF BLADDER, UNSPECIFIED (13) Paraplegia following spinal cord injury Code(s): G82.20 - PARAPLEGIA, UNSPECIFIED (14) Renal stones Code(s): N20.0 - CALCULUS OF KIDNEY (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
[2017-08-02] MEDS: SENNOSIDES 8.6MG TABLET (FP) PO SCH (21:14)
[2017-08-03] MEDS ORDERED: PT OWN MED DRAWER 7, Y5N ONE ×3 (00:12→16:47)
[2017-08-03] MEDS: MAG HYDROX/ALH/SMC/DPHA/LIDO 240 ML MOUTHWASH MM SCH ×4 (00:26→17:20)
[2017-08-03] MEDS: LINEZOLID 600 MG PREMIX BAG 600 MG/300 ML BAG IVPB SCH ×2 (01:16→15:41)
[2017-08-03] MEDS: MEROPENEM 500 MG in DEXTROSE 5%-WATER 100 ML IVPB SCH ×3 (01:16→17:21)
[2017-08-03] MEDS: MAGNESIUM HYDROX 2400MG/30ML ORAL SUSPENSION 30 ML CUP PO SCH ×3 (05:15→23:45)
[2017-08-03] MEDS: POLYETHYLENE GLYCOL 3350 119 GM BTL PO SCH ×2 (10:54→23:45)
[2017-08-03] MEDS: BISACODYL 5 MG TABLET.DR (FP) PO SCH (10:54)
[2017-08-03] MEDS: BACITRACIN 15 GM TUBE TOPICAL OINTMENT TP SCH (10:54)
[2017-08-03] MEDS ORDERED: MEROPENEM 500 MG in DEXTROSE 5%-WATER 100 ML IVPB SCH (14:00)
[2017-08-03] MEDS ORDERED: LINEZOLID 600 MG PREMIX BAG 600 MG/300 ML BAG IVPB SCH (14:00)
--- NOTE | 2017-08-03 14:42 | PN ---
Progress Note, Physician History of Present Illness: Awake, alert in bed No complaints No c/o flank pain No fever/ chills Tolerating antibiotics - Current Medication List Current Medications: Active Medications Bacitracin (Bacitracin -) 1 applic TP DAILY [facility] Last Admin: 08/03/17 10:54 Dose: 1 applic Bisacodyl (Dulcolax -) 10 mg PO DAILY [facility] Last Admin: 08/03/17 10:54 Dose: Not Given Diphenhydramine HCl (Benadryl -) 50 mg PO HS PRN PRN Reason: INSOMNIA IV Flush (Picc Line Flush) 8 ml IVPUSH PRN PRN PRN Reason: Protocol Meropenem 500 mg/ Dextrose 100 mls @ 200 mls/hr IVPB Q8H-IV [facility] Linezolid (Zyvox 600 Mg Premix Bag (Restricted To Id) -) 600 mg in 300 mls @ 300 mls/hr IVPB Q12H [facility] PRN Reason: Protocol Meropenem 500 mg/ Dextrose 100 mls @ 200 mls/hr IVPB Q8H-IV [facility] Lidocaine/Aluminum/Magnesium/Simeth (Magic Mouthwash *Sjr Formula* -) 5 ml MM Q6HPO [facility] Last Admin: 08/03/17 12:33 Dose: 5 ml Magnesium Hydroxide (Milk Of Magnesia -) 30 ml PO TID [facility] Last Admin: 08/03/17 14:29 Dose: Not Given Mineral Oil (Fleet Mineral Oil Rectal Enema -) 133 ml RC DAILY PRN PRN Reason: CONSTIPATION Polyethylene Glycol (Miralax (For Daily Use) -) 17 gm PO BID [facility] Last Admin: 08/03/17 10:54 Dose: Not Given Senna (Senna -) 2 tab PO HS [facility] Last Admin: 08/02/17 21:14 Dose: Not Given - Objective Vital Signs: Vital Signs Temperature 97.6 F 08/03/17 10:00 Pulse Rate 65 08/03/17 10:00 Respiratory Rate 18 08/03/17 10:00 Blood Pressure 124/73 08/03/17 10:00 O2 Sat by Pulse Oximetry (%) 96 08/03/17 08:59 Constitutional: Yes: No Distress Eyes: Yes: Conjunctiva Clear Cardiovascular: Yes: Regular Rate and Rhythm, S1, S2 Respiratory: Yes: CTA Bilaterally Gastrointestinal: Yes: Normal Bowel Sounds, Soft, Abdomen, Obese, Other ( distended). 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
--- NOTE | 2017-08-03 16:39 | PN ---
Progress Note, Physician Chief Complaint: AWAKE, ALERT SURGERY DR ROGERS WITH PATIENT EXAMINING SACRAL/BACK ULCERS NO COMPLAINTS AT THIS TIME - Current Medication List Current Medications: Active Medications Bacitracin (Bacitracin -) 1 applic TP DAILY [facility] Last Admin: 08/03/17 10:54 Dose: 1 applic Bisacodyl (Dulcolax -) 10 mg PO DAILY [facility] Last Admin: 08/03/17 10:54 Dose: Not Given Diphenhydramine HCl (Benadryl -) 50 mg PO HS PRN PRN Reason: INSOMNIA IV Flush (Picc Line Flush) 8 ml IVPUSH PRN PRN PRN Reason: Protocol Linezolid (Zyvox 600 Mg Premix Bag (Restricted To Id) -) 600 mg in 300 mls @ 300 mls/hr IVPB Q12H [facility] PRN Reason: Protocol Last Admin: 08/03/17 15:41 Dose: Not Given Meropenem 500 mg/ Dextrose 100 mls @ 200 mls/hr IVPB Q8H-IV [facility] Lidocaine/Aluminum/Magnesium/Simeth (Magic Mouthwash *Sjr Formula* -) 5 ml MM Q6HPO [facility] Last Admin: 08/03/17 12:33 Dose: 5 ml Magnesium Hydroxide (Milk Of Magnesia -) 30 ml PO TID [facility] Last Admin: 08/03/17 14:29 Dose: Not Given Mineral Oil (Fleet Mineral Oil Rectal Enema -) 133 ml RC DAILY PRN PRN Reason: CONSTIPATION Polyethylene Glycol (Miralax (For Daily Use) -) 17 gm PO BID [facility] Last Admin: 08/03/17 10:54 Dose: Not Given Senna (Senna -) 2 tab PO HS [facility] Last Admin: 08/02/17 21:14 Dose: Not Given - Objective Vital Signs: Vital Signs Temperature 97.6 F 08/03/17 10:00 Pulse Rate 65 08/03/17 10:00 Respiratory Rate 18 08/03/17 10:00 Blood Pressure 124/73 08/03/17 10:00 O2 Sat by Pulse Oximetry (%) 96 08/03/17 08:59 Constitutional: Yes: No Distress Eyes: Yes: WNL HENT: Yes: WNL Neck: Yes: WNL Cardiovascular: Yes: WNL Respiratory: Yes: WNL Gastrointestinal: Yes: Distention Genitourinary: Yes: Pelaez Present Musculoskeletal: Yes: Muscle Weakness Extremities: Yes: Deformity Edema: No Peripheral Pulses WNL: Yes Integumentary: Yes: Pressure Ulcer Wound/Incision: Yes: Dressing Removed, Excoriated Neurological: Yes: Pre-Existing Deficit, Weakness ...Motor Strength: LLE, RLE Psychiatric: Yes: WNL Labs: CBC, BMP 08/01/17 07:45 08/01/17 07:45 INR, PTT INR 1.34 (0.82-1.09) H 07/23/17 16:10 Problem List - Problems (1) Abscess Code(s): L02.91 - CUTANEOUS ABSCESS, UNSPECIFIED (2) Bilateral hydronephrosis Code(s): N13.30 - UNSPECIFIED HYDRONEPHROSIS (3) Cellulitis of flank Code(s): L03.312 - CELLULITIS OF BACK [ANY PART EXCEPT BUTTOCK] (4) Obstruction of urinary stent Code(s): T83.89XA - OTH COMPLICATION OF GENITOURINARY PROSTH DEV/GRFT, INIT Qualifiers: Encounter type: sequela Qualified Code(s): T83.89XS - Other specified complication of genitourinary prosthetic devices, implants and grafts, sequela (5) Retroperitoneal fluid collection Code(s): R18.8 - OTHER ASCITES (6) Anemia Code(s): D64.9 - ANEMIA, UNSPECIFIED Qualifiers: Anemia type: iron deficiency Other causes of anemia: due to other specified chronic disease (7) Chronic indwelling Pelaez catheter Code(s): Z92.89 - PERSONAL HISTORY OF OTHER MEDICAL TREATMENT (8) Decubitus ulcer Code(s): L89.90 - PRESSURE ULCER OF UNSPECIFIED SITE, UNSPECIFIED STAGE Qualifiers: Pressure ulcer location: contiguous region involving back and buttock Pressure ulcer stage: unspecified pressure ulcer stage Laterality: unspecified laterality Qualified Code(s): L89.40 - Pressure ulcer of contiguous site of back, buttock and hip, unspecified stage (9) Fecal impaction in rectum Code(s): K56.41 - FECAL IMPACTION (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 Code(s): Z16.35 - RESISTANCE TO MULTIPLE ANTIMICROBIAL DRUGS (11) Megacolon Code(s): K59.3 - MEGACOLON, NOT ELSEWHERE CLASSIFIED * DO NOT USE * (12) Neurogenic bladder Code(s): N31.9 - NEUROMUSCULAR DYSFUNCTION OF BLADDER, UNSPECIFIED (13) Neurogenic bowel Code(s): K59.2 - NEUROGENIC BOWEL, NOT ELSEWHERE CLASSIFIED (14) Paraplegia following spinal cord injury Code(s): G82.20 - PARAPLEGIA, UNSPECIFIED (15) Weakness Code(s): R53.1 - WEAKNESS Assessment/Plan IV ABX PER ID NOW ON LINEZOLID/MERIPENOM UROLOGY F/U FOR URINARY OBSTRUCTION INTRAABD ABSCESS NEED IR/SURGERY F/U WOUND CARE STAGE4 AND UNSTAGEABLE ULCERS TO BACK PAIN CONTROL PRN
--- NOTE | 2017-08-03 16:42 | PN ---
Progress Note, Physician History of Present Illness: Pt with left retroperitoneal abscess s/p IR drain and cellulitis (resolved) of left hip/flank Also with massive chronic fecal impaction. Nurses generally unable to digitalize into true rectal vault to reach stool or are not trying. Blood cultures and urine culture positive. On antibiotics per ID for multiresistant organisms. Hydronephrosis with Pelaez and ureteral stents due for change - seen by Dr. Oro IR drain with 30ml recorded yesterday, 20 last shift/till am today, serous/lt serosang. - Current Medication List Current Medications: Active Medications Bacitracin (Bacitracin -) 1 applic TP DAILY [facility] Last Admin: 08/03/17 10:54 Dose: 1 applic Bisacodyl (Dulcolax -) 10 mg PO DAILY [facility] Last Admin: 08/03/17 10:54 Dose: Not Given Diphenhydramine HCl (Benadryl -) 50 mg PO HS PRN PRN Reason: INSOMNIA IV Flush (Picc Line Flush) 8 ml IVPUSH PRN PRN PRN Reason: Protocol Linezolid (Zyvox 600 Mg Premix Bag (Restricted To Id) -) 600 mg in 300 mls @ 300 mls/hr IVPB Q12H [facility] PRN Reason: Protocol Last Admin: 08/03/17 15:41 Dose: Not Given Meropenem 500 mg/ Dextrose 100 mls @ 200 mls/hr IVPB Q8H-IV [facility] Lidocaine/Aluminum/Magnesium/Simeth (Magic Mouthwash *Sjr Formula* -) 5 ml MM Q6HPO [facility] Last Admin: 08/03/17 12:33 Dose: 5 ml Magnesium Hydroxide (Milk Of Magnesia -) 30 ml PO TID [facility] Last Admin: 08/03/17 14:29 Dose: Not Given Mineral Oil (Fleet Mineral Oil Rectal Enema -) 133 ml RC DAILY PRN PRN Reason: CONSTIPATION Polyethylene Glycol (Miralax (For Daily Use) -) 17 gm PO BID [facility] Last Admin: 08/03/17 10:54 Dose: Not Given Senna (Senna -) 2 tab PO HS [facility] Last Admin: 08/02/17 21:14 Dose: Not Given - Objective Vital Signs: Vital Signs Temperature 97.6 F 08/03/17 10:00 Pulse Rate 65 08/03/17 10:00 Respiratory Rate 18 08/03/17 10:00 Blood Pressure 124/73 08/03/17 10:00 O2 Sat by Pulse Oximetry (%) 96 08/03/17 08:59 Constitutional: Yes: Well Nourished, No Distress, Calm Eyes: Yes: Conjunctiva Clear, EOM Intact HENT: Yes: Atraumatic, Normocephalic Gastrointestinal: Yes: Distention (firmly), Palpable Mass (stool burden). No: Tenderness (T6 paraplegic) ...Rectal Exam: Yes: Other (manually disimpacted for 25 mins of some very soft brown stool, no overall impact on massive stool burden) Genitourinary: Yes: Pelaez Present. No: Hematuria Musculoskeletal: Yes: Joint Stiffness (hips, knees), Other (T6 paraplegia) Extremities: Yes: External Rotation (hips). No: Cool, Cyanosis Integumentary: Yes: Pressure Ulcer (multiple sacral), Other (small pink spot at site of previous spontaneous drainage of L flank abscess, no drainage, no cellulitis/erythema) Wound/Incision: Yes: Dressing Dry and Intact (sacral dressings). No: Dressing Removed Neurological: Yes: Alert, Oriented, Pre-Existing Deficit (T6 paraplegia) Labs: no new labs Problem List - Problems (1) Retroperitoneal fluid collection Assessment/Plan: left retroperitoneal urine-based fluid collection/abscess, extending outward to left hip/flank area, with associated cellulitis of left hip/flank s/p IR drain in retroperitoneal collection, mostly serous drainage erythema over left hip/flank resolved Code(s): R18.8 - OTHER ASCITES (2) Cellulitis of flank Assessment/Plan: left side resolved Code(s): L03.312 - CELLULITIS OF BACK [ANY PART EXCEPT BUTTOCK] (3) Cellulitis of hip, left Code(s): L03.116 - CELLULITIS OF LEFT LOWER LIMB (4) Obstruction of urinary stent Assessment/Plan: urology has seen needs ureteral stents exchanged at risk for more fluid in retroperitoneum after cystoscopy with fluid introduction under pressure may be best done while IR drain in place to evacuate any leakage from kidney into retroperitoneal space Code(s): T83.89XA - OTH COMPLICATION OF GENITOURINARY PROSTH DEV/GRFT, INIT Qualifiers: Encounter type: sequela Qualified Code(s): T83.89XS - Other specified complication of genitourinary prosthetic devices, implants and grafts, sequela (5) Bilateral hydronephrosis Code(s): N13.30 - UNSPECIFIED HYDRONEPHROSIS (6) Other specified disorders of kidney and ureter Code(s): N28.89 - OTHER SPECIFIED DISORDERS OF KIDNEY AND URETER (7) Chronic indwelling Pelaez catheter Assessment/Plan: needs Pelaez changed - seen by Dr. Oro with plan for same Code(s): Z92.89 - PERSONAL HISTORY OF OTHER MEDICAL TREATMENT (8) Fecal impaction of colon Assessment/Plan: chronic problem secondary to Hirschsprung's compounded by neurogenic bowel manually disimpacted (25 mins) small to moderate amount of very soft brown stool with little overall impact on stool burden would continue daily disimpaction of as much stool as possible while pt is in house and cannot do for self can be done by primary team, does not require surgical expertise may continue senna and oral motility agents, mag citrate or golytely might be of benefit - though without anorectal motility, little is likely to be effective enemas are unlikely to have much effect given consistency of stool and difficulty with accessing rectal vault given horizontal anal angle patient does not need further stool softeners - it is too soft to evacuate or disimpact easily as it is Code(s): K56.41 - FECAL IMPACTION (9) Other megacolon Code(s): K59.39 - OTHER MEGACOLON (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 Code(s): Q43.1 - HIRSCHSPRUNG'S DISEASE (11) Decubitus ulcer Code(s): L89.90 - PRESSURE ULCER OF UNSPECIFIED SITE, UNSPECIFIED STAGE Qualifiers: Pressure ulcer location: contiguous region involving back and buttock Pressure ulcer stage: unspecified pressure ulcer stage Laterality: unspecified laterality Qualified Code(s): L89.40 - Pressure ulcer of contiguous site of back, buttock and hip, unspecified stage (12) Neurogenic bladder Code(s): N31.9 - NEUROMUSCULAR DYSFUNCTION OF BLADDER, UNSPECIFIED (13) Paraplegia following spinal cord injury Code(s): G82.20 - PARAPLEGIA, UNSPECIFIED (14) Renal stones Code(s): N20.0 - CALCULUS OF KIDNEY (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
[2017-08-03] MEDS: SENNOSIDES 8.6MG TABLET (FP) PO SCH (23:45)
[2017-08-04] MEDS: MAG HYDROX/ALH/SMC/DPHA/LIDO 240 ML MOUTHWASH MM SCH ×5 (00:58→23:05)
[2017-08-04] MEDS ORDERED: PT OWN MED DRAWER 7, Y5N ONE ×6 (01:42→17:31)
[2017-08-04] MEDS: MEROPENEM 500 MG in DEXTROSE 5%-WATER 100 ML IVPB SCH ×3 (01:47→17:35)
[2017-08-04] MEDS: LINEZOLID 600 MG PREMIX BAG 600 MG/300 ML BAG IVPB SCH ×2 (02:47→14:09)
[2017-08-04] MEDS: MAGNESIUM HYDROX 2400MG/30ML ORAL SUSPENSION 30 ML CUP PO SCH ×3 (05:25→21:17)
[2017-08-04] MEDS: POLYETHYLENE GLYCOL 3350 119 GM BTL PO SCH ×2 (09:30→21:17)
[2017-08-04] MEDS: BISACODYL 5 MG TABLET.DR (FP) PO SCH (09:30)
[2017-08-04] MEDS: BACITRACIN 15 GM TUBE TOPICAL OINTMENT TP SCH (09:34)
--- NOTE | 2017-08-04 15:13 | PN ---
Progress Note, Physician Chief Complaint: ASLEEP COMFORTABLE NOTES REVIEWED - Current Medication List Current Medications: Active Medications Bacitracin (Bacitracin -) 1 applic TP DAILY [facility] Last Admin: 08/04/17 09:34 Dose: 1 applic Bisacodyl (Dulcolax -) 10 mg PO DAILY [facility] Last Admin: 08/04/17 09:30 Dose: Not Given Diphenhydramine HCl (Benadryl -) 50 mg PO HS PRN PRN Reason: INSOMNIA IV Flush (Picc Line Flush) 8 ml IVPUSH PRN PRN PRN Reason: Protocol Linezolid (Zyvox 600 Mg Premix Bag (Restricted To Id) -) 600 mg in 300 mls @ 300 mls/hr IVPB Q12H [facility] PRN Reason: Protocol Last Admin: 08/04/17 14:09 Dose: 300 mls/hr Meropenem 500 mg/ Dextrose 100 mls @ 200 mls/hr IVPB Q8H-IV [facility] Last Admin: 08/04/17 09:29 Dose: 200 mls/hr Lidocaine/Aluminum/Magnesium/Simeth (Magic Mouthwash *Sjr Formula* -) 5 ml MM Q6HPO [facility] Last Admin: 08/04/17 13:12 Dose: Not Given Magnesium Hydroxide (Milk Of Magnesia -) 30 ml PO TID [facility] Last Admin: 08/04/17 13:41 Dose: Not Given Mineral Oil (Fleet Mineral Oil Rectal Enema -) 133 ml RC DAILY PRN PRN Reason: CONSTIPATION Polyethylene Glycol (Miralax (For Daily Use) -) 17 gm PO BID [facility] Last Admin: 08/04/17 09:30 Dose: Not Given Senna (Senna -) 2 tab PO HS [facility] Last Admin: 08/03/17 23:45 Dose: Not Given - Objective Vital Signs: Vital Signs Temperature 97.7 F 08/04/17 14:06 Pulse Rate 58 L 08/04/17 14:06 Respiratory Rate 18 08/04/17 14:06 Blood Pressure 140/76 08/04/17 14:06 O2 Sat by Pulse Oximetry (%) 96 08/03/17 08:59 Constitutional: Yes: No Distress Eyes: Yes: WNL HENT: Yes: WNL Neck: Yes: WNL Cardiovascular: Yes: WNL Respiratory: Yes: WNL Gastrointestinal: Yes: Distention Genitourinary: Yes: Pelaez Present Musculoskeletal: Yes: Muscle Weakness Extremities: Yes: Deformity Edema: No Peripheral Pulses WNL: Yes Integumentary: Yes: Pressure Ulcer Wound/Incision: Yes: Dressing Dry and Intact, Unapproximated Neurological: Yes: Pre-Existing Deficit, Weakness ...Motor Strength: LLE, RLE Labs: CBC, BMP 08/01/17 07:45 08/01/17 07:45 INR, PTT INR 1.34 (0.82-1.09) H 07/23/17 16:10 Problem List - Problems (1) Abscess Code(s): L02.91 - CUTANEOUS ABSCESS, UNSPECIFIED (2) Bilateral hydronephrosis Code(s): N13.30 - UNSPECIFIED HYDRONEPHROSIS (3) Cellulitis of flank Code(s): L03.312 - CELLULITIS OF BACK [ANY PART EXCEPT BUTTOCK] (4) Obstruction of urinary stent Code(s): T83.89XA - OTH COMPLICATION OF GENITOURINARY PROSTH DEV/GRFT, INIT Qualifiers: Encounter type: sequela Qualified Code(s): T83.89XS - Other specified complication of genitourinary prosthetic devices, implants and grafts, sequela (5) Retroperitoneal fluid collection Code(s): R18.8 - OTHER ASCITES (6) Anemia Code(s): D64.9 - ANEMIA, UNSPECIFIED Qualifiers: Anemia type: iron deficiency Other causes of anemia: due to other specified chronic disease (7) Chronic indwelling Pelaez catheter Code(s): Z92.89 - PERSONAL HISTORY OF OTHER MEDICAL TREATMENT (8) Decubitus ulcer Code(s): L89.90 - PRESSURE ULCER OF UNSPECIFIED SITE, UNSPECIFIED STAGE Qualifiers: Pressure ulcer location: contiguous region involving back and buttock Pressure ulcer stage: unspecified pressure ulcer stage Laterality: unspecified laterality Qualified Code(s): L89.40 - Pressure ulcer of contiguous site of back, buttock and hip, unspecified stage (9) Fecal impaction in rectum Code(s): K56.41 - FECAL IMPACTION (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 Code(s): Z16.35 - RESISTANCE TO MULTIPLE ANTIMICROBIAL DRUGS (11) Megacolon Code(s): K59.3 - MEGACOLON, NOT ELSEWHERE CLASSIFIED * DO NOT USE * (12) Neurogenic bladder Code(s): N31.9 - NEUROMUSCULAR DYSFUNCTION OF BLADDER, UNSPECIFIED (13) Neurogenic bowel Code(s): K59.2 - NEUROGENIC BOWEL, NOT ELSEWHERE CLASSIFIED (14) Paraplegia following spinal cord injury Code(s): G82.20 - PARAPLEGIA, UNSPECIFIED (15) Weakness Code(s): R53.1 - WEAKNESS Assessment/Plan IV ABX PER ID NOW ON LINEZOLID/MERIPENOM UROLOGY F/U FOR URINARY OBSTRUCTION INTRAABD ABSCESS NEED IR/SURGERY F/U WOUND CARE STAGE4 AND UNSTAGEABLE ULCERS TO BACK PAIN CONTROL PRN
[2017-08-04] MEDS: MINERAL OIL ENEMA 133 ML ENEMA RC PRN (18:30)
[2017-08-04] MEDS: SENNOSIDES 8.6MG TABLET (FP) PO SCH (21:17)
[2017-08-05] MEDS ORDERED: PT OWN MED DRAWER 7, Y5N ONE ×2 (02:26→17:24)
[2017-08-05] MEDS: MEROPENEM 500 MG in DEXTROSE 5%-WATER 100 ML IVPB SCH ×3 (02:28→18:19)
[2017-08-05] MEDS: LINEZOLID 600 MG PREMIX BAG 600 MG/300 ML BAG IVPB SCH ×2 (02:29→14:16)
[2017-08-05] MEDS: MAG HYDROX/ALH/SMC/DPHA/LIDO 240 ML MOUTHWASH MM SCH ×4 (06:38→23:10)
[2017-08-05] MEDS: MAGNESIUM HYDROX 2400MG/30ML ORAL SUSPENSION 30 ML CUP PO SCH ×3 (06:38→21:59)
[2017-08-05 07:36] LABS: BASO % 0.7 % (0-2.0); EOS % 2.7 % (0-4.5); HEMATOCRIT 36.9 % (35.4-49); HEMOGLOBIN 11.8 GM/dL (11.7-16.9); MCH 26.6 pg (25.7-33.7); MCHC 31.9 g/dl (32.0-35.9); MEAN CELL VOLUME 83.4 fl (80-96); MEAN PLT VOLUME 8.4 fl (7.5-11.1); MONO % 5.4 % (3.8-10.2); NEUT % 73.2 % (42.8-82.8); PLATELET COUNT 206 K/MM3 (134-434); RBC 4.43 M/mm3 (4.00-5.60); RDW 18.3 % (11.9-15.9); WHITE BLOOD COUNT 7.1 K/mm3 (4.0-10.0)
[2017-08-05 07:48] LABS: ANION GAP 7 (8-16); BLOOD UREA NITROGEN 27 mg/dL (7-18); CALCIUM 8.5 mg/dL (8.5-10.1); CHLORIDE 105 mmol/L (98-107); CO2 29 mmol/L (21-32); CREATININE 0.8 mg/dL (0.7-1.3); GLUCOSE,RANDOM 72 mg/dL (74-106); SODIUM 141 mmol/L (136-145)
[2017-08-05] MEDS: BISACODYL 5 MG TABLET.DR (FP) PO SCH (10:08)
[2017-08-05] MEDS: POLYETHYLENE GLYCOL 3350 119 GM BTL PO SCH ×2 (10:09→21:23)
--- NOTE | 2017-08-05 10:59 | PN ---
Progress Note, Physician Chief Complaint: C/O CONSTIPATION NAUSEA POOR APPETITE - Current Medication List Current Medications: Active Medications Bacitracin (Bacitracin -) 1 applic TP DAILY [facility] Last Admin: 08/04/17 09:34 Dose: 1 applic Bisacodyl (Dulcolax -) 10 mg PO DAILY [facility] Last Admin: 08/05/17 10:08 Dose: Not Given Diphenhydramine HCl (Benadryl -) 50 mg PO HS PRN PRN Reason: INSOMNIA IV Flush (Picc Line Flush) 8 ml IVPUSH PRN PRN PRN Reason: Protocol Linezolid (Zyvox 600 Mg Premix Bag (Restricted To Id) -) 600 mg in 300 mls @ 300 mls/hr IVPB Q12H [facility]; Protocol Last Admin: 08/05/17 02:29 Dose: 300 mls/hr Meropenem 500 mg/ Dextrose 100 mls @ 200 mls/hr IVPB Q8H-IV [facility] Last Admin: 08/05/17 10:29 Dose: 200 mls/hr Lidocaine/Aluminum/Magnesium/Simeth (Magic Mouthwash *Sjr Formula* -) 5 ml MM Q6HPO [facility] Last Admin: 08/05/17 06:38 Dose: Not Given Magnesium Hydroxide (Milk Of Magnesia -) 30 ml PO TID [facility] Last Admin: 08/05/17 06:38 Dose: Not Given Mineral Oil (Fleet Mineral Oil Rectal Enema -) 133 ml RC DAILY PRN PRN Reason: CONSTIPATION Last Admin: 08/04/17 18:30 Dose: 133 ml Polyethylene Glycol (Miralax (For Daily Use) -) 17 gm PO BID [facility] Last Admin: 08/05/17 10:09 Dose: Not Given Senna (Senna -) 2 tab PO HS [facility] Last Admin: 08/04/17 21:17 Dose: Not Given - Objective Vital Signs: Vital Signs Temperature 97.6 F 08/04/17 22:00 Pulse Rate 71 08/04/17 22:00 Respiratory Rate 18 08/04/17 22:00 Blood Pressure 114/73 08/04/17 22:00 O2 Sat by Pulse Oximetry (%) 96 08/03/17 08:59 Constitutional: Yes: Mild Distress Eyes: Yes: WNL HENT: Yes: WNL Neck: Yes: WNL Cardiovascular: Yes: WNL Respiratory: Yes: WNL Gastrointestinal: Yes: Distention Genitourinary: Yes: Pelaez Present Musculoskeletal: Yes: Muscle Weakness Extremities: Yes: Deformity Edema: No Peripheral Pulses WNL: Yes Integumentary: Yes: Pressure Ulcer (STAGE 4 UNSTAGEABLE SACRAL/BACK) Wound/Incision: Yes: Dressing Dry and Intact, Unapproximated Neurological: Yes: Pre-Existing Deficit ...Motor Strength: LLE, RLE Psychiatric: Yes: Other Labs: CBC, BMP 08/05/17 06:20 08/05/17 06:20 INR, PTT INR 1.34 (0.82-1.09) H 07/23/17 16:10 Problem List - Problems (1) Abscess Code(s): L02.91 - CUTANEOUS ABSCESS, UNSPECIFIED (2) Bilateral hydronephrosis Code(s): N13.30 - UNSPECIFIED HYDRONEPHROSIS (3) Cellulitis of flank Code(s): L03.312 - CELLULITIS OF BACK [ANY PART EXCEPT BUTTOCK] (4) Obstruction of urinary stent Code(s): T83.89XA - OTH COMPLICATION OF GENITOURINARY PROSTH DEV/GRFT, INIT Qualifiers: Encounter type: sequela Qualified Code(s): T83.89XS - Other specified complication of genitourinary prosthetic devices, implants and grafts, sequela (5) Retroperitoneal fluid collection Code(s): R18.8 - OTHER ASCITES (6) Anemia Code(s): D64.9 - ANEMIA, UNSPECIFIED Qualifiers: Anemia type: iron deficiency Other causes of anemia: due to other specified chronic disease (7) Chronic indwelling Pelaez catheter Code(s): Z92.89 - PERSONAL HISTORY OF OTHER MEDICAL TREATMENT (8) Decubitus ulcer Code(s): L89.90 - PRESSURE ULCER OF UNSPECIFIED SITE, UNSPECIFIED STAGE Qualifiers: Pressure ulcer location: contiguous region involving back and buttock Pressure ulcer stage: unspecified pressure ulcer stage Laterality: unspecified laterality Qualified Code(s): L89.40 - Pressure ulcer of contiguous site of back, buttock and hip, unspecified stage (9) Fecal impaction in rectum Code(s): K56.41 - FECAL IMPACTION (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 Code(s): Z16.35 - RESISTANCE TO MULTIPLE ANTIMICROBIAL DRUGS (11) Megacolon Code(s): K59.3 - MEGACOLON, NOT ELSEWHERE CLASSIFIED * DO NOT USE * (12) Neurogenic bladder Code(s): N31.9 - NEUROMUSCULAR DYSFUNCTION OF BLADDER, UNSPECIFIED (13) Neurogenic bowel Code(s): K59.2 - NEUROGENIC BOWEL, NOT ELSEWHERE CLASSIFIED (14) Paraplegia following spinal cord injury Code(s): G82.20 - PARAPLEGIA, UNSPECIFIED (15) Weakness Code(s): R53.1 - WEAKNESS Assessment/Plan IV ABX PER ID NOW ON LINEZOLID/MERIPENOM UROLOGY F/U FOR URINARY OBSTRUCTION I SPOKE WITH UROLOGY OFFICE INTRA ABD ABSCESS NEED IR/SURGERY F/U WOUND CARE STAGE4 AND UNSTAGEABLE ULCERS TO BACK PAIN CONTROL PRN
[2017-08-05] MEDS: MINERAL OIL ENEMA 133 ML ENEMA RC PRN (11:14)
[2017-08-05] MEDS: BACITRACIN 15 GM TUBE TOPICAL OINTMENT TP SCH (13:34)
--- NOTE | 2017-08-05 14:07 | PN ---
Progress Note (short form) - Note Progress Note: FU for multiple Grade IV decubitii....maintenance therapy/maintained on regular dressings using mild anti-septic /anti-bacterial wound care NSS + Betadine diluted solution ) 5:1 rations Change as needed and after soilage Wounds inspected, All decubtitii : Covered with thin layer of fibrinous tissue, skin edges rolled over, no erythema, minimla drainage, no odor Size has decreased over several years No plan of surgical closure for various facotrs Patients is stable with these wound Selected Entries 08/04/17 08/04/17 08/05/17 14:06 22:00 09:00 Temperature 97.6 F Pulse Rate 58 L Respiratory 18 Rate Blood Pressure 114/73 Laboratory Tests 08/05/17 06:20 WBC 7.1 Hgb 11.8 Hct 36.9 Plan : Diluted Betadine + NSS 1:5 ratio soaked 4x4 apply as needed Pressure relief Nutrition support and maintenance Control of Infection UTI Post discharge FU IN Wound clinic
[2017-08-05] MEDS: SENNOSIDES 8.6MG TABLET (FP) PO SCH (21:23)
[2017-08-06] MEDS ORDERED: PT OWN MED DRAWER 7, Y5N ONE (01:13)
[2017-08-06] MEDS: MEROPENEM 500 MG in DEXTROSE 5%-WATER 100 ML IVPB SCH ×3 (01:16→18:10)
[2017-08-06] MEDS: LINEZOLID 600 MG PREMIX BAG 600 MG/300 ML BAG IVPB SCH ×2 (01:53→16:50)
[2017-08-06] MEDS: MAGNESIUM HYDROX 2400MG/30ML ORAL SUSPENSION 30 ML CUP PO SCH ×3 (05:02→21:26)
[2017-08-06] MEDS: MAG HYDROX/ALH/SMC/DPHA/LIDO 240 ML MOUTHWASH MM SCH ×3 (05:02→18:10)
[2017-08-06] MEDS: BISACODYL 5 MG TABLET.DR (FP) PO SCH (11:09)
[2017-08-06] MEDS: BACITRACIN 15 GM TUBE TOPICAL OINTMENT TP SCH (11:09)
[2017-08-06] MEDS: POLYETHYLENE GLYCOL 3350 119 GM BTL PO SCH ×2 (14:14→21:26)
[2017-08-06] MEDS ORDERED: TRIPLE LUMEN FLUSH 4 ML ML IVPUSH PRN (14:57)
[2017-08-06] MEDS: SENNOSIDES 8.6MG TABLET (FP) PO SCH (21:26)
--- NOTE | 2017-08-06 22:07 | PN ---
Progress Note, Physician Chief Complaint: Left hip abscess History of Present Illness: NAD Multiple pressure ulcers, to be cleaned with betadine and covered with abd pads. Indwelling hull catheter YA left hip Hull leaking- to be changed by Urology - Current Medication List Current Medications: Active Medications Bacitracin (Bacitracin -) 1 applic TP DAILY [facility] Last Admin: 08/06/17 11:09 Dose: 1 applic Bisacodyl (Dulcolax -) 10 mg PO DAILY [facility] Last Admin: 08/06/17 11:09 Dose: 10 mg Diphenhydramine HCl (Benadryl -) 50 mg PO HS PRN PRN Reason: INSOMNIA IV Flush (Picc Line Flush) 8 ml IVPUSH PRN PRN PRN Reason: Protocol IV Flush (Triple Lumen Flush) 4 ml IVPUSH PRN PRN PRN Reason: Protocol Linezolid (Zyvox 600 Mg Premix Bag (Restricted To Id) -) 600 mg in 300 mls @ 300 mls/hr IVPB Q12H [facility]; Protocol Last Admin: 08/06/17 16:50 Dose: 300 mls/hr Meropenem 500 mg/ Dextrose 100 mls @ 200 mls/hr IVPB Q8H-IV [facility] Last Admin: 08/06/17 18:10 Dose: 200 mls/hr Lidocaine/Aluminum/Magnesium/Simeth (Magic Mouthwash *Sjr Formula* -) 5 ml MM Q6HPO [facility] Last Admin: 08/06/17 18:10 Dose: Not Given Magnesium Hydroxide (Milk Of Magnesia -) 30 ml PO TID [facility] Last Admin: 08/06/17 21:26 Dose: Not Given Mineral Oil (Fleet Mineral Oil Rectal Enema -) 133 ml RC DAILY PRN PRN Reason: CONSTIPATION Last Admin: 08/05/17 11:14 Dose: 133 ml Polyethylene Glycol (Miralax (For Daily Use) -) 17 gm PO BID [facility] Last Admin: 08/06/17 21:26 Dose: Not Given Senna (Senna -) 2 tab PO HS [facility] Last Admin: 08/06/17 21:26 Dose: Not Given - Objective Vital Signs: Vital Signs Temperature 97.7 F 08/06/17 13:50 Pulse Rate 74 08/06/17 13:50 Respiratory Rate 18 08/06/17 20:41 Blood Pressure 93/64 08/06/17 13:50 O2 Sat by Pulse Oximetry (%) 96 08/03/17 08:59 Constitutional: Yes: Well Nourished, No Distress, Calm Cardiovascular: Yes: Regular Rate and Rhythm Respiratory: Yes: Regular Gastrointestinal: Yes: Hypoactive Bowel Sounds Edema: No Peripheral Pulses WNL: Yes Neurological: Yes: Alert, Oriented Psychiatric: Yes: Alert, Oriented Labs: CBC, BMP 08/05/17 06:20 08/05/17 06:20 INR, PTT INR 1.34 (0.82-1.09) H 07/23/17 16:10 Problem List - Problems (1) Retroperitoneal fluid collection Assessment/Plan: -IR consult -YA drain -chronic due to urinary leak from kidneys because of renal stones and stents Code(s): R18.8 - OTHER ASCITES (2) Bilateral nephrolithiasis Assessment/Plan: chronic staghorn calculus, followed by urology Code(s): N20.0 - CALCULUS OF KIDNEY (3) Chronic indwelling Hull catheter Assessment/Plan: 2/2 to chronic neurogenic bladder -Hull to be changed prior to discharge -Also has BL stents that need to be replaced Code(s): Z92.89 - PERSONAL HISTORY OF OTHER MEDICAL TREATMENT (4) Constipation due to neurogenic bowel Assessment/Plan: -chronic -laxatives -daily disimpaction by nursing Code(s): K59.00 - CONSTIPATION, UNSPECIFIED (5) Decubitus ulcer Assessment/Plan: seen by Dr Verdugo -clean with saline and betadine -abd dressing Code(s): L89.90 - PRESSURE ULCER OF UNSPECIFIED SITE, UNSPECIFIED STAGE Qualifiers: Pressure ulcer location: contiguous region involving back and buttock Pressure ulcer stage: unspecified pressure ulcer stage Laterality: unspecified laterality Qualified Code(s): L89.40 - Pressure ulcer of contiguous site of back, buttock and hip, unspecified stage (6) Effusion of hip Code(s): M25.459 - EFFUSION, UNSPECIFIED HIP Qualifiers: Laterality: left Qualified Code(s): M25.452 - Effusion, left hip (7) Hirschsprung disease of rectosigmoid region Code(s): Q43.1 - HIRSCHSPRUNG'S DISEASE (8) Leukocytosis Assessment/Plan: -improved -monitor labs Code(s): D72.829 - ELEVATED WHITE BLOOD CELL COUNT, UNSPECIFIED Assessment/Plan see problem list DVT prophylaxis
[2017-08-07] MEDS ORDERED: PT OWN MED DRAWER 7, Y5N ONE ×3 (01:33→17:07)
[2017-08-07] MEDS: MEROPENEM 500 MG in DEXTROSE 5%-WATER 100 ML IVPB SCH ×3 (01:35→17:10)
[2017-08-07] MEDS: LINEZOLID 600 MG PREMIX BAG 600 MG/300 ML BAG IVPB SCH ×2 (02:09→13:48)
[2017-08-07] MEDS: MAG HYDROX/ALH/SMC/DPHA/LIDO 240 ML MOUTHWASH MM SCH ×4 (05:10→17:10)
[2017-08-07] MEDS: MAGNESIUM HYDROX 2400MG/30ML ORAL SUSPENSION 30 ML CUP PO SCH ×3 (05:10→21:39)
[2017-08-07] MEDS: BACITRACIN 15 GM TUBE TOPICAL OINTMENT TP SCH (09:38)
[2017-08-07] MEDS: POLYETHYLENE GLYCOL 3350 119 GM BTL PO SCH ×2 (09:39→21:39)
[2017-08-07] MEDS: BISACODYL 5 MG TABLET.DR (FP) PO SCH (09:39)
--- NOTE | 2017-08-07 10:44 | PN ---
Progress Note, Physician Chief Complaint: AWAKE ALERT C/O ABD DISTENTION - Current Medication List Current Medications: Active Medications Bacitracin (Bacitracin -) 1 applic TP DAILY [facility] Last Admin: 08/07/17 09:38 Dose: 1 applic Bisacodyl (Dulcolax -) 10 mg PO DAILY [facility] Last Admin: 08/07/17 09:39 Dose: Not Given Diphenhydramine HCl (Benadryl -) 50 mg PO HS PRN PRN Reason: INSOMNIA IV Flush (Picc Line Flush) 8 ml IVPUSH PRN PRN PRN Reason: Protocol IV Flush (Triple Lumen Flush) 4 ml IVPUSH PRN PRN PRN Reason: Protocol Linezolid (Zyvox 600 Mg Premix Bag (Restricted To Id) -) 600 mg in 300 mls @ 300 mls/hr IVPB Q12H [facility]; Protocol Last Admin: 08/07/17 02:09 Dose: 300 mls/hr Meropenem 500 mg/ Dextrose 100 mls @ 200 mls/hr IVPB Q8H-IV [facility] Last Admin: 08/07/17 09:33 Dose: 200 mls/hr Lidocaine/Aluminum/Magnesium/Simeth (Magic Mouthwash *Sjr Formula* -) 5 ml MM Q6HPO [facility] Last Admin: 08/07/17 05:10 Dose: Not Given Magnesium Hydroxide (Milk Of Magnesia -) 30 ml PO TID [facility] Last Admin: 08/07/17 05:10 Dose: Not Given Mineral Oil (Fleet Mineral Oil Rectal Enema -) 133 ml RC DAILY PRN PRN Reason: CONSTIPATION Last Admin: 08/05/17 11:14 Dose: 133 ml Polyethylene Glycol (Miralax (For Daily Use) -) 17 gm PO BID [facility] Last Admin: 08/07/17 09:39 Dose: Not Given Senna (Senna -) 2 tab PO HS [facility] Last Admin: 08/06/17 21:26 Dose: Not Given - Objective Vital Signs: Vital Signs Temperature 98.7 F 08/07/17 10:00 Pulse Rate 72 08/07/17 10:00 Respiratory Rate 18 08/07/17 10:00 Blood Pressure 111/66 08/07/17 10:00 O2 Sat by Pulse Oximetry (%) 96 08/03/17 08:59 Constitutional: Yes: Mild Distress Eyes: Yes: WNL HENT: Yes: WNL Neck: Yes: WNL Cardiovascular: Yes: WNL Respiratory: Yes: WNL Gastrointestinal: Yes: Distention Genitourinary: Yes: Pelaez Present Musculoskeletal: Yes: Muscle Weakness Extremities: Yes: Deformity Edema: No Peripheral Pulses WNL: Yes Integumentary: Yes: Pressure Ulcer Wound/Incision: Yes: Dressing Dry and Intact Neurological: Yes: Loss of Sensation, Pre-Existing Deficit, Weakness ...Motor Strength: LLE, RLE Psychiatric: Yes: Other Labs: CBC, BMP 08/05/17 06:20 08/05/17 06:20 INR, PTT INR 1.34 (0.82-1.09) H 07/23/17 16:10 Problem List - Problems (1) Abscess Code(s): L02.91 - CUTANEOUS ABSCESS, UNSPECIFIED (2) Bilateral hydronephrosis Code(s): N13.30 - UNSPECIFIED HYDRONEPHROSIS (3) Cellulitis of flank Code(s): L03.312 - CELLULITIS OF BACK [ANY PART EXCEPT BUTTOCK] (4) Obstruction of urinary stent Code(s): T83.89XA - OTH COMPLICATION OF GENITOURINARY PROSTH DEV/GRFT, INIT Qualifiers: Encounter type: sequela Qualified Code(s): T83.89XS - Other specified complication of genitourinary prosthetic devices, implants and grafts, sequela (5) Retroperitoneal fluid collection Code(s): R18.8 - OTHER ASCITES (6) Anemia Code(s): D64.9 - ANEMIA, UNSPECIFIED Qualifiers: Anemia type: iron deficiency Other causes of anemia: due to other specified chronic disease (7) Chronic indwelling Pelaez catheter Code(s): Z92.89 - PERSONAL HISTORY OF OTHER MEDICAL TREATMENT (8) Decubitus ulcer Code(s): L89.90 - PRESSURE ULCER OF UNSPECIFIED SITE, UNSPECIFIED STAGE Qualifiers: Pressure ulcer location: contiguous region involving back and buttock Pressure ulcer stage: unspecified pressure ulcer stage Laterality: unspecified laterality Qualified Code(s): L89.40 - Pressure ulcer of contiguous site of back, buttock and hip, unspecified stage (9) Fecal impaction in rectum Code(s): K56.41 - FECAL IMPACTION (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 Code(s): Z16.35 - RESISTANCE TO MULTIPLE ANTIMICROBIAL DRUGS (11) Megacolon Code(s): K59.3 - MEGACOLON, NOT ELSEWHERE CLASSIFIED * DO NOT USE * (12) Neurogenic bladder Code(s): N31.9 - NEUROMUSCULAR DYSFUNCTION OF BLADDER, UNSPECIFIED (13) Neurogenic bowel Code(s): K59.2 - NEUROGENIC BOWEL, NOT ELSEWHERE CLASSIFIED (14) Paraplegia following spinal cord injury Code(s): G82.20 - PARAPLEGIA, UNSPECIFIED (15) Weakness Code(s): R53.1 - WEAKNESS Assessment/Plan SOAP SHELLEY ENEMA NEEDED IV ABX WOUND CARE PLASTIC SURGERY F/U APPRECIATED OFF LOAD WOUND, CHANGE POSITIONS WOUND CARE F/U
[2017-08-07] MEDS: SENNOSIDES 8.6MG TABLET (FP) PO SCH (21:39)
[2017-08-08] MEDS: MAG HYDROX/ALH/SMC/DPHA/LIDO 240 ML MOUTHWASH MM SCH ×5 (00:09→23:14)
[2017-08-08] MEDS ORDERED: PT OWN MED DRAWER 7, Y5N ONE ×3 (01:17→17:53)
[2017-08-08] MEDS: MEROPENEM 500 MG in DEXTROSE 5%-WATER 100 ML IVPB SCH ×3 (01:18→17:59)
[2017-08-08] MEDS: LINEZOLID 600 MG PREMIX BAG 600 MG/300 ML BAG IVPB SCH ×2 (02:26→13:40)
[2017-08-08] MEDS: MAGNESIUM HYDROX 2400MG/30ML ORAL SUSPENSION 30 ML CUP PO SCH ×3 (05:13→23:14)
[2017-08-08] MEDS: BISACODYL 5 MG TABLET.DR (FP) PO SCH (09:22)
[2017-08-08] MEDS: BACITRACIN 15 GM TUBE TOPICAL OINTMENT TP SCH (09:22)
[2017-08-08] MEDS: POLYETHYLENE GLYCOL 3350 119 GM BTL PO SCH ×2 (09:22→23:14)
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
[2017-08-08] MEDS: SENNOSIDES 8.6MG TABLET (FP) PO SCH (23:14)
[2017-08-09] MEDS ORDERED: PT OWN MED DRAWER 7, Y5N ONE ×3 (00:41→17:56)
[2017-08-09] MEDS: MEROPENEM 500 MG in DEXTROSE 5%-WATER 100 ML IVPB SCH ×3 (01:35→17:57)
[2017-08-09] MEDS: LINEZOLID 600 MG PREMIX BAG 600 MG/300 ML BAG IVPB SCH ×2 (03:32→14:03)
[2017-08-09] MEDS: MAG HYDROX/ALH/SMC/DPHA/LIDO 240 ML MOUTHWASH MM SCH ×3 (06:12→17:58)
[2017-08-09] MEDS: MAGNESIUM HYDROX 2400MG/30ML ORAL SUSPENSION 30 ML CUP PO SCH ×3 (06:12→22:19)
[2017-08-09 08:27] LABS: HEMATOCRIT 31.9 % (35.4-49); HEMOGLOBIN 10.1 GM/dL (11.7-16.9); MCH 26.3 pg (25.7-33.7); MCHC 31.7 g/dl (32.0-35.9); MEAN CELL VOLUME 82.9 fl (80-96); MEAN PLT VOLUME 8.2 fl (7.5-11.1); PLATELET COUNT 102 K/MM3 (134-434); RBC 3.85 M/mm3 (4.00-5.60); RDW 17.7 % (11.9-15.9)
[2017-08-09 09:01] LABS: ANION GAP 5 (8-16); BLOOD UREA NITROGEN 26 mg/dL (7-18); CHLORIDE 103 mmol/L (98-107); CO2 31 mmol/L (21-32); CREATININE 0.7 mg/dL (0.7-1.3); GLUCOSE,RANDOM 72 mg/dL (74-106); POTASSIUM 4.4 mmol/L (3.5-5.1); SODIUM 139 mmol/L (136-145)
[2017-08-09] MEDS: BACITRACIN 15 GM TUBE TOPICAL OINTMENT TP SCH (11:35)
[2017-08-09] MEDS: BISACODYL 5 MG TABLET.DR (FP) PO SCH (12:11)
[2017-08-09] MEDS: POLYETHYLENE GLYCOL 3350 119 GM BTL PO SCH ×2 (12:12→22:19)
--- NOTE | 2017-08-09 13:54 | PN ---
Progress Note, Physician History of Present Illness: Pt with left retroperitoneal abscess s/p IR drain and cellulitis (resolved) of left hip/flank Also with massive chronic fecal impaction. Nurses have been able to disimpact some at times, including earlier today. Had enemas few days ago with good results. AXR this am shows persistent massive impaction in megasigmoid. On antibiotics per ID for multiresistant organisms. Hydronephrosis with Pelaez and ureteral stents to be changed this week. Pending studies tomorrow ordered by Dr. Oro, per pt plan for OR possibly Thursday. IR drain with 20ml recorded yesterday, mostly serous, minimal in bulb. - Current Medication List Current Medications: Active Medications Bacitracin (Bacitracin -) 1 applic TP DAILY [facility] Last Admin: 08/09/17 11:35 Dose: 1 applic Bisacodyl (Dulcolax -) 10 mg PO DAILY [facility] Last Admin: 08/09/17 12:11 Dose: Not Given Diphenhydramine HCl (Benadryl -) 50 mg PO HS PRN PRN Reason: INSOMNIA IV Flush (Picc Line Flush) 8 ml IVPUSH PRN PRN PRN Reason: Protocol IV Flush (Triple Lumen Flush) 4 ml IVPUSH PRN PRN PRN Reason: Protocol Linezolid (Zyvox 600 Mg Premix Bag (Restricted To Id) -) 600 mg in 300 mls @ 300 mls/hr IVPB Q12H [facility]; Protocol Last Admin: 08/09/17 03:32 Dose: 300 mls/hr Meropenem 500 mg/ Dextrose 100 mls @ 200 mls/hr IVPB Q8H-IV [facility] Last Admin: 08/09/17 12:11 Dose: 200 mls/hr Lidocaine/Aluminum/Magnesium/Simeth (Magic Mouthwash *Sjr Formula* -) 5 ml MM Q6HPO [facility] Last Admin: 08/09/17 12:12 Dose: Not Given Magnesium Hydroxide (Milk Of Magnesia -) 30 ml PO TID [facility] Last Admin: 08/09/17 06:12 Dose: Not Given Mineral Oil (Fleet Mineral Oil Rectal Enema -) 133 ml RC DAILY PRN PRN Reason: CONSTIPATION Last Admin: 08/05/17 11:14 Dose: 133 ml Polyethylene Glycol (Miralax (For Daily Use) -) 17 gm PO BID [facility] Last Admin: 08/09/17 12:12 Dose: Not Given Senna (Senna -) 2 tab PO HS [facility] Last Admin: 08/08/17 23:14 Dose: Not Given - Objective Vital Signs: Vital Signs Temperature 97.8 F 08/09/17 10:00 Pulse Rate 70 08/09/17 10:00 Respiratory Rate 18 08/09/17 10:00 Blood Pressure 103/49 08/09/17 10:00 O2 Sat by Pulse Oximetry (%) 96 08/09/17 10:00 Constitutional: Yes: Well Nourished, No Distress, Calm Eyes: Yes: Conjunctiva Clear, EOM Intact HENT: Yes: Atraumatic, Normocephalic Gastrointestinal: Yes: Distention (firmly, soft in upper abdomen), Palpable Mass (stool burden). No: Tenderness (T6 paraplegic) ...Rectal Exam: Yes: Other (extremely soft stool, disimpacted for 30 minutes with little overall extracted but smears repeatedly, no overall impact on stool burden) Genitourinary: Yes: Pelaez Present. No: Hematuria Musculoskeletal: Yes: Joint Stiffness (knees and hips). No: Joint Swelling Extremities: Yes: External Rotation (hips). No: Cool, Cyanosis Integumentary: Yes: Pressure Ulcer (multiple sacral), Other (missing Stat-Lock replaced at IR drain site after chloraprep and skin prep used, covered with tegaderm). No: Rash Wound/Incision: Yes: Dressing Dry and Intact. No: Dressing Removed Neurological: Yes: Alert, Oriented, Pre-Existing Deficit (T6 paraplegia) Labs: CBC, BMP 08/09/17 07:55 08/09/17 07:55 - ....Imaging X-ray: Report Reviewed, Image Reviewed (image personally reviewed - continued massive stool impaction in megasigmoid, no significant change from prior studies , IR drain visible at left hip) Problem List - Problems (1) Retroperitoneal fluid collection Assessment/Plan: left retroperitoneal urine-based fluid collection/abscess, extending outward to left hip/flank area, with associated cellulitis of left hip/flank s/p IR drain in retroperitoneal collection, mostly serous drainage erythema over left hip/flank resolved Code(s): R18.8 - OTHER ASCITES (2) Cellulitis of flank Code(s): L03.312 - CELLULITIS OF BACK [ANY PART EXCEPT BUTTOCK] (3) Cellulitis of hip, left Code(s): L03.116 - CELLULITIS OF LEFT LOWER LIMB (4) Obstruction of urinary stent Assessment/Plan: urology has seen ureteral stents to be exchanged while IR drain in place to evacuate any leakage from kidney into retroperitoneal space, as pt is at risk for more fluid in retroperitoneum after any cystoscopy with fluid introduction under pressure Code(s): T83.89XA - OTH COMPLICATION OF GENITOURINARY PROSTH DEV/GRFT, INIT Qualifiers: Encounter type: sequela Qualified Code(s): T83.89XS - Other specified complication of genitourinary prosthetic devices, implants and grafts, sequela (5) Bilateral hydronephrosis Assessment/Plan: pending US, nuc med renal scan, Pelaez and stent changes Code(s): N13.30 - UNSPECIFIED HYDRONEPHROSIS (6) Other specified disorders of kidney and ureter Code(s): N28.89 - OTHER SPECIFIED DISORDERS OF KIDNEY AND URETER (7) Chronic indwelling Pelaez catheter Assessment/Plan: to be changed by Dr. Oro at OR Code(s): Z92.89 - PERSONAL HISTORY OF OTHER MEDICAL TREATMENT (8) Fecal impaction of colon Assessment/Plan: chronic problem secondary to Hirschsprung's compounded by neurogenic bowel manually disimpacted (30 mins) small amount of very, very soft brown stool with little overall impact on stool burden continue daily disimpaction of as much stool as possible while pt is in house and cannot do for self can be done by primary team, does not require surgical expertise may continue senna and oral motility agents, mag citrate or golytely might be of benefit - though without anorectal motility, little is likely to be effective enemas may be useful periodically - would use soap suds primarily, avoid mineral oil, as it only makes stool softer and greasier patient does not need further stool softeners - it is too soft to evacuate or disimpact easily as it is Code(s): K56.41 - FECAL IMPACTION (9) Other megacolon Code(s): K59.39 - OTHER MEGACOLON (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 Code(s): Q43.1 - HIRSCHSPRUNG'S DISEASE (11) Decubitus ulcer Code(s): L89.90 - PRESSURE ULCER OF UNSPECIFIED SITE, UNSPECIFIED STAGE Qualifiers: Pressure ulcer location: contiguous region involving back and buttock Pressure ulcer stage: unspecified pressure ulcer stage Laterality: unspecified laterality Qualified Code(s): L89.40 - Pressure ulcer of contiguous site of back, buttock and hip, unspecified stage (12) Neurogenic bladder Code(s): N31.9 - NEUROMUSCULAR DYSFUNCTION OF BLADDER, UNSPECIFIED (13) Paraplegia following spinal cord injury Code(s): G82.20 - PARAPLEGIA, UNSPECIFIED (14) Renal stones Code(s): N20.0 - CALCULUS OF KIDNEY (

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
[2017-08-09] MEDS: SENNOSIDES 8.6MG TABLET (FP) PO SCH (22:19)
[2017-08-10] MEDS: MAG HYDROX/ALH/SMC/DPHA/LIDO 240 ML MOUTHWASH MM SCH ×4 (00:15→18:43)
[2017-08-10] MEDS: MEROPENEM 500 MG in DEXTROSE 5%-WATER 100 ML IVPB SCH ×3 (01:41→17:17)
[2017-08-10] MEDS: LINEZOLID 600 MG PREMIX BAG 600 MG/300 ML BAG IVPB SCH ×2 (02:39→15:10)
[2017-08-10] MEDS: MAGNESIUM HYDROX 2400MG/30ML ORAL SUSPENSION 30 ML CUP PO SCH ×3 (06:02→21:22)
--- NOTE | 2017-08-10 08:38 | PN ---
Progress Note, Physician Chief Complaint: AWAKE ALERT EATING BREAKFAST C/O LEFT HIP IS HARD/RED - Current Medication List Current Medications: Active Medications Bacitracin (Bacitracin -) 1 applic TP DAILY [facility] Last Admin: 08/09/17 11:35 Dose: 1 applic Bisacodyl (Dulcolax -) 10 mg PO DAILY [facility] Last Admin: 08/09/17 12:11 Dose: Not Given Diphenhydramine HCl (Benadryl -) 50 mg PO HS PRN PRN Reason: INSOMNIA IV Flush (Picc Line Flush) 8 ml IVPUSH PRN PRN PRN Reason: Protocol IV Flush (Triple Lumen Flush) 4 ml IVPUSH PRN PRN PRN Reason: Protocol Linezolid (Zyvox 600 Mg Premix Bag (Restricted To Id) -) 600 mg in 300 mls @ 300 mls/hr IVPB Q12H [facility]; Protocol Last Admin: 08/10/17 02:39 Dose: 300 mls/hr Meropenem 500 mg/ Dextrose 100 mls @ 200 mls/hr IVPB Q8H-IV [facility] Last Admin: 08/10/17 01:41 Dose: 200 mls/hr Lidocaine/Aluminum/Magnesium/Simeth (Magic Mouthwash *Sjr Formula* -) 5 ml MM Q6HPO [facility] Last Admin: 08/10/17 06:02 Dose: Not Given Magnesium Hydroxide (Milk Of Magnesia -) 30 ml PO TID [facility] Last Admin: 08/10/17 06:02 Dose: Not Given Polyethylene Glycol (Miralax (For Daily Use) -) 17 gm PO BID [facility] Last Admin: 08/09/17 22:19 Dose: Not Given Senna (Senna -) 2 tab PO HS [facility] Last Admin: 08/09/17 22:19 Dose: Not Given - Objective Vital Signs: Vital Signs Temperature 97.6 F 08/09/17 22:23 Pulse Rate 73 08/09/17 22:23 Respiratory Rate 16 08/09/17 22:23 Blood Pressure 117/64 08/09/17 22:23 O2 Sat by Pulse Oximetry (%) 96 08/09/17 21:00 Constitutional: Yes: Mild Distress Eyes: Yes: WNL HENT: Yes: WNL Neck: Yes: WNL Cardiovascular: Yes: WNL Respiratory: Yes: WNL Gastrointestinal: Yes: Distention Genitourinary: Yes: Pelaez Present Musculoskeletal: Yes: Joint Swelling Extremities: Yes: Erythema Edema: No Peripheral Pulses WNL: Yes Integumentary: Yes: Erythema, Pressure Ulcer, Rash Wound/Incision: Yes: Dressing Dry and Intact, Dressing Removed, Other (LEFT HIP IS HOT, INDURATED, AND TENDER) Neurological: Yes: Pre-Existing Deficit ...Motor Strength: LLE, RLE Psychiatric: Yes: Other Labs: CBC, BMP 08/09/17 07:55 08/09/17 07:55 INR, PTT INR 1.34 (0.82-1.09) H 07/23/17 16:10 Problem List - Problems (1) Abscess Code(s): L02.91 - CUTANEOUS ABSCESS, UNSPECIFIED (2) Bilateral hydronephrosis Code(s): N13.30 - UNSPECIFIED HYDRONEPHROSIS (3) Cellulitis of flank Code(s): L03.312 - CELLULITIS OF BACK [ANY PART EXCEPT BUTTOCK] (4) Obstruction of urinary stent Code(s): T83.89XA - OTH COMPLICATION OF GENITOURINARY PROSTH DEV/GRFT, INIT Qualifiers: Encounter type: sequela Qualified Code(s): T83.89XS - Other specified complication of genitourinary prosthetic devices, implants and grafts, sequela (5) Retroperitoneal fluid collection Code(s): R18.8 - OTHER ASCITES (6) Anemia Code(s): D64.9 - ANEMIA, UNSPECIFIED Qualifiers: Anemia type: iron deficiency Other causes of anemia: due to other specified chronic disease (7) Chronic indwelling Pelaez catheter Code(s): Z92.89 - PERSONAL HISTORY OF OTHER MEDICAL TREATMENT (8) Decubitus ulcer Code(s): L89.90 - PRESSURE ULCER OF UNSPECIFIED SITE, UNSPECIFIED STAGE Qualifiers: Pressure ulcer location: contiguous region involving back and buttock Pressure ulcer stage: unspecified pressure ulcer stage Laterality: unspecified laterality Qualified Code(s): L89.40 - Pressure ulcer of contiguous site of back, buttock and hip, unspecified stage (9) Fecal impaction in rectum Code(s): K56.41 - FECAL IMPACTION (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 Code(s): Z16.35 - RESISTANCE TO MULTIPLE ANTIMICROBIAL DRUGS (11) Megacolon Code(s): K59.3 - MEGACOLON, NOT ELSEWHERE CLASSIFIED * DO NOT USE * (12) Neurogenic bladder Code(s): N31.9 - NEUROMUSCULAR DYSFUNCTION OF BLADDER, UNSPECIFIED (13) Neurogenic bowel Code(s): K59.2 - NEUROGENIC BOWEL, NOT ELSEWHERE CLASSIFIED (14) Paraplegia following spinal cord injury Code(s): G82.20 - PARAPLEGIA, UNSPECIFIED (15) Weakness Code(s): R53.1 - WEAKNESS Assessment/Plan LEFT HIP INDURATED/INFECTION/ABSCESS CHECK CT OF LEFT HIP/FLANK/ABD F/U FLUID COLLECTION / ABSCESS OTHER IV ABX PER ID WOUND CARE TO SACRAL ULCER CONTINUED ENEMA SOAP SHELLEY PRN
[2017-08-10] MEDS: BISACODYL 5 MG TABLET.DR (FP) PO SCH (11:10)
[2017-08-10] MEDS: BACITRACIN 15 GM TUBE TOPICAL OINTMENT TP SCH (11:11)
[2017-08-10] MEDS: POLYETHYLENE GLYCOL 3350 119 GM BTL PO SCH ×2 (11:11→21:22)
[2017-08-10] MEDS ORDERED: PT OWN MED DRAWER 7, Y5N ONE (17:02)
[2017-08-10] MEDS: SENNOSIDES 8.6MG TABLET (FP) PO SCH (21:22)
[2017-08-11] MEDS ORDERED: PT OWN MED DRAWER 7, Y5N ONE ×4 (00:42→17:14)
[2017-08-11] MEDS: MAG HYDROX/ALH/SMC/DPHA/LIDO 240 ML MOUTHWASH MM SCH ×4 (00:48→17:14)
[2017-08-11] MEDS: MEROPENEM 500 MG in DEXTROSE 5%-WATER 100 ML IVPB SCH ×3 (01:35→17:14)
[2017-08-11] MEDS: LINEZOLID 600 MG PREMIX BAG 600 MG/300 ML BAG IVPB SCH ×2 (01:47→14:26)
[2017-08-11] MEDS: MAGNESIUM HYDROX 2400MG/30ML ORAL SUSPENSION 30 ML CUP PO SCH ×3 (06:19→21:41)
[2017-08-11] MEDS: BACITRACIN 15 GM TUBE TOPICAL OINTMENT TP SCH (09:41)
[2017-08-11] MEDS: BISACODYL 5 MG TABLET.DR (FP) PO SCH (09:45)
[2017-08-11] MEDS: POLYETHYLENE GLYCOL 3350 119 GM BTL PO SCH ×2 (09:45→21:41)
--- NOTE | 2017-08-11 15:07 | PN ---
Progress Note, Physician Chief Complaint: S/P RENAL SCAN RESULTS PENDING - Current Medication List Current Medications: Active Medications Bacitracin (Bacitracin -) 1 applic TP DAILY [facility] Last Admin: 08/11/17 09:41 Dose: 1 applic Bisacodyl (Dulcolax -) 10 mg PO DAILY [facility] Last Admin: 08/11/17 09:45 Dose: Not Given Diphenhydramine HCl (Benadryl -) 50 mg PO HS PRN PRN Reason: INSOMNIA IV Flush (Picc Line Flush) 8 ml IVPUSH PRN PRN PRN Reason: Protocol IV Flush (Triple Lumen Flush) 4 ml IVPUSH PRN PRN PRN Reason: Protocol Linezolid (Zyvox 600 Mg Premix Bag (Restricted To Id) -) 600 mg in 300 mls @ 300 mls/hr IVPB Q12H [facility]; Protocol Last Admin: 08/11/17 14:26 Dose: 300 mls/hr Meropenem 500 mg/ Dextrose 100 mls @ 200 mls/hr IVPB Q8H-IV [facility] Last Admin: 08/11/17 09:34 Dose: 200 mls/hr Lidocaine/Aluminum/Magnesium/Simeth (Magic Mouthwash *Sjr Formula* -) 5 ml MM Q6HPO [facility] Last Admin: 08/11/17 13:11 Dose: Not Given Magnesium Hydroxide (Milk Of Magnesia -) 30 ml PO TID [facility] Last Admin: 08/11/17 06:19 Dose: Not Given Polyethylene Glycol (Miralax (For Daily Use) -) 17 gm PO BID [facility] Last Admin: 08/11/17 09:45 Dose: Not Given Senna (Senna -) 2 tab PO HS [facility] Last Admin: 08/10/17 21:22 Dose: Not Given - Objective Vital Signs: Vital Signs Temperature 98.1 F 08/11/17 10:00 Pulse Rate 79 08/11/17 10:00 Respiratory Rate 18 08/11/17 10:00 Blood Pressure 105/62 08/11/17 10:00 O2 Sat by Pulse Oximetry (%) 96 08/11/17 09:00 Constitutional: Yes: Mild Distress Eyes: Yes: WNL HENT: Yes: WNL Neck: Yes: WNL Cardiovascular: Yes: WNL Respiratory: Yes: WNL Gastrointestinal: Yes: WNL Genitourinary: Yes: Pelaez Present Musculoskeletal: Yes: Muscle Weakness Extremities: Yes: Other Edema: No Peripheral Pulses WNL: Yes Integumentary: Yes: WNL Wound/Incision: Yes: Clean/Dry Neurological: Yes: Pre-Existing Deficit ...Motor Strength: LLE, RLE Psychiatric: Yes: Other Labs: CBC, BMP 08/09/17 07:55 08/09/17 07:55 INR, PTT INR 1.34 (0.82-1.09) H 07/23/17 16:10 Problem List - Problems (1) Abscess Code(s): L02.91 - CUTANEOUS ABSCESS, UNSPECIFIED (2) Bilateral hydronephrosis Code(s): N13.30 - UNSPECIFIED HYDRONEPHROSIS (3) Cellulitis of flank Code(s): L03.312 - CELLULITIS OF BACK [ANY PART EXCEPT BUTTOCK] (4) Obstruction of urinary stent Code(s): T83.89XA - OTH COMPLICATION OF GENITOURINARY PROSTH DEV/GRFT, INIT Qualifiers: Encounter type: sequela Qualified Code(s): T83.89XS - Other specified complication of genitourinary prosthetic devices, implants and grafts, sequela (5) Retroperitoneal fluid collection Code(s): R18.8 - OTHER ASCITES (6) Anemia Code(s): D64.9 - ANEMIA, UNSPECIFIED Qualifiers: Anemia type: iron deficiency Other causes of anemia: due to other specified chronic disease (7) Chronic indwelling Pelaez catheter Code(s): Z92.89 - PERSONAL HISTORY OF OTHER MEDICAL TREATMENT (8) Decubitus ulcer Code(s): L89.90 - PRESSURE ULCER OF UNSPECIFIED SITE, UNSPECIFIED STAGE Qualifiers: Pressure ulcer location: contiguous region involving back and buttock Pressure ulcer stage: unspecified pressure ulcer stage Laterality: unspecified laterality Qualified Code(s): L89.40 - Pressure ulcer of contiguous site of back, buttock and hip, unspecified stage (9) Fecal impaction in rectum Code(s): K56.41 - FECAL IMPACTION (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 Code(s): Z16.35 - RESISTANCE TO MULTIPLE ANTIMICROBIAL DRUGS (11) Megacolon Code(s): K59.3 - MEGACOLON, NOT ELSEWHERE CLASSIFIED * DO NOT USE * (12) Neurogenic bladder Code(s): N31.9 - NEUROMUSCULAR DYSFUNCTION OF BLADDER, UNSPECIFIED (13) Neurogenic bowel Code(s): K59.2 - NEUROGENIC BOWEL, NOT ELSEWHERE CLASSIFIED (14) Paraplegia following spinal cord injury Code(s): G82.20 - PARAPLEGIA, UNSPECIFIED (15) Weakness Code(s): R53.1 - WEAKNESS Assessment/Plan LEFT HIP INDURATED/INFECTION/ABSCESS CT SCAN SHOWS NO FLUID COLLECTION LEFT HIP CHECK CT OF LEFT HIP/FLANK/ABD F/U FLUID COLLECTION / ABSCESS OTHER IV ABX PER ID WOUND CARE TO SACRAL ULCER CONTINUED ENEMA SOAP SHELLEY PRN
[2017-08-11] MEDS: SENNOSIDES 8.6MG TABLET (FP) PO SCH (21:41)
[2017-08-12] MEDS: MAG HYDROX/ALH/SMC/DPHA/LIDO 240 ML MOUTHWASH MM SCH ×4 (00:08→17:20)
[2017-08-12] MEDS ORDERED: PT OWN MED DRAWER 7, Y5N ONE ×3 (01:12→17:02)
[2017-08-12] MEDS: MEROPENEM 500 MG in DEXTROSE 5%-WATER 100 ML IVPB SCH ×3 (01:12→17:03)
[2017-08-12] MEDS: LINEZOLID 600 MG PREMIX BAG 600 MG/300 ML BAG IVPB SCH ×2 (02:51→15:54)
[2017-08-12] MEDS: MAGNESIUM HYDROX 2400MG/30ML ORAL SUSPENSION 30 ML CUP PO SCH ×3 (05:29→21:18)
[2017-08-12 07:18] LABS: HEMATOCRIT 32.9 % (35.4-49); HEMOGLOBIN 10.8 GM/dL (11.7-16.9); MCH 26.7 pg (25.7-33.7); MCHC 32.7 g/dl (32.0-35.9); MEAN CELL VOLUME 81.7 fl (80-96); MEAN PLT VOLUME 8.7 fl (7.5-11.1); PLATELET COUNT 79 K/MM3 (134-434); RBC 4.03 M/mm3 (4.00-5.60); RDW 17.6 % (11.9-15.9); WHITE BLOOD COUNT 5.6 K/mm3 (4.0-10.0)
[2017-08-12 07:47] LABS: CHLORIDE 101 mmol/L (98-107); POTASSIUM 4.2 mmol/L (3.5-5.1); SODIUM 138 mmol/L (136-145)
[2017-08-12 07:56] LABS: ANION GAP 7 (8-16); BLOOD UREA NITROGEN 25 mg/dL (7-18); CALCIUM 8.4 mg/dL (8.5-10.1); CO2 30 mmol/L (21-32); CREATININE 0.7 mg/dL (0.7-1.3); GLUCOSE,RANDOM 67 mg/dL (74-106)
[2017-08-12] MEDS: BISACODYL 5 MG TABLET.DR (FP) PO SCH (09:31)
[2017-08-12] MEDS: BACITRACIN 15 GM TUBE TOPICAL OINTMENT TP SCH (09:31)
[2017-08-12] MEDS: POLYETHYLENE GLYCOL 3350 119 GM BTL PO SCH ×2 (09:31→21:18)
--- NOTE | 2017-08-12 09:56 | PN ---
Progress Note, Physician Chief Complaint: PATIENT ASLEEP RENAL SCAN REVIEWED - Current Medication List Current Medications: Active Medications Bacitracin (Bacitracin -) 1 applic TP DAILY [facility] Last Admin: 08/12/17 09:31 Dose: 1 applic Bisacodyl (Dulcolax -) 10 mg PO DAILY [facility] Last Admin: 08/12/17 09:31 Dose: Not Given Diphenhydramine HCl (Benadryl -) 50 mg PO HS PRN PRN Reason: INSOMNIA IV Flush (Picc Line Flush) 8 ml IVPUSH PRN PRN PRN Reason: Protocol IV Flush (Triple Lumen Flush) 4 ml IVPUSH PRN PRN PRN Reason: Protocol Linezolid (Zyvox 600 Mg Premix Bag (Restricted To Id) -) 600 mg in 300 mls @ 300 mls/hr IVPB Q12H [facility]; Protocol Last Admin: 08/12/17 02:51 Dose: 300 mls/hr Meropenem 500 mg/ Dextrose 100 mls @ 200 mls/hr IVPB Q8H-IV [facility] Last Admin: 08/12/17 09:31 Dose: 200 mls/hr Lidocaine/Aluminum/Magnesium/Simeth (Magic Mouthwash *Sjr Formula* -) 5 ml MM Q6HPO [facility] Last Admin: 08/12/17 05:29 Dose: Not Given Magnesium Hydroxide (Milk Of Magnesia -) 30 ml PO TID [facility] Last Admin: 08/12/17 05:29 Dose: Not Given Polyethylene Glycol (Miralax (For Daily Use) -) 17 gm PO BID [facility] Last Admin: 08/12/17 09:31 Dose: Not Given Senna (Senna -) 2 tab PO HS [facility] Last Admin: 08/11/17 21:41 Dose: Not Given - Objective Vital Signs: Vital Signs Temperature 97.6 F 08/11/17 22:00 Pulse Rate 77 08/11/17 22:00 Respiratory Rate 20 08/11/17 22:00 Blood Pressure 99/60 08/11/17 22:00 O2 Sat by Pulse Oximetry (%) 96 08/11/17 21:00 Constitutional: Yes: No Distress Cardiovascular: Yes: WNL Respiratory: Yes: WNL Gastrointestinal: Yes: Distention Genitourinary: Yes: Pelaez Present Musculoskeletal: Yes: Muscle Weakness Extremities: Yes: Deformity Integumentary: Yes: Pressure Ulcer Wound/Incision: Yes: Dressing Dry and Intact, Other Neurological: Yes: Pre-Existing Deficit ...Motor Strength: LLE, RLE Labs: CBC, BMP 08/12/17 06:30 08/12/17 06:30 INR, PTT INR 1.34 (0.82-1.09) H 07/23/17 16:10 Problem List - Problems (1) Abscess Code(s): L02.91 - CUTANEOUS ABSCESS, UNSPECIFIED (2) Bilateral hydronephrosis Code(s): N13.30 - UNSPECIFIED HYDRONEPHROSIS (3) Cellulitis of flank Code(s): L03.312 - CELLULITIS OF BACK [ANY PART EXCEPT BUTTOCK] (4) Obstruction of urinary stent Code(s): T83.89XA - OTH COMPLICATION OF GENITOURINARY PROSTH DEV/GRFT, INIT Qualifiers: Encounter type: sequela Qualified Code(s): T83.89XS - Other specified complication of genitourinary prosthetic devices, implants and grafts, sequela (5) Retroperitoneal fluid collection Code(s): R18.8 - OTHER ASCITES (6) Anemia Code(s): D64.9 - ANEMIA, UNSPECIFIED Qualifiers: Anemia type: iron deficiency Other causes of anemia: due to other specified chronic disease (7) Chronic indwelling Pelaez catheter Code(s): Z92.89 - PERSONAL HISTORY OF OTHER MEDICAL TREATMENT (8) Decubitus ulcer Code(s): L89.90 - PRESSURE ULCER OF UNSPECIFIED SITE, UNSPECIFIED STAGE Qualifiers: Pressure ulcer location: contiguous region involving back and buttock Pressure ulcer stage: unspecified pressure ulcer stage Laterality: unspecified laterality Qualified Code(s): L89.40 - Pressure ulcer of contiguous site of back, buttock and hip, unspecified stage (9) Fecal impaction in rectum Code(s): K56.41 - FECAL IMPACTION (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 Code(s): Z16.35 - RESISTANCE TO MULTIPLE ANTIMICROBIAL DRUGS (11) Megacolon Code(s): K59.3 - MEGACOLON, NOT ELSEWHERE CLASSIFIED * DO NOT USE * (12) Neurogenic bladder Code(s): N31.9 - NEUROMUSCULAR DYSFUNCTION OF BLADDER, UNSPECIFIED (13) Neurogenic bowel Code(s): K59.2 - NEUROGENIC BOWEL, NOT ELSEWHERE CLASSIFIED (14) Paraplegia following spinal cord injury Code(s): G82.20 - PARAPLEGIA, UNSPECIFIED (15) Weakness Code(s): R53.1 - WEAKNESS Assessment/Plan RENAL SCAN REVIEWED NEPHROLOGY EVAL UROLOGY WORKUP IN PROGRESS IV ABX PER ID WOUND CARE SOPA SHELLEY ENEMAS
[2017-08-12] MEDS: SENNOSIDES 8.6MG TABLET (FP) PO SCH (21:18)
[2017-08-13] MEDS: MAG HYDROX/ALH/SMC/DPHA/LIDO 240 ML MOUTHWASH MM SCH ×4 (00:11→17:52)
[2017-08-13] MEDS ORDERED: PT OWN MED DRAWER 7, Y5N ONE ×2 (01:31→09:13)
[2017-08-13] MEDS: MEROPENEM 500 MG in DEXTROSE 5%-WATER 100 ML IVPB SCH ×3 (01:32→18:14)
[2017-08-13] MEDS: LINEZOLID 600 MG PREMIX BAG 600 MG/300 ML BAG IVPB SCH ×2 (03:00→16:09)
[2017-08-13] MEDS: MAGNESIUM HYDROX 2400MG/30ML ORAL SUSPENSION 30 ML CUP PO SCH ×3 (05:19→21:27)
--- NOTE | 2017-08-13 08:42 | PN ---
Progress Note, Physician - Current Medication List Current Medications: Active Medications Bacitracin (Bacitracin -) 1 applic TP DAILY [facility] Last Admin: 08/12/17 09:31 Dose: 1 applic Bisacodyl (Dulcolax -) 10 mg PO DAILY [facility] Last Admin: 08/12/17 09:31 Dose: Not Given Diphenhydramine HCl (Benadryl -) 50 mg PO HS PRN PRN Reason: INSOMNIA IV Flush (Picc Line Flush) 8 ml IVPUSH PRN PRN PRN Reason: Protocol IV Flush (Triple Lumen Flush) 4 ml IVPUSH PRN PRN PRN Reason: Protocol Linezolid (Zyvox 600 Mg Premix Bag (Restricted To Id) -) 600 mg in 300 mls @ 300 mls/hr IVPB Q12H [facility]; Protocol Last Admin: 08/13/17 03:00 Dose: 300 mls/hr Meropenem 500 mg/ Dextrose 100 mls @ 200 mls/hr IVPB Q8H-IV [facility] Last Admin: 08/13/17 01:32 Dose: 200 mls/hr Lidocaine/Aluminum/Magnesium/Simeth (Magic Mouthwash *Sjr Formula* -) 5 ml MM Q6HPO [facility] Last Admin: 08/13/17 05:19 Dose: Not Given Magnesium Hydroxide (Milk Of Magnesia -) 30 ml PO TID [facility] Last Admin: 08/13/17 05:19 Dose: Not Given Polyethylene Glycol (Miralax (For Daily Use) -) 17 gm PO BID [facility] Last Admin: 08/12/17 21:18 Dose: Not Given Senna (Senna -) 2 tab PO HS [facility] Last Admin: 08/12/17 21:18 Dose: Not Given - Objective Vital Signs: Vital Signs Temperature 97.7 F 08/12/17 22:00 Pulse Rate 73 08/12/17 22:00 Respiratory Rate 20 08/12/17 22:00 Blood Pressure 113/67 08/12/17 22:00 O2 Sat by Pulse Oximetry (%) 95 08/12/17 21:00 Cardiovascular: Yes: S1, S2 Respiratory: Yes: Regular, CTA Bilaterally Gastrointestinal: Yes: Normal Bowel Sounds, Soft Wound/Incision: Yes: Other (drain in place) Labs: CBC, BMP 08/12/17 06:30 08/12/17 06:30 INR, PTT INR 1.34 (0.82-1.09) H 07/23/17 16:10 Assessment/Plan - Problems (1) Retroperitoneal fluid collection Assessment/Plan: -IR consult -YA drain -chronic due to urinary leak from kidneys because of renal stones and stents Code(s): R18.8 - OTHER ASCITES (2) Bilateral nephrolithiasis Assessment/Plan: chronic staghorn calculus, followed by urology Has refused percutaneous nephrolithotomy that needs to be done at tertiary care center Code(s): N20.0 - CALCULUS OF KIDNEY (3) Chronic indwelling Pelaez catheter Assessment/Plan: 2/ to neurogenic bladder -Awaiting urology follow up for stent change Code(s): Z92.89 - PERSONAL HISTORY OF OTHER MEDICAL TREATMENT (4) Constipation due to neurogenic bowel Assessment/Plan: -chronic -laxatives -daily disimpaction by nursing Code(s): K59.00 - CONSTIPATION, UNSPECIFIED (5) Decubitus ulcer Assessment/Plan: seen by Dr Verdugo -clean with saline and betadine -abd dressing Code(s): L89.90 - PRESSURE ULCER OF UNSPECIFIED SITE, UNSPECIFIED STAGE Qualifiers: Pressure ulcer location: contiguous region involving back and buttock Pressure ulcer stage: unspecified pressure ulcer stage Laterality: unspecified laterality Qualified Code(s): L89.40 - Pressure ulcer of contiguous site of back, buttock and hip, unspecified stage (6) Effusion of hip Code(s): M25.459 - EFFUSION, UNSPECIFIED HIP Qualifiers: Laterality: left Qualified Code(s): M25.452 - Effusion, left hip (7) Hirschsprung disease of rectosigmoid region Code(s): Q43.1 - HIRSCHSPRUNG'S DISEASE (8) Leukocytosis Assessment/Plan: -improved -source hip effusion -BC/UC and abscess drain culture: Microbiology 07/23/17 15:30 Urine - Urine Pelaez Urine Culture - Preliminary Klebsiella Pneumoniae - Esbl 07/23/17 16:10 Blood - Peripheral Venous Blood Culture - Final Staphylococcus Epidermidis 07/24/17 15:30 Abscess Gram Stain - Final 07/24/17 15:30 Abscess Body Fluid Culture - Preliminary Lactose Fermenting Neg Bacilli Lactose Fermenting Neg Bacilli#2 Group D Strep Or Entero Coccus Alpha Hemolytic Streptococcus 07/23/17 16:10 Blood - Peripheral Venous Blood Culture - Preliminary NO GROWTH OBTAINED AFTER 48 HOURS, INCUBATION TO CONTINUE FOR 3 DAYS. -ID consult -IV abx -monitor labs Code(s): D72.829 - ELEVATED WHITE BLOOD CELL COUNT, UNSPECIFIED (9) 0STEOMYLITIS Assessment/Plan: -ON ABX -NS CONSULT NOTED--NO INTERVENTION
[2017-08-13] MEDS: BISACODYL 5 MG TABLET.DR (FP) PO SCH (09:36)
[2017-08-13] MEDS: BACITRACIN 15 GM TUBE TOPICAL OINTMENT TP SCH (10:51)
[2017-08-13] MEDS: POLYETHYLENE GLYCOL 3350 119 GM BTL PO SCH ×2 (10:52→21:27)
[2017-08-13] MEDS: NYSTATIN POWDER 100,000 UNITS/GM - 15 GM TOPICAL POWDER TP SCH (21:27)
[2017-08-13] MEDS: SENNOSIDES 8.6MG TABLET (FP) PO SCH (21:27)
[2017-08-14] MEDS: MAG HYDROX/ALH/SMC/DPHA/LIDO 240 ML MOUTHWASH MM SCH ×3 (00:21→18:16)
[2017-08-14] MEDS ORDERED: PT OWN MED DRAWER 7, Y5N ONE ×3 (01:22→17:34)
[2017-08-14] MEDS: MEROPENEM 500 MG in DEXTROSE 5%-WATER 100 ML IVPB SCH ×3 (01:23→17:24)
[2017-08-14] MEDS: LINEZOLID 600 MG PREMIX BAG 600 MG/300 ML BAG IVPB SCH (02:07)
[2017-08-14] MEDS: MAGNESIUM HYDROX 2400MG/30ML ORAL SUSPENSION 30 ML CUP PO SCH (06:27)
[2017-08-14] MEDS: NYSTATIN POWDER 100,000 UNITS/GM - 15 GM TOPICAL POWDER TP SCH (09:19)
[2017-08-14] MEDS: BISACODYL 5 MG TABLET.DR (FP) PO SCH (09:19)
[2017-08-14] MEDS: POLYETHYLENE GLYCOL 3350 119 GM BTL PO SCH (09:19)
[2017-08-14] MEDS ORDERED: PROPOFOL 20 ML ONE (10:16)
[2017-08-14] MEDS ORDERED: MIDAZOLAM HCL 2 MG/2 ML SINGLE DOSE VIAL ONE (10:16)
[2017-08-14] MEDS ORDERED: ONDANSETRON 4 MG/2 ML VIAL IVPUSH PRN ×2 (10:27→12:23)
--- NOTE | 2017-08-14 12:13 | PN ---
Progress Note, Physician Chief Complaint: PATIENT IN CYSTOSCOPY SUIT FOR PROCEDURE - Current Medication List Current Medications: Active Medications Bacitracin (Bacitracin -) 1 applic TP DAILY [facility] Last Admin: 08/13/17 10:51 Dose: Not Given Bisacodyl (Dulcolax -) 10 mg PO DAILY [facility] Last Admin: 08/14/17 09:19 Dose: Not Given Diphenhydramine HCl (Benadryl -) 50 mg PO HS PRN PRN Reason: INSOMNIA Fentanyl (Sublimaze Injection -) 50 mcg IVPUSH [id number] PRN PRN Reason: PAIN-PACU ORDER X 4 DOSES ONLY IV Flush (Picc Line Flush) 8 ml IVPUSH PRN PRN PRN Reason: Protocol IV Flush (Triple Lumen Flush) 4 ml IVPUSH PRN PRN PRN Reason: Protocol Linezolid (Zyvox 600 Mg Premix Bag (Restricted To Id) -) 600 mg in 300 mls @ 300 mls/hr IVPB Q12H [facility]; Protocol Last Admin: 08/14/17 02:07 Dose: 300 mls/hr Meropenem 500 mg/ Dextrose 100 mls @ 200 mls/hr IVPB Q8H-IV [facility] Last Admin: 08/14/17 09:18 Dose: 200 mls/hr Lidocaine/Aluminum/Magnesium/Simeth (Magic Mouthwash *Sjr Formula* -) 5 ml MM Q6HPO [facility] Last Admin: 08/14/17 06:27 Dose: Not Given Magnesium Hydroxide (Milk Of Magnesia -) 30 ml PO TID [facility] Last Admin: 08/14/17 06:27 Dose: Not Given Nystatin (Nystop Powder -) 1 applic TP BID [facility] Last Admin: 08/14/17 09:19 Dose: 1 applic Ondansetron HCl (Zofran Injection) 4 mg IVPUSH Q6H PRN PRN Reason: NAUSEA AND/OR VOMITING Polyethylene Glycol (Miralax (For Daily Use) -) 17 gm PO BID [facility] Last Admin: 08/14/17 09:19 Dose: Not Given Senna (Senna -) 2 tab PO HS [facility] Last Admin: 08/13/17 21:27 Dose: Not Given - Objective Vital Signs: Vital Signs Temperature 98.2 F 08/14/17 09:00 Pulse Rate 69 08/14/17 09:00 Respiratory Rate 18 08/14/17 09:00 Blood Pressure 109/59 08/14/17 09:00 O2 Sat by Pulse Oximetry (%) 92 L 08/14/17 09:00 Constitutional: Yes: No Distress Labs: CBC, BMP 08/12/17 06:30 08/12/17 06:30 INR, PTT INR 1.34 (0.82-1.09) H 07/23/17 16:10 Problem List - Problems (1) Abscess Code(s): L02.91 - CUTANEOUS ABSCESS, UNSPECIFIED (2) Bilateral hydronephrosis Code(s): N13.30 - UNSPECIFIED HYDRONEPHROSIS (3) Cellulitis of flank Code(s): L03.312 - CELLULITIS OF BACK [ANY PART EXCEPT BUTTOCK] (4) Obstruction of urinary stent Code(s): T83.89XA - OTH COMPLICATION OF GENITOURINARY PROSTH DEV/GRFT, INIT Qualifiers: Encounter type: sequela Qualified Code(s): T83.89XS - Other specified complication of genitourinary prosthetic devices, implants and grafts, sequela (5) Retroperitoneal fluid collection Code(s): R18.8 - OTHER ASCITES (6) Anemia Code(s): D64.9 - ANEMIA, UNSPECIFIED Qualifiers: Anemia type: iron deficiency Other causes of anemia: due to other specified chronic disease (7) Chronic indwelling Pelaez catheter Code(s): Z92.89 - PERSONAL HISTORY OF OTHER MEDICAL TREATMENT (8) Decubitus ulcer Code(s): L89.90 - PRESSURE ULCER OF UNSPECIFIED SITE, UNSPECIFIED STAGE Qualifiers: Pressure ulcer location: contiguous region involving back and buttock Pressure ulcer stage: unspecified pressure ulcer stage Laterality: unspecified laterality Qualified Code(s): L89.40 - Pressure ulcer of contiguous site of back, buttock and hip, unspecified stage (9) Fecal impaction in rectum Code(s): K56.41 - FECAL IMPACTION (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 Code(s): Z16.35 - RESISTANCE TO MULTIPLE ANTIMICROBIAL DRUGS (11) Megacolon Code(s): K59.3 - MEGACOLON, NOT ELSEWHERE CLASSIFIED * DO NOT USE * (12) Neurogenic bladder Code(s): N31.9 - NEUROMUSCULAR DYSFUNCTION OF BLADDER, UNSPECIFIED (13) Neurogenic bowel Code(s): K59.2 - NEUROGENIC BOWEL, NOT ELSEWHERE CLASSIFIED (14) Paraplegia following spinal cord injury Code(s): G82.20 - PARAPLEGIA, UNSPECIFIED (15) Weakness Code(s): R53.1 - WEAKNESS Assessment/Plan IV ABX PER ID FOLLOW UP AWAIT CX WOUND CARE
[2017-08-14] MEDS ORDERED: PROMETHAZINE HCL 25 MG/1 ML VIAL IVPUSH PRN (12:23)
[2017-08-14] MEDS ORDERED: oxyCODONE HCL 5 MG TABLET PO PRN (12:23)
--- NOTE | 2017-08-14 13:15 | OP ---
DATE OF OPERATION: 08/14/2017 PREOPERATIVE DIAGNOSIS: Bilateral hydronephrosis, bilateral staghorn calculi, neurogenic bladder. OPERATIVE PROCEDURE: Cystourethroscopy, removal of right JJ stent, right retrograde pyelogram, removal of left JJ stent, left retrograde pyelogram, left ureteroscopic stone retrieval, and passage of a left JJ stent. Attempts at passage of a right stent were unsuccessful. Pelaez catheter was also introduced. DESCRIPTION OF PROCEDURE: Under general anesthesia, the patient was prepped and draped in the usual sterile manner. He is placed in the dorsal lithotomy position. Cystoscopy revealed a normal anterior urethra. Prostatic urethra revealed bilobar hypertrophy. The bladder was entered. This revealed a dumbbell-shaped bladder with the trigone in the upper portion. There was squamous metaplasia and bullous edema throughout the bladder. There was also a grade 2-3 trabeculation. Bilateral ureteral stents were noted in the upper portion of the bladder. Both right and left stents were then removed. Bilateral retrograde pyelograms revealed bilateral hydroureteronephrosis with large filling defects in the renal pelvis the left much larger than the right signifying staghorn calculi. A left ureteroscopy was performed. Stone fragments were seen in the right upper ureter. Using a stone basket, multiple fragments were removed atraumatically. A Glidewire was then passed on the right side, and a 24-cm 7-Norwegian JJ stent was left in place. X-rays confirmed good position at the stent. A right retrograde pyelogram also revealed right hydroureteronephrosis. Multiple attempts at cannulation of the right ureteral orifice were unsuccessful. This was due to trabeculation and bullous edema. After multiple attempts trying to cannulate the right ureteral orifice, the procedure was abandoned. The bladder was emptied. A Glidewire was left in the upper portion of the bladder. The cystoscope was removed. The Pelaez catheter was then cut at the tip. The Glidewire was passed through the Pelaez catheter, and the Pelaez was inserted following the Glidewire to be positioned in its proper place. After this was done, the balloon was inflated with 10 mL of sterile water. The bladder was emptied. The urine drainage was clear. The patient tolerated the procedure well. He returned to the recovery room in good condition. The patient will need a renal ultrasound to assess the possibility of an increase in his right-sided hydronephrosis. If this is the case, he will need a right percutaneous nephrostomy with possible internalization. TRU FITZGERALD M.D. [id number]
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
[2017-08-14] MEDS: BACITRACIN 15 GM TUBE TOPICAL OINTMENT TP SCH (18:17)
[2017-08-15] MEDS ORDERED: PT OWN MED DRAWER 7, Y5N ONE ×3 (02:10→16:43)
[2017-08-15] MEDS: MEROPENEM 500 MG in DEXTROSE 5%-WATER 100 ML IVPB SCH ×3 (02:14→17:52)
[2017-08-15 08:21] LABS: BASO % 0.3 % (0-2.0); EOS % 2.5 % (0-4.5); HEMOGLOBIN 9.5 GM/dL (11.7-16.9); LYMPH % 10.2 % (8-40); MCHC 32.9 g/dl (32.0-35.9); PLATELET COUNT 71 K/MM3 (134-434); RBC 3.54 M/mm3 (4.00-5.60); WHITE BLOOD COUNT 7.5 K/mm3 (4.0-10.0)
[2017-08-15 08:36] LABS: CHLORIDE 103 mmol/L (98-107); POTASSIUM 4.2 mmol/L (3.5-5.1); SODIUM 140 mmol/L (136-145)
[2017-08-15 08:58] LABS: ANION GAP 10 (8-16); BLOOD UREA NITROGEN 23 mg/dL (7-18); CO2 27 mmol/L (21-32); CREATININE 0.8 mg/dL (0.7-1.3); GLUCOSE,RANDOM 70 mg/dL (74-106)
--- NOTE | 2017-08-15 09:00 | PN ---
Progress Note, Physician - Current Medication List Current Medications: Active Medications Fentanyl (Sublimaze Injection -) 25 mcg IVPUSH [id number] PRN PRN Reason: PAIN-PACU ORDER X 4 DOSES ONLY Meropenem 500 mg/ Dextrose 100 mls @ 200 mls/hr IVPB Q8H-IV [facility] Last Admin: 08/15/17 02:14 Dose: 200 mls/hr Ondansetron HCl (Zofran Injection) 4 mg IVPUSH Q6H PRN PRN Reason: NAUSEA AND/OR VOMITING Oxycodone HCl (Roxicodone -) 5 mg PO Q4H PRN PRN Reason: PAIN LEVEL 4 - 6 Stop: 08/15/17 12:22 Promethazine HCl (Phenergan Injection -) 12.5 mg IVPUSH Q6H PRN PRN Reason: NAUSEA-FOR RESCUE AFTER 15 MIN - Objective Vital Signs: Vital Signs Temperature 97.6 F 08/14/17 22:00 Pulse Rate 65 08/14/17 22:00 Respiratory Rate 20 08/14/17 22:00 Blood Pressure 94/59 08/14/17 22:00 O2 Sat by Pulse Oximetry (%) 95 08/14/17 21:00 Cardiovascular: Yes: S1, S2 Respiratory: Yes: Regular, CTA Bilaterally Gastrointestinal: Yes: Normal Bowel Sounds, Soft Labs: CBC, BMP 08/15/17 07:30 INR, PTT INR 1.34 (0.82-1.09) H 07/23/17 16:10 Assessment/Plan - Problems (1) Retroperitoneal fluid collection Assessment/Plan: -IR consult -YA drain -chronic due to urinary leak from kidneys because of renal stones and stents Code(s): R18.8 - OTHER ASCITES (2) Bilateral nephrolithiasis Assessment/Plan: chronic staghorn calculus, followed by urology--s/p stnet change Has refused percutaneous nephrolithotomy that needs to be done at tertiary care center Code(s): N20.0 - CALCULUS OF KIDNEY (3) Chronic indwelling Hull catheter Assessment/Plan: 2/2 to neurogenic bladder -urology follow up noted for stent change -hull changed--08/14 Code(s): Z92.89 - PERSONAL HISTORY OF OTHER MEDICAL TREATMENT (4) Constipation due to neurogenic bowel Assessment/Plan: -chronic -laxatives -daily disimpaction by nursing Code(s): K59.00 - CONSTIPATION, UNSPECIFIED (5) Decubitus ulcer Assessment/Plan: seen by Dr Verdugo -clean with saline and betadine -abd dressing Code(s): L89.90 - PRESSURE ULCER OF UNSPECIFIED SITE, UNSPECIFIED STAGE Qualifiers: Pressure ulcer location: contiguous region involving back and buttock Pressure ulcer stage: unspecified pressure ulcer stage Laterality: unspecified laterality Qualified Code(s): L89.40 - Pressure ulcer of contiguous site of back, buttock and hip, unspecified stage (6) Effusion of hip Code(s): M25.459 - EFFUSION, UNSPECIFIED HIP Qualifiers: Laterality: left Qualified Code(s): M25.452 - Effusion, left hip (7) Hirschsprung disease of rectosigmoid region Code(s): Q43.1 - HIRSCHSPRUNG'S DISEASE (8) Leukocytosis Assessment/Plan: -improved -source hip effusion -BC/UC and abscess drain culture: Microbiology 07/23/17 15:30 Urine - Urine [place] Urine Culture - Preliminary Klebsiella Pneumoniae - Esbl 07/23/17 16:10 Blood - Peripheral Venous Blood Culture - Final Staphylococcus Epidermidis 07/24/17 15:30 Abscess Gram Stain - Final 07/24/17 15:30 Abscess Body Fluid Culture - Preliminary Lactose Fermenting Neg Bacilli Lactose Fermenting Neg Bacilli#2 Group D Strep Or Entero Coccus Alpha Hemolytic Streptococcus 07/23/17 16:10 Blood - Peripheral Venous Blood Culture - Preliminary NO GROWTH OBTAINED AFTER 48 HOURS, INCUBATION TO CONTINUE FOR 3 DAYS. -ID consult -IV abx -monitor labs Code(s): D72.829 - ELEVATED WHITE BLOOD CELL COUNT, UNSPECIFIED (9) 0STEOMYLITIS Assessment/Plan: -ON ABX -NS CONSULT NOTED--NO INTERVENTION
[2017-08-15 09:09] LABS: CALCIUM 7.9 mg/dL (8.5-10.1)
--- NOTE | 2017-08-15 11:40 | PN ---
Progress Note, Physician History of Present Illness: Awake, alert in bed S/P L ureteral stent exchange No complaints No c/o flank pain No fever/ chills Tolerating antibiotics - Current Medication List Current Medications: Active Medications Fentanyl (Sublimaze Injection -) 25 mcg IVPUSH [id number] PRN PRN Reason: PAIN-PACU ORDER X 4 DOSES ONLY Meropenem 500 mg/ Dextrose 100 mls @ 200 mls/hr IVPB Q8H-IV GISEL Last Admin: 08/15/17 09:11 Dose: 200 mls/hr Ondansetron HCl (Zofran Injection) 4 mg IVPUSH Q6H PRN PRN Reason: NAUSEA AND/OR VOMITING Oxycodone HCl (Roxicodone -) 5 mg PO Q4H PRN PRN Reason: PAIN LEVEL 4 - 6 Stop: 08/15/17 12:22 Promethazine HCl (Phenergan Injection -) 12.5 mg IVPUSH Q6H PRN PRN Reason: NAUSEA-FOR RESCUE AFTER 15 MIN - Objective Vital Signs: Vital Signs Temperature 97.6 F 08/15/17 10:00 Pulse Rate 92 H 08/15/17 10:00 Respiratory Rate 20 08/15/17 10:00 Blood Pressure 98/56 08/15/17 10:00 O2 Sat by Pulse Oximetry (%) 95 08/15/17 10:00 Constitutional: Yes: Cachectic Cardiovascular: Yes: Regular Rate and Rhythm, S1, S2 Respiratory: Yes: CTA Bilaterally Gastrointestinal: Yes: Normal Bowel Sounds, Soft, Other (distended) Labs: CBC, BMP 08/15/17 07:30 08/15/17 07:30 INR, PTT INR 1.34 (0.82-1.09) H 07/23/17 16:10 Assessment/Plan 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
[2017-08-16] MEDS ORDERED: PT OWN MED DRAWER 7, Y5N ONE ×2 (01:24→08:36)
[2017-08-16] MEDS: MEROPENEM 500 MG in DEXTROSE 5%-WATER 100 ML IVPB SCH ×3 (01:25→17:48)
--- NOTE | 2017-08-16 10:39 | PN ---
Progress Note, Physician - Current Medication List Current Medications: Active Medications Fentanyl (Sublimaze Injection -) 25 mcg IVPUSH [id number] PRN PRN Reason: PAIN-PACU ORDER X 4 DOSES ONLY Meropenem 500 mg/ Dextrose 100 mls @ 200 mls/hr IVPB Q8H-IV GISEL Last Admin: 08/16/17 09:53 Dose: 200 mls/hr Ondansetron HCl (Zofran Injection) 4 mg IVPUSH Q6H PRN PRN Reason: NAUSEA AND/OR VOMITING Promethazine HCl (Phenergan Injection -) 12.5 mg IVPUSH Q6H PRN PRN Reason: NAUSEA-FOR RESCUE AFTER 15 MIN - Objective Vital Signs: Vital Signs Temperature 98 F 08/16/17 00:37 Pulse Rate 75 08/16/17 00:37 Respiratory Rate 18 08/16/17 00:37 Blood Pressure 118/64 08/16/17 00:37 O2 Sat by Pulse Oximetry (%) 95 08/15/17 21:00 Cardiovascular: Yes: S1, S2 Respiratory: Yes: Regular, CTA Bilaterally Gastrointestinal: Yes: Normal Bowel Sounds, Soft Labs: CBC, BMP 08/15/17 07:30 08/15/17 07:30 INR, PTT INR 1.34 (0.82-1.09) H 07/23/17 16:10 Assessment/Plan - Problems (1) Retroperitoneal fluid collection Assessment/Plan: -IR consult -YA drain -chronic due to urinary leak from kidneys because of renal stones and stents Code(s): R18.8 - OTHER ASCITES (2) Bilateral nephrolithiasis Assessment/Plan: chronic staghorn calculus, followed by urology--s/p stnet change Has refused percutaneous nephrolithotomy that needs to be done at tertiary care center Code(s): N20.0 - CALCULUS OF KIDNEY (3) Chronic indwelling Hull catheter Assessment/Plan: / to neurogenic bladder -urology follow up noted for stent change -hull changed--08/14 Code(s): Z92.89 - PERSONAL HISTORY OF OTHER MEDICAL TREATMENT (4) Constipation due to neurogenic bowel Assessment/Plan: -chronic -laxatives -daily disimpaction by nursing Code(s): K59.00 - CONSTIPATION, UNSPECIFIED (5) Decubitus ulcer Assessment/Plan: seen by Dr Verdugo -clean with saline and betadine -abd dressing Code(s): L89.90 - PRESSURE ULCER OF UNSPECIFIED SITE, UNSPECIFIED STAGE Qualifiers: Pressure ulcer location: contiguous region involving back and buttock Pressure ulcer stage: unspecified pressure ulcer stage Laterality: unspecified laterality Qualified Code(s): L89.40 - Pressure ulcer of contiguous site of back, buttock and hip, unspecified stage (6) Effusion of hip Code(s): M25.459 - EFFUSION, UNSPECIFIED HIP Qualifiers: Laterality: left Qualified Code(s): M25.452 - Effusion, left hip (7) Hirschsprung disease of rectosigmoid region Code(s): Q43.1 - HIRSCHSPRUNG'S DISEASE (8) Leukocytosis Assessment/Plan: -improved -source hip effusion -BC/UC and abscess drain culture: Microbiology 07/23/17 15:30 Urine - Urine Hull Urine Culture - Preliminary Klebsiella Pneumoniae - Esbl 07/23/17 16:10 Blood - Peripheral Venous Blood Culture - Final Staphylococcus Epidermidis 07/24/17 15:30 Abscess Gram Stain - Final 07/24/17 15:30 Abscess Body Fluid Culture - Preliminary Lactose Fermenting Neg Bacilli Lactose Fermenting Neg Bacilli#2 Group D Strep Or Entero Coccus Alpha Hemolytic Streptococcus 07/23/17 16:10 Blood - Peripheral Venous Blood Culture - Preliminary NO GROWTH OBTAINED AFTER 48 HOURS, INCUBATION TO CONTINUE FOR 3 DAYS. -ID consult -IV abx -monitor labs Code(s): D72.829 - ELEVATED WHITE BLOOD CELL COUNT, UNSPECIFIED (9) 0STEOMYLITIS Assessment/Plan: -ON ABX -NS CONSULT NOTED--NO INTERVENTION
[2017-08-16] MEDS ORDERED: MAGNESIUM HYDROX 2400MG/30ML ORAL SUSPENSION 30 ML CUP PO PRN (23:16)
[2017-08-17] MEDS: MEROPENEM 500 MG in DEXTROSE 5%-WATER 100 ML IVPB SCH ×3 (01:32→18:48)
[2017-08-17] MEDS ORDERED: PT OWN MED DRAWER 7, Y5N ONE ×2 (10:12→18:47)
--- NOTE | 2017-08-17 11:27 | PN ---
Progress Note, Physician History of Present Illness: Awake, alert in bed S/P L ureteral stent exchange No complaints of pain No c/o flank pain No fever/ chills Tolerating antibiotics Leakage around L flank drainage catheter noted - Current Medication List Current Medications: Active Medications Fentanyl (Sublimaze Injection -) 25 mcg IVPUSH [id number] PRN PRN Reason: PAIN-PACU ORDER X 4 DOSES ONLY Meropenem 500 mg/ Dextrose 100 mls @ 200 mls/hr IVPB Q8H-IV GISEL Last Admin: 08/17/17 11:16 Dose: 200 mls/hr Magnesium Hydroxide (Milk Of Magnesia -) 30 ml PO DAILY PRN PRN Reason: CONSTIPATION Last Admin: 08/16/17 23:21 Dose: 30 ml Ondansetron HCl (Zofran Injection) 4 mg IVPUSH Q6H PRN PRN Reason: NAUSEA AND/OR VOMITING Promethazine HCl (Phenergan Injection -) 12.5 mg IVPUSH Q6H PRN PRN Reason: NAUSEA-FOR RESCUE AFTER 15 MIN - Objective Vital Signs: Vital Signs Temperature 98.1 F 08/17/17 07:15 Pulse Rate 81 08/17/17 07:15 Respiratory Rate 18 08/17/17 07:15 Blood Pressure 89/64 08/17/17 07:15 O2 Sat by Pulse Oximetry (%) 96 08/16/17 21:00 Constitutional: Yes: No Distress, Cachectic Cardiovascular: Yes: Regular Rate and Rhythm, S1, S2 Respiratory: Yes: CTA Bilaterally Gastrointestinal: Yes: Normal Bowel Sounds, Soft, Tenderness, Other (L falnk drainage catheter with serosanguinous fluid in drain. 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 Zyvox D/C'd Continue IV antibiotics x 24h IR follow up for drain removal Contact precautions
--- NOTE | 2017-08-17 15:45 | PATH ---
Surgical Pathology Report Patient Name: ROSLYN HILLS [facility]. Rec. #: [id number] /Age/Gender: 1965 (Age: 52) / M Account: [id number] Location: [facility] P[facility]/ADOL Taken: 08/14/2017 Received: 08/14/2017 Reported: 08/17/2017 Physicians: Alison Artis M.D. Specimen(s) Received A: OLD URETERAL STENT B: URETHRAL STONE Clinical History Ureteral stones Final Diagnosis A. OLD URETERAL STENT: SEGMENTS OF STENT, GROSS EXAMINATION ONLY. B. URETERAL STONE: CALCULI, SENT FOR CHEMICAL ANALYSIS. Electronically Signed Cain Payton M.D. Gross Description A. Received fresh labeled "old ureteral stents," are 2 green-blue, coiled portions of tubing, consistent with ureteral stents. The stents average 34 cm in length. No soft tissue is present. No sections are submitted, gross only. B. Received fresh labeled "ureteral stones," are 2 layne, irregular calculi averaging 0.1 cm in greatest dimension. The specimen is sent for chemical analysis. DL/08/14/2017 saudi/08/14/2017
--- NOTE | 2017-08-17 15:54 | PN ---
Progress Note, Physician Chief Complaint: AWAKE ALERT NOTES REVIEWED C/O CONSTIPATION - Current Medication List Current Medications: Active Medications Fentanyl (Sublimaze Injection -) 25 mcg IVPUSH [id number] PRN PRN Reason: PAIN-PACU ORDER X 4 DOSES ONLY Meropenem 500 mg/ Dextrose 100 mls @ 200 mls/hr IVPB Q8H-IV GISEL Last Admin: 08/17/17 11:16 Dose: 200 mls/hr Magnesium Hydroxide (Milk Of Magnesia -) 30 ml PO DAILY PRN PRN Reason: CONSTIPATION Last Admin: 08/16/17 23:21 Dose: 30 ml Ondansetron HCl (Zofran Injection) 4 mg IVPUSH Q6H PRN PRN Reason: NAUSEA AND/OR VOMITING Promethazine HCl (Phenergan Injection -) 12.5 mg IVPUSH Q6H PRN PRN Reason: NAUSEA-FOR RESCUE AFTER 15 MIN - Objective Vital Signs: Vital Signs Temperature 97.8 F 08/17/17 14:00 Pulse Rate 74 08/17/17 14:00 Respiratory Rate 16 08/17/17 14:00 Blood Pressure 105/63 08/17/17 14:00 O2 Sat by Pulse Oximetry (%) 95 08/17/17 09:00 Constitutional: Yes: Mild Distress Eyes: Yes: WNL HENT: Yes: WNL Neck: Yes: WNL Cardiovascular: Yes: WNL Respiratory: Yes: WNL Gastrointestinal: Yes: Distention, Other (DRAIN LEFT FLANK) Genitourinary: Yes: Pelaez Present Musculoskeletal: Yes: Muscle Weakness Extremities: Yes: Deformity Edema: No Peripheral Pulses WNL: Yes Integumentary: Yes: Pressure Ulcer (SACRAL ULCERS) Wound/Incision: Yes: Dressing Dry and Intact, Draining Neurological: Yes: Pre-Existing Deficit ...Motor Strength: LLE, RLE Psychiatric: Yes: Other Labs: CBC, BMP 08/15/17 07:30 08/15/17 07:30 INR, PTT INR 1.34 (0.82-1.09) H 07/23/17 16:10 Problem List - Problems (1) Abscess Code(s): L02.91 - CUTANEOUS ABSCESS, UNSPECIFIED (2) Bilateral hydronephrosis Code(s): N13.30 - UNSPECIFIED HYDRONEPHROSIS (3) Cellulitis of flank Code(s): L03.312 - CELLULITIS OF BACK [ANY PART EXCEPT BUTTOCK] (4) Obstruction of urinary stent Code(s): T83.89XA - OTH COMPLICATION OF GENITOURINARY PROSTH DEV/GRFT, INIT Qualifiers: Encounter type: sequela Qualified Code(s): T83.89XS - Other specified complication of genitourinary prosthetic devices, implants and grafts, sequela (5) Retroperitoneal fluid collection Code(s): R18.8 - OTHER ASCITES (6) Anemia Code(s): D64.9 - ANEMIA, UNSPECIFIED Qualifiers: Anemia type: iron deficiency Other causes of anemia: due to other specified chronic disease (7) Chronic indwelling Pelaez catheter Code(s): Z92.89 - PERSONAL HISTORY OF OTHER MEDICAL TREATMENT (8) Decubitus ulcer Code(s): L89.90 - PRESSURE ULCER OF UNSPECIFIED SITE, UNSPECIFIED STAGE Qualifiers: Pressure ulcer location: contiguous region involving back and buttock Pressure ulcer stage: unspecified pressure ulcer stage Laterality: unspecified laterality Qualified Code(s): L89.40 - Pressure ulcer of contiguous site of back, buttock and hip, unspecified stage (9) Fecal impaction in rectum Code(s): K56.41 - FECAL IMPACTION (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 Code(s): Z16.35 - RESISTANCE TO MULTIPLE ANTIMICROBIAL DRUGS (11) Megacolon Code(s): K59.3 - MEGACOLON, NOT ELSEWHERE CLASSIFIED * DO NOT USE * (12) Neurogenic bladder Code(s): N31.9 - NEUROMUSCULAR DYSFUNCTION OF BLADDER, UNSPECIFIED (13) Neurogenic bowel Code(s): K59.2 - NEUROGENIC BOWEL, NOT ELSEWHERE CLASSIFIED (14) Paraplegia following spinal cord injury Code(s): G82.20 - PARAPLEGIA, UNSPECIFIED (15) Weakness Code(s): R53.1 - WEAKNESS Assessment/Plan SOAP SHELLEY ENEMAS ORDERED MONITOR LEFT FLANK DRAIN STILL HAVE DISCHARGE IN YA DRAIN IV ABX PER ID LABS REVIEWED
[2017-08-18] MEDS: MEROPENEM 500 MG in DEXTROSE 5%-WATER 100 ML IVPB SCH ×2 (01:36→11:25)
[2017-08-18] MEDS ORDERED: PT OWN MED DRAWER 7, Y5N ONE (10:11)
--- NOTE | 2017-08-18 14:37 | PN ---
Progress Note, Physician Chief Complaint: ASLEEP COMFORTABLE ANTIBIOTICS COMPLETE AFTER TODAY - Current Medication List Current Medications: Active Medications Fentanyl (Sublimaze Injection -) 25 mcg IVPUSH [id number] PRN PRN Reason: PAIN-PACU ORDER X 4 DOSES ONLY Magnesium Hydroxide (Milk Of Magnesia -) 30 ml PO DAILY PRN PRN Reason: CONSTIPATION Last Admin: 08/16/17 23:21 Dose: 30 ml Ondansetron HCl (Zofran Injection) 4 mg IVPUSH Q6H PRN PRN Reason: NAUSEA AND/OR VOMITING Promethazine HCl (Phenergan Injection -) 12.5 mg IVPUSH Q6H PRN PRN Reason: NAUSEA-FOR RESCUE AFTER 15 MIN - Objective Vital Signs: Vital Signs Temperature 97.9 F 08/18/17 09:27 Pulse Rate 66 08/18/17 09:27 Respiratory Rate 18 08/18/17 09:27 Blood Pressure 133/74 08/18/17 09:27 O2 Sat by Pulse Oximetry (%) 95 08/18/17 10:00 Constitutional: Yes: No Distress Eyes: Yes: WNL, Other Neck: Yes: WNL Cardiovascular: Yes: WNL Respiratory: Yes: WNL Gastrointestinal: Yes: Distention, Other (YA DRAIN LEFT FLANK MINIMAL DRAINAGE) Genitourinary: Yes: Pelaez Present Musculoskeletal: Yes: Muscle Weakness Extremities: Yes: Other Edema: No Peripheral Pulses WNL: Yes Integumentary: Yes: Other Wound/Incision: Yes: Draining Neurological: Yes: Pre-Existing Deficit ...Motor Strength: LLE, RLE Psychiatric: Yes: Other Labs: CBC, BMP 08/15/17 07:30 08/15/17 07:30 INR, PTT INR 1.34 (0.82-1.09) H 07/23/17 16:10 Problem List - Problems (1) Abscess Code(s): L02.91 - CUTANEOUS ABSCESS, UNSPECIFIED (2) Bilateral hydronephrosis Code(s): N13.30 - UNSPECIFIED HYDRONEPHROSIS (3) Cellulitis of flank Code(s): L03.312 - CELLULITIS OF BACK [ANY PART EXCEPT BUTTOCK] (4) Obstruction of urinary stent Code(s): T83.89XA - OTH COMPLICATION OF GENITOURINARY PROSTH DEV/GRFT, INIT Qualifiers: Encounter type: sequela Qualified Code(s): T83.89XS - Other specified complication of genitourinary prosthetic devices, implants and grafts, sequela (5) Retroperitoneal fluid collection Code(s): R18.8 - OTHER ASCITES (6) Anemia Code(s): D64.9 - ANEMIA, UNSPECIFIED Qualifiers: Anemia type: iron deficiency Other causes of anemia: due to other specified chronic disease (7) Chronic indwelling Pelaez catheter Code(s): Z92.89 - PERSONAL HISTORY OF OTHER MEDICAL TREATMENT (8) Decubitus ulcer Code(s): L89.90 - PRESSURE ULCER OF UNSPECIFIED SITE, UNSPECIFIED STAGE Qualifiers: Pressure ulcer location: contiguous region involving back and buttock Pressure ulcer stage: unspecified pressure ulcer stage Laterality: unspecified laterality Qualified Code(s): L89.40 - Pressure ulcer of contiguous site of back, buttock and hip, unspecified stage (9) Fecal impaction in rectum Code(s): K56.41 - FECAL IMPACTION (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 Code(s): Z16.35 - RESISTANCE TO MULTIPLE ANTIMICROBIAL DRUGS (11) Megacolon Code(s): K59.3 - MEGACOLON, NOT ELSEWHERE CLASSIFIED * DO NOT USE * (12) Neurogenic bladder Code(s): N31.9 - NEUROMUSCULAR DYSFUNCTION OF BLADDER, UNSPECIFIED (13) Neurogenic bowel Code(s): K59.2 - NEUROGENIC BOWEL, NOT ELSEWHERE CLASSIFIED (14) Paraplegia following spinal cord injury Code(s): G82.20 - PARAPLEGIA, UNSPECIFIED (15) Weakness Code(s): R53.1 - WEAKNESS Assessment/Plan ANTIBIOTICS COMPLETE CT SCAN ABD PER SURGERY AND IR PRIOR TO REMOVAL OF DRAIN LEFT FLANK MONITOR LABS ENEMA PER RECTAL PRN
[2017-08-19 08:00] LABS: CHLORIDE 105 mmol/L (98-107); POTASSIUM 4.4 mmol/L (3.5-5.1); SODIUM 139 mmol/L (136-145)
[2017-08-19 08:03] LABS: HEMATOCRIT 27.6 % (35.4-49); HEMOGLOBIN 8.9 GM/dL (11.7-16.9); MCH 26.8 pg (25.7-33.7); MCHC 32.4 g/dl (32.0-35.9); MEAN CELL VOLUME 82.6 fl (80-96); MEAN PLT VOLUME 8.8 fl (7.5-11.1); PLATELET COUNT 88 K/MM3 (134-434); RBC 3.34 M/mm3 (4.00-5.60); RDW 17.6 % (11.9-15.9); WHITE BLOOD COUNT 4.6 K/mm3 (4.0-10.0)
[2017-08-19 08:14] LABS: ALBUMIN 2.6 g/dl (3.4-5.0); ALK PHOS 90 U/L (45-117); ANION GAP 4 (8-16); BILIRUBIN,TOTAL 0.3 mg/dL (0.2-1.0); BLOOD UREA NITROGEN 20 mg/dL (7-18); CALCIUM 8.4 mg/dL (8.5-10.1); CO2 30 mmol/L (21-32); CREATININE 0.6 mg/dL (0.7-1.3); GLUCOSE,RANDOM 67 mg/dL (74-106); SGOT/AST 32 U/L (15-37); SGPT/ALT 35 U/L (12-78); TOT PROT 6.5 g/dl (6.4-8.2)
--- NOTE | 2017-08-19 09:48 | PN ---
Progress Note, Physician Chief Complaint: TRANSFERRED FOR CT ABD/PELVIS - Current Medication List Current Medications: Active Medications Fentanyl (Sublimaze Injection -) 25 mcg IVPUSH [id number] PRN PRN Reason: PAIN-PACU ORDER X 4 DOSES ONLY Magnesium Hydroxide (Milk Of Magnesia -) 30 ml PO DAILY PRN PRN Reason: CONSTIPATION Last Admin: 08/16/17 23:21 Dose: 30 ml Ondansetron HCl (Zofran Injection) 4 mg IVPUSH Q6H PRN PRN Reason: NAUSEA AND/OR VOMITING Promethazine HCl (Phenergan Injection -) 12.5 mg IVPUSH Q6H PRN PRN Reason: NAUSEA-FOR RESCUE AFTER 15 MIN - Objective Vital Signs: Vital Signs Temperature 97.1 F L 08/18/17 22:00 Pulse Rate 74 08/18/17 22:00 Respiratory Rate 20 08/18/17 22:00 Blood Pressure 108/74 08/18/17 22:00 O2 Sat by Pulse Oximetry (%) 95 08/18/17 21:00 Constitutional: Yes: No Distress Eyes: Yes: WNL HENT: Yes: WNL Neck: Yes: WNL Cardiovascular: Yes: WNL Respiratory: Yes: WNL Gastrointestinal: Yes: Distention, Other (LEFT FLANK DRAIN) Genitourinary: Yes: Pelaez Present Musculoskeletal: Yes: Muscle Weakness Extremities: Yes: Other Peripheral Pulses WNL: Yes Integumentary: Yes: Pressure Ulcer, Venous Stasis Changes Wound/Incision: Yes: Dressing Dry and Intact, Unapproximated Neurological: Yes: Pre-Existing Deficit ...Motor Strength: LLE, RLE Psychiatric: Yes: Other Labs: CBC, BMP 08/19/17 06:20 08/19/17 06:20 INR, PTT INR 1.34 (0.82-1.09) H 07/23/17 16:10 Problem List - Problems (1) Abscess Code(s): L02.91 - CUTANEOUS ABSCESS, UNSPECIFIED (2) Bilateral hydronephrosis Code(s): N13.30 - UNSPECIFIED HYDRONEPHROSIS (3) Cellulitis of flank Code(s): L03.312 - CELLULITIS OF BACK [ANY PART EXCEPT BUTTOCK] (4) Obstruction of urinary stent Code(s): T83.89XA - OTH COMPLICATION OF GENITOURINARY PROSTH DEV/GRFT, INIT Qualifiers: Encounter type: sequela Qualified Code(s): T83.89XS - Other specified complication of genitourinary prosthetic devices, implants and grafts, sequela (5) Retroperitoneal fluid collection Code(s): R18.8 - OTHER ASCITES (6) Anemia Code(s): D64.9 - ANEMIA, UNSPECIFIED Qualifiers: Anemia type: iron deficiency Other causes of anemia: due to other specified chronic disease (7) Chronic indwelling Pelaez catheter Code(s): Z92.89 - PERSONAL HISTORY OF OTHER MEDICAL TREATMENT (8) Decubitus ulcer Code(s): L89.90 - PRESSURE ULCER OF UNSPECIFIED SITE, UNSPECIFIED STAGE Qualifiers: Pressure ulcer location: contiguous region involving back and buttock Pressure ulcer stage: unspecified pressure ulcer stage Laterality: unspecified laterality Qualified Code(s): L89.40 - Pressure ulcer of contiguous site of back, buttock and hip, unspecified stage (9) Fecal impaction in rectum Code(s): K56.41 - FECAL IMPACTION (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 Code(s): Z16.35 - RESISTANCE TO MULTIPLE ANTIMICROBIAL DRUGS (11) Megacolon Code(s): K59.3 - MEGACOLON, NOT ELSEWHERE CLASSIFIED * DO NOT USE * (12) Neurogenic bladder Code(s): N31.9 - NEUROMUSCULAR DYSFUNCTION OF BLADDER, UNSPECIFIED (13) Neurogenic bowel Code(s): K59.2 - NEUROGENIC BOWEL, NOT ELSEWHERE CLASSIFIED (14) Paraplegia following spinal cord injury Code(s): G82.20 - PARAPLEGIA, UNSPECIFIED (15) Weakness Code(s): R53.1 - WEAKNESS Assessment/Plan AWAIT CT ABD/PELVIS ONCE I.R. REMOVES DRAIN CAN DC HOME CURRENTLY OFF ABX
--- NOTE | 2017-08-19 10:47 | PN ---
Progress Note, Physician History of Present Illness: Awake, alert No complaints of pain No c/o flank pain No fever/ chills Off antibiotics Drainage catheter removed - Current Medication List Current Medications: Active Medications Fentanyl (Sublimaze Injection -) 25 mcg IVPUSH [id number] PRN PRN Reason: PAIN-PACU ORDER X 4 DOSES ONLY Magnesium Hydroxide (Milk Of Magnesia -) 30 ml PO DAILY PRN PRN Reason: CONSTIPATION Last Admin: 08/16/17 23:21 Dose: 30 ml Ondansetron HCl (Zofran Injection) 4 mg IVPUSH Q6H PRN PRN Reason: NAUSEA AND/OR VOMITING Promethazine HCl (Phenergan Injection -) 12.5 mg IVPUSH Q6H PRN PRN Reason: NAUSEA-FOR RESCUE AFTER 15 MIN - Objective Vital Signs: Vital Signs Temperature 97.1 F L 08/18/17 22:00 Pulse Rate 74 08/18/17 22:00 Respiratory Rate 20 08/18/17 22:00 Blood Pressure 108/74 08/18/17 22:00 O2 Sat by Pulse Oximetry (%) 95 08/18/17 21:00 Constitutional: Yes: No Distress, Cachectic Cardiovascular: Yes: Regular Rate and Rhythm, S1, S2 Respiratory: Yes: CTA Bilaterally Gastrointestinal: Yes: Normal Bowel Sounds, Soft, Other (L flank swelling improved. No erythema). 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
--- NOTE | 2017-08-20 09:57 | DS ---
Physical Examination Vital Signs: Vital Signs Temperature 97.6 F 08/19/17 22:00 Pulse Rate 75 08/19/17 22:00 Respiratory Rate 20 08/19/17 22:00 Blood Pressure 100/66 08/19/17 22:00 O2 Sat by Pulse Oximetry (%) 96 08/19/17 21:00 Findings/Remarks: PATIENT HAS OPTED TO REMOVED LEFT FLANK DRAIN FOR CHRONIC FISTULA HE IS BEING DISCHARGED TODAY OFF ABX FOR NOW, NO FEVERS NO DISTRESS Constitutional: Yes: No Distress Eyes: Yes: WNL HENT: Yes: WNL Neck: Yes: WNL Cardiovascular: Yes: WNL Respiratory: Yes: WNL Gastrointestinal: Yes: Distention Renal/: Yes: WNL Musculoskeletal: Yes: Other Extremities: Yes: Other Edema: No Peripheral Pulses WNL: Yes Integumentary: Yes: Pressure Ulcer Wound/Incision: Yes: Dressing Dry and Intact Neurological: Yes: Numbness, Paresthesia, Pre-Existing Deficit ...Motor Strength: LLE, RLE Psychiatric: Yes: Other Labs: CBC, BMP 08/19/17 06:20 08/19/17 06:20 Discharge Summary Reason For Visit: ABDOMINAL FLUID COLLECTION Current Active Problems Abscess (Acute) Bilateral hydronephrosis (Acute) Cellulitis of flank (Acute) Cellulitis of hip, left (Acute) Obstruction of urinary stent (Acute) Other megacolon (Acute) Other specified disorders of kidney and ureter (Acute) Retroperitoneal fluid collection (Acute) Urinoma (Acute) Procedures: Principal: CT ABD/PELVIS Hospital Course: ADMITTED FOR SEPSIS, BACTERIAL INFECTION, FLUID COLLECTION RETROPERITONEAL AND TREATED WITH IV ABX, DRAIN TO REMOVE FLUID LEFT FLANK, CYSTOSCOPY DONE FOUND WITH STAGHORN CALCULI AND WILL NEED MANAGEMENT WITH OUTPATIENT STENT REMOVAL Condition: Stable - Instructions Diet, Activity, Other Instructions: REG DIET SEE UEOLOGY IN 2 WEEKS F/U WITH PMD IN 1 WEEK FOR LABS Referrals: Leola House MD [Primary Care Provider] - Disposition: VNS/HOME HEALTH CARE - Home Medications Comprehensive Discharge Medication List: Ambulatory Orders Bisacodyl [Bisacodyl -] 10 mg PO DAILY #30 tablet. 06/03/17 Magnesium Hydrox 2400MG/30Ml [Milk of Magnesia -] 30 ml PO Q8H #90 cup 06/03/17 Mineral Oil Enema [Fleet Mineral Oil Rectal Enema -] 133 ml SC DAILY PRN #30 enema 06/03/17 Polyethylene Glycol 3350 [Miralax 119 gm Btl -] 17 gm PO BID #3 bottle 06/03/17 Sennosides [Senna -] 2 tab PO HS #60 tablet 06/03/17 Silver Sulfadiazine 1% Top Cr [Silvadene -] 1 applic TP DAILY #450 g 06/03/17 Morphine Sulfate 15 mg PO Q3H6XD PRN #90 tablet MDD 6 08/20/17 Pantoprazole Sodium [Protonix -] 40 mg PO DAILY #30 tablet.ec 08/20/17
[2017-08-21] MEDS ORDERED: MINERAL OIL ENEMA 133 ML ENEMA PR ONE (09:41)
--- NOTE | 2017-08-21 09:46 | PN ---
Progress Note, Physician Chief Complaint: patient claims he has not had a BM wants enema-ordered says he is having chills last night currently afebrile will repeat labs - Current Medication List Current Medications: Active Medications Magnesium Hydroxide (Milk Of Magnesia -) 30 ml PO DAILY PRN PRN Reason: CONSTIPATION Last Admin: 08/16/17 23:21 Dose: 30 ml Ondansetron HCl (Zofran Injection) 4 mg IVPUSH Q6H PRN PRN Reason: NAUSEA AND/OR VOMITING Promethazine HCl (Phenergan Injection -) 12.5 mg IVPUSH Q6H PRN PRN Reason: NAUSEA-FOR RESCUE AFTER 15 MIN - Objective Vital Signs: Vital Signs Temperature 97.7 F 08/20/17 22:00 Pulse Rate 77 08/20/17 22:00 Respiratory Rate 18 08/20/17 22:00 Blood Pressure 117/58 08/20/17 22:00 O2 Sat by Pulse Oximetry (%) 96 08/20/17 21:00 Cardiovascular: Yes: S1, S2 Respiratory: Yes: CTA Bilaterally Gastrointestinal: Yes: Soft, Distention Edema: No Neurological: Yes: Pre-Existing Deficit Labs: CBC, BMP 08/19/17 06:20 08/19/17 06:20 INR, PTT INR 1.34 (0.82-1.09) H 07/23/17 16:10 Problem List - Problems (1) Abscess Assessment/Plan: reccurent intraperotineal absces drainage cath remeoved off abx chris recheck labs today if normal WBC will dc home Code(s): L02.91 - CUTANEOUS ABSCESS, UNSPECIFIED (2) Bilateral hydronephrosis Assessment/Plan: removal of JJ stents by urology Code(s): N13.30 - UNSPECIFIED HYDRONEPHROSIS (3) Other megacolon Assessment/Plan: constipation mineral oil Code(s): K59.39 - OTHER MEGACOLON Assessment/Plan if labs are normal and enema given will dc home
[2017-08-21 10:09] LABS: BASO % 0.5 % (0-2.0); EOS % 7.7 % (0-4.5); HEMATOCRIT 29.2 % (35.4-49); HEMOGLOBIN 9.5 GM/dL (11.7-16.9); LYMPH % 24.4 % (8-40); MCHC 32.5 g/dl (32.0-35.9); MEAN CELL VOLUME 83.1 fl (80-96); MEAN PLT VOLUME 8.1 fl (7.5-11.1); MONO % 9.3 % (3.8-10.2); NEUT % 58.1 % (42.8-82.8); PLATELET COUNT 115 K/MM3 (134-434); RBC 3.51 M/mm3 (4.00-5.60); WHITE BLOOD COUNT 5.1 K/mm3 (4.0-10.0)
[2017-08-21 10:49] LABS: ALBUMIN 2.7 g/dl (3.4-5.0); ALK PHOS 99 U/L (45-117); ANION GAP 6 (8-16); BILIRUBIN,TOTAL 0.2 mg/dL (0.2-1.0); BLOOD UREA NITROGEN 24 mg/dL (7-18); CALCIUM 8.4 mg/dL (8.5-10.1); CHLORIDE 103 mmol/L (98-107); CO2 30 mmol/L (21-32); CREATININE 0.8 mg/dL (0.7-1.3); GLUCOSE,RANDOM 130 mg/dL (74-106); POTASSIUM 4.3 mmol/L (3.5-5.1); SGOT/AST 19 U/L (15-37); SGPT/ALT 28 U/L (12-78); SODIUM 139 mmol/L (136-145)
--- NOTE | 2017-08-21 12:12 | PN ---
Progress Note (short form) - Note Progress Note: labs seen and reviwed all ok no fever plan to send home today line removed Problem List - Problems (1) Abscess Code(s): L02.91 - CUTANEOUS ABSCESS, UNSPECIFIED (2) Bilateral hydronephrosis Code(s): N13.30 - UNSPECIFIED HYDRONEPHROSIS (3) Other megacolon Code(s): K59.39 - OTHER MEGACOLON
--- NOTE | 2017-08-21 15:20 | PN ---
Progress Note, Physician History of Present Illness: Pt with left retroperitoneal abscess and cellulitis (resolved) of left hip/ flank s/p IR drain and removal 2d ago Also with massive chronic fecal impaction. Nurses have been able to disimpact some at times, and he gets enemas intermittently. Antibiotics stopped. Had cysto with stent exchange on left and removal on right Thursday, Pelaez also changed. Primary team planning d/c home. Pt requests disimpaction of stool. - Current Medication List Current Medications: Active Medications Magnesium Hydroxide (Milk Of Magnesia -) 30 ml PO DAILY PRN PRN Reason: CONSTIPATION Last Admin: 08/16/17 23:21 Dose: 30 ml Ondansetron HCl (Zofran Injection) 4 mg IVPUSH Q6H PRN PRN Reason: NAUSEA AND/OR VOMITING Promethazine HCl (Phenergan Injection -) 12.5 mg IVPUSH Q6H PRN PRN Reason: NAUSEA-FOR RESCUE AFTER 15 MIN - Objective Vital Signs: Vital Signs Temperature 97.7 F 08/21/17 14:40 Pulse Rate 78 08/21/17 14:40 Respiratory Rate 16 08/21/17 14:40 Blood Pressure 102/65 08/21/17 14:40 O2 Sat by Pulse Oximetry (%) 95 08/21/17 10:00 Constitutional: Yes: Well Nourished, No Distress, Calm Eyes: Yes: Conjunctiva Clear, EOM Intact HENT: Yes: Atraumatic, Normocephalic Gastrointestinal: Yes: Soft (upper), Distention (firmly with stool), Palpable Mass (stool burden). No: Tenderness (T6 paraplegic) ...Rectal Exam: Yes: Sphincter Tone Normal (internal), Other (evacuated some gas , moderate amount of very soft stool disimpacted from vault, had few formed pieces in external portion of anal canal; no overall impact on massive stool burden) Genitourinary: Yes: Pelaez Present. No: Hematuria Extremities: Yes: External Rotation (hips). No: Cool, Cyanosis Integumentary: Yes: Other (site where drain removed without erythema, L hip/ flank without erythema or induration). No: Erythema, Rash Neurological: Yes: Alert, Oriented, Pre-Existing Deficit (T6 paraplegia) Labs: CBC, BMP 08/21/17 09:55 08/21/17 09:55 - ....Imaging Cat Scan: Report Reviewed, Image Reviewed (images personally reviewed from drain removal few days ago, sig decreased collection in L retroperitoneum/psoas area) Problem List - Problems (1) Retroperitoneal fluid collection Assessment/Plan: left retroperitoneal urine-based fluid collection/abscess, extending outward to left hip/flank area, with associated cellulitis of left hip/flank now resolved, s/p IR drain and removal will recur - pt has ureteral fistula to space per IR stent diverts much of urine but not all of it, so collection will continue to recur, requiring periodic drainage Code(s): R18.8 - OTHER ASCITES (2) Cellulitis of flank Assessment/Plan: left side resolved Code(s): L03.312 - CELLULITIS OF BACK [ANY PART EXCEPT BUTTOCK] (3) Obstruction of urinary stent Code(s): T83.89XA - OTH COMPLICATION OF GENITOURINARY PROSTH DEV/GRFT, INIT Qualifiers: Encounter type: sequela Qualified Code(s): T83.89XS - Other specified complication of genitourinary prosthetic devices, implants and grafts, sequela (4) Bilateral hydronephrosis Code(s): N13.30 - UNSPECIFIED HYDRONEPHROSIS (5) Other specified disorders of kidney and ureter Code(s): N28.89 - OTHER SPECIFIED DISORDERS OF KIDNEY AND URETER (6) Chronic indwelling Pelaez catheter Code(s): Z92.89 - PERSONAL HISTORY OF OTHER MEDICAL TREATMENT (7) Fecal impaction of colon Assessment/Plan: chronic problem secondary to Hirschsprung's compounded by neurogenic bowel manually disimpacted (30 mins) moderate amount of very soft brown stool with little overall impact on stool burden continue daily disimpaction of as much stool as possible while pt is in house and cannot do for self can be done by primary team, does not require surgical expertise may continue senna and oral motility agents, mag citrate or golytely might be of benefit enemas may be useful periodically - would use soap suds primarily, avoid mineral oil, as it only makes stool softer and greasier patient does not need further stool softeners - it is too soft to evacuate or disimpact easily as it is Code(s): K56.41 - FECAL IMPACTION (8) Other megacolon Code(s): K59.39 - OTHER MEGACOLON (9) Hirschsprung disease of rectosigmoid region Code(s): Q43.1 - HIRSCHSPRUNG'S DISEASE (10) Decubitus ulcer Code(s): L89.90 - PRESSURE ULCER OF UNSPECIFIED SITE, UNSPECIFIED STAGE Qualifiers: Pressure ulcer location: contiguous region involving back and buttock Pressure ulcer stage: unspecified pressure ulcer stage Laterality: unspecified laterality Qualified Code(s): L89.40 - Pressure ulcer of contiguous site of back, buttock and hip, unspecified stage (11) Neurogenic bladder Code(s): N31.9 - NEUROMUSCULAR DYSFUNCTION OF BLADDER, UNSPECIFIED (12) Paraplegia following spinal cord injury Code(s): G82.20 - PARAPLEGIA, UNSPECIFIED (13) Renal stones Code(s): N20.0 - CALCULUS OF KIDNEY (14) Urinoma Code(s): NBM8208 -
--- NOTE | 2017-08-22 07:32 | PN ---
Progress Note, Physician Chief Complaint: Left hip abscess History of Present Illness: NAD Pt has been discharged. Appeal filed by patient - Current Medication List Current Medications: Active Medications Magnesium Hydroxide (Milk Of Magnesia -) 30 ml PO DAILY PRN PRN Reason: CONSTIPATION Last Admin: 08/16/17 23:21 Dose: 30 ml Ondansetron HCl (Zofran Injection) 4 mg IVPUSH Q6H PRN PRN Reason: NAUSEA AND/OR VOMITING Promethazine HCl (Phenergan Injection -) 12.5 mg IVPUSH Q6H PRN PRN Reason: NAUSEA-FOR RESCUE AFTER 15 MIN - Objective Vital Signs: Vital Signs Temperature 98.1 F 08/21/17 22:00 Pulse Rate 70 08/21/17 22:00 Respiratory Rate 18 08/21/17 22:00 Blood Pressure 99/52 08/21/17 22:00 O2 Sat by Pulse Oximetry (%) 95 08/21/17 21:00 Constitutional: Yes: Well Nourished, No Distress, Calm Cardiovascular: Yes: Regular Rate and Rhythm Respiratory: Yes: Regular Gastrointestinal: Yes: Normal Bowel Sounds, Abdomen, Obese Neurological: Yes: Alert, Oriented Psychiatric: Yes: Alert, Oriented Labs: CBC, BMP 08/21/17 09:55 08/21/17 09:55 INR, PTT INR 1.34 (0.82-1.09) H 07/23/17 16:10 Problem List - Problems (1) Retroperitoneal fluid collection Assessment/Plan: -YA drain taken out -chronic due to urinary leak from kidneys because of renal stones and stents, which are changed this admission Code(s): R18.8 - OTHER ASCITES (2) Bilateral nephrolithiasis Code(s): N20.0 - CALCULUS OF KIDNEY (3) Chronic indwelling Pelaez catheter Assessment/Plan: 2/ to chronic neurogenic bladder -Pelaez changed Code(s): Z92.89 - PERSONAL HISTORY OF OTHER MEDICAL TREATMENT (4) Constipation due to neurogenic bowel Assessment/Plan: -chronic -laxatives -daily disimpaction by nursing Code(s): K59.00 - CONSTIPATION, UNSPECIFIED (5) Decubitus ulcer Assessment/Plan: seen by Dr Verdugo -clean with saline and betadine -abd dressing Code(s): L89.90 - PRESSURE ULCER OF UNSPECIFIED SITE, UNSPECIFIED STAGE Qualifiers: Pressure ulcer location: contiguous region involving back and buttock Pressure ulcer stage: unspecified pressure ulcer stage Laterality: unspecified laterality Qualified Code(s): L89.40 - Pressure ulcer of contiguous site of back, buttock and hip, unspecified stage (6) Effusion of hip Code(s): M25.459 - EFFUSION, UNSPECIFIED HIP Qualifiers: Laterality: left Qualified Code(s): M25.452 - Effusion, left hip (7) Hirschsprung disease of rectosigmoid region Code(s): Q43.1 - HIRSCHSPRUNG'S DISEASE Assessment/Plan see problem list
--- NOTE | 2017-08-23 14:25 | PN ---
Progress Note, Physician Chief Complaint: Left hip abscess History of Present Illness: NAD Pt has been discharged. Appeal filed by patient - Current Medication List Current Medications: Active Medications Magnesium Hydroxide (Milk Of Magnesia -) 30 ml PO DAILY PRN PRN Reason: CONSTIPATION Last Admin: 08/16/17 23:21 Dose: 30 ml Ondansetron HCl (Zofran Injection) 4 mg IVPUSH Q6H PRN PRN Reason: NAUSEA AND/OR VOMITING Promethazine HCl (Phenergan Injection -) 12.5 mg IVPUSH Q6H PRN PRN Reason: NAUSEA-FOR RESCUE AFTER 15 MIN - Objective Vital Signs: Vital Signs Temperature 98.3 F 08/23/17 10:00 Pulse Rate 71 08/23/17 10:00 Respiratory Rate 08/23/17 10:00 Blood Pressure 134/87 08/23/17 10:00 O2 Sat by Pulse Oximetry (%) 94 L 08/23/17 09:00 Constitutional: Yes: Well Nourished, No Distress, Calm Cardiovascular: Yes: Regular Rate and Rhythm Respiratory: Yes: Regular Gastrointestinal: Yes: Hypoactive Bowel Sounds Neurological: Yes: Alert, Oriented Psychiatric: Yes: Alert, Oriented Labs: CBC, BMP 08/21/17 09:55 08/21/17 09:55 INR, PTT INR 1.34 (0.82-1.09) H 07/23/17 16:10 Problem List - Problems (1) Retroperitoneal fluid collection Assessment/Plan: -YA drain taken out -chronic due to urinary leak from kidneys because of renal stones and stents, which are changed this admission Code(s): R18.8 - OTHER ASCITES (2) Bilateral nephrolithiasis Assessment/Plan: chronic staghorn calculus, followed by urology Code(s): N20.0 - CALCULUS OF KIDNEY (3) Chronic indwelling Pelaez catheter Assessment/Plan: 2/2 to chronic neurogenic bladder -Pelaez changed Code(s): Z92.89 - PERSONAL HISTORY OF OTHER MEDICAL TREATMENT (4) Constipation due to neurogenic bowel Assessment/Plan: -chronic -laxatives -daily disimpaction by nursing Code(s): K59.00 - CONSTIPATION, UNSPECIFIED (5) Decubitus ulcer Assessment/Plan: seen by Dr Verdugo -clean with saline and betadine -abd dressing Code(s): L89.90 - PRESSURE ULCER OF UNSPECIFIED SITE, UNSPECIFIED STAGE Qualifiers: Pressure ulcer location: contiguous region involving back and buttock Pressure ulcer stage: unspecified pressure ulcer stage Laterality: unspecified laterality Qualified Code(s): L89.40 - Pressure ulcer of contiguous site of back, buttock and hip, unspecified stage (6) Effusion of hip Code(s): M25.459 - EFFUSION, UNSPECIFIED HIP Qualifiers: Laterality: left Qualified Code(s): M25.452 - Effusion, left hip (7) Hirschsprung disease of rectosigmoid region Code(s): Q43.1 - HIRSCHSPRUNG'S DISEASE Assessment/Plan see problem list
[2017-08-24 16:57] VITALS: BP 138/67; PULSE 71; TEMP 97
[2017-08-25 14:17] LABS: CA OXALATE MONOHYDR. 10 % (.); CALCIUM PHOSPHATE 90 % (.); WEIGHT 3.2 mg (.)
== END 2017-08-24 12:46 | disposition home health service (06) | DRG 987 ==
LOC: JER 13:11 → JERBED 18:36 → J4S 22:16
PROVIDERS: ADMIT Family Medicine; ATTEND Family Medicine
PROC: 0W9J30Z Drainage of Pelvic Cavity with Drainage Device, Percutaneous Approach (ICD-10-PCS; 2017-07-24)
PROC: 05HM33Z Insertion of Infusion Device into Right Internal Jugular Vein, Percutaneous Approach (ICD-10-PCS; 2017-08-06)
PROC: B513ZZA Fluoroscopy of Right Jugular Veins, Guidance (ICD-10-PCS; 2017-08-06)
PROC: B543ZZA Ultrasonography of Right Jugular Veins, Guidance (ICD-10-PCS; 2017-08-06)
PROC: 0T778DZ Dilation of Left Ureter with Intraluminal Device, Via Natural or Artificial Opening Endoscopic (ICD-10-PCS; 2017-08-14)
PROC: BT1BZZZ Fluoroscopy of Bladder and Urethra (ICD-10-PCS; 2017-08-14)
PROC: 0TP98DZ Removal of Intraluminal Device from Ureter, Via Natural or Artificial Opening Endoscopic (ICD-10-PCS; 2017-08-14)
PROC: 0T2BX0Z Change Drainage Device in Bladder, External Approach (ICD-10-PCS; 2017-08-14)
PROC: 0TC78ZZ Extirpation of Matter from Left Ureter, Via Natural or Artificial Opening Endoscopic (ICD-10-PCS; principal; 2017-08-14 10:00)
DX: K65.1 Peritoneal abscess (principal); L89.214 Pressure ulcer of right hip, stage 4; L89.154 Pressure ulcer of sacral region, stage 4; L89.324 Pressure ulcer of left buttock, stage 4; L89.314 Pressure ulcer of right buttock, stage 4; G82.20 Paraplegia, unspecified; M46.27 Osteomyelitis of vertebra, lumbosacral region; R18.8 Other ascites; Q43.1 Hirschsprung's disease; L03.312 Cellulitis of back [any part except buttock and flank]; L03.116 Cellulitis of left lower limb; T83.89XA Other specified complication of genitourinary prosthetic devices, implants and grafts, initial encounter; N13.2 Hydronephrosis with renal and ureteral calculous obstruction; J84.9 Interstitial pulmonary disease, unspecified; R64 Cachexia; N39.0 Urinary tract infection, site not specified; D69.59 Other secondary thrombocytopenia; N31.9 Neuromuscular dysfunction of bladder, unspecified; T36.8X5A Adverse effect of other systemic antibiotics, initial encounter; Y84.6 Urinary catheterization as the cause of abnormal reaction of the patient, or of later complication, without mention of misadventure at the time of the procedure; Z16.35 Resistance to multiple antimicrobial drugs; B95.7 Other staphylococcus as the cause of diseases classified elsewhere; B96.1 Klebsiella pneumoniae [K. pneumoniae] as the cause of diseases classified elsewhere; B96.29 Other Escherichia coli [E. coli] as the cause of diseases classified elsewhere; K59.09 Other constipation; J44.9 Chronic obstructive pulmonary disease, unspecified; D64.9 Anemia, unspecified; F17.210 Nicotine dependence, cigarettes, uncomplicated; Z68.21 Body mass index [BMI] 21.0-21.9, adult
CPT/HCPCS: 36415; 36556; 49406; 72131-TC; 74018-TC-FY; 74176-TC; 76000-TC-FY; 76870-TC; 77001-TC-FY; 78315-TC; 78708-TC; 80048; 80053; 81003; 81015; 82360; 82570; 83605; 83735; 84100; 85025; 85027; 85610; 86850; 86870; 86900; 86901; 86902; 87040; 87070; 87075; 87077; 87086; 87186; 87205; 87899; 88300-TC; 94760; 99281-25; A9503; A9562; C1729; C1751; C1769; G0480

== ENCOUNTER 2018-08-17 12:08 | Inpatient (IN) | payer OTHER ==
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
--- NOTE | 2018-08-17 14:56 | PDOC ---
Documentation entered by Ioana Posadas SCRIBE, acting as scribe for Nabil Santiago MD. Nabil Santiago MD: This documentation has been prepared by the Katharina macias Adrianna, SCRIBE, under my direction and personally reviewed by me in its entirety. I confirm that the documentation accurately reflects all work, treatment, procedures, and medical decision making performed by me. Attending Attestation - Resident Resident Name: KellyMonalisa - ED Attending Attestation I have performed the following: I have examined & evaluated the patient, The case was reviewed & discussed with the resident, I agree w/resident's findings & plan - HPI HPI: 08/17/18 14:50 53y/o M h/o T6 plegia, indwelling urinary cathether with L ureteral stent and chronic b/l hydronephrosis, s/p change in his hull Thursday presents now with decreased urine output and darkening urine color. chills but no fever, asx below T6 so doesn't feel pain but reports throbbing in his flanks. - Physicial Exam PE: 08/17/18 14:53 afebrile, vss bedbound, plegia s1s2 rrr, ctab abd soft. hull in place with light orange urine in bag, no blood clots ? distended bladder, R hydro on POCUS - Medical Decision Making EXAM#: TYPE/EXAM: RESULT: RAD/CHEST X-RAY PORTABLE* Cough questionable pneumonia Impression. No interval change from May 12, 2017. No evidence of a pulmonary infiltrates, pleural effusion, or pneumothorax Reported By: John Cooper MD 08/17/18 13:57 08/17/18 14:01 08/17/18 14:54 53y/o M with T6 plegia, indwelling hull and chronic hydronephrosis with L stent p/w decreased UOP and possible hematuria since Hull change 4d ago. ? infection v. obstruction/migration of stent v. re-obstruction of R ureter s/p removed stent. labs, ua u/s, ? ctap discuss with urology 08/17/18 15:20 EXAM#: TYPE/EXAM: RESULT: [id number] US/KIDNEY / RENAL US Evaluate for bilateral hydronephrosis IMPRESSION: Large exophytic right renal simple cyst measuring 8.2 x 7.5 cm. Right renal stones without gross evidence of hydronephrosis. Multiple left renal stones with moderate to marked hydronephrosis. Incidentally noted gallstones without sonographic evidence of acute cholecystitis. Reported By: Jose Angel Field MD 08/17/18 15:08
[2018-08-17 16:11] LABS: BASO % 0.2 % (0-2.0); EOS % 0.2 % (0-4.5); HEMATOCRIT 34.8 % (35.4-49); HEMOGLOBIN 11.2 GM/dL (11.7-16.9); LYMPH % 8.2 % (8-40); MCH 24.7 pg (25.7-33.7); MCHC 32.2 g/dl (32.0-35.9); MEAN CELL VOLUME 76.8 fl (80-96); MEAN PLT VOLUME 8.1 fl (7.5-11.1); MONO % 9.6 % (3.8-10.2); NEUT % 81.8 % (42.8-82.8); RBC 4.53 M/mm3 (4.00-5.60); RDW 17.6 % (11.9-15.9); WHITE BLOOD COUNT 18.2 K/mm3 (4.0-10.0)
[2018-08-17] MEDS ORDERED: MEROPENEM 1 GM in DEXTROSE 5%-WATER 100 ML IVPB ONE (16:23)
[2018-08-17] MEDS ORDERED: MEROPENEM 1 GM VIAL (RESTRICTED TO ID) IVPB ONE (17:48)
[2018-08-17 17:55] LABS: EPI CELLS 3.6 /HPF (0-5/HPF); HYALINE CASTS 13 /lpf (0-8); URINE APPEARANCE TURBID; URINE BACTERIA 5935.7 /hpf (NEGATIVE); URINE BILIRUBIN NEGATIVE (NEGATIVE); URINE COLOR DK YELLOW; URINE GLUCOSE (UA) NEGATIVE (NEGATIVE); URINE KETONE NEGATIVE (NEGATIVE); URINE LEUK ESTERASE 3+ (NEGATIVE); URINE NITRITE NEGATIVE (NEGATIVE); URINE PROTEIN 2+ (NEGATIVE); URINE UROBILINOGEN 0.2 mg/dL (0.2-1.0); URINE WBC 700 /hpf (0-5)
[2018-08-17 17:57] LABS: PLATELET COUNT 338 K/MM3 (134-434); PLATELET ESTIMATE ADEQUATE
[2018-08-17 19:21] LABS: URINE RBC 109.6 /hpf (0-4)
[2018-08-17 19:22] LABS: YEAST NEGATIVE (NEGATIVE)
--- NOTE | 2018-08-17 19:54 | HP ---
Admitting History and Physical - Primary Care Physician PCP: Leola House - Admission Chief Complaint: DYSURIA History of Present Illness: 53 yo M with PMH of level T6 paraplegia and recurrent UTIs presents, indwelling urinary cathether with L ureteral stent and chronic b/l hydronephrosis, s/p change in his hull on Sunday 08/13 now presents now with decreased urine output , dysuria and dark colored urine. He denies fever/chills/N/V/flank pain. In ED: Vitals: BP 120/72, T 98.1, HR 82, O2sat 99, RR 16 Labs: WBC 18, CMP cancelled due to hemolysis UA: +2 protein, +3 leuk, +3 bld, large bacteria renal sono demonstrates: large exophytic right renal simple cyst measuring 8.2 x 7.5 cm. Right renal stones without gross evidence of hydronephrosis. Multiple left renal stones with moderate to marked hydronephrosis. CXR: normal Pt admitted for continued management. History Source: Patient Limitations to Obtaining History: No Limitations - Past Medical History Pulmonary: Yes: COPD Gastrointestinal: Yes: Constipation (Neurogenic bowel with persistent obstipation and megasigmoid), GI Bleed, Other (Hirschsprung's disease, neurogenic bowel) Hepatobiliary: Yes: Cholelithiasis Renal/: Yes: Neurogenic Bladder (indwelling Hull), Renal Calculi (bilateral staghorn with h/o obstructions and other calculi), UTI, Other (JJ bilat stents, permanent Hull; partially duplicated left renal collecting system) Heme/Onc: Yes: Anemia Infectious Disease: Yes: MRSA, Other (ESBL, resistant organisms, multiple abx courses; recurrent L retroperitoneal -> flank abscess secondary to urinary overflow from kidney s/p multiple percutaneous interventions with intermittent hydronephrosis) Musculoskeletal: Yes: Paraplegia (T6 level), Other (multiple sacral and ischial decubiti) - Past Surgical History Past Surgical History: Yes: Stent (bilateral ureteral stents - multiple exchanges) Additional Past Surgical History: JJ bilat stents, permanent Hull) - Advance Directives Advance Directives: Yes: Health Care Proxy (Mother: Love [phone]) - Smoking History Smoking history: Former smoker Have you smoked in the past 12 months: No Aproximately how many cigarettes per day: 20 (1PPD x 30+ yrs) If you are a former smoker, when did you quit?: 03/2014 - Alcohol/Substance Use Hx Alcohol Use: No History of Substance Use: reports: None (for at least a year) - Social History ADL: Support Services (his mother lives in the same house also has home health aides) History of Recent Travel: No Home Medications - Allergies Allergies/Adverse Reactions: Allergies Allergy/AdvReac Type Severity Reaction Status Date / Time polymyxin B Allergy Mild Itching Verified 05/12/17 11:18 - Home Medications Home Medications: Ambulatory Orders Multivitamin [Multiple Vitamins] 1 tab PO DAILY 08/04/18 Levofloxacin [Levaquin] 500 mg PO 08/17/18 Family Disease History - Family Disease History Family Disease History: Diabetes: Mother, Heart Disease: Father Review of Systems - Review of Systems Constitutional: reports: No Symptoms Eyes: reports: No Symptoms HENT: reports: No Symptoms Neck: reports: No Symptoms Cardiovascular: reports: No Symptoms Respiratory: reports: No Symptoms Gastrointestinal: reports: No Symptoms Genitourinary: reports: Dysuria, Pain Breasts: reports: No Symptoms Reported Musculoskeletal: reports: No Symptoms Integumentary: reports: No Symptoms Neurological: reports: Pre-Existing Deficit Endocrine: reports: No Symptoms Hematology/Lymphatic: reports: No Symptoms Psychiatric: reports: No Symptoms Physical Examination Vital Signs: Vital Signs Temperature 98.1 F 08/17/18 12:31 Pulse Rate 82 08/17/18 12:31 Respiratory Rate 16 08/17/18 12:31 Blood Pressure 120/72 08/17/18 12:31 O2 Sat by Pulse Oximetry (%) 98 08/17/18 19:20 Constitutional: Yes: No Distress, Anxious Eyes: Yes: Conjunctiva Clear, PERRL HENT: Yes: Atraumatic, Normocephalic Neck: Yes: Supple, Trachea Midline Cardiovascular: Yes: Regular Rate and Rhythm, Murmur (systolic murmur) Respiratory: Yes: CTA Bilaterally Gastrointestinal: Yes: Soft, Hyperactive Bowel Sounds ...Rectal Exam: Yes: Deferred Renal/: Yes: Hull Present Musculoskeletal: Yes: Muscle Weakness Extremities: Yes: WNL Edema: No Peripheral Pulses: Left Radial: 2+, Right Radial: 2+, Left Doralis Pedis: 2+, Right Dorsalis Pedis: 2+ Integumentary: Yes: WNL Neurological: Yes: Alert, Oriented, Weakness Psychiatric: Yes: Alert, Oriented Labs: CBC, BMP 08/17/18 15:54 08/17/18 15:54 Imaging - Results Chest X-ray: Report Reviewed (CXR 08/17/2018 Impression: No interval change from May 12, 2017. No evidence of a pulmonary infiltrates, pleural effusion, or pneumothorax Reported By: John Cooper MD 08/17/18 2246) X-ray: Report Reviewed (CXR 08/17/2018 Impression. No interval change from May 12, 2017. No evidence of a pulmonary infiltrates, pleural effusion, or pneumothorax Reported By: John Cooper MD 08/17/18 0426) Cat Scan: Report Reviewed (CT abd and pelvis 08/17/2018 IMPRESSION: In comparison to a CT exam of 08/19/2017 interval recurrence of a left iliopsoas fluid collection is seen which currently measures approximately 19 x 6 x 5 cm. Interval resolution of dilatation of the left renal pelvis and ureter is noted. As on the prior study several left renal hypodense foci are noted within the upper and lower poles which may represent persistent calyceal dilatation and/or persistent intrarenal fluid collections. A left nephroureteral stent is again seen in place. Note is again made of several small adjacent 3 mm calculi within the left mid ureter. Interval resolution of right hydroureteronephrosis is noted. Bilateral renal calculi are again seen. There is somewhat improved extensive colonic fecal retention. Additional findings as above Reported By: Jayme Pozo MD 08/17/18 8103) Ultrasound: Report Reviewed (REnal sono 08/17/2018 IMPRESSION: Large exophytic right renal simple cyst measuring 8.2 x 7.5 cm. Right renal stones without gross evidence of hydronephrosis. Multiple left renal stones with moderate to marked hydronephrosis. Incidentally noted gallstones without sonographic evidence of acute cholecystitis. Reported By: Jose Angel Field MD 08/17/18 0331) Problem List - Problems (1) Systolic murmur Assessment/Plan: echocardiogram ordered consider cardiology consult Code(s): R01.1 - CARDIAC MURMUR, UNSPECIFIED (2) Chronic indwelling Hull catheter Assessment/Plan: follow up urine culture urology consult placed Code(s): Z92.89 - PERSONAL HISTORY OF OTHER MEDICAL TREATMENT (3) UTI (lower urinary tract infection) Assessment/Plan: ID consult due to long h/o ESBL UTI continue meropenem 1gm hold home levaquin trend WBC and temp curve Renal sono with large exophytic cyst Code(s): N39.0 - URINARY TRACT INFECTION, SITE NOT SPECIFIED (4) Prophylactic measure Assessment/Plan: bowel regimen with senna/colace MVI daily Turn and position Q2hrs Code(s): Z29.9 - ENCOUNTER FOR PROPHYLACTIC MEASURES, UNSPECIFIED Assessment/Plan Code status: Full Visit type - Emergency Visit Emergency Visit: Yes ED Registration Date: 08/17/18 Care time: The patient presented to the Emergency Department on the above date and was hospitalized for further evaluation of their emergent condition. - New Patient This patient is new to me today: Yes Date on this admission: 08/18/18 - Critical Care Critical Care patient: No
[2018-08-17] MEDS ORDERED: SENNOSIDES 8.6MG TABLET (FP) PO PRN (19:55)
[2018-08-17] MEDS: SODIUM CHLORIDE 0.45% 1,000 ML IV SCH (22:24)
[2018-08-18 00:56] VITALS: BMI 21.2
[2018-08-18] MEDS ORDERED: MEROPENEM 1 GM VIAL (RESTRICTED TO ID) IVPB ONE ×2 (08:57→18:10)
[2018-08-18] MEDS ORDERED: DEXTROSE 5%-WATER 100 ML IVPB ONE ×2 (08:57→18:10)
[2018-08-18] MEDS: MULTIVITAMINS (DAILY MVI) TABLET (FP) PO SCH (09:39)
[2018-08-18] MEDS: MEROPENEM 1 GM in DEXTROSE 5%-WATER 100 ML IVPB ONE ×2 (09:39→15:20)
[2018-08-18] MEDS: DOCUSATE SODIUM 100 MG CAPSULE (FP) PO PRN (09:39)
--- NOTE | 2018-08-18 10:40 | PN ---
Progress Note, Physician Chief Complaint: AWAKE ALERT EVENTS AND NOTES REVIEWED - Current Medication List Current Medications: Active Medications Acetaminophen (Tylenol -) 650 mg PO Q6H PRN PRN Reason: FEVER Docusate Sodium (Colace -) 100 mg PO BID PRN PRN Reason: CONSTIPATION Last Admin: 08/18/18 09:39 Dose: 100 mg Sodium Chloride (1/2 Normal Saline) 1,000 mls @ 42 mls/hr IV ASDIR GISEL Last Admin: 08/17/18 22:24 Dose: 42 mls/hr Multivitamins/Minerals/Vitamin C (Tab-A-Vit -) 1 tab PO DAILY GISEL Last Admin: 08/18/18 09:39 Dose: 1 tab Senna (Senna -) 2 tab PO HS PRN PRN Reason: CONSTIPATION - Objective Vital Signs: Vital Signs Temperature 98.7 F 08/18/18 09:50 Pulse Rate 78 08/18/18 09:50 Respiratory Rate 18 08/18/18 09:50 Blood Pressure 102/67 08/18/18 09:50 O2 Sat by Pulse Oximetry (%) 96 08/17/18 23:56 Constitutional: Yes: Mild Distress Eyes: Yes: WNL HENT: Yes: WNL Neck: Yes: WNL Cardiovascular: Yes: Regular Rate and Rhythm Respiratory: Yes: WNL Gastrointestinal: Yes: Distention Genitourinary: Yes: Other Musculoskeletal: Yes: Muscle Weakness Extremities: Yes: Deformity Integumentary: Yes: Pressure Ulcer (STAGE 4 AND UNSTAGEABLE SACRAL/BUTTOCK STAGE2 ON HEELS) Wound/Incision: Yes: Dressing Removed Neurological: Yes: Pre-Existing Deficit, Weakness ...Motor Strength: LLE, RLE Psychiatric: Yes: Other Labs: CBC, BMP 08/17/18 15:54 08/17/18 15:54 Problem List - Problems (1) Flank pain Code(s): R10.9 - UNSPECIFIED ABDOMINAL PAIN (2) Abscess Code(s): L02.91 - CUTANEOUS ABSCESS, UNSPECIFIED (3) Anemia Code(s): D64.9 - ANEMIA, UNSPECIFIED Qualifiers: Anemia type: iron deficiency Other causes of anemia: due to other specified chronic disease (4) Bilateral hydronephrosis Code(s): N13.30 - UNSPECIFIED HYDRONEPHROSIS (5) Chronic indwelling Pinzon catheter Code(s): Z92.89 - PERSONAL HISTORY OF OTHER MEDICAL TREATMENT (6) Decubitus ulcer Code(s): L89.90 - PRESSURE ULCER OF UNSPECIFIED SITE, UNSPECIFIED STAGE Qualifiers: Laterality: unspecified laterality Qualified Code(s): L89.40 - Pressure ulcer of contiguous site of back, buttock and hip, unspecified stage (7) Leukocytosis Code(s): D72.829 - ELEVATED WHITE BLOOD CELL COUNT, UNSPECIFIED (8) MDRO (multiple drug resistant organisms) resistance Code(s): Z16.35 - RESISTANCE TO MULTIPLE ANTIMICROBIAL DRUGS (9) Obstructive uropathy Code(s): N13.9 - OBSTRUCTIVE AND REFLUX UROPATHY, UNSPECIFIED (10) Paraplegia following spinal cord injury Code(s): G82.20 - PARAPLEGIA, UNSPECIFIED Assessment/Plan IV ABX PER ID NEED UROLOGY TO CHANGE PINZON TLC IV ACCESS SURGERY F/U NUTRTION TOLERATED PO WOUND CARE/VASC SX EVAL
--- NOTE | 2018-08-18 10:51 | PN ---
Progress Note (short form) - Note Progress Note: ID CONSULT DICTATED UTI R/O SEPSIS SECONDARY TO UTI NEUROGENIC BLADDER/ CHRONIC INDWELLING PINZON HX MDRO OBTAIN BC EMPIRIC MEROPENEM/ LINEZOLID
[2018-08-18 11:32] LABS: BASO % 0.5 % (0-2.0); EOS % 0.7 % (0-4.5); HEMATOCRIT 37.8 % (35.4-49); HEMOGLOBIN 11.9 GM/dL (11.7-16.9); LYMPH % 10.4 % (8-40); MCH 24.8 pg (25.7-33.7); MCHC 31.4 g/dl (32.0-35.9); MONO % 9.6 % (3.8-10.2); NEUT % 78.8 % (42.8-82.8); PLATELET COUNT 314 K/MM3 (134-434); RBC 4.79 M/mm3 (4.00-5.60); RDW 17.5 % (11.9-15.9); WHITE BLOOD COUNT 13.1 K/mm3 (4.0-10.0)
[2018-08-18 12:14] LABS: ALBUMIN 2.3 g/dl (3.4-5.0); BILIRUBIN,TOTAL 0.5 mg/dL (0.2-1); CALCIUM 8.6 mg/dL (8.5-10.1); MAGNESIUM 2.6 mg/dL (1.8-2.4); POTASSIUM 4.2 mmol/L (3.5-5.1); TOT PROT 7.3 g/dl (6.4-8.2)
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
--- NOTE | 2018-08-18 13:06 | ECHO ---
Name: CORWIN HILLSRY Exam:Adult Echocardiogram Study Date: 08/18/2018 07:36 AM Age: 53 yrs Reason For Study: systolic murmur Height: 69 in Weight: 145 lb BSA: 1.8 m2 MMode/2D Measurements & Calculations IVSd: 1.00 cm Ao root diam: 3.3 cm LVIDd: 3.8 cm LA dimension: 2.5 cm LVIDs: 2.2 cm LVPWd: 0.84 cm EDV(Teich): 63.3 ml LVOT diam: 2.0 cm ESV(Teich): 15.8 ml LAV (MOD-bp): 35.1 ml Doppler Measurements & Calculations MV E max tejinder: 92.5 cm/sec MR max tejinder: 499.5 cm/sec MV A max tejinder: 110.2 cm/sec MR max P.8 mmHg MV E/A: 0.84 MV dec time: 0.15 sec PA V2 max: 143.9 cm/sec Med Peak E' Tejinder: 7.3 cm/sec PA max P.3 mmHg Med E/e': 12.7 Lat Peak E' Tejinder: 12.1 cm/sec Lat E/e': 7.7 PI Vmax: 115.4 cm/sec Procedure A two-dimensional transthoracic echocardiogram with color flow and Doppler was performed. Left Ventricle The left ventricular size, thickness and function are normal. The left ventricular ejection fraction is normal. E/A reversal consistent with but not diagnostic of poor LV compliance. The left ventricular w all motion is normal. Right Ventricle The right ventricle is normal in size and function. Atria Normal left and right atrial size and function. Mitral Valve There is trivial mitral valve thickening. There is no mitral valve stenosis. There is trace to mild m itral regurgitation. Tricuspid Valve There is mild tricuspid valve thickening. There is no tricuspid stenosis. There was insufficient TR d etected to calculate RV systolic pressure. Aortic Valve The aortic valve is not well visualized. No hemodynamically significant valvular aortic stenosis. No aortic regurgitation is present. Pulmonic Valve The pulmonic valve is not well visualized. There is no pulmonic valvular stenosis. Mild pulmonic valv ular regurgitation. Great Vessels The aortic root is normal size. Pericardium/Pleura There is no pericardial effusion. Interpretation Summary The left ventricular wall motion is normal. The left ventricular ejection fraction is normal. The left ventricular size, thickness and function are normal There is trace to mild mitral regurgitation. E/A reversal consistent with but not diagnostic of poor LV compliance There was insufficient TR detected to calculate RV systolic pressure. MD Flip Guidry 08/18/2018 01:05 PM
--- NOTE | 2018-08-18 15:49 | CONSULT ---
Consult Consult Specialty:: Podiatry Reason for Consultation:: wound left fibular malleoli. wound lateral right foot - History of Present Illness Chief Complaint: wounds right foot and left ankle - Past Medical History Pulmonary: Yes: COPD Gastrointestinal: Yes: Constipation (Neurogenic bowel with persistent obstipation and megasigmoid), GI Bleed, Other (Hirschsprung's disease, neurogenic bowel) Hepatobiliary: Yes: Cholelithiasis Renal/: Yes: Neurogenic Bladder (indwelling Pelaez), Renal Calculi (bilateral staghorn with h/o obstructions and other calculi), UTI, Other (JJ bilat stents, permanent Pelaez; partially duplicated left renal collecting system) Infectious Disease: Yes: MRSA, Other (ESBL, resistant organisms, multiple abx courses; recurrent L retroperitoneal -> flank abscess secondary to urinary overflow from kidney s/p multiple percutaneous interventions with intermittent hydronephrosis) Musculoskeletal: Yes: Paraplegia (T6 level), Other (multiple sacral and ischial decubiti) - Past Surgical History Past Surgical History: Yes: Stent (bilateral ureteral stents - multiple exchanges) - Alcohol/Substance Use Hx Alcohol Use: No History of Substance Use: reports: None (for at least a year) - Smoking History Smoking history: Former smoker Have you smoked in the past 12 months: No Aproximately how many cigarettes per day: 15 If you are a former smoker, when did you quit?: 03/2014 - Social History Usual Living Arrangement: With Parent ADL: Support Services (his mother lives in the same house also has home health aides) History of Recent Travel: No Home Medications - Allergies Allergies/Adverse Reactions: Allergies Allergy/AdvReac Type Severity Reaction Status Date / Time polymyxin B Allergy Mild Itching Verified 05/12/17 11:18 - Home Medications Home Medications: Ambulatory Orders Multivitamin [Multiple Vitamins] 1 tab PO DAILY 08/04/18 Levofloxacin [Levaquin] 500 mg PO 08/17/18 Family Disease History - Family Disease History Family Disease History: Diabetes: Mother, Heart Disease: Father Physical Exam Vital Signs: Vital Signs Temperature 98.1 F 08/18/18 14:00 Pulse Rate 74 08/18/18 14:00 Respiratory Rate 20 08/18/18 14:00 Blood Pressure 99/60 08/18/18 14:00 O2 Sat by Pulse Oximetry (%) 96 08/18/18 09:00 Extremities: Yes: Other (vsgi, ns absent quadrapalegic, +grade 2-3 wound left ankle fibular malleoli, -mal odor,-drainage, +grade 2-3 wound right posterior lateral foot, +mal odor, -drainage, -cellulitis) Labs: CBC, BMP 08/18/18 11:00 08/18/18 11:00 Assessment/Plan b/l wounds Santyl b/l wounds. No tape on skin. Please use kerlix. will follow. Xray left ankle and right foot.
[2018-08-18] MEDS: LINEZOLID 600 MG PREMIX BAG 600 MG/300 ML BAG IVPB SCH ×2 (16:42→23:37)
--- NOTE | 2018-08-18 16:55 | PROC ---
Central Line Insertion - Procedure Note TIME OUT performed prior to this procedure with verbal confirmation of correct patient identity, correct side, agreement of the procedure, correct patient position, availability of necessary equipment. The consent form is complete and accurate. Risk of possible infection, bleeding have been discussed with the patient. Safety precautions based on patient history or medication use has been addressed. Indication: Poor Venous Access Consent on Chart: Yes Central Line: Other (Peripheral midline catheter) Position: Supine Area prepped with Chlorhexidine solution then draped using sterile barrier protection. Anesthesia: Lidocaine 1% Ultrasound Guided Assistance: Yes Site: Left cephalic vein Dark venous non-pulsatile flow noted from hub of needle. The catheter was introduced. Guide wire removed intact. Each port aspirated then flushed with sterile normal saline and capped. Line secured to skin with secure device. Sterile occlusive dressing applied. No complications. Patient tolerated the procedure well. Midline catheter is clear to use immediately. Catheter is NOT CENTRALLY LOCATED.
[2018-08-18] MEDS: COLLAGENASE CLOSTRIDIUM HIST. 30 GRAMS TUBE TP SCH (17:24)
[2018-08-18] MEDS: MEROPENEM 1 GM in DEXTROSE 5%-WATER 100 ML IVPB SCH (18:22)
[2018-08-18] MEDS ORDERED: PT OWN MED DRAWER 7, Y5N ONE (21:31)
[2018-08-18] MEDS: SODIUM CHLORIDE 0.45% 1,000 ML IV SCH (23:37)
[2018-08-19] MEDS ORDERED: DEXTROSE 5%-WATER 100 ML IVPB ONE ×4 (00:15→21:03)
[2018-08-19] MEDS ORDERED: MEROPENEM 1 GM VIAL (RESTRICTED TO ID) IVPB ONE ×4 (00:15→21:03)
[2018-08-19] MEDS: MEROPENEM 1 GM in DEXTROSE 5%-WATER 100 ML IVPB SCH ×3 (01:21→17:15)
[2018-08-19 07:21] LABS: ALBUMIN 1.9 g/dl (3.4-5.0); BILIRUBIN,TOTAL 0.2 mg/dL (0.2-1); CALCIUM 7.7 mg/dL (8.5-10.1); CREATININE 0.7 mg/dL (0.55-1.3); POTASSIUM 3.5 mmol/L (3.5-5.1)
[2018-08-19 07:25] LABS: HEMATOCRIT 29.6 % (35.4-49); HEMOGLOBIN 9.4 GM/dL (11.7-16.9); MCH 24.5 pg (25.7-33.7); MCHC 31.8 g/dl (32.0-35.9); MEAN CELL VOLUME 77.1 fl (80-96); MEAN PLT VOLUME 7.8 fl (7.5-11.1); PLATELET COUNT 326 K/MM3 (134-434); RBC 3.85 M/mm3 (4.00-5.60); RDW 17.1 % (11.9-15.9); WHITE BLOOD COUNT 11.5 K/mm3 (4.0-10.0)
[2018-08-19] MEDS: ACETAMINOPHEN 325 MG TABLET (FP) PO PRN ×2 (09:13→21:39)
[2018-08-19] MEDS: COLLAGENASE CLOSTRIDIUM HIST. 30 GRAMS TUBE TP SCH (09:17)
[2018-08-19] MEDS: DOCUSATE SODIUM 100 MG CAPSULE (FP) PO PRN (10:23)
[2018-08-19] MEDS: MULTIVITAMINS (DAILY MVI) TABLET (FP) PO SCH (10:23)
[2018-08-19] MEDS: LINEZOLID 600 MG PREMIX BAG 600 MG/300 ML BAG IVPB SCH ×2 (10:24→23:39)
[2018-08-19] MEDS ORDERED: MINERAL OIL ENEMA 133 ML ENEMA PR PRN (11:59)
[2018-08-19] MEDS ORDERED: PANTOPRAZOLE 40 MG TABLET (FP) PO ONE (18:39)
--- NOTE | 2018-08-19 18:39 | PN ---
Progress Note, Physician Chief Complaint: ASLEEP EVENTS AND NOTES REVIEWED - Current Medication List Current Medications: Active Medications Acetaminophen (Tylenol -) 650 mg PO Q6H PRN PRN Reason: FEVER Last Admin: 08/19/18 09:13 Dose: 650 mg Collagenase (Santyl -) 1 applic TP DAILY [facility]; Protocol Last Admin: 08/19/18 09:17 Dose: Not Given Docusate Sodium (Colace -) 100 mg PO BID PRN PRN Reason: CONSTIPATION Last Admin: 08/19/18 10:23 Dose: 100 mg Sodium Chloride (1/2 Normal Saline) 1,000 mls @ 42 mls/hr IV ASDIR GISEL Last Admin: 08/18/18 23:37 Dose: Not Given Meropenem 1 gm/ Dextrose 100 mls @ 200 mls/hr IVPB Q8H-IV GISEL Last Admin: 08/19/18 17:15 Dose: 200 mls/hr Linezolid (Zyvox 600 Mg Premix Bag (Restricted To Id) -) 600 mg in 300 mls @ 300 mls/hr IVPB Q12H GISEL; Protocol Last Admin: 08/19/18 10:24 Dose: 300 mls/hr Ibuprofen (Caldolor Injection -) 400 mg IVPB Q8H PRN PRN Reason: FEVER Mineral Oil (Fleet Mineral Oil Rectal Enema -) 133 ml MO DAILY PRN PRN Reason: CONSTIPATION Multivitamins/Minerals/Vitamin C (Tab-A-Vit -) 1 tab PO DAILY GISEL Last Admin: 08/19/18 10:23 Dose: 1 tab Senna (Senna -) 2 tab PO HS PRN PRN Reason: CONSTIPATION - Objective Vital Signs: Vital Signs Temperature 97.7 F 08/19/18 16:53 Pulse Rate 71 08/19/18 16:53 Respiratory Rate 18 08/19/18 16:53 Blood Pressure 97/60 08/19/18 16:53 O2 Sat by Pulse Oximetry (%) 99 08/19/18 09:00 Constitutional: Yes: Mild Distress Eyes: Yes: WNL HENT: Yes: WNL Neck: Yes: WNL Cardiovascular: Yes: Regular Rate and Rhythm Respiratory: Yes: Diminished Gastrointestinal: Yes: Soft, Distention Genitourinary: Yes: Pinzon Present Musculoskeletal: Yes: Muscle Weakness Integumentary: Yes: Pressure Ulcer, Other Wound/Incision: Yes: Dressing Dry and Intact Neurological: Yes: Pre-Existing Deficit, Other ...Motor Strength: LLE, RLE Psychiatric: Yes: Other Labs: CBC, BMP 08/19/18 06:00 08/19/18 06:00 Problem List - Problems (1) Flank pain Code(s): R10.9 - UNSPECIFIED ABDOMINAL PAIN (2) Abscess Code(s): L02.91 - CUTANEOUS ABSCESS, UNSPECIFIED (3) Anemia Code(s): D64.9 - ANEMIA, UNSPECIFIED Qualifiers: Anemia type: iron deficiency Other causes of anemia: due to other specified chronic disease (4) Bilateral hydronephrosis Code(s): N13.30 - UNSPECIFIED HYDRONEPHROSIS (5) Chronic indwelling Pinzon catheter Code(s): Z92.89 - PERSONAL HISTORY OF OTHER MEDICAL TREATMENT (6) Decubitus ulcer Code(s): L89.90 - PRESSURE ULCER OF UNSPECIFIED SITE, UNSPECIFIED STAGE Qualifiers: Laterality: unspecified laterality Qualified Code(s): L89.40 - Pressure ulcer of contiguous site of back, buttock and hip, unspecified stage (7) Leukocytosis Code(s): D72.829 - ELEVATED WHITE BLOOD CELL COUNT, UNSPECIFIED (8) MDRO (multiple drug resistant organisms) resistance Code(s): Z16.35 - RESISTANCE TO MULTIPLE ANTIMICROBIAL DRUGS (9) Obstructive uropathy Code(s): N13.9 - OBSTRUCTIVE AND REFLUX UROPATHY, UNSPECIFIED (10) Paraplegia following spinal cord injury Code(s): G82.20 - PARAPLEGIA, UNSPECIFIED Assessment/Plan IV ABX PER ID NEED UROLOGY TO CHANGE PINZON TLC IV ACCESS SURGERY F/U NUTRTION TOLERATED PO WOUND CARE/VASC SX EVAL
[2018-08-19] MEDS: SODIUM CHLORIDE 0.45% 1,000 ML IV SCH (21:37)
[2018-08-19] MEDS ORDERED: MINERAL OIL 30 ML UNIT-DOSE CUP PO ONE (23:00)
[2018-08-20] MEDS: MEROPENEM 1 GM in DEXTROSE 5%-WATER 100 ML IVPB SCH ×3 (01:08→17:02)
[2018-08-20] MEDS ORDERED: MEROPENEM 1 GM VIAL (RESTRICTED TO ID) IVPB ONE ×2 (07:43→15:25)
[2018-08-20] MEDS ORDERED: DEXTROSE 5%-WATER 100 ML IVPB ONE ×2 (07:43→15:25)
--- NOTE | 2018-08-20 08:53 | PN ---
Progress Note (short form) - Note Progress Note: Patient seen in bed. Told by nurse that he is refusing wound care of his ankle and foot. Does not want another person, referring to me to get involved with his care. +wounds b/l feet, -cellulitis, -mal odor, radiology reports reviewed needs further follow up on both refusing care r/o om non compliant patient I am signing off of case as patient does not wish to have care provided to him by me. He has contacted Dr. Handy office and wants her to follow up on his wounds and future care. Please reconsult if patient changes his mind and allows for care. Nurse present when care was refused. Will no longer follow. Continue current orders until Dr. mercado takes over. Thank You
[2018-08-20] MEDS: COLLAGENASE CLOSTRIDIUM HIST. 30 GRAMS TUBE TP SCH (09:52)
[2018-08-20] MEDS: MULTIVITAMINS (DAILY MVI) TABLET (FP) PO SCH (09:52)
[2018-08-20] MEDS: DOCUSATE SODIUM 100 MG CAPSULE (FP) PO PRN (09:52)
[2018-08-20] MEDS: SODIUM CHLORIDE 0.45% 1,000 ML IV SCH ×2 (10:02→23:54)
[2018-08-20] MEDS: LINEZOLID 600 MG PREMIX BAG 600 MG/300 ML BAG IVPB SCH ×2 (11:03→23:54)
--- NOTE | 2018-08-20 14:22 | CONSULT ---
Consult Consult Specialty:: Plastic Surgery Reason for Consultation:: Multiple Grade IV decubitii - History of Present Illness Chief Complaint: Paraplegic for 31 years undegone several Reconsructive surgeries for multiple decubitii, wounds are recurrent. Now on Maintance therapy...wound care. Amitted for Recurrent problems with Bladder/catherization - History Source History Provided By: Patient - Past Medical History Pulmonary: Yes: COPD Gastrointestinal: Yes: Constipation (Neurogenic bowel with persistent obstipation and megasigmoid), GI Bleed, Other (Hirschsprung's disease, neurogenic bowel) Hepatobiliary: Yes: Cholelithiasis Renal/: Yes: Neurogenic Bladder (indwelling Pelaez), Renal Calculi (bilateral staghorn with h/o obstructions and other calculi), UTI, Other (JJ bilat stents, permanent Pelaez; partially duplicated left renal collecting system) Infectious Disease: Yes: MRSA, Other (ESBL, resistant organisms, multiple abx courses; recurrent L retroperitoneal -> flank abscess secondary to urinary overflow from kidney s/p multiple percutaneous interventions with intermittent hydronephrosis) Musculoskeletal: Yes: Paraplegia (T6 level), Other (multiple sacral and ischial decubiti) - Past Surgical History Past Surgical History: Yes: Stent (bilateral ureteral stents - multiple exchanges) - Alcohol/Substance Use Hx Alcohol Use: No History of Substance Use: reports: None (for at least a year) - Smoking History Smoking history: Former smoker Have you smoked in the past 12 months: No Aproximately how many cigarettes per day: 15 If you are a former smoker, when did you quit?: 03/2014 - Social History Usual Living Arrangement: With Parent ADL: Support Services (his mother lives in the same house also has home health aides) History of Recent Travel: No Home Medications - Allergies Allergies/Adverse Reactions: Allergies Allergy/AdvReac Type Severity Reaction Status Date / Time polymyxin B Allergy Mild Itching Verified 05/12/17 11:18 - Home Medications Home Medications: Ambulatory Orders Multivitamin [Multiple Vitamins] 1 tab PO DAILY 08/04/18 Levofloxacin [Levaquin] 500 mg PO 08/17/18 Family Disease History - Family Disease History Family Disease History: Diabetes: Mother, Heart Disease: Father Physical Exam Vital Signs: Vital Signs Temperature 98.9 F 08/20/18 13:26 Pulse Rate 81 08/20/18 13:26 Respiratory Rate 18 08/20/18 13:26 Blood Pressure 99/57 L 08/20/18 13:26 O2 Sat by Pulse Oximetry (%) 98 08/20/18 09:00 Labs: CBC, BMP 08/19/18 06:00 08/19/18 06:00 Assessment/Plan All decubitii evaluated including feet/ankles, lower Back.Ischial No odor, no erythema, bone exposed and palpable. Covered with fibrinous tissues , some undermining Several areas have Epithelized with bridging noted Selected Entries 08/20/18 08/20/18 00:46 13:26 Temperature 99.7 F H 98.9 F Blood Pressure 99/57 L Laboratory Tests 08/17/18 08/18/18 08/19/18 15:54 11:00 06:00 WBC 18.2 H 11.5 H Hgb 11.2 L 9.4 L Hct 34.8 L D 29.6 L D MCV 76.8 L 77.1 L MCH 24.7 L 24.5 L RDW 17.6 H 17.1 H Absolute Neuts (auto) 14.9 H 10.3 H . Plan : 1. Continue Low Pressure mattress 2.Continue Change of position 3. Continue Nutritional. Vitamin supplements 4. Wound care daily with diluted Betadine dressing plus NSS . Ratio 1:3 saline
--- NOTE | 2018-08-20 15:16 | PN ---
Progress Note, Physician Chief Complaint: Paraplegia B/L Hydronephrosis MDRO Leukocytosis History of Present Illness: Previous notes and events reviewed awake and alert NAD no complaints of chest pain or SOB - Current Medication List Current Medications: Active Medications Acetaminophen (Tylenol -) 650 mg PO Q6H PRN PRN Reason: FEVER Last Admin: 08/19/18 21:39 Dose: 650 mg Collagenase (Santyl -) 1 applic TP DAILY [facility]; Protocol Last Admin: 08/20/18 09:52 Dose: Not Given Docusate Sodium (Colace -) 100 mg PO BID PRN PRN Reason: CONSTIPATION Last Admin: 08/20/18 09:52 Dose: 100 mg Sodium Chloride (1/2 Normal Saline) 1,000 mls @ 42 mls/hr IV ASDIR GISEL Last Admin: 08/20/18 10:02 Dose: 42 mls/hr Meropenem 1 gm/ Dextrose 100 mls @ 200 mls/hr IVPB Q8H-IV [facility] Last Admin: 08/20/18 09:51 Dose: 200 mls/hr Linezolid (Zyvox 600 Mg Premix Bag (Restricted To Id) -) 600 mg in 300 mls @ 300 mls/hr IVPB Q12H [facility]; Protocol Last Admin: 08/20/18 11:03 Dose: 300 mls/hr Ibuprofen (Caldolor Injection -) 400 mg IVPB Q8H PRN PRN Reason: FEVER Multivitamins/Minerals/Vitamin C (Tab-A-Vit -) 1 tab PO DAILY [facility] Last Admin: 08/20/18 09:52 Dose: 1 tab Senna (Senna -) 2 tab PO HS PRN PRN Reason: CONSTIPATION - Objective Vital Signs: Vital Signs Temperature 98.9 F 08/20/18 13:26 Pulse Rate 81 08/20/18 13:26 Respiratory Rate 18 08/20/18 13:26 Blood Pressure 99/57 L 08/20/18 13:26 O2 Sat by Pulse Oximetry (%) 98 08/20/18 09:00 Constitutional: Yes: No Distress, Calm Eyes: Yes: Conjunctiva Clear HENT: Yes: Atraumatic Cardiovascular: Yes: Regular Rate and Rhythm Respiratory: Yes: Regular, CTA Bilaterally Gastrointestinal: Yes: Normal Bowel Sounds, Soft Genitourinary: Yes: Pelaez Present Musculoskeletal: Yes: Other (paraplegia) Extremities: Yes: WNL Edema: No Wound/Incision: Yes: Dressing Dry and Intact Neurological: Yes: Alert, Oriented Psychiatric: Yes: Alert, Oriented Labs: CBC, BMP 08/19/18 06:00 08/19/18 06:00 Microbiology 08/19/18 11:10 Blood - Peripheral Venous Blood Culture - Preliminary NO GROWTH OBTAINED AFTER 24 HOURS, INCUBATION TO CONTINUE FOR 4 DAYS. 08/19/18 11:15 Blood - Peripheral Venous Blood Culture - Preliminary NO GROWTH OBTAINED AFTER 24 HOURS, INCUBATION TO CONTINUE FOR 4 DAYS. 08/18/18 11:00 Blood - Peripheral Venous Blood Culture - Preliminary NO GROWTH OBTAINED AFTER 48 HOURS, INCUBATION TO CONTINUE FOR 3 DAYS. 08/18/18 10:55 Blood - Peripheral Venous Blood Culture - Preliminary NO GROWTH OBTAINED AFTER 48 HOURS, INCUBATION TO CONTINUE FOR 3 DAYS. 08/17/18 17:39 Urine - Urine - Catheterized Urine Culture - Final Contaminated: Please Repeat - ....Imaging Cat Scan: Report Reviewed Ultrasound: Report Reviewed Problem List - Problems (1) Systolic murmur Assessment/Plan: -LVEF is normal Code(s): R01.1 - CARDIAC MURMUR, UNSPECIFIED (2) Bilateral hydronephrosis Assessment/Plan: -Urology consult -Renal US shows large exophytic right renal cyst 8.2 x 7.5cm, right renal stones without gross evidence of hydronephrosis, multiple left renal stones with moderate to marked hydronephrosis Code(s): N13.30 - UNSPECIFIED HYDRONEPHROSIS (3) Chronic indwelling Pelaez catheter Assessment/Plan: -Urology on board -[facility] Code(s): Z92.89 - PERSONAL HISTORY OF OTHER MEDICAL TREATMENT (4) Leukocytosis Assessment/Plan: -WBC 11.5, monitor for downtrend -ID on board -Linezolid and Meropenem Code(s): D72.829 - ELEVATED WHITE BLOOD CELL COUNT, UNSPECIFIED (5) MDRO (multiple drug resistant organisms) resistance Assessment/Plan: -contact precaution -ID on board Code(s): Z16.35 - RESISTANCE TO MULTIPLE ANTIMICROBIAL DRUGS (6) UTI (urinary tract infection) Assessment/Plan: -WBC 11.5, monitor for downtrend -ID on board -Linezolid and Meropenem Code(s): N39.0 - URINARY TRACT INFECTION, SITE NOT SPECIFIED Qualifiers: Urinary tract infection type: site unspecified Hematuria presence: without hematuria Qualified Code(s): N39.0 - Urinary tract infection, site not specified Assessment/Plan see problem list dvt ppx
--- NOTE | 2018-08-20 18:25 | CONSULT ---
Consult - text type - Consultation Consultation Note: Renal consult for Renal cyst and Hydronephrosis This is a 53 year old gentleman with hx of paraplegia from T6, Nephrolithiasis, Neurogenic bladder, COPD who presented with dark urine and admitted for suspected sepsis from cystitis/pylonephritis. Pt is without any acute complaints. No flank pain. Has a indwelling left urethral stent. Was noted to have right kidney renal cyst. No fever, chills, N/V/D, SIMONS, confusion or lethargy. Making urine via hull. PMhx: as above Allergies: NKDA Family hx: NC Social Hx: No T/A/D ROS: as per HPI, all other pertinent ros negative Home Medications Medication Instructions Recorded Multivitamin [Multiple Vitamins] 1 tab PO DAILY 08/04/18 Levofloxacin [Levaquin] 500 mg PO 08/17/18 Vital Signs Temperature 98.7 F 08/20/18 17:00 Pulse Rate 86 08/20/18 17:00 Respiratory Rate 18 08/20/18 17:00 Blood Pressure 95/60 08/20/18 17:00 O2 Sat by Pulse Oximetry (%) 98 08/20/18 09:00 Intake & Output 08/17/18 08/18/18 08/19/18 08/20/18 23:59 23:59 23:59 23:59 Intake Total 1136 1806 1462 Output Total 350 1050 900 650 Balance -350 86 906 812 Weight 65.374 kg 65.317 kg NAD awake and alert neck supple, no JVD RRR CTA soft NT/ND no LE edema hull in place CBC, BMP 08/19/18 06:00 08/19/18 06:00 Current Medications Acetaminophen (Tylenol -) 650 mg PO Q6H PRN PRN Reason: FEVER Last Admin: 08/19/18 21:39 Dose: 650 mg Collagenase (Santyl -) 1 applic TP DAILY [facility]; Protocol Last Admin: 08/20/18 09:52 Dose: Not Given Docusate Sodium (Colace -) 100 mg PO BID PRN PRN Reason: CONSTIPATION Last Admin: 08/20/18 09:52 Dose: 100 mg Sodium Chloride (1/2 Normal Saline) 1,000 mls @ 42 mls/hr IV ASDIR GISEL Last Admin: 08/20/18 10:02 Dose: 42 mls/hr Meropenem 1 gm/ Dextrose 100 mls @ 200 mls/hr IVPB Q8H-IV [facility] Last Admin: 08/20/18 17:02 Dose: 200 mls/hr Linezolid (Zyvox 600 Mg Premix Bag (Restricted To Id) -) 600 mg in 300 mls @ 300 mls/hr IVPB Q12H [facility]; Protocol Last Admin: 08/20/18 11:03 Dose: 300 mls/hr Ibuprofen (Caldolor Injection -) 400 mg IVPB Q8H PRN PRN Reason: FEVER Multivitamins/Minerals/Vitamin C (Tab-A-Vit -) 1 tab PO DAILY [facility] Last Admin: 08/20/18 09:52 Dose: 1 tab Senna (Senna -) 2 tab PO HS PRN PRN Reason: CONSTIPATION 53 year old gentleman with hx of paraplegia from T6, Nephrolithiasis, Neurogenic bladder, COPD who presented with dark urine and admitted for suspected sepsis from cystitis/pylonephritis. #Right Kidney simple renal cyst #Left side hydronephrosis, left urethral stent #Cystitis/Sepsis #Paraplegia Renal cyst is simple in appearance, no further diagnostic work up needed at this time continue empiric antibiotics as per ID Urology consult for urethral stone and stent management continue IVF as per primary Renal function is preserved will sign off case as renal function stable and no overt electrolyte abnormalities present Thank you for allowing us to take part in the care of this patient Man Neff DO
[2018-08-20] MEDS ORDERED: PT OWN MED DRAWER 7, Y5N ONE (20:34)
[2018-08-21] MEDS ORDERED: DEXTROSE 5%-WATER 100 ML IVPB ONE ×3 (03:09→17:34)
[2018-08-21] MEDS ORDERED: MEROPENEM 1 GM VIAL (RESTRICTED TO ID) IVPB ONE ×3 (03:09→17:33)
[2018-08-21] MEDS: MEROPENEM 1 GM in DEXTROSE 5%-WATER 100 ML IVPB SCH ×3 (03:15→17:37)
[2018-08-21 07:26] LABS: ALBUMIN 1.8 g/dl (3.4-5.0); BILIRUBIN,TOTAL 0.2 mg/dL (0.2-1); BLOOD UREA NITROGEN 11.6 mg/dL (7-18); CALCIUM 7.4 mg/dL (8.5-10.1); CREATININE 0.7 mg/dL (0.55-1.3); POTASSIUM 3.6 mmol/L (3.5-5.1); TOT PROT 5.9 g/dl (6.4-8.2)
[2018-08-21 07:54] LABS: HEMATOCRIT 27.6 % (35.4-49); HEMOGLOBIN 8.9 GM/dL (11.7-16.9); MCHC 32.4 g/dl (32.0-35.9); MEAN PLT VOLUME 7.4 fl (7.5-11.1); RBC 3.58 M/mm3 (4.00-5.60); WHITE BLOOD COUNT 7.9 K/mm3 (4.0-10.0)
--- NOTE | 2018-08-21 09:36 | PN ---
Progress Note, Physician Chief Complaint: UTI MDRO History of Present Illness: NAD Seen by Urology - Current Medication List Current Medications: Active Medications Acetaminophen (Tylenol -) 650 mg PO Q6H PRN PRN Reason: FEVER Last Admin: 08/19/18 21:39 Dose: 650 mg Collagenase (Santyl -) 1 applic TP DAILY [facility]; Protocol Last Admin: 08/20/18 09:52 Dose: Not Given Docusate Sodium (Colace -) 100 mg PO BID PRN PRN Reason: CONSTIPATION Last Admin: 08/20/18 09:52 Dose: 100 mg Sodium Chloride (1/2 Normal Saline) 1,000 mls @ 42 mls/hr IV ASDIR GISLE Last Admin: 08/20/18 23:54 Dose: Not Given Meropenem 1 gm/ Dextrose 100 mls @ 200 mls/hr IVPB Q8H-IV [facility] Last Admin: 08/21/18 03:15 Dose: 200 mls/hr Linezolid (Zyvox 600 Mg Premix Bag (Restricted To Id) -) 600 mg in 300 mls @ 300 mls/hr IVPB Q12H [facility]; Protocol Last Admin: 08/20/18 23:54 Dose: 300 mls/hr Ibuprofen (Caldolor Injection -) 400 mg IVPB Q8H PRN PRN Reason: FEVER Multivitamins/Minerals/Vitamin C (Tab-A-Vit -) 1 tab PO DAILY [facility] Last Admin: 08/20/18 09:52 Dose: 1 tab Senna (Senna -) 2 tab PO HS PRN PRN Reason: CONSTIPATION - Objective Vital Signs: Vital Signs Temperature 98 F 08/21/18 06:10 Pulse Rate 79 08/21/18 06:10 Respiratory Rate 18 08/21/18 06:10 Blood Pressure 103/65 08/21/18 06:10 O2 Sat by Pulse Oximetry (%) 98 08/20/18 20:19 Constitutional: Yes: Well Nourished, No Distress, Calm Cardiovascular: Yes: Regular Rate and Rhythm Respiratory: Yes: Regular Gastrointestinal: Yes: Hypoactive Bowel Sounds, Other (rigid 2/2 to chronic fecal retention) Genitourinary: Yes: Pelaez Present Musculoskeletal: Yes: WNL Extremities: Yes: WNL (Paraplegia) Edema: No Peripheral Pulses WNL: Yes Neurological: Yes: Alert, Oriented Psychiatric: Yes: Alert, Oriented Labs: CBC, BMP 08/21/18 06:00 Assessment/Plan (1) Systolic murmur Assessment/Plan: -LVEF is normal Code(s): R01.1 - CARDIAC MURMUR, UNSPECIFIED (2) Bilateral hydronephrosis Assessment/Plan: -Urology consult -Renal US shows large exophytic right renal cyst 8.2 x 7.5cm, right renal stones without gross evidence of hydronephrosis, multiple left renal stones with moderate to marked hydronephrosis -Plan for cystoscopy on Thursday Code(s): N13.30 - UNSPECIFIED HYDRONEPHROSIS (3) Chronic indwelling Pelaez catheter Assessment/Plan: -Urology on board -[facility] Code(s): Z92.89 - PERSONAL HISTORY OF OTHER MEDICAL TREATMENT (4) Leukocytosis Assessment/Plan: -ID on board -Linezolid and Meropenem Code(s): D72.829 - ELEVATED WHITE BLOOD CELL COUNT, UNSPECIFIED (5) MDRO (multiple drug resistant organisms) resistance Assessment/Plan: -contact precaution -ID on board Code(s): Z16.35 - RESISTANCE TO MULTIPLE ANTIMICROBIAL DRUGS (6) UTI (urinary tract infection) Assessment/Plan: -ID on board -Linezolid and Meropenem Code(s): N39.0 - URINARY TRACT INFECTION, SITE NOT SPECIFIED Qualifiers: Urinary tract infection type: site unspecified Hematuria presence: without hematuria Qualified Code(s): N39.0 - Urinary tract infection, site not specified
[2018-08-21] MEDS: LINEZOLID 600 MG PREMIX BAG 600 MG/300 ML BAG IVPB SCH ×2 (10:01→23:27)
[2018-08-21] MEDS: MULTIVITAMINS (DAILY MVI) TABLET (FP) PO SCH (10:01)
[2018-08-21] MEDS: COLLAGENASE CLOSTRIDIUM HIST. 30 GRAMS TUBE TP SCH (12:14)
[2018-08-21 14:09] LABS: PLATELET COUNT 383 K/MM3 (134-434)
[2018-08-21] MEDS: SODIUM CHLORIDE 0.45% 1,000 ML IV SCH ×2 (17:43→23:28)
--- NOTE | 2018-08-21 20:00 | PN ---
Progress Note, Physician History of Present Illness: AWAKE, ALERT FEELING BETTER NO COMPLAINTS OFFERRED AFEBRILE +BC GPCCL - Current Medication List Current Medications: Active Medications Acetaminophen (Tylenol -) 650 mg PO Q6H PRN PRN Reason: FEVER Last Admin: 08/19/18 21:39 Dose: 650 mg Collagenase (Santyl -) 1 applic TP DAILY [facility]; Protocol Last Admin: 08/21/18 12:14 Dose: Not Given Docusate Sodium (Colace -) 100 mg PO BID PRN PRN Reason: CONSTIPATION Last Admin: 08/20/18 09:52 Dose: 100 mg Sodium Chloride (1/2 Normal Saline) 1,000 mls @ 42 mls/hr IV ASDIR GISEL Last Admin: 08/21/18 17:43 Dose: 42 mls/hr Meropenem 1 gm/ Dextrose 100 mls @ 200 mls/hr IVPB Q8H-IV [facility] Last Admin: 08/21/18 17:37 Dose: 200 mls/hr Linezolid (Zyvox 600 Mg Premix Bag (Restricted To Id) -) 600 mg in 300 mls @ 300 mls/hr IVPB Q12H [facility]; Protocol Last Admin: 08/21/18 10:01 Dose: 300 mls/hr Ibuprofen (Caldolor Injection -) 400 mg IVPB Q8H PRN PRN Reason: FEVER Multivitamins/Minerals/Vitamin C (Tab-A-Vit -) 1 tab PO DAILY [facility] Last Admin: 08/21/18 10:01 Dose: 1 tab Senna (Senna -) 2 tab PO HS PRN PRN Reason: CONSTIPATION - Objective Vital Signs: Vital Signs Temperature 99.4 F 08/21/18 18:34 Pulse Rate 82 08/21/18 18:34 Respiratory Rate 18 08/21/18 18:34 Blood Pressure 113/65 08/21/18 18:34 O2 Sat by Pulse Oximetry (%) 98 08/21/18 09:00 Cardiovascular: Yes: Regular Rate and Rhythm, S1, S2 Respiratory: Yes: CTA Bilaterally Gastrointestinal: Yes: Normal Bowel Sounds, Soft, Other (SL DISTENDED, SOFT) Extremities: Yes: Other (+ BILATERAL FOOT DROP) Labs: CBC, BMP 08/21/18 06:00 08/21/18 06:00 Assessment/Plan UTI R/O SEPSIS SECONDARY TO UTI NEUROGENIC BLADDER/ INDWELLING PINZON +BC ? SIGNIFICANCE AWAIT BC RESULT CONTINYE MEROPENEM/ ZYVOX VANCOMYCIN X 1
[2018-08-21] MEDS ORDERED: VANCOMYCIN 1 GRAM (PRE-DOCKED) 1,000 MG/250 ML BAG IVPB ONE (20:02)
[2018-08-21] MEDS ORDERED: PT OWN MED DRAWER 7, Y5N ONE (22:34)
[2018-08-22] MEDS ORDERED: MEROPENEM 1 GM VIAL (RESTRICTED TO ID) IVPB ONE ×3 (00:23→17:12)
[2018-08-22] MEDS ORDERED: DEXTROSE 5%-WATER 100 ML IVPB ONE ×2 (00:24→09:22)
[2018-08-22] MEDS: MEROPENEM 1 GM in DEXTROSE 5%-WATER 100 ML IVPB SCH ×3 (01:25→17:31)
--- NOTE | 2018-08-22 09:00 | PN ---
Progress Note, Physician Chief Complaint: UTI MDRO History of Present Illness: NAD Seen by Urology - Current Medication List Current Medications: Active Medications Acetaminophen (Tylenol -) 650 mg PO Q6H PRN PRN Reason: FEVER Last Admin: 08/19/18 21:39 Dose: 650 mg Collagenase (Santyl -) 1 applic TP DAILY [facility]; Protocol Last Admin: 08/21/18 12:14 Dose: Not Given Docusate Sodium (Colace -) 100 mg PO BID PRN PRN Reason: CONSTIPATION Last Admin: 08/20/18 09:52 Dose: 100 mg Sodium Chloride (1/2 Normal Saline) 1,000 mls @ 42 mls/hr IV ASDIR GISEL Last Admin: 08/21/18 23:28 Dose: 42 mls/hr Meropenem 1 gm/ Dextrose 100 mls @ 200 mls/hr IVPB Q8H-IV [facility] Last Admin: 08/22/18 01:25 Dose: 200 mls/hr Linezolid (Zyvox 600 Mg Premix Bag (Restricted To Id) -) 600 mg in 300 mls @ 300 mls/hr IVPB Q12H [facility]; Protocol Last Admin: 08/21/18 23:27 Dose: 300 mls/hr Ibuprofen (Caldolor Injection -) 400 mg IVPB Q8H PRN PRN Reason: FEVER Multivitamins/Minerals/Vitamin C (Tab-A-Vit -) 1 tab PO DAILY [facility] Last Admin: 08/21/18 10:01 Dose: 1 tab Senna (Senna -) 2 tab PO HS PRN PRN Reason: CONSTIPATION - Objective Vital Signs: Vital Signs Temperature 99 F 08/22/18 06:00 Pulse Rate 83 08/22/18 06:00 Respiratory Rate 18 08/22/18 06:00 Blood Pressure 101/66 08/22/18 06:00 O2 Sat by Pulse Oximetry (%) 96 08/21/18 21:00 Constitutional: Yes: Well Nourished, No Distress, Calm Cardiovascular: Yes: Regular Rate and Rhythm Respiratory: Yes: Regular Gastrointestinal: Yes: Hypoactive Bowel Sounds, Other (rigid, 2/2 to chronic fecal impaction) Genitourinary: Yes: Pelaez Present Musculoskeletal: Yes: Other (paraplegia) Extremities: Yes: WNL Edema: No Peripheral Pulses WNL: Yes Neurological: Yes: Alert, Oriented Psychiatric: Yes: Alert, Oriented Labs: CBC, BMP 08/21/18 06:00 08/21/18 06:00 Assessment/Plan (1) Systolic murmur Assessment/Plan: -LVEF is normal Code(s): R01.1 - CARDIAC MURMUR, UNSPECIFIED (2) Bilateral hydronephrosis Assessment/Plan: -Urology consult -Renal US shows large exophytic right renal cyst 8.2 x 7.5cm, right renal stones without gross evidence of hydronephrosis, multiple left renal stones with moderate to marked hydronephrosis -Plan for cystoscopy on Thursday -NPO past midnight Code(s): N13.30 - UNSPECIFIED HYDRONEPHROSIS (3) Chronic indwelling Pelaez catheter Assessment/Plan: -Urology on board - care Code(s): Z92.89 - PERSONAL HISTORY OF OTHER MEDICAL TREATMENT (4) Leukocytosis Assessment/Plan: -ID on board -Linezolid and Meropenem Code(s): D72.829 - ELEVATED WHITE BLOOD CELL COUNT, UNSPECIFIED (5) MDRO (multiple drug resistant organisms) resistance Assessment/Plan: -contact precaution -ID on board Code(s): Z16.35 - RESISTANCE TO MULTIPLE ANTIMICROBIAL DRUGS (6) UTI (urinary tract infection) Assessment/Plan: -ID on board -Linezolid and Meropenem Code(s): N39.0 - URINARY TRACT INFECTION, SITE NOT SPECIFIED Qualifiers: Urinary tract infection type: site unspecified Hematuria presence: without hematuria Qualified Code(s): N39.0 - Urinary tract infection, site not specified
[2018-08-22] MEDS ORDERED: PT OWN MED DRAWER 7, Y5N ONE (09:23)
[2018-08-22] MEDS: COLLAGENASE CLOSTRIDIUM HIST. 30 GRAMS TUBE TP SCH ×2 (11:05→11:29)
[2018-08-22] MEDS: MULTIVITAMINS (DAILY MVI) TABLET (FP) PO SCH (11:06)
--- NOTE | 2018-08-22 11:16 | CONS ---
DATE OF CONSULTATION: DATE OF DICTATION: 08/22/2018 HISTORY OF PRESENT ILLNESS: The patient is a 53-year-old male well known to my practice, history of traumatic paraplegia and neurogenic bladder. Patient refuses a suprapubic tube and has been on Pelaez catheter drainage for the past 12 years. He also has a history of bilateral nephrolithiasis. He has undergone one treatment of percutaneous nephrolithotripsy at [facility] and presently refuses to go back for a second treatment. Patient does have a left Double J stent in his kidney due to multiple stones in the left kidney. This stent has been there for greater than 6 months. A recent CAT scan revealed severe left hydronephrosis with bilateral and renal and ureteral stones. The patient is admitted again with UTIs and multiple admissions for the same. We will recommend a cystoscopy, removal of left Double J stent, left retrograde pyelogram, left ureteroscopy with possible left laser lithotripsy and reinsertion of of a left Double J stent. This will be done in a.m. if patient is medically okay. Alison [id number]
[2018-08-22] MEDS: VANCOMYCIN 1 GRAM (PRE-DOCKED) 1,000 MG/250 ML BAG IVPB SCH ×2 (12:28→22:40)
[2018-08-22] MEDS ORDERED: DEXTROSE 5%-WATER 200 ML IVPB ONE (17:12)
[2018-08-22] MEDS: SODIUM CHLORIDE 0.45% 1,000 ML IV SCH (23:04)
[2018-08-23] MEDS ORDERED: MEROPENEM 1 GM VIAL (RESTRICTED TO ID) IVPB ONE ×3 (00:03→16:35)
[2018-08-23] MEDS ORDERED: DEXTROSE 5%-WATER 100 ML IVPB ONE ×3 (00:04→16:36)
[2018-08-23] MEDS: MEROPENEM 1 GM in DEXTROSE 5%-WATER 100 ML IVPB SCH ×3 (01:14→17:17)
[2018-08-23] MEDS: COLLAGENASE CLOSTRIDIUM HIST. 30 GRAMS TUBE TP SCH (09:27)
[2018-08-23] MEDS: MULTIVITAMINS (DAILY MVI) TABLET (FP) PO SCH (09:28)
[2018-08-23] MEDS: VANCOMYCIN 1 GRAM (PRE-DOCKED) 1,000 MG/250 ML BAG IVPB SCH ×2 (09:28→21:50)
--- NOTE | 2018-08-23 12:04 | PN ---
Progress Note, Physician Chief Complaint: Paraplegia B/L Hydronephrosis MDRO Leukocytosis History of Present Illness: Previous notes and events reviewed awake and alert NAD no complaints of chest pain or SOB patient is scheduled for cystoscopy today - Current Medication List Current Medications: Active Medications Acetaminophen (Tylenol -) 650 mg PO Q6H PRN PRN Reason: FEVER Last Admin: 08/19/18 21:39 Dose: 650 mg Collagenase (Santyl -) [address] [facility]; Protocol Last Admin: 08/23/18 09:27 Dose: Not Given Docusate Sodium (Colace -) 100 mg PO BID PRN PRN Reason: CONSTIPATION Last Admin: 08/20/18 09:52 Dose: 100 mg Sodium Chloride (1/2 Normal Saline) 1,000 mls @ 42 mls/hr IV ASDIR GISEL Last Admin: 08/22/18 23:04 Dose: 42 mls/hr Meropenem 1 gm/ Dextrose 100 mls @ 200 mls/hr IVPB Q8H-IV [facility] Last Admin: 08/23/18 09:27 Dose: 200 mls/hr Vancomycin HCl (Vancomycin (Pre-Docked)) 1,000 mg in 250 mls @ 166.667 mls/hr IVPB BID [facility]; Protocol Last Admin: 08/23/18 09:28 Dose: 166.667 mls/hr Ibuprofen (Caldolor Injection -) 400 mg IVPB Q8H PRN PRN Reason: FEVER Multivitamins/Minerals/Vitamin C (Tab-A-Vit -) 1 tab PO DAILY [facility] Last Admin: 08/23/18 09:28 Dose: Not Given Senna (Senna -) 2 tab PO HS PRN PRN Reason: CONSTIPATION - Objective Vital Signs: Vital Signs Temperature 98.5 F 08/23/18 10:00 Pulse Rate 84 08/23/18 10:00 Respiratory Rate 18 08/23/18 10:00 Blood Pressure 112/66 08/23/18 10:00 O2 Sat by Pulse Oximetry (%) 96 08/21/18 21:00 Constitutional: Yes: No Distress, Calm Eyes: Yes: Conjunctiva Clear HENT: Yes: Atraumatic Cardiovascular: Yes: Regular Rate and Rhythm Respiratory: Yes: Regular, CTA Bilaterally Gastrointestinal: Yes: Normal Bowel Sounds, Soft Genitourinary: Yes: Pelaez Present Musculoskeletal: Yes: Muscle Weakness Extremities: Yes: WNL Edema: No Wound/Incision: Yes: Dressing Dry and Intact Neurological: Yes: Alert, Oriented Psychiatric: Yes: Alert, Oriented Labs: CBC, BMP 08/21/18 06:00 08/21/18 06:00 Microbiology 08/19/18 11:10 Blood - Peripheral Venous Blood Culture - Preliminary NO GROWTH OBTAINED AFTER 96 HOURS, INCUBATION TO CONTINUE FOR 1 DAYS. 08/18/18 11:00 Blood - Peripheral Venous Blood Culture - Final NO GROWTH AFTER 5 DAYS INCUBATION 08/18/18 10:55 Blood - Peripheral Venous Blood Culture - Final NO GROWTH AFTER 5 DAYS INCUBATION 08/20/18 16:10 Urine - Urine Pelaez Urine Culture - Final Contaminated: Please Repeat 08/19/18 11:15 Blood - Peripheral Venous Blood Culture - Final S Aureus 08/17/18 17:39 Urine - Urine - Catheterized Urine Culture - Final Contaminated: Please Repeat Problem List - Problems (1) Systolic murmur Assessment/Plan: -LVEF is normal Code(s): R01.1 - CARDIAC MURMUR, UNSPECIFIED (2) Bilateral hydronephrosis Assessment/Plan: -Urology consult -Renal US shows large exophytic right renal cyst 8.2 x 7.5cm, right renal stones without gross evidence of hydronephrosis, multiple left renal stones with moderate to marked hydronephrosis -patient is scheduled for cystoscopy today Code(s): N13.30 - UNSPECIFIED HYDRONEPHROSIS (3) Chronic indwelling Pelaez catheter Assessment/Plan: -Urology on board - care Code(s): Z92.89 - PERSONAL HISTORY OF OTHER MEDICAL TREATMENT (4) Leukocytosis Assessment/Plan: -WBC 7.9 -ID on board -Vancomycin and Meropenem -repeat BC pending Code(s): D72.829 - ELEVATED WHITE BLOOD CELL COUNT, UNSPECIFIED (5) MDRO (multiple drug resistant organisms) resistance Assessment/Plan: -contact precaution -ID on board Code(s): Z16.35 - RESISTANCE TO MULTIPLE ANTIMICROBIAL DRUGS (6) UTI (urinary tract infection) Assessment/Plan: -WBC 7.9 -ID on board -Vancomycin and Meropenem Code(s): N39.0 - URINARY TRACT INFECTION, SITE NOT SPECIFIED Qualifiers: Urinary tract infection type: site unspecified Hematuria presence: without hematuria Qualified Code(s): N39.0 - Urinary tract infection, site not specified Assessment/Plan see problem list dvt ppx
[2018-08-23] MEDS ORDERED: MIDAZOLAM HCL 2 MG/2 ML SINGLE DOSE VIAL ONE ×2 (14:26)
[2018-08-23] MEDS ORDERED: PROPOFOL 20 ML ONE (14:36)
--- NOTE | 2018-08-23 15:15 | OP ---
Operative Note - Note: Operative Date: 08/23/18 Pre-Operative Diagnosis: lt. hydronephrosis. lt. ureteral stones, lt. jj stent Operation: cysto, d/c lt.jj stent ,lt. retrograde pyelogram w/ left stone basketing and replacement of left jj stent. Findings: left hydronephrosis, left obstructed jj stent, left renal stones and left ureteral stones. Post-Operative Diagnosis: Same as Pre-op Surgeon: Moisés Oro Anesthesia: General Specimens Removed: stones and left jj stent Drains & Tubes with Location: 26 cm 7 fr left jj stent Blood Volume Replaced (mls): 0 Fluid Volume Replaced (mls): 0 Operative Report Dictated: Yes
[2018-08-23] MEDS ORDERED: LACTATED RINGERS SOLUTION 1,000 ML IV SCH (15:30)
--- NOTE | 2018-08-23 18:35 | PN ---
Progress Note, Physician History of Present Illness: S/P CYSTO/ STENT EXCHANGE NO C/O PAIN AWAKE, ALERT AFEBRILE REPEAT BC NO GROWTH - Current Medication List Current Medications: Active Medications Acetaminophen (Tylenol -) 650 mg PO Q6H PRN PRN Reason: FEVER Last Admin: 08/19/18 21:39 Dose: 650 mg Collagenase (Santyl -) 1 applic TP DAILY [facility]; Protocol Last Admin: 08/23/18 09:27 Dose: Not Given Docusate Sodium (Colace -) 100 mg PO BID PRN PRN Reason: CONSTIPATION Last Admin: 08/20/18 09:52 Dose: 100 mg Fentanyl (Sublimaze Injection -) 50 mcg IVPUSH Q5M PRN PRN Reason: PAIN-PACU ORDER X 4 DOSES ONLY Stop: 08/24/18 02:00 Sodium Chloride (1/2 Normal Saline) 1,000 mls @ 42 mls/hr IV ASDIR GISEL Last Admin: 08/22/18 23:04 Dose: 42 mls/hr Vancomycin HCl (Vancomycin (Pre-Docked)) 1,000 mg in 250 mls @ 166.667 mls/hr IVPB BID [facility]; Protocol Last Admin: 08/23/18 09:28 Dose: 166.667 mls/hr Lactated Ringer's (Lactated Ringers Solution) 1,000 mls @ 125 mls/hr IV ASDIR GISEL Ibuprofen (Caldolor Injection -) 400 mg IVPB Q8H PRN PRN Reason: FEVER Multivitamins/Minerals/Vitamin C (Tab-A-Vit -) 1 tab PO DAILY [facility] Last Admin: 08/23/18 09:28 Dose: Not Given Senna (Senna -) 2 tab PO HS PRN PRN Reason: CONSTIPATION - Objective Vital Signs: Vital Signs Temperature 97.8 F 08/23/18 16:00 Pulse Rate 80 08/23/18 16:00 Respiratory Rate 18 08/23/18 16:00 Blood Pressure 118/72 08/23/18 16:00 O2 Sat by Pulse Oximetry (%) 97 08/23/18 16:00 Constitutional: Yes: No Distress Cardiovascular: Yes: Regular Rate and Rhythm, S1, S2 Respiratory: Yes: CTA Bilaterally Gastrointestinal: Yes: Normal Bowel Sounds, Soft, Other (DISTENDED) Extremities: Yes: Other (+ FOOT DROP) Labs: CBC, BMP 08/21/18 06:00 08/21/18 06:00 Assessment/Plan UTI R/O SEPSIS SECONDARY TO UTI NEUROGENIC BLADDER/ INDWELLING PINZON +BC MRSA REPEAT BC PENDING CONTINUE VANCOMYCIN
[2018-08-23] MEDS: SODIUM CHLORIDE 0.45% 1,000 ML IV SCH (21:51)
[2018-08-24 08:46] LABS: ALBUMIN 1.9 g/dl (3.4-5.0); BILIRUBIN,TOTAL 0.6 mg/dL (0.2-1); BLOOD UREA NITROGEN 16.8 mg/dL (7-18); CALCIUM 8.6 mg/dL (8.5-10.1); CREATININE 0.8 mg/dL (0.55-1.3); POTASSIUM 4.6 mmol/L (3.5-5.1); TOT PROT 6.8 g/dl (6.4-8.2)
[2018-08-24 08:59] LABS: HEMOGLOBIN 9.7 GM/dL (11.7-16.9); MCH 24.8 pg (25.7-33.7); MCHC 32.4 g/dl (32.0-35.9); MEAN CELL VOLUME 76.4 fl (80-96); MEAN PLT VOLUME 7.2 fl (7.5-11.1); PLATELET COUNT 272 K/MM3 (134-434); RBC 3.93 M/mm3 (4.00-5.60); RDW 17.2 % (11.9-15.9); WHITE BLOOD COUNT 13.9 K/mm3 (4.0-10.0)
[2018-08-24] MEDS: DOCUSATE SODIUM 100 MG CAPSULE (FP) PO PRN (09:53)
[2018-08-24] MEDS: MULTIVITAMINS (DAILY MVI) TABLET (FP) PO SCH (09:53)
[2018-08-24] MEDS: VANCOMYCIN 1 GRAM (PRE-DOCKED) 1,000 MG/250 ML BAG IVPB SCH ×2 (09:54→22:01)
[2018-08-24] MEDS: COLLAGENASE CLOSTRIDIUM HIST. 30 GRAMS TUBE TP SCH (09:54)
--- NOTE | 2018-08-24 10:34 | PN ---
Progress Note, Physician Chief Complaint: Paraplegia B/L Hydronephrosis MDRO Leukocytosis History of Present Illness: Previous notes and events reviewed awake and alert NAD no complaints of chest pain or SOB s/p cystoscopy and stent replacement c/o burning feeling to chest c/o pain to neck and shoulders - Current Medication List Current Medications: Active Medications Acetaminophen (Tylenol -) 650 mg PO Q6H PRN PRN Reason: FEVER Last Admin: 08/19/18 21:39 Dose: 650 mg Acetaminophen (Tylenol -) 650 mg PO Q6H PRN PRN Reason: PAIN LEVEL 1-5 Collagenase (Santyl -) 1 applic TP DAILY [facility]; Protocol Last Admin: 08/24/18 09:54 Dose: Not Given Docusate Sodium (Colace -) 100 mg PO BID PRN PRN Reason: CONSTIPATION Last Admin: 08/24/18 09:53 Dose: 100 mg Vancomycin HCl (Vancomycin (Pre-Docked)) 1,000 mg in 250 mls @ 166.667 mls/hr IVPB BID [facility]; Protocol Last Admin: 08/24/18 09:54 Dose: 166.667 mls/hr Ibuprofen (Caldolor Injection -) 400 mg IVPB Q8H PRN PRN Reason: FEVER Multivitamins/Minerals/Vitamin C (Tab-A-Vit -) 1 tab PO DAILY [facility] Last Admin: 08/24/18 09:53 Dose: 1 tab Ranitidine HCl (Zantac -) 150 mg PO DAILY [facility] Senna (Senna -) 2 tab PO HS PRN PRN Reason: CONSTIPATION - Objective Vital Signs: Vital Signs Temperature 98.4 F 08/24/18 10:00 Pulse Rate 90 08/24/18 10:00 Respiratory Rate 18 08/24/18 10:00 Blood Pressure 102/65 08/24/18 10:00 O2 Sat by Pulse Oximetry (%) 97 08/23/18 16:00 Constitutional: Yes: No Distress, Calm Eyes: Yes: Conjunctiva Clear HENT: Yes: Atraumatic Cardiovascular: Yes: Regular Rate and Rhythm Respiratory: Yes: Regular, CTA Bilaterally Gastrointestinal: Yes: Normal Bowel Sounds, Soft, Distention Genitourinary: Yes: Pelaez Present (dark, cloudy urine) Musculoskeletal: Yes: Muscle Weakness, Other (neck pain) Extremities: Yes: WNL Edema: No Wound/Incision: Yes: Dressing Dry and Intact Neurological: Yes: Alert, Oriented Psychiatric: Yes: Alert, Oriented Labs: CBC, BMP 08/24/18 07:53 08/24/18 07:53 Problem List - Problems (1) Systolic murmur Assessment/Plan: -LVEF is normal Code(s): R01.1 - CARDIAC MURMUR, UNSPECIFIED (2) Bilateral hydronephrosis Assessment/Plan: -Urology consult -Renal US shows large exophytic right renal cyst 8.2 x 7.5cm, right renal stones without gross evidence of hydronephrosis, multiple left renal stones with moderate to marked hydronephrosis -POD #1 cystoscopy and stent replacement Code(s): N13.30 - UNSPECIFIED HYDRONEPHROSIS (3) Chronic indwelling Pelaez catheter Assessment/Plan: -Urology on board -FC care Code(s): Z92.89 - PERSONAL HISTORY OF OTHER MEDICAL TREATMENT (4) Leukocytosis Assessment/Plan: -WBC 13.9 -ID on board -Vancomycin -repeat BC negative Code(s): D72.829 - ELEVATED WHITE BLOOD CELL COUNT, UNSPECIFIED (5) MDRO (multiple drug resistant organisms) resistance Assessment/Plan: -contact precaution -ID on board Code(s): Z16.35 - RESISTANCE TO MULTIPLE ANTIMICROBIAL DRUGS (6) UTI (urinary tract infection) Assessment/Plan: -WBC 13.9 -ID on board -Vancomycin -tylenol prn for temp >100F Code(s): N39.0 - URINARY TRACT INFECTION, SITE NOT SPECIFIED Qualifiers: Urinary tract infection type: site unspecified Hematuria presence: without hematuria Qualified Code(s): N39.0 - Urinary tract infection, site not specified Assessment/Plan see problem list dvt ppx
[2018-08-24] MEDS: ACETAMINOPHEN 325 MG TABLET (FP) PO PRN (13:50)
--- NOTE | 2018-08-24 15:25 | PN ---
Progress Note, Physician History of Present Illness: NO C/O PAIN AWAKE, ALERT LOW GRADE FEVER, INCREASED WBC TODAY REPEAT BC NO GROWTH - Current Medication List Current Medications: Active Medications Acetaminophen (Tylenol -) 650 mg PO Q6H PRN PRN Reason: FEVER OR PAIN LEVEL 1-5 Last Admin: 08/24/18 13:50 Dose: 650 mg Collagenase (Santyl -) 1 applic TP DAILY [facility]; Protocol Last Admin: 08/24/18 09:54 Dose: Not Given Cyclobenzaprine HCl (Cyclobenzaprine Hcl) 5 mg PO BID PRN PRN Reason: BACK PAIN Docusate Sodium (Colace -) 100 mg PO BID PRN PRN Reason: CONSTIPATION Last Admin: 08/24/18 09:53 Dose: 100 mg Vancomycin HCl (Vancomycin (Pre-Docked)) 1,000 mg in 250 mls @ 166.667 mls/hr IVPB BID [facility]; Protocol Last Admin: 08/24/18 09:54 Dose: 166.667 mls/hr Ibuprofen (Caldolor Injection -) 400 mg IVPB Q8H PRN PRN Reason: FEVER Multivitamins/Minerals/Vitamin C (Tab-A-Vit -) 1 tab PO DAILY [facility] Last Admin: 08/24/18 09:53 Dose: 1 tab Ranitidine HCl (Zantac -) 150 mg PO DAILY [facility] Senna (Senna -) 2 tab PO HS PRN PRN Reason: CONSTIPATION - Objective Vital Signs: Vital Signs Temperature 100.6 F H 08/24/18 14:53 Pulse Rate 95 H 08/24/18 14:53 Respiratory Rate 20 08/24/18 14:53 Blood Pressure 109/70 08/24/18 14:53 O2 Sat by Pulse Oximetry (%) 95 08/24/18 09:00 Constitutional: Yes: No Distress Cardiovascular: Yes: Regular Rate and Rhythm, S1, S2 Respiratory: Yes: CTA Bilaterally Gastrointestinal: Yes: Normal Bowel Sounds, Soft, Other (DISTENDED) Extremities: Yes: Other (FOOT DROP) Labs: CBC, BMP 08/24/18 07:53 08/24/18 07:53 Assessment/Plan LOW GRADE FEVER/ LEUKOCYTOSIS UTI R/O SEPSIS SECONDARY TO UTI NEUROGENIC BLADDER/ INDWELLING PINZON +BC MRSA REPEAT BC NO GROWTH OBTAIN ECHO CONTINUE VANCOMYCIN
[2018-08-24] MEDS ORDERED: PT OWN MED DRAWER 7, Y5N ONE (21:59)
[2018-08-24] MEDS: CYCLOBENZAPRINE HCL 5 MG TABLET PO PRN (22:01)
[2018-08-25 08:22] LABS: HEMATOCRIT 30.6 % (35.4-49); HEMOGLOBIN 9.9 GM/dL (11.7-16.9); MCH 24.5 pg (25.7-33.7); MCHC 32.3 g/dl (32.0-35.9); MEAN CELL VOLUME 75.9 fl (80-96); MEAN PLT VOLUME 7.3 fl (7.5-11.1); PLATELET COUNT 284 K/MM3 (134-434); RBC 4.03 M/mm3 (4.00-5.60); RDW 17.5 % (11.9-15.9); WHITE BLOOD COUNT 11.5 K/mm3 (4.0-10.0)
[2018-08-25 08:33] LABS: ALBUMIN 1.9 g/dl (3.4-5.0); BILIRUBIN,TOTAL 0.4 mg/dL (0.2-1); BLOOD UREA NITROGEN 17.8 mg/dL (7-18); CALCIUM 8.1 mg/dL (8.5-10.1); CREATININE 0.8 mg/dL (0.55-1.3); TOT PROT 6.8 g/dl (6.4-8.2)
--- NOTE | 2018-08-25 09:50 | PATH ---
Surgical Pathology Report Patient Name: ROSLYN HILLS Med. Rec. #: [id number] /Age/Gender: 1965 (Age: 53) / M Account: [id number] Location: [facility] MED/SURG Taken: 08/23/2018 Received: 08/24/2018 Reported: 08/25/2018 Physicians: Moisés Oro M.D. Specimen(s) Received A: FOREIGN BODY JJ STENT B: CALCULI LEFT URETERAL STONES Clinical History Left ureteral stones Final Diagnosis A. JJ STENT, LEFT, REMOVAL: STENT. MACROSCOPIC DIAGNOSIS. B. URETERAL STONES, LEFT, LASER LITHOTRIPSY: URETEROLITHIASIS. MACROSCOPIC DIAGNOSIS. Electronically Signed Eneida Jackson M.D. Gross Description A. Received fresh labeled "left JJ stent," are 2 portions of blue-green, coiled tubing measuring 11.0 and 26.0 cm in length, consistent with a disrupted ureteral stent. No soft tissue is present. No sections are submitted, gross only. B. Received fresh labeled "left ureteral stones," is a 1.1 x 1.0 x 0.3 cm aggregate of layne-brown, irregular to fragmented calculi. The specimen is sent for chemical analysis. /08/24/201808/24/2018
[2018-08-25] MEDS: VANCOMYCIN 1 GRAM (PRE-DOCKED) 1,000 MG/250 ML BAG IVPB SCH ×2 (10:56→22:03)
[2018-08-25] MEDS: MULTIVITAMINS (DAILY MVI) TABLET (FP) PO SCH (10:56)
[2018-08-25] MEDS: RANITIDINE HCL 150 MG TABLET (FP) PO SCH (10:57)
[2018-08-25] MEDS: COLLAGENASE CLOSTRIDIUM HIST. 30 GRAMS TUBE TP SCH (10:57)
--- NOTE | 2018-08-25 12:57 | PN ---
Progress Note, Physician Chief Complaint: Paraplegia B/L Hydronephrosis MDRO Leukocytosis History of Present Illness: Previous notes and events reviewed awake and alert NAD no complaints of chest pain or SOB s/p cystoscopy and stent replacement FUA results reviewed - Current Medication List Current Medications: Active Medications Acetaminophen (Tylenol -) 650 mg PO Q6H PRN PRN Reason: FEVER OR PAIN LEVEL 1-5 Last Admin: 08/24/18 13:50 Dose: 650 mg Collagenase (Santyl -) 1 applic TP DAILY [facility]; Protocol Last Admin: 08/25/18 10:57 Dose: Not Given Cyclobenzaprine HCl (Cyclobenzaprine Hcl) 5 mg PO BID PRN PRN Reason: BACK PAIN Last Admin: 08/24/18 22:01 Dose: 5 mg Docusate Sodium (Colace -) 100 mg PO BID [facility] Vancomycin HCl (Vancomycin (Pre-Docked)) 1,000 mg in 250 mls @ 166.667 mls/hr IVPB BID [facility]; Protocol Last Admin: 08/25/18 10:56 Dose: 166.667 mls/hr Ibuprofen (Caldolor Injection -) 400 mg IVPB Q8H PRN PRN Reason: FEVER Multivitamins/Minerals/Vitamin C (Tab-A-Vit -) 1 tab PO DAILY [facility] Last Admin: 08/25/18 10:56 Dose: 1 tab Ranitidine HCl (Zantac -) 150 mg PO DAILY [facility] Last Admin: 08/25/18 10:57 Dose: 150 mg Senna (Senna -) 2 tab PO HS [facility] - Objective Vital Signs: Vital Signs Temperature 98.8 F 08/25/18 06:00 Pulse Rate 92 H 08/25/18 06:00 Respiratory Rate 20 08/25/18 06:00 Blood Pressure 105/64 08/25/18 06:00 O2 Sat by Pulse Oximetry (%) 95 08/24/18 21:00 Constitutional: Yes: No Distress, Calm Eyes: Yes: Conjunctiva Clear HENT: Yes: Atraumatic Cardiovascular: Yes: Regular Rate and Rhythm Respiratory: Yes: Regular, CTA Bilaterally Gastrointestinal: Yes: Normal Bowel Sounds, Soft, Distention Genitourinary: Yes: Pelaez Present Neurological: Yes: Alert, Oriented Psychiatric: Yes: Alert, Oriented Labs: CBC, BMP 08/25/18 07:30 08/25/18 07:30 Microbiology 08/22/18 12:40 Blood - Peripheral Venous Blood Culture - Preliminary NO GROWTH OBTAINED AFTER 72 HOURS, INCUBATION TO CONTINUE FOR 2 DAYS. 08/22/18 12:20 Blood - Peripheral Venous Blood Culture - Preliminary NO GROWTH OBTAINED AFTER 72 HOURS, INCUBATION TO CONTINUE FOR 2 DAYS. 08/19/18 11:10 Blood - Peripheral Venous Blood Culture - Final NO GROWTH AFTER 5 DAYS INCUBATION 08/18/18 11:00 Blood - Peripheral Venous Blood Culture - Final NO GROWTH AFTER 5 DAYS INCUBATION 08/18/18 10:55 Blood - Peripheral Venous Blood Culture - Final NO GROWTH AFTER 5 DAYS INCUBATION 08/20/18 16:10 Urine - Urine Pelaez Urine Culture - Final Contaminated: Please Repeat 08/19/18 11:15 Blood - Peripheral Venous Blood Culture - Final S Aureus 08/17/18 17:39 Urine - Urine - Catheterized Urine Culture - Final Contaminated: Please Repeat Problem List - Problems (1) Systolic murmur Assessment/Plan: -LVEF is normal -Echocardiogram pending Code(s): R01.1 - CARDIAC MURMUR, UNSPECIFIED (2) Bilateral hydronephrosis Assessment/Plan: -Urology consult -Renal US shows large exophytic right renal cyst 8.2 x 7.5cm, right renal stones without gross evidence of hydronephrosis, multiple left renal stones with moderate to marked hydronephrosis -POD #2 cystoscopy and stent replacement Code(s): N13.30 - UNSPECIFIED HYDRONEPHROSIS (3) Chronic indwelling Pelaez catheter Assessment/Plan: -Urology on board - care Code(s): Z92.89 - PERSONAL HISTORY OF OTHER MEDICAL TREATMENT (4) Leukocytosis Assessment/Plan: -WBC 11.5 -ID on board -Vancomycin -BC x 1 show MRSA, repeat BC negative Code(s): D72.829 - ELEVATED WHITE BLOOD CELL COUNT, UNSPECIFIED (5) MDRO (multiple drug resistant organisms) resistance Assessment/Plan: -contact precaution -ID on board Code(s): Z16.35 - RESISTANCE TO MULTIPLE ANTIMICROBIAL DRUGS (6) UTI (urinary tract infection) Assessment/Plan: -WBC 11.5 -ID on board -Vancomycin -tylenol prn for temp >100F Code(s): N39.0 - URINARY TRACT INFECTION, SITE NOT SPECIFIED Qualifiers: Urinary tract infection type: site unspecified Hematuria presence: without hematuria Qualified Code(s): N39.0 - Urinary tract infection, site not specified (7) Constipation Assessment/Plan: -FUA shows distal fecal impaction -Colace and Senna Code(s): K59.00 - CONSTIPATION, UNSPECIFIED Qualifiers: Constipation type: unspecified constipation type Qualified Code(s): K59.00 - Constipation, unspecified Assessment/Plan see problem list dvt ppx
--- NOTE | 2018-08-25 14:32 | ECHO ---
Name: ROSLYN HILLS Exam:Adult Echocardiogram Study Date: 08/25/2018 08:55 AM Age: 53 yrs Reason For Study: +bc mrsa Height: 69 in Weight: 144 lb BSA: 1.8 m2 MMode/2D Measurements & Calculations IVSd: 0.74 cm Ao root diam: 3.4 cm LVIDd: 4.3 cm LA dimension: 2.5 cm LVIDs: 2.4 cm LVPWd: 0.82 cm LVPWs: 1.5 cm EDV(Teich): 82.1 ml ESV(Teich): 19.4 ml LVOT diam: 2.1 cm TAPSE: 2.3 cm RV S Tejinder: 16.8 cm/sec Doppler Measurements & Calculations MV E max tejinder: 65.6 cm/sec Ao V2 max: 282.6 cm/sec MV A max tejinder: 105.1 cm/sec Ao max P.5 mmHg MV E/A: 0.62 Ao V2 mean: 179.5 cm/sec MV dec time: 0.15 sec Ao mean P.5 mmHg Ao V2 VTI: 54.2 cm JHONY(I,D): 2.0 cm2 JHONY(V,D): 1.4 cm2 LV V1 max P.7 mmHg SV(LVOT): 109.0 ml LV V1 mean P.0 mmHg LV V1 max: 112.9 cm/sec LV V1 mean: 104.0 cm/sec LV V1 VTI: 31.6 cm PA V2 max: 143.2 cm/sec Med Peak E' Tejinder: 5.7 cm/sec PA max P.2 mmHg Med E/e': 11.6 Lat Peak E' Tejinder: 8.0 cm/sec Lat E/e': 8.2 Procedure A two-dimensional transthoracic echocardiogram with color flow and Doppler was performed. The study w as technically difficult with many images being suboptimal in quality. Left Ventricle The left ventricular size, thickness and function are normal. The left ventricular ejection fraction is normal. E/A reversal consistent with but not diagnostic of poor LV compliance. The left ventricular w all motion is normal. Right Ventricle The right ventricle is not well visualized. Atria Normal left and right atrial size and function. Mitral Valve The mitral valve is not well visualized. There is no mitral valve stenosis. There is trace to mild mi tral regurgitation. Tricuspid Valve The tricuspid valve is not well visualized. There is no tricuspid stenosis. There was insufficient TR detected to calculate RV systolic pressure. Aortic Valve The aortic valve is not well visualized. Mild valvular aortic stenosis. No aortic regurgitation is pr esent. Pulmonic Valve The pulmonic valve is not well visualized. Great Vessels The aortic root is normal size. Pericardium/Pleura There is no pericardial effusion. Interpretation Summary Clinical correlation is recommended. Would consider a transesophageal echocardiogram if clinically in dicated. The left ventricular size, thickness and function are normal The left ventricular ejection fraction is normal. The left ventricular wall motion is normal. E/A reversal consistent with but not diagnostic of poor LV compliance The study was technically difficult with many images being suboptimal in quality. The mitral valve is not well visualized. The tricuspid valve is not well visualized. There was insufficient TR detected to calculate RV systolic pressure. There is trace to mild mitral regurgitation. Mild valvular aortic stenosis. Clinical correlation is recommended. Would consider a transesophageal echocardiogram if clinically indicated. MD Flip Guidry 08/25/2018 02:31 PM
[2018-08-25] MEDS ORDERED: PT OWN MED DRAWER 7, Y5N ONE (21:56)
[2018-08-25] MEDS: CYCLOBENZAPRINE HCL 5 MG TABLET PO PRN (21:58)
[2018-08-25] MEDS: SENNOSIDES 8.6MG TABLET (FP) PO SCH (22:03)
[2018-08-25] MEDS: DOCUSATE SODIUM 100 MG CAPSULE (FP) PO SCH (22:03)
[2018-08-26] MEDS: IBUPROFEN 800 MG/8 ML IJ IVPB PRN ×2 (03:49→23:05)
[2018-08-26 09:20] LABS: ALBUMIN 1.8 g/dl (3.4-5.0); BILIRUBIN,TOTAL 0.5 mg/dL (0.2-1); BLOOD UREA NITROGEN 19.4 mg/dL (7-18); CALCIUM 8.3 mg/dL (8.5-10.1); CREATININE 0.7 mg/dL (0.55-1.3); POTASSIUM 3.6 mmol/L (3.5-5.1); TOT PROT 6.7 g/dl (6.4-8.2)
[2018-08-26] MEDS: COLLAGENASE CLOSTRIDIUM HIST. 30 GRAMS TUBE TP SCH (09:50)
[2018-08-26 09:51] LABS: HEMATOCRIT 29.2 % (35.4-49); HEMOGLOBIN 9.4 GM/dL (11.7-16.9); MCH 24.4 pg (25.7-33.7); MCHC 32.2 g/dl (32.0-35.9); MEAN CELL VOLUME 75.7 fl (80-96); MEAN PLT VOLUME 7.2 fl (7.5-11.1); RBC 3.86 M/mm3 (4.00-5.60); RDW 17.3 % (11.9-15.9); WHITE BLOOD COUNT 13.4 K/mm3 (4.0-10.0)
[2018-08-26] MEDS: MULTIVITAMINS (DAILY MVI) TABLET (FP) PO SCH (09:52)
[2018-08-26] MEDS: VANCOMYCIN 1 GRAM (PRE-DOCKED) 1,000 MG/250 ML BAG IVPB SCH ×2 (09:52→23:07)
[2018-08-26] MEDS: DOCUSATE SODIUM 100 MG CAPSULE (FP) PO SCH ×3 (09:52→23:13)
[2018-08-26] MEDS: RANITIDINE HCL 150 MG TABLET (FP) PO SCH (09:52)
[2018-08-26 09:59] LABS: PLATELET COUNT 313 K/MM3 (134-434)
[2018-08-26] MEDS ORDERED: POLYETHYLENE GLYCOL 3350 119 GM BTL PO SCH (10:00)
[2018-08-26] MEDS ORDERED: MINERAL OIL 30 ML UNIT-DOSE CUP PO ONE (12:33)
--- NOTE | 2018-08-26 12:39 | PN ---
Progress Note, Physician Chief Complaint: patient seen and examined small BM wants mineral oil oral on iv abx the midline cath is leaking wants to go home - Current Medication List Current Medications: Active Medications Acetaminophen (Tylenol -) 650 mg PO Q6H PRN PRN Reason: FEVER OR PAIN LEVEL 1-5 Last Admin: 08/24/18 13:50 Dose: 650 mg Collagenase (Santyl -) 1 applic TP DAILY [facility]; Protocol Last Admin: 08/26/18 09:50 Dose: Not Given Cyclobenzaprine HCl (Cyclobenzaprine Hcl) 5 mg PO BID PRN PRN Reason: BACK PAIN Last Admin: 08/25/18 21:58 Dose: 5 mg Docusate Sodium (Colace -) 100 mg PO BID [facility] Last Admin: 08/26/18 10:46 Dose: Not Given Vancomycin HCl (Vancomycin (Pre-Docked)) 1,000 mg in 250 mls @ 166.667 mls/hr IVPB BID [facility]; Protocol Last Admin: 08/26/18 09:52 Dose: 166.667 mls/hr Ibuprofen (Caldolor Injection -) 400 mg IVPB Q8H PRN PRN Reason: FEVER Last Admin: 08/26/18 03:49 Dose: 400 mg Mineral Oil (Mineral Oil -) 30 ml PO ONCE ONE Stop: 08/26/18 12:34 Multivitamins/Minerals/Vitamin C (Tab-A-Vit -) 1 tab PO DAILY [facility] Last Admin: 08/26/18 09:52 Dose: 1 tab Ranitidine HCl (Zantac -) 150 mg PO DAILY [facility] Last Admin: 08/26/18 09:52 Dose: 150 mg Senna (Senna -) 2 tab PO HS [facility] Last Admin: 08/25/18 22:03 Dose: Not Given - Objective Vital Signs: Vital Signs Temperature 98.1 F 08/26/18 08:27 Pulse Rate 83 08/26/18 08:27 Respiratory Rate 18 08/26/18 08:27 Blood Pressure 98/65 08/26/18 08:27 O2 Sat by Pulse Oximetry (%) 95 08/25/18 21:00 Constitutional: Yes: Calm Cardiovascular: Yes: Regular Rate and Rhythm, S1, S2 Respiratory: Yes: CTA Bilaterally Gastrointestinal: Yes: Distention Edema: No Neurological: Yes: Alert, Pre-Existing Deficit Labs: CBC, BMP 08/26/18 08:15 08/26/18 08:15 Problem List - Problems (1) Bilateral hydronephrosis Assessment/Plan: s/p cystocopy and stent replacement Code(s): N13.30 - UNSPECIFIED HYDRONEPHROSIS (2) Leukocytosis Assessment/Plan: Microbiology 08/25/18 07:30 Blood - Peripheral Venous Blood Culture - Preliminary NO GROWTH OBTAINED AFTER 24 HOURS, INCUBATION TO CONTINUE FOR 4 DAYS. 08/25/18 07:25 Blood - Peripheral Venous Blood Culture - Preliminary NO GROWTH OBTAINED AFTER 24 HOURS, INCUBATION TO CONTINUE FOR 4 DAYS. 08/22/18 12:40 Blood - Peripheral Venous Blood Culture - Preliminary NO GROWTH OBTAINED AFTER 72 HOURS, INCUBATION TO CONTINUE FOR 2 DAYS. 08/22/18 12:20 Blood - Peripheral Venous Blood Culture - Preliminary NO GROWTH OBTAINED AFTER 72 HOURS, INCUBATION TO CONTINUE FOR 2 DAYS. echo done no vegetations afebrile wbc still slightly elevated iv vancomcycin Microbiology 08/19/18 11:15 Blood - Peripheral Venous Blood Culture - Final Mr S Aureus Code(s): D72.829 - ELEVATED WHITE BLOOD CELL COUNT, UNSPECIFIED (3) Constipated Assessment/Plan: mineral oil po does not want colace Code(s): K59.00 - CONSTIPATION, UNSPECIFIED (4) Paraplegia following spinal cord injury Assessment/Plan: frequent turn and positioning Code(s): G82.20 - PARAPLEGIA, UNSPECIFIED
--- NOTE | 2018-08-26 14:33 | PROC ---
Central Line Insertion - Procedure Note MIDLINE CATHETER PLACEMENT TIME OUT performed prior to this procedure with verbal confirmation of correct patient identity, correct side, agreement of the procedure, correct patient position, availability of necessary equipment. The consent form is complete and accurate. Risk of possible infection and bleeding have been discussed with the patient. Safety precautions based on patient history or medication use has been addressed. Indication: Poor Venous Access Consent on Chart: Yes Central Line: Other (Double lumen Midline catheter) Position: Supine Area prepped with Chlorhexidine solution then draped using sterile barrier protection. Ultrasound Guided Assistance: No Site: Left cephalic vein Wire was placed down the midline catheter. Catheter was removed and found to be fully intact, and new catheter cut to 6cm was introduced. Guide wire removed intact. Each port aspirated then flushed with sterile normal saline and capped. Line secured to skin with securing device. Biopatch placed around base of line. Sterile occlusive dressing applied. No complications. Patient tolerated the procedure well. Line is ready for use immediately, may have difficulty with blood draws as it appears pt has some stenosis in vessel, but should be fine for intravenous use, if continues to have problems recommend pt be referred to IR for exchange to PICC line. LINE IS NOT CENTRALLY LOCATED
[2018-08-26] MEDS ORDERED: PT OWN MED DRAWER 7, Y5N ONE (22:51)
[2018-08-26] MEDS: CYCLOBENZAPRINE HCL 5 MG TABLET PO PRN (23:08)
[2018-08-26] MEDS: SENNOSIDES 8.6MG TABLET (FP) PO SCH (23:13)
[2018-08-27] MEDS: COLLAGENASE CLOSTRIDIUM HIST. 30 GRAMS TUBE TP SCH (09:14)
[2018-08-27] MEDS: MULTIVITAMINS (DAILY MVI) TABLET (FP) PO SCH (09:14)
[2018-08-27] MEDS: DOCUSATE SODIUM 100 MG CAPSULE (FP) PO SCH ×2 (09:14→21:25)
[2018-08-27] MEDS: RANITIDINE HCL 150 MG TABLET (FP) PO SCH (09:14)
[2018-08-27] MEDS: VANCOMYCIN 1 GRAM (PRE-DOCKED) 1,000 MG/250 ML BAG IVPB SCH ×2 (09:15→21:25)
--- NOTE | 2018-08-27 13:45 | PN ---
Progress Note, Physician History of Present Illness: C/O OCCASIONAL B/L FLANK PAIN AWAKE, ALERT AFEBRILE WBC SL ELEVATED - Current Medication List Current Medications: Active Medications Acetaminophen (Tylenol -) 650 mg PO Q6H PRN PRN Reason: FEVER OR PAIN LEVEL 1-5 Last Admin: 08/24/18 13:50 Dose: 650 mg Collagenase (Santyl -) 1 applic TP DAILY [facility]; Protocol Last Admin: 08/27/18 09:14 Dose: Not Given Cyclobenzaprine HCl (Cyclobenzaprine Hcl) 5 mg PO BID PRN PRN Reason: BACK PAIN Last Admin: 08/26/18 23:08 Dose: 5 mg Docusate Sodium (Colace -) 100 mg PO BID [facility] Last Admin: 08/27/18 09:14 Dose: Not Given Vancomycin HCl (Vancomycin (Pre-Docked)) 1,000 mg in 250 mls @ 166.667 mls/hr IVPB BID [facility]; Protocol Last Admin: 08/27/18 09:15 Dose: 166.667 mls/hr Ibuprofen (Caldolor Injection -) 400 mg IVPB Q8H PRN PRN Reason: FEVER Last Admin: 08/26/18 23:05 Dose: 400 mg Multivitamins/Minerals/Vitamin C (Tab-A-Vit -) 1 tab PO DAILY [facility] Last Admin: 08/27/18 09:14 Dose: 1 tab Ranitidine HCl (Zantac -) 150 mg PO DAILY [facility] Last Admin: 08/27/18 09:14 Dose: 150 mg Senna (Senna -) 2 tab PO HS [facility] Last Admin: 08/26/18 23:13 Dose: Not Given - Objective Vital Signs: Vital Signs Temperature 98.2 F 08/27/18 01:48 Pulse Rate 90 08/27/18 01:48 Respiratory Rate 18 08/27/18 01:48 Blood Pressure 106/57 L 08/27/18 01:48 O2 Sat by Pulse Oximetry (%) 96 08/26/18 21:00 Constitutional: Yes: No Distress Eyes: Yes: Conjunctiva Clear Cardiovascular: Yes: Regular Rate and Rhythm, S1, S2 Respiratory: Yes: Diminished Gastrointestinal: Yes: Normal Bowel Sounds, Other (DISTENDED). No: Tenderness Edema: No Labs: CBC, BMP 08/26/18 08:15 08/26/18 08:15 Assessment/Plan +BC MRSA UTI R/O SEPSIS SECONDARY TO UTI NEUROGENIC BLADDER/ INDWELLING PINZON ECHO RESULT NOTED CONTINUE VANCOMYCIN PICC FOR OUTPATIENT ANTIBIOTIC TX DAPTOMYCIN 8MG/KG QD X 3W
[2018-08-27] MEDS: CYCLOBENZAPRINE HCL 5 MG TABLET PO PRN (13:50)
--- NOTE | 2018-08-27 14:07 | PN ---
Progress Note (short form) - Note Progress Note: UROLOGY NOTE. PT. WITH N.B. AND SPT H/O OF SOILA. RENAL STONES. S/P EXCHANGE OF LT. URETERAL STENT. RENAL SONO REVEALS LESS LT. HYDRONEPHROSIS AND STENT IS IN PROPER PLACE
--- NOTE | 2018-08-27 14:07 | PN ---
Progress Note, Physician Chief Complaint: awake alert c/o left flank swelling abdominal distention - Current Medication List Current Medications: Active Medications Acetaminophen (Tylenol -) 650 mg PO Q6H PRN PRN Reason: FEVER OR PAIN LEVEL 1-5 Last Admin: 08/24/18 13:50 Dose: 650 mg Collagenase (Santyl -) 1 applic TP DAILY [facility]; Protocol Last Admin: 08/27/18 09:14 Dose: Not Given Cyclobenzaprine HCl (Cyclobenzaprine Hcl) 5 mg PO BID PRN PRN Reason: BACK PAIN Last Admin: 08/27/18 13:50 Dose: 5 mg Docusate Sodium (Colace -) 100 mg PO BID [facility] Last Admin: 08/27/18 09:14 Dose: Not Given Vancomycin HCl (Vancomycin (Pre-Docked)) 1,000 mg in 250 mls @ 166.667 mls/hr IVPB BID [facility]; Protocol Last Admin: 08/27/18 09:15 Dose: 166.667 mls/hr Ibuprofen (Caldolor Injection -) 400 mg IVPB Q8H PRN PRN Reason: FEVER Last Admin: 08/26/18 23:05 Dose: 400 mg Multivitamins/Minerals/Vitamin C (Tab-A-Vit -) 1 tab PO DAILY [facility] Last Admin: 08/27/18 09:14 Dose: 1 tab Ranitidine HCl (Zantac -) 150 mg PO DAILY [facility] Last Admin: 08/27/18 09:14 Dose: 150 mg Senna (Senna -) 2 tab PO HS [facility] Last Admin: 08/26/18 23:13 Dose: Not Given - Objective Vital Signs: Vital Signs Temperature 98.2 F 08/27/18 01:48 Pulse Rate 90 08/27/18 01:48 Respiratory Rate 18 08/27/18 01:48 Blood Pressure 106/57 L 08/27/18 01:48 O2 Sat by Pulse Oximetry (%) 96 08/26/18 21:00 Constitutional: Yes: Mild Distress Eyes: Yes: WNL HENT: Yes: WNL Neck: Yes: WNL Cardiovascular: Yes: WNL Respiratory: Yes: WNL Gastrointestinal: Yes: Distention, Hypoactive Bowel Sounds Genitourinary: Yes: Incontinence Musculoskeletal: Yes: Muscle Weakness Extremities: Yes: Deformity Edema: No Peripheral Pulses WNL: Yes Integumentary: Yes: Pressure Ulcer Wound/Incision: Yes: Dressing Dry and Intact Neurological: Yes: Loss of Sensation, Pre-Existing Deficit, Weakness ...Motor Strength: LLE, RLE Psychiatric: Yes: Other Labs: CBC, BMP 08/26/18 08:15 08/26/18 08:15 Problem List - Problems (1) Flank pain Code(s): R10.9 - UNSPECIFIED ABDOMINAL PAIN (2) Abscess Code(s): L02.91 - CUTANEOUS ABSCESS, UNSPECIFIED (3) Anemia Code(s): D64.9 - ANEMIA, UNSPECIFIED Qualifiers: Anemia type: iron deficiency Other causes of anemia: due to other specified chronic disease (4) Bilateral hydronephrosis Code(s): N13.30 - UNSPECIFIED HYDRONEPHROSIS (5) Chronic indwelling Pelaez catheter Code(s): Z92.89 - PERSONAL HISTORY OF OTHER MEDICAL TREATMENT (6) Decubitus ulcer Code(s): L89.90 - PRESSURE ULCER OF UNSPECIFIED SITE, UNSPECIFIED STAGE Qualifiers: Laterality: unspecified laterality Qualified Code(s): L89.40 - Pressure ulcer of contiguous site of back, buttock and hip, unspecified stage (7) Leukocytosis Code(s): D72.829 - ELEVATED WHITE BLOOD CELL COUNT, UNSPECIFIED (8) MDRO (multiple drug resistant organisms) resistance Code(s): Z16.35 - RESISTANCE TO MULTIPLE ANTIMICROBIAL DRUGS (9) Obstructive uropathy Code(s): N13.9 - OBSTRUCTIVE AND REFLUX UROPATHY, UNSPECIFIED (10) Paraplegia following spinal cord injury Code(s): G82.20 - PARAPLEGIA, UNSPECIFIED Assessment/Plan abdominal xray bedside r/o ileus/perforation iv access failing will need surgery to place triple lumen iv abx per id left flank erythema r/o abscess surgery recalled for consult on left flank swelling
[2018-08-27] MEDS: ACETAMINOPHEN 325 MG TABLET (FP) PO PRN (15:49)
[2018-08-27 20:12] LABS: HEMATOCRIT 31.2 % (35.4-49); MCH 24.5 pg (25.7-33.7); MEAN CELL VOLUME 76.4 fl (80-96); MEAN PLT VOLUME 7.2 fl (7.5-11.1); PLATELET COUNT 348 K/MM3 (134-434); RBC 4.09 M/mm3 (4.00-5.60); RDW 17.5 % (11.9-15.9); WHITE BLOOD COUNT 13.9 K/mm3 (4.0-10.0)
--- NOTE | 2018-08-27 20:12 | HOSP ---
Physical Examination Vital Signs: Vital Signs Temperature 99.1 F 08/27/18 17:54 Pulse Rate 101 H 08/27/18 17:54 Respiratory Rate 18 08/27/18 17:54 Blood Pressure 96/53 L 08/27/18 17:54 O2 Sat by Pulse Oximetry (%) 96 08/27/18 09:00 Hospitalist Encounter Assessment: I examined patient, he was found to have distended abdomen, tympanic, with some bowel sounds present in 4 quadrants. He is paraplegic and unable to verbalize if he feels pain, unsure if is passing gas. As per nursing some minimal BMs during the day. Abdomen xray shows distended bowel loops. Ordered CT of abdomen with PO contrast, bmp, cbc, lactate. Case discussed with Dr. Solomon.
[2018-08-27 20:34] LABS: BLOOD UREA NITROGEN 18.6 mg/dL (7-18); CALCIUM 8.2 mg/dL (8.5-10.1); CREATININE 0.9 mg/dL (0.55-1.3); POTASSIUM 4.1 mmol/L (3.5-5.1)
[2018-08-27] MEDS: SENNOSIDES 8.6MG TABLET (FP) PO SCH (21:26)
[2018-08-27] MEDS: SODIUM CHLORIDE 1,000 ML IV SCH (23:06)
[2018-08-28] MEDS: SODIUM CHLORIDE 1,000 ML IV SCH ×3 (01:38→21:42)
[2018-08-28] MEDS ORDERED: PT OWN MED DRAWER 7, Y5N ONE ×3 (01:43→10:39)
[2018-08-28] MEDS: SIMETHICONE 80 MG TAB.CHEW (FP) PO PRN ×2 (01:51→23:54)
[2018-08-28] MEDS: CYCLOBENZAPRINE HCL 5 MG TABLET PO PRN (01:52)
--- NOTE | 2018-08-28 07:57 | OP ---
DATE OF OPERATION: 08/23/2018 SURGEON: Tru Fitzgerald MD PREOPERATIVE DIAGNOSIS: Bilateral nephrolithiasis, neurogenic bladder, recurrent urinary tract infections, left hydronephrosis, status post placement of a left double-J stent 3 months earlier. OPERATIVE PROCEDURE: Cystourethroscopy, removal of left double-J stent, left retrograde pyelogram, left ureteroscopy with stone extraction, and placement of a left double-J stent. ANESTHESIA: General. DESCRIPTION OF PROCEDURE: Under above stated anesthesia, patient was prepped and draped in the usual sterile manner. He was placed in the dorsal lithotomy position. Cystoscopy revealed multiple false passages in the posterior urethra. 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 There were multiple stones in the prostatic urethral diverticulum. A basket was inserted and multiple stones were removed. Inspection of the bladder revealed a grade 3 trabeculation. There were multiple saccules. Ureteral orifices appeared to be within normal limits. A left double-J stent was seen protruding from the left ureteral orifice. This was removed atraumatically. A pluck tip was placed into the left ureteral orifice, and 10 mL of contrast was injected. This revealed a grade 4 hydroureteronephrosis with multiple filling defects in the left upper ureter. Therefore, a Glidewire was passed up the left renal unit. The cystoscope was removed. A semi-rigid ureteroscope was inserted. Ureteroscopy revealed a dilated ureter. Several stones along the ureter were seen and then basketed atraumatically. The renal pelvis was entered, and this revealed what possibly is a staghorn calculi imbedded in the lower calyceal system of the left kidney. Ureteroscopy was then discontinued. A 24-cm 7-Cuban double-J stent was placed into the left renal unit. X-rays confirmed good position of the stent. The bladder was emptied. The scope was removed. An 18-Cuban Pelaez catheter was placed. Irrigation was clear. The patient tolerated the procedure well. He returned to the recovery room in good condition. TRU FITZGERALD M.D. [id number]
[2018-08-28] MEDS ORDERED: SODIUM PHOSPHATE/NA BIPHOS 133 ML ENEMA PR ONE (08:49)
--- NOTE | 2018-08-28 08:59 | PN ---
Progress Note, Physician Chief Complaint: AWAKE ALERT EVENTS AND NOTES REVIEWED CT SCAN - Current Medication List Current Medications: Active Medications Acetaminophen (Tylenol -) 650 mg PO Q6H PRN PRN Reason: FEVER OR PAIN LEVEL 1-5 Last Admin: 08/27/18 15:49 Dose: 650 mg Collagenase (Santyl -) 1 applic TP DAILY [facility]; Protocol Last Admin: 08/27/18 09:14 Dose: Not Given Cyclobenzaprine HCl (Cyclobenzaprine Hcl) 5 mg PO BID PRN PRN Reason: BACK PAIN Last Admin: 08/28/18 01:52 Dose: 5 mg Docusate Sodium (Colace -) 100 mg PO BID [facility] Last Admin: 08/27/18 21:25 Dose: Not Given Vancomycin HCl (Vancomycin (Pre-Docked)) 1,000 mg in 250 mls @ 166.667 mls/hr IVPB BID [facility]; Protocol Last Admin: 08/27/18 21:25 Dose: 166.667 mls/hr Sodium Chloride (Normal Saline -) 1,000 mls @ 75 mls/hr IV ASDIR [facility] Last Admin: 08/28/18 01:38 Dose: Not Given Ibuprofen (Caldolor Injection -) 400 mg IVPB Q8H PRN PRN Reason: FEVER Last Admin: 08/26/18 23:05 Dose: 400 mg Multivitamins/Minerals/Vitamin C (Tab-A-Vit -) 1 tab PO DAILY [facility] Last Admin: 08/27/18 09:14 Dose: 1 tab Ranitidine HCl (Zantac -) 150 mg PO DAILY [facility] Last Admin: 08/27/18 09:14 Dose: 150 mg Senna (Senna -) 2 tab PO HS [facility] Last Admin: 08/27/18 21:26 Dose: Not Given Simethicone (Mylicon -) 80 mg PO Q4H PRN PRN Reason: GAS Last Admin: 08/28/18 01:51 Dose: 80 mg Sodium Phosphate (Fleet Adult Rectal Enema -) 133 ml OR ONCE ONE Stop: 08/28/18 08:50 - Objective Vital Signs: Vital Signs Temperature 98.2 F 08/28/18 06:00 Pulse Rate 71 08/28/18 06:00 Respiratory Rate 20 08/28/18 06:00 Blood Pressure 94/58 L 08/28/18 06:00 O2 Sat by Pulse Oximetry (%) 94 L 08/27/18 21:00 Constitutional: Yes: No Distress Eyes: Yes: WNL HENT: Yes: WNL Neck: Yes: WNL Cardiovascular: Yes: WNL Respiratory: Yes: WNL Gastrointestinal: Yes: Distention, Hypoactive Bowel Sounds Genitourinary: Yes: Incontinence Musculoskeletal: Yes: Muscle Weakness Extremities: Yes: Deformity Edema: No Integumentary: Yes: Pressure Ulcer (STAGE 4 AND UNSTAGEABLE ULCERS) Wound/Incision: Yes: Dressing Dry and Intact Neurological: Yes: Loss of Sensation, Pre-Existing Deficit, Weakness ...Motor Strength: LLE, RLE Labs: CBC, BMP 08/27/18 19:30 08/27/18 19:30 Problem List - Problems (1) Flank pain Code(s): R10.9 - UNSPECIFIED ABDOMINAL PAIN (2) Abscess Code(s): L02.91 - CUTANEOUS ABSCESS, UNSPECIFIED (3) Anemia Code(s): D64.9 - ANEMIA, UNSPECIFIED Qualifiers: Anemia type: iron deficiency Other causes of anemia: due to other specified chronic disease (4) Bilateral hydronephrosis Code(s): N13.30 - UNSPECIFIED HYDRONEPHROSIS (5) Chronic indwelling Pelaez catheter Code(s): Z92.89 - PERSONAL HISTORY OF OTHER MEDICAL TREATMENT (6) Decubitus ulcer Code(s): L89.90 - PRESSURE ULCER OF UNSPECIFIED SITE, UNSPECIFIED STAGE Qualifiers: Laterality: unspecified laterality Qualified Code(s): L89.40 - Pressure ulcer of contiguous site of back, buttock and hip, unspecified stage (7) Leukocytosis Code(s): D72.829 - ELEVATED WHITE BLOOD CELL COUNT, UNSPECIFIED (8) MDRO (multiple drug resistant organisms) resistance Code(s): Z16.35 - RESISTANCE TO MULTIPLE ANTIMICROBIAL DRUGS (9) Obstructive uropathy Code(s): N13.9 - OBSTRUCTIVE AND REFLUX UROPATHY, UNSPECIFIED (10) Paraplegia following spinal cord injury Code(s): G82.20 - PARAPLEGIA, UNSPECIFIED Assessment/Plan CT SCAN ABDOMEN VERBAL PER NURSE SHOWS NO PERFORATION HOWEVER STOOL IMPACTED IN COLON. FLEET ENEMA ORDERED MOM 30 CC PO X 1 RESTART MEALS SURGERY TO REPLECE ACCESS FOR IV CONTINUE IV ABX IVF REPEAT LABS A.M.
[2018-08-28] MEDS: MULTIVITAMINS (DAILY MVI) TABLET (FP) PO SCH (10:40)
[2018-08-28] MEDS: RANITIDINE HCL 150 MG TABLET (FP) PO SCH (10:41)
[2018-08-28] MEDS: MAGNESIUM HYDROX 2400MG/30ML ORAL SUSPENSION 30 ML CUP PO PRN ×2 (10:45→23:54)
[2018-08-28] MEDS: DOCUSATE SODIUM 100 MG CAPSULE (FP) PO SCH ×2 (11:40→21:42)
[2018-08-28] MEDS: COLLAGENASE CLOSTRIDIUM HIST. 30 GRAMS TUBE TP SCH (11:40)
[2018-08-28] MEDS: VANCOMYCIN 1 GRAM (PRE-DOCKED) 1,000 MG/250 ML BAG IVPB SCH ×2 (20:18→21:42)
[2018-08-28] MEDS: SENNOSIDES 8.6MG TABLET (FP) PO SCH (21:42)
[2018-08-29] MEDS: RANITIDINE HCL 150 MG TABLET (FP) PO SCH (10:39)
[2018-08-29] MEDS: MULTIVITAMINS (DAILY MVI) TABLET (FP) PO SCH (10:39)
[2018-08-29] MEDS: SODIUM CHLORIDE 1,000 ML IV SCH ×2 (10:52→21:13)
[2018-08-29] MEDS: DOCUSATE SODIUM 100 MG CAPSULE (FP) PO SCH ×2 (10:52→21:12)
--- NOTE | 2018-08-29 10:52 | PN ---
Progress Note, Physician Chief Complaint: AWAKE ALERT NO FEVER NO CHILLS +BM +FLATULENCE - Current Medication List Current Medications: Active Medications Acetaminophen (Tylenol -) 650 mg PO Q6H PRN PRN Reason: FEVER OR PAIN LEVEL 1-5 Last Admin: 08/27/18 15:49 Dose: 650 mg Collagenase (Santyl -) 1 applic TP DAILY [facility]; Protocol Last Admin: 08/28/18 11:40 Dose: Not Given Cyclobenzaprine HCl (Cyclobenzaprine Hcl) 5 mg PO BID PRN PRN Reason: BACK PAIN Last Admin: 08/28/18 01:52 Dose: 5 mg Docusate Sodium (Colace -) 100 mg PO BID [facility] Last Admin: 08/28/18 21:42 Dose: Not Given Vancomycin HCl (Vancomycin (Pre-Docked)) 1,000 mg in 250 mls @ 166.667 mls/hr IVPB BID [facility]; Protocol Last Admin: 08/28/18 21:42 Dose: Not Given Sodium Chloride (Normal Saline -) 1,000 mls @ 75 mls/hr IV [facility] Last Admin: 08/28/18 21:42 Dose: Not Given Sodium Chloride (Normal Saline -) 1,000 mls @ 75 mls/hr IV [facility] Last Admin: 08/28/18 20:17 Dose: Not Given Ibuprofen (Caldolor Injection -) 400 mg IVPB Q8H PRN PRN Reason: FEVER Last Admin: 08/26/18 23:05 Dose: 400 mg Magnesium Hydroxide (Milk Of Magnesia -) 30 ml PO DAILY PRN PRN Reason: CONSTIPATION Last Admin: 08/28/18 23:54 Dose: 30 ml Multivitamins/Minerals/Vitamin C (Tab-A-Vit -) 1 tab PO DAILY [facility] Last Admin: 08/28/18 10:40 Dose: 1 tab Ranitidine HCl (Zantac -) 150 mg PO DAILY [facility] Last Admin: 08/28/18 10:41 Dose: 150 mg Senna (Senna -) 2 tab PO HS [facility] Last Admin: 08/28/18 21:42 Dose: Not Given Simethicone (Mylicon -) 80 mg PO Q4H PRN PRN Reason: GAS Last Admin: 08/28/18 23:54 Dose: 80 mg - Objective Vital Signs: Vital Signs Temperature 99.5 F 08/29/18 00:00 Pulse Rate 89 08/28/18 22:00 Respiratory Rate 20 08/28/18 22:00 Blood Pressure 121/70 08/28/18 22:00 O2 Sat by Pulse Oximetry (%) 95 08/28/18 21:00 Constitutional: Yes: No Distress Eyes: Yes: WNL HENT: Yes: WNL Neck: Yes: WNL Cardiovascular: Yes: Regular Rate and Rhythm Respiratory: Yes: WNL Gastrointestinal: Yes: Distention, Other (LEFT FLANK ERYTHEMA/TENDERNESS) Genitourinary: Yes: Pelaez Present, Other Musculoskeletal: Yes: Muscle Weakness Extremities: Yes: Other Edema: No Integumentary: Yes: Pressure Ulcer Wound/Incision: Yes: Dressing Dry and Intact Neurological: Yes: Loss of Sensation, Pre-Existing Deficit, Weakness ...Motor Strength: LLE, RLE Psychiatric: Yes: Other Labs: CBC, BMP 08/27/18 19:30 08/27/18 19:30 Problem List - Problems (1) Flank pain Code(s): R10.9 - UNSPECIFIED ABDOMINAL PAIN (2) Abscess Code(s): L02.91 - CUTANEOUS ABSCESS, UNSPECIFIED (3) Anemia Code(s): D64.9 - ANEMIA, UNSPECIFIED Qualifiers: Anemia type: iron deficiency Other causes of anemia: due to other specified chronic disease (4) Bilateral hydronephrosis Code(s): N13.30 - UNSPECIFIED HYDRONEPHROSIS (5) Chronic indwelling Pelaez catheter Code(s): Z92.89 - PERSONAL HISTORY OF OTHER MEDICAL TREATMENT (6) Decubitus ulcer Code(s): L89.90 - PRESSURE ULCER OF UNSPECIFIED SITE, UNSPECIFIED STAGE Qualifiers: Laterality: unspecified laterality Qualified Code(s): L89.40 - Pressure ulcer of contiguous site of back, buttock and hip, unspecified stage (7) Leukocytosis Code(s): D72.829 - ELEVATED WHITE BLOOD CELL COUNT, UNSPECIFIED (8) MDRO (multiple drug resistant organisms) resistance Code(s): Z16.35 - RESISTANCE TO MULTIPLE ANTIMICROBIAL DRUGS (9) Obstructive uropathy Code(s): N13.9 - OBSTRUCTIVE AND REFLUX UROPATHY, UNSPECIFIED (10) Paraplegia following spinal cord injury Code(s): G82.20 - PARAPLEGIA, UNSPECIFIED Assessment/Plan DR HAYDEN CONSULTED FROM [facility] FOR TRIPLE LUMEN PLACEMENT PATIENTS' ACCESS IS NOT WORKING AND SURGERY CAN NOT CHANGE IT TODAY. WILL D/W ID ON PO ABX FOR NOW OR [facility] RETROPERITONEAL COLLECTION OF FLUID ORDERED DRAINAGE WITH CULTURES TOMORROW WITH [facility] MOM/ENEMA PER RECTAL HAVE WORKED WITH +BM INCREASE FLUID INTAKE ULCER WOUND CARE TO BACK/BUTTOCK PLASTIC SURGERY IS ON THE CASE
[2018-08-29] MEDS: COLLAGENASE CLOSTRIDIUM HIST. 30 GRAMS TUBE TP SCH (10:53)
[2018-08-29] MEDS: VANCOMYCIN 1 GRAM (PRE-DOCKED) 1,000 MG/250 ML BAG IVPB SCH ×2 (10:53→21:13)
--- NOTE | 2018-08-29 11:29 | PN ---
Progress Note (short form) - Note Progress Note: awake and alert being changed +BM Vital Signs Period Temp Pulse Resp BP Sys/Vu Pulse Ox Last 24 Hr 98.7 F-100.1 F 76-89 20-20 111-121/65-70 95 cor-rrr lungs clear abd- distended, soft hull leaking midline iv not functioning ext no edema skin sacral ulcer, bilateral heel ulcers erythema noted left flank with fluctuance CBC, BMP 08/27/18 19:30 08/27/18 19:30 Microbiology 08/25/18 07:25 Blood - Peripheral Venous Blood Culture - Preliminary NO GROWTH OBTAINED AFTER 96 HOURS, INCUBATION TO CONTINUE FOR 1 DAYS. 08/25/18 07:30 Blood - Peripheral Venous Blood Culture - Preliminary NO GROWTH OBTAINED AFTER 96 HOURS, INCUBATION TO CONTINUE FOR 1 DAYS. 08/22/18 12:40 Blood - Peripheral Venous Blood Culture - Final NO GROWTH AFTER 5 DAYS INCUBATION 08/22/18 12:20 Blood - Peripheral Venous Blood Culture - Final NO GROWTH AFTER 5 DAYS INCUBATION 08/19/18 11:10 Blood - Peripheral Venous Blood Culture - Final NO GROWTH AFTER 5 DAYS INCUBATION 08/18/18 11:00 Blood - Peripheral Venous Blood Culture - Final NO GROWTH AFTER 5 DAYS INCUBATION 08/18/18 10:55 Blood - Peripheral Venous Blood Culture - Final NO GROWTH AFTER 5 DAYS INCUBATION 08/20/18 16:10 Urine - Urine Hull Urine Culture - Final Contaminated: Please Repeat 08/19/18 11:15 Blood - Peripheral Venous Blood Culture - Final S Aureus 08/17/18 17:39 Urine - Urine - Catheterized Urine Culture - Final Contaminated: Please Repeat a/p MRSA bacteremia ct scan with collection left flank d/w dr machuca will start linezolid with plans to resume vancomycin in am when iv access is available IR to drain flank collection repeat blood cultures today
[2018-08-29] MEDS: LINEZOLID 600 MG TABLET (RESTRICTED TO ID) PO SCH ×2 (14:54→22:56)
[2018-08-29] MEDS: ACETAMINOPHEN 325 MG TABLET (FP) PO PRN (14:54)
[2018-08-29] MEDS: SENNOSIDES 8.6MG TABLET (FP) PO SCH (21:13)
[2018-08-29] MEDS ORDERED: PT OWN MED DRAWER 7, Y5N ONE (23:48)
--- NOTE | 2018-08-30 09:01 | HOSP ---
Subjective - Review of Symptoms Genitourinary: Yes: Other (hull) Musculoskeletal: Yes: Other (paraplegia) Neurological: Yes: Weakness Physical Examination Vital Signs: Vital Signs Temperature 99.1 F 08/30/18 05:44 Pulse Rate 80 08/30/18 05:44 Respiratory Rate 18 08/30/18 05:44 Blood Pressure 101/56 L 08/30/18 05:44 O2 Sat by Pulse Oximetry (%) 95 08/29/18 21:00 Constitutional: Yes: Calm Eyes: Yes: WNL HENT: Yes: Atraumatic Neck: Yes: WNL Cardiovascular: Yes: Regular Rate and Rhythm Respiratory: Yes: WNL Gastrointestinal: Yes: Distention ...Rectal Exam: Yes: Deferred Extremities: Yes: Other Wound/Incision: Yes: Draining, Reddened, Excoriated Neurological: Yes: Alert, Oriented Labs: CBC, BMP 08/27/18 19:30 08/27/18 19:30 Hospitalist Encounter Assessment: 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 House. Patient is a 53 year old male with paraplegia now with left flank redness and collection. now with a small circular open wound on left flank which has opened and draining brown pus and sero sang. drainage with odor. skin on left flank is reddened and warm to touch and redness extends to left anterior abdomen. wound has been cultured this morning. awaiting a.m. labs. added blood cultures. with RN, I cleansed the site with sterile saline and added sterile abd for collection of fluid vitals are stable. called dr. burnham's office and informed them of open wound and drainage will call ID and inform them as well symphony clinical liaison celso crawford psych np [phone]
[2018-08-30 10:17] LABS: HEMATOCRIT 24.9 % (35.4-49); MCH 24.3 pg (25.7-33.7); MCHC 32.1 g/dl (32.0-35.9); MEAN CELL VOLUME 75.5 fl (80-96); MEAN PLT VOLUME 7.3 fl (7.5-11.1); WHITE BLOOD COUNT 11.8 K/mm3 (4.0-10.0)
[2018-08-30 10:20] LABS: PLATELET COUNT 338 K/MM3 (134-434)
[2018-08-30 10:34] LABS: ALBUMIN 1.7 g/dl (3.4-5.0); BILIRUBIN,TOTAL 0.3 mg/dL (0.2-1); BLOOD UREA NITROGEN 21.5 mg/dL (7-18); CALCIUM 8.1 mg/dL (8.5-10.1); CREATININE 1.1 mg/dL (0.55-1.3); POTASSIUM 3.8 mmol/L (3.5-5.1); TOT PROT 6.3 g/dl (6.4-8.2)
[2018-08-30] MEDS: MULTIVITAMINS (DAILY MVI) TABLET (FP) PO SCH (11:13)
[2018-08-30] MEDS: LINEZOLID 600 MG TABLET (RESTRICTED TO ID) PO SCH (11:13)
--- NOTE | 2018-08-30 11:15 | PN ---
Progress Note, Physician Chief Complaint: Paraplegia B/L Hydronephrosis MDRO Leukocytosis History of Present Illness: Previous notes and events reviewed awake and alert NAD no complaints of chest pain or SOB patient was pending IR drainage of L flank fluid collection, this morning abscess to L flank began draining copious amounts of brown purulent fluid medline leaking pending surgery recommendations for re-insertion - Current Medication List Current Medications: Active Medications Acetaminophen (Tylenol -) 650 mg PO Q6H PRN PRN Reason: FEVER OR PAIN LEVEL 1-5 Last Admin: 08/29/18 14:54 Dose: 650 mg Collagenase (Santyl -) 1 applic TP DAILY [facility]; Protocol Last Admin: 08/29/18 10:53 Dose: Not Given Docusate Sodium (Colace -) 100 mg PO BID [facility] Last Admin: 08/29/18 21:12 Dose: Not Given Vancomycin HCl (Vancomycin (Pre-Docked)) 1,000 mg in 250 mls @ 166.667 mls/hr IVPB BID [facility]; Protocol Last Admin: 08/29/18 21:13 Dose: Not Given Sodium Chloride (Normal Saline -) 1,000 mls @ 75 mls/hr IV [facility]IR [facility] Last Admin: 08/29/18 21:13 Dose: Not Given Sodium Chloride (Normal Saline -) 1,000 mls @ 75 mls/hr IV [facility]IR [facility] Last Admin: 08/29/18 10:52 Dose: Not Given Ibuprofen (Caldolor Injection -) 400 mg IVPB Q8H PRN PRN Reason: FEVER Last Admin: 08/26/18 23:05 Dose: 400 mg Linezolid (Zyvox (Restricted To Id) -) 600 mg PO BID [facility] Last Admin: 08/29/18 22:56 Dose: 600 mg Magnesium Hydroxide (Milk Of Magnesia -) 30 ml PO DAILY PRN PRN Reason: CONSTIPATION Last Admin: 08/28/18 23:54 Dose: 30 ml Multivitamins/Minerals/Vitamin C (Tab-A-Vit -) 1 tab PO DAILY [facility] Last Admin: 08/29/18 10:39 Dose: 1 tab Ranitidine HCl (Zantac -) 150 mg PO DAILY [facility] Last Admin: 08/29/18 10:39 Dose: 150 mg Senna (Senna -) 2 tab PO HS [facility] Last Admin: 08/29/18 21:13 Dose: Not Given Simethicone (Mylicon -) 80 mg PO Q4H PRN PRN Reason: GAS Last Admin: 08/28/18 23:54 Dose: 80 mg - Objective Vital Signs: Vital Signs Temperature 99.1 F 08/30/18 05:44 Pulse Rate 80 08/30/18 05:44 Respiratory Rate 18 08/30/18 05:44 Blood Pressure 101/56 L 08/30/18 05:44 O2 Sat by Pulse Oximetry (%) 95 08/29/18 21:00 Constitutional: Yes: No Distress, Calm Eyes: Yes: Conjunctiva Clear HENT: Yes: Atraumatic Cardiovascular: Yes: Regular Rate and Rhythm Respiratory: Yes: Regular, CTA Bilaterally Gastrointestinal: Yes: Normal Bowel Sounds, Soft, Distention Genitourinary: Yes: Pelaez Present Musculoskeletal: Yes: Muscle Weakness Extremities: Yes: WNL Edema: No Integumentary: Yes: Erythema (L flank extend to L groin), Other (dressing to L flank) Wound/Incision: Yes: Other Neurological: Yes: Alert, Pre-Existing Deficit Psychiatric: Yes: Alert Labs: CBC, BMP 08/30/18 09:45 08/30/18 09:45 Microbiology 08/25/18 07:25 Blood Culture - Final Blood - Peripheral Venous NO GROWTH AFTER 5 DAYS INCUBATION 08/25/18 07:30 Blood Culture - Final Blood - Peripheral Venous NO GROWTH AFTER 5 DAYS INCUBATION Problem List - Problems (1) Systolic murmur Assessment/Plan: -LVEF is normal -Echocardiogram EF is normal Code(s): R01.1 - CARDIAC MURMUR, UNSPECIFIED (2) Bilateral hydronephrosis Assessment/Plan: -Urology consult -Renal US shows large exophytic right renal cyst 8.2 x 7.5cm, right renal stones without gross evidence of hydronephrosis, multiple left renal stones with moderate to marked hydronephrosis -s/p cystoscopy and stent replacement Code(s): N13.30 - UNSPECIFIED HYDRONEPHROSIS (3) Chronic indwelling Pelaez catheter Assessment/Plan: -Urology on board - care Code(s): Z92.89 - PERSONAL HISTORY OF OTHER MEDICAL TREATMENT (4) Leukocytosis Assessment/Plan: -WBC 11.8 -ID on board -Linezolid PO ABT -BC x 1 show MRSA, repeat BC negative Code(s): D72.829 - ELEVATED WHITE BLOOD CELL COUNT, UNSPECIFIED (5) MDRO (multiple drug resistant organisms) resistance Assessment/Plan: -contact precaution -ID on board Code(s): Z16.35 - RESISTANCE TO MULTIPLE ANTIMICROBIAL DRUGS (6) UTI (urinary tract infection) Assessment/Plan: -WBC 11.8 -ID on board -Linezolid PO -tylenol prn for temp >100F Code(s): N39.0 - URINARY TRACT INFECTION, SITE NOT SPECIFIED Qualifiers: Urinary tract infection type: site unspecified Hematuria presence: without hematuria Qualified Code(s): N39.0 - Urinary tract infection, site not specified (7) Constipation Assessment/Plan: -FUA shows distal fecal impaction -Colace and Senna Code(s): K59.00 - CONSTIPATION, UNSPECIFIED Qualifiers: Constipation type: unspecified constipation type Qualified Code(s): K59.00 - Constipation, unspecified (8) Abscess of flank Assessment/Plan: -Wound culture sent -re-consult ID -IR consult -CT scan abdomen and pelvis -change dressing daily and as needed Code(s): L02.211 - CUTANEOUS ABSCESS OF ABDOMINAL WALL Assessment/Plan see problem list dvt ppx
[2018-08-30] MEDS: SODIUM CHLORIDE 1,000 ML IV SCH ×2 (11:20→21:40)
[2018-08-30] MEDS: DOCUSATE SODIUM 100 MG CAPSULE (FP) PO SCH ×2 (11:21→21:40)
[2018-08-30] MEDS: RANITIDINE HCL 150 MG TABLET (FP) PO SCH (11:21)
[2018-08-30] MEDS: VANCOMYCIN 1 GRAM (PRE-DOCKED) 1,000 MG/250 ML BAG IVPB SCH ×2 (11:21→21:40)
[2018-08-30] MEDS: COLLAGENASE CLOSTRIDIUM HIST. 30 GRAMS TUBE TP SCH (11:21)
--- NOTE | 2018-08-30 16:27 | PN ---
Progress Note, Physician History of Present Illness: CHRONIC L FLANK FLUID COLLECTION SPONTANEOUSLY DRAINED. PURULENT FLUID ON DRESSING AWAKE, ALERT AFEBRILE - Current Medication List Current Medications: Active Medications Acetaminophen (Tylenol -) 650 mg PO Q6H PRN PRN Reason: FEVER OR PAIN LEVEL 1-5 Last Admin: 08/29/18 14:54 Dose: 650 mg Collagenase (Santyl -) 1 applic TP DAILY [facility]; Protocol Last Admin: 08/30/18 11:21 Dose: Not Given Docusate Sodium (Colace -) 100 mg PO BID [facility] Last Admin: 08/30/18 11:21 Dose: Not Given Heparin Sodium (Porcine) (Heparin -) 5,000 unit SQ BID [facility] Vancomycin HCl (Vancomycin (Pre-Docked)) 1,000 mg in 250 mls @ 166.667 mls/hr IVPB BID [facility]; Protocol Last Admin: 08/30/18 11:21 Dose: Not Given Sodium Chloride (Normal Saline -) 1,000 mls @ 75 mls/hr IV ASDIR [facility] Last Admin: 08/29/18 21:13 Dose: Not Given Sodium Chloride (Normal Saline -) 1,000 mls @ 75 mls/hr IV ASDIR [facility] Last Admin: 08/30/18 11:20 Dose: Not Given Ibuprofen (Caldolor Injection -) 400 mg IVPB Q8H PRN PRN Reason: FEVER Last Admin: 08/26/18 23:05 Dose: 400 mg Linezolid (Zyvox (Restricted To Id) -) 600 mg PO BID [facility] Last Admin: 08/30/18 11:13 Dose: 600 mg Magnesium Hydroxide (Milk Of Magnesia -) 30 ml PO DAILY PRN PRN Reason: CONSTIPATION Last Admin: 08/28/18 23:54 Dose: 30 ml Multivitamins/Minerals/Vitamin C (Tab-A-Vit -) 1 tab PO DAILY [facility] Last Admin: 08/30/18 11:13 Dose: 1 tab Ranitidine HCl (Zantac -) 150 mg PO DAILY [facility] Last Admin: 08/30/18 11:21 Dose: Not Given Senna (Senna -) 2 tab PO HS [facility] Last Admin: 08/29/18 21:13 Dose: Not Given Simethicone (Mylicon -) 80 mg PO Q4H PRN PRN Reason: GAS Last Admin: 08/28/18 23:54 Dose: 80 mg - Objective Vital Signs: Vital Signs Temperature 98.0 F 08/30/18 13:45 Pulse Rate 77 08/30/18 13:45 Respiratory Rate 18 08/30/18 13:45 Blood Pressure 114/69 08/30/18 13:45 O2 Sat by Pulse Oximetry (%) 96 08/30/18 13:00 Constitutional: Yes: No Distress Cardiovascular: Yes: Regular Rate and Rhythm, S1, S2 Respiratory: Yes: CTA Bilaterally Gastrointestinal: Yes: Normal Bowel Sounds, Soft Musculoskeletal: Yes: Other (SWELLING L FLANK; + PURULENT DRAINAGE) Labs: CBC, BMP 08/30/18 09:45 08/30/18 09:45 Assessment/Plan +BC MRSA CHRONIC L FLANK COLLECTION WITH SPONTANEOUS PURULENT DRAINAGE NEUROGENIC BLADDER/ INDWELLING PINZON CONTINUE VANCOMYCIN FOR DRAINAGE CATHETER INSERTION IN IR TODAY
[2018-08-30] MEDS: SENNOSIDES 8.6MG TABLET (FP) PO SCH (21:40)
[2018-08-30] MEDS: HEPARIN NA (PORCINE) 5,000 UNITS/ML 1ML VIAL SQ SCH (21:40)
[2018-08-31 07:20] LABS: HEMATOCRIT 26.1 % (35.4-49); HEMOGLOBIN 8.3 GM/dL (11.7-16.9); MCH 24.3 pg (25.7-33.7); MCHC 31.7 g/dl (32.0-35.9); MEAN CELL VOLUME 76.8 fl (80-96); MEAN PLT VOLUME 7.3 fl (7.5-11.1); PLATELET COUNT 370 K/MM3 (134-434); RBC 3.41 M/mm3 (4.00-5.60); RDW 17.4 % (11.9-15.9); WHITE BLOOD COUNT 7.5 K/mm3 (4.0-10.0)
[2018-08-31 07:49] LABS: ALBUMIN 1.7 g/dl (3.4-5.0); BILIRUBIN,TOTAL 0.2 mg/dL (0.2-1); BLOOD UREA NITROGEN 25.4 mg/dL (7-18); CALCIUM 8.4 mg/dL (8.5-10.1); POTASSIUM 4.7 mmol/L (3.5-5.1); TOT PROT 6.6 g/dl (6.4-8.2)
--- NOTE | 2018-08-31 09:29 | PN ---
Progress Note, Physician - Current Medication List Current Medications: Active Medications Acetaminophen (Tylenol -) 650 mg PO Q6H PRN PRN Reason: FEVER OR PAIN LEVEL 1-5 Last Admin: 08/29/18 14:54 Dose: 650 mg Collagenase (Santyl -) 1 applic TP DAILY [facility]; Protocol Last Admin: 08/30/18 11:21 Dose: Not Given Docusate Sodium (Colace -) 100 mg PO BID [facility] Last Admin: 08/30/18 21:40 Dose: Not Given Heparin Sodium (Porcine) (Heparin -) 5,000 unit SQ BID [facility] Last Admin: 08/30/18 21:40 Dose: Not Given Vancomycin HCl (Vancomycin (Pre-Docked)) 1,000 mg in 250 mls @ 166.667 mls/hr IVPB BID [facility]; Protocol Last Admin: 08/30/18 21:40 Dose: 166.667 mls/hr Sodium Chloride (Normal Saline -) 1,000 mls @ 75 mls/hr IV ASDIR [facility] Last Admin: 08/30/18 21:40 Dose: Not Given Sodium Chloride (Normal Saline -) 1,000 mls @ 75 mls/hr IV ASDIR [facility] Last Admin: 08/30/18 11:20 Dose: Not Given Ibuprofen (Caldolor Injection -) 400 mg IVPB Q8H PRN PRN Reason: FEVER Last Admin: 08/26/18 23:05 Dose: 400 mg Magnesium Hydroxide (Milk Of Magnesia -) 30 ml PO DAILY PRN PRN Reason: CONSTIPATION Last Admin: 08/28/18 23:54 Dose: 30 ml Multivitamins/Minerals/Vitamin C (Tab-A-Vit -) 1 tab PO DAILY [facility] Last Admin: 08/30/18 11:13 Dose: 1 tab Ranitidine HCl (Zantac -) 150 mg PO DAILY [facility] Last Admin: 08/30/18 11:21 Dose: Not Given Senna (Senna -) 2 tab PO HS [facility] Last Admin: 08/30/18 21:40 Dose: Not Given Simethicone (Mylicon -) 80 mg PO Q4H PRN PRN Reason: GAS Last Admin: 08/28/18 23:54 Dose: 80 mg - Objective Vital Signs: Vital Signs Temperature 97.8 F 08/31/18 06:00 Pulse Rate 73 08/31/18 06:00 Respiratory Rate 18 08/31/18 06:00 Blood Pressure 119/70 08/31/18 06:00 O2 Sat by Pulse Oximetry (%) 96 08/30/18 21:00 Cardiovascular: Yes: Regular Rate and Rhythm Respiratory: Yes: Regular, CTA Bilaterally Gastrointestinal: Yes: Normal Bowel Sounds, Soft. No: Tenderness Extremities: Yes: Other (erythema swelling of hip with drainage) Labs: CBC, BMP 08/31/18 06:10 08/31/18 06:10 Assessment/Plan - Problems (1) Systolic murmur Assessment/Plan: -LVEF is normal -Echocardiogram EF is normal Code(s): R01.1 - CARDIAC MURMUR, UNSPECIFIED (2) Bilateral hydronephrosis Assessment/Plan: -Urology consult -Renal US shows large exophytic right renal cyst 8.2 x 7.5cm, right renal stones without gross evidence of hydronephrosis, multiple left renal stones with moderate to marked hydronephrosis -s/p cystoscopy and stent replacement Code(s): N13.30 - UNSPECIFIED HYDRONEPHROSIS (3) Chronic indwelling Pelaez catheter Assessment/Plan: -Urology on board - care Code(s): Z92.89 - PERSONAL HISTORY OF OTHER MEDICAL TREATMENT (4) Leukocytosis Assessment/Plan: -WBC 11.8 -ID on board -Linezolid PO ABT -BC x 1 show MRSA, repeat BC negative Code(s): D72.829 - ELEVATED WHITE BLOOD CELL COUNT, UNSPECIFIED (5) MDRO (multiple drug resistant organisms) resistance Assessment/Plan: -contact precaution -ID on board Code(s): Z16.35 - RESISTANCE TO MULTIPLE ANTIMICROBIAL DRUGS (6) UTI (urinary tract infection) Assessment/Plan: -WBC 11.8 -ID on board -Linezolid PO -tylenol prn for temp >100F Code(s): N39.0 - URINARY TRACT INFECTION, SITE NOT SPECIFIED Qualifiers: Urinary tract infection type: site unspecified Hematuria presence: without hematuria Qualified Code(s): N39.0 - Urinary tract infection, site not specified (7) Constipation Assessment/Plan: -FUA shows distal fecal impaction -Colace and Senna Code(s): K59.00 - CONSTIPATION, UNSPECIFIED Qualifiers: Constipation type: unspecified constipation type Qualified Code(s): K59.00 - Constipation, unspecified (8) Abscess of flank Assessment/Plan: -Wound culture sent -re-consult ID-noted -Add zosyn -IR consult -CT scan abdomen and pelvis -change dressing daily and as needed -Surgical consult Code(s): L02.211 - CUTANEOUS ABSCESS OF ABDOMINAL WALL
[2018-08-31] MEDS: HEPARIN NA (PORCINE) 5,000 UNITS/ML 1ML VIAL SQ SCH ×2 (10:16→21:54)
[2018-08-31] MEDS: MULTIVITAMINS (DAILY MVI) TABLET (FP) PO SCH (10:16)
[2018-08-31] MEDS: SODIUM CHLORIDE 1,000 ML IV SCH ×3 (11:09→21:51)
[2018-08-31] MEDS: COLLAGENASE CLOSTRIDIUM HIST. 30 GRAMS TUBE TP SCH (11:09)
[2018-08-31] MEDS: DOCUSATE SODIUM 100 MG CAPSULE (FP) PO SCH ×2 (11:09→21:51)
[2018-08-31] MEDS: RANITIDINE HCL 150 MG TABLET (FP) PO SCH (11:09)
[2018-08-31] MEDS ORDERED: PIPERACILLIN/TAZOBACTAM 3.375 GM VIAL IVPB ONE ×3 (11:10→23:59)
[2018-08-31] MEDS ORDERED: DEXTROSE 5%-WATER - 50 ML IVPB ONE ×2 (11:10→16:51)
[2018-08-31] MEDS: PIPERACILLIN/TAZOB 3.375 GM 3.375 GM in DEXTROSE 5%-WATER - 50 ML IVPB SCH ×2 (11:20→17:29)
[2018-08-31] MEDS: VANCOMYCIN 1 GRAM (PRE-DOCKED) 1,000 MG/250 ML BAG IVPB SCH ×2 (12:10→21:51)
--- NOTE | 2018-08-31 13:00 | PN ---
Progress Note, Physician History of Present Illness: AWAKE, ALERT IN BED CHRONIC L FLANK FLUID COLLECTION SPONTANEOUSLY DRAINED. CONTINUES TO DRAIN SEROPURULENT FLUID. AWAKE, ALERT AFEBRILE WBC WNL FLUID C/S MIXED STAPH SP, NLF - Current Medication List Current Medications: Active Medications Acetaminophen (Tylenol -) 650 mg PO Q6H PRN PRN Reason: FEVER OR PAIN LEVEL 1-5 Last Admin: 08/29/18 14:54 Dose: 650 mg Collagenase (Santyl -) 1 applic TP DAILY [facility]; Protocol Last Admin: 08/31/18 11:09 Dose: Not Given Docusate Sodium (Colace -) 100 mg PO BID [facility] Last Admin: 08/31/18 11:09 Dose: Not Given Heparin Sodium (Porcine) (Heparin -) 5,000 unit SQ BID [facility] Last Admin: 08/31/18 10:16 Dose: 5,000 unit Vancomycin HCl (Vancomycin (Pre-Docked)) 1,000 mg in 250 mls @ 166.667 mls/hr IVPB BID [facility]; Protocol Last Admin: 08/31/18 12:10 Dose: 166.667 mls/hr Sodium Chloride (Normal Saline -) 1,000 mls @ 75 mls/hr IV ASDIR [facility] Last Admin: 08/30/18 21:40 Dose: Not Given Sodium Chloride (Normal Saline -) 1,000 mls @ 75 mls/hr IV ASDIR [facility] Last Admin: 08/31/18 11:09 Dose: Not Given Piperacillin Sod/Tazobactam (Sod 3.375 gm/ Dextrose) 50 mls @ 100 mls/hr IVPB Q8H-IV [facility]; Protocol Piperacillin Sod/Tazobactam (Sod 3.375 gm/ Dextrose) 50 mls @ 100 mls/hr IVPB Q8H-IV [facility] Stop: 09/01/18 10:29 Last Admin: 08/31/18 11:20 Dose: 100 mls/hr Ibuprofen (Caldolor Injection -) 400 mg IVPB Q8H PRN PRN Reason: FEVER Last Admin: 08/26/18 23:05 Dose: 400 mg Magnesium Hydroxide (Milk Of Magnesia -) 30 ml PO DAILY PRN PRN Reason: CONSTIPATION Last Admin: 08/28/18 23:54 Dose: 30 ml Multivitamins/Minerals/Vitamin C (Tab-A-Vit -) 1 tab PO DAILY [facility] Last Admin: 08/31/18 10:16 Dose: 1 tab Ranitidine HCl (Zantac -) 150 mg PO DAILY [facility] Last Admin: 08/31/18 11:09 Dose: Not Given Senna (Senna -) 2 tab PO HS [facility] Last Admin: 08/30/18 21:40 Dose: Not Given Simethicone (Mylicon -) 80 mg PO Q4H PRN PRN Reason: GAS Last Admin: 08/28/18 23:54 Dose: 80 mg - Objective Vital Signs: Vital Signs Temperature 97.7 F 08/31/18 10:00 Pulse Rate 81 08/31/18 10:00 Respiratory Rate 20 08/31/18 10:00 Blood Pressure 105/61 08/31/18 10:00 O2 Sat by Pulse Oximetry (%) 96 08/30/18 21:00 Constitutional: Yes: No Distress Cardiovascular: Yes: Regular Rate and Rhythm, S1, S2 Respiratory: Yes: CTA Bilaterally Gastrointestinal: Yes: Normal Bowel Sounds, Soft, Other (+ ABDOMEN DISTENDED). No: Tenderness Edema: No Integumentary: Yes: Other (L FLANK WITH DRAINAGE FROM SINUS) Labs: CBC, BMP 08/31/18 06:10 08/31/18 06:10 Assessment/Plan +BC MRSA CHRONIC L FLANK COLLECTION WITH SPONTANEOUS PURULENT DRAINAGE NEUROGENIC BLADDER/ INDWELLING PINZON CONTINUE VANCOMYCIN ADD ERTAPENEM PENDING C/S
[2018-08-31 13:13] LABS: CA OXALATE MONOHYDR. 10 % (.); CALCIUM PHOSPHATE 80 % (.); WEIGHT 243.9 mg (.)
[2018-08-31] MEDS: ERTAPENEM SODIUM 1 GM in SODIUM CHLORIDE 50 ML IVPB SCH (15:30)
[2018-08-31] MEDS: SENNOSIDES 8.6MG TABLET (FP) PO SCH (21:51)
[2018-09-01] MEDS: PIPERACILLIN/TAZOB 3.375 GM 3.375 GM in DEXTROSE 5%-WATER - 50 ML IVPB SCH ×2 (01:42→09:51)
[2018-09-01 08:56] LABS: BASO % 1.4 % (0-2.0); EOS % 4.6 % (0-4.5); HEMATOCRIT 26.8 % (35.4-49); HEMOGLOBIN 8.5 GM/dL (11.7-16.9); MCHC 31.6 g/dl (32.0-35.9); MEAN PLT VOLUME 7.4 fl (7.5-11.1); MONO % 8.4 % (3.8-10.2); NEUT % 72.6 % (42.8-82.8); PLATELET COUNT 346 K/MM3 (134-434); RBC 3.53 M/mm3 (4.00-5.60); RDW 17.4 % (11.9-15.9); WHITE BLOOD COUNT 4.4 K/mm3 (4.0-10.0)
[2018-09-01 09:26] LABS: ALBUMIN 1.8 g/dl (3.4-5.0); BILIRUBIN,TOTAL 0.2 mg/dL (0.2-1); BLOOD UREA NITROGEN 19.2 mg/dL (7-18); CALCIUM 8.1 mg/dL (8.5-10.1); CREATININE 0.8 mg/dL (0.55-1.3); POTASSIUM 4.4 mmol/L (3.5-5.1)
[2018-09-01] MEDS: ERTAPENEM SODIUM 1 GM in SODIUM CHLORIDE 50 ML IVPB SCH (09:42)
[2018-09-01] MEDS: VANCOMYCIN 1 GRAM (PRE-DOCKED) 1,000 MG/250 ML BAG IVPB SCH (09:42)
[2018-09-01] MEDS: HEPARIN NA (PORCINE) 5,000 UNITS/ML 1ML VIAL SQ SCH ×2 (09:43→23:21)
[2018-09-01] MEDS: COLLAGENASE CLOSTRIDIUM HIST. 30 GRAMS TUBE TP SCH (09:43)
[2018-09-01] MEDS: MULTIVITAMINS (DAILY MVI) TABLET (FP) PO SCH (09:43)
[2018-09-01] MEDS: DOCUSATE SODIUM 100 MG CAPSULE (FP) PO SCH ×2 (09:44→23:21)
[2018-09-01] MEDS: RANITIDINE HCL 150 MG TABLET (FP) PO SCH (09:44)
[2018-09-01] MEDS ORDERED: PIPERACILLIN/TAZOBACTAM 3.375 GM VIAL IVPB ONE (09:47)
[2018-09-01] MEDS ORDERED: DEXTROSE 5%-WATER - 50 ML IVPB ONE ×2 (09:47)
[2018-09-01] MEDS: MAGNESIUM HYDROX 2400MG/30ML ORAL SUSPENSION 30 ML CUP PO PRN (09:51)
[2018-09-01] MEDS ORDERED: PIPERACILLIN/TAZOB 3.375 GM 3.375 GM in DEXTROSE 5%-WATER - 50 ML IVPB SCH (10:00)
[2018-09-01] MEDS: SIMETHICONE 80 MG TAB.CHEW (FP) PO PRN (10:50)
--- NOTE | 2018-09-01 12:32 | PN ---
Progress Note, Physician - Current Medication List Current Medications: Active Medications Acetaminophen (Tylenol -) 650 mg PO Q6H PRN PRN Reason: FEVER OR PAIN LEVEL 1-5 Last Admin: 08/29/18 14:54 Dose: 650 mg Collagenase (Santyl -) 1 applic TP DAILY [facility]; Protocol Last Admin: 09/01/18 09:43 Dose: Not Given Docusate Sodium (Colace -) 100 mg PO BID [facility] Last Admin: 09/01/18 09:44 Dose: Not Given Heparin Sodium (Porcine) (Heparin -) 5,000 unit SQ BID [facility] Last Admin: 09/01/18 09:43 Dose: 5,000 unit Vancomycin HCl (Vancomycin (Pre-Docked)) 1,000 mg in 250 mls @ 166.667 mls/hr IVPB BID [facility]; Protocol Last Admin: 09/01/18 09:42 Dose: 166.667 mls/hr Sodium Chloride (Normal Saline -) 1,000 mls @ 75 mls/hr IV ASDIR [facility] Last Admin: 08/31/18 21:51 Dose: Not Given Sodium Chloride (Normal Saline -) 1,000 mls @ 75 mls/hr IV ASDIR [facility] Last Admin: 08/31/18 17:07 Dose: 75 mls/hr Ertapenem 1 gm/ Sodium (Chloride) 50 mls @ 100 mls/hr IVPB DAILY [facility] Last Admin: 09/01/18 09:42 Dose: 100 mls/hr Ibuprofen (Caldolor Injection -) 400 mg IVPB Q8H PRN PRN Reason: FEVER Last Admin: 08/26/18 23:05 Dose: 400 mg Magnesium Hydroxide (Milk Of Magnesia -) 30 ml PO DAILY PRN PRN Reason: CONSTIPATION Last Admin: 09/01/18 09:51 Dose: 30 ml Multivitamins/Minerals/Vitamin C (Tab-A-Vit -) 1 tab PO DAILY [facility] Last Admin: 09/01/18 09:43 Dose: 1 tab Ranitidine HCl (Zantac -) 150 mg PO DAILY [facility] Last Admin: 09/01/18 09:44 Dose: 150 mg Senna (Senna -) 2 tab PO HS [facility] Last Admin: 08/31/18 21:51 Dose: Not Given Simethicone (Mylicon -) 80 mg PO Q4H PRN PRN Reason: GAS Last Admin: 09/01/18 10:50 Dose: 80 mg - Objective Vital Signs: Vital Signs Temperature 97.8 F 09/01/18 06:00 Pulse Rate 73 09/01/18 06:00 Respiratory Rate 18 09/01/18 06:00 Blood Pressure 102/63 09/01/18 06:00 O2 Sat by Pulse Oximetry (%) 96 08/31/18 21:00 Cardiovascular: Yes: Regular Rate and Rhythm Respiratory: Yes: Regular, CTA Bilaterally Gastrointestinal: Yes: Normal Bowel Sounds, Soft Wound/Incision: Yes: Dressing Removed, Draining, Reddened Labs: CBC, BMP 09/01/18 08:10 09/01/18 08:10 Assessment/Plan - Problems (1) Systolic murmur Assessment/Plan: -LVEF is normal -Echocardiogram EF is normal Code(s): R01.1 - CARDIAC MURMUR, UNSPECIFIED (2) Bilateral hydronephrosis Assessment/Plan: -Urology consult -Renal US shows large exophytic right renal cyst 8.2 x 7.5cm, right renal stones without gross evidence of hydronephrosis, multiple left renal stones with moderate to marked hydronephrosis -s/p cystoscopy and stent replacement Code(s): N13.30 - UNSPECIFIED HYDRONEPHROSIS (3) Chronic indwelling Pelaez catheter Assessment/Plan: -Urology on board - care Code(s): Z92.89 - PERSONAL HISTORY OF OTHER MEDICAL TREATMENT (4) Leukocytosis Assessment/Plan: -WBC 11.8 -ID on board -Linezolid PO ABT -BC x 1 show MRSA, repeat BC negative Code(s): D72.829 - ELEVATED WHITE BLOOD CELL COUNT, UNSPECIFIED (5) MDRO (multiple drug resistant organisms) resistance Assessment/Plan: -contact precaution -ID on board Code(s): Z16.35 - RESISTANCE TO MULTIPLE ANTIMICROBIAL DRUGS (6) UTI (urinary tract infection) Assessment/Plan: -WBC 11.8 -ID on board -Linezolid PO -tylenol prn for temp >100F Code(s): N39.0 - URINARY TRACT INFECTION, SITE NOT SPECIFIED Qualifiers: Urinary tract infection type: site unspecified Hematuria presence: without hematuria Qualified Code(s): N39.0 - Urinary tract infection, site not specified (7) Constipation Assessment/Plan: -FUA shows distal fecal impaction -Colace and Senna Code(s): K59.00 - CONSTIPATION, UNSPECIFIED Qualifiers: Constipation type: unspecified constipation type Qualified Code(s): K59.00 - Constipation, unspecified (8) Abscess of flank Assessment/Plan: -Wound culture sent -re-consult ID-noted -Add zosyn -IR consult -CT scan abdomen and pelvis -change dressing daily and as needed -Surgical consult Code(s): L02.211 - CUTANEOUS ABSCESS OF ABDOMINAL WALL
--- NOTE | 2018-09-01 13:51 | PN ---
Progress Note (short form) - Note Progress Note: UROLOGY NOTE. pt. with hull to drainage bag, patent, abd.-soft, n/t .presently with lt. flank draining sinus/fistula. will need ir for poss. perce.
[2018-09-01] MEDS: SODIUM CHLORIDE 1,000 ML IV SCH ×2 (23:22)
[2018-09-01] MEDS: SENNOSIDES 8.6MG TABLET (FP) PO SCH (23:22)
[2018-09-02] MEDS: VANCOMYCIN 1 GRAM (PRE-DOCKED) 1,000 MG/250 ML BAG IVPB SCH ×2 (00:45→10:52)
--- NOTE | 2018-09-02 09:19 | PN ---
Progress Note (short form) - Note Progress Note: Asked to obtain peripheral IV access in this patient. 3 attempts with a 22g were unsuccessful. The patient would not allow me to attempt placement in his left wrist where he had a visible vein. After the 3rd attempt he asked me to stop. I would recommend central acces.
[2018-09-02] MEDS: HEPARIN NA (PORCINE) 5,000 UNITS/ML 1ML VIAL SQ SCH ×2 (10:18→22:12)
[2018-09-02] MEDS: MULTIVITAMINS (DAILY MVI) TABLET (FP) PO SCH (10:18)
[2018-09-02] MEDS: RANITIDINE HCL 150 MG TABLET (FP) PO SCH (10:18)
[2018-09-02] MEDS: ERTAPENEM SODIUM 1 GM in SODIUM CHLORIDE 50 ML IVPB SCH (10:52)
[2018-09-02] MEDS: SODIUM CHLORIDE 1,000 ML IV SCH ×2 (10:52→22:13)
[2018-09-02] MEDS: COLLAGENASE CLOSTRIDIUM HIST. 30 GRAMS TUBE TP SCH (10:52)
[2018-09-02] MEDS: DOCUSATE SODIUM 100 MG CAPSULE (FP) PO SCH ×2 (10:52→22:12)
--- NOTE | 2018-09-02 15:29 | PN ---
Progress Note, Physician Chief Complaint: Paraplegia B/L Hydronephrosis MDRO Leukocytosis History of Present Illness: Previous notes and events reviewed awake and alert NAD no complaints of chest pain or SOB patient has no IV access and is refusing no have daly or central line placed. Patient will need termite technician ABT due to infection and is eligible for PICC line placement but does not want PICC placed day of discharge as requested by IR he would like it done now and patient is refusing ABT for 6 weeks - Current Medication List Current Medications: Active Medications Acetaminophen (Tylenol -) 650 mg PO Q6H PRN PRN Reason: FEVER OR PAIN LEVEL 1-5 Last Admin: 08/29/18 14:54 Dose: 650 mg Collagenase (Santyl -) 1 applic TP DAILY [facility]; Protocol Last Admin: 09/02/18 10:52 Dose: Not Given Docusate Sodium (Colace -) 100 mg PO BID [facility] Last Admin: 09/02/18 10:52 Dose: Not Given Heparin Sodium (Porcine) (Heparin -) 5,000 unit SQ BID [facility] Last Admin: 09/02/18 10:18 Dose: 5,000 unit Vancomycin HCl (Vancomycin (Pre-Docked)) 1,000 mg in 250 mls @ 166.667 mls/hr IVPB BID [facility]; Protocol Last Admin: 09/02/18 10:52 Dose: Not Given Sodium Chloride (Normal Saline -) 1,000 mls @ 75 mls/hr IV [facility] Last Admin: 09/01/18 23:22 Dose: Not Given Sodium Chloride (Normal Saline -) 1,000 mls @ 75 mls/hr IV [facility]IR [facility] Last Admin: 09/02/18 10:52 Dose: Not Given Ertapenem 1 gm/ Sodium (Chloride) 50 mls @ 100 mls/hr IVPB DAILY [facility] Last Admin: 09/02/18 10:52 Dose: Not Given Ibuprofen (Caldolor Injection -) 400 mg IVPB Q8H PRN PRN Reason: FEVER Last Admin: 08/26/18 23:05 Dose: 400 mg Magnesium Hydroxide (Milk Of Magnesia -) 30 ml PO DAILY PRN PRN Reason: CONSTIPATION Last Admin: 09/01/18 09:51 Dose: 30 ml Multivitamins/Minerals/Vitamin C (Tab-A-Vit -) 1 tab PO DAILY [facility] Last Admin: 09/02/18 10:18 Dose: 1 tab Ranitidine HCl (Zantac -) 150 mg PO DAILY [facility] Last Admin: 09/02/18 10:18 Dose: 150 mg Senna (Senna -) 2 tab PO HS [facility] Last Admin: 09/01/18 23:22 Dose: Not Given Simethicone (Mylicon -) 80 mg PO Q4H PRN PRN Reason: GAS Last Admin: 09/01/18 10:50 Dose: 80 mg - Objective Vital Signs: Vital Signs Temperature 98.0 F 09/02/18 14:07 Pulse Rate 74 09/02/18 14:07 Respiratory Rate 18 09/02/18 14:07 Blood Pressure 110/67 09/02/18 14:07 O2 Sat by Pulse Oximetry (%) 96 09/01/18 21:00 Constitutional: Yes: No Distress, Calm Eyes: Yes: Conjunctiva Clear HENT: Yes: Atraumatic Cardiovascular: Yes: Regular Rate and Rhythm Respiratory: Yes: Regular, CTA Bilaterally Gastrointestinal: Yes: Normal Bowel Sounds, Soft, Distention Genitourinary: Yes: Pelaez Present Musculoskeletal: Yes: Muscle Weakness Extremities: Yes: WNL Edema: Yes (pedal B/L ) Neurological: Yes: Alert, Oriented Psychiatric: Yes: Alert, Oriented Labs: CBC, BMP 09/01/18 08:10 09/01/18 08:10 Problem List - Problems (1) Systolic murmur Assessment/Plan: -LVEF is normal -Echocardiogram EF is normal Code(s): R01.1 - CARDIAC MURMUR, UNSPECIFIED (2) Bilateral hydronephrosis Assessment/Plan: -Urology consult -Renal US shows large exophytic right renal cyst 8.2 x 7.5cm, right renal stones without gross evidence of hydronephrosis, multiple left renal stones with moderate to marked hydronephrosis -s/p cystoscopy and stent replacement Code(s): N13.30 - UNSPECIFIED HYDRONEPHROSIS (3) Chronic indwelling Pelaez catheter Assessment/Plan: -Urology on board - care Code(s): Z92.89 - PERSONAL HISTORY OF OTHER MEDICAL TREATMENT (4) Leukocytosis Assessment/Plan: -resolved -ID on board -Linezolid PO ABT -BC x 1 show MRSA, repeat BC negative Code(s): D72.829 - ELEVATED WHITE BLOOD CELL COUNT, UNSPECIFIED (5) MDRO (multiple drug resistant organisms) resistance Assessment/Plan: -contact precaution -ID on board Code(s): Z16.35 - RESISTANCE TO MULTIPLE ANTIMICROBIAL DRUGS (6) UTI (urinary tract infection) Assessment/Plan: -no leukocytosis -ID on board -Linezolid PO -tylenol prn for temp >100F Code(s): N39.0 - URINARY TRACT INFECTION, SITE NOT SPECIFIED Qualifiers: Urinary tract infection type: site unspecified Hematuria presence: without hematuria Qualified Code(s): N39.0 - Urinary tract infection, site not specified (7) Constipation Assessment/Plan: -FUA shows distal fecal impaction -Colace and Senna Code(s): K59.00 - CONSTIPATION, UNSPECIFIED Qualifiers: Constipation type: unspecified constipation type Qualified Code(s): K59.00 - Constipation, unspecified (8) Abscess of flank Assessment/Plan: -Wound culture shows pseudomonas and mrsa -re-consult ID -IR consult -CT scan abdomen and pelvis -change dressing daily and as needed Code(s): L02.211 - CUTANEOUS ABSCESS OF ABDOMINAL WALL Assessment/Plan see problem list dvt ppx
--- NOTE | 2018-09-02 21:19 | PN ---
Progress Note, Physician History of Present Illness: AWAKE, ALERT IN BED NO IV ACCESS. REFUSING IV PLACEMENT/ IV ANTIBIOTICS AWAKE, ALERT AFEBRILE FLUID C/S MIXED MRSA, PSEUDOMONAS - Current Medication List Current Medications: Active Medications Acetaminophen (Tylenol -) 650 mg PO Q6H PRN PRN Reason: FEVER OR PAIN LEVEL 1-5 Last Admin: 08/29/18 14:54 Dose: 650 mg Collagenase (Santyl -) 1 applic TP DAILY [facility]; Protocol Last Admin: 09/02/18 10:52 Dose: Not Given Docusate Sodium (Colace -) 100 mg PO BID [facility] Last Admin: 09/02/18 10:52 Dose: Not Given Heparin Sodium (Porcine) (Heparin -) 5,000 unit SQ BID [facility] Last Admin: 09/02/18 10:18 Dose: 5,000 unit Sodium Chloride (Normal Saline -) 1,000 mls @ 75 mls/hr IV [facility] Last Admin: 09/01/18 23:22 Dose: Not Given Sodium Chloride (Normal Saline -) 1,000 mls @ 75 mls/hr IV [facility] Last Admin: 09/02/18 10:52 Dose: Not Given Ibuprofen (Caldolor Injection -) 400 mg IVPB Q8H PRN PRN Reason: FEVER Last Admin: 08/26/18 23:05 Dose: 400 mg Linezolid (Zyvox (Restricted To Id) -) 600 mg PO BID [facility] Magnesium Hydroxide (Milk Of Magnesia -) 30 ml PO DAILY PRN PRN Reason: CONSTIPATION Last Admin: 09/01/18 09:51 Dose: 30 ml Multivitamins/Minerals/Vitamin C (Tab-A-Vit -) 1 tab PO DAILY [facility] Last Admin: 09/02/18 10:18 Dose: 1 tab Ranitidine HCl (Zantac -) 150 mg PO DAILY [facility] Last Admin: 09/02/18 10:18 Dose: 150 mg Senna (Senna -) 2 tab PO HS [facility] Last Admin: 09/01/18 23:22 Dose: Not Given Simethicone (Mylicon -) 80 mg PO Q4H PRN PRN Reason: GAS Last Admin: 09/01/18 10:50 Dose: 80 mg - Objective Vital Signs: Vital Signs Temperature 98.1 F 09/02/18 17:33 Pulse Rate 80 09/02/18 17:33 Respiratory Rate 18 09/02/18 17:33 Blood Pressure 115/65 09/02/18 17:33 O2 Sat by Pulse Oximetry (%) 96 09/01/18 21:00 Constitutional: Yes: No Distress Cardiovascular: Yes: Regular Rate and Rhythm, S1, S2 Respiratory: Yes: CTA Bilaterally Gastrointestinal: Yes: Normal Bowel Sounds, Other (DISTENDED, NON TENDER) Edema: No Integumentary: Yes: Other (+ SEROUS DRAINAGE L FLANK) Labs: CBC, BMP 09/01/18 08:10 09/01/18 08:10 Assessment/Plan +BC MRSA CHRONIC L FLANK COLLECTION WITH SPONTANEOUS PURULENT DRAINAGE NEUROGENIC BLADDER/ INDWELLING PINZON REFUSING IV ANTIBIOTICS SUBSTITUTE PO ZYVOX DISCUSSED WITH PATIENT'S MOTHER AT BEDSIDE
[2018-09-02] MEDS: SENNOSIDES 8.6MG TABLET (FP) PO SCH (22:12)
[2018-09-02] MEDS: LINEZOLID 600 MG TABLET (RESTRICTED TO ID) PO SCH (22:13)
[2018-09-03 07:53] LABS: HEMATOCRIT 25.8 % (35.4-49); HEMOGLOBIN 8.2 GM/dL (11.7-16.9); MCH 24.1 pg (25.7-33.7); MCHC 31.8 g/dl (32.0-35.9); MEAN CELL VOLUME 75.6 fl (80-96); MEAN PLT VOLUME 7.1 fl (7.5-11.1); PLATELET COUNT 403 K/MM3 (134-434); RBC 3.41 M/mm3 (4.00-5.60); RDW 17.5 % (11.9-15.9); WHITE BLOOD COUNT 6.8 K/mm3 (4.0-10.0)
[2018-09-03 08:15] LABS: ALBUMIN 1.9 g/dl (3.4-5.0); BILIRUBIN,TOTAL 0.1 mg/dL (0.2-1); BLOOD UREA NITROGEN 18.8 mg/dL (7-18); CALCIUM 8.2 mg/dL (8.5-10.1); CREATININE 0.7 mg/dL (0.55-1.3); POTASSIUM 4.4 mmol/L (3.5-5.1); TOT PROT 6.6 g/dl (6.4-8.2)
--- NOTE | 2018-09-03 10:27 | PN ---
Progress Note, Physician Chief Complaint: patient wants to be seen for his wound on his upper leg - Current Medication List Current Medications: Active Medications Acetaminophen (Tylenol -) 650 mg PO Q6H PRN PRN Reason: FEVER OR PAIN LEVEL 1-5 Last Admin: 08/29/18 14:54 Dose: 650 mg Collagenase (Santyl -) 1 applic TP DAILY [facility]; Protocol Last Admin: 09/02/18 10:52 Dose: Not Given Docusate Sodium (Colace -) 100 mg PO BID [facility] Last Admin: 09/02/18 22:12 Dose: Not Given Heparin Sodium (Porcine) (Heparin -) 5,000 unit SQ BID [facility] Last Admin: 09/02/18 22:12 Dose: 5,000 unit Sodium Chloride (Normal Saline -) 1,000 mls @ 75 mls/hr IV ASDIR [facility] Last Admin: 09/02/18 22:13 Dose: Not Given Sodium Chloride (Normal Saline -) 1,000 mls @ 75 mls/hr IV ASDIR [facility] Last Admin: 09/02/18 10:52 Dose: Not Given Ibuprofen (Caldolor Injection -) 400 mg IVPB Q8H PRN PRN Reason: FEVER Last Admin: 08/26/18 23:05 Dose: 400 mg Linezolid (Zyvox (Restricted To Id) -) 600 mg PO BID [facility] Last Admin: 09/02/18 22:13 Dose: 600 mg Magnesium Hydroxide (Milk Of Magnesia -) 30 ml PO DAILY PRN PRN Reason: CONSTIPATION Last Admin: 09/01/18 09:51 Dose: 30 ml Multivitamins/Minerals/Vitamin C (Tab-A-Vit -) 1 tab PO DAILY [facility] Last Admin: 09/02/18 10:18 Dose: 1 tab Ranitidine HCl (Zantac -) 150 mg PO DAILY [facility] Last Admin: 09/02/18 10:18 Dose: 150 mg Senna (Senna -) 2 tab PO HS [facility] Last Admin: 09/02/18 22:12 Dose: 2 tab Simethicone (Mylicon -) 80 mg PO Q4H PRN PRN Reason: GAS Last Admin: 09/01/18 10:50 Dose: 80 mg - Objective Vital Signs: Vital Signs Temperature 98.6 F 09/02/18 22:00 Pulse Rate 78 09/02/18 22:00 Respiratory Rate 20 09/02/18 22:00 Blood Pressure 108/68 09/02/18 22:00 O2 Sat by Pulse Oximetry (%) 95 09/02/18 21:00 Constitutional: Yes: Calm Cardiovascular: Yes: Regular Rate and Rhythm, S1, S2 Respiratory: Yes: CTA Bilaterally Gastrointestinal: Yes: Normal Bowel Sounds, Soft, Distention Neurological: Yes: Alert, Oriented, Pre-Existing Deficit Labs: CBC, BMP 09/03/18 06:05 09/03/18 06:05 Problem List - Problems (1) Bilateral hydronephrosis Assessment/Plan: s/p cystocopy and stent replacement Code(s): N13.30 - UNSPECIFIED HYDRONEPHROSIS (2) Leukocytosis Assessment/Plan: Microbiology 08/25/18 07:30 Blood - Peripheral Venous Blood Culture - Preliminary NO GROWTH OBTAINED AFTER 24 HOURS, INCUBATION TO CONTINUE FOR 4 DAYS. 08/25/18 07:25 Blood - Peripheral Venous Blood Culture - Preliminary NO GROWTH OBTAINED AFTER 24 HOURS, INCUBATION TO CONTINUE FOR 4 DAYS. 08/22/18 12:40 Blood - Peripheral Venous Blood Culture - Preliminary NO GROWTH OBTAINED AFTER 72 HOURS, INCUBATION TO CONTINUE FOR 2 DAYS. 08/22/18 12:20 Blood - Peripheral Venous Blood Culture - Preliminary NO GROWTH OBTAINED AFTER 72 HOURS, INCUBATION TO CONTINUE FOR 2 DAYS. echo done no vegetations afebrile wbc still slightly elevated iv vancomcycin to change to zyvox for 2 weeks Microbiology 08/19/18 11:15 Blood - Peripheral Venous Blood Culture - Final S Aureus Code(s): D72.829 - ELEVATED WHITE BLOOD CELL COUNT, UNSPECIFIED (3) Constipated Assessment/Plan: mineral oil po does not want colace Code(s): K59.00 - CONSTIPATION, UNSPECIFIED (4) Paraplegia following spinal cord injury Assessment/Plan: frequent turn and positioning Code(s): G82.20 - PARAPLEGIA, UNSPECIFIED Assessment/Plan needs two weeks of zyvox chris get dr mercado to come back see patients wounds
[2018-09-03] MEDS: LINEZOLID 600 MG TABLET (RESTRICTED TO ID) PO SCH ×2 (10:57→22:15)
[2018-09-03] MEDS: MAGNESIUM HYDROX 2400MG/30ML ORAL SUSPENSION 30 ML CUP PO PRN (10:57)
[2018-09-03] MEDS: MULTIVITAMINS (DAILY MVI) TABLET (FP) PO SCH (10:57)
[2018-09-03] MEDS: RANITIDINE HCL 150 MG TABLET (FP) PO SCH (10:57)
[2018-09-03] MEDS: HEPARIN NA (PORCINE) 5,000 UNITS/ML 1ML VIAL SQ SCH ×2 (10:58→22:14)
[2018-09-03] MEDS: DOCUSATE SODIUM 100 MG CAPSULE (FP) PO SCH ×2 (10:58→22:14)
[2018-09-03] MEDS: COLLAGENASE CLOSTRIDIUM HIST. 30 GRAMS TUBE TP SCH (10:58)
[2018-09-03] MEDS: SODIUM CHLORIDE 1,000 ML IV SCH ×2 (10:58→22:14)
[2018-09-03] MEDS: SIMETHICONE 80 MG TAB.CHEW (FP) PO PRN (10:58)
--- NOTE | 2018-09-03 17:29 | PN ---
Progress Note (short form) - Note Progress Note: LEEANNE for 1. Sacral decubitus wounds 2. Abscess Left lower Back Procedure : Under aseptic conditions : Using an 11 blade , a 3 cm incision was made at the Pin-hole, large collection of Purulent fluid drained, 50cc or more Iodoform 1" packing placed in lower back Dr Verdugo 30 min
[2018-09-03] MEDS: SENNOSIDES 8.6MG TABLET (FP) PO SCH (22:14)
[2018-09-03] MEDS: ACETAMINOPHEN 325 MG TABLET (FP) PO PRN (23:01)
[2018-09-04] MEDS: MULTIVITAMINS (DAILY MVI) TABLET (FP) PO SCH (10:23)
[2018-09-04] MEDS: HEPARIN NA (PORCINE) 5,000 UNITS/ML 1ML VIAL SQ SCH ×2 (10:23→22:59)
[2018-09-04] MEDS: RANITIDINE HCL 150 MG TABLET (FP) PO SCH (10:23)
[2018-09-04] MEDS: LINEZOLID 600 MG TABLET (RESTRICTED TO ID) PO SCH ×2 (10:24→23:00)
[2018-09-04] MEDS: DOCUSATE SODIUM 100 MG CAPSULE (FP) PO SCH ×2 (10:30→22:59)
[2018-09-04] MEDS: COLLAGENASE CLOSTRIDIUM HIST. 30 GRAMS TUBE TP SCH (10:30)
[2018-09-04] MEDS: SODIUM CHLORIDE 1,000 ML IV SCH ×2 (10:30→23:00)
--- NOTE | 2018-09-04 18:37 | PN ---
Progress Note, Physician Chief Complaint: Paraplegia B/L Hydronephrosis MDRO Leukocytosis History of Present Illness: Previous notes and events reviewed awake and alert NAD no complaints of chest pain or SOB c/o having chills s/p I&D of abscess to L back - Current Medication List Current Medications: Active Medications Acetaminophen (Tylenol -) 650 mg PO Q6H PRN PRN Reason: FEVER OR PAIN LEVEL 1-5 Last Admin: 09/03/18 23:01 Dose: 650 mg Collagenase (Santyl -) 1 applic TP DAILY [facility]; Protocol Last Admin: 09/04/18 10:30 Dose: Not Given Docusate Sodium (Colace -) 100 mg PO BID [facility] Last Admin: 09/04/18 10:30 Dose: Not Given Heparin Sodium (Porcine) (Heparin -) 5,000 unit SQ BID [facility] Last Admin: 09/04/18 10:23 Dose: 5,000 unit Sodium Chloride (Normal Saline -) 1,000 mls @ 75 mls/hr IV ASDIR [facility] Last Admin: 09/03/18 22:14 Dose: Not Given Sodium Chloride (Normal Saline -) 1,000 mls @ 75 mls/hr IV ASDIR [facility] Last Admin: 09/04/18 10:30 Dose: Not Given Ibuprofen (Caldolor Injection -) 400 mg IVPB Q8H PRN PRN Reason: FEVER Last Admin: 08/26/18 23:05 Dose: 400 mg Linezolid (Zyvox (Restricted To Id) -) 600 mg PO BID [facility] Last Admin: 09/04/18 10:24 Dose: 600 mg Magnesium Hydroxide (Milk Of Magnesia -) 30 ml PO DAILY PRN PRN Reason: CONSTIPATION Last Admin: 09/03/18 10:57 Dose: 30 ml Multivitamins/Minerals/Vitamin C (Tab-A-Vit -) 1 tab PO DAILY [facility] Last Admin: 09/04/18 10:23 Dose: 1 tab Ranitidine HCl (Zantac -) 150 mg PO DAILY [facility] Last Admin: 09/04/18 10:23 Dose: 150 mg Senna (Senna -) 2 tab PO HS [facility] Last Admin: 09/03/18 22:14 Dose: Not Given Simethicone (Mylicon -) 80 mg PO Q4H PRN PRN Reason: GAS Last Admin: 09/03/18 10:58 Dose: 80 mg - Objective Vital Signs: Vital Signs Temperature 97.7 F 09/04/18 13:39 Pulse Rate 96 H 09/04/18 13:39 Respiratory Rate 20 09/04/18 13:39 Blood Pressure 105/65 09/04/18 13:39 O2 Sat by Pulse Oximetry (%) 96 09/03/18 21:00 Constitutional: Yes: No Distress, Calm Eyes: Yes: Conjunctiva Clear HENT: Yes: Atraumatic Cardiovascular: Yes: Regular Rate and Rhythm Respiratory: Yes: Regular, CTA Bilaterally Gastrointestinal: Yes: Normal Bowel Sounds, Soft, Distention Genitourinary: Yes: Pelaez Present Musculoskeletal: Yes: Muscle Weakness Extremities: Yes: WNL Wound/Incision: Yes: Dressing Dry and Intact Neurological: Yes: Alert, Oriented Psychiatric: Yes: Alert, Oriented Labs: CBC, BMP 09/03/18 06:05 09/03/18 06:05 Microbiology 08/30/18 09:30 Blood - Peripheral Venous Blood Culture - Final NO GROWTH AFTER 5 DAYS INCUBATION 08/30/18 09:45 Blood - Peripheral Venous Blood Culture - Final NO GROWTH AFTER 5 DAYS INCUBATION 08/30/18 07:15 Abscess Gram Stain - Final 08/30/18 07:15 Abscess Wound Culture - Final Pseudomonas Aeruginosa Mr S Aureus 08/25/18 07:25 Blood - Peripheral Venous Blood Culture - Final NO GROWTH AFTER 5 DAYS INCUBATION 08/25/18 07:30 Blood - Peripheral Venous Blood Culture - Final NO GROWTH AFTER 5 DAYS INCUBATION 08/22/18 12:40 Blood - Peripheral Venous Blood Culture - Final NO GROWTH AFTER 5 DAYS INCUBATION 08/22/18 12:20 Blood - Peripheral Venous Blood Culture - Final NO GROWTH AFTER 5 DAYS INCUBATION 08/19/18 11:10 Blood - Peripheral Venous Blood Culture - Final NO GROWTH AFTER 5 DAYS INCUBATION 08/18/18 11:00 Blood - Peripheral Venous Blood Culture - Final NO GROWTH AFTER 5 DAYS INCUBATION 08/18/18 10:55 Blood - Peripheral Venous Blood Culture - Final NO GROWTH AFTER 5 DAYS INCUBATION 08/20/18 16:10 Urine - Urine Pelaez Urine Culture - Final Contaminated: Please Repeat 08/19/18 11:15 Blood - Peripheral Venous Blood Culture - Final Mr S Aureus 08/17/18 17:39 Urine - Urine - Catheterized Urine Culture - Final Contaminated: Please Repeat Problem List - Problems (1) Systolic murmur Assessment/Plan: -LVEF is normal -Echocardiogram EF is normal Code(s): R01.1 - CARDIAC MURMUR, UNSPECIFIED (2) Bilateral hydronephrosis Assessment/Plan: -Urology consult -Renal US shows large exophytic right renal cyst 8.2 x 7.5cm, right renal stones without gross evidence of hydronephrosis, multiple left renal stones with moderate to marked hydronephrosis -s/p cystoscopy and stent replacement Code(s): N13.30 - UNSPECIFIED HYDRONEPHROSIS (3) Chronic indwelling Pelaez catheter Assessment/Plan: -Urology on board - care Code(s): Z92.89 - PERSONAL HISTORY OF OTHER MEDICAL TREATMENT (4) Leukocytosis Assessment/Plan: -resolved -ID on board -Linezolid PO ABT -BC x 1 show MRSA, repeat BC negative Code(s): D72.829 - ELEVATED WHITE BLOOD CELL COUNT, UNSPECIFIED (5) MDRO (multiple drug resistant organisms) resistance Assessment/Plan: -contact precaution -ID on board Code(s): Z16.35 - RESISTANCE TO MULTIPLE ANTIMICROBIAL DRUGS (6) UTI (urinary tract infection) Assessment/Plan: -no leukocytosis -ID on board -Linezolid PO -tylenol prn for temp >100F Code(s): N39.0 - URINARY TRACT INFECTION, SITE NOT SPECIFIED Qualifiers: Urinary tract infection type: site unspecified Hematuria presence: without hematuria Qualified Code(s): N39.0 - Urinary tract infection, site not specified (7) Constipation Assessment/Plan: -FUA shows distal fecal impaction -Colace and Senna Code(s): K59.00 - CONSTIPATION, UNSPECIFIED Qualifiers: Constipation type: unspecified constipation type Qualified Code(s): K59.00 - Constipation, unspecified (8) Abscess of flank Assessment/Plan: -Wound culture shows pseudomonas and mrsa -re-consult ID -CT scan abdomen and pelvis reviewed -change dressing daily and as needed -s/p I&D with wound Dr Verdugo -Jeff Code(s): L02.211 - CUTANEOUS ABSCESS OF ABDOMINAL WALL Assessment/Plan see problem list dvt ppx
[2018-09-04] MEDS: SENNOSIDES 8.6MG TABLET (FP) PO SCH (23:00)
--- NOTE | 2018-09-05 08:18 | PN ---
Progress Note, Physician Chief Complaint: AWAKE ALERT DENIES FEVER OR CHILLS EVENTS AND NOTES REVIEWED - Current Medication List Current Medications: Active Medications Acetaminophen (Tylenol -) 650 mg PO Q6H PRN PRN Reason: FEVER OR PAIN LEVEL 1-5 Last Admin: 09/03/18 23:01 Dose: 650 mg Collagenase (Santyl -) 1 applic TP DAILY [facility]; Protocol Last Admin: 09/04/18 10:30 Dose: Not Given Docusate Sodium (Colace -) 100 mg PO BID [facility] Last Admin: 09/04/18 22:59 Dose: Not Given Heparin Sodium (Porcine) (Heparin -) 5,000 unit SQ BID [facility] Last Admin: 09/04/18 22:59 Dose: 5,000 unit Sodium Chloride (Normal Saline -) 1,000 mls @ 75 mls/hr IV ASDIR [facility] Last Admin: 09/04/18 23:00 Dose: Not Given Sodium Chloride (Normal Saline -) 1,000 mls @ 75 mls/hr IV ASDIR [facility] Last Admin: 09/04/18 10:30 Dose: Not Given Ibuprofen (Caldolor Injection -) 400 mg IVPB Q8H PRN PRN Reason: FEVER Last Admin: 08/26/18 23:05 Dose: 400 mg Linezolid (Zyvox (Restricted To Id) -) 600 mg PO BID [facility] Last Admin: 09/04/18 23:00 Dose: 600 mg Magnesium Hydroxide (Milk Of Magnesia -) 30 ml PO DAILY PRN PRN Reason: CONSTIPATION Last Admin: 09/03/18 10:57 Dose: 30 ml Multivitamins/Minerals/Vitamin C (Tab-A-Vit -) 1 tab PO DAILY [facility] Last Admin: 09/04/18 10:23 Dose: 1 tab Ranitidine HCl (Zantac -) 150 mg PO DAILY [facility] Last Admin: 09/04/18 10:23 Dose: 150 mg Senna (Senna -) 2 tab PO HS [facility] Last Admin: 09/04/18 23:00 Dose: Not Given Simethicone (Mylicon -) 80 mg PO Q4H PRN PRN Reason: GAS Last Admin: 09/03/18 10:58 Dose: 80 mg - Objective Vital Signs: Vital Signs Temperature 98.2 F 09/05/18 06:00 Pulse Rate 83 09/05/18 06:00 Respiratory Rate 18 09/05/18 06:00 Blood Pressure 120/68 09/05/18 06:00 O2 Sat by Pulse Oximetry (%) 97 09/04/18 21:00 Constitutional: Yes: Mild Distress Eyes: Yes: WNL HENT: Yes: WNL Neck: Yes: WNL Cardiovascular: Yes: WNL Respiratory: Yes: WNL Gastrointestinal: Yes: Soft, Distention Genitourinary: Yes: Pelaez Present Musculoskeletal: Yes: Muscle Weakness Extremities: Yes: Other Edema: No Integumentary: Yes: Pressure Ulcer Wound/Incision: Yes: Dressing Dry and Intact, Draining, Reddened, Excoriated Neurological: Yes: Loss of Sensation, Pre-Existing Deficit, Weakness ...Motor Strength: LLE, RLE Psychiatric: Yes: Other Labs: CBC, BMP 09/03/18 06:05 09/03/18 06:05 Problem List - Problems (1) Flank pain Code(s): R10.9 - UNSPECIFIED ABDOMINAL PAIN (2) Abscess Code(s): L02.91 - CUTANEOUS ABSCESS, UNSPECIFIED (3) Anemia Code(s): D64.9 - ANEMIA, UNSPECIFIED Qualifiers: Anemia type: iron deficiency Other causes of anemia: due to other specified chronic disease (4) Bilateral hydronephrosis Code(s): N13.30 - UNSPECIFIED HYDRONEPHROSIS (5) Chronic indwelling Pelaez catheter Code(s): Z92.89 - PERSONAL HISTORY OF OTHER MEDICAL TREATMENT (6) Decubitus ulcer Code(s): L89.90 - PRESSURE ULCER OF UNSPECIFIED SITE, UNSPECIFIED STAGE Qualifiers: Laterality: unspecified laterality Qualified Code(s): L89.40 - Pressure ulcer of contiguous site of back, buttock and hip, unspecified stage (7) Leukocytosis Code(s): D72.829 - ELEVATED WHITE BLOOD CELL COUNT, UNSPECIFIED (8) MDRO (multiple drug resistant organisms) resistance Code(s): Z16.35 - RESISTANCE TO MULTIPLE ANTIMICROBIAL DRUGS (9) Obstructive uropathy Code(s): N13.9 - OBSTRUCTIVE AND REFLUX UROPATHY, UNSPECIFIED (10) Paraplegia following spinal cord injury Code(s): G82.20 - PARAPLEGIA, UNSPECIFIED Assessment/Plan ANESTHESIA DR JUDGE ATTEMPTED X3 FOR PERIPHERAL IV ACCESS WHICH FAILED AND PATIENT DENIED ATTEMPT TO WRIST WHICH HAD A CLEAR VEIN FOR ACCESS AND ASKED DR JUDGE TO LEAVE THE ROOM. DR HAYDEN CONSULTED FROM [facility] FOR TRIPLE LUMEN PLACEMENT PATIENTS' ACCESS IS NOT WORKING AND SURGERY CAN NOT CHANGE IT TODAY. WILL D/W ID NOW ON ZYVOX ABX FOR NOW RETROPERITONEAL COLLECTION OF FLUID ORDERED DRAINAGE PER DR GRAVES SURGERY MOM/ENEMA PER RECTAL HAVE WORKED WITH +BM INCREASE FLUID INTAKE ULCER WOUND CARE TO BACK/BUTTOCK PLASTIC SURGERY IS ON THE CASE IODOFROM AND COLLAGENASE FOR WOUND CARE INCREASE NUTRITION FOR WOUND HEALING WITH FREQUENT TURNING
[2018-09-05 10:19] LABS: HEMATOCRIT 26.5 % (35.4-49); HEMOGLOBIN 8.4 GM/dL (11.7-16.9); MCH 24.4 pg (25.7-33.7); MCHC 31.8 g/dl (32.0-35.9); MEAN CELL VOLUME 76.6 fl (80-96); MEAN PLT VOLUME 7.3 fl (7.5-11.1); RBC 3.46 M/mm3 (4.00-5.60); RDW 17.5 % (11.9-15.9); WHITE BLOOD COUNT 8.7 K/mm3 (4.0-10.0)
[2018-09-05 10:56] LABS: BILIRUBIN,TOTAL 0.4 mg/dL (0.2-1); BLOOD UREA NITROGEN 22.6 mg/dL (7-18); CALCIUM 8.7 mg/dL (8.5-10.1); CREATININE 0.9 mg/dL (0.55-1.3); POTASSIUM 4.5 mmol/L (3.5-5.1); TOT PROT 6.8 g/dl (6.4-8.2)
[2018-09-05 12:19] LABS: PLATELET COUNT 371 K/MM3 (134-434)
[2018-09-05] MEDS: HEPARIN NA (PORCINE) 5,000 UNITS/ML 1ML VIAL SQ SCH ×2 (12:27→23:17)
[2018-09-05] MEDS: DOCUSATE SODIUM 100 MG CAPSULE (FP) PO SCH ×2 (12:28→23:18)
[2018-09-05] MEDS: MULTIVITAMINS (DAILY MVI) TABLET (FP) PO SCH (12:28)
[2018-09-05] MEDS: RANITIDINE HCL 150 MG TABLET (FP) PO SCH (12:29)
[2018-09-05] MEDS: COLLAGENASE CLOSTRIDIUM HIST. 30 GRAMS TUBE TP SCH (12:29)
[2018-09-05] MEDS: LINEZOLID 600 MG TABLET (RESTRICTED TO ID) PO SCH ×2 (12:29→23:17)
[2018-09-05] MEDS: SODIUM CHLORIDE 1,000 ML IV SCH ×2 (23:17→23:18)
[2018-09-05] MEDS: SENNOSIDES 8.6MG TABLET (FP) PO SCH (23:18)
[2018-09-06 07:38] LABS: HEMATOCRIT 26.4 % (35.4-49); HEMOGLOBIN 8.4 GM/dL (11.7-16.9); MCH 24.5 pg (25.7-33.7); MCHC 31.9 g/dl (32.0-35.9); MEAN CELL VOLUME 76.7 fl (80-96); MEAN PLT VOLUME 7.2 fl (7.5-11.1); PLATELET COUNT 337 K/MM3 (134-434); RBC 3.44 M/mm3 (4.00-5.60); WHITE BLOOD COUNT 5.7 K/mm3 (4.0-10.0)
--- NOTE | 2018-09-06 08:21 | PN ---
Progress Note, Physician Chief Complaint: PATIENT IS READY FOR DISCHARGE AWAITING INSTRUCTIONS FROM DR CARROLL INFECTIOUS DISEASE FOR DURATION OF ANTIBIOTICS OUTPATIENT. AWAITING ALSO ON SURGERY INSTRUCTIONS FOR LEFT RETROPERITONEAL COLLECTION OF FLUID AND SACRAL DECUBITI. - Current Medication List Current Medications: Active Medications Acetaminophen (Tylenol -) 650 mg PO Q6H PRN PRN Reason: FEVER OR PAIN LEVEL 1-5 Last Admin: 09/03/18 23:01 Dose: 650 mg Collagenase (Santyl -) 1 applic TP DAILY [facility]; Protocol Last Admin: 09/05/18 12:29 Dose: Not Given Docusate Sodium (Colace -) 100 mg PO BID [facility] Last Admin: 09/05/18 23:18 Dose: Not Given Heparin Sodium (Porcine) (Heparin -) 5,000 unit SQ BID [facility] Last Admin: 09/05/18 23:17 Dose: 5,000 unit Sodium Chloride (Normal Saline -) 1,000 mls @ 75 mls/hr IV ASDIR [facility] Last Admin: 09/05/18 23:18 Dose: Not Given Sodium Chloride (Normal Saline -) 1,000 mls @ 75 mls/hr IV ASDIR [facility] Last Admin: 09/05/18 23:17 Dose: Not Given Ibuprofen (Caldolor Injection -) 400 mg IVPB Q8H PRN PRN Reason: FEVER Last Admin: 08/26/18 23:05 Dose: 400 mg Linezolid (Zyvox (Restricted To Id) -) 600 mg PO BID [facility] Last Admin: 09/05/18 23:17 Dose: 600 mg Magnesium Hydroxide (Milk Of Magnesia -) 30 ml PO DAILY PRN PRN Reason: CONSTIPATION Last Admin: 09/03/18 10:57 Dose: 30 ml Multivitamins/Minerals/Vitamin C (Tab-A-Vit -) 1 tab PO DAILY [facility] Last Admin: 09/05/18 12:28 Dose: 1 tab Ranitidine HCl (Zantac -) 150 mg PO DAILY [facility] Last Admin: 09/05/18 12:29 Dose: 150 mg Senna (Senna -) 2 tab PO HS [facility] Last Admin: 09/05/18 23:18 Dose: Not Given Simethicone (Mylicon -) 80 mg PO Q4H PRN PRN Reason: GAS Last Admin: 09/03/18 10:58 Dose: 80 mg - Objective Vital Signs: Vital Signs Temperature 98.3 F 06/24/19 06:51 Pulse Rate 75 09/06/18 06:51 Respiratory Rate 20 09/06/18 06:51 Blood Pressure 135/74 09/06/18 06:51 O2 Sat by Pulse Oximetry (%) 97 09/06/18 03:14 Constitutional: Yes: No Distress Eyes: Yes: WNL HENT: Yes: WNL Neck: Yes: WNL Cardiovascular: Yes: Regular Rate and Rhythm Respiratory: Yes: WNL Gastrointestinal: Yes: Soft, Distention Genitourinary: Yes: Pelaez Present, Incontinence Musculoskeletal: Yes: Muscle Weakness Integumentary: Yes: Pressure Ulcer (STAGE 4 SACRAL DECUBIT AND LEFT RETROPERITONEAL COLECTION DECREASED IN SIZE) Wound/Incision: Yes: Dressing Dry and Intact Neurological: Yes: Loss of Sensation, Pre-Existing Deficit, Weakness ...Motor Strength: LLE, RLE Psychiatric: Yes: Other Problem List - Problems (1) Flank pain Code(s): R10.9 - UNSPECIFIED ABDOMINAL PAIN (2) Abscess Code(s): L02.91 - CUTANEOUS ABSCESS, UNSPECIFIED (3) Anemia Code(s): D64.9 - ANEMIA, UNSPECIFIED Qualifiers: Anemia type: iron deficiency Other causes of anemia: due to other specified chronic disease (4) Bilateral hydronephrosis Code(s): N13.30 - UNSPECIFIED HYDRONEPHROSIS (5) Chronic indwelling Pelaez catheter Code(s): Z92.89 - PERSONAL HISTORY OF OTHER MEDICAL TREATMENT (6) Decubitus ulcer Code(s): L89.90 - PRESSURE ULCER OF UNSPECIFIED SITE, UNSPECIFIED STAGE Qualifiers: Laterality: unspecified laterality Qualified Code(s): L89.40 - Pressure ulcer of contiguous site of back, buttock and hip, unspecified stage (7) Leukocytosis Code(s): D72.829 - ELEVATED WHITE BLOOD CELL COUNT, UNSPECIFIED (8) MDRO (multiple drug resistant organisms) resistance Code(s): Z16.35 - RESISTANCE TO MULTIPLE ANTIMICROBIAL DRUGS (9) Obstructive uropathy Code(s): N13.9 - OBSTRUCTIVE AND REFLUX UROPATHY, UNSPECIFIED (10) Paraplegia following spinal cord injury Code(s): G82.20 - PARAPLEGIA, UNSPECIFIED Assessment/Plan ID CONSULT FOLLOW UP FOR DURATION OF ABX SURGICAL F/U FOR OUTPATIENT CARE WOUND CARE START ANTIDEPRESSANT FOR MOOD DISORDER AND AGITATION F/U WITH YOUR PMD OUTPATIENT
[2018-09-06 08:23] LABS: BLOOD UREA NITROGEN 22.2 mg/dL (7-18); CALCIUM 8.3 mg/dL (8.5-10.1); CREATININE 0.9 mg/dL (0.55-1.3); MAGNESIUM 2.6 mg/dL (1.8-2.4); PHOSPHOROUS 4.2 mg/dL (2.5-4.9); POTASSIUM 4.6 mmol/L (3.5-5.1)
[2018-09-06] MEDS: MULTIVITAMINS (DAILY MVI) TABLET (FP) PO SCH (10:42)
[2018-09-06] MEDS: DOCUSATE SODIUM 100 MG CAPSULE (FP) PO SCH ×2 (10:42→22:41)
[2018-09-06] MEDS: RANITIDINE HCL 150 MG TABLET (FP) PO SCH (10:42)
[2018-09-06] MEDS: HEPARIN NA (PORCINE) 5,000 UNITS/ML 1ML VIAL SQ SCH ×2 (10:43→22:41)
[2018-09-06] MEDS: COLLAGENASE CLOSTRIDIUM HIST. 30 GRAMS TUBE TP SCH (10:43)
[2018-09-06] MEDS: LINEZOLID 600 MG TABLET (RESTRICTED TO ID) PO SCH ×2 (10:43→22:41)
[2018-09-06] MEDS: SENNOSIDES 8.6MG TABLET (FP) PO SCH (22:41)
--- NOTE | 2018-09-07 08:30 | DS ---
Physical Examination Vital Signs: Vital Signs Temperature 98 F 09/07/18 06:00 Pulse Rate 77 09/07/18 06:00 Respiratory Rate 20 09/07/18 06:00 Blood Pressure 104/64 09/07/18 06:00 O2 Sat by Pulse Oximetry (%) 97 09/06/18 21:00 Constitutional: Yes: Calm Eyes: Yes: WNL HENT: Yes: WNL Neck: Yes: WNL Cardiovascular: Yes: Regular Rate and Rhythm Respiratory: Yes: WNL Gastrointestinal: Yes: Normal Bowel Sounds, Distention Renal/: Yes: Incontinence Musculoskeletal: Yes: Muscle Weakness Extremities: Yes: Other Edema: No Integumentary: Yes: Pressure Ulcer, Rash Wound/Incision: Yes: Dressing Dry and Intact Neurological: Yes: Other ...Motor Strength: LLE, RLE Psychiatric: Yes: Other Labs: CBC, BMP 09/06/18 06:50 09/06/18 06:50 Discharge Summary Reason For Visit: LEUKOCYTOSIS Current Active Problems Abscess of flank (Acute) Constipated (Acute) Flank pain (Acute) Prophylactic measure (Acute) Systolic murmur (Acute) Procedures: Principal: CT SCANS Hospital Course: ADMITTES SEPSIS UTI, WOUND INFECTIONS SKIN DECUBIT, TREATED IV AND PO ABX, WOUND CARE WILL NEED EITHER SNF OR HOME HEALTH AID FOR WOUND CARE Condition: Fair - Instructions Diet, Activity, Other Instructions: REG WOUND CARE OUTPATIENT WITH HOME HEALTH AID OR SNF ZYVOX BID Disposition: [facility] - Home Medications Comprehensive Discharge Medication List: Ambulatory Orders Multivitamin [Multiple Vitamins] 1 tab PO DAILY 08/04/18 Levofloxacin [Levaquin] 500 mg PO 08/17/18
[2018-09-07] MEDS: MULTIVITAMINS (DAILY MVI) TABLET (FP) PO SCH (10:41)
[2018-09-07] MEDS: RANITIDINE HCL 150 MG TABLET (FP) PO SCH (10:41)
[2018-09-07] MEDS: LINEZOLID 600 MG TABLET (RESTRICTED TO ID) PO SCH ×2 (10:41→22:39)
[2018-09-07] MEDS: HEPARIN NA (PORCINE) 5,000 UNITS/ML 1ML VIAL SQ SCH ×2 (10:41→22:38)
[2018-09-07] MEDS: SIMETHICONE 80 MG TAB.CHEW (FP) PO PRN (10:49)
[2018-09-07] MEDS: DOCUSATE SODIUM 100 MG CAPSULE (FP) PO SCH ×2 (12:46→22:38)
[2018-09-07] MEDS: COLLAGENASE CLOSTRIDIUM HIST. 30 GRAMS TUBE TP SCH (12:47)
[2018-09-07] MEDS ORDERED: METHYL SALICYLATE/MENTHOL OINT 30 GM TUBE TP PRN (13:40)
--- NOTE | 2018-09-07 14:59 | PN ---
Progress Note, Physician History of Present Illness: AWAKE, ALERT IN BED AFEBRILE TOLERATING PO ZYVOX - Current Medication List Current Medications: Active Medications Acetaminophen (Tylenol -) 650 mg PO Q6H PRN PRN Reason: FEVER OR PAIN LEVEL 1-5 Last Admin: 09/03/18 23:01 Dose: 650 mg Collagenase (Santyl -) 1 applic TP DAILY [facility]; Protocol Last Admin: 09/07/18 12:47 Dose: Not Given Docusate Sodium (Colace -) 100 mg PO BID [facility] Last Admin: 09/07/18 12:46 Dose: Not Given Heparin Sodium (Porcine) (Heparin -) 5,000 unit SQ BID [facility] Last Admin: 09/07/18 10:41 Dose: 5,000 unit Ibuprofen (Caldolor Injection -) 400 mg IVPB Q8H PRN PRN Reason: FEVER Last Admin: 08/26/18 23:05 Dose: 400 mg Linezolid (Zyvox (Restricted To Id) -) 600 mg PO BID [facility] Last Admin: 09/07/18 10:41 Dose: 600 mg Magnesium Hydroxide (Milk Of Magnesia -) 30 ml PO DAILY PRN PRN Reason: CONSTIPATION Last Admin: 09/03/18 10:57 Dose: 30 ml Methyl Salicylate (Osmar-Moreno -) 1 applic TP Q6H PRN PRN Reason: BACK PAIN Multivitamins/Minerals/Vitamin C (Tab-A-Vit -) 1 tab PO DAILY [facility] Last Admin: 09/07/18 10:41 Dose: 1 tab Ranitidine HCl (Zantac -) 150 mg PO DAILY [facility] Last Admin: 09/07/18 10:41 Dose: 150 mg Senna (Senna -) 2 tab PO HS [facility] Last Admin: 09/06/18 22:41 Dose: Not Given Simethicone (Mylicon -) 80 mg PO Q4H PRN PRN Reason: GAS Last Admin: 09/07/18 10:49 Dose: 80 mg - Objective Vital Signs: Vital Signs Temperature 98.1 F 09/07/18 10:25 Pulse Rate 94 H 09/07/18 10:25 Respiratory Rate 20 09/07/18 10:25 Blood Pressure 110/66 09/07/18 10:25 O2 Sat by Pulse Oximetry (%) 97 09/07/18 09:00 Constitutional: Yes: No Distress Cardiovascular: Yes: Regular Rate and Rhythm, S1, S2 Respiratory: Yes: Diminished Gastrointestinal: Yes: Normal Bowel Sounds, Soft, Other (SL DISTENDE). No: Tenderness Labs: CBC, BMP 09/06/18 06:50 09/06/18 06:50 Assessment/Plan +BC MRSA CHRONIC L FLANK COLLECTION WITH SPONTANEOUS PURULENT DRAINAGE NEUROGENIC BLADDER/ INDWELLING PINZON CONTINUE PO ZYVOX FOR ADDITIONAL 7 DAYS
--- NOTE | 2018-09-07 16:22 | PN ---
Progress Note (short form) - Note Progress Note: UROLOGY NOTE. pt. with permanent hull refuses suprapubic catheter. 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 lower back. will go for perc. drainage in am by ir dr. Kurtz.will also schedule for lt. pcnl at [facility] as op.
[2018-09-07] MEDS: SENNOSIDES 8.6MG TABLET (FP) PO SCH (22:38)
[2018-09-08] MEDS: LINEZOLID 600 MG TABLET (RESTRICTED TO ID) PO SCH ×2 (10:43→22:27)
[2018-09-08] MEDS: RANITIDINE HCL 150 MG TABLET (FP) PO SCH (10:43)
[2018-09-08] MEDS: COLLAGENASE CLOSTRIDIUM HIST. 30 GRAMS TUBE TP SCH (10:53)
[2018-09-08] MEDS: HEPARIN NA (PORCINE) 5,000 UNITS/ML 1ML VIAL SQ SCH ×2 (10:53→22:27)
[2018-09-08] MEDS: DOCUSATE SODIUM 100 MG CAPSULE (FP) PO SCH ×2 (10:53→22:27)
[2018-09-08] MEDS: MULTIVITAMINS (DAILY MVI) TABLET (FP) PO SCH (10:54)
--- NOTE | 2018-09-08 10:57 | PN ---
Progress Note, Physician Chief Complaint: PT TO HAVE I&D WITH I.R TODAY LEFT RETROPERITONEAL FLUID COLLECTION AGITATED - Current Medication List Current Medications: Active Medications Acetaminophen (Tylenol -) 650 mg PO Q6H PRN PRN Reason: FEVER OR PAIN LEVEL 1-5 Last Admin: 09/03/18 23:01 Dose: 650 mg Docusate Sodium (Colace -) 100 mg PO BID [facility] Last Admin: 09/07/18 22:38 Dose: Not Given Heparin Sodium (Porcine) (Heparin -) 5,000 unit SQ BID [facility] Last Admin: 09/07/18 22:38 Dose: 5,000 unit Ibuprofen (Caldolor Injection -) 400 mg IVPB Q8H PRN PRN Reason: FEVER Last Admin: 08/26/18 23:05 Dose: 400 mg Linezolid (Zyvox (Restricted To Id) -) 600 mg PO BID [facility] Last Admin: 09/08/18 10:43 Dose: 600 mg Magnesium Hydroxide (Milk Of Magnesia -) 30 ml PO DAILY PRN PRN Reason: CONSTIPATION Last Admin: 09/03/18 10:57 Dose: 30 ml Methyl Salicylate (Osmar-Moreno -) 1 applic TP Q6H PRN PRN Reason: BACK PAIN Last Admin: 09/07/18 15:43 Dose: 1 applic Multivitamins/Minerals/Vitamin C (Tab-A-Vit -) 1 tab PO DAILY [facility] Last Admin: 09/07/18 10:41 Dose: 1 tab Ranitidine HCl (Zantac -) 150 mg PO DAILY [facility] Last Admin: 09/08/18 10:43 Dose: 150 mg Senna (Senna -) 2 tab PO HS [facility] Last Admin: 09/07/18 22:38 Dose: Not Given Simethicone (Mylicon -) 80 mg PO Q4H PRN PRN Reason: GAS Last Admin: 09/07/18 10:49 Dose: 80 mg - Objective Vital Signs: Vital Signs Temperature 98.1 F 09/08/18 06:00 Pulse Rate 77 09/08/18 06:00 Respiratory Rate 20 09/08/18 06:00 Blood Pressure 121/63 09/08/18 06:00 O2 Sat by Pulse Oximetry (%) 97 09/07/18 21:00 Constitutional: Yes: Mild Distress Eyes: Yes: WNL HENT: Yes: WNL Neck: Yes: WNL Cardiovascular: Yes: Regular Rate and Rhythm Respiratory: Yes: WNL Gastrointestinal: Yes: Distention, Other (LEFT FLANK FLUID COLLECTION) Genitourinary: Yes: Pelaez Present Musculoskeletal: Yes: Muscle Weakness Edema: No Integumentary: Yes: Pressure Ulcer, Rash, Venous Stasis Changes Wound/Incision: Yes: Dressing Dry and Intact, Unapproximated Neurological: Yes: Pre-Existing Deficit, Unsteady Gait, Weakness Psychiatric: Yes: Other Labs: CBC, BMP 09/06/18 06:50 09/06/18 06:50 Problem List - Problems (1) Flank pain Code(s): R10.9 - UNSPECIFIED ABDOMINAL PAIN (2) Abscess Code(s): L02.91 - CUTANEOUS ABSCESS, UNSPECIFIED (3) Anemia Code(s): D64.9 - ANEMIA, UNSPECIFIED Qualifiers: Anemia type: iron deficiency Other causes of anemia: due to other specified chronic disease (4) Bilateral hydronephrosis Code(s): N13.30 - UNSPECIFIED HYDRONEPHROSIS (5) Chronic indwelling Pelaez catheter Code(s): Z92.89 - PERSONAL HISTORY OF OTHER MEDICAL TREATMENT (6) Decubitus ulcer Code(s): L89.90 - PRESSURE ULCER OF UNSPECIFIED SITE, UNSPECIFIED STAGE Qualifiers: Laterality: unspecified laterality Qualified Code(s): L89.40 - Pressure ulcer of contiguous site of back, buttock and hip, unspecified stage (7) Leukocytosis Code(s): D72.829 - ELEVATED WHITE BLOOD CELL COUNT, UNSPECIFIED (8) MDRO (multiple drug resistant organisms) resistance Code(s): Z16.35 - RESISTANCE TO MULTIPLE ANTIMICROBIAL DRUGS (9) Obstructive uropathy Code(s): N13.9 - OBSTRUCTIVE AND REFLUX UROPATHY, UNSPECIFIED (10) Paraplegia following spinal cord injury Code(s): G82.20 - PARAPLEGIA, UNSPECIFIED Assessment/Plan SCHEDULED FOR I&D OF LEFT RETROPERITONEAL FLUID COLLECTION WILL F/U WITH I.R. PATIENT SHOLD BE STARTED ON ZOLOFT/SSRI OF CHOICE ALWAYS AGITATED AND YELLING AT HOUSE STAFF ID CONSULT FOLLOW UP FOR DURATION OF ABX SURGICAL F/U FOR OUTPATIENT CARE WOUND CARE START ANTIDEPRESSANT FOR MOOD DISORDER AND AGITATION F/U WITH YOUR PMD OUTPATIENT
[2018-09-08 11:33] LABS: INR 1.09 (0.83-1.09); PROTHROMBIN TIME (PATIENT) 12.9 SEC (9.7-13.0)
[2018-09-08] MEDS: SENNOSIDES 8.6MG TABLET (FP) PO SCH (22:27)
[2018-09-09] MEDS: MULTIVITAMINS (DAILY MVI) TABLET (FP) PO SCH (10:21)
[2018-09-09] MEDS: HEPARIN NA (PORCINE) 5,000 UNITS/ML 1ML VIAL SQ SCH ×2 (10:21→21:36)
[2018-09-09] MEDS: LINEZOLID 600 MG TABLET (RESTRICTED TO ID) PO SCH ×2 (10:21→21:36)
[2018-09-09] MEDS: RANITIDINE HCL 150 MG TABLET (FP) PO SCH (10:21)
[2018-09-09] MEDS: DOCUSATE SODIUM 100 MG CAPSULE (FP) PO SCH ×2 (10:21→21:36)
--- NOTE | 2018-09-09 10:47 | DS ---
Physical Examination Vital Signs: Vital Signs Temperature 98.5 F 09/09/18 06:53 Pulse Rate 88 09/09/18 06:53 Respiratory Rate 18 09/09/18 06:53 Blood Pressure 98/60 09/09/18 06:53 O2 Sat by Pulse Oximetry (%) 100 09/08/18 21:00 Findings/Remarks: S/P DRAINAGE OF LEFT FLANK REROPERITONEAL FLUID COLLECTION WILL NEED 7 DAYS OF ZYVOX ONLY BID Constitutional: Yes: Mild Distress Eyes: Yes: WNL HENT: Yes: WNL Neck: Yes: WNL Cardiovascular: Yes: Regular Rate and Rhythm Respiratory: Yes: WNL Gastrointestinal: Yes: Other Renal/: Yes: Other Musculoskeletal: Yes: Muscle Weakness Edema: No Integumentary: Yes: Pressure Ulcer (STAGE 3, 4 AND UNSTAGEABLE ULCERS TO BACK/ BUTTOCK/SACRAL) Neurological: Yes: Loss of Sensation, Pre-Existing Deficit, Weakness ...Motor Strength: LLE, RLE Psychiatric: Yes: Other Labs: CBC, BMP 09/06/18 06:50 09/06/18 06:50 Discharge Summary Reason For Visit: LEUKOCYTOSIS Current Active Problems Abscess of flank (Acute) Constipated (Acute) Flank pain (Acute) Prophylactic measure (Acute) Systolic murmur (Acute) Procedures: Principal: CT SCAN, DRAINAGE OF FLUID COLLECTION Hospital Course: ADMITTED FOR SEPSIS, WOUNDS TO BACK/SACRAL DECUBITI, TREATED WITH IV ABX AND PO , WILL NEED WOUND CARE AND F/U WITH SNF Condition: Fair - Instructions Diet, Activity, Other Instructions: REG WOUND CARE OUTPATIENT WITH HOME HEALTH AID OR SNF ZYVOX BID FOR [address] [facility] FOR FOLLOW UP Disposition: CUSTODIAL FACILITY - Home Medications Comprehensive Discharge Medication List: Ambulatory Orders Multivitamin [Multiple Vitamins] 1 tab PO DAILY 08/04/18 Levofloxacin [Levaquin] 500 mg PO 08/17/18 Acetaminophen [Tylenol .Regular Strength -] 650 mg PO Q6H PRN tablet 09/09/18 Docusate Sodium [Colace -] 100 mg PO BID capsule 09/09/18 Heparin - 5,000 unit SQ BID vial 09/09/18 Ibuprofen Injection [Caldolor Injection -] 400 mg IVPB Q8H PRN ij 09/09/18 Linezolid [Zyvox (Restricted To Id) -] 600 mg PO BID #24 tablet 09/09/18 Magnesium Hydrox 2400MG/30Ml [Milk of Magnesia -] 30 ml PO DAILY PRN cup Methyl Salicylate/Menthol Oint [Analgesic Mccl[place] -] 1 applic TP Q6H PRN applic Ranitidine [Zantac -] 150 mg PO DAILY tablet 09/09/18 Sennosides [Senna -] 2 tab PO HS tablet 09/09/18 Simethicone [Mylicon -] 80 mg PO Q4H PRN tab.chew 09/09/18
[2018-09-09] MEDS: SENNOSIDES 8.6MG TABLET (FP) PO SCH (21:36)
--- NOTE | 2018-09-10 09:48 | DS ---
Physical Examination Vital Signs: Vital Signs Temperature 97.8 F 09/10/18 06:00 Pulse Rate 79 09/10/18 06:00 Respiratory Rate 20 09/10/18 06:00 Blood Pressure 104/62 09/10/18 06:00 O2 Sat by Pulse Oximetry (%) 96 09/09/18 21:00 Cardiovascular: Yes: S1, S2 Respiratory: Yes: Regular, CTA Bilaterally Gastrointestinal: Yes: Normal Bowel Sounds, Soft Wound/Incision: Yes: Other (drain in place) Labs: CBC, BMP 09/06/18 06:50 09/06/18 06:50 Discharge Summary Reason For Visit: LEUKOCYTOSIS Current Active Problems Abscess of flank (Acute) Constipated (Acute) Flank pain (Acute) Prophylactic measure (Acute) Systolic murmur (Acute) Hospital Course: - Problems (1) Systolic murmur Assessment/Plan: -LVEF is normal -Echocardiogram EF is normal Code(s): R01.1 - CARDIAC MURMUR, UNSPECIFIED (2) Bilateral hydronephrosis Assessment/Plan: -Urology consult noted--outpatient follow up -Renal US shows large exophytic right renal cyst 8.2 x 7.5cm, right renal stones without gross evidence of hydronephrosis, multiple left renal stones with moderate to marked hydronephrosis -s/p cystoscopy and stent replacement Code(s): N13.30 - UNSPECIFIED HYDRONEPHROSIS (3) Chronic indwelling Pelaez catheter Assessment/Plan: -Urology on board - care--Refuses SPT Code(s): Z92.89 - PERSONAL HISTORY OF OTHER MEDICAL TREATMENT (4) Leukocytosis Assessment/Plan: -resolved -ID on board -Linezolid PO ABT -BC x 1 show MRSA, repeat BC negative Code(s): D72.829 - ELEVATED WHITE BLOOD CELL COUNT, UNSPECIFIED (5) MDRO (multiple drug resistant organisms) resistance Assessment/Plan: -contact precaution -ID on board Code(s): Z16.35 - RESISTANCE TO MULTIPLE ANTIMICROBIAL DRUGS (6) UTI (urinary tract infection) Assessment/Plan: -no leukocytosis -ID on board -Linezolid PO -tylenol prn for temp >100F Code(s): N39.0 - URINARY TRACT INFECTION, SITE NOT SPECIFIED Qualifiers: Urinary tract infection type: site unspecified Hematuria presence: without hematuria Qualified Code(s): N39.0 - Urinary tract infection, site not specified (7) Constipation Assessment/Plan: -FUA shows distal fecal impaction -Colace and Senna Code(s): K59.00 - CONSTIPATION, UNSPECIFIED Qualifiers: Constipation type: unspecified constipation type Qualified Code(s): K59.00 - Constipation, unspecified (8) Abscess of flank Assessment/Plan: -Wound culture Microbiology 09/08/18 15:45 Abscess Gram Stain - Final 09/08/18 15:45 Abscess Body Fluid Culture - Preliminary Non Lactose Fermenting Gnb 08/30/18 09:30 Blood - Peripheral Venous Blood Culture - Final NO GROWTH AFTER 5 DAYS INCUBATION 08/30/18 09:45 Blood - Peripheral Venous Blood Culture - Final NO GROWTH AFTER 5 DAYS INCUBATION 08/30/18 07:15 Abscess Gram Stain - Final 08/30/18 07:15 Abscess Wound Culture - Final Pseudomonas Aeruginosa Mr S Aureus 08/25/18 07:25 Blood - Peripheral Venous Blood Culture - Final NO GROWTH AFTER 5 DAYS INCUBATION 08/25/18 07:30 Blood - Peripheral Venous Blood Culture - Final NO GROWTH AFTER 5 DAYS INCUBATION 08/22/18 12:40 Blood - Peripheral Venous Blood Culture - Final NO GROWTH AFTER 5 DAYS INCUBATION 08/22/18 12:20 Blood - Peripheral Venous Blood Culture - Final NO GROWTH AFTER 5 DAYS INCUBATION 08/19/18 11:10 Blood - Peripheral Venous Blood Culture - Final NO GROWTH AFTER 5 DAYS INCUBATION 08/18/18 11:00 Blood - Peripheral Venous Blood Culture - Final NO GROWTH AFTER 5 DAYS INCUBATION 08/18/18 10:55 Blood - Peripheral Venous Blood Culture - Final NO GROWTH AFTER 5 DAYS INCUBATION 08/20/18 16:10 Urine - Urine Pelaez Urine Culture - Final Contaminated: Please Repeat 08/19/18 11:15 Blood - Peripheral Venous Blood Culture - Final Mr S Aureus 08/17/18 17:39 Urine - Urine - Catheterized Urine Culture - Final Contaminated: Please Repeat -Drain in place -CT scan abdomen and pelvis reviewed -change dressing daily and as needed -s/p I&D with wound Dr Graves -Zyvox --abx per id Code(s): L02.211 - CUTANEOUS ABSCESS OF ABDOMINAL WALL Condition: Fair - Instructions Diet, Activity, Other Instructions: REG WOUND CARE OUTPATIENT WITH HOME HEALTH AID OR SNF ZYVOX BID FOR [address] [facility] FOR FOLLOW UP Disposition: INTERMEDIATE FACILITY - Home Medications Comprehensive Discharge Medication List: Ambulatory Orders Multivitamin [Multiple Vitamins] 1 tab PO DAILY 08/04/18 Acetaminophen [Tylenol .Regular Strength -] 650 mg PO Q6H PRN tablet 09/09/18 Docusate Sodium [Colace -] 100 mg PO BID capsule 09/09/18 Heparin - 5,000 unit SQ BID vial 09/09/18 Ibuprofen Injection [Caldolor Injection -] 400 mg IVPB Q8H PRN ij 09/09/18 Linezolid [Zyvox (Restricted To Id) -] 600 mg PO BID #24 tablet 09/09/18 Magnesium Hydrox 2400MG/30Ml [Milk of Magnesia -] 30 ml PO DAILY PRN cup Methyl Salicylate/Menthol Oint [Analgesic [place] -] 1 applic TP Q6H PRN applic Ranitidine [Zantac -] 150 mg PO DAILY tablet 09/09/18 Sennosides [Senna -] 2 tab PO HS tablet 09/09/18 Simethicone [Mylicon -] 80 mg PO Q4H PRN tab.chew 09/09/18
[2018-09-10 10:18] VITALS: BP 102/63; PULSE 92; TEMP 98.8
[2018-09-10] MEDS: RANITIDINE HCL 150 MG TABLET (FP) PO SCH (10:19)
[2018-09-10] MEDS: LINEZOLID 600 MG TABLET (RESTRICTED TO ID) PO SCH (10:19)
[2018-09-10] MEDS: HEPARIN NA (PORCINE) 5,000 UNITS/ML 1ML VIAL SQ SCH (10:19)
[2018-09-10] MEDS: MULTIVITAMINS (DAILY MVI) TABLET (FP) PO SCH (10:20)
[2018-09-10] MEDS: DOCUSATE SODIUM 100 MG CAPSULE (FP) PO SCH (10:20)
== END 2018-09-10 11:55 | DRG 853 ==
LOC: JER 12:08 → JERBED 18:23 → J7W 21:02
PROVIDERS: ADMIT Family Medicine; ATTEND Family Medicine
PROC: 05HF33Z Insertion of Infusion Device into Left Cephalic Vein, Percutaneous Approach (ICD-10-PCS; principal; 2018-08-18)
PROC: 0TC78ZZ Extirpation of Matter from Left Ureter, Via Natural or Artificial Opening Endoscopic (ICD-10-PCS; 2018-08-23)
PROC: BT1FZZZ Fluoroscopy of Left Kidney, Ureter and Bladder (ICD-10-PCS; 2018-08-23)
PROC: 0TJB8ZZ Inspection of Bladder, Via Natural or Artificial Opening Endoscopic (ICD-10-PCS; 2018-08-23)
PROC: 0TP98DZ Removal of Intraluminal Device from Ureter, Via Natural or Artificial Opening Endoscopic (ICD-10-PCS; 2018-08-23)
PROC: 0T778DZ Dilation of Left Ureter with Intraluminal Device, Via Natural or Artificial Opening Endoscopic (ICD-10-PCS; 2018-08-23 14:00)
PROC: 05HF33Z Insertion of Infusion Device into Left Cephalic Vein, Percutaneous Approach (ICD-10-PCS; 2018-08-26)
PROC: B51NZZA Fluoroscopy of Left Upper Extremity Veins, Guidance (ICD-10-PCS; 2018-08-26)
PROC: 0W9H0ZX Drainage of Retroperitoneum, Open Approach, Diagnostic (ICD-10-PCS; 2018-08-30)
PROC: 0W9L0ZX Drainage of Lower Back, Open Approach, Diagnostic (ICD-10-PCS; 2018-09-03)
PROC: 0W9H30Z Drainage of Retroperitoneum with Drainage Device, Percutaneous Approach (ICD-10-PCS; 2018-09-08)
DX: A41.02 Sepsis due to Methicillin resistant Staphylococcus aureus (principal); L89.154 Pressure ulcer of sacral region, stage 4; L89.313 Pressure ulcer of right buttock, stage 3; T83.511A Infection and inflammatory reaction due to indwelling urethral catheter, initial encounter; L02.211 Cutaneous abscess of abdominal wall; G82.20 Paraplegia, unspecified; L03.115 Cellulitis of right lower limb; L03.116 Cellulitis of left lower limb; Q43.1 Hirschsprung's disease; K59.2 Neurogenic bowel, not elsewhere classified; N13.6 Pyonephrosis; N28.1 Cyst of kidney, acquired; N13.9 Obstructive and reflux uropathy, unspecified; J44.9 Chronic obstructive pulmonary disease, unspecified; N31.9 Neuromuscular dysfunction of bladder, unspecified; D64.9 Anemia, unspecified; K59.09 Other constipation; M21.372 Foot drop, left foot; K59.00 Constipation, unspecified; L89.510 Pressure ulcer of right ankle, unstageable; L89.320 Pressure ulcer of left buttock, unstageable; M21.371 Foot drop, right foot; R01.1 Cardiac murmur, unspecified; D72.829 Elevated white blood cell count, unspecified; Z74.01 Bed confinement status; Z92.89 Personal history of other medical treatment; Z87.891 Personal history of nicotine dependence; Z16.35 Resistance to multiple antimicrobial drugs
CPT/HCPCS: 36415; 49406; 71045-TC-FY; 71046-TC-FY; 73610-TC-LT-FY; 73630-TC-RT-FY; 74018-TC-FY; 74019-TC-FY; 74176-TC; 76000-TC-FY; 76098-TC-FY; 76380-TC; 76775-TC; 80048; 80053; 81003; 82360; 83605; 83735; 84100; 84443; 85025; 85027; 85610; 87040; 87070; 87075; 87086; 87184; 87186; 87205; 87899; 88300-TC; 93306-TC; 93926-TC; 94760; 99283-25; C1729; C1769; G0480; J1644; J7030

== ENCOUNTER 2018-09-23 07:16 | Emergency (ER) | payer OTHER ==
[2018-09-23 07:43] VITALS: TEMP 97.4; BMI 22.7
--- NOTE | 2018-09-23 08:17 | PDOC ---
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 Concern for worsening RP collection despite recent completion of linezolid and currently on levoquin Pt does admit that drainage from the tube fluctuates and this level of increased drainage has happened before Plan for labs, CTAP to evaluate progress of collection Case discussed with PMD Dr. Raman, recommends transfer to tertiary care center for definitive surgical management Will reassess after w/u more complete Dr. Oro called at 11:30am, 12:10pm Reached at 12:12 pm 09/23/18 12:16 Labs wnl CTAP with IV contrast with significantly decreased size of RP collection Pt is well appearing, non toxic with no leukocytosis or other systemic signs of infection Results discussed with pt, questions answered Case discussed with Dr. Wood (covering for urologist Dr Oro) who is familiar with the patient Recommends DC with outpt uro f/u given decrease in size of collection Pt in agreement with plan, return precautions given Of note, fecal impaction noted on CTAP. Pt states he is chronically constipated due to quadriplegia, he declines rectal exam. Recommended to pt to increase bowel regimen with laxatives, etc, he expresses understanding. I discussed the physical exam findings, ancillary test results and final diagnoses with the patient. I answered all of the patient's questions. The patient was satisfied with the care received and felt comfortable with the discharge plan and treatment plan. The patient will call their primary care physician within 24 hours to arrange follow-up and will return to the Emergency Department with any new, persistent or worsening symptoms. 09/23/18 13:54 Transport here to take pt BP documented to be 94/46 Pt often in 90s/60s at baseline Rechecked twice by me, 96/64 and 94/60 Pt feels well, clincically stable for DC home
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
[2018-09-23 09:58] LABS: ALBUMIN 2.7 g/dl (3.4-5.0); BILIRUBIN,TOTAL 0.4 mg/dL (0.2-1); BLOOD UREA NITROGEN 24.7 mg/dL (7-18); CALCIUM 9.1 mg/dL (8.5-10.1); CREATININE 0.9 mg/dL (0.55-1.3); POTASSIUM 5.3 mmol/L (3.5-5.1); TOT PROT 7.6 g/dl (6.4-8.2)
[2018-09-23 10:19] LABS: BASO % 0.7 % (0-2.0); EOS % 4.1 % (0-4.5); HEMATOCRIT 32.5 % (35.4-49); HEMOGLOBIN 10.4 GM/dL (11.7-16.9); LYMPH % 19.9 % (8-40); MCH 26.7 pg (25.7-33.7); MCHC 32.1 g/dl (32.0-35.9); MEAN CELL VOLUME 83.3 fl (80-96); MONO % 13.5 % (3.8-10.2); NEUT % 61.8 % (42.8-82.8); RDW 28.7 % (11.9-15.9); WHITE BLOOD COUNT 5.7 K/mm3 (4.0-10.0)
[2018-09-23 10:25] LABS: PLATELET COUNT 162 K/MM3 (134-434)
[2018-09-23 13:42] VITALS: BP 94/46; PULSE 86
== END 2018-09-23 13:56 ==
LOC: JER 07:16
DX: L02.211 Cutaneous abscess of abdominal wall (principal); R18.8 Other ascites; G82.20 Paraplegia, unspecified; Z48.03 Encounter for change or removal of drains; N28.89 Other specified disorders of kidney and ureter; N31.9 Neuromuscular dysfunction of bladder, unspecified; L89.159 Pressure ulcer of sacral region, unspecified stage; Z93.50 Unspecified cystostomy status; Z87.440 Personal history of urinary (tract) infections; Z87.442 Personal history of urinary calculi; K56.41 Fecal impaction; Z86.19 Personal history of other infectious and parasitic diseases; Z96.0 Presence of urogenital implants; L89.300 Pressure ulcer of unspecified buttock, unstageable
CPT/HCPCS: 36415; 74177-TC; 80053; 85025; 85730; 87070; 87075; 87077; 87186; 87205; 99281-25

== ENCOUNTER 2019-02-08 19:32 | Inpatient (IN) | payer OTHER ==
[2019-02-08] MEDS ORDERED: SODIUM CHLORIDE 1,000 ML IV STA (22:16)
--- NOTE | 2019-02-08 22:16 | PDOC ---
Documentation entered by Blank Murray SCRIBE, acting as scribe for Nichole Segundo MD. Nichole Segundo MD: This documentation has been prepared by the kaylaibeTerri Joy, SCRIBE, under my direction and personally reviewed by me in its entirety. I confirm that the documentation accurately reflects all work, treatment, procedures, and medical decision making performed by me. History of Present Illness - General Chief Complaint: Shortness of Breath Stated Complaint: SOB Time Seen by Provider: 02/08/19 20:30 History Source: Patient, Family Exam Limitations: No Limitations - History of Present Illness Initial Comments: 02/08/19 21:29 The patient is a 53 year old male with a significant past medical history of T6 paraplegia w/neurogenic bladder and indwelling catheter (04/17), nephrolithiasis (s/p lithotripsy and ureteral stent), recurrent UTIs, chronic constipation and L retroperitoneal/iliopsoas abscess drainage catheter in place presents from [facility] for SOB. Family at bedside report the patient has been endorsing urinary retentions, cloudy urine and distended belly for the past 2 days. The patient denies chest pain, headache and dizziness. Denies fever, nausea, vomiting, diarrhea and constipation. Denies dysuria, frequency, urgency and hematuria. Allergies: Polymyxin B Urologist: Dr Pizano PCP: Dr House Past History - Past Medical History Allergies/Adverse Reactions: Allergies Allergy/AdvReac Type Severity Reaction Status Date / Time ampicillin Allergy Mild Itching Verified 02/09/19 05:30 polymyxin B Allergy Mild Itching Verified 02/09/19 05:30 Home Medications: Ambulatory Orders Multivitamin [Multiple Vitamins] 1 tab PO DAILY 08/04/18 Acetaminophen [Tylenol .Regular Strength -] 650 mg PO Q6H PRN tablet 09/09/18 Docusate Sodium [Colace -] 100 mg PO BID capsule 09/09/18 Magnesium Hydrox 2400MG/30Ml [Milk of Magnesia -] 30 ml PO DAILY PRN cup Methyl Salicylate/Menthol Oint [Analgesic [place] -] 1 applic TP Q6H PRN applic Sennosides [Senna -] 2 tab PO HS tablet 09/09/18 Simethicone [Mylicon -] 80 mg PO Q4H PRN tab.chew 09/09/18 Albuterol 0.083% Nebulizer Estrellita [Ventolin 0.083% Nebulizer Soln -] 1 amp NEB Q6H PRN amp 02/13/19 Anemia: Yes Asthma: No Cancer: No Cardiac Disorders: No CVA: No COPD: Yes CHF: No DVT: No Dementia: No Diabetes: No GI Disorders: Yes (neurogenic bowel with persistent constipation, GI bleed, cholelithiasis) Disorders: Yes (neurogenic bladder, UTIs, permanent hull) HTN: No Hypercholesterolemia: No Kidney Stones: Yes (haley staghorn calculi, haley stents) Liver Disease: No Seizures: No Thyroid Disease: No - Surgical History Abdominal Surgery: No Appendectomy: No Cardiac Surgery: No Cholecystectomy: No Lung Surgery: No Neurologic Surgery: No Orthopedic Surgery: Yes - Immunization History Td Vaccination: No TDAP Vaccination: No Immunization Up to Date: Yes - Psycho Social/Smoking Cessation Hx Smoking Status: Yes Smoking History: Current every day smoker Years of Tobacco Use: 35 Have you smoked in the past 12 months: No Number of Cigarettes Smoked Daily: 20 If you are a former smoker, when did you quit?: 03/2014 Cigars Per Day: 5 Information on smoking cessation initiated: No 'Breaking Loose' booklet given: 06/08/15 Hx Alcohol Use: No Drug/Substance Use Hx: No Substance Use Type: None Hx Substance Use Treatment: No Review of Systems - Review of Systems Able to Perform ROS?: Yes Comments:: 02/08/19 21:34 GENERAL/CONSTITUTIONAL: No fever or chills. No weakness. HEAD, EYES, EARS, NOSE AND THROAT: No change in vision. No ear pain or discharge. No sore throat. CARDIOVASCULAR: . No chest pain. RESPIRATORY: +Shortness of breath. No cough, wheezing, or hemoptysis. GASTROINTESTINAL: No nausea, vomiting, diarrhea or constipation. GENITOURINARY: +Urinary retention, +Distended abdomen, +Cloudy urine. No dysuria , frequency. MUSCULOSKELETAL: No joint or muscle swelling or pain. No neck or back pain. SKIN: No rash NEUROLOGIC: No headache, vertigo, loss of consciousness, or change in strength/ sensation. ENDOCRINE: No increased thirst. No abnormal weight change. HEMATOLOGIC/LYMPHATIC: No anemia, easy bleeding, or history of blood clots. ALLERGIC/IMMUNOLOGIC: No hives or skin allergy. *Physical Exam - Vital Signs Last Vital Signs Temp Pulse Resp BP Pulse Ox 97.3 F L 80 18 106/69 95 02/08/19 19:50 02/08/19 19:50 02/08/19 19:50 02/08/19 19:50 02/08/19 19:50 - Physical Exam 02/08/19 21:29 GENERAL:. Awake, alert, and fully oriented, in no acute distress HEAD: No signs of trauma NECK: Normal ROM, supple, no lymphadenopathy, JVD, or masses LUNGS: Breath sounds equal, clear to auscultation bilaterally. No wheezes, and no crackles HEART: +Heart murmur. Regular rate and rhythm, normal S1 and S2, no rubs or gallops ABDOMEN: +Distended belly, distended bladder, Soft, nontender, normoactive bowel sounds. No guarding, no rebound. No masses EXTREMITIES: +lower extremity pitting edema. No clubbing or cyanosis. No cords , erythema, or tenderness NEUROLOGICAL: +Paraplegia Cranial nerves II through XII grossly intact. Normal speech SKIN: +Sacral decubitus ulcers. Warm, Dry, normal turgor, no rashes. ED Treatment Course - LABORATORY CBC & Chemistry Diagram: 02/12/19 10:40 02/12/19 10:40 Medical Decision Making - Medical Decision Making 02/08/19 20:36 53-year-old male brought in by ambulance from the [facility] for shortness of breath. See the past medical history for paraplegia, neurogenic dysfunction of the bladder, indwelling Hull and nephrostomy tube. 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 and does get enemas intermittently Patient also has a history of GERD, pressure ulcers and peritoneal abscess UTI and antibiotics ordered Patient is getting imaging study concern for fecal mpaction,sbo, volvulus Discharge - Discharge Information Problems reviewed: Yes Clinical Impression/Diagnosis: Chronic indwelling Hull catheter UTI (urinary tract infection) Qualifiers: Urinary tract infection type: site unspecified Hematuria presence: with hematuria Qualified Code(s): N39.0 - Urinary tract infection, site not specified Constipation Qualifiers: Constipation type: unspecified constipation type Qualified Code(s): K59.00 - Constipation, unspecified Condition: Stable - Follow up/Referral - Patient Discharge Instructions - Post Discharge Activity
[2019-02-08 22:34] LABS: EPI CELLS 1.9 /HPF (0-5/HPF); HYALINE CASTS 8 /lpf (0-8); PH,URINE >= 9.0 (5.0-8.0); URINE APPEARANCE TURBID; URINE BACTERIA 2458.1 /hpf (NEGATIVE); URINE BILIRUBIN NEGATIVE (NEGATIVE); URINE COLOR YELLOW; URINE GLUCOSE (UA) NEGATIVE (NEGATIVE); URINE KETONE NEGATIVE (NEGATIVE); URINE LEUK ESTERASE 3+ (NEGATIVE); URINE NITRITE POSITIVE (NEGATIVE); URINE PROTEIN 2+ (NEGATIVE); URINE RBC 5 /hpf (0-4); URINE UROBILINOGEN 0.2 mg/dL (0.2-1.0); URINE WBC 292 /hpf (0-5)
[2019-02-08] MEDS ORDERED: CEFTRIAXONE 1,000 MG in DEXTROSE 5%-WATER - 50 ML IVPB STA (23:18)
[2019-02-09 00:19] LABS: ALBUMIN 3.1 g/dl (3.4-5.0); ALK PHOS 104 U/L (45-117); ANION GAP 5 MMOL/L (8-16); BILIRUBIN,TOTAL 0.3 mg/dL (0.2-1); BLOOD UREA NITROGEN 32.4 mg/dL (7-18); CALCIUM 9.6 mg/dL (8.5-10.1); CHLORIDE 106 mmol/L (98-107); CO2 29 mmol/L (21-32); CREATININE 0.7 mg/dL (0.55-1.3); GLUCOSE,RANDOM 55 mg/dL (74-106); POTASSIUM 5.2 mmol/L (3.5-5.1); SGOT/AST 32 U/L (15-37); SGPT/ALT 13 U/L (13-61); SODIUM 140 mmol/L (136-145); TOT PROT 8.3 g/dl (6.4-8.2)
[2019-02-09] MEDS ORDERED: CEFTRIAXONE 1 GM/50 ML BAG ONE (00:31)
[2019-02-09 01:15] LABS: BASO % 0.6 % (0-2.0); EOS % 3.3 % (0-4.5); HEMATOCRIT 39.5 % (35.4-49); HEMOGLOBIN 12.6 GM/dL (11.7-16.9); LYMPH % 23.2 % (8-40); MCH 26.6 pg (25.7-33.7); MCHC 31.8 g/dl (32.0-35.9); MEAN CELL VOLUME 83.6 fl (80-96); MEAN PLT VOLUME 8.5 fl (7.5-11.1); MONO % 11.8 % (3.8-10.2); NEUT % 61.1 % (42.8-82.8); PLATELET COUNT 244 K/MM3 (134-434); RBC 4.73 M/mm3 (4.00-5.60); RDW 18.8 % (11.9-15.9); WHITE BLOOD COUNT 6.7 K/mm3 (4.0-10.0)
[2019-02-09 01:27] LABS: INR 1.07 (0.83-1.09); PROTHROMBIN TIME (PATIENT) 12.6 SEC (9.7-13.0)
[2019-02-09] MEDS ORDERED: MEROPENEM 1 GM in DEXTROSE 5%-WATER 100 ML IVPB ONE ×2 (02:23→08:11)
--- NOTE | 2019-02-09 08:47 | PDOC ---
*Physical Exam - Vital Signs Last Vital Signs Temp Pulse Resp BP Pulse Ox 97.3 F L 78 18 103/64 97 02/09/19 06:57 02/09/19 06:57 02/09/19 06:57 02/09/19 06:57 02/09/19 06:57 - Physical Exam Comments: 02/09/19 09:05 General Appearance: Nourished. No Apparent Distress HEENT: No Pharyngeal Erythema, Tonsillar Exudate, Tonsillar Erythema Neck: No Cervical Lymphadenopathy Respiratory/Chest: Lungs Clear, Normal Breath Sounds. No Crackles, Rales, Rhonchi, Wheezing Cardiovascular: Regular Rhythm, Regular Rate. Systolic murmur noted on exam. No Gallops, Rubs Gastrointestinal/Abdominal: Normal Bowel Sounds, Soft. No Guarding, Rebound, Tenderness Musculoskeletal: No CVA Tenderness Extremity: 2+ edema to the lower extremitites bilaterally. Normal Capillary Refill Integumentary: Sacral Decubitis Ulcer noted. Normal Color, Dry, Warm Neurologic: drafter geological II-XII NML intact, Fully Oriented, Alert, Normal Mood/Affect, Normal Response, Motor Strength 5/5 in the upper extremities. Paraplegia in the lower extremities. . ED Treatment Course - LABORATORY CBC & Chemistry Diagram: 02/09/19 00:05 02/08/19 23:15 - ADDITIONAL ORDERS Additional order review: Laboratory Results 02/09/19 02/09/19 02/09/19 00:35 00:05 00:05 WBC 6.7 Corrected WBC (auto) RBC 4.73 Hgb 12.6 Hct 39.5 D MCV 83.6 MCH 26.6 MCHC 31.8 L RDW 18.8 H Plt Count 244 D MPV 8.5 Absolute Neuts (auto) 4.1 Neutrophils % 61.1 Lymphocytes % 23.2 Monocytes % 11.8 H Eosinophils % 3.3 Basophils % 0.6 Nucleated RBC % 0 Platelet Estimate Platelet Comment PT with INR 12.60 INR 1.07 VBG pH POC VBG pCO2 POC VBG pO2 VBG HCO3 VBG O2 Sat (Keegan) VBG Base Excess Sodium Potassium Chloride Carbon Dioxide Anion Gap BUN Creatinine Est GFR (CKD-EPI)AfAm Est GFR (CKD-EPI)NonAf Random Glucose Lactic Acid 2.0 Calcium Total Bilirubin AST ALT Alkaline Phosphatase Troponin I Total Protein Albumin Urine Color Urine Appearance Urine pH Ur Specific [place] Urine Protein Urine Glucose (UA) Urine Ketones Urine Blood Urine Nitrite Urine Bilirubin Urine Urobilinogen Ur Leukocyte Esterase Urine WBC (Auto) Urine RBC (Auto) Urine Casts (Auto) U Epithel Cells (Auto) Urine Bacteria (Auto) 02/08/19 02/08/19 02/08/19 23:15 23:15 23:15 WBC Corrected WBC (auto) RBC Hgb Hct MCV MCH MCHC RDW Plt Count MPV Absolute Neuts (auto) Neutrophils % Lymphocytes % Monocytes % Eosinophils % Basophils % Nucleated RBC % Platelet Estimate Platelet Comment PT with INR INR VBG pH Cancelled POC VBG pCO2 Cancelled POC VBG pO2 Cancelled VBG HCO3 Cancelled VBG O2 Sat (Keegan) Cancelled VBG Base Excess Cancelled Sodium 140 Potassium 5.2 H Chloride 106 Carbon Dioxide 29 Anion Gap 5 L BUN 32.4 H Creatinine 0.7 Est GFR (CKD-EPI)AfAm 126.64 Est GFR (CKD-EPI)NonAf 109.27 Random Glucose 55 L Lactic Acid 1.1 Calcium 9.6 Total Bilirubin 0.3 AST 32 ALT 13 Alkaline Phosphatase 104 Troponin I < 0.02 Total Protein 8.3 H Albumin 3.1 L Urine Color Urine Appearance Urine pH Ur Specific [place] Urine Protein Urine Glucose (UA) Urine Ketones Urine Blood Urine Nitrite Urine Bilirubin Urine Urobilinogen Ur Leukocyte Esterase Urine WBC (Auto) Urine RBC (Auto) Urine Casts (Auto) U Epithel Cells (Auto) Urine Bacteria (Auto) 02/08/19 02/08/19 23:15 20:25 WBC Cancelled Corrected WBC (auto) Cancelled RBC Cancelled Hgb Cancelled Hct Cancelled MCV Cancelled MCH Cancelled MCHC Cancelled RDW Cancelled Plt Count Cancelled MPV Cancelled Absolute Neuts (auto) Cancelled Neutrophils % Cancelled Lymphocytes % Cancelled Monocytes % Cancelled Eosinophils % Cancelled Basophils % Cancelled Nucleated RBC % Cancelled Platelet Estimate Cancelled Platelet Comment Cancelled PT with INR INR VBG pH POC VBG pCO2 POC VBG pO2 VBG HCO3 VBG O2 Sat (Keegan) VBG Base Excess Sodium Potassium Chloride Carbon Dioxide Anion Gap BUN Creatinine Est GFR (CKD-EPI)AfAm Est GFR (CKD-EPI)NonAf Random Glucose Lactic Acid Calcium Total Bilirubin AST ALT Alkaline Phosphatase Troponin I Total Protein Albumin Urine Color Yellow Urine Appearance Turbid Urine pH >= 9.0 H D Ur Specific [place] 1.013 Urine Protein 2+ H Urine Glucose (UA) Negative Urine Ketones Negative Urine Blood 1+ H Urine Nitrite Positive H Urine Bilirubin Negative Urine Urobilinogen 0.2 Ur Leukocyte Esterase 3+ H Urine WBC (Auto) 292 Urine RBC (Auto) 5 Urine Casts (Auto) 8 U Epithel Cells (Auto) 1.9 Urine Bacteria (Auto) 2458.1 02/09/19 02/08/19 00:05 23:15 RBC 4.73 Cancelled MCV 83.6 Cancelled MCHC 31.8 L Cancelled RDW 18.8 H Cancelled MPV 8.5 Cancelled Neutrophils % 61.1 Cancelled Lymphocytes % 23.2 Cancelled Monocytes % 11.8 H Cancelled Eosinophils % 3.3 Cancelled Basophils % 0.6 Cancelled - Medications Given in the ED: ED Medications Discontinued Medications Generic Name Dose Route Start Last Admin Trade Name Freq PRN Reason Stop Dose Admin Sodium Chloride 1,000 mls @ 1,000 mls/hr 02/08/19 22:16 02/09/19 05:04 Normal Saline - IV 02/08/19 23:15 Not Given ASDIR STA Ceftriaxone Sodium 1,000 mg/ 50 mls @ 100 mls/hr 02/08/19 23:18 02/09/19 05: 05 Dextrose IVPB 02/08/19 23:47 Not Given ONCE STA Meropenem 1 gm/ Dextrose 100 mls @ 200 mls/hr 02/09/19 02:23 02/09/19 06:39 IVPB 02/09/19 02:52 Not Given ONCE ONE ED Progress Note - Progress Note Progress Note: 02/09/19 08:39 The patient is a 53 year old male with history of paraplegia and recurrent UTI who presents for evaluation of several days of abdominal distension and cloudy urine. CBC, cmp were unremarkable. UA demonstrated positive nitrites and leuk esterase with elevated wbc and Ph to 9 consistent with a UTI. The patient has had ESBL klebsiella and VRE in the past on prior urine cultures. We will treat with meropenem and the patient will require admission for further management. CT abdomen/pelvis demonstrated large air and feces in a markedly dilated colon repressenting chronic constipation/fecal impaction as read by our radiologist. The patient will likely need GI consultation for further management as well. Discharge - Discharge Information Problems reviewed: Yes Clinical Impression/Diagnosis: Chronic indwelling Pelaez catheter UTI (urinary tract infection) Qualifiers: Urinary tract infection type: site unspecified Hematuria presence: with hematuria Qualified Code(s): N39.0 - Urinary tract infection, site not specified Constipation Qualifiers: Constipation type: unspecified constipation type Qualified Code(s): K59.00 - Constipation, unspecified Condition: Stable - Admission Yes - Follow up/Referral - Patient Discharge Instructions - Post Discharge Activity
[2019-02-09] MEDS ORDERED: METHYL SALICYLATE/MENTHOL OINT 30 GM TUBE TP PRN (09:25)
--- NOTE | 2019-02-09 10:17 | EKG ---
Test Reason : Blood Pressure : / mmHG Vent. Rate : 071 BPM Atrial Rate : 071 BPM P-R Int : 154 ms QRS Dur : 108 ms QT Int : 400 ms P-R-T Axes : 054 041 039 degrees QTc Int : 434 ms NORMAL SINUS RHYTHM POSSIBLE LEFT ATRIAL ENLARGEMENT LATERAL INFARCT (CITED ON OR BEFORE 12-MAY-2017) ABNORMAL ECG WHEN COMPARED WITH ECG OF 13-MAY-2017 09:41, NO SIGNIFICANT CHANGE WAS FOUND Confirmed by BRIDGET BRABER MD ([id number]) on 02/09/2019 10:17:00 AM Referred By: Confirmed By:BRIDGET BARBER MD
--- NOTE | 2019-02-09 10:38 | PN ---
Progress Note (short form) - Note Progress Note: called for consult. Mr. Palacio fired me from his case years ago. Advised CLAIRE Abdul to change consult to change consult to alternate black off worker. it appears as though he was following with Drs. Beckford/Rosendo.
--- NOTE | 2019-02-09 10:49 | HP ---
Admitting History and Physical - Primary Care Physician PCP: [facility] - Admission Chief Complaint: Abdominal Distention History of Present Illness: Patient is a 53 y/o male with past medical history of T6 paraplegia with neurogenic bladder and indwelling catheter, Nephrolithiasis (s/p lithotripsy and ureteral stent), recurrent UTIs, chronic constipation, left peritoneal/ ilopsoas abscess drainage catheter in place. Patient presented from SNF for urinary retention, cloudy urine, and abdominal distention for 2 days. Patient also complained of experiencing fever, chills, SOB and lightheadedness. History Source: Patient Limitations to Obtaining History: No Limitations - Past Medical History Pulmonary: Yes: COPD Gastrointestinal: Yes: Constipation (Neurogenic bowel with persistent obstipation and megasigmoid), GI Bleed, Other (Hirschsprung's disease, neurogenic bowel) Hepatobiliary: Yes: Cholelithiasis Renal/: Yes: Neurogenic Bladder (indwelling Pelaez), Renal Calculi (bilateral staghorn with h/o obstructions and other calculi), UTI, Other (JJ bilat stents, permanent Pelaez; partially duplicated left renal collecting system) Heme/Onc: Yes: Anemia Infectious Disease: Yes: MRSA, Other (ESBL, resistant organisms, multiple abx courses; recurrent L retroperitoneal -> flank abscess secondary to urinary overflow from kidney s/p multiple percutaneous interventions with intermittent hydronephrosis) Musculoskeletal: Yes: Paraplegia (T6 level), Other (multiple sacral and ischial decubiti) - Past Surgical History Past Surgical History: Yes: Stent (bilateral ureteral stents - multiple exchanges) - Smoking History Smoking history: Current every day smoker Have you smoked in the past 12 months: No Aproximately how many cigarettes per day: 20 If you are a former smoker, when did you quit?: 03/2014 - Alcohol/Substance Use Hx Alcohol Use: No History of Substance Use: reports: None (for at least a year) - Social History Usual Living Arrangement: Yes: Group Home ADL: Support Services (his mother lives in the same house also has home health aides) History of Recent Travel: No Home Medications - Allergies Allergies/Adverse Reactions: Allergies Allergy/AdvReac Type Severity Reaction Status Date / Time ampicillin Allergy Mild Itching Verified 02/09/19 05:30 polymyxin B Allergy Mild Itching Verified 02/09/19 05:30 - Home Medications Home Medications: Ambulatory Orders Multivitamin [Multiple Vitamins] 1 tab PO DAILY 08/04/18 Acetaminophen [Tylenol .Regular Strength -] 650 mg PO Q6H PRN tablet 09/09/18 Docusate Sodium [Colace -] 100 mg PO BID capsule 09/09/18 Heparin - 5,000 unit SQ BID vial 09/09/18 Magnesium Hydrox 2400MG/30Ml [Milk of Magnesia -] 30 ml PO DAILY PRN cup Methyl Salicylate/Menthol Oint [Analgesic [place] -] 1 applic TP Q6H PRN applic Ranitidine [Zantac -] 150 mg PO DAILY tablet 09/09/18 Sennosides [Senna -] 2 tab PO HS tablet 09/09/18 Simethicone [Mylicon -] 80 mg PO Q4H PRN tab.chew 09/09/18 Review of Systems - Review of Systems Constitutional: reports: Weakness Eyes: reports: Blurred Vision HENT: reports: No Symptoms Neck: reports: No Symptoms Cardiovascular: reports: No Symptoms Respiratory: reports: SOB Gastrointestinal: reports: Constipation Genitourinary: reports: Other (urine retention) Breasts: reports: No Symptoms Reported Musculoskeletal: reports: No Symptoms Integumentary: reports: No Symptoms Neurological: reports: Dizziness Endocrine: reports: No Symptoms Hematology/Lymphatic: reports: No Symptoms Psychiatric: reports: No Symptoms Physical Examination Vital Signs: Vital Signs Temperature 97.3 F L 02/09/19 06:57 Pulse Rate 80 02/09/19 09:45 Respiratory Rate 16 02/09/19 09:45 Blood Pressure 96/70 02/09/19 09:45 O2 Sat by Pulse Oximetry (%) 95 02/09/19 09:45 Constitutional: Yes: No Distress, Calm Eyes: Yes: Conjunctiva Clear HENT: Yes: Atraumatic Cardiovascular: Yes: Regular Rate and Rhythm Respiratory: Yes: Regular, CTA Bilaterally Gastrointestinal: Yes: Normal Bowel Sounds, Soft, Distention Renal/: Yes: Pelaez Present, Other (Left nephrostomy tube) Musculoskeletal: Yes: Muscle Weakness Extremities: Yes: WNL Edema: No Neurological: Yes: Alert, Oriented, Other (paraplegia) Psychiatric: Yes: Alert, Oriented Labs: CBC, BMP 02/09/19 00:05 02/08/19 23:15 Imaging - Results Cat Scan: Report Reviewed Problem List - Problems (1) Chronic indwelling Pelaez catheter Assessment/Plan: -2/2 neurogenic bladder -Urology Consult Code(s): Z92.89 - PERSONAL HISTORY OF OTHER MEDICAL TREATMENT (2) Constipated Assessment/Plan: -GI consult -Senna, Colace Code(s): K59.00 - CONSTIPATION, UNSPECIFIED Qualifiers: Constipation type: unspecified constipation type Qualified Code(s): K59.00 - Constipation, unspecified (3) UTI (urinary tract infection) Assessment/Plan: -ID consult -UA 3+ leuks, + nitrites, 1+ blood , 2+ protein -UC pending -received Meropenem in ER -no leukocytosis -afebrile Code(s): N39.0 - URINARY TRACT INFECTION, SITE NOT SPECIFIED Qualifiers: Urinary tract infection type: site unspecified Hematuria presence: with hematuria Qualified Code(s): N39.0 - Urinary tract infection, site not specified; R31.9 - Hematuria, unspecified (4) COPD (chronic obstructive pulmonary disease) Assessment/Plan: -Bronchodilators -Keep SpO2 >90% -O2 via NC -Pulm consult Code(s): J44.9 - CHRONIC OBSTRUCTIVE PULMONARY DISEASE, UNSPECIFIED Qualifiers: COPD type: unspecified COPD Qualified Code(s): J44.9 - Chronic obstructive pulmonary disease, unspecified (5) Neurogenic bladder Assessment/Plan: -Urology consult Code(s): N31.9 - NEUROMUSCULAR DYSFUNCTION OF BLADDER, UNSPECIFIED (6) Weakness Assessment/Plan: -Fall risk -PT Code(s): R53.1 - WEAKNESS (7) JOSE CRUZ (acute kidney injury) Assessment/Plan: -BUN/Cr 32.4/0.7 -monitor renal function -Renal consult Code(s): N17.9 - ACUTE KIDNEY FAILURE, UNSPECIFIED (8) MDRO (multiple drug resistant organisms) resistance Assessment/Plan: -contact precaution Code(s): Z16.35 - RESISTANCE TO MULTIPLE ANTIMICROBIAL DRUGS Assessment/Plan problem list dvt ppx
[2019-02-09] MEDS: MULTIVITAMINS (DAILY MVI) TABLET (FP) PO SCH (11:08)
[2019-02-09] MEDS: DOCUSATE SODIUM 100 MG CAPSULE (FP) PO SCH ×2 (11:08→21:36)
[2019-02-09] MEDS: HEPARIN NA (PORCINE) 5,000 UNITS/ML 1ML VIAL SQ SCH ×2 (11:08→21:36)
--- NOTE | 2019-02-09 12:11 | CON.ID ---
Consult Consult Specialty:: infectious disease Referred by:: dr dudley Reason for Consultation:: cloudy urine - History of Present Illness Chief Complaint: abdominal distention History of Present Illness: 53 year old man paraplegic with chronic hull last changed end of December, left PCN (chronic) admitted from [facility] for increased abdominal distention found to have fecal impaction on ct scan no fevers or chills no other complaints - History Source History Provided By: Patient Limitations to Obtaining History: No Limitations - Past Medical History Pulmonary: Yes: COPD Gastrointestinal: Yes: Constipation (Neurogenic bowel with persistent obstipation and megasigmoid), GI Bleed, Other (Hirschsprung's disease, neurogenic bowel) Hepatobiliary: Yes: Cholelithiasis Renal/: Yes: Neurogenic Bladder (indwelling [place]), Renal Calculi (bilateral staghorn with h/o obstructions and other calculi), UTI, Other (JJ bilat stents, permanent Hull; partially duplicated left renal collecting system) Infectious Disease: Yes: MRSA, Other (ESBL, resistant organisms, multiple abx courses; recurrent L retroperitoneal -> flank abscess secondary to urinary overflow from kidney s/p multiple percutaneous interventions with intermittent hydronephrosis) Musculoskeletal: Yes: Paraplegia (T6 level), Other (multiple sacral and ischial decubiti) - Past Surgical History Past Surgical History: Yes: Stent (bilateral ureteral stents - multiple exchanges) Additional Surgical History: PCN - Alcohol/Substance Use Hx Alcohol Use: No History of Substance Use: reports: None (for at least a year) - Smoking History Smoking history: Current every day smoker Have you smoked in the past 12 months: No Aproximately how many cigarettes per day: 20 If you are a former smoker, when did you quit?: 03/2014 - Social History Usual Living Arrangement: With Parent ADL: Support Services (his mother lives in the same house also has home health aides) History of Recent Travel: No Home Medications - Allergies Allergies/Adverse Reactions: Allergies Allergy/AdvReac Type Severity Reaction Status Date / Time ampicillin Allergy Mild Itching Verified 02/09/19 05:30 polymyxin B Allergy Mild Itching Verified 02/09/19 05:30 - Home Medications Home Medications: Ambulatory Orders Multivitamin [Multiple Vitamins] 1 tab PO DAILY 08/04/18 Acetaminophen [Tylenol .Regular Strength -] 650 mg PO Q6H PRN tablet 09/09/18 Docusate Sodium [Colace -] 100 mg PO BID capsule 09/09/18 Heparin - 5,000 unit SQ BID vial 09/09/18 Magnesium Hydrox 2400MG/30Ml [Milk of Magnesia -] 30 ml PO DAILY PRN cup Methyl Salicylate/Menthol Oint [Analgesic [place] -] 1 applic TP Q6H PRN applic Ranitidine [Zantac -] 150 mg PO DAILY tablet 09/09/18 Sennosides [Senna -] 2 tab PO HS tablet 09/09/18 Simethicone [Mylicon -] 80 mg PO Q4H PRN tab.chew 09/09/18 Physical Exam Vital Signs: Vital Signs Temperature 97.3 F L 02/09/19 06:57 Pulse Rate 80 02/09/19 09:45 Respiratory Rate 16 02/09/19 09:45 Blood Pressure 96/70 02/09/19 09:45 O2 Sat by Pulse Oximetry (%) 95 02/09/19 09:45 Labs: CBC, BMP 02/09/19 00:05 02/08/19 23:15 Problem List - Problems (1) Fecal impaction Code(s): K56.41 - FECAL IMPACTION (2) Chronic indwelling Hull catheter Code(s): Z92.89 - PERSONAL HISTORY OF OTHER MEDICAL TREATMENT (3) Bilateral nephrolithiasis Code(s): N20.0 - CALCULUS OF KIDNEY (4) Multiple drug resistant organism (MDRO) culture positive Code(s): Z16.24 - RESISTANCE TO MULTIPLE ANTIBIOTICS Assessment/Plan no fevers no leukocytosis to suggest infection-no need for antibiotics at this time would evaluate his fecal retention urine culture from his chronic hull will always grow bacteria- no need to treat unless symptomatic would refer him back to urologist at [facility] history of MDRO- contact isolation
[2019-02-09 16:29] VITALS: BMI 22.7
[2019-02-09] MEDS ORDERED: ALBUTEROL SO4 0.083% IH SOL 2.5 MG/3 ML VIAL.NEB. NEB PRN (19:42)
[2019-02-09] MEDS: SENNOSIDES 8.6MG TABLET (FP) PO SCH (21:36)
[2019-02-10] MEDS ORDERED: ACETAMINOPHEN 325 MG TABLET (FP) PO ONE (00:12)
[2019-02-10] MEDS: SIMETHICONE 80 MG TAB.CHEW (FP) PO PRN ×2 (00:17→11:17)
[2019-02-10 02:09] LABS: BILIRUBIN,TOTAL 0.3 mg/dL (0.2-1); BLOOD UREA NITROGEN 32.2 mg/dL (7-18); CALCIUM 8.9 mg/dL (8.5-10.1); POTASSIUM 4.1 mmol/L (3.5-5.1); TOT PROT 7.6 g/dl (6.4-8.2)
[2019-02-10 08:04] LABS: BASO % 0.4 % (0-2.0); EOS % 1.1 % (0-4.5); HEMATOCRIT 35.2 % (35.4-49); HEMOGLOBIN 11.3 GM/dL (11.7-16.9); LYMPH % 11.5 % (8-40); MCH 27.1 pg (25.7-33.7); MCHC 32.2 g/dl (32.0-35.9); MEAN CELL VOLUME 84.1 fl (80-96); MEAN PLT VOLUME 8.3 fl (7.5-11.1); MONO % 10.1 % (3.8-10.2); NEUT % 76.9 % (42.8-82.8); RBC 4.18 M/mm3 (4.00-5.60); RDW 18.4 % (11.9-15.9)
--- NOTE | 2019-02-10 08:21 | CON.GU ---
Consult Consult Specialty:: - History of Present Illness Chief Complaint: abd distention History of Present Illness: 53 y/o male with past medical history of T6 paraplegia with neurogenic bladder and indwelling catheter, Nephrolithiasis (s/p lithotripsy and ureteral stent), recurrent UTIs, chronic constipation, s/p left retroperitoneal/iliopsoas abscess drainage, s/p L PCN. Patient presented from SNF for urinary retention, cloudy urine, and abdominal distention for 2 days. Patient also complained of experiencing fever, chills, SOB and lightheadedness. cons req. - History Source History Provided By: Patient, Medical Record - Past Medical History Pulmonary: Yes: COPD Gastrointestinal: Yes: Constipation (Neurogenic bowel with persistent obstipation and megasigmoid), GI Bleed, Other (Hirschsprung's disease, neurogenic bowel) Hepatobiliary: Yes: Cholelithiasis Renal/: Yes: Neurogenic Bladder (indwelling Hull), Renal Calculi (bilateral staghorn with h/o obstructions and other calculi), UTI, Other (JJ bilat stents, permanent Hull; partially duplicated left renal collecting system) Infectious Disease: Yes: MRSA, Other (ESBL, resistant organisms, multiple abx courses; recurrent L retroperitoneal -> flank abscess secondary to urinary overflow from kidney s/p multiple percutaneous interventions with intermittent hydronephrosis) Musculoskeletal: Yes: Paraplegia (T6 level), Other (multiple sacral and ischial decubiti) - Past Surgical History Past Surgical History: Yes: Stent (bilateral ureteral stents - multiple exchanges) Additional Surgical History: PCN - Alcohol/Substance Use Hx Alcohol Use: No History of Substance Use: reports: None (for at least a year) - Smoking History Smoking history: Current every day smoker Have you smoked in the past 12 months: No Aproximately how many cigarettes per day: 20 If you are a former smoker, when did you quit?: 03/2014 - Social History Usual Living Arrangement: With Parent ADL: Support Services (his mother lives in the same house also has home health aides) History of Recent Travel: No Home Medications - Allergies Allergies/Adverse Reactions: Allergies Allergy/AdvReac Type Severity Reaction Status Date / Time ampicillin Allergy Mild Itching Verified 02/09/19 05:30 polymyxin B Allergy Mild Itching Verified 02/09/19 05:30 - Home Medications Home Medications: Ambulatory Orders Multivitamin [Multiple Vitamins] 1 tab PO DAILY 08/04/18 Acetaminophen [Tylenol .Regular Strength -] 650 mg PO Q6H PRN tablet 09/09/18 Docusate Sodium [Colace -] 100 mg PO BID capsule 09/09/18 Heparin - 5,000 unit SQ BID vial 09/09/18 Magnesium Hydrox 2400MG/30Ml [Milk of Magnesia -] 30 ml PO DAILY PRN cup Methyl Salicylate/Menthol Oint [Analgesic [place] -] 1 applic TP Q6H PRN applic Ranitidine [Zantac -] 150 mg PO DAILY tablet 09/09/18 Sennosides [Senna -] 2 tab PO HS tablet 09/09/18 Simethicone [Mylicon -] 80 mg PO Q4H PRN tab.chew 09/09/18 Review of Systems - Review of Systems Constitutional: reports: Chills, Fever Gastrointestinal: reports: Constipation Genitourinary: reports: Flank Pain Physical Exam- Vital Signs: Vital Signs Temperature 97.9 F 02/10/19 07:47 Pulse Rate 83 02/10/19 07:47 Respiratory Rate 20 02/10/19 07:47 Blood Pressure 102/65 02/10/19 07:47 O2 Sat by Pulse Oximetry (%) 98 02/09/19 21:00 Gastrointestinal: Yes: Distention, Tenderness Renal/: Yes: Hull Present (cloudy urine), Other (L nephrostomy) Imaging - Results Cat Scan: Report Reviewed, Image Reviewed Problem List - Problems (1) Constipated Assessment/Plan: bowel cleansing Code(s): K59.00 - CONSTIPATION, UNSPECIFIED Qualifiers: Constipation type: unspecified constipation type Qualified Code(s): K59.00 - Constipation, unspecified (2) UTI (urinary tract infection) Assessment/Plan: ur cx, iv abxs Code(s): N39.0 - URINARY TRACT INFECTION, SITE NOT SPECIFIED Qualifiers: Urinary tract infection type: site unspecified Hematuria presence: with hematuria Qualified Code(s): N39.0 - Urinary tract infection, site not specified; R31.9 - Hematuria, unspecified (3) Bilateral hydronephrosis Assessment/Plan: f/u for L neph tube change as outpt Code(s): N13.30 - UNSPECIFIED HYDRONEPHROSIS (4) Bilateral nephrolithiasis Code(s): N20.0 - CALCULUS OF KIDNEY (5) Fecal impaction Code(s): K56.41 - FECAL IMPACTION (6) Neurogenic bladder Assessment/Plan: 18 fr hull changed Code(s): N31.9 - NEUROMUSCULAR DYSFUNCTION OF BLADDER, UNSPECIFIED
[2019-02-10 08:45] LABS: ALBUMIN 2.9 g/dl (3.4-5.0); BILIRUBIN,TOTAL 0.4 mg/dL (0.2-1); BLOOD UREA NITROGEN 29.1 mg/dL (7-18); CALCIUM 8.9 mg/dL (8.5-10.1); MAGNESIUM 2.4 mg/dL (1.8-2.4); PHOSPHOROUS 3.5 mg/dL (2.5-4.9); TOT PROT 7.3 g/dl (6.4-8.2)
--- NOTE | 2019-02-10 09:14 | CON.PULM ---
Consult Consult Specialty:: PULMONARY Referred by:: MILLA Reason for Consultation:: SOB - History of Present Illness Chief Complaint: SOB History of Present Illness: Patient is a 53 y/o male with past medical history of T6 paraplegia with neurogenic bladder and indwelling catheter, Nephrolithiasis (s/p lithotripsy and ureteral stent), recurrent UTIs, chronic constipation, left peritoneal/ ilopsoas abscess drainage catheter in place. Patient presented from SNF for urinary retention, cloudy urine, and abdominal distention for 2 days. 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: No: Alzheimer's Cardio/Vascular: No: AFIB Pulmonary: Yes: COPD Gastrointestinal: Yes: Constipation (Neurogenic bowel with persistent obstipation and megasigmoid), GI Bleed, Other (Hirschsprung's disease, neurogenic bowel) Hepatobiliary: Yes: Cholelithiasis Renal/: Yes: Neurogenic Bladder (indwelling Pelaez), Renal Calculi (bilateral staghorn with h/o obstructions and other calculi), UTI, Other (JJ bilat stents, permanent Pelaez; partially duplicated left renal collecting system) Infectious Disease: Yes: MRSA, Other (ESBL, resistant organisms, multiple abx courses; recurrent L retroperitoneal -> flank abscess secondary to urinary overflow from kidney s/p multiple percutaneous interventions with intermittent hydronephrosis) Musculoskeletal: Yes: Paraplegia (T6 level), Other (multiple sacral and ischial decubiti) - Past Surgical History Past Surgical History: Yes: Stent (bilateral ureteral stents - multiple exchanges) Additional Surgical History: PCN - Alcohol/Substance Use Hx Alcohol Use: No History of Substance Use: reports: None (for at least a year) - Smoking History Smoking history: Current every day smoker Have you smoked in the past 12 months: No Aproximately how many cigarettes per day: 20 If you are a former smoker, when did you quit?: 03/2014 - Social History Usual Living Arrangement: With Parent ADL: Support Services (his mother lives in the same house also has home health aides) History of Recent Travel: No Home Medications - Allergies Allergies/Adverse Reactions: Allergies Allergy/AdvReac Type Severity Reaction Status Date / Time ampicillin Allergy Mild Itching Verified 02/09/19 05:30 polymyxin B Allergy Mild Itching Verified 02/09/19 05:30 - Home Medications Home Medications: Ambulatory Orders Multivitamin [Multiple Vitamins] 1 tab PO DAILY 08/04/18 Acetaminophen [Tylenol .Regular Strength -] 650 mg PO Q6H PRN tablet 09/09/18 Docusate Sodium [Colace -] 100 mg PO BID capsule 09/09/18 Heparin - 5,000 unit SQ BID vial 09/09/18 Magnesium Hydrox 2400MG/30Ml [Milk of Magnesia -] 30 ml PO DAILY PRN cup Methyl Salicylate/Menthol Oint [Analgesic [place] -] 1 applic TP Q6H PRN applic Ranitidine [Zantac -] 150 mg PO DAILY tablet 09/09/18 Sennosides [Senna -] 2 tab PO HS tablet 09/09/18 Simethicone [Mylicon -] 80 mg PO Q4H PRN tab.chew 09/09/18 Family Medical History Family History: Unremarkable Review of Systems - Review of Systems Constitutional: denies: Fever Eyes: denies: Blurred Vision HENT: denies: Difficult Swallowing Neck: denies: Decreased ROM Cardiovascular: denies: Chest Pain Respiratory: reports: SOB. denies: Cough, Hemoptysis, Wheezing Gastrointestinal: reports: Bloating, Constipation, Other (ABD DISTENTION) Physical Exam Vital Sings: Vital Signs Temperature 97.9 F 02/10/19 07:47 Pulse Rate 83 02/10/19 07:47 Respiratory Rate 20 02/10/19 07:47 Blood Pressure 102/65 02/10/19 07:47 O2 Sat by Pulse Oximetry (%) 98 02/09/19 21:00 Constitutional: Yes: Calm Eyes: Yes: EOM Intact HENT: Yes: Normocephalic Neck: Yes: Trachea Midline Cardiovascular: Yes: S1, S2 Respiratory: Yes: CTA Bilaterally Gastrointestinal: Yes: Distention, Hyperactive Bowel Sounds Edema: No Neurological: Yes: Other (PARAPLEGIA) Labs: CBC, BMP 02/10/19 07:10 02/10/19 07:10 Imaging - Results Chest X-ray: Report Reviewed, Image Reviewed Cat Scan: Report Reviewed Problem List - Problems (1) Chronic indwelling Pelaez catheter Code(s): Z92.89 - PERSONAL HISTORY OF OTHER MEDICAL TREATMENT (2) Constipated Code(s): K59.00 - CONSTIPATION, UNSPECIFIED Qualifiers: Constipation type: unspecified constipation type Qualified Code(s): K59.00 - Constipation, unspecified (3) Neurogenic bladder Code(s): N31.9 - NEUROMUSCULAR DYSFUNCTION OF BLADDER, UNSPECIFIED (4) UTI (urinary tract infection) Code(s): N39.0 - URINARY TRACT INFECTION, SITE NOT SPECIFIED Qualifiers: Urinary tract infection type: site unspecified Hematuria presence: with hematuria Qualified Code(s): N39.0 - Urinary tract infection, site not specified; R31.9 - Hematuria, unspecified (5) Acquired functional megacolon Code(s): K59.39 - OTHER MEGACOLON (6) COPD (chronic obstructive pulmonary disease) Code(s): J44.9 - CHRONIC OBSTRUCTIVE PULMONARY DISEASE, UNSPECIFIED Qualifiers: COPD type: unspecified COPD Qualified Code(s): J44.9 - Chronic obstructive pulmonary disease, unspecified (7) Decubitus ulcer Code(s): L89.90 - PRESSURE ULCER OF UNSPECIFIED SITE, UNSPECIFIED STAGE Qualifiers: Laterality: unspecified laterality Qualified Code(s): L89.40 - Pressure ulcer of contiguous site of back, buttock and hip, unspecified stage Assessment/Plan ABDOMINAL DISTENTION 2/2 DILATED COLON FROM FECAL IMPACTION CAUSING DIFFICULTY BREATHING NO EVIDENCE TO SUPPORT A/E COPD OR ACUTE LUNG INFECTION WOULD AWAIT GI INPUT FOR DISEMPACTION CONTINUE O2 PRN/BRONCHODILATORS NEEDED Omaira RIOJAS MD
[2019-02-10 10:06] LABS: PLATELET ESTIMATE NORMAL
[2019-02-10 10:12] LABS: PLATELET COUNT 181 K/MM3 (134-434)
--- NOTE | 2019-02-10 10:25 | PN ---
Progress Note, Physician Chief Complaint: ASLEEP EVENTS REVIEWED SEEMS COMFORTABLE - Current Medication List Current Medications: Active Medications Albuterol Sulfate (Ventolin 0.083% Nebulizer Soln -) 1 amp NEB Q6H PRN PRN Reason: SHORT OF BREATH/WHEEZING Docusate Sodium (Colace -) 100 mg PO BID GISEL Last Admin: 02/09/19 21:36 Dose: 100 mg Heparin Sodium (Porcine) (Heparin -) 5,000 unit SQ BID GISEL Last Admin: 02/09/19 21:36 Dose: 5,000 unit Magnesium Hydroxide (Milk Of Magnesia -) 30 ml PO DAILY PRN PRN Reason: CONSTIPATION Methyl Salicylate (Osmar-Moreno -) 1 applic TP Q6H PRN PRN Reason: BACK PAIN Multivitamins/Minerals/Vitamin C (Tab-A-Vit -) 1 tab PO DAILY GISEL Last Admin: 02/09/19 11:08 Dose: 1 tab Senna (Senna -) 2 tab PO HS GISEL Last Admin: 02/09/19 21:36 Dose: 2 tab Simethicone (Mylicon -) 80 mg PO Q4H PRN PRN Reason: GAS Last Admin: 02/10/19 00:17 Dose: 80 mg - Objective Vital Signs: Vital Signs Temperature 97.9 F 02/10/19 07:47 Pulse Rate 83 02/10/19 07:47 Respiratory Rate 20 02/10/19 07:47 Blood Pressure 102/65 02/10/19 07:47 O2 Sat by Pulse Oximetry (%) 98 02/09/19 21:00 Constitutional: Yes: Mild Distress Eyes: Yes: WNL HENT: Yes: WNL Neck: Yes: WNL Cardiovascular: Yes: Regular Rate and Rhythm Respiratory: Yes: Cough Gastrointestinal: Yes: Distention, Other Genitourinary: Yes: [place] Present Musculoskeletal: Yes: Muscle Weakness Integumentary: Yes: Pressure Ulcer (SACRAL) Neurological: Yes: Loss of Sensation, Pre-Existing Deficit, Weakness ...Motor Strength: LLE, RLE Labs: CBC, BMP 02/10/19 07:10 02/10/19 07:10 INR, PTT INR 1.07 (0.83-1.09) 02/09/19 00:05 Problem List - Problems (1) Chronic indwelling [place] catheter Code(s): Z92.89 - PERSONAL HISTORY OF OTHER MEDICAL TREATMENT (2) Constipated Code(s): K59.00 - CONSTIPATION, UNSPECIFIED Qualifiers: Constipation type: unspecified constipation type Qualified Code(s): K59.00 - Constipation, unspecified (3) Neurogenic bladder Code(s): N31.9 - NEUROMUSCULAR DYSFUNCTION OF BLADDER, UNSPECIFIED (4) UTI (urinary tract infection) Code(s): N39.0 - URINARY TRACT INFECTION, SITE NOT SPECIFIED Qualifiers: Urinary tract infection type: site unspecified Hematuria presence: with hematuria Qualified Code(s): N39.0 - Urinary tract infection, site not specified; R31.9 - Hematuria, unspecified (5) Acquired functional megacolon Code(s): K59.39 - OTHER MEGACOLON (6) Anemia Code(s): D64.9 - ANEMIA, UNSPECIFIED Qualifiers: Anemia type: iron deficiency Other causes of anemia: due to other specified chronic disease (7) COPD (chronic obstructive pulmonary disease) Code(s): J44.9 - CHRONIC OBSTRUCTIVE PULMONARY DISEASE, UNSPECIFIED Qualifiers: COPD type: unspecified COPD Qualified Code(s): J44.9 - Chronic obstructive pulmonary disease, unspecified (8) Decubitus ulcer Code(s): L89.90 - PRESSURE ULCER OF UNSPECIFIED SITE, UNSPECIFIED STAGE Qualifiers: Laterality: unspecified laterality Qualified Code(s): L89.40 - Pressure ulcer of contiguous site of back, buttock and hip, unspecified stage (9) Paraplegia following spinal cord injury Code(s): G82.20 - PARAPLEGIA, UNSPECIFIED Assessment/Plan UROLOGY CONSULT APPRECIATED PINZON PERMANENT CATH PULM F/U NEBS CONTINUE CHECK CXR ABX PER ID WOUND CARE/OFFLOADING TO DECREASE PRESSURE TO SACRAL/BUTTOCK ULCER ABDOMINAL DISTENTION RECTAL ENEMA / LACTULOSE
[2019-02-10] MEDS ORDERED: PT OWN MED DRAWER 7, Y5N ONE ×2 (10:37→12:13)
[2019-02-10] MEDS: MAGNESIUM HYDROX 2400MG/30ML ORAL SUSPENSION 30 ML CUP PO PRN (11:17)
[2019-02-10] MEDS: MULTIVITAMINS (DAILY MVI) TABLET (FP) PO SCH (11:17)
[2019-02-10] MEDS: DOCUSATE SODIUM 100 MG CAPSULE (FP) PO SCH ×2 (11:17→21:48)
[2019-02-10] MEDS: HEPARIN NA (PORCINE) 5,000 UNITS/ML 1ML VIAL SQ SCH ×2 (11:19→21:48)
[2019-02-10] MEDS: diazePAM 2 MG TABLET PO SCH ×2 (11:21→21:53)
[2019-02-10] MEDS: SENNOSIDES 8.6MG TABLET (FP) PO SCH (21:49)
[2019-02-11] MEDS ORDERED: ACETAMINOPHEN 325 MG TABLET (FP) PO ONE (02:59)
--- NOTE | 2019-02-11 10:01 | PN ---
Progress Note, Physician Chief Complaint: Abdominal Distention Paraplegia Neurogenic Bladder History of Present Illness: Previous notes and events reviewed awake and alert NAD FC changed by urology UC prelim positive afebrile patient sts having BM BC neg - Current Medication List Current Medications: Active Medications Albuterol Sulfate (Ventolin 0.083% Nebulizer Soln -) 1 amp NEB Q6H PRN PRN Reason: SHORT OF BREATH/WHEEZING Diazepam (Valium -) 2 mg PO Q12H [facility] Last Admin: 02/10/19 21:53 Dose: Not Given Docusate Sodium (Colace -) 100 mg PO BID [facility] Last Admin: 02/10/19 21:48 Dose: 100 mg Heparin Sodium (Porcine) (Heparin -) 5,000 unit SQ BID [facility] Last Admin: 02/10/19 21:48 Dose: 5,000 unit Lactulose (Cephulac (Oral Use)) 20 gm PO TID PRN PRN Reason: CONSTIPATION Magnesium Hydroxide (Milk Of Magnesia -) 30 ml PO DAILY PRN PRN Reason: CONSTIPATION Last Admin: 02/10/19 11:17 Dose: 30 ml Methyl Salicylate (Osmar-Moreno -) 1 applic TP Q6H PRN PRN Reason: BACK PAIN Multivitamins/Minerals/Vitamin C (Tab-A-Vit -) 1 tab PO DAILY [facility] Last Admin: 02/10/19 11:17 Dose: 1 tab Senna (Senna -) 2 tab PO HS [facility] Last Admin: 02/10/19 21:49 Dose: 2 tab Simethicone (Mylicon -) 80 mg PO Q4H PRN PRN Reason: GAS Last Admin: 02/10/19 11:17 Dose: 80 mg - Objective Vital Signs: Vital Signs Temperature 99.4 F 02/10/19 21:00 Pulse Rate 73 02/10/19 21:00 Respiratory Rate 20 02/10/19 21:00 Blood Pressure 133/72 02/10/19 21:00 O2 Sat by Pulse Oximetry (%) 96 02/10/19 21:00 Constitutional: Yes: No Distress, Calm Eyes: Yes: Conjunctiva Clear HENT: Yes: Atraumatic Cardiovascular: Yes: Regular Rate and Rhythm Respiratory: Yes: Regular, CTA Bilaterally Gastrointestinal: Yes: Normal Bowel Sounds, Soft, Distention Genitourinary: Yes: Pelaez Present, Other (L nephrostomy tube) Musculoskeletal: Yes: Muscle Weakness Extremities: Yes: WNL Edema: No Integumentary: Yes: Pressure Ulcer Neurological: Yes: Alert, Oriented, Pre-Existing Deficit Psychiatric: Yes: Alert, Oriented Labs: CBC, BMP 02/10/19 07:10 02/10/19 07:10 INR, PTT INR 1.07 (0.83-1.09) 02/09/19 00:05 Microbiology 02/08/19 20:25 Urine - Urine - Catheterized Urine Culture - Preliminary Proteus Mirabilis Group D Strep Or Entero Coccus 02/08/19 23:15 Blood - Peripheral Venous Blood Culture - Preliminary NO GROWTH OBTAINED AFTER 48 HOURS, INCUBATION TO CONTINUE FOR 3 DAYS. 02/08/19 23:15 Blood - Peripheral Venous Blood Culture - Preliminary NO GROWTH OBTAINED AFTER 48 HOURS, INCUBATION TO CONTINUE FOR 3 DAYS. Problem List - Problems (1) Chronic indwelling Pelaez catheter Assessment/Plan: -2/2 neurogenic bladder -Urology Consult-patient now requesting Dr Oro Code(s): Z92.89 - PERSONAL HISTORY OF OTHER MEDICAL TREATMENT (2) Constipated Assessment/Plan: -GI consult -Senna, Colace -Lactulose added to regimen -repeat FUA ordered Code(s): K59.00 - CONSTIPATION, UNSPECIFIED Qualifiers: Constipation type: unspecified constipation type Qualified Code(s): K59.00 - Constipation, unspecified (3) UTI (urinary tract infection) Assessment/Plan: -ID consult -UA 3+ leuks, + nitrites, 1+ blood , 2+ protein -UC prelim positive -received Meropenem in ER -no leukocytosis -afebrile Code(s): N39.0 - URINARY TRACT INFECTION, SITE NOT SPECIFIED Qualifiers: Urinary tract infection type: site unspecified Hematuria presence: with hematuria Qualified Code(s): N39.0 - Urinary tract infection, site not specified; R31.9 - Hematuria, unspecified (4) COPD (chronic obstructive pulmonary disease) Assessment/Plan: -Bronchodilators -Keep SpO2 >90% -O2 via NC -Pulm consult Code(s): J44.9 - CHRONIC OBSTRUCTIVE PULMONARY DISEASE, UNSPECIFIED Qualifiers: COPD type: unspecified COPD Qualified Code(s): J44.9 - Chronic obstructive pulmonary disease, unspecified (5) Neurogenic bladder Assessment/Plan: -Urology consult -FC changed by Urology Code(s): N31.9 - NEUROMUSCULAR DYSFUNCTION OF BLADDER, UNSPECIFIED (6) Weakness Assessment/Plan: -Fall risk -PT Code(s): R53.1 - WEAKNESS (7) JOSE CRUZ (acute kidney injury) Assessment/Plan: -BUN/Cr 29.1/1.0 -monitor renal function -Renal consult Code(s): N17.9 - ACUTE KIDNEY FAILURE, UNSPECIFIED (8) MDRO (multiple drug resistant organisms) resistance Assessment/Plan: -contact precaution Code(s): Z16.35 - RESISTANCE TO MULTIPLE ANTIMICROBIAL DRUGS Assessment/Plan problem list dvt ppx
[2019-02-11] MEDS: MULTIVITAMINS (DAILY MVI) TABLET (FP) PO SCH (10:20)
[2019-02-11] MEDS: DOCUSATE SODIUM 100 MG CAPSULE (FP) PO SCH ×2 (10:20→23:11)
[2019-02-11] MEDS: diazePAM 2 MG TABLET PO SCH ×2 (10:20→23:11)
[2019-02-11] MEDS: HEPARIN NA (PORCINE) 5,000 UNITS/ML 1ML VIAL SQ SCH ×2 (10:20→23:11)
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
--- NOTE | 2019-02-11 11:34 | PN ---
Progress Note (short form) - Note Progress Note: PULMONARY NO NEW COMPLAINTS VSS/AFEBRILE Constitutional: Yes: Calm Eyes: Yes: EOM Intact HENT: Yes: Normocephalic Neck: Yes: Trachea Midline Cardiovascular: Yes: S1, S2 Respiratory: Yes: CTA Bilaterally Gastrointestinal: Yes: Distention, Hyperactive Bowel Sounds Edema: No Neurological: Yes: Other (PARAPLEGIA) Labs: NOTED Imaging - Results Chest X-ray: Report Reviewed, Image Reviewed Cat Scan: Report Reviewed Problem List - Problems (1) Chronic indwelling Pelaez catheter Code(s): Z92.89 - PERSONAL HISTORY OF OTHER MEDICAL TREATMENT (2) Constipated Code(s): K59.00 - CONSTIPATION, UNSPECIFIED Qualifiers: Constipation type: unspecified constipation type Qualified Code(s): K59.00 - Constipation, unspecified (3) Neurogenic bladder Code(s): N31.9 - NEUROMUSCULAR DYSFUNCTION OF BLADDER, UNSPECIFIED (4) UTI (urinary tract infection) Code(s): N39.0 - URINARY TRACT INFECTION, SITE NOT SPECIFIED Qualifiers: Urinary tract infection type: site unspecified Hematuria presence: with hematuria Qualified Code(s): N39.0 - Urinary tract infection, site not specified; R31.9 - Hematuria, unspecified (5) Acquired functional megacolon Code(s): K59.39 - OTHER MEGACOLON (6) COPD (chronic obstructive pulmonary disease) Code(s): J44.9 - CHRONIC OBSTRUCTIVE PULMONARY DISEASE, UNSPECIFIED Qualifiers: COPD type: unspecified COPD Qualified Code(s): J44.9 - Chronic obstructive pulmonary disease, unspecified (7) Decubitus ulcer Code(s): L89.90 - PRESSURE ULCER OF UNSPECIFIED SITE, UNSPECIFIED STAGE Qualifiers: Laterality: unspecified laterality Qualified Code(s): L89.40 - Pressure ulcer of contiguous site of back, buttock and hip, unspecified stage Assessment/Plan ABDOMINAL DISTENTION 2/2 DILATED COLON FROM FECAL IMPACTION CAUSING DIFFICULTY BREATHING NO EVIDENCE TO SUPPORT A/E COPD OR ACUTE LUNG INFECTION WOULD AWAIT GI INPUT FOR DISEMPACTION CONTINUE O2 PRN/BRONCHODILATORS NEEDED Omaira RIOJAS MD Problem List - Problems (1) Chronic indwelling Pelaez catheter Code(s): Z92.89 - PERSONAL HISTORY OF OTHER MEDICAL TREATMENT (2) Constipated Code(s): K59.00 - CONSTIPATION, UNSPECIFIED Qualifiers: Constipation type: unspecified constipation type Qualified Code(s): K59.00 - Constipation, unspecified (3) Neurogenic bladder Code(s): N31.9 - NEUROMUSCULAR DYSFUNCTION OF BLADDER, UNSPECIFIED (4) UTI (urinary tract infection) Code(s): N39.0 - URINARY TRACT INFECTION, SITE NOT SPECIFIED Qualifiers: Urinary tract infection type: site unspecified Hematuria presence: with hematuria Qualified Code(s): N39.0 - Urinary tract infection, site not specified; R31.9 - Hematuria, unspecified (5) Acquired functional megacolon Code(s): K59.39 - OTHER MEGACOLON (6) COPD (chronic obstructive pulmonary disease) Code(s): J44.9 - CHRONIC OBSTRUCTIVE PULMONARY DISEASE, UNSPECIFIED Qualifiers: COPD type: unspecified COPD Qualified Code(s): J44.9 - Chronic obstructive pulmonary disease, unspecified (7) Decubitus ulcer Code(s): L89.90 - PRESSURE ULCER OF UNSPECIFIED SITE, UNSPECIFIED STAGE Qualifiers: Laterality: unspecified laterality Qualified Code(s): L89.40 - Pressure ulcer of contiguous site of back, buttock and hip, unspecified stage
[2019-02-11] MEDS: SIMETHICONE 80 MG TAB.CHEW (FP) PO PRN ×2 (18:14→23:31)
[2019-02-11] MEDS: MAGNESIUM HYDROX 2400MG/30ML ORAL SUSPENSION 30 ML CUP PO PRN (18:14)
[2019-02-11] MEDS: SENNOSIDES 8.6MG TABLET (FP) PO SCH (23:11)
[2019-02-11] MEDS: ACETAMINOPHEN 325 MG TABLET (FP) PO PRN (23:32)
[2019-02-12] MEDS: DOCUSATE SODIUM 100 MG CAPSULE (FP) PO SCH ×2 (10:46→22:01)
[2019-02-12] MEDS: MULTIVITAMINS (DAILY MVI) TABLET (FP) PO SCH (10:47)
[2019-02-12] MEDS: HEPARIN NA (PORCINE) 5,000 UNITS/ML 1ML VIAL SQ SCH ×2 (10:47→22:02)
--- NOTE | 2019-02-12 10:53 | PN ---
Progress Note (short form) - Note Progress Note: PULMONARY RESTING COMFORTABLY ABD REMAINS DISTENDED Eyes: Yes: EOM Intact HENT: Yes: Normocephalic Neck: Yes: Trachea Midline Cardiovascular: Yes: S1, S2 Respiratory: Yes: CTA Bilaterally Gastrointestinal: Yes: Distention, Hyperactive Bowel Sounds Edema: No Neurological: Yes: Other (PARAPLEGIA) Labs: NOTED Imaging - Results Chest X-ray: Report Reviewed, Image Reviewed Cat Scan: Report Reviewed Problem List - Problems (1) Chronic indwelling Pelaez catheter Code(s): Z92.89 - PERSONAL HISTORY OF OTHER MEDICAL TREATMENT (2) Constipated Code(s): K59.00 - CONSTIPATION, UNSPECIFIED Qualifiers: Constipation type: unspecified constipation type Qualified Code(s): K59.00 - Constipation, unspecified (3) Neurogenic bladder Code(s): N31.9 - NEUROMUSCULAR DYSFUNCTION OF BLADDER, UNSPECIFIED (4) UTI (urinary tract infection) Code(s): N39.0 - URINARY TRACT INFECTION, SITE NOT SPECIFIED Qualifiers: Urinary tract infection type: site unspecified Hematuria presence: with hematuria Qualified Code(s): N39.0 - Urinary tract infection, site not specified; R31.9 - Hematuria, unspecified (5) Acquired functional megacolon Code(s): K59.39 - OTHER MEGACOLON (6) COPD (chronic obstructive pulmonary disease) Code(s): J44.9 - CHRONIC OBSTRUCTIVE PULMONARY DISEASE, UNSPECIFIED Qualifiers: COPD type: unspecified COPD Qualified Code(s): J44.9 - Chronic obstructive pulmonary disease, unspecified (7) Decubitus ulcer Code(s): L89.90 - PRESSURE ULCER OF UNSPECIFIED SITE, UNSPECIFIED STAGE Qualifiers: Laterality: unspecified laterality Qualified Code(s): L89.40 - Pressure ulcer of contiguous site of back, buttock and hip, unspecified stage Assessment/Plan ABDOMINAL DISTENTION 2/2 DILATED COLON FROM FECAL IMPACTION CAUSING DIFFICULTY BREATHING NO EVIDENCE TO SUPPORT A/E COPD OR ACUTE LUNG INFECTION WOULD AWAIT GI INPUT FOR DISEMPACTION CONTINUE O2 PRN/BRONCHODILATORS NEEDED Omaira RIOJAS MD Problem List - Problems (1) Chronic indwelling Pelaez catheter Code(s): Z92.89 - PERSONAL HISTORY OF OTHER MEDICAL TREATMENT (2) Constipated Code(s): K59.00 - CONSTIPATION, UNSPECIFIED Qualifiers: Constipation type: unspecified constipation type Qualified Code(s): K59.00 - Constipation, unspecified (3) Neurogenic bladder Code(s): N31.9 - NEUROMUSCULAR DYSFUNCTION OF BLADDER, UNSPECIFIED (4) UTI (urinary tract infection) Code(s): N39.0 - URINARY TRACT INFECTION, SITE NOT SPECIFIED Qualifiers: Urinary tract infection type: site unspecified Hematuria presence: with hematuria Qualified Code(s): N39.0 - Urinary tract infection, site not specified; R31.9 - Hematuria, unspecified (5) Acquired functional megacolon Code(s): K59.39 - OTHER MEGACOLON (6) COPD (chronic obstructive pulmonary disease) Code(s): J44.9 - CHRONIC OBSTRUCTIVE PULMONARY DISEASE, UNSPECIFIED Qualifiers: COPD type: unspecified COPD Qualified Code(s): J44.9 - Chronic obstructive pulmonary disease, unspecified (7) Decubitus ulcer Code(s): L89.90 - PRESSURE ULCER OF UNSPECIFIED SITE, UNSPECIFIED STAGE Qualifiers: Laterality: unspecified laterality Qualified Code(s): L89.40 - Pressure ulcer of contiguous site of back, buttock and hip, unspecified stage
--- NOTE | 2019-02-12 11:15 | PN ---
Progress Note, Physician - Current Medication List Current Medications: Active Medications Acetaminophen (Tylenol -) 650 mg PO Q6H PRN PRN Reason: PAIN LEVEL 1-5 Last Admin: 02/11/19 23:32 Dose: 650 mg Albuterol Sulfate (Ventolin 0.083% Nebulizer Soln -) 1 amp NEB Q6H PRN PRN Reason: SHORT OF BREATH/WHEEZING Docusate Sodium (Colace -) 100 mg PO BID [facility] Last Admin: 02/12/19 10:46 Dose: 100 mg Heparin Sodium (Porcine) (Heparin -) 5,000 unit SQ BID [facility] Last Admin: 02/12/19 10:47 Dose: 5,000 unit Lactulose (Cephulac (Oral Use)) 20 gm PO TID PRN PRN Reason: CONSTIPATION Magnesium Hydroxide (Milk Of Magnesia -) 30 ml PO DAILY PRN PRN Reason: CONSTIPATION Last Admin: 02/11/19 18:14 Dose: 30 ml Methyl Salicylate (Osmar-Moreno -) 1 applic TP Q6H PRN PRN Reason: BACK PAIN Multivitamins/Minerals/Vitamin C (Tab-A-Vit -) 1 tab PO DAILY [facility] Last Admin: 02/12/19 10:47 Dose: 1 tab Senna (Senna -) 2 tab PO HS [facility] Last Admin: 02/11/19 23:11 Dose: 2 tab Simethicone (Mylicon -) 80 mg PO Q4H PRN PRN Reason: GAS Last Admin: 02/11/19 23:31 Dose: 80 mg - Objective Vital Signs: Vital Signs Temperature 98.1 F 02/12/19 10:40 Pulse Rate 90 02/12/19 10:40 Respiratory Rate 15 02/12/19 10:40 Blood Pressure 98/66 02/12/19 10:40 O2 Sat by Pulse Oximetry (%) 96 02/11/19 21:00 Cardiovascular: Yes: S1, S2 Respiratory: Yes: Regular, CTA Bilaterally Gastrointestinal: Yes: Normal Bowel Sounds, Soft Labs: CBC, BMP 02/10/19 07:10 02/10/19 07:10 INR, PTT INR 1.07 (0.83-1.09) 02/09/19 00:05 Assessment/Plan - Problems (1) Chronic indwelling Pelaez catheter Assessment/Plan: -2/2 neurogenic bladder -Urology Consult-patient now requesting Dr Oro Code(s): Z92.89 - PERSONAL HISTORY OF OTHER MEDICAL TREATMENT (2) Constipated Assessment/Plan: -GI consult -Senna, Colace -Lactulose added to regimen -repeat FUA ordered -[id number] Code(s): K59.00 - CONSTIPATION, UNSPECIFIED Qualifiers: Constipation type: unspecified constipation type Qualified Code(s): K59.00 - Constipation, unspecified (3) UTI (urinary tract infection) Assessment/Plan: -ID consult -UA 3+ leuks, + nitrites, 1+ blood , 2+ protein -UC prelim positive -received Meropenem in ER -no leukocytosis -afebrile Code(s): N39.0 - URINARY TRACT INFECTION, SITE NOT SPECIFIED Qualifiers: Urinary tract infection type: site unspecified Hematuria presence: with hematuria Qualified Code(s): N39.0 - Urinary tract infection, site not specified; R31.9 - Hematuria, unspecified (4) COPD (chronic obstructive pulmonary disease) Assessment/Plan: -Bronchodilators -Keep SpO2 >90% -O2 via NC -Pulm consult Code(s): J44.9 - CHRONIC OBSTRUCTIVE PULMONARY DISEASE, UNSPECIFIED Qualifiers: COPD type: unspecified COPD Qualified Code(s): J44.9 - Chronic obstructive pulmonary disease, unspecified (5) Neurogenic bladder Assessment/Plan: -Urology consult -FC changed by Urology Code(s): N31.9 - NEUROMUSCULAR DYSFUNCTION OF BLADDER, UNSPECIFIED (6) Weakness Assessment/Plan: -Fall risk -PT Code(s): R53.1 - WEAKNESS (7) JOSE CRUZ (acute kidney injury) Assessment/Plan: -BUN/Cr 29.1/1.0 -monitor renal function -Renal consult Code(s): N17.9 - ACUTE KIDNEY FAILURE, UNSPECIFIED (8) MDRO (multiple drug resistant organisms) resistance Assessment/Plan: -contact precaution Code(s): Z16.35 - RESISTANCE TO MULTIPLE ANTIMICROBIAL DRUGS
[2019-02-12] MEDS ORDERED: MAGNESIUM CITRATE 300 ML BOTTLE PO ONE (11:19)
[2019-02-12 11:27] LABS: HEMATOCRIT 33.2 % (35.4-49); HEMOGLOBIN 10.6 GM/dL (11.7-16.9); MCH 26.4 pg (25.7-33.7); MCHC 32.1 g/dl (32.0-35.9); MEAN CELL VOLUME 82.3 fl (80-96); PLATELET COUNT 225 K/MM3 (134-434); RBC 4.03 M/mm3 (4.00-5.60); RDW 18.3 % (11.9-15.9); WHITE BLOOD COUNT 8.1 K/mm3 (4.0-10.0)
[2019-02-12 12:01] LABS: ALBUMIN 2.8 g/dl (3.4-5.0); BILIRUBIN,TOTAL 0.3 mg/dL (0.2-1); BLOOD UREA NITROGEN 20.7 mg/dL (7-18); CALCIUM 9.1 mg/dL (8.5-10.1); CREATININE 0.9 mg/dL (0.55-1.3); POTASSIUM 4.3 mmol/L (3.5-5.1); TOT PROT 7.6 g/dl (6.4-8.2)
[2019-02-12] MEDS ORDERED: PT OWN MED DRAWER 7, Y5N ONE (14:38)
[2019-02-12] MEDS: SIMETHICONE 80 MG TAB.CHEW (FP) PO PRN (22:00)
[2019-02-12] MEDS: SENNOSIDES 8.6MG TABLET (FP) PO SCH (22:01)
[2019-02-13] MEDS: MAGNESIUM HYDROX 2400MG/30ML ORAL SUSPENSION 30 ML CUP PO PRN (09:41)
[2019-02-13] MEDS: HEPARIN NA (PORCINE) 5,000 UNITS/ML 1ML VIAL SQ SCH ×2 (09:41→22:37)
[2019-02-13] MEDS: MULTIVITAMINS (DAILY MVI) TABLET (FP) PO SCH (09:42)
[2019-02-13] MEDS: SIMETHICONE 80 MG TAB.CHEW (FP) PO PRN ×2 (09:47→22:36)
[2019-02-13] MEDS: DOCUSATE SODIUM 100 MG CAPSULE (FP) PO SCH ×2 (10:29→22:38)
--- NOTE | 2019-02-13 11:28 | PN ---
Progress Note, Physician - Current Medication List Current Medications: Active Medications Acetaminophen (Tylenol -) 650 mg PO Q6H PRN PRN Reason: PAIN LEVEL 1-5 Last Admin: 02/11/19 23:32 Dose: 650 mg Albuterol Sulfate (Ventolin 0.083% Nebulizer Soln -) 1 amp NEB Q6H PRN PRN Reason: SHORT OF BREATH/WHEEZING Docusate Sodium (Colace -) 100 mg PO BID [facility] Last Admin: 02/13/19 10:29 Dose: Not Given Heparin Sodium (Porcine) (Heparin -) 5,000 unit SQ BID [facility] Last Admin: 02/13/19 09:41 Dose: 5,000 unit Lactulose (Cephulac (Oral Use)) 20 gm PO TID PRN PRN Reason: CONSTIPATION Magnesium Hydroxide (Milk Of Magnesia -) 30 ml PO DAILY PRN PRN Reason: CONSTIPATION Last Admin: 02/13/19 09:41 Dose: 30 ml Methyl Salicylate (Osmar-Moreno -) 1 applic TP Q6H PRN PRN Reason: BACK PAIN Multivitamins/Minerals/Vitamin C (Tab-A-Vit -) 1 tab PO DAILY [facility] Last Admin: 02/13/19 09:42 Dose: 1 tab Senna (Senna -) 2 tab PO HS [facility] Last Admin: 02/12/19 22:01 Dose: 2 tab Simethicone (Mylicon -) 80 mg PO Q4H PRN PRN Reason: GAS Last Admin: 02/13/19 09:47 Dose: 80 mg - Objective Vital Signs: Vital Signs Temperature 98.3 F 02/13/19 08:56 Pulse Rate 89 02/13/19 08:56 Respiratory Rate 18 02/13/19 08:56 Blood Pressure 107/70 02/13/19 08:56 O2 Sat by Pulse Oximetry (%) 96 02/11/19 21:00 Labs: CBC, BMP 02/12/19 10:40 02/12/19 10:40 INR, PTT INR 1.07 (0.83-1.09) 02/09/19 00:05
--- NOTE | 2019-02-13 11:34 | DS ---
Physical Examination Vital Signs: Vital Signs Temperature 98.3 F 02/13/19 08:56 Pulse Rate 89 02/13/19 08:56 Respiratory Rate 18 02/13/19 08:56 Blood Pressure 107/70 02/13/19 08:56 O2 Sat by Pulse Oximetry (%) 96 02/11/19 21:00 Cardiovascular: Yes: S1, S2 Respiratory: Yes: Regular, CTA Bilaterally Gastrointestinal: Yes: Normal Bowel Sounds, Soft Labs: CBC, BMP 02/12/19 10:40 02/12/19 10:40 Discharge Summary Problems reviewed: Yes Reason For Visit: CHRONIC INDWELLING PINZON CATHETER,UTI,CONSTIPATION Current Active Problems Chronic indwelling Pinzon catheter (Acute) Constipated (Acute) Neurogenic bladder (Acute) UTI (urinary tract infection) (Acute) Hospital Course: - Problems (1) Chronic indwelling Pinzon catheter Assessment/Plan: -2/2 neurogenic bladder -Urology Consult-patient now requesting Dr Oro Code(s): Z92.89 - PERSONAL HISTORY OF OTHER MEDICAL TREATMENT (2) Constipated Assessment/Plan: -GI consult -Senna, Colace -Lactulose added to regimen -repeat FUA ordered -[id number] Code(s): K59.00 - CONSTIPATION, UNSPECIFIED Qualifiers: Constipation type: unspecified constipation type Qualified Code(s): K59.00 - Constipation, unspecified (3) UTI (urinary tract infection) Assessment/Plan: -ID consult -UA 3+ leuks, + nitrites, 1+ blood , 2+ protein -UC prelim positive -received Meropenem in ER -no leukocytosis -afebrile Code(s): N39.0 - URINARY TRACT INFECTION, SITE NOT SPECIFIED Qualifiers: Urinary tract infection type: site unspecified Hematuria presence: with hematuria Qualified Code(s): N39.0 - Urinary tract infection, site not specified; R31.9 - Hematuria, unspecified (4) COPD (chronic obstructive pulmonary disease) Assessment/Plan: -Bronchodilators -Keep SpO2 >90% -O2 via NC -Pulm consult Code(s): J44.9 - CHRONIC OBSTRUCTIVE PULMONARY DISEASE, UNSPECIFIED Qualifiers: COPD type: unspecified COPD Qualified Code(s): J44.9 - Chronic obstructive pulmonary disease, unspecified (5) Neurogenic bladder Assessment/Plan: -Urology consult -FC changed by Urology Code(s): N31.9 - NEUROMUSCULAR DYSFUNCTION OF BLADDER, UNSPECIFIED (6) Weakness Assessment/Plan: -Fall risk -PT Code(s): R53.1 - WEAKNESS (7) JOSE CRUZ (acute kidney injury) Assessment/Plan: -BUN/Cr 29.1/1.0 -monitor renal function -Renal consult Code(s): N17.9 - ACUTE KIDNEY FAILURE, UNSPECIFIED (8) MDRO (multiple drug resistant organisms) resistance Assessment/Plan: -contact precaution Code(s): Z16.35 - RESISTANCE TO MULTIPLE ANTIMICROBIAL DRUGS Condition: Stable - Instructions Referrals: Leola House MD [Primary Care Provider] - - Home Medications Comprehensive Discharge Medication List: Ambulatory Orders Multivitamin [Multiple Vitamins] 1 tab PO DAILY 08/04/18 Acetaminophen [Tylenol .Regular Strength -] 650 mg PO Q6H PRN tablet 09/09/18 Docusate Sodium [Colace -] 100 mg PO BID capsule 09/09/18 Magnesium Hydrox 2400MG/30Ml [Milk of Magnesia -] 30 ml PO DAILY PRN cup Methyl Salicylate/Menthol Oint [Analgesic [place] -] 1 applic TP Q6H PRN applic Sennosides [Senna -] 2 tab PO HS tablet 09/09/18 Simethicone [Mylicon -] 80 mg PO Q4H PRN tab.chew 09/09/18 Albuterol 0.083% Nebulizer Estrellita [Ventolin 0.083% Nebulizer Soln -] 1 amp NEB Q6H PRN amp 02/13/19
--- NOTE | 2019-02-13 13:08 | PN ---
Progress Note (short form) - Note Progress Note: PULMONARY RESTING COMFORTABLY ABD REMAINS DISTENDED Eyes: Yes: EOM Intact HENT: Yes: Normocephalic Neck: Yes: Trachea Midline Cardiovascular: Yes: S1, S2 Respiratory: Yes: CTA Bilaterally Gastrointestinal: Yes: Distention, Hyperactive Bowel Sounds Edema: No Neurological: Yes: Other (PARAPLEGIA) Labs: NOTED Imaging - Results Chest X-ray: Report Reviewed, Image Reviewed Cat Scan: Report Reviewed Problem List - Problems (1) Chronic indwelling Pelaez catheter Code(s): Z92.89 - PERSONAL HISTORY OF OTHER MEDICAL TREATMENT (2) Constipated Code(s): K59.00 - CONSTIPATION, UNSPECIFIED Qualifiers: Constipation type: unspecified constipation type Qualified Code(s): K59.00 - Constipation, unspecified (3) Neurogenic bladder Code(s): N31.9 - NEUROMUSCULAR DYSFUNCTION OF BLADDER, UNSPECIFIED (4) UTI (urinary tract infection) Code(s): N39.0 - URINARY TRACT INFECTION, SITE NOT SPECIFIED Qualifiers: Urinary tract infection type: site unspecified Hematuria presence: with hematuria Qualified Code(s): N39.0 - Urinary tract infection, site not specified; R31.9 - Hematuria, unspecified (5) Acquired functional megacolon Code(s): K59.39 - OTHER MEGACOLON (6) COPD (chronic obstructive pulmonary disease) Code(s): J44.9 - CHRONIC OBSTRUCTIVE PULMONARY DISEASE, UNSPECIFIED Qualifiers: COPD type: unspecified COPD Qualified Code(s): J44.9 - Chronic obstructive pulmonary disease, unspecified (7) Decubitus ulcer Code(s): L89.90 - PRESSURE ULCER OF UNSPECIFIED SITE, UNSPECIFIED STAGE Qualifiers: Laterality: unspecified laterality Qualified Code(s): L89.40 - Pressure ulcer of contiguous site of back, buttock and hip, unspecified stage Assessment/Plan ABDOMINAL DISTENTION 2/2 DILATED COLON FROM FECAL IMPACTION CAUSING DIFFICULTY BREATHING NO EVIDENCE TO SUPPORT A/E COPD OR ACUTE LUNG INFECTION CONTINUE O2 PRN/BRONCHODILATORS NEEDED Omaira RIOJAS MD Problem List - Problems (1) Chronic indwelling Pelaez catheter Code(s): Z92.89 - PERSONAL HISTORY OF OTHER MEDICAL TREATMENT (2) Constipated Code(s): K59.00 - CONSTIPATION, UNSPECIFIED Qualifiers: Constipation type: unspecified constipation type Qualified Code(s): K59.00 - Constipation, unspecified (3) Neurogenic bladder Code(s): N31.9 - NEUROMUSCULAR DYSFUNCTION OF BLADDER, UNSPECIFIED (4) UTI (urinary tract infection) Code(s): N39.0 - URINARY TRACT INFECTION, SITE NOT SPECIFIED Qualifiers: Urinary tract infection type: site unspecified Hematuria presence: with hematuria Qualified Code(s): N39.0 - Urinary tract infection, site not specified; R31.9 - Hematuria, unspecified (5) Acquired functional megacolon Code(s): K59.39 - OTHER MEGAC[place]ON (6) COPD (chronic obstructive pulmonary disease) Code(s): J44.9 - CHRONIC OBSTRUCTIVE PULMONARY DISEASE, UNSPECIFIED Qualifiers: COPD type: unspecified COPD Qualified Code(s): J44.9 - Chronic obstructive pulmonary disease, unspecified (7) Decubitus ulcer Code(s): L89.90 - PRESSURE ULCER OF UNSPECIFIED SITE, UNSPECIFIED STAGE Qualifiers: Laterality: unspecified laterality Qualified Code(s): L89.40 - Pressure ulcer of contiguous site of back, buttock and hip, unspecified stage
[2019-02-13] MEDS: ACETAMINOPHEN 325 MG TABLET (FP) PO PRN (22:36)
[2019-02-13] MEDS: SENNOSIDES 8.6MG TABLET (FP) PO SCH (22:38)
[2019-02-14] MEDS ORDERED: PT OWN MED DRAWER 7, Y5N ONE (09:18)
--- NOTE | 2019-02-14 09:40 | PN ---
Progress Note, Physician Chief Complaint: Abdominal Distention Paraplegia Neurogenic Bladder History of Present Illness: Previous notes and events reviewed awake and alert NAD UC positive-ID on board and recommend no need for ABT due to no leukocytosis and febrile, chronic FC due to paraplegia states having BM when instructed he will be discharged back to SNF patient became extremely agitated and aggressive cursing at sign writer hand and threw coffee cup against wall patient complain of burning like chest pain that comes and goes after eating - Current Medication List Current Medications: Active Medications Acetaminophen (Tylenol -) 650 mg PO Q6H PRN PRN Reason: PAIN LEVEL 1-5 Last Admin: 02/13/19 22:36 Dose: 650 mg Albuterol Sulfate (Ventolin 0.083% Nebulizer Soln -) 1 amp NEB Q6H PRN PRN Reason: SHORT OF BREATH/WHEEZING Docusate Sodium (Colace -) 100 mg PO BID [facility] Last Admin: 02/13/19 22:38 Dose: Not Given Heparin Sodium (Porcine) (Heparin -) 5,000 unit SQ BID [facility] Last Admin: 02/13/19 22:37 Dose: 5,000 unit Lactulose (Cephulac (Oral Use)) 20 gm PO TID PRN PRN Reason: CONSTIPATION Magnesium Hydroxide (Milk Of Magnesia -) 30 ml PO DAILY PRN PRN Reason: CONSTIPATION Last Admin: 02/13/19 09:41 Dose: 30 ml Methyl Salicylate (Osmar-Moreno -) 1 applic TP Q6H PRN PRN Reason: BACK PAIN Multivitamins/Minerals/Vitamin C (Tab-A-Vit -) 1 tab PO DAILY [facility] Last Admin: 02/13/19 09:42 Dose: 1 tab Senna (Senna -) 2 tab PO HS [facility] Last Admin: 02/13/19 22:38 Dose: Not Given Simethicone (Mylicon -) 80 mg PO Q4H PRN PRN Reason: GAS Last Admin: 02/13/19 22:36 Dose: 80 mg - Objective Vital Signs: Vital Signs Temperature 98.8 F 02/13/19 21:00 Pulse Rate 81 02/13/19 21:00 Respiratory Rate 16 02/13/19 21:00 Blood Pressure 108/64 02/13/19 21:00 O2 Sat by Pulse Oximetry (%) 96 02/11/19 21:00 Constitutional: Yes: No Distress, Other (agitated) Eyes: Yes: Conjunctiva Clear HENT: Yes: Atraumatic Cardiovascular: Yes: Regular Rate and Rhythm Respiratory: Yes: Regular, CTA Bilaterally Gastrointestinal: Yes: Normal Bowel Sounds, Soft, Distention Genitourinary: Yes: Pelaez Present, Other (L nephrostomy tube) Musculoskeletal: Yes: Muscle Weakness Extremities: Yes: WNL Edema: No Integumentary: Yes: Pressure Ulcer Neurological: Yes: Alert, Oriented, Pre-Existing Deficit, Weakness Psychiatric: Yes: Alert, Oriented, Agitated Labs: CBC, BMP 02/12/19 10:40 02/12/19 10:40 INR, PTT INR 1.07 (0.83-1.09) 02/09/19 00:05 Microbiology 02/08/19 23:15 Blood - Peripheral Venous Blood Culture - Final NO GROWTH AFTER 5 DAYS INCUBATION 02/08/19 23:15 Blood - Peripheral Venous Blood Culture - Final NO GROWTH AFTER 5 DAYS INCUBATION 02/08/19 20:25 Urine - Urine - Catheterized Urine Culture - Final Proteus Mirabilis Vr Ec Faecalis Problem List - Problems (1) Chronic indwelling Pelaez catheter Assessment/Plan: -2/2 neurogenic bladder -Urology Consult-patient now requesting Dr Oro Code(s): Z92.89 - PERSONAL HISTORY OF OTHER MEDICAL TREATMENT (2) Constipated Assessment/Plan: -GI consult -Senna, Colace -Lactulose added to regimen -FUA shows fecal impaction Code(s): K59.00 - CONSTIPATION, UNSPECIFIED Qualifiers: Constipation type: unspecified constipation type Qualified Code(s): K59.00 - Constipation, unspecified (3) UTI (urinary tract infection) Assessment/Plan: -ID consult -UA 3+ leuks, + nitrites, 1+ blood , 2+ protein -received Meropenem in ER -no leukocytosis -afebrile -UC positive-ID on board and recommend no need for ABT due to no leukocytosis and febrile, chronic FC due to paraplegia Code(s): N39.0 - URINARY TRACT INFECTION, SITE NOT SPECIFIED Qualifiers: Urinary tract infection type: site unspecified Hematuria presence: with hematuria Qualified Code(s): N39.0 - Urinary tract infection, site not specified; R31.9 - Hematuria, unspecified (4) COPD (chronic obstructive pulmonary disease) Assessment/Plan: -Bronchodilators -Keep SpO2 >90% -O2 via NC -Pulm consult Code(s): J44.9 - CHRONIC OBSTRUCTIVE PULMONARY DISEASE, UNSPECIFIED Qualifiers: COPD type: unspecified COPD Qualified Code(s): J44.9 - Chronic obstructive pulmonary disease, unspecified (5) Neurogenic bladder Assessment/Plan: -Urology consult -FC changed by Urology Code(s): N31.9 - NEUROMUSCULAR DYSFUNCTION OF BLADDER, UNSPECIFIED (6) Weakness Assessment/Plan: -Fall risk -PT Code(s): R53.1 - WEAKNESS (7) JOSE CRUZ (acute kidney injury) Assessment/Plan: -BUN/Cr 20.7/0.9 -monitor renal function Code(s): N17.9 - ACUTE KIDNEY FAILURE, UNSPECIFIED (8) MDRO (multiple drug resistant organisms) resistance Assessment/Plan: -contact precaution Code(s): Z16.35 - RESISTANCE TO MULTIPLE ANTIMICROBIAL DRUGS Assessment/Plan problem list dvt ppx begin dc planning back to SNF
[2019-02-14 10:42] LABS: BASO % 0.7 % (0-2.0); EOS % 2.8 % (0-4.5); HEMATOCRIT 31.9 % (35.4-49); HEMOGLOBIN 10.2 GM/dL (11.7-16.9); LYMPH % 13.8 % (8-40); MCH 26.3 pg (25.7-33.7); MCHC 31.9 g/dl (32.0-35.9); MEAN CELL VOLUME 82.4 fl (80-96); MEAN PLT VOLUME 7.6 fl (7.5-11.1); MONO % 9.7 % (3.8-10.2); PLATELET COUNT 246 K/MM3 (134-434); RBC 3.87 M/mm3 (4.00-5.60); RDW 17.8 % (11.9-15.9); WHITE BLOOD COUNT 5.8 K/mm3 (4.0-10.0)
[2019-02-14] MEDS: PANTOPRAZOLE 40 MG TABLET (FP) PO SCH (11:32)
[2019-02-14] MEDS: HEPARIN NA (PORCINE) 5,000 UNITS/ML 1ML VIAL SQ SCH ×2 (11:32→22:17)
[2019-02-14] MEDS: MULTIVITAMINS (DAILY MVI) TABLET (FP) PO SCH (11:32)
[2019-02-14] MEDS: DOCUSATE SODIUM 100 MG CAPSULE (FP) PO SCH ×2 (11:32→22:19)
[2019-02-14] MEDS: ACETAMINOPHEN 325 MG TABLET (FP) PO PRN (22:18)
[2019-02-14] MEDS: SIMETHICONE 80 MG TAB.CHEW (FP) PO PRN (22:18)
[2019-02-14] MEDS: SENNOSIDES 8.6MG TABLET (FP) PO SCH (22:18)
[2019-02-15] MEDS: HEPARIN NA (PORCINE) 5,000 UNITS/ML 1ML VIAL SQ SCH ×2 (13:02→22:09)
[2019-02-15] MEDS: PANTOPRAZOLE 40 MG TABLET (FP) PO SCH (13:02)
[2019-02-15] MEDS: DOCUSATE SODIUM 100 MG CAPSULE (FP) PO SCH ×2 (13:02→22:10)
[2019-02-15] MEDS: MULTIVITAMINS (DAILY MVI) TABLET (FP) PO SCH (13:03)
--- NOTE | 2019-02-15 13:16 | PN ---
Progress Note, Physician Chief Complaint: Abdominal Distention Paraplegia Neurogenic Bladder History of Present Illness: Previous notes and events reviewed awake and alert NAD states having BM after soap stepan enema complain of SOB and non-productive cough afebrile - Current Medication List Current Medications: Active Medications Acetaminophen (Tylenol -) 650 mg PO Q6H PRN PRN Reason: PAIN LEVEL 1-5 Last Admin: 02/14/19 22:18 Dose: 650 mg Albuterol Sulfate (Ventolin 0.083% Nebulizer Soln -) 1 amp NEB Q6H PRN PRN Reason: SHORT OF BREATH/WHEEZING Docusate Sodium (Colace -) 100 mg PO BID [facility] Last Admin: 02/15/19 13:02 Dose: 100 mg Heparin Sodium (Porcine) (Heparin -) 5,000 unit SQ BID [facility] Last Admin: 02/15/19 13:02 Dose: 5,000 unit Lactulose (Cephulac (Oral Use)) 20 gm PO TID PRN PRN Reason: CONSTIPATION Magnesium Hydroxide (Milk Of Magnesia -) 30 ml PO DAILY PRN PRN Reason: CONSTIPATION Last Admin: 02/13/19 09:41 Dose: 30 ml Methyl Salicylate (Osmar-Moreno -) 1 applic TP Q6H PRN PRN Reason: BACK PAIN Multivitamins/Minerals/Vitamin C (Tab-A-Vit -) 1 tab PO DAILY [facility] Last Admin: 02/15/19 13:03 Dose: 1 tab Pantoprazole Sodium (Protonix -) 40 mg PO DAILY [facility] Last Admin: 02/15/19 13:02 Dose: 40 mg Senna (Senna -) 2 tab PO HS [facility] Last Admin: 02/14/19 22:18 Dose: Not Given Simethicone (Mylicon -) 80 mg PO Q4H PRN PRN Reason: GAS Last Admin: 02/14/19 22:18 Dose: 80 mg - Objective Vital Signs: Vital Signs Temperature 99.2 F 02/14/19 21:00 Pulse Rate 86 02/14/19 21:00 Respiratory Rate 20 02/14/19 21:00 Blood Pressure 102/74 02/14/19 21:00 O2 Sat by Pulse Oximetry (%) 98 02/14/19 21:00 Constitutional: Yes: No Distress, Calm Eyes: Yes: Conjunctiva Clear HENT: Yes: Atraumatic Cardiovascular: Yes: Regular Rate and Rhythm Respiratory: Yes: Regular, CTA Bilaterally, Cough Gastrointestinal: Yes: Normal Bowel Sounds, Soft, Distention Genitourinary: Yes: Pelaez Present, Other (L nephrostomy tube) Musculoskeletal: Yes: Muscle Weakness Extremities: Yes: WNL Edema: No Integumentary: Yes: Pressure Ulcer Wound/Incision: Yes: Dressing Dry and Intact Neurological: Yes: Alert, Oriented, Pre-Existing Deficit Psychiatric: Yes: Alert, Oriented, Agitated Labs: CBC, BMP 02/14/19 10:25 02/12/19 10:40 INR, PTT INR 1.07 (0.83-1.09) 02/09/19 00:05 Microbiology 02/08/19 23:15 Blood - Peripheral Venous Blood Culture - Final NO GROWTH AFTER 5 DAYS INCUBATION 02/08/19 23:15 Blood - Peripheral Venous Blood Culture - Final NO GROWTH AFTER 5 DAYS INCUBATION 02/08/19 20:25 Urine - Urine - Catheterized Urine Culture - Final Proteus Mirabilis Vr Ec Faecalis Problem List - Problems (1) Chronic indwelling Pelaez catheter Assessment/Plan: -2/2 neurogenic bladder -Urology Consult Code(s): Z92.89 - PERSONAL HISTORY OF OTHER MEDICAL TREATMENT (2) Constipated Assessment/Plan: -GI consult -Senna, Colace -Lactulose -FUA shows fecal impaction Code(s): K59.00 - CONSTIPATION, UNSPECIFIED Qualifiers: Constipation type: unspecified constipation type Qualified Code(s): K59.00 - Constipation, unspecified (3) UTI (urinary tract infection) Assessment/Plan: -ID consult -UA 3+ leuks, + nitrites, 1+ blood , 2+ protein -received Meropenem in ER -no leukocytosis -afebrile -UC positive-ID on board and recommend no need for ABT due to no leukocytosis and febrile, chronic FC due to paraplegia Code(s): N39.0 - URINARY TRACT INFECTION, SITE NOT SPECIFIED Qualifiers: Urinary tract infection type: site unspecified Hematuria presence: with hematuria Qualified Code(s): N39.0 - Urinary tract infection, site not specified; R31.9 - Hematuria, unspecified (4) COPD (chronic obstructive pulmonary disease) Assessment/Plan: -Bronchodilators -Keep SpO2 >90% -O2 via NC -Pulm on board Code(s): J44.9 - CHRONIC OBSTRUCTIVE PULMONARY DISEASE, UNSPECIFIED Qualifiers: COPD type: unspecified COPD Qualified Code(s): J44.9 - Chronic obstructive pulmonary disease, unspecified (5) Neurogenic bladder Assessment/Plan: -Urology consult -FC changed by Urology Code(s): N31.9 - NEUROMUSCULAR DYSFUNCTION OF BLADDER, UNSPECIFIED (6) Weakness Assessment/Plan: -Fall risk -PT Code(s): R53.1 - WEAKNESS (7) JOSE CRUZ (acute kidney injury) Assessment/Plan: -BUN/Cr 20.7/0.9 -monitor renal function Code(s): N17.9 - ACUTE KIDNEY FAILURE, UNSPECIFIED (8) MDRO (multiple drug resistant organisms) resistance Assessment/Plan: -contact precaution Code(s): Z16.35 - RESISTANCE TO MULTIPLE ANTIMICROBIAL DRUGS Assessment/Plan problem list dvt ppx patient refusing SNF will return home with Home Care services
--- NOTE | 2019-02-15 17:49 | PN ---
Progress Note, Physician History of Present Illness: SPIKED TEMP 102 C/O CHILLS NO FOCAL COMPLAINT - Current Medication List Current Medications: Active Medications Acetaminophen (Tylenol -) 650 mg PO Q6H PRN PRN Reason: PAIN LEVEL 1-5 Last Admin: 02/14/19 22:18 Dose: 650 mg Albuterol Sulfate (Ventolin 0.083% Nebulizer Soln -) 1 amp NEB Q6H PRN PRN Reason: SHORT OF BREATH/WHEEZING Docusate Sodium (Colace -) 100 mg PO BID [facility] Last Admin: 02/15/19 13:02 Dose: 100 mg Heparin Sodium (Porcine) (Heparin -) 5,000 unit SQ BID [facility] Last Admin: 02/15/19 13:02 Dose: 5,000 unit Lactulose (Cephulac (Oral Use)) 20 gm PO TID PRN PRN Reason: CONSTIPATION Magnesium Hydroxide (Milk Of Magnesia -) 30 ml PO DAILY PRN PRN Reason: CONSTIPATION Last Admin: 02/13/19 09:41 Dose: 30 ml Methyl Salicylate (Osmar-Moreno -) 1 applic TP Q6H PRN PRN Reason: BACK PAIN Multivitamins/Minerals/Vitamin C (Tab-A-Vit -) 1 tab PO DAILY [facility] Last Admin: 02/15/19 13:03 Dose: 1 tab Pantoprazole Sodium (Protonix -) 40 mg PO DAILY [facility] Last Admin: 02/15/19 13:02 Dose: 40 mg Senna (Senna -) 2 tab PO HS [facility] Last Admin: 02/14/19 22:18 Dose: Not Given Simethicone (Mylicon -) 80 mg PO Q4H PRN PRN Reason: GAS Last Admin: 02/14/19 22:18 Dose: 80 mg - Objective Vital Signs: Vital Signs Temperature 100.1 F H 02/15/19 14:00 Pulse Rate 94 H 02/15/19 14:00 Respiratory Rate 20 02/15/19 14:00 Blood Pressure 102/57 L 02/15/19 14:00 O2 Sat by Pulse Oximetry (%) 96 02/15/19 09:00 Constitutional: Yes: No Distress Eyes: Yes: Conjunctiva Clear Cardiovascular: Yes: Regular Rate and Rhythm, S1, S2 Respiratory: Yes: Diminished Gastrointestinal: Yes: Other (DISTENDED, TYMPANITIC) Edema: No Labs: CBC, BMP 02/14/19 10:25 02/12/19 10:40 INR, PTT INR 1.07 (0.83-1.09) 02/09/19 00:05 Assessment/Plan FEVER ? SOURCE PARAPLEGIA S/P L PCN NEUROGENIC BLADDER/ INDWELLING PINZON RECULTURE EMPIRIC VANCO/ ZOSYN ( HAS TOLERATED IN PAST)
[2019-02-15] MEDS ORDERED: PIPERACILLIN/TAZOBACTAM 3.375 GM VIAL IVPB ONE (18:03)
[2019-02-15] MEDS ORDERED: DEXTROSE 5%-WATER - 50 ML IVPB ONE (18:03)
[2019-02-15] MEDS: PIPERACILLIN/TAZOB 3.375 GM 3.375 GM in DEXTROSE 5%-WATER - 50 ML IVPB SCH (18:16)
[2019-02-15] MEDS: ACETAMINOPHEN 325 MG TABLET (FP) PO PRN (18:16)
[2019-02-15 21:04] LABS: URINE APPEARANCE TURBID; URINE BILIRUBIN NEGATIVE (NEGATIVE); URINE COLOR YELLOW; URINE GLUCOSE (UA) NEGATIVE (NEGATIVE); URINE KETONE NEGATIVE (NEGATIVE)
[2019-02-15 21:05] LABS: PH,URINE > 9.0 (5.0-8.0); URINE NITRITE POSITIVE (NEGATIVE); URINE PROTEIN 2+ (NEGATIVE); URINE UROBILINOGEN 0.2 mg/dL (0.2-1.0)
[2019-02-15 21:06] LABS: EPI CELLS 16.5 /HPF (0-5/HPF); URINE BACTERIA 5704.5 /hpf (NEGATIVE); URINE LEUK ESTERASE LARGE (NEGATIVE); URINE RBC 19.6 /hpf (0-4); URINE WBC 1457.9 /hpf (0-5)
[2019-02-15 21:07] LABS: URINE CRYSTALS TRIPLE PHOS /hpf
[2019-02-15] MEDS: SENNOSIDES 8.6MG TABLET (FP) PO SCH (22:10)
[2019-02-15] MEDS: VANCOMYCIN 1 GRAM (PRE-DOCKED) 1,000 MG/250 ML BAG IVPB SCH (22:10)
[2019-02-16] MEDS ORDERED: PIPERACILLIN/TAZOBACTAM 3.375 GM VIAL IVPB ONE ×3 (01:27→17:22)
[2019-02-16] MEDS ORDERED: DEXTROSE 5%-WATER - 50 ML IVPB ONE ×3 (01:27→17:22)
[2019-02-16] MEDS: PIPERACILLIN/TAZOB 3.375 GM 3.375 GM in DEXTROSE 5%-WATER - 50 ML IVPB SCH ×3 (01:35→17:30)
[2019-02-16] MEDS: ACETAMINOPHEN 325 MG TABLET (FP) PO PRN ×3 (02:06→17:29)
[2019-02-16] MEDS: VANCOMYCIN 1 GRAM (PRE-DOCKED) 1,000 MG/250 ML BAG IVPB SCH ×2 (06:42→17:30)
--- NOTE | 2019-02-16 09:22 | PN ---
Progress Note, Physician Chief Complaint: Abdominal Distention Paraplegia Neurogenic Bladder History of Present Illness: Previous notes and events reviewed awake and alert NAD patient spiked fever last night with tmax 102F BC and UC collected - Current Medication List Current Medications: Active Medications Acetaminophen (Tylenol -) 650 mg PO Q6H PRN PRN Reason: PAIN LEVEL 1-5 Last Admin: 02/16/19 02:06 Dose: 650 mg Albuterol Sulfate (Ventolin 0.083% Nebulizer Soln -) 1 amp NEB Q6H PRN PRN Reason: SHORT OF BREATH/WHEEZING Docusate Sodium (Colace -) 100 mg PO BID [facility] Last Admin: 02/15/19 22:10 Dose: Not Given Heparin Sodium (Porcine) (Heparin -) 5,000 unit SQ BID [facility] Last Admin: 02/15/19 22:09 Dose: 5,000 unit Vancomycin HCl (Vancomycin (Pre-Docked)) 1,000 mg in 250 mls @ 166.667 mls/hr IVPB BID@0600,1800 [facility]; Protocol Last Admin: 02/16/19 06:42 Dose: 166.667 mls/hr Piperacillin Sod/Tazobactam (Sod 3.375 gm/ Dextrose) 50 mls @ 100 mls/hr IVPB Q8H-IV [facility]; Protocol Last Admin: 02/16/19 01:35 Dose: 100 mls/hr Lactulose (Cephulac (Oral Use)) 20 gm PO TID PRN PRN Reason: CONSTIPATION Magnesium Hydroxide (Milk Of Magnesia -) 30 ml PO DAILY PRN PRN Reason: CONSTIPATION Last Admin: 02/13/19 09:41 Dose: 30 ml Methyl Salicylate (Osmar-Moreno -) 1 applic TP Q6H PRN PRN Reason: BACK PAIN Multivitamins/Minerals/Vitamin C (Tab-A-Vit -) 1 tab PO DAILY [facility] Last Admin: 02/15/19 13:03 Dose: 1 tab Pantoprazole Sodium (Protonix -) 40 mg PO DAILY [facility] Last Admin: 02/15/19 13:02 Dose: 40 mg Senna (Senna -) 2 tab PO HS [facility] Last Admin: 02/15/19 22:10 Dose: Not Given Simethicone (Mylicon -) 80 mg PO Q4H PRN PRN Reason: GAS Last Admin: 02/14/19 22:18 Dose: 80 mg - Objective Vital Signs: Vital Signs Temperature 100.8 F H 02/16/19 02:00 Pulse Rate 100 H 02/15/19 17:00 Respiratory Rate 20 02/15/19 17:00 Blood Pressure 110/56 L 02/15/19 17:00 O2 Sat by Pulse Oximetry (%) 96 02/15/19 09:00 Constitutional: Yes: No Distress, Calm Eyes: Yes: Conjunctiva Clear HENT: Yes: Atraumatic Cardiovascular: Yes: Regular Rate and Rhythm Respiratory: Yes: Regular, CTA Bilaterally Gastrointestinal: Yes: Normal Bowel Sounds, Soft, Distention Genitourinary: Yes: Pelaez Present, Other (L nephrostomy) Musculoskeletal: Yes: Muscle Weakness Extremities: Yes: WNL Edema: No Integumentary: Yes: Pressure Ulcer Wound/Incision: Yes: Dressing Dry and Intact Neurological: Yes: Alert, Oriented Psychiatric: Yes: Alert, Oriented Labs: CBC, BMP 02/14/19 10:25 02/12/19 10:40 INR, PTT INR 1.07 (0.83-1.09) 02/09/19 00:05 Microbiology 02/08/19 23:15 Blood - Peripheral Venous Blood Culture - Final NO GROWTH AFTER 5 DAYS INCUBATION 02/08/19 23:15 Blood - Peripheral Venous Blood Culture - Final NO GROWTH AFTER 5 DAYS INCUBATION 02/08/19 20:25 Urine - Urine - Catheterized Urine Culture - Final Proteus Mirabilis Vr Ec Faecalis Problem List - Problems (1) Chronic indwelling Pelaez catheter Assessment/Plan: -2/2 neurogenic bladder -Urology Consult Code(s): Z92.89 - PERSONAL HISTORY OF OTHER MEDICAL TREATMENT (2) Constipated Assessment/Plan: -GI consult -Senna, Colace -Lactulose -FUA shows fecal impaction Code(s): K59.00 - CONSTIPATION, UNSPECIFIED Qualifiers: Constipation type: unspecified constipation type Qualified Code(s): K59.00 - Constipation, unspecified (3) UTI (urinary tract infection) Assessment/Plan: -ID consult -UA 3+ leuks, + nitrites, 1+ blood , 2+ protein -received Meropenem in ER -Vancomycin, Zosyn -no leukocytosis -febrile -repeat UC collected after temp spike Code(s): N39.0 - URINARY TRACT INFECTION, SITE NOT SPECIFIED Qualifiers: Urinary tract infection type: site unspecified Hematuria presence: with hematuria Qualified Code(s): N39.0 - Urinary tract infection, site not specified; R31.9 - Hematuria, unspecified (4) COPD (chronic obstructive pulmonary disease) Assessment/Plan: -Bronchodilators -Keep SpO2 >90% -O2 via NC -Pulm on board Code(s): J44.9 - CHRONIC OBSTRUCTIVE PULMONARY DISEASE, UNSPECIFIED Qualifiers: COPD type: unspecified COPD Qualified Code(s): J44.9 - Chronic obstructive pulmonary disease, unspecified (5) Neurogenic bladder Assessment/Plan: -Urology consult -FC changed by Urology Code(s): N31.9 - NEUROMUSCULAR DYSFUNCTION OF BLADDER, UNSPECIFIED (6) Weakness Assessment/Plan: -Fall risk -PT Code(s): R53.1 - WEAKNESS (7) JOSE CRUZ (acute kidney injury) Assessment/Plan: -BUN/Cr 20.7/0.9 -monitor renal function Code(s): N17.9 - ACUTE KIDNEY FAILURE, UNSPECIFIED (8) MDRO (multiple drug resistant organisms) resistance Assessment/Plan: -contact precaution Code(s): Z16.35 - RESISTANCE TO MULTIPLE ANTIMICROBIAL DRUGS (9) Fever Assessment/Plan: -ID on board -repeat BC and UC -tylenol prn for temp >100F -Vancomycin and Zosyn -no leukocytosis Code(s): R50.9 - FEVER, UNSPECIFIED Assessment/Plan see problem list dvt ppx
[2019-02-16] MEDS: PANTOPRAZOLE 40 MG TABLET (FP) PO SCH (09:30)
[2019-02-16] MEDS: DOCUSATE SODIUM 100 MG CAPSULE (FP) PO SCH ×2 (09:30→22:10)
[2019-02-16] MEDS: MULTIVITAMINS (DAILY MVI) TABLET (FP) PO SCH (09:30)
[2019-02-16] MEDS: SIMETHICONE 80 MG TAB.CHEW (FP) PO PRN (09:30)
--- NOTE | 2019-02-16 11:29 | PN ---
Progress Note, Physician History of Present Illness: AWAKE, ALERT IN BED FEBRILE OVERNIGHT C/O GENERALIZED PAIN CULTURES PENDING NO ADVERSE RXN TO ANTIBIOTIC NO FOCAL COMPLAINT URINE IN L PCN BAG CLOUDY - Current Medication List Current Medications: Active Medications Acetaminophen (Tylenol -) 650 mg PO Q6H PRN PRN Reason: PAIN LEVEL 1-5 Last Admin: 02/16/19 09:30 Dose: 650 mg Albuterol Sulfate (Ventolin 0.083% Nebulizer Soln -) 1 amp NEB Q6H PRN PRN Reason: SHORT OF BREATH/WHEEZING Docusate Sodium (Colace -) 100 mg PO BID [facility] Last Admin: 02/16/19 09:30 Dose: 100 mg Vancomycin HCl (Vancomycin (Pre-Docked)) 1,000 mg in 250 mls @ 166.667 mls/hr IVPB BID@0600,1800 [facility]; Protocol Last Admin: 02/16/19 06:42 Dose: 166.667 mls/hr Piperacillin Sod/Tazobactam (Sod 3.375 gm/ Dextrose) 50 mls @ 100 mls/hr IVPB Q8H-IV [facility]; Protocol Last Admin: 02/16/19 09:31 Dose: 100 mls/hr Lactulose (Cephulac (Oral Use)) 20 gm PO TID PRN PRN Reason: CONSTIPATION Magnesium Hydroxide (Milk Of Magnesia -) 30 ml PO DAILY PRN PRN Reason: CONSTIPATION Last Admin: 02/13/19 09:41 Dose: 30 ml Methyl Salicylate (Osmar-Moreno -) 1 applic TP Q6H PRN PRN Reason: BACK PAIN Multivitamins/Minerals/Vitamin C (Tab-A-Vit -) 1 tab PO DAILY [facility] Last Admin: 02/16/19 09:30 Dose: 1 tab Pantoprazole Sodium (Protonix -) 40 mg PO DAILY [facility] Last Admin: 02/16/19 09:30 Dose: 40 mg Senna (Senna -) 2 tab PO HS [facility] Last Admin: 02/15/19 22:10 Dose: Not Given Simethicone (Mylicon -) 80 mg PO Q4H PRN PRN Reason: GAS Last Admin: 02/16/19 09:30 Dose: 80 mg - Objective Vital Signs: Vital Signs Temperature 100.8 F H 02/16/19 02:00 Pulse Rate 100 H 02/15/19 17:00 Respiratory Rate 20 02/15/19 17:00 Blood Pressure 110/56 L 02/15/19 17:00 O2 Sat by Pulse Oximetry (%) 96 02/15/19 09:00 Constitutional: Yes: No Distress Eyes: Yes: Conjunctiva Clear Cardiovascular: Yes: Regular Rate and Rhythm, S1, S2 Respiratory: Yes: Diminished Gastrointestinal: Yes: Normal Bowel Sounds, Soft, Other (DISTENDED, TYMPANITIC) . No: Tenderness Edema: No Labs: CBC, BMP 02/14/19 10:25 02/12/19 10:40 INR, PTT INR 1.07 (0.83-1.09) 02/09/19 00:05 Assessment/Plan FEVER ? SOURCE R/O SOURCE PARAPLEGIA S/P L PCN NEUROGENIC BLADDER/ INDWELLING PINZON CULTURES PENDING CONTINUE EMPIRIC VANCO/ ZOSYN ( HAS TOLERATED IN PAST)
[2019-02-16 12:29] LABS: HEMATOCRIT 30.6 % (35.4-49); HEMOGLOBIN 9.7 GM/dL (11.7-16.9); MCHC 31.8 g/dl (32.0-35.9); MEAN CELL VOLUME 81.9 fl (80-96); MEAN PLT VOLUME 7.5 fl (7.5-11.1); PLATELET COUNT 263 K/MM3 (134-434); RBC 3.74 M/mm3 (4.00-5.60); WHITE BLOOD COUNT 11.8 K/mm3 (4.0-10.0)
[2019-02-16 12:59] LABS: ALBUMIN 2.3 g/dl (3.4-5.0); BILIRUBIN,TOTAL 0.5 mg/dL (0.2-1); BLOOD UREA NITROGEN 25.3 mg/dL (7-18); CALCIUM 8.2 mg/dL (8.5-10.1); CREATININE 1.4 mg/dL (0.55-1.3); POTASSIUM 3.6 mmol/L (3.5-5.1)
--- NOTE | 2019-02-16 15:42 | PN ---
Progress Note (short form) - Note Progress Note: Patient known for multiple decubitii for several decades Re-admitted for Urinary tract Infection Consulted for lower back decubitii Looks thinner , lost weight , states he has been in and out of Rehab/hospitals Sacral wounds evaluated, majority wounds have Epithelized....small Open wounds along periphery with granulation tissue Minimal discharge, no pus, minimal erythema. ( Patient states he stopped smoking x 6months, has been using diluted Betadine dressings applied by mother daily . First time in years these look healed (majority)...Positive result from cessation of smoking, patient told Significant erythema Left Inguinal /Hip area, warm....? Related to his on going UTI Labs values noted Plan : Mild lubricant on Lower back and sacral wounds Left Inguinal erythema could be related to UTI, requiring Urology evaluation Treatment wounds: Aqua fore lubrication daily for lower back wounds Low Pressure mattress Frequent position change Continue Medical Management
--- NOTE | 2019-02-16 19:46 | PN ---
Progress Note (short form) - Note Progress Note: UROLOGY NOTE: Pt with neurogenic bladder and permanent hull drainage. h/o bilateral renal staghorn w/ left PCN placed at [facility] last month. VS tmax 99.4, wbc 11.8, bun/cr 24/1.4 Abd distended. hull cath changed to 18 fr 10cc. Percutaneous drainage was purulent. Will rec left anterograde nephrostogram w/ possible internalization of left jj stent.
--- NOTE | 2019-02-16 21:01 | CONSULT ---
Consult Consult Specialty:: Surgery Reason for Consultation:: left lower abdominal wall cellulitis - History of Present Illness History of Present Illness: Patient is a 53 y/o male with past medical history of T6 paraplegia with neurogenic bladder and indwelling catheter, Nephrolithiasis (s/p lithotripsy and ureteral stent), recurrent UTIs, chronic constipation, left peritoneal/ ilopsoas abscess drainage catheter in place. Patient presented from SNF for urinary retention, cloudy urine, and abdominal distention for 2 days. Patient also complained of experiencing fever, chills, SOB and lightheadedness. 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 ASSISTANT: No: Alzheimer's Cardio/Vascular: No: AFIB Pulmonary: Yes: COPD Gastrointestinal: Yes: Constipation (Neurogenic bowel with persistent obstipation and megasigmoid), GI Bleed, Other (Hirschsprung's disease, neurogenic bowel) Hepatobiliary: Yes: Cholelithiasis Renal/: Yes: Neurogenic Bladder (indwelling Pelaez), Renal Calculi (bilateral staghorn with h/o obstructions and other calculi), UTI, Other (JJ bilat stents, permanent Pelaez; partially duplicated left renal collecting system) Infectious Disease: Yes: MRSA, Other (ESBL, resistant organisms, multiple abx courses; recurrent L retroperitoneal -> flank abscess secondary to urinary overflow from kidney s/p multiple percutaneous interventions with intermittent hydronephrosis) Musculoskeletal: Yes: Paraplegia (T6 level), Other (multiple sacral and ischial decubiti) - Past Surgical History Past Surgical History: Yes: Stent (bilateral ureteral stents - multiple exchanges) Additional Surgical History: PCN - Alcohol/Substance Use Hx Alcohol Use: No History of Substance Use: reports: None (for at least a year) - Smoking History Smoking history: Current every day smoker Have you smoked in the past 12 months: No Aproximately how many cigarettes per day: 20 If you are a former smoker, when did you quit?: 03/2014 - Social History Usual Living Arrangement: With Parent ADL: Support Services (his mother lives in the same house also has home health aides) History of Recent Travel: No Home Medications - Allergies Allergies/Adverse Reactions: Allergies Allergy/AdvReac Type Severity Reaction Status Date / Time ampicillin Allergy Mild Itching Verified 02/09/19 05:30 polymyxin B Allergy Mild Itching Verified 02/09/19 05:30 - Home Medications Home Medications: Ambulatory Orders Multivitamin [Multiple Vitamins] 1 tab PO DAILY 08/04/18 Acetaminophen [Tylenol .Regular Strength -] 650 mg PO Q6H PRN tablet 09/09/18 Docusate Sodium [Colace -] 100 mg PO BID capsule 09/09/18 Magnesium Hydrox 2400MG/30Ml [Milk of Magnesia -] 30 ml PO DAILY PRN cup Methyl Salicylate/Menthol Oint [Analgesic [place] -] 1 applic TP Q6H PRN applic Sennosides [Senna -] 2 tab PO HS tablet 09/09/18 Simethicone [Mylicon -] 80 mg PO Q4H PRN tab.chew 09/09/18 Albuterol 0.083% Nebulizer Estrellita [Ventolin 0.083% Nebulizer Soln -] 1 amp NEB Q6H PRN amp 02/13/19 Physical Exam Vital Signs: Vital Signs Temperature 99.5 F 02/16/19 16:30 Pulse Rate 104 H 02/16/19 14:00 Respiratory Rate 18 02/16/19 14:00 Blood Pressure 102/60 02/16/19 14:00 O2 Sat by Pulse Oximetry (%) 96 02/16/19 09:00 Constitutional: Yes: No Distress HENT: Yes: Normocephalic Neck: Yes: Supple Cardiovascular: Yes: Regular Rate and Rhythm Respiratory: Yes: CTA Bilaterally Gastrointestinal: Yes: Distention, Other (larga area of pitting edema and erythema of left lower abdomen extending to the left flank) Renal/: Yes: Other (purulent nephrostomy and Pelaez drainage) Labs: CBC, BMP 02/16/19 11:30 02/16/19 11:30 Problem List - Problems (1) Cellulitis of left abdominal wall Assessment/Plan: r/o recurrent retroperitoneal abscess, r/o necrotizing soft tissue infection CT A/P stat - patient is refusing and wants it done in am ID f/u Code(s): L03.311 - CELLULITIS OF ABDOMINAL WALL
--- NOTE | 2019-02-16 21:18 | HOSP ---
Subjective - Review of Symptoms Events since last encounter: 53 y/o male with past medical history of T6 paraplegia with neurogenic bladder and indwelling catheter, Nephrolithiasis (s/p lithotripsy and ureteral stent), recurrent UTIs, chronic constipation, left peritoneal/ilopsoas abscess drainage catheter in place. Patient presented from SNF for urinary retention, cloudy urine, and abdominal distention for 2 days. Patient also complained of experiencing fever, chills, SOB and lightheadedness. Patient currently on Vancomycin and zosyn for UTI and celluliits left abd wall. Upon exam with edema and erythema of left lower abdominal wall. Patient seen by Surgery pending CT scan for abd r/o recurrent retroperitoneal abscess, r/o necrotizing soft tissue infection. Patient is hard stick attempted IV multiple time by nursing, hospitalist unsuccessful. Will need IR follow consider PICC line for continues IV antibiotics. Physical Examination Vital Signs: Vital Signs Temperature 99.5 F 02/16/19 16:30 Pulse Rate 104 H 02/16/19 14:00 Respiratory Rate 18 02/16/19 14:00 Blood Pressure 102/60 02/16/19 14:00 O2 Sat by Pulse Oximetry (%) 96 02/16/19 09:00 Constitutional: Yes: No Distress Eyes: Yes: Conjunctiva Clear, EOM Intact HENT: Yes: Atraumatic, Normocephalic Neck: Yes: Supple, Trachea Midline Cardiovascular: Yes: Regular Rate and Rhythm Respiratory: Yes: Regular, CTA Bilaterally Gastrointestinal: Yes: Normal Bowel Sounds, Soft, Abdomen, Obese, Ascites, Other (noted with left side abdomen with erythema and edema) Labs: CBC, BMP 02/16/19 11:30 02/16/19 11:30 Hospitalist Encounter Assessment: #UTI #cellulitis - pt hard stick attepted multiple time - need IR follow up, need PICC line - pending CT abd in AM r/o retroperitoneal abscess, r/o necrotizing soft tissue infection
[2019-02-16] MEDS: SENNOSIDES 8.6MG TABLET (FP) PO SCH (22:09)
[2019-02-17] MEDS: PIPERACILLIN/TAZOB 3.375 GM 3.375 GM in DEXTROSE 5%-WATER - 50 ML IVPB SCH ×3 (02:30→17:57)
[2019-02-17] MEDS: VANCOMYCIN 1 GRAM (PRE-DOCKED) 1,000 MG/250 ML BAG IVPB SCH ×2 (06:02→17:57)
[2019-02-17] MEDS ORDERED: INSULIN (LEVEMIR) 100 UNITS/ML UNITS SQ ONE (06:42)
[2019-02-17 08:06] LABS: HEMATOCRIT 28.3 % (35.4-49); HEMOGLOBIN 9.1 GM/dL (11.7-16.9); MCH 26.1 pg (25.7-33.7); MCHC 32.1 g/dl (32.0-35.9); MEAN CELL VOLUME 81.3 fl (80-96); MEAN PLT VOLUME 7.5 fl (7.5-11.1); PLATELET COUNT 262 K/MM3 (134-434); RBC 3.48 M/mm3 (4.00-5.60); RDW 18.1 % (11.9-15.9); WHITE BLOOD COUNT 11.6 K/mm3 (4.0-10.0)
[2019-02-17 08:23] LABS: ALBUMIN 2.2 g/dl (3.4-5.0); BILIRUBIN,TOTAL 0.4 mg/dL (0.2-1); BLOOD UREA NITROGEN 23.3 mg/dL (7-18); CALCIUM 8.8 mg/dL (8.5-10.1); POTASSIUM 3.5 mmol/L (3.5-5.1); TOT PROT 6.9 g/dl (6.4-8.2)
--- NOTE | 2019-02-17 09:51 | PN ---
Progress Note, Physician Chief Complaint: Abdominal Distention Paraplegia Neurogenic Bladder History of Present Illness: Previous notes and events reviewed awake and alert NAD erythema and edema noted on LLQ extending to L flank by nephrostomy tube~tender and warm to touch afebrile leukocytosis repeat BC neg no IV access after multiple attempts will call anesthesia for medline - Current Medication List Current Medications: Active Medications Acetaminophen (Tylenol -) 650 mg PO Q6H PRN PRN Reason: PAIN LEVEL 1-5 Last Admin: 02/16/19 17:29 Dose: 650 mg Albuterol Sulfate (Ventolin 0.083% Nebulizer Soln -) 1 amp NEB Q6H PRN PRN Reason: SHORT OF BREATH/WHEEZING Docusate Sodium (Colace -) 100 mg PO BID GISEL Last Admin: 02/16/19 22:10 Dose: 100 mg Vancomycin HCl (Vancomycin (Pre-Docked)) 1,000 mg in 250 mls @ 166.667 mls/hr IVPB BID@0600,1800 GISEL; Protocol Last Admin: 02/17/19 06:02 Dose: Not Given Piperacillin Sod/Tazobactam (Sod 3.375 gm/ Dextrose) 50 mls @ 100 mls/hr IVPB Q8H-IV GISEL; Protocol Last Admin: 02/17/19 02:30 Dose: Not Given Lactulose (Cephulac (Oral Use)) 20 gm PO TID PRN PRN Reason: CONSTIPATION Magnesium Hydroxide (Milk Of Magnesia -) 30 ml PO DAILY PRN PRN Reason: CONSTIPATION Last Admin: 02/13/19 09:41 Dose: 30 ml Methyl Salicylate (Osmar-Moreno -) 1 applic TP Q6H PRN PRN Reason: BACK PAIN Multivitamins/Minerals/Vitamin C (Tab-A-Vit -) 1 tab PO DAILY GISEL Last Admin: 02/16/19 09:30 Dose: 1 tab Pantoprazole Sodium (Protonix -) 40 mg PO DAILY GISEL Last Admin: 02/16/19 09:30 Dose: 40 mg Senna (Senna -) 2 tab PO HS GISEL Last Admin: 02/16/19 22:09 Dose: 2 tab Simethicone (Mylicon -) 80 mg PO Q4H PRN PRN Reason: GAS Last Admin: 02/16/19 09:30 Dose: 80 mg - Objective Vital Signs: Vital Signs Temperature 99.1 F 12/05/19 00:00 Pulse Rate 104 H 02/16/19 14:00 Respiratory Rate 18 02/16/19 14:00 Blood Pressure 102/60 02/16/19 14:00 O2 Sat by Pulse Oximetry (%) 96 02/16/19 21:00 Constitutional: Yes: No Distress, Calm Eyes: Yes: Conjunctiva Clear HENT: Yes: Atraumatic Cardiovascular: Yes: Regular Rate and Rhythm Respiratory: Yes: Regular, CTA Bilaterally Gastrointestinal: Yes: Normal Bowel Sounds, Soft, Distention Genitourinary: Yes: Pelaez Present, Other (L nephrostomy) Musculoskeletal: Yes: Muscle Weakness Extremities: Yes: WNL Integumentary: Yes: Erythema (LLQ to L flank) Wound/Incision: Yes: Dressing Dry and Intact Neurological: Yes: Alert, Oriented Psychiatric: Yes: Alert, Oriented Labs: CBC, BMP 02/17/19 07:20 02/17/19 07:20 INR, PTT INR 1.07 (0.83-1.09) 02/09/19 00:05 Microbiology 02/15/19 19:25 Blood - Peripheral Venous Blood Culture - Preliminary NO GROWTH OBTAINED AFTER 24 HOURS, INCUBATION TO CONTINUE FOR 4 DAYS. 02/15/19 19:10 Blood - Peripheral Venous Blood Culture - Preliminary NO GROWTH OBTAINED AFTER 24 HOURS, INCUBATION TO CONTINUE FOR 4 DAYS. 02/08/19 23:15 Blood - Peripheral Venous Blood Culture - Final NO GROWTH AFTER 5 DAYS INCUBATION 02/08/19 23:15 Blood - Peripheral Venous Blood Culture - Final NO GROWTH AFTER 5 DAYS INCUBATION 02/08/19 20:25 Urine - Urine - Catheterized Urine Culture - Final Proteus Mirabilis Vr Ec Faecalis Problem List - Problems (1) Chronic indwelling Pelaez catheter Assessment/Plan: -2/2 neurogenic bladder -Urology on board -L nephrostomy and urology recommend nephrostogram Code(s): Z92.89 - PERSONAL HISTORY OF OTHER MEDICAL TREATMENT (2) Constipated Assessment/Plan: -GI consult -Senna, Colace -Lactulose -FUA shows fecal impaction Code(s): K59.00 - CONSTIPATION, UNSPECIFIED Qualifiers: Constipation type: unspecified constipation type Qualified Code(s): K59.00 - Constipation, unspecified (3) UTI (urinary tract infection) Assessment/Plan: -ID consult -UA 3+ leuks, + nitrites, 1+ blood , 2+ protein -received Meropenem in ER -Vancomycin, Zosyn -no leukocytosis -febrile -repeat UC pending Code(s): N39.0 - URINARY TRACT INFECTION, SITE NOT SPECIFIED Qualifiers: Urinary tract infection type: site unspecified Hematuria presence: with hematuria Qualified Code(s): N39.0 - Urinary tract infection, site not specified; R31.9 - Hematuria, unspecified (4) COPD (chronic obstructive pulmonary disease) Assessment/Plan: -Bronchodilators -Keep SpO2 >90% -O2 via NC -Pulm on board Code(s): J44.9 - CHRONIC OBSTRUCTIVE PULMONARY DISEASE, UNSPECIFIED Qualifiers: COPD type: unspecified COPD Qualified Code(s): J44.9 - Chronic obstructive pulmonary disease, unspecified (5) Neurogenic bladder Assessment/Plan: -Urology consult -FC changed by Urology Code(s): N31.9 - NEUROMUSCULAR DYSFUNCTION OF BLADDER, UNSPECIFIED (6) Weakness Assessment/Plan: -Fall risk -PT Code(s): R53.1 - WEAKNESS (7) JOSE CRUZ (acute kidney injury) Assessment/Plan: -BUN/Cr 23.3/1.0 -monitor renal function Code(s): N17.9 - ACUTE KIDNEY FAILURE, UNSPECIFIED (8) MDRO (multiple drug resistant organisms) resistance Assessment/Plan: -contact precaution Code(s): Z16.35 - RESISTANCE TO MULTIPLE ANTIMICROBIAL DRUGS (9) Fever Assessment/Plan: -ID on board -repeat BC and UC -tylenol prn for temp >100F -Vancomycin and Zosyn -no leukocytosis Code(s): R50.9 - FEVER, UNSPECIFIED (10) Cellulitis of left abdominal wall Assessment/Plan: -ID on board -Surgical consult -leukocytosis -afebrile -Vancomycin, Zosyn NO IV ACCESS -Abd/Pelvic CT scan ordered to R/O Retroperitoneal abscess, R/O nectrotizing tissue infection -BC neg Code(s): L03.311 - CELLULITIS OF ABDOMINAL WALL Assessment/Plan see problem list dvt ppx
[2019-02-17] MEDS ORDERED: DEXTROSE 5%-WATER - 50 ML IVPB ONE (11:23)
[2019-02-17] MEDS ORDERED: PIPERACILLIN/TAZOBACTAM 3.375 GM VIAL IVPB ONE (11:23)
[2019-02-17] MEDS: PANTOPRAZOLE 40 MG TABLET (FP) PO SCH (11:28)
[2019-02-17] MEDS: MULTIVITAMINS (DAILY MVI) TABLET (FP) PO SCH (11:28)
[2019-02-17] MEDS: DOCUSATE SODIUM 100 MG CAPSULE (FP) PO SCH ×2 (11:29→21:07)
[2019-02-17] MEDS: SENNOSIDES 8.6MG TABLET (FP) PO SCH (21:07)
[2019-02-17] MEDS: SIMETHICONE 80 MG TAB.CHEW (FP) PO PRN (21:07)
--- NOTE | 2019-02-17 22:05 | PN ---
Progress Note, Physician History of Present Illness: CT shows recurrent left retroperitoneal abscess tracking to the lower anterior abdominal wall - Current Medication List Current Medications: Active Medications Acetaminophen (Tylenol -) 650 mg PO Q6H PRN PRN Reason: PAIN LEVEL 1-5 Last Admin: 02/16/19 17:29 Dose: 650 mg Albuterol Sulfate (Ventolin 0.083% Nebulizer Soln -) 1 amp NEB Q6H PRN PRN Reason: SHORT OF BREATH/WHEEZING Docusate Sodium (Colace -) 100 mg PO BID GISEL Last Admin: 02/17/19 21:07 Dose: 100 mg Emollient Ointment (Aquaphor -) 1 applic TP DAILY GISEL Vancomycin HCl (Vancomycin (Pre-Docked)) 1,000 mg in 250 mls @ 166.667 mls/hr IVPB BID@0600,1800 GISEL; Protocol Last Admin: 02/17/19 17:57 Dose: Not Given Piperacillin Sod/Tazobactam (Sod 3.375 gm/ Dextrose) 50 mls @ 100 mls/hr IVPB Q8H-IV GISEL; Protocol Last Admin: 02/17/19 17:57 Dose: Not Given Lactulose (Cephulac (Oral Use)) 20 gm PO TID PRN PRN Reason: CONSTIPATION Magnesium Hydroxide (Milk Of Magnesia -) 30 ml PO DAILY PRN PRN Reason: CONSTIPATION Last Admin: 02/13/19 09:41 Dose: 30 ml Methyl Salicylate (Osmar-Moreno -) 1 applic TP Q6H PRN PRN Reason: BACK PAIN Multivitamins/Minerals/Vitamin C (Tab-A-Vit -) 1 tab PO DAILY GISEL Last Admin: 02/17/19 11:28 Dose: 1 tab Pantoprazole Sodium (Protonix -) 40 mg PO DAILY GISEL Last Admin: 02/17/19 11:28 Dose: 40 mg Senna (Senna -) 2 tab PO HS GISEL Last Admin: 02/17/19 21:07 Dose: 2 tab Simethicone (Mylicon -) 80 mg PO Q4H PRN PRN Reason: GAS Last Admin: 02/17/19 21:07 Dose: 80 mg - Objective Vital Signs: Vital Signs Temperature 98.4 F 02/17/19 16:30 Pulse Rate 104 H 02/16/19 14:00 Respiratory Rate 18 02/16/19 14:00 Blood Pressure 102/60 02/16/19 14:00 O2 Sat by Pulse Oximetry (%) 96 02/16/19 21:00 Gastrointestinal: Yes: Other (left lower abdominal edema and erythema unchanged) Genitourinary: Yes: Other (nephrostomy catheter and hull in place with pyuria) Labs: CBC, BMP 02/17/19 07:20 02/17/19 07:20 INR, PTT INR 1.07 (0.83-1.09) 02/09/19 00:05 Problem List - Problems (1) Cellulitis of left abdominal wall Assessment/Plan: r/o recurrent retroperitoneal abscess, r/o necrotizing soft tissue infection CT A/P stat - patient is refusing and wants it done in am ID f/u Code(s): L03.311 - CELLULITIS OF ABDOMINAL WALL (2) Retroperitoneal abscess Assessment/Plan: recurrent abscess likely from source & IR f/u for percutaneous drainage of retroperitoneal abscess no general surgery issue requiring intervention at this time patient advised to transfer to [facility] but refused agrees to have percutaneous drainage of retroperitoneal abscess Code(s): K68.19 - OTHER RETROPERITONEAL ABSCESS
[2019-02-17] MEDS: ACETAMINOPHEN 325 MG TABLET (FP) PO PRN (23:08)
[2019-02-18] MEDS: PIPERACILLIN/TAZOB 3.375 GM 3.375 GM in DEXTROSE 5%-WATER - 50 ML IVPB SCH ×3 (01:32→17:08)
[2019-02-18] MEDS: VANCOMYCIN 1 GRAM (PRE-DOCKED) 1,000 MG/250 ML BAG IVPB SCH ×2 (06:01→17:08)
[2019-02-18 08:11] LABS: HEMATOCRIT 28.9 % (35.4-49); HEMOGLOBIN 9.1 GM/dL (11.7-16.9); MCH 25.7 pg (25.7-33.7); MCHC 31.5 g/dl (32.0-35.9); MEAN CELL VOLUME 81.8 fl (80-96); MEAN PLT VOLUME 7.6 fl (7.5-11.1); PLATELET COUNT 303 K/MM3 (134-434); RBC 3.54 M/mm3 (4.00-5.60); WHITE BLOOD COUNT 8.6 K/mm3 (4.0-10.0)
[2019-02-18 08:33] LABS: ALBUMIN 2.4 g/dl (3.4-5.0); BILIRUBIN,TOTAL 0.3 mg/dL (0.2-1); BLOOD UREA NITROGEN 20.9 mg/dL (7-18); CALCIUM 8.9 mg/dL (8.5-10.1); CREATININE 0.7 mg/dL (0.55-1.3); POTASSIUM 3.9 mmol/L (3.5-5.1); TOT PROT 7.2 g/dl (6.4-8.2)
--- NOTE | 2019-02-18 10:02 | PN ---
Progress Note, Physician Chief Complaint: Abdominal Distention Paraplegia Neurogenic Bladder History of Present Illness: Previous notes and events reviewed awake and alert NAD no IV access, will need central line placed by IR afebrile downtrend in WBC shows no leukocytosis CTAP results reviewed erythema to LLQ warm to touch - Current Medication List Current Medications: Active Medications Acetaminophen (Tylenol -) 650 mg PO Q6H PRN PRN Reason: PAIN LEVEL 1-5 Last Admin: 02/17/19 23:08 Dose: 650 mg Albuterol Sulfate (Ventolin 0.083% Nebulizer Soln -) 1 amp NEB Q6H PRN PRN Reason: SHORT OF BREATH/WHEEZING Docusate Sodium (Colace -) 100 mg PO BID GISEL Last Admin: 02/17/19 21:07 Dose: 100 mg Emollient Ointment (Aquaphor -) 1 applic TP DAILY GISEL Vancomycin HCl (Vancomycin (Pre-Docked)) 1,000 mg in 250 mls @ 166.667 mls/hr IVPB BID@0600,1800 GISEL; Protocol Last Admin: 02/18/19 06:01 Dose: Not Given Piperacillin Sod/Tazobactam (Sod 3.375 gm/ Dextrose) 50 mls @ 100 mls/hr IVPB Q8H-IV GISEL; Protocol Last Admin: 02/18/19 01:32 Dose: Not Given Lactulose (Cephulac (Oral Use)) 20 gm PO TID PRN PRN Reason: CONSTIPATION Magnesium Hydroxide (Milk Of Magnesia -) 30 ml PO DAILY PRN PRN Reason: CONSTIPATION Last Admin: 02/13/19 09:41 Dose: 30 ml Methyl Salicylate (Osmar-Moreno -) 1 applic TP Q6H PRN PRN Reason: BACK PAIN Multivitamins/Minerals/Vitamin C (Tab-A-Vit -) 1 tab PO DAILY GISEL Last Admin: 02/17/19 11:28 Dose: 1 tab Pantoprazole Sodium (Protonix -) 40 mg PO DAILY GISEL Last Admin: 02/17/19 11:28 Dose: 40 mg Senna (Senna -) 2 tab PO HS GISEL Last Admin: 02/17/19 21:07 Dose: 2 tab Simethicone (Mylicon -) 80 mg PO Q4H PRN PRN Reason: GAS Last Admin: 02/17/19 21:07 Dose: 80 mg - Objective Vital Signs: Vital Signs Temperature 98.1 F 02/18/19 09:01 Pulse Rate 95 H 02/18/19 09:01 Respiratory Rate 18 02/18/19 09:01 Blood Pressure 102/72 02/18/19 09:01 O2 Sat by Pulse Oximetry (%) 96 02/16/19 21:00 Constitutional: Yes: No Distress, Calm Eyes: Yes: Conjunctiva Clear HENT: Yes: Atraumatic Cardiovascular: Yes: Regular Rate and Rhythm Respiratory: Yes: Regular, CTA Bilaterally Gastrointestinal: Yes: Normal Bowel Sounds, Soft, Distention Genitourinary: Yes: Pelaez Present, Other (L nephrostomy tube) Musculoskeletal: Yes: Muscle Weakness Extremities: Yes: WNL Integumentary: Yes: Erythema (LLQ and L flank, warm to touch with pitting edema) Neurological: Yes: Alert, Oriented Psychiatric: Yes: Alert, Oriented Labs: CBC, BMP 02/18/19 07:20 02/18/19 07:20 INR, PTT INR 1.07 (0.83-1.09) 02/09/19 00:05 Microbiology 02/16/19 15:50 Urine - Urine Nephrostomy Tube Left Urine Culture - Preliminary Proteus Species Non Lactose Fermenting Gnb 02/15/19 18:30 Urine - Urine Pelaez Urine Culture - Preliminary Proteus Species Group D Strep Or Entero Coccus 02/15/19 19:25 Blood - Peripheral Venous Blood Culture - Preliminary NO GROWTH OBTAINED AFTER 48 HOURS, INCUBATION TO CONTINUE FOR 3 DAYS. 02/15/19 19:10 Blood - Peripheral Venous Blood Culture - Preliminary NO GROWTH OBTAINED AFTER 48 HOURS, INCUBATION TO CONTINUE FOR 3 DAYS. 02/08/19 23:15 Blood - Peripheral Venous Blood Culture - Final NO GROWTH AFTER 5 DAYS INCUBATION 02/08/19 23:15 Blood - Peripheral Venous Blood Culture - Final NO GROWTH AFTER 5 DAYS INCUBATION 02/08/19 20:25 Urine - Urine - Catheterized Urine Culture - Final Proteus Mirabilis Vr Ec Faecalis Problem List - Problems (1) Chronic indwelling Pelaez catheter Assessment/Plan: -2/2 neurogenic bladder -Urology on board Code(s): Z92.89 - PERSONAL HISTORY OF OTHER MEDICAL TREATMENT (2) Constipated Assessment/Plan: -GI consult -Senna, Colace -Soap Lesley enemas Code(s): K59.00 - CONSTIPATION, UNSPECIFIED Qualifiers: Constipation type: unspecified constipation type Qualified Code(s): K59.00 - Constipation, unspecified (3) UTI (urinary tract infection) Assessment/Plan: -ID consult -UA 3+ leuks, + nitrites, 1+ blood , 2+ protein -UC positive -Vancomycin, Zosyn -no leukocytosis -afebrile Code(s): N39.0 - URINARY TRACT INFECTION, SITE NOT SPECIFIED Qualifiers: Urinary tract infection type: site unspecified Hematuria presence: with hematuria Qualified Code(s): N39.0 - Urinary tract infection, site not specified; R31.9 - Hematuria, unspecified (4) COPD (chronic obstructive pulmonary disease) Assessment/Plan: -Bronchodilators -Keep SpO2 >90% -O2 via NC -Pulm on board Code(s): J44.9 - CHRONIC OBSTRUCTIVE PULMONARY DISEASE, UNSPECIFIED Qualifiers: COPD type: unspecified COPD Qualified Code(s): J44.9 - Chronic obstructive pulmonary disease, unspecified (5) Neurogenic bladder Assessment/Plan: -Urology on board Code(s): N31.9 - NEUROMUSCULAR DYSFUNCTION OF BLADDER, UNSPECIFIED (6) Weakness Assessment/Plan: -Fall risk precautions -PT Code(s): R53.1 - WEAKNESS (7) JOSE CRUZ (acute kidney injury) Assessment/Plan: -BUN/Cr 20.9/0.7 -monitor renal function -Renal consult Code(s): N17.9 - ACUTE KIDNEY FAILURE, UNSPECIFIED (8) MDRO (multiple drug resistant organisms) resistance Assessment/Plan: -contact precaution Code(s): Z16.35 - RESISTANCE TO MULTIPLE ANTIMICROBIAL DRUGS (9) Cellulitis of left abdominal wall Assessment/Plan: -ID on board -Surgical consult -no leukocytosis -afebrile -Vancomycin, Zosyn -no IV access IR consult for central line placement -Abd/Pelvic CT scan shows increased size of a left iliopsoas fluid collection noted which is also now extends into left anterior pelvic wall -IR consult for percutaneous drainage of retroperitoneal abscess -BC neg Code(s): L03.311 - CELLULITIS OF ABDOMINAL WALL Assessment/Plan problem list dvt ppx
[2019-02-18] MEDS: PANTOPRAZOLE 40 MG TABLET (FP) PO SCH (12:18)
[2019-02-18] MEDS: MULTIVITAMINS (DAILY MVI) TABLET (FP) PO SCH (12:18)
[2019-02-18] MEDS: DOCUSATE SODIUM 100 MG CAPSULE (FP) PO SCH ×2 (12:18→22:11)
[2019-02-18] MEDS: MINERAL OIL/PET HY-PHL TOPICAL OINTMENT 454 GM JAR TP SCH (12:19)
--- NOTE | 2019-02-18 13:22 | PN ---
DATE OF DICTATION: 02/17/2019 Patient is a 53-year-old male, well-known to me for the past 2 decades. Patient presented to the hospital last week with cloudy urine, abdominal distention, and complaining of fever and chills. He also is complaining of shortness of breath and lightheadedness. Patient also noted to have pitting edema and some erythema of the lower abdominal wall mostly over the left lower quadrant. Patient is a T6 paraplegic with a neurogenic bladder and an indwelling Pelaez catheter for the past 20 years. Patient refuses a suprapubic tube and has been treated at [facility] for bilateral staghorn calculi. Patient is status post bilateral percutaneous nephrolithotripsy. He recently underwent a left percutaneous nephrolithotripsy at [facility] and underwent a left percutaneous drain placement. Presently the drain is placing purulent urine. The patient's T-max is 99.5. His blood pressure is 102/60, pulse 104. White count is 11.8, hemoglobin 9.7, hematocrit 30.6. BUN is 25.3, creatinine 1.4. The patient underwent a CT scan of his abdomen today. Official report is still not on the chart, but reading reveals large retroperitoneal collection and large amount of left hydronephrosis. IMPRESSION: At present is retroperitoneal extravasation with left hydronephrosis secondary to nephrolithiasis. PLAN: Patient should undergo percutaneous drainage of his left retroperitoneum. He should also undergo left percutaneous nephrostogram, possible change of nephrostomy tube if there is an obstruction. Will contact Interventional Radiology for the procedure. Alison [id number]
--- NOTE | 2019-02-18 21:57 | PN ---
Progress Note, Physician History of Present Illness: AWAKE, ALERT IN BED NO COMPLAINTS TEMPS DOWN AFEBRILE WBC WNL BLOOD CULTURES NO GROWTH NO IV ACCESS - Current Medication List Current Medications: Active Medications Acetaminophen (Tylenol -) 650 mg PO Q6H PRN PRN Reason: PAIN LEVEL 1-5 Last Admin: 02/17/19 23:08 Dose: 650 mg Albuterol Sulfate (Ventolin 0.083% Nebulizer Soln -) 1 amp NEB Q6H PRN PRN Reason: SHORT OF BREATH/WHEEZING Docusate Sodium (Colace -) 100 mg PO BID GISEL Last Admin: 02/18/19 12:18 Dose: 100 mg Emollient Ointment (Aquaphor -) 1 applic TP DAILY GISEL Last Admin: 02/18/19 12:19 Dose: 1 applic Lactulose (Cephulac (Oral Use)) 20 gm PO TID PRN PRN Reason: CONSTIPATION Magnesium Hydroxide (Milk Of Magnesia -) 30 ml PO DAILY PRN PRN Reason: CONSTIPATION Last Admin: 02/13/19 09:41 Dose: 30 ml Methyl Salicylate (Osmar-Moreno -) 1 applic TP Q6H PRN PRN Reason: BACK PAIN Multivitamins/Minerals/Vitamin C (Tab-A-Vit -) 1 tab PO DAILY [facility] Last Admin: 02/18/19 12:18 Dose: 1 tab Pantoprazole Sodium (Protonix -) 40 mg PO DAILY [facility] Last Admin: 02/18/19 12:18 Dose: 40 mg Senna (Senna -) 2 tab PO HS GISEL Last Admin: 02/17/19 21:07 Dose: 2 tab Simethicone (Mylicon -) 80 mg PO Q4H PRN PRN Reason: GAS Last Admin: 02/17/19 21:07 Dose: 80 mg Trimethoprim/Sulfamethoxazole (Bactrim Ds -) 1 each PO BID [facility] - Objective Vital Signs: Vital Signs Temperature 98.8 F 02/18/19 17:40 Pulse Rate 72 02/18/19 13:00 Respiratory Rate 18 02/18/19 13:00 Blood Pressure 100/57 L 02/18/19 13:00 O2 Sat by Pulse Oximetry (%) 95 02/18/19 09:00 Constitutional: Yes: No Distress Eyes: Yes: Conjunctiva Clear Cardiovascular: Yes: Regular Rate and Rhythm, S1, S2 Respiratory: Yes: Diminished Gastrointestinal: Yes: Normal Bowel Sounds, Soft, Other (DISTENDED, TYMPANITIC) Integumentary: Yes: Other (DEREASED ERYTHEMA L GROIN/ FLANK) Labs: CBC, BMP 02/18/19 07:20 02/18/19 07:20 INR, PTT INR 1.07 (0.83-1.09) 02/09/19 00:05 Assessment/Plan FEVER IMPROVED CELLULITIS L GROIN/FLANK IMPROVED CHRONIC L PSOAS COLLECTION/ FISTULA PARAPLEGIA S/P L PCN NEUROGENIC BLADDER/ INDWELLING PINZON SUBSTITUTE BACTRIM DS PO BID COLLECTION DRAINAGE PER /SURG/IR
[2019-02-18] MEDS: SULFAMETHOXAZOLE/TRIMETHOPRIM 800MG/160MG D.S. TABLET PO SCH (22:08)
[2019-02-18] MEDS: SENNOSIDES 8.6MG TABLET (FP) PO SCH (22:11)
[2019-02-18] MEDS: ACETAMINOPHEN 325 MG TABLET (FP) PO PRN (22:56)
[2019-02-19] MEDS: MULTIVITAMINS (DAILY MVI) TABLET (FP) PO SCH (09:41)
[2019-02-19] MEDS: SULFAMETHOXAZOLE/TRIMETHOPRIM 800MG/160MG D.S. TABLET PO SCH ×2 (09:41→23:45)
[2019-02-19] MEDS: DOCUSATE SODIUM 100 MG CAPSULE (FP) PO SCH ×2 (09:41→23:45)
[2019-02-19] MEDS: PANTOPRAZOLE 40 MG TABLET (FP) PO SCH (09:42)
--- NOTE | 2019-02-19 09:52 | PN ---
Progress Note, Physician Chief Complaint: I SPENT 35 MINUTES SPEAKING TO THE PATIENT AND HIS MOM ABOUT THE OVERALL CONDITION. I EXPLAINED THAT ROSLYN HAS A CONDITION WITH AWAKE ALERT + APPETITE + CONSTIPATION - Current Medication List Current Medications: Active Medications Acetaminophen (Tylenol -) 650 mg PO Q6H PRN PRN Reason: PAIN LEVEL 1-5 Last Admin: 02/18/19 22:56 Dose: 325 mg Docusate Sodium (Colace -) 100 mg PO BID [facility] Last Admin: 02/19/19 09:41 Dose: 100 mg Emollient Ointment (Aquaphor -) 1 applic TP DAILY [facility] Last Admin: 02/18/19 12:19 Dose: 1 applic Lactulose (Cephulac (Oral Use)) 20 gm PO TID PRN PRN Reason: CONSTIPATION Magnesium Hydroxide (Milk Of Magnesia -) 30 ml PO DAILY PRN PRN Reason: CONSTIPATION Last Admin: 02/13/19 09:41 Dose: 30 ml Methyl Salicylate (Osmar-Moreno -) 1 applic TP Q6H PRN PRN Reason: BACK PAIN Multivitamins/Minerals/Vitamin C (Tab-A-Vit -) 1 tab PO DAILY [facility] Last Admin: 02/19/19 09:41 Dose: 1 tab Pantoprazole Sodium (Protonix -) 40 mg PO DAILY [facility] Last Admin: 02/19/19 09:42 Dose: 40 mg Senna (Senna -) 2 tab PO HS [facility] Last Admin: 02/18/19 22:11 Dose: Not Given Simethicone (Mylicon -) 80 mg PO Q4H PRN PRN Reason: GAS Last Admin: 02/17/19 21:07 Dose: 80 mg Trimethoprim/Sulfamethoxazole (Bactrim Ds -) 1 each PO BID [facility] Last Admin: 02/19/19 09:41 Dose: 1 each - Objective Vital Signs: Vital Signs Temperature 98.2 F 02/18/19 21:00 Pulse Rate 95 H 02/18/19 21:00 Respiratory Rate 20 02/18/19 21:00 Blood Pressure 125/70 02/18/19 21:00 O2 Sat by Pulse Oximetry (%) 95 02/18/19 09:00 Constitutional: Yes: Mild Distress Cardiovascular: Yes: Regular Rate and Rhythm Respiratory: Yes: WNL Gastrointestinal: Yes: Distention, Other (LEFT FLANK/LOWER QUADRANT INDURATION TENDER, BELOW PEN MARKING (DECREASED IN SIZE)) Genitourinary: Yes: Other Musculoskeletal: Yes: Other Integumentary: Yes: Pressure Ulcer, Venous Stasis Changes Wound/Incision: Yes: Dressing Dry and Intact Neurological: Yes: Loss of Sensation, Pre-Existing Deficit Psychiatric: Yes: Other Labs: CBC, BMP 02/18/19 07:20 02/18/19 07:20 INR, PTT INR 1.07 (0.83-1.09) 02/09/19 00:05 Problem List - Problems (1) Chronic indwelling Pinzon catheter Code(s): Z92.89 - PERSONAL HISTORY OF OTHER MEDICAL TREATMENT (2) Constipated Code(s): K59.00 - CONSTIPATION, UNSPECIFIED Qualifiers: Constipation type: unspecified constipation type Qualified Code(s): K59.00 - Constipation, unspecified (3) Neurogenic bladder Code(s): N31.9 - NEUROMUSCULAR DYSFUNCTION OF BLADDER, UNSPECIFIED (4) UTI (urinary tract infection) Code(s): N39.0 - URINARY TRACT INFECTION, SITE NOT SPECIFIED Qualifiers: Urinary tract infection type: site unspecified Hematuria presence: with hematuria Qualified Code(s): N39.0 - Urinary tract infection, site not specified; R31.9 - Hematuria, unspecified (5) Acquired functional megacolon Code(s): K59.39 - OTHER MEGACOLON (6) Anemia Code(s): D64.9 - ANEMIA, UNSPECIFIED Qualifiers: Anemia type: iron deficiency Other causes of anemia: due to other specified chronic disease (7) COPD (chronic obstructive pulmonary disease) Code(s): J44.9 - CHRONIC OBSTRUCTIVE PULMONARY DISEASE, UNSPECIFIED Qualifiers: COPD type: unspecified COPD Qualified Code(s): J44.9 - Chronic obstructive pulmonary disease, unspecified (8) Decubitus ulcer Code(s): L89.90 - PRESSURE ULCER OF UNSPECIFIED SITE, UNSPECIFIED STAGE Qualifiers: Laterality: unspecified laterality (9) Paraplegia following spinal cord injury Code(s): G82.20 - PARAPLEGIA, UNSPECIFIED Assessment/Plan UROLOGY CONSULT APPRECIATED PINZON PERMANENT CATH PULM F/U NEBS CONTINUE CHECK CXR ABX PER ID WOUND CARE/OFFLOADING TO DECREASE PRESSURE TO SACRAL/BUTTOCK ULCER ABDOMINAL DISTENTION RECTAL ENEMA / LACTULOSE I DISCUSSED PLAN OF CARE WITH MARICEL HIS MOM, AND ROSLYN WILL REORDER CT ABDOMEN NEXT WEEK, I.R. DR HAYDEN FOR DRAINAGE IF NEEDED. ON BACTRIM DC REFUSED LACTULOSE PO, WANTS SOAP SUDD ENEMAS ONLY FOR RELIEF OF CONSTIPATION
[2019-02-19] MEDS: MINERAL OIL/PET HY-PHL TOPICAL OINTMENT 454 GM JAR TP SCH (17:57)
[2019-02-19] MEDS ORDERED: PT OWN MED DRAWER 7, Y5N ONE (18:01)
[2019-02-19] MEDS: SENNOSIDES 8.6MG TABLET (FP) PO SCH (23:45)
[2019-02-19] MEDS: ACETAMINOPHEN 325 MG TABLET (FP) PO PRN (23:46)
[2019-02-19] MEDS: SIMETHICONE 80 MG TAB.CHEW (FP) PO PRN (23:46)
--- NOTE | 2019-02-20 10:54 | PN ---
Progress Note, Physician Chief Complaint: ASLEEP AWAITING I.R. FOR EVAL ON PO ABX - Current Medication List Current Medications: Active Medications Acetaminophen (Tylenol -) 650 mg PO Q6H PRN PRN Reason: PAIN LEVEL 1-5 Last Admin: 02/19/19 23:46 Dose: 650 mg Docusate Sodium (Colace -) 100 mg PO BID [facility] Last Admin: 02/19/19 23:45 Dose: Not Given Emollient Ointment (Aquaphor -) 1 applic TP DAILY [facility] Last Admin: 02/19/19 17:57 Dose: 1 applic Lactulose (Cephulac (Oral Use)) 20 gm PO TID PRN PRN Reason: CONSTIPATION Magnesium Hydroxide (Milk Of Magnesia -) 30 ml PO DAILY PRN PRN Reason: CONSTIPATION Last Admin: 02/13/19 09:41 Dose: 30 ml Methyl Salicylate (Osmar-Moreno -) 1 applic TP Q6H PRN PRN Reason: BACK PAIN Multivitamins/Minerals/Vitamin C (Tab-A-Vit -) 1 tab PO DAILY [facility] Last Admin: 02/19/19 09:41 Dose: 1 tab Pantoprazole Sodium (Protonix -) 40 mg PO DAILY [facility] Last Admin: 02/19/19 09:42 Dose: 40 mg Senna (Senna -) 2 tab PO HS [facility] Last Admin: 02/19/19 23:45 Dose: Not Given Simethicone (Mylicon -) 80 mg PO Q4H PRN PRN Reason: GAS Last Admin: 02/19/19 23:46 Dose: 80 mg Trimethoprim/Sulfamethoxazole (Bactrim Ds -) 1 each PO BID [facility] Last Admin: 02/19/19 23:45 Dose: 1 each - Objective Vital Signs: Vital Signs Temperature 98.3 F 02/19/19 09:00 Pulse Rate 80 02/19/19 09:00 Respiratory Rate 18 02/19/19 09:00 Blood Pressure 116/70 02/19/19 09:00 O2 Sat by Pulse Oximetry (%) 95 02/19/19 09:00 Cardiovascular: Yes: Regular Rate and Rhythm Respiratory: Yes: WNL Gastrointestinal: Yes: Distention, Tenderness (LLQ INDURATION) Genitourinary: Yes: Pinzon Present Edema: No Labs: CBC, BMP 02/18/19 07:20 02/18/19 07:20 INR, PTT INR 1.07 (0.83-1.09) 02/09/19 00:05 Problem List - Problems (1) Chronic indwelling Pinzon catheter Code(s): Z92.89 - PERSONAL HISTORY OF OTHER MEDICAL TREATMENT (2) Constipated Code(s): K59.00 - CONSTIPATION, UNSPECIFIED Qualifiers: Constipation type: unspecified constipation type Qualified Code(s): K59.00 - Constipation, unspecified (3) Neurogenic bladder Code(s): N31.9 - NEUROMUSCULAR DYSFUNCTION OF BLADDER, UNSPECIFIED (4) UTI (urinary tract infection) Code(s): N39.0 - URINARY TRACT INFECTION, SITE NOT SPECIFIED Qualifiers: Urinary tract infection type: site unspecified Hematuria presence: with hematuria Qualified Code(s): N39.0 - Urinary tract infection, site not specified; R31.9 - Hematuria, unspecified (5) Acquired functional megacolon Code(s): K59.39 - OTHER MEGACOLON (6) Anemia Code(s): D64.9 - ANEMIA, UNSPECIFIED Qualifiers: Anemia type: iron deficiency Other causes of anemia: due to other specified chronic disease (7) COPD (chronic obstructive pulmonary disease) Code(s): J44.9 - CHRONIC OBSTRUCTIVE PULMONARY DISEASE, UNSPECIFIED Qualifiers: COPD type: unspecified COPD Qualified Code(s): J44.9 - Chronic obstructive pulmonary disease, unspecified (8) Decubitus ulcer Code(s): L89.90 - PRESSURE ULCER OF UNSPECIFIED SITE, UNSPECIFIED STAGE Qualifiers: Laterality: unspecified laterality (9) Paraplegia following spinal cord injury Code(s): G82.20 - PARAPLEGIA, UNSPECIFIED Assessment/Plan UROLOGY CONSULT APPRECIATED PINZON PERMANENT CATH PULM F/U NEBS CONTINUE CHECK CXR ABX PER ID WOUND CARE/OFFLOADING TO DECREASE PRESSURE TO SACRAL/BUTTOCK ULCER ABDOMINAL DISTENTION RECTAL ENEMA / LACTULOSE I DISCUSSED PLAN OF CARE WITH MARICEL HIS MOM, AND ROSLYN WILL REORDER CT ABDOMEN NEXT WEEK, I.R. DR HAYDEN FOR DRAINAGE IF NEEDED. ON BACTRIM DC REFUSED LACTULOSE PO, WANTS SOAP SUDD ENEMAS ONLY FOR RELIEF OF CONSTIPATION
[2019-02-20] MEDS: PANTOPRAZOLE 40 MG TABLET (FP) PO SCH (11:49)
[2019-02-20] MEDS: DOCUSATE SODIUM 100 MG CAPSULE (FP) PO SCH ×2 (11:50→21:48)
[2019-02-20] MEDS: MULTIVITAMINS (DAILY MVI) TABLET (FP) PO SCH (11:50)
[2019-02-20] MEDS: SULFAMETHOXAZOLE/TRIMETHOPRIM 800MG/160MG D.S. TABLET PO SCH ×2 (11:50→21:45)
[2019-02-20] MEDS: MINERAL OIL/PET HY-PHL TOPICAL OINTMENT 454 GM JAR TP SCH (11:52)
--- NOTE | 2019-02-20 17:47 | PN ---
Progress Note (short form) - Note Progress Note: : Pt with Ct evidence of increased collection of left illiopsoas fluid, b/l severe hydronephrosis 2/2 b/l renal stones. Will need I.R for percutaneous drainage of abscess and readjustment of right perc nephrostomy for proper drainage of kidney. This should be done as soon as possible
--- NOTE | 2019-02-20 19:49 | CONS ---
DATE OF CONSULTATION: DATE OF DICTATION: 02/20/2019 The patient is basically bedridden with severe distention of the abdomen. He did have a soft bowel movement today but still has severe distention of the abdomen due to high colonic fecal impaction. A CT scan performed on Thursday evening revealed increased size of left iliopsoas fluid collection, which also extended into the left anterior pelvic wall. Again, there is bilateral hydronephrosis. There is a large oblong-shaped stone seen in the mid to upper third of the left ureter. There are bilateral renal stones seen again. There is a left-sided percutaneous nephrostomy to be in proper place. A Pelaez catheter is also seen and a collapsed bladder. The urinary bladder is markedly displaced posteriorly secondary to rectal distention. Patient should undergo a percutaneous drainage of this retroperitoneal collection. Will get IR consult to perform procedure. Alison [id number]
[2019-02-20] MEDS: SIMETHICONE 80 MG TAB.CHEW (FP) PO PRN (21:44)
[2019-02-20] MEDS: ACETAMINOPHEN 325 MG TABLET (FP) PO PRN (21:45)
[2019-02-20] MEDS: SENNOSIDES 8.6MG TABLET (FP) PO SCH (21:47)
[2019-02-21] MEDS: MINERAL OIL/PET HY-PHL TOPICAL OINTMENT 454 GM JAR TP SCH (11:18)
[2019-02-21] MEDS: PANTOPRAZOLE 40 MG TABLET (FP) PO SCH (11:18)
[2019-02-21] MEDS: MULTIVITAMINS (DAILY MVI) TABLET (FP) PO SCH (11:18)
[2019-02-21] MEDS: DOCUSATE SODIUM 100 MG CAPSULE (FP) PO SCH ×2 (11:18→22:35)
[2019-02-21] MEDS: SULFAMETHOXAZOLE/TRIMETHOPRIM 800MG/160MG D.S. TABLET PO SCH ×2 (11:18→22:35)
--- NOTE | 2019-02-21 11:19 | PN ---
Progress Note, Physician History of Present Illness: AWAKE, ALERT IN BED NO COMPLAINTS TEMPS DOWN AFEBRILE WBC WNL BLOOD CULTURES NO GROWTH - Current Medication List Current Medications: Active Medications Acetaminophen (Tylenol -) 650 mg PO Q6H PRN PRN Reason: PAIN LEVEL 1-5 Last Admin: 02/20/19 21:45 Dose: 325 mg Docusate Sodium (Colace -) 100 mg PO BID [facility] Last Admin: 02/20/19 21:48 Dose: Not Given Emollient Ointment (Aquaphor -) 1 applic TP DAILY [facility] Last Admin: 02/20/19 11:52 Dose: 1 applic Lactulose (Cephulac (Oral Use)) 20 gm PO TID PRN PRN Reason: CONSTIPATION Magnesium Hydroxide (Milk Of Magnesia -) 30 ml PO DAILY PRN PRN Reason: CONSTIPATION Last Admin: 02/13/19 09:41 Dose: 30 ml Methyl Salicylate (Osmar-Moreno -) 1 applic TP Q6H PRN PRN Reason: BACK PAIN Multivitamins/Minerals/Vitamin C (Tab-A-Vit -) 1 tab PO DAILY [facility] Last Admin: 02/20/19 11:50 Dose: 1 tab Pantoprazole Sodium (Protonix -) 40 mg PO DAILY [facility] Last Admin: 02/20/19 11:49 Dose: 40 mg Senna (Senna -) 2 tab PO HS [facility] Last Admin: 02/20/19 21:47 Dose: Not Given Simethicone (Mylicon -) 80 mg PO Q4H PRN PRN Reason: GAS Last Admin: 02/20/19 21:44 Dose: 80 mg Trimethoprim/Sulfamethoxazole (Bactrim Ds -) 1 each PO BID [facility] Last Admin: 02/20/19 21:45 Dose: 1 each - Objective Vital Signs: Vital Signs Temperature 98.9 F 02/20/19 23:00 Pulse Rate 79 02/20/19 23:00 Respiratory Rate 20 02/20/19 23:00 Blood Pressure 112/66 02/20/19 23:00 O2 Sat by Pulse Oximetry (%) 95 02/20/19 09:00 Constitutional: Yes: Well Nourished Cardiovascular: Yes: Regular Rate and Rhythm, S1, S2 Respiratory: Yes: Diminished Gastrointestinal: Yes: Normal Bowel Sounds, Soft, Other (DISTENDED, TYMPANITIC) . No: Tenderness Edema: No Integumentary: Yes: Other (+ RESIDUAL ERYTHEMA L GROIN /LLQ) Labs: CBC, BMP 02/18/19 07:20 02/18/19 07:20 INR, PTT INR 1.07 (0.83-1.09) 02/09/19 00:05 Assessment/Plan FEVER IMPROVED CELLULITIS L GROIN/FLANK IMPROVED CHRONIC L PSOAS COLLECTION/ FISTULA PARAPLEGIA S/P L PCN NEUROGENIC BLADDER/ INDWELLING PINZON CONTINUE BACTRIM DS PO BID COLLECTION DRAINAGE PER /SURG/IR
--- NOTE | 2019-02-21 11:24 | PN ---
Progress Note, Physician Chief Complaint: patient seen and examined upset about not getting enema - Current Medication List Current Medications: Active Medications Acetaminophen (Tylenol -) 650 mg PO Q6H PRN PRN Reason: PAIN LEVEL 1-5 Last Admin: 02/20/19 21:45 Dose: 325 mg Docusate Sodium (Colace -) 100 mg PO BID [facility] Last Admin: 02/21/19 11:18 Dose: 100 mg Emollient Ointment (Aquaphor -) 1 applic TP DAILY [facility] Last Admin: 02/21/19 11:18 Dose: 1 applic Lactulose (Cephulac (Oral Use)) 20 gm PO TID PRN PRN Reason: CONSTIPATION Magnesium Hydroxide (Milk Of Magnesia -) 30 ml PO DAILY PRN PRN Reason: CONSTIPATION Last Admin: 02/13/19 09:41 Dose: 30 ml Methyl Salicylate (Osmar-Moreno -) 1 applic TP Q6H PRN PRN Reason: BACK PAIN Multivitamins/Minerals/Vitamin C (Tab-A-Vit -) 1 tab PO DAILY [facility] Last Admin: 02/21/19 11:18 Dose: 1 tab Pantoprazole Sodium (Protonix -) 40 mg PO DAILY [facility] Last Admin: 02/21/19 11:18 Dose: 40 mg Senna (Senna -) 2 tab PO HS [facility] Last Admin: 02/20/19 21:47 Dose: Not Given Simethicone (Mylicon -) 80 mg PO Q4H PRN PRN Reason: GAS Last Admin: 02/20/19 21:44 Dose: 80 mg Trimethoprim/Sulfamethoxazole (Bactrim Ds -) 1 each PO BID [facility] Last Admin: 02/21/19 11:18 Dose: 1 each - Objective Vital Signs: Vital Signs Temperature 98.9 F 02/20/19 23:00 Pulse Rate 79 02/20/19 23:00 Respiratory Rate 20 02/20/19 23:00 Blood Pressure 112/66 02/20/19 23:00 O2 Sat by Pulse Oximetry (%) 95 02/20/19 09:00 Cardiovascular: Yes: Regular Rate and Rhythm, Murmur, S1, S2 Respiratory: Yes: CTA Bilaterally Gastrointestinal: Yes: Distention Genitourinary: Yes: Hull Present Edema: No Neurological: Yes: Alert, Oriented, Pre-Existing Deficit Labs: CBC, BMP 02/18/19 07:20 12/06/19 07:20 INR, PTT INR 1.07 (0.83-1.09) 02/09/19 00:05 Problem List - Problems (1) Neurogenic bladder Assessment/Plan: hull catheter Microbiology 02/16/19 15:50 Urine - Urine Nephrostomy Tube Left Urine Culture - Preliminary Proteus Mirabilis Non Lactose Fermenting Gnb bactrim Code(s): N31.9 - NEUROMUSCULAR DYSFUNCTION OF BLADDER, UNSPECIFIED (2) Acquired functional megacolon Assessment/Plan: laxative tap water enema Code(s): K59.39 - OTHER MEGACOLON (3) Bilateral hydronephrosis Assessment/Plan: nephrostogram by IR Code(s): N13.30 - UNSPECIFIED HYDRONEPHROSIS (4) Abscess Assessment/Plan: drainage by IR- pending labs ordered for today Code(s): L02.91 - CUTANEOUS ABSCESS, UNSPECIFIED
[2019-02-21 17:37] LABS: BASO % 0.3 % (0-2.0); EOS % 1.1 % (0-4.5); HEMOGLOBIN 8.8 GM/dL (11.7-16.9); LYMPH % 9.9 % (8-40); MCH 25.8 pg (25.7-33.7); MCHC 31.6 g/dl (32.0-35.9); MEAN CELL VOLUME 81.8 fl (80-96); MEAN PLT VOLUME 7.3 fl (7.5-11.1); MONO % 6.9 % (3.8-10.2); NEUT % 81.8 % (42.8-82.8); PLATELET COUNT 333 K/MM3 (134-434); RBC 3.43 M/mm3 (4.00-5.60); RDW 18.6 % (11.9-15.9)
[2019-02-21 18:08] LABS: ALBUMIN 2.2 g/dl (3.4-5.0); BILIRUBIN,TOTAL 0.1 mg/dL (0.2-1); BLOOD UREA NITROGEN 24.6 mg/dL (7-18); CALCIUM 8.5 mg/dL (8.5-10.1); POTASSIUM 4.3 mmol/L (3.5-5.1); TOT PROT 6.4 g/dl (6.4-8.2)
[2019-02-21] MEDS: ACETAMINOPHEN 325 MG TABLET (FP) PO PRN (22:34)
[2019-02-21] MEDS: SIMETHICONE 80 MG TAB.CHEW (FP) PO PRN (22:34)
[2019-02-21] MEDS: SENNOSIDES 8.6MG TABLET (FP) PO SCH (22:35)
--- NOTE | 2019-02-22 08:37 | PN ---
Progress Note, Physician Chief Complaint: AWAKE ALERT FEELS BETTER S/P I AND D LEFT FLANK ABSCESS - Current Medication List Current Medications: Active Medications Acetaminophen (Tylenol -) 650 mg PO Q6H PRN PRN Reason: PAIN LEVEL 1-5 Last Admin: 02/21/19 22:34 Dose: 650 mg Docusate Sodium (Colace -) 100 mg PO BID [facility] Last Admin: 02/21/19 22:35 Dose: Not Given Emollient Ointment (Aquaphor -) 1 applic TP DAILY [facility] Last Admin: 02/21/19 11:18 Dose: 1 applic Lactulose (Cephulac (Oral Use)) 20 gm PO TID PRN PRN Reason: CONSTIPATION Magnesium Hydroxide (Milk Of Magnesia -) 30 ml PO DAILY PRN PRN Reason: CONSTIPATION Last Admin: 02/13/19 09:41 Dose: 30 ml Methyl Salicylate (Osmar-Moreno -) 1 applic TP Q6H PRN PRN Reason: BACK PAIN Multivitamins/Minerals/Vitamin C (Tab-A-Vit -) 1 tab PO DAILY [facility] Last Admin: 02/21/19 11:18 Dose: 1 tab Pantoprazole Sodium (Protonix -) 40 mg PO DAILY [facility] Last Admin: 02/21/19 11:18 Dose: 40 mg Senna (Senna -) 2 tab PO HS [facility] Last Admin: 02/21/19 22:35 Dose: Not Given Simethicone (Mylicon -) 80 mg PO Q4H PRN PRN Reason: GAS Last Admin: 02/21/19 22:34 Dose: 80 mg Trimethoprim/Sulfamethoxazole (Bactrim Ds -) 1 each PO BID [facility] Last Admin: 02/21/19 22:35 Dose: 1 each - Objective Vital Signs: Vital Signs Temperature 68 F L 02/21/19 23:00 Pulse Rate 68 02/21/19 23:00 Respiratory Rate 20 02/21/19 23:00 Blood Pressure 94/55 L 02/21/19 23:00 O2 Sat by Pulse Oximetry (%) 98 02/21/19 20:53 Constitutional: Yes: Mild Distress Cardiovascular: Yes: Regular Rate and Rhythm Respiratory: Yes: Regular Gastrointestinal: Yes: Distention, Other (DRAIN PURELENT DISCHARGE LEFT FLANO ABSCESS DRAINED) Genitourinary: Yes: Pelaez Present Edema: No Neurological: Yes: Pre-Existing Deficit Labs: CBC, BMP 02/21/19 17:00 02/21/19 17:00 INR, PTT INR 1.07 (0.83-1.09) 02/09/19 00:05 Problem List - Problems (1) Chronic indwelling Pelaez catheter Code(s): Z92.89 - PERSONAL HISTORY OF OTHER MEDICAL TREATMENT (2) Constipated Code(s): K59.00 - CONSTIPATION, UNSPECIFIED Qualifiers: Constipation type: unspecified constipation type Qualified Code(s): K59.00 - Constipation, unspecified (3) Neurogenic bladder Code(s): N31.9 - NEUROMUSCULAR DYSFUNCTION OF BLADDER, UNSPECIFIED (4) UTI (urinary tract infection) Code(s): N39.0 - URINARY TRACT INFECTION, SITE NOT SPECIFIED Qualifiers: Urinary tract infection type: site unspecified Hematuria presence: with hematuria Qualified Code(s): N39.0 - Urinary tract infection, site not specified; R31.9 - Hematuria, unspecified (5) Acquired functional megacolon Code(s): K59.39 - OTHER MEGACOLON (6) Anemia Code(s): D64.9 - ANEMIA, UNSPECIFIED Qualifiers: Anemia type: iron deficiency Other causes of anemia: due to other specified chronic disease (7) COPD (chronic obstructive pulmonary disease) Code(s): J44.9 - CHRONIC OBSTRUCTIVE PULMONARY DISEASE, UNSPECIFIED Qualifiers: COPD type: unspecified COPD Qualified Code(s): J44.9 - Chronic obstructive pulmonary disease, unspecified (8) Decubitus ulcer Code(s): L89.90 - PRESSURE ULCER OF UNSPECIFIED SITE, UNSPECIFIED STAGE Qualifiers: Laterality: unspecified laterality (9) Paraplegia following spinal cord injury Code(s): G82.20 - PARAPLEGIA, UNSPECIFIED Assessment/Plan S/P DRAINAGE LEFT FLANK ABSCESS DRAIN + OUTPUT LESS THAN 50CC ABX PER ID PAIN CONTROL STOOL SOFTENERS ID FOLLOW UP DC PLANNING
[2019-02-22] MEDS: PANTOPRAZOLE 40 MG TABLET (FP) PO SCH (12:02)
[2019-02-22] MEDS: SULFAMETHOXAZOLE/TRIMETHOPRIM 800MG/160MG D.S. TABLET PO SCH ×2 (12:02→21:22)
[2019-02-22] MEDS: MULTIVITAMINS (DAILY MVI) TABLET (FP) PO SCH (12:02)
[2019-02-22] MEDS: DOCUSATE SODIUM 100 MG CAPSULE (FP) PO SCH ×2 (12:03→21:22)
[2019-02-22] MEDS: MINERAL OIL/PET HY-PHL TOPICAL OINTMENT 454 GM JAR TP SCH (12:03)
[2019-02-22] MEDS: SIMETHICONE 80 MG TAB.CHEW (FP) PO PRN (21:22)
[2019-02-22] MEDS: ACETAMINOPHEN 325 MG TABLET (FP) PO PRN (21:25)
[2019-02-22] MEDS: SENNOSIDES 8.6MG TABLET (FP) PO SCH (21:28)
[2019-02-23 09:03] LABS: HEMATOCRIT 28.2 % (35.4-49); HEMOGLOBIN 9.2 GM/dL (11.7-16.9); MCH 26.5 pg (25.7-33.7); MCHC 32.5 g/dl (32.0-35.9); MEAN CELL VOLUME 81.6 fl (80-96); MEAN PLT VOLUME 7.2 fl (7.5-11.1); PLATELET COUNT 341 K/MM3 (134-434); RBC 3.46 M/mm3 (4.00-5.60); RDW 18.4 % (11.9-15.9); WHITE BLOOD COUNT 5.7 K/mm3 (4.0-10.0)
[2019-02-23 09:33] LABS: BLOOD UREA NITROGEN 26.9 mg/dL (7-18); CALCIUM 8.9 mg/dL (8.5-10.1); CREATININE 0.8 mg/dL (0.55-1.3); POTASSIUM 4.6 mmol/L (3.5-5.1)
--- NOTE | 2019-02-23 10:49 | PN ---
Progress Note, Physician Chief Complaint: AWAKE ALERT NO NEW EVENTS - Current Medication List Current Medications: Active Medications Acetaminophen (Tylenol -) 650 mg PO Q6H PRN PRN Reason: PAIN LEVEL 1-5 Last Admin: 02/22/19 21:25 Dose: 325 mg Docusate Sodium (Colace -) 100 mg PO BID [facility] Last Admin: 02/22/19 21:22 Dose: 100 mg Emollient Ointment (Aquaphor -) 1 applic TP DAILY [facility] Last Admin: 02/22/19 12:03 Dose: 1 applic Lactulose (Cephulac (Oral Use)) 20 gm PO TID PRN PRN Reason: CONSTIPATION Magnesium Hydroxide (Milk Of Magnesia -) 30 ml PO DAILY PRN PRN Reason: CONSTIPATION Last Admin: 02/13/19 09:41 Dose: 30 ml Methyl Salicylate (Osmar-Moreno -) 1 applic TP Q6H PRN PRN Reason: BACK PAIN Multivitamins/Minerals/Vitamin C (Tab-A-Vit -) 1 tab PO DAILY [facility] Last Admin: 02/22/19 12:02 Dose: 1 tab Pantoprazole Sodium (Protonix -) 40 mg PO DAILY [facility] Last Admin: 02/22/19 12:02 Dose: 40 mg Senna (Senna -) 2 tab PO HS [facility] Last Admin: 02/22/19 21:28 Dose: Not Given Simethicone (Mylicon -) 80 mg PO Q4H PRN PRN Reason: GAS Last Admin: 02/22/19 21:22 Dose: 80 mg Trimethoprim/Sulfamethoxazole (Bactrim Ds -) 1 each PO BID [facility] Last Admin: 02/22/19 21:22 Dose: 1 each - Objective Vital Signs: Vital Signs Temperature 98.0 F 02/22/19 23:00 Pulse Rate 70 02/22/19 23:00 Respiratory Rate 20 02/22/19 23:00 Blood Pressure 100/70 02/22/19 23:00 O2 Sat by Pulse Oximetry (%) 98 02/22/19 21:00 Constitutional: Yes: Mild Distress Cardiovascular: Yes: WNL Respiratory: Yes: Diminished Gastrointestinal: Yes: Distention Genitourinary: Yes: Pelaez Present Musculoskeletal: Yes: Muscle Weakness Integumentary: Yes: Pressure Ulcer (SACRAL) Neurological: Yes: Loss of Sensation, Pre-Existing Deficit Labs: CBC, BMP 02/23/19 07:40 02/23/19 07:40 INR, PTT INR 1.07 (0.83-1.09) 02/09/19 00:05 Problem List - Problems (1) Chronic indwelling Pelaez catheter Code(s): Z92.89 - PERSONAL HISTORY OF OTHER MEDICAL TREATMENT (2) Constipated Code(s): K59.00 - CONSTIPATION, UNSPECIFIED Qualifiers: Constipation type: unspecified constipation type Qualified Code(s): K59.00 - Constipation, unspecified (3) Neurogenic bladder Code(s): N31.9 - NEUROMUSCULAR DYSFUNCTION OF BLADDER, UNSPECIFIED (4) UTI (urinary tract infection) Code(s): N39.0 - URINARY TRACT INFECTION, SITE NOT SPECIFIED Qualifiers: Urinary tract infection type: site unspecified Hematuria presence: with hematuria Qualified Code(s): N39.0 - Urinary tract infection, site not specified; R31.9 - Hematuria, unspecified (5) Acquired functional megacolon Code(s): K59.39 - OTHER MEGACOLON (6) Anemia Code(s): D64.9 - ANEMIA, UNSPECIFIED Qualifiers: Anemia type: iron deficiency Other causes of anemia: due to other specified chronic disease (7) COPD (chronic obstructive pulmonary disease) Code(s): J44.9 - CHRONIC OBSTRUCTIVE PULMONARY DISEASE, UNSPECIFIED Qualifiers: COPD type: unspecified COPD Qualified Code(s): J44.9 - Chronic obstructive pulmonary disease, unspecified (8) Decubitus ulcer Code(s): L89.90 - PRESSURE ULCER OF UNSPECIFIED SITE, UNSPECIFIED STAGE Qualifiers: Laterality: unspecified laterality (9) Paraplegia following spinal cord injury Code(s): G82.20 - PARAPLEGIA, UNSPECIFIED Assessment/Plan DRAINING LEFT RETROPERITONEAL ABSCESS PO ABX CONTINUE PAIN CONTROL CT ABD/PELVIS IN MORNING TO F/U ABSCESS DRAINAGE DC PLANNING
[2019-02-23] MEDS: DOCUSATE SODIUM 100 MG CAPSULE (FP) PO SCH ×2 (11:18→23:26)
[2019-02-23] MEDS: MULTIVITAMINS (DAILY MVI) TABLET (FP) PO SCH (11:18)
[2019-02-23] MEDS: MINERAL OIL/PET HY-PHL TOPICAL OINTMENT 454 GM JAR TP SCH (11:18)
[2019-02-23] MEDS: PANTOPRAZOLE 40 MG TABLET (FP) PO SCH (11:18)
[2019-02-23] MEDS: SULFAMETHOXAZOLE/TRIMETHOPRIM 800MG/160MG D.S. TABLET PO SCH ×2 (11:18→22:55)
[2019-02-23] MEDS: SIMETHICONE 80 MG TAB.CHEW (FP) PO PRN (22:55)
[2019-02-23] MEDS: ACETAMINOPHEN 325 MG TABLET (FP) PO PRN (22:55)
[2019-02-23] MEDS: SENNOSIDES 8.6MG TABLET (FP) PO SCH (23:26)
[2019-02-24] MEDS: PANTOPRAZOLE 40 MG TABLET (FP) PO SCH (09:33)
[2019-02-24] MEDS: MINERAL OIL/PET HY-PHL TOPICAL OINTMENT 454 GM JAR TP SCH (09:33)
[2019-02-24] MEDS: SULFAMETHOXAZOLE/TRIMETHOPRIM 800MG/160MG D.S. TABLET PO SCH ×2 (09:34→22:37)
[2019-02-24] MEDS: MULTIVITAMINS (DAILY MVI) TABLET (FP) PO SCH (09:34)
[2019-02-24] MEDS: DOCUSATE SODIUM 100 MG CAPSULE (FP) PO SCH ×2 (09:37→22:37)
--- NOTE | 2019-02-24 10:01 | PN ---
Progress Note, Physician Chief Complaint: IN BED, SAYS HE HAD A BAD NIGHT DID NOT SLEEP WELL DENIES FEVER OF CHILLS - Current Medication List Current Medications: Active Medications Acetaminophen (Tylenol -) 650 mg PO Q6H PRN PRN Reason: PAIN LEVEL 1-5 Last Admin: 02/23/19 22:55 Dose: 650 mg Docusate Sodium (Colace -) 100 mg PO BID [facility] Last Admin: 02/24/19 09:37 Dose: Not Given Emollient Ointment (Aquaphor -) 1 applic TP DAILY [facility] Last Admin: 02/24/19 09:33 Dose: 1 applic Lactulose (Cephulac (Oral Use)) 20 gm PO TID PRN PRN Reason: CONSTIPATION Magnesium Hydroxide (Milk Of Magnesia -) 30 ml PO DAILY PRN PRN Reason: CONSTIPATION Last Admin: 02/13/19 09:41 Dose: 30 ml Methyl Salicylate (Osmar-Moreno -) 1 applic TP Q6H PRN PRN Reason: BACK PAIN Multivitamins/Minerals/Vitamin C (Tab-A-Vit -) 1 tab PO DAILY [facility] Last Admin: 02/24/19 09:34 Dose: 1 tab Pantoprazole Sodium (Protonix -) 40 mg PO DAILY [facility] Last Admin: 02/24/19 09:33 Dose: 40 mg Senna (Senna -) 2 tab PO HS [facility] Last Admin: 02/23/19 23:26 Dose: Not Given Simethicone (Mylicon -) 80 mg PO Q4H PRN PRN Reason: GAS Last Admin: 02/23/19 22:55 Dose: 80 mg Trimethoprim/Sulfamethoxazole (Bactrim Ds -) 1 each PO BID [facility] Last Admin: 02/24/19 09:34 Dose: 1 each - Objective Vital Signs: Vital Signs Temperature 97.8 F 02/23/19 17:05 Pulse Rate 83 02/23/19 21:00 Respiratory Rate 20 02/23/19 21:00 Blood Pressure 102/64 02/23/19 21:00 O2 Sat by Pulse Oximetry (%) 98 02/23/19 21:00 Constitutional: Yes: Mild Distress Cardiovascular: Yes: Regular Rate and Rhythm Respiratory: Yes: WNL Gastrointestinal: Yes: Distention Genitourinary: Yes: Pelaez Present Integumentary: Yes: Pressure Ulcer Wound/Incision: Yes: Dressing Dry and Intact, Draining (ABDOMINAL/LEFT FLANK PERITONEAL DRAIN) Neurological: Yes: Pre-Existing Deficit Labs: CBC, BMP 02/23/19 07:40 02/23/19 07:40 INR, PTT INR 1.07 (0.83-1.09) 02/09/19 00:05 Problem List - Problems (1) Chronic indwelling Pelaez catheter Code(s): Z92.89 - PERSONAL HISTORY OF OTHER MEDICAL TREATMENT (2) Constipated Code(s): K59.00 - CONSTIPATION, UNSPECIFIED Qualifiers: Constipation type: unspecified constipation type Qualified Code(s): K59.00 - Constipation, unspecified (3) Neurogenic bladder Code(s): N31.9 - NEUROMUSCULAR DYSFUNCTION OF BLADDER, UNSPECIFIED (4) UTI (urinary tract infection) Code(s): N39.0 - URINARY TRACT INFECTION, SITE NOT SPECIFIED Qualifiers: Urinary tract infection type: site unspecified Hematuria presence: with hematuria Qualified Code(s): N39.0 - Urinary tract infection, site not specified; R31.9 - Hematuria, unspecified (5) Acquired functional megacolon Code(s): K59.39 - OTHER MEGACOLON (6) Anemia Code(s): D64.9 - ANEMIA, UNSPECIFIED Qualifiers: Anemia type: iron deficiency Other causes of anemia: due to other specified chronic disease (7) COPD (chronic obstructive pulmonary disease) Code(s): J44.9 - CHRONIC OBSTRUCTIVE PULMONARY DISEASE, UNSPECIFIED Qualifiers: COPD type: unspecified COPD Qualified Code(s): J44.9 - Chronic obstructive pulmonary disease, unspecified (8) Decubitus ulcer Code(s): L89.90 - PRESSURE ULCER OF UNSPECIFIED SITE, UNSPECIFIED STAGE Qualifiers: Laterality: unspecified laterality (9) Paraplegia following spinal cord injury Code(s): G82.20 - PARAPLEGIA, UNSPECIFIED Assessment/Plan DRAINING LEFT RETROPERITONEAL ABSCESS F/U CT SCAN MONITORING ABSCESS DRAINAGE PO ABX CONTINUE PAIN CONTROL DC PLANNING AFTER DRAINS REMOVED
[2019-02-24] MEDS: SENNOSIDES 8.6MG TABLET (FP) PO SCH (22:37)
[2019-02-24] MEDS: SIMETHICONE 80 MG TAB.CHEW (FP) PO PRN (22:37)
[2019-02-25] MEDS ORDERED: PT OWN MED DRAWER 7, Y5N ONE (10:17)
[2019-02-25] MEDS: DOCUSATE SODIUM 100 MG CAPSULE (FP) PO SCH ×3 (10:19→23:00)
[2019-02-25] MEDS: SULFAMETHOXAZOLE/TRIMETHOPRIM 800MG/160MG D.S. TABLET PO SCH ×2 (10:19→23:00)
[2019-02-25] MEDS: PANTOPRAZOLE 40 MG TABLET (FP) PO SCH (10:19)
[2019-02-25] MEDS: MULTIVITAMINS (DAILY MVI) TABLET (FP) PO SCH (10:20)
[2019-02-25] MEDS ORDERED: MINERAL OIL ENEMA 133 ML ENEMA PR ONE (10:43)
[2019-02-25] MEDS: POVIDONE-IODINE 10% SOLN 118 ML BOTTLE TP SCH (11:14)
[2019-02-25] MEDS: MINERAL OIL/PET HY-PHL TOPICAL OINTMENT 454 GM JAR TP SCH ×2 (11:14→11:34)
--- NOTE | 2019-02-25 11:22 | PN ---
Progress Note, Physician Chief Complaint: patient seen and examined s/p nephrosotomy tube change and abscess drainage repeat ct done and result pending - Current Medication List Current Medications: Active Medications Acetaminophen (Tylenol -) 650 mg PO Q6H PRN PRN Reason: PAIN LEVEL 1-5 Last Admin: 02/23/19 22:55 Dose: 650 mg Docusate Sodium (Colace -) 100 mg PO BID [facility] Last Admin: 02/25/19 10:23 Dose: Not Given Emollient Ointment (Aquaphor -) 1 applic TP DAILY [facility] Last Admin: 02/25/19 11:14 Dose: 1 applic Lactulose (Cephulac (Oral Use)) 20 gm PO TID PRN PRN Reason: CONSTIPATION Magnesium Hydroxide (Milk Of Magnesia -) 30 ml PO DAILY PRN PRN Reason: CONSTIPATION Last Admin: 02/13/19 09:41 Dose: 30 ml Methyl Salicylate (Osmar-Moreno -) 1 applic TP Q6H PRN PRN Reason: BACK PAIN Multivitamins/Minerals/Vitamin C (Tab-A-Vit -) 1 tab PO DAILY [facility] Last Admin: 02/25/19 10:20 Dose: 1 tab Pantoprazole Sodium (Protonix -) 40 mg PO DAILY [facility] Last Admin: 02/25/19 10:19 Dose: 40 mg Povidone Iodine (Betadine 10% Solution -) 1 applic TP DAILY [facility] Last Admin: 02/25/19 11:14 Dose: 1 applic Senna (Senna -) 2 tab PO HS [facility] Last Admin: 02/24/19 22:37 Dose: Not Given Simethicone (Mylicon -) 80 mg PO Q4H PRN PRN Reason: GAS Last Admin: 02/24/19 22:37 Dose: 80 mg Trimethoprim/Sulfamethoxazole (Bactrim Ds -) 1 each PO BID [facility] Last Admin: 02/25/19 10:19 Dose: 1 each - Objective Vital Signs: Vital Signs Temperature 97.2 F L 02/24/19 17:02 Pulse Rate 78 02/24/19 21:00 Respiratory Rate 20 02/24/19 21:00 Blood Pressure 119/65 02/24/19 21:00 O2 Sat by Pulse Oximetry (%) 98 02/24/19 09:00 Constitutional: Yes: Calm Cardiovascular: Yes: Regular Rate and Rhythm, S1, S2 Respiratory: Yes: CTA Bilaterally Gastrointestinal: Yes: Normal Bowel Sounds, Soft, Distention (less distended) Genitourinary: Yes: Hull Present, Other (Nephrosotomy tube YA drain) Edema: No Labs: CBC, BMP 02/23/19 07:40 02/23/19 07:40 INR, PTT INR 1.07 (0.83-1.09) 02/09/19 00:05 Problem List - Problems (1) Abscess Assessment/Plan: drainage by IR ct scan pending Code(s): L02.91 - CUTANEOUS ABSCESS, UNSPECIFIED (2) Neurogenic bladder Assessment/Plan: hull catheter Microbiology 02/16/19 15:50 Urine - Urine Nephrostomy Tube Left Urine Culture - Preliminary Proteus Mirabilis Non Lactose Fermenting Gnb bactrim Code(s): N31.9 - NEUROMUSCULAR DYSFUNCTION OF BLADDER, UNSPECIFIED (3) Acquired functional megacolon Assessment/Plan: laxative tap water enema Code(s): K59.39 - OTHER MEGACOLON (4) Bilateral hydronephrosis Assessment/Plan: nephrostogram by IR and nephrosotomy tube changed Code(s): N13.30 - UNSPECIFIED HYDRONEPHROSIS
[2019-02-25] MEDS ORDERED: traMADol HCL 50 MG TABLET PO PRN (11:27)
[2019-02-25] MEDS: SENNOSIDES 8.6MG TABLET (FP) PO SCH (23:00)
[2019-02-25] MEDS: ACETAMINOPHEN 325 MG TABLET (FP) PO PRN (23:18)
[2019-02-25] MEDS: SIMETHICONE 80 MG TAB.CHEW (FP) PO PRN (23:19)
[2019-02-26] MEDS ORDERED: PT OWN MED DRAWER 7, Y5N ONE (10:23)
[2019-02-26] MEDS: SULFAMETHOXAZOLE/TRIMETHOPRIM 800MG/160MG D.S. TABLET PO SCH ×2 (10:36→23:12)
[2019-02-26] MEDS: MULTIVITAMINS (DAILY MVI) TABLET (FP) PO SCH (10:37)
[2019-02-26] MEDS: DOCUSATE SODIUM 100 MG CAPSULE (FP) PO SCH ×2 (10:37→23:12)
[2019-02-26] MEDS: PANTOPRAZOLE 40 MG TABLET (FP) PO SCH (10:37)
[2019-02-26] MEDS: POVIDONE-IODINE 10% SOLN 118 ML BOTTLE TP SCH (11:00)
[2019-02-26] MEDS: MINERAL OIL/PET HY-PHL TOPICAL OINTMENT 454 GM JAR TP SCH (12:53)
--- NOTE | 2019-02-26 13:23 | PN ---
Progress Note, Physician - Current Medication List Current Medications: Active Medications Acetaminophen (Tylenol -) 650 mg PO Q6H PRN PRN Reason: PAIN LEVEL 1-5 Last Admin: 02/25/19 23:18 Dose: 650 mg Docusate Sodium (Colace -) 100 mg PO BID [facility] Last Admin: 02/26/19 10:37 Dose: Not Given Emollient Ointment (Aquaphor -) 1 applic TP DAILY [facility] Last Admin: 02/26/19 12:53 Dose: Not Given Lactulose (Cephulac (Oral Use)) 20 gm PO TID PRN PRN Reason: CONSTIPATION Magnesium Hydroxide (Milk Of Magnesia -) 30 ml PO DAILY PRN PRN Reason: CONSTIPATION Last Admin: 02/13/19 09:41 Dose: 30 ml Methyl Salicylate (Osmar-Moreno -) 1 applic TP Q6H PRN PRN Reason: BACK PAIN Multivitamins/Minerals/Vitamin C (Tab-A-Vit -) 1 tab PO DAILY [facility] Last Admin: 02/26/19 10:37 Dose: 1 tab Pantoprazole Sodium (Protonix -) 40 mg PO DAILY [facility] Last Admin: 02/26/19 10:37 Dose: 40 mg Povidone Iodine (Betadine 10% Solution -) 1 applic TP DAILY [facility] Last Admin: 02/26/19 11:00 Dose: 1 applic Senna (Senna -) 2 tab PO HS [facility] Last Admin: 02/25/19 23:00 Dose: Not Given Simethicone (Mylicon -) 80 mg PO Q4H PRN PRN Reason: GAS Last Admin: 02/25/19 23:19 Dose: 80 mg Tramadol HCl (Ultram -) 25 mg PO Q8H PRN PRN Reason: PAIN LEVEL 6 - 10 Trimethoprim/Sulfamethoxazole (Bactrim Ds -) 1 each PO BID [facility] Last Admin: 02/26/19 10:36 Dose: 1 each - Objective Vital Signs: Vital Signs Temperature 97.8 F 02/26/19 10:35 Pulse Rate 79 02/26/19 10:35 Respiratory Rate 20 02/26/19 10:35 Blood Pressure 100/80 02/26/19 10:35 O2 Sat by Pulse Oximetry (%) 99 02/25/19 19:59 Cardiovascular: Yes: Regular Rate and Rhythm Respiratory: Yes: Regular, CTA Bilaterally Gastrointestinal: Yes: Normal Bowel Sounds, Soft, Distention Wound/Incision: Yes: Other (erytmema-induration==drain) Labs: CBC, BMP 02/23/19 07:40 02/23/19 07:40 INR, PTT INR 1.07 (0.83-1.09) 02/09/19 00:05 Assessment/Plan - Problems (1) Abscess Assessment/Plan: drainage by IR ct scan pending Code(s): L02.91 - CUTANEOUS ABSCESS, UNSPECIFIED (2) Neurogenic bladder Assessment/Plan: hull catheter Microbiology 02/16/19 15:50 Urine - Urine Nephrostomy Tube Left Urine Culture - Preliminary Proteus Mirabilis Non Lactose Fermenting Gnb bactrim Code(s): N31.9 - NEUROMUSCULAR DYSFUNCTION OF BLADDER, UNSPECIFIED (3) Acquired functional megacolon Assessment/Plan: laxative tap water enema Code(s): K59.39 - OTHER MEGACOLON (4) Bilateral hydronephrosis Assessment/Plan: nephrostogram by IR and nephrosotomy tube changed Code(s): N13.30 - UNSPECIFIED HYDRONEPHROSIS
[2019-02-26] MEDS: SENNOSIDES 8.6MG TABLET (FP) PO SCH (23:12)
[2019-02-26] MEDS: ACETAMINOPHEN 325 MG TABLET (FP) PO PRN (23:12)
[2019-02-27] MEDS ORDERED: PT OWN MED DRAWER 7, Y5N ONE (10:04)
[2019-02-27] MEDS: DOCUSATE SODIUM 100 MG CAPSULE (FP) PO SCH ×3 (10:17→22:25)
[2019-02-27] MEDS: PANTOPRAZOLE 40 MG TABLET (FP) PO SCH (10:17)
[2019-02-27] MEDS: SULFAMETHOXAZOLE/TRIMETHOPRIM 800MG/160MG D.S. TABLET PO SCH ×2 (10:17→22:24)
[2019-02-27] MEDS: MULTIVITAMINS (DAILY MVI) TABLET (FP) PO SCH (10:17)
--- NOTE | 2019-02-27 11:23 | PN ---
Progress Note, Physician - Current Medication List Current Medications: Active Medications Acetaminophen (Tylenol -) 650 mg PO Q6H PRN PRN Reason: PAIN LEVEL 1-5 Last Admin: 02/26/19 23:12 Dose: 650 mg Docusate Sodium (Colace -) 100 mg PO BID [facility] Last Admin: 02/27/19 10:20 Dose: Not Given Emollient Ointment (Aquaphor -) 1 applic TP DAILY [facility] Last Admin: 02/26/19 12:53 Dose: Not Given Lactulose (Cephulac (Oral Use)) 20 gm PO TID PRN PRN Reason: CONSTIPATION Magnesium Hydroxide (Milk Of Magnesia -) 30 ml PO DAILY PRN PRN Reason: CONSTIPATION Last Admin: 02/13/19 09:41 Dose: 30 ml Methyl Salicylate (Osmar-Moreno -) 1 applic TP Q6H PRN PRN Reason: BACK PAIN Multivitamins/Minerals/Vitamin C (Tab-A-Vit -) 1 tab PO DAILY [facility] Last Admin: 02/27/19 10:17 Dose: 1 tab Pantoprazole Sodium (Protonix -) 40 mg PO DAILY [facility] Last Admin: 02/27/19 10:17 Dose: 40 mg Povidone Iodine (Betadine 10% Solution -) 1 applic TP DAILY [facility] Last Admin: 02/26/19 11:00 Dose: 1 applic Senna (Senna -) 2 tab PO HS [facility] Last Admin: 02/26/19 23:12 Dose: Not Given Simethicone (Mylicon -) 80 mg PO Q4H PRN PRN Reason: GAS Last Admin: 02/25/19 23:19 Dose: 80 mg Tramadol HCl (Ultram -) 25 mg PO Q8H PRN PRN Reason: PAIN LEVEL 6 - 10 Trimethoprim/Sulfamethoxazole (Bactrim Ds -) 1 each PO BID [facility] Last Admin: 02/27/19 10:17 Dose: 1 each - Objective Vital Signs: Vital Signs Temperature 98.8 F 02/27/19 10:15 Pulse Rate 74 02/27/19 10:15 Respiratory Rate 20 02/27/19 10:15 Blood Pressure 110/70 02/27/19 10:15 O2 Sat by Pulse Oximetry (%) 99 02/26/19 20:58 Cardiovascular: Yes: S1, S2 Respiratory: Yes: Regular, CTA Bilaterally Gastrointestinal: Yes: Normal Bowel Sounds, Soft Wound/Incision: Yes: Reddened, Other (DRAIN IN PLACE) Labs: CBC, BMP 02/23/19 07:40 02/23/19 07:40 INR, PTT INR 1.07 (0.83-1.09) 02/09/19 00:05 Assessment/Plan - Problems (1) Abscess Assessment/Plan: drainage by IR ct scan pending Code(s): L02.91 - CUTANEOUS ABSCESS, UNSPECIFIED (2) Neurogenic bladder Assessment/Plan: hull catheter Microbiology 02/16/19 15:50 Urine - Urine Nephrostomy Tube Left Urine Culture - Preliminary Proteus Mirabilis Non Lactose Fermenting Gnb bactrim Code(s): N31.9 - NEUROMUSCULAR DYSFUNCTION OF BLADDER, UNSPECIFIED (3) Acquired functional megacolon Assessment/Plan: laxative tap water enema Code(s): K59.39 - OTHER MEGACOLON (4) Bilateral hydronephrosis Assessment/Plan: nephrostogram by IR and nephrosotomy tube changed Code(s): N13.30 - UNSPECIFIED HYDRONEPHROSIS
[2019-02-27] MEDS: MINERAL OIL/PET HY-PHL TOPICAL OINTMENT 454 GM JAR TP SCH (11:50)
[2019-02-27] MEDS: POVIDONE-IODINE 10% SOLN 118 ML BOTTLE TP SCH (12:44)
[2019-02-27] MEDS: SIMETHICONE 80 MG TAB.CHEW (FP) PO PRN (22:24)
[2019-02-27] MEDS: SENNOSIDES 8.6MG TABLET (FP) PO SCH (22:25)
--- NOTE | 2019-02-28 08:13 | PN ---
Progress Note, Physician Chief Complaint: awake alert c/o poor appetite awaiting ct scan abdomen results - Current Medication List Current Medications: Active Medications Acetaminophen (Tylenol -) 650 mg PO Q6H PRN PRN Reason: PAIN LEVEL 1-5 Last Admin: 02/26/19 23:12 Dose: 650 mg Docusate Sodium (Colace -) 100 mg PO BID [facility] Last Admin: 02/27/19 22:25 Dose: Not Given Emollient Ointment (Aquaphor -) 1 applic TP DAILY [facility] Last Admin: 02/27/19 11:50 Dose: Not Given Lactulose (Cephulac (Oral Use)) 20 gm PO TID PRN PRN Reason: CONSTIPATION Magnesium Hydroxide (Milk Of Magnesia -) 30 ml PO DAILY PRN PRN Reason: CONSTIPATION Last Admin: 02/13/19 09:41 Dose: 30 ml Methyl Salicylate (Osmar-Moreno -) 1 applic TP Q6H PRN PRN Reason: BACK PAIN Multivitamins/Minerals/Vitamin C (Tab-A-Vit -) 1 tab PO DAILY [facility] Last Admin: 02/27/19 10:17 Dose: 1 tab Pantoprazole Sodium (Protonix -) 40 mg PO DAILY [facility] Last Admin: 02/27/19 10:17 Dose: 40 mg Povidone Iodine (Betadine 10% Solution -) 1 applic TP DAILY [facility] Last Admin: 02/27/19 12:44 Dose: 1 applic Senna (Senna -) 2 tab PO HS [facility] Last Admin: 02/27/19 22:25 Dose: Not Given Simethicone (Mylicon -) 80 mg PO Q4H PRN PRN Reason: GAS Last Admin: 02/27/19 22:24 Dose: 80 mg Tramadol HCl (Ultram -) 25 mg PO Q8H PRN PRN Reason: PAIN LEVEL 6 - 10 Trimethoprim/Sulfamethoxazole (Bactrim Ds -) 1 each PO BID [facility] Last Admin: 02/27/19 22:24 Dose: 1 each - Objective Vital Signs: Vital Signs Temperature 97.9 F 02/27/19 22:00 Pulse Rate 71 02/27/19 22:00 Respiratory Rate 20 02/27/19 22:00 Blood Pressure 100/67 02/27/19 22:00 O2 Sat by Pulse Oximetry (%) 99 02/27/19 21:00 Constitutional: Yes: Mild Distress Cardiovascular: Yes: Regular Rate and Rhythm Respiratory: Yes: Diminished Gastrointestinal: Yes: Distention (drain to llq abdomen shows decrease induration and transudent discharge in drainage bag) Genitourinary: Yes: Pelaez Present Edema: No Integumentary: Yes: Pressure Ulcer Wound/Incision: Yes: Dressing Dry and Intact Labs: CBC, BMP 02/23/19 07:40 02/23/19 07:40 INR, PTT INR 1.07 (0.83-1.09) 02/09/19 00:05 Problem List - Problems (1) Chronic indwelling Pelaez catheter Code(s): Z92.89 - PERSONAL HISTORY OF OTHER MEDICAL TREATMENT (2) Constipated Code(s): K59.00 - CONSTIPATION, UNSPECIFIED Qualifiers: Constipation type: unspecified constipation type Qualified Code(s): K59.00 - Constipation, unspecified (3) Neurogenic bladder Code(s): N31.9 - NEUROMUSCULAR DYSFUNCTION OF BLADDER, UNSPECIFIED (4) UTI (urinary tract infection) Code(s): N39.0 - URINARY TRACT INFECTION, SITE NOT SPECIFIED Qualifiers: Urinary tract infection type: site unspecified Hematuria presence: with hematuria Qualified Code(s): N39.0 - Urinary tract infection, site not specified; R31.9 - Hematuria, unspecified (5) Acquired functional megacolon Code(s): K59.39 - OTHER MEGACOLON (6) Anemia Code(s): D64.9 - ANEMIA, UNSPECIFIED Qualifiers: Anemia type: iron deficiency Other causes of anemia: due to other specified chronic disease (7) COPD (chronic obstructive pulmonary disease) Code(s): J44.9 - CHRONIC OBSTRUCTIVE PULMONARY DISEASE, UNSPECIFIED Qualifiers: COPD type: unspecified COPD Qualified Code(s): J44.9 - Chronic obstructive pulmonary disease, unspecified (8) Decubitus ulcer Code(s): L89.90 - PRESSURE ULCER OF UNSPECIFIED SITE, UNSPECIFIED STAGE Qualifiers: Laterality: unspecified laterality (9) Paraplegia following spinal cord injury Code(s): G82.20 - PARAPLEGIA, UNSPECIFIED Assessment/Plan DRAINING LEFT RETROPERITONEAL ABSCESS AWAITING CT SCAN ABD/PELVIS RESULTS PAIN MEDICINE CONTINUED PO ABX ID AND INTERVENTIONAL RADIOLOGY F/U NEEDED. DVT PROPHYLAXIS
[2019-02-28 08:54] LABS: BASO % 0.7 % (0-2.0); EOS % 2.6 % (0-4.5); HEMATOCRIT 30.4 % (35.4-49); HEMOGLOBIN 9.6 GM/dL (11.7-16.9); LYMPH % 23.7 % (8-40); MCH 25.9 pg (25.7-33.7); MCHC 31.7 g/dl (32.0-35.9); MEAN CELL VOLUME 81.6 fl (80-96); MEAN PLT VOLUME 7.5 fl (7.5-11.1); MONO % 7.8 % (3.8-10.2); NEUT % 65.2 % (42.8-82.8); PLATELET COUNT 289 K/MM3 (134-434); RBC 3.73 M/mm3 (4.00-5.60); WHITE BLOOD COUNT 7.1 K/mm3 (4.0-10.0)
[2019-02-28 09:32] LABS: ALBUMIN 2.8 g/dl (3.4-5.0); BILIRUBIN,TOTAL 0.2 mg/dL (0.2-1); BLOOD UREA NITROGEN 33.5 mg/dL (7-18); POTASSIUM 4.6 mmol/L (3.5-5.1); TOT PROT 7.7 g/dl (6.4-8.2)
[2019-02-28] MEDS: PANTOPRAZOLE 40 MG TABLET (FP) PO SCH (10:52)
[2019-02-28] MEDS: MULTIVITAMINS (DAILY MVI) TABLET (FP) PO SCH (10:53)
[2019-02-28] MEDS: SULFAMETHOXAZOLE/TRIMETHOPRIM 800MG/160MG D.S. TABLET PO SCH ×2 (10:53→21:33)
[2019-02-28] MEDS: POVIDONE-IODINE 10% SOLN 118 ML BOTTLE TP SCH (10:53)
[2019-02-28] MEDS: DOCUSATE SODIUM 100 MG CAPSULE (FP) PO SCH ×2 (10:53→21:34)
[2019-02-28] MEDS: MINERAL OIL/PET HY-PHL TOPICAL OINTMENT 454 GM JAR TP SCH (10:54)
[2019-02-28] MEDS: SENNOSIDES 8.6MG TABLET (FP) PO SCH (21:34)
[2019-02-28] MEDS: ACETAMINOPHEN 325 MG TABLET (FP) PO PRN (21:34)
[2019-02-28] MEDS: SIMETHICONE 80 MG TAB.CHEW (FP) PO PRN (21:34)
--- NOTE | 2019-03-01 08:25 | PN ---
Progress Note, Physician Chief Complaint: awake alert no fever or chills - Current Medication List Current Medications: Active Medications Acetaminophen (Tylenol -) 650 mg PO Q6H PRN PRN Reason: PAIN LEVEL 1-5 Last Admin: 02/28/19 21:34 Dose: 325 mg Docusate Sodium (Colace -) 100 mg PO BID [facility] Last Admin: 02/28/19 21:34 Dose: Not Given Emollient Ointment (Aquaphor -) 1 applic TP DAILY [facility] Last Admin: 02/28/19 10:54 Dose: Not Given Lactulose (Cephulac (Oral Use)) 20 gm PO TID PRN PRN Reason: CONSTIPATION Magnesium Hydroxide (Milk Of Magnesia -) 30 ml PO DAILY PRN PRN Reason: CONSTIPATION Last Admin: 02/13/19 09:41 Dose: 30 ml Methyl Salicylate (Osmar-Moreno -) 1 applic TP Q6H PRN PRN Reason: BACK PAIN Multivitamins/Minerals/Vitamin C (Tab-A-Vit -) 1 tab PO DAILY [facility] Last Admin: 02/28/19 10:53 Dose: 1 tab Pantoprazole Sodium (Protonix -) 40 mg PO DAILY [facility] Last Admin: 02/28/19 10:52 Dose: 40 mg Povidone Iodine (Betadine 10% Solution -) 1 applic TP DAILY [facility] Last Admin: 02/28/19 10:53 Dose: 1 applic Senna (Senna -) 2 tab PO HS [facility] Last Admin: 02/28/19 21:34 Dose: Not Given Simethicone (Mylicon -) 80 mg PO Q4H PRN PRN Reason: GAS Last Admin: 02/28/19 21:34 Dose: 80 mg Trimethoprim/Sulfamethoxazole (Bactrim Ds -) 1 each PO BID [facility] Last Admin: 02/28/19 21:33 Dose: 1 each - Objective Vital Signs: Vital Signs Temperature 97.8 F 02/28/19 22:00 Pulse Rate 68 02/28/19 22:00 Respiratory Rate 20 02/28/19 22:00 Blood Pressure 108/66 02/28/19 22:00 O2 Sat by Pulse Oximetry (%) 100 02/28/19 21:00 Constitutional: Yes: No Distress Cardiovascular: Yes: Regular Rate and Rhythm Respiratory: Yes: Regular Gastrointestinal: Yes: Distention, Other (DRAIN LLQ TRANSUDATE MINIMAL) Genitourinary: Yes: Pelaez Present Edema: No Labs: CBC, BMP 02/28/19 07:20 02/28/19 07:20 INR, PTT INR 1.07 (0.83-1.09) 02/09/19 00:05 Problem List - Problems (1) Chronic indwelling Pelaez catheter Code(s): Z92.89 - PERSONAL HISTORY OF OTHER MEDICAL TREATMENT (2) Constipated Code(s): K59.00 - CONSTIPATION, UNSPECIFIED Qualifiers: Constipation type: unspecified constipation type Qualified Code(s): K59.00 - Constipation, unspecified (3) Neurogenic bladder Code(s): N31.9 - NEUROMUSCULAR DYSFUNCTION OF BLADDER, UNSPECIFIED (4) UTI (urinary tract infection) Code(s): N39.0 - URINARY TRACT INFECTION, SITE NOT SPECIFIED Qualifiers: Urinary tract infection type: site unspecified Hematuria presence: with hematuria Qualified Code(s): N39.0 - Urinary tract infection, site not specified; R31.9 - Hematuria, unspecified (5) Acquired functional megacolon Code(s): K59.39 - OTHER MEGACOLON (6) Anemia Code(s): D64.9 - ANEMIA, UNSPECIFIED Qualifiers: Anemia type: iron deficiency Other causes of anemia: due to other specified chronic disease (7) COPD (chronic obstructive pulmonary disease) Code(s): J44.9 - CHRONIC OBSTRUCTIVE PULMONARY DISEASE, UNSPECIFIED Qualifiers: COPD type: unspecified COPD Qualified Code(s): J44.9 - Chronic obstructive pulmonary disease, unspecified (8) Decubitus ulcer Code(s): L89.90 - PRESSURE ULCER OF UNSPECIFIED SITE, UNSPECIFIED STAGE Qualifiers: Laterality: unspecified laterality (9) Paraplegia following spinal cord injury Code(s): G82.20 - PARAPLEGIA, UNSPECIFIED Assessment/Plan I REVIEWED CT SCAN ABD/PELVIS WITH DR JAY A DECREASE IN THE COLLECTION OF THE PSOAS MUSCLE FISTULA. RECOMMENDATION BY DR HAYDEN FROM INTERVENTIONAL RADIOLOGY IS TO KEEP THE DRAIN IN THE PSOAS FISTULA AND CHANGE IT EVERY 90 DAYS. PATIENT WANTS THE DRAIN REMOVED AND DR HAYDEN REPORTS THAT IF THE DRAIN IS REMOVED THE COLLECTION WILL RETURN TO THE LLQ ABDOMEN/PSOAS AND IT WILL NEED CHRONIC DRAINAGE. PATIENT WILL HAVE DRAINS REMOVED BUT MUST SIGN AGAINST MEDICAL ADVISE. I HAVE EXPLAINED THE RISK TO THE PATIENT AND HE WANTS THE DRAINS REMOVED. PATIENT HAS CAPACITY TO MAKE DECISIONS AND I WILL ORDER DRAIN REMOVAL TOMORROW. NEPHROSTOMY TUBE ALSO HE WANTS REMOVED. I HAVE DISCUSSED THIS PLAN WITH HIS MOM AND ADVISED HE DOES NOT HAVE ANY OF THE DRAINS REMOVED. CONTINUE PO ABX DC PLANNING
[2019-03-01] MEDS ORDERED: PT OWN MED DRAWER 7, Y5N ONE (09:50)
[2019-03-01] MEDS: PANTOPRAZOLE 40 MG TABLET (FP) PO SCH (10:02)
[2019-03-01] MEDS: MULTIVITAMINS (DAILY MVI) TABLET (FP) PO SCH (10:02)
[2019-03-01] MEDS: SULFAMETHOXAZOLE/TRIMETHOPRIM 800MG/160MG D.S. TABLET PO SCH ×2 (10:02→22:44)
[2019-03-01] MEDS: MINERAL OIL/PET HY-PHL TOPICAL OINTMENT 454 GM JAR TP SCH (10:03)
[2019-03-01] MEDS: DOCUSATE SODIUM 100 MG CAPSULE (FP) PO SCH ×3 (10:03→22:43)
[2019-03-01] MEDS: POVIDONE-IODINE 10% SOLN 118 ML BOTTLE TP SCH (10:04)
[2019-03-01] MEDS: SENNOSIDES 8.6MG TABLET (FP) PO SCH (22:43)
[2019-03-01] MEDS: ACETAMINOPHEN 325 MG TABLET (FP) PO PRN (22:45)
--- NOTE | 2019-03-02 07:22 | DS ---
Physical Examination Vital Signs: Vital Signs Temperature 97.8 F 03/01/19 10:00 Pulse Rate 78 03/01/19 10:00 Respiratory Rate 20 03/01/19 10:00 Blood Pressure 108/70 03/01/19 10:00 O2 Sat by Pulse Oximetry (%) 100 03/01/19 21:00 Constitutional: Yes: No Distress Cardiovascular: Yes: Regular Rate and Rhythm Respiratory: Yes: WNL Gastrointestinal: Yes: Other (nephrostomy drain and YA drain for continuous drainage) Musculoskeletal: Yes: Muscle Weakness Integumentary: Yes: Pressure Ulcer (sacral) Neurological: Yes: Loss of Sensation, Paresthesia, Pre-Existing Deficit, Weakness ...Motor Strength: LLE, RLE Labs: CBC, BMP 02/28/19 07:20 02/28/19 07:20 Discharge Summary Problems reviewed: Yes Reason For Visit: CHRONIC INDWELLING PINZON CATHETER,UTI,CONSTIPATION Current Active Problems Cellulitis of left abdominal wall (Acute) Chronic indwelling Pinzon catheter (Acute) Constipated (Acute) Fever (Acute) Neurogenic bladder (Acute) UTI (urinary tract infection) (Acute) Procedures: Principal: drains placed for psoas fistula. nephrostomy. ct scans Hospital Course: - Problems (1) Chronic indwelling Pinzon catheter Assessment/Plan: -2/2 neurogenic bladder -Urology Consult-patient now requesting Dr Oro Code(s): Z92.89 - PERSONAL HISTORY OF OTHER MEDICAL TREATMENT (2) Constipated Assessment/Plan: -GI consult -Senna, Colace -Lactulose added to regimen -repeat FUA ordered -[id number] Code(s): K59.00 - CONSTIPATION, UNSPECIFIED Qualifiers: Constipation type: unspecified constipation type Qualified Code(s): K59.00 - Constipation, unspecified (3) UTI (urinary tract infection) Assessment/Plan: -ID consult -UA 3+ leuks, + nitrites, 1+ blood , 2+ protein -UC prelim positive -received Meropenem in ER -no leukocytosis -afebrile Code(s): N39.0 - URINARY TRACT INFECTION, SITE NOT SPECIFIED Qualifiers: Urinary tract infection type: site unspecified Hematuria presence: with hematuria Qualified Code(s): N39.0 - Urinary tract infection, site not specified; R31.9 - Hematuria, unspecified (4) COPD (chronic obstructive pulmonary disease) Assessment/Plan: -Bronchodilators -Keep SpO2 >90% -O2 via NC -Pulm consult Code(s): J44.9 - CHRONIC OBSTRUCTIVE PULMONARY DISEASE, UNSPECIFIED Qualifiers: COPD type: unspecified COPD Qualified Code(s): J44.9 - Chronic obstructive pulmonary disease, unspecified (5) Neurogenic bladder Assessment/Plan: -Urology consult -FC changed by Urology Code(s): N31.9 - NEUROMUSCULAR DYSFUNCTION OF BLADDER, UNSPECIFIED (6) Weakness Assessment/Plan: -Fall risk -PT Code(s): R53.1 - WEAKNESS (7) JOSE CRUZ (acute kidney injury) Assessment/Plan: -BUN/Cr 29.1/1.0 -monitor renal function -Renal consult Code(s): N17.9 - ACUTE KIDNEY FAILURE, UNSPECIFIED (8) MDRO (multiple drug resistant organisms) resistance Assessment/Plan: -contact precaution Code(s): Z16.35 - RESISTANCE TO MULTIPLE ANTIMICROBIAL DRUGS Health Concerns: 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 Goals: continue bactrim for 7 more days Condition: Stable - Instructions Diet, Activity, Other Instructions: see dr dudley in 2-3 weeks Referrals: Leola Dudley MD [Primary Care Provider] - Disposition: VNS/HOME HEALTH CARE - Home Medications Comprehensive Discharge Medication List: Ambulatory Orders Multivitamin [Multiple Vitamins] 1 tab PO DAILY 08/04/18 Acetaminophen [Tylenol .Regular Strength -] 650 mg PO Q6H PRN tablet 09/09/18 Docusate Sodium [Colace -] 100 mg PO BID capsule 09/09/18 Magnesium Hydrox 2400MG/30Ml [Milk of Magnesia -] 30 ml PO DAILY PRN cup Methyl Salicylate/Menthol Oint [Analgesic Nucla -] 1 applic TP Q6H PRN applic Sennosides [Senna -] 2 tab PO HS tablet 09/09/18 Simethicone [Mylicon -] 80 mg PO Q4H PRN tab.chew 09/09/18 Albuterol 0.083% Nebulizer Estrellita [Ventolin 0.083% Nebulizer Soln -] 1 amp NEB Q6H PRN amp 02/13/19 Prescription Drug Monitoring Program (I-STOP) results: I-STOP not reviewed
--- NOTE | 2019-03-02 09:42 | PN ---
Progress Note (short form) - Note Progress Note: PATIENT DOES NOT AGREE WITH THE MEDICAL PLAN FORMULATED BY MULTIPLE SPECIALISTS. I SPOKE WITH DR TAMIKO CESAR, DR VENESSA Jeffries , DR YOBANI CESAR IN [place] AND THE TREATMENT FOR CHRONIC FISTULA IN THE PSOAS WITH HYDRONEPHROSIS IS A NEPHROSTOMY TUBE AND YA DRAIN. PATIENT DOES NOT HAVE ANY FEVERS OR LEUKOCYTOSIS AND CAN GO HOME ON PO ANTIBIOTICS AND HOME HEALTH CARE OR TO A SHORT TERM FACILITY. FOLLOW UP WITH DR HILTON IN [place] OUTPATIENT OR INPATIENT. PATIENT WANTS THE DRAINS REMOVED AND THIS IS NOT ADVISED MEDICALLY. Problem List - Problems (1) Chronic indwelling Pelaez catheter Code(s): Z92.89 - PERSONAL HISTORY OF OTHER MEDICAL TREATMENT (2) Constipated Code(s): K59.00 - CONSTIPATION, UNSPECIFIED Qualifiers: Constipation type: unspecified constipation type Qualified Code(s): K59.00 - Constipation, unspecified (3) Neurogenic bladder Code(s): N31.9 - NEUROMUSCULAR DYSFUNCTION OF BLADDER, UNSPECIFIED (4) UTI (urinary tract infection) Code(s): N39.0 - URINARY TRACT INFECTION, SITE NOT SPECIFIED Qualifiers: Urinary tract infection type: site unspecified Hematuria presence: with hematuria Qualified Code(s): N39.0 - Urinary tract infection, site not specified; R31.9 - Hematuria, unspecified (5) Acquired functional megacolon Code(s): K59.39 - OTHER MEGACOLON (6) Anemia Code(s): D64.9 - ANEMIA, UNSPECIFIED Qualifiers: Anemia type: iron deficiency Other causes of anemia: due to other specified chronic disease (7) COPD (chronic obstructive pulmonary disease) Code(s): J44.9 - CHRONIC OBSTRUCTIVE PULMONARY DISEASE, UNSPECIFIED Qualifiers: COPD type: unspecified COPD Qualified Code(s): J44.9 - Chronic obstructive pulmonary disease, unspecified (8) Decubitus ulcer Code(s): L89.90 - PRESSURE ULCER OF UNSPECIFIED SITE, UNSPECIFIED STAGE Qualifiers: Laterality: unspecified laterality (9) Paraplegia following spinal cord injury Code(s): G82.20 - PARAPLEGIA, UNSPECIFIED
[2019-03-02] MEDS: MULTIVITAMINS (DAILY MVI) TABLET (FP) PO SCH (11:35)
[2019-03-02] MEDS: PANTOPRAZOLE 40 MG TABLET (FP) PO SCH (11:35)
[2019-03-02] MEDS: SULFAMETHOXAZOLE/TRIMETHOPRIM 800MG/160MG D.S. TABLET PO SCH ×2 (11:35→22:54)
[2019-03-02] MEDS: MINERAL OIL/PET HY-PHL TOPICAL OINTMENT 454 GM JAR TP SCH (11:36)
[2019-03-02] MEDS: DOCUSATE SODIUM 100 MG CAPSULE (FP) PO SCH ×2 (11:36→22:55)
[2019-03-02] MEDS: POVIDONE-IODINE 10% SOLN 118 ML BOTTLE TP SCH (11:36)
--- NOTE | 2019-03-02 16:56 | PN ---
Progress Note (short form) - Note Progress Note: Pt seen today with c/o leaking hull catheter. Hull changed 18F with 20cc balloon.
[2019-03-02] MEDS: ACETAMINOPHEN 325 MG TABLET (FP) PO PRN (22:53)
[2019-03-02] MEDS: SIMETHICONE 80 MG TAB.CHEW (FP) PO PRN (22:54)
[2019-03-02] MEDS: SENNOSIDES 8.6MG TABLET (FP) PO SCH (22:55)
[2019-03-03] MEDS ORDERED: PT OWN MED DRAWER 7, Y5N ONE (10:19)
[2019-03-03] MEDS: POVIDONE-IODINE 10% SOLN 118 ML BOTTLE TP SCH (10:30)
[2019-03-03] MEDS: SULFAMETHOXAZOLE/TRIMETHOPRIM 800MG/160MG D.S. TABLET PO SCH ×2 (10:30→22:44)
[2019-03-03] MEDS: MULTIVITAMINS (DAILY MVI) TABLET (FP) PO SCH (10:30)
[2019-03-03] MEDS: DOCUSATE SODIUM 100 MG CAPSULE (FP) PO SCH ×2 (10:30→22:45)
[2019-03-03] MEDS: MINERAL OIL/PET HY-PHL TOPICAL OINTMENT 454 GM JAR TP SCH (10:30)
[2019-03-03] MEDS: PANTOPRAZOLE 40 MG TABLET (FP) PO SCH (10:30)
--- NOTE | 2019-03-03 11:14 | CON.PSY ---
Psychiatry Consult Chief Complaint: 53 year old male, paraplegic with multiple merdical conditions seen for Psych eval for saying wish to >> Patient did not engage in any self damaging behaviour. Patient is alert and wsashing himself, reports being frustrated of being in the Hospitals most of this [place]. He vehemently denies any suicidal plans. No history of any previous suicide attempts. Symptoms: reports: Depressed Mood - Previous Psychiatric Treatment Outpatient: None Inpatient: None - Previous Substance Abuse Treatment Outpatient: None Inpatient: None - Current Medications Current Medications: Active Medications Acetaminophen (Tylenol -) 650 mg PO Q6H PRN PRN Reason: PAIN LEVEL 1-5 Last Admin: 03/02/19 22:53 Dose: 650 mg Docusate Sodium (Colace -) 100 mg PO BID [facility] Last Admin: 03/03/19 10:30 Dose: Not Given Emollient Ointment (Aquaphor -) 1 applic TP DAILY [facility] Last Admin: 03/03/19 10:30 Dose: 1 applic Lactulose (Cephulac (Oral Use)) 20 gm PO TID PRN PRN Reason: CONSTIPATION Magnesium Hydroxide (Milk Of Magnesia -) 30 ml PO DAILY PRN PRN Reason: CONSTIPATION Last Admin: 02/13/19 09:41 Dose: 30 ml Methyl Salicylate (Osmar-Moreno -) 1 applic TP Q6H PRN PRN Reason: BACK PAIN Multivitamins/Minerals/Vitamin C (Tab-A-Vit -) 1 tab PO DAILY [facility] Last Admin: 03/03/19 10:30 Dose: 1 tab Pantoprazole Sodium (Protonix -) 40 mg PO DAILY [facility] Last Admin: 03/03/19 10:30 Dose: 40 mg Povidone Iodine (Betadine 10% Solution -) 1 applic TP DAILY [facility] Last Admin: 03/03/19 10:30 Dose: 1 applic Senna (Senna -) 2 tab PO HS [facility] Last Admin: 03/02/19 22:55 Dose: Not Given Simethicone (Mylicon -) 80 mg PO Q4H PRN PRN Reason: GAS Last Admin: 03/02/19 22:54 Dose: 80 mg Trimethoprim/Sulfamethoxazole (Bactrim Ds -) 1 each PO BID [facility] Last Admin: 03/03/19 10:30 Dose: 1 each - Allergies Allergies: Allergies Allergy/AdvReac Type Severity Reaction Status Date / Time ampicillin Allergy Mild Itching Verified 02/09/19 05:30 polymyxin B Allergy Mild Itching Verified 02/09/19 05:30 - Current Living Status Usual Living Arrangement: Alone - Current Mental Status Evaluation Appearance: Well Groomed Attitude: Cooperative - Affect Affect: Constrictive Appropriateness: Appropriate to Content - Mood Mood: Irritable - Speech/Language Expressive: Coherent - Psychomotor Activity Psychomotor Activity: Normal - Thought Process Thought Process: Intact - Thought Content Hallucinations: Absent Delusions: Absent - Self Perception Self Perception: No Impairment - Cognition Attention: Alert Orientation: Time Memory, Immediate Recall: Intact Memory, Short Term: 3/3 Memory, Remote with Promptin/3 - Concentration Serial Sevens Intact: Yes Simple Calculations Intact: Yes - Abstraction Proverb Interpretation: Intact Judgement: Minimally Impaired - Insight Insight: Intact - Impulse Control Impulse Control: Good Control - Suicidal Ideation Suicidal Ideation: No - Homicidal Ideation Homicidal Ideation: No Assessment/Plan 1) Patient is not suicidal at this time. 2) No need for 1:1. 3) could benefit from an anti depressant but refusing. 4) Discharge when medically clear.
[2019-03-03 11:38] LABS: BASO % 0.7 % (0-2.0); EOS % 2.4 % (0-4.5); HEMATOCRIT 32.4 % (35.4-49); HEMOGLOBIN 10.1 GM/dL (11.7-16.9); LYMPH % 20.3 % (8-40); MCH 25.9 pg (25.7-33.7); MCHC 31.3 g/dl (32.0-35.9); MEAN CELL VOLUME 82.7 fl (80-96); MEAN PLT VOLUME 8.3 fl (7.5-11.1); MONO % 7.9 % (3.8-10.2); NEUT % 68.7 % (42.8-82.8); PLATELET COUNT 239 K/MM3 (134-434); RBC 3.92 M/mm3 (4.00-5.60); RDW 18.7 % (11.9-15.9); WHITE BLOOD COUNT 5.5 K/mm3 (4.0-10.0)
--- NOTE | 2019-03-03 11:53 | EKG ---
Test Reason : Blood Pressure : / mmHG Vent. Rate : 076 BPM Atrial Rate : 076 BPM P-R Int : 152 ms QRS Dur : 110 ms QT Int : 394 ms P-R-T Axes : 062 056 067 degrees QTc Int : 443 ms NORMAL SINUS RHYTHM LATERAL INFARCT (CITED ON OR BEFORE 12-MAY-2017) ABNORMAL ECG WHEN COMPARED WITH ECG OF 08-FEB-2019 23:09, NO SIGNIFICANT CHANGE WAS FOUND Confirmed by ELENA WILKES MD ([id number]) on 03/03/2019 11:53:06 AM Referred By: MARIANELA MANUEL DR Confirmed By:ELENA WILKES MD
[2019-03-03 12:13] LABS: ALBUMIN 2.9 g/dl (3.4-5.0); ALK PHOS 87 U/L (45-117); ANION GAP 7 MMOL/L (8-16); BILIRUBIN,TOTAL 0.2 mg/dL (0.2-1); BLOOD UREA NITROGEN 33.6 mg/dL (7-18); CALCIUM 8.9 mg/dL (8.5-10.1); CHLORIDE 106 mmol/L (98-107); CO2 27 mmol/L (21-32); CREATININE 1.2 mg/dL (0.55-1.3); GLUCOSE,RANDOM 101 mg/dL (74-106); POTASSIUM 4.7 mmol/L (3.5-5.1); SGOT/AST 11 U/L (15-37); SGPT/ALT 12 U/L (13-61); SODIUM 139 mmol/L (136-145); TOT PROT 7.6 g/dl (6.4-8.2)
--- NOTE | 2019-03-03 17:43 | PN ---
Progress Note (short form) - Note Progress Note: UROLOGY NOTE: Pt with left perc nephrostomy. Patent, urine clear. Anterograde nephrostogram reveals blockage at left UPJ (Stone). Previous iliopsoas abscess in left groin resolved. Presently c/o periurethral catheter leakage of urine. Today D/C'ed iliopsoas drain. Changed hull to 18 fr 20 cc. Pt urologically stable for discharge. Will need follow up at [facility] for a left PCN with lithotripsy and left percutaneous stent internalization.
[2019-03-03] MEDS: SIMETHICONE 80 MG TAB.CHEW (FP) PO PRN (22:44)
[2019-03-03] MEDS: ACETAMINOPHEN 325 MG TABLET (FP) PO PRN (22:44)
[2019-03-03] MEDS: SENNOSIDES 8.6MG TABLET (FP) PO SCH (22:45)
[2019-03-04] MEDS: MULTIVITAMINS (DAILY MVI) TABLET (FP) PO SCH (10:28)
[2019-03-04] MEDS: DOCUSATE SODIUM 100 MG CAPSULE (FP) PO SCH ×2 (10:28→22:21)
[2019-03-04] MEDS: SULFAMETHOXAZOLE/TRIMETHOPRIM 800MG/160MG D.S. TABLET PO SCH ×2 (10:28→22:19)
[2019-03-04] MEDS: MINERAL OIL/PET HY-PHL TOPICAL OINTMENT 454 GM JAR TP SCH (10:28)
[2019-03-04] MEDS: PANTOPRAZOLE 40 MG TABLET (FP) PO SCH (10:28)
[2019-03-04] MEDS: POVIDONE-IODINE 10% SOLN 118 ML BOTTLE TP SCH (13:00)
--- NOTE | 2019-03-04 17:33 | PN ---
Progress Note (short form) - Note Progress Note: PATIENT ASLEEP NO NEW EVENTS AWAITING PLACEMENT VS HOME WITH VASCULAR TECH UROLOGY CHANGED PINZON CHECK LABS IN AM Problem List - Problems (1) Chronic indwelling Pinzon catheter Code(s): Z92.89 - PERSONAL HISTORY OF OTHER MEDICAL TREATMENT (2) Constipated Code(s): K59.00 - CONSTIPATION, UNSPECIFIED Qualifiers: Constipation type: unspecified constipation type Qualified Code(s): K59.00 - Constipation, unspecified (3) Neurogenic bladder Code(s): N31.9 - NEUROMUSCULAR DYSFUNCTION OF BLADDER, UNSPECIFIED (4) UTI (urinary tract infection) Code(s): N39.0 - URINARY TRACT INFECTION, SITE NOT SPECIFIED Qualifiers: Urinary tract infection type: site unspecified Hematuria presence: with hematuria Qualified Code(s): N39.0 - Urinary tract infection, site not specified; R31.9 - Hematuria, unspecified (5) Acquired functional megacolon Code(s): K59.39 - OTHER MEGACOLON (6) Anemia Code(s): D64.9 - ANEMIA, UNSPECIFIED Qualifiers: Anemia type: iron deficiency Other causes of anemia: due to other specified chronic disease (7) COPD (chronic obstructive pulmonary disease) Code(s): J44.9 - CHRONIC OBSTRUCTIVE PULMONARY DISEASE, UNSPECIFIED Qualifiers: COPD type: unspecified COPD Qualified Code(s): J44.9 - Chronic obstructive pulmonary disease, unspecified (8) Decubitus ulcer Code(s): L89.90 - PRESSURE ULCER OF UNSPECIFIED SITE, UNSPECIFIED STAGE Qualifiers: Laterality: unspecified laterality (9) Paraplegia following spinal cord injury Code(s): G82.20 - PARAPLEGIA, UNSPECIFIED
[2019-03-04] MEDS: ACETAMINOPHEN 325 MG TABLET (FP) PO PRN (22:20)
[2019-03-04] MEDS: SIMETHICONE 80 MG TAB.CHEW (FP) PO PRN (22:20)
[2019-03-04] MEDS: SENNOSIDES 8.6MG TABLET (FP) PO SCH (22:21)
[2019-03-05 08:26] LABS: HEMOGLOBIN 10.1 GM/dL (11.7-16.9); MCH 25.6 pg (25.7-33.7); MCHC 31.5 g/dl (32.0-35.9); MEAN CELL VOLUME 81.3 fl (80-96); MEAN PLT VOLUME 8.4 fl (7.5-11.1); PLATELET COUNT 196 K/MM3 (134-434); RBC 3.94 M/mm3 (4.00-5.60); RDW 19.2 % (11.9-15.9); WHITE BLOOD COUNT 14.3 K/mm3 (4.0-10.0)
[2019-03-05 08:50] LABS: BILIRUBIN,TOTAL 0.2 mg/dL (0.2-1); BLOOD UREA NITROGEN 37.4 mg/dL (7-18); CALCIUM 8.8 mg/dL (8.5-10.1); CREATININE 1.2 mg/dL (0.55-1.3); POTASSIUM 4.4 mmol/L (3.5-5.1); TOT PROT 7.4 g/dl (6.4-8.2)
[2019-03-05] MEDS: SIMETHICONE 80 MG TAB.CHEW (FP) PO PRN ×2 (09:02→21:25)
[2019-03-05] MEDS: PANTOPRAZOLE 40 MG TABLET (FP) PO SCH (09:03)
[2019-03-05] MEDS: SULFAMETHOXAZOLE/TRIMETHOPRIM 800MG/160MG D.S. TABLET PO SCH ×2 (09:03→21:25)
[2019-03-05] MEDS: MULTIVITAMINS (DAILY MVI) TABLET (FP) PO SCH (09:03)
[2019-03-05] MEDS: ACETAMINOPHEN 325 MG TABLET (FP) PO PRN ×2 (09:03→21:25)
[2019-03-05] MEDS: MINERAL OIL/PET HY-PHL TOPICAL OINTMENT 454 GM JAR TP SCH (09:05)
--- NOTE | 2019-03-05 09:52 | PN ---
Progress Note, Physician Chief Complaint: Abdominal Distention Paraplegia Neurogenic Bladder History of Present Illness: C/o pain LLQ abd - Current Medication List Current Medications: Active Medications Acetaminophen (Tylenol -) 650 mg PO Q6H PRN PRN Reason: PAIN LEVEL 1-5 Last Admin: 03/05/19 09:03 Dose: 650 mg Docusate Sodium (Colace -) 100 mg PO BID [facility] Last Admin: 03/04/19 22:21 Dose: Not Given Emollient Ointment (Aquaphor -) 1 applic TP DAILY [facility] Last Admin: 03/05/19 09:05 Dose: Not Given Lactulose (Cephulac (Oral Use)) 20 gm PO TID PRN PRN Reason: CONSTIPATION Magnesium Hydroxide (Milk Of Magnesia -) 30 ml PO DAILY PRN PRN Reason: CONSTIPATION Last Admin: 02/13/19 09:41 Dose: 30 ml Methyl Salicylate (Osmar-Moreno -) 1 applic TP Q6H PRN PRN Reason: BACK PAIN Multivitamins/Minerals/Vitamin C (Tab-A-Vit -) 1 tab PO DAILY [facility] Last Admin: 03/05/19 09:03 Dose: 1 tab Pantoprazole Sodium (Protonix -) 40 mg PO DAILY [facility] Last Admin: 03/05/19 09:03 Dose: 40 mg Povidone Iodine (Betadine 10% Solution -) 1 applic TP DAILY [facility] Last Admin: 03/04/19 13:00 Dose: 1 applic Senna (Senna -) 2 tab PO HS [facility] Last Admin: 03/04/19 22:21 Dose: Not Given Simethicone (Mylicon -) 80 mg PO Q4H PRN PRN Reason: GAS Last Admin: 03/05/19 09:02 Dose: 80 mg Trimethoprim/Sulfamethoxazole (Bactrim Ds -) 1 each PO BID [facility] Last Admin: 03/05/19 09:03 Dose: 1 each - Objective Vital Signs: Vital Signs Temperature 98.3 F 03/05/19 09:01 Pulse Rate 96 H 03/05/19 09:01 Respiratory Rate 18 03/05/19 09:01 Blood Pressure 96/64 03/05/19 09:01 O2 Sat by Pulse Oximetry (%) 100 03/04/19 20:53 Constitutional: Yes: Well Nourished, No Distress, Calm Cardiovascular: Yes: Regular Rate and Rhythm Respiratory: Yes: Regular Gastrointestinal: Yes: Normal Bowel Sounds, Soft Genitourinary: Yes: Pelaez Present Musculoskeletal: Yes: Other (paraplegia) Extremities: Yes: WNL Edema: Yes Peripheral Pulses WNL: Yes Neurological: Yes: Alert, Oriented Psychiatric: Yes: Alert, Oriented Labs: CBC, BMP 03/05/19 07:55 03/05/19 07:55 INR, PTT INR 1.07 (0.83-1.09) 02/09/19 00:05 Assessment/Plan - Problems (1) Chronic indwelling Pelaez catheter Assessment/Plan: -2/2 neurogenic bladder -Urology on board -FC changed twice this admission- still leaking Code(s): Z92.89 - PERSONAL HISTORY OF OTHER MEDICAL TREATMENT (2) Constipated Assessment/Plan: -GI consult -Senna, Colace -Soap Lesley enemas Code(s): K59.00 - CONSTIPATION, UNSPECIFIED Qualifiers: Constipation type: unspecified constipation type Qualified Code(s): K59.00 - Constipation, unspecified (3) UTI (urinary tract infection) Assessment/Plan: -ID consult -Chronic -no leukocytosis -afebrile Code(s): N39.0 - URINARY TRACT INFECTION, SITE NOT SPECIFIED Qualifiers: Urinary tract infection type: site unspecified Hematuria presence: with hematuria Qualified Code(s): N39.0 - Urinary tract infection, site not specified; R31.9 - Hematuria, unspecified (4) COPD (chronic obstructive pulmonary disease) Assessment/Plan: -Bronchodilators -Keep SpO2 >90% -O2 via NC -Pulm on board Code(s): J44.9 - CHRONIC OBSTRUCTIVE PULMONARY DISEASE, UNSPECIFIED Qualifiers: COPD type: unspecified COPD Qualified Code(s): J44.9 - Chronic obstructive pulmonary disease, unspecified (5) Neurogenic bladder Assessment/Plan: -Urology on board Code(s): N31.9 - NEUROMUSCULAR DYSFUNCTION OF BLADDER, UNSPECIFIED (6) Weakness Assessment/Plan: -Fall risk precautions -PT Code(s): R53.1 - WEAKNESS (7) JOSE CRUZ (acute kidney injury) Assessment/Plan: -monitor renal function -Renal consult Code(s): N17.9 - ACUTE KIDNEY FAILURE, UNSPECIFIED (8) MDRO (multiple drug resistant organisms) resistance Assessment/Plan: -contact precaution Code(s): Z16.35 - RESISTANCE TO MULTIPLE ANTIMICROBIAL DRUGS (9) Cellulitis of left abdominal wall Assessment/Plan: -ID on board -no leukocytosis -afebrile -started on Zyvox -no IV access IR consult for central line placement -Abd/Pelvic CT scan-02/24/19: shows increased size of a left iliopsoas fluid collection noted which is also now extends into left anterior pelvic wall -IR consult for percutaneous drainage of retroperitoneal abscess -BC neg -Repeat CT abd/pelvis as the cellulitis is much worse Code(s): L03.311 - CELLULITIS OF ABDOMINAL WALL Assessment/Plan problem list dvt ppx
[2019-03-05] MEDS: POVIDONE-IODINE 10% SOLN 118 ML BOTTLE TP SCH (13:02)
[2019-03-05] MEDS: DOCUSATE SODIUM 100 MG CAPSULE (FP) PO SCH ×2 (13:03→21:23)
--- NOTE | 2019-03-05 19:13 | PN ---
Progress Note, Physician History of Present Illness: AWAKE, ALERT IN BED INCREASED ERYTHEMA L GROIN AREA WLEVATED WBC NOTED AFEBRILE - Current Medication List Current Medications: Active Medications Acetaminophen (Tylenol -) 650 mg PO Q6H PRN PRN Reason: PAIN LEVEL 1-5 Last Admin: 03/05/19 09:03 Dose: 650 mg Docusate Sodium (Colace -) 100 mg PO BID [facility] Last Admin: 03/05/19 13:03 Dose: 100 mg Emollient Ointment (Aquaphor -) 1 applic TP DAILY [facility] Last Admin: 03/05/19 09:05 Dose: Not Given Lactulose (Cephulac (Oral Use)) 20 gm PO TID PRN PRN Reason: CONSTIPATION Magnesium Hydroxide (Milk Of Magnesia -) 30 ml PO DAILY PRN PRN Reason: CONSTIPATION Last Admin: 02/13/19 09:41 Dose: 30 ml Methyl Salicylate (Osmar-Moreno -) 1 applic TP Q6H PRN PRN Reason: BACK PAIN Multivitamins/Minerals/Vitamin C (Tab-A-Vit -) 1 tab PO DAILY [facility] Last Admin: 03/05/19 09:03 Dose: 1 tab Pantoprazole Sodium (Protonix -) 40 mg PO DAILY [facility] Last Admin: 03/05/19 09:03 Dose: 40 mg Povidone Iodine (Betadine 10% Solution -) 1 applic TP DAILY [facility] Last Admin: 03/05/19 13:02 Dose: 1 applic Senna (Senna -) 2 tab PO HS [facility] Last Admin: 03/04/19 22:21 Dose: Not Given Simethicone (Mylicon -) 80 mg PO Q4H PRN PRN Reason: GAS Last Admin: 03/05/19 09:02 Dose: 80 mg Trimethoprim/Sulfamethoxazole (Bactrim Ds -) 1 each PO BID [facility] Last Admin: 03/05/19 09:03 Dose: 1 each - Objective Vital Signs: Vital Signs Temperature 97.6 F 03/05/19 16:46 Pulse Rate 96 H 03/05/19 09:01 Respiratory Rate 18 03/05/19 09:01 Blood Pressure 96/64 03/05/19 09:01 O2 Sat by Pulse Oximetry (%) 100 03/05/19 09:00 Constitutional: Yes: No Distress Eyes: Yes: Conjunctiva Clear Cardiovascular: Yes: Regular Rate and Rhythm Respiratory: Yes: CTA Bilaterally Gastrointestinal: Yes: Other (DISTENDED) Integumentary: Yes: Other (ERYTHEMA L GROIN/LOWER ABDOMINAL AREA) Labs: CBC, BMP 03/05/19 07:55 03/05/19 07:55 INR, PTT INR 1.07 (0.83-1.09) 02/09/19 00:05 Assessment/Plan CELLULITIS L GROIN/FLANK RECURRENT CHRONIC L PSOAS COLLECTION/ FISTULA PARAPLEGIA S/P L PCN NEUROGENIC BLADDER/ INDWELLING PINZON D/C BACTRIM SUBSTITUE ZYVOX COLLECTION DRAINAGE PER /SURG/IR IF WORSENING CELLULITIS/ LEUKOCYTOSIS WILL NEED IV ACCESS FOR ABX
[2019-03-05] MEDS: SENNOSIDES 8.6MG TABLET (FP) PO SCH (21:23)
--- NOTE | 2019-03-06 09:35 | PN ---
Progress Note, Physician Chief Complaint: Abdominal Distention Paraplegia Neurogenic Bladder History of Present Illness: Feels beeter LLQ abd wall cellulitis worse today Started on Zyvox Leukocytosis improved - Current Medication List Current Medications: Active Medications Acetaminophen (Tylenol -) 650 mg PO Q6H PRN PRN Reason: PAIN LEVEL 1-5 Last Admin: 03/05/19 21:25 Dose: 325 mg Docusate Sodium (Colace -) 100 mg PO BID [facility] Last Admin: 03/05/19 21:23 Dose: Not Given Emollient Ointment (Aquaphor -) 1 applic TP DAILY [facility] Last Admin: 03/05/19 09:05 Dose: Not Given Lactulose (Cephulac (Oral Use)) 20 gm PO TID PRN PRN Reason: CONSTIPATION Linezolid (Zyvox (Restricted To Id) -) 600 mg PO BID [facility] Magnesium Hydroxide (Milk Of Magnesia -) 30 ml PO DAILY PRN PRN Reason: CONSTIPATION Last Admin: 02/13/19 09:41 Dose: 30 ml Methyl Salicylate (Osmar-Moreno -) 1 applic TP Q6H PRN PRN Reason: BACK PAIN Multivitamins/Minerals/Vitamin C (Tab-A-Vit -) 1 tab PO DAILY [facility] Last Admin: 03/05/19 09:03 Dose: 1 tab Pantoprazole Sodium (Protonix -) 40 mg PO DAILY [facility] Last Admin: 03/05/19 09:03 Dose: 40 mg Povidone Iodine (Betadine 10% Solution -) 1 applic TP DAILY [facility] Last Admin: 03/05/19 13:02 Dose: 1 applic Senna (Senna -) 2 tab PO HS [facility] Last Admin: 03/05/19 21:23 Dose: Not Given Simethicone (Mylicon -) 80 mg PO Q4H PRN PRN Reason: GAS Last Admin: 03/05/19 21:25 Dose: 80 mg - Objective Vital Signs: Vital Signs Temperature 98.4 F 03/06/19 09:18 Pulse Rate 100 H 03/06/19 09:18 Respiratory Rate 20 03/06/19 09:18 Blood Pressure 105/65 03/06/19 09:18 O2 Sat by Pulse Oximetry (%) 100 03/05/19 21:00 Constitutional: Yes: Well Nourished, No Distress, Calm Cardiovascular: Yes: Regular Rate and Rhythm Respiratory: Yes: Regular Gastrointestinal: Yes: Hypoactive Bowel Sounds, Tenderness (LLQ) Musculoskeletal: Yes: Other (Paraplegia) Edema: No Peripheral Pulses WNL: Yes Integumentary: Yes: Erythema (LLQ abd) Neurological: Yes: Alert, Oriented Psychiatric: Yes: Alert, Oriented Labs: CBC, BMP 03/05/19 07:55 03/05/19 07:55 INR, PTT INR 1.07 (0.83-1.09) 02/09/19 00:05 Assessment/Plan - Problems (1) Chronic indwelling Pelaez catheter Assessment/Plan: -2 neurogenic bladder -Urology on board -FC changed twice this admission- still leaking Code(s): Z92.89 - PERSONAL HISTORY OF OTHER MEDICAL TREATMENT (2) Constipated Assessment/Plan: -GI consult -Senna, Colace -Soap Lesley enemas Code(s): K59.00 - CONSTIPATION, UNSPECIFIED Qualifiers: Constipation type: unspecified constipation type Qualified Code(s): K59.00 - Constipation, unspecified (3) UTI (urinary tract infection) Assessment/Plan: -ID consult -Chronic -no leukocytosis -afebrile Code(s): N39.0 - URINARY TRACT INFECTION, SITE NOT SPECIFIED Qualifiers: Urinary tract infection type: site unspecified Hematuria presence: with hematuria Qualified Code(s): N39.0 - Urinary tract infection, site not specified; R31.9 - Hematuria, unspecified (4) COPD (chronic obstructive pulmonary disease) Assessment/Plan: -Bronchodilators -Keep SpO2 >90% -O2 via NC -Pulm on board Code(s): J44.9 - CHRONIC OBSTRUCTIVE PULMONARY DISEASE, UNSPECIFIED Qualifiers: COPD type: unspecified COPD Qualified Code(s): J44.9 - Chronic obstructive pulmonary disease, unspecified (5) Neurogenic bladder Assessment/Plan: -Urology on board Code(s): N31.9 - NEUROMUSCULAR DYSFUNCTION OF BLADDER, UNSPECIFIED (6) Weakness Assessment/Plan: -Fall risk precautions -PT Code(s): R53.1 - WEAKNESS (7) JOSE CRUZ (acute kidney injury) Assessment/Plan: -monitor renal function -Renal consult Code(s): N17.9 - ACUTE KIDNEY FAILURE, UNSPECIFIED (8) MDRO (multiple drug resistant organisms) resistance Assessment/Plan: -contact precaution Code(s): Z16.35 - RESISTANCE TO MULTIPLE ANTIMICROBIAL DRUGS (9) Cellulitis of left abdominal wall Assessment/Plan: -ID on board -leukocytosis improved -afebrile -started on Zyvox -Abd/Pelvic CT scan-02/24/19: shows increased size of a left iliopsoas fluid collection noted which is also now extends into left anterior pelvic wall -IR consult for percutaneous drainage of retroperitoneal abscess -BC neg -Repeat CT abd/pelvis as the cellulitis is much worse Code(s): L03.311 - CELLULITIS OF ABDOMINAL WALL Assessment/Plan problem list dvt ppx
[2019-03-06 10:47] LABS: BASO % 0.3 % (0-2.0); EOS % 0.3 % (0-4.5); HEMATOCRIT 30.3 % (35.4-49); HEMOGLOBIN 9.5 GM/dL (11.7-16.9); LYMPH % 5.6 % (8-40); MCH 25.6 pg (25.7-33.7); MCHC 31.3 g/dl (32.0-35.9); MEAN CELL VOLUME 82.1 fl (80-96); MEAN PLT VOLUME 8.6 fl (7.5-11.1); MONO % 5.4 % (3.8-10.2); NEUT % 88.4 % (42.8-82.8); PLATELET COUNT 157 K/MM3 (134-434); RBC 3.69 M/mm3 (4.00-5.60); RDW 19.2 % (11.9-15.9)
[2019-03-06] MEDS ORDERED: PT OWN MED DRAWER 7, Y5N ONE ×2 (11:09→20:38)
[2019-03-06] MEDS: MINERAL OIL/PET HY-PHL TOPICAL OINTMENT 454 GM JAR TP SCH (11:33)
[2019-03-06] MEDS: PANTOPRAZOLE 40 MG TABLET (FP) PO SCH (11:33)
[2019-03-06] MEDS: LINEZOLID 600 MG TABLET (RESTRICTED TO ID) PO SCH ×2 (11:34→21:52)
[2019-03-06] MEDS: DOCUSATE SODIUM 100 MG CAPSULE (FP) PO SCH ×2 (11:34→21:52)
[2019-03-06] MEDS: POVIDONE-IODINE 10% SOLN 118 ML BOTTLE TP SCH (11:34)
[2019-03-06] MEDS: MULTIVITAMINS (DAILY MVI) TABLET (FP) PO SCH (11:34)
--- NOTE | 2019-03-06 14:23 | PN ---
Progress Note, Physician History of Present Illness: AWAKE, ALERT IN BED NO COMPLAINTS AFEBRILE WBC IMPROVED - Current Medication List Current Medications: Active Medications Acetaminophen (Tylenol -) 650 mg PO Q6H PRN PRN Reason: PAIN LEVEL 1-5 Last Admin: 03/05/19 21:25 Dose: 325 mg Docusate Sodium (Colace -) 100 mg PO BID [facility] Last Admin: 03/06/19 11:34 Dose: Not Given Emollient Ointment (Aquaphor -) 1 applic TP DAILY [facility] Last Admin: 03/06/19 11:33 Dose: 1 applic Lactulose (Cephulac (Oral Use)) 20 gm PO TID PRN PRN Reason: CONSTIPATION Linezolid (Zyvox (Restricted To Id) -) 600 mg PO BID [facility] Last Admin: 03/06/19 11:34 Dose: 600 mg Magnesium Hydroxide (Milk Of Magnesia -) 30 ml PO DAILY PRN PRN Reason: CONSTIPATION Last Admin: 02/13/19 09:41 Dose: 30 ml Methyl Salicylate (Osmar-Moreno -) 1 applic TP Q6H PRN PRN Reason: BACK PAIN Multivitamins/Minerals/Vitamin C (Tab-A-Vit -) 1 tab PO DAILY [facility] Last Admin: 03/06/19 11:34 Dose: 1 tab Pantoprazole Sodium (Protonix -) 40 mg PO DAILY [facility] Last Admin: 03/06/19 11:33 Dose: 40 mg Povidone Iodine (Betadine 10% Solution -) 1 applic TP DAILY [facility] Last Admin: 03/06/19 11:34 Dose: 1 applic Senna (Senna -) 2 tab PO HS [facility] Last Admin: 03/05/19 21:23 Dose: Not Given Simethicone (Mylicon -) 80 mg PO Q4H PRN PRN Reason: GAS Last Admin: 03/05/19 21:25 Dose: 80 mg - Objective Vital Signs: Vital Signs Temperature 98.4 F 03/06/19 09:18 Pulse Rate 100 H 03/06/19 09:18 Respiratory Rate 20 03/06/19 09:18 Blood Pressure 105/65 03/06/19 09:18 O2 Sat by Pulse Oximetry (%) 100 03/05/19 21:00 Constitutional: Yes: No Distress Eyes: Yes: Conjunctiva Clear Cardiovascular: Yes: Regular Rate and Rhythm, S1, S2 Respiratory: Yes: CTA Bilaterally Gastrointestinal: Yes: Normal Bowel Sounds, Soft, Other (ABDOMEN DISTENDED). No : Tenderness Integumentary: Yes: Other (+ ERYTHEMA L GROIN/ LOWER ABDOMEN EXTENDS JUST BEYOND TRACED OUT MARGINS. LESS INTENSELY RED) Labs: CBC, BMP 03/06/19 10:20 03/05/19 07:55 INR, PTT INR 1.07 (0.83-1.09) 02/09/19 00:05 Assessment/Plan CELLULITIS L GROIN/FLANK RECURRENT CHRONIC L PSOAS COLLECTION/ FISTULA PARAPLEGIA S/P L PCN NEUROGENIC BLADDER/ INDWELLING PINZON CONTINUE ZYVOX COLLECTION DRAINAGE PER /SURG/IR IF WORSENING CELLULITIS/ LEUKOCYTOSIS WILL NEED IV ACCESS FOR ABX
[2019-03-06] MEDS: ACETAMINOPHEN 325 MG TABLET (FP) PO PRN (18:45)
[2019-03-06] MEDS: SENNOSIDES 8.6MG TABLET (FP) PO SCH (21:52)
[2019-03-06] MEDS: SIMETHICONE 80 MG TAB.CHEW (FP) PO PRN (21:52)
[2019-03-07] MEDS: ACETAMINOPHEN 325 MG TABLET (FP) PO PRN ×2 (02:58→22:47)
--- NOTE | 2019-03-07 08:03 | PN ---
Progress Note, Physician Chief Complaint: PATIENT SEEN THIS AM AWAKE ALERT GOING TO O.R. TODAY WITH UROLOGY FOR INTERNALIZATION OF NEPHROSTOMY TUBE AND REPAIR. - Current Medication List Current Medications: Active Medications Acetaminophen (Tylenol -) 650 mg PO Q6H PRN PRN Reason: PAIN LEVEL 1-5 Last Admin: 03/07/19 02:58 Dose: 325 mg Docusate Sodium (Colace -) 100 mg PO BID [facility] Last Admin: 03/06/19 21:52 Dose: Not Given Emollient Ointment (Aquaphor -) 1 applic TP DAILY [facility] Last Admin: 03/06/19 11:33 Dose: 1 applic Lactulose (Cephulac (Oral Use)) 20 gm PO TID PRN PRN Reason: CONSTIPATION Linezolid (Zyvox (Restricted To Id) -) 600 mg PO BID [facility] Last Admin: 03/06/19 21:52 Dose: 600 mg Magnesium Hydroxide (Milk Of Magnesia -) 30 ml PO DAILY PRN PRN Reason: CONSTIPATION Last Admin: 02/13/19 09:41 Dose: 30 ml Methyl Salicylate (Osmar-Moreno -) 1 applic TP Q6H PRN PRN Reason: BACK PAIN Multivitamins/Minerals/Vitamin C (Tab-A-Vit -) 1 tab PO DAILY [facility] Last Admin: 03/06/19 11:34 Dose: 1 tab Pantoprazole Sodium (Protonix -) 40 mg PO DAILY [facility] Last Admin: 03/06/19 11:33 Dose: 40 mg Povidone Iodine (Betadine 10% Solution -) 1 applic TP DAILY [facility] Last Admin: 03/06/19 11:34 Dose: 1 applic Senna (Senna -) 2 tab PO HS [facility] Last Admin: 03/06/19 21:52 Dose: Not Given Simethicone (Mylicon -) 80 mg PO Q4H PRN PRN Reason: GAS Last Admin: 03/06/19 21:52 Dose: 80 mg - Objective Vital Signs: Vital Signs Temperature 97.8 F 03/07/19 06:00 Pulse Rate 82 03/07/19 06:00 Respiratory Rate 20 03/07/19 06:00 Blood Pressure 118/68 03/07/19 06:00 O2 Sat by Pulse Oximetry (%) 100 03/05/19 21:00 Constitutional: Yes: Mild Distress Cardiovascular: Yes: Regular Rate and Rhythm Respiratory: Yes: WNL Gastrointestinal: Yes: Distention, Other (HARD INDURATED LLQ WITH DRAIN) Genitourinary: Yes: Pelaez Present Musculoskeletal: Yes: Muscle Weakness Integumentary: Yes: Erythema, Pressure Ulcer Wound/Incision: Yes: Draining Neurological: Yes: Pre-Existing Deficit Labs: CBC, BMP 03/06/19 10:20 03/05/19 07:55 INR, PTT INR 1.07 (0.83-1.09) 02/09/19 00:05 Problem List - Problems (1) Chronic indwelling Pelaez catheter Code(s): Z92.89 - PERSONAL HISTORY OF OTHER MEDICAL TREATMENT (2) Constipated Code(s): K59.00 - CONSTIPATION, UNSPECIFIED Qualifiers: Constipation type: unspecified constipation type Qualified Code(s): K59.00 - Constipation, unspecified (3) Neurogenic bladder Code(s): N31.9 - NEUROMUSCULAR DYSFUNCTION OF BLADDER, UNSPECIFIED (4) UTI (urinary tract infection) Code(s): N39.0 - URINARY TRACT INFECTION, SITE NOT SPECIFIED Qualifiers: Urinary tract infection type: site unspecified Hematuria presence: with hematuria Qualified Code(s): N39.0 - Urinary tract infection, site not specified; R31.9 - Hematuria, unspecified (5) Acquired functional megacolon Code(s): K59.39 - OTHER MEGACOLON (6) Anemia Code(s): D64.9 - ANEMIA, UNSPECIFIED Qualifiers: Anemia type: iron deficiency Other causes of anemia: due to other specified chronic disease (7) COPD (chronic obstructive pulmonary disease) Code(s): J44.9 - CHRONIC OBSTRUCTIVE PULMONARY DISEASE, UNSPECIFIED Qualifiers: COPD type: unspecified COPD Qualified Code(s): J44.9 - Chronic obstructive pulmonary disease, unspecified (8) Decubitus ulcer Code(s): L89.90 - PRESSURE ULCER OF UNSPECIFIED SITE, UNSPECIFIED STAGE Qualifiers: Laterality: unspecified laterality (9) Paraplegia following spinal cord injury Code(s): G82.20 - PARAPLEGIA, UNSPECIFIED Assessment/Plan UROLOGY WORKUP IN PROGRESS MEDICALLY CLEARED TO O.R. FOR FISTULA/NEPJHROSTOMY INTERNALIZATION WILL NEED IV ACCESS FOR IV ABX [employer]GRAM[employer]. PAIN CONTROL DVT PROPHYLAXIS
--- NOTE | 2019-03-07 12:21 | PN ---
DATE OF ADMISSION: 02/09/2019 DATE OF DICTATION: 03/06/2019 HISTORY: Patient today presents with continuous abdominal distention and cellulitis in the left lower quadrant of the abdomen. A CT scan performed yesterday reveals collection at the iliopsoas muscle. His percutaneous tube is in proper place. Drainage is adequate after multiple irrigations. PHYSICAL EXAMINATION: General: He is awake and oriented. Vital Signs: His latest vital signs reveal a maximum temperature of 103, blood pressure 118/68, respirations are 20, pulse is 82 and regular. His white count is presently 12,000. Hemoglobin 9.5, hematocrit 30.5. BUN 37.4, creatinine 1.2. Random glucose is 100. The patient is ready to go home, but because of the recurrence of his iliopsoas abscess, he will need a percutaneous drain placed in and for long-term IV antibiotics he will need a central line placed in. Since multiple attempts at placement of an IV on the floor have been unsuccessful, we will ask interventional radiology to place a central line in on the floor under fluoroscopic or ultrasonic control. We will then make an appointment with patient at [facility] Department of Urology to undergo a left percutaneous nephrostomy and possible internalization of his left percutaneous tube. This could be done after the holidays. We will follow closely with you. TRU FITZGERALD M.D. [id number]
[2019-03-07] MEDS ORDERED: PT OWN MED DRAWER 7, Y5N ONE ×2 (16:11→20:48)
[2019-03-07] MEDS: DOCUSATE SODIUM 100 MG CAPSULE (FP) PO SCH ×2 (16:16→22:40)
[2019-03-07] MEDS: PANTOPRAZOLE 40 MG TABLET (FP) PO SCH (16:16)
[2019-03-07] MEDS: MULTIVITAMINS (DAILY MVI) TABLET (FP) PO SCH (16:16)
[2019-03-07] MEDS: LINEZOLID 600 MG TABLET (RESTRICTED TO ID) PO SCH ×2 (16:17→22:40)
[2019-03-07] MEDS: MINERAL OIL/PET HY-PHL TOPICAL OINTMENT 454 GM JAR TP SCH (16:18)
[2019-03-07] MEDS: POVIDONE-IODINE 10% SOLN 118 ML BOTTLE TP SCH (16:18)
[2019-03-07] MEDS: SENNOSIDES 8.6MG TABLET (FP) PO SCH (22:40)
--- NOTE | 2019-03-07 22:49 | PN ---
Progress Note (short form) - Note Progress Note: UROLOGY NOTE: Pt with left PCN functioning well. Pt refuses to go home until PCN is internalized or a left jj stent is placed. Attempted to schedule patient for this AM but was informed that due to holiday schedule, pt can go to O.R for elective procedure this at earliest. PLAN: Cystoscopy/left retrograde pyelogram/possible jj stent placement. If successful, will d/c left PCN.
--- NOTE | 2019-03-08 07:29 | PN ---
Progress Note, Physician Chief Complaint: AWAKE ALERT NO FEVERS OR CHILLS SCHEDULED FOR SURGERY THURSDAY INTERNAL FIXATION OF NEPHROSTOMY/FISTULA - Current Medication List Current Medications: Active Medications Acetaminophen (Tylenol -) 650 mg PO Q6H PRN PRN Reason: PAIN LEVEL 1-5 Last Admin: 03/07/19 22:47 Dose: 325 mg Docusate Sodium (Colace -) 100 mg PO BID [facility] Last Admin: 03/07/19 22:40 Dose: 100 mg Emollient Ointment (Aquaphor -) 1 applic TP DAILY [facility] Last Admin: 03/07/19 16:18 Dose: 1 applic Lactulose (Cephulac (Oral Use)) 20 gm PO TID PRN PRN Reason: CONSTIPATION Linezolid (Zyvox (Restricted To Id) -) 600 mg PO BID [facility] Last Admin: 03/07/19 22:40 Dose: 600 mg Magnesium Hydroxide (Milk Of Magnesia -) 30 ml PO DAILY PRN PRN Reason: CONSTIPATION Last Admin: 02/13/19 09:41 Dose: 30 ml Methyl Salicylate (Osmar-Moreno -) 1 applic TP Q6H PRN PRN Reason: BACK PAIN Multivitamins/Minerals/Vitamin C (Tab-A-Vit -) 1 tab PO DAILY [facility] Last Admin: 03/07/19 16:16 Dose: 1 tab Pantoprazole Sodium (Protonix -) 40 mg PO DAILY [facility] Last Admin: 03/07/19 16:16 Dose: 40 mg Povidone Iodine (Betadine 10% Solution -) 1 applic TP DAILY [facility] Last Admin: 03/07/19 16:18 Dose: 1 applic Senna (Senna -) 2 tab PO HS [facility] Last Admin: 03/07/19 22:40 Dose: 2 tab Simethicone (Mylicon -) 80 mg PO Q4H PRN PRN Reason: GAS Last Admin: 03/06/19 21:52 Dose: 80 mg - Objective Vital Signs: Vital Signs Temperature 98.3 F 03/07/19 22:00 Pulse Rate 98 H 03/07/19 22:00 Respiratory Rate 20 03/07/19 22:00 Blood Pressure 118/70 03/07/19 22:00 O2 Sat by Pulse Oximetry (%) 94 L 03/07/19 15:07 Constitutional: Yes: Mild Distress Cardiovascular: Yes: Regular Rate and Rhythm Respiratory: Yes: Diminished Gastrointestinal: Yes: Distention, Other (HARD AND INDURATED LLQ) Genitourinary: Yes: Pinzon Present Wound/Incision: Yes: Draining (ABD DRAIN AND PN) Labs: CBC, BMP 03/06/19 10:20 03/05/19 07:55 INR, PTT INR 1.07 (0.83-1.09) 02/09/19 00:05 Problem List - Problems (1) Chronic indwelling Pinzon catheter Code(s): Z92.89 - PERSONAL HISTORY OF OTHER MEDICAL TREATMENT (2) Constipated Code(s): K59.00 - CONSTIPATION, UNSPECIFIED Qualifiers: Constipation type: unspecified constipation type Qualified Code(s): K59.00 - Constipation, unspecified (3) Neurogenic bladder Code(s): N31.9 - NEUROMUSCULAR DYSFUNCTION OF BLADDER, UNSPECIFIED (4) UTI (urinary tract infection) Code(s): N39.0 - URINARY TRACT INFECTION, SITE NOT SPECIFIED Qualifiers: Urinary tract infection type: site unspecified Hematuria presence: with hematuria Qualified Code(s): N39.0 - Urinary tract infection, site not specified; R31.9 - Hematuria, unspecified (5) Acquired functional megacolon Code(s): K59.39 - OTHER MEGACOLON (6) Anemia Code(s): D64.9 - ANEMIA, UNSPECIFIED Qualifiers: Anemia type: iron deficiency Other causes of anemia: due to other specified chronic disease (7) COPD (chronic obstructive pulmonary disease) Code(s): J44.9 - CHRONIC OBSTRUCTIVE PULMONARY DISEASE, UNSPECIFIED Qualifiers: COPD type: unspecified COPD Qualified Code(s): J44.9 - Chronic obstructive pulmonary disease, unspecified (8) Decubitus ulcer Code(s): L89.90 - PRESSURE ULCER OF UNSPECIFIED SITE, UNSPECIFIED STAGE Qualifiers: Laterality: unspecified laterality (9) Paraplegia following spinal cord injury Code(s): G82.20 - PARAPLEGIA, UNSPECIFIED Assessment/Plan SURGERY Thursday WITH DR TAMIKO REYES NOW WITH IV ACCESS WILL START IV ABX ID F/U APPRECIATED. DVT PROPHYLAXIS RESTART DIET PINZON /PERC NEPHROSTOMY/YA DRAIN ALL FUNCTIONING
[2019-03-08] MEDS ORDERED: PT OWN MED DRAWER 7, Y5N ONE ×2 (08:47→22:15)
[2019-03-08 09:21] LABS: ALBUMIN 2.6 g/dl (3.4-5.0); BILIRUBIN,TOTAL 0.3 mg/dL (0.2-1); BLOOD UREA NITROGEN 33.9 mg/dL (7-18); CREATININE 0.9 mg/dL (0.55-1.3); POTASSIUM 4.5 mmol/L (3.5-5.1); TOT PROT 7.4 g/dl (6.4-8.2)
[2019-03-08] MEDS: MULTIVITAMINS (DAILY MVI) TABLET (FP) PO SCH (09:52)
[2019-03-08] MEDS: PANTOPRAZOLE 40 MG TABLET (FP) PO SCH (09:52)
[2019-03-08] MEDS: DOCUSATE SODIUM 100 MG CAPSULE (FP) PO SCH ×2 (09:52→22:17)
[2019-03-08] MEDS: LINEZOLID 600 MG TABLET (RESTRICTED TO ID) PO SCH ×2 (09:53→22:17)
[2019-03-08] MEDS: MINERAL OIL/PET HY-PHL TOPICAL OINTMENT 454 GM JAR TP SCH (09:53)
[2019-03-08] MEDS: POVIDONE-IODINE 10% SOLN 118 ML BOTTLE TP SCH (09:54)
[2019-03-08] MEDS: SENNOSIDES 8.6MG TABLET (FP) PO SCH (22:17)
[2019-03-08] MEDS: SIMETHICONE 80 MG TAB.CHEW (FP) PO PRN (22:17)
--- NOTE | 2019-03-09 00:30 | PN ---
Progress Note (short form) - Note Progress Note: Called by nurse patient is requesting nephrostomy tube and YA to be flushed. Chart was reviewed. Patient was seen at bedside. Explained to patient that his nephrostomy tube and YA drain are functioning properly. He is not having any fever. Explained to him that I do not see orders by Urology -Dr. Oro or by PCP Dr. Wheeler and will avoid flushing tube and drain to prevent dislodgement of tube and drain and to prevent infection. Explained to him primary PCP will see him in the morning and will address this. Patient appeared frustrated with me. Visit type - Emergency Visit Emergency Visit: No - New Patient This patient is new to me today: Yes Date on this admission: 03/09/19 - Critical Care Critical Care patient: No
[2019-03-09] MEDS: MINERAL OIL/PET HY-PHL TOPICAL OINTMENT 454 GM JAR TP SCH (09:21)
[2019-03-09] MEDS: LINEZOLID 600 MG TABLET (RESTRICTED TO ID) PO SCH ×2 (09:21→22:00)
[2019-03-09] MEDS: MULTIVITAMINS (DAILY MVI) TABLET (FP) PO SCH (09:21)
[2019-03-09] MEDS: PANTOPRAZOLE 40 MG TABLET (FP) PO SCH (09:21)
[2019-03-09] MEDS: DOCUSATE SODIUM 100 MG CAPSULE (FP) PO SCH ×2 (09:21→22:01)
[2019-03-09] MEDS: POVIDONE-IODINE 10% SOLN 118 ML BOTTLE TP SCH (09:23)
--- NOTE | 2019-03-09 12:45 | PN ---
Progress Note, Physician Chief Complaint: Abdominal Distention Paraplegia Neurogenic Bladder History of Present Illness: Feels beeter LLQ abd wall cellulitis worse today Started on Zyvox Leukocytosis improved Going for internal fixation of nephrostomy/fistula - Current Medication List Current Medications: Active Medications Acetaminophen (Tylenol -) 650 mg PO Q6H PRN PRN Reason: PAIN LEVEL 1-5 Last Admin: 03/07/19 22:47 Dose: 325 mg Docusate Sodium (Colace -) 100 mg PO BID [facility] Last Admin: 03/09/19 09:21 Dose: 100 mg Emollient Ointment (Aquaphor -) 1 applic TP DAILY [facility] Last Admin: 03/09/19 09:21 Dose: Not Given Lactulose (Cephulac (Oral Use)) 20 gm PO TID PRN PRN Reason: CONSTIPATION Linezolid (Zyvox (Restricted To Id) -) 600 mg PO BID [facility] Last Admin: 03/09/19 09:21 Dose: 600 mg Magnesium Hydroxide (Milk Of Magnesia -) 30 ml PO DAILY PRN PRN Reason: CONSTIPATION Last Admin: 02/13/19 09:41 Dose: 30 ml Methyl Salicylate (Osmar-Moreno -) 1 applic TP Q6H PRN PRN Reason: BACK PAIN Multivitamins/Minerals/Vitamin C (Tab-A-Vit -) 1 tab PO DAILY [facility] Last Admin: 03/09/19 09:21 Dose: 1 tab Pantoprazole Sodium (Protonix -) 40 mg PO DAILY [facility] Last Admin: 03/09/19 09:21 Dose: 40 mg Povidone Iodine (Betadine 10% Solution -) 1 applic TP DAILY [facility] Last Admin: 03/09/19 09:23 Dose: 1 applic Senna (Senna -) 2 tab PO HS [facility] Last Admin: 03/08/19 22:17 Dose: Not Given Simethicone (Mylicon -) 80 mg PO Q4H PRN PRN Reason: GAS Last Admin: 03/08/19 22:17 Dose: 80 mg - Objective Vital Signs: Vital Signs Temperature 98.1 F 03/08/19 17:28 Pulse Rate 86 03/08/19 22:00 Respiratory Rate 20 03/08/19 22:00 Blood Pressure 113/56 L 03/08/19 22:00 O2 Sat by Pulse Oximetry (%) 94 L 03/08/19 09:00 Constitutional: Yes: Well Nourished, No Distress, Calm Cardiovascular: Yes: Regular Rate and Rhythm Respiratory: Yes: Regular Gastrointestinal: Yes: Normal Bowel Sounds, Soft, Abdomen, Obese Genitourinary: Yes: Pelaez Present Musculoskeletal: Yes: Other (paraplegia) Extremities: Yes: WNL Edema: No Peripheral Pulses WNL: Yes Neurological: Yes: Alert, Oriented Psychiatric: Yes: Alert, Oriented Labs: CBC, BMP 03/08/19 06:35 03/08/19 06:35 INR, PTT INR 1.07 (0.83-1.09) 02/09/19 00:05 Assessment/Plan - Problems (1) Chronic indwelling Pelaez catheter Assessment/Plan: -2/2 neurogenic bladder -Urology on board -FC changed twice this admission- still leaking Code(s): Z92.89 - PERSONAL HISTORY OF OTHER MEDICAL TREATMENT (2) Constipated Assessment/Plan: -GI consult -Senna, Colace -Soap Lesley enemas Code(s): K59.00 - CONSTIPATION, UNSPECIFIED Qualifiers: Constipation type: unspecified constipation type Qualified Code(s): K59.00 - Constipation, unspecified (3) UTI (urinary tract infection) Assessment/Plan: -ID consult -Chronic -no leukocytosis -afebrile Code(s): N39.0 - URINARY TRACT INFECTION, SITE NOT SPECIFIED Qualifiers: Urinary tract infection type: site unspecified Hematuria presence: with hematuria Qualified Code(s): N39.0 - Urinary tract infection, site not specified; R31.9 - Hematuria, unspecified (4) COPD (chronic obstructive pulmonary disease) Assessment/Plan: -Bronchodilators -Keep SpO2 >90% -O2 via NC -Pulm on board Code(s): J44.9 - CHRONIC OBSTRUCTIVE PULMONARY DISEASE, UNSPECIFIED Qualifiers: COPD type: unspecified COPD Qualified Code(s): J44.9 - Chronic obstructive pulmonary disease, unspecified (5) Neurogenic bladder Assessment/Plan: -Urology on board Code(s): N31.9 - NEUROMUSCULAR DYSFUNCTION OF BLADDER, UNSPECIFIED (6) Weakness Assessment/Plan: -Fall risk precautions -PT Code(s): R53.1 - WEAKNESS (7) JOSE CRUZ (acute kidney injury) Assessment/Plan: -monitor renal function -Renal consult Code(s): N17.9 - ACUTE KIDNEY FAILURE, UNSPECIFIED (8) MDRO (multiple drug resistant organisms) resistance Assessment/Plan: -contact precaution Code(s): Z16.35 - RESISTANCE TO MULTIPLE ANTIMICROBIAL DRUGS (9) Cellulitis of left abdominal wall Assessment/Plan: -ID on board -leukocytosis improved -afebrile -started on Zyvox -Abd/Pelvic CT scan-02/24/19: shows increased size of a left iliopsoas fluid collection noted which is also now extends into left anterior pelvic wall -IR consult for percutaneous drainage of retroperitoneal abscess -BC neg -Repeat CT abd/pelvis as the cellulitis is much worse -Going for internal fixation of nephrostomy/fistula Code(s): L03.311 - CELLULITIS OF ABDOMINAL WALL Assessment/Plan problem list dvt ppx
[2019-03-09 14:50] LABS: BASO % 0.6 % (0-2.0); EOS % 4.5 % (0-4.5); HEMATOCRIT 28.4 % (35.4-49); HEMOGLOBIN 8.9 GM/dL (11.7-16.9); LYMPH % 25.1 % (8-40); MCH 25.8 pg (25.7-33.7); MCHC 31.3 g/dl (32.0-35.9); MEAN CELL VOLUME 82.3 fl (80-96); MEAN PLT VOLUME 8.5 fl (7.5-11.1); MONO % 12.1 % (3.8-10.2); NEUT % 57.7 % (42.8-82.8); PLATELET COUNT 205 K/MM3 (134-434); RBC 3.45 M/mm3 (4.00-5.60); RDW 18.6 % (11.9-15.9); WHITE BLOOD COUNT 4.8 K/mm3 (4.0-10.0)
[2019-03-09] MEDS: ACETAMINOPHEN 325 MG TABLET (FP) PO PRN (21:59)
[2019-03-09] MEDS: SIMETHICONE 80 MG TAB.CHEW (FP) PO PRN (22:00)
[2019-03-09] MEDS: SENNOSIDES 8.6MG TABLET (FP) PO SCH (22:01)
--- NOTE | 2019-03-10 09:45 | PN ---
Progress Note, Physician Chief Complaint: SCHEDULED FOR SURGERY TODAY 3PM NO EVENTS OVER NIGHT - Current Medication List Current Medications: Active Medications Acetaminophen (Tylenol -) 650 mg PO Q6H PRN PRN Reason: PAIN LEVEL 1-5 Last Admin: 03/09/19 21:59 Dose: 650 mg Docusate Sodium (Colace -) 100 mg PO BID [facility] Last Admin: 03/09/19 22:01 Dose: Not Given Emollient Ointment (Aquaphor -) 1 applic TP DAILY [facility] Last Admin: 03/09/19 09:21 Dose: Not Given Lactulose (Cephulac (Oral Use)) 20 gm PO TID PRN PRN Reason: CONSTIPATION Linezolid (Zyvox (Restricted To Id) -) 600 mg PO BID [facility] Last Admin: 03/09/19 22:00 Dose: 600 mg Magnesium Hydroxide (Milk Of Magnesia -) 30 ml PO DAILY PRN PRN Reason: CONSTIPATION Last Admin: 02/13/19 09:41 Dose: 30 ml Methyl Salicylate (Osmar-Moreno -) 1 applic TP Q6H PRN PRN Reason: BACK PAIN Multivitamins/Minerals/Vitamin C (Tab-A-Vit -) 1 tab PO DAILY [facility] Last Admin: 03/09/19 09:21 Dose: 1 tab Pantoprazole Sodium (Protonix -) 40 mg PO DAILY [facility] Last Admin: 03/09/19 09:21 Dose: 40 mg Povidone Iodine (Betadine 10% Solution -) 1 applic TP DAILY [facility] Last Admin: 03/09/19 09:23 Dose: 1 applic Senna (Senna -) 2 tab PO HS [facility] Last Admin: 03/09/19 22:01 Dose: Not Given Simethicone (Mylicon -) 80 mg PO Q4H PRN PRN Reason: GAS Last Admin: 03/09/19 22:00 Dose: 80 mg - Objective Vital Signs: Vital Signs Temperature 97.6 F 03/10/19 06:00 Pulse Rate 76 03/10/19 06:00 Respiratory Rate 20 03/10/19 06:00 Blood Pressure 109/67 03/10/19 06:00 O2 Sat by Pulse Oximetry (%) 94 L 03/08/19 09:00 Constitutional: Yes: Mild Distress Cardiovascular: Yes: Regular Rate and Rhythm Respiratory: Yes: WNL Gastrointestinal: Yes: Distention, Tenderness Genitourinary: Yes: Pinzon Present Neurological: Yes: Pre-Existing Deficit Labs: CBC, BMP 03/09/19 14:25 03/08/19 06:35 INR, PTT INR 1.07 (0.83-1.09) 02/09/19 00:05 Problem List - Problems (1) Chronic indwelling Pinzon catheter Code(s): Z92.89 - PERSONAL HISTORY OF OTHER MEDICAL TREATMENT (2) Constipated Code(s): K59.00 - CONSTIPATION, UNSPECIFIED Qualifiers: Constipation type: unspecified constipation type Qualified Code(s): K59.00 - Constipation, unspecified (3) Neurogenic bladder Code(s): N31.9 - NEUROMUSCULAR DYSFUNCTION OF BLADDER, UNSPECIFIED (4) UTI (urinary tract infection) Code(s): N39.0 - URINARY TRACT INFECTION, SITE NOT SPECIFIED Qualifiers: Urinary tract infection type: site unspecified Hematuria presence: with hematuria Qualified Code(s): N39.0 - Urinary tract infection, site not specified; R31.9 - Hematuria, unspecified (5) Acquired functional megacolon Code(s): K59.39 - OTHER MEGACOLON (6) Anemia Code(s): D64.9 - ANEMIA, UNSPECIFIED Qualifiers: Anemia type: iron deficiency Other causes of anemia: due to other specified chronic disease (7) COPD (chronic obstructive pulmonary disease) Code(s): J44.9 - CHRONIC OBSTRUCTIVE PULMONARY DISEASE, UNSPECIFIED Qualifiers: COPD type: unspecified COPD Qualified Code(s): J44.9 - Chronic obstructive pulmonary disease, unspecified (8) Decubitus ulcer Code(s): L89.90 - PRESSURE ULCER OF UNSPECIFIED SITE, UNSPECIFIED STAGE Qualifiers: Laterality: unspecified laterality (9) Paraplegia following spinal cord injury Code(s): G82.20 - PARAPLEGIA, UNSPECIFIED Assessment/Plan SURGERY TODAY 3PM WITH DR TAMIKO FITZGERALD MEDICALLY CLEARED FOR SURGERY INTERNAL FIXATION OF NEPHROSTOMY/FISTULA REPAIR. NOW WITH IV ACCESS WILL START IV ABX PER ID ID F/U APPRECIATED. DVT PROPHYLAXIS RESTART DIET AFTER SURGERY PINZON /PERC NEPHROSTOMY/YA DRAIN ALL FUNCTIONING
[2019-03-10 10:46] LABS: BASO % 0.7 % (0-2.0); EOS % 4.5 % (0-4.5); HEMATOCRIT 27.3 % (35.4-49); HEMOGLOBIN 8.6 GM/dL (11.7-16.9); MCH 25.9 pg (25.7-33.7); MCHC 31.6 g/dl (32.0-35.9); MEAN CELL VOLUME 81.8 fl (80-96); MEAN PLT VOLUME 8.5 fl (7.5-11.1); NEUT % 65.8 % (42.8-82.8); PLATELET COUNT 195 K/MM3 (134-434); RBC 3.34 M/mm3 (4.00-5.60); RDW 18.6 % (11.9-15.9); WHITE BLOOD COUNT 4.8 K/mm3 (4.0-10.0)
[2019-03-10] MEDS: DOCUSATE SODIUM 100 MG CAPSULE (FP) PO SCH ×2 (10:46→21:58)
[2019-03-10] MEDS: MULTIVITAMINS (DAILY MVI) TABLET (FP) PO SCH (10:46)
[2019-03-10] MEDS: PANTOPRAZOLE 40 MG TABLET (FP) PO SCH (10:46)
[2019-03-10] MEDS: MINERAL OIL/PET HY-PHL TOPICAL OINTMENT 454 GM JAR TP SCH (10:46)
[2019-03-10] MEDS ORDERED: PT OWN MED DRAWER 7, Y5N ONE ×2 (10:59→22:59)
[2019-03-10] MEDS: LINEZOLID 600 MG TABLET (RESTRICTED TO ID) PO SCH (11:05)
[2019-03-10] MEDS: POVIDONE-IODINE 10% SOLN 118 ML BOTTLE TP SCH (11:06)
[2019-03-10] MEDS ORDERED: ISOSULFAN BLUE 10 MG/ML VIAL SQ ONE (15:30)
[2019-03-10] MEDS ORDERED: ceFAZolin SODIUM 1 GM VIAL IVPB ONE (15:45)
[2019-03-10] MEDS ORDERED: ONDANSETRON 4 MG/2 ML VIAL IVPUSH PRN (15:47)
[2019-03-10] MEDS ORDERED: PROMETHAZINE HCL 25 MG/1 ML VIAL IVPUSH PRN (15:47)
[2019-03-10] MEDS ORDERED: oxyCODONE HCL 5 MG TABLET PO PRN (15:47)
[2019-03-10] MEDS ORDERED: ceFAZolin SODIUM 1 GM VIAL ONE (15:49)
[2019-03-10] MEDS ORDERED: DEXAMETHASONE SOD PHOSPHATE 4 MG/1 ML VIAL ONE (15:49)
[2019-03-10] MEDS ORDERED: SODIUM CHLORIDE 0.9% P/F 10 ML VIAL IJ ONE (15:49)
[2019-03-10] MEDS ORDERED: LIDOCAINE HCL/PF 2% SDV 5ML VIAL ONE (15:49)
--- NOTE | 2019-03-10 16:41 | OP ---
Operative Note - Note: Operative Date: 03/10/19 Pre-Operative Diagnosis: lt. hydro, lt. ureteral stones, lt. renal pelvic stones , lt. pcn tube,lt. iliopsoas space pigtail drain. Operation: cysto, attempted lt. retro, lt. antigrade nephrostogram, stone basketting Findings: impassable lt. ureteral stones, lt. pcn ,bladder stones Post-Operative Diagnosis: Same as Pre-op Surgeon: Moisés Oro Anesthesia: General Specimens Removed: urine, bladder stone Estimated Blood Loss (mls): 0 Drains & Tubes with Location: 18f 20cc hlul Drains, Volume Out (mls): 0 Blood Volume Replaced (mls): 0 Fluid Volume Replaced (mls): 0 Operative Report Dictated: Yes
[2019-03-10] MEDS ORDERED: PIPERACILLIN/TAZOBACTAM 3.375 GM VIAL IVPB ONE (17:50)
[2019-03-10] MEDS ORDERED: DEXTROSE 5%-WATER - 50 ML IVPB ONE (17:51)
[2019-03-10] MEDS: PIPERACILLIN/TAZOB 3.375 GM 3.375 GM in DEXTROSE 5%-WATER - 50 ML IVPB SCH (18:06)
[2019-03-10] MEDS: SENNOSIDES 8.6MG TABLET (FP) PO SCH (21:59)
[2019-03-10] MEDS: SIMETHICONE 80 MG TAB.CHEW (FP) PO PRN (22:11)
[2019-03-10] MEDS: ACETAMINOPHEN 325 MG TABLET (FP) PO PRN (22:11)
[2019-03-11] MEDS: PIPERACILLIN/TAZOB 3.375 GM 3.375 GM in DEXTROSE 5%-WATER - 50 ML IVPB SCH ×2 (02:02→11:38)
[2019-03-11] MEDS ORDERED: PIPERACILLIN/TAZOBACTAM 3.375 GM VIAL IVPB ONE ×2 (03:25→11:12)
[2019-03-11] MEDS ORDERED: DEXTROSE 5%-WATER - 50 ML IVPB ONE ×2 (03:26→11:12)
--- NOTE | 2019-03-11 10:50 | PN ---
Progress Note, Physician Chief Complaint: S/P CYSTOSCOPY YESTERDAY UNSUCCESSFUL LARGE STONE OBSTRUCTION PT IN BED C/O ITCHING FROM ZOSYN IV - Current Medication List Current Medications: Active Medications Acetaminophen (Tylenol -) 650 mg PO Q6H PRN PRN Reason: PAIN LEVEL 1-5 Last Admin: 03/10/19 22:11 Dose: 325 mg Diphenhydramine HCl (Benadryl Injection -) 25 mg IVPB ONCE ONE Stop: 03/11/19 10:48 Docusate Sodium (Colace -) 100 mg PO BID [facility] Last Admin: 03/10/19 21:58 Dose: Not Given Emollient Ointment (Aquaphor -) 1 applic TP DAILY [facility] Last Admin: 03/10/19 10:46 Dose: Not Given Fentanyl (Sublimaze Injection -) 50 mcg IVPUSH [id number] PRN PRN Reason: PAIN-PACU ORDER X 4 DOSES ONLY Piperacillin Sod/Tazobactam (Sod 3.375 gm/ Dextrose) 50 mls @ 100 mls/hr IVPB Q8H-IV [facility]; Protocol Last Admin: 03/11/19 02:02 Dose: 100 mls/hr Lactulose (Cephulac (Oral Use)) 20 gm PO TID PRN PRN Reason: CONSTIPATION Magnesium Hydroxide (Milk Of Magnesia -) 30 ml PO DAILY PRN PRN Reason: CONSTIPATION Last Admin: 02/13/19 09:41 Dose: 30 ml Methyl Salicylate (Osmar-Moreno -) 1 applic TP Q6H PRN PRN Reason: BACK PAIN Multivitamins/Minerals/Vitamin C (Tab-A-Vit -) 1 tab PO DAILY [facility] Last Admin: 03/10/19 10:46 Dose: Not Given Ondansetron HCl (Zofran Injection) 4 mg IVPUSH Q6H PRN PRN Reason: NAUSEA AND/OR VOMITING Oxycodone HCl (Roxicodone -) 10 mg PO Q4H PRN PRN Reason: PAIN LEVEL 6-10 Stop: 03/11/19 15:46 Pantoprazole Sodium (Protonix -) 40 mg PO DAILY [facility] Last Admin: 03/10/19 10:46 Dose: Not Given Povidone Iodine (Betadine 10% Solution -) 1 applic TP DAILY [facility] Last Admin: 03/10/19 11:06 Dose: 1 applic Promethazine HCl (Phenergan Injection -) 12.5 mg IVPUSH Q6H PRN PRN Reason: NAUSEA-FOR RESCUE AFTER 15 MIN Senna (Senna -) 2 tab PO HS [facility] Last Admin: 03/10/19 21:59 Dose: Not Given Simethicone (Mylicon -) 80 mg PO Q4H PRN PRN Reason: GAS Last Admin: 03/10/19 22:11 Dose: 80 mg - Objective Vital Signs: Vital Signs Temperature 97.6 F 03/10/19 17:36 Pulse Rate 67 03/10/19 17:36 Respiratory Rate 20 03/10/19 17:36 Blood Pressure 139/78 03/10/19 17:36 O2 Sat by Pulse Oximetry (%) 98 03/10/19 17:15 Constitutional: Yes: Mild Distress Cardiovascular: Yes: Regular Rate and Rhythm Respiratory: Yes: Diminished Gastrointestinal: Yes: Distention, Other (HARD ABDOMEN) Genitourinary: Yes: Pinzon Present Musculoskeletal: Yes: Muscle Weakness Integumentary: Yes: Rash Wound/Incision: Yes: Dressing Dry and Intact Neurological: Yes: Loss of Sensation, Paresthesia, Pre-Existing Deficit ...Motor Strength: LLE, RLE Psychiatric: Yes: Other Labs: CBC, BMP 03/10/19 09:20 03/08/19 06:35 INR, PTT INR 1.07 (0.83-1.09) 02/09/19 00:05 Problem List - Problems (1) Chronic indwelling Pinzon catheter Code(s): Z92.89 - PERSONAL HISTORY OF OTHER MEDICAL TREATMENT (2) Constipated Code(s): K59.00 - CONSTIPATION, UNSPECIFIED Qualifiers: Constipation type: unspecified constipation type Qualified Code(s): K59.00 - Constipation, unspecified (3) Neurogenic bladder Code(s): N31.9 - NEUROMUSCULAR DYSFUNCTION OF BLADDER, UNSPECIFIED (4) UTI (urinary tract infection) Code(s): N39.0 - URINARY TRACT INFECTION, SITE NOT SPECIFIED Qualifiers: Urinary tract infection type: site unspecified Hematuria presence: with hematuria Qualified Code(s): N39.0 - Urinary tract infection, site not specified; R31.9 - Hematuria, unspecified (5) Acquired functional megacolon Code(s): K59.39 - OTHER MEGACOLON (6) Anemia Code(s): D64.9 - ANEMIA, UNSPECIFIED Qualifiers: Anemia type: iron deficiency Other causes of anemia: due to other specified chronic disease (7) COPD (chronic obstructive pulmonary disease) Code(s): J44.9 - CHRONIC OBSTRUCTIVE PULMONARY DISEASE, UNSPECIFIED Qualifiers: COPD type: unspecified COPD Qualified Code(s): J44.9 - Chronic obstructive pulmonary disease, unspecified (8) Decubitus ulcer Code(s): L89.90 - PRESSURE ULCER OF UNSPECIFIED SITE, UNSPECIFIED STAGE Qualifiers: Laterality: unspecified laterality (9) Paraplegia following spinal cord injury Code(s): G82.20 - PARAPLEGIA, UNSPECIFIED Assessment/Plan PER NURSING STAFF A TRANSFER TO [facility] HAS BEEN STARTED BY DR TAMIKO FITZGERALD SPECIALIST. CONTINUE IV ABX PER ID BENADRUL IV X 1 NOW MAINTAIN PINZON DRAINS CONTINUE TO DRAIN ADVANCED DIRECTIVE REVIEWED AND FULL CODE MAINTAINED PER PATIENT'S REQUEST
--- NOTE | 2019-03-11 11:15 | PN ---
Progress Note (short form) - Note Progress Note: 54M with large obstructing stone, s/p cystoscopy and aborted attempt to place ureteral stent. Received GA. Pending transfer to tertiary care. Vital Signs Period Temp Pulse Resp BP Sys/Vu Pulse Ox Last 24 Hr 97.5 F-97.8 F 67-72 13-20 109-139/68-78 97-99 CBC, BMP 03/10/19 09:20 03/08/19 06:35 Intake & Output 03/10/19 03/11/19 03/11/19 23:59 07:59 15:59 Intake Total 675 400 Output Total 230 20 Balance 445 380 - No anesthetic complications
[2019-03-11] MEDS: SIMETHICONE 80 MG TAB.CHEW (FP) PO PRN ×2 (11:37→21:29)
[2019-03-11] MEDS: MULTIVITAMINS (DAILY MVI) TABLET (FP) PO SCH (11:40)
[2019-03-11] MEDS: POVIDONE-IODINE 10% SOLN 118 ML BOTTLE TP SCH (11:40)
[2019-03-11] MEDS: PANTOPRAZOLE 40 MG TABLET (FP) PO SCH (11:40)
[2019-03-11] MEDS: DOCUSATE SODIUM 100 MG CAPSULE (FP) PO SCH ×2 (11:40→21:25)
[2019-03-11] MEDS: MINERAL OIL/PET HY-PHL TOPICAL OINTMENT 454 GM JAR TP SCH (11:41)
[2019-03-11 13:07] LABS: BASO % 0.5 % (0-2.0); EOS % 1.4 % (0-4.5); HEMATOCRIT 27.5 % (35.4-49); HEMOGLOBIN 8.6 GM/dL (11.7-16.9); LYMPH % 11.8 % (8-40); MCH 25.7 pg (25.7-33.7); MCHC 31.3 g/dl (32.0-35.9); MEAN PLT VOLUME 8.2 fl (7.5-11.1); MONO % 8.9 % (3.8-10.2); NEUT % 77.4 % (42.8-82.8); PLATELET COUNT 181 K/MM3 (134-434); RBC 3.35 M/mm3 (4.00-5.60); RDW 18.7 % (11.9-15.9)
[2019-03-11 14:06] LABS: ALBUMIN 2.4 g/dl (3.4-5.0); BILIRUBIN,TOTAL 0.1 mg/dL (0.2-1); BLOOD UREA NITROGEN 23.6 mg/dL (7-18); CALCIUM 8.4 mg/dL (8.5-10.1); CREATININE 0.9 mg/dL (0.55-1.3); POTASSIUM 3.7 mmol/L (3.5-5.1); TOT PROT 6.8 g/dl (6.4-8.2)
--- NOTE | 2019-03-11 14:37 | PN ---
Progress Note, Physician History of Present Illness: S/P ATTEMPTED URETERAL STENT ILEOPSOAS CATHETER PLACED DEVELOPED GENERALIZED PRURITIS AFTER ZOSYN AWAKE, ALERT IN BED AFEBRILE WBC WNL - Current Medication List Current Medications: Active Medications Acetaminophen (Tylenol -) 650 mg PO Q6H PRN PRN Reason: PAIN LEVEL 1-5 Last Admin: 03/10/19 22:11 Dose: 325 mg Docusate Sodium (Colace -) 100 mg PO BID [facility] Last Admin: 03/11/19 11:40 Dose: Not Given Emollient Ointment (Aquaphor -) 1 applic TP DAILY [facility] Last Admin: 03/11/19 11:41 Dose: Not Given Fentanyl (Sublimaze Injection -) 50 mcg IVPUSH [id number] PRN PRN Reason: PAIN-PACU ORDER X 4 DOSES ONLY Piperacillin Sod/Tazobactam (Sod 3.375 gm/ Dextrose) 50 mls @ 100 mls/hr IVPB Q8H-IV [facility]; Protocol Last Admin: 03/11/19 11:38 Dose: 100 mls/hr Lactulose (Cephulac (Oral Use)) 20 gm PO TID PRN PRN Reason: CONSTIPATION Magnesium Hydroxide (Milk Of Magnesia -) 30 ml PO DAILY PRN PRN Reason: CONSTIPATION Last Admin: 02/13/19 09:41 Dose: 30 ml Methyl Salicylate (Osmar-Moreno -) 1 applic TP Q6H PRN PRN Reason: BACK PAIN Multivitamins/Minerals/Vitamin C (Tab-A-Vit -) 1 tab PO DAILY [facility] Last Admin: 03/11/19 11:40 Dose: Not Given Ondansetron HCl (Zofran Injection) 4 mg IVPUSH Q6H PRN PRN Reason: NAUSEA AND/OR VOMITING Oxycodone HCl (Roxicodone -) 10 mg PO Q4H PRN PRN Reason: PAIN LEVEL 6-10 Stop: 03/11/19 15:46 Pantoprazole Sodium (Protonix -) 40 mg PO DAILY [facility] Last Admin: 03/11/19 11:40 Dose: Not Given Povidone Iodine (Betadine 10% Solution -) 1 applic TP DAILY [facility] Last Admin: 03/11/19 11:40 Dose: 1 applic Promethazine HCl (Phenergan Injection -) 12.5 mg IVPUSH Q6H PRN PRN Reason: NAUSEA-FOR RESCUE AFTER 15 MIN Senna (Senna -) 2 tab PO HS [facility] Last Admin: 03/10/19 21:59 Dose: Not Given Simethicone (Mylicon -) 80 mg PO Q4H PRN PRN Reason: GAS Last Admin: 03/11/19 11:37 Dose: 80 mg - Objective Vital Signs: Vital Signs Temperature 98.5 F 03/11/19 11:35 Pulse Rate 70 03/11/19 11:35 Respiratory Rate 17 03/11/19 11:35 Blood Pressure 115/60 03/11/19 11:35 O2 Sat by Pulse Oximetry (%) 98 03/10/19 17:15 Constitutional: Yes: No Distress Eyes: Yes: Conjunctiva Clear Cardiovascular: Yes: Regular Rate and Rhythm, S1, S2 Respiratory: Yes: CTA Bilaterally Gastrointestinal: Yes: Normal Bowel Sounds, Soft, Other (ABDOMEN DISTENDED ERYTHEMA L GROIN AREA NEARLY ALL RESOLVED). No: Tenderness Genitourinary: Yes: Other (+ PINZON CATHETER, L PCN) Labs: CBC, BMP 03/11/19 12:00 03/11/19 12:00 INR, PTT INR 1.07 (0.83-1.09) 02/09/19 00:05 Assessment/Plan CELLULITIS L GROIN/FLANK NEARLY ALL RESOLVED CHRONIC L PSOAS COLLECTION S/P DRAINAGE PARAPLEGIA S/P L PCN NEUROGENIC BLADDER/ INDWELLING PINZON ? ZOSYN ALLERGY D/C ZOSYN, OBSERVE OFF
--- NOTE | 2019-03-11 18:58 | OP ---
DATE OF OPERATION: 03/10/2019 PREOPERATIVE DIAGNOSIS: Left hydronephrosis, status post left percutaneous nephrostomy. POSTOPERATIVE DIAGNOSIS: Left hydronephrosis, status post left percutaneous nephrostomy, with impassable left upper ureteral stones. OPERATIVE PROCEDURE: Cystourethroscopy, stone basketing, attempted left retrograde pyelogram, left antegrade pyelogram and placement of Pelaez catheter. SURGEON: Tru Fitzgerald MD ANESTHESIA: General. DESCRIPTION OF PROCEDURE: Under the above-stated anesthesia, the patient was prepped and draped in the usual sterile manner. He was placed in the dorsal lithotomy position. Cystoscopy under direct vision revealed a normal anterior urethra. The prostatic urethra was wide open and continuous with the base of the bladder. A ridge was seen in the midportion of the bladder and another large bladder-like space was entered. This could be a diverticulum or his original bladder. Inspection of the upper bladder revealed severe inflammatory tissue on the base, mostly over the left ureteral orifice site. Multiple attempts at cannulation of the right or left ureteral orifice were unsuccessful. A 1-cm stone was seen at the base of the bladder. A stone basket was inserted, and the stone was removed and sent to Pathology. The patient has a left percutaneous nephrostomy tube. Therefore methylene blue was placed into his left renal pelvis via his left percutaneous tube. Attempts at localization of the ureteral orifice via the methylene blue discoloration were unsuccessful. Absolutely no traces of methylene blue were found in the bladder. Approximately 60 mL of methylene blue was placed into the left renal pelvis and 60 mL was then aspirated, with no trace found in his urinary bladder. Therefore, the bladder was emptied. The scope was removed. An 18-English Pelaez was placed. This was connected to a drainage bag. The patient tolerated the procedure well. He returned to the recovery room in stable condition. He will need to go to [facility] Department of Urology to undergo the 2nd portion of his left laser percutaneous nephrostomy and nephrolithotripsy. This was explained to the patient and the patient's mother, and they will do that after the holiday season. TRU FITZGERALD M.D. [id number]
[2019-03-11] MEDS: SENNOSIDES 8.6MG TABLET (FP) PO SCH (21:25)
[2019-03-11] MEDS: ACETAMINOPHEN 325 MG TABLET (FP) PO PRN (21:29)
[2019-03-12] MEDS: PANTOPRAZOLE 40 MG TABLET (FP) PO SCH (11:49)
[2019-03-12] MEDS: MULTIVITAMINS (DAILY MVI) TABLET (FP) PO SCH (11:50)
[2019-03-12] MEDS: DOCUSATE SODIUM 100 MG CAPSULE (FP) PO SCH ×2 (11:50→22:55)
[2019-03-12] MEDS: SIMETHICONE 80 MG TAB.CHEW (FP) PO PRN ×2 (11:50→22:54)
[2019-03-12] MEDS: MINERAL OIL/PET HY-PHL TOPICAL OINTMENT 454 GM JAR TP SCH (11:50)
[2019-03-12] MEDS: POVIDONE-IODINE 10% SOLN 118 ML BOTTLE TP SCH (11:50)
--- NOTE | 2019-03-12 13:09 | PN ---
Progress Note, Physician Chief Complaint: Abdominal Distention Paraplegia Neurogenic Bladder History of Present Illness: Previous notes and events reviewed awake and alert NAD afebrile YA drain LLQ with <25cc output noted L nephrotostomy tube draining urine no leukocytosis afebrile TLC to R side of neck - Current Medication List Current Medications: Active Medications Acetaminophen (Tylenol -) 650 mg PO Q6H PRN PRN Reason: PAIN LEVEL 1-5 Last Admin: 03/11/19 21:29 Dose: 650 mg Docusate Sodium (Colace -) 100 mg PO BID [facility] Last Admin: 03/12/19 11:50 Dose: 100 mg Emollient Ointment (Aquaphor -) 1 applic TP DAILY [facility] Last Admin: 03/12/19 11:50 Dose: Not Given Fentanyl (Sublimaze Injection -) 50 mcg IVPUSH [id number] PRN PRN Reason: PAIN-PACU ORDER X 4 DOSES ONLY Lactulose (Cephulac (Oral Use)) 20 gm PO TID PRN PRN Reason: CONSTIPATION Magnesium Hydroxide (Milk Of Magnesia -) 30 ml PO DAILY PRN PRN Reason: CONSTIPATION Last Admin: 02/13/19 09:41 Dose: 30 ml Methyl Salicylate (Osmar-Moreno -) 1 applic TP Q6H PRN PRN Reason: BACK PAIN Multivitamins/Minerals/Vitamin C (Tab-A-Vit -) 1 tab PO DAILY [facility] Last Admin: 03/12/19 11:50 Dose: 1 tab Ondansetron HCl (Zofran Injection) 4 mg IVPUSH Q6H PRN PRN Reason: NAUSEA AND/OR VOMITING Pantoprazole Sodium (Protonix -) 40 mg PO DAILY [facility] Last Admin: 03/12/19 11:49 Dose: 40 mg Povidone Iodine (Betadine 10% Solution -) 1 applic TP DAILY [facility] Last Admin: 03/12/19 11:50 Dose: 1 applic Promethazine HCl (Phenergan Injection -) 12.5 mg IVPUSH Q6H PRN PRN Reason: NAUSEA-FOR RESCUE AFTER 15 MIN Senna (Senna -) 2 tab PO HS [facility] Last Admin: 03/11/19 21:25 Dose: 2 tab Simethicone (Mylicon -) 80 mg PO Q4H PRN PRN Reason: GAS Last Admin: 03/12/19 11:50 Dose: 80 mg - Objective Vital Signs: Vital Signs Temperature 97.8 F 03/12/19 10:00 Pulse Rate 83 03/12/19 10:00 Respiratory Rate 18 03/12/19 10:00 Blood Pressure 113/75 03/12/19 10:00 O2 Sat by Pulse Oximetry (%) 98 03/11/19 21:00 Constitutional: Yes: No Distress, Calm Eyes: Yes: Conjunctiva Clear HENT: Yes: Atraumatic Cardiovascular: Yes: Regular Rate and Rhythm Respiratory: Yes: Regular, CTA Bilaterally Gastrointestinal: Yes: Normal Bowel Sounds, Soft, Distention Genitourinary: Yes: Pelaez Present, Other (L nephrotostomy tube) Musculoskeletal: Yes: Muscle Weakness Extremities: Yes: WNL Edema: No Integumentary: Yes: Other (YA drain LLQ) Wound/Incision: Yes: Dressing Dry and Intact Neurological: Yes: Alert, Oriented, Pre-Existing Deficit Psychiatric: Yes: Alert, Oriented Labs: CBC, BMP 03/11/19 12:00 03/11/19 12:00 INR, PTT INR 1.07 (0.83-1.09) 02/09/19 00:05 Problem List - Problems (1) Chronic indwelling Pelaez catheter Assessment/Plan: -2/2 neurogenic bladder -Urology on board Code(s): Z92.89 - PERSONAL HISTORY OF OTHER MEDICAL TREATMENT (2) Constipated Assessment/Plan: -GI consult -Senna, Colace -Soap Lesley enemas Code(s): K59.00 - CONSTIPATION, UNSPECIFIED Qualifiers: Constipation type: unspecified constipation type Qualified Code(s): K59.00 - Constipation, unspecified (3) UTI (urinary tract infection) Assessment/Plan: -ID consult -UA 3+ leuks, + nitrites, 1+ blood , 2+ protein -UC positive -observe off antibiotics -no leukocytosis -afebrile Code(s): N39.0 - URINARY TRACT INFECTION, SITE NOT SPECIFIED Qualifiers: Urinary tract infection type: site unspecified Hematuria presence: with hematuria Qualified Code(s): N39.0 - Urinary tract infection, site not specified; R31.9 - Hematuria, unspecified (4) COPD (chronic obstructive pulmonary disease) Assessment/Plan: -Bronchodilators -Keep SpO2 >90% -O2 via NC -Pulm on board Code(s): J44.9 - CHRONIC OBSTRUCTIVE PULMONARY DISEASE, UNSPECIFIED Qualifiers: COPD type: unspecified COPD Qualified Code(s): J44.9 - Chronic obstructive pulmonary disease, unspecified (5) Neurogenic bladder Assessment/Plan: -Urology on board Code(s): N31.9 - NEUROMUSCULAR DYSFUNCTION OF BLADDER, UNSPECIFIED (6) Weakness Assessment/Plan: -Fall risk precautions -PT Code(s): R53.1 - WEAKNESS (7) JOSE CRUZ (acute kidney injury) Assessment/Plan: -BUN/Cr 23.6/0.9 -monitor renal function -Renal consult Code(s): N17.9 - ACUTE KIDNEY FAILURE, UNSPECIFIED (8) MDRO (multiple drug resistant organisms) resistance Assessment/Plan: -contact precaution Code(s): Z16.35 - RESISTANCE TO MULTIPLE ANTIMICROBIAL DRUGS (9) Cellulitis of left abdominal wall Assessment/Plan: -ID on board -Surgical on board -no leukocytosis -afebrile -Abd/Pelvic CT scan shows increased size of a left iliopsoas fluid collection noted which is also now extends into left anterior pelvic wall -IR consult for percutaneous drainage of retroperitoneal abscess -BC neg -YA drain to LLQ, <25cc noted Code(s): L03.311 - CELLULITIS OF ABDOMINAL WALL (10) Bilateral hydronephrosis Assessment/Plan: -Urology on board -unsuccessful removal of left upper ureteral stone -Nephrostomy in place -possible to transfer to tertiary center at [facility] Code(s): N13.30 - UNSPECIFIED HYDRONEPHROSIS Assessment/Plan see problem list dvt ppx
[2019-03-12] MEDS: ACETAMINOPHEN 325 MG TABLET (FP) PO PRN (22:54)
[2019-03-12] MEDS: SENNOSIDES 8.6MG TABLET (FP) PO SCH (22:55)
[2019-03-13] MEDS: MULTIVITAMINS (DAILY MVI) TABLET (FP) PO SCH (12:10)
[2019-03-13] MEDS: PANTOPRAZOLE 40 MG TABLET (FP) PO SCH (12:10)
[2019-03-13] MEDS: MINERAL OIL/PET HY-PHL TOPICAL OINTMENT 454 GM JAR TP SCH (12:11)
[2019-03-13] MEDS: POVIDONE-IODINE 10% SOLN 118 ML BOTTLE TP SCH (12:11)
[2019-03-13] MEDS: DOCUSATE SODIUM 100 MG CAPSULE (FP) PO SCH ×2 (12:11→22:08)
--- NOTE | 2019-03-13 12:52 | PN ---
Progress Note, Physician Chief Complaint: Abdominal Distention Paraplegia Neurogenic Bladder History of Present Illness: Previous notes and events reviewed awake and alert NAD afebrile YA drain LLQ serous drainage L nephrotostomy tube draining urine no leukocytosis - Current Medication List Current Medications: Active Medications Acetaminophen (Tylenol -) 650 mg PO Q6H PRN PRN Reason: PAIN LEVEL 1-5 Last Admin: 03/12/19 22:54 Dose: 650 mg Docusate Sodium (Colace -) 100 mg PO BID [facility] Last Admin: 03/13/19 12:11 Dose: 100 mg Emollient Ointment (Aquaphor -) 1 applic TP DAILY [facility] Last Admin: 03/13/19 12:11 Dose: Not Given Fentanyl (Sublimaze Injection -) 50 mcg IVPUSH [id number] PRN PRN Reason: PAIN-PACU ORDER X 4 DOSES ONLY Lactulose (Cephulac (Oral Use)) 20 gm PO TID PRN PRN Reason: CONSTIPATION Magnesium Hydroxide (Milk Of Magnesia -) 30 ml PO DAILY PRN PRN Reason: CONSTIPATION Last Admin: 02/13/19 09:41 Dose: 30 ml Methyl Salicylate (Osmar-Moreno -) 1 applic TP Q6H PRN PRN Reason: BACK PAIN Multivitamins/Minerals/Vitamin C (Tab-A-Vit -) 1 tab PO DAILY [facility] Last Admin: 03/13/19 12:10 Dose: 1 tab Ondansetron HCl (Zofran Injection) 4 mg IVPUSH Q6H PRN PRN Reason: NAUSEA AND/OR VOMITING Pantoprazole Sodium (Protonix -) 40 mg PO DAILY [facility] Last Admin: 03/13/19 12:10 Dose: 40 mg Povidone Iodine (Betadine 10% Solution -) 1 applic TP DAILY [facility] Last Admin: 03/13/19 12:11 Dose: 1 applic Promethazine HCl (Phenergan Injection -) 12.5 mg IVPUSH Q6H PRN PRN Reason: NAUSEA-FOR RESCUE AFTER 15 MIN Senna (Senna -) 2 tab PO HS [facility] Last Admin: 03/12/19 22:55 Dose: Not Given Simethicone (Mylicon -) 80 mg PO Q4H PRN PRN Reason: GAS Last Admin: 03/12/19 22:54 Dose: 80 mg - Objective Vital Signs: Vital Signs Temperature 97.6 F 03/13/19 12:20 Pulse Rate 72 03/13/19 12:20 Respiratory Rate 18 03/13/19 12:20 Blood Pressure 124/73 03/13/19 12:20 O2 Sat by Pulse Oximetry (%) 98 03/12/19 09:00 Constitutional: Yes: No Distress, Calm Eyes: Yes: Conjunctiva Clear HENT: Yes: Atraumatic Neck: Yes: Other (TLC) Cardiovascular: Yes: Regular Rate and Rhythm Respiratory: Yes: Regular, CTA Bilaterally Gastrointestinal: Yes: Normal Bowel Sounds, Soft, Distention Genitourinary: Yes: Pelaez Present, Other (L nephrostomy tube) Musculoskeletal: Yes: Muscle Weakness Extremities: Yes: WNL Edema: No Integumentary: Yes: Other (LLQ YA tube) Wound/Incision: Yes: Dressing Dry and Intact Neurological: Yes: Alert, Oriented, Pre-Existing Deficit Psychiatric: Yes: Alert, Oriented Labs: CBC, BMP 03/11/19 12:00 03/11/19 12:00 INR, PTT INR 1.07 (0.83-1.09) 02/09/19 00:05 Problem List - Problems (1) Chronic indwelling Pelaez catheter Assessment/Plan: -2/2 neurogenic bladder -Urology on board Code(s): Z92.89 - PERSONAL HISTORY OF OTHER MEDICAL TREATMENT (2) Constipated Assessment/Plan: -GI consult -Senna, Colace -Soap Lesley enemas Code(s): K59.00 - CONSTIPATION, UNSPECIFIED Qualifiers: Constipation type: unspecified constipation type Qualified Code(s): K59.00 - Constipation, unspecified (3) UTI (urinary tract infection) Assessment/Plan: -ID consult -UA 3+ leuks, + nitrites, 1+ blood , 2+ protein -UC positive -observe off antibiotics -no leukocytosis -afebrile Code(s): N39.0 - URINARY TRACT INFECTION, SITE NOT SPECIFIED Qualifiers: Urinary tract infection type: site unspecified Hematuria presence: with hematuria Qualified Code(s): N39.0 - Urinary tract infection, site not specified; R31.9 - Hematuria, unspecified (4) COPD (chronic obstructive pulmonary disease) Assessment/Plan: -Bronchodilators -Keep SpO2 >90% -O2 via NC -Pulm on board Code(s): J44.9 - CHRONIC OBSTRUCTIVE PULMONARY DISEASE, UNSPECIFIED Qualifiers: COPD type: unspecified COPD Qualified Code(s): J44.9 - Chronic obstructive pulmonary disease, unspecified (5) Neurogenic bladder Assessment/Plan: -Urology on board Code(s): N31.9 - NEUROMUSCULAR DYSFUNCTION OF BLADDER, UNSPECIFIED (6) Weakness Assessment/Plan: -Fall risk precautions -PT Code(s): R53.1 - WEAKNESS (7) JOSE CRUZ (acute kidney injury) Assessment/Plan: -BUN/Cr 23.6/0.9 -monitor renal function -Renal consult Code(s): N17.9 - ACUTE KIDNEY FAILURE, UNSPECIFIED (8) MDRO (multiple drug resistant organisms) resistance Assessment/Plan: -contact precaution Code(s): Z16.35 - RESISTANCE TO MULTIPLE ANTIMICROBIAL DRUGS (9) Cellulitis of left abdominal wall Assessment/Plan: -ID on board -Surgical on board -no leukocytosis -afebrile -Abd/Pelvic CT scan shows increased size of a left iliopsoas fluid collection noted which is also now extends into left anterior pelvic wall -IR consult for percutaneous drainage of retroperitoneal abscess -BC neg -YA drain to LLQ Code(s): L03.311 - CELLULITIS OF ABDOMINAL WALL (10) Bilateral hydronephrosis Assessment/Plan: -Urology on board -unsuccessful removal of left upper ureteral stone -Nephrostomy in place -possible to transfer to tertiary center at [facility] Code(s): N13.30 - UNSPECIFIED HYDRONEPHROSIS Assessment/Plan see problem list dvt ppx
[2019-03-13] MEDS: LACTULOSE 20 GM/30 ML UDC (FOR ORAL USE ONLY) PO PRN (14:20)
[2019-03-13] MEDS: SIMETHICONE 80 MG TAB.CHEW (FP) PO PRN (22:07)
[2019-03-13] MEDS: ACETAMINOPHEN 325 MG TABLET (FP) PO PRN (22:07)
[2019-03-13] MEDS: SENNOSIDES 8.6MG TABLET (FP) PO SCH (22:08)
[2019-03-14 06:37] LABS: HEMATOCRIT 27.9 % (35.4-49); MCH 26.1 pg (25.7-33.7); MCHC 32.1 g/dl (32.0-35.9); MEAN CELL VOLUME 81.3 fl (80-96); MEAN PLT VOLUME 7.4 fl (7.5-11.1); PLATELET COUNT 182 K/MM3 (134-434); RBC 3.44 M/mm3 (4.00-5.60); RDW 19.1 % (11.9-15.9); WHITE BLOOD COUNT 6.2 K/mm3 (4.0-10.0)
[2019-03-14] MEDS ORDERED: PT OWN MED DRAWER 7, Y5N ONE (09:42)
[2019-03-14] MEDS: POVIDONE-IODINE 10% SOLN 118 ML BOTTLE TP SCH (11:20)
[2019-03-14] MEDS: PANTOPRAZOLE 40 MG TABLET (FP) PO SCH (11:20)
[2019-03-14] MEDS: DOCUSATE SODIUM 100 MG CAPSULE (FP) PO SCH ×2 (11:20→21:27)
[2019-03-14] MEDS: MINERAL OIL/PET HY-PHL TOPICAL OINTMENT 454 GM JAR TP SCH (11:20)
[2019-03-14] MEDS: MULTIVITAMINS (DAILY MVI) TABLET (FP) PO SCH (11:20)
--- NOTE | 2019-03-14 11:20 | PN ---
Progress Note, Physician Chief Complaint: Abdominal Distention Paraplegia Neurogenic Bladder History of Present Illness: Previous notes and events reviewed awake and alert NAD YA drain LLQ serous drainage 25cc L nephrotostomy tube draining urine no leukocytosis - Current Medication List Current Medications: Active Medications Acetaminophen (Tylenol -) 650 mg PO Q6H PRN PRN Reason: PAIN LEVEL 1-5 Last Admin: 03/13/19 22:07 Dose: 650 mg Docusate Sodium (Colace -) 100 mg PO BID [facility] Last Admin: 03/13/19 22:08 Dose: 100 mg Emollient Ointment (Aquaphor -) 1 applic TP DAILY [facility] Last Admin: 03/13/19 12:11 Dose: Not Given Fentanyl (Sublimaze Injection -) 50 mcg IVPUSH [id number] PRN PRN Reason: PAIN-PACU ORDER X 4 DOSES ONLY Lactulose (Cephulac (Oral Use)) 20 gm PO TID PRN PRN Reason: CONSTIPATION Last Admin: 03/13/19 14:20 Dose: 20 gm Magnesium Hydroxide (Milk Of Magnesia -) 30 ml PO DAILY PRN PRN Reason: CONSTIPATION Last Admin: 02/13/19 09:41 Dose: 30 ml Methyl Salicylate (Osmar-Moreno -) 1 applic TP Q6H PRN PRN Reason: BACK PAIN Multivitamins/Minerals/Vitamin C (Tab-A-Vit -) 1 tab PO DAILY [facility] Last Admin: 03/13/19 12:10 Dose: 1 tab Ondansetron HCl (Zofran Injection) 4 mg IVPUSH Q6H PRN PRN Reason: NAUSEA AND/OR VOMITING Pantoprazole Sodium (Protonix -) 40 mg PO DAILY [facility] Last Admin: 03/13/19 12:10 Dose: 40 mg Povidone Iodine (Betadine 10% Solution -) 1 applic TP DAILY [facility] Last Admin: 03/13/19 12:11 Dose: 1 applic Promethazine HCl (Phenergan Injection -) 12.5 mg IVPUSH Q6H PRN PRN Reason: NAUSEA-FOR RESCUE AFTER 15 MIN Senna (Senna -) 2 tab PO HS [facility] Last Admin: 03/13/19 22:08 Dose: 2 tab Simethicone (Mylicon -) 80 mg PO Q4H PRN PRN Reason: GAS Last Admin: 03/13/19 22:07 Dose: 80 mg - Objective Vital Signs: Vital Signs Temperature 97.6 F 03/13/19 14:00 Pulse Rate 78 03/14/19 06:00 Respiratory Rate 18 03/14/19 06:00 Blood Pressure 116/74 03/14/19 06:00 O2 Sat by Pulse Oximetry (%) 98 03/13/19 21:00 Constitutional: Yes: No Distress, Calm Eyes: Yes: Conjunctiva Clear HENT: Yes: Atraumatic Cardiovascular: Yes: Regular Rate and Rhythm Respiratory: Yes: Regular, CTA Bilaterally Gastrointestinal: Yes: Normal Bowel Sounds, Soft, Distention Genitourinary: Yes: Pelaez Present, Other (L nephrostomy tube) Musculoskeletal: Yes: Muscle Weakness Extremities: Yes: WNL Edema: No Wound/Incision: Yes: Dressing Dry and Intact Neurological: Yes: Alert, Oriented, Pre-Existing Deficit, Weakness Psychiatric: Yes: Alert, Oriented Labs: CBC, BMP 03/14/19 06:25 03/11/19 12:00 INR, PTT INR 1.07 (0.83-1.09) 02/09/19 00:05 Microbiology 03/07/19 15:10 Abscess Gram Stain - Final 03/07/19 15:10 Abscess Body Fluid Culture - Final Proteus Vulgaris Pseudomonas Aeruginosa Vr Ec Faecalis 03/07/19 15:10 Abscess Anaerobic Culture - Final NO ANAEROBES WERE ISOLATED 03/05/19 12:30 Urine - Urine Nephrostomy Tube Left Urine Culture - Final Proteus Mirabilis Pseudomonas Aeruginosa Vr Ec Faecalis 02/21/19 14:50 Abscess Gram Stain - Final 02/21/19 14:50 Abscess Body Fluid Culture - Final Pseudomonas Aeruginosa Vr Ec Faecalis Yeast Like Organism 02/21/19 14:50 Abscess Anaerobic Culture - Final 02/16/19 15:50 Urine - Urine Nephrostomy Tube Left Urine Culture - Final Proteus Mirabilis Pseudomonas Aeruginosa 02/15/19 19:25 Blood - Peripheral Venous Blood Culture - Final NO GROWTH AFTER 5 DAYS INCUBATION 02/15/19 19:10 Blood - Peripheral Venous Blood Culture - Final NO GROWTH AFTER 5 DAYS INCUBATION 02/15/19 18:30 Urine - Urine Pelaez Urine Culture - Final Proteus Mirabilis Vr Ec Faecalis 02/08/19 23:15 Blood - Peripheral Venous Blood Culture - Final NO GROWTH AFTER 5 DAYS INCUBATION 02/08/19 23:15 Blood - Peripheral Venous Blood Culture - Final NO GROWTH AFTER 5 DAYS INCUBATION 02/08/19 20:25 Urine - Urine - Catheterized Urine Culture - Final Proteus Mirabilis Vr Ec Faecalis Problem List - Problems (1) Chronic indwelling Pelaez catheter Assessment/Plan: -2/2 neurogenic bladder -Urology on board Code(s): Z92.89 - PERSONAL HISTORY OF OTHER MEDICAL TREATMENT (2) Constipated Assessment/Plan: -GI consult -Senna, Colace -Soap Lesley enemas Code(s): K59.00 - CONSTIPATION, UNSPECIFIED Qualifiers: Constipation type: unspecified constipation type Qualified Code(s): K59.00 - Constipation, unspecified (3) UTI (urinary tract infection) Assessment/Plan: -ID consult -UA 3+ leuks, + nitrites, 1+ blood , 2+ protein -UC positive -observe off antibiotics -no leukocytosis -afebrile Code(s): N39.0 - URINARY TRACT INFECTION, SITE NOT SPECIFIED Qualifiers: Urinary tract infection type: site unspecified Hematuria presence: with hematuria Qualified Code(s): N39.0 - Urinary tract infection, site not specified; R31.9 - Hematuria, unspecified (4) COPD (chronic obstructive pulmonary disease) Assessment/Plan: -Bronchodilators -Keep SpO2 >90% -O2 via NC -Pulm on board Code(s): J44.9 - CHRONIC OBSTRUCTIVE PULMONARY DISEASE, UNSPECIFIED Qualifiers: COPD type: unspecified COPD Qualified Code(s): J44.9 - Chronic obstructive pulmonary disease, unspecified (5) Neurogenic bladder Assessment/Plan: -Urology on board Code(s): N31.9 - NEUROMUSCULAR DYSFUNCTION OF BLADDER, UNSPECIFIED (6) Weakness Assessment/Plan: -Fall risk precautions -PT Code(s): R53.1 - WEAKNESS (7) JOSE CRUZ (acute kidney injury) Assessment/Plan: -BUN/Cr 23.6/0.9 -monitor renal function -Renal consult Code(s): N17.9 - ACUTE KIDNEY FAILURE, UNSPECIFIED (8) MDRO (multiple drug resistant organisms) resistance Assessment/Plan: -contact precaution Code(s): Z16.35 - RESISTANCE TO MULTIPLE ANTIMICROBIAL DRUGS (9) Cellulitis of left abdominal wall Assessment/Plan: -ID on board -Surgical on board -no leukocytosis -afebrile -Abd/Pelvic CT scan shows increased size of a left iliopsoas fluid collection noted which is also now extends into left anterior pelvic wall -IR consult for percutaneous drainage of retroperitoneal abscess -BC neg -YA drain to LLQ 25cc Code(s): L03.311 - CELLULITIS OF ABDOMINAL WALL (10) Bilateral hydronephrosis Assessment/Plan: -Urology on board -unsuccessful removal of left upper ureteral stone -Nephrostomy in place -possible to transfer to tertiary center at [facility] Code(s): N13.30 - UNSPECIFIED HYDRONEPHROSIS Assessment/Plan see problem list dvt ppx
[2019-03-14] MEDS: SENNOSIDES 8.6MG TABLET (FP) PO SCH (21:27)
--- NOTE | 2019-03-15 10:37 | DS ---
Physical Examination Vital Signs: Vital Signs Temperature 98.0 F 03/14/19 22:00 Pulse Rate 78 03/14/19 22:00 Respiratory Rate 18 03/14/19 22:00 Blood Pressure 110/65 03/14/19 22:00 O2 Sat by Pulse Oximetry (%) 98 03/14/19 21:00 Findings/Remarks: Laboratory Last Values WBC 6.2 K/mm3 (4.0-10.0) 03/14/19 06:25 Corrected WBC (auto) Cancelled 02/08/19 23:15 RBC 3.44 M/mm3 (4.00-5.60) L 03/14/19 06:25 Hgb 9.0 GM/dL (11.7-16.9) L 03/14/19 06:25 Hct 27.9 % (35.4-49) L 03/14/19 06:25 MCV 81.3 fl (80-96) 03/14/19 06:25 MCH 26.1 pg (25.7-33.7) 03/14/19 06:25 MCHC 32.1 g/dl (32.0-35.9) 03/14/19 06:25 RDW 19.1 % (11.9-15.9) H 03/14/19 06:25 Plt Count 182 K/MM3 (134-434) 03/14/19 06:25 MPV 7.4 fl (7.5-11.1) L 03/14/19 06:25 Absolute Neuts (auto) 4.7 K/mm3 (1.5-8.0) 03/11/19 12:00 Neutrophils % 77.4 % (42.8-82.8) 03/11/19 12:00 Lymphocytes % 11.8 % (8-40) D 03/11/19 12:00 Monocytes % 8.9 % (3.8-10.2) 03/11/19 12:00 Eosinophils % 1.4 % (0-4.5) 03/11/19 12:00 Basophils % 0.5 % (0-2.0) 03/11/19 12:00 Nucleated RBC % 0 % (0-0) 03/11/19 12:00 Manual Slide Review Cancelled 03/08/19 06:35 Platelet Estimate Normal 02/10/19 07:10 Platelet Comment Cancelled 02/08/19 23:15 PT with INR 12.60 SEC (9.7-13.0) 02/09/19 00:05 INR 1.07 (0.83-1.09) 02/09/19 00:05 VBG pH Cancelled 02/08/19 23:15 POC VBG pCO2 Cancelled 02/08/19 23:15 POC VBG pO2 Cancelled 02/08/19 23:15 VBG HCO3 Cancelled 02/08/19 23:15 VBG O2 Sat (Keegan) Cancelled 02/08/19 23:15 VBG Base Excess Cancelled 02/08/19 23:15 Sodium 140 mmol/L (136-145) 03/11/19 12:00 Potassium 3.7 mmol/L (3.5-5.1) 03/11/19 12:00 Chloride 110 mmol/L (98-107) H 03/11/19 12:00 Carbon Dioxide 25 mmol/L (21-32) 03/11/19 12:00 Anion Gap 5 MMOL/L (8-16) L 03/11/19 12:00 BUN 23.6 mg/dL (7-18) H 03/11/19 12:00 Creatinine 0.9 mg/dL (0.55-1.3) 03/11/19 12:00 Est GFR (CKD-EPI)AfAm 113.41 03/11/19 12:00 Est GFR (CKD-EPI)NonAf 97.85 03/11/19 12:00 Random Glucose 200 mg/dL (74-106) H 03/11/19 12:00 Lactic Acid 2.0 mmol/L (0.4-2.0) 02/09/19 00:35 Calcium 8.4 mg/dL (8.5-10.1) L 03/11/19 12:00 Phosphorus 3.5 mg/dL (2.5-4.9) 02/10/19 07:10 Magnesium 2.4 mg/dL (1.8-2.4) 02/10/19 07:10 Total Bilirubin 0.1 mg/dL (0.2-1) L 03/11/19 12:00 AST 9 U/L (15-37) L 03/11/19 12:00 ALT 20 U/L (13-61) 03/11/19 12:00 Alkaline Phosphatase 146 U/L (45-117) H 03/11/19 12:00 Troponin I < 0.02 ng/ml (0.00-0.05) 03/03/19 10:56 Total Protein 6.8 g/dl (6.4-8.2) 03/11/19 12:00 Albumin 2.4 g/dl (3.4-5.0) L 03/11/19 12:00 Thyroxine (T4) 8.2 ug/dl (4.5-13.9) 02/10/19 07:10 Urine Color Yellow 02/15/19 18:30 Urine Appearance Turbid 02/15/19 18:30 Urine pH > 9.0 (5.0-8.0) H 02/15/19 18:30 Ur Specific [place] 1.013 (1.010-1.035) 02/15/19 18:30 Urine Protein 2+ (NEGATIVE) H 02/15/19 18:30 Urine Glucose (UA) Negative (NEGATIVE) 02/15/19 18:30 Urine Ketones Negative (NEGATIVE) 02/15/19 18:30 Urine Blood Mod (NEGATIVE) 02/15/19 18:30 Urine Nitrite Positive (NEGATIVE) H 02/15/19 18:30 Urine Bilirubin Negative (NEGATIVE) 02/15/19 18:30 Urine Urobilinogen 0.2 mg/dL (0.2-1.0) 02/15/19 18:30 Ur Leukocyte Esterase Large (NEGATIVE) 02/15/19 18:30 Urine WBC (Auto) 1457.9 /hpf (0-5) 02/15/19 18:30 Urine RBC (Auto) 19.6 /hpf (0-4) 02/15/19 18:30 Urine Casts (Auto) 8 /lpf (0-8) 02/08/19 20:25 U Epithel Cells (Auto) 16.5 /HPF (0-5/HPF) 02/15/19 18:30 Urine Crystals (Auto) Triple phos /hpf 02/15/19 18:30 Urine Bacteria (Auto) 5704.5 /hpf (NEGATIVE) 02/15/19 18:30 Active Medications Generic Name Dose Route Start Last Admin Trade Name Freq PRN Reason Stop Dose Admin Acetaminophen 650 mg 02/11/19 23:11 03/13/19 22:07 Tylenol - PO 650 mg Q6H PRN Administration PAIN LEVEL 1-5 Docusate Sodium 100 mg 02/09/19 10:00 03/14/19 21:27 Colace - PO 100 mg BID [facility] Administration Emollient Ointment 1 applic 02/18/19 10:00 03/14/19 11:20 Aquaphor - TP Not Given DAILY [facility] Fentanyl 50 mcg 03/10/19 15:47 Sublimaze Injection - IVPUSH [id number] PRN PAIN-PACU ORDER X 4 DOSES ONLY Lactulose 20 gm 02/10/19 10:25 03/13/19 14:20 Cephulac (Oral Use) PO 20 gm TID PRN Administration CONSTIPATION Magnesium Hydroxide 30 ml 02/09/19 09:25 02/13/19 09:41 Milk Of Magnesia - PO 30 ml DAILY PRN Administration CONSTIPATION Methyl Salicylate 1 applic 02/09/19 09:25 Osmar-Moreno - TP Q6H PRN BACK PAIN Multivitamins/Minerals/Vitamin C 1 tab 02/09/19 10:00 03/14/19 11:20 Tab-A-Vit - PO 1 tab DAILY [facility] Administration Ondansetron HCl 4 mg 03/10/19 15:47 Zofran Injection IVPUSH Q6H PRN NAUSEA AND/OR VOMITING Pantoprazole Sodium 40 mg 02/14/19 10:45 03/14/19 11:20 Protonix - PO 40 mg DAILY [facility] Administration Povidone Iodine 1 applic 02/25/19 10:00 03/14/19 11:20 Betadine 10% Solution - TP 1 applic DAILY [facility] Administration Promethazine HCl 12.5 mg 03/10/19 15:47 Phenergan Injection - IVPUSH Q6H PRN NAUSEA-FOR RESCUE AFTER 15 MIN Senna 2 tab 02/09/19 22:00 03/14/19 21:27 Senna - PO 2 tab HS [facility] Administration Simethicone 80 mg 02/09/19 09:25 03/13/19 22:07 Mylicon - PO 80 mg Q4H PRN Administration GAS Microbiology 03/07/19 15:10 Abscess Gram Stain - Final 03/07/19 15:10 Abscess Body Fluid Culture - Final Proteus Vulgaris Pseudomonas Aeruginosa Vr Ec Faecalis 03/07/19 15:10 Abscess Anaerobic Culture - Final NO ANAEROBES WERE ISOLATED 03/05/19 12:30 Urine - Urine Nephrostomy Tube Left Urine Culture - Final Proteus Mirabilis Pseudomonas Aeruginosa Vr Ec Faecalis 02/21/19 14:50 Abscess Gram Stain - Final 02/21/19 14:50 Abscess Body Fluid Culture - Final Pseudomonas Aeruginosa Vr Ec Faecalis Yeast Like Organism 02/21/19 14:50 Abscess Anaerobic Culture - Final 02/16/19 15:50 Urine - Urine Nephrostomy Tube Left Urine Culture - Final Proteus Mirabilis Pseudomonas Aeruginosa 02/15/19 19:25 Blood - Peripheral Venous Blood Culture - Final NO GROWTH AFTER 5 DAYS INCUBATION 02/15/19 19:10 Blood - Peripheral Venous Blood Culture - Final NO GROWTH AFTER 5 DAYS INCUBATION 02/15/19 18:30 Urine - Urine Pinzon Urine Culture - Final Proteus Mirabilis Vr Ec Faecalis 02/08/19 23:15 Blood - Peripheral Venous Blood Culture - Final NO GROWTH AFTER 5 DAYS INCUBATION 02/08/19 23:15 Blood - Peripheral Venous Blood Culture - Final NO GROWTH AFTER 5 DAYS INCUBATION 02/08/19 20:25 Urine - Urine - Catheterized Urine Culture - Final Proteus Mirabilis Vr Ec Faecalis Constitutional: Yes: No Distress, Calm Eyes: Yes: Conjunctiva Clear HENT: Yes: Atraumatic Cardiovascular: Yes: Regular Rate and Rhythm Respiratory: Yes: Regular, CTA Bilaterally Gastrointestinal: Yes: Normal Bowel Sounds, Soft, Distention, Other (LLQ YA drain) Musculoskeletal: Yes: Muscle Weakness Extremities: Yes: WNL Edema: No Integumentary: Yes: Pressure Ulcer Wound/Incision: Yes: Well Approximated Neurological: Yes: Alert, Oriented, Pre-Existing Deficit, Weakness Psychiatric: Yes: Alert, Oriented Labs: CBC, BMP 03/14/19 06:25 03/11/19 12:00 Discharge Summary Problems reviewed: Yes Reason For Visit: CHRONIC INDWELLING PINZON CATHETER,UTI,CONSTIPATION Current Active Problems Cellulitis of left abdominal wall (Acute) Chronic indwelling Pinzon catheter (Acute) Constipated (Acute) Fever (Acute) Neurogenic bladder (Acute) UTI (urinary tract infection) (Acute) Hospital Course: - Problems (1) Chronic indwelling Pinzon catheter Assessment/Plan: -2/2 neurogenic bladder -Urology Consult-patient now requesting Dr Oro Code(s): Z92.89 - PERSONAL HISTORY OF OTHER MEDICAL TREATMENT (2) Constipated Assessment/Plan: -GI consult -Senna, Colace -Lactulose added to regimen -repeat FUA ordered -Iyrk-etf-rvs Code(s): K59.00 - CONSTIPATION, UNSPECIFIED Qualifiers: Constipation type: unspecified constipation type Qualified Code(s): K59.00 - Constipation, unspecified (3) UTI (urinary tract infection) Assessment/Plan: -ID consult -UA 3+ leuks, + nitrites, 1+ blood , 2+ protein -UC prelim positive -received Meropenem in ER -no leukocytosis -afebrile Code(s): N39.0 - URINARY TRACT INFECTION, SITE NOT SPECIFIED Qualifiers: Urinary tract infection type: site unspecified Hematuria presence: with hematuria Qualified Code(s): N39.0 - Urinary tract infection, site not specified; R31.9 - Hematuria, unspecified (4) COPD (chronic obstructive pulmonary disease) Assessment/Plan: -Bronchodilators -Keep SpO2 >90% -O2 via NC -Pulm consult Code(s): J44.9 - CHRONIC OBSTRUCTIVE PULMONARY DISEASE, UNSPECIFIED Qualifiers: COPD type: unspecified COPD Qualified Code(s): J44.9 - Chronic obstructive pulmonary disease, unspecified (5) Neurogenic bladder Assessment/Plan: -Urology consult -FC changed by Urology Code(s): N31.9 - NEUROMUSCULAR DYSFUNCTION OF BLADDER, UNSPECIFIED (6) Weakness Assessment/Plan: -Fall risk -PT Code(s): R53.1 - WEAKNESS (7) JOSE CRUZ (acute kidney injury) Assessment/Plan: -BUN/Cr 29.1/1.0 -monitor renal function -Renal consult Code(s): N17.9 - ACUTE KIDNEY FAILURE, UNSPECIFIED (8) MDRO (multiple drug resistant organisms) resistance Assessment/Plan: -contact precaution Code(s): Z16.35 - RESISTANCE TO MULTIPLE ANTIMICROBIAL DRUGS Health Concerns: 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 Goals: continue bactrim for 7 more days Condition: Stable - Instructions Diet, Activity, Other Instructions: see dr dudley in 2-3 weeks Follow up with Dr Mejia on 03/31/18 patient will go home with [facility] services to monitor wound and dressing changes Referrals: Leola Dudley MD [Primary Care Provider] - Disposition: [facility]NS/HOME HEALTH CARE - Home Medications Comprehensive Discharge Medication List: Ambulatory Orders Multivitamin [Multiple Vitamins] 1 tab PO DAILY 08/04/18 Acetaminophen [Tylenol .Regular Strength -] 650 mg PO Q6H PRN tablet 09/09/18 Docusate Sodium [Colace -] 100 mg PO BID capsule 09/09/18 Magnesium Hydrox 2400MG/30Ml [Milk of Magnesia -] 30 ml PO DAILY PRN cup Methyl Salicylate/Menthol Oint [Analgesic Seeley -] 1 applic TP Q6H PRN applic Sennosides [Senna -] 2 tab PO HS tablet 09/09/18 Simethicone [Mylicon -] 80 mg PO Q4H PRN tab.chew 09/09/18 Albuterol 0.083% Nebulizer Estrellita [Ventolin 0.083% Nebulizer Soln -] 1 amp NEB Q6H PRN amp 02/13/19 Mineral Oil/Pet Hy-Phl [Aquaphor -] 1 applic TP DAILY jar 03/02/19 Sulfamethoxazole/Trimethoprim [Bactrim DS -] 1 each PO BID #30 tablet 03/02/19
--- NOTE | 2019-03-15 12:18 | PROC ---
Procedure Note Procedure: triple lumen catheter was removed as requested by dr acharya. dressing applied the patient tolerated the procedure well.
[2019-03-15] MEDS: MULTIVITAMINS (DAILY MVI) TABLET (FP) PO SCH (13:23)
[2019-03-15] MEDS: PANTOPRAZOLE 40 MG TABLET (FP) PO SCH (13:23)
[2019-03-15] MEDS: POVIDONE-IODINE 10% SOLN 118 ML BOTTLE TP SCH (13:24)
[2019-03-15] MEDS: SIMETHICONE 80 MG TAB.CHEW (FP) PO PRN (13:24)
[2019-03-15] MEDS: DOCUSATE SODIUM 100 MG CAPSULE (FP) PO SCH ×2 (13:24→21:29)
[2019-03-15] MEDS: MINERAL OIL/PET HY-PHL TOPICAL OINTMENT 454 GM JAR TP SCH (13:24)
[2019-03-15] MEDS: SENNOSIDES 8.6MG TABLET (FP) PO SCH (21:28)
--- NOTE | 2019-03-16 09:20 | PN ---
Progress Note (short form) - Note Progress Note: PATIENT SEEN AND EXAMINED NO NEW EVENTS OVERNIGHT CENTRAL LINE REMOVED YESTERDAY AWAITING DISCHARGE PLANNING TO HOME WITH SERVICES CONTINUE CURRENT CARE Problem List - Problems (1) Chronic indwelling Pelaez catheter Code(s): Z92.89 - PERSONAL HISTORY OF OTHER MEDICAL TREATMENT (2) Constipated Code(s): K59.00 - CONSTIPATION, UNSPECIFIED Qualifiers: Constipation type: unspecified constipation type Qualified Code(s): K59.00 - Constipation, unspecified (3) Neurogenic bladder Code(s): N31.9 - NEUROMUSCULAR DYSFUNCTION OF BLADDER, UNSPECIFIED (4) UTI (urinary tract infection) Code(s): N39.0 - URINARY TRACT INFECTION, SITE NOT SPECIFIED Qualifiers: Urinary tract infection type: site unspecified Hematuria presence: with hematuria Qualified Code(s): N39.0 - Urinary tract infection, site not specified; R31.9 - Hematuria, unspecified (5) Acquired functional megacolon Code(s): K59.39 - OTHER MEGACOLON (6) Anemia Code(s): D64.9 - ANEMIA, UNSPECIFIED Qualifiers: Anemia type: iron deficiency Other causes of anemia: due to other specified chronic disease (7) COPD (chronic obstructive pulmonary disease) Code(s): J44.9 - CHRONIC OBSTRUCTIVE PULMONARY DISEASE, UNSPECIFIED Qualifiers: COPD type: unspecified COPD Qualified Code(s): J44.9 - Chronic obstructive pulmonary disease, unspecified (8) Decubitus ulcer Code(s): L89.90 - PRESSURE ULCER OF UNSPECIFIED SITE, UNSPECIFIED STAGE Qualifiers: Laterality: unspecified laterality (9) Paraplegia following spinal cord injury Code(s): G82.20 - PARAPLEGIA, UNSPECIFIED
[2019-03-16] MEDS ORDERED: PT OWN MED DRAWER 7, Y5N ONE (10:54)
[2019-03-16] MEDS: DOCUSATE SODIUM 100 MG CAPSULE (FP) PO SCH ×3 (10:59→21:16)
[2019-03-16] MEDS: MINERAL OIL/PET HY-PHL TOPICAL OINTMENT 454 GM JAR TP SCH (11:00)
[2019-03-16] MEDS: PANTOPRAZOLE 40 MG TABLET (FP) PO SCH (11:00)
[2019-03-16] MEDS: MULTIVITAMINS (DAILY MVI) TABLET (FP) PO SCH (11:00)
[2019-03-16] MEDS: POVIDONE-IODINE 10% SOLN 118 ML BOTTLE TP SCH (12:40)
[2019-03-16] MEDS: SIMETHICONE 80 MG TAB.CHEW (FP) PO PRN ×2 (13:07→21:21)
[2019-03-16] MEDS: SENNOSIDES 8.6MG TABLET (FP) PO SCH (21:16)
[2019-03-17] MEDS: MULTIVITAMINS (DAILY MVI) TABLET (FP) PO SCH (09:15)
[2019-03-17] MEDS: DOCUSATE SODIUM 100 MG CAPSULE (FP) PO SCH ×2 (09:15→22:35)
[2019-03-17] MEDS: MINERAL OIL/PET HY-PHL TOPICAL OINTMENT 454 GM JAR TP SCH (09:15)
[2019-03-17] MEDS: PANTOPRAZOLE 40 MG TABLET (FP) PO SCH (09:15)
[2019-03-17] MEDS: POVIDONE-IODINE 10% SOLN 118 ML BOTTLE TP SCH (09:16)
--- NOTE | 2019-03-17 10:32 | PN ---
Progress Note (short form) - Note Progress Note: PATIENT HAS BEEN DISCHARGED WITH AN OUTPATIENT FOLLOW UP WITH [facility] TO HAVE AN ELECTIVE INTERNALIZATION WITH DR AZAM HILTON. THIS SURGERY NEEDS TO BE DONE AT A TERTIARY CENTER DUE THE PATIENT'S COMPLICATED MEDICAL HISTORY. PATIENT REPORTS HIS PINZON IS LEAKING AND WOULD LIKE THAT REPLACED BEFORE HE LEAVES. Problem List - Problems (1) Chronic indwelling Pinzon catheter Code(s): Z92.89 - PERSONAL HISTORY OF OTHER MEDICAL TREATMENT (2) Constipated Code(s): K59.00 - CONSTIPATION, UNSPECIFIED Qualifiers: Constipation type: unspecified constipation type Qualified Code(s): K59.00 - Constipation, unspecified (3) Neurogenic bladder Code(s): N31.9 - NEUROMUSCULAR DYSFUNCTION OF BLADDER, UNSPECIFIED (4) UTI (urinary tract infection) Code(s): N39.0 - URINARY TRACT INFECTION, SITE NOT SPECIFIED Qualifiers: Urinary tract infection type: site unspecified Hematuria presence: with hematuria Qualified Code(s): N39.0 - Urinary tract infection, site not specified; R31.9 - Hematuria, unspecified (5) Acquired functional megacolon Code(s): K59.39 - OTHER MEGACOLON (6) Anemia Code(s): D64.9 - ANEMIA, UNSPECIFIED Qualifiers: Anemia type: iron deficiency Other causes of anemia: due to other specified chronic disease (7) COPD (chronic obstructive pulmonary disease) Code(s): J44.9 - CHRONIC OBSTRUCTIVE PULMONARY DISEASE, UNSPECIFIED Qualifiers: COPD type: unspecified COPD Qualified Code(s): J44.9 - Chronic obstructive pulmonary disease, unspecified (8) Decubitus ulcer Code(s): L89.90 - PRESSURE ULCER OF UNSPECIFIED SITE, UNSPECIFIED STAGE Qualifiers: Laterality: unspecified laterality (9) Paraplegia following spinal cord injury Code(s): G82.20 - PARAPLEGIA, UNSPECIFIED
--- NOTE | 2019-03-17 20:04 | PN ---
Progress Note (short form) - Note Progress Note: UROLOGY NOTE: Pt w/ b/l nephrolithiasis, L PCN and permanent hull claims that there is uriniferous drainage around hull catheter. PLAN: hull change to 18fr 20cc, good return. Will get urine C&S. Pt would like his left Percutaneous drain removed from iliopsoas space. Would recommend CT scan prior to removal. Pt has appointment with Urology department with [facility] on 04/01/2019 for poss percutaneous nephrolithotripsy.
[2019-03-17] MEDS: SENNOSIDES 8.6MG TABLET (FP) PO SCH (22:34)
[2019-03-17] MEDS: SIMETHICONE 80 MG TAB.CHEW (FP) PO PRN (22:35)
--- NOTE | 2019-03-18 09:45 | DS ---
Physical Examination Vital Signs: Vital Signs Temperature 98.3 F 03/17/19 16:30 Pulse Rate 71 03/17/19 22:00 Respiratory Rate 20 03/17/19 22:00 Blood Pressure 119/67 03/17/19 22:00 O2 Sat by Pulse Oximetry (%) 97 03/17/19 21:00 Findings/Remarks: patients pinzon changed by urology yesterday patient has an outpatient appointment with [facility] patient has a nephrostomy drain and YA drain to keep until change by Interventional Radiology Constitutional: Yes: No Distress Cardiovascular: Yes: Regular Rate and Rhythm Respiratory: Yes: CTA Bilaterally Gastrointestinal: Yes: Distention, Other (hard lower left quadrant drain minimal ) Renal/: Yes: Other (nephrostomy tube draining) Musculoskeletal: Yes: Muscle Weakness Neurological: Yes: Pre-Existing Deficit, Weakness ...Motor Strength: LLE, RLE Labs: CBC, BMP 03/14/19 06:25 03/11/19 12:00 Discharge Summary Problems reviewed: Yes Reason For Visit: CHRONIC INDWELLING PINZON CATHETER,UTI,CONSTIPATION Current Active Problems Cellulitis of left abdominal wall (Acute) Chronic indwelling Pinzon catheter (Acute) Constipated (Acute) Fever (Acute) Neurogenic bladder (Acute) UTI (urinary tract infection) (Acute) Procedures: Principal: ct scan with drains YA abdomen and nephrostomy Hospital Course: - Problems (1) Chronic indwelling Pinzon catheter Assessment/Plan: -2/2 neurogenic bladder -Urology Consult-patient now requesting Dr Oro Code(s): Z92.89 - PERSONAL HISTORY OF OTHER MEDICAL TREATMENT (2) Constipated Assessment/Plan: -GI consult -Senna, Colace -Lactulose added to regimen -repeat FUA ordered -[id number] Code(s): K59.00 - CONSTIPATION, UNSPECIFIED Qualifiers: Constipation type: unspecified constipation type Qualified Code(s): K59.00 - Constipation, unspecified (3) UTI (urinary tract infection) Assessment/Plan: -ID consult -UA 3+ leuks, + nitrites, 1+ blood , 2+ protein -UC prelim positive -received Meropenem in ER -no leukocytosis -afebrile Code(s): N39.0 - URINARY TRACT INFECTION, SITE NOT SPECIFIED Qualifiers: Urinary tract infection type: site unspecified Hematuria presence: with hematuria Qualified Code(s): N39.0 - Urinary tract infection, site not specified; R31.9 - Hematuria, unspecified (4) COPD (chronic obstructive pulmonary disease) Assessment/Plan: -Bronchodilators -Keep SpO2 >90% -O2 via NC -Pulm consult Code(s): J44.9 - CHRONIC OBSTRUCTIVE PULMONARY DISEASE, UNSPECIFIED Qualifiers: COPD type: unspecified COPD Qualified Code(s): J44.9 - Chronic obstructive pulmonary disease, unspecified (5) Neurogenic bladder Assessment/Plan: -Urology consult -FC changed by Urology Code(s): N31.9 - NEUROMUSCULAR DYSFUNCTION OF BLADDER, UNSPECIFIED (6) Weakness Assessment/Plan: -Fall risk -PT Code(s): R53.1 - WEAKNESS (7) JOSE CRUZ (acute kidney injury) Assessment/Plan: -BUN/Cr 29.1/1.0 -monitor renal function -Renal consult Code(s): N17.9 - ACUTE KIDNEY FAILURE, UNSPECIFIED (8) MDRO (multiple drug resistant organisms) resistance Assessment/Plan: -contact precaution Code(s): Z16.35 - RESISTANCE TO MULTIPLE ANTIMICROBIAL DRUGS Health Concerns: 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 Referrals: Leola Dudley MD [Primary Care Provider] - Disposition: VNS/HOME HEALTH CARE - Home Medications Comprehensive Discharge Medication List: Ambulatory Orders Multivitamin [Multiple Vitamins] 1 tab PO DAILY 08/04/18 Acetaminophen [Tylenol .Regular Strength -] 650 mg PO Q6H PRN tablet 09/09/18 Docusate Sodium [Colace -] 100 mg PO BID capsule 09/09/18 Magnesium Hydrox 2400MG/30Ml [Milk of Magnesia -] 30 ml PO DAILY PRN cup Methyl Salicylate/Menthol Oint [Analgesic Cypress -] 1 applic TP Q6H PRN applic Sennosides [Senna -] 2 tab PO HS tablet 09/09/18 Simethicone [Mylicon -] 80 mg PO Q4H PRN tab.chew 09/09/18 Albuterol 0.083% Nebulizer Estrellita [Ventolin 0.083% Nebulizer Soln -] 1 amp NEB Q6H PRN amp 02/13/19 Mineral Oil/Pet Hy-Phl [Aquaphor -] 1 applic TP DAILY jar 03/02/19 Sulfamethoxazole/Trimethoprim [Bactrim DS -] 1 each PO BID #30 tablet 03/02/19 Lactulose (Oral Use) [Cephulac -] 20 gm PO TID PRN #90 udc 03/18/19 Prescription Drug Monitoring Program (I-STOP) results: I-STOP reviewed and issues identified
--- NOTE | 2019-03-18 10:32 | PN ---
Progress Note (short form) - Note Progress Note: PATIENT HAS A HISTORY OF NON-COMPLIANCE AND WANTS TO DICTATE WHEN HE WANTS TESTS DONE. I EXPLAINED MANY TIMES ABOUT HIS SCREAMING AND PROFANITY TOWARDS MYSELF AND STAFF. I HAVE DISCUSSED WITH DR ADAME THE CHIEF HOSPITALIST THAT I CAN NO LONGER CARE FOR THIS PATIENT. I HAVE LOST THE ABILITY TO HELP JORDANA HILLS BECAUSE HE REFUSES MY ORDERS OF CARE. I HAVE ADVISED TO HIM THAT I WILL SIGNOFF THIS CASE AND REPORT THE CASE TO ADMISINSTRATION AND HAVE THE HOSPITALIST CARE FOR HIME HERE AT [facility]. ELAN NOLAN REAL ESTATE ASSET MANAGER IS AWARE AND IS SENDING CLERGY AND PSYCHIATRY TO SPEAK WITH THE PATIENT. I HAVE ADVISED JORDANA THAT HE FOLLOW WITH THE HOSPITAL CLINIC OUTPATIENT SO THAT THE PRIMARY TEAM HER HAS CONTINUITY OF CARE BOTH AT HOSPITAL AND OUTPATIENT SETTING. Problem List - Problems (1) Chronic indwelling Pelaez catheter Code(s): Z92.89 - PERSONAL HISTORY OF OTHER MEDICAL TREATMENT (2) Constipated Code(s): K59.00 - CONSTIPATION, UNSPECIFIED Qualifiers: Constipation type: unspecified constipation type Qualified Code(s): K59.00 - Constipation, unspecified (3) Neurogenic bladder Code(s): N31.9 - NEUROMUSCULAR DYSFUNCTION OF BLADDER, UNSPECIFIED (4) UTI (urinary tract infection) Code(s): N39.0 - URINARY TRACT INFECTION, SITE NOT SPECIFIED Qualifiers: Urinary tract infection type: site unspecified Hematuria presence: with hematuria Qualified Code(s): N39.0 - Urinary tract infection, site not specified; R31.9 - Hematuria, unspecified (5) Acquired functional megacolon Code(s): K59.39 - OTHER MEGACOLON (6) Anemia Code(s): D64.9 - ANEMIA, UNSPECIFIED Qualifiers: Anemia type: iron deficiency Other causes of anemia: due to other specified chronic disease (7) COPD (chronic obstructive pulmonary disease) Code(s): J44.9 - CHRONIC OBSTRUCTIVE PULMONARY DISEASE, UNSPECIFIED Qualifiers: COPD type: unspecified COPD Qualified Code(s): J44.9 - Chronic obstructive pulmonary disease, unspecified (8) Decubitus ulcer Code(s): L89.90 - PRESSURE ULCER OF UNSPECIFIED SITE, UNSPECIFIED STAGE Qualifiers: Laterality: unspecified laterality (9) Paraplegia following spinal cord injury Code(s): G82.20 - PARAPLEGIA, UNSPECIFIED
[2019-03-18] MEDS: PANTOPRAZOLE 40 MG TABLET (FP) PO SCH (11:42)
[2019-03-18] MEDS: LACTULOSE 20 GM/30 ML UDC (FOR ORAL USE ONLY) PO PRN ×2 (11:42→22:30)
[2019-03-18] MEDS: DOCUSATE SODIUM 100 MG CAPSULE (FP) PO SCH ×2 (11:42→22:30)
[2019-03-18] MEDS: MULTIVITAMINS (DAILY MVI) TABLET (FP) PO SCH (11:42)
[2019-03-18] MEDS: MINERAL OIL/PET HY-PHL TOPICAL OINTMENT 454 GM JAR TP SCH (11:43)
[2019-03-18] MEDS: POVIDONE-IODINE 10% SOLN 118 ML BOTTLE TP SCH (11:43)
[2019-03-18] MEDS: SIMETHICONE 80 MG TAB.CHEW (FP) PO PRN ×2 (11:43→22:31)
[2019-03-18] MEDS: SENNOSIDES 8.6MG TABLET (FP) PO SCH (22:30)
--- NOTE | 2019-03-19 08:32 | PN ---
Progress Note, Physician Chief Complaint: c/o abdominal distension and requesting SSE. Pt has been discharged and appealed his discharge - Current Medication List Current Medications: Active Medications Acetaminophen (Tylenol -) 650 mg PO Q6H PRN PRN Reason: PAIN LEVEL 1-5 Last Admin: 03/13/19 22:07 Dose: 650 mg Docusate Sodium (Colace -) 100 mg PO BID [facility] Last Admin: 03/18/19 22:30 Dose: 100 mg Emollient Ointment (Aquaphor -) 1 applic TP DAILY [facility] Last Admin: 03/18/19 11:43 Dose: Not Given Fentanyl (Sublimaze Injection -) 50 mcg IVPUSH [id number] PRN PRN Reason: PAIN-PACU ORDER X 4 DOSES ONLY Lactulose (Cephulac (Oral Use)) 20 gm PO TID PRN PRN Reason: CONSTIPATION Last Admin: 03/18/19 22:30 Dose: 20 gm Magnesium Hydroxide (Milk Of Magnesia -) 30 ml PO DAILY PRN PRN Reason: CONSTIPATION Last Admin: 02/13/19 09:41 Dose: 30 ml Methyl Salicylate (Osmar-Moreno -) 1 applic TP Q6H PRN PRN Reason: BACK PAIN Multivitamins/Minerals/Vitamin C (Tab-A-Vit -) 1 tab PO DAILY [facility] Last Admin: 03/18/19 11:42 Dose: 1 tab Ondansetron HCl (Zofran Injection) 4 mg IVPUSH Q6H PRN PRN Reason: NAUSEA AND/OR VOMITING Pantoprazole Sodium (Protonix -) 40 mg PO DAILY [facility] Last Admin: 03/18/19 11:42 Dose: 40 mg Povidone Iodine (Betadine 10% Solution -) 1 applic TP DAILY [facility] Last Admin: 03/18/19 11:43 Dose: 1 applic Promethazine HCl (Phenergan Injection -) 12.5 mg IVPUSH Q6H PRN PRN Reason: NAUSEA-FOR RESCUE AFTER 15 MIN Senna (Senna -) 2 tab PO HS [facility] Last Admin: 03/18/19 22:30 Dose: 2 tab Simethicone (Mylicon -) 80 mg PO Q4H PRN PRN Reason: GAS Last Admin: 03/18/19 22:31 Dose: 80 mg - Objective Vital Signs: Vital Signs Temperature 98.1 F 03/18/19 16:30 Pulse Rate 79 03/19/19 06:12 Respiratory Rate 20 03/18/19 22:00 Blood Pressure 99/70 03/19/19 06:12 O2 Sat by Pulse Oximetry (%) 95 03/18/19 21:00 Constitutional: Yes: Well Nourished, No Distress, Calm Eyes: Yes: WNL, Conjunctiva Clear HENT: Yes: WNL, Atraumatic, Normocephalic Neck: Yes: WNL, Supple, Trachea Midline Cardiovascular: Yes: WNL, Regular Rate and Rhythm Respiratory: Yes: Regular, CTA Bilaterally, Diminished (at bases) Gastrointestinal: Yes: Distention, Hypoactive Bowel Sounds, Tenderness (to LLQ) ...Rectal Exam: Yes: Deferred Genitourinary: Yes: Hull Present (urine turbid) Breast(s): Yes: WNL Musculoskeletal: Yes: Other (paralplegia) Extremities: Yes: Other (lower extremeties withmuscle wasting) Edema: No Peripheral Pulses WNL: Yes Peripheral Pulses: Left Radial: 2+, Right Radial: 2+, Left Doralis Pedis: 2+, Right Dorsalis Pedis: 2+, Left Femoral: 2+, Right Femoral: 2+ Integumentary: Yes: WNL Neurological: Yes: WNL, Alert, Oriented ...Motor Strength: LLE, RLE (paraplegia) Labs: CBC, BMP 03/14/19 06:25 03/11/19 12:00 INR, PTT INR 1.07 (0.83-1.09) 02/09/19 00:05 Problem List - Problems (1) Chronic indwelling Hull catheter Assessment/Plan: urine turbid in color-with chonic UTI ua resent hull changed by urology outpatient appointment with [facility] patient has a nephrostomy drain and YA drain to keep until change by Interventional Radiology Code(s): Z92.89 - PERSONAL HISTORY OF OTHER MEDICAL TREATMENT (2) Constipated Assessment/Plan: with markedy abd distension AXR done and is unchanged from previous started on mirilax SSE as per pt request Code(s): K59.00 - CONSTIPATION, UNSPECIFIED Qualifiers: Constipation type: unspecified constipation type Qualified Code(s): K59.00 - Constipation, unspecified (3) Neurogenic bladder Assessment/Plan: chronic indwelling cath Code(s): N31.9 - NEUROMUSCULAR DYSFUNCTION OF BLADDER, UNSPECIFIED (4) UTI (urinary tract infection) Assessment/Plan: chronic UTIs Code(s): N39.0 - URINARY TRACT INFECTION, SITE NOT SPECIFIED Qualifiers: Urinary tract infection type: site unspecified Hematuria presence: with hematuria Qualified Code(s): N39.0 - Urinary tract infection, site not specified; R31.9 - Hematuria, unspecified (5) COPD (chronic obstructive pulmonary disease) Code(s): J44.9 - CHRONIC OBSTRUCTIVE PULMONARY DISEASE, UNSPECIFIED Qualifiers: COPD type: unspecified COPD Qualified Code(s): J44.9 - Chronic obstructive pulmonary disease, unspecified (6) Weakness Code(s): R53.1 - WEAKNESS (7) Prophylactic measure Code(s): Z29.9 - ENCOUNTER FOR PROPHYLACTIC MEASURES, UNSPECIFIED (8) Severe protein-calorie malnutrition Code(s): E43 - UNSPECIFIED SEVERE PROTEIN-CALORIE MALNUTRITION (9) Paraplegia following spinal cord injury Assessment/Plan: cont with PT turn and reposition Code(s): G82.20 - PARAPLEGIA, UNSPECIFIED Visit type - Emergency Visit Emergency Visit: Yes ED Registration Date: 02/09/19 Care time: The patient presented to the Emergency Department on the above date and was hospitalized for further evaluation of their emergent condition. - New Patient This patient is new to me today: Yes Date on this admission: 03/19/19 - Critical Care Critical Care patient: No - Discharge Referral Referred to [facility] Med P.C.: No
[2019-03-19] MEDS ORDERED: PT OWN MED DRAWER 7, Y5N ONE (10:14)
[2019-03-19] MEDS: POLYETHYLENE GLYCOL 3350 119 GM BTL PO SCH ×2 (10:23→10:36)
[2019-03-19] MEDS: DOCUSATE SODIUM 100 MG CAPSULE (FP) PO SCH ×2 (10:23→21:16)
[2019-03-19] MEDS: MULTIVITAMINS (DAILY MVI) TABLET (FP) PO SCH (10:23)
[2019-03-19] MEDS: PANTOPRAZOLE 40 MG TABLET (FP) PO SCH (10:25)
[2019-03-19] MEDS: LACTULOSE 20 GM/30 ML UDC (FOR ORAL USE ONLY) PO PRN (10:38)
[2019-03-19] MEDS: SIMETHICONE 80 MG TAB.CHEW (FP) PO PRN ×2 (10:39→21:39)
[2019-03-19] MEDS: POVIDONE-IODINE 10% SOLN 118 ML BOTTLE TP SCH (12:15)
[2019-03-19] MEDS: MINERAL OIL/PET HY-PHL TOPICAL OINTMENT 454 GM JAR TP SCH (14:32)
[2019-03-19 15:31] LABS: URINE APPEARANCE TURBID; URINE BILIRUBIN NEGATIVE (NEGATIVE); URINE COLOR YELLOW; URINE GLUCOSE (UA) NEGATIVE (NEGATIVE); URINE KETONE NEGATIVE (NEGATIVE)
[2019-03-19 15:32] LABS: PH,URINE >= 9.0 (5.0-8.0); URINE LEUK ESTERASE 3+ (NEGATIVE); URINE NITRITE POSITIVE (NEGATIVE); URINE PROTEIN 3+ (NEGATIVE); URINE RBC 15-20 /hpf (0-4); URINE UROBILINOGEN 0.2 mg/dL (0.2-1.0)
[2019-03-19 15:33] LABS: HYALINE CASTS 0 /lpf (0-8); URINE BACTERIA MODERATE /hpf (NEGATIVE)
[2019-03-19 15:36] LABS: URINE CRYSTALS MODERATE /hpf
[2019-03-19 15:37] LABS: EPI CELLS 0-5 /HPF (0-5/HPF)
[2019-03-19] MEDS: SENNOSIDES 8.6MG TABLET (FP) PO SCH (21:16)
[2019-03-20 09:12] LABS: BASO % 0.6 % (0-2.0); EOS % 4.4 % (0-4.5); HEMATOCRIT 31.5 % (35.4-49); HEMOGLOBIN 9.9 GM/dL (11.7-16.9); LYMPH % 22.2 % (8-40); MCHC 31.4 g/dl (32.0-35.9); MEAN CELL VOLUME 79.8 fl (80-96); MONO % 9.8 % (3.8-10.2); PLATELET COUNT 234 K/MM3 (134-434); RBC 3.95 M/mm3 (4.00-5.60); RDW 18.9 % (11.9-15.9); WHITE BLOOD COUNT 6.5 K/mm3 (4.0-10.0)
[2019-03-20 10:02] LABS: ALBUMIN 2.9 g/dl (3.4-5.0); BILIRUBIN,TOTAL 0.3 mg/dL (0.2-1); BLOOD UREA NITROGEN 24.6 mg/dL (7-18); CALCIUM 8.8 mg/dL (8.5-10.1); CREATININE 0.7 mg/dL (0.55-1.3); MAGNESIUM 2.3 mg/dL (1.8-2.4); POTASSIUM 4.1 mmol/L (3.5-5.1); TOT PROT 7.5 g/dl (6.4-8.2)
[2019-03-20] MEDS ORDERED: PT OWN MED DRAWER 7, Y5N ONE (10:19)
[2019-03-20] MEDS: POLYETHYLENE GLYCOL 3350 119 GM BTL PO SCH (10:28)
[2019-03-20] MEDS: PANTOPRAZOLE 40 MG TABLET (FP) PO SCH (10:29)
[2019-03-20] MEDS: MULTIVITAMINS (DAILY MVI) TABLET (FP) PO SCH (10:29)
[2019-03-20] MEDS: MINERAL OIL/PET HY-PHL TOPICAL OINTMENT 454 GM JAR TP SCH (10:29)
[2019-03-20] MEDS: DOCUSATE SODIUM 100 MG CAPSULE (FP) PO SCH ×2 (10:30→21:29)
[2019-03-20] MEDS: LACTULOSE 20 GM/30 ML UDC (FOR ORAL USE ONLY) PO PRN ×2 (10:39→22:40)
[2019-03-20] MEDS: SIMETHICONE 80 MG TAB.CHEW (FP) PO PRN ×2 (10:39→22:40)
[2019-03-20] MEDS: POVIDONE-IODINE 10% SOLN 118 ML BOTTLE TP SCH (12:10)
--- NOTE | 2019-03-20 16:06 | PN ---
Progress Note, Physician Chief Complaint: abdominal distension persists -requesting manual disimpaction Pt has been discharged and appealed his discharge - Current Medication List Current Medications: Active Medications Acetaminophen (Tylenol -) 650 mg PO Q6H PRN PRN Reason: PAIN LEVEL 1-5 Last Admin: 03/13/19 22:07 Dose: 650 mg Docusate Sodium (Colace -) 100 mg PO BID [facility] Last Admin: 03/20/19 10:30 Dose: 100 mg Emollient Ointment (Aquaphor -) 1 applic TP DAILY [facility] Last Admin: 03/20/19 10:29 Dose: Not Given Fentanyl (Sublimaze Injection -) 50 mcg IVPUSH [id number] PRN PRN Reason: PAIN-PACU ORDER X 4 DOSES ONLY Lactulose (Cephulac (Oral Use)) 20 gm PO TID PRN PRN Reason: CONSTIPATION Last Admin: 03/20/19 10:39 Dose: 20 gm Magnesium Hydroxide (Milk Of Magnesia -) 30 ml PO DAILY PRN PRN Reason: CONSTIPATION Last Admin: 02/13/19 09:41 Dose: 30 ml Methyl Salicylate (Osmar-Moreno -) 1 applic TP Q6H PRN PRN Reason: BACK PAIN Multivitamins/Minerals/Vitamin C (Tab-A-Vit -) 1 tab PO DAILY [facility] Last Admin: 03/20/19 10:29 Dose: 1 tab Ondansetron HCl (Zofran Injection) 4 mg IVPUSH Q6H PRN PRN Reason: NAUSEA AND/OR VOMITING Pantoprazole Sodium (Protonix -) 40 mg PO DAILY [facility] Last Admin: 03/20/19 10:29 Dose: 40 mg Polyethylene Glycol (Miralax (For Daily Use) -) 17 gm PO DAILY [facility] Last Admin: 03/20/19 10:28 Dose: 17 gm Povidone Iodine (Betadine 10% Solution -) 1 applic TP DAILY [facility] Last Admin: 03/19/19 12:15 Dose: 1 applic Promethazine HCl (Phenergan Injection -) 12.5 mg IVPUSH Q6H PRN PRN Reason: NAUSEA-FOR RESCUE AFTER 15 MIN Senna (Senna -) 2 tab PO HS [facility] Last Admin: 03/19/19 21:16 Dose: 2 tab Simethicone (Mylicon -) 80 mg PO Q4H PRN PRN Reason: GAS Last Admin: 03/20/19 10:39 Dose: 80 mg - Objective Vital Signs: Vital Signs Temperature 98.4 F 03/20/19 10:25 Pulse Rate 65 03/20/19 10:25 Respiratory Rate 03/20/19 10:25 Blood Pressure 100/60 03/20/19 10:25 O2 Sat by Pulse Oximetry (%) 95 03/18/19 21:00 Additional Findings/Remarks: Constitutional: Yes: Well Nourished, No Distress, Calm Eyes: Yes: WNL, Conjunctiva Clear HENT: Yes: WNL, Atraumatic, Normocephalic Neck: Yes: WNL, Supple, Trachea Midline Cardiovascular: Yes: WNL, Regular Rate and Rhythm Respiratory: Yes: Regular, CTA Bilaterally, Diminished (at bases) Gastrointestinal: Yes: Distention, Hypoactive Bowel Sounds, Tenderness (to LLQ) ...Rectal Exam: Yes: Deferred Genitourinary: Yes: Hull Present (urine turbid) Breast(s): Yes: WNL Musculoskeletal: Yes: Other (paralplegia) Extremities: Yes: Other (lower extremeties withmuscle wasting) Edema: No Peripheral Pulses WNL: Yes Peripheral Pulses: Left Radial: 2+, Right Radial: 2+, Left Doralis Pedis: 2+, Right Dorsalis Pedis: 2+, Left Femoral: 2+, Right Femoral: 2+ Integumentary: Yes: WNL Neurological: Yes: WNL, Alert, Oriented ...Motor Strength: LLE, RLE (paraplegia) Labs: CBC, BMP 03/20/19 07:30 03/20/19 07:30 INR, PTT INR 1.07 (0.83-1.09) 02/09/19 00:05 Problem List - Problems (1) Chronic indwelling Hull catheter Assessment/Plan: urine turbid in color-with chonic UTI ua resent hull changed by urology outpatient appointment with [facility] patient has a nephrostomy drain and YA drain to keep until change by Interventional Radiology Code(s): Z92.89 - PERSONAL HISTORY OF OTHER MEDICAL TREATMENT (2) Constipated Assessment/Plan: with markedy abd distension AXR done and is unchanged from previous started on mirilax SSE daily,had moderate BM today and yesterday encouraged pt to drink to stay hydrated Code(s): K59.00 - CONSTIPATION, UNSPECIFIED Qualifiers: Constipation type: unspecified constipation type Qualified Code(s): K59.00 - Constipation, unspecified (3) Neurogenic bladder Assessment/Plan: chronic indwelling cath Code(s): N31.9 - NEUROMUSCULAR DYSFUNCTION OF BLADDER, UNSPECIFIED (4) UTI (urinary tract infection) Assessment/Plan: chronic UTIs Code(s): N39.0 - URINARY TRACT INFECTION, SITE NOT SPECIFIED Qualifiers: Urinary tract infection type: site unspecified Hematuria presence: with hematuria Qualified Code(s): N39.0 - Urinary tract infection, site not specified; R31.9 - Hematuria, unspecified (5) COPD (chronic obstructive pulmonary disease) Code(s): J44.9 - CHRONIC OBSTRUCTIVE PULMONARY DISEASE, UNSPECIFIED Qualifiers: COPD type: unspecified COPD Qualified Code(s): J44.9 - Chronic obstructive pulmonary disease, unspecified (6) Weakness Code(s): R53.1 - WEAKNESS (7) Prophylactic measure Code(s): Z29.9 - ENCOUNTER FOR PROPHYLACTIC MEASURES, UNSPECIFIED (8) Severe protein-calorie malnutrition Code(s): E43 - UNSPECIFIED SEVERE PROTEIN-CALORIE MALNUTRITION (9) Paraplegia following spinal cord injury Assessment/Plan: cont with PT turn and reposition Code(s): G82.20 - PARAPLEGIA, UNSPECIFIED Visit type - Emergency Visit Emergency Visit: Yes ED Registration Date: 02/09/19 Care time: The patient presented to the Emergency Department on the above date and was hospitalized for further evaluation of their emergent condition. - New Patient This patient is new to me today: No - Critical Care Critical Care patient: No - Discharge Referral Referred to [facility] Med P.C.: No
[2019-03-20] MEDS: SENNOSIDES 8.6MG TABLET (FP) PO SCH (21:29)
[2019-03-21] MEDS: MULTIVITAMINS (DAILY MVI) TABLET (FP) PO SCH (10:03)
[2019-03-21] MEDS: POVIDONE-IODINE 10% SOLN 118 ML BOTTLE TP SCH (10:03)
[2019-03-21] MEDS: PANTOPRAZOLE 40 MG TABLET (FP) PO SCH (10:04)
[2019-03-21] MEDS: POLYETHYLENE GLYCOL 3350 119 GM BTL PO SCH (10:04)
[2019-03-21] MEDS: DOCUSATE SODIUM 100 MG CAPSULE (FP) PO SCH (10:04)
[2019-03-21] MEDS: MINERAL OIL/PET HY-PHL TOPICAL OINTMENT 454 GM JAR TP SCH (15:54)
[2019-03-21] MEDS: LACTULOSE 20 GM/30 ML UDC (FOR ORAL USE ONLY) PO PRN (15:55)
[2019-03-21] MEDS: SIMETHICONE 80 MG TAB.CHEW (FP) PO PRN (15:55)
[2019-03-21 16:04] VITALS: BP 100/70; PULSE 72; TEMP 97.6
== END 2019-03-21 15:58 | disposition home health service (06) | DRG 698 ==
LOC: JER 19:32 → JERBED 02-09 08:48 → J8W 02-09 15:35
PROVIDERS: ADMIT Family Medicine; ATTEND Nurse Practitioner Acute Care
PROC: 0W9H30Z Drainage of Retroperitoneum with Drainage Device, Percutaneous Approach (ICD-10-PCS; principal; 2019-02-21)
PROC: 0T25X0Z Change Drainage Device in Kidney, External Approach (ICD-10-PCS; 2019-02-21)
PROC: 0W9H30Z Drainage of Retroperitoneum with Drainage Device, Percutaneous Approach (ICD-10-PCS; 2019-03-07)
PROC: 02HV33Z Insertion of Infusion Device into Superior Vena Cava, Percutaneous Approach (ICD-10-PCS; 2019-03-07)
PROC: 0TCB8ZZ Extirpation of Matter from Bladder, Via Natural or Artificial Opening Endoscopic (ICD-10-PCS; 2019-03-10)
DX: T83.511A Infection and inflammatory reaction due to indwelling urethral catheter, initial encounter (principal); K68.12 Psoas muscle abscess; K68.19 Other retroperitoneal abscess; N13.39 Other hydronephrosis; L03.311 Cellulitis of abdominal wall; G82.20 Paraplegia, unspecified; Z16.35 Resistance to multiple antimicrobial drugs; N17.9 Acute kidney failure, unspecified; N39.0 Urinary tract infection, site not specified; N31.9 Neuromuscular dysfunction of bladder, unspecified; K56.41 Fecal impaction; Z92.89 Personal history of other medical treatment; J44.9 Chronic obstructive pulmonary disease, unspecified; L89.152 Pressure ulcer of sacral region, stage 2; L89.312 Pressure ulcer of right buttock, stage 2; L89.322 Pressure ulcer of left buttock, stage 2; D72.829 Elevated white blood cell count, unspecified; K59.00 Constipation, unspecified; F17.210 Nicotine dependence, cigarettes, uncomplicated; Y83.9 Surgical procedure, unspecified as the cause of abnormal reaction of the patient, or of later complication, without mention of misadventure at the time of the procedure
CPT/HCPCS: 36415; 36556; 49406; 50431; 50435; 71045-TC-FY; 74018-TC-FY; 74019-TC-FY; 74176-TC; 74425-TC-FY; 76000-TC-FY; 76098-TC-FY; 76380-TC; 77001-TC-FY; 80048; 80053; 81003; 82360; 83605; 83735; 84100; 84436; 84484; 85025; 85027; 85610; 87040; 87070; 87075; 87086; 87184; 87186; 87205; 87899; 93005; 93010; 94760; 97161-GP; 99284-25; A4358; C1729; C1751; C1769; J1644